=== PATIENT | male | born 1975 | race Hispanic/Latino ===

== ENCOUNTER 2021-01-19 18:10 | Inpatient (IN) | payer MEDICAID, SELFPAY ==
--- NOTE | ~2021-01-19 | NM_ITS ---
EXAMINATION: NM mariah stress w perfusion DATE: 01/26/2021 12:00 INDICATION: Non-ST elevation myocardial infarction. TECHNIQUE: Rest images were obtained following intravenous administration of 9 mCi Tc99m tetrofosmin (Myoview). The patient was infused intravenously with Lexiscan (regadenoson). Then, 28 mCi Tc99m tetr ofosmin (Myoview) was administered intravenously, and stress images were obtained. Data was reconstru cted into short axis and horizontal and vertical long axis SPECT images. Gated SPECT images were also obtained. COMPARISON: CT abdomen and pelvis 01/19/2021 FINDINGS: There is a large, severe, fixed perfusion defect involving apical lateral and mid to basal anterolateral and inferolateral segments, consistent with infarct. No reversible component to suggest ischemia. There is no segmental wall motion abnormality. Left ventricular ejection fraction measur es 45%. IMPRESSION: 1. Large area of severe infarct involving apical lateral and mid to basal anterolateral and inferolat eral segments of left ventricle. 2. Left ventricular ejection fraction measuring 45%. Reviewed, dictated and finalized at location A. IMPRESSION: 1. Large area of severe infarct involving apical lateral and mid to basal anter olateral and inferolateral segments of left ventricle. 2. Left ventricular ejection fraction measuring 45%.
--- NOTE | ~2021-01-19 | XR_ITS ---
EXAMINATION: XR chest 2V DATE: 01/21/2021 09:29 INDICATION: Shortness of breath. TECHNIQUE: Frontal and lateral views of the chest were obtained. COMPARISON: CT abdomen and pelvis 01/19/2021 FINDINGS: There are moderate-sized pleural effusions. There are airspace opacities in all lung zones bilaterally with a perihilar and dependent predominance. No pneumothorax. The heart size is normal. IMPRESSION: 1. Moderate-sized pleural effusions. 2. Diffuse lung disease, likely a combination of atelectasis and pulmonary edema versus pneumonia. Reviewed, dictated and finalized at location A. IMPRESSION: 1. Moderate-sized pleural effusions. 2. Diffuse lung disease, likely a combination of atelectasis and pulmonary albin a versus pneumonia.
--- NOTE | ~2021-01-19 | US_ITS ---
EXAMINATION: US abdomen limited EXAM DATE: 01/31/2021 12:22 INDICATION: Abdominal pain, STAT paracentesis requested. TECHNIQUE: Multiple grayscale and Doppler images of the 4 abdominal quadrants were obtained (by a marcelina hnologist who performed the scan) and subsequently reviewed. There is no prior study for comparison. FINDINGS: No ascites demonstrated. IMPRESSION: No ascites demonstrated. Reviewed, dictated and finalized at location A. IMPRESSION: No ascites demonstrated.
--- NOTE | ~2021-01-19 | XR_ITS ---
EXAMINATION: XR chest 2V EXAM DATE: 01/31/2021 12:26 INDICATION: Shortness of breath. TECHNIQUE: Frontal and lateral projections of the chest obtained and reviewed. Comparison is made to prior examination from 01/24/2021. FINDINGS: Cardiomegaly and moderate bilateral subpulmonic pleural effusions not significantly change d. There is pulmonary vascular congestion, but interval improvement in the previously seen pulmonary edema. There is no pneumothorax suspected. There are no osseous abnormalities identified. IMPRESSION: 1. Cardiomegaly, congestion and mild pulmonary edema with interval improvement. 2. Moderate subpulmonic pleural effusions unchanged. Reviewed, dictated and finalized at location A. IMPRESSION: 1. Cardiomegaly, congestion and mild pulmonary edema with interval improvement . 2. Moderate subpulmonic pleural effusions unchanged.
--- NOTE | ~2021-01-19 | US_ITS ---
EXAMINATION: US biopsy renal DATE: 01/29/2021 13:26 INDICATION: Proteinuria. Elevated creatinine. Positive ROE. TECHNIQUE: The procedure including the risks, benefits, and alternatives was discussed with the patie nt via an vice president sales and marketing. Risks discussed included bleeding. The patient understood the risks and agreed to proceed. A timeout was performed to verify the patient's name, date of , and procedure to be performed. The skin overlying the left kidney was prepped and draped in usual sterile fashion. Anesthetic was administered with 1% lidocaine subcutaneously. An 18 gauge core biopsy needle was the n used to obtain 6 core biopsy specimens under continuous sonographic guidance. The entry site was cl eaned and dressed. There were no immediate complications. FINDINGS: Ultrasound images demonstrate the needle in the kidney. IMPRESSION: 1. Ultrasound-guided random left kidney core needle biopsy. Reviewed, dictated and finalized at location A.
--- NOTE | ~2021-01-19 | NM_ITS ---
EXAMINATION: NM GI bleeding DATE: 01/31/2021 20:36 INDICATION: Lower gastrointestinal bleed TECHNIQUE: 19.55 mCi Tc 99m in vitro labeled red cells administered intravenously. Scintigraphic maddie ges of the abdomen were obtained through hour. FINDINGS: No pattern of abnormal activity is seen in the abdomen or pelvis to suggest gastrointestina l hemorrhage. IMPRESSION: 1. No scintigraphic evidence for active gastrointestinal bleeding. Reviewed, dictated and finalized at location A.
--- NOTE | ~2021-01-19 | XR_ITS ---
EXAMINATION: XR chest 1V portable EXAM DATE: 01/24/2021 05:32 INDICATION: Follow-up pleural effusions pulmonary edema. TECHNIQUE: Portable AP frontal chest x-ray was obtained. Comparison is made to prior examination from 01/21/2021. FINDINGS: There is mild cardiomegaly. There are probably small to moderate bilateral subpulmonic pleu ral effusions with adjacent atelectasis. Diffuse bilateral airspace disease, edema and/or pneumonia, with progression compared to previous examination. No pneumothorax. There are no osseous abnormalitie s identified. IMPRESSION: Progression of subpulmonic pleural effusions and adjacent atelectasis with superimposed d iffuse bilateral edema and/or pneumonia. Reviewed, dictated and finalized at location A. IMPRESSION: Progression of subpulmonic pleural effusions and adjacent atelectas is with superimposed diffuse bilateral edema and/or pneumonia.
--- NOTE | ~2021-01-19 | US_ITS ---
EXAMINATION: US renal BI EXAM DATE: 01/21/2021 09:42 INDICATION: Elevated creatinine. TECHNIQUE: Multiple grayscale and Doppler images of the kidneys were obtained (by a technologist who performed the scan) and subsequently reviewed. There is no prior study for comparison. FINDINGS: Right kidney: There is normal contour and echogenicity. It measures 10.1 x 4.8 x 5.5 centimeters. T here are no focal renal lesions identified. There is no hydronephrosis. Left kidney: There is normal contour and echogenicity. It measures 11.9 x 5.3 x 7.3 centimeters. Th ere are no focal renal lesions identified. There is no hydronephrosis. Bladder unremarkable. Bilateral pleural effusions noted. IMPRESSION: 1. Sonographically unremarkable kidneys. 2. Bilateral pleural effusions. Reviewed, dictated and finalized at location B.
--- NOTE | ~2021-01-19 | CT_ITS ---
EXAMINATION: CT abdomen pelvis wo con EXAM DATE: 01/19/2021 22:09 INDICATION: Lower AP with diarrhea. TECHNIQUE: Spiral CT of the abdomen and pelvis was performed without contrast. Axial, coronal and s agittal images of the abdomen and pelvis were reviewed. The dose-length product (DLP) for this exami nation was 1364.44 mGy-cm. The exposure was tailored according to patient size (auto mA exposure con trol), and iterative reconstruction (ASIR) was used as additional dose reduction technique. There is no prior study for comparison. FINDINGS: Diffuse body wall edema, anasarca. There are moderate bilateral pleural effusions, right gr eater than left with multisegmental right lower lobe atelectasis and subsegmental left lower lobe ate lectasis. Some additional ill-defined bibasilar edema or pneumonia. The liver, spleen, adrenal glands and pancreas are unremarkable. The gallbladder is contracted but otherwise unremarkable. There is no nephrolithiasis or hydronephrosis. The prostate is unremarkable. The bladder is unremarkable. There is no retroperitoneal or pelvic lymphadenopathy. There is mild scattered arteriosclerotic dis ease. The appendix is normal. The stomach and small bowel are unremarkable. There is expected amount of c olonic stool. No free intraperitoneal gas. The interventricular septum is perceptible, suggesting patient is anemic. IMPRESSION: 1. No acute intra-abdominal findings. 2. Moderate pleural effusions right greater than left, adjacent atelectasis. Anasarca. 3. Superimposed ill-defined basilar edema or pneumonia. Reviewed, dictated and finalized at location B. IMPRESSION: 1. No acute intra-abdominal findings. 2. Moderate pleural effusions right greater than left, adjacent atelectasis. A nasarca. 3. Superimposed ill-defined basilar edema or pneumonia.
[2021-01-19 18:17] VITALS: BP 151/90; PULSE 79; RESP 22; TEMP 36.8; O2SAT 98
[2021-01-19 19:28] VITALS: BP 163/90; PULSE 78; RESP 36; O2SAT 100
[2021-01-19 19:38] LABS: Basophils Percent Auto 0.5 % (0.2-1.2); Eosinophils Absolute Auto 0.2 K/mm3 (0-0.3); Eosinophils Percent Auto 2.5 % (0-4.4); Hematocrit 29.9 % (42.0-52.0); Hemoglobin 8.8 g/dL (14.0-18.0); Immature Granulocyte Absolute 0.03 K/mm3 (0.00-0.031); Immature Granulocyte Percent A 0.4 % (0-0.5); Lymphocytes Absolute Auto 0.71 K/mm3 (0.9-3.2); Lymphocytes Percent Auto 8.5 % (18.3-44.2); Mean Corpuscular HGB Conc 29.4 g/dl (32-36); Mean Corpuscular Hemoglobin 26.5 pg (26-34); Mean Corpuscular Volume 90.1 fl (80-100); Mean Platelet Volume 11.2 fl (7.4-10.4); Monocytes Absolute Auto 0.5 K/mm3 (0.1-0.6); Monocytes Percent Auto 5.6 % (2.6-8.5); Neutrophils Absolute Auto 6.9 K/mm3 (1.3-6.7); Neutrophils Percent Auto 82.5 % (45.5-73.1); Platelet Count Result 361 k/mm3 (150-375); Red Blood Count 3.32 M/mm3 (4.6-6.20); Red Cell Distribution Width 14.1 % (11.5-14.5); White Blood Count 8.3 K/mm3 (4.5-10.0)
[2021-01-19 19:47] LABS: Alanine Aminotransferase 56 U/L (4-50); Albumin Level 2.7 g/dL (3.5-5.1); Alkaline Phosphatase 149 U/L (38-126); Anion Gap 6 mmol/L (8-16); Aspartate Amino Transferase 69 U/L (17-59); Bilirubin,Total < 0.1 mg/dL (0.2-1.3); Blood Urea Nitrogen 50 mg/dL (9-20); Calcium 8.2 mg/dL (8.4-10.2); Carbon Dioxide 19 mmol/L (22-30); Chloride 117 mmol/L (98-107); Estimated CRCL calculation 31 ml/min; Estimated Glomerular Filt Rate 22; Glucose 118 mg/dL (75-110); Lipase 161 U/L (23-300); Potassium 5.8 mmol/L (3.4-5.0); Sodium 142 mmol/L (137-145)
[2021-01-19 19:48] LABS: Platelet Estimate Adequate (Adequate)
[2021-01-19 19:49] LABS: Hypochromasia 1+ (NORMAL)
[2021-01-19] MEDS: SODIUM CHLORIDE 0.9% IV 1,000 ML 999 ML IV CONT ×2 (20:35→21:57)
[2021-01-19 20:50] LABS: Add Urine Microscopic? YES; Appearance Urine Cloudy (Clear); Bacteria Urine Trace /hpf; Bilirubin Urine Negative (Negative); Blood Urine 1+ (Negative); Color Urine Yellow (Yellow); Glucose Urine UA 3+ mg/dL (Negative); Ketones Urine Negative (Negative); Leukocyte Esterase Ur Negative LEU/UL (Negative); Mucus Urine Rare /lpf; Nitrate Urine Negative (Negative); Protein Urine 3+ mg/dL (Negative); Specific Grav Ur 1.022 (1.001-1.035); Squamous Epithelial Cell Urine Few /hpf (Few); Urobilinogen Urine Negative mg/dL (<2.0)
[2021-01-19 21:17] VITALS: BP 127/74; PULSE 69; RESP 23; O2SAT 100
--- NOTE | 2021-01-19 21:18 | ED.NAVMDI ---
HPI - Nausea/Vomiting/Diarrhea General Chief complaint: Nausea/Vomiting/Diarrhea Stated complaint: DIARRHEA Time Seen by Provider: 01/19/21 18:59 History of Present Illness HPI Narrative: Patient is a 45-year-old male who presents ER with diarrhea. Began today and has had 10 episodes of large-volume diarrhea. Reports it is dark in color. No fevers or chills or sweats. Denies nausea or vomiting. Patient has history of diabetes and recently moved to the area in the last year. He does not have a primary care physician here but has been receiving medications by mail from a physician in [place]. Patient reports due to his diarrhea he has become more on irritated around his buttock and his penis. He has some mild skin breakdown around his buttocks. Patient denies history of GI bleed. He reports he does not know what his creatinine level is and he has never had a discussion about potential dialysis. Related Data Home Medications Medication Instructions Recorded Confirmed glipizide 10 mg PO DAILY 01/19/21 01/20/21 metformin 1,000 mg PO BID 01/19/21 01/20/21 Allergies Allergy/AdvReac Type Severity Reaction Status Date / Time No Known Allergies Allergy Verified 01/19/21 20:35 Review of Systems Review of Systems: All systems reviewed & are unremarkable except as noted in HPI and below Constitutional: Constitutional: Denies chills, Denies fever(s) and Reports weakness ENT: Denies nasal congestion and Denies sore throat Cardiovascular: Cardiovascular: Denies chest pain, Denies rapid heart rate and Denies radiating jaw, neck or arm pain Respiratory: Respiratory: Denies cough, Denies dyspnea and Denies wheezing Gastrointestinal: Gastrointestinal: Denies abdominal pain, Reports diarrhea, Denies nausea and Denies vomiting Integumentary/Breasts: Skin/Breast: Reports erythema, Denies rash and Reports skin ulcer PMFSH Past Medical History Medical History (Updated 01/19/21 @ 21:55 by Christopher Kasper MD) Diabetes Surgical History Surgical History (Updated 01/20/21 @ 05:10 by Christopher Kasper MD) Below knee amputation Social History Social History (Updated 01/19/21 @ 21:28 by Christopher Kasper MD) Social History: Lives at home with family. Smoking status: Never smoker Alcohol intake: unknown Substance use: never Substance use type: does not use Gender identity (if verbalized by the patient): Male Spiritual care concerns: No Exam Narrative: Exam Narrative: GENERAL: Mildly ill-appearing, well-nourished, and in no acute distress. HEAD: Normocephalic, atraumatic. EYES: PERRL and EOMI. CHEST: Clear to auscultation. No respiratory distress. HEART: Regular rate and rhythm. Normal peripheral pulses. ABDOMEN: Soft, nontender, nondistended. Heme + stool. EXTREMITIES: Right leg with bka, normal ROM BUE. SKIN: Warm, dry, skin breakdown of buttock with superficial ulcerations. Extends into perineal region. NEURO: Alert and oriented x3. PSYCH: Normal mood and affect. Course Course Emergency Course: Accepted to hospitalist service. Will give an additional liter of IV fluid. Hospitalist request CT of the abdomen pelvis. Vital Signs Vital signs: Vital Signs Temperature 98.2 F 01/19/21 18:17 Pulse Rate 79 01/19/21 18:17 Respiratory Rate 22 H 01/19/21 18:17 Blood Pressure 151/90 H 01/19/21 18:17 Pulse Oximetry 98 01/19/21 18:17 Temperature 96.4 F L 01/20/21 04:00 Pulse Rate 78 01/20/21 04:00 Respiratory Rate 24 H 01/20/21 04:00 Blood Pressure 131/68 01/20/21 04:00 Pulse Oximetry 100 01/20/21 04:00 MDM - Nausea/Vomiting/Diarrhea Lab Data Result diagrams: 01/19/21 19:29 01/19/21 19:29 Labs: Lab Results 01/19/21 01/19/21 01/19/21 Range/Units 19:29 19:29 20:38 WBC 8.3 (4.5-10.0) K/mm3 RBC 3.32 L (4.6-6.20) M/mm3 Hgb 8.8 L (14.0-18.0) g/dL Hct 29.9 L (42.0-52.0) % MCV 90.1 (80-100) fl MCH 26.5 (26-34) pg
--- NOTE | 2021-01-19 21:53 | ECG_ITS ---
Measurements Intervals [place] Rate: 73 P: 17 DE: 139 QRS: 10 QRSD: 97 T: 134 QT: 418 QTc: 464 Interpretive Statements SINUS RHYTHM ST-T WAVE ABNORMALITY IN LAT/HIGH LAT LEADS- CONSIDER ISCHEMIA ABNORMAL ECG Electronically Signed On 01-20-2021 6:05:07 CDT by Reji Dasilva D.O.
[2021-01-19 22:38] VITALS: BP 150/89; PULSE 73; RESP 28; O2SAT 99
[2021-01-19 22:53] VITALS: O2SAT 100
[2021-01-19 23:02] LABS: Lactic Acid Reflex 1.3 mmol/L (0.7-2.1)
[2021-01-20] VITALS (12 sets, daily range): BP systolic 131–162; BP diastolic 68–96; PULSE 47–89; RESP 18–32; TEMP 35.8–36.5; O2SAT 98–100; BMI 28.5
--- NOTE | 2021-01-20 00:41 | PC.NURSE ---
Called 3rd Med/Surg to give report. Was informed that the nurse taking pt was in a room and will call back when they are available.
--- NOTE | 2021-01-20 01:13 | PC.NURSE ---
Birdie (pts niece and caregiver) PH: [phone]
[2021-01-20 05:42] LABS: Hematocrit 27.9 % (42.0-52.0); Hemoglobin 8.3 g/dL (14.0-18.0); Mean Corpuscular HGB Conc 29.7 g/dl (32-36); Mean Corpuscular Hemoglobin 26.9 pg (26-34); Mean Corpuscular Volume 90.3 fl (80-100); Mean Platelet Volume 11.3 fl (7.4-10.4); Platelet Count Result 304 k/mm3 (150-375); Red Blood Count 3.09 M/mm3 (4.6-6.20); White Blood Count 7.7 K/mm3 (4.5-10.0)
[2021-01-20 05:51] LABS: Anion Gap 5 mmol/L (8-16); Blood Urea Nitrogen 47 mg/dL (9-20); Calcium 7.7 mg/dL (8.4-10.2); Carbon Dioxide 18 mmol/L (22-30); Chloride 120 mmol/L (98-107); Estimated CRCL calculation 32 ml/min; Estimated Glomerular Filt Rate 23; Glucose 92 mg/dL (75-110); Potassium 5.4 mmol/L (3.4-5.0); Sodium 143 mmol/L (137-145)
[2021-01-20 08:53] LABS: Glucose Point of Care 84 mg/dl (65-105)
[2021-01-20] MEDS: glipiZIDE XL 2.5 MG TAB.ER.24 PO (09:43)
[2021-01-20 13:09] LABS: Glucose Point of Care 107 mg/dl (65-105)
--- NOTE | 2021-01-20 16:09 | PM.IMHP ---
H&P: HPI History of Present Illness Date/Time: 01/20/21 16:09 Chief Complaint: Nausea vomiting and diarrhea Narrative: 45-year-old male who presents ER with diarrhea. Began today and has had 10 episodes of large-volume diarrhea. Reports it is dark in color. No fevers or chills or sweats. Poor historian Yakut speaking. Pt diarrhea has caused irritation around his buttocks. And skin break down. Pt leg looks like it is weeping, pt has a history of DM. Pt has history of amputation awaiting prosthesis from [place]. Pt lives local. Review of Systems Review of Systems: All systems reviewed & are unremarkable except as noted in HPI and below PMFSH Past Medical History Medical History (Updated 01/20/21 @ 16:31 by Leonie Jenkins MD) Diabetes Surgical History Surgical History (Updated 01/20/21 @ 16:24 by Leonie Jenkins MD) Below knee amputation Social History Social History Social History: Lives at home with family. Smoking status: Never smoker Alcohol intake: unknown Substance use: never Substance use type: does not use Gender identity (if verbalized by the patient): Male Spiritual care concerns: No Meds Home Medications and Allergies Home Medications Medication Instructions Recorded Confirmed Type glipizide 10 mg PO DAILY 01/19/21 01/20/21 History metformin 1,000 mg PO BID 01/19/21 01/20/21 History Allergies Allergy/AdvReac Type Severity Reaction Status Date / Time No Known Allergies Allergy Verified 01/19/21 20:35 Vital Signs Vital Signs - 24 hr 01/19/21 18:17 01/19/21 19:28 01/19/21 21:17 Temperature 36.8 C Pulse Rate 79 78 69 Respiratory Rate 22 H 36 H 23 H Blood Pressure 151/90 H 163/90 H 127/74 Pulse Oximetry 98 100 100 01/19/21 22:38 01/19/21 22:53 01/20/21 00:00 Temperature Pulse Rate 73 75 Respiratory Rate 28 H Blood Pressure 150/89 H Pulse Oximetry 99 100 01/20/21 00:14 01/20/21 01:36 01/20/21 01:45 Temperature 36.3 C L Pulse Rate 84 79 82 Respiratory Rate 32 H 25 H 24 H Blood Pressure 152/91 H 159/94 H 142/91 H Pulse Oximetry 100 100 98 01/20/21 04:00 01/20/21 08:00 01/20/21 09:19 Temperature 35.8 C L Pulse Rate 74 75 Respiratory Rate 24 H Blood Pressure 131/68 Pulse Oximetry 100 100 01/20/21 12:00 01/20/21 14:00 Temperature 36.5 C Pulse Rate 84 87 Respiratory Rate 24 H Blood Pressure 162/96 H Pulse Oximetry 99 Exam Const: General: acute distress and tired appearing HENMT: Head: normocephalic Eyes: General: appearance normal, both eyes and all related structures Pupils: Equal, round and reactive pupils present Neck: Neck: supple Chest: Chest palpation & inspection: normal inspection of the chest Resp: Effort & Inspection: normal respiratory effort Auscultation: clear to auscultation bilaterally Cardio: Jugular venous distension: no JVD Rhythm: regular rhythm Heart sounds: S1 normal heart sound present and S2 normal heart sound present GI: Inspection: normal to inspection GI Palp: No abdominal tenderness, Yes Soft to palpation and No Tenderness to palpation present (GI) Auscultation: normal bowel sounds : General: Yes no CVA tenderness Back/Spine/Pelvis: Back: no CVA tenderness Skin: General skin exam: normal color Neuro: Cranial nerves: Yes CN's II-XII intact bilaterally and Yes Equal, round and reactive pupils present Cognition (Neuro): normal cognition Speech: normal speech Motor exam (neuro): 5/5 motor strength present throughout Extrem: General: other (R leg amputation, L leg weeping ) Psych: Appearance: grossly normal Mental Status: mental status grossly normal H&P: Results Labs Labs: Short CBC 01/19/21 01/20/21 Range/Units 19:29 05:34 WBC 8.3 7.7 (4.5-10.0) K/mm3 Hgb 8.8 L 8.3 L (14.0-18.0) g/dL Hct 29.9 L 27.9 L (42.0-52.0) % Plt Count 361 304 (150-375) k/mm3 BMP
[2021-01-20 17:08] LABS: Glucose Point of Care 120 mg/dl (65-105)
[2021-01-20] MEDS: SODIUM CHLORIDE 0.9% IV 1,000 ML 100 ML IV CONT (17:14)
[2021-01-20] MEDS: SODIUM POLYSTYRENE SULFONONATE 15 GM/60 ML BTL PO (17:31)
[2021-01-20] MEDS: PANTOPRAZOLE 40 MG TABLET PO (18:23)
[2021-01-20 20:47] LABS: Anion Gap 4 mmol/L (8-16); Blood Urea Nitrogen 50 mg/dL (9-20); Calcium 7.7 mg/dL (8.4-10.2); Carbon Dioxide 18 mmol/L (22-30); Chloride 118 mmol/L (98-107); Estimated CRCL calculation 32 ml/min; Estimated Glomerular Filt Rate 23; Glucose 109 mg/dL (75-110); Potassium 5.3 mmol/L (3.4-5.0); Sodium 140 mmol/L (137-145)
[2021-01-21] VITALS (15 sets, daily range): BP systolic 142–153; BP diastolic 80–96; PULSE 75–99; RESP 18–20; TEMP 35.9–36.6; O2SAT 98–100
[2021-01-21] MEDS: HYDROcodone/acetaminophen (*CRX) 5-325 MG TABLET 1 TAB PO ×2 (00:56→18:13)
[2021-01-21 01:19] LABS: Glucose Point of Care 61 mg/dl (65-105)
[2021-01-21 02:55] LABS: Glucose Point of Care 67 mg/dl (65-105)
[2021-01-21 06:07] LABS: Hematocrit 26.6 % (42.0-52.0); Mean Corpuscular HGB Conc 30.1 g/dl (32-36); Mean Corpuscular Volume 89.9 fl (80-100); Mean Platelet Volume 11.2 fl (7.4-10.4); Platelet Count Result 326 k/mm3 (150-375); Red Blood Count 2.96 M/mm3 (4.6-6.20); Red Cell Distribution Width 14.3 % (11.5-14.5); White Blood Count 8.6 K/mm3 (4.5-10.0)
[2021-01-21 06:29] LABS: Anion Gap 5 mmol/L (8-16); Blood Urea Nitrogen 48 mg/dL (9-20); Calcium 7.8 mg/dL (8.4-10.2); Carbon Dioxide 18 mmol/L (22-30); Chloride 119 mmol/L (98-107); Estimated CRCL calculation 32 ml/min; Estimated Glomerular Filt Rate 23; Glucose 59 mg/dL (75-110); Potassium 5.2 mmol/L (3.4-5.0); Sodium 142 mmol/L (137-145)
--- NOTE | 2021-01-21 06:39 | PC.NURSE ---
Addendum entered by Terrie Blanco RN 01/21/21 06:41: two 4oz of O.J. w/ 1 pk sugar via. Pt drank all without difficulty. Will continue to monitor. notified and currently awaiting response. Original Note: 0530: Lab notified SN w/ patients BS level of 59 mg/dl. Pt given 2 4o
--- NOTE | 2021-01-21 06:48 | PC.NURSE ---
0645: Dr. Dumas returned call w/ orders to check BS again within the next hour, endorse to AM shift and notify him w/ results. SN verbalized understanding and agreed to comply via read back orders .
[2021-01-21 07:13] LABS: Glucose Point of Care 68 mg/dl (65-105)
--- NOTE | 2021-01-21 07:22 | PM.CNNEP ---
Assessment and Plan Assessment and plan (1) Abnormal results of kidney function studies: Code(s): R94.4 - Abnormal results of kidney function studies Status: Acute Assessment and Plan: This patient has an elevated creatinine. His creatinine is 3. It does not change since he came in. We have no past history on this patient. He says though that he has never been told that his kidneys were problem. He has never seen a club concierge in the past. It does not have any urinary symptoms. He does has significant comorbid conditions including the diabetes with the amputations. He also has lots of protein in the urine, 3+ in a concentrated urine. So he may have significant amounts of proteinuria. So he could have diabetic kidney. He has vascular disease as well status post [id number] amputation. It is possibly he might have some vascular disease in the kidneys as well. He has cellulitis as well so could have an acute condition from the cellulitis. He could have obstruction, interstitial nephritis, glomerulonephritis etc but I think these are less likely in this clinical scenario. Will check a renal ultrasound, urine electrolytes and eosinophils, and also check serology and immunofixation. We will try to get labs from the [facility] he goes to. (2) Shortness of breath: Code(s): R06.02 - Shortness of breath Status: Acute Assessment and Plan: The patient has shortness of breath. He also has some chest pain occasionally. He does not have any now.. Will notify Dr. Price. Will check a chest x-ray. Will check some troponins. EKG was already done in the emergency room but will repeat 1 today. The shortness of breath could be fluid or it could be from his acidosis. I will stop the fluids and give a dose of bumex. He may need more diuretics if his chest x-ray shows fluid. Depending on the results of the chest x-ray will decide whether to give diuretics or bicarb or both. A notified Dr. Price of his condition. (3) Cellulitis of leg: Code(s): L03.119 - Cellulitis of unspecified part of limb Status: Acute Assessment and Plan: He is on vancomycin for this. Will add cefepime as well. Will order blood cultures as well. (4) Buttock wound: Code(s): S31.809A - Unspecified open wound of unspecified buttock, initial encounter Status: Acute Assessment and Plan: Local care (5) Gastroenteritis: Code(s): K52.9 - Noninfective gastroenteritis and colitis, unspecified Status: Acute Assessment and Plan: He has diarrhea. Dr. May is evaluating this. (6) Anemia: Code(s): D64.9 - Anemia, unspecified Status: Acute Assessment and Plan: Will check stool guaiacs, iron levels, and also give him some Epogen. (7) Metabolic acidosis: Code(s): E87.2 - Acidosis Status: Acute Assessment and Plan: Bicarbonate level is a little bit low the. This could be due to diarrhea or from type 4 RTA from his diabetes. History of Present Illness Reason for Consult Consult date: 01/21/21 Chief Complaint Chief complaint: Hyperkalemia, Renal Failure,Enteritis,Occult GI Bl History of Present Illness Narrative: The patient speaks Surinamese only. I used an per diem interpreter to get this information from him. Kari is a very pleasant 45-year-old gentleman who has multiple medical conditions including diabetes, peripheral vascular disease, right iixac-fbc-galk amputation, left great toe amputation, who came to the ER because of diarrhea. He had large amounts of stools. He does not have any belly pain. No fevers or chills. Is also short of breath. He has been this way for about a week. He is lying flat in bed with some shortness of breath at rest. He has a tiny bit of chest pain he says occasionally. He had some in the emergency room apparently. He does not have a cough. He has some swelling for about a week as well.
--- NOTE | 2021-01-21 07:42 | ECG_ITS ---
Measurements Intervals [place] Rate: 79 P: 21 IN: 140 QRS: 3 QRSD: 91 T: 151 QT: 380 QTc: 436 Interpretive Statements SINUS RHYTHM DELAYED PRECORDIAL R/S TRANSITION ST-T WAVE ABNORMALITY IN LAT/HIGH LAT LEADS- CONSIDER ISCHEMIA ABNORMAL ECG Electronically Signed On 01-21-2021 8:55:31 CDT by Reji Dasilva D.O.
--- NOTE | 2021-01-21 08:26 | PC.NURSE ---
0645: Blood glucose repeat at bedside w/ 68 mg/dl results. No s/s of hypoglyemia, alert and awake in no apparent distress. Endorsed to AM nurse.
[2021-01-21] MEDS: PANTOPRAZOLE 40 MG TABLET PO (08:34)
[2021-01-21] MEDS: SODIUM BICARBONATE TAB 650 MG TABLET 1300 MG PO ×2 (08:34→18:07)
[2021-01-21] MEDS: glipiZIDE XL 2.5 MG TAB.ER.24 PO (08:34)
[2021-01-21 08:44] LABS: Immature Reticulocyte Fraction 19.9 % (3.0-15.9); Reticulocyte Hemoglobin Conten 25.2 pg (28.2-35.7); Reticulocyte Percent 1.64 % (0.7-4.3); Reticulocytes Absolute 0.05 B/L (32.2-175.7)
[2021-01-21 08:48] LABS: Glucose Point of Care 73 mg/dl (65-105)
[2021-01-21 08:55] LABS: Creatine Kinase 249 U/L (55-170)
[2021-01-21 09:04] LABS: Complement C3 110 mg/dL (88-165)
[2021-01-21 10:09] LABS: Iron < 10 ug/dL (49-181)
[2021-01-21 11:16] LABS: Percent Iron Saturation < 5 % (20-50)
[2021-01-21 11:52] LABS: Parathyroid Intact 280.3 pg/mL (7.5-53.5)
--- NOTE | 2021-01-21 11:55 | PC.NURSE ---
Transfer from [address] [place] [address] to [facility] at 1140.
--- NOTE | 2021-01-21 12:28 | WPDINFPN2 ---
Progress Note: A&P Assessment and Plan (1) Gastroenteritis: Code(s): K52.9 - Noninfective gastroenteritis and colitis, unspecified Status: Acute Assessment and Plan: 1. Diarrhea, viral or non infectious 2. LLE ulcers due to #3, he has no cellulitis 3. ASPVD REC Local skin care, no systemic antibiotics, evaluation of diarrhea is ongoing. Call if Qs Subjective Date/time seen: 01/21/21 12:28 Objective Data Vital Signs Vital Signs: Vital Signs - 24 hr 01/20/21 14:00 01/20/21 16:00 01/20/21 20:00 Temperature 36.5 C Pulse Rate 87 83 47 L Respiratory Rate 24 H Blood Pressure 162/96 H Pulse Oximetry 99 01/20/21 22:00 01/21/21 00:00 01/21/21 04:00 Temperature 35.8 C L Pulse Rate 89 89 85 Respiratory Rate 18 Blood Pressure 160/90 H Pulse Oximetry 100 01/21/21 06:00 01/21/21 08:00 Temperature 36.6 C Pulse Rate 85 81 Respiratory Rate 20 Blood Pressure 153/82 H Pulse Oximetry 98 100 Intake/Output Intake/Output: Intake & Output 01/18/21 01/19/21 01/20/21 01/21/21 23:59 23:59 23:59 23:59 Intake Total 1999 1460 360 Output Total 600 Balance 1999 860 360 Meds/Results Medications: Active Medications Generic Name Dose Route Start Last Admin Trade Name Freq PRN Reason Stop Dose Admin Acetaminophen 650 mg 01/19/21 23:43 Acetaminophen 325 Mg Tablet PO Q4H PRN Mild Pain (1-3) or Fever Hydrocodone Bitart/Acetaminophen 1 tab 01/19/21 23:43 01/21/21 00:56 Hydrocodone/Acetaminophen (*Crx) 5-325 Mg Tablet PO 1 tab Q4H PRN Administration Pain Rated 4-6 Dextrose 12.5 gm 01/20/21 05:23 Dextrose 50% 25 Gm/50 Ml Syringe IV PUSH PRN PRN Hypoglycemia Protocol Epoetin Brayan-epbx 10,000 units 01/21/21 08:00 Epoetin Brayan-Epbx 10,000 Units/Ml Vial SUB-Q MOWEFR GEE Glipizide 2.5 mg 01/20/21 08:00 01/21/21 08:34 Glipizide Xl 2.5 Mg Tab.Er.24 PO 2.5 mg DAILY@0800 [facility] Administration Glucagon 1 mg 01/20/21 05:23 Glucagon For Inj 1 Mg Vial IM PRN PRN Hypoglycemia Protocol Glucose 15 gm 01/20/21 05:23 Glucose Oral Gel 15 Gm Of Glucse In 37.5 Gm Tube PO PRN PRN Hypoglycemia Protocol Dextrose 1,000 mls @ 100 mls/hr 01/20/21 05:23 Dextrose 5% 1,000 Ml IVPB PRN PRN Hypoglycemia Protocol Insulin Aspart 3 - 6 units 01/20/21 08:00 01/21/21 08:35 Insulin Aspart (*Bkc) 100 Units/Ml SUB-Q Not Given TIDWM [facility] Protocol Miconazole Nitrate 1 applic 01/21/21 09:00 Miconazole 2% Antifungal Ointment 56 Gm TOPICAL Q12HR [facility] Morphine Sulfate 4 mg 01/19/21 23:43 Morphine Sulfate (*Crx) 4 Mg/Ml Inj IV PUSH Q2H PRN Pain Rated 7-10 Ondansetron HCl 4 mg 01/19/21 23:43 Ondansetron Inj 4 Mg/2 Ml Vial IV PUSH Q4H PRN Nausea Pantoprazole Sodium 40 mg 01/21/21 09:00 01/21/21 08:34 Pantoprazole 40 Mg Tablet PO 40 mg QAM [facility] Administration Silver Nitrate 1 applic 01/21/21 09:00 Silvergel (Elta) 45 Ml TOPICAL DAILY [facility] Sodium Bicarbonate 1,300 mg 01/21/21 09:00 01/21/21 08:34 Sodium Bicarbonate Tab 650 Mg Tablet PO 1,300 mg BID GEE Administration Radiology Results: ITS Impressions Abdomen/Pelvis CT 01/20/21 08:22 IMPRESSION: 1. No acute intra-abdominal findings. 2. Moderate pleural effusions right greater than left, adjacent atelectasis. Anasarca. 3. Superimposed ill-defined basilar edema or pneumonia. Chest X-Ray 01/21/21 09:31 IMPRESSION: 1. Moderate-sized pleural effusions. 2. Diffuse lung disease, likely a combination of atelectasis and pulmonary edema versus pneumonia. Renal Ultrasound 01/21/21 09:53 IMPRESSION: 1. Sonographically unremarkable kidneys. 2. Bilateral pleural effusions. Labs Labs: Laboratory Results - last 24 hr 01/20/21 01/20/2101/20/21 12:19 17:05 20:29 WBC RBC Hgb Hct MCV [facility]
[2021-01-21 12:44] LABS: Glucose Point of Care 81 mg/dl (65-105)
--- NOTE | 2021-01-21 14:37 | CONS_ITS ---
DATE OF CONSULTATION: 01/21/2021 REASON FOR CONSULTATION: Left leg ulcers. HISTORY OF PRESENT ILLNESS: A 45-year-old male who speaks little [place] African. He was admitted through the emergency room 2 days ago with acute onset of multiple loose or liquid bowel movements. His left leg exam was abnormal and apparently for that reason alone, he was given cefepime and vancomycin and remains on those now. His hospital course has been complicated by renal insufficiency though the duration is unavailable. He denies any pain to me in the abdomen, and there has been no nausea nor vomiting while here. ALLERGIES: NONE KNOWN. HABITS: No tobacco, illicit drugs, or alcohol. PRESENT MEDICATIONS: No immunosuppressants. Home medication list reviewed. PAST MEDICAL HISTORY: Diabetes and previous right BKA for peripheral vascular disease. REVIEW OF SYSTEMS: A 5-point review attempted, not obtainable from the patient. SOCIAL HISTORY: He apparently is visiting from [place]. No family at the bedside. FAMILY HISTORY: Not pertinent to his present illness. PHYSICAL EXAMINATION: GENERAL: This is a middle-aged male who appears his actual age. No acute distress. VITAL SIGNS: He has been afebrile since arrival, 85, 20, 153/82, 98% on room air. SKIN: Warm and dry. No rashes. EENT: The conjunctivae are normal. The oral mucosa is also normal. Teeth in good repair. NECK: No masses, thyromegaly, or meningismus. LUNGS: Clear to auscultation and percussion. CARDIAC: Regular rate and rhythm. No murmur, gallop, or rub. ABDOMEN: Nontender. No masses. No organomegaly EXTREMITIES: Right BKA and the stump is well healed. No erythema, tenderness, or warmth. On the left, he has hemosiderin deposition into the left nava resulting in darker skin color. He also has partial-thickness subcentimeter ulcers in the same area of the anterior distal leg. He has no tenderness, fluctuance, drainage nor warmth. LABORATORY DATA: Urine culture was group B strep. Wound cultures in process. No blood cultures collected. His white count was normal on arrival and again today, hemoglobin 8, platelets are 326. His BUN is 48, creatinine 3 identical to yesterday. Iron is low, TIBC low. His PTH is high. Urinalysis noted and does not suggest infection. RADIOLOGY: Abdomen and pelvic CT, pleural effusions and anasarca. Chest x-ray, pleural effusions and diffuse lung disease. Renal ultrasound normal. ASSESSMENT: 1. Diarrhea, appears abated. Consider viral gastroenteritis versus noninfectious causes. 2. Peripheral vascular disease with resulting skin ulcers. He has no cellulitis, no other soft tissue infection. 3. Renal insufficiency. RECOMMENDATIONS: 1. No further antibiotics. 2. Evaluation of the diarrhea already underway. I have no new suggestions. 3. Okay with me for discharge at your discretion. 4. Thank you very much for asking me to see him. NOEMI FALLON M.D. SLAB MILLER OPERATOR SLAB MILLER OPERATOR D I MT: Jennifer
[2021-01-21 14:38] LABS: Erythrocyte Sedimentation Rate > 140 mm/hr (0-20)
[2021-01-21] MEDS: BUMETANIDE INJ 1 MG/4 ML VIAL 2 MG IV PUSH (15:14)
[2021-01-21] MEDS: EPOETIN ALFA-EPBX 10,000 UNITS/ML VIAL 10000 UNITS SUB-Q (15:14)
[2021-01-21 17:34] LABS: Glucose Point of Care 81 mg/dl (65-105)
[2021-01-21] MEDS: SILVERGEL (ELTA) 45 ML 1 APPLIC TOPICAL (18:09)
--- NOTE | 2021-01-21 18:59 | PM.IMPN ---
Progress Note: A&P Assessment and Plan (1) NSTEMI (non-ST elevated myocardial infarction): Code(s): I21.4 - Non-ST elevation (NSTEMI) myocardial infarction Status: Acute (2) Shortness of breath: Code(s): R06.02 - Shortness of breath Status: Acute (3) Metabolic acidosis: Code(s): E87.2 - Acidosis Status: Acute (4) Abnormal results of kidney function studies: Code(s): R94.4 - Abnormal results of kidney function studies Status: Acute (5) Buttock wound: Code(s): S31.809A - Unspecified open wound of unspecified buttock, initial encounter Status: Acute (6) Below knee amputation: Code(s): S88.119A - Complete traumatic amputation at level between knee and ankle, unspecified lower leg, initial encounter Status: Acute (7) GLENN (acute kidney injury): Code(s): N17.9 - Acute kidney failure, unspecified Status: Acute (8) Diabetes: Code(s): E11.9 - Type 2 diabetes mellitus without complications Status: Acute (9) Gastroenteritis: Code(s): K52.9 - Noninfective gastroenteritis and colitis, unspecified Status: Acute (10) Acute hyperkalemia: Code(s): E87.5 - Hyperkalemia Status: Acute (11) Anemia: Code(s): D64.9 - Anemia, unspecified Status: Acute (12) Anasarca: Code(s): R60.1 - Generalized edema Status: Acute (13) Pleural effusion, bilateral: Code(s): J90 - Pleural effusion, not elsewhere classified Status: Acute (14) CHF (congestive heart failure): Code(s): I50.9 - Heart failure, unspecified Status: Acute Additional Plan Patient w elevated troponins Heparin drip Aspirin Beta-malik Consult cardiology Echocardiogram done 01/15/21 Continuous telemetry monitoring also found to be volume overloaded BNP Bumex 2 mg IV q.8 hours Metolazone 5 mg p.o. x1 Strict IsOs Fluid restriction Daily weights Seen by ID and cleared, no source of infection presently Patient is stable on 2 L nasal cannula saturating 97% but noticed to be dyspneic will continue aggressive diuresis and monitor may benefit from BiPAP send stool for cultures nephro, ID, and cardio consulted Time Spent With Patient Time with patient: Greater than 35 minutes Subjective Date/time seen: 01/21/21 18:59 Patient complains of shortness of breath denies other complaints, labs reviewed with nephrology and cardiology consulted for elevated troponin. pt denies cp at time of my visit Exam Narrative: Exam Narrative: GEN: NAD, cooperative , obese, [place] African speaking HEENT: NCAT, MMM, EOMI Neck: no JVD Heart: S1S2 RRR Lungs: Decreased sound transmission at bases of lungs Abd: soft, NT, ND, bowel sounds normoactive Ext: moves all, R BKA no cyanosis, no clubbing, multiple open lesions on wound left distal extremity without signs of active infection Neuro: Normal cognition, moves all extremities equally cranial nerves intact A&O x3 Psych: mood and affect congruent Objective Data Vital Signs Vital Signs: Vital Signs - 24 hr 01/20/21 20:00 01/20/21 22:00 01/21/21 00:00 Temperature 96.4 F L Pulse Rate 47 L 89 89 Respiratory Rate 18 Blood Pressure 160/90 H Pulse Oximetry 100 01/21/21 04:00 01/21/21 06:00 01/21/21 08:00 Temperature 97.8 F Pulse Rate 85 85 81 Respiratory Rate 20 Blood Pressure 153/82 H Pulse Oximetry 98 100 01/21/21 12:00 01/21/21 12:56 01/21/21 14:00 Temperature 97.6 F Pulse Rate 85 85 88 Respiratory Rate 20 Blood Pressure 150/96 H Pulse Oximetry 100 01/21/21 16:00 01/21/21 17:35 01/21/21 18:00 Temperature 96.6 F L Pulse Rate 92 90 99 Respiratory Rate 20 Blood Pressure 151/92 H Pulse Oximetry 99 Intake/Output Intake/Output: Intake & Output 01/18/21 01/19/21 01/20/21 01/21/21 23:59 23:59 23:59 23:59 Intake Total 1999 1460 1160 Output Total 600 1150 Balance 1999 860 10 Meds/Results Medications: Activ
--- NOTE | 2021-01-21 19:27 | ECG_ITS ---
Measurements Intervals [place] Rate: 87 P: 10 SC: 132 QRS: 6 QRSD: 94 T: 154 QT: 358 QTc: 432 Interpretive Statements SINUS RHYTHM ST-T WAVE ABNORMALITY IN HIGH LATERAL LEADS- CONSIDER ISCHEMIA BASELINE WANDER- II, AVF, V1-V6 ABNORMAL ECG Electronically Signed On 01-21-2021 21:55:10 CDT by Reji Dasilva D.O.
[2021-01-21 19:48] LABS: Basophils Percent Auto 0.4 % (0.2-1.2); Eosinophils Absolute Auto 0.2 K/mm3 (0-0.3); Eosinophils Percent Auto 2.2 % (0-4.4); Hematocrit 26.6 % (42.0-52.0); Hemoglobin 7.8 g/dL (14.0-18.0); Immature Granulocyte Absolute 0.05 K/mm3 (0.00-0.031); Immature Granulocyte Percent A 0.5 % (0-0.5); Lymphocytes Absolute Auto 0.89 K/mm3 (0.9-3.2); Lymphocytes Percent Auto 9.2 % (18.3-44.2); Mean Corpuscular HGB Conc 29.3 g/dl (32-36); Mean Corpuscular Hemoglobin 26.8 pg (26-34); Mean Corpuscular Volume 91.4 fl (80-100); Mean Platelet Volume 11.2 fl (7.4-10.4); Monocytes Percent Auto 10.7 % (2.6-8.5); Neutrophils Absolute Auto 7.5 K/mm3 (1.3-6.7); Nucleated Red Blood Cells Perc 0.3 % (0.0-0.2); Platelet Count Result 321 k/mm3 (150-375); Red Blood Count 2.91 M/mm3 (4.6-6.20); Red Cell Distribution Width 14.2 % (11.5-14.5); White Blood Count 9.7 K/mm3 (4.5-10.0)
[2021-01-21 19:53] LABS: Glucose Point of Care 85 mg/dl (65-105)
[2021-01-21 19:58] LABS: INR 1.3; Prothrombin Time 16.5 Seconds (11.1-14.7)
[2021-01-21 19:59] LABS: Partial Thromboplastin Time 44.2 SECONDS (22.3-36.8)
[2021-01-21 20:04] LABS: Magnesium 2.5 mg/dL (1.6-2.3)
[2021-01-21 20:10] LABS: Platelet Estimate Adequate (Adequate)
[2021-01-21 20:11] LABS: Hypochromasia 1+ (NORMAL)
[2021-01-21 20:13] LABS: NT Pro B Type Natriuretic Pept > 35000 pg/mL (5-100)
[2021-01-21] MEDS: HEPARIN SODIUM 5,000 UNITS/ML VIAL 4000 UNITS IV PUSH (20:30)
[2021-01-21] MEDS: HEPARIN SOD/D5W 100 UNITS/ML 25,000 UNITS/250 ML BAG 10 UNITS IV CONT (20:30)
[2021-01-21] MEDS: BUMETANIDE INJ 2.5 MG/10 ML VIAL 2 MG IV PUSH (20:31)
[2021-01-21] MEDS: ASPIRIN 81 MG CHEWABLE TABLET 324 MG PO (20:31)
[2021-01-21] MEDS: METOPROLOL TARTRATE 6.25 MG TABLET PO (20:31)
[2021-01-21] MEDS: metOLazone 5 MG TABLET PO (20:31)
[2021-01-22] VITALS (16 sets, daily range): BP systolic 141–157; BP diastolic 77–92; PULSE 75–90; RESP 18–20; TEMP 36.4–36.8; O2SAT 100
--- NOTE | 2021-01-22 | ECHO_ITS ---
Patient Info Name: Kari Chacko Age: 45 years : 1975 Gender: Male Ht: 73 in Wt: 216 lbs BSA: 2.26 m2 HR: 79 bpm BP: 141 / 92 mmHg Heart Rhythm: Sinus Rhythm Exam Date: 01/22/2021 8:17 AM Exam Location: [facility] Patient Status: Inpatient Admit Date: 01/20/2021 Staff Ordering Physician: Jailyn Power MD Cms Expert: JUAN Attending Provider: Carole Meza DO Exam Type: CA echo doppler color flow Study Info Indications - NSTEMI Complete two-dimensional, color flow and Doppler transthoracic echocardiogram is performed. Summary 1. Complete two-dimensional, color flow and Doppler transthoracic echocardiogram is performed. 2. Left ventricular chamber dimension is mildly enlarged. 3. Left ventricular systolic function is mildly reduced, estimated at 40-45%. 4. There is mildly increased left ventricular wall thickness. 5. The left ventricular diastolic function is grade II diastolic dysfunction. 6. Left atrial chamber dimension is mildly enlarged. 7. There is severe mitral valve regurgitation. 8. There is mild aortic valve sclerosis. 9. Left pleural effusion and ascites seen. Left Ventricle Left ventricular chamber dimension is mildly enlarged. Left ventricular systolic function is mildly reduced, estimated at 40-45%. There is mildly increased left ventricular wall thickness. Left ventricular septal wall motion is normal. The left ventricular diastolic function is grade II diastolic dysfunction. Right Ventricle Right ventricular chamber dimension is normal. Right ventricular systolic function is normal. Left Atria Left atrial chamber dimension is mildly enlarged. Right Atria Right atrial chamber dimension is normal. Atrial Septum Intact interatrial septum visualized by color flow imaging. Aortic Valve The aortic valve is trileaflet. There is mild aortic valve sclerosis. There is no aortic valve stenosis. There is no aortic valve regurgitation. Pulmonic Valve The pulmonic valve is normal. There is no pulmonic valve stenosis. There is no pulmonic regurgitation. Mitral Valve The mitral valve has normal leaflets. There is no mitral valve stenosis. There is severe mitral valve regurgitation. Tricuspid Valve The tricuspid valve leaflets are normal. There is no significant tricuspid valve stenosis. There is no tricuspid valve regurgitation. Pericardium/Pleural The pericardium appears normal. There is trivial pericardial effusion. Inferior Vena Cava Normal inferior vena cava with >50% collapse upon inspiration consistent with normal right atrial pressure, 5 mmHg. Aorta The aortic root size at the sinus of Valsalva is normal. The prox ascending aorta size is normal. Tricuspid Valve Name Value Normal Estimated PAP/RSVP RA Pressure 5 mmHg <=5 Report Signatures
[2021-01-22 00:25] LABS: Hematocrit 28.3 % (42.0-52.0); Hemoglobin 8.2 g/dL (14.0-18.0)
[2021-01-22 02:03] LABS: Sodium Urine Random 88 meq/L
[2021-01-22 03:03] LABS: Basophils Percent Auto 0.5 % (0.2-1.2); Eosinophils Absolute Auto 0.4 K/mm3 (0-0.3); Eosinophils Percent Auto 4.9 % (0-4.4); Hematocrit 26.9 % (42.0-52.0); Hemoglobin 7.8 g/dL (14.0-18.0); Immature Granulocyte Absolute 0.03 K/mm3 (0.00-0.031); Immature Granulocyte Percent A 0.4 % (0-0.5); Lymphocytes Absolute Auto 1.02 K/mm3 (0.9-3.2); Lymphocytes Percent Auto 12.1 % (18.3-44.2); Mean Corpuscular Hemoglobin 26.6 pg (26-34); Mean Corpuscular Volume 91.8 fl (80-100); Mean Platelet Volume 11.8 fl (7.4-10.4); Monocytes Absolute Auto 0.9 K/mm3 (0.1-0.6); Monocytes Percent Auto 10.4 % (2.6-8.5); Neutrophils Absolute Auto 6.1 K/mm3 (1.3-6.7); Neutrophils Percent Auto 71.7 % (45.5-73.1); Nucleated Red Blood Cells Perc 0.2 % (0.0-0.2); Platelet Count Result 276 k/mm3 (150-375); Red Blood Count 2.93 M/mm3 (4.6-6.20); Red Cell Distribution Width 14.4 % (11.5-14.5); White Blood Count 8.4 K/mm3 (4.5-10.0)
[2021-01-22 03:14] LABS: Partial Thromboplastin Time 44.1 SECONDS (22.3-36.8)
[2021-01-22 03:18] LABS: Albumin Level 2.4 g/dL (3.5-5.1); Anion Gap 5 mmol/L (8-16); Blood Urea Nitrogen 50 mg/dL (9-20); Calcium 8.1 mg/dL (8.4-10.2); Carbon Dioxide 20 mmol/L (22-30); Chloride 117 mmol/L (98-107); Estimated CRCL calculation 38 ml/min; Estimated Glomerular Filt Rate 24; Glucose 84 mg/dL (75-110); Phosphorus 4.9 mg/dL (2.5-4.5); Potassium 4.8 mmol/L (3.4-5.0); Sodium 142 mmol/L (137-145)
[2021-01-22] MEDS: HEPARIN SODIUM 5,000 UNITS/ML VIAL 4000 UNITS IV PUSH (03:33)
[2021-01-22 05:47] LABS: Total Protein Urine Random 317 mg/dL; Ur Ttl Prot Creatinine Ratio 8.57 mg/mg (0-0.20)
[2021-01-22] MEDS: BUMETANIDE INJ 2.5 MG/10 ML VIAL 2 MG IV PUSH ×3 (06:09→20:38)
[2021-01-22 07:51] LABS: Glucose Point of Care 68 mg/dl (65-105)
[2021-01-22 08:17] LABS: Glucose Point of Care 59 mg/dl (65-105)
[2021-01-22] MEDS: DEXTROSE 50% 25 GM/50 ML SYRINGE IV PUSH (08:27)
--- NOTE | 2021-01-22 09:16 | PM.CNCAR ---
Assessment and Plan Additional Plan 1-renal insufficiency, not clear if new or old. 2-anasarca. 3-elevated troponins 4-peripheral vascular disease with history of right BKA 5-diabetes. This is 45-year-old diabetic patient with history of right BKA who presents in the hospital with diarrhea and was found to have creatinine of 3 along with potassium 5.8. His troponin is elevated at 3 and flat. No ischemic changes on EKG. Patient did have complaints of shortness of breath and chest pain. His imaging shows anasarca. His serum albumin is 2.4, his hemoglobin is 7.8. -agree with continuation of heparin. -obtain echocardiogram. - start aspirin 81 mg daily. -agree with high-dose diuretics given underlying anasarca. Monitor renal function -at some time we have to decide regarding ischemic evaluation. This will be pending echocardiogram. If the echocardiogram shows normal LV systolic function done stress tests with the appropriate given the underlying CKD. However the EF is declined then he will need a cardiac catheterization. However we have to discuss with the patient risks and benefits of the cardiac catheterization and risk of dialysis. -workup for anemia before ischemic evaluation. History of Present Illness History of Present Illness Consult date/time: date of service: 01/22/21 09:16 Requesting physician: Jailyn Power MD Consult reason: Other (Elevated troponins) Reason For Visit: Hyperkalemia, Renal Failure,Enteritis,Occult GI Bl Narrative: This is 45-year-old [place]ic-speaking with past history of type 2 diabetes, right leg amputation who presents to the hospital with 1 day of diarrhea. The diarrhea was severe moving his bowels 5 times every 1 hour. He also complained of some shortness of breath and central chest pain. He does have a wound on the left lower extremity along with swelling. There is questionable ulcer also on his lower back. He denied abdominal pain, cough, fever, chills. He does not smoke cigarettes or drink alcohol. He has 1 son who is 22-year-old. On admission creatinine 3.1, potassium 5.8, troponins x3 was 3. Serum albumin 2.4, Hemoglobin 7.8,, CT abdomen and pelvis shows moderate pleural effusions right greater than the left and anasarca, ultrasound of the kidneys looked unremarkable. EKG reviewed analyze myself shows sinus rhythm, T inversion in leads 1, aVL, V4 to V6. Review of Systems Constitutional: Constitutional: Denies chills, Reports fatigue, Denies fever(s), Reports lethargy, Denies poor appetite and Reports weakness Eyes: Eyes: Denies eye discharge, Denies loss of vision, Denies eye pain and Denies photophobia ENT: Denies dizziness, Denies epistaxis, Denies nasal congestion and Denies sore throat Cardiovascular: Cardiovascular: Reports chest pain, Denies syncope, Denies pedal edema, Reports leg edema, Denies palpitations, Denies dyspnea, Denies dyspnea on exertion and Denies orthopnea Respiratory: Respiratory: Denies cough, Reports dyspnea, Reports dyspnea on exertion and Denies wheezing Gastrointestinal: Gastrointestinal: Denies abdominal pain, Reports diarrhea, Denies nausea and Denies vomiting Genitourinary: Genitourinary: Denies hematuria, Denies genital lesions and Denies dysuria Musculoskeletal: Musculoskeletal: Denies arthralgias, Denies joint swelling and Denies numbness Integumentary/Breasts: Skin/Breast: Denies pruritus and Denies rash Neurologic: Denies dizziness, Denies syncope, Denies headache(s), Denies loss of vision and Reports numbness Psychiatric: Psychiatric: Denies anxiety and Denies depression Endocrine: Endocrine: Denies cold intolerance, Denies heat intolerance and Denies palpitations Hematologic/Lymphatic: Hematologic/Lymphatic: Denies easy bleeding and Denies easy bruising Allergic/Immunologic: Allergic/Immunologic: Denies urticaria and Denies wheezing PMFSH Past Medical History Medical History A
[2021-01-22 09:31] LABS: Eosinophil Urine None Seen % (None Seen)
[2021-01-22 09:32] LABS: Partial Thromboplastin Time 47.9 SECONDS (22.3-36.8)
[2021-01-22] MEDS: SODIUM BICARBONATE TAB 650 MG TABLET 1300 MG PO ×2 (10:18→16:50)
[2021-01-22] MEDS: SILVERGEL (ELTA) 45 ML 1 APPLIC TOPICAL (10:18)
[2021-01-22] MEDS: METOPROLOL TARTRATE 6.25 MG TABLET PO ×2 (10:18→20:36)
[2021-01-22] MEDS: PANTOPRAZOLE 40 MG TABLET PO (10:18)
[2021-01-22] MEDS: ASPIRIN 81 MG ENTERIC TABLET PO (10:19)
--- NOTE | 2021-01-22 10:52 | P.PNNP_ITS ---
Progress Note: A&P Assessment and Plan (1) Abnormal results of kidney function studies: Code(s): R94.4 - Abnormal results of kidney function studies Status: Acute Assessment and Plan: * acute versus acute on chronic versus chronic??? * no reported history per patiennt * creatinine slightly better (in spite of diuretics/diuresus) -- component of renal venous hypertension(?) * multiple risk factors for CKD - diabetes, hypertension, vascular disease and now CAD * evaluation to date: - normal renal ultrasund - urine electrolytes non-prerenal - nephrotic range proteinuria (almost 9 grams!!) - negative urine eosinophils - complements normal - further serologies pending * try to obtain old records regarding previous kidney function/creatinine * follow trend of repeat labs and UOP (2) Shortness of breath: Code(s): R06.02 - Shortness of breath Status: Acute Assessment and Plan: * clinically better * presumably due to volume overload * continue diuresis * follow respiratory status (3) Anasarca: Code(s): R60.1 - Generalized edema Status: Acute Assessment and Plan: * Cardiology following * suspect nephrotic range proteinuria (and likely nephrotic syndrome) playing a role * continue aggressive diuresis * follow-up Echo * may need ischemic evaluation depending on EF on Echo * follow I/Os and daily weights (4) Anemia: Code(s): D64.9 - Anemia, unspecified Status: Acute Assessment and Plan: * partly related to #1 * iron deficiency noted as well by anemia studies * however, also guaiac positive -- GI evaluation needed? 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 Exam Narrative: Exam Narrative: General: WD/WN male in NAD Heart: normal S1 and S2; no rub Lungs: clear to auscultation Abdomen: soft, nontender, nondistended, positive bowel sounds Extremities: no cyanosis or clubbing; 1 - 2+ edema Skin: warm and dry Objective Data Vital Signs Vital Signs: Vital Signs Temp Pulse Resp BP Pulse Ox 01/22/21 10:00 100 01/22/21 07:01 36.6 C 79 18 141/92 H 100 01/22/21 05:32 82 01/22/21 04:00 75 01/22/21 03:49 36.4 C 83 20 151/77 H 100 01/22/21 00:00 82 01/21/21 23:23 36.3 C L 75 18 142/80 H 100 01/21/21 21:52 79 01/21/21 20:31 80 01/21/21 20:00 88 01/21/21 19:55 36.4 C 92 20 147/81 H 99 01/21/21 18:00 99 01/21/21 17:35 35.9 C
--- NOTE | 2021-01-22 10:52 | PM.PNNEP ---
Progress Note: A&P Assessment and Plan (1) Abnormal results of kidney function studies: Code(s): R94.4 - Abnormal results of kidney function studies Status: Acute Assessment and Plan: acute versus acute on chronic versus chronic??? no reported history per patiennt creatinine slightly better (in spite of diuretics/diuresus) -- component of renal venous hypertension(?) multiple risk factors for CKD - diabetes, hypertension, vascular disease and now CAD evaluation to date: - normal renal ultrasund - urine electrolytes non-prerenal - nephrotic range proteinuria (almost 9 grams!!) - negative urine eosinophils - complements normal - further serologies pending try to obtain old records regarding previous kidney function/creatinine follow trend of repeat labs and UOP (2) Shortness of breath: Code(s): R06.02 - Shortness of breath Status: Acute Assessment and Plan: clinically better presumably due to volume overload continue diuresis follow respiratory status (3) Anasarca: Code(s): R60.1 - Generalized edema Status: Acute Assessment and Plan: Cardiology following suspect nephrotic range proteinuria (and likely nephrotic syndrome) playing a role continue aggressive diuresis follow-up Echo may need ischemic evaluation depending on EF on Echo follow I/Os and daily weights (4) Anemia: Code(s): D64.9 - Anemia, unspecified Status: Acute Assessment and Plan: partly related to #1 iron deficiency noted as well by anemia studies however, also guaiac positive -- GI evaluation needed? 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 Exam Narrative: Exam Narrative: General: WD/WN male in NAD Heart: normal S1 and S2; no rub Lungs: clear to auscultation Abdomen: soft, nontender, nondistended, positive bowel sounds Extremities: no cyanosis or clubbing; 1 - 2+ edema Skin: warm and dry Objective Data Vital Signs Vital Signs: Vital Signs Temp Pulse Resp BP Pulse Ox 01/22/21 10:00 100 01/22/21 07:01 36.6 C 79 18 141/92 H 100 01/22/21 05:32 82 01/22/21 04:00 75 01/22/21 03:49 36.4 C 83 20 151/77 H 100 01/22/21 00:00 82 01/21/21 23:23 36.3 C L 75 18 142/80 H 100 01/21/21 21:52 79 01/21/21 20:31 80 01/21/21 20:00 88 01/21/21 19:55 36.4 C 92 20 147/81 H 99 01/21/21 18:00 99 01/21/21 17:35 35.9 C L 90 20 151/92 H 99 01/21/21 16:00 92 01/21/21 14:00 88 01/21/21 12:56 36.4 C 85 20 150/96 H 100 01/21/21 12:00 85 Intake/Output Intake/Output: Intake & Output 01/19/21 01/20/21 01/21/21 01/22/21 23:59 23:59 23:59 23:59 Intake Total 1999 1460 1160 360 Output Total 600 1150 1540 Balance 1999 860 10 1180 Meds/Results Medications: Active Medications Generic Name Dose Route Start Last Admin Trade Name Angi PRN Reason Stop Dose Admin Acetaminophen 650 mg 01/19/21 23:43 Acetaminophen 325 Mg Tablet PO Q4H PRN Mild Pain (1-3) or Fever Hydrocodone Bitart/Acetaminophen 1
[2021-01-22 11:43] LABS: Glucose Point of Care 113 mg/dl (65-105)
--- NOTE | 2021-01-22 13:08 | PM.IMPN ---
Progress Note: A&P Assessment and Plan (1) NSTEMI (non-ST elevated myocardial infarction): Code(s): I21.4 - Non-ST elevation (NSTEMI) myocardial infarction Status: Acute (2) Shortness of breath: Code(s): R06.02 - Shortness of breath Status: Acute (3) Metabolic acidosis: Code(s): E87.2 - Acidosis Status: Acute (4) Abnormal results of kidney function studies: Code(s): R94.4 - Abnormal results of kidney function studies Status: Acute (5) Buttock wound: Code(s): S31.809A - Unspecified open wound of unspecified buttock, initial encounter Status: Acute Assessment and Plan: Order wound team (6) Below knee amputation: Code(s): S88.119A - Complete traumatic amputation at level between knee and ankle, unspecified lower leg, initial encounter Status: Acute Assessment and Plan: SEcondary to poor DM control (7) GLENN (acute kidney injury): Code(s): N17.9 - Acute kidney failure, unspecified Status: Acute Assessment and Plan: CREAT is 3 hydrate wit fluids consult nephrology watch UO (8) Diabetes: Code(s): E11.9 - Type 2 diabetes mellitus without complications Status: Acute Assessment and Plan: ACCUCHECKS, SSI (9) Gastroenteritis: Code(s): K52.9 - Noninfective gastroenteritis and colitis, unspecified Status: Acute Assessment and Plan: ?Moderate pleural effusions right greater than left, adjacent atelectasis. Anasarca. consult GI order liver and hep panel ?Nausea and vomiting secondary to infection (10) Acute hyperkalemia: Code(s): E87.5 - Hyperkalemia Status: Acute Assessment and Plan: POtassium level is high give kayelexate and watch potassium levels (11) Anemia: Code(s): D64.9 - Anemia, unspecified Status: Acute Assessment and Plan: watch HB occult test ordered (12) Anasarca: Code(s): R60.1 - Generalized edema Status: Acute (13) Pleural effusion, bilateral: Code(s): J90 - Pleural effusion, not elsewhere classified Status: Acute (14) CHF (congestive heart failure): Code(s): I50.9 - Heart failure, unspecified Status: Acute Additional Plan 45 yo [place]ian speaking male w DM, HTN, obesity, h/o RLE amputation 2/2 DM, is admitted w c/o diarrhea. He is noted to be in volume overload with elevated troponin and GLENN. nephro and cardiology were consulted. His wounds over LLE and buttocks were viewed by ID and not believed to be infected. Local wound care was recommended. He was placed on Bumex 2 mg IV q.8 hours after one dose of Metolazone 5 mg p.o. given. and heparin gtt. in addition to ASA and BB. Pt has improved since admission, reporting less work of breathing. 01/22/21 pt feeling better diarrhea has resolved cont current care recs from nephro and cardio appreciated c/s wound care for eval cont local wound care per RN (excellent care of pt appreciated) pt with hypoglycemia, not receiving antihyperglycemics will cont to monitor (pm snack ordered) ECHO pending Subjective Date/time seen: 01/22/21 13:08 feeling better, breathing better , denies pain but is noted to have pain with turning/ repositioning and wound care. Exam Narrative: Exam Narrative: GEN: NAD, cooperative , obese, Tristanian speaking HEENT: NCAT, MMM, EOMI Neck: no JVD Heart: S1S2 RRR Lungs: Decreased sound transmission at bases of lungs Abd: soft, NT, ND, bowel sounds normoactive Ext: moves all, R BKA no cyanosis, no clubbing, multiple open lesions on wound left distal extremity without signs of active infection Neuro: Normal cognition, moves all extremities equally cranial nerves intact A&O x3 Psych: mood and affect congruent Const: General: acute distress and tired appearing HENMT: Head: normocephalic Eyes: General: appearance normal, both eyes and all related structures Pupils: Equal, round and reactive pupils present N
[2021-01-22] MEDS: LIDOCAINE HCL 1% LOCAL INJ 2 ML AMPUL 5 ML INFILTRATE (14:30)
[2021-01-22 16:20] LABS: Glucose Point of Care 115 mg/dl (65-105)
[2021-01-22] MEDS: HEPARIN SOD/D5W 100 UNITS/ML 25,000 UNITS/250 ML BAG 13 UNITS IV CONT (16:57)
[2021-01-22 17:10] LABS: Basophils Absolute Auto 0.1 K/mm3 (0.0-0.1); Basophils Percent Auto 0.5 % (0.2-1.2); Eosinophils Absolute Auto 0.5 K/mm3 (0-0.3); Eosinophils Percent Auto 5.9 % (0-4.4); Hemoglobin 7.9 g/dL (14.0-18.0); Immature Granulocyte Absolute 0.05 K/mm3 (0.00-0.031); Immature Granulocyte Percent A 0.5 % (0-0.5); Lymphocytes Absolute Auto 0.97 K/mm3 (0.9-3.2); Lymphocytes Percent Auto 10.5 % (18.3-44.2); Mean Corpuscular HGB Conc 29.3 g/dl (32-36); Mean Corpuscular Hemoglobin 26.1 pg (26-34); Mean Corpuscular Volume 89.1 fl (80-100); Mean Platelet Volume 11.5 fl (7.4-10.4); Monocytes Percent Auto 10.6 % (2.6-8.5); Neutrophils Absolute Auto 6.6 K/mm3 (1.3-6.7); Nucleated Red Blood Cells Perc 0.2 % (0.0-0.2); Platelet Count Result 315 k/mm3 (150-375); Red Blood Count 3.03 M/mm3 (4.6-6.20); Red Cell Distribution Width 14.1 % (11.5-14.5); White Blood Count 9.2 K/mm3 (4.5-10.0)
[2021-01-22 17:21] LABS: Hypochromasia 1+ (NORMAL); Platelet Estimate Adequate (Adequate)
[2021-01-22 17:23] LABS: Albumin Level 2.5 g/dL (3.5-5.1); Anion Gap 5 mmol/L (8-16); Blood Urea Nitrogen 51 mg/dL (9-20); Calcium 8.2 mg/dL (8.4-10.2); Carbon Dioxide 23 mmol/L (22-30); Chloride 114 mmol/L (98-107); Estimated CRCL calculation 37 ml/min; Estimated Glomerular Filt Rate 23; Glucose 131 mg/dL (75-110); Phosphorus 4.9 mg/dL (2.5-4.5); Potassium 4.5 mmol/L (3.4-5.0); Sodium 142 mmol/L (137-145)
[2021-01-22] MEDS: SALINE LOCK FLUSH 10 ML IV PUSH (20:40)
[2021-01-22 20:51] LABS: Glucose Point of Care 151 mg/dl (65-105)
[2021-01-22 23:42] LABS: Partial Thromboplastin Time 94.5 SECONDS (22.3-36.8)
[2021-01-23] VITALS (12 sets, daily range): BP systolic 146–164; BP diastolic 68–92; PULSE 73–93; RESP 20–24; TEMP 35.8–36.9; O2SAT 100
[2021-01-23 01:06] LABS: Glucose Point of Care 132 mg/dl (65-105)
[2021-01-23] MEDS: HEPARIN SOD/D5W 100 UNITS/ML 25,000 UNITS/250 ML BAG 13 UNITS IV CONT (01:53)
[2021-01-23 03:23] LABS: IFOB Positive Control Positive; Immunochemical Fecal Occult Bl Positive (N)
[2021-01-23] MEDS: BUMETANIDE INJ 2.5 MG/10 ML VIAL 2 MG IV PUSH ×3 (05:04→21:24)
[2021-01-23] MEDS: SALINE LOCK FLUSH 10 ML IV PUSH ×3 (05:04→21:23)
[2021-01-23 05:33] LABS: Partial Thromboplastin Time 95.6 SECONDS (22.3-36.8)
[2021-01-23 05:50] LABS: Hemoglobin A1C 10.9 % (<5.7)
[2021-01-23] MEDS: EPOETIN ALFA-EPBX 10,000 UNITS/ML VIAL 10000 UNITS SUB-Q (08:49)
[2021-01-23] MEDS: SILVERGEL (ELTA) 45 ML 1 APPLIC TOPICAL (08:51)
[2021-01-23] MEDS: ASPIRIN 81 MG ENTERIC TABLET PO (08:51)
[2021-01-23] MEDS: METOPROLOL TARTRATE 6.25 MG TABLET PO (08:52)
[2021-01-23] MEDS: SODIUM BICARBONATE TAB 650 MG TABLET 1300 MG PO ×2 (08:52→16:25)
[2021-01-23] MEDS: PANTOPRAZOLE 40 MG TABLET PO (08:52)
[2021-01-23 08:53] LABS: Glucose Point of Care 125 mg/dl (65-105)
--- NOTE | 2021-01-23 09:17 | PM.PNCARD ---
Progress Note: A&P Assessment and Plan (1) CHF (congestive heart failure): Code(s): I50.9 - Heart failure, unspecified Status: Acute Assessment and Plan: Acute systolic. Probably ischemic. Will DC metoprolol switch him to carvedilol 3.125 mg p.o. b.i.d.. No Bradley or Arb/spironolactone at this point because of renal failure. (2) NSTEMI (non-ST elevated myocardial infarction): Code(s): I21.4 - Non-ST elevation (NSTEMI) myocardial infarction Status: Acute Assessment and Plan: Continue aspirin, beta-malik. Will add atorvastatin 20 mg daily. Check a lipid panel. (3) GLENN (acute kidney injury): Code(s): N17.9 - Acute kidney failure, unspecified Status: Acute Assessment and Plan: Improving (4) Peripheral vascular disease: Code(s): I73.9 - Peripheral vascular disease, unspecified Status: Acute Assessment and Plan: Status post amputation (5) Cardiomyopathy: Code(s): I42.9 - Cardiomyopathy, unspecified Status: Acute Assessment and Plan: Probably ischemic. Needs an ischemic workup before discharge. Preferably a cardiac catheterization for definitive evaluation depending on improvement of renal function Additional Plan -workup for anemia before ischemic evaluation. Subjective Date/time seen: 01/23/21 09:17 This is 45-year-old Italian-speaking with past history of type 2 diabetes, right leg amputation who presents to the hospital with 1 day of diarrhea. The diarrhea was severe moving his bowels 5 times every 1 hour. He also complained of some shortness of breath and central chest pain. Date of service 01/23/2021: Feels about the same. No chest pain at this point. No shortness of breath. Right leg is wrapped Review of Systems Constitutional: Constitutional: Denies chills, Reports fatigue, Denies fever(s), Denies headache(s), Reports lethargy, Denies poor appetite and Reports weakness Eyes: Eyes: Denies eye discharge, Denies loss of vision, Denies eye pain and Denies photophobia ENT: Denies dizziness, Denies headache(s), Denies epistaxis, Denies nasal congestion and Denies sore throat Cardiovascular: Cardiovascular: Reports chest pain, Denies syncope, Denies pedal edema, Reports leg edema, Denies palpitations, Reports dyspnea, Reports dyspnea on exertion and Denies orthopnea Respiratory: Respiratory: Denies cough, Reports dyspnea, Reports dyspnea on exertion and Denies wheezing Gastrointestinal: Gastrointestinal: Denies abdominal pain, Reports diarrhea, Denies nausea and Denies vomiting Genitourinary: Genitourinary: Denies hematuria, Denies genital lesions and Denies dysuria Musculoskeletal: Musculoskeletal: Denies arthralgias, Denies joint swelling and Reports numbness Integumentary/Breasts: Skin/Breast: Denies pruritus and Denies rash Neurologic: Denies dizziness, Denies syncope, Denies headache(s), Denies loss of vision, Reports numbness and Reports weakness Psychiatric: Psychiatric: Denies anxiety and Denies depression Endocrine: Endocrine: Denies cold intolerance, Reports fatigue, Denies heat intolerance and Denies palpitations Hematologic/Lymphatic: Hematologic/Lymphatic: Denies easy bleeding and Denies easy bruising Allergic/Immunologic: Allergic/Immunologic: Denies urticaria and Denies wheezing Exam Const: General: cooperative, comfortable, no acute distress, alert and awake Nutritional Appearance: well nourished Orientation/consciousness: patient oriented x3 HENMT: Head: normal to inspection, normocephalic and atraumatic Ears: hearing grossly normal bilaterally General nose exam: Normal external nose present, Normal nares present and no nasal discharge noted Face and sinus: normal facial exam and no erythema Mouth: No drooling and No restricted motion Throat: uvula midline Eyes: General: appearance normal, both eyes and all related structures Alignment and Position: position normal Conjunctivae: conjunct
[2021-01-23 09:51] LABS: Cholesterol 125 mg/dL (0-200); HDL Direct 57 mg/dL; Triglycerides 132 mg/dL (<150)
[2021-01-23 10:05] LABS: LDL Cholesterol Direct 40 mg/dL
[2021-01-23 13:15] LABS: Glucose Point of Care 134 mg/dl (65-105)
[2021-01-23 13:17] LABS: Complement Total CH50 >60 U/mL (31-60)
[2021-01-23] MEDS: MORPHINE SULFATE (*CRX) 4 MG/ML INJ IV PUSH (14:44)
--- NOTE | 2021-01-23 15:09 | PM.PNNEP ---
Progress Note: A&P Assessment and Plan (1) Abnormal results of kidney function studies: Code(s): R94.4 - Abnormal results of kidney function studies Status: Acute Assessment and Plan: acute versus acute on chronic versus chronic??? no reported history per patiennt creatinine slightly better (in spite of diuretics/diuresis) -- component of renal venous hypertension(?) multiple risk factors for CKD - diabetes, hypertension, vascular disease and now CAD evaluation to date: - normal renal ultrasund - urine electrolytes non-prerenal - nephrotic range proteinuria (almost 9 grams!!) - negative urine eosinophils - complements normal - further serologies pending trying to obtain old records regarding previous kidney function/creatinine follow trend of repeat labs and UOP (2) Shortness of breath: Code(s): R06.02 - Shortness of breath Status: Acute Assessment and Plan: clinically better presumably due to volume overload continue diuresis follow respiratory status (3) Anasarca: Code(s): R60.1 - Generalized edema Status: Acute Assessment and Plan: Cardiology following suspect nephrotic range proteinuria (and likely nephrotic syndrome) playing a role continue aggressive diuresis follow-up Echo may need ischemic evaluation depending on EF on Echo follow I/Os and daily weights (4) Anemia: Code(s): D64.9 - Anemia, unspecified Status: Acute Assessment and Plan: partly related to #1 iron deficiency noted as well by anemia studies however, also guaiac positive -- GI evaluation needed? 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 Subjective Date/time seen: 01/23/21 15:09 Still with some shortness of breath but more so with exertional activities than at rest; continues to have good diuresis with current diuretic regimen; no other acute issues or problems noted; attempting to work with PT/OT as tolerated. Exam Narrative: Exam Narrative: General:WD/WN male in NAD Heart: normal S1 and S2; no rub Lungs: decreased at bases Abdomen: soft, nontender, nondistended, positive bowel sounds Extremities: no cyanosis or clubbing; 1 - 2+ edema Skin: warm and dry Objective Data Vital Signs Vital Signs: Vital Signs Temp Pulse Resp BP Pulse Ox 01/23/21 16:00 73 01/23/21 12:00 36.9 C 81 22 H 154/68 H 100 01/23/21 10:00 75 01/23/21 08:52 88 01/23/21 08:00 36.7 C 93 22 H 150/70 H 100 01/23/21 06:00 86 01/23/21 04:00 36.4 C 82 20 147/69 H 100 01/23/21 02:00 79 01/23/21 00:00 36.3 C L 82 20 146/83 H 100 01/22/21 22:00 82 01/22/21 20:36 84 01/22/21 20:00 84 20 100 01/22/21 19:33 36.6 C 90 20 157/87 H 100 01/22/21 18:00 85 Intake/Output Intake/Output: Intake & Output 01/20/21 01/21/21 01/22/21 01/23/21 23:59 23:59 23:59 23:59 Intake Total 1460 1160 1390 820 Output Total 600 1150 2890 2700 Balance 860 10 -7353 -1199 Meds/Results Medications: Active Medications Generic Name Dose Route Start Last Admin Trade Name Freq PRN Reason Stop Dose Admin Acetaminophen 650 mg 05
--- NOTE | 2021-01-23 15:09 | P.PNNP_ITS ---
Progress Note: A&P Assessment and Plan (1) Abnormal results of kidney function studies: Code(s): R94.4 - Abnormal results of kidney function studies Status: Acute Assessment and Plan: * acute versus acute on chronic versus chronic??? * no reported history per patiennt * creatinine slightly better (in spite of diuretics/diuresis) -- component of renal venous hypertension(?) * multiple risk factors for CKD - diabetes, hypertension, vascular disease and now CAD * evaluation to date: - normal renal ultrasund - urine electrolytes non-prerenal - nephrotic range proteinuria (almost 9 grams!!) - negative urine eosinophils - complements normal - further serologies pending * trying to obtain old records regarding previous kidney function/creatinine * follow trend of repeat labs and UOP (2) Shortness of breath: Code(s): R06.02 - Shortness of breath Status: Acute Assessment and Plan: * clinically better * presumably due to volume overload * continue diuresis * follow respiratory status (3) Anasarca: Code(s): R60.1 - Generalized edema Status: Acute Assessment and Plan: * Cardiology following * suspect nephrotic range proteinuria (and likely nephrotic syndrome) playing a role * continue aggressive diuresis * follow-up Echo * may need ischemic evaluation depending on EF on Echo * follow I/Os and daily weights (4) Anemia: Code(s): D64.9 - Anemia, unspecified Status: Acute Assessment and Plan: * partly related to #1 * iron deficiency noted as well by anemia studies * however, also guaiac positive -- GI evaluation needed? 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 Subjective Date/time seen: 01/23/21 15:09 Still with some shortness of breath but more so with exertional activities than at rest; continues to have good diuresis with current diuretic regimen; no other acute issues or problems noted; attempting to work with PT/OT as tolerated. Exam Narrative: Exam Narrative: General:WD/WN male in NAD Heart: normal S1 and S2; no rub Lungs: decreased at bases Abdomen: soft, nontender, nondistended, positive bowel sounds Extremities: no cyanosis or clubbing; 1 - 2+ edema Skin: warm and dry Objective Data Vital Signs Vital Signs: Vital Signs Temp Pulse Resp BP Pulse Ox 01/23/21 16:00 73 01/23/21 12:00 36.9 C 81 22 H 154/68 H 100 01/23/21 10:00 75 01/23/21 08:52 88 01/23/21 08:00 36.7 C 93 22 H 150/70 H 100 01/23/21 06:00 86 01/23/21 04:00 36.4
--- NOTE | 2021-01-23 17:40 | PC.NURSE ---
Pt transfer received from IMU room 206. Patient oriented to the room. 01/23/21 2726
--- NOTE | 2021-01-23 17:43 | PC.NURSE ---
This patient, Kari Chacko, was transferred to [facility] on 01/23/21 at 1725. Personal belongings sent with patient. Report given to Carole SAWYER. Appropriate documentation sent with patient.
--- NOTE | 2021-01-23 18:12 | PM.IMPN ---
Progress Note: A&P Assessment and Plan (1) NSTEMI (non-ST elevated myocardial infarction): Code(s): I21.4 - Non-ST elevation (NSTEMI) myocardial infarction Status: Acute (2) Shortness of breath: Code(s): R06.02 - Shortness of breath Status: Acute (3) Metabolic acidosis: Code(s): E87.2 - Acidosis Status: Acute (4) Abnormal results of kidney function studies: Code(s): R94.4 - Abnormal results of kidney function studies Status: Acute (5) Buttock wound: Code(s): S31.809A - Unspecified open wound of unspecified buttock, initial encounter Status: Acute Assessment and Plan: Order wound team (6) Below knee amputation: Code(s): S88.119A - Complete traumatic amputation at level between knee and ankle, unspecified lower leg, initial encounter Status: Acute Assessment and Plan: SEcondary to poor DM control (7) GLENN (acute kidney injury): Code(s): N17.9 - Acute kidney failure, unspecified Status: Acute Assessment and Plan: CREAT is 3 hydrate wit fluids consult nephrology watch UO (8) Diabetes: Code(s): E11.9 - Type 2 diabetes mellitus without complications Status: Acute Assessment and Plan: ACCUCHECKS, SSI (9) Gastroenteritis: Code(s): K52.9 - Noninfective gastroenteritis and colitis, unspecified Status: Acute Assessment and Plan: ?Moderate pleural effusions right greater than left, adjacent atelectasis. Anasarca. consult GI order liver and hep panel ?Nausea and vomiting secondary to infection (10) Acute hyperkalemia: Code(s): E87.5 - Hyperkalemia Status: Acute Assessment and Plan: POtassium level is high give kayelexate and watch potassium levels (11) Anemia: Code(s): D64.9 - Anemia, unspecified Status: Acute Assessment and Plan: watch HB occult test ordered (12) Anasarca: Code(s): R60.1 - Generalized edema Status: Acute (13) Pleural effusion, bilateral: Code(s): J90 - Pleural effusion, not elsewhere classified Status: Acute (14) CHF (congestive heart failure): Code(s): I50.9 - Heart failure, unspecified Status: Acute Additional Plan 45 yo [place] speaking male w DM, HTN, obesity, h/o RLE amputation 2/2 DM, is admitted w c/o diarrhea. He is noted to be in volume overload with elevated troponin and GLENN. nephro and cardiology were consulted. His wounds over LLE and buttocks were viewed by ID and not believed to be infected. Local wound care was recommended. He was placed on Bumex 2 mg IV q.8 hours after one dose of Metolazone 5 mg p.o. given. and heparin gtt. in addition to ASA and BB. Pt has improved since admission, reporting less work of breathing. 01/22/21 pt feeling better diarrhea has resolved cont current care recs from nephro and cardio appreciated c/s wound care for eval cont local wound care per RN (excellent care of pt appreciated) pt with hypoglycemia, not receiving antihyperglycemics will cont to monitor (pm snack ordered) ECHO pending 01/23/2021 Patient with ongoing persistent hypertension since admission metoprolol changed to Coreg per Cardiology recommendations appreciated GLENN improving hold CHF meds until resolved Patient is uninsured and will need some type of diabetic regimen at discharge. (was only on Metformin prior to admission) HgA1c 10.9; states that he can afford [employer] brand insulin @ $25 per vial if necessary c/s PT/ OT encourage OOB to chair (baseline transfers to wheelchair and ambulates w walker) Subjective Date/time seen: 01/23/21 12:12 he is on 1 L nasal cannula he does report shortness of breath with eating but otherwise is feeling better. denies chest pain. denies wound pain. baseline ambulatory status ambulates with walker and uses wheelchair. PT OT will be ordered to help assist with return to baseline function Exam Narrative: Exam Narrat
[2021-01-23 18:57] LABS: Glucose Point of Care 134 mg/dl (65-105)
[2021-01-23 20:52] LABS: Iron 17 ug/dL (49-181)
[2021-01-23 21:01] LABS: Percent Iron Saturation 9 % (20-50)
[2021-01-23] MEDS: carvediloL 3.125 MG TABLET PO (21:26)
[2021-01-23 21:43] LABS: Glucose Point of Care 161 mg/dl (65-105)
[2021-01-24] VITALS (12 sets, daily range): BP systolic 117–156; BP diastolic 61–86; PULSE 72–89; RESP 16–20; TEMP 36.1–36.6; O2SAT 95–97
[2021-01-24] MEDS: HEPARIN SOD/D5W 100 UNITS/ML 25,000 UNITS/250 ML BAG 13 UNITS IV CONT (02:06)
[2021-01-24] MEDS: BUMETANIDE INJ 2.5 MG/10 ML VIAL 2 MG IV PUSH ×3 (05:11→21:39)
[2021-01-24] MEDS: SALINE LOCK FLUSH 10 ML IV PUSH ×3 (05:12→21:39)
[2021-01-24] MEDS: SALINE LOCK FLUSH 20 ML IV PUSH (05:13)
[2021-01-24 05:41] LABS: Partial Thromboplastin Time 68.8 SECONDS (22.3-36.8)
[2021-01-24] MEDS: HEPARIN SODIUM 5,000 UNITS/ML VIAL 3500 UNITS IV PUSH (05:50)
[2021-01-24 05:52] LABS: Lambda Light Chain 118.8 mg/L (5.7-26.3)
[2021-01-24 07:38] LABS: Glucose Point of Care 169 mg/dl (65-105)
[2021-01-24] MEDS: PANTOPRAZOLE 40 MG TABLET PO (08:49)
[2021-01-24] MEDS: carvediloL 3.125 MG TABLET PO ×2 (08:49→21:39)
[2021-01-24] MEDS: SODIUM BICARBONATE TAB 650 MG TABLET 1300 MG PO ×2 (08:49→16:58)
[2021-01-24] MEDS: ASPIRIN 81 MG ENTERIC TABLET PO (08:49)
[2021-01-24] MEDS: SILVERGEL (ELTA) 45 ML 1 APPLIC TOPICAL (08:49)
[2021-01-24] MEDS: ATORVASTATIN 20 MG TABLET PO (10:22)
--- NOTE | 2021-01-24 10:30 | P.PNNP_ITS ---
Progress Note: A&P Assessment and Plan (1) Abnormal results of kidney function studies: Code(s): R94.4 - Abnormal results of kidney function studies Status: Acute Assessment and Plan: * acute versus acute on chronic versus chronic??? * no reported history per patient * creatinine slightly better (in spite of diuretics/diuresis) -- component of renal venous hypertension(?) * multiple risk factors for CKD - diabetes, hypertension, vascular disease and now CAD * evaluation to date: - normal renal ultrasound - urine electrolytes non-prerenal - nephrotic range proteinuria (almost 9 grams!!) - negative urine eosinophils - complements normal - further serologies pending * trying to obtain old records regarding previous kidney function/creatinine * follow trend of repeat labs and UOP (2) Shortness of breath: Code(s): R06.02 - Shortness of breath Status: Acute Assessment and Plan: * clinically better * presumably due to volume overload * continue diuresis * follow respiratory status (3) Anasarca: Code(s): R60.1 - Generalized edema Status: Acute Assessment and Plan: * Cardiology following * suspect nephrotic range proteinuria (and likely nephrotic syndrome) playing a role * continue aggressive diuresis * follow-up Echo * may need ischemic evaluation depending on EF on Echo * follow I/Os and daily weights (4) Anemia: Code(s): D64.9 - Anemia, unspecified Status: Acute Assessment and Plan: * partly related to #1 * iron deficiency noted as well by anemia studies * however, also guaiac positive -- GI evaluation needed? 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 Subjective Date/time seen: 01/24/21 10:30 Says that his breathing and swelling/edema are slowly improving with current therapy; no events/issues overnight; no apparent distress to report at the time of my visit. Exam Narrative: Exam Narrative: General:WD/WN male in NAD Heart: normal S1 and S2; no rub Lungs: decreased at bases Abdomen: soft, nontender, nondistended, positive bowel sounds Extremities: no cyanosis or clubbing; 1 - 2+ edema Skin: warm and intact Objective Data Vital Signs Vital Signs: Vital Signs Temp Pulse Resp BP Pulse Ox 01/24/21 08:49 86 01/24/21 08:00 85 01/24/21 04:58 36.6 C 84 17 156/86 H 97 01/24/21 04:00 79 01/24/21 00:00 36.1 C L 89 20 152/79 H 97 01/23/21 21:26 90 01/23/21 20:00 36.1 C L 83 20 163/92 H 100 01/23/21 17:42 35.8 C L 86
--- NOTE | 2021-01-24 10:30 | PM.PNNEP ---
Progress Note: A&P Assessment and Plan (1) Abnormal results of kidney function studies: Code(s): R94.4 - Abnormal results of kidney function studies Status: Acute Assessment and Plan: acute versus acute on chronic versus chronic??? no reported history per patient creatinine slightly better (in spite of diuretics/diuresis) -- component of renal venous hypertension(?) multiple risk factors for CKD - diabetes, hypertension, vascular disease and now CAD evaluation to date: - normal renal ultrasound - urine electrolytes non-prerenal - nephrotic range proteinuria (almost 9 grams!!) - negative urine eosinophils - complements normal - further serologies pending trying to obtain old records regarding previous kidney function/creatinine follow trend of repeat labs and UOP (2) Shortness of breath: Code(s): R06.02 - Shortness of breath Status: Acute Assessment and Plan: clinically better presumably due to volume overload continue diuresis follow respiratory status (3) Anasarca: Code(s): R60.1 - Generalized edema Status: Acute Assessment and Plan: Cardiology following suspect nephrotic range proteinuria (and likely nephrotic syndrome) playing a role continue aggressive diuresis follow-up Echo may need ischemic evaluation depending on EF on Echo follow I/Os and daily weights (4) Anemia: Code(s): D64.9 - Anemia, unspecified Status: Acute Assessment and Plan: partly related to #1 iron deficiency noted as well by anemia studies however, also guaiac positive -- GI evaluation needed? 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 Subjective Date/time seen: 01/24/21 10:30 Says that his breathing and swelling/edema are slowly improving with current therapy; no events/issues overnight; no apparent distress to report at the time of my visit. Exam Narrative: Exam Narrative: General:WD/WN male in NAD Heart: normal S1 and S2; no rub Lungs: decreased at bases Abdomen: soft, nontender, nondistended, positive bowel sounds Extremities: no cyanosis or clubbing; 1 - 2+ edema Skin: warm and intact Objective Data Vital Signs Vital Signs: Vital Signs Temp Pulse Resp BP Pulse Ox 01/24/21 08:49 86 01/24/21 08:00 85 01/24/21 04:58 36.6 C 84 17 156/86 H 97 01/24/21 04:00 79 01/24/21 00:00 36.1 C L 89 20 152/79 H 97 01/23/21 21:26 90 01/23/21 20:00 36.1 C L 83 20 163/92 H 100 01/23/21 17:42 35.8 C L 86 20 149/81 H 100 01/23/21 16:00 36.6 C 86 24 H 164/77 H 100 Intake/Output Intake/Output: Intake & Output 01/21/21 01/22/21 01/23/21 01/24/21 23:59 23:59 23:59 23:59 Intake Total 1160 1390 2030 339 Output Total 1150 2890 4900 1450 Balance 21 -2539 -7154 -3251 Meds/Results Medications: Active Medications Generic Name Dose Route Start Last Admin Trade Name Freq PRN Reason Stop Dose Admin Acetaminophen 650 mg 01/19/21 23:43 Acetaminophen 325 Mg Tablet PO Q4H PRN Mild Pain (1-3) or Fever Hydrocodone Bitart/Acetaminophen 1 tab 01/23/21 18:09 Hydrocodone/Acetaminophen (*Crx) 5-325 Mg
[2021-01-24] MEDS: IRON SUCROSE COMPLEX 200 MG in SODIUM CHLORIDE 0.9% IV 50 ML 120 MG IVPB (11:08)
[2021-01-24 11:52] LABS: Glucose Point of Care 152 mg/dl (65-105)
[2021-01-24 12:19] LABS: Albumin Level 2.6 g/dL (3.5-5.1); Anion Gap 6 mmol/L (8-16); Blood Urea Nitrogen 47 mg/dL (9-20); Calcium 8.5 mg/dL (8.4-10.2); Carbon Dioxide 29 mmol/L (22-30); Chloride 108 mmol/L (98-107); Estimated CRCL calculation 34 ml/min; Estimated Glomerular Filt Rate 24; Glucose 181 mg/dL (75-110); Phosphorus 4.9 mg/dL (2.5-4.5); Potassium 4.6 mmol/L (3.4-5.0); Sodium 143 mmol/L (137-145)
[2021-01-24 12:31] LABS: Partial Thromboplastin Time 73.4 SECONDS (22.3-36.8)
[2021-01-24] MEDS: HYDROcodone/acetaminophen (*CRX) 5-325 MG TABLET 1 TAB PO (14:27)
--- NOTE | 2021-01-24 14:54 | PM.PNCARD ---
Progress Note: A&P Assessment and Plan (1) CHF (congestive heart failure): Code(s): I50.9 - Heart failure, unspecified Status: Acute Assessment and Plan: Acute systolic. Probably ischemic. metoprolol discontinued, change to carvedilol 3.125 mg p.o. b.i.d. Diuresing very very well, without aggravating renal dysfunction. Mildly hypertensive. No DEMARCUS or ARB/spironolactone at this point because of renal failure. (2) NSTEMI (non-ST elevated myocardial infarction): Code(s): I21.4 - Non-ST elevation (NSTEMI) myocardial infarction Status: Acute Assessment and Plan: Continue aspirin, beta-malik, added atorvastatin 20 mg daily. LDL cholesterol was 40 on 01/22/2021. (3) GLENN (acute kidney injury): Code(s): N17.9 - Acute kidney failure, unspecified Status: Acute Assessment and Plan: Improving (4) Peripheral vascular disease: Code(s): I73.9 - Peripheral vascular disease, unspecified Status: Acute Assessment and Plan: Status post amputation (5) Cardiomyopathy: Code(s): I42.9 - Cardiomyopathy, unspecified Status: Acute Assessment and Plan: Probably ischemic. Needs an ischemic workup before discharge. Preferably a cardiac catheterization for definitive evaluation depending on improvement of renal function, and results of anemia evaluation. (6) Anemia, iron deficiency: Code(s): D50.9 - Iron deficiency anemia, unspecified Status: Acute Assessment and Plan: Anemia stable on heparin. Patient very iron deficient with FOB positive, needs further evaluation prior to cath and poss stent which would commit him to dual anti-platelet therapy. Subjective Date/time seen: 01/24/21 14:54 Interval history: This is 45-year-old [place]araguan-speaking with past history of type 2 diabetes, right leg amputation who presents to the hospital with 1 day of severe diarrhea. He also complained of some shortness of breath and central chest pain. We are following him for acute systolic heart failure, Volume overload,cardiomyopathy EF 40-45% probably ischemic, and a NSTEMI , with a peak troponin of 3.2. Also found have (acute?) renal failure and an iron deficiency anemia. 01/23/2021: Feels about the same. No chest pain at this point. No shortness of breath. Right leg is wrapped. Change metoprolol to carvedilol, avoiding DEMARCUS-inhibitor etc. because of chronic kidney disease. Added statin. Needs an ischemia evaluation, preferably a cardiac catheterization, prior to discharge. Date of service 01/24/2021: Says he is doing good, no pain or shortness of breath. Was up in a chair earlier. Urinating a lot.lRemains on heparin drip. Getting Bumex 2 mg q.8 hours., With an excellent diuresis yesterday, 2000 cc and and [address] Conti suspects some of the edema is due to nephrotic syndrome. Review of Systems Constitutional: Constitutional: Reports no additional constitutional complaints ENT: Denies epistaxis Cardiovascular: Cardiovascular: Denies chest pain, Reports pedal edema, Reports leg edema, Denies lightheadedness and Denies palpitations Respiratory: Respiratory: Denies cough and Denies dyspnea Gastrointestinal: Gastrointestinal: Denies abdominal pain Genitourinary: Genitourinary: Denies dysuria Neurologic: Denies confusion Psychiatric: Psychiatric: Denies behavioral changes Exam Narrative: Exam Narrative: male lying at 30?, pleasant and in no distress, not on oxygen Const: General: comfortable and no acute distress HENMT: General nose exam: no epistaxis Mouth: Yes moist mucous membranes Eyes: EOM: EOMs intact bilaterally Neck: Neck: supple Resp: Effort & Inspection: normal respiratory effort Auscultation: rales ( few rales in both bases) Cardio: Rate: regular rate Rhythm: regular rh
--- NOTE | 2021-01-24 16:33 | PM.IMPN ---
Progress Note: A&P Additional Plan 45 yo Chilean speaking male w DM, HTN, obesity, h/o RLE amputation 2/2 DM, is admitted w c/o diarrhea. He is noted to be in volume overload with elevated troponin and GLENN. nephro and cardiology were consulted. His wounds over LLE and buttocks were viewed by ID and not believed to be infected. Local wound care was recommended. He was placed on Bumex 2 mg IV q.8 hours after one dose of Metolazone 5 mg p.o. given. and heparin gtt. in addition to ASA and BB. Pt has improved since admission, reporting less work of breathing. 01/22/21 pt feeling better diarrhea has resolved cont current care recs from nephro and cardio appreciated c/s wound care for eval cont local wound care per RN (excellent care of pt appreciated) pt with hypoglycemia, not receiving antihyperglycemics will cont to monitor (pm snack ordered) ECHO pending 01/23/2021 Patient with ongoing persistent hypertension since admission metoprolol changed to Coreg per Cardiology recommendations appreciated GLENN improving hold CHF meds until resolved Patient is uninsured and will need some type of diabetic regimen at discharge. (was only on Metformin prior to admission) HgA1c 10.9; states that he can afford [employer] brand insulin @ $25 per vial if necessary c/s PT/ OT encourage OOB to chair (baseline transfers to wheelchair and ambulates w walker) 01/24/2021 Patient feeling a lot better currently stable on room air diuresing very well, down approximately 5 L cont diuretics renal fxn improving BG < 180 ISS ordered but not administered Buttocks wound growing staph aureus and Pseudomonas pt started on zosyn Cardiology, Nephrology, following Subjective Date/time seen: 01/24/21 16:33 Patient feeling much better today we have a complete conversation in Tuvaluan. No diarrhea no shortness of breath no chest pain on room air Interval history: This is 45-year-old Chilean-speaking with past history of type 2 diabetes, right leg amputation who presents to the hospital with 1 day of severe diarrhea. He also complained of some shortness of breath and central chest pain. We are following him for acute systolic heart failure, Volume overload,cardiomyopathy EF 40-45% probably ischemic, and a NSTEMI , with a peak troponin of 3.2. Also found have (acute?) renal failure and an iron deficiency anemia. 01/23/2021: Feels about the same. No chest pain at this point. No shortness of breath. Right leg is wrapped. Change metoprolol to carvedilol, avoiding DEMARCUS-inhibitor etc. because of chronic kidney disease. Added statin. Needs an ischemia evaluation, preferably a cardiac catheterization, prior to discharge. Date of service 01/24/2021: Says he is doing good, no pain or shortness of breath. Was up in a chair earlier. Urinating a lot.lRemains on heparin drip. Getting Bumex 2 mg q.8 hours., With an excellent diuresis yesterday, 2000 cc and and [address] Conti suspects some of the edema is due to nephrotic syndrome. Exam Narrative: Exam Narrative: GEN: NAD, cooperative , Chilean speaking HEENT: NCAT, MMM, EOMI Neck: no JVD Heart: S1S2 RRR Lungs: bibasilar crackeles Abd: soft, NT, ND, bowel sounds normoactive Ext: moves all, R BKA no cyanosis, no clubbing, multiple open lesions on wound left distal extremity without signs of active infection Skin: large area of DTI w bleeding sluffing skin over buttocks Neuro: Normal cognition, moves all extremities equally cranial nerves intact A&O x3 Psych: mood and affect congruent Const: General: cooperative, comfortable, no acute distress, alert and awake HENMT: Head: normocephalic Eyes: General: appearance normal, both eyes and all related structures Pupils: Equal, round and reactive pupils present Neck: Neck: supple Chest: Chest palpation & inspection: normal inspection of the
[2021-01-24] MEDS: INSULIN ASPART (*BKC) 100 UNITS/ML SUB-Q (16:59)
[2021-01-24 17:00] LABS: Glucose Point of Care 216 mg/dl (65-105)
[2021-01-24 18:52] LABS: Partial Thromboplastin Time 136.3 SECONDS (22.3-36.8)
[2021-01-24 21:08] LABS: Glucose Point of Care 245 mg/dl (65-105)
[2021-01-24] MEDS: HEPARIN SOD/D5W 100 UNITS/ML 25,000 UNITS/250 ML BAG 12 UNITS IV CONT (21:42)
[2021-01-25] VITALS (14 sets, daily range): BP systolic 137–159; BP diastolic 65–76; PULSE 67–84; RESP 14–18; TEMP 36.1–37.1; O2SAT 94–98
[2021-01-25] MEDS: SALINE LOCK FLUSH 20 ML IV PUSH ×2 (01:10→07:45)
[2021-01-25] MEDS: SALINE LOCK FLUSH 10 ML IV PUSH ×3 (06:05→20:13)
[2021-01-25] MEDS: BUMETANIDE INJ 2.5 MG/10 ML VIAL 2 MG IV PUSH ×3 (06:05→23:49)
[2021-01-25 07:48] LABS: Glucose Point of Care 166 mg/dl (65-105)
[2021-01-25 07:52] LABS: Basophils Percent Auto 0.4 % (0.2-1.2); Eosinophils Absolute Auto 0.6 K/mm3 (0-0.3); Eosinophils Percent Auto 7.8 % (0-4.4); Hematocrit 23.3 % (42.0-52.0); Immature Granulocyte Absolute 0.01 K/mm3 (0.00-0.031); Immature Granulocyte Percent A 0.1 % (0-0.5); Lymphocytes Absolute Auto 1.17 K/mm3 (0.9-3.2); Lymphocytes Percent Auto 16.1 % (18.3-44.2); Mean Corpuscular HGB Conc 29.6 g/dl (32-36); Mean Corpuscular Hemoglobin 26.3 pg (26-34); Mean Corpuscular Volume 88.9 fl (80-100); Mean Platelet Volume 11.2 fl (7.4-10.4); Monocytes Absolute Auto 0.9 K/mm3 (0.1-0.6); Monocytes Percent Auto 12.4 % (2.6-8.5); Neutrophils Absolute Auto 4.6 K/mm3 (1.3-6.7); Neutrophils Percent Auto 63.2 % (45.5-73.1); Nucleated Red Blood Cells Perc 0.4 % (0.0-0.2); Platelet Count Result 232 k/mm3 (150-375); Red Blood Count 2.62 M/mm3 (4.6-6.20); Red Cell Distribution Width 14.1 % (11.5-14.5); White Blood Count 7.3 K/mm3 (4.5-10.0)
[2021-01-25 08:00] LABS: Hemoglobin 6.9 g/dL (14.0-18.0)
[2021-01-25 08:03] LABS: Partial Thromboplastin Time 62.9 SECONDS (22.3-36.8)
[2021-01-25 08:30] LABS: Albumin Level 2.4 g/dL (3.5-5.1); Anion Gap 2 mmol/L (8-16); Blood Urea Nitrogen 49 mg/dL (9-20); Calcium 8.4 mg/dL (8.4-10.2); Carbon Dioxide 32 mmol/L (22-30); Chloride 107 mmol/L (98-107); Estimated CRCL calculation 33 ml/min; Estimated Glomerular Filt Rate 23; Glucose 177 mg/dL (75-110); Phosphorus 4.7 mg/dL (2.5-4.5); Potassium 4.2 mmol/L (3.4-5.0); Sodium 141 mmol/L (137-145)
--- NOTE | 2021-01-25 09:16 | PM.IMPN ---
Progress Note: A&P Assessment and Plan (1) NSTEMI (non-ST elevated myocardial infarction): Code(s): I21.4 - Non-ST elevation (NSTEMI) myocardial infarction Status: Acute (2) Shortness of breath: Code(s): R06.02 - Shortness of breath Status: Acute (3) Metabolic acidosis: Code(s): E87.2 - Acidosis Status: Acute (4) Abnormal results of kidney function studies: Code(s): R94.4 - Abnormal results of kidney function studies Status: Acute (5) Buttock wound: Code(s): S31.809A - Unspecified open wound of unspecified buttock, initial encounter Status: Acute Assessment and Plan: Order wound team (6) Below knee amputation: Code(s): S88.119A - Complete traumatic amputation at level between knee and ankle, unspecified lower leg, initial encounter Status: Acute Assessment and Plan: SEcondary to poor DM control (7) GLENN (acute kidney injury): Code(s): N17.9 - Acute kidney failure, unspecified Status: Acute Assessment and Plan: CREAT is 3 hydrate wit fluids consult nephrology watch UO (8) Diabetes: Code(s): E11.9 - Type 2 diabetes mellitus without complications Status: Chronic Assessment and Plan: ACCUCHECKS, SSI (9) Gastroenteritis: Code(s): K52.9 - Noninfective gastroenteritis and colitis, unspecified Status: Acute Assessment and Plan: ?Moderate pleural effusions right greater than left, adjacent atelectasis. Anasarca. consult GI order liver and hep panel ?Nausea and vomiting secondary to infection (10) Acute hyperkalemia: Code(s): E87.5 - Hyperkalemia Status: Acute Assessment and Plan: POtassium level is high give kayelexate and watch potassium levels (11) Anemia: Code(s): D64.9 - Anemia, unspecified Status: Acute Assessment and Plan: watch HB occult test ordered (12) Anasarca: Code(s): R60.1 - Generalized edema Status: Acute (13) Pleural effusion, bilateral: Code(s): J90 - Pleural effusion, not elsewhere classified Status: Acute (14) CHF (congestive heart failure): Code(s): I50.9 - Heart failure, unspecified Status: Acute Additional Plan 45 yo Macedonian speaking male w DM, HTN, obesity, h/o RLE amputation 2/2 DM, is admitted w c/o diarrhea. He is noted to be in volume overload with elevated troponin and GLENN. nephro and cardiology were consulted. His wounds over LLE and buttocks were viewed by ID and not believed to be infected. Local wound care was recommended. He was placed on Bumex 2 mg IV q.8 hours after one dose of Metolazone 5 mg p.o. given. and heparin gtt. in addition to ASA and BB. Pt has improved since admission, reporting less work of breathing. 01/22/21 pt feeling better diarrhea has resolved cont current care recs from nephro and cardio appreciated c/s wound care for eval cont local wound care per RN (excellent care of pt appreciated) pt with hypoglycemia, not receiving antihyperglycemics will cont to monitor (pm snack ordered) ECHO pending 01/23/2021 Patient with ongoing persistent hypertension since admission metoprolol changed to Coreg per Cardiology recommendations appreciated GLENN improving hold CHF meds until resolved Patient is uninsured and will need some type of diabetic regimen at discharge. (was only on Metformin prior to admission) HgA1c 10.9; states that he can afford [employer] brand insulin @ $25 per vial if necessary c/s PT/ OT encourage OOB to chair (baseline transfers to wheelchair and ambulates w walker) 01/24/2021 Patient feeling a lot better currently stable on room air diuresing very well, down approximately 5 L cont diuretics renal fxn improving BG < 180 ISS ordered but not administered Buttocks wound growing staph aureus and Pseudomonas pt started on zosyn Cardiology, Nephrology, following 01/25/2021 Patient denies any signs of active bleeding hernandez
[2021-01-25] MEDS: ASPIRIN 81 MG ENTERIC TABLET PO (09:30)
[2021-01-25] MEDS: ATORVASTATIN 20 MG TABLET PO (09:31)
[2021-01-25] MEDS: IRON SUCROSE COMPLEX 200 MG in SODIUM CHLORIDE 0.9% IV 50 ML 50 MG IVPB (09:31)
[2021-01-25] MEDS: SILVERGEL (ELTA) 45 ML 1 APPLIC TOPICAL (09:31)
[2021-01-25] MEDS: PANTOPRAZOLE 40 MG TABLET PO (09:31)
[2021-01-25] MEDS: SODIUM BICARBONATE TAB 650 MG TABLET 1300 MG PO (09:31)
[2021-01-25] MEDS: carvediloL 3.125 MG TABLET PO ×2 (09:31→20:31)
[2021-01-25 10:26] LABS: Platelet Estimate Adequate (Adequate); Polychromasia 1+ (NORMAL)
[2021-01-25] MEDS: SODIUM CHLORIDE 0.9% IV 250 ML 30 ML IV CONT (10:27)
[2021-01-25 12:19] LABS: Glucose Point of Care 172 mg/dl (65-105)
--- NOTE | 2021-01-25 12:50 | PM.PNCARD ---
Progress Note: A&P Assessment and Plan (1) CHF (congestive heart failure): Code(s): I50.9 - Heart failure, unspecified Status: Acute Assessment and Plan: Acute systolic CHF, probably ischemic. Metoprolol discontinued, changed to carvedilol 3.125 mg p.o. b.i.d. Diuresing very very well, without aggravating renal dysfunction. Mildly hypertensive. No DEMARCUS or ARB/spironolactone at this point because of renal failure. (2) Cardiomyopathy: Code(s): I42.9 - Cardiomyopathy, unspecified Status: Acute Assessment and Plan: Probably ischemic. Needs an ischemic workup before discharge. Preferably a cardiac catheterization for definitive evaluation but with renal function not improving and the patient's anemia that seems not a good idea. Will schedule a Lexiscan stress test for tomorrow. (3) NSTEMI (non-ST elevated myocardial infarction): Code(s): I21.4 - Non-ST elevation (NSTEMI) myocardial infarction Status: Acute Assessment and Plan: Continue aspirin, beta-malik, added atorvastatin 20 mg daily. LDL cholesterol was 40 on 01/22/2021. (4) GLENN (acute kidney injury): Code(s): N17.9 - Acute kidney failure, unspecified Status: Acute Assessment and Plan: Improving (5) Peripheral vascular disease: Code(s): I73.9 - Peripheral vascular disease, unspecified Status: Acute Assessment and Plan: Status post amputation (6) Anemia, iron deficiency: Code(s): D50.9 - Iron deficiency anemia, unspecified Status: Acute Assessment and Plan: Anemia stable on heparin. Patient very iron deficient with FOB positive, needs further evaluation prior to cath and poss stent which would commit him to dual anti-platelet therapy. Subjective Date/time seen: 01/25/21 12:50 Interval history: This is 45-year-old Croatian-speaking with past history of type 2 diabetes, right leg amputation who presents to the hospital with 1 day of severe diarrhea. He also complained of some shortness of breath and central chest pain. We are following him for acute systolic heart failure, volume overload, cardiomyopathy EF 40-45% probably ischemic, and a NSTEMI , with a peak troponin of 3.2. Also found have (acute?) renal failure and an iron deficiency anemia. 01/23/2021: Feels about the same. No chest pain at this point. No shortness of breath. Right leg is wrapped. Change metoprolol to carvedilol, avoiding DEMARCUS-inhibitor etc. because of chronic kidney disease. Added statin. Needs an ischemia evaluation, preferably a cardiac catheterization, prior to discharge. 01/24/2021: Says he is doing good, no pain or shortness of breath. Was up in a chair earlier. Urinating a lot. Remains on heparin drip. Getting Bumex 2 mg q.8 hours., With an excellent diuresis yesterday, 2000 cc and and [address] Conti suspects some of the edema is due to nephrotic syndrome. Date of service 01/25/2021: Still diuresing well, no change in renal function. Heparin drip was discontinued when his hematocrit dropped to 23 and he is getting a unit of pack cells. Says he is feeling good, no pain or shortness of breath. Diuresing, 1400 in, 2200 out yesterday. Review of Systems Constitutional: Constitutional: Reports no additional constitutional complaints ENT: Denies epistaxis Cardiovascular: Cardiovascular: Denies chest pain, Reports pedal edema, Reports leg edema, Denies lightheadedness, Denies palpitations and Denies dyspnea Respiratory: Respiratory: Denies cough and Denies dyspnea Gastrointestinal: Gastrointestinal: Denies abdominal pain, Denies melena, Denies hematochezia and Denies hematemesis Genitourinary: Genitourinary: Denies hematuria and Reports dysuria Neurologic: Denies behavioral changes and Denies confusion Psychiatric: Psychiatric: Denies
--- NOTE | 2021-01-25 13:21 | P.PNNP_ITS ---
Progress Note: A&P Assessment and Plan (1) Abnormal results of kidney function studies: Code(s): R94.4 - Abnormal results of kidney function studies Status: Acute Assessment and Plan: * acute versus acute on chronic versus chronic??? * no reported history per patient * creatinine slightly better (in spite of diuretics/diuresis) -- component of renal venous hypertension(?) * multiple risk factors for CKD - diabetes, hypertension, vascular disease and now CAD * evaluation to date: - normal renal ultrasound - urine electrolytes non-prerenal - nephrotic range proteinuria (almost 9 grams!!) - negative urine eosinophils - complements normal - further serologies pending * trying to obtain old records regarding previous kidney function/creatinine * follow trend of repeat labs and UOP (2) Shortness of breath: Code(s): R06.02 - Shortness of breath Status: Acute Assessment and Plan: * clinically better * presumably due to volume overload * continue diuresis * follow respiratory status (3) Anasarca: Code(s): R60.1 - Generalized edema Status: Acute Assessment and Plan: * Cardiology following * suspect nephrotic range proteinuria (and likely nephrotic syndrome) playing a role * continue aggressive diuresis * Echo results noted -- EF 40 - 45% * follow I/Os and daily weights (4) Anemia: Code(s): D64.9 - Anemia, unspecified Status: Acute Assessment and Plan: * partly related to #1 * iron deficiency noted as well by anemia studies * however, also guaiac positive -- GI evaluation needed? 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 Subjective Date/time seen: 01/25/21 13:21 Swelling and edema continue to improve with ongoing diuresis; renal function holding steady in spite of aggressive IV diuresis; Echo results noted but unable to cardiac catheterization contraindicated by anemia issues and renal dysfunction; no apparent distress voiced at this time. Exam Narrative: Exam Narrative: General:WD/WN male in NAD Heart: normal S1 and S2; no rub Lungs: decreased at bases Abdomen: soft, nontender, nondistended, positive bowel sounds Extremities: no cyanosis or clubbing; 1+ edema Skin: warm and dry Objective Data Vital Signs Vital Signs: Vital Signs Temp Pulse Resp BP Pulse Ox 01/25/21 12:10 36.7 C 79 16 159/76 H 98 01/25/21 12:00 82 01/25/21 11:10 37.1 C 79 16 143/76 H 94 01/25/21 10:55 36.7 C 78 16 139/66 96
--- NOTE | 2021-01-25 13:21 | PM.PNNEP ---
Progress Note: A&P Assessment and Plan (1) Abnormal results of kidney function studies: Code(s): R94.4 - Abnormal results of kidney function studies Status: Acute Assessment and Plan: acute versus acute on chronic versus chronic??? no reported history per patient creatinine slightly better (in spite of diuretics/diuresis) -- component of renal venous hypertension(?) multiple risk factors for CKD - diabetes, hypertension, vascular disease and now CAD evaluation to date: - normal renal ultrasound - urine electrolytes non-prerenal - nephrotic range proteinuria (almost 9 grams!!) - negative urine eosinophils - complements normal - further serologies pending trying to obtain old records regarding previous kidney function/creatinine follow trend of repeat labs and UOP (2) Shortness of breath: Code(s): R06.02 - Shortness of breath Status: Acute Assessment and Plan: clinically better presumably due to volume overload continue diuresis follow respiratory status (3) Anasarca: Code(s): R60.1 - Generalized edema Status: Acute Assessment and Plan: Cardiology following suspect nephrotic range proteinuria (and likely nephrotic syndrome) playing a role continue aggressive diuresis Echo results noted -- EF 40 - 45% follow I/Os and daily weights (4) Anemia: Code(s): D64.9 - Anemia, unspecified Status: Acute Assessment and Plan: partly related to #1 iron deficiency noted as well by anemia studies however, also guaiac positive -- GI evaluation needed? 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 Subjective Date/time seen: 01/25/21 13:21 Swelling and edema continue to improve with ongoing diuresis; renal function holding steady in spite of aggressive IV diuresis; Echo results noted but unable to cardiac catheterization contraindicated by anemia issues and renal dysfunction; no apparent distress voiced at this time. Exam Narrative: Exam Narrative: General:WD/WN male in NAD Heart: normal S1 and S2; no rub Lungs: decreased at bases Abdomen: soft, nontender, nondistended, positive bowel sounds Extremities: no cyanosis or clubbing; 1+ edema Skin: warm and dry Objective Data Vital Signs Vital Signs: Vital Signs Temp Pulse Resp BP Pulse Ox 01/25/21 12:10 36.7 C 79 16 159/76 H 98 01/25/21 12:00 82 01/25/21 11:10 37.1 C 79 16 143/76 H 94 01/25/21 10:55 36.7 C 78 16 139/66 96 01/25/21 09:31 76 01/25/21 08:00 76 01/25/21 07:45 98 01/25/21 06:32 36.1 C L 75 17 137/65 98 01/25/21 04:00 67 01/25/21 00:00 70 01/24/21 22:42 95 01/24/21 21:39 72 01/24/21 20:38 36.6 C 75 18 117/61 95 01/24/21 20:00 76 01/24/21 16:00 79 Intake/Output Intake/Output: Intake & Output 01/22/21 01/23/21 01/24/21 01/25/21 23:59 23:59 23:59 23:59 Intake Total 1390 2030 1370 1304 Output Total 2890 4900 2200 1550 Balance -1500 -2870 -830 -246 Meds/Results Medications: Active Medications Generic Name Dose Route S
[2021-01-25 16:40] LABS: Glucose Point of Care 189 mg/dl (65-105)
[2021-01-25 20:20] LABS: Glucose Point of Care 208 mg/dl (65-105)
--- NOTE | 2021-01-26 | EST_ITS ---
Patient Info Name: Kari Chacko Age: 45 years : 1975 Gender: Male Ht: 73 in Wt: 213 lbs BSA: 2.25 m2 Exam Date: 01/26/2021 10:54 AM Exam Location: [facility] Stress Patient Status: Inpatient Admit Date: 01/20/2021 Staff Ordering Physician: Connie Garcia MD Attending Provider: Lakhwinder Naylor MD Exercise Technologist: Nika Clayton CT Exercise Physician: Blayne Quinonez MD Exam Type: CA stress mariah w NM Study Info A regadenoson stress test was performed. Summary 1. Normal sinus rhythm. 2. Resting ST/T wave changes. 3. No abnormal ST/T wave changes with exercise. 4. Occasional PVCs. 5. Myocardial perfusion results to be reported by radiology. Protocol: Lexiscan Stress ECG Details Stage: REST Duration (min): 1 min : 46 sec HR (bpm): 77 SBP (mmHg): 171 DBP (mmHg): 86 Stage: REST Duration (min): 8 min : 35 sec HR (bpm): 79 SBP (mmHg): 171 DBP (mmHg): 86 Stage: STAGE 1 Duration (min): 0 min : 51 sec HR (bpm): 78 SBP (mmHg): 167 DBP (mmHg): 90 Stage: RECOVERY Duration (min): 0 min : 9 sec HR (bpm): 78 SBP (mmHg): 167 DBP (mmHg): 90 Stage: RECOVERY Duration (min): 1 min : 9 sec HR (bpm): 80 SBP (mmHg): 167 DBP (mmHg): 90 Stage: RECOVERY Duration (min): 2 min : 9 sec HR (bpm): 80 SBP (mmHg): 167 DBP (mmHg): 90 Stage: RECOVERY Duration (min): 3 min : 9 sec HR (bpm): 80 SBP (mmHg): 141 DBP (mmHg): 77 Stage: RECOVERY Duration (min): 3 min : 26 sec HR (bpm): 81 SBP (mmHg): 141 DBP (mmHg): 77 Rest HR: 79 bpm Peak HR: 81 bpm Rest Sys BP: 171 mmHg Peak Sys BP: 167 mmHg Max Pred HR: 173 bpm % Max Pred HR: 47 % Target HR: 147 bpm Max RPP: 13,527 bpm*mmHg BP Response: Normal blood pressure response Termination Reason: Completed protocol Cardiac Symptoms: None Total Time: 0 min : 51 sec Rest Schmid BP: 86 mmHg Peak Schmid BP: 90 mmHg Total Dose: 0.4 mg Resting ECG Normal sinus rhythm. Resting ST/T wave changes. Stress ECG No abnormal ST/T wave changes with exercise. Arrhythmias Occasional PVCs. Report Signatures
[2021-01-26] MEDS: SALINE LOCK FLUSH 10 ML IV PUSH ×3 (05:52→22:00)
[2021-01-26 06:00] VITALS: BP 129/61; PULSE 67; RESP 16; TEMP 35.9; O2SAT 96
[2021-01-26 06:00] LABS: Basophils Percent Auto 0.4 % (0.2-1.2); Eosinophils Absolute Auto 0.5 K/mm3 (0-0.3); Eosinophils Percent Auto 5.8 % (0-4.4); Hematocrit 26.8 % (42.0-52.0); Hemoglobin 7.8 g/dL (14.0-18.0); Immature Granulocyte Absolute 0.05 K/mm3 (0.00-0.031); Immature Granulocyte Percent A 0.6 % (0-0.5); Lymphocytes Absolute Auto 0.92 K/mm3 (0.9-3.2); Lymphocytes Percent Auto 11.4 % (18.3-44.2); Mean Corpuscular HGB Conc 29.1 g/dl (32-36); Mean Corpuscular Hemoglobin 26.4 pg (26-34); Mean Corpuscular Volume 90.5 fl (80-100); Monocytes Absolute Auto 0.8 K/mm3 (0.1-0.6); Monocytes Percent Auto 9.8 % (2.6-8.5); Neutrophils Absolute Auto 5.8 K/mm3 (1.3-6.7); Nucleated Red Blood Cells Perc 0.2 % (0.0-0.2); Platelet Count Result 237 k/mm3 (150-375); Red Blood Count 2.96 M/mm3 (4.6-6.20); Red Cell Distribution Width 14.4 % (11.5-14.5); White Blood Count 8.1 K/mm3 (4.5-10.0)
[2021-01-26] MEDS: BUMETANIDE INJ 2.5 MG/10 ML VIAL 2 MG IV PUSH ×3 (06:17→23:08)
[2021-01-26 06:30] LABS: Albumin Level 2.5 g/dL (3.5-5.1); Anion Gap 4 mmol/L (8-16); Blood Urea Nitrogen 51 mg/dL (9-20); Calcium 8.4 mg/dL (8.4-10.2); Carbon Dioxide 32 mmol/L (22-30); Chloride 105 mmol/L (98-107); Estimated CRCL calculation 32 ml/min; Estimated Glomerular Filt Rate 23; Glucose 182 mg/dL (75-110); Phosphorus 4.8 mg/dL (2.5-4.5); Potassium 4.2 mmol/L (3.4-5.0); Sodium 141 mmol/L (137-145)
[2021-01-26 06:44] LABS: Anisocytosis 1+ (NORMAL); Hypochromasia 1+ (NORMAL); Platelet Estimate Adequate (Adequate)
[2021-01-26 08:14] LABS: Glucose Point of Care 198 mg/dl (65-105)
--- NOTE | 2021-01-26 09:32 | PCPTNOTE ---
Patient out of room for testing, unable to be seen for PT. PT will continue to follow per plan of care.
[2021-01-26] MEDS: SILVERGEL (ELTA) 45 ML 1 APPLIC TOPICAL (11:34)
[2021-01-26 12:35] VITALS: PULSE 78
[2021-01-26] MEDS: EPOETIN ALFA-EPBX 10,000 UNITS/ML VIAL 10000 UNITS SUB-Q (12:35)
[2021-01-26] MEDS: carvediloL 3.125 MG TABLET PO ×2 (12:35→20:18)
[2021-01-26] MEDS: ASPIRIN 81 MG ENTERIC TABLET PO (12:35)
[2021-01-26] MEDS: IRON SUCROSE COMPLEX 200 MG in SODIUM CHLORIDE 0.9% IV 50 ML 120 MG IVPB (12:35)
[2021-01-26] MEDS: PANTOPRAZOLE 40 MG TABLET PO (12:35)
[2021-01-26] MEDS: ATORVASTATIN 20 MG TABLET PO (12:35)
[2021-01-26 12:37] LABS: Glucose Point of Care 172 mg/dl (65-105)
--- NOTE | 2021-01-26 13:03 | PM.PNCARD ---
Progress Note: A&P Assessment and Plan (1) CHF (congestive heart failure): Code(s): I50.9 - Heart failure, unspecified Status: Acute Assessment and Plan: Acute systolic CHF, probably ischemic. Metoprolol discontinued, changed to carvedilol 3.125 mg p.o. b.i.d. Diuresing very very well, without aggravating renal dysfunction. Mildly hypertensive. No DEMARCUS or ARB/spironolactone at this point because of renal failure. (2) Cardiomyopathy: Code(s): I42.9 - Cardiomyopathy, unspecified Status: Acute Assessment and Plan: Probably ischemic. Unable to perform left heart catheterization due to renal function. Lexiscan stress test performed today. Awaiting results - recommendations to follow (3) NSTEMI (non-ST elevated myocardial infarction): Code(s): I21.4 - Non-ST elevation (NSTEMI) myocardial infarction Status: Acute Assessment and Plan: Continue aspirin, beta-malik, added atorvastatin 20 mg daily. LDL cholesterol was 40 on 01/22/2021. (4) GLENN (acute kidney injury): Code(s): N17.9 - Acute kidney failure, unspecified Status: Acute Assessment and Plan: Improving (5) Peripheral vascular disease: Code(s): I73.9 - Peripheral vascular disease, unspecified Status: Acute Assessment and Plan: Status post amputation (6) Anemia, iron deficiency: Code(s): D50.9 - Iron deficiency anemia, unspecified Status: Acute Assessment and Plan: Hgb drop while on heparin, rec'd 1 unit PRCB's, receiving iron supplementation parenterally. Heparin d/c'd. Would need further evaluation prior to cath and poss stent which would commit him to dual anti-platelet therapy. Subjective Date/time seen: 01/26/21 13:03 Interval history: This is 45-year-old Kyrgyz-speaking with past history of type 2 diabetes, right leg amputation who presents to the hospital with 1 day of severe diarrhea. He also complained of some shortness of breath and central chest pain. We are following him for acute systolic heart failure, volume overload, cardiomyopathy EF 40-45% probably ischemic, and a NSTEMI , with a peak troponin of 3.2. Also found have (acute?) renal failure and an iron deficiency anemia. 01/23/2021: Feels about the same. No chest pain at this point. No shortness of breath. Right leg is wrapped. Change metoprolol to carvedilol, avoiding DEMARCUS-inhibitor etc. because of chronic kidney disease. Added statin. Needs an ischemia evaluation, preferably a cardiac catheterization, prior to discharge. 01/24/2021: Says he is doing good, no pain or shortness of breath. Was up in a chair earlier. Urinating a lot. Remains on heparin drip. Getting Bumex 2 mg q.8 hours., With an excellent diuresis yesterday, 2000 cc and and [address] Conti suspects some of the edema is due to nephrotic syndrome. Date of service 01/25/2021: Still diuresing well, no change in renal function. Heparin drip was discontinued when his hematocrit dropped to 23 and he is getting a unit of pack cells. Says he is feeling good, no pain or shortness of breath. Diuresing, 1400 in, 2200 out yesterday. Date of service 01/26/2021: Patient feeling well today. He underwent Lexiscan nuclear stress test earlier today. He denies shortness of breath but does state that he occasionally feels chest pain. He states that last night he awoke from sleep because of chest pain. Will discuss results of Lexiscan stress test with patient when they are available. Renal function stable. Review of Systems Constitutional: Constitutional: Reports no additional constitutional complaints, Denies chills, Reports fatigue, Denies fever(s), Denies headache(s), Reports lethargy, Denies poor appetite and Reports weakness Eyes: Eyes: Denies eye discharge, Denies loss of vision, Denies eye pain
[2021-01-26 14:00] VITALS: BP 136/67; PULSE 76; RESP 18; TEMP 36.1; O2SAT 96
--- NOTE | 2021-01-26 15:25 | P.PNIM_ITS ---
Progress Note: A&P Assessment and Plan (1) NSTEMI (non-ST elevated myocardial infarction): Code(s): I21.4 - Non-ST elevation (NSTEMI) myocardial infarction Status: Acute Assessment and Plan: cardiology julio cwkeyshawn. udneroing lexiscan today for further evlauation. defered cardiac cath due to anemia needing transfusion. (2) Shortness of breath: Code(s): R06.02 - Shortness of breath Status: Acute Assessment and Plan: related to cardiomyopathy. acute systolic CHF, liekly ischemic. on diuresis with improvement (3) Metabolic acidosis: Code(s): E87.2 - Acidosis Status: Acute (4) Abnormal results of kidney function studies: Code(s): R94.4 - Abnormal results of kidney function studies Status: Acute Assessment and Plan: avoid nephrotoxi. likley from chf. no acei or arb due to renal dysfunction. (5) Buttock wound: Code(s): S31.809A - Unspecified open wound of unspecified buttock, initial encounter Status: Acute Assessment and Plan: wound team laureen. (6) Below knee amputation: Code(s): S88.119A - Complete traumatic amputation at level between knee and ankle, unspecified lower leg, initial encounter Status: Acute Assessment and Plan: SEcondary to poor DM control (7) GLENN (acute kidney injury): Code(s): N17.9 - Acute kidney failure, unspecified Status: Acute Assessment and Plan: CREAT is 3 hydrate wit fluids consult nephrology watch UO renal function remains stable. nephrology following. (8) Diabetes: Code(s): E11.9 - Type 2 diabetes mellitus without complications Status: Chronic Assessment and Plan: ACCUCHECKS, SSI (9) Gastroenteritis: Code(s): K52.9 - Noninfective gastroenteritis and colitis, unspecified Status: Acute Assessment and Plan: ?Moderate pleural effusions right greater than left, adjacent atelectasis. Anasarca. consult GI order liver and hep panel ?Nausea and vomiting secondary to infection (10) Acute hyperkalemia: Code(s): E87.5 - Hyperkalemia Status: Acute Assessment and Plan: POtassium level is high give kayelexate and watch potassium levels (11) Anemia: Code(s): D64.9 - Anemia, unspecified Status: Acute Assessment and Plan: watch HB occult test ordered transfued one unit, appropriate rise today. continue tomonitor. (12) Anasarca: Code(s): R60.1 - Generalized edema Status: Acute (13) Pleural effusion, bilateral: Code(s): J90 - Pleural effusion, not elsewhere classified Status: Acute (14) CHF (congestive heart failure): Code(s): I50.9 - Heart failure, unspecified Status: Acute Additional Plan 45 yo Croatian speaking male w DM, HTN, obesity, h/o RLE amputation 2/2 DM, is admitted w c/o diarrhea. He is noted to be in volume overload with elevated troponin and GLENN. nephro and cardiology were consulted. His wounds over LLE and buttocks were viewed by ID and not believed to be infected. Local wound care was recommended. He was placed on Bumex 2 mg IV q.8 hours after one dose of Metolazone 5 mg p.o. given. and heparin gtt. in addition to ASA and BB. Pt has improved since admission, reporting less work of breathing. 01/22/21 pt feeling better diarrhea has resolved cont current care recs from nephro and cardio appreciated c/s wound care for eval cont local wound care per RN (excellent care of pt appreciated) pt with hypoglycemia, not receiving antihyperglycemics will cont to monitor (pm
--- NOTE | 2021-01-26 16:55 | PM.PNNEP ---
Progress Note: A&P Assessment and Plan (1) Abnormal results of kidney function studies: Code(s): R94.4 - Abnormal results of kidney function studies Status: Acute Assessment and Plan: acute versus acute on chronic versus chronic??? no reported history per patient creatinine stable (in spite of diuretics/diuresis) multiple risk factors for CKD - diabetes, hypertension, vascular disease and now CAD evaluation to date: - normal renal ultrasound - urine electrolytes non-prerenal - nephrotic range proteinuria (almost 9 grams!!) - negative urine eosinophils - complements normal - further serologies pending consider renal biopsy for a definitive diagnosis?? follow trend of repeat labs and UOP (2) Shortness of breath: Code(s): R06.02 - Shortness of breath Status: Acute Assessment and Plan: clinically better presumably due to volume overload continue diuresis follow respiratory status (3) Anasarca: Code(s): R60.1 - Generalized edema Status: Acute Assessment and Plan: Cardiology following suspect nephrotic range proteinuria (and likely nephrotic syndrome) playing a role continue aggressive diuresis Echo results noted -- EF 40 - 45% follow I/Os and daily weights (4) Anemia: Code(s): D64.9 - Anemia, unspecified Status: Acute Assessment and Plan: partly related to #1 iron deficiency noted as well by anemia studies however, also guaiac positive -- GI consulted empirically on Epogen while hospitalized on IV venofer PRBC transfusion per protocol (5) Hypertension: Code(s): I10 - Essential (primary) hypertension Status: Acute Assessment and Plan: running a bit high despite diuresis medication adjustments noted by Cardiology follow trend of hemodynamics (6) Metabolic acidosis: Code(s): E87.2 - Acidosis Status: Acute Assessment and Plan: probably due to previous diarrhea, 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 Subjective Date/time seen: 01/26/21 16:55 Appears to be doing better today; tolerated PRBC transfusion yesterday; still has on/off chest pain although his shortness of breath (exertional and at rest) seem to be doing better; continues to diuresis reasonably well; s/p stress test earlier today. Exam Narrative: Exam Narrative: General:WD/WN male in NAD Heart: normal S1 and S2; no rub Lungs: decreased at bases Abdomen: soft, nontender, nondistended, positive bowel sounds Extremities: no cyanosis or clubbing; 1+ edema Skin: warm and dry Objective Data Vital Signs Vital Signs: Vital Signs Temp Pulse Resp BP Pulse Ox 01/26/21 14:00 36.1 C L 76 18 136/67 96 01/26/21 12:35 78 01/26/21 06:00 35.9 C L 67 16 129/61 96 01/25/21 20:32 36.7 C 74 18 149/69 H 94 01/25/21 20:31 72 Intake/Output Intake/Output: Intake & Output 01/23/21 01/24/21 01/25/21 01/26/21 23:59 23:59 23:59 23:59 Intake Total 2030 1370 1694 790 Output Total 4900 2200 1550 2050 Balance -2870 -830 144 -1260 Meds/Results Medications: Active Medications Generic Name Dose Route Start Last Admin Trade Name Freq PRN Reason Stop Dose Admin Acetaminophen 650 mg 01/19/21 23:43 Acetaminophen 325 Mg Tablet PO Q4H PRN Mild Pain (1-3) or Fever Hydrocodone Bitart/Acetaminophen 1 tab 01/23/21 18:09 01/24/21 14:27 Hydrocodone/Acetaminophen (*Crx) 5-325 Mg Tablet PO 1 tab Q4H PRN Administration Pain Rated 7-10 Aspirin 81 mg 01/22/21 11:00
--- NOTE | 2021-01-26 16:55 | P.PNNP_ITS ---
Progress Note: A&P Assessment and Plan (1) Abnormal results of kidney function studies: Code(s): R94.4 - Abnormal results of kidney function studies Status: Acute Assessment and Plan: * acute versus acute on chronic versus chronic??? * no reported history per patient * creatinine stable (in spite of diuretics/diuresis) * multiple risk factors for CKD - diabetes, hypertension, vascular disease and now CAD * evaluation to date: - normal renal ultrasound - urine electrolytes non-prerenal - nephrotic range proteinuria (almost 9 grams!!) - negative urine eosinophils - complements normal - further serologies pending * consider renal biopsy for a definitive diagnosis?? * follow trend of repeat labs and UOP (2) Shortness of breath: Code(s): R06.02 - Shortness of breath Status: Acute Assessment and Plan: * clinically better * presumably due to volume overload * continue diuresis * follow respiratory status (3) Anasarca: Code(s): R60.1 - Generalized edema Status: Acute Assessment and Plan: * Cardiology following * suspect nephrotic range proteinuria (and likely nephrotic syndrome) playing a role * continue aggressive diuresis * Echo results noted -- EF 40 - 45% * follow I/Os and daily weights (4) Anemia: Code(s): D64.9 - Anemia, unspecified Status: Acute Assessment and Plan: * partly related to #1 * iron deficiency noted as well by anemia studies * however, also guaiac positive -- GI consulted * empirically on Epogen while hospitalized * on IV venofer * PRBC transfusion per protocol (5) Hypertension: Code(s): I10 - Essential (primary) hypertension Status: Acute Assessment and Plan: * running a bit high despite diuresis * medication adjustments noted by Cardiology * follow trend of hemodynamics (6) Metabolic acidosis: Code(s): E87.2 - Acidosis Status: Acute Assessment and Plan: * probably due to previous diarrhea, 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 Subjective Date/time seen: 01/26/21 16:55 Appears to be doing better today; tolerated PRBC transfusion yesterday; still has on/off chest pain although his shortness of breath (exertional and at rest) seem to be doing better; continues to diuresis reasonably well; s/p stress test earlier today. Exam Narrative: Exam Narrative: General:WD/WN male in NAD Heart: normal S1 and S2; no rub Lungs: decreased at bases Abdomen: soft, nontender, nondistended, positive bowel sounds Extremities: no cyanosis or clubbing; 1+ edema Skin: warm and dry Objective Data Vital Signs Vital Signs: Vital Signs Temp Pulse Resp BP Pulse Ox 01/26/21 14:00 36.1 C L 76 18 136/67 96 01/26/21 12:35 78 01/26/21 06:00 35.9 C L 67 16 129/61 96 01/25/21 20:32 36.7 C 74 18 149/69 H 94 01/25/21 20:31 72 Intake/Output Intake/Output: Intake & Out
--- NOTE | 2021-01-26 17:09 | WPDGICN ---
Assessment and Plan Assessment and plan (1) Anemia, iron deficiency: Code(s): D50.9 - Iron deficiency anemia, unspecified Status: Acute Assessment and Plan: nver had scopes, will proceed tomorrow with egd and colonoscopy to assess if gi blood loss- patient may need anticoagulation based on cardiac work up anemia also could be multifactorial from chronic medical illness, ckd, etc (2) Gastroenteritis: Code(s): K52.9 - Noninfective gastroenteritis and colitis, unspecified Status: Acute Assessment and Plan: diarrhea resolved now but will do also colonoscopy tomorrow (3) Occult blood in stools: Code(s): R19.5 - Other fecal abnormalities Status: Acute Assessment and Plan: continue to monitor (4) GLENN (acute kidney injury): Code(s): N17.9 - Acute kidney failure, unspecified Status: Acute Assessment and Plan: nephrology on board (5) NSTEMI (non-ST elevated myocardial infarction): Code(s): I21.4 - Non-ST elevation (NSTEMI) myocardial infarction Status: Acute Assessment and Plan: evaluated by cardiology (6) Below knee amputation: Code(s): S88.119A - Complete traumatic amputation at level between knee and ankle, unspecified lower leg, initial encounter Status: Acute (7) CHF (congestive heart failure): Code(s): I50.9 - Heart failure, unspecified Status: Acute (8) Peripheral vascular disease: Code(s): I73.9 - Peripheral vascular disease, unspecified Status: Acute (9) Cardiomyopathy: Code(s): I42.9 - Cardiomyopathy, unspecified Status: Acute GI Consult Note Consult date/time: 01/26/21 17:09 Reason for consult: acute on chronic blood loss anemia HPI: Gustavo Chacko is a 45 year old male with history of diabetes, peripheral vascular disease, right [id number] amputation, left great toe amputation. He came to ER 01/20/21 with new onset of diarrhea for only couple of days that now has resolved, he was admitted after found to have renal failure (creatinine ~ 3- patient unaware of kidney disease), also had anemia with hb 7.8-8.8, found to have troponin elevated at 3 and flat without ischemic changes on EKG but also evaluated by cardiology (just complete lexiscan), also had shortness of breath and chest pain. We do not have previous lab data on him and says that used to see a primary doctor locally (originally from [place]). He only speaks Guyanese which I used to communicate with him. I am called today because hb dropped to 6.8 and received blood transfusion, denies overt gib but never had scopes. Review of Systems Constitutional: Constitutional: Denies chills Eyes: Eyes: Reports no additional eye complaints ENT: Reports Normal hearing present Cardiovascular: Cardiovascular: Reports chest pain Respiratory: Respiratory: Denies cough Gastrointestinal: Gastrointestinal: Denies melena and Denies hematochezia Genitourinary: Genitourinary: Denies dysuria Musculoskeletal: Musculoskeletal: Denies back pain Integumentary/Breasts: Skin/Breast: Reports system reviewed and no additional complaints, except as docu Neurologic: Denies headache(s) Psychiatric: Psychiatric: Denies behavioral changes PMFSH Past Medical History Medical History Abnormal results of kidney function studies Diabetes Metabolic acidosis Shortness of breath Surgical History Surgical History Below knee amputation Social History Social History Social History: Lives at home with family. Smoking status: Never smoker Alcohol intake: unknown Substance use: never Substance use type: does not use Gender identity (if verbalized by the patient): Male Spiritual care concerns: No Meds Home Medications and Allergies Home Medications Medication
[2021-01-26 18:32] LABS: Glucose Point of Care 257 mg/dl (65-105)
[2021-01-26] MEDS: polyethylene glycoL 3350 238 GM BOTTLE PO (18:39)
[2021-01-26] MEDS: INSULIN ASPART (*BKC) 100 UNITS/ML SUB-Q (18:39)
[2021-01-26] MEDS: BISACODYL 5 MG TABLET EC 20 MG PO (18:39)
--- NOTE | 2021-01-26 18:55 | PC.NURSE ---
Consent for EGD and Colonoscopy done via [id number] and [employer] #[id number]. Patient refused to initial each box after multiple attempts to prompt per [place], textbook associate witnessed consent and signed form with this nurse.
[2021-01-26 20:15] VITALS: BP 137/66; PULSE 83; RESP 18; TEMP 36; O2SAT 96
[2021-01-26 20:18] VITALS: PULSE 83
[2021-01-26 22:20] LABS: Glucose Point of Care 250 mg/dl (65-105)
[2021-01-27] VITALS (9 sets, daily range): BP systolic 123–150; BP diastolic 59–85; PULSE 64–84; RESP 16–30; TEMP 36.2–36.4; O2SAT 92–100
[2021-01-27] MEDS: MAGNESIUM CITRATE 300 ML BTL PO (04:31)
[2021-01-27] MEDS: SALINE LOCK FLUSH 10 ML IV PUSH ×3 (05:19→20:30)
[2021-01-27 05:39] LABS: Basophils Absolute Auto 0.1 K/mm3 (0.0-0.1); Basophils Percent Auto 0.6 % (0.2-1.2); Eosinophils Absolute Auto 0.5 K/mm3 (0-0.3); Eosinophils Percent Auto 6.4 % (0-4.4); Hematocrit 26.8 % (42.0-52.0); Hemoglobin 7.9 g/dL (14.0-18.0); Immature Granulocyte Absolute 0.05 K/mm3 (0.00-0.031); Immature Granulocyte Percent A 0.6 % (0-0.5); Lymphocytes Absolute Auto 1.21 K/mm3 (0.9-3.2); Lymphocytes Percent Auto 15.2 % (18.3-44.2); Mean Corpuscular HGB Conc 29.5 g/dl (32-36); Mean Corpuscular Hemoglobin 26.6 pg (26-34); Mean Corpuscular Volume 90.2 fl (80-100); Mean Platelet Volume 11.6 fl (7.4-10.4); Monocytes Absolute Auto 0.8 K/mm3 (0.1-0.6); Monocytes Percent Auto 10.2 % (2.6-8.5); Neutrophils Absolute Auto 5.3 K/mm3 (1.3-6.7); Nucleated Red Blood Cells Perc 0.5 % (0.0-0.2); Platelet Count Result 240 k/mm3 (150-375); Red Blood Count 2.97 M/mm3 (4.6-6.20); Red Cell Distribution Width 14.2 % (11.5-14.5)
[2021-01-27 05:42] LABS: Albumin Level 2.6 g/dL (3.5-5.1); Anion Gap 6 mmol/L (8-16); Blood Urea Nitrogen 52 mg/dL (9-20); Calcium 8.3 mg/dL (8.4-10.2); Carbon Dioxide 31 mmol/L (22-30); Chloride 105 mmol/L (98-107); Estimated CRCL calculation 26 ml/min; Estimated Glomerular Filt Rate 18; Glucose 234 mg/dL (75-110); Phosphorus 4.7 mg/dL (2.5-4.5); Potassium 3.9 mmol/L (3.4-5.0); Sodium 142 mmol/L (137-145)
[2021-01-27] MEDS: BUMETANIDE INJ 2.5 MG/10 ML VIAL 2 MG IV PUSH ×2 (06:23→17:13)
[2021-01-27] MEDS: IRON SUCROSE COMPLEX 200 MG in SODIUM CHLORIDE 0.9% IV 50 ML 120 MG IVPB (09:40)
[2021-01-27] MEDS: ATORVASTATIN 20 MG TABLET PO (09:40)
[2021-01-27] MEDS: PANTOPRAZOLE 40 MG TABLET PO (09:40)
[2021-01-27] MEDS: carvediloL 3.125 MG TABLET PO ×2 (09:40→20:40)
[2021-01-27] MEDS: ASPIRIN 81 MG ENTERIC TABLET PO (09:40)
[2021-01-27] MEDS: INSULIN ASPART (*BKC) 100 UNITS/ML SUB-Q (09:41)
[2021-01-27 09:42] LABS: Glucose Point of Care 216 mg/dl (65-105)
[2021-01-27] MEDS: SILVERGEL (ELTA) 45 ML 1 APPLIC TOPICAL (09:57)
--- NOTE | 2021-01-27 10:15 | PM.PNCARD ---
Progress Note: A&P Assessment and Plan (1) CHF (congestive heart failure): Code(s): I50.9 - Heart failure, unspecified <DAVONTE Scott - Last Filed: 01/27/21 17:04> Status: Acute <DAVONTE Scott - Last Filed: 01/27/21 17:04> Assessment and Plan: Acute systolic CHF. Ischemic etiology confimed by lexiscan nuclear stress test. Metoprolol discontinued, changed to carvedilol 3.125 mg p.o. b.i.d. Diuresing very very well, without aggravating renal dysfunction. Mildly hypertensive. No DEMARCUS or ARB/spironolactone at this point because of renal failure. <DAVONTE Scott - Last Filed: 01/27/21 17:04> (2) Cardiomyopathy: Code(s): I42.9 - Cardiomyopathy, unspecified <DAVONTE Scott - Last Filed: 01/27/21 17:04> Status: Inactive <DAVONTE Scott - Last Filed: 01/27/21 17:04> Assessment and Plan: Lexiscan stress test performed 01/26/21 showed: 1. Large area of severe infarct involving apical lateral and mid to basal anterolateral and inferolateral segments of left ventricle. 2. Left ventricular ejection fraction measuring 45%. Unable to initiate DEMARCUS or ARB at this time due to renal function. On coreg and bumetanide. <DAVONTE Scott - Last Filed: 01/27/21 17:04> (3) NSTEMI (non-ST elevated myocardial infarction): Code(s): I21.4 - Non-ST elevation (NSTEMI) myocardial infarction <DAVONTE Scott - Last Filed: 01/27/21 17:04> Status: Inactive <DAVONTE Scott - Last Filed: 01/27/21 17:04> Assessment and Plan: Continue aspirin, beta-malik, added atorvastatin 20 mg daily. LDL cholesterol was 40 on 01/22/2021. <DAVONTE Scott - Last Filed: 01/27/21 17:04> (4) GLENN (acute kidney injury): Code(s): N17.9 - Acute kidney failure, unspecified <DAVONTE Scott - Last Filed: 01/27/21 17:04> Status: Inactive <DAVONTE Scott - Last Filed: 01/27/21 17:04> Assessment and Plan: Improving <DAVONTE Scott - Last Filed: 01/27/21 17:04> (5) Peripheral vascular disease: Code(s): I73.9 - Peripheral vascular disease, unspecified <DAVONTE Scott - Last Filed: 01/27/21 17:04> Status: Inactive <DAVONTE Scott - Last Filed: 01/27/21 17:04> Assessment and Plan: Status post amputation <DAVONTE Soctt - Last Filed: 01/27/21 17:04> (6) Anemia, iron deficiency: Code(s): D50.9 - Iron deficiency anemia, unspecified <DAVONTE Scott - Last Filed: 01/27/21 17:04> Status: Acute <DAVONTE Scott - Last Filed: 01/27/21 17:04> Assessment and Plan: Hgb drop while on heparin, rec'd 1 unit PRCB's, receiving iron supplementation parenterally. Heparin d/c'd. GI evaluation today with EGD, colonoscopy to identify any GI source of bleeding. <DAVONTE Scott - Last Filed: 01/27/21 17:04> Additional Plan Attending addendum: Patient personally seen and examined at bedside. Agree with above documentation and plan of care as outlined. Patient denies chest pain or shortness of breath. He was mildly tachypneic with conversation but comfortable sitting upright in bed. exam crackles bilaterally lower 3rd. cardiac exam regular rate rhythm S1-S2 abdominal exam soft nontender nondistended positive bowel sounds throughout extremities right BKA with 1 to 2+ edema, 2-3+ left lower extremity edema extending up to the thighs, pitting. Bandaged left lower extremity up to the knee. Neuro exam nonfocal. Psychiatric mood, appropriate impression/ plan of care: with abnormal stress tests with LV dysfunction, mild EF 45%, elevated troponin concerning for underlying CAD. Unable to proceed with invasive angiography given worsening renal failure, anemia and initial concern for possible GI blood loss. Endoscopy revealed diverticulosis but without evidence of bleeding.
--- NOTE | 2021-01-27 10:15 | P.PNNP_ITS ---
Progress Note: A&P Assessment and Plan (1) Abnormal results of kidney function studies: Code(s): R94.4 - Abnormal results of kidney function studies Status: Acute Assessment and Plan: * acute versus acute on chronic versus chronic??? * no reported history per patient * creatinine up a bit today (diuretics/diuresis finally catching up with him?) * multiple risk factors for CKD - diabetes, hypertension, vascular disease and now CAD * evaluation to date: - normal renal ultrasound - urine electrolytes non-prerenal - nephrotic range proteinuria (almost 9 grams!!) - negative urine eosinophils - complements normal - positive ROE and serum immunofixation with monoclonal band IgG kappa is suspected * we may have to consider renal biopsy for a definitive diagnosis.... * follow trend of repeat labs and UOP (2) Shortness of breath: Code(s): R06.02 - Shortness of breath Status: Acute Assessment and Plan: * clinically better * presumably due to volume overload * continue diuresis - given rise in creatinine, will decrease bumex to q12 frequency * follow respiratory status (3) Anasarca: Code(s): R60.1 - Generalized edema Status: Acute Assessment and Plan: * Cardiology following * suspect nephrotic range proteinuria (and likely nephrotic syndrome) playing a role * continue diuresis * Echo results noted -- EF 40 - 45% * follow I/Os and daily weights (4) Anemia: Code(s): D64.9 - Anemia, unspecified Status: Inactive Assessment and Plan: * partly related to #1 * iron deficiency noted as well by anemia studies * however, also guaiac positive -- GI consulted * empirically on Epogen while hospitalized * on IV venofer * PRBC transfusion per protocol (5) Hypertension: Code(s): I10 - Essential (primary) hypertension Status: Inactive Assessment and Plan: * running a bit high despite diuresis * medication adjustments noted by Cardiology * follow trend of hemodynamics (6) Metabolic acidosis: Code(s): E87.2 - Acidosis Status: Acute Assessment and Plan: * probably due to previous diarrhea, 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 Subjective Date/time seen: 01/27/21 10:15 Noted plans for EGD/colonoscopy today for further evaluation of of his anemia and guaiac positive stools; breathing and edema continue to improve; no other acute issues or problems noted overnight or earlier this AM; no acute distress noted. Exam Narrative: Exam Narrative: General:WD/WN male in NAD Heart: normal S1 and S2; no rub Lungs: decreased at bases Abdomen: soft, nontender, nondistended, positive bowel sounds Extremities: no cyanosis or clubbing; 1+ edema Skin: warm and dry Objective Data Vital Signs Vital Signs: Vital Signs Temp Pulse Resp BP Pulse Ox 01/27/21 09:40 84 01/27/21 06:10 36.2 C L 80 16 147/71 H 99 01/26/21 20:18 83 01/26/21 20:15 36.0 C L 83 18 137/66 96
--- NOTE | 2021-01-27 10:15 | PM.PNNEP ---
Progress Note: A&P Assessment and Plan (1) Abnormal results of kidney function studies: Code(s): R94.4 - Abnormal results of kidney function studies Status: Acute Assessment and Plan: acute versus acute on chronic versus chronic??? no reported history per patient creatinine up a bit today (diuretics/diuresis finally catching up with him?) multiple risk factors for CKD - diabetes, hypertension, vascular disease and now CAD evaluation to date: - normal renal ultrasound - urine electrolytes non-prerenal - nephrotic range proteinuria (almost 9 grams!!) - negative urine eosinophils - complements normal - positive ROE and serum immunofixation with monoclonal band IgG kappa is suspected we may have to consider renal biopsy for a definitive diagnosis.... follow trend of repeat labs and UOP (2) Shortness of breath: Code(s): R06.02 - Shortness of breath Status: Acute Assessment and Plan: clinically better presumably due to volume overload continue diuresis - given rise in creatinine, will decrease bumex to q12 frequency follow respiratory status (3) Anasarca: Code(s): R60.1 - Generalized edema Status: Acute Assessment and Plan: Cardiology following suspect nephrotic range proteinuria (and likely nephrotic syndrome) playing a role continue diuresis Echo results noted -- EF 40 - 45% follow I/Os and daily weights (4) Anemia: Code(s): D64.9 - Anemia, unspecified Status: Inactive Assessment and Plan: partly related to #1 iron deficiency noted as well by anemia studies however, also guaiac positive -- GI consulted empirically on Epogen while hospitalized on IV venofer PRBC transfusion per protocol (5) Hypertension: Code(s): I10 - Essential (primary) hypertension Status: Inactive Assessment and Plan: running a bit high despite diuresis medication adjustments noted by Cardiology follow trend of hemodynamics (6) Metabolic acidosis: Code(s): E87.2 - Acidosis Status: Acute Assessment and Plan: probably due to previous diarrhea, 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 Subjective Date/time seen: 01/27/21 10:15 Noted plans for EGD/colonoscopy today for further evaluation of of his anemia and guaiac positive stools; breathing and edema continue to improve; no other acute issues or problems noted overnight or earlier this AM; no acute distress noted. Exam Narrative: Exam Narrative: General:WD/WN male in NAD Heart: normal S1 and S2; no rub Lungs: decreased at bases Abdomen: soft, nontender, nondistended, positive bowel sounds Extremities: no cyanosis or clubbing; 1+ edema Skin: warm and dry Objective Data Vital Signs Vital Signs: Vital Signs Temp Pulse Resp BP Pulse Ox 01/27/21 09:40 84 01/27/21 06:10 36.2 C L 80 16 147/71 H 99 01/26/21 20:18 83 01/26/21 20:15 36.0 C L 83 18 137/66 96 01/26/21 14:00 36.1 C L 76 18 136/67 96 01/26/21 12:35 78 Intake/Output Intake/Output: Intake & Output 01/24/21 01/25/21 01/26/21 01/27/21 23:59 23:59 23:59 23:59 Intake Total 1370 9515 414 0349 Output Total 2200 1550 2050 1300 Balance -830 144 -1210 1300 Meds/Results Medications: Active Medications Generic Name Dose Route Start Last Admin Trade Name Freq PRN Reason Stop Dose Admin Acetaminophen 650 mg 01/19/21 23:43 Acetaminophen 325 Mg Tablet PO Q4H PRN Mild Pain (1-3) or Fever Hydrocodone Bitart/Acetaminophen 1 tab 01/23/21 18
--- NOTE | 2021-01-27 10:53 | PCNWS ---
Weekly nutritional screen. Patient is tolerating current diet with adequate intake. No weight loss reported. No nutritional needs at this time.
--- NOTE | 2021-01-27 13:45 | WPDANESEPPF ---
Anes - Initial Pre Proc Eval Procedure: Operation Date: 01/27/21 11:45 Proposed Procedures p Esophagogastroduodenoscopy & Colonoscopy - Freddie Delgado MD Date/Time: 01/27/21 13:45 Surgeon: Lakhwinder Naylor MD Pre Op Diagnosis: Hyperkalemia, Renal Failure,Enteritis,Occult GI Bl Patient Data Age: 45 Gender: M Height: 6 ft 1 in Weight: 96.2 kg Last Vital Signs Temp 36.2 C L 01/27/21 06:10 Pulse 84 01/27/21 09:40 Resp 16 01/27/21 06:10 BP 147/71 H 01/27/21 06:10 Pulse Ox 99 01/27/21 06:10 Allergies Allergy/AdvReac Type Severity Reaction Status Date / Time No Known Allergies Allergy Verified 01/19/21 20:35 Home Medications Medication Instructions Recorded Confirmed Type glipizide 10 mg PO DAILY 01/19/21 01/20/21 History metformin 1,000 mg PO BID 01/19/21 01/20/21 History Laboratory Tests 01/26/21 01/26/21 01/27/21 18:30 22:17 05:15 WBC 8.0 K/mm3 K/mm3 (4.5-10.0) RBC 2.97 M/mm3 L M/mm3 (4.6-6.20) Hgb 7.9 g/dL L g/dL (14.0-18.0) Hct 26.8 % L % (42.0-52.0) MCV 90.2 fl fl (80-100) MCH 26.6 pg pg (26-34) MCHC 29.5 g/dl L g/dl (32-36) RDW 14.2 % % (11.5-14.5) Plt Count 240 k/mm3 k/mm3 (150-375) MPV 11.6 fl H fl (7.4-10.4) Immature Gran % (Auto) 0.6 % H % (0-0.5) Neut % (Auto) 67.0 % % (45.5-73.1) Lymph % (Auto) 15.2 % L % (18.3-44.2) Izard % (Auto) 10.2 % H % (2.6-8.5) Eos % (Auto) 6.4 % H % (0-4.4) Baso % (Auto) 0.6 % % (0.2-1.2) Lymph # (Auto) 1.21 K/mm3 K/mm3 (0.9-3.2) Izard # (Auto) 0.8 K/mm3 H K/mm3 (0.1-0.6) Eos # (Auto) 0.5 K/mm3 H K/mm3 (0-0.3) Baso # (Auto) 0.1 K/mm3 K/mm3 (0.0-0.1) Abs Immat Gran (auto) 0.05 K/mm3 H K/mm3 (0.00-0.031) Absolute Neuts (auto) 5.3 K/mm3 K/mm3 (1.3-6.7) Absolute Nucleated RBC 0.0 K/mm3 K/mm3 (0.0-0.012) Nucleated RBC % 0.5 % H % (0.0-0.2) Sodium Potassium Chloride Carbon Dioxide Anion Gap BUN Creatinine Estim Creat Clear Calc Estimated GFR Glucose POC Capillary Glucose 257 mg/dl H mg/dl 250 mg/dl H mg/dl (65-105) (65-105) Calcium Phosphorus Albumin 01/27/21 01/27/21 05:15 09:40 WBC RBC Hgb Hct MCV MCH MCHC RDW Plt Count MPV Immature Gran % (Auto) Neut % (Auto) Lymph % (Auto) Izard % (Auto) Eos % (Auto) Baso % (Auto) Lymph # (Auto) Izard # (Auto) Eos # (Auto) Baso # (Auto) Abs Immat Gran (auto) Absolute Neuts (auto) Absolute Nucleated RBC Nucleated RBC % Sodium 142 mmol/L mmol/L (137-145) Potassium 3.9 mmol/L mmol/L (3.4-5.0) Chloride 105 mmol/L mmol/L (98-107) Carbon Dioxide 31 mmol/L H mmol/L (22-30) Anion Gap 6 mmol/L L mmol/L (8-16) BUN 52 mg/dL H mg/dL (9-20) Creatinine 3.60 mg/dL H mg/dL (0.7-1.3) Estim Creat Clear Calc 26 ml/min ml/min Estimated GFR 18 L (59 - ) Glucose 234 mg/dL H mg/dL (75-110) POC Capillary Glucose 216 mg/dl H mg/dl (65-105) Calcium 8.3 mg/dL L mg/dL (8.4-10.2) Phosphorus 4.7 mg/dL H mg/dL (2.5-4.5) Albumin 2.6 g/dL L g/dL (3.5-5.1) Patient hx anesthesia problems: none Family hx anesthesia problems: none PMFSH Past Medical History Medical History Abnormal results of kidney function studies GLENN (acute kidney injury) Anemia Cardiomyopathy Diabe
[2021-01-27 13:52] LABS: Glucose Point of Care 148 mg/dl (65-105)
[2021-01-27] MEDS: LACTATED RINGERS 1,000 ML 150 ML IV CONT (13:56)
[2021-01-27] MEDS: BENZOCAINE (*SP) 60 ML SPRAY CAN (HURRICAINE) 1 SPRAY MUCOUS MEM (14:10)
--- NOTE | 2021-01-27 14:22 | PCPTNOTE ---
Attempted to see patient for PT, however unable to see patient. Patient out of room for procedure.
--- NOTE | 2021-01-27 14:22 | SUR.OPER ---
Pt left leg wrapped in kerlex.
--- NOTE | 2021-01-27 16:18 | PM.IMPN ---
Progress Note: A&P Assessment and Plan (1) NSTEMI (non-ST elevated myocardial infarction): Code(s): I21.4 - Non-ST elevation (NSTEMI) myocardial infarction Status: Inactive Assessment and Plan: cardiology julio cwkeyshawn. udneroing lexiscan today for further evlauation. defered cardiac cath due to anemia needing transfusion. (2) Shortness of breath: Code(s): R06.02 - Shortness of breath Status: Acute Assessment and Plan: related to cardiomyopathy. acute systolic CHF, liekly ischemic. on diuresis with improvement (3) Metabolic acidosis: Code(s): E87.2 - Acidosis Status: Acute (4) Abnormal results of kidney function studies: Code(s): R94.4 - Abnormal results of kidney function studies Status: Acute Assessment and Plan: avoid nephrotoxi. likley from chf. no acei or arb due to renal dysfunction. (5) Buttock wound: Code(s): S31.809A - Unspecified open wound of unspecified buttock, initial encounter Status: Acute Assessment and Plan: wound team laureen. (6) Below knee amputation: Code(s): S88.119A - Complete traumatic amputation at level between knee and ankle, unspecified lower leg, initial encounter Status: Acute Assessment and Plan: SEcondary to poor DM control (7) GLENN (acute kidney injury): Code(s): N17.9 - Acute kidney failure, unspecified Status: Inactive Assessment and Plan: CREAT is 3 hydrate wit fluids consult nephrology watch UO renal function remains stable. nephrology following. (8) Diabetes: Code(s): E11.9 - Type 2 diabetes mellitus without complications Status: Chronic Assessment and Plan: ACCUCHECKS, SSI (9) Gastroenteritis: Code(s): K52.9 - Noninfective gastroenteritis and colitis, unspecified Status: Acute Assessment and Plan: ?Moderate pleural effusions right greater than left, adjacent atelectasis. Anasarca. consult GI order liver and hep panel ?Nausea and vomiting secondary to infection (10) Acute hyperkalemia: Code(s): E87.5 - Hyperkalemia Status: Acute Assessment and Plan: POtassium level is high give kayelexate and watch potassium levels (11) Anemia: Code(s): D64.9 - Anemia, unspecified Status: Inactive Assessment and Plan: watch HB occult test ordered transfued one unit, appropriate rise today. continue tomonitor. (12) Anasarca: Code(s): R60.1 - Generalized edema Status: Acute (13) Pleural effusion, bilateral: Code(s): J90 - Pleural effusion, not elsewhere classified Status: Acute (14) CHF (congestive heart failure): Code(s): I50.9 - Heart failure, unspecified Status: Acute Additional Plan 45 yo Georgian speaking male w DM, HTN, obesity, h/o RLE amputation 2/2 DM, is admitted w c/o diarrhea. He is noted to be in volume overload with elevated troponin and GLENN. nephro and cardiology were consulted. His wounds over LLE and buttocks were viewed by ID and not believed to be infected. Local wound care was recommended. He was placed on Bumex 2 mg IV q.8 hours after one dose of Metolazone 5 mg p.o. given. and heparin gtt. in addition to ASA and BB. Pt has improved since admission, reporting less work of breathing. 01/22/21 pt feeling better diarrhea has resolved cont current care recs from nephro and cardio appreciated c/s wound care for eval cont local wound care per RN (excellent care of pt appreciated) pt with hypoglycemia, not receiving antihyperglycemics will cont to monitor (pm snack ordered) ECHO pending 01/23/2021 Patient with ongoing persistent hypertension since admission metoprolol changed to Coreg per Cardiology recommendations appreciated GLENN improving hold CHF meds until resolved Patient is uninsured and will need some type of diabetic regimen at discharge. (was only on Metformin prior to admission) HgA1c 10.9; states that he can afford W
[2021-01-27 17:30] LABS: Glucose Point of Care 182 mg/dl (65-105)
[2021-01-27 22:01] LABS: Glucose Point of Care 163 mg/dl (65-105)
[2021-01-28] MEDS: ACETAMINOPHEN 325 MG TABLET 650 MG PO (02:25)
[2021-01-28 03:17] LABS: Basophils Percent Auto 0.5 % (0.2-1.2); Eosinophils Absolute Auto 0.6 K/mm3 (0-0.3); Eosinophils Percent Auto 6.6 % (0-4.4); Hematocrit 26.3 % (42.0-52.0); Hemoglobin 7.5 g/dL (14.0-18.0); Immature Granulocyte Absolute 0.05 K/mm3 (0.00-0.031); Immature Granulocyte Percent A 0.6 % (0-0.5); Lymphocytes Absolute Auto 1.13 K/mm3 (0.9-3.2); Lymphocytes Percent Auto 13.2 % (18.3-44.2); Mean Corpuscular HGB Conc 28.5 g/dl (32-36); Mean Corpuscular Hemoglobin 26.5 pg (26-34); Mean Corpuscular Volume 92.9 fl (80-100); Mean Platelet Volume 10.7 fl (7.4-10.4); Monocytes Absolute Auto 0.7 K/mm3 (0.1-0.6); Monocytes Percent Auto 8.2 % (2.6-8.5); Neutrophils Absolute Auto 6.1 K/mm3 (1.3-6.7); Neutrophils Percent Auto 70.9 % (45.5-73.1); Platelet Count Result 213 k/mm3 (150-375); Red Blood Count 2.83 M/mm3 (4.6-6.20); White Blood Count 8.6 K/mm3 (4.5-10.0)
[2021-01-28 03:39] LABS: Albumin Level 2.4 g/dL (3.5-5.1); Anion Gap 6 mmol/L (8-16); Blood Urea Nitrogen 52 mg/dL (9-20); Calcium 8.3 mg/dL (8.4-10.2); Carbon Dioxide 32 mmol/L (22-30); Chloride 104 mmol/L (98-107); Estimated CRCL calculation 25 ml/min; Estimated Glomerular Filt Rate 17; Glucose 188 mg/dL (75-110); Phosphorus 4.5 mg/dL (2.5-4.5); Potassium 3.9 mmol/L (3.4-5.0); Sodium 142 mmol/L (137-145)
[2021-01-28 05:42] VITALS: BP 142/69; PULSE 66; RESP 14; TEMP 36.1; O2SAT 91
[2021-01-28] MEDS: SALINE LOCK FLUSH 10 ML IV PUSH ×3 (05:47→20:19)
[2021-01-28] MEDS: BUMETANIDE INJ 2.5 MG/10 ML VIAL 2 MG IV PUSH ×2 (05:47→17:56)
[2021-01-28 06:50] LABS: Glucose Point of Care 182 mg/dl (65-105)
[2021-01-28 08:54] VITALS: PULSE 68
[2021-01-28] MEDS: PANTOPRAZOLE 40 MG TABLET PO (08:54)
[2021-01-28] MEDS: ASPIRIN 81 MG ENTERIC TABLET PO (08:54)
[2021-01-28] MEDS: ATORVASTATIN 20 MG TABLET PO (08:54)
[2021-01-28] MEDS: carvediloL 3.125 MG TABLET PO ×2 (08:54→20:18)
[2021-01-28] MEDS: EPOETIN ALFA-EPBX 10,000 UNITS/ML VIAL 10000 UNITS SUB-Q (08:55)
[2021-01-28] MEDS: IRON SUCROSE COMPLEX 200 MG in SODIUM CHLORIDE 0.9% IV 50 ML 120 MG IVPB (08:56)
[2021-01-28] MEDS: SILVERGEL (ELTA) 45 ML 1 APPLIC TOPICAL (08:56)
[2021-01-28] MEDS: ONDANSETRON INJ 4 MG/2 ML VIAL IV PUSH ×2 (11:00→20:26)
[2021-01-28 11:50] LABS: Glucose Point of Care 244 mg/dl (65-105)
[2021-01-28] MEDS: INSULIN ASPART (*BKC) 100 UNITS/ML SUB-Q (12:11)
[2021-01-28 14:00] VITALS: BP 142/73; PULSE 69; RESP 18; TEMP 36; O2SAT 96
--- NOTE | 2021-01-28 15:19 | PM.PNCARD ---
Progress Note: A&P Assessment and Plan (1) CHF (congestive heart failure): Code(s): I50.9 - Heart failure, unspecified <DAVONTE Scott - Last Filed: 01/28/21 15:29> Status: Acute <DAVONTE Scott - Last Filed: 01/28/21 15:29> Assessment and Plan: Acute systolic CHF. Ischemic etiology confimed by lexiscan nuclear stress test. Metoprolol discontinued, changed to carvedilol 3.125 mg p.o. b.i.d. Diuresing very very well, without aggravating renal dysfunction. Mildly hypertensive. No DEMARCUS or ARB/spironolactone at this point because of renal failure. <DAVONTE Scott - Last Filed: 01/28/21 15:29> (2) Cardiomyopathy: Code(s): I42.9 - Cardiomyopathy, unspecified <DAVONTE Scott - Last Filed: 01/28/21 15:29> Status: Inactive <DAVONTE Scott - Last Filed: 01/28/21 15:29> Assessment and Plan: Lexiscan stress test performed 01/26/21 showed: 1. Large area of severe infarct involving apical lateral and mid to basal anterolateral and inferolateral segments of left ventricle. 2. Left ventricular ejection fraction measuring 45%. Unable to initiate DEMARCUS or ARB at this time due to renal function. On coreg and bumetanide. <DAVONTE Scott - Last Filed: 01/28/21 15:29> (3) NSTEMI (non-ST elevated myocardial infarction): Code(s): I21.4 - Non-ST elevation (NSTEMI) myocardial infarction <DAVONTE Scott - Last Filed: 01/28/21 15:29> Status: Inactive <DAVONTE Scott - Last Filed: 01/28/21 15:29> Assessment and Plan: Continue aspirin, beta-malik, added atorvastatin 20 mg daily. LDL cholesterol was 40 on 01/22/2021. <DAVONTE Scott - Last Filed: 01/28/21 15:29> (4) GLENN (acute kidney injury): Code(s): N17.9 - Acute kidney failure, unspecified <DAVONTE Scott - Last Filed: 01/28/21 15:29> Status: Inactive <DAVONTE Scott - Last Filed: 01/28/21 15:29> Assessment and Plan: Renal function worsening. Nephrology is following. <DAVONTE Scott - Last Filed: 01/28/21 15:29> (5) Peripheral vascular disease: Code(s): I73.9 - Peripheral vascular disease, unspecified <DAVONTE Scott - Last Filed: 01/28/21 15:29> Status: Inactive <DAVONTE Scott - Last Filed: 01/28/21 15:29> Assessment and Plan: Status post amputation On aspirin, statin. <DAVONTE Scott - Last Filed: 01/28/21 15:29> (6) Anemia, iron deficiency: Code(s): D50.9 - Iron deficiency anemia, unspecified <DAVONTE Scott - Last Filed: 01/28/21 15:29> Status: Acute <DAVONTE Scott - Last Filed: 01/28/21 15:29> Assessment and Plan: Hgb drop while on heparin, rec'd 1 unit PRCB's, receiving iron supplementation parenterally. Heparin d/c'd. GI evaluation with EGD, colonoscopy to identify any GI source of bleeding - Report pending <DAVONTE Scott - Last Filed: 01/28/21 15:29> Additional Plan <DAVONTE Scott - Last Filed: 01/28/21 15:29> Attending addendum: Patient personally seen and examined at bedside. Agree with above documentation and plan of care as outlined. Patient denies chest pain or shortness of breath. No new complaints. More comfortable conversation lying flat in bed. On exam faint crackles bilaterally lower 3rd. cardiac exam regular rate rhythm S1-S2 abdominal exam soft nontender nondistended positive bowel sounds throughout extremities right BKA with 1 to 2+ edema, 2-3+ left lower extremity edema extending up to the thighs, pitting. Bandaged left lower extremity up to the knee. Neuro exam nonfocal. Psychiatric mood, appropriate Impression/ plan of care: Abnormal stress test with LV dysfunction, mild EF 45%, elevated troponin concerning for underlying CAD. Unable to proceed with invasive angiography given worsening renal failure,
--- NOTE | 2021-01-28 15:51 | PM.PNNEP ---
Progress Note: A&P Assessment and Plan (1) Abnormal results of kidney function studies: Code(s): R94.4 - Abnormal results of kidney function studies Status: Acute Assessment and Plan: acute versus acute on chronic versus chronic??? no reported history per patient creatinine up a bit today (diuretics/diuresis finally catching up with him?) multiple risk factors for CKD - diabetes, hypertension, vascular disease and now CAD evaluation to date: - normal renal ultrasound - urine electrolytes non-prerenal - nephrotic range proteinuria (almost 9 grams!!) - negative urine eosinophils - complements normal - somr serologies still pending but has positive ROE and serum immunofixation with monoclonal band IgG kappa is suspected will proceed with renal biopsy for a definitive diagnosis follow trend of repeat labs and UOP (2) Shortness of breath: Code(s): R06.02 - Shortness of breath Status: Acute Assessment and Plan: clinically better presumably due to volume overload continue diuresis - given rise in creatinine, will hold IV bumex and transition to oral dosing follow respiratory status (3) Anasarca: Code(s): R60.1 - Generalized edema Status: Acute Assessment and Plan: Cardiology following suspect nephrotic range proteinuria (and likely nephrotic syndrome) playing a role continue diuresis as tolerated Echo results noted -- EF 40 - 45% follow I/Os and daily weights (4) Anemia: Code(s): D64.9 - Anemia, unspecified Status: Inactive Assessment and Plan: partly related to #1 iron deficiency noted as well by anemia studies however, also guaiac positive GI following -- s/p EGD + colonoscopy with evidence of bleeding empirically on Epogen while hospitalized s/p IV venofer infusions PRBC transfusion per protocol (5) Hypertension: Code(s): I10 - Essential (primary) hypertension Status: Inactive Assessment and Plan: running a bit high despite diuresis medication adjustments noted by Cardiology follow trend of hemodynamics (6) Metabolic acidosis: Code(s): E87.2 - Acidosis Status: Acute Assessment and Plan: probably due to previous diarrhea, 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), and renal insufficiency was oral bicarbonate to compensate but will discontinue/hold given CO2 level follow CO2 levels (7) Diabetes: Code(s): E11.9 - Type 2 diabetes mellitus without complications Status: Chronic Assessment and Plan: follow accuchecks on SSI Long and extensive discussion (> 20 minutes) with patient regarding his renal dysfunction associated with nephrotic range proteinuria as well as +ROE and abnormal SPEP; suspicion still falls on diabetes as the culprit for his kidney disease but cannot discount some other pathology; I discussed doing a renal biopsy for a definitive diagnosis including the procedure, risk, benefits, pros, cons...etc and the patient is willing to proceed. Will order renal biopsy for tomorrow. Will continue to follow. Subjective Date/time seen: 01/28/21 15:51 Overall, seems to be doing/feeling better; sweling/edema/breathing has improved significantly since admission -- able to converse while laying flat but edema in LEs still present; no other acute issues or problems voiced at the time of my visit. Exam Narrative: Exam Narrative: General:WD/WN male in NAD Heart: normal S1 and S2; no rub Lungs: decreased at bases Abdomen: soft, nontender, nondistended, positive bowel sounds Extremities: no cyanosis or clubbing; 1+ edema Skin: warm and dry Objective Data Vital Signs Vital Signs: Vital Signs Temp Pulse Resp BP Pulse Ox 01/28/21 14:00 36.0 C L 69 18 142/73 H 96 01/28/21 08:54 68 01/28/21 05:42 36.1 C L 66 14 142/69 H 91 01/27/21 20:40
--- NOTE | 2021-01-28 15:51 | P.PNNP_ITS ---
Progress Note: A&P Assessment and Plan (1) Abnormal results of kidney function studies: Code(s): R94.4 - Abnormal results of kidney function studies Status: Acute Assessment and Plan: * acute versus acute on chronic versus chronic??? * no reported history per patient * creatinine up a bit today (diuretics/diuresis finally catching up with him?) * multiple risk factors for CKD - diabetes, hypertension, vascular disease and now CAD * evaluation to date: - normal renal ultrasound - urine electrolytes non-prerenal - nephrotic range proteinuria (almost 9 grams!!) - negative urine eosinophils - complements normal - somr serologies still pending but has positive ROE and serum immunofixation with monoclonal band IgG kappa is suspected * will proceed with renal biopsy for a definitive diagnosis * follow trend of repeat labs and UOP (2) Shortness of breath: Code(s): R06.02 - Shortness of breath Status: Acute Assessment and Plan: * clinically better * presumably due to volume overload * continue diuresis - given rise in creatinine, will hold IV bumex and transition to oral dosing * follow respiratory status (3) Anasarca: Code(s): R60.1 - Generalized edema Status: Acute Assessment and Plan: * Cardiology following * suspect nephrotic range proteinuria (and likely nephrotic syndrome) playing a role * continue diuresis as tolerated * Echo results noted -- EF 40 - 45% * follow I/Os and daily weights (4) Anemia: Code(s): D64.9 - Anemia, unspecified Status: Inactive Assessment and Plan: * partly related to #1 * iron deficiency noted as well by anemia studies * however, also guaiac positive * GI following -- s/p EGD + colonoscopy with evidence of bleeding * empirically on Epogen while hospitalized * s/p IV venofer infusions * PRBC transfusion per protocol (5) Hypertension: Code(s): I10 - Essential (primary) hypertension Status: Inactive Assessment and Plan: * running a bit high despite diuresis * medication adjustments noted by Cardiology * follow trend of hemodynamics (6) Metabolic acidosis: Code(s): E87.2 - Acidosis Status: Acute Assessment and Plan: * probably due to previous diarrhea, 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), and renal insufficiency * was oral bicarbonate to compensate but will discontinue/hold given CO2 level * follow CO2 levels (7) Diabetes: Code(s): E11.9 - Type 2 diabetes mellitus without complications Status: Chronic Assessment and Plan: * follow accuchecks * on SSI Long and extensive discussion (> 20 minutes) with patient regarding his renal dysfunction associated with nephrotic range proteinuria as well as +ROE and abnormal SPEP; suspicion still falls on diabetes as the culprit for his kidney disease but cannot discount some other pathology; I discussed doing a renal biopsy for a definitive diagnosis including the procedure, risk, benefits, pros, cons...etc and the patient is willing to proceed. Will order renal biopsy for tomorrow. Will continue to follow. Subjective Date/time seen: 01/28/21 15:51 Overall, seems to be doing/feeling better; sweling/edema/breathing has improved significantly since admission -- able to converse while laying flat but edema in LEs still present; no other acute issues or problems voiced at the time of my visit. Exam Narrative:
--- NOTE | 2021-01-28 15:58 | PM.IMPN ---
Progress Note: A&P Additional Plan 45 yo Swedish speaking male w DM, HTN, obesity, h/o RLE amputation 2/2 DM, is admitted w c/o diarrhea. He is noted to be in volume overload with elevated troponin and GLENN. nephro and cardiology were consulted. His wounds over LLE and buttocks were viewed by ID and not believed to be infected. Local wound care was recommended. He was placed on Bumex 2 mg IV q.8 hours after one dose of Metolazone 5 mg p.o. given. and heparin gtt. in addition to ASA and BB. Pt has improved since admission, reporting less work of breathing. 01/22/21 pt feeling better diarrhea has resolved cont current care recs from nephro and cardio appreciated c/s wound care for eval cont local wound care per RN (excellent care of pt appreciated) pt with hypoglycemia, not receiving antihyperglycemics will cont to monitor (pm snack ordered) ECHO pending 01/23/2021 Patient with ongoing persistent hypertension since admission metoprolol changed to Coreg per Cardiology recommendations appreciated GLENN improving hold CHF meds until resolved Patient is uninsured and will need some type of diabetic regimen at discharge. (was only on Metformin prior to admission) HgA1c 10.9; states that he can afford [employer] brand insulin @ $25 per vial if necessary c/s PT/ OT encourage OOB to chair (baseline transfers to wheelchair and ambulates w walker) 01/24/2021 Patient feeling a lot better currently stable on room air diuresing very well, down approximately 5 L cont diuretics renal fxn improving BG < 180 ISS ordered but not administered Buttocks wound growing staph aureus and Pseudomonas pt started on zosyn Cardiology, Nephrology, following 01/25/2021 Patient denies any signs of active bleeding however hemoglobin is noted to be less than 7 today despite iron supplementation and EPO prescribed by Nephrology. patient has been on heparin drip for greater than 48 hours. His creatinine remained elevated anticipated medical management for his NSTEMI by Cardiology. Contining aggressive diuresis c/s placed to GI for evaluation of anemia w SFOB+ Dispo discharge home when cleared by GI, Cardiology and Nephrology 01/26/21: hb appropriately krystle with one unit transfusion. cotninue tomonitor. heparin gtt has jatinder stopped now due to worsening sanemia, no overt sign of bleeding. GI consulted for positive FOBT cardiology deferring cath due to anemia and gi bleed. await gi workup lexiscan ordered per cardiology. contiue diureis renal function remains stable. EF notd 40-45%wound cutlrue from buttock gorwingMSSA and pseudomoanas. mariah phuong heinsesar. 01/27 Patient has 45 year male with diabetes and right [id number] amputation there was a concern about the infection along the stump however patient was seen id and does not suspect patient has infection, patient with acute systolic congestive heart failure due to ischemic cardiomyopathy, patient on Coreg, being gently diuresed his symptoms are stable, patient also has anemia was seen by GI and to further evaluate patient is scheduled EGD and colonoscopy today will follow-up further recommendation to follow. 01/28 patient had EGD yesterday essentially normal ED to moderate amount of food retention and stomach, Also patient had colonoscopy it showed diverticulosis without perforation, and colonic polyps biopsies were collected, patient seen by elementary art teacher patient is being gently diuresed, is kidney remains stable, patient is seen by custodian and further recommendation to follow, seen by Dr. asif does not recommend antibiotics as patient does not have an infection on his amputated stump, patient will participate in PT OT may discharge the patient home tomorrow Subjective Date/time seen: 01/28/21 15:58 01/27 Patient has 45 year male with diabetes and right [id number] amputation there was a concern about the infection along the stump however patient was seen id and does not suspect patient has infect
[2021-01-28 16:58] LABS: Glucose Point of Care 199 mg/dl (65-105)
[2021-01-28 20:13] VITALS: BP 148/75; PULSE 69; RESP 16; TEMP 36.4; O2SAT 96
[2021-01-28 20:18] VITALS: PULSE 70
[2021-01-28] MEDS: HYDROcodone/acetaminophen (*CRX) 5-325 MG TABLET 1 TAB PO (20:21)
[2021-01-28 21:15] LABS: Hematocrit 25.8 % (42.0-52.0); Hemoglobin 7.4 g/dL (14.0-18.0)
[2021-01-28 21:59] LABS: Glucose Point of Care 237 mg/dl (65-105)
[2021-01-29] VITALS (8 sets, daily range): BP systolic 123–158; BP diastolic 62–78; PULSE 69–77; RESP 16–18; TEMP 36.2–36.6; O2SAT 91–95
[2021-01-29 05:52] LABS: Basophils Absolute Auto 0.1 K/mm3 (0.0-0.1); Basophils Percent Auto 0.6 % (0.2-1.2); Eosinophils Absolute Auto 0.6 K/mm3 (0-0.3); Eosinophils Percent Auto 5.5 % (0-4.4); Hematocrit 25.7 % (42.0-52.0); Hemoglobin 7.5 g/dL (14.0-18.0); Immature Granulocyte Absolute 0.05 K/mm3 (0.00-0.031); Immature Granulocyte Percent A 0.5 % (0-0.5); Lymphocytes Absolute Auto 1.26 K/mm3 (0.9-3.2); Mean Corpuscular HGB Conc 29.2 g/dl (32-36); Mean Corpuscular Hemoglobin 27.2 pg (26-34); Mean Corpuscular Volume 93.1 fl (80-100); Mean Platelet Volume 10.6 fl (7.4-10.4); Monocytes Absolute Auto 0.7 K/mm3 (0.1-0.6); Monocytes Percent Auto 6.9 % (2.6-8.5); Neutrophils Absolute Auto 7.8 K/mm3 (1.3-6.7); Neutrophils Percent Auto 74.5 % (45.5-73.1); Nucleated Red Blood Cells Perc 0.2 % (0.0-0.2); Platelet Count Result 227 k/mm3 (150-375); Red Blood Count 2.76 M/mm3 (4.6-6.20); Red Cell Distribution Width 13.9 % (11.5-14.5); White Blood Count 10.5 K/mm3 (4.5-10.0)
[2021-01-29] MEDS: SALINE LOCK FLUSH 10 ML IV PUSH ×3 (05:55→22:00)
[2021-01-29 06:04] LABS: Albumin Level 2.6 g/dL (3.5-5.1); Anion Gap 3 mmol/L (8-16); Blood Urea Nitrogen 54 mg/dL (9-20); Calcium 8.1 mg/dL (8.4-10.2); Carbon Dioxide 33 mmol/L (22-30); Chloride 105 mmol/L (98-107); Estimated CRCL calculation 18 ml/min; Estimated Glomerular Filt Rate 12; Glucose 192 mg/dL (75-110); Phosphorus 4.8 mg/dL (2.5-4.5); Potassium 4.1 mmol/L (3.4-5.0); Sodium 141 mmol/L (137-145)
[2021-01-29 06:09] LABS: INR 1.2; Prothrombin Time 15.6 Seconds (11.1-14.7)
[2021-01-29 06:10] LABS: Partial Thromboplastin Time 36.4 SECONDS (22.3-36.8)
[2021-01-29] MEDS: PANTOPRAZOLE 40 MG TABLET PO (09:08)
[2021-01-29] MEDS: carvediloL 3.125 MG TABLET PO ×2 (09:08→20:36)
[2021-01-29] MEDS: ATORVASTATIN 20 MG TABLET PO (09:08)
[2021-01-29] MEDS: SILVERGEL (ELTA) 45 ML 1 APPLIC TOPICAL (09:08)
[2021-01-29 11:53] LABS: Glucose Point of Care 162 mg/dl (65-105)
--- NOTE | 2021-01-29 12:01 | PC.NURSE ---
Patient to US for renal biopsy per stretcher.
[2021-01-29 15:26] LABS: Glucose Point of Care 148 mg/dl (65-105)
--- NOTE | 2021-01-29 16:00 | PM.IMPN ---
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 He is noted to be in volume overload with elevated troponin and GLENN. nephro and cardiology were consulted. His wounds over LLE and buttocks were viewed by ID and not believed to be infected. Local wound care was recommended. He was placed on Bumex 2 mg IV q.8 hours after one dose of Metolazone 5 mg p.o. given. and heparin gtt. in addition to ASA and BB. Pt has improved since admission, reporting less work of breathing. 01/22/21 pt feeling better diarrhea has resolved cont current care recs from nephro and cardio appreciated c/s wound care for eval cont local wound care per RN (excellent care of pt appreciated) pt with hypoglycemia, not receiving antihyperglycemics will cont to monitor (pm snack ordered) ECHO pending 01/23/2021 Patient with ongoing persistent hypertension since admission metoprolol changed to Coreg per Cardiology recommendations appreciated GLENN improving hold CHF meds until resolved Patient is uninsured and will need some type of diabetic regimen at discharge. (was only on Metformin prior to admission) HgA1c 10.9; states that he can afford [employer] brand insulin @ $25 per vial if necessary c/s PT/ OT encourage OOB to chair (baseline transfers to wheelchair and ambulates w walker) 01/24/2021 Patient feeling a lot better currently stable on room air diuresing very well, down approximately 5 L cont diuretics renal fxn improving BG < 180 ISS ordered but not administered Buttocks wound growing staph aureus and Pseudomonas pt started on zosyn Cardiology, Nephrology, following 01/25/2021 Patient denies any signs of active bleeding however hemoglobin is noted to be less than 7 today despite iron supplementation and EPO prescribed by Nephrology. patient has been on heparin drip for greater than 48 hours. His creatinine remained elevated anticipated medical management for his NSTEMI by Cardiology. Contining aggressive diuresis c/s placed to GI for evaluation of anemia w SFOB+ Dispo discharge home when cleared by GI, Cardiology and Nephrology 01/26/21: hb appropriately krystle with one unit transfusion. cotninue tomonitor. heparin gtt has jatinder stopped now due to worsening sanemia, no overt sign of bleeding. GI consulted for positive FOBT cardiology deferring cath due to anemia and gi bleed. await gi workup lexiscan ordered per cardiology. contiue diureis renal function remains stable. EF notd 40-45%wound cutlrue from buttock gorwingMSSA and pseudomoanas. mariah heinsesar. 01/27 Patient has 45 year male with diabetes and right [id number] amputation there was a concern about the infection along the stump however patient was seen id and does not suspect patient has infection, patient with acute systolic congestive heart failure due to ischemic cardiomyopathy, patient on Coreg, being gently diuresed his symptoms are stable, patient also has anemia was seen by GI and to further evaluate patient is scheduled EGD and colonoscopy today will follow-up further recommendation to follow. 01/28 patient had EGD yesterday essentially normal ED to moderate amount of food retention and stomach, Also patient had colonoscopy it showed diverticulosis without perforation, and colonic polyps biopsies were collected, patient seen by political theory professor patient is being gently diuresed, is kidney remains stable, patient is seen by senior solutions engineer and further recommendation to follow, seen by Dr. asif does not recommend antibiotics as patient does not have an infection on his amputated stump, patient will participate in PT OT may discharge the patient home tomorrow 01/29 today patient schedule to have a kidney biopsy he remains clinically stable, patient creatinine is elevated today most likely secondary as patient has been NPO for kidney biopsy, patient with history ischemic cardiomyopathy patient remains clinically
--- NOTE | 2021-01-29 16:24 | PM.PNCARD ---
Progress Note: A&P Assessment and Plan (1) CHF (congestive heart failure): Code(s): I50.9 - Heart failure, unspecified <DAVONTE Scott - Last Filed: 01/29/21 16:35> Status: Acute <DAVONTE Scott - Last Filed: 01/29/21 16:35> Assessment and Plan: Acute systolic CHF. Ischemic etiology confimed by lexiscan nuclear stress test. Metoprolol discontinued, changed to carvedilol 3.125 mg p.o. b.i.d. Diuresing very very well, without aggravating renal dysfunction. Mildly hypertensive. No DEMARCUS or ARB/spironolactone at this point because of renal failure. <DAVONTE Scott - Last Filed: 01/29/21 16:35> (2) Anemia, iron deficiency: Code(s): D50.9 - Iron deficiency anemia, unspecified <DAVONTE Scott - Last Filed: 01/29/21 16:35> Status: Acute <DAVONTE Scott - Last Filed: 01/29/21 16:35> Assessment and Plan: Hgb drop while on heparin, rec'd 1 unit PRCB's, receiving iron supplementation parenterally. Heparin d/c'd. GI evaluation with EGD, colonoscopy. No source found. <DAVONTE Scott - Last Filed: 01/29/21 16:35> Additional Plan attending addendum: I agree with the above documentation and plan of care as outlined. Continue current medical therapy. <Yony Rodas MD - Last Filed: 01/29/21 17:54> Subjective Date/time seen: 01/29/21 16:24 <DAVONTE Scott - Last Filed: 01/29/21 16:35> Interval history: This is 45-year-old Canadian-speaking with past history of type 2 diabetes, right leg amputation who presents to the hospital with 1 day of severe diarrhea. He also complained of some shortness of breath and central chest pain. We are following him for acute systolic heart failure, volume overload, cardiomyopathy EF 40-45% probably ischemic, and a NSTEMI , with a peak troponin of 3.2. Also found have (acute?) renal failure and an iron deficiency anemia. 01/23/2021: Feels about the same. No chest pain at this point. No shortness of breath. Right leg is wrapped. Change metoprolol to carvedilol, avoiding DEMARCUS-inhibitor etc. because of chronic kidney disease. Added statin. Needs an ischemia evaluation, preferably a cardiac catheterization, prior to discharge. 01/24/2021: Says he is doing good, no pain or shortness of breath. Was up in a chair earlier. Urinating a lot. Remains on heparin drip. Getting Bumex 2 mg q.8 hours., With an excellent diuresis yesterday, 2000 cc and and [address] Conti suspects some of the edema is due to nephrotic syndrome. Date of service 01/25/2021: Still diuresing well, no change in renal function. Heparin drip was discontinued when his hematocrit dropped to 23 and he is getting a unit of pack cells. Says he is feeling good, no pain or shortness of breath. Diuresing, 1400 in, 2200 out yesterday. Date of service 01/26/2021: Patient feeling well today. He underwent Lexiscan nuclear stress test earlier today. He denies shortness of breath but does state that he occasionally feels chest pain. He states that last night he awoke from sleep because of chest pain. Will discuss results of Lexiscan stress test with patient when they are available. Renal function stable. Date of service 01/27/2021: Says he is feeling well today. No complaints. He is having EGD and colonoscopy today per GI to identify a possible source of his GI bleeding. Talked to him about the results of his lexiscan test with assistance of legal department manager. Answered all questions regarding stress test results and treatments. Patient verbalized undersanding. Date of service 01/28/2021: Patient is feeling about the same today. Nearly completely he has some soreness in his throat. No chest pain, no shortness of breath. Date of service 01/29/2021: Doing well. He says he has no chest pain, SOB, no PND. No complaints. He had a renal biopsy performed today.
[2021-01-29 20:41] LABS: Glucose Point of Care 324 mg/dl (65-105)
[2021-01-30] VITALS (7 sets, daily range): BP systolic 132–149; BP diastolic 67–75; PULSE 57–97; RESP 16–18; TEMP 36.1–36.4; O2SAT 94–97
[2021-01-30] MEDS: SALINE LOCK FLUSH 10 ML IV PUSH ×3 (04:41→23:24)
[2021-01-30 05:44] LABS: Potassium 4.1 mmol/L (3.4-5.0)
[2021-01-30 05:47] LABS: Albumin Level 2.6 g/dL (3.5-5.1); Anion Gap 6 mmol/L (8-16); Blood Urea Nitrogen 60 mg/dL (9-20); Calcium 8.1 mg/dL (8.4-10.2); Carbon Dioxide 30 mmol/L (22-30); Chloride 102 mmol/L (98-107); Estimated CRCL calculation 16 ml/min; Estimated Glomerular Filt Rate 10; Glucose 222 mg/dL (75-110); Phosphorus 5.8 mg/dL (2.5-4.5); Sodium 138 mmol/L (137-145)
[2021-01-30 07:49] LABS: Glucose Point of Care 190 mg/dl (65-105)
[2021-01-30] MEDS: carvediloL 3.125 MG TABLET PO ×2 (08:28→23:19)
[2021-01-30] MEDS: ATORVASTATIN 20 MG TABLET PO (08:28)
[2021-01-30] MEDS: EPOETIN ALFA-EPBX 10,000 UNITS/ML VIAL 10000 UNITS SUB-Q (08:29)
[2021-01-30] MEDS: SILVERGEL (ELTA) 45 ML 1 APPLIC TOPICAL (08:29)
[2021-01-30] MEDS: PANTOPRAZOLE 40 MG TABLET PO (08:29)
[2021-01-30 11:12] LABS: Glucose Point of Care 216 mg/dl (65-105)
[2021-01-30] MEDS: INSULIN ASPART (*BKC) 100 UNITS/ML SUB-Q (12:08)
--- NOTE | 2021-01-30 13:26 | PC.NURSE ---
On 01/30/21, the student, [Amarilis Acosta ], provided care and completed [facility] documentation on this patient. I have reviewed the student's documentation and agree with the findings.
[2021-01-30 17:08] LABS: Glucose Point of Care 163 mg/dl (65-105)
--- NOTE | 2021-01-30 21:59 | P.PNNP_ITS ---
Progress Note: A&P Assessment and Plan (1) Abnormal results of kidney function studies: Code(s): R94.4 - Abnormal results of kidney function studies Status: Acute Assessment and Plan: * acute versus acute on chronic versus chronic??? * no reported history per patient * creatinine up a bit today (diuretics/diuresis finally catching up with him?) * multiple risk factors for CKD - diabetes, hypertension, vascular disease and now CAD * evaluation to date: - normal renal ultrasound - urine electrolytes non-prerenal - nephrotic range proteinuria (almost 9 grams!!) - negative urine eosinophils - complements normal - positive ROE and serum immunofixation with monoclonal band IgG kappa is suspected * biopsy done yesterday. * I got a call from pathology today. Preliminary: classic diabetic nephropathy with interstitial fibrosis and glomerular scarring. IgA staining. unclear if this is IgA nephropathy or just a variation of the diabetic kidney. also could be suggestive of infection. ATN so some reversible aspect of this. will get blood cultures. already on antibiotics. (2) Shortness of breath: Code(s): R06.02 - Shortness of breath Status: Acute Assessment and Plan: * clinically better * presumably due to volume overload (3) Anasarca: Code(s): R60.1 - Generalized edema Status: Acute Assessment and Plan: * Cardiology following * suspect nephrotic range proteinuria (and likely nephrotic syndrome) playing a role * continue diuresis * Echo results noted -- EF 40 - 45% * off bumex for now * check cxr tomorrow (4) Anemia: Code(s): D64.9 - Anemia, unspecified Status: Inactive Assessment and Plan: * partly related to #1 * iron deficiency noted as well by anemia studies * however, also guaiac positive -- GI consulted * empirically on Epogen while hospitalized * on IV venofer * PRBC transfusion per protocol (5) Hypertension: Code(s): I10 - Essential (primary) hypertension Status: Inactive Assessment and Plan: * running a bit high despite diuresis * medication adjustments noted by Cardiology * follow trend of hemodynamics (6) Metabolic acidosis: Code(s): E87.2 - Acidosis Status: Acute Assessment and Plan: * probably due to previous diarrhea, 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 Subjective Date/time seen: 01/30/21 21:59 Interval history: patient is comfortable in bed. feels okay. Exam Narrative: Exam Narrative: General:WD/WN male in NAD Heart: normal S1 and S2; no rub Lungs: decreased at bases Abdomen: soft, nontender, nondistended, positive bowel sounds Extremities: no cyanosis or clubbing; 1+ edema Skin: no rash Objective Data Vital Signs Vital Signs: Vital Signs - 24 hr 01/30/21 04:40 01/30/21 08:00 01/30/21 08:28 Temperature 36.1 C L 36.1 C L Pulse Rate 64 97 57 L Respiratory Rate 16 16 Blood Pressure 132/75 142/70 H
--- NOTE | 2021-01-30 21:59 | PM.PNNEP ---
Progress Note: A&P Assessment and Plan (1) Abnormal results of kidney function studies: Code(s): R94.4 - Abnormal results of kidney function studies Status: Acute Assessment and Plan: acute versus acute on chronic versus chronic??? no reported history per patient creatinine up a bit today (diuretics/diuresis finally catching up with him?) multiple risk factors for CKD - diabetes, hypertension, vascular disease and now CAD evaluation to date: - normal renal ultrasound - urine electrolytes non-prerenal - nephrotic range proteinuria (almost 9 grams!!) - negative urine eosinophils - complements normal - positive ROE and serum immunofixation with monoclonal band IgG kappa is suspected biopsy done yesterday. I got a call from pathology today. Preliminary: classic diabetic nephropathy with interstitial fibrosis and glomerular scarring. IgA staining. unclear if this is IgA nephropathy or just a variation of the diabetic kidney. also could be suggestive of infection. ATN so some reversible aspect of this. will get blood cultures. already on antibiotics. (2) Shortness of breath: Code(s): R06.02 - Shortness of breath Status: Acute Assessment and Plan: clinically better presumably due to volume overload (3) Anasarca: Code(s): R60.1 - Generalized edema Status: Acute Assessment and Plan: Cardiology following suspect nephrotic range proteinuria (and likely nephrotic syndrome) playing a role continue diuresis Echo results noted -- EF 40 - 45% off bumex for now check cxr tomorrow (4) Anemia: Code(s): D64.9 - Anemia, unspecified Status: Inactive Assessment and Plan: partly related to #1 iron deficiency noted as well by anemia studies however, also guaiac positive -- GI consulted empirically on Epogen while hospitalized on IV venofer PRBC transfusion per protocol (5) Hypertension: Code(s): I10 - Essential (primary) hypertension Status: Inactive Assessment and Plan: running a bit high despite diuresis medication adjustments noted by Cardiology follow trend of hemodynamics (6) Metabolic acidosis: Code(s): E87.2 - Acidosis Status: Acute Assessment and Plan: probably due to previous diarrhea, 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 Subjective Date/time seen: 01/30/21 21:59 Interval history: patient is comfortable in bed. feels okay. Exam Narrative: Exam Narrative: General:WD/WN male in NAD Heart: normal S1 and S2; no rub Lungs: decreased at bases Abdomen: soft, nontender, nondistended, positive bowel sounds Extremities: no cyanosis or clubbing; 1+ edema Skin: no rash Objective Data Vital Signs Vital Signs: Vital Signs - 24 hr 01/30/21 04:40 01/30/21 08:00 01/30/21 08:28 Temperature 36.1 C L 36.1 C L Pulse Rate 64 97 57 L Respiratory Rate 16 16 Blood Pressure 132/75 142/70 H Pulse Oximetry 94 97 01/30/21 14:00 01/30/21 20:00 01/30/21 21:02 Temperature 36.1 C L 36.4 C Pulse Rate 70 70 79 Respiratory Rate 16 16 18 Blood Pressure 149/75 H 143/67 H Pulse Oximetry 95 95 97 Intake/Output Intake/Output: Intake & Output 01/27/21 01/28/21 01/29/21 01/30/21 23:59 23:59 23:59 23:59 Intake Total 3510 9641 003 7951 Output Total 1600 750 650 900 Balance 1910 660 260 140 Meds/Results Medications: Active Medications Generic Name Dose Route Start Last Admin Trade Name Freq PRN Reason Stop Dose Admin Acetaminophen 650 mg 01/19/21 23:43 06/0
[2021-01-30 22:47] LABS: ANCA Screen Negative (Negative)
[2021-01-30] MEDS: HYDROcodone/acetaminophen (*CRX) 5-325 MG TABLET 1 TAB PO (23:27)
[2021-01-30 23:30] LABS: Glucose Point of Care 157 mg/dl (65-105)
[2021-01-31] VITALS (9 sets, daily range): BP systolic 132–168; BP diastolic 61–98; PULSE 66–96; RESP 14–18; TEMP 35.7–36.1; O2SAT 92–98
[2021-01-31 01:56] LABS: Hematocrit 25.3 % (42.0-52.0); Hemoglobin 7.3 g/dL (14.0-18.0)
[2021-01-31] MEDS: SALINE LOCK FLUSH 10 ML IV PUSH ×3 (05:17→21:41)
[2021-01-31 05:33] LABS: Hematocrit 23.7 % (42.0-52.0); Mean Corpuscular HGB Conc 29.1 g/dl (32-36); Mean Corpuscular Hemoglobin 27.1 pg (26-34); Mean Corpuscular Volume 92.9 fl (80-100); Platelet Count Result 225 k/mm3 (150-375); Red Blood Count 2.55 M/mm3 (4.6-6.20); Red Cell Distribution Width 14.1 % (11.5-14.5); White Blood Count 10.5 K/mm3 (4.5-10.0)
[2021-01-31 05:38] LABS: Hemoglobin 6.9 g/dL (14.0-18.0)
[2021-01-31 05:49] LABS: Albumin Level 2.6 g/dL (3.5-5.1); Anion Gap 7 mmol/L (8-16); Blood Urea Nitrogen 63 mg/dL (9-20); Carbon Dioxide 29 mmol/L (22-30); Chloride 104 mmol/L (98-107); Estimated CRCL calculation 15 ml/min; Estimated Glomerular Filt Rate 9; Glucose 174 mg/dL (75-110); Phosphorus 5.7 mg/dL (2.5-4.5); Sodium 140 mmol/L (137-145)
[2021-01-31 07:55] LABS: Glucose Point of Care 187 mg/dl (65-105)
--- NOTE | 2021-01-31 09:18 | PM.PNCARD ---
Progress Note: A&P Assessment and Plan (1) CHF (congestive heart failure): Code(s): I50.9 - Heart failure, unspecified Status: Acute Assessment and Plan: Acute systolic CHF. Ischemic etiology confimed by lexiscan nuclear stress test. Metoprolol discontinued, changed to carvedilol 3.125 mg p.o. b.i.d. . Will increase his carvedilol to 6.25 mg p.o. b.i.d.. No DEMARCUS or ARB/spironolactone at this point because of renal failure. (2) Anemia, iron deficiency: Code(s): D50.9 - Iron deficiency anemia, unspecified Status: Acute Assessment and Plan: Will need transfused today but will defer to hospitalist (3) CAD (coronary artery disease): Code(s): I25.10 - Atherosclerotic heart disease of [place] coronary artery without angina pectoris Status: Acute Assessment and Plan: on aspirin, beta-malik and statin. if he ends up on dialysis, would recommend a coronary angiogram (4) Ascites: Code(s): R18.8 - Other ascites Status: Acute Assessment and Plan: will order an ultrasound his abdomen today with paracentesis if significant fluid Subjective Date/time seen: 01/31/21 09:18 Interval history: This is 45-year-old Arabic-speaking with past history of type 2 diabetes, right leg amputation who presents to the hospital with 1 day of severe diarrhea. He also complained of some shortness of breath and central chest pain. We are following him for acute systolic heart failure, volume overload, cardiomyopathy EF 40-45% probably ischemic, and a NSTEMI , with a peak troponin of 3.2. Also found have (acute?) renal failure and an iron deficiency anemia. 01/23/2021: Feels about the same. No chest pain at this point. No shortness of breath. Right leg is wrapped. Change metoprolol to carvedilol, avoiding DEMARCUS-inhibitor etc. because of chronic kidney disease. Added statin. Needs an ischemia evaluation, preferably a cardiac catheterization, prior to discharge. 01/24/2021: Says he is doing good, no pain or shortness of breath. Was up in a chair earlier. Urinating a lot. Remains on heparin drip. Getting Bumex 2 mg q.8 hours., With an excellent diuresis yesterday, 2000 cc and and [address] Conti suspects some of the edema is due to nephrotic syndrome. Date of service 01/25/2021: Still diuresing well, no change in renal function. Heparin drip was discontinued when his hematocrit dropped to 23 and he is getting a unit of pack cells. Says he is feeling good, no pain or shortness of breath. Diuresing, 1400 in, 2200 out yesterday. Date of service 01/26/2021: Patient feeling well today. He underwent Lexiscan nuclear stress test earlier today. He denies shortness of breath but does state that he occasionally feels chest pain. He states that last night he awoke from sleep because of chest pain. Will discuss results of Lexiscan stress test with patient when they are available. Renal function stable. Date of service 01/27/2021: Says he is feeling well today. No complaints. He is having EGD and colonoscopy today per GI to identify a possible source of his GI bleeding. Talked to him about the results of his lexiscan test with assistance of relay motorman. Answered all questions regarding stress test results and treatments. Patient verbalized undersanding. Date of service 01/28/2021: Patient is feeling about the same today. Nearly completely he has some soreness in his throat. No chest pain, no shortness of breath. Date of service 01/29/2021: Doing well. He says he has no chest pain, SOB, no PND. No complaints. He had a renal biopsy performed today. Date of service note 01/31/2021: he complains of abdominal pain and bloating. No chest pain or shortness breath. Review of Systems Constitutional: Constitutional: Reports no additional constit
[2021-01-31] MEDS: ATORVASTATIN 20 MG TABLET PO (10:05)
[2021-01-31] MEDS: PANTOPRAZOLE 40 MG TABLET PO (10:05)
[2021-01-31] MEDS: SILVERGEL (ELTA) 45 ML 1 APPLIC TOPICAL (10:06)
--- NOTE | 2021-01-31 12:06 | P.PNNP_ITS ---
Progress Note: A&P Assessment and Plan (1) Abnormal results of kidney function studies: Code(s): R94.4 - Abnormal results of kidney function studies Status: Acute Assessment and Plan: * acute versus acute on chronic versus chronic??? * no reported history per patient * creatinine up a bit today (diuretics/diuresis finally catching up with him?) * multiple risk factors for CKD - diabetes, hypertension, vascular disease and now CAD * evaluation to date: - normal renal ultrasound - urine electrolytes non-prerenal - nephrotic range proteinuria (almost 9 grams!!) - negative urine eosinophils - complements normal - positive ROE and serum immunofixation with monoclonal band IgG kappa is suspected * biopsy: classic diabetic nephropathy with interstitial fibrosis and glomerular scarring. IgA staining. unclear if this is IgA nephropathy or just a variation of the diabetic kidney. also could be suggestive of infection. blood cultures are pending. Echo was negative. He is on antibiotics. ATN so some reversible aspect of this. The ATN is likely due to infection. No sign of allergic interstitial nephritis. The patient has no symptoms of uremia. Volume status looks okay so far. I have will observe renal function. If he improves that would be great. If he develops uremic symptoms or volume overload we can always start dialysis at that point. Because he has ATN on the biopsy a hoping his renal function will improve. Discussed with the patient and family member. (2) Shortness of breath: Code(s): R06.02 - Shortness of breath Status: Acute Assessment and Plan: * clinically better * presumably due to volume overload (3) Anasarca: Code(s): R60.1 - Generalized edema Status: Acute Assessment and Plan: * Cardiology following * He has nephrotic range proteinuria. Edema is better than on admission. * Holding off on diuretics since his creatinine has risen. * check cxr tomorrow (4) Anemia: Code(s): D64.9 - Anemia, unspecified Status: Inactive Assessment and Plan: * partly related to #1 * iron deficiency noted as well by anemia studies * however, also guaiac positive -- GI consulted * empirically on Epogen while hospitalized * on IV venofer * PRBC transfusion per protocol (5) Hypertension: Code(s): I10 - Essential (primary) hypertension Status: Inactive Assessment and Plan: * Blood pressure is doing pretty well. (6) Metabolic acidosis: Code(s): E87.2 - Acidosis Status: Acute Assessment and Plan: * Resolved (7) Diabetes: Code(s): E11.9 - Type 2 diabetes mellitus without complications Status: Chronic Assessment and Plan: * follow accuchecks * on SSI Subjective Date/time seen: 01/31/21 12:06 Interval history: I was able to talk with the patient through an dressing machine operator family member. patient is comfortable today. he denies any belly pain or nausea. He is eating well. Exam Narrative: Exam Narrative: General:WD/WN male in NAD Heart: normal S1 and S2; no rub Lungs: decreased at bases Abdomen: soft, nontender, nondistended, positive bowel sounds Extremities: no cyanosis or clubbing; 1+ edema Skin: no rash Or subcu nodules Objective Data Vital Signs Vital Signs:
--- NOTE | 2021-01-31 12:06 | PM.PNNEP ---
Progress Note: A&P Assessment and Plan (1) Abnormal results of kidney function studies: Code(s): R94.4 - Abnormal results of kidney function studies Status: Acute Assessment and Plan: acute versus acute on chronic versus chronic??? no reported history per patient creatinine up a bit today (diuretics/diuresis finally catching up with him?) multiple risk factors for CKD - diabetes, hypertension, vascular disease and now CAD evaluation to date: - normal renal ultrasound - urine electrolytes non-prerenal - nephrotic range proteinuria (almost 9 grams!!) - negative urine eosinophils - complements normal - positive ROE and serum immunofixation with monoclonal band IgG kappa is suspected biopsy: classic diabetic nephropathy with interstitial fibrosis and glomerular scarring. IgA staining. unclear if this is IgA nephropathy or just a variation of the diabetic kidney. also could be suggestive of infection. blood cultures are pending. Echo was negative. He is on antibiotics. ATN so some reversible aspect of this. The ATN is likely due to infection. No sign of allergic interstitial nephritis. The patient has no symptoms of uremia. Volume status looks okay so far. I have will observe renal function. If he improves that would be great. If he develops uremic symptoms or volume overload we can always start dialysis at that point. Because he has ATN on the biopsy a hoping his renal function will improve. Discussed with the patient and family member. (2) Shortness of breath: Code(s): R06.02 - Shortness of breath Status: Acute Assessment and Plan: clinically better presumably due to volume overload (3) Anasarca: Code(s): R60.1 - Generalized edema Status: Acute Assessment and Plan: Cardiology following He has nephrotic range proteinuria. Edema is better than on admission. Holding off on diuretics since his creatinine has risen. check cxr tomorrow (4) Anemia: Code(s): D64.9 - Anemia, unspecified Status: Inactive Assessment and Plan: partly related to #1 iron deficiency noted as well by anemia studies however, also guaiac positive -- GI consulted empirically on Epogen while hospitalized on IV venofer PRBC transfusion per protocol (5) Hypertension: Code(s): I10 - Essential (primary) hypertension Status: Inactive Assessment and Plan: Blood pressure is doing pretty well. (6) Metabolic acidosis: Code(s): E87.2 - Acidosis Status: Acute Assessment and Plan: Resolved (7) Diabetes: Code(s): E11.9 - Type 2 diabetes mellitus without complications Status: Chronic Assessment and Plan: follow accuchecks on SSI Subjective Date/time seen: 01/31/21 12:06 Interval history: I was able to talk with the patient through an dial buffer family member. patient is comfortable today. he denies any belly pain or nausea. He is eating well. Exam Narrative: Exam Narrative: General:WD/WN male in NAD Heart: normal S1 and S2; no rub Lungs: decreased at bases Abdomen: soft, nontender, nondistended, positive bowel sounds Extremities: no cyanosis or clubbing; 1+ edema Skin: no rash Or subcu nodules Objective Data Vital Signs Vital Signs: Vital Signs - 24 hr 01/30/21 14:00 01/30/21 20:00 01/30/21 21:02 Temperature 36.1 C L 36.4 C Pulse Rate 70 70 79 Respiratory Rate 16 16 18 Blood Pressure 149/75 H 143/67 H Pulse Oximetry 95 95 97 01/30/21 23:19 01/31/21 05:42 Temperature 36.1 C L Pulse Rate 78 66 Respiratory Rate 18 Blood Pressure 132/71 Pulse Oximetry 92 Intake/Output Intake/Output: Intake & Output 01/28/21 01/29/21 01/30/21 01/31/21 23:59 23:59 23:59 23:59 Intake Total 5022 315 5015 590 Output Total 750 650 900 275 Ba
[2021-01-31 12:17] LABS: Glucose Point of Care 276 mg/dl (65-105)
[2021-01-31] MEDS: INSULIN ASPART (*BKC) 100 UNITS/ML SUB-Q (12:35)
--- NOTE | 2021-01-31 12:59 | PM.IMPN ---
Progress Note: A&P Additional Plan 45 yo Korean speaking male w DM, HTN, obesity, h/o RLE amputation 2/2 DM, is admitted w c/o diarrhea. He is noted to be in volume overload with elevated troponin and GLENN. nephro and cardiology were consulted. His wounds over LLE and buttocks were viewed by ID and not believed to be infected. Local wound care was recommended. He was placed on Bumex 2 mg IV q.8 hours after one dose of Metolazone 5 mg p.o. given. and heparin gtt. in addition to ASA and BB. Pt has improved since admission, reporting less work of breathing. 01/22/21 pt feeling better diarrhea has resolved cont current care recs from nephro and cardio appreciated c/s wound care for eval cont local wound care per RN (excellent care of pt appreciated) pt with hypoglycemia, not receiving antihyperglycemics will cont to monitor (pm snack ordered) ECHO pending 01/23/2021 Patient with ongoing persistent hypertension since admission metoprolol changed to Coreg per Cardiology recommendations appreciated GLENN improving hold CHF meds until resolved Patient is uninsured and will need some type of diabetic regimen at discharge. (was only on Metformin prior to admission) HgA1c 10.9; states that he can afford [employer] brand insulin @ $25 per vial if necessary c/s PT/ OT encourage OOB to chair (baseline transfers to wheelchair and ambulates w walker) 01/24/2021 Patient feeling a lot better currently stable on room air diuresing very well, down approximately 5 L cont diuretics renal fxn improving BG < 180 ISS ordered but not administered Buttocks wound growing staph aureus and Pseudomonas pt started on zosyn Cardiology, Nephrology, following 01/25/2021 Patient denies any signs of active bleeding however hemoglobin is noted to be less than 7 today despite iron supplementation and EPO prescribed by Nephrology. patient has been on heparin drip for greater than 48 hours. His creatinine remained elevated anticipated medical management for his NSTEMI by Cardiology. Contining aggressive diuresis c/s placed to GI for evaluation of anemia w SFOB+ Dispo discharge home when cleared by GI, Cardiology and Nephrology 01/26/21: hb appropriately krystle with one unit transfusion. cotninue tomonitor. heparin gtt has jatinder stopped now due to worsening sanemia, no overt sign of bleeding. GI consulted for positive FOBT cardiology deferring cath due to anemia and gi bleed. await gi workup lexiscan ordered per cardiology. contiue diureis renal function remains stable. EF notd 40-45%wound cutlrue from buttock gorwingMSSA and pseudomoanas. mariah jackman. 01/27 Patient has 45 year male with diabetes and right [id number] amputation there was a concern about the infection along the stump however patient was seen id and does not suspect patient has infection, patient with acute systolic congestive heart failure due to ischemic cardiomyopathy, patient on Coreg, being gently diuresed his symptoms are stable, patient also has anemia was seen by GI and to further evaluate patient is scheduled EGD and colonoscopy today will follow-up further recommendation to follow. 01/28 patient had EGD yesterday essentially normal ED to moderate amount of food retention and stomach, Also patient had colonoscopy it showed diverticulosis without perforation, and colonic polyps biopsies were collected, patient seen by test rider patient is being gently diuresed, is kidney remains stable, patient is seen by soda column operator and further recommendation to follow, seen by Dr. asif does not recommend antibiotics as patient does not have an infection on his amputated stump, patient will participate in PT OT may discharge the patient home tomorrow 01/31/21 12:59 01/29 today patient schedule to have a kidney biopsy he remains clinically stable, patient creatinine is elevated today most likely secondary as patient has been NPO for kidney biopsy, patient with history ischemic cardiomyopathy patient rem
[2021-01-31] MEDS: SODIUM CHLORIDE 0.9% IV 250 ML 30 ML IV CONT (14:03)
--- NOTE | 2021-01-31 14:28 | PC.NURSE ---
Called Dr. Horn who in turn had me reach out to Dr. Hawkins regarding the large amount of blood clots when attempting to have BM, approx. 2 cups noted, no actual stool could be seen or differentiated. Dr. Hawkins stated probably from polyps removed and to continue to monitor and may need to call Dr. Marrero on Tuesday.
--- NOTE | 2021-01-31 14:45 | PCPTNOTE ---
RN held PT for pt today due to pt's INR very low and currently receiving blood. will follow up tomorrow.
[2021-01-31 17:15] LABS: Glucose Point of Care 218 mg/dl (65-105)
[2021-01-31 18:07] LABS: Hematocrit 25.5 % (42.0-52.0); Hemoglobin 7.6 g/dL (14.0-18.0)
--- NOTE | 2021-01-31 18:51 | PC.NURSE ---
Late entry: 1739, patient has had 3 more large bloody, congealed stools and Charge Nurse Ingrid called as well as Booster Pump Operator Kevin. Dr. Hawkins called and stated to let Dr. Marrero know. Dr. Marrero called through exchange and returned call immediately and this grant writer and charge nurse spoke with him. Also letting him know he just received 1 unit of PRBC. He ordered q6hour H/H and a nuclear medicine bleeding scan STAT. We are to notify him of H/H below7. H/H resulted at a 7.6.
[2021-01-31 21:58] LABS: Glucose Point of Care 207 mg/dl (65-105)
[2021-02-01] VITALS (29 sets, daily range): BP systolic 91–153; BP diastolic 47–81; PULSE 62–77; RESP 16–26; TEMP 35.8–36.7; O2SAT 91–100
[2021-02-01 00:25] LABS: Hematocrit 22.6 % (42.0-52.0)
[2021-02-01 00:28] LABS: Glucose Point of Care 181 mg/dl (65-105)
[2021-02-01 00:34] LABS: Hemoglobin 6.7 g/dL (14.0-18.0)
[2021-02-01] MEDS: ONDANSETRON INJ 4 MG/2 ML VIAL IV PUSH (00:37)
[2021-02-01] MEDS: SODIUM CHLORIDE 0.9% IV 250 ML 30 ML IV CONT (01:20)
[2021-02-01] MEDS: PANTOPRAZOLE SODIUM IV 40 MG VIAL IV PUSH ×2 (03:05→09:44)
--- NOTE | 2021-02-01 03:19 | PM.EVENT ---
Event Note Event Note Event Note: I was called to patient's room to evaluate after several bowel movements that are johnathon blood clots patient has had numerous episodes he is currently getting transfusion of packed red blood cells another 2 units will be given I have reviewed coags patient with elevated PT slightly will give 2 units of fresh frozen plasma as well and will start patient on Sandostatin drip Protonix 40 mg IV push has been given. Will continue to monitor, serial H&H. GI has been consulted and has been on board.
--- NOTE | 2021-02-01 04:26 | PC.NURSE ---
This patient, Gustavo Chacko, was received from [ [id number]] on 02/01/21 at 3417. Patient/family oriented to unit policies and routines
--- NOTE | 2021-02-01 04:45 | PC.NURSE ---
This patient, Gustavo Chacko, was transferred to ICU 9 on 02/01/21 at 0425. Personal belongings sent with patient. Report given to SILVERIO Huggins at 0423. Appropriate documentation, chart and belongings sent with patient. Called contact listed, Birdie, to update her but no answer. Asked pt bedside ICU if there was anyone else to call and he stated no.
--- NOTE | 2021-02-01 04:50 | PC.NURSE ---
Pt has had several bloody BMs with large amounts of clots and blood throughout shift. Dr Marrero was notified of the pt's critical hemoglobin and continued bleeding and was given orders to transfuse [address] Tamayo was called and made aware of the pt's large bloody clots, change in vitals, pain, condition. She came to the bedside to evaluate pt. She gave verbal orders for a 1 time protonix IVP and a juice box. Pt still actively bleeding with a total of 6 BMs since start of shift, all bloody clots with bright and dark red forms, no stool. Provider placed orders for further prbc, ffp, and transfer orders to ICU.
--- NOTE | 2021-02-01 05:38 | WPDPROCEDUR ---
Procedures Central Line Placement Right Femoral: Central Line Date: 02/01/21 Central Line Time: 05:00 Discussed w/ the patient/family/POA,the placement of a central venous catheter, including its clinical necessity/indication & associated potential risks, benifits and alternatives.: Yes The patient/family/POA understand(s) and acknowledge(s) the need to proceed with central venous catheter insertion as an important element of the patient's clinical management.: Yes Consent: Patient consented Time Out Performed: Yes Patient Position: supine Patient placed on monitor/pulse ox: Yes Provider Prep: mask, sterile gown, sterile gloves, Max. sterile barrier precautions, cap and hand hygiene with conventional soap/water or alcohol based hand rub Central line prep: 2% Chlorhexidine scrub Local anesthesia used: lidocaine 1% Sterile US Technique with sterile gel/sterile probe covers: Yes Central line lumen inserted: triple Length (cm): 20 Post Procedure: sutured in place, good blood return, all ports aspirated, flushed, capped and transparent dressing Patient tolerated procedure: well and no complications Complications: none
[2021-02-01] MEDS: FUROSEMIDE INJ 40 MG/4 ML VIAL 20 MG IV PUSH (06:22)
[2021-02-01] MEDS: HYDROCORTISONE SODIUM SUCCINATE 100 MG/2 ML VIAL IV PUSH (06:22)
[2021-02-01] MEDS: SALINE LOCK FLUSH 10 ML IV PUSH ×2 (06:55→13:14)
[2021-02-01 08:14] LABS: Glucose Point of Care 225 mg/dl (65-105)
[2021-02-01] MEDS: INSULIN ASPART (*BKC) 100 UNITS/ML SUB-Q ×2 (08:31→13:12)
[2021-02-01] MEDS: SILVERGEL (ELTA) 45 ML 1 APPLIC TOPICAL (08:34)
[2021-02-01 08:50] LABS: Basophils Percent Auto 0.3 % (0.2-1.2); Eosinophils Absolute Auto 0.2 K/mm3 (0-0.3); Eosinophils Percent Auto 1.9 % (0-4.4); Immature Granulocyte Absolute 0.08 K/mm3 (0.00-0.031); Immature Granulocyte Percent A 0.7 % (0-0.5); Lymphocytes Absolute Auto 0.84 K/mm3 (0.9-3.2); Lymphocytes Percent Auto 6.9 % (18.3-44.2); Mean Corpuscular HGB Conc 31.6 g/dl (32-36); Mean Corpuscular Hemoglobin 28.5 pg (26-34); Mean Corpuscular Volume 90.2 fl (80-100); Mean Platelet Volume 10.6 fl (7.4-10.4); Monocytes Absolute Auto 0.2 K/mm3 (0.1-0.6); Monocytes Percent Auto 1.5 % (2.6-8.5); Neutrophils Absolute Auto 10.9 K/mm3 (1.3-6.7); Neutrophils Percent Auto 88.7 % (45.5-73.1); Platelet Count Result 151 k/mm3 (150-375); Red Blood Count 2.14 M/mm3 (4.6-6.20); White Blood Count 12.2 K/mm3 (4.5-10.0)
[2021-02-01 08:52] LABS: Hematocrit 19.3 % (42.0-52.0); Hemoglobin 6.1 g/dL (14.0-18.0)
[2021-02-01 09:05] LABS: Albumin Level 1.8 g/dL (3.5-5.1); Anion Gap 4 mmol/L (8-16); Blood Urea Nitrogen 61 mg/dL (9-20); Calcium 7.2 mg/dL (8.4-10.2); Carbon Dioxide 26 mmol/L (22-30); Chloride 109 mmol/L (98-107); Estimated CRCL calculation 17 ml/min; Estimated Glomerular Filt Rate 11; Glucose 230 mg/dL (75-110); Phosphorus 5.2 mg/dL (2.5-4.5); Potassium 4.4 mmol/L (3.4-5.0); Sodium 139 mmol/L (137-145)
--- NOTE | 2021-02-01 09:35 | PCOTNOTE ---
Hold therapy this date. Patient transferred to ICU and femoral line placed. Will need orders to re-evaluate patient for continued skilled therapy services when medically appropriate.
[2021-02-01] MEDS: SODIUM CHLORIDE 0.9% IV 250 ML 30 ML ×2 (09:50→13:12)
--- NOTE | 2021-02-01 10:08 | WPDGIPROGNO ---
Progress Note: A&P Assessment and Plan (1) GI bleed: Code(s): K92.2 - Gastrointestinal hemorrhage, unspecified Status: Acute Assessment and Plan: GI bleeding appears to be after recent polypectomy. Plan is for urgent colonoscopy to be performed today after some preparation to evacuate blood in stool from the colon. Will follow with you in the interim. (2) Below knee amputation: Code(s): S88.119A - Complete traumatic amputation at level between knee and ankle, unspecified lower leg, initial encounter Status: Acute (3) Anemia, iron deficiency: Code(s): D50.9 - Iron deficiency anemia, unspecified Status: Acute (4) CAD (coronary artery disease): Code(s): I25.10 - Atherosclerotic heart disease of [place] coronary artery without angina pectoris Status: Acute Subjective Date/time seen: 02/01/21 10:08 45-year-old speaking male patient I am asked to see in the absence of Dr. Hawkins. patient has admitted the hospital with a non ST elevated SC. Has a history hypertension, right lower extremity amputation, diabetes, renal insufficiency, was found to be anemic with Hemoccult-positive stools underwent colonoscopy an EGD by Dr. Hawkins on 01/27/2021. Patient had several polyps removed from his colon. He did well until yesterday when he began to pass bloody stools. This has persisted since that time. His received proximally 4units of packed cells and 2units of plasma since that time continues to pass blood per rectum. Nuclear medicine bleeding scan performed last night revealed no evidence of active bleeding. However patient's blood pressure is declining is continued to pass blood per rectum. I have been asked to see in Dr. Hawkins is absence. Review of Systems Review of Systems: All systems reviewed & are unremarkable except as noted in HPI and below Exam Narrative: Exam Narrative: Physical exam reveals patient be alert comfortable at bedrest. HEENT exam reveals no icterus. Lungs are clear. Heart without murmur. Abdomen is soft and nontender with no organomegaly. Patient has dark to bright red blood passing per rectum. Objective Data Vital Signs Vital Signs: Vital Signs - 24 hr 01/31/21 14:05 01/31/21 14:20 01/31/21 15:20 Temperature 96.7 F L 96.4 F L 96.6 F L Pulse Rate 80 73 68 Respiratory Rate 16 14 16 Blood Pressure 137/70 149/73 H 168/80 H Pulse Oximetry 95 95 97 01/31/21 16:20 01/31/21 17:20 01/31/21 20:00 Temperature 96.6 F L 96.7 F L Pulse Rate 75 73 Respiratory Rate 16 14 Blood Pressure 151/61 H 167/77 H Pulse Oximetry 98 98 94 01/31/21 21:01 01/31/21 21:08 02/01/21 00:24 Temperature 96.3 F L 96.5 F L Pulse Rate 96 96 73 Respiratory Rate 18 16 Blood Pressure 140/98 H 110/50 L Pulse Oximetry 93 99 02/01/21 01:00 02/01/21 01:19 02/01/21 01:34 Temperature 96.7 F L 96.7 F L Pulse Rate 72 72 73 Respiratory Rate 18 24 H Blood Pressure 130/57 L 122/56 L Pulse Oximetry 94 94 02/01/21 02:35 02/01/21 03:35 02/01/21 04:00 Temperature 97.8 F 96.5 F L 96.5 F L Pulse Rate 72 72 68 Respiratory Rate 16 18 22 H Blood Pressure 116/58 L 102/48 L 93/47 L Pulse Oximetry 95 95 95 02/01/21 04:21 02/01/21 04:38 02/01/21 05:15 Temperature 97.4 F L 97.5 F L 97.6 F Pulse Rate 72 72 70 Respiratory Rate 23 H 20 23 H Blood Pressure 115/65 129/68 147/81 H Pulse Oximetry 93 100 100 02/01/21 05:17 02/01/21 05:39 02/01/21 05:55 Temperature 97.6 F 97.6 F 97.5 F L Pulse Rate 62 62 65 Respiratory Rate 19 20 22 H Blood Pressure 153/69 H 143/75 H 138/71 Pulse Oximetry 100 100 100 02/01/21 06:00 02/01/21 06:33 02/01/21 06:48 Temperature 98.0 F 97.6 F Pulse Rate 65 68 66 Respiratory Rate 22 H 23 H 24 H Blood Pressure 143/65 H 136/62 131/64 Pulse Oximetry 100 100 100 02/01/21 06:52 02/01/21 08:00 02/01/21 09:35 Temperature 97.5 F L 97.5 F L Pulse Rate 68 70 Respiratory Rate 16 20 Blood Pressure 126/73 126/69
--- NOTE | 2021-02-01 10:32 | P.PNNP_ITS ---
Progress Note: A&P Assessment and Plan (1) Abnormal results of kidney function studies: Code(s): R94.4 - Abnormal results of kidney function studies Status: Acute Assessment and Plan: * acute versus acute on chronic versus chronic??? * no reported history per patient * creatinine up a bit today (diuretics/diuresis finally catching up with him?) * multiple risk factors for CKD - diabetes, hypertension, vascular disease and now CAD * evaluation to date: - normal renal ultrasound - urine electrolytes non-prerenal - nephrotic range proteinuria (almost 9 grams!!) - negative urine eosinophils - complements normal - positive ROE and serum immunofixation with monoclonal band IgG kappa is suspected * biopsy: classic diabetic nephropathy with interstitial fibrosis and glomerular scarring. IgA staining. unclear if this is IgA nephropathy or just a variation of the diabetic kidney. also could be suggestive of infection. blood cultures are pending. Echo was negative. He is on antibiotics. ATN so some reversible aspect of this. The ATN is likely due to infection. No sign of allergic interstitial nephritis. The patient has no symptoms of uremia. Volume status looks okay so far. With GI bleeding there is no acute indication for dialysis currently. He may developed electrolyte problem such as hyperkalemia from absorption of potassium in the colon. If so he may need dialysis sooner. (2) Shortness of breath: Code(s): R06.02 - Shortness of breath Status: Acute Assessment and Plan: * No shortness of breath today. (3) Anasarca: Code(s): R60.1 - Generalized edema Status: Acute Assessment and Plan: * Cardiology following * He has nephrotic range proteinuria. Edema is better than on admission. * Holding off on diuretics since his creatinine has risen. (4) Anemia: Code(s): D64.9 - Anemia, unspecified Status: Inactive Assessment and Plan: * Mouth GI bleeding. * iron deficiency noted as well by anemia studies * however, also guaiac positive -- GI consulted * on Epogen while hospitalized * on IV venofer * PRBC transfusions X3. (5) Hypertension: Code(s): I10 - Essential (primary) hypertension Status: Inactive Assessment and Plan: * Blood pressure is doing pretty well. (6) Metabolic acidosis: Code(s): E87.2 - Acidosis Status: Acute Assessment and Plan: * Resolved (7) Diabetes: Code(s): E11.9 - Type 2 diabetes mellitus without complications Status: Chronic Assessment and Plan: * follow accuchecks * on SSI Subjective Date/time seen: 02/01/21 10:32 Interval history: Patient is worse today. He began having lower GI bleeding. He received 3units of blood last night and still his hemoglobin dropped from 6.7-6.1. Exam Narrative: Exam Narrative: General:WD/WN male in NAD Heart: normal S1 and S2; no rub Lungs: decreased at bases Abdomen: soft, nontender, nondistended, positive bowel sounds Extremities: no cyanosis or clubbing; 1+ edema Skin: no rash Objective Data Vital Signs Vital Signs: Vital Signs - 24 hr 01/31/21 14:05 01/31/21 14:20 01/31/21 15:20 Temperature 35.9 C L 35.8 C L 35.9 C L Pulse Ra
--- NOTE | 2021-02-01 10:32 | PM.PNNEP ---
Progress Note: A&P Assessment and Plan (1) Abnormal results of kidney function studies: Code(s): R94.4 - Abnormal results of kidney function studies Status: Acute Assessment and Plan: acute versus acute on chronic versus chronic??? no reported history per patient creatinine up a bit today (diuretics/diuresis finally catching up with him?) multiple risk factors for CKD - diabetes, hypertension, vascular disease and now CAD evaluation to date: - normal renal ultrasound - urine electrolytes non-prerenal - nephrotic range proteinuria (almost 9 grams!!) - negative urine eosinophils - complements normal - positive ROE and serum immunofixation with monoclonal band IgG kappa is suspected biopsy: classic diabetic nephropathy with interstitial fibrosis and glomerular scarring. IgA staining. unclear if this is IgA nephropathy or just a variation of the diabetic kidney. also could be suggestive of infection. blood cultures are pending. Echo was negative. He is on antibiotics. ATN so some reversible aspect of this. The ATN is likely due to infection. No sign of allergic interstitial nephritis. The patient has no symptoms of uremia. Volume status looks okay so far. With GI bleeding there is no acute indication for dialysis currently. He may developed electrolyte problem such as hyperkalemia from absorption of potassium in the colon. If so he may need dialysis sooner. (2) Shortness of breath: Code(s): R06.02 - Shortness of breath Status: Acute Assessment and Plan: No shortness of breath today. (3) Anasarca: Code(s): R60.1 - Generalized edema Status: Acute Assessment and Plan: Cardiology following He has nephrotic range proteinuria. Edema is better than on admission. Holding off on diuretics since his creatinine has risen. (4) Anemia: Code(s): D64.9 - Anemia, unspecified Status: Inactive Assessment and Plan: Mouth GI bleeding. iron deficiency noted as well by anemia studies however, also guaiac positive -- GI consulted on Epogen while hospitalized on IV venofer PRBC transfusions X3. (5) Hypertension: Code(s): I10 - Essential (primary) hypertension Status: Inactive Assessment and Plan: Blood pressure is doing pretty well. (6) Metabolic acidosis: Code(s): E87.2 - Acidosis Status: Acute Assessment and Plan: Resolved (7) Diabetes: Code(s): E11.9 - Type 2 diabetes mellitus without complications Status: Chronic Assessment and Plan: follow accuchecks on SSI Subjective Date/time seen: 02/01/21 10:32 Interval history: Patient is worse today. He began having lower GI bleeding. He received 3units of blood last night and still his hemoglobin dropped from 6.7-6.1. Exam Narrative: Exam Narrative: General:WD/WN male in NAD Heart: normal S1 and S2; no rub Lungs: decreased at bases Abdomen: soft, nontender, nondistended, positive bowel sounds Extremities: no cyanosis or clubbing; 1+ edema Skin: no rash Objective Data Vital Signs Vital Signs: Vital Signs - 24 hr 01/31/21 14:05 01/31/21 14:20 01/31/21 15:20 Temperature 35.9 C L 35.8 C L 35.9 C L Pulse Rate 80 73 68 Respiratory Rate 16 14 16 Blood Pressure 137/70 149/73 H 168/80 H Pulse Oximetry 95 95 97 01/31/21 16:20 01/31/21 17:20 01/31/21 20:00 Temperature 35.9 C L 35.9 C L Pulse Rate 75 73 Respiratory Rate 16 14 Blood Pressure 151/61 H 167/77 H Pulse Oximetry 98 98 94 01/31/21 21:01 01/31/21 21:08 02/01/21 00:24 Temperature 35.7 C L 35.8 C L Pulse Rate 96 96 73 Respiratory Rate 18 16 Blood Pressure 140/98 H 110/50 L Pulse Oximetry 93 99 02/01/21 01:00 02/01/21 01:19 02/01/21 01:34 Temperature 35.9 C L 35.9 C L Pulse Rate 72 72 73
--- NOTE | 2021-02-01 10:44 | PM.TDS ---
Transfer Discharge Sum: Prov Provider Date of admission: 01/20/21 14:59 Primary care physician: [employer]SE WHEELER PHYSICIAN Admitting clinician: Carole Meza DO Consults: 01/20/21 Consult to Physician Routine Comment: [email or web address] Consulting Provider: Michael Johnson call or contact centre team leader/MD group to consult: NEPHROLOGY Reason for consultation: NEPHROLOGY - ARF Has provider been notified: Yes Wound/ET Consult Routine Reason for Consult:: BUTTOCK WOUND 01/21/21 Consult to Physician Routine Comment: Consulting Provider: Tomi Palomo Reason for consultation: NSTEMI Has provider been notified: Yes 01/22/21 Wound/ET Consult Routine Reason for Consult:: breakdown over buttock, posterior thighs, LLE ulcerations 01/25/21 Consult to Physician Routine Comment: Consulting Provider: Freddie Delgado Reason for consultation: anemia w SFOB + Has provider been notified: Yes 02/01/21 Consult to Physician Routine Comment: Consulting Provider: call or contact centre team leader/MD group to consult: General Surgery Reason for consultation: Post Polypectomy Has provider been notified: No DS: Admitting Diagnosis Admitting Diagnosis Admitting Diagnosis: Chief Complaint: Nausea vomiting and diarrhea Narrative: 45-year-old male who presents ER with diarrhea. Began today and has had 10 episodes of large-volume diarrhea. Reports it is dark in color. No fevers or chills or sweats. Poor historian Gambian speaking. Pt diarrhea has caused irritation around his buttocks. And skin break down. Pt leg looks like it is weeping, pt has a history of DM. Pt has history of amputation awaiting prosthesis from [place]. Pt lives local. DS: Discharge Diagnosis Discharge Diagnosis (1) NSTEMI (non-ST elevated myocardial infarction): Code(s): I21.4 - Non-ST elevation (NSTEMI) myocardial infarction Status: Inactive Assessment and Plan: cardiology follwoign. udneroing lexiscan today for further evlauation. defered cardiac cath due to anemia needing transfusion. (2) Shortness of breath: Code(s): R06.02 - Shortness of breath Status: Acute Assessment and Plan: related to cardiomyopathy. acute systolic CHF, liekly ischemic. on diuresis with improvement (3) Metabolic acidosis: Code(s): E87.2 - Acidosis Status: Acute (4) Abnormal results of kidney function studies: Code(s): R94.4 - Abnormal results of kidney function studies Status: Acute Assessment and Plan: avoid nephrotoxi. likley from chf. no acei or arb due to renal dysfunction. (5) Buttock wound: Code(s): S31.809A - Unspecified open wound of unspecified buttock, initial encounter Status: Acute Assessment and Plan: wound team laureen. (6) Below knee amputation: Code(s): S88.119A - Complete traumatic amputation at level between knee and ankle, unspecified lower leg, initial encounter Status: Acute Assessment and Plan: SEcondary to poor DM control (7) GLENN (acute kidney injury): Code(s): N17.9 - Acute kidney failure, unspecified Status: Acute Assessment and Plan: CREAT is 3 hydrate wit fluids consult nephrology watch UO renal function remains stable. nephrology following. (8) Diabetes: Code(s): E11.9 - Type 2 diabetes mellitus without complications Status: Chronic Assessment and Plan: ACCUCHECKS, SSI (9) Gastroenteritis: Code(s): K52.9 - Noninfective gastroenteritis and colitis, unspecified Status: Acute Assessment and Plan: ?Moderate pleural effusions right greater than left, adjacent atelectasis. Anasarca. consult GI order liver and hep panel ?Nausea and vomiting secondary to infection (10) Acute hyperkalemia: Code(s): E87.5 - Hyperkalemia Status: Acute Assessment and Plan: POtassium level is high give kayelexate and watch potassium levels (11) Anemia:
--- NOTE | 2021-02-01 10:55 | WPDCNINT ---
Assessment and Plan Assessment and plan (1) Lower GI bleed: Code(s): K92.2 - Gastrointestinal hemorrhage, unspecified Status: Acute Assessment and Plan: I strongly suspect patient has post polypectomy bleed which is active and ongoing. Patient received 3 units of packed red cells overnight and 2 units of FFP. Hemoglobin is 6.1 after transfusion. Patient is going to get 2 more units now will put 2 units on hold I ordered 30 mcg of DDAVP patient does have uremia although it is not severe Patient is on IV PPI DC octreotide as EGD was normal and he does not have varices Serial hemoglobin monitoring This morning when I saw the patient, I called Dr. Hawkins who did the EGD and colonoscopy procedure on 01/27 and he also felt the patient may be having post polypectomy bleed. He told me that he was out of town and he does not believe there was any GI coverage today at [facility]. As patient was actively bleeding and patient likely needed a colonoscopy urgently or if he deteriorates may be an angiogram, I called [facility] for transferring patient for urgent colonoscopy or/and possible angiogram. I discussed case with GI physician at [facility] who told me that they will evaluate patient for colonoscopy today and obviously if patient deteriorates and becomes unstable then proceed with angiogram/embolization. I also spoke to Senior Sales Manager and admitting Hospitalist. Later Dr. Marrero came to see the patient. He also agreed with transfer and said that he would defer colonoscopy to [facility] since pt will be transferring. We discussed best course of action to prepare for colonoscopy at [facility] in case patient is not accepted or no bed is available. He recommended the patient be given GoLYTELY to prep before he will call anesthesia for colonoscopy. Patient was then accepted at [facility] and got bed assigned. I will transfer patient. He is getting 2 units packed red cells but currently is hemodynamically stable and is not on any vasopressors. I will send a another unit of PRBC, bag of Levophed and IV fluids along with him in case he develops hypotension. (2) CAD (coronary artery disease): Code(s): I25.10 - Atherosclerotic heart disease of [place] coronary artery without angina pectoris Status: Acute Assessment and Plan: Hold aspirin beta-malik and statin as patient is NPO and active GI bleed (3) Anemia, iron deficiency: Code(s): D50.9 - Iron deficiency anemia, unspecified Status: Acute Assessment and Plan: See above (4) Diabetes: Code(s): E11.9 - Type 2 diabetes mellitus without complications Status: Chronic Assessment and Plan: Sliding scale insulin (5) GLENN (acute kidney injury): Code(s): N17.9 - Acute kidney failure, unspecified Status: Acute Assessment and Plan: Patient presented with GLENN and the creatinine has been getting worse BUN is in 60s Discussed with nephrology who is following May need dialysis if continued to worsen Electrolytes acceptable at this point (6) Leg ulcer, left: Code(s): L97.929 - Non-pressure chronic ulcer of unspecified part of left lower leg with unspecified severity Status: Acute Assessment and Plan: Patient is on empiric Zosyn Additional Plan DVT prophylaxis -patient will not be able to wear SCDs as he has ulcers on his left leg under dressing and right BKA Stress ulcer prophylaxis -on IV PPI Nutrition -NPO for procedure Code Status - Full Code Total Critical Care Time - 50 minutes Due to a high probability of clinically significant, life threatening deterioration, the patient required my highest level of preparedness to intervene emergently and I personally spent this critical care time directly and personally managing the patient. This critical care time included obtaining a history; examining the patient; pulse oximetry; ordering and review of studies; arranging urgent treatment with
--- NOTE | 2021-02-01 11:52 | PM.PNCARD ---
Progress Note: A&P Assessment and Plan (1) CHF (congestive heart failure): Code(s): I50.9 - Heart failure, unspecified Status: Acute Assessment and Plan: Acute systolic CHF. Ischemic etiology confimed by lexiscan nuclear stress test. No changes to his cardiac regimen at this point and in fact may need to hold carvedilol because of hypotension from bleeding No DEMARCUS or ARB/spironolactone at this point because of renal failure. (2) Anemia, iron deficiency: Code(s): D50.9 - Iron deficiency anemia, unspecified Status: Acute Assessment and Plan: Will need transfused today but will defer to hospitalist (3) CAD (coronary artery disease): Code(s): I25.10 - Atherosclerotic heart disease of [place] coronary artery without angina pectoris Status: Acute Assessment and Plan: on aspirin, beta-malik and statin. if he ends up on dialysis, would recommend a coronary angiogram (4) Lower GI bleed: Code(s): K92.2 - Gastrointestinal hemorrhage, unspecified Status: Acute Assessment and Plan: Status post transfusion, scope and in the process of being transferred. Subjective Date/time seen: 02/01/21 11:52 Interval history: Interval history: This is 45-year-old Turkmen-speaking with past history of type 2 diabetes, right leg amputation who presents to the hospital with 1 day of severe diarrhea. He also complained of some shortness of breath and central chest pain. We are following him for acute systolic heart failure, volume overload, cardiomyopathy EF 40-45% probably ischemic, and a NSTEMI , with a peak troponin of 3.2. Also found have (acute?) renal failure and an iron deficiency anemia. 01/23/2021: Feels about the same. No chest pain at this point. No shortness of breath. Right leg is wrapped. Change metoprolol to carvedilol, avoiding DEMARCUS-inhibitor etc. because of chronic kidney disease. Added statin. Needs an ischemia evaluation, preferably a cardiac catheterization, prior to discharge. 01/24/2021: Says he is doing good, no pain or shortness of breath. Was up in a chair earlier. Urinating a lot. Remains on heparin drip. Getting Bumex 2 mg q.8 hours., With an excellent diuresis yesterday, 2000 cc and and [address] Conti suspects some of the edema is due to nephrotic syndrome. Date of service 01/25/2021: Still diuresing well, no change in renal function. Heparin drip was discontinued when his hematocrit dropped to 23 and he is getting a unit of pack cells. Says he is feeling good, no pain or shortness of breath. Diuresing, 1400 in, 2200 out yesterday. Date of service 01/26/2021: Patient feeling well today. He underwent Lexiscan nuclear stress test earlier today. He denies shortness of breath but does state that he occasionally feels chest pain. He states that last night he awoke from sleep because of chest pain. Will discuss results of Lexiscan stress test with patient when they are available. Renal function stable. Date of service 01/27/2021: Says he is feeling well today. No complaints. He is having EGD and colonoscopy today per GI to identify a possible source of his GI bleeding. Talked to him about the results of his lexiscan test with assistance of manager of project management. Answered all questions regarding stress test results and treatments. Patient verbalized undersanding. Date of service 01/28/2021: Patient is feeling about the same today. Nearly completely he has some soreness in his throat. No chest pain, no shortness of breath. Date of service 01/29/2021: Doing well. He says he has no chest pain, SOB, no PND. No complaints. He had a renal biopsy performed today. Date of service note 01/31/2021: he complains of abdominal pain and bloating. No chest pain or shortness breath. Date of service 02/01/2021: Patient started having significant GI bleed overnight. Currently process being transferred to [facility].
[2021-02-01 13:10] LABS: Glucose Point of Care 208 mg/dl (65-105)
[2021-02-01] MEDS: CENTRAL LINE FLUSH 10 ML IV PUSH (13:14)
[2021-02-01 14:19] LABS: Hematocrit 31.6 % (42.0-52.0); Mean Corpuscular Hemoglobin 28.9 pg (26-34); Mean Corpuscular Volume 90.5 fl (80-100); Mean Platelet Volume 10.7 fl (7.4-10.4); Platelet Count Result 139 k/mm3 (150-375); Red Blood Count 3.49 M/mm3 (4.6-6.20); Red Cell Distribution Width 13.9 % (11.5-14.5)
[2021-02-01 14:21] LABS: Hemoglobin 10.1 g/dL (14.0-18.0)
[2021-02-02 22:11] LABS: Albumin 43 %
[2021-02-04 18:46] LABS: Creatinine, Random Urine 84 mg/dL (20-320); Total Protein/Creatinine Ratio 14798 mg/g creat (22-128)
== END 2021-02-01 14:55 | disposition short-term general hospital (02) | DRG 469 ==
LOC: ANHED 21:55 → ANH3MEDSUR 01-20 00:13 → ANH3MED 01-23 23:06 → ANHICU 02-01 11:21 → ANH3MED 02-02 16:23 → ANH3MEDSUR 02-02 16:23 → ANHICU 02-02 16:23 → ANHIMU 02-02 16:23
PROVIDERS: Emergency Medicine; Family Medicine; Hospitalist; Internal Medicine; Internal Medicine Cardiovascular Disease; Internal Medicine Gastroenterology; Internal Medicine Nephrology; Nurse Practitioner; Admitting Provider Internal Medicine; Emergency Provider Emergency Medicine; Visit Provider Internal Medicine
PROC: 0DJ08ZZ Inspection of Upper Intestinal Tract, Via Natural or Artificial Opening Endoscopic (ICD-10-PCS; CPT 43235; principal; 2021-01-27 11:45)
DX: N17.0 Acute kidney failure with tubular necrosis (principal); K52.9 Noninfective gastroenteritis and colitis, unspecified; E11.51 Type 2 diabetes mellitus with diabetic peripheral angiopathy without gangrene; B95.61 Methicillin susceptible Staphylococcus aureus infection as the cause of diseases classified elsewhere; B96.5 Pseudomonas (aeruginosa) (mallei) (pseudomallei) as the cause of diseases classified elsewhere; L97.829 Non-pressure chronic ulcer of other part of left lower leg with unspecified severity; E87.5 Hyperkalemia; I21.4 Non-ST elevation (NSTEMI) myocardial infarction; E11.649 Type 2 diabetes mellitus with hypoglycemia without coma; K63.5 Polyp of colon; K57.30 Diverticulosis of large intestine without perforation or abscess without bleeding; I13.0 Hypertensive heart and chronic kidney disease with heart failure and stage 1 through stage 4 chronic kidney disease, or unspecified chronic kidney disease; I50.21 Acute systolic (congestive) heart failure; N18.9 Chronic kidney disease, unspecified; E11.22 Type 2 diabetes mellitus with diabetic chronic kidney disease; E87.2 Acidosis; L98.419 Non-pressure chronic ulcer of buttock with unspecified severity; K31.84 Gastroparesis; E11.21 Type 2 diabetes mellitus with diabetic nephropathy; D50.9 Iron deficiency anemia, unspecified; I25.5 Ischemic cardiomyopathy; R19.5 Other fecal abnormalities; K91.840 Postprocedural hemorrhage of a digestive system organ or structure following a digestive system procedure; R18.8 Other ascites; D63.1 Anemia in chronic kidney disease; S31.809A Unspecified open wound of unspecified buttock, initial encounter; I25.10 Atherosclerotic heart disease of native coronary artery without angina pectoris; Z89.412 Acquired absence of left great toe; Z89.511 Acquired absence of right leg below knee
CPT/HCPCS: 36415; 36430; 36569; 50200; 71045; 71046; 74176; 76705; 76775; 76942; 78278; 78452; 80048; 80053; 80061; 80069; 81001; 82274; 82550; 82570; 82607; 82728; 82746; 82948; 83036; 83540; 83550; 83605; 83690; 83735; 83880; 83883; 83970; 84156; 84166; 84300; 84484; 85014; 85018; 85025; 85027; 85046; 85610; 85652; 85730; 85999; 86021; 86038; 86039; 86160; 86162; 86225; 86334; 86335; 86850; 86900; 86901; 86920; 86923; 87040; 87070; 87077; 87086; 87088; 87147; 87186; 87205; 88300; 88305; 88329; 93005; 93017; 93306; 96360; 96361; 97110; 97161; 97166; 97530; 99285; A9270; A9502; A9560; C1751; C9113; G0378; G0379; J0330; J0692; J1644; J1720; J1756; J1815; J1940; J2270; J2354; J2405; J2543; J2597; J2704; J2785; J3370; J7030; J7050; J7120; P9016; P9017; Q5106

== ENCOUNTER 2021-02-13 12:01 | Inpatient (IN) | payer MEDICAID, SELFPAY ==
[2021-02-13] VITALS (30 sets, daily range): BP systolic 111–165; BP diastolic 70–90; PULSE 62–115; RESP 21–54; TEMP 35.5–35.6; O2SAT 84–100; BMI 33.3
--- NOTE | ~2021-02-13 | XR_ITS ---
XR chest 1V portable 02/15/2021 06:11 Indication: Pneumonia. Heart failure. Procedure: AP portable chest Comparison: Comparison to multiple prior studies sequentially, with oldest reviewed study dated 12/2020. Findings: Stable diffuse bilateral airspace disease. Heart size normal. No significant effusion or pn eumothorax. No acute osseous abnormality. Impression: 1: Stable diffuse bilateral airspace disease which may represent edema and/or pneumonia. Reviewed, dictated and finalized at location A. Impression: 1: Stable diffuse bilateral airspace disease which may represent edema and/or p neumonia.
--- NOTE | ~2021-02-13 | XR_ITS ---
EXAMINATION: XR chest 1V portable DATE: 02/18/2021 05:59 INDICATION: Pneumonia. Heart failure. TECHNIQUE: frontal view of the chest was obtained. COMPARISON: Chest radiograph dated 02/17/2021 FINDINGS: No significant interval change, for differences in technique in extensive patchy airspace opacities t hroughout both lungs. No pneumothorax. Blunting at the right costophrenic angle consistent with small right pleural effusion. The cardiomediastinal silhouette is normal. IMPRESSION: 1. No significant change in patchy bilateral airspace opacities consistent with pneumonia and/or pulm onary edema. 2. Small right pleural effusion. Reviewed, dictated and finalized at location A. IMPRESSION: 1. No significant change in patchy bilateral airspace opacities consistent with pneumonia and/or pulmonary edema. 2. Small right pleural effusion.
--- NOTE | ~2021-02-13 | XR_ITS ---
EXAMINATION: XR chest 1V portable INDICATION: Cough TECHNIQUE: Portable AP chest at 1218 hours COMPARISON: 01/31/2021 FINDINGS: Patchy bilateral opacities are present in all lung zones. The lung volumes are low. Small p leural effusions are suggested. There is no pneumothorax. The cardiomediastinal silhouette is normal for technique. IMPRESSION: 1. Diffuse lung disease, consistent with pneumonia and/or pulmonary edema. 2. Small pleural effusions. Reviewed, dictated and finalized at location A.
--- NOTE | ~2021-02-13 | XR_ITS ---
EXAMINATION: XR chest 1V portable DATE: 02/17/2021 05:45 INDICATION: Pneumonia. Heart failure. TECHNIQUE: frontal view of the chest was obtained. 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 No pneumothorax. Heart size is normal. There is [id number] narro wing of the intrathoracic portion of the trachea which can be seen with obstructive pulmonary disease . IMPRESSION: 1. No significant change in patchy bilateral airspace opacities consistent with pneumonia. 2. Small bilateral pleural effusions. 3. Narrowing of the intrathoracic trachea which can be seen with obstructive pulmonary disease. Reviewed, dictated and finalized at location A. IMPRESSION: 1. No significant change in patchy bilateral airspace opacities consistent with pneumonia. 2. Small bilateral pleural effusions. 3. Narrowing of the intrathoracic trachea which can be seen with obstructive pu lmonary disease.
--- NOTE | ~2021-02-13 | XR_ITS ---
XR chest 1V portable 02/14/2021 07:46 Indication: CHF Procedure: AP portable chest Comparison: Comparison to multiple prior studies sequentially, with oldest reviewed study dated 09/2020. Findings: Progression of diffuse bilateral airspace disease, consistent with edema. Probable right pl eural effusion. No pneumothorax identified. Cardiomegaly. Impression: 1: Progression of diffuse bilateral airspace disease, most likely edema versus pneumonia. Reviewed, dictated and finalized at location A. Impression: 1: Progression of diffuse bilateral airspace disease, most likely edema versus pneumonia.
--- NOTE | ~2021-02-13 | XR_ITS ---
EXAMINATION: XR chest 1V portable DATE: 02/19/2021 05:20 INDICATION: Pneumonia. Heart failure. TECHNIQUE: frontal view of the chest was obtained. COMPARISON: Chest radiograph dated 02/18/2021 FINDINGS: Slight interval decrease in bilateral diffuse groundglass opacity and superimposed scattered more den se patchy airspace opacities throughout both lungs suggesting multifocal pneumonia with improvement i n superimposed pulmonary edema or posterior layering pleural effusions. No pneumothorax. The cardiome diastinal silhouette is normal. IMPRESSION: 1. Slight decrease in diffuse bilateral lung disease consistent with multifocal pneumonia with improv ement in superimposed pulmonary edema and/or small posteriorly layering pleural effusions. Reviewed, dictated and finalized at location A. IMPRESSION: 1. 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
--- NOTE | ~2021-02-13 | XR_ITS ---
EXAMINATION: XR chest 1V portable DATE: 02/16/2021 05:36 INDICATION: Pneumonia. Heart failure. TECHNIQUE: frontal view of the chest was obtained. COMPARISON: Chest radiograph dated 02/15/2021 FINDINGS: No significant interval change in patchy bilateral airspace opacities. Small bilateral pleural effusi ons. No pneumothorax. Heart size is normal. IMPRESSION: 1. No significant change in patchy bilateral airspace opacities consistent with pneumonia. 2. Small bilateral pleural effusions. Reviewed, dictated and finalized at location A.
--- NOTE | 2021-02-13 12:03 | ECG_ITS ---
Measurements Intervals [place] Rate: 110 P: 20 AR: 155 QRS: -10 QRSD: 97 T: 127 QT: 296 QTc: 400 Interpretive Statements SINUS TACHYCARDIA LOW QRS VOLTAGE IN PRECORDIAL LEADS BORDERLINE ST-T WAVE ABNORMALITY- LAT/HIGH LAT LEADS BASELINE ARTIFACT- I, II, III, AVR, AVL, AVF, V3-V6 ABNORMAL ECG Electronically Signed On 02-13-2021 12:21:31 CDT by Reji Dasilva D.O.
--- NOTE | 2021-02-13 12:18 | ED.SOB ---
HPI - SOB/Dyspnea General Chief Complaint: Shortness of Breath/Dyspnea Stated Complaint: CP Time Seen by Provider: 02/13/21 12:01 Source: RN notes reviewed History of Present Illness HPI Narrative: Patient presents to emergency department from home via EMS in acute respiratory distress history is limited secondary to patient's respiratory distress per EMS when they arrived the patient was hypoxic on room air tripoding family states the patient had been short of breath starting today called discussed with patient's daughter Birdie who states that the patient has been home from the hospital for approximately 1 week since last Tuesday states the patient had had a mild cough and had increasing shortness of breath today Related Data Home Medications Medication Instructions Recorded Confirmed glipizide 10 mg PO DAILY 01/19/21 01/20/21 metformin 1,000 mg PO BID 01/19/21 01/20/21 Allergies Allergy/AdvReac Type Severity Reaction Status Date / Time No Known Allergies Allergy Verified 01/19/21 20:35 Review of Systems Review of Systems: Narrative: Gen.: Denies fevers or chills ENT: Denies congestion Respiratory: Reports shortness of breath CV: Reports chest pain GI: Denies abdominal pain nausea, emesis or diarrhea Musculoskeletal: Denies back pain or muscle pain Neuro: Denies headache Skin: Denies rash Except as documented, all other systems reviewed and negative PMFSH Past Medical History Medical History Abnormal results of kidney function studies GLENN (acute kidney injury) Anemia Cardiomyopathy Diabetes Hypertension Metabolic acidosis NSTEMI (non-ST elevated myocardial infarction) Peripheral vascular disease Shortness of breath Surgical History Surgical History Below knee amputation Social History Social History Social History: Lives at home with family. Smoking status: Never smoker Alcohol intake: unknown Substance use: never Substance use type: does not use Gender identity (if verbalized by the patient): Male Spiritual care concerns: No Exam Narrative: Exam Narrative: APPEARANCE: Severe respiratory distress and upright in bed speaking in 1-2 word sentences HEENT: Normocephalic, atraumatic OMM RESPIRATORY: Acute respiratory distress crackles throughout the bilateral lung villarreal CARDIOVASCULAR: Regular rate and rhythm without murmurs rubs or gallops. ABDOMINAL: Soft, nontender, nondistended, no rebound or guarding MUSCULOSKELETAl: Moves all extremities. No clubbing, cyanosis or edema. Right lower extremity amputation left lower extremity has several superficial ulcerative wounds with some surrounding erythema NEURO: Awake and alert. Following commands, speech normal, no focal deficits SKIN:: Warm, dry. Normal Color PSYCHIATRIC: Normal affect/mood, Course Course Emergency Course: Patient placed on BiPAP upon arrival to the emergency department given Lasix as well as Nitropaste with improvement patient did have one episode of dry heaves for she is given Zofran which no further dry heaving after this Reviewed old records the patient been in our hospital had a GI bleed he had been in acute renal failure at that time his creatinine is improved today he had had heart failure at that time as well : Discussed Dr. Ma for ICU presentation work-up agrees with admission at this time. Agrees with plan for testing for Covid started on Zosyn and vancomycin With MARII Martins for Dr. Perkinsresentation work-up agrees with admission at this time Discussed with patient and family results of workup and diagnosis. Discussed need for admission. Patient and family understand and agree to current treatment plan Vital Signs Vital signs: Vital Signs Pulse Rate 111 H 02/13/21 12:09 Respiratory Rate 54 H 02/13/21 12:09 Blood Pressure 148/90 H
[2021-02-13] MEDS: NITROGLYCERIN OINTMENT 1 INCH DOSE 0.5 INCH TRANSDERM (12:20)
[2021-02-13] MEDS: FUROSEMIDE INJ 40 MG/4 ML VIAL IV PUSH (12:20)
--- NOTE | 2021-02-13 12:20 | PC.NURSE ---
pt dry heaving. cpap removed. mouth suctioned. zofran given. upon pt stating he felt better. mask again placed. pt coughing intermittently.
[2021-02-13 12:28] LABS: Alveolar/Arterial O2 Gradient 435.6 mmHg; Base Excess ABG -5.3 mEq/l (+/-2.0); Fractional Inspired Oxygen 100 %; HCO3 ABG 21.4 mEq/l (22.0-26.0); Oxygen Content ABG 16.3 %vol (16.0-22.0); Oxygen Saturation ABG 99.4 % (95.0-100.0); Oxyhemoglobin 98.6 % THb (90.0-100.0); PCO2 ABG 47.1 mmHg (35.0-45.0); PO2 ABG 230.3 mmHg (80.0-100.0); Total Hemoglobin 11.4 g/dL (12.0-18.0)
[2021-02-13] MEDS: ONDANSETRON INJ 4 MG/2 ML VIAL (12:28)
[2021-02-13 12:29] LABS: Basophils Absolute Auto 0.1 K/mm3 (0.0-0.1); Basophils Percent Auto 0.6 % (0.2-1.2); Eosinophils Absolute Auto 0.4 K/mm3 (0-0.3); Eosinophils Percent Auto 3.9 % (0-4.4); Hematocrit 36.1 % (42.0-52.0); Hemoglobin 10.7 g/dL (14.0-18.0); Immature Granulocyte Absolute 0.04 K/mm3 (0.00-0.031); Immature Granulocyte Percent A 0.4 % (0-0.5); Lymphocytes Percent Auto 20.2 % (18.3-44.2); Mean Corpuscular HGB Conc 29.6 g/dl (32-36); Mean Corpuscular Hemoglobin 28.4 pg (26-34); Mean Corpuscular Volume 95.8 fl (80-100); Mean Platelet Volume 11.4 fl (7.4-10.4); Monocytes Absolute Auto 1.2 K/mm3 (0.1-0.6); Monocytes Percent Auto 10.6 % (2.6-8.5); Neutrophils Percent Auto 64.3 % (45.5-73.1); Platelet Count Result 517 k/mm3 (150-375); Red Blood Count 3.77 M/mm3 (4.6-6.20); Red Cell Distribution Width 16.1 % (11.5-14.5); White Blood Count 10.9 K/mm3 (4.5-10.0)
[2021-02-13 12:30] LABS: Device NON-INVASIVE VENT; Modified Allen's Test Unable to perform; Site Drawn RIGHT RADIAL; pH ABG 7.276 (7.350-7.450)
--- NOTE | 2021-02-13 12:30 | PC.NURSE ---
unable to place parra cath due to swollen foreskin and pts anatomy. edp aware. pt able to void via urinal
[2021-02-13 12:31] LABS: Non-Invasive Expiratory Pressure 8 CMH2O; Non-Invasive Inspiratory Pressure 14 CMH2O; Non-Invasive Vent Rate 4 /MIN
[2021-02-13 12:38] LABS: Alanine Aminotransferase 24 U/L (4-50); Albumin Level 3.5 g/dL (3.5-5.1); Alkaline Phosphatase 259 U/L (38-126); Anion Gap 5 mmol/L (8-16); Aspartate Amino Transferase 39 U/L (17-59); Bilirubin,Total 0.2 mg/dL (0.2-1.3); Blood Urea Nitrogen 53 mg/dL (9-20); Calcium 8.7 mg/dL (8.4-10.2); Carbon Dioxide 23 mmol/L (22-30); Chloride 111 mmol/L (98-107); Estimated CRCL calculation 44 ml/min; Estimated Glomerular Filt Rate 38; Glucose 186 mg/dL (75-110); Sodium 139 mmol/L (137-145)
[2021-02-13 12:39] LABS: Lactic Acid Reflex 1.9 mmol/L (0.7-2.1)
[2021-02-13 12:42] LABS: Partial Thromboplastin Time 36.3 SECONDS (22.3-36.8)
[2021-02-13] MEDS: MORPHINE SULFATE (*CRX) 2 MG/ML INJ 1 MG IV PUSH ×3 (12:43→20:42)
[2021-02-13 12:50] LABS: Troponin I < 0.012 ng/mL (0.000-0.034)
--- NOTE | 2021-02-13 14:08 | PM.IMHP ---
H&P: HPI History of Present Illness Date/Time: 02/13/21 15:00 Chief Complaint: Shortness of breath. Narrative: This is a 45-year-old male with diabetes, chronic kidney disease, peripheral vascular disease, congestive heart failure, and hypertension who presented to the emergency department earlier today via EMS from home for evaluation of shortness of breath. 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 He is known to the hospitalist service with a recent admission from 01/20/2021 to 02/01/2021 at which time he presented with diarrhea and dark colored stools, found to have profound anemia, Hemoccult-positive stools, and acute kidney injury in addition anasarca. Upper and lower endoscopy per Dr. Delgado showed no evidence of bleeding but did show retained food in the stomach and nonbleeding diverticulosis. Two benign polyps were removed and he was transfused to a stable hemoglobin. He was also seen by Nephrology given acute kidney injury and a biopsy on 01/29/2021 showed acute tubular injury, mesangial IgA deposits, and nodular diabetic glomerulosclerosis class 3. Given his marked anasarca he was diuresed with good response initially however diuretics were ultimately held due to increasing creatinine. Echocardiogram showed combined systolic and diastolic congestive heart failure and subsequent Lexiscan stress test showed a large area of infarction for which he was seen by [facility] cardiology to optimize medical treatment. On the evening of 02/01/2021 he started to bleed quite profusely from the rectum, possibly post polypectomy bleeding, and he was transferred to an outside facility due to lack of GI coverage over the weekend. Patient reports having a repeat endoscopy there and was found to have an acute ulcer. He stayed for 2 nights and was discharged home about 8 days ago. He seemed to be doing okay initially although reports being quite swollen on discharge. Over the past several days he has had increasing shortness of breath with lesser and lesser exertion and it sounds like he has been having shortness of breath at nighttime as well. This morning he developed a dry, nagging cough and when he tried to drink some water it caused him to go into a coughing fit with increasing shortness of breath and thus he called 911. He was started on a CPAP by EMS and was transition to a BiPAP on arrival to the emergency department. Chest x-ray today showed diffuse lung disease consistent with pneumonia and/or pulmonary edema. He denies fever but has had some sweats. No sinus congestion, rhinorrhea, otalgia, or odynophagia. Cough is not been productive. He denies dysphagia and concerns for aspiration. He has not had any chest pain or pleuritic pain. No abdominal pain, nausea, vomiting, or diarrhea. His urine output has been a bit decreased which he has attributed to the fluid restriction he has been on. Review of Systems Review of Systems: Narrative: Twelve systems were reviewed with pertinent positives and negatives as per HPI. He has had chronic swelling in his left leg with a chronic wound that he states looks much better than what it has been. He has not had a fever to his knowledge. It does not sound as though he checks his glucose very often. No blurry vision, polydipsia, or polyuria. No dysuria, hematuria, or difficulties urinating. Except as documented, all other systems were reviewed and are negative. [facility] Past Medical History Medical History Anemia in chronic illness Cardiomyopathy Chronic kidney disease Combined congestive systolic and diastolic heart failure Mildly reduced LV systolic function with an EF of 40 to 45% and grade 2 diastolic dysfunction noted on echocardiogram dated 01/22/2021. Diverticulosis Hypertension Insulin dependent diabetes mellitus Hemoglobin A1c was 10.9% on 01/23/2021. Complicated by gastric dysmotility, neuropathy, and nephropath
[2021-02-13 14:27] LABS: NT Pro B Type Natriuretic Pept 24200 pg/mL (5-100)
--- NOTE | 2021-02-13 14:55 | PC.NURSE ---
pt appears remarkedly better. ease of breathing improved. respiration decreased to 25. tolerating cpap well. pt states is feeling much better.
--- NOTE | 2021-02-13 15:30 | ADMGEN ---
This patient, Gustavo Chacko, was admitted to Intensive Care Unit-2. Patient/family oriented to hospital policies and general routines including ID bracelet, bed and alarms, visiting hours, pain management, procedures, bathroom and other care routines, personal items, smoking policy, room service/diet, and visiting hours. Information on how to activate the Rapid Response Team has been discussed. Patient/Family are encouraged to report perceived risks to care and to ask questions if they do not understand what they are told or what they should do.
[2021-02-13 16:21] LABS: Troponin I 0.019 ng/mL (0.000-0.034)
[2021-02-13 19:40] LABS: Troponin I 0.026 ng/mL (0.000-0.034)
[2021-02-13] MEDS: FUROSEMIDE INJ 40 MG/4 ML VIAL 20 MG IV PUSH (20:42)
[2021-02-13 20:44] LABS: Alveolar/Arterial O2 Gradient 225.1 mmHg; Base Excess ABG -3.3 mEq/l (+/-2.0); Carboxyhemoglobin 0.3 % THb (0-2.0); Fractional Inspired Oxygen 50 %; HCO3 ABG 23.2 mEq/l (22.0-26.0); Methemoglobin ABG 0.4 %THb (0-1.5); Oxygen Content ABG 15.4 %vol (16.0-22.0); Oxyhemoglobin 93.9 % THb (90.0-100.0); PCO2 ABG 48.3 mmHg (35.0-45.0); PO2 ABG 77.1 mmHg (80.0-100.0); PO2 FiO2 Ratio Arterial Blood 1.54 %; Reduced Hemoglobin 5.4 %THb (0-5.0); Total Hemoglobin 11.6 g/dL (12.0-18.0)
[2021-02-13 20:45] LABS: Device BIPAP; Modified Allen's Test Pass; Site Drawn LEFT RADIAL
[2021-02-13 20:46] LABS: Expiratory Pressure 8 cmH2O; Inspiratory Pressure 14 cmH2O
[2021-02-14] VITALS (27 sets, daily range): BP systolic 104–129; BP diastolic 59–92; PULSE 59–87; RESP 15–34; TEMP 35.6–37; O2SAT 98–100
[2021-02-14] MEDS: METOPROLOL TARTRATE 50 MG TAB PO ×3 (00:38→21:42)
[2021-02-14 00:44] LABS: Glucose Point of Care 136 mg/dl (65-105)
[2021-02-14 06:02] LABS: Basophils Absolute Auto 0.1 K/mm3 (0.0-0.1); Basophils Percent Auto 0.8 % (0.2-1.2); Eosinophils Absolute Auto 0.2 K/mm3 (0-0.3); Eosinophils Percent Auto 2.6 % (0-4.4); Hematocrit 28.9 % (42.0-52.0); Hemoglobin 8.7 g/dL (14.0-18.0); Immature Granulocyte Absolute 0.02 K/mm3 (0.00-0.031); Immature Granulocyte Percent A 0.3 % (0-0.5); Lymphocytes Absolute Auto 0.52 K/mm3 (0.9-3.2); Lymphocytes Percent Auto 6.8 % (18.3-44.2); Mean Corpuscular HGB Conc 30.1 g/dl (32-36); Mean Corpuscular Hemoglobin 28.6 pg (26-34); Mean Corpuscular Volume 95.1 fl (80-100); Mean Platelet Volume 10.7 fl (7.4-10.4); Monocytes Absolute Auto 0.7 K/mm3 (0.1-0.6); Monocytes Percent Auto 8.6 % (2.6-8.5); Neutrophils Absolute Auto 6.2 K/mm3 (1.3-6.7); Neutrophils Percent Auto 80.9 % (45.5-73.1); Platelet Count Result 323 k/mm3 (150-375); Red Blood Count 3.04 M/mm3 (4.6-6.20); Red Cell Distribution Width 15.5 % (11.5-14.5); White Blood Count 7.6 K/mm3 (4.5-10.0)
[2021-02-14 06:10] LABS: Alanine Aminotransferase 19 U/L (4-50); Albumin Level 2.8 g/dL (3.5-5.1); Alkaline Phosphatase 171 U/L (38-126); Anion Gap 3 mmol/L (8-16); Aspartate Amino Transferase 27 U/L (17-59); Bilirubin,Total 0.2 mg/dL (0.2-1.3); Blood Urea Nitrogen 52 mg/dL (9-20); Calcium 8.4 mg/dL (8.4-10.2); Carbon Dioxide 22 mmol/L (22-30); Chloride 113 mmol/L (98-107); Estimated CRCL calculation 42 ml/min; Estimated Glomerular Filt Rate 31; Glucose 98 mg/dL (75-110); Potassium 5.6 mmol/L (3.4-5.0); Sodium 138 mmol/L (137-145)
[2021-02-14 08:08] LABS: Glucose Point of Care 86 mg/dl (65-105)
[2021-02-14] MEDS: glipiZIDE XL 5 MG TABCR 10 MG PO (08:31)
[2021-02-14] MEDS: ISOSORBIDE MONONITRATE 60 MG TAB.ER.24H PO (08:31)
[2021-02-14] MEDS: FUROSEMIDE INJ 40 MG/4 ML VIAL 20 MG IV PUSH (08:31)
[2021-02-14] MEDS: amLODIPine BESYLATE 5 MG TABLET 10 MG PO (08:31)
--- NOTE | 2021-02-14 08:37 | WPDCNINT ---
Assessment and Plan Assessment and plan (1) Acute respiratory failure: Qualifiers: Respiratory failure complication: unspecified whether with hypoxia or hypercapnia Qualified Code(s): J96.00 - Acute respiratory failure, unspecified whether with hypoxia or hypercapnia Code(s): J96.00 - Acute respiratory failure, unspecified whether with hypoxia or hypercapnia Status: Acute Assessment and Plan: Patient presented with acute shortness of breath which has been worsening for several days -could be related to pneumonia, congestive heart failure/volume overload -patient placed on BiPAP. ABGs last night seems to have improved since patient presented to the ED -continue BiPAP, antibiotics, diuretics -chest x-ray this morning shows progression off diffuse bilateral airspace disease most likely edema versus pneumonia -SARS-CoV-2 PCR PCR pending (2) Combined congestive systolic and diastolic heart failure: Code(s): I50.40 - Unspecified combined systolic (congestive) and diastolic (congestive) heart failure Status: Acute Assessment and Plan: Patient has a known history of systolic and diastolic heart failure -echocardiogram 01/22/2021 showed EF of 40-45%, grade 2 diastolic dysfunction, severe mitral valve regurgitation -continue diuresis, Imdur -cardiology to follow the patient (3) Suspected COVID-19 virus infection: Code(s): Z20.822 - Contact with and (suspected) exposure to COVID-19 Status: Acute Assessment and Plan: Patient bilateral diffuse infiltrates, SARS-CoV-2 PCR has been obtained and pending -continue droplet, airborne, contact isolation/precautions -patient stated he has not received his COVID-19 vaccines (4) Community acquired pneumonia: Code(s): J18.9 - Pneumonia, unspecified organism Status: Acute Assessment and Plan: Bilateral diffuse infiltrates on chest x-ray could be related to pulmonary edema and pneumonia -Continue patient on Zosyn and vancomycin -nonproductive cough seems to have improved this morning -continue BiPAP (5) Insulin dependent diabetes mellitus: Status: Chronic Assessment and Plan: , takes metformin and glipizide at home -hemoglobin A1c was 10.9 on 01/23/2021 -in you sliding scale insulin and Accu-Cheks (6) Anemia in chronic illness: Code(s): D63.8 - Anemia in other chronic diseases classified elsewhere Status: Acute Assessment and Plan: Patient with anemia of chronic disease, will monitor hemoglobin closely -transfuse if hemoglobin less than 7.0 (7) Acute renal insufficiency: Code(s): N28.9 - Disorder of kidney and ureter, unspecified Status: Acute Assessment and Plan: Acute on chronic kidney disease, likely related to hypertension, diabetes, vascular disease -patient was recently admitted to [facility] with acute kidney injury, proteinuria -nephrology was following the patient, left kidney ultrasound guided biopsy showed mesangial IgA deposits, nodular diabetic glomerulosclerosis class 3, acute tubular injury -patient being diuresed despite which he is not having adequate urine output. Bedside RN was unable to place a Ramirez -urology has been consulted to place a Ramirez catheter for possible obstructive uropathy (8) Leg ulcer, left: Code(s): L97.929 - Non-pressure chronic ulcer of unspecified part of left lower leg with unspecified severity Status: Acute Assessment and Plan: Wound care to be consulted (9) CAD (coronary artery disease): Code(s): I25.10 - Atherosclerotic heart disease of [place] coronary artery without angina pectoris Status: Acute Assessment and Plan: Coronary artery disease, Lexiscan stress test was done on 01/26/2021 infarct involving apical lateral and mid to basal anterolateral inferior lateral segments of left ventricle, EF was 45% .-cardiology will be following the patient Additional Plan Discussed with patient and
[2021-02-14 09:19] LABS: Alveolar/Arterial O2 Gradient 204.2 mmHg; Base Excess ABG -2.1 mEq/l (+/-2.0); Fractional Inspired Oxygen 50 %; HCO3 ABG 22.7 mEq/l (22.0-26.0); Oxygen Content ABG 12.8 %vol (16.0-22.0); Oxyhemoglobin 96.7 % THb (90.0-100.0); PCO2 ABG 38.4 mmHg (35.0-45.0); PO2 ABG 109.1 mmHg (80.0-100.0); PO2 FiO2 Ratio Arterial Blood 2.18 %; Total Hemoglobin 9.3 g/dL (12.0-18.0); pH ABG 7.389 (7.350-7.450)
[2021-02-14 09:21] LABS: Device NON-INVASIVE VENT; Modified Allen's Test Pass; Site Drawn RIGHT RADIAL
[2021-02-14 09:22] LABS: Non-Invasive Expiratory Pressure 8 CMH2O; Non-Invasive Inspiratory Pressure 16 CMH2O; Non-Invasive Vent Rate 12 /MIN
[2021-02-14] MEDS: MORPHINE SULFATE (*CRX) 2 MG/ML INJ (10:29)
--- NOTE | 2021-02-14 11:02 | WPDURCON ---
Assessment and Plan Assessment and plan (1) Phimosis of penis: Code(s): N47.1 - Phimosis Status: Acute Assessment and Plan: 45 yo WM admitted with SOB and r/o Covid. Has phimosis and ICU credit card clerk is requesting parra for accurate I&O. After discussing this with patient using video printer slotter feeder, he was prepped and draped in a sterile fashion. A 16 fr parra was placed with return of clear yellow urine. Voiding trial per ICU team. Call with questions. Urology Consult Note HPI Date Seen: 02/14/21 Requesting Physician: Del Pugh MD Primary Care Provider: MEDICAL CLAIMS PROCESSOR PHYSICIAN Consult Narrative Narrative: Gustavo Chacko is a 45 year old male admitted to ICU with SOB and r/o COVID. ICU credit card clerk is requesting parra placement for accurate I&O and possible diuresis. RN was unable to place parra due to phimosis. I was consulted for parra placement. Pt denied any compliants. Is currently on BiPAP. I spoke with him using video printer slotter feeder. Review of Systems Review of Systems: All systems reviewed & are unremarkable except as noted in HPI and below Constitutional: Constitutional: Reports fatigue and Reports malaise Cardiovascular: Cardiovascular: Reports edema and Reports dyspnea Respiratory: Respiratory: Reports cough, Reports dyspnea and Reports dyspnea on exertion Gastrointestinal: Gastrointestinal: Reports change in stool character (constipated) [facility] Past Medical History Medical History Anemia in chronic illness Cardiomyopathy Chronic kidney disease Combined congestive systolic and diastolic heart failure Mildly reduced LV systolic function with an EF of 40 to 45% and grade 2 diastolic dysfunction noted on echocardiogram dated 01/22/2021. Diverticulosis Hypertension Insulin dependent diabetes mellitus Hemoglobin A1c was 10.9% on 01/23/2021. Complicated by gastric dysmotility, neuropathy, and nephropathy. Ischemic cardiomyopathy Lexiscan stress on 01/26/2021 showed a large area of severe infarct involving the apical lateral and mid to basal anterolateral and inferolateral segments of left ventricle on myocardial perfusion imaging with a left ventricular ejection fracture measuring 45%. Peripheral vascular disease Severe mitral valve regurgitation (01/22/21) Surgical History Surgical History History of colonoscopy with polypectomy (01/27/21) 2 benign polyps removed. History of right below knee amputation Family History Family History Other Unknown family medical history Social History Social History (Updated 02/13/21 @ 23:36 by Lakshmi Lujan PA-C) Social History: The patient lives in [place] with his sister, [id number], nieces, and nephews. Nonsmoker. No alcohol or illicit substance abuse. He designates his sister, Birdie Stroud, as his surrogate decision maker and he wishes to be a full code. Meds Home Medications and Allergies Home Medications Medication Instructions Recorded Confirmed Type glipizide 10 mg PO DAILY 01/19/21 02/13/21 History metformin 1,000 mg PO BID 01/19/21 01/20/21 History amlodipine 10 mg PO DAILY 02/13/21 02/13/21 History hydrochlorothiazide 25 mg PO DAILY 02/13/21 02/13/21 History isosorbide mononitrate 60 mg PO DAILY 02/13/21 02/13/21 History metoprolol tartrate 50 mg PO BID 02/13/21 02/13/21 History Allergies Allergy/AdvReac Type Severity Reaction Status Date / Time No Known Allergies Allergy Verified 01/19/21 20:35 Vital Signs Vital Signs - 24 hr 02/13/21 12:09 02/13/21 12:10 02/13/21 12:12 Temperature Pulse Rate 111 H 115 H 111 H Respiratory Rate 54 H 51 H Blood Pressure 148/90 H 148/90 H Pulse Oximetry 84 L 100 02/13/21 12:20 02/13/21 12:34 02/13/21 12:43 Temperature Pulse Rate 113 H 106 H 102 H Respiratory Rate 46 H
[2021-02-14] MEDS: ALBUMIN HUMAN 25% 12.5 GM/50ML 50 ML IVPB ×3 (11:20→23:29)
[2021-02-14 11:40] LABS: Glucose Point of Care 75 mg/dl (65-105)
[2021-02-14] MEDS: IPRATROPIUM BR 0.02% INH SOLN 0.5 MG/2.5 ML VIAL INHALATION ×2 (15:25→21:23)
[2021-02-14] MEDS: ALBUTEROL SULFATE NEB 2.5 MG/0.5 ML INH INHALATION ×2 (15:26→21:22)
--- NOTE | 2021-02-14 15:43 | P.CONNP_ITS ---
Assessment and Plan Assessment and plan (1) Chronic kidney disease: Code(s): N18.9 - Chronic kidney disease, unspecified Status: Acute Assessment and Plan: * unclear what true baseline creatinine is... * on last admission, it had relatively stable around 3.0mg/dl * it acute krystle due to presumated renal hypoperfusion in the setting of an acute GI bleed * by the time of discharge from [facility] in [place], his creatinine was down to 2.3mg/dl * creatinine down to 1.9mg/dl on admission here -- however, this could be a dilutional value given his fluid overload * renal biopsy on last hospitalization consistently mainly with diabetic nephropathy * follow trend of kidney function with diuresis (2) Anasarca: Code(s): R60.1 - Generalized edema Status: Acute Assessment and Plan: * partly related to nephrotic range proteinuria and nephrotic syndrome along w ith heart failure * not opposed to trial of IV albumin * continue IV diuretics but will switch to IV bumex given his underlying CKD * follow I/O's and exam (3) Acute respiratory failure: Qualifiers: Respiratory failure complication: unspecified whether with hypoxia or hypercapnia Qualified Code(s): J96.00 - Acute respiratory failure, unspecified whether with hypoxia or hypercapnia Code(s): J96.00 - Acute respiratory failure, unspecified whether with hypoxia or hypercapnia Status: Acute Assessment and Plan: * due to volume overload and possible pneumonia * BiPAP support * diuresis and antibiotics * follow respiratory status (4) Combined congestive systolic and diastolic heart failure: Code(s): I50.40 - Unspecified combined systolic (congestive) and diastolic (congestive) heart failure Status: Acute Assessment and Plan: * as noted by evaluation here on last hospitalization * acute exacerbation noted on this admission * complicated by noncompliance (no fluid restriction and unclear if he was on/taking diuretic therapy) * follow I/Os, daily weights, and exam * I worry this may be a recurring problem.... (5) Pneumonia: Code(s): J18.9 - Pneumonia, unspecified organism Status: Acute (6) Anemia: Code(s): D64.9 - Anemia, unspecified Status: Acute Assessment and Plan: * suggested by admission imaging * on antibiotic therapy * follow cultures (7) Hypertension: Code(s): I10 - Essential (primary) hypertension Status: Acute Assessment and Plan: * well controlled at this time * follow trend of hemodynamics (8) Diabetes: Code(s): E11.9 - Type 2 diabetes mellitus without complications Status: Chronic Assessment and Plan: * poor control at baseline * follow accuchecks * glycemic control Will continue to follow. History of Present Illness Reason for Consult Consult date: 02/14/21 Reason for consult: chronic renal failure Chief Complaint Chief complaint: Acute Respiratory Failure c/ hypoxia, pulmonary ed History of Present Illness Narrative: The patient is a 45-year-old male with an extensive past medical history as outlined below who presented to [facility] ER via EMS for shortness of breath. The patient was recently hospitalized here at [facility] during the 1st two weeks of January 2021 when he initially presented with profound anemia and suspected GI bleed on top of renal failure in association with volume overload / anasarca. During that hospitalization, he underwent upper and lower endosc
--- NOTE | 2021-02-14 15:43 | PM.CNNEP ---
Assessment and Plan Assessment and plan (1) Chronic kidney disease: Code(s): N18.9 - Chronic kidney disease, unspecified Status: Acute Assessment and Plan: unclear what true baseline creatinine is... on last admission, it had relatively stable around 3.0mg/dl it acute krystle due to presumated renal hypoperfusion in the setting of an acute GI bleed by the time of discharge from [facility] in [place], his creatinine was down to 2.3mg/dl creatinine down to 1.9mg/dl on admission here -- however, this could be a dilutional value given his fluid overload renal biopsy on last hospitalization consistently mainly with diabetic nephropathy follow trend of kidney function with diuresis (2) Anasarca: Code(s): R60.1 - Generalized edema Status: Acute Assessment and Plan: partly related to nephrotic range proteinuria and nephrotic syndrome along with heart failure not opposed to trial of IV albumin continue IV diuretics but will switch to IV bumex given his underlying CKD follow I/O's and exam (3) Acute respiratory failure: Qualifiers: Respiratory failure complication: unspecified whether with hypoxia or hypercapnia Qualified Code(s): J96.00 - Acute respiratory failure, unspecified whether with hypoxia or hypercapnia Code(s): J96.00 - Acute respiratory failure, unspecified whether with hypoxia or hypercapnia Status: Acute Assessment and Plan: due to volume overload and possible pneumonia BiPAP support diuresis and antibiotics follow respiratory status (4) Combined congestive systolic and diastolic heart failure: Code(s): I50.40 - Unspecified combined systolic (congestive) and diastolic (congestive) heart failure Status: Acute Assessment and Plan: as noted by evaluation here on last hospitalization acute exacerbation noted on this admission complicated by noncompliance (no fluid restriction and unclear if he was on/taking diuretic therapy) follow I/Os, daily weights, and exam I worry this may be a recurring problem.... (5) Pneumonia: Code(s): J18.9 - Pneumonia, unspecified organism Status: Acute (6) Anemia: Code(s): D64.9 - Anemia, unspecified Status: Acute Assessment and Plan: suggested by admission imaging on antibiotic therapy follow cultures (7) Hypertension: Code(s): I10 - Essential (primary) hypertension Status: Acute Assessment and Plan: well controlled at this time follow trend of hemodynamics (8) Diabetes: Code(s): E11.9 - Type 2 diabetes mellitus without complications Status: Chronic Assessment and Plan: poor control at baseline follow accuchecks glycemic control Will continue to follow. History of Present Illness Reason for Consult Consult date: 02/14/21 Reason for consult: chronic renal failure Chief Complaint Chief complaint: Acute Respiratory Failure c/ hypoxia, pulmonary ed History of Present Illness Narrative: The patient is a 45-year-old male with an extensive past medical history as outlined below who presented to [facility] ER via EMS for shortness of breath. The patient was recently hospitalized here at [facility] during the 1st two weeks of January 2021 when he initially presented with profound anemia and suspected GI bleed on top of renal failure in association with volume overload / anasarca. During that hospitalization, he underwent upper and lower endoscopy by Gastroenterology which did not demonstrate any acute bleeding. He did have two benign polyps that were removed and he was transfused with packed red blood cell transfusions to get his hemoglobin hematocrit at goal. With regard to his renal failure and volume overload, he was aggressively diuresed with IV Bumex and was being followed by Cardiology as he had clear evidence of both systolic and diastolic heart failure but ski bobby evaluation was
--- NOTE | 2021-02-14 16:32 | PM.CNCAR ---
Assessment and Plan Assessment and plan (1) CHF (congestive heart failure): Code(s): I50.9 - Heart failure, unspecified Status: Acute Assessment and Plan: acute decompensated heart failure secondary to patient's admission to noncompliance with medical therapy, LV dysfunction, acute renal failure. Compliance counseled with medical therapy. Continue diuresis as tolerated. Monitor renal function. Nephrology following. Input and output, daily weight. due to noncompliance patient is not a candidate for further invasive workup even if an option unfortunately. EF 40-45%. Possible underlying CAD given abnormal stress test with area of large severe infarct extending from the apical lateral and mid to basal anterolateral and inferolateral segments. Prognosis is very poor given patient's multiple comorbidities multiorgan system failure, with noncompliance. Will continue to optimize medical therapy as he tolerates all hospitalized but he must remain compliant with recommendations, follow up and medical therapy as he will remain at high risk for serious and or fatal complications otherwise. This was discussed with the patient who acknowledged understanding (2) Acute respiratory failure: Qualifiers: Respiratory failure complication: unspecified whether with hypoxia or hypercapnia Qualified Code(s): J96.00 - Acute respiratory failure, unspecified whether with hypoxia or hypercapnia Code(s): J96.00 - Acute respiratory failure, unspecified whether with hypoxia or hypercapnia Status: Acute Assessment and Plan: Continue noninvasive positive pressure ventilation per Critical Care. Wean as tolerated. Continue diuresis, IV antibiotics. (3) Acute respiratory failure with hypoxia: Code(s): J96.01 - Acute respiratory failure with hypoxia Status: Acute Assessment and Plan: As above. (4) Noncompliance: Code(s): Z91.19 - Patient's noncompliance with other medical treatment and regimen Status: Acute Assessment and Plan: Very likely a significant contributor to patient's repeat acute hospitalization. Patient is aware. (5) GLENN (acute kidney injury): Code(s): N17.9 - Acute kidney failure, unspecified Status: Acute Assessment and Plan: Acute on chronic renal failure. Nephrology following. Biopsy results as noted above in HPI. (6) Anemia, iron deficiency: Code(s): D50.9 - Iron deficiency anemia, unspecified Status: Acute Assessment and Plan: Follow H&H, stable although significantly anemic. Patient remains a poor candidate for antiplatelet therapy. (7) Insulin dependent diabetes mellitus: Status: Chronic Assessment and Plan: Per primary service. (8) Suspected COVID-19 virus infection: Code(s): Z20.822 - Contact with and (suspected) exposure to COVID-19 Status: Acute Assessment and Plan: Remains on isolation. History of Present Illness History of Present Illness Consult date/time: Date of service: 02/14/21 16:32 Cardiology consultation at the request of Dr. Griffith for my opinion regarding CHF. 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 Per electronic medical record he presented with dark stool, diarrhea at prior hospitalization and severe anemia requiring blood transfusion. Anticoagula
[2021-02-14 16:57] LABS: SARS-CoV-2 RNA PCR Negative
[2021-02-14] MEDS: BUMETANIDE INJ 2.5 MG/10 ML VIAL 1.5 MG IV PUSH (18:35)
[2021-02-14 18:41] LABS: Glucose Point of Care 90 mg/dl (65-105)
[2021-02-14 18:41] LABS: Glucose Point of Care 32 mg/dl (65-105)
[2021-02-14 23:04] LABS: Glucose Point of Care 32 mg/dl (65-105)
[2021-02-14] MEDS: DEXTROSE 50% 25 GM/50 ML SYRINGE IV PUSH (23:29)
[2021-02-14 23:45] LABS: Glucose Point of Care 57 mg/dl (65-105)
[2021-02-15] VITALS (29 sets, daily range): BP systolic 94–141; BP diastolic 53–83; PULSE 65–89; RESP 22–36; TEMP 36.3–37.1; O2SAT 97–100
[2021-02-15 00:02] LABS: Glucose Point of Care 103 mg/dl (65-105)
[2021-02-15] MEDS: ALBUTEROL SULFATE NEB 2.5 MG/0.5 ML INH INHALATION ×4 (02:39→19:21)
[2021-02-15] MEDS: IPRATROPIUM BR 0.02% INH SOLN 0.5 MG/2.5 ML VIAL INHALATION ×4 (02:39→19:21)
[2021-02-15 04:09] LABS: Glucose Point of Care 33 mg/dl (65-105)
[2021-02-15] MEDS: GLUCAGON FOR INJ 1 MG VIAL IM (04:11)
[2021-02-15 04:14] LABS: Mean Corpuscular HGB Conc 29.6 g/dl (32-36); Mean Corpuscular Hemoglobin 28.4 pg (26-34); Mean Corpuscular Volume 95.7 fl (80-100); Mean Platelet Volume 10.5 fl (7.4-10.4); Platelet Count Result 293 k/mm3 (150-375); Red Blood Count 2.82 M/mm3 (4.6-6.20); White Blood Count 7.6 K/mm3 (4.5-10.0)
[2021-02-15 04:29] LABS: Alanine Aminotransferase 18 U/L (4-50); Albumin Level 3.1 g/dL (3.5-5.1); Alkaline Phosphatase 205 U/L (38-126); Anion Gap 6 mmol/L (8-16); Aspartate Amino Transferase 31 U/L (17-59); Bilirubin,Total 0.4 mg/dL (0.2-1.3); Blood Urea Nitrogen 57 mg/dL (9-20); Calcium 8.8 mg/dL (8.4-10.2); Carbon Dioxide 22 mmol/L (22-30); Chloride 110 mmol/L (98-107); Estimated CRCL calculation 38 ml/min; Estimated Glomerular Filt Rate 27; Glucose 41 mg/dL (75-110); Magnesium 2.4 mg/dL (1.6-2.3); Phosphorus 4.5 mg/dL (2.5-4.5); Potassium 5.1 mmol/L (3.4-5.0); Sodium 138 mmol/L (137-145)
[2021-02-15] MEDS: DEXTROSE 50% 25 GM/50 ML SYRINGE IV PUSH ×2 (04:35→06:51)
[2021-02-15 04:36] LABS: Glucose Point of Care 33 mg/dl (65-105)
[2021-02-15 04:58] LABS: CRP 19.8 mg/dL (<1.0)
[2021-02-15 05:07] LABS: Glucose Point of Care 89 mg/dl (65-105)
[2021-02-15 05:26] LABS: Alveolar/Arterial O2 Gradient 113.1 mmHg; Base Excess ABG -2.8 mEq/l (+/-2.0); Carboxyhemoglobin 0.3 % THb (0-2.0); Fractional Inspired Oxygen 35 %; HCO3 ABG 22.7 mEq/l (22.0-26.0); Methemoglobin ABG 0.5 %THb (0-1.5); Oxygen Content ABG 14.3 %vol (16.0-22.0); Oxygen Saturation ABG 96.3 % (95.0-100.0); Oxyhemoglobin 95.4 % THb (90.0-100.0); PO2 ABG 87.6 mmHg (80.0-100.0); Reduced Hemoglobin 3.8 %THb (0-5.0); Total Hemoglobin 10.6 g/dL (12.0-18.0)
[2021-02-15 06:08] LABS: Device NON-INVASIVE VENT; Modified Allen's Test Pass; Site Drawn RIGHT RADIAL
[2021-02-15 06:09] LABS: Non-Invasive Expiratory Pressure 8 CMH2O; Non-Invasive Inspiratory Pressure 16 CMH2O; Non-Invasive Vent Rate 12 /MIN
[2021-02-15] MEDS: ALBUMIN HUMAN 25% 12.5 GM/50ML 50 ML IVPB (06:25)
[2021-02-15 06:44] LABS: Glucose Point of Care 58 mg/dl (65-105)
[2021-02-15 07:26] LABS: Glucose Point of Care 105 mg/dl (65-105)
[2021-02-15 07:26] LABS: Glucose Point of Care 58 mg/dl (65-105)
[2021-02-15 08:58] LABS: Glucose Point of Care 60 mg/dl (65-105)
[2021-02-15] MEDS: BUMETANIDE INJ 2.5 MG/10 ML VIAL 1.5 MG IV PUSH ×2 (09:07→17:39)
[2021-02-15] MEDS: METOPROLOL TARTRATE 50 MG TAB PO ×2 (09:07→20:12)
[2021-02-15] MEDS: amLODIPine BESYLATE 5 MG TABLET 10 MG PO (09:07)
[2021-02-15] MEDS: ISOSORBIDE MONONITRATE 60 MG TAB.ER.24H PO (09:07)
--- NOTE | 2021-02-15 11:33 | PM.IMPN ---
Progress Note: A&P Assessment and Plan (1) Acute respiratory failure: Qualifiers: Respiratory failure complication: unspecified whether with hypoxia or hypercapnia Qualified Code(s): J96.00 - Acute respiratory failure, unspecified whether with hypoxia or hypercapnia Code(s): J96.00 - Acute respiratory failure, unspecified whether with hypoxia or hypercapnia Status: Acute Assessment and Plan: BiPAP p.r.n. wean patient off oxygen as tolerated (2) Abnormal chest x-ray: Code(s): R93.89 - Abnormal findings on diagnostic imaging of other specified body structures Status: Acute Assessment and Plan: treat pneumonia, and CHF (3) Combined congestive systolic and diastolic heart failure: Code(s): I50.40 - Unspecified combined systolic (congestive) and diastolic (congestive) heart failure Status: Acute Assessment and Plan: Lasix prn (4) Insulin dependent diabetes mellitus: Status: Chronic Assessment and Plan: monitor blood sugar (5) Anemia in chronic illness: Code(s): D63.8 - Anemia in other chronic diseases classified elsewhere Status: Acute Assessment and Plan: Hemoglobin and hematocrit are stable and will be monitored. (6) Chronic kidney disease: Code(s): N18.9 - Chronic kidney disease, unspecified Status: Acute Assessment and Plan: Monitor closely while diuresing. Subjective Date/time seen: 02/15/21 11:33 Interval history: patient shortness of breath and chest discomfort are better today, denies any pain Exam Const: General: cooperative and no acute distress HENMT: Head: normal to inspection Eyes: General: appearance normal, both eyes and all related structures Neck: Neck: normal visual inspection Chest: Chest palpation & inspection: normal inspection of the chest Resp: Effort & Inspection: normal respiratory effort Cardio: Jugular venous distension: no JVD Rate: regular rate GI: Inspection: normal to inspection and non-distended Objective Data Vital Signs Vital Signs: Vital Signs - 24 hr 02/14/21 12:00 02/14/21 14:00 02/14/21 15:26 Temperature 98.2 F Pulse Rate 62 69 73 Respiratory Rate 28 H 15 34 H Blood Pressure 108/63 106/67 Pulse Oximetry 100 99 02/14/21 15:27 02/14/21 15:33 02/14/21 16:00 Temperature 97.4 F L Pulse Rate 69 72 75 Respiratory Rate 30 H 28 H 27 H Blood Pressure 120/69 Pulse Oximetry 100 100 02/14/21 17:23 02/14/21 18:00 02/14/21 20:00 Temperature 97.5 F L Pulse Rate 68 65 69 Respiratory Rate 21 H 24 H 23 H Blood Pressure 115/74 104/69 Pulse Oximetry 100 100 100 02/14/21 21:23 02/14/21 21:31 02/14/21 21:42 Temperature Pulse Rate 77 77 85 Respiratory Rate 32 H 31 H Blood Pressure Pulse Oximetry 99 02/14/21 22:00 02/14/21 23:25 02/14/21 23:35 Temperature 97.4 F L Pulse Rate 87 82 81 Respiratory Rate 23 H 30 H 30 H Blood Pressure 127/69 122/75 Pulse Oximetry 98 100 99 02/14/21 23:45 02/15/21 00:00 02/15/21 02:00 Temperature Pulse Rate 77 76 Respiratory Rate 26 H Blood Pressure 108/55 L Pulse Oximetry 100 100 02/15/21 02:40 02/15/21 02:49 02/15/21 03:40 Temperature 97.3 F L Pulse Rate 81 81 84 Respiratory Rate 34 H 36 H 29 H Blood Pressure 112/53 L Pulse Oximetry 100 100 02/15/21 04:00 02/15/21 05:36 02/15/21 06:00 Temperature Pulse Rate 89 65 Respiratory Rate 27 H 25 H Blood Pressure 110/68 Pulse Oximetry 100 02/15/21 08:00 02/15/21 08:25 02/15/21 09:20 Temperature 97.8 F Pulse Rate 83 74 80 Respiratory Rate 23 H 26 H 23 H Blood Pressure 123/83 Pulse Oximetry 99 99 02/15/21 09:27 02/15/21 10:00 Temperature Pulse Rate 83 74 Respiratory Rate 23 H 26 H Blood Pressure 119/68 Pulse Oximetry 100 Intake/Output Intake/Output: Intake & Output 02/12/21 02/13/21 02/14/21 02/15/21 23:59 23:59 23:59 23:59 Intake
--- NOTE | 2021-02-15 11:38 | PM.IMPN ---
Subjective Date/time seen: 02/15/21 11:38 Objective Data Vital Signs Vital Signs: Vital Signs - 24 hr 02/14/21 12:00 02/14/21 14:00 02/14/21 15:26 Temperature 98.2 F Pulse Rate 62 69 73 Respiratory Rate 28 H 15 34 H Blood Pressure 108/63 106/67 Pulse Oximetry 100 99 02/14/21 15:27 02/14/21 15:33 02/14/21 16:00 Temperature 97.4 F L Pulse Rate 69 72 75 Respiratory Rate 30 H 28 H 27 H Blood Pressure 120/69 Pulse Oximetry 100 100 02/14/21 17:23 02/14/21 18:00 02/14/21 20:00 Temperature 97.5 F L Pulse Rate 68 65 69 Respiratory Rate 21 H 24 H 23 H Blood Pressure 115/74 104/69 Pulse Oximetry 100 100 100 02/14/21 21:23 02/14/21 21:31 02/14/21 21:42 Temperature Pulse Rate 77 77 85 Respiratory Rate 32 H 31 H Blood Pressure Pulse Oximetry 99 02/14/21 22:00 02/14/21 23:25 02/14/21 23:35 Temperature 97.4 F L Pulse Rate 87 82 81 Respiratory Rate 23 H 30 H 30 H Blood Pressure 127/69 122/75 Pulse Oximetry 98 100 99 02/14/21 23:45 02/15/21 00:00 02/15/21 02:00 Temperature Pulse Rate 77 76 Respiratory Rate 26 H Blood Pressure 108/55 L Pulse Oximetry 100 100 02/15/21 02:40 02/15/21 02:49 02/15/21 03:40 Temperature 97.3 F L Pulse Rate 81 81 84 Respiratory Rate 34 H 36 H 29 H Blood Pressure 112/53 L Pulse Oximetry 100 100 02/15/21 04:00 02/15/21 05:36 02/15/21 06:00 Temperature Pulse Rate 89 65 Respiratory Rate 27 H 25 H Blood Pressure 110/68 Pulse Oximetry 100 02/15/21 08:00 02/15/21 08:25 02/15/21 09:20 Temperature 97.8 F Pulse Rate 83 74 80 Respiratory Rate 23 H 26 H 23 H Blood Pressure 123/83 Pulse Oximetry 99 99 02/15/21 09:27 02/15/21 10:00 Temperature Pulse Rate 83 74 Respiratory Rate 23 H 26 H Blood Pressure 119/68 Pulse Oximetry 100 Intake/Output Intake/Output: Intake & Output 02/12/21 02/13/21 02/14/21 02/15/21 23:59 23:59 23:59 23:59 Intake Total 450 600 910 Output Total 400 600 600 Balance 50 0 310 Meds/Results Medications: Active Medications Generic Name Dose Route Start Last Admin Trade Name Freq PRN Reason Stop Dose Admin Albuterol 2.5 mg 02/14/21 14:00 02/15/21 09:19 Albuterol Sulfate Neb 2.5 Mg/0.5 Ml Inh INHALATION 2.5 mg Q6HRT GEE Administration Amlodipine Besylate 10 mg 02/14/21 09:00 02/15/21 09:07 Amlodipine Besylate 5 Mg Tablet PO 10 mg DAILY GEE Administration Bumetanide 1.5 mg 02/14/21 18:05 02/15/21 09:07 Bumetanide Inj 2.5 Mg/10 Ml Vial IV PUSH 1.5 mg BID GEE Administration Dextrose 12.5 gm 02/13/21 23:42 02/15/21 06:51 Dextrose 50% 25 Gm/50 Ml Syringe IV PUSH 12.5 gm PRN PRN Administration Hypoglycemia Protocol Glucagon 1 mg 02/13/21 23:42 02/15/21 04:11 Glucagon For Inj 1 Mg Vial IM 1 mg PRN PRN Administration Hypoglycemia Protocol Glucose 15 gm 02/13/21 23:42 Glucose Oral Gel 15 Gm Of Glucse In 37.5 Gm Tube PO PRN PRN Hypoglycemia Protocol Vancomycin HCl 1,250 mg in 250 mls @ 200 mls/hr 02/14/21 15:00 02/14/21 16:30 Vancomycin 1,250 Mg/D5w 250 Ml IVPB Infused Q24H GEE Infusion Cefepime HCl 2 gm in 50 mls @ 100 mls/hr 02/13/21 21:00 02/14/21 22:12 Maxipime 2 Gm/D5w 50 Ml IVPB Infused HS GEE Infusion Dextrose 1,000 mls @ 100 mls/hr 02/13/21 23:42 Dextrose 5% 1,000 Ml IVPB PRN PRN Hypoglycemia Protocol Insulin Aspart 2 - 5 units 02/14/21 12:00 02/15/21 05:10 Insulin Aspart (*Bkc) 100 Units/Ml SUB-Q Not Given Q6HR REPLACED BY [facility] Protocol Ipratropium [place] 0.5 mg 02/14/21 14:00 02/15/21 09:19 Ipratropium Br 0.02% Inh Soln 0.5 Mg/2.5 Ml Vial INHALATION 0.5 mg Q6HRT REPLACED BY [facility] Administration Isosorbide Mononitrate 60 mg 02/14/21 09:00 02/15/21 09:07 Isosorbide Mononitrate 60 Mg Tab.Er.24h PO 60 mg DAILY REPLACED BY [facility] Administration Metoprolol Tartrate 50 mg 02/13/21 23:50 02/15/21 09:07 Metoprolol Tartrate 5
[2021-02-15 12:05] LABS: Glucose Point of Care 50 mg/dl (65-105)
[2021-02-15] MEDS: GLUCOSE ORAL GEL 15 GM OF GLUCSE IN 37.5 GM TUBE PO (12:12)
[2021-02-15 13:03] LABS: Glucose Point of Care 90 mg/dl (65-105)
--- NOTE | 2021-02-15 13:29 | WPDINTPN ---
Progress Note: A&P Assessment and Plan (1) Acute respiratory failure: Qualifiers: Respiratory failure complication: unspecified whether with hypoxia or hypercapnia Qualified Code(s): J96.00 - Acute respiratory failure, unspecified whether with hypoxia or hypercapnia Code(s): J96.00 - Acute respiratory failure, unspecified whether with hypoxia or hypercapnia Status: Acute Assessment and Plan: Patient presented with acute shortness of breath which has been worsening for several days -could be related to pneumonia, congestive heart failure/volume overload -patient placed on BiPAP. ABGs much improved this morning -continue BiPAP, antibiotics, diuretics -chest x-ray this morning shows progression off diffuse bilateral airspace disease most likely edema versus pneumonia -SARS-CoV-2 PCR PCR negative (2) Combined congestive systolic and diastolic heart failure: Code(s): I50.40 - Unspecified combined systolic (congestive) and diastolic (congestive) heart failure Status: Acute Assessment and Plan: Patient has a known history of systolic and diastolic heart failure -echocardiogram 01/22/2021 showed EF of 40-45%, grade 2 diastolic dysfunction, severe mitral valve regurgitation -continue diuresis, Imdur -cardiology to follow the patient (3) Suspected COVID-19 virus infection: Code(s): Z20.822 - Contact with and (suspected) exposure to COVID-19 Status: Acute Assessment and Plan: Patient bilateral diffuse infiltrates, SARS-CoV-2 PCR has been obtained is NEGATIVE -patient stated he has not received his COVID-19 vaccines (4) Community acquired pneumonia: Code(s): J18.9 - Pneumonia, unspecified organism Status: Acute Assessment and Plan: Bilateral diffuse infiltrat es on chest x-ray could be related to pulmonary edema and pneumonia -Continue patient on cefepime and vancomycin -nonproductive cough seems to have improved this morning -continue BiPAP (5) Insulin dependent diabetes mellitus: Status: Chronic Assessment and Plan: , takes metformin and glipizide at home -hemoglobin A1c was 10.9 on 01/23/2021 - patient has been hypoglycemic requiring D50 and glucagon since he received glipizide extended release on 02/14/2021 - continue to monitor sugars closely (6) Anemia in chronic illness: Code(s): D63.8 - Anemia in other chronic diseases classified elsewhere Status: Acute Assessment and Plan: Patient with anemia of chronic disease, will monitor hemoglobin closely -transfuse if hemoglobin less than 7.0 (7) Acute renal insufficiency: Code(s): N28.9 - Disorder of kidney and ureter, unspecified Status: Acute Assessment and Plan: Acute on chronic kidney disease, likely related to hypertension, diabetes, vascular disease -patient was recently admitted to [facility] with acute kidney injury, proteinuria -nephrology was following the patient, left kidney ultrasound guided biopsy showed mesangial IgA deposits, nodular diabetic glomerulosclerosis class 3, acute tubular injury -patient being diuresed despite which he is not having adequate urine output. Bedside RN was unable to place a Ramirez - appreciate urology placing a Ramirez catheter - appreciate nephrology following the patient - continue Bumex (8) Leg ulcer, left: Code(s): L97.929 - Non-pressure chronic ulcer of unspecified part of left lower leg with unspecified severity Status: Acute Assessment and Plan: Wound care has been consulted (9) CAD (coronary artery disease): Code(s): I25.10 - Atherosclerotic heart disease of n[place]ols[place] coronary artery without angina pectoris Status: Acute Assessment and Plan: Coronary artery disease, Lexiscan stress test was done on 01/26/2021 infarct involving apical lateral and mid to basal anterolateral inferior lateral segments of left ventricle, EF was 45% .-cardiology will be following the ibis
--- NOTE | 2021-02-15 14:48 | PM.PNNEP ---
Progress Note: A&P Assessment and Plan (1) Chronic kidney disease: Code(s): N18.9 - Chronic kidney disease, unspecified Status: Acute Assessment and Plan: unclear what true baseline creatinine is... on last admission, it had relatively stable around 3.0mg/dl it acutely krystle due to presumed renal hypoperfusion in the setting of an acute GI bleed by the time of discharge from [facility] in [place], his creatinine was down to 2.3mg/dl creatinine down to 1.9mg/dl on admission here -- however, this could be a dilutional value given his fluid overload renal biopsy on last hospitalization consistently mainly with diabetic nephropathy follow trend of kidney function with diuresis (2) Anasarca: Code(s): R60.1 - Generalized edema Status: Acute Assessment and Plan: partly related to nephrotic range proteinuria and nephrotic syndrome along with heart failure not opposed to trial of IV albumin continue IV diuretics but switched to IV bumex given his underlying CKD follow I/O's and exam (3) Acute respiratory failure: Qualifiers: Respiratory failure complication: unspecified whether with hypoxia or hypercapnia Qualified Code(s): J96.00 - Acute respiratory failure, unspecified whether with hypoxia or hypercapnia Code(s): J96.00 - Acute respiratory failure, unspecified whether with hypoxia or hypercapnia Status: Acute Assessment and Plan: due to volume overload and possible pneumonia BiPAP support PRN diuresis and antibiotics follow respiratory status (4) Combined congestive systolic and diastolic heart failure: Code(s): I50.40 - Unspecified combined systolic (congestive) and diastolic (congestive) heart failure Status: Acute Assessment and Plan: as noted by evaluation here on last hospitalization acute exacerbation noted on this admission complicated by noncompliance (no fluid restriction and unclear if he was on/taking diuretic therapy) follow I/Os, daily weights, and exam I worry this may be a recurring problem.... (5) Pneumonia: Code(s): J18.9 - Pneumonia, unspecified organism Status: Acute Assessment and Plan: as suggested by admission imaging follow cultures on antibiotics (6) Anemia: Code(s): D64.9 - Anemia, unspecified Status: Acute Assessment and Plan: likely related to CKD and recent GI bleed follow trend of H/H empirically dose with Epogen (7) Hypertension: Code(s): I10 - Essential (primary) hypertension Status: Acute Assessment and Plan: well controlled at this time follow trend of hemodynamics (8) Diabetes: Code(s): E11.9 - Type 2 diabetes mellitus without complications Status: Chronic Assessment and Plan: poor control at baseline follow accuchecks glycemic control Will continue to follow. Subjective Date/time seen: 02/15/21 14:48 Respiratory status seems to be doing much better at this time -- was on BiPAP yesterday and overnight; reasonable urine output with IV diuretics (switched to IV bumex); no other acute issues or problems to report; no events overnight or earlier this AM. Exam Narrative: Exam Narrative: General: WD/WN male in NAD Heart: normal S1 and S2; no rub Lungs: decreased breath sounds at bases Abdomen: soft, nontender, nondistended, positive bowel sounds Extremities: no cyanosis or clubbing; 1+ edema (UEs, LEs, abdomen) Skin: warm and dry Objective Data Vital Signs Vital Signs: Vital Signs Temp Pulse Resp BP Pulse Ox 02/15/21 14:08 75 31 H 97 02/15/21 14:00 69 25 H 127/72 99 02/15/21 13:57 67 29 H 99 02/15/21 13:55 67 28 H 02/15/21 12:00 36.9 C 66 29 H 118/74 99 02/15/21 11:39 67 29 H 98 02/15/21 10:00 74 26 H 119/68 100 02/15/21 09:27 83 23 H 02/15/21 09:20 80 23 H 02/15/21 08:25 74 26 H 99 02/15/21 08:00
--- NOTE | 2021-02-15 14:48 | P.PNNP_ITS ---
Progress Note: A&P Assessment and Plan (1) Chronic kidney disease: Code(s): N18.9 - Chronic kidney disease, unspecified Status: Acute Assessment and Plan: * unclear what true baseline creatinine is... * on last admission, it had relatively stable around 3.0mg/dl * it acutely krystle due to presumed renal hypoperfusion in the setting of an acute GI bleed * by the time of discharge from [facility] in [place], his creatinine was down to 2.3mg/dl * creatinine down to 1.9mg/dl on admission here -- however, this could be a dilutional value given his fluid overload * renal biopsy on last hospitalization consistently mainly with diabetic nephropathy * follow trend of kidney function with diuresis (2) Anasarca: Code(s): R60.1 - Generalized edema Status: Acute Assessment and Plan: * partly related to nephrotic range proteinuria and nephrotic syndrome along wi th heart failure * not opposed to trial of IV albumin * continue IV diuretics but switched to IV bumex given his underlying CKD * follow I/O's and exam (3) Acute respiratory failure: Qualifiers: Respiratory failure complication: unspecified whether with hypoxia or hypercapnia Qualified Code(s): J96.00 - Acute respiratory failure, unspecified whether with hypoxia or hypercapnia Code(s): J96.00 - Acute respiratory failure, unspecified whether with hypoxia or hypercapnia Status: Acute Assessment and Plan: * due to volume overload and possible pneumonia * BiPAP support PRN * diuresis and antibiotics * follow respiratory status (4) Combined congestive systolic and diastolic heart failure: Code(s): I50.40 - Unspecified combined systolic (congestive) and diastolic (congestive) heart failure Status: Acute Assessment and Plan: * as noted by evaluation here on last hospitalization * acute exacerbation noted on this admission * complicated by noncompliance (no fluid restriction and unclear if he was on/taking diuretic therapy) * follow I/Os, daily weights, and exam * I worry this may be a recurring problem.... (5) Pneumonia: Code(s): J18.9 - Pneumonia, unspecified organism Status: Acute Assessment and Plan: * as suggested by admission imaging * follow cultures * on antibiotics (6) Anemia: Code(s): D64.9 - Anemia, unspecified Status: Acute Assessment and Plan: * likely related to CKD and recent GI bleed * follow trend of H/H * empirically dose with Epogen (7) Hypertension: Code(s): I10 - Essential (primary) hypertension Status: Acute Assessment and Plan: * well controlled at this time * follow trend of hemodynamics (8) Diabetes: Code(s): E11.9 - Type 2 diabetes mellitus without complications Status: Chronic Assessment and Plan: * poor control at baseline * follow accuchecks * glycemic control Will continue to follow. Subjective Date/time seen: 02/15/21 14:48 Respiratory status seems to be doing much better at this time -- was on BiPAP yesterday and overnight; reasonable urine output with IV diuretics (switched to IV bumex); no other acute issues or problems to report; no events overnight or earlier this AM. Exam Narrative: Exam Narrative: General: WD/WN male in NAD Heart: normal S1 and S2; no rub Lungs: decreased breath sounds at bases Abdomen: soft, nontender, nondistended, positive bowel sounds Extremities: no cyanosis or clubbing; 1+ edema (UEs, LEs, abdo
[2021-02-15 15:29] LABS: Vancomycin Trough 17.8 ug/mL (10.0-20.0)
[2021-02-15 15:53] LABS: Glucose Point of Care 60 mg/dl (65-105)
[2021-02-15 17:21] LABS: Glucose Point of Care 68 mg/dl (65-105)
[2021-02-15] MEDS: EPOETIN ALFA-EPBX 20,000 UNITS/ML VIAL 20000 UNITS SUB-Q (17:39)
[2021-02-15] MEDS: metOLazone 5 MG TABLET PO (17:40)
[2021-02-15 18:54] LABS: Glucose Point of Care 99 mg/dl (65-105)
[2021-02-15 23:03] LABS: Glucose Point of Care 86 mg/dl (65-105)
[2021-02-15] MEDS: ACETAMINOPHEN 325 MG TABLET 650 MG PO (23:12)
[2021-02-16] VITALS (26 sets, daily range): BP systolic 128–146; BP diastolic 55–86; PULSE 59–94; RESP 20–37; TEMP 36.1–36.9; O2SAT 96–100
[2021-02-16] MEDS: IPRATROPIUM BR 0.02% INH SOLN 0.5 MG/2.5 ML VIAL INHALATION ×4 (01:15→20:13)
[2021-02-16] MEDS: ALBUTEROL SULFATE NEB 2.5 MG/0.5 ML INH INHALATION ×4 (01:15→20:13)
[2021-02-16 04:47] LABS: Hematocrit 24.1 % (42.0-52.0); Hemoglobin 7.5 g/dL (14.0-18.0); Mean Corpuscular HGB Conc 31.1 g/dl (32-36); Mean Corpuscular Hemoglobin 28.4 pg (26-34); Mean Corpuscular Volume 91.3 fl (80-100); Mean Platelet Volume 11.3 fl (7.4-10.4); Platelet Count Result 279 k/mm3 (150-375); Red Blood Count 2.64 M/mm3 (4.6-6.20); Red Cell Distribution Width 14.8 % (11.5-14.5); White Blood Count 6.1 K/mm3 (4.5-10.0)
[2021-02-16 04:56] LABS: Alanine Aminotransferase 22 U/L (4-50); Albumin Level 2.7 g/dL (3.5-5.1); Alkaline Phosphatase 313 U/L (38-126); Anion Gap 8 mmol/L (8-16); Aspartate Amino Transferase 35 U/L (17-59); Bilirubin,Total 0.3 mg/dL (0.2-1.3); Blood Urea Nitrogen 58 mg/dL (9-20); Calcium 8.3 mg/dL (8.4-10.2); Carbon Dioxide 21 mmol/L (22-30); Chloride 108 mmol/L (98-107); Estimated CRCL calculation 40 ml/min; Estimated Glomerular Filt Rate 29; Glucose 107 mg/dL (75-110); Magnesium 2.4 mg/dL (1.6-2.3); Phosphorus 5.1 mg/dL (2.5-4.5); Potassium 5.1 mmol/L (3.4-5.0); Sodium 137 mmol/L (137-145)
[2021-02-16 04:57] LABS: Alveolar/Arterial O2 Gradient 124.2 mmHg; Base Excess ABG -3.9 mEq/l (+/-2.0); Carboxyhemoglobin 0.3 % THb (0-2.0); Fractional Inspired Oxygen 35 %; HCO3 ABG 20.4 mEq/l (22.0-26.0); Methemoglobin ABG 0.5 %THb (0-1.5); Oxygen Content ABG 11.7 %vol (16.0-22.0); Oxygen Saturation ABG 96.6 % (95.0-100.0); Oxyhemoglobin 95.5 % THb (90.0-100.0); PCO2 ABG 33.9 mmHg (35.0-45.0); PO2 ABG 85.9 mmHg (80.0-100.0); PO2 FiO2 Ratio Arterial Blood 2.45 %; Reduced Hemoglobin 3.7 %THb (0-5.0); Total Hemoglobin 8.6 g/dL (12.0-18.0); pH ABG 7.398 (7.350-7.450)
[2021-02-16 04:59] LABS: Device NON-INVASIVE VENT; Modified Allen's Test Pass; Non-Invasive Expiratory Pressure 8 CMH2O; Non-Invasive Inspiratory Pressure 16 CMH2O; Non-Invasive Vent Rate 12 /MIN; Site Drawn LEFT RADIAL
[2021-02-16 05:40] LABS: Glucose Point of Care 93 mg/dl (65-105)
[2021-02-16] MEDS: BUMETANIDE INJ 2.5 MG/10 ML VIAL 2 MG IV PUSH ×2 (08:54→17:28)
[2021-02-16] MEDS: amLODIPine BESYLATE 5 MG TABLET 10 MG PO (08:55)
[2021-02-16] MEDS: METOPROLOL TARTRATE 50 MG TAB PO ×2 (08:55→20:13)
[2021-02-16] MEDS: ISOSORBIDE MONONITRATE 60 MG TAB.ER.24H PO (08:55)
--- NOTE | 2021-02-16 09:24 | WPDINTPN ---
Progress Note: A&P Assessment and Plan (1) Acute respiratory failure: Qualifiers: Respiratory failure complication: unspecified whether with hypoxia or hypercapnia Qualified Code(s): J96.00 - Acute respiratory failure, unspecified whether with hypoxia or hypercapnia Code(s): J96.00 - Acute respiratory failure, unspecified whether with hypoxia or hypercapnia Status: Acute Assessment and Plan: Patient presented with acute shortness of breath which has been worsening for several days -could be related to pneumonia, congestive heart failure/volume overload -patient alternates between BiPAP and Airvo. Oxygen saturations have been good. ABGs look good on 35% FiO2 - continue cefepime and vancomycin - continue diuresis - chest x-ray reviewed, no significant change in patchy bilateral airspace opacities -SARS-CoV-2 PCR PCR negative (2) Combined congestive systolic and diastolic heart failure: Code(s): I50.40 - Unspecified combined systolic (congestive) and diastolic (congestive) heart failure Status: Acute Assessment and Plan: Patient has a known history of systolic and diastolic heart failure -echocardiogram 01/22/2021 showed EF of 40-45%, grade 2 diastolic dysfunction, severe mitral valve regurgitation -continue diuresis, Imdur -cardiology to follow the patient (3) Suspected COVID-19 virus infection: Code(s): Z20.822 - Contact with and (suspected) exposure to COVID-19 Status: Acute Assessment and Plan: Patient bilateral diffuse infiltrates, SARS-CoV-2 PCR has been obtained is NEGATIVE -patient stated he has not received his COVID-19 vaccines (4) Community acquired pneumonia: Code(s): J18.9 - Pneumonia, unspecified organism Status: Acute Assessment and Plan: Bilateral diffuse infiltrat es on chest x-ray could be related to pulmonary edema and pneumonia -Continue patient on cefepime and vancomycin -nonproductive cough seems to have improved this morning -continue BiPAP - blood and urine cultures are negative from 02/13/2021 (5) Insulin dependent diabetes mellitus: Status: Chronic Assessment and Plan: -hemoglobin A1c was 10.9 on 01/23/2021 - patient has been hypoglycemic requiring D50 and glucagon since he received glipizide extended release on 02/14/2021 - sugars stable in the last 24 hours, hold glipizide and metformin - continue to monitor sugars closely - continue Accu-Cheks and sliding scale insulin (6) Anemia in chronic illness: Code(s): D63.8 - Anemia in other chronic diseases classified elsewhere Status: Acute Assessment and Plan: Patient with anemia of chronic disease, will monitor hemoglobin closely -transfuse if hemoglobin less than 7.0 (7) Acute renal insufficiency: Code(s): N28.9 - Disorder of kidney and ureter, unspecified Status: Acute Assessment and Plan: Acute on chronic kidney disease, likely related to hypertension, diabetes, vascular disease -patient was recently admitted to [facility] with acute kidney injury, proteinuria -nephrology was following the patient, left kidney ultrasound guided biopsy showed mesangial IgA deposits, nodular diabetic glomerulosclerosis class 3, acute tubular injury -patient being diuresed despite which he is not having adequate urine output. 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
[2021-02-16] MEDS: EPOETIN ALFA-EPBX 10,000 UNITS/ML VIAL 10000 UNITS SUB-Q (10:54)
[2021-02-16] MEDS: SILVERGEL (ELTA) 45 ML 1 APPLIC TOPICAL (10:54)
--- NOTE | 2021-02-16 11:54 | PM.IMPN ---
Progress Note: A&P Assessment and Plan (1) Acute respiratory failure: Qualifiers: Respiratory failure complication: unspecified whether with hypoxia or hypercapnia Qualified Code(s): J96.00 - Acute respiratory failure, unspecified whether with hypoxia or hypercapnia Code(s): J96.00 - Acute respiratory failure, unspecified whether with hypoxia or hypercapnia Status: Acute Assessment and Plan: BiPAP p.r.n. wean patient off oxygen as tolerated (2) Abnormal chest x-ray: Code(s): R93.89 - Abnormal findings on diagnostic imaging of other specified body structures Status: Acute Assessment and Plan: treat pneumonia, and CHF (3) Combined congestive systolic and diastolic heart failure: Code(s): I50.40 - Unspecified combined systolic (congestive) and diastolic (congestive) heart failure Status: Acute Assessment and Plan: Lasix prn (4) Insulin dependent diabetes mellitus: Status: Chronic Assessment and Plan: monitor blood sugar (5) Anemia in chronic illness: Code(s): D63.8 - Anemia in other chronic diseases classified elsewhere Status: Acute Assessment and Plan: Hemoglobin and hematocrit are stable and will be monitored. (6) Chronic kidney disease: Code(s): N18.9 - Chronic kidney disease, unspecified Status: Acute Assessment and Plan: Monitor closely while diuresing. Subjective Date/time seen: 02/16/21 11:54 Interval history: shortness of breath is better, patient on BiPAP Exam Const: General: cooperative and no acute distress HENMT: Head: normal to inspection Eyes: General: appearance normal, both eyes and all related structures Neck: Neck: normal visual inspection Chest: Chest palpation & inspection: normal inspection of the chest Resp: Effort & Inspection: normal respiratory effort Cardio: Jugular venous distension: no JVD Rate: regular rate GI: Inspection: normal to inspection and non-distended Extrem: Other: right below-knee amputation Objective Data Vital Signs Vital Signs: Vital Signs - 24 hr 02/15/21 12:00 02/15/21 13:55 02/15/21 13:57 Temperature 98.4 F Pulse Rate 66 67 67 Respiratory Rate 29 H 28 H 29 H Blood Pressure 118/74 Pulse Oximetry 99 99 02/15/21 14:00 02/15/21 14:08 02/15/21 16:00 Temperature 98.7 F Pulse Rate 69 75 77 Respiratory Rate 25 H 31 H 27 H Blood Pressure 127/72 117/70 Pulse Oximetry 99 97 99 02/15/21 16:52 02/15/21 18:00 02/15/21 19:21 Temperature Pulse Rate 71 80 78 Respiratory Rate 26 H 22 H 28 H Blood Pressure 141/74 H Pulse Oximetry 99 98 02/15/21 19:26 02/15/21 19:27 02/15/21 19:42 Temperature Pulse Rate 78 79 Respiratory Rate 27 H 25 H Blood Pressure Pulse Oximetry 98 99 02/15/21 20:00 02/15/21 20:12 02/15/21 22:00 Temperature 97.6 F Pulse Rate 85 86 82 Respiratory Rate 28 H 22 H Blood Pressure 118/59 L 94/68 L Pulse Oximetry 98 98 02/16/21 00:00 02/16/21 01:15 02/16/21 01:29 Temperature 97.8 F Pulse Rate 80 74 78 Respiratory Rate 27 H 29 H 28 H Blood Pressure 128/77 Pulse Oximetry 98 98 02/16/21 02:00 02/16/21 04:00 02/16/21 04:32 Temperature Pulse Rate 82 78 71 Respiratory Rate 26 H 28 H 25 H Blood Pressure 145/75 H 137/82 Pulse Oximetry 99 98 97 02/16/21 06:00 02/16/21 08:00 02/16/21 08:10 Temperature 97.0 F L Pulse Rate 76 78 75 Respiratory Rate 25 H 31 H 31 H Blood Pressure 134/84 146/81 H Pulse Oximetry 99 100 100 02/16/21 08:11 02/16/21 08:21 02/16/21 08:55 Temperature Pulse Rate 75 78 76 Respiratory Rate 31 H Blood Pressure Pulse Oximetry 02/16/21 10:00 02/16/21 10:30 Temperature Pulse Rate 65 59 L Respiratory Rate 25 H 24 H Blood Pressure 128/71 Pulse Oximetry 99 100 Intake/Output Intake/Output: Intake & Output 02/13/21 02/14/21 02/15/21 02/16/21 23:59 23:59 23:59 23:59 In
[2021-02-16 12:00] LABS: Glucose Point of Care 95 mg/dl (65-105)
--- NOTE | 2021-02-16 12:31 | PM.PNCARD ---
Progress Note: A&P Additional Plan Unfortunate 45-year-old man with: Ischemic LV systolic dysfunction on simple medical therapy. DEMARCUS-inhibitor/ARB are not included in the regimen because of renal insufficiency. There do not appear to be any new cardiac issues going on in the hospital at this time. We have no reason to repeat his noninvasive workup that was just completed in the hospital short time ago. Prognosis is obviously limited given his unfortunate comorbidities of renal failure and GI bleeding. Plans are made now for transfer to IMU which seems fine with me. Who continue to follow with him while he is in the hospital Blayne Quinonez MD [facility] Subjective Date/time seen: Date of service:02/16/21 12:31 Interval history: Follow-up visit in this 45-year-old man with: Recent evaluation in the hospital demonstrating noninvasive evidence of ischemic cardiomyopathy. Echo and stress test suggest evidence of previous infarction, no significant ischemic burden and simple medical therapy was this was recommended. Patient not felt to be a candidate for invasive evaluation because of GI bleeding and renal failure. Patient returned to the hospital on Tuesday evening last weekend with some shortness of breath. Pattern of infiltration multiple lung villarreal. Being treated for suspected pneumonia. Patient also has extensive peripheral disease status post right lower extremity amputation. He is watching television in the ICU and has no complaints currently. Exam Narrative: Exam Narrative: General: male increased work of breathing on BiPAP, tachypneic but no obvious distress, awake, alert, cooperative Head: atraumatic, normocephalic Eyes: EOM intact, sclerae anicteric, conjunctivae unremarkable Ears/Nose: external inspection of ears and nose were grossly normal Mouth/Throat: oral mucosa pink and moist, BiPAP in place, limited examination. Neck: supple, normal range of motion, no jugular venous distention or carotid bruits, thyroid nonpalpable, trachea midline. Cardiac: Regular rate and rhythm, normal S1-S2, Distant heart sounds, soft early systolic murmur.. Lungs: Diminished breath sounds, bibasilar crackles. Tachypneic. Abdomen: Distended mildly tender no rebound guarding or rigidity positive bowel sounds throughout. No appreciable hepatosplenomegaly, no rebound guarding or rigidity noted. Abdominal aorta nonpalpable, no appreciable bruits. Extremities: right BKA left lower extremity 3+ edema to the thighs sloughing of the skin with clear drainage reddened skin Skin: Warm and dry with exception of that above without ecchymoses, rashes, and/or petechiae. Musculoskeletal: Muscle strength and tone intact, right BKA. Vascular: Carotid upstrokes 2+ bilaterally, radial pulses 2+ bilaterally, dorsalis pedis pulses nonpalpable on left lower extremity, absent due to right BKA Neurologic: Cranial nerves 2-12 grossly intact, examination grossly nonfocal Pscyhiatric: Mood calm and appropriate. Objective Data Vital Signs Vital Signs: Vital Signs - 24 hr 02/15/21 13:55 02/15/21 13:57 02/15/21 14:00 Temperature Pulse Rate 67 67 69 Respiratory Rate 28 H 29 H 25 H Blood Pressure 127/72 Pulse Oximetry 99 99 02/15/21 14:08 02/15/21 16:00 02/15/21 16:52 Temperature 37.1 C Pulse Rate 75 77 71 Respiratory Rate 31 H 27 H 26 H Blood Pressure 117/70 Pulse Oximetry 97 99 99 02/15/21 18:00 02/15/21 19:21 02/15/21 19:26 Temperature Pulse Rate 80 78 78 Respiratory Rate 22 H 28 H 27 H Blood Pressure 141/74 H Pulse Oximetry 98 98 02/15/21 19:27 02/15/21 19:42 02/15/21 20:00 Temperature 36.4 C Pulse Rate 79 85 Respiratory Rate 25 H 28 H Blood Pressure 118/59 L Pulse Oximetry 99 98 02/15/21 20:12 02/15/21 22:00 02/16/21 00:00 Temperature 36.6 C Pulse Rate 86 82 80 Respiratory Rate 22 H 27 H Blood Pressure 94/68 L 128/77 Pu
--- NOTE | 2021-02-16 15:43 | P.PNNP_ITS ---
Progress Note: A&P Assessment and Plan (1) Chronic kidney disease: Code(s): N18.9 - Chronic kidney disease, unspecified Status: Chronic Assessment and Plan: * unclear what true baseline creatinine is... * on last admission, it had been relatively stable around 3.0mg/dl * it acutely krystle due to presumed renal hypoperfusion in the setting of an acute GI bleed * by the time of discharge from [facility] in [place], his creatinine was down to 2.3mg/dl * creatinine down to 1.9mg/dl on admission here -- however, this could be a dilutional value given his fluid overload * renal biopsy on last hospitalization consistently mainly with diabetic nephropathy * follow trend of kidney function with diuresis (2) Anasarca: Code(s): R60.1 - Generalized edema Status: Acute Assessment and Plan: * partly related to nephrotic range proteinuria and nephrotic syndrome along with heart failure * not opposed to trial of IV albumin * continue IV diuretics but switched to IV bumex given his underlying CKD * follow I/O's and exam (3) Acute respiratory failure: Qualifiers: Respiratory failure complication: unspecified whether with hypoxia or hypercapnia Qualified Code(s): J96.00 - Acute respiratory failure, unspecified whether with hypoxia or hypercapnia Code(s): J96.00 - Acute respiratory failure, unspecified whether with hypoxia or hypercapnia Status: Acute Assessment and Plan: * due to volume overload and possible pneumonia * BiPAP support PRN * diuresis and antibiotics * follow respiratory status (4) Combined congestive systolic and diastolic heart failure: Code(s): I50.40 - Unspecified combined systolic (congestive) and diastolic (congestive) heart failure Status: Acute Assessment and Plan: * as noted by evaluation here on last hospitalization * acute exacerbation noted on this admission * complicated by noncompliance (no fluid restriction and unclear if he was on/taking diuretic therapy) * follow I/Os, daily weights, and exam * I worry this may be a recurring problem.... (5) Pneumonia: Code(s): J18.9 - Pneumonia, unspecified organism Status: Acute Assessment and Plan: * as suggested by admission imaging * follow cultures * on antibiotics (6) Anemia: Code(s): D64.9 - Anemia, unspecified Status: Acute Assessment and Plan: * likely related to CKD and recent GI bleed * follow trend of H/H * empirically dose with Epogen (7) Hypertension: Code(s): I10 - Essential (primary) hypertension Status: Acute Assessment and Plan: * well controlled at this time * follow trend of hemodynamics (8) Diabetes: Code(s): E11.9 - Type 2 diabetes mellitus without complications Status: Chronic Assessment and Plan: * poor control at baseline * follow accuchecks * glycemic control Will continue to follow. Subjective Date/time seen: 02/16/21 15:43 Patient states that his breathing is stable if not better; reasonably diuresis at this time; only real complaint is that he wants to eat more food; Exam Narrative: Exam Narrative: General: WD/WN male in NAD Heart: normal S1 and S2; no rub Lungs: decreased breath sounds at bases Abdomen: soft, nontender, nondistended, positive bowel sounds Extremities: no cyanosis or clubbing; 1+ edema (UEs, LEs, abdomen) Skin: warm and dry Objective Data Vital Signs Vital Signs:
--- NOTE | 2021-02-16 15:43 | PM.PNNEP ---
Progress Note: A&P Assessment and Plan (1) Chronic kidney disease: Code(s): N18.9 - Chronic kidney disease, unspecified Status: Chronic Assessment and Plan: unclear what true baseline creatinine is... on last admission, it had been relatively stable around 3.0mg/dl it acutely krystle due to presumed renal hypoperfusion in the setting of an acute GI bleed by the time of discharge from [facility] in [place], his creatinine was down to 2.3mg/dl creatinine down to 1.9mg/dl on admission here -- however, this could be a dilutional value given his fluid overload renal biopsy on last hospitalization consistently mainly with diabetic nephropathy follow trend of kidney function with diuresis (2) Anasarca: Code(s): R60.1 - Generalized edema Status: Acute Assessment and Plan: partly related to nephrotic range proteinuria and nephrotic syndrome along with heart failure not opposed to trial of IV albumin continue IV diuretics but switched to IV bumex given his underlying CKD follow I/O's and exam (3) Acute respiratory failure: Qualifiers: Respiratory failure complication: unspecified whether with hypoxia or hypercapnia Qualified Code(s): J96.00 - Acute respiratory failure, unspecified whether with hypoxia or hypercapnia Code(s): J96.00 - Acute respiratory failure, unspecified whether with hypoxia or hypercapnia Status: Acute Assessment and Plan: due to volume overload and possible pneumonia BiPAP support PRN diuresis and antibiotics follow respiratory status (4) Combined congestive systolic and diastolic heart failure: Code(s): I50.40 - Unspecified combined systolic (congestive) and diastolic (congestive) heart failure Status: Acute Assessment and Plan: as noted by evaluation here on last hospitalization acute exacerbation noted on this admission complicated by noncompliance (no fluid restriction and unclear if he was on/taking diuretic therapy) follow I/Os, daily weights, and exam I worry this may be a recurring problem.... (5) Pneumonia: Code(s): J18.9 - Pneumonia, unspecified organism Status: Acute Assessment and Plan: as suggested by admission imaging follow cultures on antibiotics (6) Anemia: Code(s): D64.9 - Anemia, unspecified Status: Acute Assessment and Plan: likely related to CKD and recent GI bleed follow trend of H/H empirically dose with Epogen (7) Hypertension: Code(s): I10 - Essential (primary) hypertension Status: Acute Assessment and Plan: well controlled at this time follow trend of hemodynamics (8) Diabetes: Code(s): E11.9 - Type 2 diabetes mellitus without complications Status: Chronic Assessment and Plan: poor control at baseline follow accuchecks glycemic control Will continue to follow. Subjective Date/time seen: 02/16/21 15:43 Patient states that his breathing is stable if not better; reasonably diuresis at this time; only real complaint is that he wants to eat more food; Exam Narrative: Exam Narrative: General: WD/WN male in NAD Heart: normal S1 and S2; no rub Lungs: decreased breath sounds at bases Abdomen: soft, nontender, nondistended, positive bowel sounds Extremities: no cyanosis or clubbing; 1+ edema (UEs, LEs, abdomen) Skin: warm and dry Objective Data Vital Signs Vital Signs: Vital Signs Temp Pulse Resp BP Pulse Ox 02/16/21 14:00 67 02/16/21 13:39 69 22 H 02/16/21 13:29 70 27 H 99 02/16/21 12:00 36.2 C L 72 25 H 130/86 96 02/16/21 10:30 59 L 24 H 100 02/16/21 10:00 65 25 H 128/71 99 02/16/21 08:55 76 02/16/21 08:21 78 02/16/21 08:11 75 31 H 02/16/21 08:10 75 31 H 100 02/16/21 08:00 36.1 C L 78 31 H 146/81 H 100 02/16/21 06:00 76 25 H 134/84 99 02/16/21 04:32 71 25 H 97 02/16/21 04:0
--- NOTE | 2021-02-16 17:29 | WPDUROPN2 ---
Progress Note: A&P Assessment and Plan (1) Phimosis of penis: Code(s): N47.1 - Phimosis Status: Acute (2) Genital edema, male: Code(s): N50.89 - Other specified disorders of the male genital organs Status: Acute Assessment and Plan: Moderate genital edema indicative generalized fluid retention. Will plan to leave Ramirez catheter until he's significantly improved with other issues. Subjective Subjective Date/Time Seen: 02/16/21 17:29 Tolerating catheter well Review of Systems Review of Systems: ROS unobtainable: Yes unobtainable due to medical condition Exam GI: GI Palp: No Bladder palpation abnormal : Male General Exam: Yes edema (moderate generalized genital edema) Urinary Catheter: Urinary Catheter: patent and draining and urine clear Objective Data Vital Signs Vital Signs: Vital Signs - 24 hr 02/15/21 18:00 02/15/21 19:21 02/15/21 19:26 Temperature Pulse Rate 80 78 78 Respiratory Rate 22 H 28 H 27 H Blood Pressure 141/74 H Pulse Oximetry 98 98 02/15/21 19:27 02/15/21 19:42 02/15/21 20:00 Temperature 97.6 F Pulse Rate 79 85 Respiratory Rate 25 H 28 H Blood Pressure 118/59 L Pulse Oximetry 99 98 02/15/21 20:12 02/15/21 22:00 02/16/21 00:00 Temperature 97.8 F Pulse Rate 86 82 80 Respiratory Rate 22 H 27 H Blood Pressure 94/68 L 128/77 Pulse Oximetry 98 98 02/16/21 01:15 02/16/21 01:29 02/16/21 02:00 Temperature Pulse Rate 74 78 82 Respiratory Rate 29 H 28 H 26 H Blood Pressure 145/75 H Pulse Oximetry 98 99 02/16/21 04:00 02/16/21 04:32 02/16/21 06:00 Temperature Pulse Rate 78 71 76 Respiratory Rate 28 H 25 H 25 H Blood Pressure 137/82 134/84 Pulse Oximetry 98 97 99 02/16/21 08:00 02/16/21 08:10 02/16/21 08:11 Temperature 97.0 F L Pulse Rate 78 75 75 Respiratory Rate 31 H 31 H 31 H Blood Pressure 146/81 H Pulse Oximetry 100 100 02/16/21 08:21 02/16/21 08:55 02/16/21 10:00 Temperature Pulse Rate 78 76 65 Respiratory Rate 25 H Blood Pressure 128/71 Pulse Oximetry 99 02/16/21 10:30 02/16/21 12:00 02/16/21 13:29 Temperature 97.1 F L Pulse Rate 59 L 72 70 Respiratory Rate 24 H 25 H 27 H Blood Pressure 130/86 Pulse Oximetry 100 96 99 02/16/21 13:39 02/16/21 14:00 02/16/21 16:00 Temperature 97.6 F Pulse Rate 69 67 75 Respiratory Rate 22 H 20 Blood Pressure 130/73 Pulse Oximetry 100 02/16/21 16:28 Temperature Pulse Rate 77 Respiratory Rate 23 H Blood Pressure Pulse Oximetry 98 Intake/Output Intake/Output: Intake & Output 02/13/21 02/14/21 02/15/21 02/16/21 23:59 23:59 23:59 23:59 Intake Total 904 161 3024 1015 Output Total 212 972 4667 1225 Balance 50 0 350 -210 Meds/Results Medications: Active Medications Generic Name Dose Route Start Last Admin Trade Name Freq PRN Reason Stop Dose Admin Acetaminophen 650 mg 02/15/21 23:00 02/15/21 23:12 Acetaminophen 325 Mg Tablet PO 650 mg Q6H PRN Administration Mild Pain (1-3) or Fever Albuterol 2.5 mg 02/14/21 14:00 02/16/21 13:27 Albuterol Sulfate Neb 2.5 Mg/0.5 Ml Inh INHALATION 2.5 mg Q6HRT GEE Administration Amlodipine Besylate 10 mg 02/14/21 09:00 02/16/21 08:55 Amlodipine Besylate 5 Mg Tablet PO 10 mg DAILY GEE Administration Bumetanide 2 mg 02/16/21 08:00 02/16/21 17:28 Bumetanide Inj 2.5 Mg/10 Ml Vial IV PUSH 2 mg Q8H GEE Administration Dextrose 12.5 gm 02/13/21 23:42 02/15/21 06:51 Dextrose 50% 25 Gm/50 Ml Syringe IV PUSH 12.5 gm PRN PRN Administration Hypoglycemia Protocol Epoetin Brayan-epbx 10,000 units 02/16/21 10:00 02/16/21 10:54 Epoetin Brayan-Epbx 10,000 Units/Ml Vial SUB-Q 10,000 units MOWEFR GEE Administration Glucagon 1 mg 02/13/21 23:42 02/15/21 04:11 Glucagon For Inj 1 Mg Vial IM 1 mg PRN PRN Administration Hypoglycemia Protocol Glucose 15 gm 02/13/21 23:42 02/15/21
[2021-02-16 17:57] LABS: Glucose Point of Care 112 mg/dl (65-105)
[2021-02-17] VITALS (28 sets, daily range): BP systolic 126–156; BP diastolic 55–91; PULSE 70–98; RESP 18–28; TEMP 36.5–36.8; O2SAT 95–100
[2021-02-17] MEDS: BUMETANIDE INJ 2.5 MG/10 ML VIAL 2 MG IV PUSH ×4 (00:31→23:41)
[2021-02-17 00:36] LABS: Glucose Point of Care 145 mg/dl (65-105)
[2021-02-17] MEDS: IPRATROPIUM BR 0.02% INH SOLN 0.5 MG/2.5 ML VIAL INHALATION ×4 (01:56→20:56)
[2021-02-17] MEDS: ALBUTEROL SULFATE NEB 2.5 MG/0.5 ML INH INHALATION ×4 (01:56→20:56)
[2021-02-17 04:49] LABS: Hematocrit 26.9 % (42.0-52.0); Hemoglobin 8.3 g/dL (14.0-18.0); Mean Corpuscular HGB Conc 30.9 g/dl (32-36); Mean Corpuscular Hemoglobin 28.3 pg (26-34); Mean Corpuscular Volume 91.8 fl (80-100); Mean Platelet Volume 11.1 fl (7.4-10.4); Platelet Count Result 306 k/mm3 (150-375); Red Blood Count 2.93 M/mm3 (4.6-6.20); Red Cell Distribution Width 14.7 % (11.5-14.5); White Blood Count 5.8 K/mm3 (4.5-10.0)
[2021-02-17 04:54] LABS: Alveolar/Arterial O2 Gradient 113.2 mmHg; Carboxyhemoglobin 0.3 % THb (0-2.0); Fractional Inspired Oxygen 30 %; HCO3 ABG 24.9 mEq/l (22.0-26.0); Methemoglobin ABG 0.5 %THb (0-1.5); Oxygen Content ABG 11.5 %vol (16.0-22.0); Oxyhemoglobin 86.4 % THb (90.0-100.0); PCO2 ABG 41.4 mmHg (35.0-45.0); PO2 ABG 52.1 mmHg (80.0-100.0); PO2 FiO2 Ratio Arterial Blood 1.74 %; Reduced Hemoglobin 12.8 %THb (0-5.0); Total Hemoglobin 9.4 g/dL (12.0-18.0); pH ABG 7.397 (7.350-7.450)
[2021-02-17 04:56] LABS: Device NON-INVASIVE VENT; Modified Allen's Test Unable to perform; Oxygen Saturation ABG 86.8 % (95.0-100.0); Site Drawn RIGHT RADIAL
[2021-02-17 04:57] LABS: Non-Invasive Expiratory Pressure 8 CMH2O; Non-Invasive Inspiratory Pressure 16 CMH2O; Non-Invasive Vent Rate 12 /MIN
[2021-02-17 05:00] LABS: Alanine Aminotransferase 21 U/L (4-50); Albumin Level 2.9 g/dL (3.5-5.1); Alkaline Phosphatase 338 U/L (38-126); Anion Gap 7 mmol/L (8-16); Aspartate Amino Transferase 29 U/L (17-59); Bilirubin,Total 0.3 mg/dL (0.2-1.3); Blood Urea Nitrogen 55 mg/dL (9-20); Calcium 8.6 mg/dL (8.4-10.2); Carbon Dioxide 24 mmol/L (22-30); Chloride 107 mmol/L (98-107); Estimated CRCL calculation 40 ml/min; Estimated Glomerular Filt Rate 29; Glucose 146 mg/dL (75-110); Magnesium 2.3 mg/dL (1.6-2.3); Phosphorus 5.2 mg/dL (2.5-4.5); Potassium 5.1 mmol/L (3.4-5.0); Sodium 138 mmol/L (137-145)
--- NOTE | 2021-02-17 06:58 | WPDUROPN2 ---
Progress Note: A&P Assessment and Plan (1) Genital edema, male: Code(s): N50.89 - Other specified disorders of the male genital organs Status: Acute Assessment and Plan: Worsening edema c/w generalized edema. Catheter draining well. Subjective Subjective Date/Time Seen: 02/17/21 06:58 No complaints Review of Systems Review of Systems: ROS unobtainable: Yes other Exam : Male General Exam: Yes edema (worsening) Urinary Catheter: Urinary Catheter: patent and draining and urine clear Objective Data Vital Signs Vital Signs: Vital Signs - 24 hr 02/16/21 08:00 02/16/21 08:10 02/16/21 08:11 Temperature 97.0 F L Pulse Rate 78 75 75 Respiratory Rate 31 H 31 H 31 H Blood Pressure 146/81 H Pulse Oximetry 100 100 02/16/21 08:21 02/16/21 08:55 02/16/21 10:00 Temperature Pulse Rate 78 76 65 Respiratory Rate 25 H Blood Pressure 128/71 Pulse Oximetry 99 02/16/21 10:30 02/16/21 12:00 02/16/21 13:29 Temperature 97.1 F L Pulse Rate 59 L 72 70 Respiratory Rate 24 H 25 H 27 H Blood Pressure 130/86 Pulse Oximetry 100 96 99 02/16/21 13:39 02/16/21 14:00 02/16/21 16:00 Temperature 97.6 F Pulse Rate 69 67 75 Respiratory Rate 22 H 20 Blood Pressure 130/73 Pulse Oximetry 100 02/16/21 16:28 02/16/21 18:00 02/16/21 20:00 Temperature 98.5 F Pulse Rate 77 91 85 Respiratory Rate 23 H 22 H Blood Pressure 134/55 L Pulse Oximetry 98 98 02/16/21 20:13 02/16/21 20:14 02/16/21 20:21 Temperature Pulse Rate 85 86 86 Respiratory Rate 37 H 33 H Blood Pressure Pulse Oximetry 98 02/16/21 22:00 02/17/21 00:00 02/17/21 01:25 Temperature Pulse Rate 94 74 78 Respiratory Rate 20 28 H Blood Pressure 146/76 H Pulse Oximetry 100 99 02/17/21 01:56 02/17/21 02:00 02/17/21 02:05 Temperature Pulse Rate 83 98 83 Respiratory Rate 26 H 27 H Blood Pressure Pulse Oximetry 02/17/21 02:07 02/17/21 04:00 02/17/21 06:00 Temperature 98.3 F Pulse Rate 83 79 74 Respiratory Rate 28 H 22 H Blood Pressure 126/55 L Pulse Oximetry 99 97 Intake/Output Intake/Output: Intake & Output 02/14/21 02/15/21 02/16/21 02/17/21 23:59 23:59 23:59 23:59 Intake Total 600 1550 1579 200 Output Total 600 1200 2725 3000 Balance 0 679 -8082 -3194 Meds/Results Medications: Active Medications Generic Name Dose Route Start Last Admin Trade Name Freq PRN Reason Stop Dose Admin Acetaminophen 650 mg 02/15/21 23:00 02/15/21 23:12 Acetaminophen 325 Mg Tablet PO 650 mg Q6H PRN Administration Mild Pain (1-3) or Fever Albuterol 2.5 mg 02/14/21 14:00 02/17/21 01:56 Albuterol Sulfate Neb 2.5 Mg/0.5 Ml Inh INHALATION 2.5 mg Q6HRT GEE Administration Amlodipine Besylate 10 mg 02/14/21 09:00 02/16/21 08:55 Amlodipine Besylate 5 Mg Tablet PO 10 mg DAILY GEE Administration Bumetanide 2 mg 02/16/21 08:00 02/17/21 00:31 Bumetanide Inj 2.5 Mg/10 Ml Vial IV PUSH 2 mg Q8H GEE Administration Dextrose 12.5 gm 02/13/21 23:42 02/15/21 06:51 Dextrose 50% 25 Gm/50 Ml Syringe IV PUSH 12.5 gm PRN PRN Administration Hypoglycemia Protocol Epoetin Brayan-epbx 10,000 units 02/16/21 10:00 02/16/21 10:54 Epoetin Brayan-Epbx 10,000 Units/Ml Vial SUB-Q 10,000 units MOWEFR GEE Administration Glucagon 1 mg 02/13/21 23:42 02/15/21 04:11 Glucagon For Inj 1 Mg Vial IM 1 mg PRN PRN Administration Hypoglycemia Protocol Glucose 15 gm 02/13/21 23:42 02/15/21 12:12 Glucose Oral Gel 15 Gm Of Glucse In 37.5 Gm Tube PO 15 gm PRN PRN Administration Hypoglycemia Protocol Dextrose 1,000 mls @ 100 mls/hr 02/13/21 23:42 Dextrose 5% 1,000 Ml IVPB PRN PRN Hypoglycemia Protocol Vancomycin HCl 1,250 mg in 250 mls @ 200 mls/hr 02/16/21 03:00 02/16/21 07:27 Vancomycin 1,250 Mg/D5w 250 Ml IVPB Infused Q36H GEE Infusion Cefepime HCl 2
[2021-02-17 08:33] LABS: Glucose Point of Care 135 mg/dl (65-105)
[2021-02-17] MEDS: ISOSORBIDE MONONITRATE 60 MG TAB.ER.24H PO (08:58)
[2021-02-17] MEDS: amLODIPine BESYLATE 5 MG TABLET 10 MG PO (08:58)
[2021-02-17] MEDS: METOPROLOL TARTRATE 50 MG TAB PO ×2 (08:58→20:10)
[2021-02-17] MEDS: SILVERGEL (ELTA) 45 ML 1 APPLIC TOPICAL (08:59)
--- NOTE | 2021-02-17 10:18 | PM.PNCARD ---
Progress Note: A&P Assessment and Plan (1) CHF (congestive heart failure): Code(s): I50.9 - Heart failure, unspecified <DAVONTE Scott - Last Filed: 02/17/21 10:35> Status: Acute <DAVONTE Scott - Last Filed: 02/17/21 10:35> Assessment and Plan: Acute decompensated heart failure secondary to patient's admission to noncompliance with medical therapy, LV dysfunction, acute renal failure. EF 40-45%. Possible underlying CAD given abnormal stress test with area of large severe infarct extending from the apical lateral and mid to basal anterolateral and inferolateral segments. -Continue diuresis as tolerated -No DEMARCUS/ARB for now -Monitor renal function (nephrology following) <DAVONTE Scott - Last Filed: 02/17/21 10:35> (2) Acute respiratory failure: Qualifiers: Respiratory failure complication: unspecified whether with hypoxia or hypercapnia Qualified Code(s): J96.00 - Acute respiratory failure, unspecified whether with hypoxia or hypercapnia <DAVONTE Scott - Last Filed: 02/17/21 10:35> Code(s): J96.00 - Acute respiratory failure, unspecified whether with hypoxia or hypercapnia <DAVONTE Scott - Last Filed: 02/17/21 10:35> Status: Acute <DAVONTE Scott - Last Filed: 02/17/21 10:35> Assessment and Plan: Continue noninvasive positive pressure ventilation per Critical Care. Wean as tolerated. Continue diuresis, IV antibiotics. <DAVONTE Scott - Last Filed: 02/17/21 10:35> (3) Acute respiratory failure with hypoxia: Code(s): J96.01 - Acute respiratory failure with hypoxia <DAVONTE Scott - Last Filed: 02/17/21 10:35> Status: Acute <DAVONTE Scott - Last Filed: 02/17/21 10:35> Assessment and Plan: As above. <DAVONTE Scott - Last Filed: 02/17/21 10:35> (4) Noncompliance: Code(s): Z91.19 - Patient's noncompliance with other medical treatment and regimen <DAVONTE Scott - Last Filed: 02/17/21 10:35> Status: Acute <DAVONTE Scott - Last Filed: 02/17/21 10:35> Assessment and Plan: Very likely a significant contributor to patient's repeat acute hospitalization. Patient is aware. <ANGEL ScottC - Last Filed: 02/17/21 10:35> (5) GLENN (acute kidney injury): Code(s): N17.9 - Acute kidney failure, unspecified <DAVONTE Scott - Last Filed: 02/17/21 10:35> Status: Acute <DAVONTE Scott - Last Filed: 02/17/21 10:35> Assessment and Plan: Acute on chronic renal failure. Nephrology following. Biopsy results as noted above in HPI. <DAVONTE Scott - Last Filed: 02/17/21 10:35> (6) Anemia, iron deficiency: Code(s): D50.9 - Iron deficiency anemia, unspecified <DAVONTE Scott - Last Filed: 02/17/21 10:35> Status: Acute <DAVONTE Scott - Last Filed: 02/17/21 10:35> Assessment and Plan: Follow H&H, stable although significantly anemic. Patient remains a poor candidate for antiplatelet therapy. <DAVONTE Scott - Last Filed: 02/17/21 10:35> (7) Insulin dependent diabetes mellitus: Status: Chronic <DAVONTE Scott - Last Filed: 02/17/21 10:35> Assessment and Plan: Per primary service. <DAVONTE Scott - Last Filed: 02/17/21 10:35> (8) Suspected COVID-19 virus infection: Code(s): Z20.822 - Contact with and (suspected) exposure to COVID-19 <DAVONTE Scott - Last Filed: 02/17/21 10:35> Status: Acute <DAVONTE Scott - Last Filed: 02/17/21 10:35> Assessment and Plan: Remains on isolation. <DAVONTE Scott - Last Filed: 02/17/21 10:35> Additional Plan I personally saw and evaluated the patient. I reviewed Helena Gonzalez's note and agree with findings and plan of care as documented in
--- NOTE | 2021-02-17 12:14 | PM.IMPN ---
Progress Note: A&P Assessment and Plan (1) Acute respiratory failure: Qualifiers: Respiratory failure complication: unspecified whether with hypoxia or hypercapnia Qualified Code(s): J96.00 - Acute respiratory failure, unspecified whether with hypoxia or hypercapnia Code(s): J96.00 - Acute respiratory failure, unspecified whether with hypoxia or hypercapnia Status: Acute Assessment and Plan: BiPAP p.r.n. wean patient off oxygen as tolerated, continue current tube (2) Abnormal chest x-ray: Code(s): R93.89 - Abnormal findings on diagnostic imaging of other specified body structures Status: Acute Assessment and Plan: treat pneumonia, and CHF continue with IV antibiotics (3) Combined congestive systolic and diastolic heart failure: Code(s): I50.40 - Unspecified combined systolic (congestive) and diastolic (congestive) heart failure Status: Acute Assessment and Plan: Lasix prn consult noted. Continue current treatment (4) Insulin dependent diabetes mellitus: Status: Chronic Assessment and Plan: monitor blood sugar (5) Anemia in chronic illness: Code(s): D63.8 - Anemia in other chronic diseases classified elsewhere Status: Acute Assessment and Plan: Hemoglobin and hematocrit are stable and will be monitored. (6) Chronic kidney disease: Code(s): N18.9 - Chronic kidney disease, unspecified Status: Chronic Assessment and Plan: Monitor closely while diuresing. Additional Plan will continue with IV antibiotics. Monitor culture, x-ray and electrolytes. Subjective Date/time seen: 02/17/21 12:14 Patient was seen during the morning rounds today. Patient is feeling slightly better. Decreased shortness of breath. No chest pain. No abdominal pain, no nausea, no vomiting. Mood stable Review of Systems Review of Systems: All systems reviewed & are unremarkable except as noted in HPI and below ( the history and physical exam.) Exam Const: General: cooperative and no acute distress HENMT: Head: normal to inspection Eyes: General: appearance normal, both eyes and all related structures Neck: Neck: normal visual inspection Chest: Chest palpation & inspection: normal inspection of the chest Resp: Effort & Inspection: normal respiratory effort Cardio: Jugular venous distension: no JVD Rate: regular rate GI: Inspection: normal to inspection and non-distended Extrem: Other: right below-knee amputation Objective Data Vital Signs Vital Signs: Vital Signs - 24 hr 02/16/21 13:29 02/16/21 13:39 02/16/21 14:00 Temperature Pulse Rate 70 69 67 Respiratory Rate 27 H 22 H Blood Pressure Pulse Oximetry 99 02/16/21 16:00 02/16/21 16:28 02/16/21 18:00 Temperature 36.4 C Pulse Rate 75 77 91 Respiratory Rate 20 23 H Blood Pressure 130/73 Pulse Oximetry 100 98 02/16/21 20:00 02/16/21 20:13 02/16/21 20:14 Temperature 36.9 C Pulse Rate 85 85 86 Respiratory Rate 22 H 37 H Blood Pressure 134/55 L Pulse Oximetry 98 02/16/21 20:21 02/16/21 22:00 02/17/21 00:00 Temperature Pulse Rate 86 94 74 Respiratory Rate 33 H 20 Blood Pressure 146/76 H Pulse Oximetry 98 100 02/17/21 01:25 02/17/21 01:56 02/17/21 02:00 Temperature Pulse Rate 78 83 98 Respiratory Rate 28 H 26 H Blood Pressure Pulse Oximetry 99 02/17/21 02:05 02/17/21 02:07 02/17/21 04:00 Temperature 36.8 C Pulse Rate 83 83 79 Respiratory Rate 27 H 28 H 22 H Blood Pressure 126/55 L Pulse Oximetry 99 97 02/17/21 06:00 02/17/21 08:00 02/17/21 08:17 Temperature 36.8 C Pulse Rate 74 80 95 Respiratory Rate 24 H 26 H Blood Pressure 156/79 H Pulse Oximetry 95 02/17/21 08:26 02/17/21 08:36 02/17/21 08:58 Temperature Pulse Rate 86 88 Respiratory Rate 26 H Blood Pressure Pulse Oximetry 96 02/17/21 10:00 Temperature
[2021-02-17 12:43] LABS: Glucose Point of Care 168 mg/dl (65-105)
[2021-02-17] MEDS: ACETAMINOPHEN 325 MG TABLET 650 MG PO (14:33)
[2021-02-17 14:54] LABS: Vancomycin Trough 18.2 ug/mL (10.0-20.0)
--- NOTE | 2021-02-17 15:25 | P.PNNP_ITS ---
Progress Note: A&P Assessment and Plan (1) Chronic kidney disease: Code(s): N18.9 - Chronic kidney disease, unspecified Status: Chronic Assessment and Plan: * unclear what true baseline creatinine is... * on last admission, it had been relatively stable around 3.0mg/dl * it acutely krystle due to presumed renal hypoperfusion in the setting of an acute GI bleed * by the time of discharge from [facility] in [place], his creatinine was down to 2.3mg/dl * creatinine down to 1.9mg/dl on admission here -- however, this could be a dilutional value given his fluid overload * renal biopsy on last hospitalization consistently mainly with diabetic nephropathy * follow trend of kidney function with diuresis (2) Anasarca: Code(s): R60.1 - Generalized edema Status: Acute Assessment and Plan: * partly related to nephrotic range proteinuria and nephrotic syndrome along with heart failure * s/p trial of IV albumin * continue IV diuretics but switched to IV bumex given his underlying CKD * follow I/O's and exam (3) Acute respiratory failure: Qualifiers: Respiratory failure complication: unspecified whether with hypoxia or hypercapnia Qualified Code(s): J96.00 - Acute respiratory failure, unspecified whether with hypoxia or hypercapnia Code(s): J96.00 - Acute respiratory failure, unspecified whether with hypoxia or hypercapnia Status: Acute Assessment and Plan: * due to volume overload and possible pneumonia * BiPAP support PRN * diuresis and antibiotics * follow respiratory status (4) Combined congestive systolic and diastolic heart failure: Code(s): I50.40 - Unspecified combined systolic (congestive) and diastolic (congestive) heart failure Status: Acute Assessment and Plan: * as noted by evaluation here on last hospitalization * acute exacerbation noted on this admission * complicated by noncompliance (no fluid restriction and unclear if he was on/taking diuretic therapy) * follow I/Os, daily weights, and exam * I worry this may be a recurring problem.... (5) Pneumonia: Code(s): J18.9 - Pneumonia, unspecified organism Status: Acute Assessment and Plan: * as suggested by admission imaging * follow cultures * on antibiotics (6) Anemia: Code(s): D64.9 - Anemia, unspecified Status: Acute Assessment and Plan: * likely related to CKD and recent GI bleed * follow trend of H/H * empirically dose with Epogen (7) Hypertension: Code(s): I10 - Essential (primary) hypertension Status: Acute Assessment and Plan: * well controlled at this time * follow trend of hemodynamics (8) Diabetes: Code(s): E11.9 - Type 2 diabetes mellitus without complications Status: Chronic Assessment and Plan: * poor control at baseline * follow accuchecks * glycemic control Will continue to follow. Subjective Date/time seen: 02/17/21 15:25 State his breathing and respiratory status is doing better but still requiring oxygen as well as BiPAP therapy to maintain stability/comfort at this time; responding to diuretic therapy; no apparent distress. Exam Narrative: Exam Narrative: General: WD/WN male in NAD Heart: normal S1 and S2; no rub Lungs: decreased breath sounds at bases Abdomen: soft, nontender, nondistended, positive bowel sounds Extremities: no cyanosis or clubbing; 1+ edema (UEs, LEs, abdomen) Skin: warm and intact
--- NOTE | 2021-02-17 15:25 | PM.PNNEP ---
Progress Note: A&P Assessment and Plan (1) Chronic kidney disease: Code(s): N18.9 - Chronic kidney disease, unspecified Status: Chronic Assessment and Plan: unclear what true baseline creatinine is... on last admission, it had been relatively stable around 3.0mg/dl it acutely krystle due to presumed renal hypoperfusion in the setting of an acute GI bleed by the time of discharge from [facility] in [place], his creatinine was down to 2.3mg/dl creatinine down to 1.9mg/dl on admission here -- however, this could be a dilutional value given his fluid overload renal biopsy on last hospitalization consistently mainly with diabetic nephropathy follow trend of kidney function with diuresis (2) Anasarca: Code(s): R60.1 - Generalized edema Status: Acute Assessment and Plan: partly related to nephrotic range proteinuria and nephrotic syndrome along with heart failure s/p trial of IV albumin continue IV diuretics but switched to IV bumex given his underlying CKD follow I/O's and exam (3) Acute respiratory failure: Qualifiers: Respiratory failure complication: unspecified whether with hypoxia or hypercapnia Qualified Code(s): J96.00 - Acute respiratory failure, unspecified whether with hypoxia or hypercapnia Code(s): J96.00 - Acute respiratory failure, unspecified whether with hypoxia or hypercapnia Status: Acute Assessment and Plan: due to volume overload and possible pneumonia BiPAP support PRN diuresis and antibiotics follow respiratory status (4) Combined congestive systolic and diastolic heart failure: Code(s): I50.40 - Unspecified combined systolic (congestive) and diastolic (congestive) heart failure Status: Acute Assessment and Plan: as noted by evaluation here on last hospitalization acute exacerbation noted on this admission complicated by noncompliance (no fluid restriction and unclear if he was on/taking diuretic therapy) follow I/Os, daily weights, and exam I worry this may be a recurring problem.... (5) Pneumonia: Code(s): J18.9 - Pneumonia, unspecified organism Status: Acute Assessment and Plan: as suggested by admission imaging follow cultures on antibiotics (6) Anemia: Code(s): D64.9 - Anemia, unspecified Status: Acute Assessment and Plan: likely related to CKD and recent GI bleed follow trend of H/H empirically dose with Epogen (7) Hypertension: Code(s): I10 - Essential (primary) hypertension Status: Acute Assessment and Plan: well controlled at this time follow trend of hemodynamics (8) Diabetes: Code(s): E11.9 - Type 2 diabetes mellitus without complications Status: Chronic Assessment and Plan: poor control at baseline follow accuchecks glycemic control Will continue to follow. Subjective Date/time seen: 02/17/21 15:25 State his breathing and respiratory status is doing better but still requiring oxygen as well as BiPAP therapy to maintain stability/comfort at this time; responding to diuretic therapy; no apparent distress. Exam Narrative: Exam Narrative: General: WD/WN male in NAD Heart: normal S1 and S2; no rub Lungs: decreased breath sounds at bases Abdomen: soft, nontender, nondistended, positive bowel sounds Extremities: no cyanosis or clubbing; 1+ edema (UEs, LEs, abdomen) Skin: warm and intact Objective Data Vital Signs Vital Signs: Vital Signs Temp Pulse Resp BP Pulse Ox 02/17/21 21:03 87 22 H 02/17/21 20:58 96 02/17/21 20:56 86 22 H 02/17/21 20:10 90 02/17/21 20:00 36.7 C 85 20 140/83 95 02/17/21 18:00 83 98 02/17/21 16:57 98 02/17/21 16:00 36.5 C 84 18 144/79 H 95 02/17/21 14:34 87 28 H 02/17/21 14:28 86 20 96 02/17/21 14:00 89 02/17/21 12:00 36.6 C 70 20 154/91 H 97 02/17/21 10:00 73
[2021-02-17] MEDS: INSULIN ASPART (*BKC) 100 UNITS/ML SUB-Q (16:21)
[2021-02-17 16:29] LABS: Glucose Point of Care 201 mg/dl (65-105)
[2021-02-17 16:29] LABS: Glucose Point of Care 207 mg/dl (65-105)
[2021-02-18] VITALS (25 sets, daily range): BP systolic 130–169; BP diastolic 72–90; PULSE 71–102; RESP 14–32; TEMP 36.7–36.9; O2SAT 93–100
--- NOTE | 2021-02-18 00:04 | PC.NURSE ---
Pt called RN in to room with c/o SOB and pleuritic pain. 02 sats were maintaining in the 90's at this time but pt was noted to have an increased work of breathing as well as a high resp rate into the 40's. Pt tripoding with open mouth breathing. Bipap placed. Pt states relief of pain and resp rate recovered to 20's. 02 sats maintained in 90's during entire event. Will leave BIPAP on tonight.
--- NOTE | 2021-02-18 03:59 | ECG_ITS ---
Measurements Intervals [place] Rate: 87 P: 23 W[place]: 136 QRS: -4 QRSD: 93 T: 66 QT: 347 QTc: 420 Interpretive Statements SINUS RHYTHM NONSPECIFIC ST & T-WAVE ABNORMALITY- LAT/HIGH LAT LEADS BASELINE ARTIFACT- I, II, V4-V6 BORDERLINE ECG Electronically Signed On 02-18-2021 8:28:51 CDT by Reji Dasilva D.O.
[2021-02-18 04:36] LABS: Hematocrit 31.6 % (42.0-52.0); Hemoglobin 9.6 g/dL (14.0-18.0); Mean Corpuscular HGB Conc 30.4 g/dl (32-36); Mean Corpuscular Hemoglobin 27.8 pg (26-34); Mean Corpuscular Volume 91.6 fl (80-100); Mean Platelet Volume 10.9 fl (7.4-10.4); Platelet Count Result 327 k/mm3 (150-375); Red Blood Count 3.45 M/mm3 (4.6-6.20); Red Cell Distribution Width 14.6 % (11.5-14.5); White Blood Count 9.4 K/mm3 (4.5-10.0)
[2021-02-18 04:48] LABS: Alanine Aminotransferase 22 U/L (4-50); Albumin Level 3.2 g/dL (3.5-5.1); Alkaline Phosphatase 407 U/L (38-126); Anion Gap 6 mmol/L (8-16); Aspartate Amino Transferase 27 U/L (17-59); Bilirubin,Total 0.4 mg/dL (0.2-1.3); Blood Urea Nitrogen 53 mg/dL (9-20); Calcium 8.8 mg/dL (8.4-10.2); Carbon Dioxide 28 mmol/L (22-30); Chloride 107 mmol/L (98-107); Estimated CRCL calculation 42 ml/min; Estimated Glomerular Filt Rate 31; Glucose 262 mg/dL (75-110); Magnesium 2.1 mg/dL (1.6-2.3); Potassium 4.9 mmol/L (3.4-5.0); Sodium 141 mmol/L (137-145)
[2021-02-18 04:57] LABS: Troponin I 0.013 ng/mL (0.000-0.034)
--- NOTE | 2021-02-18 05:42 | PC.NURSE ---
Pt states he has chest pain. Unable to obtain detailed description due to language barriers and pt not wanting to use [employer] driver services. obtained ekg and trop. both WNL. Hospitalist called and made aware. Pt states he feels he is going to . Pt becoming anxious and restless. Attempted to call family but no answer and no voicemail was set up at this time
[2021-02-18 05:53] LABS: Base Excess ABG 2.9 mEq/l (+/-2.0); Fractional Inspired Oxygen 30 %; HCO3 ABG 27.3 mEq/l (22.0-26.0); Oxygen Content ABG 13.1 %vol (16.0-22.0); Oxygen Saturation ABG 92.5 % (95.0-100.0); PCO2 ABG 40.9 mmHg (35.0-45.0); PO2 ABG 61.8 mmHg (80.0-100.0); PO2 FiO2 Ratio Arterial Blood 2.06 %; Total Hemoglobin 10.2 g/dL (12.0-18.0); pH ABG 7.442 (7.350-7.450)
[2021-02-18 05:54] LABS: Device NON-INVASIVE VENT; Modified Allen's Test Pass; Site Drawn RIGHT RADIAL
[2021-02-18 05:55] LABS: Non-Invasive Expiratory Pressure 8 CMH2O; Non-Invasive Inspiratory Pressure 16 CMH2O; Non-Invasive Vent Rate 12 /MIN
--- NOTE | 2021-02-18 06:08 | PC.NURSE ---
Pt did consent to insurance agents supervisor use and described the pain as 6-7 out of to and as soreness that starts in the middle and radiates to the heart . Pt continues to express fear that he is dying and we are not telling him. Via insurance agents supervisor explained that he is not dying and has infection/inflammation in the lungs that is causing his chest pain. We have assessed him for chest pain and it has come back negative. He is not having a heart attack. Explained to pt that we can not reach his family at the number listed. Pt states there is no other number to call. explained that we will continue to call.
[2021-02-18] MEDS: NITROGLYCERIN SL 0.4 MG TABLET (06:19)
[2021-02-18] MEDS: ACETAMINOPHEN 325 MG TABLET 650 MG PO (06:19)
--- NOTE | 2021-02-18 06:28 | PC.NURSE ---
Pt states CP with no relief after 1st nitro. Given second nitro. with no relief as well. BP assessed at 160's systolic at this time. Attempted to reach family [phone]. No one answered and there is no way to leave voice mail.
--- NOTE | 2021-02-18 08:16 | PM.PNCARD ---
Progress Note: A&P Assessment and Plan (1) CHF (congestive heart failure): Code(s): I50.9 - Heart failure, unspecified Status: Acute Assessment and Plan: Acute decompensated heart failure secondary to patient's admission to noncompliance with medical therapy, LV dysfunction, acute renal failure. EF 40-45%. Possible underlying CAD given abnormal stress test with area of large severe infarct extending from the apical lateral and mid to basal anterolateral and inferolateral segments. -Continue diuresis as tolerated -No DEMARCUS/ARB for now -Monitor renal function (nephrology following) (2) Acute respiratory failure: Qualifiers: Respiratory failure complication: unspecified whether with hypoxia or hypercapnia Qualified Code(s): J96.00 - Acute respiratory failure, unspecified whether with hypoxia or hypercapnia Code(s): J96.00 - Acute respiratory failure, unspecified whether with hypoxia or hypercapnia Status: Acute Assessment and Plan: On O2 per nasal cannula. Continue diuresis, IV antibiotics. (3) Acute respiratory failure with hypoxia: Code(s): J96.01 - Acute respiratory failure with hypoxia Status: Acute Assessment and Plan: As above. (4) Noncompliance: Code(s): Z91.19 - Patient's noncompliance with other medical treatment and regimen Status: Acute Assessment and Plan: Very likely a significant contributor to patient's repeat acute hospitalization. Patient is aware. (5) GLENN (acute kidney injury): Code(s): N17.9 - Acute kidney failure, unspecified Status: Acute Assessment and Plan: Acute on chronic renal failure. Nephrology following. (6) Anemia, iron deficiency: Code(s): D50.9 - Iron deficiency anemia, unspecified Status: Acute Assessment and Plan: Follow H&H, stable. Patient remains a poor candidate for antiplatelet therapy. (7) Insulin dependent diabetes mellitus: Status: Chronic Assessment and Plan: Per primary service. (8) Suspected COVID-19 virus infection: Code(s): Z20.822 - Contact with and (suspected) exposure to COVID-19 Status: Acute Assessment and Plan: COVID negative Subjective Date/time seen: 02/18/21 08:16 Interval history: Follow-up visit in this 45-year-old man with: Recent evaluation in the hospital demonstrating noninvasive evidence of ischemic cardiomyopathy. Echo and stress test suggest evidence of previous infarction, no significant ischemic burden and simple medical therapy was this was recommended. Patient not felt to be a candidate for invasive evaluation because of GI bleeding and renal failure. Patient returned to the hospital on Tuesday evening last weekend with some shortness of breath. Pattern of infiltration multiple lung villarreal. Being treated for suspected pneumonia. Patient also has extensive peripheral disease status post right lower extremity amputation. Date of service: 02/17/2021: Patient resting comfortably in bed. On high flow O2 but prefers BiPAP due to comfort. He denies any chest pain. No shortness of breath at rest. Date of service 02/18/2021: Patient is feeling ok today. His breathing is better. Now on O2 per nasal cannula. No shortness of breath. He denies chest pain. He still has significant edema. Review of Systems Review of Systems: All systems reviewed & are unremarkable except as noted in HPI and below ROS unobtainable: Yes other ( Limited due to BiPAP and medical condition.) Constitutional: Constitutional: Reports as per HPI, Reports no additional constitutional complaints, Reports fatigue and Reports weakness Eyes: Eyes: Reports as per HPI and Reports no additional eye complaints ENT: Reports system reviewed and no additional complaints, except as documented and Reports as per HPI Cardiovascular: Cardiovascular: Reports as per HPI, Reports no additional cardiovascular complain
[2021-02-18] MEDS: IPRATROPIUM BR 0.02% INH SOLN 0.5 MG/2.5 ML VIAL INHALATION ×3 (08:19→19:36)
[2021-02-18] MEDS: ALBUTEROL SULFATE NEB 2.5 MG/0.5 ML INH INHALATION ×3 (08:19→19:35)
[2021-02-18] MEDS: BUMETANIDE INJ 2.5 MG/10 ML VIAL 2 MG IV PUSH ×2 (08:47→17:08)
[2021-02-18] MEDS: amLODIPine BESYLATE 5 MG TABLET 10 MG PO (08:48)
[2021-02-18] MEDS: METOPROLOL TARTRATE 50 MG TAB PO ×2 (08:50→20:12)
[2021-02-18] MEDS: ISOSORBIDE MONONITRATE 60 MG TAB.ER.24H PO (08:50)
[2021-02-18] MEDS: SILVERGEL (ELTA) 45 ML 1 APPLIC TOPICAL (08:51)
[2021-02-18 09:00] LABS: Glucose Point of Care 218 mg/dl (65-105)
[2021-02-18] MEDS: INSULIN ASPART (*BKC) 100 UNITS/ML SUB-Q ×2 (09:00→14:45)
[2021-02-18 09:13] LABS: Troponin I < 0.012 ng/mL (0.000-0.034)
--- NOTE | 2021-02-18 10:45 | PM.IMPN ---
Progress Note: A&P Assessment and Plan (1) Acute respiratory failure: Qualifiers: Respiratory failure complication: unspecified whether with hypoxia or hypercapnia Qualified Code(s): J96.00 - Acute respiratory failure, unspecified whether with hypoxia or hypercapnia Code(s): J96.00 - Acute respiratory failure, unspecified whether with hypoxia or hypercapnia Status: Acute Assessment and Plan: BiPAP p.r.n. wean patient off oxygen as tolerated, continue current tube (2) Abnormal chest x-ray: Code(s): R93.89 - Abnormal findings on diagnostic imaging of other specified body structures Status: Acute Assessment and Plan: treat pneumonia, and CHF continue with IV antibiotics (3) Combined congestive systolic and diastolic heart failure: Code(s): I50.40 - Unspecified combined systolic (congestive) and diastolic (congestive) heart failure Status: Acute Assessment and Plan: Lasix prn consult noted. Continue current treatment (4) Insulin dependent diabetes mellitus: Status: Chronic Assessment and Plan: monitor blood sugar (5) Anemia in chronic illness: Code(s): D63.8 - Anemia in other chronic diseases classified elsewhere Status: Acute Assessment and Plan: Hemoglobin and hematocrit are stable and will be monitored. (6) Chronic kidney disease: Code(s): N18.9 - Chronic kidney disease, unspecified Status: Chronic Assessment and Plan: Monitor closely while diuresing. Additional Plan will continue with IV antibiotics. Monitor culture, x-ray and electrolytes. 02/18/2021: Case discussed with family in detail. Agree with current plan of care and treatment. Will continue with antibiotic and diuresis. Cardiology input noted. Subjective Date/time seen: 02/18/21 10:45 Patient was seen during the morning rounds today. Patient has mild shortness of breath. No chest pain. Patient is still requiring BiPAP. No abdominal pain, no nausea, no vomiting. Mood stable. Review of Systems Review of Systems: All systems reviewed & are unremarkable except as noted in HPI and below ( the history and physical exam.) Exam Const: General: cooperative and no acute distress HENMT: Head: normal to inspection Eyes: General: appearance normal, both eyes and all related structures Neck: Neck: normal visual inspection Chest: Chest palpation & inspection: normal inspection of the chest Resp: Effort & Inspection: normal respiratory effort Cardio: Jugular venous distension: no JVD Rate: regular rate GI: Inspection: normal to inspection and non-distended Extrem: Other: right below-knee amputation Objective Data Vital Signs Vital Signs: Vital Signs - 24 hr 02/17/21 12:00 02/17/21 14:00 02/17/21 14:28 Temperature 36.6 C Pulse Rate 70 89 86 Respiratory Rate 20 20 Blood Pressure 154/91 H Pulse Oximetry 97 96 02/17/21 14:34 02/17/21 16:00 02/17/21 16:57 Temperature 36.5 C Pulse Rate 87 84 Respiratory Rate 28 H 18 Blood Pressure 144/79 H Pulse Oximetry 95 98 02/17/21 18:00 02/17/21 20:00 02/17/21 20:10 Temperature 36.7 C Pulse Rate 83 85 90 Respiratory Rate 20 Blood Pressure 140/83 Pulse Oximetry 98 95 02/17/21 20:56 02/17/21 20:58 02/17/21 21:03 Temperature Pulse Rate 86 87 Respiratory Rate 22 H 22 H Blood Pressure Pulse Oximetry 96 02/17/21 22:00 02/17/21 23:39 02/18/21 00:00 Temperature 36.7 C Pulse Rate 87 71 84 Respiratory Rate 26 H 28 H Blood Pressure 155/72 H Pulse Oximetry 97 97 02/18/21 02:00 02/18/21 02:05 02/18/21 02:08 Temperature Pulse Rate 84 71 77 Respiratory Rate 25 H 26 H Blood Pressure Pulse Oximetry 97 02/18/21 02:13 02/18/21 04:00 02/18/21 05:40 Temperature 36.8 C Pulse Rate 79 92 86 Respiratory Rate 25 H 26 H 32 H Blood Pressure 130/88 Pulse Oximetry 97 100 02/18/21 08:
--- NOTE | 2021-02-18 11:45 | P.PNNP_ITS ---
Progress Note: A&P Assessment and Plan (1) Chronic kidney disease: Code(s): N18.9 - Chronic kidney disease, unspecified Status: Chronic Assessment and Plan: * unclear what true baseline creatinine is... * on last admission, it had been relatively stable around 3.0mg/dl * it acutely krystle due to presumed renal hypoperfusion in the setting of an acute GI bleed * by the time of discharge from [facility] in [place], his creatinine was down to 2.3mg/dl * creatinine down to 1.9mg/dl on admission here -- however, this could be a dilutional value given his fluid overload * renal biopsy on last hospitalization consistently mainly with diabetic nephropathy * follow trend of kidney function with diuresis (2) Anasarca: Code(s): R60.1 - Generalized edema Status: Acute Assessment and Plan: * partly related to nephrotic range proteinuria and nephrotic syndrome along with heart failure * s/p trial of IV albumin * continue IV bumex * follow I/O's and exam (3) Acute respiratory failure: Qualifiers: Respiratory failure complication: unspecified whether with hypoxia or hypercapnia Qualified Code(s): J96.00 - Acute respiratory failure, unspecified whether with hypoxia or hypercapnia Code(s): J96.00 - Acute respiratory failure, unspecified whether with hypoxia or hypercapnia Status: Acute Assessment and Plan: * due to volume overload and possible pneumonia * BiPAP support PRN * diuresis and antibiotics * follow respiratory status (4) Combined congestive systolic and diastolic heart failure: Code(s): I50.40 - Unspecified combined systolic (congestive) and diastolic (congestive) heart failure Status: Acute Assessment and Plan: * as noted by evaluation here on last hospitalization * acute exacerbation noted on this admission * complicated by noncompliance (no fluid restriction and unclear if he was on/taking diuretic therapy) * follow I/Os, daily weights, and exam * I worry this may be a recurring problem.... (5) Pneumonia: Code(s): J18.9 - Pneumonia, unspecified organism Status: Acute Assessment and Plan: * as suggested by admission imaging * follow cultures * on antibiotics (6) Anemia: Code(s): D64.9 - Anemia, unspecified Status: Acute Assessment and Plan: * likely related to CKD and recent GI bleed * follow trend of H/H * on Epogen (7) Hypertension: Code(s): I10 - Essential (primary) hypertension Status: Acute Assessment and Plan: * on the higher side today * presumably should improve with diuresis/fluid removal * follow trend of hemodynamics (8) Diabetes: Code(s): E11.9 - Type 2 diabetes mellitus without complications Status: Chronic Assessment and Plan: * poor control at baseline * follow accuchecks * glycemic control Will continue to follow. Subjective Date/time seen: 02/18/21 11:45 Respiratory status continues to slowly improve with ongoing aggressive diuresis; still has quite a bit of swelling/edema but this also appears better in general; no events/issues overnight or earlier this. Exam Narrative: Exam Narrative: General: WD/WN male in NAD Heart: normal S1 and S2; no rub Lungs: decreased breath sounds at bases Abdomen: soft, nontender, nondistended, positive bowel sounds Extremities: no cyanosis or clubbing; 1 - 2+ edema (UEs, LEs, abdomen) Skin: No rash or nodules Objective D
--- NOTE | 2021-02-18 11:45 | PM.PNNEP ---
Progress Note: A&P Assessment and Plan (1) Chronic kidney disease: Code(s): N18.9 - Chronic kidney disease, unspecified Status: Chronic Assessment and Plan: unclear what true baseline creatinine is... on last admission, it had been relatively stable around 3.0mg/dl it acutely krystle due to presumed renal hypoperfusion in the setting of an acute GI bleed by the time of discharge from [facility] in [place], his creatinine was down to 2.3mg/dl creatinine down to 1.9mg/dl on admission here -- however, this could be a dilutional value given his fluid overload renal biopsy on last hospitalization consistently mainly with diabetic nephropathy follow trend of kidney function with diuresis (2) Anasarca: Code(s): R60.1 - Generalized edema Status: Acute Assessment and Plan: partly related to nephrotic range proteinuria and nephrotic syndrome along with heart failure s/p trial of IV albumin continue IV bumex follow I/O's and exam (3) Acute respiratory failure: Qualifiers: Respiratory failure complication: unspecified whether with hypoxia or hypercapnia Qualified Code(s): J96.00 - Acute respiratory failure, unspecified whether with hypoxia or hypercapnia Code(s): J96.00 - Acute respiratory failure, unspecified whether with hypoxia or hypercapnia Status: Acute Assessment and Plan: due to volume overload and possible pneumonia BiPAP support PRN diuresis and antibiotics follow respiratory status (4) Combined congestive systolic and diastolic heart failure: Code(s): I50.40 - Unspecified combined systolic (congestive) and diastolic (congestive) heart failure Status: Acute Assessment and Plan: as noted by evaluation here on last hospitalization acute exacerbation noted on this admission complicated by noncompliance (no fluid restriction and unclear if he was on/taking diuretic therapy) follow I/Os, daily weights, and exam I worry this may be a recurring problem.... (5) Pneumonia: Code(s): J18.9 - Pneumonia, unspecified organism Status: Acute Assessment and Plan: as suggested by admission imaging follow cultures on antibiotics (6) Anemia: Code(s): D64.9 - Anemia, unspecified Status: Acute Assessment and Plan: likely related to CKD and recent GI bleed follow trend of H/H on Epogen (7) Hypertension: Code(s): I10 - Essential (primary) hypertension Status: Acute Assessment and Plan: on the higher side today presumably should improve with diuresis/fluid removal follow trend of hemodynamics (8) Diabetes: Code(s): E11.9 - Type 2 diabetes mellitus without complications Status: Chronic Assessment and Plan: poor control at baseline follow accuchecks glycemic control Will continue to follow. Subjective Date/time seen: 02/18/21 11:45 Respiratory status continues to slowly improve with ongoing aggressive diuresis; still has quite a bit of swelling/edema but this also appears better in general; no events/issues overnight or earlier this. Exam Narrative: Exam Narrative: General: WD/WN male in NAD Heart: normal S1 and S2; no rub Lungs: decreased breath sounds at bases Abdomen: soft, nontender, nondistended, positive bowel sounds Extremities: no cyanosis or clubbing; 1 - 2+ edema (UEs, LEs, abdomen) Skin: No rash or nodules Objective Data Vital Signs Vital Signs: Vital Signs Temp Pulse Resp BP Pulse Ox 02/18/21 10:00 91 02/18/21 08:50 91 02/18/21 08:27 92 30 H 99 02/18/21 08:21 95 02/18/21 08:19 93 31 H 02/18/21 08:00 91 29 H 160/79 H 100 02/18/21 05:40 86 32 H 100 02/18/21 04:00 36.8 C 92 26 H 130/88 97 02/18/21 02:13 79 25 H 02/18/21 02:08 77 26 H 02/18/21 02:05 71 25 H 97 02/18/21 02:00 84 02/18/21 00:00 36.7 C 84 28 H 155/72 H 97
--- NOTE | 2021-02-18 11:59 | WPDUROPN2 ---
Progress Note: A&P Assessment and Plan (1) Genital edema, male: Code(s): N50.89 - Other specified disorders of the male genital organs Status: Acute Assessment and Plan: Stable, will take a long time to resolve, several weeks, continue to elevated and apply ICE PRN for pain. Ok to remove catheter when no longer needed for I&O purposes and perform a voiding trial. Subjective Subjective Date/Time Seen: 02/18/21 11:59 Patient only c/o scrotal pain when he moves or touches it, otherwise it is improving. We spoke via video senior planning manager. Review of Systems Cardiovascular: Cardiovascular: Denies chest pain Respiratory: Respiratory: Reports dyspnea Gastrointestinal: Gastrointestinal: Denies abdominal pain, Denies nausea and Denies vomiting Genitourinary: Genitourinary: Denies hematuria and Reports scrotal swelling Exam Resp: Effort & Inspection: tachypneic Cardio: Rate: regular rate GI: GI Palp: Yes Soft to palpation and No Tenderness to palpation present (GI) : Scrotum: no ecchymosis, edematous (tender on exam) bilateral, not erythematous and scrotal swelling Urinary Catheter: Urinary Catheter: patent and draining and urine clear Extrem: General: no edema Objective Data Vital Signs Vital Signs: Vital Signs - 24 hr 02/17/21 12:00 02/17/21 14:00 02/17/21 14:28 Temperature 97.9 F Pulse Rate 70 89 86 Respiratory Rate 20 20 Blood Pressure 154/91 H Pulse Oximetry 97 96 02/17/21 14:34 02/17/21 16:00 02/17/21 16:57 Temperature 97.7 F Pulse Rate 87 84 Respiratory Rate 28 H 18 Blood Pressure 144/79 H Pulse Oximetry 95 98 02/17/21 18:00 02/17/21 20:00 02/17/21 20:10 Temperature 98.1 F Pulse Rate 83 85 90 Respiratory Rate 20 Blood Pressure 140/83 Pulse Oximetry 98 95 02/17/21 20:56 02/17/21 20:58 02/17/21 21:03 Temperature Pulse Rate 86 87 Respiratory Rate 22 H 22 H Blood Pressure Pulse Oximetry 96 02/17/21 22:00 02/17/21 23:39 02/18/21 00:00 Temperature 98.1 F Pulse Rate 87 71 84 Respiratory Rate 26 H 28 H Blood Pressure 155/72 H Pulse Oximetry 97 97 02/18/21 02:00 02/18/21 02:05 02/18/21 02:08 Temperature Pulse Rate 84 71 77 Respiratory Rate 25 H 26 H Blood Pressure Pulse Oximetry 97 02/18/21 02:13 02/18/21 04:00 02/18/21 05:40 Temperature 98.3 F Pulse Rate 79 92 86 Respiratory Rate 25 H 26 H 32 H Blood Pressure 130/88 Pulse Oximetry 97 100 02/18/21 08:00 02/18/21 08:19 02/18/21 08:21 Temperature Pulse Rate 91 93 Respiratory Rate 29 H 31 H Blood Pressure 160/79 H Pulse Oximetry 100 95 02/18/21 08:27 02/18/21 08:50 02/18/21 10:00 Temperature Pulse Rate 92 91 91 Respiratory Rate 30 H Blood Pressure Pulse Oximetry 99 Intake/Output Intake/Output: Intake & Output 02/15/21 02/16/21 02/17/21 02/18/21 23:59 23:59 23:59 23:59 Intake Total 1550 1579 1260 640 Output Total 1200 2725 5375 4425 Balance 407 -1146 -4115 -3785 Meds/Results Medications: Active Medications Generic Name Dose Route Start Last Admin Trade Name Freq PRN Reason Stop Dose Admin Acetaminophen 650 mg 02/15/21 23:00 02/18/21 06:19 Acetaminophen 325 Mg Tablet PO 650 mg Q6H PRN Administration Mild Pain (1-3) or Fever Albuterol 2.5 mg 02/14/21 14:00 02/18/21 08:19 Albuterol Sulfate Neb 2.5 Mg/0.5 Ml Inh INHALATION 2.5 mg Q6HRT GEE Administration Amlodipine Besylate 10 mg 02/14/21 09:00 02/18/21 08:48 Amlodipine Besylate 5 Mg Tablet PO 10 mg DAILY GEE Administration Bumetanide 2 mg 02/16/21 08:00 02/18/21 08:47 Bumetanide Inj 2.5 Mg/10 Ml Vial IV PUSH 2 mg Q8H GEE Administration Dextrose 12.5 gm 02/13/21 23:42 02/15/21 06:51 Dextrose 50% 25 Gm/50 Ml Syringe IV PUSH 12.5 gm PRN PRN Administration Hypoglycemia Protocol Epoetin Brayan-epbx 10,000 units 02/16/21 10:00 02/16/21 10:54 Epoetin Brayan-Epbx 10,000 Units/Ml V
[2021-02-18] MEDS: EPOETIN ALFA-EPBX 10,000 UNITS/ML VIAL 10000 UNITS SUB-Q (14:45)
[2021-02-18 17:07] LABS: Glucose Point of Care 235 mg/dl (65-105)
[2021-02-18 17:08] LABS: Glucose Point of Care 170 mg/dl (65-105)
[2021-02-18 19:59] LABS: Glucose Point of Care 254 mg/dl (65-105)
[2021-02-18] MEDS: LORazepam INJ (*CRX) 2 MG/ML VIAL 1 MG IV PUSH (22:48)
[2021-02-19] VITALS (24 sets, daily range): BP systolic 143–173; BP diastolic 72–93; PULSE 83–102; RESP 18–29; TEMP 36.6–37.4; O2SAT 95–100
[2021-02-19] MEDS: BUMETANIDE INJ 2.5 MG/10 ML VIAL 2 MG IV PUSH ×3 (00:35→16:24)
[2021-02-19] MEDS: ALBUTEROL SULFATE NEB 2.5 MG/0.5 ML INH INHALATION ×4 (01:16→21:03)
[2021-02-19] MEDS: IPRATROPIUM BR 0.02% INH SOLN 0.5 MG/2.5 ML VIAL INHALATION ×4 (01:17→21:03)
[2021-02-19 04:38] LABS: Hematocrit 29.9 % (42.0-52.0); Hemoglobin 9.1 g/dL (14.0-18.0); Mean Corpuscular HGB Conc 30.4 g/dl (32-36); Mean Corpuscular Hemoglobin 27.7 pg (26-34); Mean Corpuscular Volume 90.9 fl (80-100); Mean Platelet Volume 10.7 fl (7.4-10.4); Platelet Count Result 310 k/mm3 (150-375); Red Blood Count 3.29 M/mm3 (4.6-6.20); Red Cell Distribution Width 14.5 % (11.5-14.5); White Blood Count 8.8 K/mm3 (4.5-10.0)
[2021-02-19 04:51] LABS: Alanine Aminotransferase 17 U/L (4-50); Albumin Level 2.9 g/dL (3.5-5.1); Alkaline Phosphatase 320 U/L (38-126); Anion Gap 7 mmol/L (8-16); Aspartate Amino Transferase 21 U/L (17-59); Bilirubin,Total 0.3 mg/dL (0.2-1.3); Blood Urea Nitrogen 47 mg/dL (9-20); Calcium 8.8 mg/dL (8.4-10.2); Carbon Dioxide 32 mmol/L (22-30); Chloride 105 mmol/L (98-107); Estimated CRCL calculation 40 ml/min; Estimated Glomerular Filt Rate 34; Glucose 239 mg/dL (75-110); Magnesium 1.8 mg/dL (1.6-2.3); Phosphorus 3.5 mg/dL (2.5-4.5); Sodium 144 mmol/L (137-145)
[2021-02-19] MEDS: SILVERGEL (ELTA) 45 ML 1 APPLIC TOPICAL (08:42)
[2021-02-19] MEDS: ISOSORBIDE MONONITRATE 60 MG TAB.ER.24H PO (08:43)
[2021-02-19] MEDS: amLODIPine BESYLATE 5 MG TABLET 10 MG PO (08:43)
[2021-02-19] MEDS: METOPROLOL TARTRATE 50 MG TAB PO ×2 (08:43→20:51)
[2021-02-19 08:54] LABS: Glucose Point of Care 192 mg/dl (65-105)
--- NOTE | 2021-02-19 10:17 | P.PNNP_ITS ---
Progress Note: A&P Assessment and Plan (1) Chronic kidney disease: Code(s): N18.9 - Chronic kidney disease, unspecified Status: Chronic Assessment and Plan: * unclear what true baseline creatinine is... * on last admission, it had been relatively stable around 3.0mg/dl * it acutely krystle due to presumed renal hypoperfusion in the setting of an acute GI bleed * by the time of discharge from [facility] in [place], his creatinine was down to 2.3mg/dl * creatinine down to 1.9mg/dl on admission here -- however, this could be a dilutional value given his fluid overload * renal biopsy on last hospitalization consistently mainly with diabetic nephropathy * follow trend of kidney function with diuresis (2) Anasarca: Code(s): R60.1 - Generalized edema Status: Acute Assessment and Plan: * partly related to nephrotic range proteinuria and nephrotic syndrome along with heart failure * s/p trial of IV albumin * continue IV bumex * follow I/O's and exam * suspect he will always have some degree of edema/swelling in general (3) Acute respiratory failure: Qualifiers: Respiratory failure complication: unspecified whether with hypoxia or hypercapnia Qualified Code(s): J96.00 - Acute respiratory failure, unspecified whether with hypoxia or hypercapnia Code(s): J96.00 - Acute respiratory failure, unspecified whether with hypoxia or hypercapnia Status: Acute Assessment and Plan: * due to volume overload and possible pneumonia * BiPAP support PRN * diuresis and antibiotics * follow respiratory status (4) Combined congestive systolic and diastolic heart failure: Code(s): I50.40 - Unspecified combined systolic (congestive) and diastolic (congestive) heart failure Status: Acute Assessment and Plan: * as noted by evaluation here on last hospitalization * acute exacerbation noted on this admission * complicated by noncompliance (no fluid restriction and unclear if he was on/taking diuretic therapy) * follow I/Os, daily weights, and exam * I worry this may be a recurring problem.... (5) Pneumonia: Code(s): J18.9 - Pneumonia, unspecified organism Status: Acute Assessment and Plan: * as suggested by admission imaging * follow cultures * on antibiotics (6) Anemia: Code(s): D64.9 - Anemia, unspecified Status: Acute Assessment and Plan: * likely related to CKD and recent GI bleed * follow trend of H/H * on Epogen (7) Hypertension: Code(s): I10 - Essential (primary) hypertension Status: Acute Assessment and Plan: * presumably should improve with diuresis/fluid removal * would add DEMARCUS or ARB following diuresis/close to discharge to help with proteinuria * follow trend of hemodynamics (8) Diabetes: Code(s): E11.9 - Type 2 diabetes mellitus without complications Status: Chronic Assessment and Plan: * poor control at baseline * follow accuchecks * glycemic control Will continue to follow. Subjective Date/time seen: 02/19/21 10:17 States his breathing continues to improve with ongoing diuresis but he still has significant swelling/edema; no other acute issues or problems voiced; no events/issues overnight or earlier this AM. Exam Narrative: Exam Narrative: General: WD/WN male in NAD Heart: normal S1 and S2; no rub Lungs: decreased breath sounds at bases Abdomen: soft, nontender, nondistended, positive bowel sounds E
--- NOTE | 2021-02-19 10:17 | PM.PNNEP ---
Progress Note: A&P Assessment and Plan (1) Chronic kidney disease: Code(s): N18.9 - Chronic kidney disease, unspecified Status: Chronic Assessment and Plan: unclear what true baseline creatinine is... on last admission, it had been relatively stable around 3.0mg/dl it acutely krystle due to presumed renal hypoperfusion in the setting of an acute GI bleed by the time of discharge from [facility] in [place], his creatinine was down to 2.3mg/dl creatinine down to 1.9mg/dl on admission here -- however, this could be a dilutional value given his fluid overload renal biopsy on last hospitalization consistently mainly with diabetic nephropathy follow trend of kidney function with diuresis (2) Anasarca: Code(s): R60.1 - Generalized edema Status: Acute Assessment and Plan: partly related to nephrotic range proteinuria and nephrotic syndrome along with heart failure s/p trial of IV albumin continue IV bumex follow I/O's and exam suspect he will always have some degree of edema/swelling in general (3) Acute respiratory failure: Qualifiers: Respiratory failure complication: unspecified whether with hypoxia or hypercapnia Qualified Code(s): J96.00 - Acute respiratory failure, unspecified whether with hypoxia or hypercapnia Code(s): J96.00 - Acute respiratory failure, unspecified whether with hypoxia or hypercapnia Status: Acute Assessment and Plan: due to volume overload and possible pneumonia BiPAP support PRN diuresis and antibiotics follow respiratory status (4) Combined congestive systolic and diastolic heart failure: Code(s): I50.40 - Unspecified combined systolic (congestive) and diastolic (congestive) heart failure Status: Acute Assessment and Plan: as noted by evaluation here on last hospitalization acute exacerbation noted on this admission complicated by noncompliance (no fluid restriction and unclear if he was on/taking diuretic therapy) follow I/Os, daily weights, and exam I worry this may be a recurring problem.... (5) Pneumonia: Code(s): J18.9 - Pneumonia, unspecified organism Status: Acute Assessment and Plan: as suggested by admission imaging follow cultures on antibiotics (6) Anemia: Code(s): D64.9 - Anemia, unspecified Status: Acute Assessment and Plan: likely related to CKD and recent GI bleed follow trend of H/H on Epogen (7) Hypertension: Code(s): I10 - Essential (primary) hypertension Status: Acute Assessment and Plan: presumably should improve with diuresis/fluid removal would add DEMARCUS or ARB following diuresis/close to discharge to help with proteinuria follow trend of hemodynamics (8) Diabetes: Code(s): E11.9 - Type 2 diabetes mellitus without complications Status: Chronic Assessment and Plan: poor control at baseline follow accuchecks glycemic control Will continue to follow. Subjective Date/time seen: 02/19/21 10:17 States his breathing continues to improve with ongoing diuresis but he still has significant swelling/edema; no other acute issues or problems voiced; no events/issues overnight or earlier this AM. Exam Narrative: Exam Narrative: General: WD/WN male in NAD Heart: normal S1 and S2; no rub Lungs: decreased breath sounds at bases Abdomen: soft, nontender, nondistended, positive bowel sounds Extremities: no cyanosis or clubbing; 1 - 2+ edema (UEs, LEs, abdomen) Skin: warm and dry Objective Data Vital Signs Vital Signs: Vital Signs Temp Pulse Resp BP Pulse Ox 02/19/21 08:43 97 02/19/21 08:21 99 02/19/21 08:19 92 25 H 97 02/19/21 06:00 94 02/19/21 04:00 37.2 C 97 25 H 155/78 H 100 02/19/21 02:00 100 02/19/21 01:24 101 H 24 H 02/19/21 01:17 101 H 28 H 02/19/21 00:17 102 H 23 H 98 02/19/21 00:00 37.4 C 98
--- NOTE | 2021-02-19 12:27 | PM.PNCARD ---
Progress Note: A&P Assessment and Plan (1) CHF (congestive heart failure): Code(s): I50.9 - Heart failure, unspecified Status: Acute Assessment and Plan: Acute decompensated heart failure secondary to patient's admission to noncompliance with medical therapy, LV dysfunction, acute renal failure. EF 40-45%. Possible underlying CAD given abnormal stress test with area of large severe infarct extending from the apical lateral and mid to basal anterolateral and inferolateral segments. -Continue diuresis as tolerated -No DEMARCUS/ARB for now -Monitor renal function (nephrology following) (2) Acute respiratory failure: Qualifiers: Respiratory failure complication: unspecified whether with hypoxia or hypercapnia Qualified Code(s): J96.00 - Acute respiratory failure, unspecified whether with hypoxia or hypercapnia Code(s): J96.00 - Acute respiratory failure, unspecified whether with hypoxia or hypercapnia Status: Acute Assessment and Plan: On O2 per nasal cannula, BiPAP intermittently. Continue diuresis, IV antibiotics. (3) Acute respiratory failure with hypoxia: Code(s): J96.01 - Acute respiratory failure with hypoxia Status: Acute Assessment and Plan: As above. (4) Noncompliance: Code(s): Z91.19 - Patient's noncompliance with other medical treatment and regimen Status: Acute Assessment and Plan: Very likely a significant contributor to patient's repeat acute hospitalization. Patient is aware. (5) GLENN (acute kidney injury): Code(s): N17.9 - Acute kidney failure, unspecified Status: Acute Assessment and Plan: Acute on chronic renal failure. Nephrology following. (6) Anemia, iron deficiency: Code(s): D50.9 - Iron deficiency anemia, unspecified Status: Acute Assessment and Plan: Follow H&H, stable. Patient remains a poor candidate for antiplatelet therapy. (7) Insulin dependent diabetes mellitus: Status: Chronic Assessment and Plan: Per primary service. (8) Suspected COVID-19 virus infection: Code(s): Z20.822 - Contact with and (suspected) exposure to COVID-19 Status: Acute Assessment and Plan: COVID negative Subjective Date/time seen: 02/19/21 12:27 Interval history: Follow-up visit in this 45-year-old man with: Recent evaluation in the hospital demonstrating noninvasive evidence of ischemic cardiomyopathy. Echo and stress test suggest evidence of previous infarction, no significant ischemic burden and simple medical therapy was this was recommended. Patient not felt to be a candidate for invasive evaluation because of GI bleeding and renal failure. Patient returned to the hospital on Tuesday evening last weekend with some shortness of breath. Pattern of infiltration multiple lung villarreal. Being treated for suspected pneumonia. Patient also has extensive peripheral disease status post right lower extremity amputation. Date of service: 02/17/2021: Patient resting comfortably in bed. On high flow O2 but prefers BiPAP due to comfort. He denies any chest pain. No shortness of breath at rest. Date of service 02/18/2021: Patient is feeling ok today. His breathing is better. Now on O2 per nasal cannula. No shortness of breath. He denies chest pain. He still has significant edema. Date of service 02/19/2021: Patient is disoriented today is requiring a sitter for safety. Apparently, yesterday around 4:00 p.m. he started developing more confusion. His breathing is more labored today. He is on oxygen per nasal cannula but is being switched over to BiPAP. He denies any chest pain. Review of Systems Review of Systems: All systems reviewed & are unremarkable except as noted in HPI and below ROS unobtainable: Yes other ( Limited due to BiPAP and medical condition.) Constitutional: Constitutional: Reports as per HPI, Reports no additional constitutiona
[2021-02-19 12:28] LABS: Glucose Point of Care 166 mg/dl (65-105)
[2021-02-19] MEDS: hydrALAZINE HCL 20 MG/ML VIAL 10 MG IV PUSH (14:34)
[2021-02-19 16:34] LABS: Glucose Point of Care 154 mg/dl (65-105)
--- NOTE | 2021-02-19 16:56 | PM.IMPN ---
Progress Note: A&P Assessment and Plan (1) Acute respiratory failure: Qualifiers: Respiratory failure complication: unspecified whether with hypoxia or hypercapnia Qualified Code(s): J96.00 - Acute respiratory failure, unspecified whether with hypoxia or hypercapnia Code(s): J96.00 - Acute respiratory failure, unspecified whether with hypoxia or hypercapnia Status: Acute Assessment and Plan: BiPAP p.r.n. wean patient off oxygen as tolerated, continue current management (2) Abnormal chest x-ray: Code(s): R93.89 - Abnormal findings on diagnostic imaging of other specified body structures Status: Acute Assessment and Plan: treat pneumonia, and CHF continue with IV antibiotics (3) Combined congestive systolic and diastolic heart failure: Code(s): I50.40 - Unspecified combined systolic (congestive) and diastolic (congestive) heart failure Status: Acute Assessment and Plan: Lasix prn consult noted. Continue current treatment (4) Insulin dependent diabetes mellitus: Status: Chronic Assessment and Plan: monitor blood sugar (5) Anemia in chronic illness: Code(s): D63.8 - Anemia in other chronic diseases classified elsewhere Status: Acute Assessment and Plan: Hemoglobin and hematocrit are stable and will be monitored. (6) Chronic kidney disease: Code(s): N18.9 - Chronic kidney disease, unspecified Status: Chronic Assessment and Plan: Monitor closely while diuresing. Additional Plan will continue with IV antibiotics. Monitor culture, x-ray and electrolytes. 02/18/2021: Case discussed with family in detail. Agree with current plan of care and treatment. Will continue with antibiotic and diuresis. Cardiology input noted. Subjective Date/time seen: 02/19/21 16:56 Interval history: shortness of breath is better, patient on BiPAP Review of Systems Review of Systems: All systems reviewed & are unremarkable except as noted in HPI and below ( the history and physical exam.) Exam Const: General: cooperative and no acute distress HENMT: Head: normal to inspection Eyes: General: appearance normal, both eyes and all related structures Neck: Neck: normal visual inspection Chest: Chest palpation & inspection: normal inspection of the chest Resp: Effort & Inspection: normal respiratory effort Cardio: Jugular venous distension: no JVD Rate: regular rate GI: Inspection: normal to inspection and non-distended Extrem: Other: right below-knee amputation Objective Data Vital Signs Vital Signs: Vital Signs - 24 hr 02/18/21 18:00 02/18/21 19:36 02/18/21 19:43 Temperature Pulse Rate 87 98 100 Respiratory Rate 22 H 27 H Blood Pressure Pulse Oximetry 99 02/18/21 20:00 02/18/21 20:12 02/18/21 22:00 Temperature 98.4 F Pulse Rate 102 H 100 100 Respiratory Rate 14 Blood Pressure 155/79 H Pulse Oximetry 96 02/19/21 00:00 02/19/21 00:17 02/19/21 01:17 Temperature 99.4 F Pulse Rate 98 102 H 101 H Respiratory Rate 29 H 23 H 28 H Blood Pressure 152/85 H Pulse Oximetry 95 98 02/19/21 01:24 02/19/21 02:00 02/19/21 04:00 Temperature 98.9 F Pulse Rate 101 H 100 97 Respiratory Rate 24 H 25 H Blood Pressure 155/78 H Pulse Oximetry 100 02/19/21 06:00 02/19/21 07:45 02/19/21 08:00 Temperature Pulse Rate 94 98 90 Respiratory Rate 24 H 27 H Blood Pressure 164/89 H Pulse Oximetry 100 02/19/21 08:19 02/19/21 08:21 02/19/21 08:43 Temperature Pulse Rate 92 97 Respiratory Rate 25 H Blood Pressure Pulse Oximetry 97 99 02/19/21 10:00 02/19/21 12:00 02/19/21 13:47 Temperature Pulse Rate 96 83 88 Respiratory Rate 22 H 25 H Blood Pressure 173/93 H Pulse Oximetry 100 02/19/21 13:57 02/19/21 14:00 Temperature Pulse Rate 91 Respiratory Rate Blood Pressure Pulse Oximetry 98 In
--- NOTE | 2021-02-19 17:34 | PM.IMPN ---
Progress Note: A&P Assessment and Plan (1) Acute respiratory failure: Qualifiers: Respiratory failure complication: unspecified whether with hypoxia or hypercapnia Qualified Code(s): J96.00 - Acute respiratory failure, unspecified whether with hypoxia or hypercapnia Code(s): J96.00 - Acute respiratory failure, unspecified whether with hypoxia or hypercapnia Status: Acute Assessment and Plan: BiPAP p.r.n. wean patient off oxygen as tolerated, continue current management (2) Abnormal chest x-ray: Code(s): R93.89 - Abnormal findings on diagnostic imaging of other specified body structures Status: Acute Assessment and Plan: treat pneumonia, and CHF continue with IV antibiotics (3) Combined congestive systolic and diastolic heart failure: Code(s): I50.40 - Unspecified combined systolic (congestive) and diastolic (congestive) heart failure Status: Acute Assessment and Plan: Lasix prn consult noted. Continue current treatment (4) Insulin dependent diabetes mellitus: Status: Chronic Assessment and Plan: monitor blood sugar (5) Anemia in chronic illness: Code(s): D63.8 - Anemia in other chronic diseases classified elsewhere Status: Acute Assessment and Plan: Hemoglobin and hematocrit are stable and will be monitored. (6) Chronic kidney disease: Code(s): N18.9 - Chronic kidney disease, unspecified Status: Chronic Assessment and Plan: Monitor closely while diuresing. Additional Plan hydralazine p.r.n. for systolic of 150 or above will continue with IV antibiotics. Monitor culture, x-ray and electrolytes. 02/18/2021: Case discussed with family in detail. Agree with current plan of care and treatment. Will continue with antibiotic and diuresis. Cardiology input noted. Subjective Date/time seen: 02/19/21 17:34 I feel better today Interval history: shortness of breath is better, patient on BiPAP patient with hypertension today Review of Systems Review of Systems: All systems reviewed & are unremarkable except as noted in HPI and below ( the history and physical exam.) Exam Narrative: Exam Narrative: sitting in bed Const: General: cooperative, no acute distress and ill appearing chronically Nutritional Appearance: average body habitus Orientation/consciousness: patient oriented x3 HENMT: Head: normal to inspection Ears: hearing grossly normal bilaterally Face and sinus: normal facial exam Eyes: General: appearance normal, both eyes and all related structures Pupils: Equal, round and reactive pupils present EOM: EOMs intact bilaterally Neck: Neck: normal visual inspection Thyroid: thyroid normal Lymphatic: no lymphadenopathy noted Chest: Chest palpation & inspection: normal inspection of the chest Resp: Effort & Inspection: normal respiratory effort Auscultation: clear to auscultation bilaterally Cardio: Jugular venous distension: no JVD Rate: regular rate Rhythm: regular rhythm Heart sounds: S1 normal heart sound present and S2 normal heart sound present GI: Inspection: normal to inspection and non-distended GI Palp: Yes Soft to palpation and Yes No hepatosplenomegaly present : General: Yes deferred Skin: Rashes: no rashes Wounds: no wounds Neuro: General: patient oriented x3 and CN's II-XI intact bilaterally Cranial nerves: Yes CN's II-XII intact bilaterally and Yes Equal, round and reactive pupils present Cognition (Neuro): normal cognition Speech: normal speech Gait exam (Neuro): Normal gait present Motor exam (neuro): 5/5 motor strength present throughout Extrem: General: normal to inspection, full ROM, no joint enlargement and no pedal edema Other: right below-knee amputation Objective Data Vital Signs Vital Signs: Vital Signs - 24 hr 02/18/21 18:00 02/18/21 19:36 02/18/21 19:43 Temperature Pulse Rate 87 98 100 Respiratory
--- NOTE | 2021-02-19 18:33 | ADMGEN ---
This patient, Gustavo Chacko, was admitted to [facility] Surg Room 322-01. Patient/family oriented to hospital policies and general routines including ID bracelet, bed and alarms, visiting hours, pain management, procedures, bathroom and other care routines, personal items, smoking policy, room service/diet, and visiting hours. Information on how to activate the Rapid Response Team has been discussed. Patient/Family are encouraged to report perceived risks to care and to ask questions if they do not understand what they are told or what they should do.
--- NOTE | 2021-02-19 18:51 | PC.NURSE ---
This patient, Gustavo Chacko, was transferred to [[facility] ] on 02/19/21 at 1840. Personal belongings sent with patient. Report given to [Olamide ]. Appropriate documentation sent with patient.
[2021-02-19 22:13] LABS: Glucose Point of Care 193 mg/dl (65-105)
[2021-02-20] VITALS (15 sets, daily range): BP systolic 133–149; BP diastolic 65–78; PULSE 65–92; RESP 18–24; TEMP 36.1–36.8; O2SAT 93–100
[2021-02-20] MEDS: BUMETANIDE INJ 2.5 MG/10 ML VIAL 2 MG IV PUSH ×4 (00:26→23:03)
[2021-02-20] MEDS: ALBUTEROL SULFATE NEB 2.5 MG/0.5 ML INH INHALATION ×4 (02:53→20:13)
[2021-02-20] MEDS: IPRATROPIUM BR 0.02% INH SOLN 0.5 MG/2.5 ML VIAL INHALATION ×4 (02:53→20:13)
[2021-02-20 03:26] LABS: Vancomycin Trough 13.3 ug/mL (10.0-20.0)
[2021-02-20 08:10] LABS: Glucose Point of Care 119 mg/dl (65-105)
[2021-02-20] MEDS: METOPROLOL TARTRATE 50 MG TAB PO ×2 (09:49→22:06)
[2021-02-20] MEDS: amLODIPine BESYLATE 5 MG TABLET 10 MG PO (09:49)
[2021-02-20] MEDS: ISOSORBIDE MONONITRATE 60 MG TAB.ER.24H PO (09:49)
[2021-02-20] MEDS: SILVERGEL (ELTA) 45 ML 1 APPLIC TOPICAL (09:50)
[2021-02-20 11:16] LABS: Albumin Level 2.9 g/dL (3.5-5.1); Anion Gap 4 mmol/L (8-16); Blood Urea Nitrogen 40 mg/dL (9-20); Calcium 8.6 mg/dL (8.4-10.2); Carbon Dioxide 35 mmol/L (22-30); Chloride 103 mmol/L (98-107); Estimated CRCL calculation 44 ml/min; Estimated Glomerular Filt Rate 38; Glucose 179 mg/dL (75-110); Phosphorus 4.3 mg/dL (2.5-4.5); Potassium 3.7 mmol/L (3.4-5.0); Sodium 142 mmol/L (137-145)
[2021-02-20 11:35] LABS: Glucose Point of Care 179 mg/dl (65-105)
--- NOTE | 2021-02-20 12:51 | PCNWS ---
Weekly nutritional screen. Patient is tolerating current diet with adequate intake of 100% of meals. No weight loss reported. No nutritional needs at this time.
--- NOTE | 2021-02-20 12:56 | P.PNNP_ITS ---
Progress Note: A&P Assessment and Plan (1) Chronic kidney disease: Code(s): N18.9 - Chronic kidney disease, unspecified Status: Chronic Assessment and Plan: * unclear what true baseline creatinine is... * on last admission, it had been relatively stable around 3.0mg/dl * it acutely krystle due to presumed renal hypoperfusion in the setting of an acute GI bleed * by the time of discharge from [facility] in [place], his creatinine was down to 2.3mg/dl * creatinine down to 1.9mg/dl on admission here -- however, this could be a dilutional value given his fluid overload * creatinine actually improving with diuresis -- likely a component of renal venous hypertension +/- nephrosarca being relieved with diuresis * renal biopsy on last hospitalization consistently mainly with diabetic nephropathy * follow trend of kidney function with diuresis (2) Anasarca: Code(s): R60.1 - Generalized edema Status: Acute Assessment and Plan: * partly related to nephrotic range proteinuria and nephrotic syndrome along with heart failure * s/p trial of IV albumin * continue IV bumex * follow I/O's and exam * suspect he will always have some degree of edema/swelling in general * almost 16L negative since admission.... (3) Acute respiratory failure: Qualifiers: Respiratory failure complication: unspecified whether with hypoxia or hypercapnia Qualified Code(s): J96.00 - Acute respiratory failure, unspecified whether with hypoxia or hypercapnia Code(s): J96.00 - Acute respiratory failure, unspecified whether with hypoxia or hypercapnia Status: Acute Assessment and Plan: * due to volume overload and possible pneumonia * BiPAP support PRN * diuresis and antibiotics * add acetazolamide given rising CO2 level * follow respiratory status (4) Combined congestive systolic and diastolic heart failure: Code(s): I50.40 - Unspecified combined systolic (congestive) and diastolic (congestive) heart failure Status: Acute Assessment and Plan: * as noted by evaluation here on last hospitalization * acute exacerbation noted on this admission * complicated by noncompliance (no fluid restriction and unclear if he was on/taking diuretic therapy) * follow I/Os, daily weights, and exam * I worry this may be a recurring problem.... (5) Pneumonia: Code(s): J18.9 - Pneumonia, unspecified organism Status: Acute Assessment and Plan: * as suggested by admission imaging * follow cultures * on antibiotics (6) Anemia: Code(s): D64.9 - Anemia, unspecified Status: Acute Assessment and Plan: * likely related to CKD and recent GI bleed * follow trend of H/H * on Epogen (7) Hypertension: Code(s): I10 - Essential (primary) hypertension Status: Acute Assessment and Plan: * presumably should improve with diuresis/fluid removal * would add DEMARCUS or ARB following diuresis/close to discharge to help with proteinuria * follow trend of hemodynamics (8) Diabetes: Code(s): E11.9 - Type 2 diabetes mellitus without complications Status: Chronic Assessment and Plan: * poor control at baseline * follow accuchecks * glycemic control Will continue to follow. Subjective Date/time seen: 02/20/21 12:56 Almost 16L negative since admission with aggressive diuresis; breathing continues to slowly improve as does swelling/edema (but swelling/edema was quite severe on admission); no new issues or problems
--- NOTE | 2021-02-20 12:56 | PM.PNNEP ---
Progress Note: A&P Assessment and Plan (1) Chronic kidney disease: Code(s): N18.9 - Chronic kidney disease, unspecified Status: Chronic Assessment and Plan: unclear what true baseline creatinine is... on last admission, it had been relatively stable around 3.0mg/dl it acutely krystle due to presumed renal hypoperfusion in the setting of an acute GI bleed by the time of discharge from [facility] in [place], his creatinine was down to 2.3mg/dl creatinine down to 1.9mg/dl on admission here -- however, this could be a dilutional value given his fluid overload creatinine actually improving with diuresis -- likely a component of renal venous hypertension +/- nephrosarca being relieved with diuresis renal biopsy on last hospitalization consistently mainly with diabetic nephropathy follow trend of kidney function with diuresis (2) Anasarca: Code(s): R60.1 - Generalized edema Status: Acute Assessment and Plan: partly related to nephrotic range proteinuria and nephrotic syndrome along with heart failure s/p trial of IV albumin continue IV bumex follow I/O's and exam suspect he will always have some degree of edema/swelling in general almost 16L negative since admission.... (3) Acute respiratory failure: Qualifiers: Respiratory failure complication: unspecified whether with hypoxia or hypercapnia Qualified Code(s): J96.00 - Acute respiratory failure, unspecified whether with hypoxia or hypercapnia Code(s): J96.00 - Acute respiratory failure, unspecified whether with hypoxia or hypercapnia Status: Acute Assessment and Plan: due to volume overload and possible pneumonia BiPAP support PRN diuresis and antibiotics add acetazolamide given rising CO2 level follow respiratory status (4) Combined congestive systolic and diastolic heart failure: Code(s): I50.40 - Unspecified combined systolic (congestive) and diastolic (congestive) heart failure Status: Acute Assessment and Plan: as noted by evaluation here on last hospitalization acute exacerbation noted on this admission complicated by noncompliance (no fluid restriction and unclear if he was on/taking diuretic therapy) follow I/Os, daily weights, and exam I worry this may be a recurring problem.... (5) Pneumonia: Code(s): J18.9 - Pneumonia, unspecified organism Status: Acute Assessment and Plan: as suggested by admission imaging follow cultures on antibiotics (6) Anemia: Code(s): D64.9 - Anemia, unspecified Status: Acute Assessment and Plan: likely related to CKD and recent GI bleed follow trend of H/H on Epogen (7) Hypertension: Code(s): I10 - Essential (primary) hypertension Status: Acute Assessment and Plan: presumably should improve with diuresis/fluid removal would add DEMARCUS or ARB following diuresis/close to discharge to help with proteinuria follow trend of hemodynamics (8) Diabetes: Code(s): E11.9 - Type 2 diabetes mellitus without complications Status: Chronic Assessment and Plan: poor control at baseline follow accuchecks glycemic control Will continue to follow. Subjective Date/time seen: 02/20/21 12:56 Almost 16L negative since admission with aggressive diuresis; breathing continues to slowly improve as does swelling/edema (but swelling/edema was quite severe on admission); no new issues or problems to report; no events overnight or earlier this AM. Exam Narrative: Exam Narrative: General: WD/WN male in NAD Heart: normal S1 and S2; no rub Lungs: decreased breath sounds at bases Abdomen: soft, nontender, nondistended, positive bowel sounds Extremities: no cyanosis or clubbing; 1 - 2+ edema (UEs, LEs, abdomen) Skin: warm and intact Objective Data Vital Signs Vital Signs: Vital Signs Temp Pulse Resp BP Pulse Ox 02/20/21 08:44 72 20
--- NOTE | 2021-02-20 13:55 | PM.IMPN ---
Progress Note: A&P Assessment and Plan (1) Acute respiratory failure: Qualifiers: Respiratory failure complication: unspecified whether with hypoxia or hypercapnia Qualified Code(s): J96.00 - Acute respiratory failure, unspecified whether with hypoxia or hypercapnia Code(s): J96.00 - Acute respiratory failure, unspecified whether with hypoxia or hypercapnia Status: Acute Assessment and Plan: BiPAP p.r.n. wean patient off oxygen as tolerated, continue current management IMPROVED (2) Abnormal chest x-ray: Code(s): R93.89 - Abnormal findings on diagnostic imaging of other specified body structures Status: Acute Assessment and Plan: treat pneumonia, and CHF continue with IV antibiotics (3) Combined congestive systolic and diastolic heart failure: Code(s): I50.40 - Unspecified combined systolic (congestive) and diastolic (congestive) heart failure Status: Acute Assessment and Plan: Lasix prn consult noted. Continue current treatment (4) Insulin dependent diabetes mellitus: Status: Chronic Assessment and Plan: monitor blood sugar (5) Anemia in chronic illness: Code(s): D63.8 - Anemia in other chronic diseases classified elsewhere Status: Acute Assessment and Plan: Hemoglobin and hematocrit are stable and will be monitored. (6) Chronic kidney disease: Code(s): N18.9 - Chronic kidney disease, unspecified Status: Chronic Assessment and Plan: Monitor closely while diuresing. Additional Plan hydralazine p.r.n. for systolic of 150 or above will continue with IV antibiotics. Monitor culture, x-ray and electrolytes. 02/18/2021: Case discussed with family in detail. Agree with current plan of care and treatment. Will continue with antibiotic and diuresis. Cardiology input noted. Subjective Date/time seen: 02/20/21 13:55 Interval history: shortness of breath is better, patient on BiPAP patient with hypertension today Review of Systems Review of Systems: All systems reviewed & are unremarkable except as noted in HPI and below ( the history and physical exam.) Exam Narrative: Exam Narrative: sitting in bed Const: General: cooperative, no acute distress and ill appearing chronically Nutritional Appearance: average body habitus Orientation/consciousness: patient oriented x3 HENMT: Head: normal to inspection Ears: hearing grossly normal bilaterally Face and sinus: normal facial exam Eyes: General: appearance normal, both eyes and all related structures Pupils: Equal, round and reactive pupils present EOM: EOMs intact bilaterally Neck: Neck: normal visual inspection Thyroid: thyroid normal Lymphatic: no lymphadenopathy noted Chest: Chest palpation & inspection: normal inspection of the chest Resp: Effort & Inspection: normal respiratory effort Auscultation: clear to auscultation bilaterally Cardio: Jugular venous distension: no JVD Rate: regular rate Rhythm: regular rhythm Heart sounds: S1 normal heart sound present and S2 normal heart sound present GI: Inspection: normal to inspection and non-distended : General: Yes deferred Skin: Rashes: no rashes Wounds: no wounds Neuro: General: patient oriented x3 and CN's II-XI intact bilaterally Cranial nerves: Yes CN's II-XII intact bilaterally and Yes Equal, round and reactive pupils present Cognition (Neuro): normal cognition Speech: normal speech Gait exam (Neuro): Normal gait present Motor exam (neuro): 5/5 motor strength present throughout Extrem: General: normal to inspection, full ROM, no joint enlargement and no pedal edema Other: right below-knee amputation Objective Data Vital Signs Vital Signs: Vital Signs - 24 hr 02/19/21 13:57 02/19/21 14:00 02/19/21 16:00 Temperature Pulse Rate 91 93 Respiratory Rate 29 H Blood Pressure 143/72 H Pulse Oximetry 98 100 02/19/21 18:30 0
--- NOTE | 2021-02-20 14:17 | PCNSR ---
On 02/20/21, the student, Lyly Acevedo, provided care and completed [facility] documentation on this patient. I have reviewed the student's documentation and agree with the findings.
[2021-02-20 15:44] LABS: Basophils Absolute Auto 0.1 K/mm3 (0.0-0.1); Basophils Percent Auto 0.6 % (0.2-1.2); Eosinophils Absolute Auto 0.6 K/mm3 (0-0.3); Eosinophils Percent Auto 7.1 % (0-4.4); Hematocrit 30.9 % (42.0-52.0); Hemoglobin 9.3 g/dL (14.0-18.0); Immature Granulocyte Absolute 0.03 K/mm3 (0.00-0.031); Immature Granulocyte Percent A 0.4 % (0-0.5); Lymphocytes Percent Auto 11.8 % (18.3-44.2); Mean Corpuscular HGB Conc 30.1 g/dl (32-36); Mean Corpuscular Volume 93.1 fl (80-100); Mean Platelet Volume 10.7 fl (7.4-10.4); Monocytes Absolute Auto 0.8 K/mm3 (0.1-0.6); Monocytes Percent Auto 9.9 % (2.6-8.5); Neutrophils Absolute Auto 5.9 K/mm3 (1.3-6.7); Neutrophils Percent Auto 70.2 % (45.5-73.1); Platelet Count Result 290 k/mm3 (150-375); Red Blood Count 3.32 M/mm3 (4.6-6.20); Red Cell Distribution Width 14.6 % (11.5-14.5); White Blood Count 8.5 K/mm3 (4.5-10.0)
[2021-02-20 15:53] LABS: Anion Gap 5 mmol/L (8-16); Blood Urea Nitrogen 43 mg/dL (9-20); Calcium 8.4 mg/dL (8.4-10.2); Carbon Dioxide 36 mmol/L (22-30); Chloride 102 mmol/L (98-107); Estimated CRCL calculation 44 ml/min; Estimated Glomerular Filt Rate 38; Glucose 165 mg/dL (75-110); Potassium 3.9 mmol/L (3.4-5.0); Sodium 143 mmol/L (137-145)
[2021-02-20 17:27] LABS: Glucose Point of Care 182 mg/dl (65-105)
[2021-02-20] MEDS: acetaZOLAMIDE TAB 250 MG TABLET PO (17:42)
[2021-02-20 20:42] LABS: Glucose Point of Care 234 mg/dl (65-105)
[2021-02-20] MEDS: EPOETIN ALFA-EPBX 10,000 UNITS/ML VIAL 10000 UNITS SUB-Q (23:03)
[2021-02-21] VITALS (15 sets, daily range): BP systolic 150–151; BP diastolic 63–74; PULSE 74–87; RESP 14–24; TEMP 36.1–36.6; O2SAT 94–99
[2021-02-21] MEDS: ACETAMINOPHEN 325 MG TABLET 650 MG PO (01:21)
[2021-02-21] MEDS: IPRATROPIUM BR 0.02% INH SOLN 0.5 MG/2.5 ML VIAL INHALATION ×4 (02:39→20:22)
[2021-02-21] MEDS: ALBUTEROL SULFATE NEB 2.5 MG/0.5 ML INH INHALATION ×4 (02:39→20:22)
[2021-02-21 07:35] LABS: Glucose Point of Care 150 mg/dl (65-105)
[2021-02-21 07:40] LABS: Albumin Level 2.9 g/dL (3.5-5.1); Anion Gap 5 mmol/L (8-16); Blood Urea Nitrogen 37 mg/dL (9-20); Calcium 8.4 mg/dL (8.4-10.2); Carbon Dioxide 36 mmol/L (22-30); Chloride 101 mmol/L (98-107); Estimated CRCL calculation 40 ml/min; Estimated Glomerular Filt Rate 34; Glucose 155 mg/dL (75-110); Phosphorus 4.1 mg/dL (2.5-4.5); Potassium 3.8 mmol/L (3.4-5.0); Sodium 142 mmol/L (137-145)
[2021-02-21 07:50] LABS: Basophils Percent Auto 0.5 % (0.2-1.2); Eosinophils Absolute Auto 0.6 K/mm3 (0-0.3); Hematocrit 32.7 % (42.0-52.0); Hemoglobin 9.6 g/dL (14.0-18.0); Immature Granulocyte Absolute 0.03 K/mm3 (0.00-0.031); Immature Granulocyte Percent A 0.4 % (0-0.5); Lymphocytes Absolute Auto 1.13 K/mm3 (0.9-3.2); Lymphocytes Percent Auto 13.6 % (18.3-44.2); Mean Corpuscular HGB Conc 29.4 g/dl (32-36); Mean Corpuscular Hemoglobin 27.2 pg (26-34); Mean Corpuscular Volume 92.6 fl (80-100); Mean Platelet Volume 11.3 fl (7.4-10.4); Monocytes Absolute Auto 0.7 K/mm3 (0.1-0.6); Monocytes Percent Auto 8.4 % (2.6-8.5); Neutrophils Absolute Auto 5.8 K/mm3 (1.3-6.7); Neutrophils Percent Auto 70.1 % (45.5-73.1); Platelet Count Result 301 k/mm3 (150-375); Red Blood Count 3.53 M/mm3 (4.6-6.20); Red Cell Distribution Width 14.4 % (11.5-14.5); White Blood Count 8.3 K/mm3 (4.5-10.0)
[2021-02-21 08:54] LABS: Anisocytosis 1+ (NORMAL); Hypochromasia 1+ (NORMAL); Platelet Estimate Adequate (Adequate)
[2021-02-21] MEDS: amLODIPine BESYLATE 5 MG TABLET 10 MG PO (09:12)
[2021-02-21] MEDS: ISOSORBIDE MONONITRATE 60 MG TAB.ER.24H PO (09:12)
[2021-02-21] MEDS: METOPROLOL TARTRATE 50 MG TAB PO ×2 (09:12→20:50)
[2021-02-21] MEDS: acetaZOLAMIDE TAB 250 MG TABLET PO (09:13)
[2021-02-21] MEDS: SILVERGEL (ELTA) 45 ML 1 APPLIC TOPICAL (09:13)
[2021-02-21] MEDS: BUMETANIDE INJ 2.5 MG/10 ML VIAL 2 MG IV PUSH (09:13)
--- NOTE | 2021-02-21 11:33 | PM.PNNEP ---
Progress Note: A&P Assessment and Plan (1) Chronic kidney disease: Code(s): N18.9 - Chronic kidney disease, unspecified Status: Chronic Assessment and Plan: unclear what true baseline creatinine is... on last admission, it had been relatively stable around 3.0mg/dl it acutely krystle due to presumed renal hypoperfusion in the setting of an acute GI bleed by the time of discharge from [facility] in [place], his creatinine was down to 2.3mg/dl creatinine down to 1.9mg/dl on admission here -- however, this could be a dilutional value given his fluid overload creatinine stable with diuresis -- likely a component of renal venous hypertension +/- nephrosarca being relieved with diuresis(?) renal biopsy on last hospitalization consistently mainly with diabetic nephropathy follow trend of kidney function with diuresis (2) Anasarca: Code(s): R60.1 - Generalized edema Status: Acute Assessment and Plan: partly related to nephrotic range proteinuria and nephrotic syndrome along with heart failure s/p trial of IV albumin continue IV bumex follow I/O's and exam suspect he will always have some degree of edema/swelling in general almost 18L negative since admission.... will probably try to switch to oral diuretics tomorrow (3) Acute respiratory failure: Qualifiers: Respiratory failure complication: unspecified whether with hypoxia or hypercapnia Qualified Code(s): J96.00 - Acute respiratory failure, unspecified whether with hypoxia or hypercapnia Code(s): J96.00 - Acute respiratory failure, unspecified whether with hypoxia or hypercapnia Status: Acute Assessment and Plan: due to volume overload and possible pneumonia BiPAP support PRN diuresis and antibiotics add acetazolamide for a few doses given rising CO2 level follow respiratory status (4) Combined congestive systolic and diastolic heart failure: Code(s): I50.40 - Unspecified combined systolic (congestive) and diastolic (congestive) heart failure Status: Acute Assessment and Plan: as noted by evaluation here on last hospitalization acute exacerbation noted on this admission complicated by noncompliance (no fluid restriction and unclear if he was on/taking diuretic therapy) follow I/Os, daily weights, and exam I worry this may be a recurring problem.... (5) Pneumonia: Code(s): J18.9 - Pneumonia, unspecified organism Status: Acute Assessment and Plan: as suggested by admission imaging follow cultures on antibiotics (6) Anemia: Code(s): D64.9 - Anemia, unspecified Status: Acute Assessment and Plan: likely related to CKD and recent GI bleed follow trend of H/H on Epogen (7) Hypertension: Code(s): I10 - Essential (primary) hypertension Status: Acute Assessment and Plan: presumably should improve with diuresis/fluid removal would add DEMARCUS or ARB following diuresis/close to discharge to help with proteinuria follow trend of hemodynamics (8) Diabetes: Code(s): E11.9 - Type 2 diabetes mellitus without complications Status: Chronic Assessment and Plan: poor control at baseline follow accuchecks glycemic control Will continue to follow. Subjective Date/time seen: 02/21/21 11:33 Respiratory status/breathing continues to improve with ongoing therapy; weaned down to 1L oxygen by nasal cannula; issues with rising BP noted; continues to make good urine output with IV diuretics with relative stability in renal function. Exam Narrative: Exam Narrative: General: WD/WN male in NAD Heart: normal S1 and S2; no rub Lungs: decreased breath sounds at bases Abdomen: soft, nontender, nondistended, positive bowel sounds Extremities: no cyanosis or clubbing; 1 - 2+ edema (UEs, LEs, abdomen) Skin: no rash or nodules Objective Data Vital Signs Vital Signs: Vital Signs Tem
--- NOTE | 2021-02-21 11:33 | P.PNNP_ITS ---
Progress Note: A&P Assessment and Plan (1) Chronic kidney disease: Code(s): N18.9 - Chronic kidney disease, unspecified Status: Chronic Assessment and Plan: * unclear what true baseline creatinine is... * on last admission, it had been relatively stable around 3.0mg/dl * it acutely krystle due to presumed renal hypoperfusion in the setting of an acute GI bleed * by the time of discharge from [facility] in [place], his creatinine was down to 2.3mg/dl * creatinine down to 1.9mg/dl on admission here -- however, this could be a dilutional value given his fluid overload * creatinine stable with diuresis -- likely a component of renal venous hypertension +/- nephrosarca being relieved with diuresis(?) * renal biopsy on last hospitalization consistently mainly with diabetic nephropathy * follow trend of kidney function with diuresis (2) Anasarca: Code(s): R60.1 - Generalized edema Status: Acute Assessment and Plan: * partly related to nephrotic range proteinuria and nephrotic syndrome along with heart failure * s/p trial of IV albumin * continue IV bumex * follow I/O's and exam * suspect he will always have some degree of edema/swelling in general * almost 18L negative since admission.... * will probably try to switch to oral diuretics tomorrow (3) Acute respiratory failure: Qualifiers: Respiratory failure complication: unspecified whether with hypoxia or hypercapnia Qualified Code(s): J96.00 - Acute respiratory failure, unspecified whether with hypoxia or hypercapnia Code(s): J96.00 - Acute respiratory failure, unspecified whether with hypoxia or hypercapnia Status: Acute Assessment and Plan: * due to volume overload and possible pneumonia * BiPAP support PRN * diuresis and antibiotics * add acetazolamide for a few doses given rising CO2 level * follow respiratory status (4) Combined congestive systolic and diastolic heart failure: Code(s): I50.40 - Unspecified combined systolic (congestive) and diastolic (congestive) heart failure Status: Acute Assessment and Plan: * as noted by evaluation here on last hospitalization * acute exacerbation noted on this admission * complicated by noncompliance (no fluid restriction and unclear if he was on/taking diuretic therapy) * follow I/Os, daily weights, and exam * I worry this may be a recurring problem.... (5) Pneumonia: Code(s): J18.9 - Pneumonia, unspecified organism Status: Acute Assessment and Plan: * as suggested by admission imaging * follow cultures * on antibiotics (6) Anemia: Code(s): D64.9 - Anemia, unspecified Status: Acute Assessment and Plan: * likely related to CKD and recent GI bleed * follow trend of H/H * on Epogen (7) Hypertension: Code(s): I10 - Essential (primary) hypertension Status: Acute Assessment and Plan: * presumably should improve with diuresis/fluid removal * would add DEMARCUS or ARB following diuresis/close to discharge to help with proteinuria * follow trend of hemodynamics (8) Diabetes: Code(s): E11.9 - Type 2 diabetes mellitus without complications Status: Chronic Assessment and Plan: * poor control at baseline * follow accuchecks * glycemic control Will continue to follow. Subjective Date/time seen: 02/21/21 11:33 Respiratory status/breathing continues to improve with ongoing therapy; weaned down to 1L oxygen by nasal cannula; issues with rising B
[2021-02-21 12:11] LABS: Glucose Point of Care 196 mg/dl (65-105)
--- NOTE | 2021-02-21 15:26 | PM.IMPN ---
Progress Note: A&P Assessment and Plan (1) Acute respiratory failure: Qualifiers: Respiratory failure complication: unspecified whether with hypoxia or hypercapnia Qualified Code(s): J96.00 - Acute respiratory failure, unspecified whether with hypoxia or hypercapnia Code(s): J96.00 - Acute respiratory failure, unspecified whether with hypoxia or hypercapnia Status: Acute Assessment and Plan: BiPAP p.r.n. wean patient off oxygen as tolerated, continue current management IMPROVED (2) Abnormal chest x-ray: Code(s): R93.89 - Abnormal findings on diagnostic imaging of other specified body structures Status: Acute Assessment and Plan: treat pneumonia, and CHF continue with IV antibiotics WILL DISCONTINUE ANTIBIOTICS CULTURES HAVE REMAINED NEGATIVE (3) Combined congestive systolic and diastolic heart failure: Code(s): I50.40 - Unspecified combined systolic (congestive) and diastolic (congestive) heart failure Status: Acute Assessment and Plan: Lasix prn consult noted. Continue current treatment PATIENT APPEARS TO BE EUVOLEMIC (4) Insulin dependent diabetes mellitus: Status: Chronic Assessment and Plan: monitor blood sugar INSULIN SLIDING SCALE NEEDED (5) Anemia in chronic illness: Code(s): D63.8 - Anemia in other chronic diseases classified elsewhere Status: Acute Assessment and Plan: Hemoglobin and hematocrit are stable. CONTINUE TO MONITOR (6) Chronic kidney disease: Code(s): N18.9 - Chronic kidney disease, unspecified Status: Chronic Assessment and Plan: Monitor closely while diuresing. Subjective Date/time seen: 02/21/21 15:26 I FEEL MUCH BETTER Interval history: BIPAP AT NIGHTTIME CURRENTLY ON 1 L OF SUPPLEMENTAL OXYGEN BY NASAL CANNULA CALLED NIECE AND SISTER TODAY AND GAVE BRIEF UPDATE ABOUT PATIENT'S CONDITION AND NEARING TO DISCHARGE Review of Systems Review of Systems: All systems reviewed & are unremarkable except as noted in HPI and below ( the history and physical exam.) ROS unobtainable: Yes unobtainable due to medical condition and other ( Limited due to BiPAP and medical condition.) Constitutional: Constitutional: Reports as per HPI, Reports no additional constitutional complaints, Reports fatigue, Reports malaise and Reports weakness Eyes: Eyes: Reports as per HPI and Reports no additional eye complaints ENT: Reports system reviewed and no additional complaints, except as documented and Reports as per HPI Cardiovascular: Cardiovascular: Reports as per HPI, Reports no additional cardiovascular complaints, Denies chest pain, Reports pedal edema, Reports edema, Reports leg edema, Denies palpitations, Denies dyspnea and Reports dyspnea on exertion Respiratory: Respiratory: Reports as per HPI, Reports no additional respiratory complaints, Reports cough, Denies hemoptysis, Denies dyspnea and Reports dyspnea on exertion Gastrointestinal: Gastrointestinal: Reports as per HPI, Reports no additional gastrointestinal complaints, Reports abdominal pain, Denies melena, Reports bloating, Denies hematochezia, Reports change in stool character (constipated), Denies nausea and Denies vomiting Genitourinary: Genitourinary: Reports no additional male genitourinary complaints, Reports as per HPI, Denies hematuria, Denies dysuria and Reports scrotal swelling Musculoskeletal: Musculoskeletal: Reports no additional musculoskeletal complaints and Reports as per HPI Integumentary/Breasts: Skin/Breast: Reports system reviewed and no additional complaints, except as docu and Reports as per HPI Neurologic: Reports system reviewed and no additional complaints, except as documented, Reports as per HPI and Reports weakness Psychiatric: Psychiatric: Reports no additional psychiatric complaints and Reports as per HPI Endocrine: Endocrine: Reports no additional endocrine complaints, Repo
[2021-02-21 16:51] LABS: Glucose Point of Care 192 mg/dl (65-105)
[2021-02-21 21:01] LABS: Glucose Point of Care 235 mg/dl (65-105)
[2021-02-22] VITALS (15 sets, daily range): BP systolic 122–143; BP diastolic 55–65; PULSE 56–85; RESP 14–20; TEMP 36.2–36.7; O2SAT 93–100
[2021-02-22] MEDS: ALBUTEROL SULFATE NEB 2.5 MG/0.5 ML INH INHALATION ×4 (03:51→21:16)
[2021-02-22] MEDS: IPRATROPIUM BR 0.02% INH SOLN 0.5 MG/2.5 ML VIAL INHALATION ×4 (03:51→21:16)
[2021-02-22 06:09] LABS: Basophils Percent Auto 0.3 % (0.2-1.2); Eosinophils Absolute Auto 0.5 K/mm3 (0-0.3); Hematocrit 31.2 % (42.0-52.0); Hemoglobin 9.2 g/dL (14.0-18.0); Immature Granulocyte Absolute 0.04 K/mm3 (0.00-0.031); Immature Granulocyte Percent A 0.5 % (0-0.5); Lymphocytes Absolute Auto 1.08 K/mm3 (0.9-3.2); Lymphocytes Percent Auto 12.5 % (18.3-44.2); Mean Corpuscular HGB Conc 29.5 g/dl (32-36); Mean Corpuscular Hemoglobin 27.3 pg (26-34); Mean Corpuscular Volume 92.6 fl (80-100); Mean Platelet Volume 10.8 fl (7.4-10.4); Monocytes Absolute Auto 0.8 K/mm3 (0.1-0.6); Neutrophils Absolute Auto 6.2 K/mm3 (1.3-6.7); Neutrophils Percent Auto 71.7 % (45.5-73.1); Platelet Count Result 269 k/mm3 (150-375); Red Blood Count 3.37 M/mm3 (4.6-6.20); Red Cell Distribution Width 14.4 % (11.5-14.5); White Blood Count 8.6 K/mm3 (4.5-10.0)
[2021-02-22 06:25] LABS: Albumin Level 2.8 g/dL (3.5-5.1); Anion Gap 5 mmol/L (8-16); Blood Urea Nitrogen 34 mg/dL (9-20); Calcium 8.3 mg/dL (8.4-10.2); Carbon Dioxide 34 mmol/L (22-30); Chloride 102 mmol/L (98-107); Estimated CRCL calculation 40 ml/min; Estimated Glomerular Filt Rate 34; Glucose 170 mg/dL (75-110); Phosphorus 4.2 mg/dL (2.5-4.5); Potassium 3.7 mmol/L (3.4-5.0); Sodium 141 mmol/L (137-145)
[2021-02-22] MEDS: acetaZOLAMIDE TAB 250 MG TABLET PO (08:23)
[2021-02-22] MEDS: amLODIPine BESYLATE 5 MG TABLET 10 MG PO (08:23)
[2021-02-22] MEDS: ISOSORBIDE MONONITRATE 60 MG TAB.ER.24H PO (08:24)
[2021-02-22] MEDS: BUMETANIDE 1 MG TABLET PO ×2 (08:24→16:59)
[2021-02-22] MEDS: METOPROLOL TARTRATE 50 MG TAB PO ×2 (08:25→20:07)
[2021-02-22] MEDS: SILVERGEL (ELTA) 45 ML 1 APPLIC TOPICAL (08:26)
[2021-02-22 08:42] LABS: Glucose Point of Care 139 mg/dl (65-105)
[2021-02-22 12:54] LABS: Glucose Point of Care 167 mg/dl (65-105)
--- NOTE | 2021-02-22 12:55 | PM.IMPN ---
Progress Note: A&P Assessment and Plan (1) Acute respiratory failure: Qualifiers: Respiratory failure complication: unspecified whether with hypoxia or hypercapnia Qualified Code(s): J96.00 - Acute respiratory failure, unspecified whether with hypoxia or hypercapnia Code(s): J96.00 - Acute respiratory failure, unspecified whether with hypoxia or hypercapnia Status: Acute Assessment and Plan: BiPAP p.r.n. wean patient off oxygen as tolerated, continue current management IMPROVED CONTINUE INCENTIVE SPIROMETRY AND ACAPELLA (2) Abnormal chest x-ray: Code(s): R93.89 - Abnormal findings on diagnostic imaging of other specified body structures Status: Acute Assessment and Plan: treat pneumonia, and CHF continue with IV antibiotics WILL DISCONTINUE ANTIBIOTICS CULTURES HAVE REMAINED NEGATIVE (3) Combined congestive systolic and diastolic heart failure: Code(s): I50.40 - Unspecified combined systolic (congestive) and diastolic (congestive) heart failure Status: Acute Assessment and Plan: Lasix prn consult noted. Continue current treatment PATIENT APPEARS TO BE EUVOLEMIC (4) Insulin dependent diabetes mellitus: Status: Chronic Assessment and Plan: monitor blood sugar INSULIN SLIDING SCALE NEEDED (5) Anemia in chronic illness: Code(s): D63.8 - Anemia in other chronic diseases classified elsewhere Status: Acute Assessment and Plan: Hemoglobin and hematocrit are stable. CONTINUE TO MONITOR (6) Chronic kidney disease: Code(s): N18.9 - Chronic kidney disease, unspecified Status: Chronic Assessment and Plan: Monitor closely while diuresing. Subjective Date/time seen: 02/22/21 12:55 I FEEL MUCH BETTER Interval history: BIPAP AT NIGHTTIME CURRENTLY ON 1 L OF SUPPLEMENTAL OXYGEN BY NASAL CANNULA CALLED NIECE AND SISTER TODAY AND GAVE BRIEF UPDATE ABOUT PATIENT'S CONDITION AND NEARING TO DISCHARGE Review of Systems Review of Systems: All systems reviewed & are unremarkable except as noted in HPI and below ( the history and physical exam.) ROS unobtainable: Yes unobtainable due to medical condition and other ( Limited due to BiPAP and medical condition.) Constitutional: Constitutional: Reports as per HPI, Reports no additional constitutional complaints, Reports fatigue, Reports malaise and Reports weakness Eyes: Eyes: Reports as per HPI and Reports no additional eye complaints ENT: Reports system reviewed and no additional complaints, except as documented and Reports as per HPI Cardiovascular: Cardiovascular: Reports as per HPI, Reports no additional cardiovascular complaints, Denies chest pain, Reports pedal edema, Reports edema, Reports leg edema, Denies palpitations, Denies dyspnea and Reports dyspnea on exertion Respiratory: Respiratory: Reports as per HPI, Reports no additional respiratory complaints, Reports cough, Denies hemoptysis, Denies dyspnea and Reports dyspnea on exertion Gastrointestinal: Gastrointestinal: Reports as per HPI, Reports no additional gastrointestinal complaints, Reports abdominal pain, Denies melena, Reports bloating, Denies hematochezia, Reports change in stool character (constipated), Denies nausea and Denies vomiting Genitourinary: Genitourinary: Reports no additional male genitourinary complaints, Reports as per HPI, Denies hematuria, Denies dysuria and Reports scrotal swelling Musculoskeletal: Musculoskeletal: Reports no additional musculoskeletal complaints and Reports as per HPI Integumentary/Breasts: Skin/Breast: Reports system reviewed and no additional complaints, except as docu and Reports as per HPI Neurologic: Reports system reviewed and no additional complaints, except as documented, Reports as per HPI and Reports weakness Psychiatric: Psychiatric: Reports no additional psychiatric complaints and Reports as per HPI Endocrine: Endocrine: Repor
--- NOTE | 2021-02-22 13:17 | P.PNNP_ITS ---
Progress Note: A&P Assessment and Plan (1) Chronic kidney disease: Code(s): N18.9 - Chronic kidney disease, unspecified Status: Chronic Assessment and Plan: * unclear what true baseline creatinine is... * on last admission, it had been relatively stable around 3.0mg/dl * it acutely krystle due to presumed renal hypoperfusion in the setting of an acute GI bleed * by the time of discharge from [facility] in [place], his creatinine was down to 2.3mg/dl * creatinine down to 1.9mg/dl on admission here -- however, this could be a dilutional value given his fluid overload * creatinine stable with diuresis -- likely a component of renal venous hypertension +/- nephrosarca being relieved with diuresis(?) * renal biopsy on last hospitalization consistently mainly with diabetic nephropathy * follow trend of kidney function with diuresis (2) Anasarca: Code(s): R60.1 - Generalized edema Status: Acute Assessment and Plan: * partly related to nephrotic range proteinuria and nephrotic syndrome along with heart failure * s/p trial of IV albumin * continue IV bumex * follow I/O's and exam * suspect he will always have some degree of edema/swelling in general * almost 18L negative since admission.... * switch to oral diuretics today (3) Acute respiratory failure: Qualifiers: Respiratory failure complication: unspecified whether with hypoxia or hypercapnia Qualified Code(s): J96.00 - Acute respiratory failure, unspecified whether with hypoxia or hypercapnia Code(s): J96.00 - Acute respiratory failure, unspecified whether with hypoxia or hypercapnia Status: Acute Assessment and Plan: * due to volume overload and possible pneumonia * BiPAP support PRN * diuresis and antibiotics * add acetazolamide for a few doses given rising CO2 level * follow respiratory status (4) Combined congestive systolic and diastolic heart failure: Code(s): I50.40 - Unspecified combined systolic (congestive) and diastolic (congestive) heart failure Status: Acute Assessment and Plan: * as noted by evaluation here on last hospitalization * acute exacerbation noted on this admission * complicated by noncompliance (no fluid restriction and unclear if he was on/taking diuretic therapy) * follow I/Os, daily weights, and exam * I worry this may be a recurring problem.... (5) Pneumonia: Code(s): J18.9 - Pneumonia, unspecified organism Status: Acute Assessment and Plan: * as suggested by admission imaging * follow cultures * on antibiotics (6) Anemia: Code(s): D64.9 - Anemia, unspecified Status: Acute Assessment and Plan: * likely related to CKD and recent GI bleed * follow trend of H/H * on Epogen (7) Hypertension: Code(s): I10 - Essential (primary) hypertension Status: Acute Assessment and Plan: * presumably should improve with diuresis/fluid removal * would add DEMARCUS or ARB following diuresis/close to discharge to help with proteinuria * follow trend of hemodynamics (8) Diabetes: Code(s): E11.9 - Type 2 diabetes mellitus without complications Status: Chronic Assessment and Plan: * poor control at baseline * follow accuchecks * glycemic control Will continue to follow. Subjective Date/time seen: 02/22/21 13:17 Overall, he states he feels significantly better since admission; s/p aggressive diuresis with stability in renal function and almost 18 liters of fluid removal
--- NOTE | 2021-02-22 13:17 | PM.PNNEP ---
Progress Note: A&P Assessment and Plan (1) Chronic kidney disease: Code(s): N18.9 - Chronic kidney disease, unspecified Status: Chronic Assessment and Plan: unclear what true baseline creatinine is... on last admission, it had been relatively stable around 3.0mg/dl it acutely krystle due to presumed renal hypoperfusion in the setting of an acute GI bleed by the time of discharge from [facility] in [place], his creatinine was down to 2.3mg/dl creatinine down to 1.9mg/dl on admission here -- however, this could be a dilutional value given his fluid overload creatinine stable with diuresis -- likely a component of renal venous hypertension +/- nephrosarca being relieved with diuresis(?) renal biopsy on last hospitalization consistently mainly with diabetic nephropathy follow trend of kidney function with diuresis (2) Anasarca: Code(s): R60.1 - Generalized edema Status: Acute Assessment and Plan: partly related to nephrotic range proteinuria and nephrotic syndrome along with heart failure s/p trial of IV albumin continue IV bumex follow I/O's and exam suspect he will always have some degree of edema/swelling in general almost 18L negative since admission.... switch to oral diuretics today (3) Acute respiratory failure: Qualifiers: Respiratory failure complication: unspecified whether with hypoxia or hypercapnia Qualified Code(s): J96.00 - Acute respiratory failure, unspecified whether with hypoxia or hypercapnia Code(s): J96.00 - Acute respiratory failure, unspecified whether with hypoxia or hypercapnia Status: Acute Assessment and Plan: due to volume overload and possible pneumonia BiPAP support PRN diuresis and antibiotics add acetazolamide for a few doses given rising CO2 level follow respiratory status (4) Combined congestive systolic and diastolic heart failure: Code(s): I50.40 - Unspecified combined systolic (congestive) and diastolic (congestive) heart failure Status: Acute Assessment and Plan: as noted by evaluation here on last hospitalization acute exacerbation noted on this admission complicated by noncompliance (no fluid restriction and unclear if he was on/taking diuretic therapy) follow I/Os, daily weights, and exam I worry this may be a recurring problem.... (5) Pneumonia: Code(s): J18.9 - Pneumonia, unspecified organism Status: Acute Assessment and Plan: as suggested by admission imaging follow cultures on antibiotics (6) Anemia: Code(s): D64.9 - Anemia, unspecified Status: Acute Assessment and Plan: likely related to CKD and recent GI bleed follow trend of H/H on Epogen (7) Hypertension: Code(s): I10 - Essential (primary) hypertension Status: Acute Assessment and Plan: presumably should improve with diuresis/fluid removal would add DEMARCUS or ARB following diuresis/close to discharge to help with proteinuria follow trend of hemodynamics (8) Diabetes: Code(s): E11.9 - Type 2 diabetes mellitus without complications Status: Chronic Assessment and Plan: poor control at baseline follow accuchecks glycemic control Will continue to follow. Subjective Date/time seen: 02/22/21 13:17 Overall, he states he feels significantly better since admission; s/p aggressive diuresis with stability in renal function and almost 18 liters of fluid removal; switched to oral diuretics today; no events/issues overnight or earlier this AM. Exam Narrative: Exam Narrative: General: WD/WN male in NAD Heart: normal S1 and S2; no rub Lungs: decreased breath sounds at bases Abdomen: soft, nontender, nondistended, positive bowel sounds Extremities: no cyanosis or clubbing; 1 - 2+ edema (UEs, LEs, abdomen) Skin: no rash or nodules Objective Data Vital Signs Vital Signs: Vital Signs Temp Pulse Resp BP Pulse
[2021-02-22 16:58] LABS: Glucose Point of Care 155 mg/dl (65-105)
[2021-02-22 20:46] LABS: Glucose Point of Care 196 mg/dl (65-105)
[2021-02-23] VITALS (12 sets, daily range): BP systolic 135–144; BP diastolic 64–65; PULSE 61–86; RESP 16–20; TEMP 36.6–36.9; O2SAT 95–99
[2021-02-23] MEDS: ALBUTEROL SULFATE NEB 2.5 MG/0.5 ML INH INHALATION ×4 (03:03→20:08)
[2021-02-23] MEDS: IPRATROPIUM BR 0.02% INH SOLN 0.5 MG/2.5 ML VIAL INHALATION ×4 (03:03→20:08)
[2021-02-23 06:11] LABS: Basophils Absolute Auto 0.1 K/mm3 (0.0-0.1); Basophils Percent Auto 0.5 % (0.2-1.2); Eosinophils Absolute Auto 0.5 K/mm3 (0-0.3); Eosinophils Percent Auto 4.8 % (0-4.4); Hematocrit 29.9 % (42.0-52.0); Hemoglobin 8.9 g/dL (14.0-18.0); Immature Granulocyte Absolute 0.03 K/mm3 (0.00-0.031); Immature Granulocyte Percent A 0.3 % (0-0.5); Immature Platelet Fraction Pct 2.9 % (0.9-11.2); Lymphocytes Absolute Auto 1.09 K/mm3 (0.9-3.2); Lymphocytes Percent Auto 11.3 % (18.3-44.2); Mean Corpuscular HGB Conc 29.8 g/dl (32-36); Mean Corpuscular Hemoglobin 27.9 pg (26-34); Mean Corpuscular Volume 93.7 fl (80-100); Mean Platelet Volume 11.3 fl (7.4-10.4); Monocytes Absolute Auto 0.7 K/mm3 (0.1-0.6); Neutrophils Absolute Auto 7.4 K/mm3 (1.3-6.7); Neutrophils Percent Auto 76.1 % (45.5-73.1); Platelet Count Result 305 k/mm3 (150-375); Red Blood Count 3.19 M/mm3 (4.6-6.20); Red Cell Distribution Width 14.3 % (11.5-14.5); White Blood Count 9.7 K/mm3 (4.5-10.0)
[2021-02-23 07:06] LABS: Albumin Level 2.7 g/dL (3.5-5.1); Anion Gap 7 mmol/L (8-16); Blood Urea Nitrogen 35 mg/dL (9-20); Calcium 8.1 mg/dL (8.4-10.2); Carbon Dioxide 30 mmol/L (22-30); Chloride 105 mmol/L (98-107); Estimated CRCL calculation 38 ml/min; Estimated Glomerular Filt Rate 32; Glucose 190 mg/dL (75-110); Phosphorus 3.8 mg/dL (2.5-4.5); Potassium 3.6 mmol/L (3.4-5.0); Sodium 142 mmol/L (137-145)
[2021-02-23 07:48] LABS: Glucose Point of Care 171 mg/dl (65-105)
[2021-02-23] MEDS: BUMETANIDE 1 MG TABLET PO ×2 (08:18→18:09)
[2021-02-23] MEDS: acetaZOLAMIDE TAB 250 MG TABLET PO (08:18)
[2021-02-23] MEDS: ISOSORBIDE MONONITRATE 60 MG TAB.ER.24H PO (08:18)
[2021-02-23] MEDS: METOPROLOL TARTRATE 50 MG TAB PO ×2 (08:18→21:06)
[2021-02-23] MEDS: amLODIPine BESYLATE 5 MG TABLET 10 MG PO (08:18)
[2021-02-23] MEDS: SILVERGEL (ELTA) 45 ML 1 APPLIC TOPICAL (08:19)
[2021-02-23] MEDS: ACETAMINOPHEN 325 MG TABLET 650 MG PO (10:15)
[2021-02-23] MEDS: EPOETIN ALFA-EPBX 10,000 UNITS/ML VIAL 10000 UNITS SUB-Q (10:16)
--- NOTE | 2021-02-23 11:08 | PM.PNNEP ---
Progress Note: A&P Assessment and Plan (1) Chronic kidney disease: Code(s): N18.9 - Chronic kidney disease, unspecified Status: Chronic Assessment and Plan: At [facility], creatinine seemed to stabilize at around 2.2. creatinine down to 1.9mg/dl on admission here -- however, this could be a dilutional value given his fluid overload creatinine stable with diuresis -- likely a component of renal venous hypertension +/- nephrosarca being relieved with diuresis(?) renal biopsy on last hospitalization consistently mainly with diabetic nephropathy Creatinine seems to be doing pretty well in spite of good diuresis. (2) Anasarca: Code(s): R60.1 - Generalized edema Status: Acute Assessment and Plan: partly related to nephrotic range proteinuria and nephrotic syndrome along with heart failure . He is also on amlodipine. On oral diuretics. Blood pressure seems to be doing pretty well. (3) Acute respiratory failure: Qualifiers: Respiratory failure complication: unspecified whether with hypoxia or hypercapnia Qualified Code(s): J96.00 - Acute respiratory failure, unspecified whether with hypoxia or hypercapnia Code(s): J96.00 - Acute respiratory failure, unspecified whether with hypoxia or hypercapnia Status: Acute Assessment and Plan: due to volume overload and possible pneumonia Breathing is much better. (4) Combined congestive systolic and diastolic heart failure: Code(s): I50.40 - Unspecified combined systolic (congestive) and diastolic (congestive) heart failure Status: Acute Assessment and Plan: as noted by evaluation here on last hospitalization Worsen this time possibly due to dietary indiscretion. (5) Pneumonia: Code(s): J18.9 - Pneumonia, unspecified organism Status: Acute Assessment and Plan: as suggested by admission imaging follow cultures on antibiotics (6) Anemia: Code(s): D64.9 - Anemia, unspecified Status: Acute Assessment and Plan: likely related to CKD and recent GI bleed follow trend of H/H on Epogen He may need this as an outpatient. If so he can go to Dr. Otero (7) Hypertension: Code(s): I10 - Essential (primary) hypertension Status: Acute Assessment and Plan: presumably should improve with diuresis/fluid removal Blood pressure doing pretty well. Will add DEMARCUS-inhibitor and get him off the amlodipine. (8) Diabetes: Code(s): E11.9 - Type 2 diabetes mellitus without complications Status: Chronic Assessment and Plan: poor control at baseline follow accuchecks glycemic control Will continue to follow. Subjective Date/time seen: 02/23/21 11:08 Interval history: Patient feels okay today. No chest pain or shortness of breath. Exam Narrative: Exam Narrative: General: WD/WN male in NAD Heart: normal S1 and S2; no rub Lungs: Mildly decreased breath sounds at bases Abdomen: soft, nontender, nondistended, positive bowel sounds Extremities: no cyanosis or clubbing; 1 + edema (UEs, LEs, abdomen). Bandages on. Skin: no rash Objective Data Vital Signs Vital Signs: Vital Signs - 24 hr 02/22/21 13:57 02/22/21 14:00 02/22/21 14:05 Temperature 36.2 C L Pulse Rate 63 74 56 L Respiratory Rate 16 14 16 Blood Pressure 122/55 L Pulse Oximetry 97 95 02/22/21 20:07 02/22/21 21:17 02/22/21 21:19 Temperature Pulse Rate 56 L 68 68 Respiratory Rate 18 Blood Pressure Pulse Oximetry 93 02/22/21 21:24 02/22/21 22:00 02/23/21 03:04 Temperature 36.7 C Pulse Rate 66 82 61 Respiratory Rate 18 18 18 Blood Pressure 130/56 L Pulse Oximetry 95 02/23/21 03:11 02/23/21 06:00 02/23/21 08:00 Temperature 36.6 C Pulse Rate 63 80 Respiratory Rate 18 18 Blood Pressure 139/65 Pulse Oximetry 98 98 02/23/21 08:07 02/23/21 08:14 02/23/21 08:18 T
--- NOTE | 2021-02-23 11:08 | P.PNNP_ITS ---
Progress Note: A&P Assessment and Plan (1) Chronic kidney disease: Code(s): N18.9 - Chronic kidney disease, unspecified Status: Chronic Assessment and Plan: * At [facility], creatinine seemed to stabilize at around 2.2. * creatinine down to 1.9mg/dl on admission here -- however, this could be a dilutional value given his fluid overload * creatinine stable with diuresis -- likely a component of renal venous hypertension +/- nephrosarca being relieved with diuresis(?) * renal biopsy on last hospitalization consistently mainly with diabetic nephropathy * Creatinine seems to be doing pretty well in spite of good diuresis. * (2) Anasarca: Code(s): R60.1 - Generalized edema Status: Acute Assessment and Plan: * partly related to nephrotic range proteinuria and nephrotic syndrome along with heart failure . He is also on amlodipine. * On oral diuretics. * Blood pressure seems to be doing pretty well. (3) Acute respiratory failure: Qualifiers: Respiratory failure complication: unspecified whether with hypoxia or hypercapnia Qualified Code(s): J96.00 - Acute respiratory failure, unspecified whether with hypoxia or hypercapnia Code(s): J96.00 - Acute respiratory failure, unspecified whether with hypoxia or hypercapnia Status: Acute Assessment and Plan: * due to volume overload and possible pneumonia * Breathing is much better. (4) Combined congestive systolic and diastolic heart failure: Code(s): I50.40 - Unspecified combined systolic (congestive) and diastolic (congestive) heart failure Status: Acute Assessment and Plan: * as noted by evaluation here on last hospitalization * Worsen this time possibly due to dietary indiscretion. * (5) Pneumonia: Code(s): J18.9 - Pneumonia, unspecified organism Status: Acute Assessment and Plan: * as suggested by admission imaging * follow cultures * on antibiotics (6) Anemia: Code(s): D64.9 - Anemia, unspecified Status: Acute Assessment and Plan: * likely related to CKD and recent GI bleed * follow trend of H/H * on Epogen * He may need this as an outpatient. If so he can go to Dr. Otero (7) Hypertension: Code(s): I10 - Essential (primary) hypertension Status: Acute Assessment and Plan: * presumably should improve with diuresis/fluid removal * Blood pressure doing pretty well. * Will add DEMARCUS-inhibitor and get him off the amlodipine. (8) Diabetes: Code(s): E11.9 - Type 2 diabetes mellitus without complications Status: Chronic Assessment and Plan: * poor control at baseline * follow accuchecks * glycemic control Will continue to follow. Subjective Date/time seen: 02/23/21 11:08 Interval history: Patient feels okay today. No chest pain or shortness of breath. Exam Narrative: Exam Narrative: General: WD/WN male in NAD Heart: normal S1 and S2; no rub Lungs: Mildly decreased breath sounds at bases Abdomen: soft, nontender, nondistended, positive bowel sounds Extremities: no cyanosis or clubbing; 1 + edema (UEs, LEs, abdomen). Bandages on. Skin: no rash Objective Data Vital Signs Vital Signs: Vital Signs - 24 hr 02/22/21 13:57 02/22/21 14:00 02/22/21 14:05 Temperature 36.2 C L Pulse Rate 63 74 56 L Respiratory Rate 16 14 16 Blood Pressure
--- NOTE | 2021-02-23 11:52 | PM.IMPN ---
Progress Note: A&P Assessment and Plan (1) Acute respiratory failure: Qualifiers: Respiratory failure complication: unspecified whether with hypoxia or hypercapnia Qualified Code(s): J96.00 - Acute respiratory failure, unspecified whether with hypoxia or hypercapnia Code(s): J96.00 - Acute respiratory failure, unspecified whether with hypoxia or hypercapnia Status: Acute Assessment and Plan: ON ROOM AIR TODAY BiPAP p.r.n. IMPROVED CONTINUE INCENTIVE SPIROMETRY AND ACAPELLA (2) Abnormal chest x-ray: Code(s): R93.89 - Abnormal findings on diagnostic imaging of other specified body structures Status: Acute Assessment and Plan: WILL DISCONTINUE ANTIBIOTICS CULTURES HAVE REMAINED NEGATIVE CONTINUE TO MONITOR (3) Combined congestive systolic and diastolic heart failure: Code(s): I50.40 - Unspecified combined systolic (congestive) and diastolic (congestive) heart failure Status: Acute Assessment and Plan: Lasix prn consult noted. Continue current treatment PATIENT APPEARS TO BE EUVOLEMIC (4) Insulin dependent diabetes mellitus: Status: Chronic Assessment and Plan: monitor blood sugar INSULIN SLIDING SCALE NEEDED (5) Anemia in chronic illness: Code(s): D63.8 - Anemia in other chronic diseases classified elsewhere Status: Acute Assessment and Plan: Hemoglobin and hematocrit are stable. CONTINUE TO MONITOR (6) Chronic kidney disease: Code(s): N18.9 - Chronic kidney disease, unspecified Status: Chronic Assessment and Plan: APPEARS THE PATIENT'S CREATININE IS AT HIS BASELINE FOLLOW NEPHROLOGY RECOMMENDATIONS CONTINUE TO MONITOR MONTGOMERY HAS BEEN DISCONTINUED Subjective Date/time seen: 02/23/21 11:52 I FEEL MUCH BETTER Interval history: PATIENT IS ON ROOM AIR TODAY MONTGOMERY HAS BEEN DISCONTINUED BIPAP AT NIGHTTIME CURRENTLY ON 1 L OF SUPPLEMENTAL OXYGEN BY NASAL CANNULA CALLED NIECE AND SISTER TODAY AND GAVE BRIEF UPDATE ABOUT PATIENT'S CONDITION AND NEARING TO DISCHARGE Review of Systems Review of Systems: All systems reviewed & are unremarkable except as noted in HPI and below ( the history and physical exam.) ROS unobtainable: Yes unobtainable due to medical condition and other ( Limited due to BiPAP and medical condition.) Constitutional: Constitutional: Reports as per HPI, Reports no additional constitutional complaints, Reports fatigue, Reports malaise and Reports weakness Eyes: Eyes: Reports as per HPI and Reports no additional eye complaints ENT: Reports system reviewed and no additional complaints, except as documented and Reports as per HPI Cardiovascular: Cardiovascular: Reports as per HPI, Reports no additional cardiovascular complaints, Denies chest pain, Reports pedal edema, Reports edema, Reports leg edema, Denies palpitations, Denies dyspnea and Reports dyspnea on exertion Respiratory: Respiratory: Reports as per HPI, Reports no additional respiratory complaints, Reports cough, Denies hemoptysis, Denies dyspnea and Reports dyspnea on exertion Gastrointestinal: Gastrointestinal: Reports as per HPI, Reports no additional gastrointestinal complaints, Reports abdominal pain, Denies melena, Reports bloating, Denies hematochezia, Reports change in stool character (constipated), Denies nausea and Denies vomiting Genitourinary: Genitourinary: Reports no additional male genitourinary complaints, Reports as per HPI, Denies hematuria, Denies dysuria and Reports scrotal swelling Musculoskeletal: Musculoskeletal: Reports no additional musculoskeletal complaints and Reports as per HPI Integumentary/Breasts: Skin/Breast: Reports system reviewed and no additional complaints, except as docu and Reports as per HPI Neurologic: Reports system reviewed and no additional complaints, except as documented, Reports as per HPI and Reports weakness Psychiatric: Psychiatric: Repor
[2021-02-23] MEDS: INSULIN ASPART (*BKC) 100 UNITS/ML SUB-Q (12:04)
[2021-02-23 12:10] LABS: Glucose Point of Care 224 mg/dl (65-105)
[2021-02-23 16:28] LABS: Glucose Point of Care 179 mg/dl (65-105)
[2021-02-24] VITALS (13 sets, daily range): BP systolic 123–137; BP diastolic 56–68; PULSE 57–88; RESP 14–18; TEMP 36.3–36.8; O2SAT 94–97
[2021-02-24] MEDS: IPRATROPIUM BR 0.02% INH SOLN 0.5 MG/2.5 ML VIAL INHALATION ×4 (02:16→20:24)
[2021-02-24] MEDS: ALBUTEROL SULFATE NEB 2.5 MG/0.5 ML INH INHALATION ×4 (02:17→20:24)
[2021-02-24 04:16] LABS: Glucose Point of Care 210 mg/dl (65-105)
[2021-02-24 05:37] LABS: Hematocrit 30.1 % (42.0-52.0); Mean Corpuscular HGB Conc 29.9 g/dl (32-36); Mean Corpuscular Hemoglobin 27.8 pg (26-34); Mean Corpuscular Volume 92.9 fl (80-100); Mean Platelet Volume 10.5 fl (7.4-10.4); Platelet Count Result 272 k/mm3 (150-375); Red Blood Count 3.24 M/mm3 (4.6-6.20); Red Cell Distribution Width 14.6 % (11.5-14.5)
[2021-02-24 05:49] LABS: Albumin Level 2.9 g/dL (3.5-5.1); Anion Gap 7 mmol/L (8-16); Blood Urea Nitrogen 34 mg/dL (9-20); Calcium 8.3 mg/dL (8.4-10.2); Carbon Dioxide 29 mmol/L (22-30); Chloride 106 mmol/L (98-107); Estimated CRCL calculation 38 ml/min; Estimated Glomerular Filt Rate 32; Glucose 157 mg/dL (75-110); Phosphorus 3.3 mg/dL (2.5-4.5); Potassium 3.6 mmol/L (3.4-5.0); Sodium 142 mmol/L (137-145)
[2021-02-24] MEDS: METOPROLOL TARTRATE 50 MG TAB PO ×2 (08:05→20:38)
[2021-02-24] MEDS: BUMETANIDE 1 MG TABLET PO ×2 (08:05→18:22)
[2021-02-24] MEDS: lisinopriL 20 MG TABLET PO (08:06)
[2021-02-24] MEDS: ISOSORBIDE MONONITRATE 60 MG TAB.ER.24H PO (08:06)
[2021-02-24] MEDS: SILVERGEL (ELTA) 45 ML 1 APPLIC TOPICAL (08:06)
[2021-02-24 08:08] LABS: Glucose Point of Care 148 mg/dl (65-105)
--- NOTE | 2021-02-24 08:22 | P.PNNP_ITS ---
Progress Note: A&P Assessment and Plan (1) Chronic kidney disease: Code(s): N18.9 - Chronic kidney disease, unspecified Status: Chronic Assessment and Plan: * chronic kidney disease. * Baseline creatinine is around 2.2. * Lower creatinine in the past per probably due to dilution from Volume overload * he is at his baseline now. * Okay for discharge from the kidney standpoint. (2) Anasarca: Code(s): R60.1 - Generalized edema Status: Acute Assessment and Plan: * Due to nephrosis and volume overload. He was also on amlodipine. * Now he is on lisinopril which should help by reducing proteinuria so he should have less swelling for that reason. * He is off the amlodipine which should help by reducing edema. (3) Acute respiratory failure: Qualifiers: Respiratory failure complication: unspecified whether with hypoxia or hypercapnia Qualified Code(s): J96.00 - Acute respiratory failure, unspecified whether with hypoxia or hypercapnia Code(s): J96.00 - Acute respiratory failure, unspecified whether with hypoxia or hypercapnia Status: Acute Assessment and Plan: * due to volume overload and possible pneumonia * Breathing is much better. (4) Combined congestive systolic and diastolic heart failure: Code(s): I50.40 - Unspecified combined systolic (congestive) and diastolic (congestive) heart failure Status: Acute Assessment and Plan: * as noted by evaluation here on last hospitalization * Volume overload this time possibly due to dietary indiscretion. (5) Pneumonia: Code(s): J18.9 - Pneumonia, unspecified organism Status: Acute Assessment and Plan: * as suggested by admission imaging * follow cultures * on antibiotics (6) Anemia: Code(s): D64.9 - Anemia, unspecified Status: Acute Assessment and Plan: * likely related to CKD and recent GI bleed * follow trend of H/H * on Epogen * He may need this as an outpatient. If so he can go to Dr. Otero (7) Hypertension: Code(s): I10 - Essential (primary) hypertension Status: Acute Assessment and Plan: * presumably should improve with diuresis/fluid removal * Blood pressure doing pretty well. * Will add DEMARCUS-inhibitor and get him off the amlodipine. (8) Diabetes: Code(s): E11.9 - Type 2 diabetes mellitus without complications Status: Chronic Assessment and Plan: * poor control at baseline * follow accuchecks * glycemic control Will continue to follow. Subjective Date/time seen: 02/24/21 08:22 Interval history: Patient feels okay today. no chest pain. No shortness of breath. No blood in his stools. Exam Narrative: Exam Narrative: General: WD/WN male in NAD Heart: normal S1 and S2; no rub or gallop Lungs: Mildly decreased breath sounds at bases Abdomen: soft, nontender, nondistended, positive bowel sounds Extremities: no cyanosis or clubbing; 1 + edema (UEs, LEs, abdomen). Bandages on. Skin: no rash Or subcu nodules Objective Data Vital Signs Vital Signs: Vital Signs - 24 hr 02/23/21 14:00 02/23/21 14:03 02/23/21 14:10 Temperature 36.9 C Pulse Rate 73 68 70 Respiratory Rate 16 18 18 Blood Pressure 144/65 H Pulse Oximetry 99 02/23/21 20:09 02/23/21 21:49 02/24/21 02:1
--- NOTE | 2021-02-24 08:22 | PM.PNNEP ---
Progress Note: A&P Assessment and Plan (1) Chronic kidney disease: Code(s): N18.9 - Chronic kidney disease, unspecified Status: Chronic Assessment and Plan: chronic kidney disease. Baseline creatinine is around 2.2. Lower creatinine in the past per probably due to dilution from Volume overload he is at his baseline now. Okay for discharge from the kidney standpoint. (2) Anasarca: Code(s): R60.1 - Generalized edema Status: Acute Assessment and Plan: Due to nephrosis and volume overload. He was also on amlodipine. Now he is on lisinopril which should help by reducing proteinuria so he should have less swelling for that reason. He is off the amlodipine which should help by reducing edema. (3) Acute respiratory failure: Qualifiers: Respiratory failure complication: unspecified whether with hypoxia or hypercapnia Qualified Code(s): J96.00 - Acute respiratory failure, unspecified whether with hypoxia or hypercapnia Code(s): J96.00 - Acute respiratory failure, unspecified whether with hypoxia or hypercapnia Status: Acute Assessment and Plan: due to volume overload and possible pneumonia Breathing is much better. (4) Combined congestive systolic and diastolic heart failure: Code(s): I50.40 - Unspecified combined systolic (congestive) and diastolic (congestive) heart failure Status: Acute Assessment and Plan: as noted by evaluation here on last hospitalization Volume overload this time possibly due to dietary indiscretion. (5) Pneumonia: Code(s): J18.9 - Pneumonia, unspecified organism Status: Acute Assessment and Plan: as suggested by admission imaging follow cultures on antibiotics (6) Anemia: Code(s): D64.9 - Anemia, unspecified Status: Acute Assessment and Plan: likely related to CKD and recent GI bleed follow trend of H/H on Epogen He may need this as an outpatient. If so he can go to Dr. Otero (7) Hypertension: Code(s): I10 - Essential (primary) hypertension Status: Acute Assessment and Plan: presumably should improve with diuresis/fluid removal Blood pressure doing pretty well. Will add DEMARCUS-inhibitor and get him off the amlodipine. (8) Diabetes: Code(s): E11.9 - Type 2 diabetes mellitus without complications Status: Chronic Assessment and Plan: poor control at baseline follow accuchecks glycemic control Will continue to follow. Subjective Date/time seen: 02/24/21 08:22 Interval history: Patient feels okay today. no chest pain. No shortness of breath. No blood in his stools. Exam Narrative: Exam Narrative: General: WD/WN male in NAD Heart: normal S1 and S2; no rub or gallop Lungs: Mildly decreased breath sounds at bases Abdomen: soft, nontender, nondistended, positive bowel sounds Extremities: no cyanosis or clubbing; 1 + edema (UEs, LEs, abdomen). Bandages on. Skin: no rash Or subcu nodules Objective Data Vital Signs Vital Signs: Vital Signs - 24 hr 02/23/21 14:00 02/23/21 14:03 02/23/21 14:10 Temperature 36.9 C Pulse Rate 73 68 70 Respiratory Rate 16 18 18 Blood Pressure 144/65 H Pulse Oximetry 99 02/23/21 20:09 02/23/21 21:49 02/24/21 02:17 Temperature 36.7 C Pulse Rate 73 81 76 Respiratory Rate 18 20 18 Blood Pressure 135/64 Pulse Oximetry 95 99 02/24/21 02:25 02/24/21 06:00 Temperature 36.8 C Pulse Rate 77 88 Respiratory Rate 18 18 Blood Pressure 137/68 Pulse Oximetry 97 Intake/Output Intake/Output: Intake & Output 02/21/21 02/22/21 02/23/21 02/24/21 23:59 23:59 23:59 23:59 Intake Total 1250 1200 1440 240 Output Total 1999 9170 1225 1350 Balance -343 -1670 215 1110 Meds/Results Medications: Active Medications Generic Name Dose Route Start Last Admin Trade Name Freq PRN Reason Stop Dose Ad
--- NOTE | 2021-02-24 11:08 | PM.PNCARD ---
Progress Note: A&P Assessment and Plan (1) CHF (congestive heart failure): Code(s): I50.9 - Heart failure, unspecified Status: Acute Assessment and Plan: Acute decompensated heart failure secondary to patient's admission to noncompliance with medical therapy, LV dysfunction, acute renal failure. EF 40-45%. Possible underlying CAD given abnormal stress test with area of large severe infarct extending from the apical lateral and mid to basal anterolateral and inferolateral segments. -Continue diuresis with bumex -Lisinopril restarted -Monitor renal function (nephrology following) (2) Acute respiratory failure: Qualifiers: Respiratory failure complication: unspecified whether with hypoxia or hypercapnia Qualified Code(s): J96.00 - Acute respiratory failure, unspecified whether with hypoxia or hypercapnia Code(s): J96.00 - Acute respiratory failure, unspecified whether with hypoxia or hypercapnia Status: Acute Assessment and Plan: Resolved. On room air. (3) Acute respiratory failure with hypoxia: Code(s): J96.01 - Acute respiratory failure with hypoxia Status: Acute Assessment and Plan: As above. (4) Noncompliance: Code(s): Z91.19 - Patient's noncompliance with other medical treatment and regimen Status: Acute Assessment and Plan: Very likely a significant contributor to patient's repeat acute hospitalization. Patient is aware. (5) GLENN (acute kidney injury): Code(s): N17.9 - Acute kidney failure, unspecified Status: Acute Assessment and Plan: Acute on chronic renal failure. Nephrology following. (6) Anemia, iron deficiency: Code(s): D50.9 - Iron deficiency anemia, unspecified Status: Acute Assessment and Plan: Follow H&H, stable. Patient remains a poor candidate for antiplatelet therapy. (7) Insulin dependent diabetes mellitus: Status: Chronic Assessment and Plan: Per primary service. (8) Suspected COVID-19 virus infection: Code(s): Z20.822 - Contact with and (suspected) exposure to COVID-19 Status: Acute Assessment and Plan: COVID negative Subjective Date/time seen: 02/24/21 11:08 Interval history: Follow-up visit in this 45-year-old man with: Recent evaluation in the hospital demonstrating noninvasive evidence of ischemic cardiomyopathy. Echo and stress test suggest evidence of previous infarction, no significant ischemic burden and simple medical therapy was this was recommended. Patient not felt to be a candidate for invasive evaluation because of GI bleeding and renal failure. Patient returned to the hospital on Tuesday evening last weekend with some shortness of breath. Pattern of infiltration multiple lung villarreal. Being treated for suspected pneumonia. Patient also has extensive peripheral disease status post right lower extremity amputation. Date of service: 02/17/2021: Patient resting comfortably in bed. On high flow O2 but prefers BiPAP due to comfort. He denies any chest pain. No shortness of breath at rest. Date of service 02/18/2021: Patient is feeling ok today. His breathing is better. Now on O2 per nasal cannula. No shortness of breath. He denies chest pain. He still has significant edema. Date of service 02/19/2021: Patient is disoriented today is requiring a sitter for safety. Apparently, yesterday around 4:00 p.m. he started developing more confusion. His breathing is more labored today. He is on oxygen per nasal cannula but is being switched over to BiPAP. He denies any chest pain. Date of service 02/24/21: Doing much better. Sitting up in the chair comfortable on room air. No complaints today. Review of Systems Review of Systems: All systems reviewed & are unremarkable except as noted in HPI and below ROS unobtainable: Yes other ( Limited due to BiPAP and medical condition.) Constitutional: Angeli
[2021-02-24 12:11] LABS: Glucose Point of Care 213 mg/dl (65-105)
[2021-02-24] MEDS: INSULIN ASPART (*BKC) 100 UNITS/ML SUB-Q (12:24)
--- NOTE | 2021-02-24 13:37 | PCOTNOTE ---
OT treatment attempted this afternoon. Patient declining at this time wanting to relax and rest. Will attempt at later time.
--- NOTE | 2021-02-24 14:30 | PM.IMPN ---
Progress Note: A&P Assessment and Plan (1) Acute respiratory failure: Qualifiers: Respiratory failure complication: unspecified whether with hypoxia or hypercapnia Qualified Code(s): J96.00 - Acute respiratory failure, unspecified whether with hypoxia or hypercapnia Code(s): J96.00 - Acute respiratory failure, unspecified whether with hypoxia or hypercapnia Status: Acute Assessment and Plan: ON ROOM AIR TODAY BiPAP HAS BEEN DISCONTINUED IMPROVED CONTINUE INCENTIVE SPIROMETRY AND ACAPELLA Resolved. On room air. (2) Abnormal chest x-ray: Code(s): R93.89 - Abnormal findings on diagnostic imaging of other specified body structures Status: Acute Assessment and Plan: WILL DISCONTINUE ANTIBIOTICS CULTURES HAVE REMAINED NEGATIVE CONTINUE TO MONITOR (3) Combined congestive systolic and diastolic heart failure: Code(s): I50.40 - Unspecified combined systolic (congestive) and diastolic (congestive) heart failure Status: Acute Assessment and Plan: Lasix prn consult noted. Continue current treatment PATIENT APPEARS TO BE EUVOLEMIC APPRECIATE CARDIOLOGY NO (4) Insulin dependent diabetes mellitus: Status: Chronic Assessment and Plan: monitor blood sugar INSULIN SLIDING SCALE NEEDED Per primary service. (5) Anemia in chronic illness: Code(s): D63.8 - Anemia in other chronic diseases classified elsewhere Status: Acute Assessment and Plan: Hemoglobin and hematocrit are stable. CONTINUE TO MONITOR (6) Chronic kidney disease: Code(s): N18.9 - Chronic kidney disease, unspecified Status: Chronic Assessment and Plan: APPEARS THE PATIENT'S CREATININE IS AT HIS BASELINE FOLLOW NEPHROLOGY RECOMMENDATIONS CONTINUE TO MONITOR MONTGOMERY HAS BEEN DISCONTINUED APPRECIATE NEPHROLOGY NOTE (7) CHF (congestive heart failure): Code(s): I50.9 - Heart failure, unspecified Status: Acute Assessment and Plan: Acute decompensated heart failure secondary to patient's admission to noncompliance with medical therapy, LV dysfunction, acute renal failure. EF 40-45%. Possible underlying CAD given abnormal stress test with area of large severe infarct extending from the apical lateral and mid to basal anterolateral and inferolateral segments. -Continue diuresis with bumex -Lisinopril restarted -Monitor renal function (nephrology following) - INCREASED FLUID RESTRICTION TO 1500 (8) Acute respiratory failure with hypoxia: Code(s): J96.01 - Acute respiratory failure with hypoxia Status: Acute Assessment and Plan: As above. (9) Noncompliance: Code(s): Z91.19 - Patient's noncompliance with other medical treatment and regimen Status: Acute Assessment and Plan: Very likely a significant contributor to patient's repeat acute hospitalization. Patient is aware. (10) GLENN (acute kidney injury): Code(s): N17.9 - Acute kidney failure, unspecified Status: Acute Assessment and Plan: Acute on chronic renal failure. Nephrology following. (11) Anemia, iron deficiency: Code(s): D50.9 - Iron deficiency anemia, unspecified Status: Acute Assessment and Plan: Follow H&H, stable. (12) Suspected COVID-19 virus infection: Code(s): Z20.822 - Contact with and (suspected) exposure to COVID-19 Status: Acute Assessment and Plan: COVID negative Additional Plan CALL SISTER RAMILA AND LEFT A MESSAGE ABOUT TO MOROSE PATIENT'S DISCHARGE Unfortunate 45-year-old man with: Ischemic LV systolic dysfunction on simple medical therapy. DEMARCUS-inhibitor/ARB are not included in the regimen because of renal insufficiency. There do not appear to be any new cardiac issues going on in the hospital at this time. We have no reason to repeat his noninvasive workup that was just completed in the hospital short time
[2021-02-24 17:07] LABS: Glucose Point of Care 148 mg/dl (65-105)
[2021-02-24 21:20] LABS: Glucose Point of Care 157 mg/dl (65-105)
--- NOTE | 2021-02-25 01:54 | PCRCNOTE ---
0200 neb tx omitted due to apnea study
[2021-02-25 06:00] VITALS: BP 139/62; PULSE 72; RESP 16; TEMP 36.9; O2SAT 96
[2021-02-25 06:21] LABS: Glucose Point of Care 91 mg/dl (65-105)
[2021-02-25 06:26] LABS: Anion Gap 8 mmol/L (8-16); Blood Urea Nitrogen 38 mg/dL (9-20); Calcium 8.4 mg/dL (8.4-10.2); Carbon Dioxide 27 mmol/L (22-30); Chloride 104 mmol/L (98-107); Estimated CRCL calculation 42 ml/min; Estimated Glomerular Filt Rate 36; Glucose 107 mg/dL (75-110); Phosphorus 3.5 mg/dL (2.5-4.5); Potassium 3.8 mmol/L (3.4-5.0); Sodium 139 mmol/L (137-145)
[2021-02-25 08:09] LABS: Glucose Point of Care 100 mg/dl (65-105)
[2021-02-25] MEDS: ISOSORBIDE MONONITRATE 60 MG TAB.ER.24H PO (09:00)
[2021-02-25 09:01] VITALS: PULSE 80
[2021-02-25] MEDS: BUMETANIDE 1 MG TABLET PO ×2 (09:01→17:23)
[2021-02-25] MEDS: lisinopriL 20 MG TABLET PO (09:01)
[2021-02-25] MEDS: METOPROLOL TARTRATE 50 MG TAB PO (09:01)
[2021-02-25] MEDS: SILVERGEL (ELTA) 45 ML 1 APPLIC TOPICAL (09:05)
[2021-02-25] MEDS: EPOETIN ALFA-EPBX 10,000 UNITS/ML VIAL 10000 UNITS SUB-Q (11:06)
[2021-02-25 12:01] LABS: Glucose Point of Care 111 mg/dl (65-105)
[2021-02-25 14:00] VITALS: BP 130/66; PULSE 57; RESP 16; TEMP 36.2; O2SAT 100
[2021-02-25] MEDS: ALBUTEROL SULFATE NEB 2.5 MG/0.5 ML INH INHALATION (14:22)
[2021-02-25] MEDS: IPRATROPIUM BR 0.02% INH SOLN 0.5 MG/2.5 ML VIAL INHALATION (14:22)
[2021-02-25 14:24] VITALS: PULSE 80; RESP 16; O2SAT 95
[2021-02-25 14:31] VITALS: PULSE 76; RESP 16
--- NOTE | 2021-02-25 16:38 | PM.DS ---
DS: Admitting Diagnosis Admitting Diagnosis Admitting Diagnosis: (1) Acute respiratory failure: Code(s): J96.00 - Acute respiratory failure, unspecified whether with hypoxia or hypercapnia Status: Acute Assessment and Plan: He is markedly edematous and this is likely due to volume overload. Given his recent, lengthy hospitalization it would be prudent to treat for possible underlying pneumonia. He was also swabbed for COVID-19 and will remain in isolation pending those results. Continue BiPAP overnight and as needed for work of breathing. He will be cautiously diuresed with close monitoring of volume status and renal function. (2) Abnormal chest x-ray: Code(s): R93.89 - Abnormal findings on diagnostic imaging of other specified body structures Status: Acute Assessment and Plan: Chest x-ray shows diffuse lung disease consistent with pulmonary edema and/or pneumonia. He will be cautiously diuresed as detailed above. Continue empiric antibiotics for possible pneumonia. SARS-CoV-2 by PCR pending. (3) Combined congestive systolic and diastolic heart failure: Code(s): I50.40 - Unspecified combined systolic (congestive) and diastolic (congestive) heart failure Status: Acute Assessment and Plan: Continue cautious diuresis as above. (4) Insulin dependent diabetes mellitus: Status: Chronic Assessment and Plan: Poorly controlled with a recent hemoglobin A1c of 10.4%. Continue basal insulin. Initiate sliding scale insulin, Accu-Cheks, and hypoglycemic protocol. (5) Anemia in chronic illness: Code(s): D63.8 - Anemia in other chronic diseases classified elsewhere Status: Acute Assessment and Plan: Hemoglobin and hematocrit are stable and will be monitored. (6) Chronic kidney disease: Code(s): N18.9 - Chronic kidney disease, unspecified Status: Acute Assessment and Plan: Baseline creatinine unknown, but it has improved quite a bit from labs drawn just a week or so ago. Monitor closely while diuresing. DS: Discharge Diagnosis Discharge Diagnosis (1) Acute respiratory failure: Qualifiers: Respiratory failure complication: unspecified whether with hypoxia or hypercapnia Qualified Code(s): J96.00 - Acute respiratory failure, unspecified whether with hypoxia or hypercapnia Code(s): J96.00 - Acute respiratory failure, unspecified whether with hypoxia or hypercapnia Status: Acute Assessment and Plan: ON ROOM AIR TODAY BiPAP HAS BEEN DISCONTINUED IMPROVED CONTINUE INCENTIVE SPIROMETRY AND ACAPELLA Resolved. On room air. (2) Abnormal chest x-ray: Code(s): R93.89 - Abnormal findings on diagnostic imaging of other specified body structures Status: Acute Assessment and Plan: WILL DISCONTINUE ANTIBIOTICS CULTURES HAVE REMAINED NEGATIVE CONTINUE TO MONITOR (3) Combined congestive systolic and diastolic heart failure: Code(s): I50.40 - Unspecified combined systolic (congestive) and diastolic (congestive) heart failure Status: Acute Assessment and Plan: Lasix prn consult noted. Continue current treatment PATIENT APPEARS TO BE EUVOLEMIC APPRECIATE CARDIOLOGY NO (4) Insulin dependent diabetes mellitus: Status: Chronic Assessment and Plan: monitor blood sugar INSULIN SLIDING SCALE NEEDED Per primary service. (5) Anemia in chronic illness: Code(s): D63.8 - Anemia in other chronic diseases classified elsewhere Status: Acute Assessment and Plan: Hemoglobin and hematocrit are stable. CONTINUE TO MONITOR (6) Chronic kidney disease: Code(s): N18.9 - Chronic kidney disease, unspecified Status: Chronic Assessment and Plan: APPEARS THE PATIENT'S CREATININE IS AT HIS BASELINE FOLLOW NEPHROLOGY RECOMMENDATIONS CONTINUE TO MONITOR MONTGOMERY HAS BEEN DISCONTINUED APPRECIATE NEPHROLOGY NOTE
[2021-02-25 17:50] LABS: Glucose Point of Care 121 mg/dl (65-105)
== END 2021-02-25 18:00 | disposition home or self-care (01) | DRG 133 ==
LOC: ANHED 13:36 → ANHICU 17:49 → ANH3MEDSUR 02-23 12:27 → ANHICU 02-26 11:02
PROVIDERS: Internal Medicine; Internal Medicine Nephrology; Physician Assistant; Admitting Provider Internal Medicine; Emergency Provider Emergency Medicine; Visit Provider Emergency Medicine
DX: J96.01 Acute respiratory failure with hypoxia (principal); I50.9 Heart failure, unspecified; N17.9 Acute kidney failure, unspecified; J18.9 Pneumonia, unspecified organism; I13.0 Hypertensive heart and chronic kidney disease with heart failure and stage 1 through stage 4 chronic kidney disease, or unspecified chronic kidney disease; I50.42 Chronic combined systolic (congestive) and diastolic (congestive) heart failure; N18.9 Chronic kidney disease, unspecified; E11.22 Type 2 diabetes mellitus with diabetic chronic kidney disease; Z20.822 Contact with and (suspected) exposure to COVID-19; N47.1 Phimosis; I73.9 Peripheral vascular disease, unspecified; I25.5 Ischemic cardiomyopathy; L97.929 Non-pressure chronic ulcer of unspecified part of left lower leg with unspecified severity; I25.10 Atherosclerotic heart disease of native coronary artery without angina pectoris; D63.8 Anemia in other chronic diseases classified elsewhere; N50.89 Other specified disorders of the male genital organs; D50.9 Iron deficiency anemia, unspecified; Z89.611 Acquired absence of right leg above knee; Z91.19 Patient's noncompliance with other medical treatment and regimen
CPT/HCPCS: 36415; 36600; 71045; 80048; 80053; 80069; 80202; 82375; 82805; 82948; 83050; 83605; 83735; 83880; 84100; 84484; 85025; 85027; 85055; 85610; 85730; 86140; 87040; 87086; 93005; 94002; 94003; 94640; 94667; 94762; 96374; 96375; 97110; 97162; 97165; 97535; 99291; A9270; C9803; J0360; J0692; J1610; J1815; J1940; J2060; J2270; J2405; J2543; J3370; P9047; Q5106; U0003; U0005

== ENCOUNTER 2021-05-20 19:04 | Inpatient (IN) | payer MEDICAID, SELFPAY ==
--- NOTE | ~2021-05-20 | XR_ITS ---
EXAMINATION: XR chest port-a-cath/central DATE: 05/27/2021 14:58 INDICATION: Central line placement. TECHNIQUE: A single frontal view of the chest was obtained. COMPARISON: Chest single view 05/26/2021 FINDINGS: There are moderate-sized right and small left pleural effusions. There are airspace opaciti es in the perihilar regions and at the lung bases. No pneumothorax. The heart size is normal. A left internal jugular central venous catheter is seen with tip in the proximal right atrium. IMPRESSION: 1. Central line tip in proximal right atrium. 2. Moderate-sized right and small left pleural effusions with improvement on the left. 3. Airspace opacities in the perihilar regions and at the lung bases with improvement at left lung ba se, consistent with a combination of pulmonary edema and atelectasis versus pneumonia. Reviewed, dictated and finalized at location A. IMPRESSION: 1. Central line tip in proximal right atrium. 2. Moderate-sized right and small left pleural effusions with improvement on th e left. 3. Airspace opacities in the perihilar regions and at the lung bases with impro vement at left lung base, consistent with a combination of pulmonary edema and atelectasis versus pneumonia.
--- NOTE | ~2021-05-20 | XR_ITS ---
EXAMINATION: [id number] DATE: 06/22/2021 16:17 INDICATION: Status post right thoracentesis TECHNIQUE: frontal view of the chest was obtained. COMPARISON: Chest radiograph dated 06/15/2021 FINDINGS: Right internal jugular central venous catheter with distal tip at the midsuperior vena cava. Airspace opacities in the bilateral mid and lower lung zones with blunting at the costophrenic and cardiophre magui angles consistent with small right and small to moderate-sized left pleural effusions with associ ated atelectasis and/or pneumonia. No pneumothorax. The cardiomediastinal silhouette is within normal limits accounting for AP technique and leftward rotation of the patient. IMPRESSION: 1. No pneumothorax post right thoracentesis. 2. Small right and [id number] left pleural effusions with associated basilar atelectasis and/o r pneumonia. Reviewed, dictated and finalized at location A. IMPRESSION: 1. No pneumothorax post right thoracentesis. 2. Small right and [id number] left pleural effusions with associated bas ilar atelectasis and/or pneumonia.
--- NOTE | ~2021-05-20 | US_ITS ---
EXAMINATION: US scrotum doppler DATE: 05/21/2021 15:56 INDICATION: Scrotal edema TECHNIQUE: Testicular sonogram utilizing grayscale and Doppler COMPARISON: CT, 01/19/2021 FINDINGS: There is marked edema of the scrotum. No definite signs of scrotal soft tissue gas are iden tified although stability of ultrasound is limited. The right testis measures 3.4 x 6 2.2 x 2.7 cm. T he left testis measures 3.9 x 2.5 x 2.4 cm. There is normal vascular flow to both testes. The right e pididymis is normal with normal vascular flow. The left epididymis is normal with normal vascular inderjit w. There is no varicocele or hydrocele. IMPRESSION: 1. Marked scrotal edema which could relate to diffuse anasarca previously identified. Reviewed, dictated and finalized at location A. IMPRESSION: 1. Marked scrotal edema which could relate to diffuse anasarca previously ident ified.
--- NOTE | ~2021-05-20 | XR_ITS ---
XR fl guide central line place DATE: 06/13/2021 14:43 INDICATION: Dialysis catheter insertion TECHNIQUE: 204.2 seconds fluoroscopy time 83.21 mGy 2. Spot C-arm images of the right thorax COMPARISON: None FINDINGS: Dual lumen right internal jugular catheter overlies the approximate location of the right i nternal jugular vein proximally and right atrium distally. Soft tissue detail is limited. IMPRESSION: Right internal jugular dialysis catheter placement Reviewed, dictated and finalized at Location A. Reviewed, dictated and finalized at location A.
--- NOTE | ~2021-05-20 | XR_ITS ---
XR chest 1V portable 06/10/2021 15:29 Indication: Fluid overload. Dyspnea. Procedure: AP portable chest Comparison: Comparison to multiple prior studies sequentially, with oldest reviewed study dated 03/2021. Findings: Cardiomegaly with pulmonary edema. Moderate right pleural effusion. No pneumothorax. No acu te osseous abnormality. Impression: 1: Cardiomegaly with pulmonary edema. 2: Moderate right pleural effusion. Reviewed, dictated and finalized at location B. Impression: 1: Cardiomegaly with pulmonary edema. 2: Moderate right pleural effusion.
--- NOTE | ~2021-05-20 | XR_ITS ---
EXAMINATION: XR chest 1V portable EXAM DATE: 06/04/2021 09:35 INDICATION: SOB, CHF, HTN. TECHNIQUE: Portable AP frontal chest x-ray was obtained. Comparison is made to prior examination from 06/01/2021. FINDINGS: There is moderate pleural effusion. Adjacent compressive atelectasis. There is cardiomegaly and pulmonary vascular congestion. Probable pulmonary edema. No pneumothorax. Accounting for differe nces in technique, there is no significant interval change. IMPRESSION: 1. Pulmonary edema, CHF exacerbation. 2. Moderate right pleural effusion. Reviewed, dictated and finalized at location A.
--- NOTE | ~2021-05-20 | CT_ITS ---
EXAMINATION: CT abdomen pelvis wo con EXAM DATE: 06/24/2021 14:02 INDICATION: Leukocytosis. Pelvic, scrotal, peroneal edema. TECHNIQUE: Spiral CT of the abdomen and pelvis was performed without contrast. Axial, coronal and s agittal images of the abdomen and pelvis were reviewed. The dose-length product (DLP) for this exami nation was 1230.35 mGy-cm. The exposure was tailored according to patient size (auto mA exposure con trol), and iterative reconstruction (ASIR) was used as additional dose reduction technique. Compariso n is made to prior examination from 06/21/2021. FINDINGS: Imaged portion of the perineum is unremarkable. Previously seen phlegmonous process overlying the sac rum may have been debridement; there appears to be surgical packing inside. No drainable abscess. Thi s appears to extend to the coccyx, distal aspect of the sacrum, osteomyelitis not excludable but no d iscrete erosion identified. Otherwise, no change in abdominal and pelvic findings. Small amount of ascites. Moderate generalized body wall edema and mesenteric. The liver, spleen, adr enal glands and pancreas are unremarkable. Gallbladder is unremarkable. No biliary obstruction. Th ere is no nephrolithiasis or hydronephrosis. The prostate is unremarkable. The bladder is collapsed with Ramirez catheter balloon anchor inside. There is no retroperitoneal or pelvic lymphadenopathy. There is mild scattered arteriosclerotic disease. There is appendicolith within the appendix tip. No evidence of appendicitis. There is mild scattered colonic diverticulosis. There is no adjacent inflammatory change to suggest diverticulitis. The stom ach and small bowel are unremarkable. There is moderate amount of colonic stool. No free intraperi toneal gas. There are no osteoblastic or osteolytic lesions identified. Moderate to large bilateral pleural effusions with adjacent airspace disease, volume loss consistent with atelectasis. IMPRESSION: 1. Probable interval debridement of phlegmonous sacral decubitus ulceration. Coccygeal osteomyelitis not excludable. 2. Moderate to large bilateral pleural effusions. 3. Persistent small ascites, generalized mesenteric and body wall edema. Reviewed, dictated and finalized at location A. IMPRESSION: 1. Probable interval debridement of phlegmonous sacral decubitus ulceration. C occygeal osteomyelitis not excludable. 2. Moderate to large bilateral pleural effusions. 3. Persistent small ascites, generalized mesenteric and body wall edema.
--- NOTE | ~2021-05-20 | XR_ITS ---
EXAMINATION: XR chest 1V portable DATE: 05/26/2021 12:21 INDICATION: Congestive heart failure. TECHNIQUE: A single frontal view of the chest was obtained. COMPARISON: Chest single view 05/22/2021, CT abdomen and pelvis 01/19/2021 FINDINGS: There are moderate-sized pleural effusions. There are airspace opacities in the perihilar r egions and lower lung zones. No pneumothorax. The heart size is normal. IMPRESSION: 1. Moderate-sized pleural effusions with worsening on the left. 2. Stable airspace opacities in the perihilar regions and at the lung bases, consistent with a combin ation of pulmonary edema and atelectasis versus pneumonia. Reviewed, dictated and finalized at location A. IMPRESSION: 1. Moderate-sized pleural effusions with worsening on the left. 2. Stable airspace opacities in the perihilar regions and at the lung bases, co nsistent with a combination of pulmonary edema and atelectasis versus pneumonia .
--- NOTE | ~2021-05-20 | XR_ITS ---
XR chest port-a-cath/central DATE: 06/13/2021 14:42 INDICATION: Dialysis catheter insertion on the right TECHNIQUE: Portable AP view on 06/13/2021 at 1434 hours COMPARISON: 06/12/2021 portable AP chest at 0828 hours FINDINGS: Interval placement of right internal jugular dual-lumen catheter with distal tip overlying right atrium. No evidence of pneumothorax. Pulmonary vascular congestion, moderately large right and small left pleural effusions and bilateral perihilar and basilar pulmonary infiltrates suggestive of pulmonary edema persist, relatively stable since 06/12/2021. IMPRESSION: Right internal jugular central venous catheter placement in right atrium; no pneumothorax Reviewed, dictated and finalized at Location A. Reviewed, dictated and finalized at location A. IMPRESSION: Right internal jugular central venous catheter placement in right a trium; no pneumothorax
--- NOTE | ~2021-05-20 | XR_ITS ---
EXAMINATION: XR abdomen NG/feed tube insert INDICATION: Nasogastric tube placement TECHNIQUE: Portable AP KUB-NG at 1438 hours COMPARISON: None available FINDINGS: The nasogastric tube is in the stomach. The bowel gas pattern is nonspecific. There are sma ll pleural effusions. Cardiomegaly is noted. Pulmonary edema is present in the visualized lung bases. IMPRESSION: 1. Nasogastric tube in the stomach. Reviewed, dictated and finalized at location A.
--- NOTE | ~2021-05-20 | XR_ITS ---
EXAMINATION: XR chest 2V DATE: 06/26/2021 07:40 INDICATION: Shortness of breath TECHNIQUE: AP and lateral views of the chest are obtained. COMPARISON: 06/22/2020 FINDINGS: There are small persistent but decreased pleural effusions. A diffuse interstitial pattern is present. There are airspace opacities of the lung bases. Cardiomegaly is noted. A right internal j ugular dialysis catheter ends with its tip in the proximal right atrium. There is no pneumothorax IMPRESSION: 1. Persistent but improved pleural effusions. 2. Cardiomegaly with mild pulmonary edema. 3. Bibasilar airspace opacities, likely atelectasis. Reviewed, dictated and finalized at location B.
--- NOTE | ~2021-05-20 | XR_ITS ---
EXAMINATION: XR tibia fibula LT 2V INDICATION: Left lower limb swelling TECHNIQUE: Two views of the left tibia and fibula are obtained on four radiographs. COMPARISON: None available FINDINGS: There is diffuse soft tissue edema of the leg. Bone alignment is normal. There is no fractu re. Calcified atherosclerosis is noted. IMPRESSION: 1. Diffuse soft tissue edema without acute osseous abnormality identified. Reviewed, dictated and finalized at location A.
--- NOTE | ~2021-05-20 | XR_ITS ---
EXAMINATION: [id number]_[id number]_CR DATE: 06/15/2021 15:17 INDICATION: Right pleural effusion status post thoracentesis. TECHNIQUE: A single frontal view of the chest was obtained on 2 radiographs. COMPARISON: Chest single view 06/13/2021 FINDINGS: There are small pleural effusions. There are airspace opacities in all lung zones bilateral ly with a perihilar and basilar predominance. No pneumothorax. Cardiomegaly is noted. A right interna l jugular central venous catheter is seen with tip in the proximal right atrium. IMPRESSION: 1. Small pleural effusions with improvement on the right status post thoracentesis. 2. Diffuse lung disease with perihilar and basilar predominance, likely a combination of pulmonary ed elizabeth and atelectasis. Pneumonia is less likely. 3. Cardiomegaly. Reviewed, dictated and finalized at location A. IMPRESSION: 1. Small pleural effusions with improvement on the right status post thoracente sis. 2. Diffuse lung disease with perihilar and basilar predominance, likely a combi nation of pulmonary edema and atelectasis. Pneumonia is less likely. 3. Cardiomegaly.
--- NOTE | ~2021-05-20 | XR_ITS ---
EXAMINATION: XR chest 1V portable DATE: 05/22/2021 00:50 INDICATION: Tachypnea and wheezing TECHNIQUE: frontal view of the chest was obtained. COMPARISON: Chest radiograph dated 05/20/2021 FINDINGS: Diffuse increased interstitial pattern with perihilar predominance consistent with mild pulmonary adrian ma. Unchanged opacities at the bilateral lower lung zones, right greater than left. On the right cons istent to in part to a small right pleural effusion with blunting at costophrenic angle and with smal l amount of fluid tracking along the minor fissure. Cardiomegaly. IMPRESSION: 1. Increased interstitial pattern with perihilar predominance and favor pulmonary edema over pneumoni a. 2. Opacities in the bilateral lower lung zones which could represent atelectasis and/or pneumonia wit h small right pleural effusion. 3. Cardiomegaly. Reviewed, dictated and finalized at location A. IMPRESSION: 1. Increased interstitial pattern with perihilar predominance and favor pulmona ry edema over pneumonia. 2. Opacities in the bilateral lower lung zones which could represent atelectasi s and/or pneumonia with small right pleural effusion. 3. Cardiomegaly.
--- NOTE | ~2021-05-20 | XR_ITS ---
EXAMINATION: XR chest 1V portable DATE: 05/29/2021 14:01 INDICATION: Shortness of breath TECHNIQUE: frontal view of the chest was obtained. COMPARISON: Chest radiograph dated 05/27/2021 FINDINGS: Left internal jugular central venous catheter with distal tip at the caudal superior vena cava. Cardi omegaly with pulmonary vascular congestion. Opacities in the bilateral lower lung zones. Blunting at the right costophrenic angle consistent with unchanged small to moderate-sized right pleural effusion . No pneumothorax or definitive left pleural effusion. IMPRESSION: 1. Unchanged small to moderate right pleural effusion. 2. Opacities in the bilateral lower lung zones which could represent mild pulmonary edema, atelectasi s, pneumonia or some combination thereof. Reviewed, dictated and finalized at location A. IMPRESSION: 1. Unchanged small to moderate right pleural effusion. 2. Opacities in the bilateral lower lung zones which could represent mild pulmo nary edema, atelectasis, pneumonia or some combination thereof.
--- NOTE | ~2021-05-20 | CT_ITS ---
EXAMINATION: CT brain wo con DATE: 05/21/2021 01:52 INDICATION: Hallucinations TECHNIQUE: Computed tomography (CT) of the head was performed without intravenous contrast. The mA wa s adjusted according to patient size. Iterative reconstruction technique was employed. Exam dose: 60 5.33 mGy-cm total exam DLP. COMPARISON: None FINDINGS: Examination is limited by motion artifact. Chronic lacunar infarct of left thalamus. No intracranial mass lesion or hemorrhage or cerebrovascular accident is evident otherwise. No midlin e shift or mass effect. Normal ventricular size. No subdural or epidural hematoma is detected. No fracture or bone destruction of the cranial vault. There is some soft tissue thickening of the eth moid air cells. Included paranasal sinuses and mastoid air cells are otherwise normally developed and aerated. IMPRESSION: Chronic lacunar infarct of left thalamus. No other significant intracranial abnormality is detected; examination limited by motion artifact Reviewed, dictated and finalized at Location A. Reviewed, dictated and finalized at location B. IMPRESSION: Chronic lacunar infarct of left thalamus. No other significant int racranial abnormality is detected; examination limited by motion artifact
--- NOTE | ~2021-05-20 | CT_ITS ---
EXAMINATION: CT chest abdomen pelvis wo con EXAM DATE: 06/21/2021 10:03 INDICATION: Leukocytosis. TECHNIQUE: Spiral CT of the chest, abdomen and pelvis was performed without contrast. Axial, colunga l and sagittal images chest, abdomen and pelvis were reviewed. Coronal maximum intensity pixel image s of chest reviewed. The dose-length product (DLP) for this examination was 948.42 mGy-cm. The expo sure was tailored according to patient size (auto mA exposure control), and iterative reconstruction (ASIR) was used as additional dose reduction technique. Comparison is made to prior examination from 01/19/2021. FINDINGS: CHEST: There is moderate to large right pleural effusion, and a moderate left-sided pleural effusion. There is adjacent atelectasis. There is also some groundglass opacity which is probably atelectasis, but pneumonia not excludable. Tracheobronchial tree is patent. Mild mediastinal lymphadenopathy pr obably reactive. There is no pneumothorax. Heart normal in size. The interventricular septum is p erceptible, suggesting patient is anemic. There is mild coronary arterial calcification, arterial scl erosis. ABDOMEN PELVIS: Along the distal aspect of the sacrum, and inferior to the coccyx there are numerous foci of subcutaneous gas, adjacent inflammation. Cannot identify any obvious ulceration or break. Thi s region measures about 4 x 5 x 7 cm. Appearance is suspicious for necrotizing fasciitis; recommend c linical correlation, surgical consult. I discussed suspected necrotizing fasciitis with in the office of the ordering clinician Griselda Vasquez MD at 06/21/2021 10:11 CDT. Possible coccygeal osteomyelitis. Small amount of ascites. Moderate generalized body wall edema. The liver, spleen, adrenal glands and pancreas are unremarkable. Gallbladder is unremarkable. No bilia ry obstruction. There is no nephrolithiasis or hydronephrosis. Moderate nonspecific perinephric fat stranding bilaterally, mild increase compared to prior study (the ascites is also new). The prostate is unremarkable. The bladder is collapsed with Ramirez catheter balloon anchor inside. There is no re troperitoneal or pelvic lymphadenopathy. There is mild scattered arteriosclerotic disease. The appendix is normal. The stomach and small bowel are unremarkable. There is moderate amount of c olonic stool. No free intraperitoneal gas. There are no osteoblastic or osteolytic lesions identi fied. IMPRESSION: 1. Findings suspicious for necrotizing fasciitis overlying sacrum, coccyx. Coccygeal osteomyelitis n ot excludable. 2. Moderate to large right, moderate left pleural effusions with adjacent atelectasis. Cannot totall y exclude pneumonia. 3. Small ascites, anasarca. Reviewed, dictated and finalized at location A. IMPRESSION: 1. Findings suspicious for necrotizing fasciitis overlying sacrum, coccyx. Clotilde cygeal osteomyelitis not excludable. 2. Moderate to large right, moderate left pleural effusions with adjacent atel ectasis. Cannot totally exclude pneumonia. 3. Small ascites, anasarca.
--- NOTE | ~2021-05-20 | XR_ITS ---
EXAMINATION: XR chest 1V portable DATE: 06/12/2021 09:05 INDICATION: Congestive heart failure. TECHNIQUE: A single frontal view of the chest was obtained on 2 radiographs. COMPARISON: Chest single view 06/10/2021, CT abdomen and pelvis 01/19/2021 FINDINGS: There are moderate-sized right and small left pleural effusions. There are airspace opaciti es in the perihilar regions and at the lung bases. No pneumothorax. The heart size is normal. IMPRESSION: 1. Stable moderate-sized right and small left pleural effusions. 2. Stable airspace opacities in the perihilar regions and at the lung bases, consistent with atelecta sis or less likely pneumonia. Reviewed, dictated and finalized at location A. IMPRESSION: 1. Stable moderate-sized right and small left pleural effusions. 2. Stable airspace opacities in the perihilar regions and at the lung bases, co nsistent with atelectasis or less likely pneumonia.
--- NOTE | ~2021-05-20 | XR_ITS ---
XR chest 2V 06/10/2021 11:03 Indication: Shortness of breath Procedure: AP and lateral views of the chest Comparison: Comparison to multiple prior studies sequentially, with oldest reviewed study dated 01/2021. Findings: Cardiomegaly with interstitial edema. Moderate right pleural effusion. Low lung volumes. No pneumothorax. No acute osseous abnormality. Impression: 1: Cardiomegaly with pulmonary edema. 2: Moderate right pleural effusion. Reviewed, dictated and finalized at location B. Impression: 1: Cardiomegaly with pulmonary edema. 2: Moderate right pleural effusion.
--- NOTE | ~2021-05-20 | US_ITS ---
EXAMINATION: US thoracentesis DATE: 06/22/2021 16:20 INDICATION: Large right pleural effusion TECHNIQUE: The procedure and its risks and benefits were discussed with the patient's sister. Potenti al risks discussed included bleeding, infection, and pneumothorax. The patient's sister understood th e risks and agreed to proceed. The skin was prepped and draped in sterile fashion. 1% lidocaine was u sed for local anesthesia. Under ultrasound guidance, a 5 Fr catheter with trochar was advanced into t he right pleural effusion. Fluid was aspirated. The catheter was removed, and a dressing was applied. There were no immediate complications. FINDINGS: Ultrasound images demonstrate a moderate-sized right pleural effusion and the catheter within the flu id. IMPRESSION: 1. Successful ultrasound-guided thoracentesis yielding 1000 mL of clear yellow fluid. Reviewed, dictated and finalized at location A.
--- NOTE | ~2021-05-20 | XR_ITS ---
EXAMINATION: XR chest 1V portable INDICATION: Tachypnea, history of congestive heart failure TECHNIQUE: Portable AP chest at 2242 hours COMPARISON: 02/19/2021 FINDINGS: The lung volumes are low. There is a small right pleural effusion. A diffuse interstitial p attern is present. The heart size is upper limits of normal for technique. No pneumothorax is identif ied. There are minimal airspace opacities the right lung base. IMPRESSION: 1. Diffuse lung disease, consistent with pneumonia and/or pulmonary edema. 2. Small right pleural effusion. 3. Right basilar airspace opacities, consistent with atelectasis versus pneumonia. Reviewed, dictated and finalized at location A. IMPRESSION: 1. Diffuse lung disease, consistent with pneumonia and/or pulmonary edema. 2. Small right pleural effusion. 3. Right basilar airspace opacities, consistent with atelectasis versus pneumon ia.
--- NOTE | ~2021-05-20 | US_ITS ---
EXAMINATION: US thoracentesis DATE: 06/15/2021 15:22 INDICATION: pleural effusion TECHNIQUE: The procedure and its risks, benefits, and alternatives were discussed with the patient's niece, Birdie Chacko. Potential risks discussed included bleeding, infection, and pneumothora x. The patient's niece understood the risks and agreed to proceed. The skin was prepped and draped in sterile fashion. 1% lidocaine was used for local anesthesia. Under ultrasound guidance, a [address] with trochar was advanced into the right pleural effusion. Fluid was aspirated. The catheter was removed, and a dressing was applied. There were no immediate complications. FINDINGS: Ultrasound images demonstrate a right pleural effusion and the catheter within the fluid. IMPRESSION: 1. Successful ultrasound-guided thoracentesis yielding 1000 mL of yellow fluid. Reviewed, dictated and finalized at location A. IMPRESSION: 1. Successful ultrasound-guided thoracentesis yielding 1000 mL of yellow fluid .
--- NOTE | ~2021-05-20 | XR_ITS ---
XR chest 1V portable 06/01/2021 08:18 Indication: Shortness of breath Procedure: AP portable chest Comparison: Comparison to multiple prior studies sequentially, with oldest reviewed study dated 08/2020. Findings: Heart size normal. There is bilateral airspace disease without significant change. There is moderate right pleural effusion. No pneumothorax. No acute osseous abnormality. Impression: 1: Diffuse bilateral airspace disease may represent edema and/or pneumonia. 2: Moderate right pleural effusion. Reviewed, dictated and finalized at location A. Impression: 1: Diffuse bilateral airspace disease may represent edema and/or pneumonia. 2: Moderate right pleural effusion.
[2021-05-20 19:14] VITALS: BP 201/110; PULSE 90; RESP 28; TEMP 36.6; O2SAT 97
--- NOTE | 2021-05-20 19:22 | ECG_ITS ---
Measurements Intervals Mathews Rate: 91 P: 19 GA: 153 QRS: -10 QRSD: 109 T: 78 QT: 339 QTc: 418 Interpretive Statements SINUS RHYTHM CONSIDER INFERIOR INFARCT, AGE INDETERMINATE NONSPECIFIC ST & T-WAVE ABNORMALITY- LAT/HIGH LAT LEADS ABNORMAL ECG Electronically Signed On 05-20-2021 20:17:13 CDT by Reji Dasilva D.O.
[2021-05-20 19:40] LABS: Basophils Absolute Auto 0.1 K/mm3 (0.0-0.1); Basophils Percent Auto 0.7 % (0.2-1.2); Eosinophils Absolute Auto 0.8 K/mm3 (0-0.3); Eosinophils Percent Auto 10.6 % (0-4.4); Hemoglobin 11.3 g/dL (14.0-18.0); Immature Granulocyte Absolute 0.02 K/mm3 (0.00-0.031); Immature Granulocyte Percent A 0.3 % (0-0.5); Lymphocytes Absolute Auto 1.12 K/mm3 (0.9-3.2); Lymphocytes Percent Auto 15.1 % (18.3-44.2); Mean Corpuscular Hemoglobin 26.2 pg (26-34); Mean Corpuscular Volume 90.5 fl (80-100); Mean Platelet Volume 11.8 fl (7.4-10.4); Monocytes Absolute Auto 0.6 K/mm3 (0.1-0.6); Monocytes Percent Auto 7.8 % (2.6-8.5); Neutrophils Absolute Auto 4.9 K/mm3 (1.3-6.7); Neutrophils Percent Auto 65.5 % (45.5-73.1); Platelet Count Result 239 k/mm3 (150-375); Red Blood Count 4.31 M/mm3 (4.6-6.20); Red Cell Distribution Width 17.1 % (11.5-14.5); White Blood Count 7.4 K/mm3 (4.5-10.0)
[2021-05-20 19:47] LABS: Add Urine Microscopic? YES; Appearance Urine Clear (Clear); Bacteria Urine Trace /hpf; Bilirubin Urine Negative (Negative); Blood Urine 1+ (Negative); Color Urine Yellow (Yellow); Glucose Urine UA 3+ mg/dL (Negative); Ketones Urine Trace mg/dL (Negative); Leukocyte Esterase Ur Negative LEU/UL (Negative); Mucus Urine Rare /lpf; Nitrate Urine Negative (Negative); Protein Urine 3+ mg/dL (Negative); Specific Grav Ur 1.023 (1.001-1.035); Squamous Epithelial Cell Urine Rare /hpf (Few); Urobilinogen Urine Negative mg/dL (<2.0); WBC Urine 0-3 /hpf
[2021-05-20 19:54] LABS: Lactic Acid Reflex 1.1 mmol/L (0.7-2.1)
[2021-05-20 19:57] VITALS: BP 191/112; PULSE 89; RESP 30; O2SAT 95
[2021-05-20 19:58] LABS: Alanine Aminotransferase 15 U/L (4-50); Albumin Level 3.1 g/dL (3.5-5.1); Alkaline Phosphatase 244 U/L (38-126); Anion Gap 5 mmol/L (8-16); Aspartate Amino Transferase 33 U/L (17-59); Bilirubin,Total 0.3 mg/dL (0.2-1.3); Blood Urea Nitrogen 46 mg/dL (9-20); Calcium 8.4 mg/dL (8.4-10.2); Carbon Dioxide 20 mmol/L (22-30); Chloride 114 mmol/L (98-107); Estimated CRCL calculation 33 ml/min; Estimated Glomerular Filt Rate 25; Glucose 107 mg/dL (65-110); Potassium 5.6 mmol/L (3.4-5.0); Sodium 139 mmol/L (137-145)
[2021-05-20 21:00] VITALS: BP 181/101; PULSE 89; RESP 28; O2SAT 98
[2021-05-20 22:10] VITALS: BP 187/98; PULSE 89; RESP 18; O2SAT 97
[2021-05-20] MEDS: INSULIN HUMAN REGULAR (*BKC) 100 UNITS/ML 10 UNITS IV PUSH (22:28)
[2021-05-20] MEDS: SODIUM BICARBONATE 8.4% 50 MEQ/50 ML SYRINGE IV PUSH (22:28)
[2021-05-20] MEDS: DEXTROSE 50% 25 GM/50 ML SYRINGE IV PUSH (22:28)
[2021-05-20] MEDS: SODIUM POLYSTYRENE SULFONONATE 15 GM/60 ML BTL 30 GM PO (22:29)
--- NOTE | 2021-05-20 22:31 | ED.GENADULT ---
HPI - General Adult General Chief complaint: Altered Mental Status Stated complaint: altered loc Time Seen by Provider: 05/20/21 21:34 Source: patient and RN notes reviewed Mode of arrival: ambulatory Limitations: language barrier ([place] speaking so video allergy specialist used. ) History of Present Illness HPI narrative: This is a 45 year old male with history of CHF, chronic kidney disease, DM who presents from home for to see a doctor. He states he was arguing with his sister and brother. He states they were calling him names and told him that he was crazy. His sister told him he needed to see doctor because he was crazy so they called 911. He was tired of arguing so he came to hospital. EMS reports patient has been alert and oriented x 4 and I agree. He has no complaints. He denies suicidal or homicidal ideations. He denies chest pain, shortness of breath, nausea, vomiting abdominal pain. He has bilateral leg edema but he reports it is has decreased . He also has leaking wounds to his left leg and he is getting wound care. He states his wounds are not getting worse, and he denies pain. He has been taking his medications. Related Data Home Medications Medication Instructions Recorded Confirmed amlodipine 10 mg PO DAILY 05/21/21 05/21/21 glipizide 10 mg PO DAILY 05/21/21 05/21/21 Allergies Allergy/AdvReac Type Severity Reaction Status Date / Time No Known Allergies Allergy Verified 05/20/21 19:58 Review of Systems Review of Systems: All systems reviewed & are unremarkable except as noted in HPI and below [facility] Past Medical History Medical History (Updated 05/21/21 @ 07:15 by Krissy Perez MD) Anemia in chronic illness Cardiomyopathy Chronic kidney disease Combined congestive systolic and diastolic heart failure Mildly reduced LV systolic function with an EF of 40 to 45% and grade 2 diastolic dysfunction noted on echocardiogram dated 01/22/2021. Diverticulosis Hypertension Insulin dependent diabetes mellitus Hemoglobin A1c was 10.9% on 01/23/2021. Complicated by gastric dysmotility, neuropathy, and nephropathy. Ischemic cardiomyopathy Lexiscan stress on 01/26/2021 showed a large area of severe infarct involving the apical lateral and mid to basal anterolateral and inferolateral segments of left ventricle on myocardial perfusion imaging with a left ventricular ejection fracture measuring 45%. Peripheral vascular disease Severe mitral valve regurgitation (01/22/21) Surgical History Surgical History History of colonoscopy with polypectomy (01/27/21) 2 benign polyps removed. History of right below knee amputation Family History Family History Other Unknown family medical history Social History Social History Social History: The patient lives in [place] with his sister, pegiysu-su-osi, nieces, and nephews. Nonsmoker. No alcohol or illicit substance abuse. He designates his sister, Birdie Stroud, as his surrogate decision maker and he wishes to be a full code. Spiritual care concerns: No Exam Const: General: no acute distress, alert and ill appearing chronically Nutritional Appearance: obese Orientation/consciousness: patient oriented x3 HENMT: Head: normocephalic and atraumatic Mouth: Yes Normal oral and palatal mucosa present, Yes lip normal, Yes oropharynx normal and Yes moist mucous membranes Eyes: Pupils: Equal, round and reactive pupils present EOM: EOMs intact bilaterally Chest: Chest palpation & inspection: normal inspection of the chest Resp: Effort & Inspection: normal respiratory effort, not labored, no retractions and not tachypneic Auscultation: wheezes Cardio: Rate: regular rate Rhythm: regular rhythm Heart sounds: Murmur heart sound present GI: GI Palp: Yes Soft to palpation, No Tenderness
[2021-05-20] MEDS: ALBUTEROL SULFATE NEB 2.5 MG/0.5 ML INH 5 MG INHALATION (22:47)
[2021-05-20] MEDS: IPRATROPIUM BR 0.02% INH SOLN 0.5 MG/2.5 ML VIAL INHALATION (22:47)
[2021-05-20 23:04] VITALS: BP 181/101; PULSE 101; RESP 22; O2SAT 98
[2021-05-20 23:07] LABS: Alveolar/Arterial O2 Gradient 27.2 mmHg; Base Excess ABG -5.3 mEq/l (+/-2.0); Carboxyhemoglobin 0.2 % THb (0-2.0); Fractional Inspired Oxygen 21 %; HCO3 ABG 19.4 mEq/l (22.0-26.0); Methemoglobin ABG 0.1 %THb (0-1.5); Oxygen Content ABG 14.6 %vol (16.0-22.0); Oxygen Saturation ABG 95.7 % (95.0-100.0); Oxyhemoglobin 94.6 % THb (90.0-100.0); PCO2 ABG 34.8 mmHg (35.0-45.0); PO2 ABG 80.9 mmHg (80.0-100.0); PO2 FiO2 Ratio Arterial Blood 3.85 %; Reduced Hemoglobin 5.1 %THb (0-5.0); Total Hemoglobin 10.9 g/dL (12.0-18.0); pH ABG 7.364 (7.350-7.450)
[2021-05-20 23:08] LABS: Device ROOM AIR; Modified Allen's Test Pass; Site Drawn LEFT RADIAL
[2021-05-20 23:58] VITALS: BP 194/103; PULSE 102; RESP 28; O2SAT 96
[2021-05-21] VITALS (20 sets, daily range): BP systolic 134–168; BP diastolic 68–110; PULSE 82–109; RESP 18–40; TEMP 35.9–36.8; O2SAT 96–99; BMI 35.6
[2021-05-21] MEDS: hydrALAZINE HCL 20 MG/ML VIAL IV PUSH (00:53)
[2021-05-21] MEDS: FUROSEMIDE INJ 40 MG/4 ML VIAL IV PUSH ×2 (00:53→23:19)
[2021-05-21 01:10] LABS: Glucose Point of Care 67 mg/dl (65-105)
[2021-05-21 01:29] LABS: NT Pro B Type Natriuretic Pept > 35000 pg/mL (5-100)
[2021-05-21] MEDS: HALOPERIDOL LACTATE 5 MG/ML VIAL IM (01:49)
[2021-05-21 02:25] LABS: Glucose Point of Care 112 mg/dl (65-105)
[2021-05-21 04:06] LABS: Anion Gap 8 mmol/L (8-16); Blood Urea Nitrogen 47 mg/dL (9-20); Calcium 8.3 mg/dL (8.4-10.2); Carbon Dioxide 20 mmol/L (22-30); Chloride 113 mmol/L (98-107); Estimated CRCL calculation 34 ml/min; Estimated Glomerular Filt Rate 27; Glucose 70 mg/dL (65-110); Potassium 4.6 mmol/L (3.4-5.0); Sodium 141 mmol/L (137-145)
--- NOTE | 2021-05-21 04:41 | PM.IMHP ---
H&P: HPI History of Present Illness Date/Time: 05/21/21 04:41 Chief Complaint: Shortness of breath Narrative: This is a 45-year-old male with past medical history significant for type 2 diabetes mellitus insulin dependent, congestive heart failure, hypoxic respiratory failure, right BKA, left diabetic foot, chronic nonhealing ulcer of the right foot, hypertension. Patient presented to the emergency room today after he had an episode of hallucinations at home and had an argument with his sister he lives with his sister and and her and daughter. EMS was called and patient was brought to the emergency room. At this time patient is having hallucinations his seeing persons are not supposed to be there but his aware of his surroundings and he is oriented alert x4 states that he has been having shortness of breath and cough but no fevers no chills no rigors no nausea no vomiting no diarrhea no constipation his appetite has been poor but states that with the metformin his been able to control his blood sugars that have state in the 90s. Preliminary workup was significant for a brain natriuretic peptide of 35,000 S chest x-ray shows a right moderate pleural effusion and lung infiltrates. Decision has been made to admit the patient for further evaluation and treatment. Review of Systems Review of Systems: Shortness of breath and swelling Constitutional: Constitutional: Denies chills, Denies fatigue, Denies fever(s), Denies lethargy, Denies malaise, Denies night sweats, Reports poor appetite and Denies weakness Eyes: Eyes: Denies change in vision ENT: Denies dysphagia, Denies nasal congestion, Denies nasal discharge and Denies odynophagia Cardiovascular: Cardiovascular: Reports edema, Denies lightheadedness, Denies radiating jaw, neck or arm pain, Denies palpitations and Reports dyspnea Respiratory: Respiratory: Reports cough Gastrointestinal: Gastrointestinal: Denies dyspepsia, Denies heartburn, Denies diarrhea, Denies nausea and Denies vomiting Genitourinary: Genitourinary: Reports no additional male genitourinary complaints Musculoskeletal: Musculoskeletal: Reports no additional musculoskeletal complaints Integumentary/Breasts: Skin/Breast: Reports system reviewed and no additional complaints, except as docu Neurologic: Reports system reviewed and no additional complaints, except as documented Psychiatric: Psychiatric: Reports no additional psychiatric complaints Endocrine: Endocrine: Reports no additional endocrine complaints Hematologic/Lymphatic: Hematologic/Lymphatic: Reports no additional hematologic/lymphatic complaints Allergic/Immunologic: Allergic/Immunologic: Reports no additional allergic/immunologic complaints [facility] Past Medical History Medical History (Updated 05/21/21 @ 04:53 by Fidelina Tamayo MD) Anemia in chronic illness Cardiomyopathy Chronic kidney disease Combined congestive systolic and diastolic heart failure Mildly reduced LV systolic function with an EF of 40 to 45% and grade 2 diastolic dysfunction noted on echocardiogram dated 01/22/2021. Diverticulosis Hypertension Insulin dependent diabetes mellitus Hemoglobin A1c was 10.9% on 01/23/2021. Complicated by gastric dysmotility, neuropathy, and nephropathy. Ischemic cardiomyopathy Lexiscan stress on 01/26/2021 showed a large area of severe infarct involving the apical lateral and mid to basal anterolateral and inferolateral segments of left ventricle on myocardial perfusion imaging with a left ventricular ejection fracture measuring 45%. Peripheral vascular disease Severe mitral valve regurgitation (01/22/21) Surgical History Surgical History History of colonoscopy with polypectomy (01/27/21) 2 benign polyps removed. History of right below knee amputation Family History Family History Other Unknown family medical history Soci
--- NOTE | 2021-05-21 05:36 | ADMGEN ---
This patient, Gustavo Chacko, was admitted to IMU Room 206-01 at 0536. Patient/family oriented to hospital policies and general routines including ID bracelet, bed and alarms, visiting hours, pain management, procedures, bathroom and other care routines, personal items, smoking policy, room service/diet, and visiting hours. Information on how to activate the Rapid Response Team has been discussed. Patient/Family are encouraged to report perceived risks to care and to ask questions if they do not understand what they are told or what they should do.
[2021-05-21] MEDS: OLANZapine 10 MG INJ VIAL 5 MG IM (14:12)
[2021-05-21] MEDS: amLODIPine BESYLATE 5 MG TABLET 10 MG PO (14:14)
[2021-05-21] MEDS: glipiZIDE 5 MG TABLET 10 MG PO (14:14)
[2021-05-21] MEDS: WATER, STERILE FOR INJECTION 10 ML VIAL XX (14:20)
--- NOTE | 2021-05-21 14:29 | PM.CNCAR ---
Assessment and Plan Assessment and plan (1) Acute combined systolic and diastolic CHF, NYHA class 1: Code(s): I50.41 - Acute combined systolic (congestive) and diastolic (congestive) heart failure Status: Acute Assessment and Plan: Patient presents with acute on chronic systolic and diastolic heart failure, anasarca, pleural effusions. He appears short of breath although is not hypoxic. Claims compliance with medications Start diuretics with Bumex 1 mg IV push b.i.d.. Follow renal function closely with a daily BMP (2) Nonsustained ventricular tachycardia: Code(s): I47.2 - Ventricular tachycardia Status: Acute Assessment and Plan: Continue beta-malik Follow electrolytes EF is greater than 35% so not likely to benefit from ICD implant. (3) Ischemic cardiomyopathy: Code(s): I25.5 - Ischemic cardiomyopathy Status: Acute Assessment and Plan: EF 40-45%. Lexiscan suggests an old large infarct. No angina. Continue therapy with lisinopril, metoprolol Home meds do not include aspirin or a statin. The aspirin has likely been held due to anemia which has improved. Consdier adding ASA her Plavix prior to discharge. I will add a statin. (4) Chronic kidney disease, stage 3b: Code(s): N18.32 - Chronic kidney disease, stage 3b Status: Acute Assessment and Plan: Appears a little worse. (5) Encephalopathy: Code(s): G93.40 - Encephalopathy, unspecified Status: Acute Assessment and Plan: Appears to be hallucinating today. Oxygenating well. (6) Hypertension: Code(s): I10 - Essential (primary) hypertension Status: Acute Assessment and Plan: Not at goal. REsume usual home meds. History of Present Illness History of Present Illness Consult date/time: 05/21/21 14:29 Reason For Visit: CHF/acute on chronic renal failure/encephalopathy Narrative: Gustavo Chacko is a 45-year-old male with coronary disease whom we are asked to see at the request of Dr. Horn for advice and opinion regarding CHF and nonsustained ventricular tachycardia. He has a history of systolic CHF and ischemic cardiomyopathy EF 40-45%, non-STEMI in January, chronic kidney disease, iron deficiency anemia, diabetes and her right leg amputation. Last discharged in early February. The patient was apparently brought to the emergency room by his family as he was hallucinating. He was found to be in heart failure and admitted. He admits to shortness of breath, a nonproductive cough, and a lot of swelling in his legs and abdomen. He denies any chest pain, and states he has been compliant with his medications. He tells me his family dispenses them. He spends his time in a wheelchair or bed but states he can walk a little. He is not requiring any oxygen. Telemetry showed a 15 beat run of ventricular tachycardia. He admits to seeing his family and his neighbor in the room (hallucinating). We met the patient when he was admitted in January for diarrhea, CHF and anasarca. He had a non-STEMI with a peak troponin of 3.2. Echocardiogram in January showed EF of 40-45%, mild LV enlargement, grade 2 diastolic dysfunction, and no significant valve disease. Lexiscan stress test showed a large infarct of the apical lateral and mid to basal anterolateral and inferolateral segments, EF 45%. His chronic kidney disease stage IIIB. Review of Systems Constitutional: Constitutional: Reports fatigue and Reports weakness Eyes: Eyes: Reports no additional eye complaints ENT: Denies epistaxis Cardiovascular: Cardiovascular: Denies chest pain, Reports pedal edema and Reports leg edema Respiratory: Respiratory: Reports c
--- NOTE | 2021-05-21 14:50 | WPDURCON ---
Assessment and Plan Assessment and plan (1) Encephalopathy: Code(s): G93.40 - Encephalopathy, unspecified Status: Acute (2) Urinary incontinence: Code(s): R32 - Unspecified urinary incontinence Status: Acute Assessment and Plan: The patient had 75cc of clear yellow urine after parra insertion. He had 500cc on his bladder scan then had incontinence after the scan. D/t not having retention, I would advise removing his parra at discharge, keep in place for I&O purposes and remove when no longer needed. He can remain incontinent to reduce his risk of UTI's versus a chronic parra. No need to begin BPH treatment as there was no difficulty when placing his 16fr coude catheter. (3) Scrotal edema: Code(s): N50.89 - Other specified disorders of the male genital organs Status: Acute (4) Penile edema: Code(s): N48.89 - Other specified disorders of penis Status: Acute Assessment and Plan: Manual decompression was used prior to parra insertion to aid in visualizing his urethral meatus. With the help of the nursing students at the bedside and manual pressure of the base of the penis we were able to retract his edematous foreskin and visualize his meatus making parra placement easy. Apply a scrotal support and place penis in an upright position to naturally decompress the edema. Edema is likely dependent but will order a scrotal US to ensure no underlying concerns exist. Urology Consult Note HPI Date Seen: 05/21/21 Requesting Physician: Fidelina Tamayo MD Primary Care Provider: PHYSICIAN NOT ON STAFF Consult Narrative Narrative: Gustavo Chacko is a 45 year old male who presented to the ER yesterday via ambulance for hallucinations at home. He lives with his sister and her family and is [place]ar[place]uan speaking but understands Irish. He has a history of diabetes and CHF with LE amputations and current LE wounds. He is currently admitted for treatment of Encephalopathy. We were asked to come and place a parra d/t retention of urine. He had >500cc on his bladder scan and had not urinated since very early this morning. He then had incontinence in his bed prior to my attempt at placing a parra. His UA is slightly suspicious of a UTI, and a culture was collected after catheter insertion today. The team had a difficult time catheterizing him on the floor, they had multiple failed attempts. He has scrotal and penile dependent edema present and is uncircumcised making it very difficult to find the urethral meatus. He is not treated for BPH. Review of Systems Cardiovascular: Cardiovascular: Denies chest pain, Reports leg ulcers, Reports leg edema and Reports dyspnea Respiratory: Respiratory: Reports dyspnea Gastrointestinal: Gastrointestinal: Denies abdominal pain, Denies nausea and Denies vomiting Genitourinary: Genitourinary: Denies hematuria, Denies genital pain, Denies dysuria, Denies flank pain, Reports scrotal swelling, Denies testicular pain, Denies urinary frequency and Reports urinary incontinence [facility] Past Medical History Medical History Anemia in chronic illness Cardiomyopathy Chronic kidney disease Combined congestive systolic and diastolic heart failure Mildly reduced LV systolic function with an EF of 40 to 45% and grade 2 diastolic dysfunction noted on echocardiogram dated 01/22/2021. Diverticulosis Hypertension Insulin dependent diabetes mellitus Hemoglobin A1c was 10.9% on 01/23/2021. Complicated by gastric dysmotility, neuropathy, and nephropathy. Ischemic cardiomyopathy Lexiscan stress on 01/26/2021 showed a large area of severe infarct involving the apical lateral and mid to basal anterolateral and inferolateral segments of left ventricle on myocardial perfusion imaging with a left ventricular ejection fracture measuring 45%. Peripheral vascular disease Severe mitral valve regurgitation (01/22/21) Surgical Histor
--- NOTE | 2021-05-21 14:55 | PM.CNNEP ---
Assessment and Plan Assessment and plan (1) GLENN (acute kidney injury): Code(s): N17.9 - Acute kidney failure, unspecified Status: Acute Assessment and Plan: due to decompensated heart failure and need for aggressive diuresis cannot discount an element of kidney disease progression follow trend of labs/urine output with diuresis (2) Stage 3b chronic kidney disease: Code(s): N18.32 - Chronic kidney disease, stage 3b Status: Chronic Assessment and Plan: suspect baseline creatinine 1.9 - 2.3mg/dl due to biopsy proven diabetic nephropathy along with HTN/vascular disease (3) Hallucinations: Code(s): R44.3 - Hallucinations, unspecified Status: Acute Assessment and Plan: etiology? CT of head negative follow symptoms (4) Acute combined systolic and diastolic CHF, NYHA class 1: Code(s): I50.41 - Acute combined systolic (congestive) and diastolic (congestive) heart failure Status: Acute Assessment and Plan: well known issues with several recent hospitalizations for this problems some issues with decompensation related to compliance Cardiology following agree with IV diuresis follow daily weights and I/Os (5) Anasarca: Code(s): R60.1 - Generalized edema Status: Acute Assessment and Plan: due to heart failure but his nephrotic range proteinuria/syndrome is also playing a role continue with diuresis may have to accept a higher creatinine to achieve euvolemia (6) Hypertension: Code(s): I10 - Essential (primary) hypertension Status: Acute Assessment and Plan: suboptimal control follow hemodyamics with diuresis -- may improve BP (7) Diabetes: Code(s): E11.9 - Type 2 diabetes mellitus without complications Status: Chronic Assessment and Plan: follow accuchecks glycemic control Will continue to follow. History of Present Illness Reason for Consult Consult date: 05/21/21 Reason for consult: chronic renal failure Chief Complaint Chief complaint: CHF/acute on chronic renal failure/encephalopathy History of Present Illness Narrative: The patient is a 45-year-old male with past medical history as outlined below who presented to [facility] Emergency room for further evaluation of altered mental status. Most of the information I have obtained is from review of the electronic medical record as well as what information I can gather via process automation engineer as this patient only speaks Georgian. Apparently, he was having an argument with his sister and [id number] and at some point the stated that he was crazy and needed to see a doctor. They apparently called 911 and EMS brought the patient in for further evaluation as the patient was tired of arguing with his family. Per EMS, the patient appeared to be alert oriented x4 during their transport of him to the emergency room and this was confirmed by the ER physician as well. He denies any acute complaints with regard to chest pain shortness of breath nausea vomiting or abdominal pain. He was noted to have bilateral lower extremity edema but he states that this is actually somewhat better than what it usually is although he does report some weeping wounds in his lower extremities which are being cared for by wound care. Subsequent workup and evaluation in the emergency room demonstrated labs consistent with his known history of chronic kidney disease and known issues with volume overload (elevated BNP). His chest x-ray showed a right moderate pleural effusion and lung infiltrate and a CT scan of his head did not demonstrate any acute intracranial pathology. On further questioning he did relate some complaints of worsening shortness of breath in association with cough. He also reports that appetite has been somewhat poor. While he was in the emergency room, nursing reported that the patient was having visual hallucinations...specifically
--- NOTE | 2021-05-21 15:20 | PM.IMPN ---
Progress Note: A&P Assessment and Plan (1) Combined congestive systolic and diastolic heart failure: Code(s): I50.40 - Unspecified combined systolic (congestive) and diastolic (congestive) heart failure Status: Acute Assessment and Plan: Admit to IMU Aggressive diuresis Daily intake and output Daily basic metabolic profile Recent echocardiogram done 05/21 Interval history: patient still hallucinating unable to provide any review of symptoms, there was a concern the patient was retaining urine Ramirez catheter was placed with assistance from urology recommended patient will benefit from from flowmax. upon arrival patient was quite short of breath with BNP of 35,000 and a history systolic dysfunction with ejection fraction of 45% patient is seen by Cardiology started the patient on Bumex 1 mg b.i.d. will continue to monitor I's and O's, patient with diabetic wound ulcers will have wound team evaluate the patient, patient continued to hallucinate will benefit from psychiatry evaluation medically stable, will continue to monitor will have PT OT evaluate the patient further recommendation to follow. (2) Infiltrate of lung present on chest x-ray: Code(s): R91.8 - Other nonspecific abnormal finding of lung field Status: Acute Assessment and Plan: Patient with no fever no leukocytosis no sputum production Blood cultures in progress No antibiotics at this time Patient with significant fluid retention (3) Acute respiratory failure with hypoxia: Code(s): J96.01 - Acute respiratory failure with hypoxia Status: Acute Assessment and Plan: Oxygen by nasal cannula as needed (4) Insulin dependent diabetes mellitus: Status: Chronic Assessment and Plan: Holding metformin Continue insulin Carb consistent diet (5) CAD (coronary artery disease): Code(s): I25.10 - Atherosclerotic heart disease of [place] coronary artery without angina pectoris Status: Acute Assessment and Plan: Continue home meds No chest pain Supportive care (6) Chronic kidney disease: Code(s): N18.9 - Chronic kidney disease, unspecified Status: Chronic Assessment and Plan: BUN and creatinine at patient's baseline (7) Below-knee amputation of right lower extremity: Code(s): S88.111A - Complete traumatic amputation at level between knee and ankle, right lower leg, initial encounter Status: Acute Assessment and Plan: For precautions (8) Diabetic ulcer of left foot: Code(s): E11.621 - Type 2 diabetes mellitus with foot ulcer; L97.529 - Non-pressure chronic ulcer of other part of left foot with unspecified severity Status: Acute Assessment and Plan: Wound care consult Local care Continue to monitor Subjective Date/time seen: 05/21/21 15:20 Chief Complaint: Shortness of breath Narrative: This is a 45-year-old male with past medical history significant for type 2 diabetes mellitus insulin dependent, congestive heart failure, hypoxic respiratory failure, right BKA, left diabetic foot, chronic nonhealing ulcer of the right foot, hypertension. Patient presented to the emergency room today after he had an episode of hallucinations at home and had an argument with his sister he lives with his sister and and her and daughter. EMS was called and patient was brought to the emergency room. At this time patient is having hallucinations his seeing persons are not supposed to be there but his aware of his surroundings and he is oriented alert x4 states that he has been having shortness of breath and cough but no fevers no chills no rigors no nausea no vomiting no diarrhea no constipation his appetite has been poor but states that with the metformin his been able to control his blood sugars that have state in the 90s. Preliminary workup was significant for a brain natriuretic peptide of 35,000 S chest x-ray shows a right moderate pleural effusion and lung
--- NOTE | 2021-05-21 15:24 | PC.NURSE ---
On 05/21/21, the student, [Renita Ching], provided care and completed [facility] documentation on this patient. I have reviewed the student's documentation and agree with the findings.
[2021-05-21 16:25] LABS: Glucose Point of Care 102 mg/dl (65-105)
[2021-05-21] MEDS: BUMETANIDE INJ 1 MG/4 ML VIAL IV PUSH ×2 (17:02→18:44)
[2021-05-21] MEDS: BUMETANIDE 1 MG TABLET PO (17:05)
[2021-05-21 21:07] LABS: Glucose Point of Care 82 mg/dl (65-105)
[2021-05-21] MEDS: ALBUTEROL SULFATE NEB 2.5 MG/0.5 ML INH INHALATION (21:18)
[2021-05-21] MEDS: OLANZapine 10 MG INJ VIAL IM (21:20)
[2021-05-21] MEDS: METOPROLOL TARTRATE 50 MG TAB PO (22:40)
[2021-05-21] MEDS: methylPREDNISolone SOD SUCC 125 MG VIAL IV PUSH (23:19)
[2021-05-22] VITALS (31 sets, daily range): BP systolic 118–175; BP diastolic 66–89; PULSE 45–114; RESP 20–37; TEMP 36.1–36.8; O2SAT 91–100
[2021-05-22] MEDS: IPRATROPIUM BR 0.02% INH SOLN 0.5 MG/2.5 ML VIAL INHALATION ×3 (00:12→20:45)
[2021-05-22] MEDS: ALBUTEROL SULFATE NEB 2.5 MG/0.5 ML INH INHALATION ×3 (00:12→20:45)
[2021-05-22] MEDS: ALBUTEROL SULFATE NEB 2.5 MG/0.5 ML INH 10 MG INHALATION (00:59)
[2021-05-22] MEDS: MORPHINE SULFATE (*CRX) 2 MG/ML INJ IV PUSH (01:18)
[2021-05-22] MEDS: BUMETANIDE INJ 2.5 MG/10 ML VIAL IV PUSH (01:19)
[2021-05-22] MEDS: HALOPERIDOL LACTATE 5 MG/ML VIAL 10 MG IM (03:03)
--- NOTE | 2021-05-22 04:05 | PCRCNOTE ---
ABG ordered for 1 hour after initiation of BiPAP. Unable to obtain ABG due to pt's behavior. Even with assistance to restrain him, we were unable to safely stick the pt for the ABG. Dr. Tamayo was notified and said it was OK to skip it for now.
[2021-05-22 07:39] LABS: Basophils Percent Auto 0.1 % (0.2-1.2); Hematocrit 34.2 % (42.0-52.0); Immature Granulocyte Absolute 0.04 K/mm3 (0.00-0.031); Immature Granulocyte Percent A 0.5 % (0-0.5); Lymphocytes Absolute Auto 0.23 K/mm3 (0.9-3.2); Lymphocytes Percent Auto 2.7 % (18.3-44.2); Mean Corpuscular HGB Conc 29.2 g/dl (32-36); Mean Corpuscular Hemoglobin 25.9 pg (26-34); Mean Corpuscular Volume 88.6 fl (80-100); Mean Platelet Volume 11.6 fl (7.4-10.4); Monocytes Absolute Auto 0.1 K/mm3 (0.1-0.6); Monocytes Percent Auto 0.6 % (2.6-8.5); Neutrophils Absolute Auto 8.1 K/mm3 (1.3-6.7); Neutrophils Percent Auto 96.1 % (45.5-73.1); Platelet Count Result 241 k/mm3 (150-375); Red Blood Count 3.86 M/mm3 (4.6-6.20); Red Cell Distribution Width 17.1 % (11.5-14.5); White Blood Count 8.5 K/mm3 (4.5-10.0)
[2021-05-22 07:53] LABS: Alanine Aminotransferase 20 U/L (4-50); Albumin Level 3.1 g/dL (3.5-5.1); Alkaline Phosphatase 221 U/L (38-126); Anion Gap 8 mmol/L (8-16); Aspartate Amino Transferase 43 U/L (17-59); Bilirubin,Total 0.3 mg/dL (0.2-1.3); Blood Urea Nitrogen 45 mg/dL (9-20); Calcium 8.6 mg/dL (8.4-10.2); Carbon Dioxide 21 mmol/L (22-30); Chloride 113 mmol/L (98-107); Estimated CRCL calculation 34 ml/min; Estimated Glomerular Filt Rate 25; Glucose 125 mg/dL (65-110); Potassium 5.2 mmol/L (3.4-5.0); Sodium 142 mmol/L (137-145)
[2021-05-22 08:16] LABS: Glucose Point of Care 105 mg/dl (65-105)
[2021-05-22 08:25] LABS: Platelet Estimate Adequate (Adequate)
[2021-05-22 08:26] LABS: Hypochromasia 1+ (NORMAL); Poikilocytosis 1+ (NORMAL)
--- NOTE | 2021-05-22 09:25 | PM.PNCARD ---
Progress Note: A&P Assessment and Plan (1) Acute combined systolic and diastolic CHF, NYHA class 1: Code(s): I50.41 - Acute combined systolic (congestive) and diastolic (congestive) heart failure Status: Acute Assessment and Plan: Patient presents with acute on chronic systolic and diastolic heart failure, anasarca, pleural effusions. He appears short of breath although is not hypoxic. Continue diuretics with Bumex 1 mg IV push b.i.d.. Still has significant anasarca and pulmonary rales. Follow renal function closely with a daily BMP - BUN/Cr stable today (2) Nonsustained ventricular tachycardia: Code(s): I47.2 - Ventricular tachycardia Status: Acute Assessment and Plan: Continue beta-malik Follow electrolytes EF is greater than 35% so not likely to benefit from ICD implant. (3) Ischemic cardiomyopathy: Code(s): I25.5 - Ischemic cardiomyopathy Status: Acute Assessment and Plan: EF 40-45%. Lexiscan suggests an old large infarct. No angina. Continue therapy with lisinopril, metoprolol Home meds do not include aspirin or a statin. The aspirin has likely been held due to anemia which has improved. Hgb did drop to 10.0 from 11.3 yesterday. Consider adding ASA prior to d/c if h/h are stable. On statin. (4) Chronic kidney disease, stage 3b: Code(s): N18.32 - Chronic kidney disease, stage 3b Status: Acute Assessment and Plan: Appears a little worse. (5) Encephalopathy: Code(s): G93.40 - Encephalopathy, unspecified Status: Acute Assessment and Plan: Appears to be hallucinating today. Oxygenating well. (6) Hypertension: Code(s): I10 - Essential (primary) hypertension Status: Acute Assessment and Plan: Not at goal. Resume usual home meds. Subjective Date/time seen: 05/22/21 09:25 Cardiology follow up for CHF Date of service 05/22/2021: He is confused today and unable to answer my questions. Tachypneic but otherwise appears comfortable. Receiving nebulizer treatment Review of Systems Review of Systems: ROS unobtainable: Yes unobtainable due to mental status Constitutional: Constitutional: Reports fatigue and Reports weakness Eyes: Eyes: Reports no additional eye complaints ENT: Denies epistaxis Cardiovascular: Cardiovascular: Denies chest pain, Reports pedal edema, Reports leg edema, Reports dyspnea and Reports dyspnea on exertion Respiratory: Respiratory: Reports chest congestion, Reports cough, Reports dyspnea and Reports dyspnea on exertion Gastrointestinal: Gastrointestinal: Denies abdominal pain Musculoskeletal: Musculoskeletal: Reports no additional musculoskeletal complaints Integumentary/Breasts: Skin/Breast: Denies rash Neurologic: Reports confusion and Reports weakness Psychiatric: Psychiatric: Reports confusion Endocrine: Endocrine: Reports fatigue Exam Narrative: Ill-appearing male who is mildly tachypneic. Alert but not oriented. He does not answer my questions. Const: General: alert, confusion and uncomfortable Orientation/consciousness: confusion Limitations: altered mental status and physical limitations Other: R BKA HENMT: Head: normal to inspection General nose exam: no epistaxis Eyes: EOM: EOMs intact bilaterally Neck: Neck: supple Thyroid: thyroid normal Lymphatic: lymphadenopathy not noted Resp: Effort & Inspection: abnormal respiratory effort Auscultation: not clear to auscultation bilaterally, rales and diminished lung sounds (In bases) Cardio: Rate: regular rate Rhythm: regular rhythm Heart sounds: no murmurs GI: Inspection: distended GI Palp: Yes Soft to palpation Other: Edema of the abdominal wall, probable ascites Skin: General skin exam: normal color Wounds: wounds noted (Hyperpigmentation, chr
[2021-05-22] MEDS: METOPROLOL TARTRATE 50 MG TAB PO (10:06)
[2021-05-22] MEDS: amLODIPine BESYLATE 5 MG TABLET 10 MG PO (10:07)
[2021-05-22] MEDS: lisinopriL 20 MG TABLET PO (10:07)
[2021-05-22] MEDS: BUMETANIDE INJ 1 MG/4 ML VIAL IV PUSH ×2 (10:07→18:45)
[2021-05-22] MEDS: glipiZIDE 5 MG TABLET 10 MG PO (10:07)
[2021-05-22] MEDS: ATORVASTATIN 40 MG TABLET PO (10:07)
[2021-05-22 11:25] LABS: Glucose Point of Care 103 mg/dl (65-105)
--- NOTE | 2021-05-22 12:42 | PM.PNNEP ---
Progress Note: A&P Assessment and Plan (1) GLENN (acute kidney injury): Code(s): N17.9 - Acute kidney failure, unspecified Status: Acute Assessment and Plan: due to decompensated heart failure and need for aggressive diuresis cannot discount an element of kidney disease progression creatinine but not surprising in the context of IV diuretics follow trend of labs/urine output with diuresis (2) Stage 3b chronic kidney disease: Code(s): N18.32 - Chronic kidney disease, stage 3b Status: Chronic Assessment and Plan: suspect baseline creatinine 1.9 - 2.3mg/dl due to biopsy proven diabetic nephropathy along with HTN/vascular disease suspect creatinine/kidney function will always fluctuate depending on his volume status and necessity of diuretics to achieve euvolemia (3) Hallucinations: Code(s): R44.3 - Hallucinations, unspecified Status: Acute Assessment and Plan: etiology? CT of head negative follow symptoms (4) Acute combined systolic and diastolic CHF, NYHA class 1: Code(s): I50.41 - Acute combined systolic (congestive) and diastolic (congestive) heart failure Status: Acute Assessment and Plan: well known issues with several recent hospitalizations for this problems some issues with decompensation related to compliance Cardiology following agree with IV diuresis will hold DEMARCUS-I in the context of diuresis follow daily weights and I/Os (5) Anasarca: Code(s): R60.1 - Generalized edema Status: Acute Assessment and Plan: due to heart failure but his nephrotic range proteinuria/syndrome is also playing a role continue with diuresis may have to accept a higher creatinine to achieve euvolemia (6) Hypertension: Code(s): I10 - Essential (primary) hypertension Status: Acute Assessment and Plan: suboptimal control follow hemodyamics with diuresis -- may improve BP (7) Diabetes: Code(s): E11.9 - Type 2 diabetes mellitus without complications Status: Chronic Assessment and Plan: follow accuchecks glycemic control Will continue to follow. Subjective Date/time seen: 05/22/21 12:42 Seems a bit more confused today but in no apparent distress; breathing seems stable although he was noted to be tachypneic earlier in the day; reasonable diuresis noted but BUN + creatinine trending up; no issues/events overnight or earlier this AM. Exam Narrative: General: ill appearing male in NAD Heart: normal S1 and S2; no rub Lungs: bibasilar crackles present Abdomen: soft, nontender, nondistended, positive bowel sounds Extremities: no cyanosis or clubbing; edema noted (LEs, thighs, scrotum, sacrum, abdominal wall) Skin: warm and dry Objective Data Vital Signs Vital Signs: Vital Signs Temp Pulse Resp BP Pulse Ox 05/22/21 12:00 79 05/22/21 11:27 36.8 C 94 22 H 154/89 H 97 05/22/21 10:06 99 05/22/21 10:00 74 05/22/21 09:41 100 28 H 05/22/21 09:31 100 28 H 05/22/21 09:28 92 05/22/21 08:00 101 H 05/22/21 07:30 36.4 C 45 L 20 118/66 94 05/22/21 06:00 98 05/22/21 04:20 99 25 H 100 05/22/21 04:00 36.1 C L 99 26 H 138/87 100 05/22/21 02:30 114 H 34 H 100 05/22/21 02:00 111 H 05/22/21 01:00 111 H 32 H 05/22/21 00:22 110 H 32 H 05/22/21 00:10 108 H 32 H 05/22/21 00:00 36.3 C L 111 H 26 H 175/84 H 97 05/21/21 22:40 109 H 05/21/21 22:00 104 H 05/21/21 21:30 103 H 26 H 05/21/21 21:21 97 05/21/21 21:20 105 H 30 H 05/21/21 20:00 36.8 C 103 H 40 H 161/87 H 96 05/21/21 18:00 92 05/21/21 17:13 82 32 H 165/84 H Intake/Output Intake/Output: Intake & Output 05/19/21 05/20/21 05/21/21 05/22/21 23:59 23:59 23:59 23:59 Intake Total 360 500 Output Total 1700 1950 Balance -1340 -1450 Meds/Results Medications:
--- NOTE | 2021-05-22 12:42 | P.PNNP_ITS ---
Progress Note: A&P Assessment and Plan (1) GLENN (acute kidney injury): Code(s): N17.9 - Acute kidney failure, unspecified Status: Acute Assessment and Plan: * due to decompensated heart failure and need for aggressive diuresis * cannot discount an element of kidney disease progression * creatinine but not surprising in the context of IV diuretics * follow trend of labs/urine output with diuresis (2) Stage 3b chronic kidney disease: Code(s): N18.32 - Chronic kidney disease, stage 3b Status: Chronic Assessment and Plan: * suspect baseline creatinine 1.9 - 2.3mg/dl * due to biopsy proven diabetic nephropathy along with HTN/vascular disease * suspect creatinine/kidney function will always fluctuate depending on his volume status and necessity of diuretics to achieve euvolemia (3) Hallucinations: Code(s): R44.3 - Hallucinations, unspecified Status: Acute Assessment and Plan: * etiology? * CT of head negative * follow symptoms (4) Acute combined systolic and diastolic CHF, NYHA class 1: Code(s): I50.41 - Acute combined systolic (congestive) and diastolic (congestive) heart failure Status: Acute Assessment and Plan: * well known issues with several recent hospitalizations for this problems * some issues with decompensation related to compliance * Cardiology following * agree with IV diuresis * will hold DEMARCUS-I in the context of diuresis * follow daily weights and I/Os (5) Anasarca: Code(s): R60.1 - Generalized edema Status: Acute Assessment and Plan: * due to heart failure but his nephrotic range proteinuria/syndrome is also playing a role * continue with diuresis * may have to accept a higher creatinine to achieve euvolemia (6) Hypertension: Code(s): I10 - Essential (primary) hypertension Status: Acute Assessment and Plan: * suboptimal control * follow hemodyamics with diuresis -- may improve BP (7) Diabetes: Code(s): E11.9 - Type 2 diabetes mellitus without complications Status: Chronic Assessment and Plan: * follow accuchecks * glycemic control Will continue to follow. Subjective Date/time seen: 05/22/21 12:42 Seems a bit more confused today but in no apparent distress; breathing seems stable although he was noted to be tachypneic earlier in the day; reasonable diuresis noted but BUN + creatinine trending up; no issues/events overnight or earlier this AM. Exam Narrative: General: ill appearing male in NAD Heart: normal S1 and S2; no rub Lungs: bibasilar crackles present Abdomen: soft, nontender, nondistended, positive bowel sounds Extremities: no cyanosis or clubbing; edema noted (LEs, thighs, scrotum, sacrum, abdominal wall) Skin: warm and dry Objective Data Vital Signs Vital Signs: Vital Signs Temp Pulse Resp BP Pulse Ox 05/22/21 12:00 79 05/22/21 11:27 36.8 C 94 22 H 154/89 H 97 05/22/21 10:06 99 05/22/21 10:00 74 05/22/21 09:41 100 28 H 05/22/21 09:31 100 28 H 05/22/21 09:28 92 05/22/21 08:00 101 H 05/22/21 07:30 36.4 C 45 L 20 118/66 94 05/22/21 06:00 98 05/22/21 04:20 99 25 H 100 05/22/21 04:00 36.1 C L 99 26 H 138/87 100 05/22/21 02:30 114 H 34 H 100
--- NOTE | 2021-05-22 14:27 | PCRCNOTE ---
Window of time for administration has passed. See next scheduled administration.
[2021-05-22] MEDS: GABAPENTIN 300 MG CAPSULE PO ×2 (14:56→18:45)
[2021-05-22] MEDS: QUEtiapine FUMARATE 25 MG TABLET 50 MG PO ×2 (14:56→18:43)
--- NOTE | 2021-05-22 15:05 | PCOTNOTE ---
Attempted to see patient this afternoon. Per nurse, patient is inappropriate for therapy at this time and recommends to try tomorrow. Will continue to follow.
--- NOTE | 2021-05-22 16:47 | PM.IMPN ---
Progress Note: A&P Assessment and Plan (1) Combined congestive systolic and diastolic heart failure: Code(s): I50.40 - Unspecified combined systolic (congestive) and diastolic (congestive) heart failure Status: Acute Assessment and Plan: Admit to IMU Aggressive diuresis Daily intake and output Daily basic metabolic profile Recent echocardiogram done 05/22/21 16:47 05/21 Interval history: patient still hallucinating unable to provide any review of symptoms, there was a concern the patient was retaining urine Ramirez catheter was placed with assistance from urology recommended patient will benefit from from flowmax. upon arrival patient was quite short of breath with BNP of 35,000 and a history systolic dysfunction with ejection fraction of 45% patient is seen by Cardiology started the patient on Bumex 1 mg b.i.d. will continue to monitor I's and O's, patient with diabetic wound ulcers will have wound team evaluate the patient, patient continued to hallucinate will benefit from psychiatry evaluation medically stable, will continue to monitor will have PT OT evaluate the patient further recommendation to follow. 05/22 Interval history: patient continued hallucinate unable to provide any review of symptom, seen by Cardiology being diuresed with Bumex 1 mg b.i.d. IV, still has a quite anasarca, patient continue to hallucinating unable to provide any history, being given Zyprexa 5 mg IM PRN., will add Seroquel 50 mg t.i.d. to help reduce hallucination and agitation and monitor. (2) Infiltrate of lung present on chest x-ray: Code(s): R91.8 - Other nonspecific abnormal finding of lung field Status: Acute Assessment and Plan: Patient with no fever no leukocytosis no sputum production Blood cultures in progress No antibiotics at this time Patient with significant fluid retention (3) Acute respiratory failure with hypoxia: Code(s): J96.01 - Acute respiratory failure with hypoxia Status: Acute Assessment and Plan: Oxygen by nasal cannula as needed (4) Insulin dependent diabetes mellitus: Status: Chronic Assessment and Plan: Holding metformin Continue insulin Carb consistent diet (5) CAD (coronary artery disease): Code(s): I25.10 - Atherosclerotic heart disease of [place] coronary artery without angina pectoris Status: Acute Assessment and Plan: Continue home meds No chest pain Supportive care (6) Chronic kidney disease: Code(s): N18.9 - Chronic kidney disease, unspecified Status: Chronic Assessment and Plan: BUN and creatinine at patient's baseline (7) Below-knee amputation of right lower extremity: Code(s): S88.111A - Complete traumatic amputation at level between knee and ankle, right lower leg, initial encounter Status: Acute Assessment and Plan: For precautions (8) Diabetic ulcer of left foot: Code(s): E11.621 - Type 2 diabetes mellitus with foot ulcer; L97.529 - Non-pressure chronic ulcer of other part of left foot with unspecified severity Status: Acute Assessment and Plan: Wound care consult Local care Continue to monitor Subjective Date/time seen: 05/22/21 16:47 05/21 Interval history: patient still hallucinating unable to provide any review of symptoms, there was a concern the patient was retaining urine Ramirez catheter was placed with assistance from urology recommended patient will benefit from from flowmax. upon arrival patient was quite short of breath with BNP of 35,000 and a history systolic dysfunction with ejection fraction of 45% patient is seen by Cardiology started the patient on Bumex 1 mg b.i.d. will continue to monitor I's and O's, patient with diabetic wound ulcers will have wound team evaluate the patient, patient continued to hallucinate will benefit from psychiatry evaluation medically stable, will continue to monitor will have PT OT evaluate the patient further livia
[2021-05-22 17:27] LABS: Glucose Point of Care 72 mg/dl (65-105)
[2021-05-22] MEDS: DEXTROSE 50% 25 GM/50 ML SYRINGE IV PUSH ×2 (22:06→22:28)
[2021-05-22 22:25] LABS: Glucose Point of Care 44 mg/dl (65-105)
[2021-05-22 22:25] LABS: Glucose Point of Care 37 mg/dl (65-105)
[2021-05-22 22:25] LABS: Glucose Point of Care 41 mg/dl (65-105)
[2021-05-22 22:50] LABS: Glucose Point of Care 100 mg/dl (65-105)
[2021-05-22 23:20] LABS: Glucose Point of Care 90 mg/dl (65-105)
[2021-05-23] VITALS (23 sets, daily range): BP systolic 108–145; BP diastolic 56–73; PULSE 55–102; RESP 18–45; TEMP 36–36.7; O2SAT 98–100
[2021-05-23 00:29] LABS: Glucose Point of Care 87 mg/dl (65-105)
[2021-05-23] MEDS: ALBUTEROL SULFATE NEB 2.5 MG/0.5 ML INH INHALATION ×6 (00:34→19:53)
[2021-05-23] MEDS: IPRATROPIUM BR 0.02% INH SOLN 0.5 MG/2.5 ML VIAL INHALATION ×6 (00:34→19:53)
[2021-05-23] MEDS: DEXTROSE 50% 25 GM/50 ML SYRINGE IV PUSH ×4 (00:41→09:00)
[2021-05-23] MEDS: HYDROCORTISONE SODIUM SUCCINATE 100 MG/2 ML VIAL IV PUSH (02:22)
[2021-05-23] MEDS: GLUCAGON FOR INJ 1 MG VIAL IM ×2 (02:31→05:40)
[2021-05-23 03:17] LABS: Glucose Point of Care 83 mg/dl (65-105)
[2021-05-23 04:07] LABS: Glucose Point of Care 88 mg/dl (65-105)
[2021-05-23 04:11] LABS: Glucose Point of Care 86 mg/dl (65-105)
[2021-05-23 04:16] LABS: Hematocrit 30.9 % (42.0-52.0); Hemoglobin 9.1 g/dL (14.0-18.0); Mean Corpuscular HGB Conc 29.4 g/dl (32-36); Mean Corpuscular Hemoglobin 26.4 pg (26-34); Mean Corpuscular Volume 89.6 fl (80-100); Mean Platelet Volume 11.4 fl (7.4-10.4); Platelet Count Result 198 k/mm3 (150-375); Red Blood Count 3.45 M/mm3 (4.6-6.20); Red Cell Distribution Width 17.3 % (11.5-14.5); White Blood Count 9.4 K/mm3 (4.5-10.0)
[2021-05-23 04:37] LABS: Albumin Level 2.6 g/dL (3.5-5.1); Anion Gap 7 mmol/L (8-16); Blood Urea Nitrogen 58 mg/dL (9-20); Calcium 8.1 mg/dL (8.4-10.2); Carbon Dioxide 22 mmol/L (22-30); Chloride 111 mmol/L (98-107); Estimated CRCL calculation 31 ml/min; Estimated Glomerular Filt Rate 23; Glucose 82 mg/dL (65-110); Phosphorus 6.2 mg/dL (2.5-4.5); Potassium 4.6 mmol/L (3.4-5.0); Sodium 140 mmol/L (137-145)
[2021-05-23 05:31] LABS: Glucose Point of Care 40 mg/dl (65-105)
[2021-05-23 05:31] LABS: Glucose Point of Care 42 mg/dl (65-105)
[2021-05-23 06:06] LABS: Glucose Point of Care 176 mg/dl (65-105)
--- NOTE | 2021-05-23 06:41 | PM.PNCARD ---
Progress Note: A&P Assessment and Plan (1) Acute combined systolic and diastolic CHF, NYHA class 1: Code(s): I50.41 - Acute combined systolic (congestive) and diastolic (congestive) heart failure Status: Acute Assessment and Plan: Patient presents with acute on chronic systolic and diastolic heart failure, anasarca, pleural effusions. He appears short of breath although is not hypoxic. Being supported with BiPAP. Currently administering Bumex 1 mg IV push b.i.d.. Still has significant anasarca. However, because the BUN and creatinine are increasing I will reduce it to once daily for today and re-evaluate renal function tomorrow. Follow renal function closely with a daily BMP - BUN/Cr are rising. (2) Nonsustained ventricular tachycardia: Code(s): I47.2 - Ventricular tachycardia Status: Acute Assessment and Plan: Continue beta-malik Follow electrolytes EF is greater than 35% so not likely to benefit from ICD implant. (3) Ischemic cardiomyopathy: Code(s): I25.5 - Ischemic cardiomyopathy Status: Acute Assessment and Plan: EF 40-45%. Lexiscan suggests an old large infarct. No angina. Continue therapy with lisinopril, metoprolol Home meds do not include aspirin or a statin. The aspirin has likely been held due to anemia which has improved. Hgb did drop from 11.3 on admission to 9.1 today. Daily H&H Consider adding ASA prior to d/c if h/h are stable. On statin. (4) Chronic kidney disease, stage 3b: Code(s): N18.32 - Chronic kidney disease, stage 3b Status: Acute Assessment and Plan: Appears a little worse. Has nephrotic range proteinuria which is contributing to the patient's anasarca. (5) Hypertension: Code(s): I10 - Essential (primary) hypertension Status: Acute Assessment and Plan: Improved, on usual home meds. (6) Encephalopathy: Code(s): G93.40 - Encephalopathy, unspecified Status: Acute Assessment and Plan: Has been hallucinating and is confused. Oxygenating well. Subjective Date/time seen: 05/23/21 06:41 Interval history: Follow-up for acute on chronic CHF, HTN, nonsustained ventricular tachycardia, presumed CAD. Encephalopathic. 05/21/2021: Started on Bumex 1 mg IV push b.i.d. for anasarca 05/22/2021: He is confused today and unable to answer my questions. Tachypneic but otherwise appears comfortable. Receiving nebulizer treatment. Continue IV Bumex Date of service 05/23/2021: Drowsy and confused, remains on BiPAP with good oxygenation.. I's and O's 1300/2450. BUN and creatinine have increased. Telemetry shows NSR with PVCs. Review of Systems Review of Systems: ROS unobtainable: Yes unobtainable due to mental status Constitutional: Constitutional: Reports fatigue and Reports weakness Eyes: Eyes: Reports no additional eye complaints Cardiovascular: Cardiovascular: Denies chest pain, Reports pedal edema and Reports leg edema Respiratory: Respiratory: Reports no additional respiratory complaints Gastrointestinal: Gastrointestinal: Denies abdominal pain and Reports bloating Neurologic: Reports Abnormal speech present (Garbled) and Reports confusion Exam Narrative: Ill-appearing male, sleeping on BiPAP, no distress Const: General: comfortable and no acute distress HENMT: General nose exam: no epistaxis Eyes: Sclera: sclerae normal Neck: Neck: supple Resp: Effort & Inspection: normal respiratory effort Auscultation: diminished lung sounds Cardio: Rate: regular rate Rhythm: regular rhythm GI: Inspection: distended GI Palp: Yes Firmness to palpation present (GI) Other: Appears to have ascites and some edema of the abdominal wall Neuro: Cognition (Neuro): abnormal cognition (Appears confused) Speech: No normal speech (Garbled speech) Extrem
[2021-05-23 06:42] LABS: Glucose Point of Care 128 mg/dl (65-105)
[2021-05-23 07:45] LABS: Glucose Point of Care 84 mg/dl (65-105)
[2021-05-23] MEDS: DEXTROSE 5%/0.45% SOD CHL 1,000 ML 75 ML IV CONT ×2 (09:00→20:57)
[2021-05-23] MEDS: BUMETANIDE INJ 1 MG/4 ML VIAL IV PUSH (09:01)
[2021-05-23 09:39] LABS: Glucose Point of Care 62 mg/dl (65-105)
[2021-05-23 09:41] LABS: Glucose Point of Care 97 mg/dl (65-105)
--- NOTE | 2021-05-23 11:16 | PM.PNNEP ---
Progress Note: A&P Assessment and Plan (1) GLENN (acute kidney injury): Code(s): N17.9 - Acute kidney failure, unspecified Status: Acute Assessment and Plan: due to decompensated heart failure and need for aggressive diuresis cannot discount an element of kidney disease progression creatinine up but not surprising in the context of IV diuretics follow trend of labs/urine output with diuresis (2) Stage 3b chronic kidney disease: Code(s): N18.32 - Chronic kidney disease, stage 3b Status: Chronic Assessment and Plan: suspect baseline creatinine 1.9 - 2.3mg/dl due to biopsy proven diabetic nephropathy along with HTN/vascular disease suspect creatinine/kidney function will always fluctuate depending on his volume status and necessity of diuretics to achieve euvolemia (3) Hallucinations: Code(s): R44.3 - Hallucinations, unspecified Status: Acute Assessment and Plan: etiology? CT of head negative follow symptoms (4) Acute combined systolic and diastolic CHF, NYHA class 1: Code(s): I50.41 - Acute combined systolic (congestive) and diastolic (congestive) heart failure Status: Acute Assessment and Plan: well known issues with several recent hospitalizations for this problems some issues with decompensation related to compliance Cardiology following agree with IV diuresis holding DEMARCUS-I in the context of diuresis consider adding IV albumin prior to IV diuretics to see if the helps promote further diuresis but maintain stability in renal function... follow daily weights and I/Os (5) Anasarca: Code(s): R60.1 - Generalized edema Status: Acute Assessment and Plan: due to heart failure but his nephrotic range proteinuria/syndrome is also playing a role continue with diuresis may have to accept a higher creatinine to achieve euvolemia (6) Hypertension: Code(s): I10 - Essential (primary) hypertension Status: Acute Assessment and Plan: suboptimal control on admission but better at this time follow hemodynamics with diuresis (7) Diabetes: Code(s): E11.9 - Type 2 diabetes mellitus without complications Status: Chronic Assessment and Plan: follow accuchecks glycemic control Will continue to follow. Subjective Date/time seen: 05/23/21 11:16 Ongoing diuresis noted but BUN and creatinine continue to rise; issues with hypoglycemia earlier today (presumably due to poor oral intake) so started on D5 IVF to compensate; still seems drowsy/confused and on BiPAP at the time of my visit. Exam Narrative: General: ill appearing male in NAD; on BiPAP Heart: normal S1 and S2; no rub Lungs: decreased breath sounds at bases Abdomen: soft, nontender, nondistended, positive bowel sounds Extremities: no cyanosis or clubbing; edema noted (LEs, thighs, scrotum, sacrum, abdominal wall) Skin: warm and intact Objective Data Vital Signs Vital Signs: Vital Signs Temp Pulse Resp BP Pulse Ox 05/23/21 08:34 57 L 21 H 100 05/23/21 08:00 36.0 C L 59 L 29 H 108/56 L 100 05/23/21 05:54 62 05/23/21 04:26 65 20 100 05/23/21 04:25 94 28 H 05/23/21 04:00 36.3 C L 63 22 H 111/66 100 05/23/21 03:37 100 05/23/21 02:00 57 L 05/23/21 00:50 102 H 24 H 05/23/21 00:38 65 32 H 100 05/23/21 00:00 36.7 C 60 20 122/64 100 05/22/21 23:35 66 05/22/21 22:00 70 05/22/21 20:50 99 28 H 05/22/21 20:40 74 32 H 05/22/21 20:00 36.1 C L 75 20 134/70 91 05/22/21 18:00 70 05/22/21 17:11 92 05/22/21 17:08 92 05/22/21 16:00 36.4 C 66 24 H 142/69 H 100 05/22/21 15:45 69 26 H 05/22/21 15:39 73 37 H 05/22/21 15:24 75 37 H 100 05/22/21 14:00 77 05/22/21 12:00 79 Intake/Output Intake/Output: Intake & Output 05/20/21 05/21/21 05/22/21 05/23/21 23:59 23:59 23:5
--- NOTE | 2021-05-23 11:16 | P.PNNP_ITS ---
Progress Note: A&P Assessment and Plan (1) GLENN (acute kidney injury): Code(s): N17.9 - Acute kidney failure, unspecified Status: Acute Assessment and Plan: * due to decompensated heart failure and need for aggressive diuresis * cannot discount an element of kidney disease progression * creatinine up but not surprising in the context of IV diuretics * follow trend of labs/urine output with diuresis (2) Stage 3b chronic kidney disease: Code(s): N18.32 - Chronic kidney disease, stage 3b Status: Chronic Assessment and Plan: * suspect baseline creatinine 1.9 - 2.3mg/dl * due to biopsy proven diabetic nephropathy along with HTN/vascular disease * suspect creatinine/kidney function will always fluctuate depending on his volume status and necessity of diuretics to achieve euvolemia (3) Hallucinations: Code(s): R44.3 - Hallucinations, unspecified Status: Acute Assessment and Plan: * etiology? * CT of head negative * follow symptoms (4) Acute combined systolic and diastolic CHF, NYHA class 1: Code(s): I50.41 - Acute combined systolic (congestive) and diastolic (congestive) heart failure Status: Acute Assessment and Plan: * well known issues with several recent hospitalizations for this problems * some issues with decompensation related to compliance * Cardiology following * agree with IV diuresis * holding DEMARCUS-I in the context of diuresis * consider adding IV albumin prior to IV diuretics to see if the helps promote further diuresis but maintain stability in renal function... * follow daily weights and I/Os (5) Anasarca: Code(s): R60.1 - Generalized edema Status: Acute Assessment and Plan: * due to heart failure but his nephrotic range proteinuria/syndrome is also playing a role * continue with diuresis * may have to accept a higher creatinine to achieve euvolemia (6) Hypertension: Code(s): I10 - Essential (primary) hypertension Status: Acute Assessment and Plan: * suboptimal control on admission but better at this time * follow hemodynamics with diuresis (7) Diabetes: Code(s): E11.9 - Type 2 diabetes mellitus without complications Status: Chronic Assessment and Plan: * follow accuchecks * glycemic control Will continue to follow. Subjective Date/time seen: 05/23/21 11:16 Ongoing diuresis noted but BUN and creatinine continue to rise; issues with hypoglycemia earlier today (presumably due to poor oral intake) so started on D5 IVF to compensate; still seems drowsy/confused and on BiPAP at the time of my visit. Exam Narrative: General: ill appearing male in NAD; on BiPAP Heart: normal S1 and S2; no rub Lungs: decreased breath sounds at bases Abdomen: soft, nontender, nondistended, positive bowel sounds Extremities: no cyanosis or clubbing; edema noted (LEs, thighs, scrotum, sacrum, abdominal wall) Skin: warm and intact Objective Data Vital Signs Vital Signs: Vital Signs Temp Pulse Resp BP Pulse Ox 05/23/21 08:34 57 L 21 H 100 05/23/21 08:00 36.0 C L 59 L 29 H 108/56 L 100 05/23/21 05:54 62 05/23/21 04:26 65 20 100 05/23/21 04:25 94 28 H 05/23/21 04:00 36.3 C L 63 22 H 111/66 100 05/23/21 03:37 100 05/23/21 02:00 57 L 05/23/21 00:50 102 H 24 H
--- NOTE | 2021-05-23 13:16 | PM.IMPN ---
Progress Note: A&P Assessment and Plan (1) Combined congestive systolic and diastolic heart failure: Code(s): I50.40 - Unspecified combined systolic (congestive) and diastolic (congestive) heart failure Status: Acute Assessment and Plan: Admit to IMU Aggressive diuresis Daily intake and output Daily basic metabolic profile Recent echocardiogram done 05/23/21 13:16 05/21 Interval history: patient still hallucinating unable to provide any review of symptoms, there was a concern the patient was retaining urine Ramirez catheter was placed with assistance from urology recommended patient will benefit from from flowmax. upon arrival patient was quite short of breath with BNP of 35,000 and a history systolic dysfunction with ejection fraction of 45% patient is seen by Cardiology started the patient on Bumex 1 mg b.i.d. will continue to monitor I's and O's, patient with diabetic wound ulcers will have wound team evaluate the patient, patient continued to hallucinate will benefit from psychiatry evaluation medically stable, will continue to monitor will have PT OT evaluate the patient further recommendation to follow. 05/22 Interval history: patient continued hallucinate unable to provide any review of symptom, seen by Cardiology being diuresed with Bumex 1 mg b.i.d. IV, still has a quite anasarca, patient continue to hallucinating unable to provide any history, being given Zyprexa 5 mg IM PRN., will add Seroquel 50 mg t.i.d. to help reduce hallucination and agitation and monitor. 05/23 Interval history: Seroquel was added to help with the hallucination and agitatation today patient is more calm and not as agitated, will reduce Seroquel 50 mg t.i.d. to q.h.s., patient with anasarca seen by cardiology and being diuresed Bumex 1 mg b.i.d. IV there is slight increased BUN and creatinine, patient with diabetes hypoglycemia today most likely secondary poor p.o. intake will start the patient D5 half-normal saline at 75 cc an hour. will continue to monitor as patient has been diuresed, patient has hypoalbumin, may help with the addition of albumin seen by email production specialist and further recommendation to follow. (2) Infiltrate of lung present on chest x-ray: Code(s): R91.8 - Other nonspecific abnormal finding of lung field Status: Acute Assessment and Plan: Patient with no fever no leukocytosis no sputum production Blood cultures in progress No antibiotics at this time Patient with significant fluid retention (3) Acute respiratory failure with hypoxia: Code(s): J96.01 - Acute respiratory failure with hypoxia Status: Acute Assessment and Plan: Oxygen by nasal cannula as needed (4) Insulin dependent diabetes mellitus: Status: Chronic Assessment and Plan: Holding metformin Continue insulin Carb consistent diet (5) CAD (coronary artery disease): Code(s): I25.10 - Atherosclerotic heart disease of [place] coronary artery without angina pectoris Status: Acute Assessment and Plan: Continue home meds No chest pain Supportive care (6) Chronic kidney disease: Code(s): N18.9 - Chronic kidney disease, unspecified Status: Chronic Assessment and Plan: BUN and creatinine at patient's baseline (7) Below-knee amputation of right lower extremity: Code(s): S88.111A - Complete traumatic amputation at level between knee and ankle, right lower leg, initial encounter Status: Acute Assessment and Plan: For precautions (8) Diabetic ulcer of left foot: Code(s): E11.621 - Type 2 diabetes mellitus with foot ulcer; L97.529 - Non-pressure chronic ulcer of other part of left foot with unspecified severity Status: Acute Assessment and Plan: Wound care consult Local care Continue to monitor Subjective Date/time seen: 05/23/21 13:16 05/21 Interval history: patient still hallucinating unable to provide any review of symptoms, there w
[2021-05-23 13:28] LABS: Glucose Point of Care 85 mg/dl (65-105)
--- NOTE | 2021-05-23 14:33 | PCPTNOTE ---
Spoke with nursing-reports pt is currently restrained and resistive; has an NG tube in that is at risk. Try PT/OT eval tomorrow.
[2021-05-23] MEDS: GABAPENTIN 300 MG CAPSULE PO (16:08)
[2021-05-23] MEDS: amLODIPine BESYLATE 5 MG TABLET 10 MG PO (16:09)
[2021-05-23] MEDS: ATORVASTATIN 40 MG TABLET PO (16:09)
[2021-05-23 16:55] LABS: Glucose Point of Care 83 mg/dl (65-105)
[2021-05-23] MEDS: METOPROLOL TARTRATE 50 MG TAB PO (20:55)
[2021-05-23] MEDS: QUEtiapine FUMARATE 25 MG TABLET 50 MG PO (20:55)
[2021-05-23 21:06] LABS: Glucose Point of Care 78 mg/dl (65-105)
[2021-05-24] VITALS (26 sets, daily range): BP systolic 102–122; BP diastolic 52–88; PULSE 55–66; RESP 12–28; TEMP 35.7–36.7; O2SAT 94–100
[2021-05-24] MEDS: ALBUTEROL SULFATE NEB 2.5 MG/0.5 ML INH INHALATION ×6 (00:08→19:30)
[2021-05-24] MEDS: IPRATROPIUM BR 0.02% INH SOLN 0.5 MG/2.5 ML VIAL INHALATION ×6 (00:08→19:30)
[2021-05-24 01:17] LABS: Glucose Point of Care 115 mg/dl (65-105)
[2021-05-24 06:46] LABS: Hematocrit 29.8 % (42.0-52.0); Hemoglobin 8.6 g/dL (14.0-18.0); Mean Corpuscular HGB Conc 28.9 g/dl (32-36); Mean Corpuscular Hemoglobin 26.1 pg (26-34); Mean Corpuscular Volume 90.3 fl (80-100); Mean Platelet Volume 11.7 fl (7.4-10.4); Platelet Count Result 210 k/mm3 (150-375); Red Cell Distribution Width 17.4 % (11.5-14.5); White Blood Count 5.7 K/mm3 (4.5-10.0)
[2021-05-24 06:54] LABS: Albumin Level 2.3 g/dL (3.5-5.1); Anion Gap 3 mmol/L (8-16); Blood Urea Nitrogen 61 mg/dL (9-20); Calcium 7.7 mg/dL (8.4-10.2); Carbon Dioxide 22 mmol/L (22-30); Chloride 112 mmol/L (98-107); Estimated CRCL calculation 29 ml/min; Estimated Glomerular Filt Rate 21; Glucose 101 mg/dL (65-110); Potassium 4.6 mmol/L (3.4-5.0); Sodium 137 mmol/L (137-145)
[2021-05-24 08:45] LABS: Glucose Point of Care 87 mg/dl (65-105)
--- NOTE | 2021-05-24 09:19 | PCPTNOTE ---
Spoke with pt this am to attempt PT eval. Pt very lethargic and falling asleep mid sentence. States he will not try therapy at this time. Plan to try later.
[2021-05-24] MEDS: METOPROLOL TARTRATE 50 MG TAB PO ×2 (09:32→20:31)
[2021-05-24] MEDS: ATORVASTATIN 40 MG TABLET PO (09:32)
[2021-05-24] MEDS: GABAPENTIN 300 MG CAPSULE PO ×2 (09:33→15:12)
[2021-05-24] MEDS: amLODIPine BESYLATE 5 MG TABLET 10 MG PO (09:34)
[2021-05-24] MEDS: DEXTROSE 5%/0.45% SOD CHL 1,000 ML 75 ML IV CONT (09:40)
--- NOTE | 2021-05-24 10:21 | PCOTNOTE ---
Spoke with pt this am to attempt OT eval. Pt very lethargic and falling asleep mid sentence. States he will not try therapy at this time. Plan to try later as able.
[2021-05-24] MEDS: BUMETANIDE INJ 1 MG/4 ML VIAL IV PUSH (11:46)
--- NOTE | 2021-05-24 11:48 | PM.PNNEP ---
Progress Note: A&P Assessment and Plan (1) GLENN (acute kidney injury): Code(s): N17.9 - Acute kidney failure, unspecified Status: Acute Assessment and Plan: due to decompensated heart failure and need for aggressive diuresis cannot discount an element of kidney disease progression creatinine up but not surprising in the context of IV diuretics follow trend of labs/urine output with diuresis (2) Stage 3b chronic kidney disease: Code(s): N18.32 - Chronic kidney disease, stage 3b Status: Chronic Assessment and Plan: suspect baseline creatinine 1.9 - 2.3mg/dl due to biopsy proven diabetic nephropathy along with HTN/vascular disease suspect creatinine/kidney function will always fluctuate depending on his volume status and necessity of diuretics to achieve euvolemia (3) Hallucinations: Code(s): R44.3 - Hallucinations, unspecified Status: Acute Assessment and Plan: etiology? CT of head negative follow symptoms (4) Acute combined systolic and diastolic CHF, NYHA class 1: Code(s): I50.41 - Acute combined systolic (congestive) and diastolic (congestive) heart failure Status: Acute Assessment and Plan: well known issues with several recent hospitalizations for this problems some issues with decompensation related to compliance Cardiology following agree with IV diuresis but not responding holding DEMARCUS-I in the context of diuresis adding IV albumin prior to IV diuretics to see if the helps promote further diuresis but maintain stability in renal function... is IV dobutamine an option?? -- will defer to Cardiology follow daily weights and I/Os (5) Anasarca: Code(s): R60.1 - Generalized edema Status: Acute Assessment and Plan: due to heart failure but his nephrotic range proteinuria/syndrome is also playing a role continue with diuresis may have to accept a higher creatinine to achieve euvolemia (6) Hypertension: Code(s): I10 - Essential (primary) hypertension Status: Acute Assessment and Plan: suboptimal control on admission but better at this time follow hemodynamics with diuresis (7) Diabetes: Code(s): E11.9 - Type 2 diabetes mellitus without complications Status: Chronic Assessment and Plan: follow accuchecks glycemic control Will continue to follow. Subjective Date/time seen: 05/24/21 11:48 Mentation continues to fluctuate although he seems a bit more awake/alrt today; diuresis has been suboptimal in the last 24 - 48 hours; IV albumin added today in an effort to promote further diuresis; NG tube in place for enteral feeding; no apparent distress noted at the time of my visit. Exam Narrative: General: ill appearing male in NAD; on BiPAP Heart: normal S1 and S2; no rub Lungs: decreased breath sounds at bases Abdomen: soft, nontender, nondistended, positive bowel sounds Extremities: no cyanosis or clubbing; edema noted (LEs, thighs, scrotum, sacrum, abdominal wall) Skin: no rash or nodules Objective Data Vital Signs Vital Signs: Vital Signs Temp Pulse Resp BP Pulse Ox 05/24/21 10:00 62 05/24/21 09:32 59 L 05/24/21 09:15 36.0 C L 59 L 22 H 112/68 94 05/24/21 08:24 97 05/24/21 08:18 55 L 20 05/24/21 08:00 57 L 22 H 94 05/24/21 06:00 60 05/24/21 04:51 57 L 24 H 05/24/21 04:35 56 L 24 H 05/24/21 04:00 36.3 C L 56 L 12 102/60 97 05/24/21 02:00 55 L 05/24/21 00:15 55 L 24 H 05/24/21 00:00 36.4 C 55 L 20 106/62 100 05/23/21 22:00 55 L 05/23/21 20:55 67 05/23/21 20:00 36.3 C L 68 20 133/60 100 05/23/21 19:50 69 22 H 98 05/23/21 18:00 76 Intake/Output Intake/Output: Intake & Output 05/21/21 05/22/21 05/23/21 05/24/21 23:59 23:59 23:59 23:59 Intake Total 360 1300 1000 1545 Output Total 1700 2450 750 450 Balance -1340 -1150 250 1
--- NOTE | 2021-05-24 11:48 | P.PNNP_ITS ---
Progress Note: A&P Assessment and Plan (1) GLENN (acute kidney injury): Code(s): N17.9 - Acute kidney failure, unspecified Status: Acute Assessment and Plan: * due to decompensated heart failure and need for aggressive diuresis * cannot discount an element of kidney disease progression * creatinine up but not surprising in the context of IV diuretics * follow trend of labs/urine output with diuresis (2) Stage 3b chronic kidney disease: Code(s): N18.32 - Chronic kidney disease, stage 3b Status: Chronic Assessment and Plan: * suspect baseline creatinine 1.9 - 2.3mg/dl * due to biopsy proven diabetic nephropathy along with HTN/vascular disease * suspect creatinine/kidney function will always fluctuate depending on his volume status and necessity of diuretics to achieve euvolemia (3) Hallucinations: Code(s): R44.3 - Hallucinations, unspecified Status: Acute Assessment and Plan: * etiology? * CT of head negative * follow symptoms (4) Acute combined systolic and diastolic CHF, NYHA class 1: Code(s): I50.41 - Acute combined systolic (congestive) and diastolic (congestive) heart failure Status: Acute Assessment and Plan: * well known issues with several recent hospitalizations for this problems * some issues with decompensation related to compliance * Cardiology following * agree with IV diuresis but not responding * holding DEMARCUS-I in the context of diuresis * adding IV albumin prior to IV diuretics to see if the helps promote further diuresis but maintain stability in renal function... * is IV dobutamine an option?? -- will defer to Cardiology * follow daily weights and I/Os (5) Anasarca: Code(s): R60.1 - Generalized edema Status: Acute Assessment and Plan: * due to heart failure but his nephrotic range proteinuria/syndrome is also playing a role * continue with diuresis * may have to accept a higher creatinine to achieve euvolemia (6) Hypertension: Code(s): I10 - Essential (primary) hypertension Status: Acute Assessment and Plan: * suboptimal control on admission but better at this time * follow hemodynamics with diuresis (7) Diabetes: Code(s): E11.9 - Type 2 diabetes mellitus without complications Status: Chronic Assessment and Plan: * follow accuchecks * glycemic control Will continue to follow. Subjective Date/time seen: 05/24/21 11:48 Mentation continues to fluctuate although he seems a bit more awake/alrt today; diuresis has been suboptimal in the last 24 - 48 hours; IV albumin added today in an effort to promote further diuresis; NG tube in place for enteral feeding; no apparent distress noted at the time of my visit. Exam Narrative: General: ill appearing male in NAD; on BiPAP Heart: normal S1 and S2; no rub Lungs: decreased breath sounds at bases Abdomen: soft, nontender, nondistended, positive bowel sounds Extremities: no cyanosis or clubbing; edema noted (LEs, thighs, scrotum, sacrum, abdominal wall) Skin: no rash or nodules Objective Data Vital Signs Vital Signs: Vital Signs Temp Pulse Resp BP Pulse Ox 05/24/21 10:00 62 05/24/21 09:32 59 L 05/24/21 09:15 36.0 C L 59 L 22 H 112/68 94 05/24/21 08:24 97 05/24/21 08:18 55 L 20 05/24/21 08:00 57 L 22 H 94 05/24/21 0
[2021-05-24 13:06] LABS: Glucose Point of Care 101 mg/dl (65-105)
[2021-05-24] MEDS: ALBUMIN HUMAN 25% 25 GM/100 ML 100 ML IVPB (15:12)
--- NOTE | 2021-05-24 15:22 | PM.IMPN ---
Progress Note: A&P Assessment and Plan (1) Combined congestive systolic and diastolic heart failure: Code(s): I50.40 - Unspecified combined systolic (congestive) and diastolic (congestive) heart failure Status: Acute Assessment and Plan: Admit to IMU Aggressive diuresis Daily intake and output Daily basic metabolic profile Recent echocardiogram done 05/24/21 15:22 05/21 Interval history: patient still hallucinating unable to provide any review of symptoms, there was a concern the patient was retaining urine Ramirez catheter was placed with assistance from urology recommended patient will benefit from from flowmax. upon arrival patient was quite short of breath with BNP of 35,000 and a history systolic dysfunction with ejection fraction of 45% patient is seen by Cardiology started the patient on Bumex 1 mg b.i.d. will continue to monitor I's and O's, patient with diabetic wound ulcers will have wound team evaluate the patient, patient continued to hallucinate will benefit from psychiatry evaluation medically stable, will continue to monitor will have PT OT evaluate the patient further recommendation to follow. 05/22 Interval history: patient continued hallucinate unable to provide any review of symptom, seen by Cardiology being diuresed with Bumex 1 mg b.i.d. IV, still has a quite anasarca, patient continue to hallucinating unable to provide any history, being given Zyprexa 5 mg IM PRN., will add Seroquel 50 mg t.i.d. to help reduce hallucination and agitation and monitor. 05/23 Interval history: Seroquel was added to help with the hallucination and agitatation today patient is more calm and not as agitated, will reduce Seroquel 50 mg t.i.d. to q.h.s., patient with anasarca seen by cardiology and being diuresed Bumex 1 mg b.i.d. IV there is slight increased BUN and creatinine, patient with diabetes hypoglycemia today most likely secondary poor p.o. intake will start the patient D5 half-normal saline at 75 cc an hour. will continue to monitor as patient has been diuresed, patient has hypoalbumin, may help with the addition of albumin seen by bill clerk and further recommendation to follow. 05/24 Interval history: on 05/23 NG tube was placed and NG tube feeding with Glucerna has started, the patient is little more awake slightly more responsive, will continue present management with Seroquel at the bedtime, patient with anasarca seen by cardiology being diuresed with Bumex 1 mg b.i.d. will add albumin to help with oncotic pressure, patient is seen by Nephrology and further recommendation to follow, patient with diabetes will continue to monitor the sliding scale, patient will continue to work with physical therapy and speech therapy, and further recommendation to follow. (2) Infiltrate of lung present on chest x-ray: Code(s): R91.8 - Other nonspecific abnormal finding of lung field Status: Acute Assessment and Plan: Patient with no fever no leukocytosis no sputum production Blood cultures in progress No antibiotics at this time Patient with significant fluid retention (3) Acute respiratory failure with hypoxia: Code(s): J96.01 - Acute respiratory failure with hypoxia Status: Acute Assessment and Plan: Oxygen by nasal cannula as needed (4) Insulin dependent diabetes mellitus: Status: Chronic Assessment and Plan: Holding metformin Continue insulin Carb consistent diet (5) CAD (coronary artery disease): Code(s): I25.10 - Atherosclerotic heart disease of [place] coronary artery without angina pectoris Status: Acute Assessment and Plan: Continue home meds No chest pain Supportive care (6) Chronic kidney disease: Code(s): N18.9 - Chronic kidney disease, unspecified Status: Chronic Assessment and Plan: BUN and creatinine at patient's baseline (7) Below-knee amputation of right lower extremity: Code(s): S88.111A - Complet
--- NOTE | 2021-05-24 16:28 | PM.PNCARD ---
Progress Note: A&P Assessment and Plan (1) Acute combined systolic and diastolic CHF, NYHA class 1: Code(s): I50.41 - Acute combined systolic (congestive) and diastolic (congestive) heart failure Status: Acute Assessment and Plan: Patient presents with acute on chronic systolic and diastolic heart failure, anasarca, pleural effusions. More alert today and off BiPAP but not diuresing any further. Currently administering Bumex 1 mg IV push daily. Still has significant anasarca. Getting a trial of IV albumin with Bumex today. Follow renal function closely with a daily BMP - BUN/Cr continue to rise. Can try some IV dobutamine tomorrow if no improvement to see if better renal perfusion would help. EF is 40-45%, not bad, but perhaps decreased renal perfusion is contributing. Nephrotic range proteinuria and hypoalbuminemia are certainly contributing factors to swelling as well. (2) Nonsustained ventricular tachycardia: Code(s): I47.2 - Ventricular tachycardia Status: Acute Assessment and Plan: No nonsustained V-tach recently. Continue beta-malik Follow electrolytes (3) Ischemic cardiomyopathy: Code(s): I25.5 - Ischemic cardiomyopathy Status: Acute Assessment and Plan: EF 40-45%. Lexiscan suggests an old large infarct. No angina. Continue therapy with lisinopril, metoprolol The aspirin has likely been held due to anemia which has improved. Hgb did drop from 11.3 on admission to 9.1 but is now stable. Daily H&H Consider adding ASA prior to d/c if h/h are stable. On statin. (4) Chronic kidney disease, stage 3b: Code(s): N18.32 - Chronic kidney disease, stage 3b Status: Acute Assessment and Plan: Worsening. Has nephrotic range proteinuria which is contributing to the patient's anasarca. (5) Hypertension: Code(s): I10 - Essential (primary) hypertension Status: Acute Assessment and Plan: Improved, on usual home meds. (6) Encephalopathy: Code(s): G93.40 - Encephalopathy, unspecified Status: Acute Assessment and Plan: Has been hallucinating and is confused. Oxygenating well. Subjective Date/time seen: 05/24/21 16:28 Interval history: Follow-up for acute on chronic CHF, HTN, nonsustained ventricular tachycardia, presumed CAD. Encephalopathic. 05/21/2021: Started on Bumex 1 mg IV push b.i.d. for anasarca 05/22/2021: He is confused today and unable to answer my questions. Tachypneic but otherwise appears comfortable. Receiving nebulizer treatment. Continue IV Bumex 05/23/2021: Drowsy and confused, remains on BiPAP with good oxygenation.. I's and O's 1300/2450. BUN and creatinine have increased. Telemetry shows NSR with PVCs. Reduce Bumex to 1 mg IV push daily due to worsening renal function. Date of service 05/24/2021: More alert today, on nasal cannula at 2 L O2 in off his BiPAP. Complaining of shoulder stiffness and bilateral for forearm pain. NG tube placed and now getting NG feedings. Has a Ramirez in and I's and O's yesterday were 1000/750. Looks like I's and O's will be quite positive today as well. Getting some IV albumin x1 to see if that helps with urine output. Review of Systems Constitutional: Constitutional: Reports fatigue and Reports weakness Eyes: Eyes: Reports no additional eye complaints ENT: Denies epistaxis Cardiovascular: Cardiovascular: Denies chest pain, Reports pedal edema, Reports leg edema, Reports dyspnea and Reports dyspnea on exertion Respiratory: Respiratory: Reports no additional respiratory complaints, Reports chest congestion, Reports cough, Reports dyspnea and Reports dyspnea on exertion Gastrointestinal: Gastrointestinal: Denies abdominal pain and Reports bloating Musculoskeletal: Musculoskeletal: Reports myalgias and Reports stiffness Int
[2021-05-24 17:18] LABS: Glucose Point of Care 100 mg/dl (65-105)
[2021-05-24 20:29] LABS: Glucose Point of Care 92 mg/dl (65-105)
[2021-05-24] MEDS: QUEtiapine FUMARATE 25 MG TABLET 50 MG PO (20:31)
[2021-05-25] VITALS (30 sets, daily range): BP systolic 127–154; BP diastolic 65–99; PULSE 58–95; RESP 20–28; TEMP 36.3–37; O2SAT 88–100; BMI 10.0; BMI 38.4
[2021-05-25] MEDS: IPRATROPIUM BR 0.02% INH SOLN 0.5 MG/2.5 ML VIAL INHALATION ×6 (00:45→20:12)
[2021-05-25] MEDS: ALBUTEROL SULFATE NEB 2.5 MG/0.5 ML INH INHALATION ×6 (00:46→20:12)
[2021-05-25 05:04] LABS: Hematocrit 31.2 % (42.0-52.0); Hemoglobin 9.3 g/dL (14.0-18.0); Mean Corpuscular HGB Conc 29.8 g/dl (32-36); Mean Corpuscular Hemoglobin 26.1 pg (26-34); Mean Corpuscular Volume 87.4 fl (80-100); Mean Platelet Volume 12.1 fl (7.4-10.4); Platelet Count Result 222 k/mm3 (150-375); Red Blood Count 3.57 M/mm3 (4.6-6.20); Red Cell Distribution Width 17.2 % (11.5-14.5); White Blood Count 7.8 K/mm3 (4.5-10.0)
[2021-05-25 05:16] LABS: Albumin Level 2.8 g/dL (3.5-5.1); Anion Gap 4 mmol/L (8-16); Blood Urea Nitrogen 66 mg/dL (9-20); Calcium 7.9 mg/dL (8.4-10.2); Carbon Dioxide 23 mmol/L (22-30); Chloride 111 mmol/L (98-107); Estimated CRCL calculation 28 ml/min; Estimated Glomerular Filt Rate 20; Glucose 98 mg/dL (65-110); Potassium 5.3 mmol/L (3.4-5.0); Sodium 138 mmol/L (137-145)
--- NOTE | 2021-05-25 06:52 | P.PNNP_ITS ---
Progress Note: A&P Assessment and Plan (1) GLENN (acute kidney injury): Code(s): N17.9 - Acute kidney failure, unspecified Status: Acute Assessment and Plan: * acute kidney injury * etiology is probably multifactorial, including diastolic dysfunction, and progression of disease * the patient may have severe pre renal component as well because of his nephrotic syndrome and low albumin. * Still not making very much urine in spite of his severe swelling. * He is getting albumin once a day. Will increase this to q.6 hours and gerardo with diuretics. (2) Stage 3b chronic kidney disease: Code(s): N18.32 - Chronic kidney disease, stage 3b Status: Chronic Assessment and Plan: * suspect baseline creatinine 1.9 - 2.3mg/dl * due to biopsy proven diabetic nephropathy along with HTN/vascular disease * suspect creatinine/kidney function will always fluctuate depending on his volume status and necessity of diuretics to achieve euvolemia (3) Hallucinations: Code(s): R44.3 - Hallucinations, unspecified Status: Acute Assessment and Plan: * etiology? * CT of head negative * follow symptoms * This seems to have improved (4) Acute combined systolic and diastolic CHF, NYHA class 1: Code(s): I50.41 - Acute combined systolic (congestive) and diastolic (congestive) heart failure Status: Acute Assessment and Plan: * well known issues with several recent hospitalizations for this problems * some issues with decompensation related to compliance * Cardiology following * agree with IV diuresis but not responding * holding DEMARCUS-I in the context of diuresis * will try q.6 hour albumin today. (5) Anasarca: Code(s): R60.1 - Generalized edema Status: Acute Assessment and Plan: * due to heart failure but his nephrotic range proteinuria/syndrome is also playing a role , as he is spilling over 14 g of protein per day. * continue with diuresis * may have to accept a higher creatinine to achieve euvolemia (6) Hypertension: Code(s): I10 - Essential (primary) hypertension Status: Acute Assessment and Plan: * suboptimal control on admission but better at this time * follow hemodynamics with diuresis (7) Diabetes: Code(s): E11.9 - Type 2 diabetes mellitus without complications Status: Chronic Assessment and Plan: * on Accu-Cheks and sliding-scale insulin Will continue to follow. Subjective Date/time seen: 05/25/21 06:52 Interval history: Limited Bengali. The patient looks comfortable but weak. NG tube in getting tube feedings. He denies pain or shortness of breath. Exam Narrative: General: ill appearing male in NAD; on BiPAP Heart: normal S1 and S2; no rub or gallop Lungs: decreased breath sounds at bases Abdomen: soft, nontender, nondistended, positive bowel sounds Extremities: no cyanosis or clubbing; 2+ edema noted (LEs, thighs, scrotum, sacrum, abdominal wall) Skin: no acute rash Objective Data Vital Signs Vital Signs: Vital Signs - 24 hr 05/24/21 08:00 05/24/21 08:18 05/24/21 08:24 Temperature Pulse Rate 57 L 55 L Respiratory Rate 22 H 20 Blood Pressure Pulse Oximetry 94 97 05/24/21 09:15 05/24/21 09:32 05/24/21 10:00 Temperature 36.0 C L Pulse Rate 59 L 59 L 62 Respirat
--- NOTE | 2021-05-25 06:52 | PM.PNNEP ---
Progress Note: A&P Assessment and Plan (1) GLENN (acute kidney injury): Code(s): N17.9 - Acute kidney failure, unspecified Status: Acute Assessment and Plan: acute kidney injury etiology is probably multifactorial, including diastolic dysfunction, and progression of disease the patient may have severe pre renal component as well because of his nephrotic syndrome and low albumin. Still not making very much urine in spite of his severe swelling. He is getting albumin once a day. Will increase this to q.6 hours and gerardo with diuretics. (2) Stage 3b chronic kidney disease: Code(s): N18.32 - Chronic kidney disease, stage 3b Status: Chronic Assessment and Plan: suspect baseline creatinine 1.9 - 2.3mg/dl due to biopsy proven diabetic nephropathy along with HTN/vascular disease suspect creatinine/kidney function will always fluctuate depending on his volume status and necessity of diuretics to achieve euvolemia (3) Hallucinations: Code(s): R44.3 - Hallucinations, unspecified Status: Acute Assessment and Plan: etiology? CT of head negative follow symptoms This seems to have improved (4) Acute combined systolic and diastolic CHF, NYHA class 1: Code(s): I50.41 - Acute combined systolic (congestive) and diastolic (congestive) heart failure Status: Acute Assessment and Plan: well known issues with several recent hospitalizations for this problems some issues with decompensation related to compliance Cardiology following agree with IV diuresis but not responding holding DEMARCUS-I in the context of diuresis will try q.6 hour albumin today. (5) Anasarca: Code(s): R60.1 - Generalized edema Status: Acute Assessment and Plan: due to heart failure but his nephrotic range proteinuria/syndrome is also playing a role , as he is spilling over 14 g of protein per day. continue with diuresis may have to accept a higher creatinine to achieve euvolemia (6) Hypertension: Code(s): I10 - Essential (primary) hypertension Status: Acute Assessment and Plan: suboptimal control on admission but better at this time follow hemodynamics with diuresis (7) Diabetes: Code(s): E11.9 - Type 2 diabetes mellitus without complications Status: Chronic Assessment and Plan: on Accu-Cheks and sliding-scale insulin Will continue to follow. Subjective Date/time seen: 05/25/21 06:52 Interval history: Limited [place]. The patient looks comfortable but weak. NG tube in getting tube feedings. He denies pain or shortness of breath. Exam Narrative: General: ill appearing male in NAD; on BiPAP Heart: normal S1 and S2; no rub or gallop Lungs: decreased breath sounds at bases Abdomen: soft, nontender, nondistended, positive bowel sounds Extremities: no cyanosis or clubbing; 2+ edema noted (LEs, thighs, scrotum, sacrum, abdominal wall) Skin: no acute rash Objective Data Vital Signs Vital Signs: Vital Signs - 24 hr 05/24/21 08:00 05/24/21 08:18 05/24/21 08:24 Temperature Pulse Rate 57 L 55 L Respiratory Rate 22 H 20 Blood Pressure Pulse Oximetry 94 97 05/24/21 09:15 05/24/21 09:32 05/24/21 10:00 Temperature 36.0 C L Pulse Rate 59 L 59 L 62 Respiratory Rate 22 H Blood Pressure 112/68 Pulse Oximetry 94 05/24/21 12:00 05/24/21 13:12 05/24/21 14:00 Temperature 35.7 C L Pulse Rate 55 L 55 L 55 L Respiratory Rate 19 19 Blood Pressure 106/88 Pulse Oximetry 100 100 05/24/21 14:20 05/24/21 16:00 05/24/21 17:25 Temperature 35.8 C L Pulse Rate 58 L 56 L 58 L Respiratory Rate 20 20 24 H Blood Pressure 122/66 Pulse Oximetry 100 99 05/24/21 18:00 05/24/21 19:30 05/24/21 19:31 Temperature 36.0 C L Pulse Rate 60 66 59 L Respiratory Rate 28 H 20 Blood Pressure 116/52 L Pulse Oximetry 98 98 05/24/21 19:40 05/24/21 20:
[2021-05-25 09:16] LABS: Glucose Point of Care 95 mg/dl (65-105)
[2021-05-25] MEDS: GABAPENTIN 300 MG CAPSULE PO ×3 (09:47→17:44)
[2021-05-25] MEDS: ATORVASTATIN 40 MG TABLET PO (09:47)
[2021-05-25] MEDS: BUMETANIDE INJ 2.5 MG/10 ML VIAL 2 MG IV PUSH ×2 (09:47→17:44)
[2021-05-25] MEDS: METOPROLOL TARTRATE 50 MG TAB PO ×2 (09:47→20:10)
--- NOTE | 2021-05-25 11:09 | PM.PNCARD ---
Progress Note: A&P Assessment and Plan (1) Acute combined systolic and diastolic CHF, NYHA class 1: Code(s): I50.41 - Acute combined systolic (congestive) and diastolic (congestive) heart failure Status: Acute Assessment and Plan: Patient presents with acute on chronic systolic and diastolic heart failure, anasarca, pleural effusions. More alert today and off BiPAP but not diuresing any further. Currently administering Bumex 1 mg IV push daily. Still has significant anasarca. Follow renal function closely with a daily BMP - BUN/Cr continue to rise. Nephrotic range proteinuria and hypoalbuminemia are certainly contributing factors to swelling as well. Will start dobutamine 2.5 mcg/kg/minute. Hopefully this will aid in diuresis and preserve renal function. Continue telemetry and monitor closely for worsening arrhythmia after starting inotrope (2) Nonsustained ventricular tachycardia: Code(s): I47.2 - Ventricular tachycardia Status: Acute Assessment and Plan: No nonsustained V-tach recently. Continue beta-malik Follow electrolytes (3) Ischemic cardiomyopathy: Code(s): I25.5 - Ischemic cardiomyopathy Status: Acute Assessment and Plan: EF 40-45%. Lexiscan suggests an old large infarct. No angina. Continue therapy with lisinopril, metoprolol The aspirin has likely been held due to anemia which has improved. Hgb did drop from 11.3 on admission to 9.1 but is now stable. Daily H&H Consider adding ASA prior to d/c if h/h are stable. On statin. (4) Chronic kidney disease, stage 3b: Code(s): N18.32 - Chronic kidney disease, stage 3b Status: Acute Assessment and Plan: Worsening. Has nephrotic range proteinuria which is contributing to the patient's anasarca. (5) Hypertension: Code(s): I10 - Essential (primary) hypertension Status: Acute Assessment and Plan: Improved, on usual home meds. (6) Encephalopathy: Code(s): G93.40 - Encephalopathy, unspecified Status: Acute Assessment and Plan: Has been hallucinating and is confused. Oxygenating well. Subjective Date/time seen: 05/25/21 11:09 Interval history: Follow-up for acute on chronic CHF, HTN, nonsustained ventricular tachycardia, presumed CAD. Encephalopathic. 05/21/2021: Started on Bumex 1 mg IV push b.i.d. for anasarca 05/22/2021: He is confused today and unable to answer my questions. Tachypneic but otherwise appears comfortable. Receiving nebulizer treatment. Continue IV Bumex 05/23/2021: Drowsy and confused, remains on BiPAP with good oxygenation.. I's and O's 1300/2450. BUN and creatinine have increased. Telemetry shows NSR with PVCs. Reduce Bumex to 1 mg IV push daily due to worsening renal function. Date of service 05/24/2021: More alert today, on nasal cannula at 2 L O2 in off his BiPAP. Complaining of shoulder stiffness and bilateral for forearm pain. NG tube placed and now getting NG feedings. Has a Ramirez in and I's and O's yesterday were 1000/750. Looks like I's and O's will be quite positive today as well. Getting some IV albumin x1 to see if that helps with urine output. Date of service 05/25/2021: More awake alert today but still not making much urine. No chest pain. Diffuse edema. Positive short of breath Review of Systems Review of Systems: ROS unobtainable: Yes unobtainable due to mental status Constitutional: Constitutional: Reports fatigue and Reports weakness Eyes: Eyes: Reports no additional eye complaints ENT: Denies epistaxis Cardiovascular: Cardiovascular: Denies chest pain, Reports pedal edema, Reports leg edema, Reports dyspnea and Reports dyspnea on exertion Respiratory: Respiratory: Reports no additional respiratory complaints, Reports chest congestion, Reports cough, Reports dyspnea a
[2021-05-25] MEDS: ALBUMIN HUMAN 25% 25 GM/100 ML 100 ML IVPB ×3 (12:14→23:26)
[2021-05-25] MEDS: DOBUTamine 250 MG/D5W 250 ML 250 MG/250 ML BAG 15.72 MG IV CONT (12:17)
--- NOTE | 2021-05-25 12:43 | PCPTNOTE ---
On 05/25/21, the student, Walt Gonsales, provided care and completed [facility] documentation on this patient. I have reviewed the student's documentation and agree with the findings.
[2021-05-25 12:56] LABS: Glucose Point of Care 124 mg/dl (65-105)
--- NOTE | 2021-05-25 14:54 | PM.IMPN ---
Progress Note: A&P Assessment and Plan (1) Combined congestive systolic and diastolic heart failure: Code(s): I50.40 - Unspecified combined systolic (congestive) and diastolic (congestive) heart failure Status: Acute Assessment and Plan: Admit to IMU Aggressive diuresis Daily intake and output Daily basic metabolic profile Recent echocardiogram done 05/25/21 14:54 05/21 Interval history: patient still hallucinating unable to provide any review of symptoms, there was a concern the patient was retaining urine Ramirez catheter was placed with assistance from urology recommended patient will benefit from from flowmax. upon arrival patient was quite short of breath with BNP of 35,000 and a history systolic dysfunction with ejection fraction of 45% patient is seen by Cardiology started the patient on Bumex 1 mg b.i.d. will continue to monitor I's and O's, patient with diabetic wound ulcers will have wound team evaluate the patient, patient continued to hallucinate will benefit from psychiatry evaluation medically stable, will continue to monitor will have PT OT evaluate the patient further recommendation to follow. 05/22 Interval history: patient continued hallucinate unable to provide any review of symptom, seen by Cardiology being diuresed with Bumex 1 mg b.i.d. IV, still has a quite anasarca, patient continue to hallucinating unable to provide any history, being given Zyprexa 5 mg IM PRN., will add Seroquel 50 mg t.i.d. to help reduce hallucination and agitation and monitor. 05/23 Interval history: Seroquel was added to help with the hallucination and agitatation today patient is more calm and not as agitated, will reduce Seroquel 50 mg t.i.d. to q.h.s., patient with anasarca seen by cardiology and being diuresed Bumex 1 mg b.i.d. IV there is slight increased BUN and creatinine, patient with diabetes hypoglycemia today most likely secondary poor p.o. intake will start the patient D5 half-normal saline at 75 cc an hour. will continue to monitor as patient has been diuresed, patient has hypoalbumin, may help with the addition of albumin seen by training officer and further recommendation to follow. 05/24 Interval history: on 05/23 NG tube was placed and NG tube feeding with Glucerna has started, the patient is little more awake slightly more responsive, will continue present management with Seroquel at the bedtime, patient with anasarca seen by cardiology being diuresed with Bumex 1 mg b.i.d. will add albumin to help with oncotic pressure, patient is seen by Nephrology and further recommendation to follow, patient with diabetes will continue to monitor the sliding scale, patient will continue to work with physical therapy and speech therapy, and further recommendation to follow. 05/25 Interval history: patient remains clinically stable, more awake, requesting wants to eat, will start the patient on clear liquid, patient will need health information assistant with feeding, patient will benefit going to retirement patient will require more assistance for ADLs, patient with anasarca with hypoalbuminia seen by cardiology added low-dose dobutamine and Nephrology started the patient albumin this will help diurese the patient, will continue PT OT and further recommendation to follow. (2) Infiltrate of lung present on chest x-ray: Code(s): R91.8 - Other nonspecific abnormal finding of lung field Status: Acute Assessment and Plan: Patient with no fever no leukocytosis no sputum production Blood cultures in progress No antibiotics at this time Patient with significant fluid retention (3) Acute respiratory failure with hypoxia: Code(s): J96.01 - Acute respiratory failure with hypoxia Status: Acute Assessment and Plan: Oxygen by nasal cannula as needed (4) Insulin dependent diabetes mellitus: Status: Chronic Assessment and Plan: Holding metformin Continue insulin Carb consistent diet (5) CAD (coronary ramu
[2021-05-25 17:00] LABS: Glucose Point of Care 102 mg/dl (65-105)
[2021-05-25] MEDS: QUEtiapine FUMARATE 25 MG TABLET 50 MG PO (20:11)
[2021-05-25 20:16] LABS: Glucose Point of Care 117 mg/dl (65-105)
[2021-05-26] VITALS (28 sets, daily range): BP systolic 144–178; BP diastolic 65–81; PULSE 76–91; RESP 18–32; TEMP 36.6–36.9; O2SAT 89–100
[2021-05-26] MEDS: ALBUTEROL SULFATE NEB 2.5 MG/0.5 ML INH INHALATION ×6 (00:24→21:04)
[2021-05-26] MEDS: IPRATROPIUM BR 0.02% INH SOLN 0.5 MG/2.5 ML VIAL INHALATION ×5 (00:24→21:04)
[2021-05-26] MEDS: DOBUTamine 250 MG/D5W 250 ML 250 MG/250 ML BAG 15.72 MG IV CONT ×2 (03:32→19:44)
[2021-05-26 05:11] LABS: Hematocrit 29.7 % (42.0-52.0); Hemoglobin 8.7 g/dL (14.0-18.0); Mean Corpuscular HGB Conc 29.3 g/dl (32-36); Mean Corpuscular Hemoglobin 26.3 pg (26-34); Mean Corpuscular Volume 89.7 fl (80-100); Mean Platelet Volume 12.5 fl (7.4-10.4); Platelet Count Result 188 k/mm3 (150-375); Red Blood Count 3.31 M/mm3 (4.6-6.20); Red Cell Distribution Width 16.8 % (11.5-14.5); White Blood Count 10.8 K/mm3 (4.5-10.0)
[2021-05-26] MEDS: ALBUMIN HUMAN 25% 25 GM/100 ML 100 ML IVPB ×4 (05:23→23:56)
[2021-05-26 05:30] LABS: Albumin Level 3.3 g/dL (3.5-5.1); Anion Gap 7 mmol/L (8-16); Blood Urea Nitrogen 67 mg/dL (9-20); Calcium 8.2 mg/dL (8.4-10.2); Carbon Dioxide 23 mmol/L (22-30); Chloride 110 mmol/L (98-107); Estimated CRCL calculation 30 ml/min; Estimated Glomerular Filt Rate 22; Glucose 80 mg/dL (65-110); Phosphorus 4.9 mg/dL (2.5-4.5); Potassium 5.2 mmol/L (3.4-5.0); Sodium 140 mmol/L (137-145)
[2021-05-26 09:07] LABS: Glucose Point of Care 73 mg/dl (65-105)
--- NOTE | 2021-05-26 09:13 | P.PNNP_ITS ---
Progress Note: A&P Assessment and Plan (1) GLENN (acute kidney injury): Code(s): N17.9 - Acute kidney failure, unspecified Status: Acute Assessment and Plan: * acute kidney injury * etiology is probably multifactorial, including diastolic dysfunction, and progression of disease * the patient may have severe pre renal component as well because of his nephrotic syndrome and low albumin. * His creatinine has fallen to 3.1. * He made 2000cc of urine overnight. He was started on dobutamine and also Q 6hour IV albumin yesterday. (2) Stage 3b chronic kidney disease: Code(s): N18.32 - Chronic kidney disease, stage 3b Status: Chronic Assessment and Plan: * suspect baseline creatinine 1.9 - 2.3mg/dl * due to biopsy proven diabetic nephropathy along with HTN/vascular disease * suspect creatinine/kidney function will always fluctuate depending on his volume status and necessity of diuretics to achieve euvolemia (3) Hallucinations: Code(s): R44.3 - Hallucinations, unspecified Status: Acute Assessment and Plan: * etiology? * CT of head negative * follow symptoms * Doing much better (4) Acute combined systolic and diastolic CHF, NYHA class 1: Code(s): I50.41 - Acute combined systolic (congestive) and diastolic (congestive) heart failure Status: Acute Assessment and Plan: * well known issues with several recent hospitalizations for this problems * some issues with decompensation related to compliance * Cardiology following * On diuretics, albumin, dobutamine. * Discussed with Dr. Hawley (5) Anasarca: Code(s): R60.1 - Generalized edema Status: Acute Assessment and Plan: * due to heart failure but his nephrotic range proteinuria/syndrome is also playing a role , as he is spilling over 14 g of protein per day. * continue with diuresis * may have to accept a higher creatinine to achieve euvolemia (6) Hypertension: Code(s): I10 - Essential (primary) hypertension Status: Acute Assessment and Plan: * suboptimal control on admission but better at this time * follow hemodynamics with diuresis (7) Diabetes: Code(s): E11.9 - Type 2 diabetes mellitus without complications Status: Chronic Assessment and Plan: * on Accu-Cheks and sliding-scale insulin Will continue to follow. Subjective Date/time seen: 05/26/21 09:13 Interval history: Limited [place]. Resting comfortably lying flat in bed. NG tube is out. He says he ate some food yesterday. He denies shortness of breath. No chest pain or belly pain. He still has a lot of swelling Exam Narrative: General: ill appearing male in NAD; on BiPAP Heart: normal S1 and S2; no rub or gallop Lungs: decreased breath sounds at bases Abdomen: soft, nontender, nondistended, positive bowel sounds Extremities: 2+ edema. Skin: no acute rash no subcu nodules. Objective Data Vital Signs Vital Signs: Vital Signs - 24 hr 05/25/21 09:43 05/25/21 09:44 05/25/21 09:45 Temperature Pulse Rate 78 Respiratory Rate 20 Blood Pressure Pulse Oximetry 88 L 94 05/25/21 09:47 05/25/21 09:59 05/25/21 10:00 Temperature Pulse Rate 81 72 71 Respiratory Rate 28 H Blood Pressure Pulse Oximetry
--- NOTE | 2021-05-26 09:13 | PM.PNNEP ---
Progress Note: A&P Assessment and Plan (1) GLENN (acute kidney injury): Code(s): N17.9 - Acute kidney failure, unspecified Status: Acute Assessment and Plan: acute kidney injury etiology is probably multifactorial, including diastolic dysfunction, and progression of disease the patient may have severe pre renal component as well because of his nephrotic syndrome and low albumin. His creatinine has fallen to 3.1. He made 2000cc of urine overnight. He was started on dobutamine and also Q 6hour IV albumin yesterday. (2) Stage 3b chronic kidney disease: Code(s): N18.32 - Chronic kidney disease, stage 3b Status: Chronic Assessment and Plan: suspect baseline creatinine 1.9 - 2.3mg/dl due to biopsy proven diabetic nephropathy along with HTN/vascular disease suspect creatinine/kidney function will always fluctuate depending on his volume status and necessity of diuretics to achieve euvolemia (3) Hallucinations: Code(s): R44.3 - Hallucinations, unspecified Status: Acute Assessment and Plan: etiology? CT of head negative follow symptoms Doing much better (4) Acute combined systolic and diastolic CHF, NYHA class 1: Code(s): I50.41 - Acute combined systolic (congestive) and diastolic (congestive) heart failure Status: Acute Assessment and Plan: well known issues with several recent hospitalizations for this problems some issues with decompensation related to compliance Cardiology following On diuretics, albumin, dobutamine. Discussed with Dr. Hawley (5) Anasarca: Code(s): R60.1 - Generalized edema Status: Acute Assessment and Plan: due to heart failure but his nephrotic range proteinuria/syndrome is also playing a role , as he is spilling over 14 g of protein per day. continue with diuresis may have to accept a higher creatinine to achieve euvolemia (6) Hypertension: Code(s): I10 - Essential (primary) hypertension Status: Acute Assessment and Plan: suboptimal control on admission but better at this time follow hemodynamics with diuresis (7) Diabetes: Code(s): E11.9 - Type 2 diabetes mellitus without complications Status: Chronic Assessment and Plan: on Accu-Cheks and sliding-scale insulin Will continue to follow. Subjective Date/time seen: 05/26/21 09:13 Interval history: Limited [place]. Resting comfortably lying flat in bed. NG tube is out. He says he ate some food yesterday. He denies shortness of breath. No chest pain or belly pain. He still has a lot of swelling Exam Narrative: General: ill appearing male in NAD; on BiPAP Heart: normal S1 and S2; no rub or gallop Lungs: decreased breath sounds at bases Abdomen: soft, nontender, nondistended, positive bowel sounds Extremities: 2+ edema. Skin: no acute rash no subcu nodules. Objective Data Vital Signs Vital Signs: Vital Signs - 24 hr 05/25/21 09:43 05/25/21 09:44 05/25/21 09:45 Temperature Pulse Rate 78 Respiratory Rate 20 Blood Pressure Pulse Oximetry 88 L 94 05/25/21 09:47 05/25/21 09:59 05/25/21 10:00 Temperature Pulse Rate 81 72 71 Respiratory Rate 28 H Blood Pressure Pulse Oximetry 05/25/21 12:00 05/25/21 12:17 05/25/21 13:17 Temperature 36.6 C Pulse Rate 72 71 84 Respiratory Rate 26 H 20 Blood Pressure 139/66 130/65 Pulse Oximetry 98 05/25/21 13:27 05/25/21 14:00 05/25/21 15:45 Temperature Pulse Rate 85 87 Respiratory Rate 20 Blood Pressure Pulse Oximetry 100 05/25/21 16:00 05/25/21 16:15 05/25/21 16:22 Temperature 36.3 C L Pulse Rate 86 87 88 Respiratory Rate 28 H 24 H Blood Pressure 127/77 Pulse Oximetry 92 05/25/21 18:00 05/25/21 20:00 05/25/21 20:12 Temperature 36.8 C Pulse Rate 91 90 87 Respiratory Rate 20 20 Blood Pressure 128/91 H Pulse Oximetry 95 95 05/25/21
[2021-05-26] MEDS: BUMETANIDE INJ 2.5 MG/10 ML VIAL 2 MG IV PUSH ×2 (10:02→17:34)
[2021-05-26] MEDS: METOPROLOL TARTRATE 50 MG TAB PO ×2 (10:03→20:08)
[2021-05-26] MEDS: GABAPENTIN 300 MG CAPSULE PO ×2 (10:03→13:14)
[2021-05-26] MEDS: ATORVASTATIN 40 MG TABLET PO (10:03)
--- NOTE | 2021-05-26 10:52 | PM.PNCARD ---
Progress Note: A&P Assessment and Plan (1) Acute combined systolic and diastolic CHF, NYHA class 1: Code(s): I50.41 - Acute combined systolic (congestive) and diastolic (congestive) heart failure Status: Acute Assessment and Plan: Patient presents with acute on chronic systolic and diastolic heart failure, anasarca, pleural effusions. More alert today and off BiPAP but not diuresing any further. Continue IV Bumex. Still has significant anasarca. Follow renal function closely with a daily BMP - BUN/Cr continue to rise. Nephrotic range proteinuria and hypoalbuminemia are certainly contributing factors to swelling as well. Seems to be diuresing better with ionotropic support dobutamine 2.5 mcg/kg/minute. . Continue telemetry and monitor closely for worsening arrhythmia after starting inotrope Repeat portable CXR (2) Nonsustained ventricular tachycardia: Code(s): I47.2 - Ventricular tachycardia Status: Acute Assessment and Plan: No nonsustained V-tach recently. Continue beta-malik Follow electrolytes (3) Ischemic cardiomyopathy: Code(s): I25.5 - Ischemic cardiomyopathy Status: Acute Assessment and Plan: EF 40-45%. Lexiscan suggests an old large infarct. No angina. Continue therapy with lisinopril, metoprolol The aspirin has likely been held due to anemia which has improved. Hgb did drop from 11.3 on admission to 9.1 but is now stable. Daily H&H Consider adding ASA prior to d/c if h/h are stable. On statin. (4) Chronic kidney disease, stage 3b: Code(s): N18.32 - Chronic kidney disease, stage 3b Status: Acute Assessment and Plan: Stabilizing Has nephrotic range proteinuria which is contributing to the patient's anasarca. (5) Hypertension: Code(s): I10 - Essential (primary) hypertension Status: Acute Assessment and Plan: Improved, on usual home meds. (6) Encephalopathy: Code(s): G93.40 - Encephalopathy, unspecified Status: Acute Assessment and Plan: Has been hallucinating and is confused. Oxygenating well. Subjective Date/time seen: 05/26/21 10:52 Interval history: Follow-up for acute on chronic CHF, HTN, nonsustained ventricular tachycardia, presumed CAD. Encephalopathic. 05/21/2021: Started on Bumex 1 mg IV push b.i.d. for anasarca 05/22/2021: He is confused today and unable to answer my questions. Tachypneic but otherwise appears comfortable. Receiving nebulizer treatment. Continue IV Bumex 05/23/2021: Drowsy and confused, remains on BiPAP with good oxygenation.. I's and O's 1300/2450. BUN and creatinine have increased. Telemetry shows NSR with PVCs. Reduce Bumex to 1 mg IV push daily due to worsening renal function. Date of service 05/24/2021: More alert today, on nasal cannula at 2 L O2 in off his BiPAP. Complaining of shoulder stiffness and bilateral for forearm pain. NG tube placed and now getting NG feedings. Has a Ramirez in and I's and O's yesterday were 1000/750. Looks like I's and O's will be quite positive today as well. Getting some IV albumin x1 to see if that helps with urine output. Date of service 05/25/2021: More awake alert today but still not making much urine. No chest pain. Diffuse edema. Positive short of breath Date of service 05/26/2021: Feels better today. Less short of breath. He is diuresing today. No chest pain. Review of Systems Review of Systems: ROS unobtainable: Yes unobtainable due to mental status Constitutional: Constitutional: Reports fatigue and Reports weakness Eyes: Eyes: Reports no additional eye complaints ENT: Denies epistaxis Cardiovascular: Cardiovascular: Denies chest pain, Reports pedal edema, Reports leg edema, Reports dyspnea and Reports dyspnea on exertion Respiratory: Respiratory: Reports no additi
--- NOTE | 2021-05-26 12:22 | PM.IMPN ---
Progress Note: A&P Assessment and Plan (1) Combined congestive systolic and diastolic heart failure: Code(s): I50.40 - Unspecified combined systolic (congestive) and diastolic (congestive) heart failure Status: Acute Assessment and Plan: Admit to IMU Aggressive diuresis Cardiology consult Nephrology consult Pt is on dobutamine and bumex due to poor UO (2) Infiltrate of lung present on chest x-ray: Code(s): R91.8 - Other nonspecific abnormal finding of lung field Status: Acute Assessment and Plan: Patient with no fever no leukocytosis no sputum production Blood cultures in progress (3) Acute respiratory failure with hypoxia: Code(s): J96.01 - Acute respiratory failure with hypoxia Status: Acute Assessment and Plan: Oxygen by nasal cannula as needed (4) Insulin dependent diabetes mellitus: Status: Chronic Assessment and Plan: Holding metformin Continue insulin Carb consistent diet (5) CAD (coronary artery disease): Code(s): I25.10 - Atherosclerotic heart disease of [place] coronary artery without angina pectoris Status: Acute Assessment and Plan: Continue home meds No chest pain Supportive care (6) Chronic kidney disease: Code(s): N18.9 - Chronic kidney disease, unspecified Status: Chronic Assessment and Plan: BUN and creatinine at patient's baseline (7) Below-knee amputation of right lower extremity: Code(s): S88.111A - Complete traumatic amputation at level between knee and ankle, right lower leg, initial encounter Status: Acute Assessment and Plan: For precautions (8) Diabetic ulcer of left foot: Code(s): E11.621 - Type 2 diabetes mellitus with foot ulcer; L97.529 - Non-pressure chronic ulcer of other part of left foot with unspecified severity Status: Acute Assessment and Plan: Wound care consult Local care Looks worse cover maybe infected, cellulitic appearance, BC are negative. order IV rocephin Subjective Date/time seen: 05/26/21 12:22 Interval history: 45-year-old male with past medical history significant for type 2 diabetes mellitus insulin dependent, congestive heart failure, hypoxic respiratory failure, right BKA, left diabetic foot, chronic nonhealing ulcer of the right foot, hypertension. Pt is overloaded, looks clammy and unwell. Review of Systems Review of Systems: All systems reviewed & are unremarkable except as noted in HPI and below Exam Narrative: Patient looks overloaded, looks clammy and unwell HEENT: eyes are clear and none icteric, JVD is up LUNGS: normal respiratory effort ABDo: distended Lower extremities: right lower extremity BKA, left lower extremity edema looks cellulitic red weeping swollen infected SKIN: nonjaundiced Neuro: alert talking to me appropriately Objective Data Vital Signs Vital Signs: Vital Signs - 24 hr 05/25/21 13:17 05/25/21 13:27 05/25/21 14:00 Temperature Pulse Rate 84 85 87 Respiratory Rate 20 20 Blood Pressure Pulse Oximetry 05/25/21 15:45 05/25/21 16:00 05/25/21 16:15 Temperature 36.3 C L Pulse Rate 86 87 Respiratory Rate 28 H 24 H Blood Pressure 127/77 Pulse Oximetry 100 92 05/25/21 16:22 05/25/21 18:00 05/25/21 20:00 Temperature 36.8 C Pulse Rate 88 91 90 Respiratory Rate 20 Blood Pressure 128/91 H Pulse Oximetry 95 05/25/21 20:12 05/25/21 20:19 05/25/21 22:00 Temperature Pulse Rate 87 95 92 Respiratory Rate 20 20 Blood Pressure Pulse Oximetry 95 05/25/21 23:00 05/26/21 00:00 05/26/21 00:25 Temperature 37.0 C Pulse Rate 92 91 82 Respiratory Rate 20 20 Blood Pressure 154/74 H Pulse Oximetry 93 93 05/26/21 00:35 05/26/21 02:00 05/26/21 04:00 Temperature 36.8 C Pulse Rate 87 86 85 Respiratory Rate 20 18 Blood Pressure 151/72 H Pulse Oximetry 100 05/26/21 04:07 05/26/21 04:18 05/26/21 06:00
[2021-05-26 13:16] LABS: Glucose Point of Care 121 mg/dl (65-105)
[2021-05-26 17:37] LABS: Glucose Point of Care 97 mg/dl (65-105)
[2021-05-26] MEDS: QUEtiapine FUMARATE 25 MG TABLET 50 MG PO (20:08)
[2021-05-26 20:18] LABS: Glucose Point of Care 81 mg/dl (65-105)
[2021-05-27] VITALS (22 sets, daily range): BP systolic 152–172; BP diastolic 66–83; PULSE 74–101; RESP 18–30; TEMP 36.2–37.1; O2SAT 91–99
[2021-05-27] MEDS: IPRATROPIUM BR 0.02% INH SOLN 0.5 MG/2.5 ML VIAL INHALATION ×4 (01:36→19:59)
[2021-05-27] MEDS: ALBUTEROL SULFATE NEB 2.5 MG/0.5 ML INH INHALATION ×4 (01:36→19:59)
[2021-05-27 05:18] LABS: Albumin Level 3.8 g/dL (3.5-5.1); Anion Gap 9 mmol/L (8-16); Blood Urea Nitrogen 68 mg/dL (9-20); Calcium 8.5 mg/dL (8.4-10.2); Carbon Dioxide 24 mmol/L (22-30); Chloride 109 mmol/L (98-107); Estimated CRCL calculation 32 ml/min; Estimated Glomerular Filt Rate 23; Glucose 70 mg/dL (65-110); Phosphorus 4.9 mg/dL (2.5-4.5); Potassium 4.8 mmol/L (3.4-5.0); Sodium 142 mmol/L (137-145)
[2021-05-27] MEDS: ALBUMIN HUMAN 25% 25 GM/100 ML 100 ML IVPB (05:33)
[2021-05-27 08:42] LABS: Glucose Point of Care 67 mg/dl (65-105)
[2021-05-27] MEDS: METOPROLOL TARTRATE 50 MG TAB PO ×2 (08:53→20:12)
[2021-05-27] MEDS: BUMETANIDE INJ 2.5 MG/10 ML VIAL 2 MG IV PUSH ×2 (08:53→17:21)
[2021-05-27] MEDS: GABAPENTIN 300 MG CAPSULE PO ×3 (08:53→17:21)
[2021-05-27] MEDS: ATORVASTATIN 40 MG TABLET PO (08:53)
--- NOTE | 2021-05-27 10:44 | PM.PNCARD ---
Progress Note: A&P Assessment and Plan (1) Acute combined systolic and diastolic CHF, NYHA class 1: Code(s): I50.41 - Acute combined systolic (congestive) and diastolic (congestive) heart failure Status: Acute Assessment and Plan: Patient presents with acute on chronic systolic and diastolic heart failure, anasarca, pleural effusions. More alert today and off BiPAP but not diuresing any further. Continue IV Bumex. Still has significant anasarca. Follow renal function closely with a daily BMP - BUN/Cr continue to rise. Nephrotic range proteinuria and hypoalbuminemia are certainly contributing factors to swelling as well. Continues to diurese better with ionotropic support dobutamine 2.5 mcg/kg/minute. . Continue telemetry and monitor closely for worsening arrhythmia after starting inotrope (2) Nonsustained ventricular tachycardia: Code(s): I47.2 - Ventricular tachycardia Status: Acute Assessment and Plan: No nonsustained V-tach recently. Continue beta-malik Follow electrolytes (3) Ischemic cardiomyopathy: Code(s): I25.5 - Ischemic cardiomyopathy Status: Acute Assessment and Plan: EF 40-45%. Lexiscan suggests an old large infarct. No angina. Continue therapy with lisinopril, metoprolol The aspirin has likely been held due to anemia which has improved. Hgb did drop from 11.3 on admission to 9.1 but is now stable. Daily H&H Consider adding ASA prior to d/c if h/h are stable. On statin. (4) Chronic kidney disease, stage 3b: Code(s): N18.32 - Chronic kidney disease, stage 3b Status: Acute Assessment and Plan: Stabilizing Has nephrotic range proteinuria which is contributing to the patient's anasarca. (5) Hypertension: Code(s): I10 - Essential (primary) hypertension Status: Acute Assessment and Plan: Elevated today. Low-dose amlodipine 2.5 mg daily to be started (6) Encephalopathy: Code(s): G93.40 - Encephalopathy, unspecified Status: Acute Assessment and Plan: Has been hallucinating and is confused. Oxygenating well. Subjective Date/time seen: 05/27/21 10:44 Interval history: Follow-up for acute on chronic CHF, HTN, nonsustained ventricular tachycardia, presumed CAD. Encephalopathic. 05/21/2021: Started on Bumex 1 mg IV push b.i.d. for anasarca 05/22/2021: He is confused today and unable to answer my questions. Tachypneic but otherwise appears comfortable. Receiving nebulizer treatment. Continue IV Bumex 05/23/2021: Drowsy and confused, remains on BiPAP with good oxygenation.. I's and O's 1300/2450. BUN and creatinine have increased. Telemetry shows NSR with PVCs. Reduce Bumex to 1 mg IV push daily due to worsening renal function. Date of service 05/24/2021: More alert today, on nasal cannula at 2 L O2 in off his BiPAP. Complaining of shoulder stiffness and bilateral for forearm pain. NG tube placed and now getting NG feedings. Has a Ramirez in and I's and O's yesterday were 1000/750. Looks like I's and O's will be quite positive today as well. Getting some IV albumin x1 to see if that helps with urine output. Date of service 05/25/2021: More awake alert today but still not making much urine. No chest pain. Diffuse edema. Positive short of breath Date of service 05/26/2021: Feels better today. Less short of breath. He is diuresing today. No chest pain. Date of service 05/27/2021: Still diffusely swollen. Making urine. He is short of breath but no chest pain Review of Systems Review of Systems: ROS unobtainable: Yes unobtainable due to mental status Constitutional: Constitutional: Reports fatigue and Reports weakness Eyes: Eyes: Reports no additional eye complaints ENT: Denies epistaxis Cardiovascular: Cardiovascular: Denies chest pain, Reports pedal
[2021-05-27] MEDS: DOBUTamine 250 MG/D5W 250 ML 250 MG/250 ML BAG 15.72 MG IV CONT (11:02)
[2021-05-27 11:48] LABS: Glucose Point of Care 96 mg/dl (65-105)
--- NOTE | 2021-05-27 12:48 | PM.IMPN ---
Progress Note: A&P Assessment and Plan (1) Combined congestive systolic and diastolic heart failure: Code(s): I50.40 - Unspecified combined systolic (congestive) and diastolic (congestive) heart failure Status: Acute Assessment and Plan: Aggressive diuresis Cardiology consult Nephrology consult Pt is on dobutamine watch ins and outs Watch kidneys (2) Infiltrate of lung present on chest x-ray: Code(s): R91.8 - Other nonspecific abnormal finding of lung field Status: Acute Assessment and Plan: Patient with no fever no leukocytosis no sputum production BC is negative (3) Acute respiratory failure with hypoxia: Code(s): J96.01 - Acute respiratory failure with hypoxia Status: Acute Assessment and Plan: Oxygen by nasal cannula as needed (4) Insulin dependent diabetes mellitus: Status: Chronic Assessment and Plan: Holding metformin Continue insulin Carb consistent diet Sugars are 70s (5) CAD (coronary artery disease): Code(s): I25.10 - Atherosclerotic heart disease of [place] coronary artery without angina pectoris Status: Acute Assessment and Plan: Continue home meds No chest pain Supportive care (6) Chronic kidney disease: Code(s): N18.9 - Chronic kidney disease, unspecified Status: Chronic Assessment and Plan: creat is 2.9 , baseline around 2, continue to watch kidney function carefully and UO (7) Below-knee amputation of right lower extremity: Code(s): S88.111A - Complete traumatic amputation at level between knee and ankle, right lower leg, initial encounter Status: Acute Assessment and Plan: For precautions (8) Diabetic ulcer of left foot: Code(s): E11.621 - Type 2 diabetes mellitus with foot ulcer; L97.529 - Non-pressure chronic ulcer of other part of left foot with unspecified severity Status: Acute Assessment and Plan: Wound care consult Local care Looks worse cover maybe infected, cellulitic appearance, BC are negative. on IV rocephin day 2 stop tomorrow. Subjective Date/time seen: 05/27/21 12:48 Interval history: 45-year-old male with past medical history significant for type 2 diabetes mellitus insulin dependent, congestive heart failure, hypoxic respiratory failure, right BKA, left diabetic foot, chronic nonhealing ulcer of the right foot, hypertension. Pt is overloaded, looks better today following commands better but still pleasantly confused Review of Systems Review of Systems: All systems reviewed & are unremarkable except as noted in HPI and below Exam Narrative: Patient looks overloaded pleasantly confused unwell young man HEENT: eyes are clear and none icteric, JVD is up LUNGS: normal respiratory effort ABDO: distended Lower extremities: right lower extremity BKA, left lower extremity edema looks cellulitic red swollen infected SKIN: nonjaundiced Neuro: alert nodding and following simple commands Objective Data Vital Signs Vital Signs: Vital Signs - 24 hr 05/26/21 14:00 05/26/21 16:00 05/26/21 16:20 Temperature 36.6 C Pulse Rate 83 83 85 Respiratory Rate 28 H 22 H Blood Pressure 151/77 H Pulse Oximetry 96 05/26/21 16:29 05/26/21 18:00 05/26/21 20:00 Temperature 36.7 C Pulse Rate 87 82 85 Respiratory Rate 24 H 20 Blood Pressure 178/81 H Pulse Oximetry 97 05/26/21 21:08 05/26/21 21:09 05/26/21 21:18 Temperature Pulse Rate 80 83 Respiratory Rate 20 20 Blood Pressure Pulse Oximetry 97 05/26/21 22:00 05/26/21 23:09 05/27/21 00:00 Temperature 36.7 C Pulse Rate 83 80 81 Respiratory Rate 20 Blood Pressure 167/79 H Pulse Oximetry 97 97 05/27/21 01:38 05/27/21 01:45 05/27/21 02:00 Temperature Pulse Rate 91 93 83 Respiratory Rate 18 18 Blood Pressure Pulse Oximetry 05/27/21 04:00 05/27/21 06:00 05/27/21 08:00 Temperature 37.1 C 36.7 C Pulse Rate
--- NOTE | 2021-05-27 13:21 | P.PNNP_ITS ---
Progress Note: A&P Assessment and Plan (1) GLENN (acute kidney injury): Code(s): N17.9 - Acute kidney failure, unspecified Status: Acute Assessment and Plan: * acute kidney injury * etiology is probably multifactorial, including diastolic dysfunction, and progression of disease * the patient may have severe pre renal component as well because of his nephrotic syndrome and low albumin. * His creatinine has fallen to 2.9. * He made 2250cc of urine overnight. He was started on dobutamine and also Q6 hour IV albumin yesterday. * His albumin levels up to 3.5 so I will stop the albumin supplementation. (2) Stage 3b chronic kidney disease: Code(s): N18.32 - Chronic kidney disease, stage 3b Status: Chronic Assessment and Plan: * suspect baseline creatinine 1.9 - 2.3mg/dl * due to biopsy proven diabetic nephropathy along with HTN/vascular disease * suspect creatinine/kidney function will always fluctuate depending on his volume status and necessity of diuretics to achieve euvolemia (3) Hallucinations: Code(s): R44.3 - Hallucinations, unspecified Status: Acute Assessment and Plan: * etiology? * CT of head negative * Still hallucinating some but apparently better. (4) Acute combined systolic and diastolic CHF, NYHA class 1: Code(s): I50.41 - Acute combined systolic (congestive) and diastolic (congestive) heart failure Status: Acute Assessment and Plan: * well known issues with several recent hospitalizations for this problems * some issues with decompensation related to compliance * Cardiology following * On diuretics, albumin, dobutamine. (5) Anasarca: Code(s): R60.1 - Generalized edema Status: Acute Assessment and Plan: * due to heart failure but his nephrotic range proteinuria/syndrome is also playing a role , as he is spilling over 14 g of protein per day. * continue with diuresis * may have to accept a higher creatinine to achieve euvolemia (6) Hypertension: Code(s): I10 - Essential (primary) hypertension Status: Acute Assessment and Plan: * Blood pressure is generous. * He is on amlodipine which worsens edema and proteinuria. * Will increase lisinopril and eliminate amlodipine. * follow hemodynamics with diuresis (7) Diabetes: Code(s): E11.9 - Type 2 diabetes mellitus without complications Status: Chronic Assessment and Plan: * on Accu-Cheks and sliding-scale insulin Subjective Date/time seen: 05/27/21 13:21 Interval history: Limited La[place]. Resting comfortably lying flat in bed. still hallucinating. Pointing at things in the corner. He tried to eat his blood pressure cuff earlier. NG tube is out. He ate pretty well yesterday according to the nurses. He denies shortness of breath. No chest pain or belly pain. He still has a lot of swelling Exam Narrative: General: ill appearing male in NAD; on BiPAP Heart: normal S1 and S2; no rub or gallop Lungs: decreased breath sounds at bases Abdomen: soft, nontender, nondistended, positive bowel sounds Extremities: 2+ Symmetrical edema. Skin: no acute rash no subcu nodules. Objective Data Vital Signs Vital Signs: Vital Signs - 24 hr 05/26/21 14:00 05/26/21 16:00 05/26/21 16:20 Temperature 36.6 C Pulse Rate 83 83 85 Respiratory Rate 28 H 22 H Blood Pressure 151/77 H
--- NOTE | 2021-05-27 13:21 | PM.PNNEP ---
Progress Note: A&P Assessment and Plan (1) GLENN (acute kidney injury): Code(s): N17.9 - Acute kidney failure, unspecified Status: Acute Assessment and Plan: acute kidney injury etiology is probably multifactorial, including diastolic dysfunction, and progression of disease the patient may have severe pre renal component as well because of his nephrotic syndrome and low albumin. His creatinine has fallen to 2.9. He made 2250cc of urine overnight. He was started on dobutamine and also Q6 hour IV albumin yesterday. His albumin levels up to 3.5 so I will stop the albumin supplementation. (2) Stage 3b chronic kidney disease: Code(s): N18.32 - Chronic kidney disease, stage 3b Status: Chronic Assessment and Plan: suspect baseline creatinine 1.9 - 2.3mg/dl due to biopsy proven diabetic nephropathy along with HTN/vascular disease suspect creatinine/kidney function will always fluctuate depending on his volume status and necessity of diuretics to achieve euvolemia (3) Hallucinations: Code(s): R44.3 - Hallucinations, unspecified Status: Acute Assessment and Plan: etiology? CT of head negative Still hallucinating some but apparently better. (4) Acute combined systolic and diastolic CHF, NYHA class 1: Code(s): I50.41 - Acute combined systolic (congestive) and diastolic (congestive) heart failure Status: Acute Assessment and Plan: well known issues with several recent hospitalizations for this problems some issues with decompensation related to compliance Cardiology following On diuretics, albumin, dobutamine. (5) Anasarca: Code(s): R60.1 - Generalized edema Status: Acute Assessment and Plan: due to heart failure but his nephrotic range proteinuria/syndrome is also playing a role , as he is spilling over 14 g of protein per day. continue with diuresis may have to accept a higher creatinine to achieve euvolemia (6) Hypertension: Code(s): I10 - Essential (primary) hypertension Status: Acute Assessment and Plan: Blood pressure is generous. He is on amlodipine which worsens edema and proteinuria. Will increase lisinopril and eliminate amlodipine. follow hemodynamics with diuresis (7) Diabetes: Code(s): E11.9 - Type 2 diabetes mellitus without complications Status: Chronic Assessment and Plan: on Accu-Cheks and sliding-scale insulin Subjective Date/time seen: 05/27/21 13:21 Interval history: Limited [place]. Resting comfortably lying flat in bed. still hallucinating. Pointing at things in the corner. He tried to eat his blood pressure cuff earlier. NG tube is out. He ate pretty well yesterday according to the nurses. He denies shortness of breath. No chest pain or belly pain. He still has a lot of swelling Exam Narrative: General: ill appearing male in NAD; on BiPAP Heart: normal S1 and S2; no rub or gallop Lungs: decreased breath sounds at bases Abdomen: soft, nontender, nondistended, positive bowel sounds Extremities: 2+ Symmetrical edema. Skin: no acute rash no subcu nodules. Objective Data Vital Signs Vital Signs: Vital Signs - 24 hr 05/26/21 14:00 05/26/21 16:00 05/26/21 16:20 Temperature 36.6 C Pulse Rate 83 83 85 Respiratory Rate 28 H 22 H Blood Pressure 151/77 H Pulse Oximetry 96 05/26/21 16:29 05/26/21 18:00 05/26/21 20:00 Temperature 36.7 C Pulse Rate 87 82 85 Respiratory Rate 24 H 20 Blood Pressure 178/81 H Pulse Oximetry 97 05/26/21 21:08 05/26/21 21:09 05/26/21 21:18 Temperature Pulse Rate 80 83 Respiratory Rate 20 20 Blood Pressure Pulse Oximetry 97 05/26/21 22:00 05/26/21 23:09 05/27/21 00:00 Temperature 36.7 C Pulse Rate 83 80 81 Respiratory Rate 20 Blood Pressure 167/79 H Pulse Oximetry 97 97 05/27/21 01:38 05/27/21 01:45 05/27/21 02:00
--- NOTE | 2021-05-27 13:46 | PC.NURSE ---
On 05/27/21, the student, Nyla [facility]ON [facility], provided care and completed [facility] documentation on this patient. I have reviewed the student's documentation and agree with the findings.
[2021-05-27] MEDS: LIDOCAINE HCL 1% LOCAL INJ 2 ML AMPUL 5 ML INFILTRATE (14:30)
[2021-05-27] MEDS: hydrALAZINE 10 MG TABLET PO ×2 (15:25→17:21)
[2021-05-27 17:03] LABS: Glucose Point of Care 88 mg/dl (65-105)
[2021-05-27] MEDS: CENTRAL LINE FLUSH 10 ML IV PUSH ×2 (17:22→20:13)
--- NOTE | 2021-05-27 17:51 | PCRCNOTE ---
Window of time for administration has passed. See next scheduled administration.
[2021-05-27] MEDS: QUEtiapine FUMARATE 25 MG TABLET 50 MG PO (20:13)
[2021-05-27 20:51] LABS: Glucose Point of Care 114 mg/dl (65-105)
[2021-05-28] VITALS (27 sets, daily range): BP systolic 146–170; BP diastolic 72–86; PULSE 66–90; RESP 18–24; TEMP 36.1–37; O2SAT 93–100
[2021-05-28] MEDS: IPRATROPIUM BR 0.02% INH SOLN 0.5 MG/2.5 ML VIAL INHALATION ×6 (00:26→21:02)
[2021-05-28] MEDS: ALBUTEROL SULFATE NEB 2.5 MG/0.5 ML INH INHALATION ×6 (00:26→21:01)
[2021-05-28] MEDS: DOBUTamine 250 MG/D5W 250 ML 250 MG/250 ML BAG 15.72 MG IV CONT ×2 (02:24→18:33)
[2021-05-28 03:47] LABS: Anion Gap 6 mmol/L (8-16); Blood Urea Nitrogen 63 mg/dL (9-20); Calcium 8.4 mg/dL (8.4-10.2); Carbon Dioxide 29 mmol/L (22-30); Chloride 108 mmol/L (98-107); Estimated CRCL calculation 32 ml/min; Estimated Glomerular Filt Rate 23; Glucose 91 mg/dL (65-110); Potassium 4.8 mmol/L (3.4-5.0); Sodium 143 mmol/L (137-145)
[2021-05-28 03:49] LABS: Albumin Level 3.3 g/dL (3.5-5.1); Anion Gap 4 mmol/L (8-16); Blood Urea Nitrogen 63 mg/dL (9-20); Calcium 8.5 mg/dL (8.4-10.2); Carbon Dioxide 30 mmol/L (22-30); Chloride 108 mmol/L (98-107); Estimated CRCL calculation 32 ml/min; Estimated Glomerular Filt Rate 23; Glucose 90 mg/dL (65-110); Phosphorus 5.3 mg/dL (2.5-4.5); Potassium 4.8 mmol/L (3.4-5.0); Sodium 142 mmol/L (137-145)
[2021-05-28] MEDS: CENTRAL LINE FLUSH 10 ML IV PUSH ×4 (05:45→20:21)
[2021-05-28] MEDS: hydrALAZINE 10 MG TABLET PO ×3 (08:23→17:27)
[2021-05-28] MEDS: ATORVASTATIN 40 MG TABLET PO (08:23)
[2021-05-28] MEDS: GABAPENTIN 300 MG CAPSULE PO ×3 (08:23→17:27)
[2021-05-28] MEDS: BUMETANIDE INJ 2.5 MG/10 ML VIAL 2 MG IV PUSH ×2 (08:23→17:26)
[2021-05-28] MEDS: METOPROLOL TARTRATE 50 MG TAB PO ×2 (08:24→20:20)
[2021-05-28 08:39] LABS: Glucose Point of Care 77 mg/dl (65-105)
--- NOTE | 2021-05-28 10:19 | PM.PNCARD ---
Progress Note: A&P Assessment and Plan (1) Acute combined systolic and diastolic CHF, NYHA class 1: Code(s): I50.41 - Acute combined systolic (congestive) and diastolic (congestive) heart failure Status: Acute Assessment and Plan: Patient presents with acute on chronic systolic and diastolic heart failure, anasarca, pleural effusions. More alert today and off BiPAP but not diuresing any further. Continue IV Bumex. Still has significant anasarca. Follow renal function closely with a daily BMP - BUN/Cr continue to rise. Nephrotic range proteinuria and hypoalbuminemia are certainly contributing factors to swelling as well. Continues to diurese better with ionotropic support dobutamine 2.5 mcg/kg/minute. . Continue telemetry and monitor closely for worsening arrhythmia after starting inotrope (2) Nonsustained ventricular tachycardia: Code(s): I47.2 - Ventricular tachycardia Status: Acute Assessment and Plan: No nonsustained V-tach recently. Continue beta-malik Follow electrolytes (3) Ischemic cardiomyopathy: Code(s): I25.5 - Ischemic cardiomyopathy Status: Acute Assessment and Plan: EF 40-45%. Lexiscan suggests an old large infarct. No angina. Continue therapy with lisinopril, metoprolol The aspirin has likely been held due to anemia which has improved. Hgb did drop from 11.3 on admission to 9.1 but is now stable. Daily H&H Consider adding ASA prior to d/c if h/h are stable. On statin. (4) Chronic kidney disease, stage 3b: Code(s): N18.32 - Chronic kidney disease, stage 3b Status: Acute Assessment and Plan: Stabilizing Has nephrotic range proteinuria which is contributing to the patient's anasarca. (5) Hypertension: Code(s): I10 - Essential (primary) hypertension Status: Acute Assessment and Plan: Elevated today. On lisinopril (6) Encephalopathy: Code(s): G93.40 - Encephalopathy, unspecified Status: Acute Assessment and Plan: Has been hallucinating and is confused. Oxygenating well. Subjective Date/time seen: 05/28/21 10:19 Interval history: Follow-up for acute on chronic CHF, HTN, nonsustained ventricular tachycardia, presumed CAD. Encephalopathic. 05/21/2021: Started on Bumex 1 mg IV push b.i.d. for anasarca 05/22/2021: He is confused today and unable to answer my questions. Tachypneic but otherwise appears comfortable. Receiving nebulizer treatment. Continue IV Bumex 05/23/2021: Drowsy and confused, remains on BiPAP with good oxygenation.. I's and O's 1300/2450. BUN and creatinine have increased. Telemetry shows NSR with PVCs. Reduce Bumex to 1 mg IV push daily due to worsening renal function. Date of service 05/24/2021: More alert today, on nasal cannula at 2 L O2 in off his BiPAP. Complaining of shoulder stiffness and bilateral for forearm pain. NG tube placed and now getting NG feedings. Has a Ramirez in and I's and O's yesterday were 1000/750. Looks like I's and O's will be quite positive today as well. Getting some IV albumin x1 to see if that helps with urine output. Date of service 05/25/2021: More awake alert today but still not making much urine. No chest pain. Diffuse edema. Positive short of breath Date of service 05/26/2021: Feels better today. Less short of breath. He is diuresing today. No chest pain. Date of service 05/27/2021: Still diffusely swollen. Making urine. He is short of breath but no chest pain Date of service 05/28/2021: Still swollen but continues to make good urine. No chest pain. Resting comfortably in bed at this point Review of Systems Review of Systems: ROS unobtainable: Yes unobtainable due to mental status Constitutional: Constitutional: Reports fatigue and Reports weakness Eyes: Eyes: Reports no additional eye
--- NOTE | 2021-05-28 11:17 | PCDIET ---
Nutrition Follow-Up Complete: Nutrition Diagnosis: Inadequate oral intake related to altered mental status as evidenced by need for tube feedings. Nutrition Goal: Patient to meet estimated nutritional needs. Goal in progress. Average intake of recorded meals since 05/25/21 has been 61%. Patient currently on diabetic, soft and bite size diet. Would also benefit from 2g sodium restriction. Recommend adding Su[place]ena (420kcal, 10g protein) 1x daily to supplement intakes. Last recorded weight is 101.5 kg which is down from last review. -I/O. Bowel Motility: BM x 1 today. Labs Reviewed: BUN (63), Cr (2.9), Alb (3.3), PO4 (5.3), Cl (108) Meds Noted: Albuterol, Lipitor, Bumex, Rocephin, Dobutamine, Apresoline, Atrovent, Lopressor, Seroquel Additional Notes: Left lower leg ulcer and sacral deep tissue ulcer documented. Left foot also with scabs. Patient diuresing. Will continue to monitor with same goal. Nutrition Monitoring and Evaluation: Follow up in 5 days.
[2021-05-28 11:46] LABS: Glucose Point of Care 82 mg/dl (65-105)
--- NOTE | 2021-05-28 13:40 | PM.IMPN ---
Progress Note: A&P Assessment and Plan (1) Combined congestive systolic and diastolic heart failure: Code(s): I50.40 - Unspecified combined systolic (congestive) and diastolic (congestive) heart failure Status: Acute Assessment and Plan: Aggressive diuresis for anasarca Cardiology consult Nephrology consult Pt is on dobutamine watch ins and outs and bumex IV BID Continue to watch kidneys (2) Infiltrate of lung present on chest x-ray: Code(s): R91.8 - Other nonspecific abnormal finding of lung field Status: Acute Assessment and Plan: Patient with no fever no leukocytosis no sputum production BC is negative can stop IV abx (3) Acute respiratory failure with hypoxia: Code(s): J96.01 - Acute respiratory failure with hypoxia Status: Acute Assessment and Plan: Oxygen by nasal cannula as needed (4) Insulin dependent diabetes mellitus: Status: Chronic Assessment and Plan: Holding metformin Continue insulin Carb consistent diet Sugars are 70s (5) CAD (coronary artery disease): Code(s): I25.10 - Atherosclerotic heart disease of [place] coronary artery without angina pectoris Status: Acute Assessment and Plan: Continue home meds No chest pain Supportive care (6) Below-knee amputation of right lower extremity: Code(s): S88.111A - Complete traumatic amputation at level between knee and ankle, right lower leg, initial encounter Status: Acute Assessment and Plan: Continue to watch legs (7) Diabetic ulcer of left foot: Code(s): E11.621 - Type 2 diabetes mellitus with foot ulcer; L97.529 - Non-pressure chronic ulcer of other part of left foot with unspecified severity Status: Acute Assessment and Plan: Wound care consult Local care Looks worse cover maybe infected, cellulitic appearance, BC are negative. on IV rocephin, can stop now. (8) Stage 3b chronic kidney disease: Code(s): N18.32 - Chronic kidney disease, stage 3b Status: Chronic Assessment and Plan: Creat is 2.9 baseline is around 2, continue to watch kidney function carefully and UO Secondary to diabetic nephropathy along with HTN/vascular disease and possible nephrotic syndrome Subjective Date/time seen: 05/28/21 13:40 Interval history: 45-year-old male with past medical history significant for type 2 diabetes mellitus insulin dependent, congestive heart failure, hypoxic respiratory failure, right BKA, left diabetic foot, chronic nonhealing ulcer of the right foot, hypertension. Pt is still looks overloaded, pt is in deep sleep today Review of Systems Review of Systems: All systems reviewed & are unremarkable except as noted in HPI and below Exam Narrative: Patient looks overloaded pt is in a deep sleep HEENT: eyes are clear and none icteric, jugular line in situ LUNGS: normal respiratory effort ABDO: distended Lower extremities: right lower extremity BKA, left lower extremity edema not red today Neuro: in a deep sleep Objective Data Vital Signs Vital Signs: Vital Signs - 24 hr 05/27/21 14:00 05/27/21 16:00 05/27/21 18:00 Temperature 36.8 C Pulse Rate 88 96 93 Respiratory Rate 24 H Blood Pressure 160/75 H Pulse Oximetry 93 05/27/21 19:38 05/27/21 20:00 05/27/21 20:12 Temperature 36.2 C L Pulse Rate 92 93 92 Respiratory Rate 28 H 22 H Blood Pressure 172/75 H Pulse Oximetry 94 91 05/27/21 20:15 05/27/21 22:00 05/27/21 23:46 Temperature 37.1 C Pulse Rate 92 90 101 H Respiratory Rate 22 H 22 H Blood Pressure 161/83 H Pulse Oximetry 92 99 05/28/21 00:00 05/28/21 00:28 05/28/21 00:40 Temperature Pulse Rate 90 88 86 Respiratory Rate 22 H 18 18 Blood Pressure Pulse Oximetry 99 05/28/21 02:00 05/28/21 03:13 05/28/21 03:20 Temperature Pulse Rate 71 75 76 Respiratory Rate 18 18 Blood Pressure Pulse Oximetry 05/28/21 04:00 1
--- NOTE | 2021-05-28 14:23 | P.PNNP_ITS ---
Progress Note: A&P Assessment and Plan (1) GLENN (acute kidney injury): Code(s): N17.9 - Acute kidney failure, unspecified Status: Acute Assessment and Plan: * acute kidney injury * etiology is probably multifactorial, including diastolic dysfunction, and progression of disease * the patient may have severe pre renal component as well because of his nephrotic syndrome and low albumin. * His creatinine is stable at 2.9 * he is making large amounts of urine. * On dobutamine 2.5 (2) Stage 3b chronic kidney disease: Code(s): N18.32 - Chronic kidney disease, stage 3b Status: Chronic Assessment and Plan: * suspect baseline creatinine 1.9 - 2.3mg/dl * due to biopsy proven diabetic nephropathy along with HTN/vascular disease * suspect creatinine/kidney function will always fluctuate depending on his volume status and necessity of diuretics to achieve euvolemia (3) Hallucinations: Code(s): R44.3 - Hallucinations, unspecified Status: Acute Assessment and Plan: * etiology? * CT of head negative * Still hallucinating some but apparently better. (4) Acute combined systolic and diastolic CHF, NYHA class 1: Code(s): I50.41 - Acute combined systolic (congestive) and diastolic (congestive) heart failure Status: Acute Assessment and Plan: * well known issues with several recent hospitalizations for this problems * some issues with decompensation related to compliance * Cardiology following * On diuretics, albumin, dobutamine. (5) Anasarca: Code(s): R60.1 - Generalized edema Status: Acute Assessment and Plan: * due to heart failure but his nephrotic range proteinuria/syndrome is also playing a role , as he is spilling over 14 g of protein per day. * continue with diuresis * may have to accept a higher creatinine to achieve euvolemia (6) Hypertension: Code(s): I10 - Essential (primary) hypertension Status: Acute Assessment and Plan: * Blood pressure is generous. * He is on amlodipine which worsens edema and proteinuria. * Will increase lisinopril and eliminate amlodipine. * follow hemodynamics with diuresis (7) Diabetes: Code(s): E11.9 - Type 2 diabetes mellitus without complications Status: Chronic Assessment and Plan: * on Accu-Cheks and sliding-scale insulin Subjective Date/time seen: 05/28/21 14:23 Interval history: Limited Occitan. Resting comfortably lying flat in bed. nursing said he was hallucinating last night. Now he is just calm and comf ortable. Answers yes no questions. Denies shortness of breath or chest Exam Narrative: General: ill appearing male in NAD; on BiPAP Heart: normal S1 and S2; no rub Lungs: decreased breath sounds at bases Abdomen: soft, nontender, nondistended, positive bowel sounds Extremities: 2+ Symmetrical edema. Skin: no acute rash Objective Data Vital Signs Vital Signs: Vital Signs - 24 hr 05/27/21 16:00 05/27/21 18:00 05/27/21 19:38 Temperature 36.8 C 36.2 C L Pulse Rate 96 93 92 Respiratory Rate 24 H 28 H Blood Pressure 160/75 H 172/75 H Pulse Oximetry 93 94 05/27/21 20:00 05/27/21 20:12 05/27/21 20:15 Temperature Pulse Rate 93 92 92 Respiratory Rate 22 H 22 H Blood Pressure Pulse Oximetry 91 92
--- NOTE | 2021-05-28 14:23 | PM.PNNEP ---
Progress Note: A&P Assessment and Plan (1) GLENN (acute kidney injury): Code(s): N17.9 - Acute kidney failure, unspecified Status: Acute Assessment and Plan: acute kidney injury etiology is probably multifactorial, including diastolic dysfunction, and progression of disease the patient may have severe pre renal component as well because of his nephrotic syndrome and low albumin. His creatinine is stable at 2.9 he is making large amounts of urine. On dobutamine 2.5 (2) Stage 3b chronic kidney disease: Code(s): N18.32 - Chronic kidney disease, stage 3b Status: Chronic Assessment and Plan: suspect baseline creatinine 1.9 - 2.3mg/dl due to biopsy proven diabetic nephropathy along with HTN/vascular disease suspect creatinine/kidney function will always fluctuate depending on his volume status and necessity of diuretics to achieve euvolemia (3) Hallucinations: Code(s): R44.3 - Hallucinations, unspecified Status: Acute Assessment and Plan: etiology? CT of head negative Still hallucinating some but apparently better. (4) Acute combined systolic and diastolic CHF, NYHA class 1: Code(s): I50.41 - Acute combined systolic (congestive) and diastolic (congestive) heart failure Status: Acute Assessment and Plan: well known issues with several recent hospitalizations for this problems some issues with decompensation related to compliance Cardiology following On diuretics, albumin, dobutamine. (5) Anasarca: Code(s): R60.1 - Generalized edema Status: Acute Assessment and Plan: due to heart failure but his nephrotic range proteinuria/syndrome is also playing a role , as he is spilling over 14 g of protein per day. continue with diuresis may have to accept a higher creatinine to achieve euvolemia (6) Hypertension: Code(s): I10 - Essential (primary) hypertension Status: Acute Assessment and Plan: Blood pressure is generous. He is on amlodipine which worsens edema and proteinuria. Will increase lisinopril and eliminate amlodipine. follow hemodynamics with diuresis (7) Diabetes: Code(s): E11.9 - Type 2 diabetes mellitus without complications Status: Chronic Assessment and Plan: on Accu-Cheks and sliding-scale insulin Subjective Date/time seen: 05/28/21 14:23 Interval history: Limited Italian. Resting comfortably lying flat in bed. nursing said he was hallucinating last night. Now he is just calm and comfortable. Answers yes no questions. Denies shortness of breath or chest Exam Narrative: General: ill appearing male in NAD; on BiPAP Heart: normal S1 and S2; no rub Lungs: decreased breath sounds at bases Abdomen: soft, nontender, nondistended, positive bowel sounds Extremities: 2+ Symmetrical edema. Skin: no acute rash Objective Data Vital Signs Vital Signs: Vital Signs - 24 hr 05/27/21 16:00 05/27/21 18:00 05/27/21 19:38 Temperature 36.8 C 36.2 C L Pulse Rate 96 93 92 Respiratory Rate 24 H 28 H Blood Pressure 160/75 H 172/75 H Pulse Oximetry 93 94 05/27/21 20:00 05/27/21 20:12 05/27/21 20:15 Temperature Pulse Rate 93 92 92 Respiratory Rate 22 H 22 H Blood Pressure Pulse Oximetry 91 92 05/27/21 22:00 05/27/21 23:46 05/28/21 00:00 Temperature 37.1 C Pulse Rate 90 101 H 90 Respiratory Rate 22 H 22 H Blood Pressure 161/83 H Pulse Oximetry 99 99 05/28/21 00:28 05/28/21 00:40 05/28/21 02:00 Temperature Pulse Rate 88 86 71 Respiratory Rate 18 18 Blood Pressure Pulse Oximetry 05/28/21 03:13 05/28/21 03:20 05/28/21 04:00 Temperature 36.9 C Pulse Rate 75 76 76 Respiratory Rate 18 18 24 H Blood Pressure 146/75 H Pulse Oximetry 98 05/28/21 06:00 05/28/21 08:00 05/28/21 09:19 Temperature 36.6 C Pulse Rate 80 82 Respiratory Rate 18 Blood Pressure 170/74 H
[2021-05-28 15:38] LABS: Glucose Point of Care 77 mg/dl (65-105)
[2021-05-28] MEDS: QUEtiapine FUMARATE 25 MG TABLET 50 MG PO (20:21)
[2021-05-28 20:48] LABS: Glucose Point of Care 107 mg/dl (65-105)
[2021-05-29] VITALS (33 sets, daily range): BP systolic 147–180; BP diastolic 73–94; PULSE 62–97; RESP 15–31; TEMP 36.1–37.2; O2SAT 95–100
[2021-05-29] MEDS: ALBUTEROL SULFATE NEB 2.5 MG/0.5 ML INH INHALATION ×5 (00:13→21:13)
[2021-05-29] MEDS: IPRATROPIUM BR 0.02% INH SOLN 0.5 MG/2.5 ML VIAL INHALATION ×5 (00:13→21:13)
[2021-05-29] MEDS: CENTRAL LINE FLUSH 10 ML IV PUSH ×4 (04:55→21:35)
[2021-05-29] MEDS: CENTRAL LINE FLUSH 20 ML IV PUSH (04:55)
[2021-05-29 05:10] LABS: Hematocrit 29.1 % (42.0-52.0); Hemoglobin 8.5 g/dL (14.0-18.0); Mean Corpuscular HGB Conc 29.2 g/dl (32-36); Mean Platelet Volume 11.4 fl (7.4-10.4); Platelet Count Result 247 k/mm3 (150-375); Red Blood Count 3.27 M/mm3 (4.6-6.20); Red Cell Distribution Width 16.3 % (11.5-14.5)
[2021-05-29 05:24] LABS: Anion Gap 4 mmol/L (8-16); Blood Urea Nitrogen 56 mg/dL (9-20); Calcium 8.4 mg/dL (8.4-10.2); Carbon Dioxide 31 mmol/L (22-30); Chloride 108 mmol/L (98-107); Estimated CRCL calculation 34 ml/min; Estimated Glomerular Filt Rate 25; Glucose 92 mg/dL (65-110); Phosphorus 4.8 mg/dL (2.5-4.5); Potassium 4.4 mmol/L (3.4-5.0); Sodium 143 mmol/L (137-145)
[2021-05-29 08:28] LABS: Glucose Point of Care 85 mg/dl (65-105)
[2021-05-29] MEDS: GABAPENTIN 300 MG CAPSULE PO ×3 (08:39→16:22)
[2021-05-29] MEDS: hydrALAZINE 10 MG TABLET PO (08:39)
[2021-05-29] MEDS: METOPROLOL TARTRATE 50 MG TAB PO ×2 (08:39→21:36)
[2021-05-29] MEDS: ATORVASTATIN 40 MG TABLET PO (08:39)
[2021-05-29] MEDS: BUMETANIDE INJ 2.5 MG/10 ML VIAL 2 MG IV PUSH ×2 (08:41→16:22)
[2021-05-29] MEDS: DOBUTamine 250 MG/D5W 250 ML 250 MG/250 ML BAG 15.72 MG IV CONT (08:47)
--- NOTE | 2021-05-29 09:49 | PM.PNCARD ---
Progress Note: A&P Assessment and Plan (1) Acute combined systolic and diastolic CHF, NYHA class 1: Code(s): I50.41 - Acute combined systolic (congestive) and diastolic (congestive) heart failure Status: Acute Assessment and Plan: Patient presents with acute on chronic systolic and diastolic heart failure, anasarca, pleural effusions. More alert today and off BiPAP but not diuresing any further. Continue IV Bumex. Still has significant anasarca. Follow renal function closely with a daily BMP - BUN/Cr continue to rise. Nephrotic range proteinuria and hypoalbuminemia are certainly contributing factors to swelling as well. Continues to diurese better with ionotropic support dobutamine 2.5 mcg/kg/minute. . Continue telemetry and monitor closely for worsening arrhythmia after starting inotrope (2) Nonsustained ventricular tachycardia: Code(s): I47.2 - Ventricular tachycardia Status: Acute Assessment and Plan: No nonsustained V-tach recently. Continue beta-malik Follow electrolytes (3) Ischemic cardiomyopathy: Code(s): I25.5 - Ischemic cardiomyopathy Status: Acute Assessment and Plan: EF 40-45%. Lexiscan suggests an old large infarct. No angina. Continue therapy with lisinopril, metoprolol The aspirin has likely been held due to anemia which has improved. Daily H&H Consider adding ASA prior to d/c if h/h are stable. On statin. (4) Chronic kidney disease, stage 3b: Code(s): N18.32 - Chronic kidney disease, stage 3b Status: Acute Assessment and Plan: Stabilizing Has nephrotic range proteinuria which is contributing to the patient's anasarca. (5) Hypertension: Code(s): I10 - Essential (primary) hypertension Status: Acute Assessment and Plan: Elevated today. On lisinopril (6) Encephalopathy: Code(s): G93.40 - Encephalopathy, unspecified Status: Acute Assessment and Plan: Has been hallucinating and is confused. Oxygenating well. Subjective Date/time seen: 05/29/21 09:49 Interval history: Follow-up for acute on chronic CHF, HTN, nonsustained ventricular tachycardia, presumed CAD. Encephalopathic. 05/21/2021: Started on Bumex 1 mg IV push b.i.d. for anasarca 05/22/2021: He is confused today and unable to answer my questions. Tachypneic but otherwise appears comfortable. Receiving nebulizer treatment. Continue IV Bumex 05/23/2021: Drowsy and confused, remains on BiPAP with good oxygenation.. I's and O's 1300/2450. BUN and creatinine have increased. Telemetry shows NSR with PVCs. Reduce Bumex to 1 mg IV push daily due to worsening renal function. Date of service 05/24/2021: More alert today, on nasal cannula at 2 L O2 in off his BiPAP. Complaining of shoulder stiffness and bilateral for forearm pain. NG tube placed and now getting NG feedings. Has a Ramirez in and I's and O's yesterday were 1000/750. Looks like I's and O's will be quite positive today as well. Getting some IV albumin x1 to see if that helps with urine output. Date of service 05/25/2021: More awake alert today but still not making much urine. No chest pain. Diffuse edema. Positive short of breath Date of service 05/26/2021: Feels better today. Less short of breath. He is diuresing today. No chest pain. Date of service 05/27/2021: Still diffusely swollen. Making urine. He is short of breath but no chest pain Date of service 05/28/2021: Still swollen but continues to make good urine. No chest pain. Resting comfortably in bed at this point Date of service 05/29/2021: Still making a good amount of urine. No chest pain. Denies shortness of breath today Review of Systems Review of Systems: ROS unobtainable: Yes unobtainable due to mental status Constitutional: Constitutional: Reports fatigue and Re
--- NOTE | 2021-05-29 11:08 | P.PNNP_ITS ---
Progress Note: A&P Assessment and Plan (1) GLENN (acute kidney injury): Code(s): N17.9 - Acute kidney failure, unspecified Status: Acute Assessment and Plan: * acute kidney injury * etiology is probably multifactorial, including diastolic dysfunction, and progression of disease * the patient may have severe pre renal component as well because of his nephrotic syndrome and low albumin. * His creatinine is stable at 2.9 * he is making large amounts of urine. * On dobutamine 2.5 still. * Continue dobutamine and diuretics. (2) Stage 3b chronic kidney disease: Code(s): N18.32 - Chronic kidney disease, stage 3b Status: Chronic Assessment and Plan: * suspect baseline creatinine 1.9 - 2.3mg/dl * due to biopsy proven diabetic nephropathy along with HTN/vascular disease * suspect creatinine/kidney function will always fluctuate depending on his volume status and necessity of diuretics to achieve euvolemia (3) Hallucinations: Code(s): R44.3 - Hallucinations, unspecified Status: Acute Assessment and Plan: * etiology? * CT of head negative Improved (4) Acute combined systolic and diastolic CHF, NYHA class 1: Code(s): I50.41 - Acute combined systolic (congestive) and diastolic (congestive) heart failure Status: Acute Assessment and Plan: * well known issues with several recent hospitalizations for this problems * some issues with decompensation related to compliance * Cardiology following * On diuretics, dobutamine. (5) Anasarca: Code(s): R60.1 - Generalized edema Status: Acute Assessment and Plan: * due to heart failure but his nephrotic range proteinuria/syndrome is also playing a role , as he is spilling over 14 g of protein per day. * continue with diuresis * may have to accept a higher creatinine to achieve euvolemia (6) Hypertension: Code(s): I10 - Essential (primary) hypertension Status: Acute Assessment and Plan: * Blood pressure is higher. * He is on lisinopril and hydralazine. Will increase the latter (7) Diabetes: Code(s): E11.9 - Type 2 diabetes mellitus without complications Status: Chronic Assessment and Plan: * on Accu-Cheks and sliding-scale insulin Subjective Date/time seen: 05/29/21 11:08 Interval history: Limited Malawian. Resting comfortably lying flat in bed. He got up in a chair in a breakfast this morning. Much more animated and interactive. He denies shortness of breath or pain anywhere Exam Narrative: General: ill appearing male in NAD; on BiPAP Heart: normal S1 and S2; no rub Lungs: decreased breath sounds at bases Abdomen: soft, nontender, nondistended, positive bowel sounds Extremities: 2+ Symmetrical edema. Skin: no acute rash Objective Data Vital Signs Vital Signs: Vital Signs - 24 hr 05/28/21 11:37 05/28/21 12:00 05/28/21 13:16 Temperature 36.8 C Pulse Rate 72 77 79 Respiratory Rate 18 18 Blood Pressure 159/72 H Pulse Oximetry 100 93 05/28/21 14:00 05/28/21 14:50 05/28/21 15:39 Temperature 37.0 C Pulse Rate 84 84 88 Respiratory Rate 18 18 Blood Pressure 168/75 H Pulse Oximetry 98 05/28/21 16:00 05/28/21 18:00 05/28/21 18:24 Temperature
--- NOTE | 2021-05-29 11:08 | PM.PNNEP ---
Progress Note: A&P Assessment and Plan (1) GLENN (acute kidney injury): Code(s): N17.9 - Acute kidney failure, unspecified Status: Acute Assessment and Plan: acute kidney injury etiology is probably multifactorial, including diastolic dysfunction, and progression of disease the patient may have severe pre renal component as well because of his nephrotic syndrome and low albumin. His creatinine is stable at 2.9 he is making large amounts of urine. On dobutamine 2.5 still. Continue dobutamine and diuretics. (2) Stage 3b chronic kidney disease: Code(s): N18.32 - Chronic kidney disease, stage 3b Status: Chronic Assessment and Plan: suspect baseline creatinine 1.9 - 2.3mg/dl due to biopsy proven diabetic nephropathy along with HTN/vascular disease suspect creatinine/kidney function will always fluctuate depending on his volume status and necessity of diuretics to achieve euvolemia (3) Hallucinations: Code(s): R44.3 - Hallucinations, unspecified Status: Acute Assessment and Plan: etiology? CT of head negative Improved (4) Acute combined systolic and diastolic CHF, NYHA class 1: Code(s): I50.41 - Acute combined systolic (congestive) and diastolic (congestive) heart failure Status: Acute Assessment and Plan: well known issues with several recent hospitalizations for this problems some issues with decompensation related to compliance Cardiology following On diuretics, dobutamine. (5) Anasarca: Code(s): R60.1 - Generalized edema Status: Acute Assessment and Plan: due to heart failure but his nephrotic range proteinuria/syndrome is also playing a role , as he is spilling over 14 g of protein per day. continue with diuresis may have to accept a higher creatinine to achieve euvolemia (6) Hypertension: Code(s): I10 - Essential (primary) hypertension Status: Acute Assessment and Plan: Blood pressure is higher. He is on lisinopril and hydralazine. Will increase the latter (7) Diabetes: Code(s): E11.9 - Type 2 diabetes mellitus without complications Status: Chronic Assessment and Plan: on Accu-Cheks and sliding-scale insulin Subjective Date/time seen: 05/29/21 11:08 Interval history: Limited Norwegian. Resting comfortably lying flat in bed. He got up in a chair in a breakfast this morning. Much more animated and interactive. He denies shortness of breath or pain anywhere Exam Narrative: General: ill appearing male in NAD; on BiPAP Heart: normal S1 and S2; no rub Lungs: decreased breath sounds at bases Abdomen: soft, nontender, nondistended, positive bowel sounds Extremities: 2+ Symmetrical edema. Skin: no acute rash Objective Data Vital Signs Vital Signs: Vital Signs - 24 hr 05/28/21 11:37 05/28/21 12:00 05/28/21 13:16 Temperature 36.8 C Pulse Rate 72 77 79 Respiratory Rate 18 18 Blood Pressure 159/72 H Pulse Oximetry 100 93 05/28/21 14:00 05/28/21 14:50 05/28/21 15:39 Temperature 37.0 C Pulse Rate 84 84 88 Respiratory Rate 18 18 Blood Pressure 168/75 H Pulse Oximetry 98 05/28/21 16:00 05/28/21 18:00 05/28/21 18:24 Temperature Pulse Rate 88 82 86 Respiratory Rate Blood Pressure Pulse Oximetry 93 05/28/21 19:38 05/28/21 20:00 05/28/21 20:20 Temperature 36.1 C L Pulse Rate 90 89 90 Respiratory Rate 22 H 22 H Blood Pressure 160/86 H Pulse Oximetry 96 96 05/28/21 21:03 05/28/21 21:11 05/28/21 22:00 Temperature Pulse Rate 80 82 75 Respiratory Rate 18 18 Blood Pressure Pulse Oximetry 96 05/29/21 00:00 05/29/21 00:13 05/29/21 00:21 Temperature 36.1 C L Pulse Rate 81 84 86 Respiratory Rate 22 H 18 18 Blood Pressure 157/83 H Pulse Oximetry 100 05/29/21 02:00 05/29/21 02:50 05/29/21 03:35 Temperature Pulse Rate 74 62 73 Respiratory Rate
[2021-05-29 11:57] LABS: Glucose Point of Care 102 mg/dl (65-105)
--- NOTE | 2021-05-29 12:37 | PM.IMPN ---
Progress Note: A&P Assessment and Plan (1) Combined congestive systolic and diastolic heart failure: Code(s): I50.40 - Unspecified combined systolic (congestive) and diastolic (congestive) heart failure Status: Acute Assessment and Plan: Pt is slowly improving Aggressive diuresis for anasarca Cardiology consult Nephrology consult Pt is on dobutamine watch ins and outs and bumex IV BID Continue to watch kidneys (2) Infiltrate of lung present on chest x-ray: Code(s): R91.8 - Other nonspecific abnormal finding of lung field Status: Acute Assessment and Plan: Patient with no fever no leukocytosis no sputum production BC is negative can stop IV abx (3) Acute respiratory failure with hypoxia: Code(s): J96.01 - Acute respiratory failure with hypoxia Status: Acute Assessment and Plan: Oxygen by nasal cannula as needed (4) Insulin dependent diabetes mellitus: Status: Chronic Assessment and Plan: Holding metformin Continue insulin Carb consistent diet Sugars are 70s (5) CAD (coronary artery disease): Code(s): I25.10 - Atherosclerotic heart disease of [place] coronary artery without angina pectoris Status: Acute Assessment and Plan: Continue home meds No chest pain Supportive care (6) Below-knee amputation of right lower extremity: Code(s): S88.111A - Complete traumatic amputation at level between knee and ankle, right lower leg, initial encounter Status: Acute Assessment and Plan: Continue to watch legs (7) Diabetic ulcer of left foot: Code(s): E11.621 - Type 2 diabetes mellitus with foot ulcer; L97.529 - Non-pressure chronic ulcer of other part of left foot with unspecified severity Status: Acute Assessment and Plan: Wound care consult Local care Looks worse cover maybe infected, cellulitic appearance, BC are negative. on IV rocephin, can stop now. (8) Stage 3b chronic kidney disease: Code(s): N18.32 - Chronic kidney disease, stage 3b Status: Chronic Assessment and Plan: Creat is 2.9 baseline is around 2, continue to watch kidney function carefully and UO Secondary to diabetic nephropathy along with HTN/vascular disease and possible nephrotic syndrome Subjective Date/time seen: 05/29/21 12:37 Interval history: 45-year-old male with past medical history significant for type 2 diabetes mellitus insulin dependent, congestive heart failure, hypoxic respiratory failure, right BKA, left diabetic foot, chronic nonhealing ulcer of the right foot, hypertension. Pt looks better less edematous. Review of Systems Review of Systems: All systems reviewed & are unremarkable except as noted in HPI and below Exam Narrative: Patient looks more alert less edematous HEENT: eyes are clear and none icteric, jugular line in situ LUNGS: normal respiratory effort ABDO: slightly distended Lower extremities: right lower extremity BKA, left lower extremity clean not red today Neuro: no focal deficits unsure of his cognition Objective Data Vital Signs Vital Signs: Vital Signs - 24 hr 05/28/21 13:16 05/28/21 14:00 05/28/21 14:50 Temperature Pulse Rate 79 84 84 Respiratory Rate 18 18 Blood Pressure Pulse Oximetry 05/28/21 15:39 05/28/21 16:00 05/28/21 18:00 Temperature 37.0 C Pulse Rate 88 88 82 Respiratory Rate 18 Blood Pressure 168/75 H Pulse Oximetry 98 93 05/28/21 18:24 05/28/21 19:38 05/28/21 20:00 Temperature 36.1 C L Pulse Rate 86 90 89 Respiratory Rate 22 H 22 H Blood Pressure 160/86 H Pulse Oximetry 96 96 05/28/21 20:20 05/28/21 21:03 05/28/21 21:11 Temperature Pulse Rate 90 80 82 Respiratory Rate 18 18 Blood Pressure Pulse Oximetry 96 05/28/21 22:00 05/29/21 00:00 05/29/21 00:13 Temperature 36.1 C L Pulse Rate 75 81 84 Respiratory Rate 22 H 18 Blood Pressure 157/83 H Pulse Oximetry 100
[2021-05-29] MEDS: hydrALAZINE HCL 25 MG TABLET PO ×2 (12:44→16:22)
[2021-05-29 15:57] LABS: Glucose Point of Care 121 mg/dl (65-105)
[2021-05-29] MEDS: QUEtiapine FUMARATE 25 MG TABLET 50 MG PO (21:37)
[2021-05-29 21:55] LABS: Glucose Point of Care 151 mg/dl (65-105)
[2021-05-30] VITALS (30 sets, daily range): BP systolic 137–176; BP diastolic 64–75; PULSE 66–98; RESP 18–29; TEMP 36.1–36.7; O2SAT 80–100
[2021-05-30] MEDS: ALBUTEROL SULFATE NEB 2.5 MG/0.5 ML INH INHALATION ×6 (00:45→21:00)
[2021-05-30] MEDS: IPRATROPIUM BR 0.02% INH SOLN 0.5 MG/2.5 ML VIAL INHALATION ×6 (00:45→21:00)
[2021-05-30] MEDS: DOBUTamine 250 MG/D5W 250 ML 250 MG/250 ML BAG 15.72 MG IV CONT ×2 (02:15→17:50)
[2021-05-30] MEDS: hydrALAZINE HCL 20 MG/ML VIAL 10 MG IV PUSH (06:05)
[2021-05-30] MEDS: CENTRAL LINE FLUSH 10 ML IV PUSH ×4 (06:10→21:05)
[2021-05-30] MEDS: CENTRAL LINE FLUSH 20 ML IV PUSH (06:23)
[2021-05-30 06:36] LABS: Hemoglobin 8.7 g/dL (14.0-18.0); Mean Corpuscular Volume 89.8 fl (80-100); Mean Platelet Volume 11.5 fl (7.4-10.4); Platelet Count Result 246 k/mm3 (150-375); Red Blood Count 3.34 M/mm3 (4.6-6.20); Red Cell Distribution Width 16.1 % (11.5-14.5); White Blood Count 7.2 K/mm3 (4.5-10.0)
[2021-05-30 06:50] LABS: Albumin Level 2.8 g/dL (3.5-5.1); Anion Gap 2 mmol/L (8-16); Blood Urea Nitrogen 48 mg/dL (9-20); Calcium 8.3 mg/dL (8.4-10.2); Carbon Dioxide 33 mmol/L (22-30); Chloride 107 mmol/L (98-107); Estimated CRCL calculation 35 ml/min; Estimated Glomerular Filt Rate 28; Glucose 103 mg/dL (65-110); Phosphorus 3.8 mg/dL (2.5-4.5); Potassium 4.2 mmol/L (3.4-5.0); Sodium 142 mmol/L (137-145)
[2021-05-30 08:53] LABS: Glucose Point of Care 92 mg/dl (65-105)
[2021-05-30] MEDS: hydrALAZINE HCL 25 MG TABLET PO ×3 (09:07→17:49)
[2021-05-30] MEDS: ATORVASTATIN 40 MG TABLET PO (09:08)
[2021-05-30] MEDS: GABAPENTIN 300 MG CAPSULE PO ×3 (09:08→17:49)
[2021-05-30] MEDS: BUMETANIDE INJ 2.5 MG/10 ML VIAL 2 MG IV PUSH ×2 (09:08→17:54)
[2021-05-30] MEDS: METOPROLOL TARTRATE 50 MG TAB 100 MG PO (09:09)
--- NOTE | 2021-05-30 11:56 | P.PNNP_ITS ---
Progress Note: A&P Assessment and Plan (1) GLENN (acute kidney injury): Code(s): N17.9 - Acute kidney failure, unspecified Status: Acute Assessment and Plan: * acute kidney injury * etiology is probably multifactorial, including diastolic dysfunction, and progression of disease * the patient may have severe pre renal component as well because of his nephrotic syndrome and low albumin. * His creatinine has dropped to 2.5. * he is making large amounts of urine. * On dobutamine 2.5 still. * Continue dobutamine and diuretics. (2) Stage 3b chronic kidney disease: Code(s): N18.32 - Chronic kidney disease, stage 3b Status: Chronic Assessment and Plan: * suspect baseline creatinine 1.9 - 2.3mg/dl * due to biopsy proven diabetic nephropathy along with HTN/vascular disease * suspect creatinine/kidney function will always fluctuate depending on his volume status and necessity of diuretics to achieve euvolemia (3) Hallucinations: Code(s): R44.3 - Hallucinations, unspecified Status: Acute Assessment and Plan: * etiology? * CT of head negative Improved (4) Acute combined systolic and diastolic CHF, NYHA class 1: Code(s): I50.41 - Acute combined systolic (congestive) and diastolic (congestive) heart failure Status: Acute Assessment and Plan: * well known issues with several recent hospitalizations for this problems * some issues with decompensation related to compliance * Cardiology following * On diuretics, dobutamine. (5) Anasarca: Code(s): R60.1 - Generalized edema Status: Acute Assessment and Plan: * due to heart failure but his nephrotic range proteinuria/syndrome is also playing a role , as he is spilling over 14 g of protein per day. * Albumin supplementation completed to get albumin level up. * Now on dobutamine and diuretics * may have to accept a higher creatinine to achieve euvolemia, however creatinine has improved with the dobutamine. (6) Hypertension: Code(s): I10 - Essential (primary) hypertension Status: Acute Assessment and Plan: * Blood pressure is higher. * He is on lisinopril and hydralazine. * Just increased hydralazine yesterday. (7) Diabetes: Code(s): E11.9 - Type 2 diabetes mellitus without complications Status: Chronic Assessment and Plan: * on Accu-Cheks and sliding-scale insulin Subjective Date/time seen: 05/30/21 11:56 Interval history: Limited [place]alander. Feels okay. Denies pain or shortness of breath Exam Narrative: General: ill appearing male in NAD; on BiPAP Heart: normal S1 and S2; no rub or gallop Lungs: decreased breath sounds at bases Abdomen: soft, nontender, nondistended, positive bowel sounds Extremities: 2+ Symmetrical edema. Skin: no acute rash or subQ nodules Objective Data Vital Signs Vital Signs: Vital Signs - 24 hr 05/29/21 12:00 05/29/21 12:46 05/29/21 14:00 Temperature 36.8 C Pulse Rate 78 76 75 Respiratory Rate 20 Blood Pressure 166/79 H Pulse Oximetry 95 96 05/29/21 16:00 05/29/21 16:13 05/29/21 16:20 Temperature Pulse Rate 78 79 77 Respiratory Rate 18 18 Blood Pressure Pulse Oximetry 95 05/29/21 16:22 05/29/21 18:00 05/29/21 19:01 Temper
--- NOTE | 2021-05-30 11:56 | PM.PNNEP ---
Progress Note: A&P Assessment and Plan (1) GLENN (acute kidney injury): Code(s): N17.9 - Acute kidney failure, unspecified Status: Acute Assessment and Plan: acute kidney injury etiology is probably multifactorial, including diastolic dysfunction, and progression of disease the patient may have severe pre renal component as well because of his nephrotic syndrome and low albumin. His creatinine has dropped to 2.5. he is making large amounts of urine. On dobutamine 2.5 still. Continue dobutamine and diuretics. (2) Stage 3b chronic kidney disease: Code(s): N18.32 - Chronic kidney disease, stage 3b Status: Chronic Assessment and Plan: suspect baseline creatinine 1.9 - 2.3mg/dl due to biopsy proven diabetic nephropathy along with HTN/vascular disease suspect creatinine/kidney function will always fluctuate depending on his volume status and necessity of diuretics to achieve euvolemia (3) Hallucinations: Code(s): R44.3 - Hallucinations, unspecified Status: Acute Assessment and Plan: etiology? CT of head negative Improved (4) Acute combined systolic and diastolic CHF, NYHA class 1: Code(s): I50.41 - Acute combined systolic (congestive) and diastolic (congestive) heart failure Status: Acute Assessment and Plan: well known issues with several recent hospitalizations for this problems some issues with decompensation related to compliance Cardiology following On diuretics, dobutamine. (5) Anasarca: Code(s): R60.1 - Generalized edema Status: Acute Assessment and Plan: due to heart failure but his nephrotic range proteinuria/syndrome is also playing a role , as he is spilling over 14 g of protein per day. Albumin supplementation completed to get albumin level up. Now on dobutamine and diuretics may have to accept a higher creatinine to achieve euvolemia, however creatinine has improved with the dobutamine. (6) Hypertension: Code(s): I10 - Essential (primary) hypertension Status: Acute Assessment and Plan: Blood pressure is higher. He is on lisinopril and hydralazine. Just increased hydralazine yesterday. (7) Diabetes: Code(s): E11.9 - Type 2 diabetes mellitus without complications Status: Chronic Assessment and Plan: on Accu-Cheks and sliding-scale insulin Subjective Date/time seen: 05/30/21 11:56 Interval history: Limited Kiswahili. Feels okay. Denies pain or shortness of breath Exam Narrative: General: ill appearing male in NAD; on BiPAP Heart: normal S1 and S2; no rub or gallop Lungs: decreased breath sounds at bases Abdomen: soft, nontender, nondistended, positive bowel sounds Extremities: 2+ Symmetrical edema. Skin: no acute rash or subQ nodules Objective Data Vital Signs Vital Signs: Vital Signs - 24 hr 05/29/21 12:00 05/29/21 12:46 05/29/21 14:00 Temperature 36.8 C Pulse Rate 78 76 75 Respiratory Rate 20 Blood Pressure 166/79 H Pulse Oximetry 95 96 05/29/21 16:00 05/29/21 16:13 05/29/21 16:20 Temperature Pulse Rate 78 79 77 Respiratory Rate 18 18 Blood Pressure Pulse Oximetry 95 05/29/21 16:22 05/29/21 18:00 05/29/21 19:01 Temperature 37.2 C 36.4 C Pulse Rate 78 95 94 Respiratory Rate 20 20 Blood Pressure 175/73 H 165/79 H Pulse Oximetry 96 98 05/29/21 20:00 05/29/21 21:16 05/29/21 21:20 Temperature Pulse Rate 89 91 91 Respiratory Rate 20 18 Blood Pressure Pulse Oximetry 98 97 05/29/21 21:26 05/29/21 21:36 05/29/21 22:00 Temperature Pulse Rate 88 96 97 Respiratory Rate 18 Blood Pressure Pulse Oximetry 05/29/21 23:23 05/29/21 23:45 05/30/21 00:00 Temperature 36.6 C Pulse Rate 74 84 81 Respiratory Rate 31 H 20 27 H Blood Pressure 168/75 H Pulse Oximetry 100 97 97 05/30/21 00:45 05/30/21 00:51 05/30/21 00:52 Temperature Pulse Rat
--- NOTE | 2021-05-30 12:21 | PM.CNCAR ---
Assessment and Plan Assessment and plan (1) Acute combined systolic and diastolic CHF, NYHA class 1: Code(s): I50.41 - Acute combined systolic (congestive) and diastolic (congestive) heart failure Status: Acute Assessment and Plan: Patient presents with acute on chronic systolic and diastolic heart failure, anasarca, pleural effusions. Off BiPAP Continue IV Bumex. Still has significant anasarca, but is improving with significant diuresis now nearly 13 L negative since admission. Follow renal function closely with a daily BMP - BUN/Cr continue to rise. Nephrotic range proteinuria and hypoalbuminemia are certainly contributing factors to swelling as well. Continues to diurese better with ionotropic support dobutamine 2.5 mcg/kg/minute. Continue telemetry and monitor closely for worsening arrhythmia after starting inotrope. Stable thus far. However, patient remains quite ill complicated with poor prognosis overall. Compliance extremely important. (2) Nonsustained ventricular tachycardia: Code(s): I47.2 - Ventricular tachycardia Status: Acute Assessment and Plan: No nonsustained V-tach recently. Continue beta-malik. I would not increase metoprolol at this time unless absolutely necessary while on dobutamine. For example, if more frequent or longer runs of nonsustained VT benefit may outweigh risk at that point. I will reduce back down to 50 mg twice daily for now. Follow electrolytes (3) Ischemic cardiomyopathy: Code(s): I25.5 - Ischemic cardiomyopathy Status: Acute Assessment and Plan: EF 40-45%. Lexiscan suggests an old large infarct. No angina. Continue therapy with lisinopril, metoprolol The aspirin has likely been held due to anemia which has improved. Daily H&H Add ASA prior to d/c On statin. (4) Chronic kidney disease, stage 3b: Code(s): N18.32 - Chronic kidney disease, stage 3b Status: Acute Assessment and Plan: Slowly improving, creatinine 2.5 today, BUN 48. Has nephrotic range proteinuria which is contributing to the patient's anasarca. Appreciate Nephrology involvement and their recommendations. (5) Hypertension: Code(s): I10 - Essential (primary) hypertension Status: Acute Assessment and Plan: More elevated. Resume isosorbide mononitrate. May increase hydralazine as necessary. Lisinopril remains on hold. (6) Encephalopathy: Code(s): G93.40 - Encephalopathy, unspecified Status: Acute Assessment and Plan: Improving. Oxygenating well. History of Present Illness History of Present Illness Consult date/time: Date of service: 05/30/21 12:21 Follow-up for CHF Patient states he feels about the same. Denies significant shortness of breath but not really feeling any better. Denies chest pain or palpitations. No new issues overnight. Blood pressure running high 170-180 systolic. Remains on dobutamine and IV Bumex. Reason For Visit: CHF/acute on chronic renal failure/encephalopathy Review of Systems Review of Systems: All systems reviewed & are unremarkable except as noted in HPI and below ROS unobtainable: Yes unobtainable due to mental status Constitutional: Constitutional: Reports as per HPI, Reports fatigue and Reports weakness Eyes: Eyes: Reports as per HPI and Reports no additional eye complaints ENT: Reports as per HPI and Denies epistaxis Cardiovascular: Cardiovascular: Reports as per HPI, Denies chest pain, Reports pedal edema, Reports leg edema, Reports dyspnea and Reports dyspnea on exertion Respiratory: Respiratory: Reports as per HPI, Reports no additional respiratory complaints, Reports chest congestion, Reports cough, Reports dyspnea and Reports dyspnea on exertion Gastrointestinal: Gastrointestinal: Reports as per HPI, Denies abdominal pain and Re
[2021-05-30 13:04] LABS: Glucose Point of Care 139 mg/dl (65-105)
[2021-05-30] MEDS: ISOSORBIDE MONONITRATE 60 MG TAB.ER.24H PO (13:33)
--- NOTE | 2021-05-30 15:11 | PM.IMPN ---
Progress Note: A&P Assessment and Plan (1) Combined congestive systolic and diastolic heart failure: Code(s): I50.40 - Unspecified combined systolic (congestive) and diastolic (congestive) heart failure Status: Acute Assessment and Plan: Pt is slowly improving Aggressive diuresis with IV Bumex. Strict intake output record and daily weight. Continue to monitor renal parameters and electrolytes. Still with significant anasarca. He had a net negative fluid balance of about 13 L since admission. He had a net negative fluid balance of 1.7 L over the last 24 hour. Cardiology consult recommendations appreciated. Nephrology consult recommendations appreciated. Pt is on dobutamine which will be continued. Continue to monitor on telemetry for any arrhythmias while he is on dobutamine drip. (2) Infiltrate of lung present on chest x-ray: Code(s): R91.8 - Other nonspecific abnormal finding of lung field Status: Acute Assessment and Plan: Patient with no fever no leukocytosis no sputum production BC is negative Antibiotics have been stopped. (3) Acute respiratory failure with hypoxia: Code(s): J96.01 - Acute respiratory failure with hypoxia Status: Acute Assessment and Plan: Oxygen by nasal cannula as needed (4) Insulin dependent diabetes mellitus: Status: Chronic Assessment and Plan: Holding metformin Continue insulin sliding scale. Carb consistent diet Sugars are 70s (5) CAD (coronary artery disease): Code(s): I25.10 - Atherosclerotic heart disease of platinum coronary artery without angina pectoris Status: Acute Assessment and Plan: Continue home meds No chest pain Supportive care Stress test showed ejection fraction of 40-45% with evidence of old large infarct. No angina. Continue metoprolol and aspirin. Continue statin. (6) Below-knee amputation of right lower extremity: Code(s): S88.111A - Complete traumatic amputation at level between knee and ankle, right lower leg, initial encounter Status: Acute Assessment and Plan: Continue to monitor (7) Diabetic ulcer of left foot: Code(s): E11.621 - Type 2 diabetes mellitus with foot ulcer; L97.529 - Non-pressure chronic ulcer of other part of left foot with unspecified severity Status: Acute Assessment and Plan: Wound care nurse following. Local care Looks worse cover maybe infected, BC are negative. Does not seems to be infected. Initially was on IV Rocephin which has been stopped now. (8) Stage 3b chronic kidney disease: Code(s): N18.32 - Chronic kidney disease, stage 3b Status: Chronic Assessment and Plan: His baseline creatinine is around 2 with creatinine ranging from 1.9-2.3. Secondary to diabetic nephropathy along with HTN/vascular disease and possible nephrotic syndrome. He did have biopsy-proven diabetic nephropathy. Nephrology service is following and their recommendations appreciated. Acute kidney injury on chronic kidney disease was likely multifactorial including diastolic/systolic dysfunction and progression of disease. Creatinine has now improved to 2.5. He is making good amount of urine. Continue dobutamine and diuretics. (9) Hypertension: Code(s): I10 - Essential (primary) hypertension Status: Acute Assessment and Plan: Lisinopril remains on hold. Isosorbide mononitrate has been resumed. Continue metoprolol at current dose of 50 mg twice a day and do not increase the dose. May increase the dose of hydralazine as indicated. Subjective Date/time seen: 05/30/21 15:11 He was on 2 L of oxygen with his oxygen saturation in high 90s. He was weaned down to room air but his oxygen saturation dip down to 88% and was started back on 2 L of oxygen. Is complaining of mild cough and still having shortness of breath whenever he exerts himself. He had used BiPAP overnight.
[2021-05-30 18:56] LABS: Glucose Point of Care 128 mg/dl (65-105)
[2021-05-30 20:02] LABS: Glucose Point of Care 125 mg/dl (65-105)
[2021-05-30] MEDS: QUEtiapine FUMARATE 25 MG TABLET 50 MG PO (20:53)
[2021-05-30] MEDS: METOPROLOL TARTRATE 50 MG TAB PO (20:54)
[2021-05-30] MEDS: ACETAMINOPHEN 500 MG TABLET PO (21:52)
[2021-05-31] VITALS (29 sets, daily range): BP systolic 122–167; BP diastolic 43–92; PULSE 74–94; RESP 16–24; TEMP 35.8–36.7; O2SAT 58–100
[2021-05-31] MEDS: ALBUTEROL SULFATE NEB 2.5 MG/0.5 ML INH INHALATION ×6 (00:07→20:33)
[2021-05-31] MEDS: IPRATROPIUM BR 0.02% INH SOLN 0.5 MG/2.5 ML VIAL INHALATION ×6 (00:07→20:34)
[2021-05-31] MEDS: CENTRAL LINE FLUSH 10 ML IV PUSH ×3 (06:07→17:32)
[2021-05-31] MEDS: CENTRAL LINE FLUSH 20 ML IV PUSH (06:07)
[2021-05-31 06:49] LABS: Anion Gap 2 mmol/L (8-16); Blood Urea Nitrogen 46 mg/dL (9-20); Calcium 7.9 mg/dL (8.4-10.2); Carbon Dioxide 33 mmol/L (22-30); Chloride 106 mmol/L (98-107); Estimated CRCL calculation 37 ml/min; Estimated Glomerular Filt Rate 29; Glucose 113 mg/dL (65-110); Magnesium 1.6 mg/dL (1.6-2.3); Potassium 4.1 mmol/L (3.4-5.0); Sodium 141 mmol/L (137-145)
[2021-05-31] MEDS: hydrALAZINE HCL 25 MG TABLET PO ×2 (08:52→12:16)
[2021-05-31] MEDS: ATORVASTATIN 40 MG TABLET PO (08:52)
[2021-05-31] MEDS: GABAPENTIN 300 MG CAPSULE PO ×3 (08:53→17:31)
[2021-05-31] MEDS: ISOSORBIDE MONONITRATE 60 MG TAB.ER.24H PO (08:53)
[2021-05-31] MEDS: METOPROLOL TARTRATE 50 MG TAB PO ×2 (08:53→21:46)
[2021-05-31] MEDS: DOBUTamine 250 MG/D5W 250 ML 250 MG/250 ML BAG 15.72 MG IV CONT (10:00)
[2021-05-31] MEDS: MAGNESIUM SULF 2 GM/WATER 50ML 2 GM/50 ML BAG IVPB (11:32)
[2021-05-31] MEDS: BUMETANIDE INJ 2.5 MG/10 ML VIAL 2 MG IV PUSH ×2 (11:32→17:31)
[2021-05-31 11:36] LABS: Glucose Point of Care 143 mg/dl (65-105)
--- NOTE | 2021-05-31 12:43 | P.PNNP_ITS ---
Progress Note: A&P Assessment and Plan (1) GLENN (acute kidney injury): Code(s): N17.9 - Acute kidney failure, unspecified Status: Acute Assessment and Plan: * acute kidney injury * etiology is probably multifactorial, including diastolic dysfunction, and progression of disease * the patient may have severe pre renal component as well because of his nephrotic syndrome and low albumin. * His creatinine has dropped to 2.5. * he is making large amounts of urine. * On dobutamine 2.5 still. * Urine output still almost 3L per day. * Continue dobutamine and diuretics. (2) Stage 3b chronic kidney disease: Code(s): N18.32 - Chronic kidney disease, stage 3b Status: Chronic Assessment and Plan: * suspect baseline creatinine 1.9 - 2.3mg/dl * due to biopsy proven diabetic nephropathy along with HTN/vascular disease * suspect creatinine/kidney function will always fluctuate depending on his volume status and necessity of diuretics to achieve euvolemia (3) Hallucinations: Code(s): R44.3 - Hallucinations, unspecified Status: Acute Assessment and Plan: * etiology? * CT of head negative Improved (4) Acute combined systolic and diastolic CHF, NYHA class 1: Code(s): I50.41 - Acute combined systolic (congestive) and diastolic (congestive) heart failure Status: Acute Assessment and Plan: * well known issues with several recent hospitalizations for this problems * some issues with decompensation related to compliance * Cardiology following * On diuretics, dobutamine. (5) Anasarca: Code(s): R60.1 - Generalized edema Status: Acute Assessment and Plan: * due to heart failure but his nephrotic range proteinuria/syndrome is also playing a role , as he is spilling over 14 g of protein per day. * Albumin supplementation completed to get albumin level up. * Now on dobutamine and diuretics * may have to accept a higher creatinine to achieve euvolemia, however creatinine has improved with the dobutamine. (6) Hypertension: Code(s): I10 - Essential (primary) hypertension Status: Acute Assessment and Plan: * Blood pressure is running 130-160 * He is on lisinopril and hydralazine. * Just increased hydralazine yesterday. Will increase again today (7) Diabetes: Code(s): E11.9 - Type 2 diabetes mellitus without complications Status: Chronic Assessment and Plan: * on Accu-Cheks and sliding-scale insulin Subjective Date/time seen: 05/31/21 12:43 Interval history: Limited Faroese. He seems a little confused Feels okay. Denies pain or shortness of breath Exam Narrative: General: ill appearing male in NAD; on BiPAP Heart: normal S1 and S2; no rub or gallop Lungs: decreased breath sounds at bases Abdomen: soft, nontender, nondistended, positive bowel sounds Extremities: 2+ Symmetrical edema. Skin: no acute rash or subQ nodules Objective Data Vital Signs Vital Signs: Vital Signs - 24 hr 05/30/21 14:00 05/30/21 16:00 05/30/21 16:50 Temperature 36.4 C L Pulse Rate 82 84 81 Respiratory Rate 26 H 20 Blood Pressure 159/67 H Pulse Oximetry 98 05/30/21 17:00 05/30/21 18:00 05/30/21 20:00 Temperature 36.4 C L Pulse Rate 80 85 93 Respiratory Rate 20 20 Blood Pressure 137/64
--- NOTE | 2021-05-31 12:43 | PM.PNNEP ---
Progress Note: A&P Assessment and Plan (1) GLENN (acute kidney injury): Code(s): N17.9 - Acute kidney failure, unspecified Status: Acute Assessment and Plan: acute kidney injury etiology is probably multifactorial, including diastolic dysfunction, and progression of disease the patient may have severe pre renal component as well because of his nephrotic syndrome and low albumin. His creatinine has dropped to 2.5. he is making large amounts of urine. On dobutamine 2.5 still. Urine output still almost 3L per day. Continue dobutamine and diuretics. (2) Stage 3b chronic kidney disease: Code(s): N18.32 - Chronic kidney disease, stage 3b Status: Chronic Assessment and Plan: suspect baseline creatinine 1.9 - 2.3mg/dl due to biopsy proven diabetic nephropathy along with HTN/vascular disease suspect creatinine/kidney function will always fluctuate depending on his volume status and necessity of diuretics to achieve euvolemia (3) Hallucinations: Code(s): R44.3 - Hallucinations, unspecified Status: Acute Assessment and Plan: etiology? CT of head negative Improved (4) Acute combined systolic and diastolic CHF, NYHA class 1: Code(s): I50.41 - Acute combined systolic (congestive) and diastolic (congestive) heart failure Status: Acute Assessment and Plan: well known issues with several recent hospitalizations for this problems some issues with decompensation related to compliance Cardiology following On diuretics, dobutamine. (5) Anasarca: Code(s): R60.1 - Generalized edema Status: Acute Assessment and Plan: due to heart failure but his nephrotic range proteinuria/syndrome is also playing a role , as he is spilling over 14 g of protein per day. Albumin supplementation completed to get albumin level up. Now on dobutamine and diuretics may have to accept a higher creatinine to achieve euvolemia, however creatinine has improved with the dobutamine. (6) Hypertension: Code(s): I10 - Essential (primary) hypertension Status: Acute Assessment and Plan: Blood pressure is running 130-160 He is on lisinopril and hydralazine. Just increased hydralazine yesterday. Will increase again today (7) Diabetes: Code(s): E11.9 - Type 2 diabetes mellitus without complications Status: Chronic Assessment and Plan: on Accu-Cheks and sliding-scale insulin Subjective Date/time seen: 05/31/21 12:43 Interval history: Limited Uzbek. He seems a little confused Feels okay. Denies pain or shortness of breath Exam Narrative: General: ill appearing male in NAD; on BiPAP Heart: normal S1 and S2; no rub or gallop Lungs: decreased breath sounds at bases Abdomen: soft, nontender, nondistended, positive bowel sounds Extremities: 2+ Symmetrical edema. Skin: no acute rash or subQ nodules Objective Data Vital Signs Vital Signs: Vital Signs - 24 hr 05/30/21 14:00 05/30/21 16:00 05/30/21 16:50 Temperature 36.4 C L Pulse Rate 82 84 81 Respiratory Rate 26 H 20 Blood Pressure 159/67 H Pulse Oximetry 98 05/30/21 17:00 05/30/21 18:00 05/30/21 20:00 Temperature 36.4 C L Pulse Rate 80 85 93 Respiratory Rate 20 20 Blood Pressure 137/64 Pulse Oximetry 92 05/30/21 20:54 05/30/21 21:00 05/30/21 21:10 Temperature Pulse Rate 94 88 87 Respiratory Rate 18 20 Blood Pressure Pulse Oximetry 95 05/30/21 21:52 05/30/21 22:00 05/31/21 00:00 Temperature 36.4 C L 36.7 C Pulse Rate 98 85 Respiratory Rate 22 H Blood Pressure 159/75 H Pulse Oximetry 98 05/31/21 00:31 05/31/21 00:40 05/31/21 01:39 Temperature Pulse Rate 80 83 79 Respiratory Rate 18 18 Blood Pressure Pulse Oximetry 05/31/21 03:58 05/31/21 04:00 05/31/21 04:05 Temperature 36.6 C Pulse Rate 75 74 77 Respiratory Rate 18 22 H 18 Blood Pressure 140
--- NOTE | 2021-05-31 13:17 | PM.IMPN ---
Progress Note: A&P Assessment and Plan (1) Combined congestive systolic and diastolic heart failure: Code(s): I50.40 - Unspecified combined systolic (congestive) and diastolic (congestive) heart failure Status: Acute Assessment and Plan: Pt is slowly improving Aggressive diuresis with IV Bumex. Strict intake output record and daily weight. Continue to monitor renal parameters and electrolytes. Still with significant anasarca. He had a net negative fluid balance of about 16 L since admission. He had a net negative fluid balance of 1.5 L over the last 24 hour. Cardiology consult recommendations appreciated. Pt is on dobutamine which will be continued. Continue to monitor on telemetry for any arrhythmias while he is on dobutamine drip. (2) Infiltrate of lung present on chest x-ray: Code(s): R91.8 - Other nonspecific abnormal finding of lung field Status: Acute Assessment and Plan: Patient with no fever no leukocytosis no sputum production BC is negative Antibiotics X were stopped (3) Acute respiratory failure with hypoxia: Code(s): J96.01 - Acute respiratory failure with hypoxia Status: Acute Assessment and Plan: Oxygen by nasal cannula as needed to keep oxygen saturation above 89%. Currently he is on room air. He was weaned down to room air yesterday. Nursing staff has reported hypoxia while he is sleeping and required 2 L of oxygen at nighttime. He has been weaned down to room air again in the morning. He might be having a component of obstructive sleep apnea. (4) Insulin dependent diabetes mellitus: Status: Chronic Assessment and Plan: Holding metformin Continue insulin sliding scale. Carb consistent diet Sugars are very well controlled. (5) CAD (coronary artery disease): Code(s): I25.10 - Atherosclerotic heart disease of [place] coronary artery without angina pectoris Status: Acute Assessment and Plan: Continue home meds No chest pain Supportive care Stress test showed ejection fraction of 40-45% with evidence of old large infarct. No angina. Continue metoprolol and aspirin. Continue statin. (6) Below-knee amputation of right lower extremity: Code(s): S88.111A - Complete traumatic amputation at level between knee and ankle, right lower leg, initial encounter Status: Acute Assessment and Plan: Continue to monitor (7) Diabetic ulcer of left foot: Code(s): E11.621 - Type 2 diabetes mellitus with foot ulcer; L97.529 - Non-pressure chronic ulcer of other part of left foot with unspecified severity Status: Acute Assessment and Plan: Wound care nurse following. Local care as per nurse. BC are negative. Does not seems to be infected. Initially was on IV Rocephin which has been stopped now. (8) Stage 3b chronic kidney disease: Code(s): N18.32 - Chronic kidney disease, stage 3b Status: Chronic Assessment and Plan: His baseline creatinine is around 2 with creatinine ranging from 1.9-2.3. Secondary to diabetic nephropathy along with HTN/vascular disease and possible nephrotic syndrome. He did have biopsy-proven diabetic nephropathy. Nephrology service is following and their recommendations appreciated. Acute kidney injury on chronic kidney disease was likely multifactorial including diastolic/systolic dysfunction and progression of disease. Creatinine has now improved to 2.4. He is making good amount of urine. Continue dobutamine and diuretics. (9) Hypertension: Code(s): I10 - Essential (primary) hypertension Status: Acute Assessment and Plan: Lisinopril remains on hold. Isosorbide mononitrate has been resumed. Continue metoprolol at current dose of 50 mg twice a day and do not increase the dose until he is on dobutamine drip. Hydralazine dose has been increased today by nephrology service is blood pressure reading were on t
--- NOTE | 2021-05-31 14:04 | PM.PNCARD ---
Progress Note: A&P Assessment and Plan (1) Acute combined systolic and diastolic CHF, NYHA class 1: Code(s): I50.41 - Acute combined systolic (congestive) and diastolic (congestive) heart failure Status: Acute Assessment and Plan: Patient presents with acute on chronic systolic and diastolic heart failure, anasarca, pleural effusions. Off BiPAP patient is hypoxic off O2 and sleeping without CPAP/BiPAP. Continue IV Bumex, remains volume overloaded but is improving with significant diuresis now nearly 13 L negative since admission. Urine output dropped off past 24 hours. Increase diuresis tomorrow morning if trend continues as renal function permits.. Follow renal function closely with a daily BMP - BUN/Cr continue to rise. Nephrotic range proteinuria and hypoalbuminemia are certainly contributing factors to swelling as well. Continues to diurese better with ionotropic support Dobutamine 2.5 mcg/kg/minute. Continue telemetry and monitor closely for worsening arrhythmia. Stable thus far. Patient remains very ill. Compliance extremely important. Counseled he must be compliant with CPAP with sleeping and O2 supplementation. (2) Nonsustained ventricular tachycardia: Code(s): I47.2 - Ventricular tachycardia Status: Acute Assessment and Plan: No nonsustained V-tach recently. Continue beta-malik. I would not increase metoprolol at this time unless absolutely necessary while on dobutamine. For example, if more frequent or longer runs of nonsustained VT benefit may outweigh risk at that point. I will reduce back down to 50 mg twice daily for now. Follow electrolytes stable today. (3) Ischemic cardiomyopathy: Code(s): I25.5 - Ischemic cardiomyopathy Status: Acute Assessment and Plan: EF 40-45%. Lexiscan suggests an old large infarct. No angina. Continue therapy with lisinopril, metoprolol The aspirin has likely been held due to anemia which has improved. Daily H&H Add ASA prior to d/c On statin. (4) Chronic kidney disease, stage 3b: Code(s): N18.32 - Chronic kidney disease, stage 3b Status: Acute Assessment and Plan: Slowly improving, creatinine 2.4 today, BUN 46. Nephrotic range proteinuria which is contributing to the patient's anasarca. Appreciate Nephrology involvement and their recommendations. (5) Hypertension: Code(s): I10 - Essential (primary) hypertension Status: Acute Assessment and Plan: Improved, stable after resuming isosorbide mononitrate. May increase hydralazine as necessary. Lisinopril remains on hold. (6) Encephalopathy: Code(s): G93.40 - Encephalopathy, unspecified Status: Acute Assessment and Plan: Improving, but not to baseline. Subjective Date/time seen: Date of service: 05/31/21 14:04 Interval history: Follow-up for acute on chronic CHF, HTN, nonsustained ventricular tachycardia, presumed CAD. Encephalopathic. Patient lethargic but arousable. Patient keeps taking his oxygen off falling asleep without CPAP. States he feels he is breathing little better but still very tired. Urine output fair but dropping off past 24 hours. Nearly-13.8 L thus far. Review of Systems Review of Systems: All systems reviewed & are unremarkable except as noted in HPI and below ROS unobtainable: Yes unobtainable due to mental status Constitutional: Constitutional: Reports as per HPI, Reports fatigue and Reports weakness Eyes: Eyes: Reports as per HPI and Reports no additional eye complaints ENT: Reports as per HPI and Denies epistaxis Cardiovascular: Cardiovascular: Reports as per HPI, Denies chest pain, Reports pedal edema, Reports leg edema, Reports dyspnea and Reports dyspnea on exertion Respiratory: Respiratory: Reports as per HPI, Reports no additional respiratory comp
[2021-05-31] MEDS: hydrALAZINE HCL 50 MG TABLET PO (17:32)
[2021-05-31 21:25] LABS: Glucose Point of Care 137 mg/dl (65-105)
[2021-05-31] MEDS: QUEtiapine FUMARATE 25 MG TABLET 50 MG PO (21:46)
[2021-06-01] VITALS (24 sets, daily range): BP systolic 136–168; BP diastolic 61–74; PULSE 70–95; RESP 18–24; TEMP 36.4–37; O2SAT 91–100
[2021-06-01] MEDS: IPRATROPIUM BR 0.02% INH SOLN 0.5 MG/2.5 ML VIAL INHALATION ×5 (03:12→20:36)
[2021-06-01] MEDS: ALBUTEROL SULFATE NEB 2.5 MG/0.5 ML INH INHALATION ×5 (03:12→20:36)
[2021-06-01] MEDS: DOBUTamine 250 MG/D5W 250 ML 250 MG/250 ML BAG 15.72 MG IV CONT ×2 (03:23→20:46)
[2021-06-01 04:42] LABS: Basophils Percent Auto 0.4 % (0.2-1.2); Eosinophils Absolute Auto 0.9 K/mm3 (0-0.3); Eosinophils Percent Auto 9.6 % (0-4.4); Hematocrit 30.6 % (42.0-52.0); Hemoglobin 8.6 g/dL (14.0-18.0); Immature Granulocyte Absolute 0.03 K/mm3 (0.00-0.031); Immature Granulocyte Percent A 0.3 % (0-0.5); Lymphocytes Absolute Auto 0.95 K/mm3 (0.9-3.2); Lymphocytes Percent Auto 10.1 % (18.3-44.2); Mean Corpuscular HGB Conc 28.1 g/dl (32-36); Mean Corpuscular Hemoglobin 25.9 pg (26-34); Mean Corpuscular Volume 92.2 fl (80-100); Mean Platelet Volume 11.4 fl (7.4-10.4); Monocytes Absolute Auto 0.7 K/mm3 (0.1-0.6); Monocytes Percent Auto 7.7 % (2.6-8.5); Neutrophils Absolute Auto 6.8 K/mm3 (1.3-6.7); Neutrophils Percent Auto 71.9 % (45.5-73.1); Platelet Count Result 238 k/mm3 (150-375); Red Blood Count 3.32 M/mm3 (4.6-6.20); Red Cell Distribution Width 15.9 % (11.5-14.5); White Blood Count 9.4 K/mm3 (4.5-10.0)
[2021-06-01 04:59] LABS: Anion Gap 3 mmol/L (8-16); Blood Urea Nitrogen 47 mg/dL (9-20); Carbon Dioxide 33 mmol/L (22-30); Chloride 105 mmol/L (98-107); Estimated CRCL calculation 38 ml/min; Estimated Glomerular Filt Rate 31; Glucose 123 mg/dL (65-110); Magnesium 1.9 mg/dL (1.6-2.3); Phosphorus 3.6 mg/dL (2.5-4.5); Potassium 4.3 mmol/L (3.4-5.0); Sodium 141 mmol/L (137-145)
[2021-06-01 05:02] LABS: Hypochromasia 1+ (NORMAL); Platelet Estimate Adequate (Adequate)
--- NOTE | 2021-06-01 07:49 | PM.IMPN ---
Progress Note: A&P Additional Plan START OF DOCTOR TIMMY?S PROGRESS NOTE Subjective: The patient versus no complaints at this time however he did treat him appears to be encephalopathic. I am uncertain as to what his baseline mentation may be Objective: General: -Alert -No acute distress -No dyspnea -No tachypnea Heart: -Regular rate -Regular rhythm -No murmurs -No gallops -No rubs Lungs: -No wheeze -No rhonchi -low-grade bilateral rales present Abdomen: -Normal bowel sounds in all four quadrants -No rebound -No guarding -No tenderness Extremities: -2/4 pulse in bilateral upper extremities. . 1/4 left dorsalis pedis pulse -No clubbing -No cyanosis -trace left lower extremity edema present Additional Details / Additional Findings / Exceptions / Miscellaneous: Patient status post right BKA Pertinent Laboratory Results / Pertinent Radiology Results / Pertinent Diagnostic Results / Pertinent Vital Signs: Respirations 22, blood pressure 158/71, pulse 95, hemoglobin 8.6, creatinine 2.4 Assessment / Plan: Hallucinations. Seroquel 50 mg p.o. q.h.s.. Check TSH, free T4, B12, folate, RPR, HIV, hepatitis, ammonia Right pleural effusion. Bumex 2 mg IV b.i.d. Acute on chronic kidney disease. Baseline creatinine approximately 1.9-2.3. Monitor serum electrolytes and renal function intermittently. I appreciate Nephrology evaluate the patient Coronary artery disease, status post NV. Lipitor 40 mg p.o. q.h.s. plus Imdur 60 mg p.o. daily plus metoprolol 50 mg p.o. b.i.d. plus aspirin 81 mg p.o. daily Hypertension. Hydralazine 75 mg p.o. t.i.d. plus Bumex 2 mg IV b.i.d. plus Imdur 60 mg p.o. daily plus lisinopril 20 mg p.o. daily plus metoprolol 50 mg p.o. b.i.d. Diabetes. Will check fingerstick glucose q.a.c. and HS and provide insulin sliding scale plus glipizide 10 mg p.o. daily CHF, ejection fraction 40-45%, grade 2 diastolic dysfunction. Bumex 2 mg IV b.i.d. plus lisinopril 20 mg p.o. daily plus metoprolol 50 mg p.o. b.i.d. plus IV dobutamine drip Severe mitral regurgitation Diverticulosis Peripheral vascular disease. Lipitor 40 mg p.o. q.h.s. plus aspirin 81 mg p.o. daily Urinary retention. Patient status post catheter placement. I appreciate Urology evaluate the patient Nonsustained ventricular tachycardia. Telemetry monitoring. I appreciate Cardiology evaluate the patient. Metoprolol 50 mg p.o. b.i.d. Anemia. Will monitor hemoglobin level intermittently. Check serum ferritin, iron panel, fecal occult blood Microscopic hematuria. Outpatient follow-up with Urology upon discharge Neuropathy. Gabapentin 300 mg p.o. t.i.d. DVT prophylaxis. Heparin 5000 units subcutaneously q.12 hours Disposition: Patient may be a cane for discharge within 24 hours however planning with Case Management/social Work will be required END OF DOCTOR TIMMY?S PROGRESS NOTE Subjective Date/time seen: 06/01/21 07:49 Objective Data Vital Signs Vital Signs: Vital Signs - 24 hr 05/31/21 07:54 05/31/21 08:00 05/31/21 08:09 Temperature Pulse Rate 78 79 79 Respiratory Rate 20 20 Blood Pressure Pulse Oximetry 100 90 05/31/21 08:50 05/31/21 08:53 05/31/21 10:00 Temperature Pulse Rate 85 78 Respiratory Rate Blood Pressure Pulse Oximetry 58 L 05/31/21 12:00 05/31/21 12:18 05/31/21 12:29 Temperature Pulse Rate 76 80 76 Respiratory Rate 16 20 20 Blood Pressure 167/43 H Pulse Oximetry 99 05/31/21 14:00 05/31/21 15:53 05/31/21 16:00 Temperature 97.6 F Pulse Rate 79 86 79 Respiratory Rate 20 16 Blood Pressure 122/67 Pulse Oximetry 99 05/31/21 16:02 05/31/21 18:00 05/31/21 20:00 Temperature 97.4 F L Pulse Rate 79 84 85 Respiratory Rate 20 22 H Blood Pressure 131/69 Pulse Oximetry 88 L 05/31/21 20:35 05/31/21 20:44 05/31/21 22:00 Temperature Pulse Rate 91 89 92 Respiratory Rate 24 H 22 H Blood Pr
[2021-06-01 09:03] LABS: Ammonia < 9 umol/L (9-30)
[2021-06-01 09:14] LABS: Parathyroid Intact 154.1 pg/mL (7.5-53.5)
[2021-06-01 09:18] LABS: Iron 34 ug/dL (49-181)
[2021-06-01 09:26] LABS: Percent Iron Saturation 19 % (20-50)
[2021-06-01] MEDS: METOPROLOL TARTRATE 50 MG TAB PO ×2 (09:27→20:45)
[2021-06-01] MEDS: ISOSORBIDE MONONITRATE 60 MG TAB.ER.24H PO (09:27)
[2021-06-01] MEDS: HEPARIN SODIUM 5,000 UNITS/ML VIAL 5000 UNITS SUB-Q ×2 (09:27→20:45)
[2021-06-01] MEDS: BUMETANIDE INJ 2.5 MG/10 ML VIAL 2 MG IV PUSH (09:28)
[2021-06-01] MEDS: GABAPENTIN 300 MG CAPSULE PO ×2 (09:28→13:32)
[2021-06-01] MEDS: ATORVASTATIN 40 MG TABLET PO (09:29)
[2021-06-01] MEDS: hydrALAZINE HCL 25 MG TABLET 75 MG PO ×2 (09:30→13:33)
[2021-06-01] MEDS: ASPIRIN 81 MG CHEWABLE TABLET PO (09:31)
[2021-06-01 09:34] LABS: Glucose Point of Care 110 mg/dl (65-105)
[2021-06-01 09:36] LABS: Free T4 Free Thyroxine 1.33 ng/mL (0.78-2.19)
[2021-06-01 09:44] LABS: HIV 1/2 Ab P24 Ag Result Negative (Negative)
[2021-06-01 09:48] LABS: Hepatitis B Surface Antigen Negative (Negative)
[2021-06-01 09:54] LABS: HAV RESULT Negative (Negative); Hepatitis B Core IgM Result Negative (Negative)
[2021-06-01 10:06] LABS: Hepatitis C Virus Antibody Negative (Negative)
[2021-06-01 12:46] LABS: Glucose Point of Care 145 mg/dl (65-105)
--- NOTE | 2021-06-01 13:59 | PM.PNCARD ---
Progress Note: A&P Assessment and Plan (1) Acute combined systolic and diastolic CHF, NYHA class 1: Code(s): I50.41 - Acute combined systolic (congestive) and diastolic (congestive) heart failure <DAVONTE Scott - Last Filed: 06/01/21 15:39> Status: Acute <DAVONTE Scott - Last Filed: 06/01/21 15:39> Assessment and Plan: Patient presents with acute on chronic systolic and diastolic heart failure, anasarca, pleural effusions. Off BiPAP patient is hypoxic off O2 and sleeping without CPAP/BiPAP. Has been diuresing well with IV Bumex. He has been shifted to a furosemide drip today. Follow renal function closely with a daily BMP - BUN/Cr stable today. Nephrotic range proteinuria and hypoalbuminemia are certainly contributing factors to swelling as well. Continues to diurese better with ionotropic support Dobutamine 2.5 mcg/kg/minute. Continue telemetry and monitor closely for worsening arrhythmia. Stable thus far. Patient remains very ill. Compliance extremely important. <DAVONTE Scott - Last Filed: 06/01/21 15:39> (2) Nonsustained ventricular tachycardia: Code(s): I47.2 - Ventricular tachycardia <DAVONTE Scott - Last Filed: 06/01/21 15:39> Status: Acute <DAVONTE Scott - Last Filed: 06/01/21 15:39> Assessment and Plan: No nonsustained V-tach recently. Continue beta-malik. I would not increase metoprolol at this time unless absolutely necessary while on dobutamine. For example, if more frequent or longer runs of nonsustained VT benefit may outweigh risk at that point. Continue metoprolol 50mg b.i.d. for now. Follow electrolytes - stable today. <DAVONTE Scott - Last Filed: 06/01/21 15:39> (3) Ischemic cardiomyopathy: Code(s): I25.5 - Ischemic cardiomyopathy <DAVONTE Scott - Last Filed: 06/01/21 15:39> Status: Acute <DAVONTE Scott - Last Filed: 06/01/21 15:39> Assessment and Plan: EF 40-45%. Lexiscan suggests an old large infarct. No angina. Continue therapy with lisinopril, metoprolol The aspirin has likely been held due to anemia which has improved. Daily H&H Add ASA prior to d/c On statin. <DAVONTE Scott - Last Filed: 06/01/21 15:39> (4) Chronic kidney disease, stage 3b: Code(s): N18.32 - Chronic kidney disease, stage 3b <DAVONTE Scott - Last Filed: 06/01/21 15:39> Status: Acute <DAVONTE Scott - Last Filed: 06/01/21 15:39> Assessment and Plan: Slowly improving, creatinine 2.3 today, BUN 47. Nephrotic range proteinuria which is contributing to the patient's anasarca. Appreciate Nephrology involvement and their recommendations. <DAVONTE Scott - Last Filed: 06/01/21 15:39> (5) Hypertension: Code(s): I10 - Essential (primary) hypertension <DAVONTE Scott - Last Filed: 06/01/21 15:39> Status: Acute <DAVONTE Scott - Last Filed: 06/01/21 15:39> Assessment and Plan: Improved, stable after resuming isosorbide mononitrate. May increase hydralazine as necessary. Lisinopril remains on hold. <DAVONTE Scott - Last Filed: 06/01/21 15:39> (6) Encephalopathy: Code(s): G93.40 - Encephalopathy, unspecified <DAVONTE Scott - Last Filed: 06/01/21 15:39> Status: Acute <DAVONTE Scott - Last Filed: 06/01/21 15:39> Assessment and Plan: Improving, but not to baseline. <Helena Gonzalez, REN-C - Last Filed: 06/01/21 15:39> Additional Plan Attending addendum: I have personally seen and examined this patient bedside. Patient remains very confused but awake. In response to questions he indicates he feels okay denies shortness of breath but again is quite confused. Denies pain. Remains
[2021-06-01 14:12] LABS: Folic Acid 8.1 ng/mL (2.76->20)
--- NOTE | 2021-06-01 15:58 | PM.PNNEP ---
Progress Note: A&P Assessment and Plan (1) GLENN (acute kidney injury): Code(s): N17.9 - Acute kidney failure, unspecified Status: Acute Assessment and Plan: etiology is probably multifactorial, including diastolic dysfunction, and progression of disease the patient may have severe pre renal component as well because of his nephrotic syndrome and low albumin. good urine output with dobutamine and IV diuretics follow trend of repeat labs (2) Stage 3b chronic kidney disease: Code(s): N18.32 - Chronic kidney disease, stage 3b Status: Chronic Assessment and Plan: suspect baseline creatinine 1.9 - 2.3mg/dl due to biopsy proven diabetic nephropathy along with HTN/vascular disease suspect creatinine/kidney function will always fluctuate depending on his volume status and necessity of diuretics to achieve euvolemia (3) Hallucinations: Code(s): R44.3 - Hallucinations, unspecified Status: Acute Assessment and Plan: etiology? CT of head negative Improved (4) Acute combined systolic and diastolic CHF, NYHA class 1: Code(s): I50.41 - Acute combined systolic (congestive) and diastolic (congestive) heart failure Status: Acute Assessment and Plan: well known issues with several recent hospitalizations for this problems some issues with decompensation related to compliance Cardiology following On diuretics + dobutamine. (5) Anasarca: Code(s): R60.1 - Generalized edema Status: Acute Assessment and Plan: due to heart failure but his nephrotic range proteinuria/syndrome is also playing a role -- he is spilling over 14 g of protein per day. s/p albumin supplementation now on dobutamine and diuretics may have to accept a higher creatinine to achieve euvolemia, however creatinine has improved with the dobutamine. (6) Hypertension: Code(s): I10 - Essential (primary) hypertension Status: Acute Assessment and Plan: blood pressure is running 130-160 He is on lisinopril and hydralazine. follow trend of hemodynamics (7) Diabetes: Code(s): E11.9 - Type 2 diabetes mellitus without complications Status: Chronic Assessment and Plan: follow Accu-Cheks on sliding-scale insulin Will continue to follow. Subjective Date/time seen: 06/01/21 15:58 Chart reviewed since last seen - assuming care from Dr. Johnson; still appears confused at the time of my visit; better UOP with use of IV dobutamine and IV diuretics; respiratory status seems better since last seen as well; no issues overnight or earlier this AM. Exam Narrative: General: ill appearing male in NAD; on BiPAP Heart: normal S1 and S2; no rub or gallop Lungs: decreased breath sounds at bases Abdomen: soft, nontender, nondistended, positive bowel sounds Extremities: 2+ Symmetrical edema. Skin: no acute rash or subQ nodules Objective Data Vital Signs Vital Signs: Vital Signs Temp Pulse Resp BP Pulse Ox 06/01/21 15:17 80 20 06/01/21 15:10 76 20 06/01/21 12:26 95 06/01/21 12:17 70 20 06/01/21 12:00 36.4 C 71 18 137/67 100 06/01/21 09:27 90 06/01/21 09:07 90 20 06/01/21 08:57 92 20 06/01/21 08:00 89 100 06/01/21 06:59 37.0 C 95 22 H 158/71 H 100 06/01/21 06:00 94 06/01/21 04:00 36.7 C 93 22 H 168/74 H 100 06/01/21 03:53 92 20 100 06/01/21 03:21 91 20 06/01/21 03:13 93 20 06/01/21 01:41 90 05/31/21 23:46 36.5 C 82 20 129/92 H 100 05/31/21 23:42 94 22 H 93 05/31/21 22:00 92 05/31/21 20:44 89 22 H 05/31/21 20:35 91 24 H 93 05/31/21 20:00 36.3 C L 85 22 H 131/69 88 L Intake/Output Intake/Output: Intake & Output 05/29/21 05/30/21 05/31/21 06/01/21 23:59 23:59 23:59 23:59 Intake Total 1816 1380 1260 930 Output Total 5100 2150 2400 1700 Balance -3284 -770 -1140 -770 Meds/Re
--- NOTE | 2021-06-01 15:58 | P.PNNP_ITS ---
Progress Note: A&P Assessment and Plan (1) GLENN (acute kidney injury): Code(s): N17.9 - Acute kidney failure, unspecified Status: Acute Assessment and Plan: * etiology is probably multifactorial, including diastolic dysfunction, and progression of disease * the patient may have severe pre renal component as well because of his nephrotic syndrome and low albumin. * good urine output with dobutamine and IV diuretics * follow trend of repeat labs (2) Stage 3b chronic kidney disease: Code(s): N18.32 - Chronic kidney disease, stage 3b Status: Chronic Assessment and Plan: * suspect baseline creatinine 1.9 - 2.3mg/dl * due to biopsy proven diabetic nephropathy along with HTN/vascular disease * suspect creatinine/kidney function will always fluctuate depending on his volume status and necessity of diuretics to achieve euvolemia (3) Hallucinations: Code(s): R44.3 - Hallucinations, unspecified Status: Acute Assessment and Plan: * etiology? * CT of head negative Improved (4) Acute combined systolic and diastolic CHF, NYHA class 1: Code(s): I50.41 - Acute combined systolic (congestive) and diastolic (congestive) heart failure Status: Acute Assessment and Plan: * well known issues with several recent hospitalizations for this problems * some issues with decompensation related to compliance * Cardiology following * On diuretics + dobutamine. (5) Anasarca: Code(s): R60.1 - Generalized edema Status: Acute Assessment and Plan: * due to heart failure but his nephrotic range proteinuria/syndrome is also p laying a role -- he is spilling over 14 g of protein per day. * s/p albumin supplementation * now on dobutamine and diuretics * may have to accept a higher creatinine to achieve euvolemia, however creat inine has improved with the dobutamine. (6) Hypertension: Code(s): I10 - Essential (primary) hypertension Status: Acute Assessment and Plan: * blood pressure is running 130-160 * He is on lisinopril and hydralazine. * follow trend of hemodynamics (7) Diabetes: Code(s): E11.9 - Type 2 diabetes mellitus without complications Status: Chronic Assessment and Plan: * follow Accu-Cheks * on sliding-scale insulin Will continue to follow. Subjective Date/time seen: 06/01/21 15:58 Chart reviewed since last seen - assuming care from Dr. Johnson; still appears confused at the time of my visit; better UOP with use of IV dobutamine and IV diuretics; respiratory status seems better since last seen as well; no issues overnight or earlier this AM. Exam Narrative: General: ill appearing male in NAD; on BiPAP Heart: normal S1 and S2; no rub or gallop Lungs: decreased breath sounds at bases Abdomen: soft, nontender, nondistended, positive bowel sounds Extremities: 2+ Symmetrical edema. Skin: no acute rash or subQ nodules Objective Data Vital Signs Vital Signs: Vital Signs Temp Pulse Resp BP Pulse Ox 06/01/21 15:17 80 20 06/01/21 15:10 76 20 06/01/21 12:26 95 06/01/21 12:17 70 20 06/01/21 12:00 36.4 C 71 18 137/67 100 06/01/21 09:27 90 06/01/21 09:07 90 20 06/01/21 08:57 92 20 06/01/21 08:00 89 100 06/01/21 06:59 37.0 C 95 22 H 158/71 H 100
[2021-06-01 17:56] LABS: Glucose Point of Care 108 mg/dl (65-105)
[2021-06-01 20:14] LABS: Glucose Point of Care 119 mg/dl (65-105)
[2021-06-01] MEDS: QUEtiapine FUMARATE 25 MG TABLET 50 MG PO (20:45)
[2021-06-02] VITALS (25 sets, daily range): BP systolic 122–162; BP diastolic 63–79; PULSE 74–100; RESP 20–30; TEMP 36.6–37.7; O2SAT 85–100
[2021-06-02] MEDS: ALBUTEROL SULFATE NEB 2.5 MG/0.5 ML INH INHALATION ×5 (00:11→20:41)
[2021-06-02] MEDS: IPRATROPIUM BR 0.02% INH SOLN 0.5 MG/2.5 ML VIAL INHALATION ×5 (00:11→20:41)
[2021-06-02 05:21] LABS: Hematocrit 29.6 % (42.0-52.0); Hemoglobin 8.3 g/dL (14.0-18.0)
[2021-06-02 05:37] LABS: Anion Gap 4 mmol/L (8-16); Blood Urea Nitrogen 48 mg/dL (9-20); Calcium 8.3 mg/dL (8.4-10.2); Carbon Dioxide 32 mmol/L (22-30); Chloride 106 mmol/L (98-107); Estimated CRCL calculation 30 ml/min; Estimated Glomerular Filt Rate 23; Glucose 103 mg/dL (65-110); Potassium 4.7 mmol/L (3.4-5.0); Sodium 142 mmol/L (137-145)
[2021-06-02 07:30] LABS: Rapid Plasma Reagin Non-Reactive (NonReactive)
[2021-06-02 08:24] LABS: Glucose Point of Care 96 mg/dl (65-105)
[2021-06-02 09:07] LABS: IFOB Positive Control Positive; Immunochemical Fecal Occult Bl Positive (N)
[2021-06-02] MEDS: GABAPENTIN 300 MG CAPSULE PO ×3 (09:34→17:51)
[2021-06-02] MEDS: ATORVASTATIN 40 MG TABLET PO (09:34)
[2021-06-02] MEDS: METOPROLOL TARTRATE 50 MG TAB PO ×2 (09:34→20:55)
[2021-06-02] MEDS: hydrALAZINE HCL 25 MG TABLET 75 MG PO ×3 (09:34→17:51)
[2021-06-02] MEDS: ASPIRIN 81 MG CHEWABLE TABLET PO (09:35)
[2021-06-02] MEDS: ISOSORBIDE MONONITRATE 60 MG TAB.ER.24H PO (09:36)
[2021-06-02] MEDS: HEPARIN SODIUM 5,000 UNITS/ML VIAL 5000 UNITS SUB-Q ×2 (09:36→20:55)
--- NOTE | 2021-06-02 11:05 | P.PNNP_ITS ---
Progress Note: A&P Assessment and Plan (1) GLENN (acute kidney injury): Code(s): N17.9 - Acute kidney failure, unspecified Status: Acute Assessment and Plan: * etiology is probably multifactorial, including diastolic dysfunction, and progression of disease * the patient may have severe pre renal component as well because of his nephrotic syndrome and low albumin. * good urine output with dobutamine and IV diuretics * creatinine trend up again...somewhat concerning (2) Stage 3b chronic kidney disease: Code(s): N18.32 - Chronic kidney disease, stage 3b Status: Chronic Assessment and Plan: * suspect baseline creatinine 1.9 - 2.3mg/dl * due to biopsy proven diabetic nephropathy along with HTN/vascular disease * suspect creatinine/kidney function will always fluctuate depending on his volume status and necessity of diuretics to achieve euvolemia (3) Hallucinations: Code(s): R44.3 - Hallucinations, unspecified Status: Acute Assessment and Plan: * etiology? * CT of head negative * improved (4) Acute combined systolic and diastolic CHF, NYHA class 1: Code(s): I50.41 - Acute combined systolic (congestive) and diastolic (congestive) heart failure Status: Acute Assessment and Plan: * well known issues with several recent hospitalizations for this problems * some issues with decompensation related to compliance * Cardiology following * On diuretics + dobutamine. (5) Anasarca: Code(s): R60.1 - Generalized edema Status: Acute Assessment and Plan: * due to heart failure but his nephrotic range proteinuria/syndrome is also playing a role -- he is spilling over 14 g of protein per day. * s/p albumin supplementation * now on dobutamine and diuretics * may have to accept a higher creatinine to achieve euvolemia, however creatinine has improved with the dobutamine. (6) Hypertension: Code(s): I10 - Essential (primary) hypertension Status: Acute Assessment and Plan: * blood pressure is running 130-160 * He is on lisinopril and hydralazine. * follow trend of hemodynamics (7) Diabetes: Code(s): E11.9 - Type 2 diabetes mellitus without complications Status: Chronic Assessment and Plan: * follow Accu-Cheks * on sliding-scale insulin Will continue to follow. Subjective Date/time seen: 06/02/21 11:05 Patient apparently pulled out his IJ JACC catheter yesterday afternoon; mentation seems a bit better (although language barrier somewhat limits detailed assessment); respiratory status also a bit better as well; no acute distress noted. Exam Narrative: General: ill appearing male in NAD Heart: normal S1 and S2; no rub or gallop Lungs: decreased breath sounds at bases Abdomen: soft, nontender, nondistended, positive bowel sounds Extremities: 2+ edema throughout Skin: warm and dry Objective Data Vital Signs Vital Signs: Vital Signs Temp Pulse Resp BP Pulse Ox 06/02/21 09:34 99 06/02/21 08:10 88 20 96 06/02/21 08:00 36.9 C 100 20 143/74 H 92 06/02/21 07:55 98 20 96 06/02/21 05:54 88 06/02/21 04:15 80 20 06/02/21 04:05 82 20 06/02/21 04:00 37.7 C H 97 20 147/70 H 100 06/02/21 02:15 90 06/02/21 00:20 78 20 06/02/21 00:12 74 20
--- NOTE | 2021-06-02 11:05 | PM.PNNEP ---
Progress Note: A&P Assessment and Plan (1) GLENN (acute kidney injury): Code(s): N17.9 - Acute kidney failure, unspecified Status: Acute Assessment and Plan: etiology is probably multifactorial, including diastolic dysfunction, and progression of disease the patient may have severe pre renal component as well because of his nephrotic syndrome and low albumin. good urine output with dobutamine and IV diuretics creatinine trend up again...somewhat concerning (2) Stage 3b chronic kidney disease: Code(s): N18.32 - Chronic kidney disease, stage 3b Status: Chronic Assessment and Plan: suspect baseline creatinine 1.9 - 2.3mg/dl due to biopsy proven diabetic nephropathy along with HTN/vascular disease suspect creatinine/kidney function will always fluctuate depending on his volume status and necessity of diuretics to achieve euvolemia (3) Hallucinations: Code(s): R44.3 - Hallucinations, unspecified Status: Acute Assessment and Plan: etiology? CT of head negative improved (4) Acute combined systolic and diastolic CHF, NYHA class 1: Code(s): I50.41 - Acute combined systolic (congestive) and diastolic (congestive) heart failure Status: Acute Assessment and Plan: well known issues with several recent hospitalizations for this problems some issues with decompensation related to compliance Cardiology following On diuretics + dobutamine. (5) Anasarca: Code(s): R60.1 - Generalized edema Status: Acute Assessment and Plan: due to heart failure but his nephrotic range proteinuria/syndrome is also playing a role -- he is spilling over 14 g of protein per day. s/p albumin supplementation now on dobutamine and diuretics may have to accept a higher creatinine to achieve euvolemia, however creatinine has improved with the dobutamine. (6) Hypertension: Code(s): I10 - Essential (primary) hypertension Status: Acute Assessment and Plan: blood pressure is running 130-160 He is on lisinopril and hydralazine. follow trend of hemodynamics (7) Diabetes: Code(s): E11.9 - Type 2 diabetes mellitus without complications Status: Chronic Assessment and Plan: follow Accu-Cheks on sliding-scale insulin Will continue to follow. Subjective Date/time seen: 06/02/21 11:05 Patient apparently pulled out his IJ JACC catheter yesterday afternoon; mentation seems a bit better (although language barrier somewhat limits detailed assessment); respiratory status also a bit better as well; no acute distress noted. Exam Narrative: General: ill appearing male in NAD Heart: normal S1 and S2; no rub or gallop Lungs: decreased breath sounds at bases Abdomen: soft, nontender, nondistended, positive bowel sounds Extremities: 2+ edema throughout Skin: warm and dry Objective Data Vital Signs Vital Signs: Vital Signs Temp Pulse Resp BP Pulse Ox 06/02/21 09:34 99 06/02/21 08:10 88 20 96 06/02/21 08:00 36.9 C 100 20 143/74 H 92 06/02/21 07:55 98 20 96 06/02/21 05:54 88 06/02/21 04:15 80 20 06/02/21 04:05 82 20 06/02/21 04:00 37.7 C H 97 20 147/70 H 100 06/02/21 02:15 90 06/02/21 00:20 78 20 06/02/21 00:12 74 20 06/01/21 23:44 36.6 C 90 22 H 142/68 H 100 06/01/21 23:28 92 20 100 06/01/21 20:45 88 06/01/21 20:44 76 20 06/01/21 20:36 77 20 06/01/21 20:00 36.8 C 91 20 136/69 100 06/01/21 19:18 88 06/01/21 16:00 36.9 C 85 24 H 142/61 H 91 06/01/21 15:17 80 20 06/01/21 15:10 76 20 06/01/21 12:26 95 06/01/21 12:17 70 20 06/01/21 12:00 36.4 C 71 18 137/67 100 Intake/Output Intake/Output: Intake & Output 05/30/21 05/31/21 06/01/21 06/02/21 23:59 23:59 23:59 23:59 Intake Total 1380 1260 1420 Output Total 2150 2400 1700 200 Balance -770 -1140 -280 -20
[2021-06-02] MEDS: BUMETANIDE INJ 2.5 MG/10 ML VIAL 2 MG IV PUSH (11:44)
--- NOTE | 2021-06-02 11:48 | PCDIET ---
Nutrition Follow-Up Complete: Nutrition Diagnosis: Inadequate oral intake related to altered mental status as evidenced by need for tube feedings. Nutrition Goal: Patient to meet estimated nutritional needs. Goal in progress. Patient has been consuming 75-100% of recorded meals on easy to chew diet, but ate little breakfast today (about 20% of food + 100% of milk). Recommend continuing Su[place]ena (420kcal, 10g protein) 1x daily. Patient still confused on visit; sitter in room. Last recorded weight is 93.7 kg which is down from last review. -I/O. Bowel Motility: Last documented BM on 05/29/21 x 2. Labs Reviewed: BUN (48), Cr (2.9), Ca (8.3) Meds Noted: Albuterol, Lipitor, Dobutamine, Furosemide, Neurontin, Glucotrol, Apresoline, Atrovent, Imdur, Seroquel Additional Notes: Deep tissue area on sacrum. Left lower leg ulcer. Left foot scab. Left knee abrasion. Will continue to monitor with same goal. Nutrition Monitoring and Evaluation: Follow up in 3 days.
--- NOTE | 2021-06-02 11:58 | PM.PNCARD ---
Progress Note: A&P Assessment and Plan (1) Acute combined systolic and diastolic CHF, NYHA class 1: Code(s): I50.41 - Acute combined systolic (congestive) and diastolic (congestive) heart failure Status: Acute Assessment and Plan: Patient presents with acute on chronic systolic and diastolic heart failure, anasarca, pleural effusions. Off BiPAP patient is hypoxic off O2 and sleeping without CPAP/BiPAP. Has been diuresing well with IV Bumex. He has been shifted to a furosemide drip today. Follow renal function closely with a daily BMP - BUN/Cr stable today. Nephrotic range proteinuria and hypoalbuminemia are certainly contributing factors to swelling as well. Not diuresing as well as diuretics have been held due to worsening renal function and in favor of Lasix continuous infusion despite ionotropic support Dobutamine 2.5 mcg/kg/minute. Lasix drip has yet to be initiated as dobutamine is not compatible and IV access night able to be obtained. Furthermore, consent not able to be obtained from family as yet for central line and or PICC line placement. Continue telemetry and monitor closely for worsening arrhythmia. Stable thus far. Patient remains very ill. Compliance extremely important. Will give 1 dose IV Bumex 2 mg x 1 as Lasix drip has yet to be initiated and it is not certain when central access could be obtained due to lack of consent from patient's family. Patient is unable to consent due to encephalopathy. (2) Nonsustained ventricular tachycardia: Code(s): I47.2 - Ventricular tachycardia Status: Acute Assessment and Plan: No nonsustained V-tach recently. Continue beta-malik without further increase at this time. For example, if more frequent or longer runs of nonsustained VT benefit may outweigh risk at that point. Continue metoprolol 50mg b.i.d. for now. Follow electrolytes - stable today. (3) Ischemic cardiomyopathy: Code(s): I25.5 - Ischemic cardiomyopathy Status: Acute Assessment and Plan: EF 40-45%. Lexiscan suggests an old large infarct. No angina. Continue therapy with lisinopril, metoprolol The aspirin has likely been held due to anemia which has improved. Daily H&H Add ASA prior to d/c On statin. (4) Chronic kidney disease, stage 3b: Code(s): N18.32 - Chronic kidney disease, stage 3b Status: Acute Assessment and Plan: Getting worse once again, creatinine 2.9 today, BUN 47. Nephrotic range proteinuria which is contributing to the patient's anasarca. Appreciate Nephrology involvement and their recommendations. (5) Hypertension: Code(s): I10 - Essential (primary) hypertension Status: Acute Assessment and Plan: Improved, stable after resuming isosorbide mononitrate. May increase hydralazine as necessary. Lisinopril remains on hold. (6) Encephalopathy: Code(s): G93.40 - Encephalopathy, unspecified Status: Acute Assessment and Plan: Worsening once again. Subjective Date/time seen: Date of service: 06/02/21 11:58 Interval history: Follow-up for acute on chronic CHF, HTN, nonsustained ventricular tachycardia, presumed CAD. Encephalopathic. More confused, encephalopathic. Falling asleep quickly after arousable not answering questions directly. Currently on room air. Remains on dobutamine. He does not have separate IV access so furosemide infusion has yet to be initiated and unable to obtain consent as family could not be contacted this a.m. per nursing. Sitter at bedside. Review of Systems Review of Systems: All systems reviewed & are unremarkable except as noted in HPI and below ROS unobtainable: Yes unobtainable due to medical condition and unobtainable due to mental status Constitutional: Constitutional: Reports as per HPI Eyes: Eyes: Reports as per HPI and Reports no nicanor
[2021-06-02 12:27] LABS: Glucose Point of Care 95 mg/dl (65-105)
[2021-06-02] MEDS: DOBUTamine 250 MG/D5W 250 ML 250 MG/250 ML BAG 15.72 MG IV CONT (13:00)
--- NOTE | 2021-06-02 14:07 | PM.IMPN ---
Progress Note: A&P Assessment and Plan (1) Combined congestive systolic and diastolic heart failure: Code(s): I50.40 - Unspecified combined systolic (congestive) and diastolic (congestive) heart failure Status: Acute Assessment and Plan: Pt is slowly improving Aggressive diuresis with IV Bumex. Now changed to IV lasix. Cardiology consult recommendations appreciated. Pt is on dobutamine which is discontinued. Pt is still critically unwell (2) Infiltrate of lung present on chest x-ray: Code(s): R91.8 - Other nonspecific abnormal finding of lung field Status: Acute Assessment and Plan: Patient with no fever no leukocytosis no sputum production BC is negative Antibiotics were stopped Looks more like a R pleural effusion (3) Acute respiratory failure with hypoxia: Code(s): J96.01 - Acute respiratory failure with hypoxia Status: Acute Assessment and Plan: Oxygen by nasal cannula as needed to keep oxygen saturation above 89%. Currently he is on room air. (4) Insulin dependent diabetes mellitus: Status: Chronic Assessment and Plan: Holding metformin Continue insulin sliding scale. Carb consistent diet Sugars are very well controlled. (5) CAD (coronary artery disease): Code(s): I25.10 - Atherosclerotic heart disease of [place] coronary artery without angina pectoris Status: Acute Assessment and Plan: Continue home meds No chest pain Supportive care Stress test showed ejection fraction of 40-45% with evidence of old large infarct. No angina. Continue metoprolol and aspirin. Continue statin. (6) Below-knee amputation of right lower extremity: Code(s): S88.111A - Complete traumatic amputation at level between knee and ankle, right lower leg, initial encounter Status: Acute Assessment and Plan: Continue to monitor (7) Diabetic ulcer of left foot: Code(s): E11.621 - Type 2 diabetes mellitus with foot ulcer; L97.529 - Non-pressure chronic ulcer of other part of left foot with unspecified severity Status: Acute Assessment and Plan: Wound care nurse following. Local care as per nurse. BC are negative. Does not seems to be infected. Initially was on IV Rocephin which has been stopped now. (8) Stage 3b chronic kidney disease: Code(s): N18.32 - Chronic kidney disease, stage 3b Status: Chronic Assessment and Plan: His baseline creatinine is around 2 with creatinine ranging from 1.9-2.3. Secondary to diabetic nephropathy along with HTN/vascular disease and possible nephrotic syndrome. He did have biopsy-proven diabetic nephropathy. Nephrology service is following and their recommendations appreciated. Acute kidney injury on chronic kidney disease was likely multifactorial including diastolic/systolic dysfunction and progression of disease. Creatinine has now improved to 2.9. Pt is on iv lasix drip only now. (9) Hypertension: Code(s): I10 - Essential (primary) hypertension Status: Acute Assessment and Plan: Isosorbide mononitrate has been resumed. Hydralazine 75 mg p.o. t.i.d. plus Imdur 60 mg p.o. daily plus lisinopril 20 mg p.o. daily plus metoprolol 50 mg p.o. b.i.d. iv lasix drip Subjective Date/time seen: 06/02/21 14:07 Interval history: 45-year-old male with past medical history significant for type 2 diabetes mellitus insulin dependent, congestive heart failure, hypoxic respiratory failure, right BKA, left diabetic foot, chronic nonhealing ulcer of the right foot, hypertension. Pt is still encephalitic today. Review of Systems Review of Systems: All systems reviewed & are unremarkable except as noted in HPI and below Exam Narrative: Patient looks encephalitic HEENT: eyes are clear and none icteric, jugular line in situ LUNGS: normal respiratory effort, BL decreased BS ABDO: slightly distended Lower extremi
--- NOTE | 2021-06-02 16:33 | PC.NURSE ---
attempted to contact sandy gonzales x 3 -niece- person to notify for consent for central line- will continue to call
[2021-06-02 18:00] LABS: Glucose Point of Care 97 mg/dl (65-105)
--- NOTE | 2021-06-02 18:04 | PCRCNOTE ---
Window of time for administration has passed. See next scheduled administration.
[2021-06-02 20:06] LABS: Glucose Point of Care 124 mg/dl (65-105)
[2021-06-02] MEDS: QUEtiapine FUMARATE 25 MG TABLET 50 MG PO (20:55)
[2021-06-03] VITALS (27 sets, daily range): BP systolic 117–159; BP diastolic 63–74; PULSE 63–83; RESP 12–22; TEMP 36.6–36.9; O2SAT 96–100
[2021-06-03] MEDS: IPRATROPIUM BR 0.02% INH SOLN 0.5 MG/2.5 ML VIAL INHALATION ×5 (00:10→20:01)
[2021-06-03] MEDS: ALBUTEROL SULFATE NEB 2.5 MG/0.5 ML INH INHALATION ×5 (00:10→20:01)
[2021-06-03] MEDS: DOBUTamine 250 MG/D5W 250 ML 250 MG/250 ML BAG 15.72 MG IV CONT ×2 (04:50→21:20)
[2021-06-03 05:15] LABS: Hematocrit 28.5 % (42.0-52.0); Hemoglobin 8.2 g/dL (14.0-18.0); Mean Corpuscular HGB Conc 28.8 g/dl (32-36); Mean Corpuscular Hemoglobin 26.2 pg (26-34); Mean Corpuscular Volume 91.1 fl (80-100); Mean Platelet Volume 11.4 fl (7.4-10.4); Platelet Count Result 227 k/mm3 (150-375); Red Blood Count 3.13 M/mm3 (4.6-6.20); Red Cell Distribution Width 16.2 % (11.5-14.5); White Blood Count 9.6 K/mm3 (4.5-10.0)
[2021-06-03 05:27] LABS: Anion Gap 4 mmol/L (8-16); Blood Urea Nitrogen 58 mg/dL (9-20); Calcium 8.2 mg/dL (8.4-10.2); Carbon Dioxide 30 mmol/L (22-30); Chloride 105 mmol/L (98-107); Estimated CRCL calculation 25 ml/min; Estimated Glomerular Filt Rate 19; Glucose 93 mg/dL (65-110); Potassium 4.7 mmol/L (3.4-5.0); Sodium 139 mmol/L (137-145)
[2021-06-03 08:23] LABS: Glucose Point of Care 75 mg/dl (65-105)
[2021-06-03] MEDS: hydrALAZINE HCL 25 MG TABLET 75 MG PO ×3 (09:35→18:03)
[2021-06-03] MEDS: ASPIRIN 81 MG CHEWABLE TABLET PO (09:35)
[2021-06-03] MEDS: HEPARIN SODIUM 5,000 UNITS/ML VIAL 5000 UNITS SUB-Q ×2 (09:36→20:35)
[2021-06-03] MEDS: ATORVASTATIN 40 MG TABLET PO (09:36)
[2021-06-03] MEDS: GABAPENTIN 300 MG CAPSULE PO ×3 (09:36→18:03)
[2021-06-03] MEDS: METOPROLOL TARTRATE 50 MG TAB PO ×2 (09:37→20:35)
[2021-06-03] MEDS: ISOSORBIDE MONONITRATE 60 MG TAB.ER.24H PO (09:37)
--- NOTE | 2021-06-03 11:23 | PM.PNCARD ---
Progress Note: A&P Assessment and Plan (1) Acute combined systolic and diastolic CHF, NYHA class 1: Code(s): I50.41 - Acute combined systolic (congestive) and diastolic (congestive) heart failure Status: Acute Assessment and Plan: Patient presents with acute on chronic systolic and diastolic heart failure, anasarca, pleural effusions. Off BiPAP patient is hypoxic off O2 and sleeping without CPAP/BiPAP. Had been diuresing well with IV Bumex however this was discontinued by hospitalist service in favor of continuous Lasix infusion. Yet, due to incompatibility dobutamine and lack of alternative IV access this has not been started. Therefore, will discontinue Lasix infusion in favored Bumex drip which is compatible with dobutamine. Will start equivalent dose to furosemide 5 milligram/hour initially but expect increase after initial response identified. Renal function getting worse. Nephrotic range proteinuria and hypoalbuminemia are certainly contributing factors to swelling as well. Not diuresing as well as diuretics have been held due to worsening renal function despite ionotropic support Dobutamine 2.5 mcg/kg/minute. Continue telemetry and monitor closely for worsening arrhythmia.Patient remains very ill. Prognosis poor. (2) Nonsustained ventricular tachycardia: Code(s): I47.2 - Ventricular tachycardia Status: Acute Assessment and Plan: No nonsustained V-tach recently. Continue beta-malik without further increase at this time. For example, if more frequent or longer runs of nonsustained VT benefit may outweigh risk at that point. Continue metoprolol 50mg b.i.d. for now. Follow electrolytes - stable today. (3) Ischemic cardiomyopathy: Code(s): I25.5 - Ischemic cardiomyopathy Status: Acute Assessment and Plan: EF 40-45%. Lexiscan suggests an old large infarct. No angina. Continue therapy with lisinopril, metoprolol The aspirin has likely been held due to anemia which has improved. Daily H&H On statin, ASA. (4) Chronic kidney disease, stage 3b: Code(s): N18.32 - Chronic kidney disease, stage 3b Status: Acute Assessment and Plan: Getting worse once again, creatinine 3.5 today, BUN 58. Nephrotic range proteinuria which is contributing to the patient's anasarca. Appreciate Nephrology involvement and their recommendations. (5) Hypertension: Code(s): I10 - Essential (primary) hypertension Status: Acute Assessment and Plan: Stable (6) Encephalopathy: Code(s): G93.40 - Encephalopathy, unspecified Status: Acute Assessment and Plan: Remains problematic. Per hospitalist service. Subjective Date/time seen: Date of service: 06/03/21 11:23 Interval history: Follow-up for acute on chronic CHF, HTN, nonsustained ventricular tachycardia, presumed CAD. Encephalopathic. Remains confused, encephalopathic. Speaking in [place] but indicated his vision was blurry denies shortness of breath or chest pain. Lasix infusion has still to be started due to lack of compatible IV access. Remains on dobutamine. Currently on room air. Sitter in room. Review of Systems Review of Systems: All systems reviewed & are unremarkable except as noted in HPI and below ROS unobtainable: Yes unobtainable due to medical condition and unobtainable due to mental status Constitutional: Constitutional: Reports as per HPI and Reports weakness Eyes: Eyes: Reports as per HPI and Reports no additional eye complaints ENT: Reports as per HPI and Denies epistaxis Cardiovascular: Cardiovascular: Reports as per HPI, Denies chest pain, Reports pedal edema, Reports leg edema and Reports dyspnea Respiratory: Respiratory: Reports as per HPI, Reports no additional respiratory complaints, Reports chest congestion and Reports dyspnea Gastroint
[2021-06-03 12:17] LABS: Glucose Point of Care 98 mg/dl (65-105)
--- NOTE | 2021-06-03 13:32 | PM.IMPN ---
Progress Note: A&P Assessment and Plan (1) Combined congestive systolic and diastolic heart failure: Code(s): I50.40 - Unspecified combined systolic (congestive) and diastolic (congestive) heart failure Status: Acute Assessment and Plan: Pt is slowly improving Aggressive diuresis with IV Bumex. And dobutamine Cardiology consult recommendations appreciated. Pt is still critically unwell (2) Infiltrate of lung present on chest x-ray: Code(s): R91.8 - Other nonspecific abnormal finding of lung field Status: Acute Assessment and Plan: Patient with no fever no leukocytosis no sputum production BC is negative Antibiotics were stopped Looks more like a R pleural effusion (3) Acute respiratory failure with hypoxia: Code(s): J96.01 - Acute respiratory failure with hypoxia Status: Acute Assessment and Plan: Oxygen by nasal cannula as needed to keep oxygen saturation above 89%. Currently he is on room air. (4) Insulin dependent diabetes mellitus: Status: Chronic Assessment and Plan: Holding metformin Continue insulin sliding scale. Carb consistent diet Sugars are very well controlled. (5) CAD (coronary artery disease): Code(s): I25.10 - Atherosclerotic heart disease of [place] coronary artery without angina pectoris Status: Acute Assessment and Plan: Continue home meds No chest pain Supportive care Stress test showed ejection fraction of 40-45% with evidence of old large infarct. No angina. Continue metoprolol and aspirin. Continue statin. (6) Below-knee amputation of right lower extremity: Code(s): S88.111A - Complete traumatic amputation at level between knee and ankle, right lower leg, initial encounter Status: Acute Assessment and Plan: Continue to monitor (7) Diabetic ulcer of left foot: Code(s): E11.621 - Type 2 diabetes mellitus with foot ulcer; L97.529 - Non-pressure chronic ulcer of other part of left foot with unspecified severity Status: Acute Assessment and Plan: Wound care nurse following. Local care as per nurse. BC are negative. Does not seems to be infected. Initially was on IV Rocephin which has been stopped now. (8) Stage 3b chronic kidney disease: Code(s): N18.32 - Chronic kidney disease, stage 3b Status: Chronic Assessment and Plan: His baseline creatinine is around 2 with creatinine ranging from 1.9-2.3. Secondary to diabetic nephropathy along with HTN/vascular disease and possible nephrotic syndrome. He did have biopsy-proven diabetic nephropathy. Nephrology service is following and their recommendations appreciated. Acute kidney injury on chronic kidney disease was likely multifactorial including diastolic/systolic dysfunction and progression of disease. Creatinine has worse at 3.5. Pt is on IV bumex and dobutamine (9) Hypertension: Code(s): I10 - Essential (primary) hypertension Status: Acute Assessment and Plan: Isosorbide mononitrate has been resumed. Hydralazine 75 mg p.o. t.i.d. plus Imdur 60 mg p.o. daily plus lisinopril 20 mg p.o. daily plus metoprolol 50 mg p.o. b.i.d. Subjective Date/time seen: 06/03/21 13:32 Interval history: 45-year-old male with past medical history significant for type 2 diabetes mellitus insulin dependent, congestive heart failure, hypoxic respiratory failure, right BKA, left diabetic foot, chronic nonhealing ulcer of the right foot, hypertension. Pt is still encephalitic today. Critically ill, pt is seen by cardiology, pt is on dobutamine and bumex Review of Systems Review of Systems: All systems reviewed & are unremarkable except as noted in HPI and below Exam Narrative: Patient looks encephalitic HEENT: eyes are clear and none icteric LUNGS: normal respiratory effort, BL decreased BS ABDO: slightly distended Lower extremities: right lower extremity
--- NOTE | 2021-06-03 14:43 | PCPTNOTE ---
Attempted to see patient for PT this afternoon, however patient refused. Patient reported he just worked with OT and did not want therapy again. RN talked with patient about participating with PT, patient continued to refuse.
--- NOTE | 2021-06-03 16:43 | P.PNNP_ITS ---
Progress Note: A&P Assessment and Plan (1) GLENN (acute kidney injury): Code(s): N17.9 - Acute kidney failure, unspecified Status: Acute Assessment and Plan: * etiology is probably multifactorial, including diastolic dysfunction, and progression of disease * the patient may have severe pre renal component as well because of his nephrotic syndrome and low albumin. * good urine output with dobutamine and IV diuretics -- switched to bumex gtt * creatinine trend up again...somewhat concerning (2) Stage 3b chronic kidney disease: Code(s): N18.32 - Chronic kidney disease, stage 3b Status: Chronic Assessment and Plan: * suspect baseline creatinine 1.9 - 2.3mg/dl * due to biopsy proven diabetic nephropathy along with HTN/vascular disease * suspect creatinine/kidney function will always fluctuate depending on his volume status and necessity of diuretics to achieve euvolemia (3) Hallucinations: Code(s): R44.3 - Hallucinations, unspecified Status: Acute Assessment and Plan: * etiology? * CT of head negative * improved (4) Acute combined systolic and diastolic CHF, NYHA class 1: Code(s): I50.41 - Acute combined systolic (congestive) and diastolic (congestive) heart failure Status: Acute Assessment and Plan: * well known issues with several recent hospitalizations for this problems * some issues with decompensation related to compliance * Cardiology following * On diuretic gtt + dobutamine gtt at this time (5) Anasarca: Code(s): R60.1 - Generalized edema Status: Acute Assessment and Plan: * due to heart failure but his nephrotic range proteinuria/syndrome is also playing a role -- he is spilling over 14 g of protein per day. * s/p albumin supplementation * now on dobutamine and diuretics * may have to accept a higher creatinine to achieve euvolemia, however creatinine has improved with the dobutamine. (6) Hypertension: Code(s): I10 - Essential (primary) hypertension Status: Acute Assessment and Plan: * blood pressure is running 130-160 * He is on lisinopril and hydralazine. * follow trend of hemodynamics (7) Diabetes: Code(s): E11.9 - Type 2 diabetes mellitus without complications Status: Chronic Assessment and Plan: * follow Accu-Cheks * on sliding-scale insulin Will continue to follow. Subjective Date/time seen: 06/03/21 16:43 Given fluctuations in creatinine and urine output, now currently on dobutamine and bumex gtt; mentation seems about the same/unchanged; no acute distress noted but his higher creatinine in the last 24 - 48 hours is of concern; no apparent distress noted. Exam Narrative: General: ill appearing male in NAD Heart: normal S1 and S2; no rub or gallop Lungs: decreased breath sounds at bases Abdomen: soft, nontender, nondistended, positive bowel sounds Extremities: 2+ edema throughout Skin: warm and intact Objective Data Vital Signs Vital Signs: Vital Signs Temp Pulse Resp BP Pulse Ox 06/03/21 16:00 36.8 C 68 12 118/66 100 06/03/21 14:00 63 06/03/21 12:04 77 144/67 H 06/03/21 12:00 36.6 C 69 18 142/74 H 100 06/03/21 11:01 75 18 06/03/21 10:00 72 06/03/21 09:37 76 06/03/21 08:49 72 18 06/03/21 08:40 72 18 06/03
--- NOTE | 2021-06-03 16:43 | PM.PNNEP ---
Progress Note: A&P Assessment and Plan (1) GLENN (acute kidney injury): Code(s): N17.9 - Acute kidney failure, unspecified Status: Acute Assessment and Plan: etiology is probably multifactorial, including diastolic dysfunction, and progression of disease the patient may have severe pre renal component as well because of his nephrotic syndrome and low albumin. good urine output with dobutamine and IV diuretics -- switched to bumex gtt creatinine trend up again...somewhat concerning (2) Stage 3b chronic kidney disease: Code(s): N18.32 - Chronic kidney disease, stage 3b Status: Chronic Assessment and Plan: suspect baseline creatinine 1.9 - 2.3mg/dl due to biopsy proven diabetic nephropathy along with HTN/vascular disease suspect creatinine/kidney function will always fluctuate depending on his volume status and necessity of diuretics to achieve euvolemia (3) Hallucinations: Code(s): R44.3 - Hallucinations, unspecified Status: Acute Assessment and Plan: etiology? CT of head negative improved (4) Acute combined systolic and diastolic CHF, NYHA class 1: Code(s): I50.41 - Acute combined systolic (congestive) and diastolic (congestive) heart failure Status: Acute Assessment and Plan: well known issues with several recent hospitalizations for this problems some issues with decompensation related to compliance Cardiology following On diuretic gtt + dobutamine gtt at this time (5) Anasarca: Code(s): R60.1 - Generalized edema Status: Acute Assessment and Plan: due to heart failure but his nephrotic range proteinuria/syndrome is also playing a role -- he is spilling over 14 g of protein per day. s/p albumin supplementation now on dobutamine and diuretics may have to accept a higher creatinine to achieve euvolemia, however creatinine has improved with the dobutamine. (6) Hypertension: Code(s): I10 - Essential (primary) hypertension Status: Acute Assessment and Plan: blood pressure is running 130-160 He is on lisinopril and hydralazine. follow trend of hemodynamics (7) Diabetes: Code(s): E11.9 - Type 2 diabetes mellitus without complications Status: Chronic Assessment and Plan: follow Accu-Cheks on sliding-scale insulin Will continue to follow. Subjective Date/time seen: 06/03/21 16:43 Given fluctuations in creatinine and urine output, now currently on dobutamine and bumex gtt; mentation seems about the same/unchanged; no acute distress noted but his higher creatinine in the last 24 - 48 hours is of concern; no apparent distress noted. Exam Narrative: General: ill appearing male in NAD Heart: normal S1 and S2; no rub or gallop Lungs: decreased breath sounds at bases Abdomen: soft, nontender, nondistended, positive bowel sounds Extremities: 2+ edema throughout Skin: warm and intact Objective Data Vital Signs Vital Signs: Vital Signs Temp Pulse Resp BP Pulse Ox 06/03/21 16:00 36.8 C 68 12 118/66 100 06/03/21 14:00 63 06/03/21 12:04 77 144/67 H 06/03/21 12:00 36.6 C 69 18 142/74 H 100 06/03/21 11:01 75 18 06/03/21 10:00 72 06/03/21 09:37 76 06/03/21 08:49 72 18 06/03/21 08:40 72 18 06/03/21 08:00 36.9 C 71 12 144/67 H 100 06/03/21 05:38 66 06/03/21 04:50 78 06/03/21 04:00 36.6 C 77 18 159/73 H 98 06/03/21 03:33 77 18 06/03/21 03:25 76 18 06/03/21 01:48 72 06/03/21 00:25 80 20 06/03/21 00:11 83 22 H 06/02/21 23:39 88 22 H 99 06/02/21 23:28 37.1 C 84 22 H 132/63 99 06/02/21 21:44 92 06/02/21 20:55 92 06/02/21 20:48 82 20 06/02/21 20:47 81 96 06/02/21 20:42 81 20 06/02/21 20:00 37.1 C 82 20 152/66 H 96 Intake/Output Intake/Output: Intake & Output 05/31/21 06/01/21 06/02/21 06/03/21
[2021-06-03 16:44] LABS: Glucose Point of Care 97 mg/dl (65-105)
[2021-06-03 20:10] LABS: Glucose Point of Care 131 mg/dl (65-105)
[2021-06-03] MEDS: QUEtiapine FUMARATE 25 MG TABLET 50 MG PO (20:35)
[2021-06-04] VITALS (22 sets, daily range): BP systolic 135–153; BP diastolic 51–70; PULSE 67–87; RESP 18–24; TEMP 35.8–36.7; O2SAT 92–100
[2021-06-04] MEDS: IPRATROPIUM BR 0.02% INH SOLN 0.5 MG/2.5 ML VIAL INHALATION ×3 (08:02→20:35)
[2021-06-04] MEDS: ALBUTEROL SULFATE NEB 2.5 MG/0.5 ML INH INHALATION ×3 (08:02→20:35)
[2021-06-04 08:04] LABS: Glucose Point of Care 105 mg/dl (65-105)
[2021-06-04 08:12] LABS: Hematocrit 28.7 % (42.0-52.0); Hemoglobin 8.1 g/dL (14.0-18.0); Mean Corpuscular HGB Conc 28.2 g/dl (32-36); Mean Corpuscular Volume 92.3 fl (80-100); Mean Platelet Volume 10.2 fl (7.4-10.4); Platelet Count Result 228 k/mm3 (150-375); Red Blood Count 3.11 M/mm3 (4.6-6.20); Red Cell Distribution Width 16.3 % (11.5-14.5); White Blood Count 7.6 K/mm3 (4.5-10.0)
[2021-06-04] MEDS: hydrALAZINE HCL 25 MG TABLET 75 MG PO ×3 (08:16→17:29)
[2021-06-04] MEDS: GABAPENTIN 300 MG CAPSULE PO ×3 (08:16→17:29)
[2021-06-04] MEDS: ASPIRIN 81 MG CHEWABLE TABLET PO (08:16)
[2021-06-04] MEDS: ISOSORBIDE MONONITRATE 60 MG TAB.ER.24H PO (08:16)
[2021-06-04] MEDS: HEPARIN SODIUM 5,000 UNITS/ML VIAL 5000 UNITS SUB-Q ×2 (08:16→21:22)
[2021-06-04] MEDS: ATORVASTATIN 40 MG TABLET PO (08:16)
[2021-06-04] MEDS: METOPROLOL TARTRATE 50 MG TAB PO ×2 (08:21→21:23)
[2021-06-04 08:22] LABS: Anion Gap 3 mmol/L (8-16); Blood Urea Nitrogen 58 mg/dL (9-20); Calcium 8.1 mg/dL (8.4-10.2); Carbon Dioxide 33 mmol/L (22-30); Chloride 104 mmol/L (98-107); Estimated CRCL calculation 25 ml/min; Estimated Glomerular Filt Rate 18; Glucose 114 mg/dL (65-110); Potassium 4.7 mmol/L (3.4-5.0); Sodium 140 mmol/L (137-145)
--- NOTE | 2021-06-04 11:27 | PCDIET ---
Nutrition Follow-Up Complete: Nutrition Diagnosis: Inadequate oral intake related to altered mental status as evidenced by need for tube feedings. Nutrition Goal: Patient to meet estimated nutritional needs. Goal in progress. Average intake since 06/02/21 has been 53% of recorded meals on diabetic, easy to chew diet. Patient asking when lunch will be here (in [place]). Reports drinking Suplena which is provided twice per day. Recommend adding low sodium restriction, in addition to current diet. Last recorded weight is 94 kg which is stable with last review. Bowel Motility: Last documented BM on 06/02/21 x 1. Labs Reviewed: RBC (3.11), Hgb (8.1), Hct (28.7), Glu (114), BUN (58), Cr (3.6), Ca (8.1) Meds Noted: Albuterol, Lipitor, Glucotrol, Atrovent, Imdur, Bumetanide, Dobutamine, Apresoline, Lopressor, Seroquel Additional Notes: No change in wounds documented. Will continue to monitor with same goal. Nutrition Monitoring and Evaluation: Follow up in 5 days.
--- NOTE | 2021-06-04 12:02 | PM.PNCARD ---
Progress Note: A&P Assessment and Plan (1) Acute combined systolic and diastolic CHF, NYHA class 1: Code(s): I50.41 - Acute combined systolic (congestive) and diastolic (congestive) heart failure <DAVONTE Scott - Last Filed: 06/04/21 13:24> Status: Acute <DAVONTE Scott - Last Filed: 06/04/21 13:24> Assessment and Plan: Patient presents with acute on chronic systolic and diastolic heart failure, anasarca, pleural effusions. Respiratory status has improved with aggressive diuresis. He is on room air with minimal O2 per nasal cannula intermittently. On bumex drip at 0.125mg/hr - making good urine with this. Edema is improving. Continue bumex drip for now. 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
[2021-06-04 12:46] LABS: Glucose Point of Care 135 mg/dl (65-105)
[2021-06-04] MEDS: DOBUTamine 250 MG/D5W 250 ML 250 MG/250 ML BAG 15.72 MG IV CONT (13:01)
--- NOTE | 2021-06-04 13:06 | P.PNNP_ITS ---
Progress Note: A&P Assessment and Plan (1) GLENN (acute kidney injury): Code(s): N17.9 - Acute kidney failure, unspecified Status: Acute Assessment and Plan: * etiology is probably multifactorial, including diastolic dysfunction, and progression of disease * the patient may have severe pre renal component as well because of his nephrotic syndrome and low albumin. * good urine output with dobutamine and IV diuretics -- switched to bumex gtt * creatinine trend up again...somewhat concerning (2) Stage 3b chronic kidney disease: Code(s): N18.32 - Chronic kidney disease, stage 3b Status: Chronic Assessment and Plan: * suspect baseline creatinine 1.9 - 2.3mg/dl * due to biopsy proven diabetic nephropathy along with HTN/vascular disease * suspect creatinine/kidney function will always fluctuate depending on his volume status and necessity of diuretics to achieve euvolemia (3) Hallucinations: Code(s): R44.3 - Hallucinations, unspecified Status: Acute Assessment and Plan: * etiology? * CT of head negative * improved (4) Acute combined systolic and diastolic CHF, NYHA class 1: Code(s): I50.41 - Acute combined systolic (congestive) and diastolic (congestive) heart failure Status: Acute Assessment and Plan: * well known issues with several recent hospitalizations for this problems * some issues with decompensation related to compliance * Cardiology following * On diuretic gtt + dobutamine gtt at this time (5) Anasarca: Code(s): R60.1 - Generalized edema Status: Acute Assessment and Plan: * due to heart failure but his nephrotic range proteinuria/syndrome is also playing a role -- he is spilling over 14 g of protein per day. * s/p albumin supplementation * now on dobutamine and diuretics * may have to accept a higher creatinine to achieve euvolemia, however creatinine has improved with the dobutamine. (6) Hypertension: Code(s): I10 - Essential (primary) hypertension Status: Acute Assessment and Plan: * blood pressure is running 130-160 * He is on lisinopril and hydralazine. * follow trend of hemodynamics (7) Diabetes: Code(s): E11.9 - Type 2 diabetes mellitus without complications Status: Chronic Assessment and Plan: * follow Accu-Cheks * on sliding-scale insulin Will continue to follow. Subjective Date/time seen: 06/04/21 13:06 Mentation seems to wax and wane but does not appear any worse in the last 24 hours; admits to some shortness of breath at the time of my visit; despite dobutamine and bumex gtt, urine output has been suboptimal but seems a bit better in the last 24 hours. Exam Narrative: General: ill appearing male in NAD Heart: normal S1 and S2; no rub or gallop Lungs: decreased breath sounds at bases Abdomen: soft, nontender, nondistended, positive bowel sounds Extremities: 2+ edema throughout Skin: warm and intact Objective Data Vital Signs Vital Signs: Vital Signs Temp Pulse Resp BP Pulse Ox 06/04/21 12:59 72 06/04/21 12:00 36.2 C L 67 20 144/66 H 98 06/04/21 10:00 67 06/04/21 08:21 74 06/04/21 08:15 97 06/04/21 08:00 73 18 06/04/21 07:18 36.7 C 70 20 137/51 L 97 06/04/21 06:00 74 06/04/21 04:00 36.7 C 79 20 144/65 H 97
--- NOTE | 2021-06-04 13:06 | PM.PNNEP ---
Progress Note: A&P Assessment and Plan (1) GLENN (acute kidney injury): Code(s): N17.9 - Acute kidney failure, unspecified Status: Acute Assessment and Plan: etiology is probably multifactorial, including diastolic dysfunction, and progression of disease the patient may have severe pre renal component as well because of his nephrotic syndrome and low albumin. good urine output with dobutamine and IV diuretics -- switched to bumex gtt creatinine trend up again...somewhat concerning (2) Stage 3b chronic kidney disease: Code(s): N18.32 - Chronic kidney disease, stage 3b Status: Chronic Assessment and Plan: suspect baseline creatinine 1.9 - 2.3mg/dl due to biopsy proven diabetic nephropathy along with HTN/vascular disease suspect creatinine/kidney function will always fluctuate depending on his volume status and necessity of diuretics to achieve euvolemia (3) Hallucinations: Code(s): R44.3 - Hallucinations, unspecified Status: Acute Assessment and Plan: etiology? CT of head negative improved (4) Acute combined systolic and diastolic CHF, NYHA class 1: Code(s): I50.41 - Acute combined systolic (congestive) and diastolic (congestive) heart failure Status: Acute Assessment and Plan: well known issues with several recent hospitalizations for this problems some issues with decompensation related to compliance Cardiology following On diuretic gtt + dobutamine gtt at this time (5) Anasarca: Code(s): R60.1 - Generalized edema Status: Acute Assessment and Plan: due to heart failure but his nephrotic range proteinuria/syndrome is also playing a role -- he is spilling over 14 g of protein per day. s/p albumin supplementation now on dobutamine and diuretics may have to accept a higher creatinine to achieve euvolemia, however creatinine has improved with the dobutamine. (6) Hypertension: Code(s): I10 - Essential (primary) hypertension Status: Acute Assessment and Plan: blood pressure is running 130-160 He is on lisinopril and hydralazine. follow trend of hemodynamics (7) Diabetes: Code(s): E11.9 - Type 2 diabetes mellitus without complications Status: Chronic Assessment and Plan: follow Accu-Cheks on sliding-scale insulin Will continue to follow. Subjective Date/time seen: 06/04/21 13:06 Mentation seems to wax and wane but does not appear any worse in the last 24 hours; admits to some shortness of breath at the time of my visit; despite dobutamine and bumex gtt, urine output has been suboptimal but seems a bit better in the last 24 hours. Exam Narrative: General: ill appearing male in NAD Heart: normal S1 and S2; no rub or gallop Lungs: decreased breath sounds at bases Abdomen: soft, nontender, nondistended, positive bowel sounds Extremities: 2+ edema throughout Skin: warm and intact Objective Data Vital Signs Vital Signs: Vital Signs Temp Pulse Resp BP Pulse Ox 06/04/21 12:59 72 06/04/21 12:00 36.2 C L 67 20 144/66 H 98 06/04/21 10:00 67 06/04/21 08:21 74 06/04/21 08:15 97 06/04/21 08:00 73 18 06/04/21 07:18 36.7 C 70 20 137/51 L 97 06/04/21 06:00 74 06/04/21 04:00 36.7 C 79 20 144/65 H 97 06/04/21 02:00 79 06/04/21 00:00 77 20 97 06/03/21 23:10 36.6 C 82 20 148/63 H 97 06/03/21 22:00 82 06/03/21 21:20 78 06/03/21 20:35 78 06/03/21 20:10 74 18 06/03/21 20:05 74 97 06/03/21 20:02 72 18 06/03/21 20:00 36.6 C 80 18 117/68 97 06/03/21 18:00 65 06/03/21 16:00 36.8 C 68 12 118/66 100 06/03/21 14:00 63 Intake/Output Intake/Output: Intake & Output 06/01/21 06/02/21 06/03/21 06/04/21 23:59 23:59 23:59 23:59 Intake Total 3966 496 7893 978 Output Total 1700 871 487 0281 Balance -149 269 9523 422 Meds/Resul
[2021-06-04 17:01] LABS: Glucose Point of Care 144 mg/dl (65-105)
[2021-06-04 20:21] LABS: Glucose Point of Care 161 mg/dl (65-105)
[2021-06-04] MEDS: QUEtiapine FUMARATE 25 MG TABLET 50 MG PO (21:23)
--- NOTE | 2021-06-04 21:48 | PM.IMPN ---
Progress Note: A&P Assessment and Plan (1) Combined congestive systolic and diastolic heart failure: Qualifiers: Heart failure chronicity: acute on chronic Qualified Code(s): I50.43 - Acute on chronic combined systolic (congestive) and diastolic (congestive) heart failure Code(s): I50.40 - Unspecified combined systolic (congestive) and diastolic (congestive) heart failure Status: Acute Assessment and Plan: The patient has acute on chronic systolic and diastolic heart failure with anasarca and pleural effusions. He was initially started antibiotics for possible pneumonia however these were discontinued as patient clinical picture fits more with pleural effusion and associated atelectasis. He is on intermittent nasal cannula 2 L. he is currently on a Bumex drip and dobutamine drip with management per Cardiology. Patient's edema is improving in the is a good urine output with a negative fluid balance. (2) Acute kidney injury superimposed on chronic kidney disease: Code(s): N17.9 - Acute kidney failure, unspecified; N18.9 - Chronic kidney disease, unspecified Status: Acute Assessment and Plan: Etiology is due to diastolic dysfunction and progression of chronic disease complicated by active diuresis in the setting of nephrotic syndrome low albumin. The patient's baseline creatinine was 1.9-2.3 previously. Patient's creatinine is trending upward but he has had good urine output. Nephrology has been consulted. (3) Anasarca: Code(s): R60.1 - Generalized edema Status: Acute Assessment and Plan: Due to nephrotic syndrome. According to nephrology the patient's filling 14 g of protein a day. Patient has received a few min supplementation. (4) Insulin dependent diabetes mellitus: Status: Chronic Assessment and Plan: Glucoses within acceptable limits. Continue sliding scale insulin with Accu-Cheks a.c. HS and hypoglycemia protocol. Glipizide has been on hold for several days. Will discontinue. (5) Acute respiratory failure: Qualifiers: Respiratory failure complication: unspecified whether with hypoxia or hypercapnia Qualified Code(s): J96.00 - Acute respiratory failure, unspecified whether with hypoxia or hypercapnia Code(s): J96.00 - Acute respiratory failure, unspecified whether with hypoxia or hypercapnia Status: Acute Assessment and Plan: Due to CHF exacerbation. Patient is down to 2 L nasal cannula. Time Spent With Patient Time with patient: 15 - 25 minutes Subjective Date/time seen: 06/04/21 21:48 Interval history: The patient reports feeling tired. He remains short of breath. He has not been compliant with his BiPAP. The patient is noncompliant with his medications at home. Review of Systems Review of Systems: Review of systems limited due to language barrier and lack of patient cooperation Exam Narrative: PHYSICAL EXAM: WEIGHT 94 kg BMI 34.5 General: Chronically ill-appearing, appears older than stated age HEENT: Pupils are equal and reactive, positive conjunctival pallor Respiratory: Decreased breath sounds at the bases, accessory muscle use Cardiovascular: Murmur noted, weak right radial pulse, negative fluid balance 732 mL Gastrointestinal: Soft, distended, positive bowel sounds Skin: Copious amounts of flaking dry skin from the left lower extremity, small amount of oozing from the left lower extremity Musculoskeletal: 2+ pitting edema left lower extremity, [id number] amputation right lower extremity Neurological: Alert, moves extremities equally Psychiatric: Depressed mood, flat affect : Ramirez catheter in place Hematologic/lymphatic: No petechiae, no significant bruising Const: General: awake, ill appearing and tired appearing Nutritional Appearance: obese Limitations: behavioral limitations and language barrier Objective Data Vital Signs Vital Signs: Vital Signs - 24 hr 10
[2021-06-05] VITALS (29 sets, daily range): BP systolic 117–147; BP diastolic 43–88; PULSE 62–85; RESP 16–24; TEMP 36.1–36.5; O2SAT 90–100
--- NOTE | 2021-06-05 01:50 | ECG_ITS ---
Measurements Intervals [place] Rate: 70 P: 22 MI: 150 QRS: 0 QRSD: 89 T: 36 QT: 394 QTc: 427 Interpretive Statements SINUS RHYTHM BORDERLINE ST-T WAVE ABNORMALITY- INF/LAT LEADS BASELINE WANDER- V4-V5 BORDERLINE ECG Electronically Signed On 06-05-2021 19:56:19 CDT by Reji Dasilva D.O.
[2021-06-05] MEDS: ALBUTEROL SULFATE NEB 2.5 MG/0.5 ML INH INHALATION ×4 (02:28→20:58)
[2021-06-05] MEDS: IPRATROPIUM BR 0.02% INH SOLN 0.5 MG/2.5 ML VIAL INHALATION ×4 (02:28→20:58)
[2021-06-05] MEDS: DOBUTamine 250 MG/D5W 250 ML 250 MG/250 ML BAG 15.72 MG IV CONT ×2 (05:21→21:34)
[2021-06-05 06:35] LABS: Hemoglobin 8.1 g/dL (14.0-18.0); Mean Corpuscular HGB Conc 28.9 g/dl (32-36); Mean Corpuscular Hemoglobin 26.3 pg (26-34); Mean Corpuscular Volume 90.9 fl (80-100); Mean Platelet Volume 11.1 fl (7.4-10.4); Platelet Count Result 240 k/mm3 (150-375); Red Blood Count 3.08 M/mm3 (4.6-6.20); White Blood Count 8.2 K/mm3 (4.5-10.0)
[2021-06-05 06:58] LABS: Albumin Level 2.9 g/dL (3.5-5.1); Anion Gap 2 mmol/L (8-16); Blood Urea Nitrogen 56 mg/dL (9-20); Calcium 8.2 mg/dL (8.4-10.2); Carbon Dioxide 33 mmol/L (22-30); Chloride 104 mmol/L (98-107); Estimated CRCL calculation 25 ml/min; Estimated Glomerular Filt Rate 19; Glucose 100 mg/dL (65-110); Phosphorus 4.4 mg/dL (2.5-4.5); Potassium 4.7 mmol/L (3.4-5.0); Sodium 139 mmol/L (137-145)
[2021-06-05] MEDS: ISOSORBIDE MONONITRATE 60 MG TAB.ER.24H PO (09:42)
[2021-06-05] MEDS: METOPROLOL TARTRATE 50 MG TAB PO ×2 (09:42→21:38)
[2021-06-05] MEDS: hydrALAZINE HCL 25 MG TABLET 75 MG PO ×3 (09:42→16:46)
[2021-06-05] MEDS: ASPIRIN 81 MG CHEWABLE TABLET PO (09:42)
[2021-06-05] MEDS: GABAPENTIN 300 MG CAPSULE PO ×3 (09:42→16:46)
[2021-06-05] MEDS: ATORVASTATIN 40 MG TABLET PO (09:43)
[2021-06-05] MEDS: HEPARIN SODIUM 5,000 UNITS/ML VIAL 5000 UNITS SUB-Q ×2 (09:43→21:38)
[2021-06-05 10:14] LABS: Glucose Point of Care 92 mg/dl (65-105)
--- NOTE | 2021-06-05 11:11 | PM.PNCARD ---
Progress Note: A&P Assessment and Plan (1) Acute combined systolic and diastolic CHF, NYHA class 1: Code(s): I50.41 - Acute combined systolic (congestive) and diastolic (congestive) heart failure <DAVONTE Scott - Last Filed: 06/05/21 11:54> Status: Acute <DAVONTE Scott - Last Filed: 06/05/21 11:54> Assessment and Plan: Patient presents with acute on chronic systolic and diastolic heart failure, anasarca, pleural effusions. Respiratory status has improved with aggressive diuresis. He is on room air with minimal O2 per nasal cannula intermittently. On Bumex drip at 0.125mg/hr. Urine output marginal. Increase drip to 0.25mg/hr today. 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
[2021-06-05 12:36] LABS: Glucose Point of Care 91 mg/dl (65-105)
--- NOTE | 2021-06-05 12:40 | PM.PNNEP ---
Progress Note: A&P Assessment and Plan (1) GLENN (acute kidney injury): Code(s): N17.9 - Acute kidney failure, unspecified Status: Acute Assessment and Plan: etiology is probably multifactorial, including diastolic dysfunction, and progression of disease the patient may have severe pre renal component as well because of his nephrotic syndrome and low albumin urine output with dobutamine and IV diuretics noted and was declining so switched to bumex gtt - however, event with bumex gtt, urine output still subsoptimal creatinine trending up again...somewhat concerning (2) Stage 3b chronic kidney disease: Code(s): N18.32 - Chronic kidney disease, stage 3b Status: Chronic Assessment and Plan: suspect baseline creatinine 1.9 - 2.3mg/dl due to biopsy proven diabetic nephropathy along with HTN/vascular disease suspect creatinine/kidney function will always fluctuate depending on his volume status and necessity of diuretics to achieve euvolemia (3) Hallucinations: Code(s): R44.3 - Hallucinations, unspecified Status: Acute Assessment and Plan: etiology? 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 continue current therapy (5) Anasarca: Code(s): R60.1 - Generalized edema Status: Acute Assessment and Plan: due to heart failure but his nephrotic range proteinuria/syndrome is also playing a role -- he is spilling over 14 g of protein per day. s/p albumin supplementation now on dobutamine and diuretics may have to accept a higher creatinine to achieve euvolemia (6) Hypertension: Code(s): I10 - Essential (primary) hypertension Status: Acute Assessment and Plan: blood pressure is running 130-160 He is on lisinopril and hydralazine. follow trend of hemodynamics (7) Diabetes: Code(s): E11.9 - Type 2 diabetes mellitus without complications Status: Chronic Assessment and Plan: follow Accu-Cheks on sliding-scale insulin Will continue to follow. Subjective Date/time seen: 06/05/21 12:40 Remains confused but his respiratory status seems stable with some improvement in swelling/edema as well; better diuresis on the last 24 hours (but not very significant); no other acute issues/events overnight or earlier this morning. Exam Narrative: General: ill appearing male in NAD Heart: normal S1 and S2; no rub or gallop Lungs: decreased breath sounds at bases Abdomen: soft, nontender, nondistended, positive bowel sounds Extremities: 2+ edema throughout Skin: no rash Objective Data Vital Signs Vital Signs: Vital Signs Temp Pulse Resp BP Pulse Ox 06/05/21 12:37 94 06/05/21 12:00 36.5 C 75 24 H 133/63 92 06/05/21 10:00 81 06/05/21 08:16 75 18 06/05/21 08:11 92 06/05/21 08:07 78 18 06/05/21 08:00 36.3 C L 77 18 142/63 H 92 06/05/21 06:00 81 06/05/21 05:21 77 06/05/21 05:14 82 06/05/21 04:00 36.4 C 82 22 H 147/43 H 100 06/05/21 02:38 76 18 06/05/21 02:28 73 18 06/05/21 02:00 71 06/05/21 00:00 36.1 C L 76 16 135/53 L 90 06/04/21 22:00 86 06/04/21 21:23 87 06/04/21 20:48 87 18 06/04/21 20:38 84 18 92 06/04/21 20:00 82 06/04/21 19:25 35.9 C L 83 24 H 135/60 93 06/04/21 18:00 79 06/04/21 17:07 35.8 C L 74 22 H 153/70 H 100 06/04/21 16:00 74 06/04/21 14:00 70
--- NOTE | 2021-06-05 12:40 | P.PNNP_ITS ---
Progress Note: A&P Assessment and Plan (1) GLENN (acute kidney injury): Code(s): N17.9 - Acute kidney failure, unspecified Status: Acute Assessment and Plan: * etiology is probably multifactorial, including diastolic dysfunction, and progression of disease * the patient may have severe pre renal component as well because of his nephrotic syndrome and low albumin * urine output with dobutamine and IV diuretics noted and was declining so switched to bumex gtt - however, event with bumex gtt, urine output still subsoptimal * creatinine trending up again...somewhat concerning (2) Stage 3b chronic kidney disease: Code(s): N18.32 - Chronic kidney disease, stage 3b Status: Chronic Assessment and Plan: * suspect baseline creatinine 1.9 - 2.3mg/dl * due to biopsy proven diabetic nephropathy along with HTN/vascular disease * suspect creatinine/kidney function will always fluctuate depending on his volume status and necessity of diuretics to achieve euvolemia (3) Hallucinations: Code(s): R44.3 - Hallucinations, unspecified Status: Acute Assessment and Plan: * etiology? 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 * continue current therapy (5) Anasarca: Code(s): R60.1 - Generalized edema Status: Acute Assessment and Plan: * due to heart failure but his nephrotic range proteinuria/syndrome is also playing a role -- he is spilling over 14 g of protein per day. * s/p albumin supplementation * now on dobutamine and diuretics * may have to accept a higher creatinine to achieve euvolemia (6) Hypertension: Code(s): I10 - Essential (primary) hypertension Status: Acute Assessment and Plan: * blood pressure is running 130-160 * He is on lisinopril and hydralazine. * follow trend of hemodynamics (7) Diabetes: Code(s): E11.9 - Type 2 diabetes mellitus without complications Status: Chronic Assessment and Plan: * follow Accu-Cheks * on sliding-scale insulin Will continue to follow. Subjective Date/time seen: 06/05/21 12:40 Remains confused but his respiratory status seems stable with some improvement in swelling/edema as well; better diuresis on the last 24 hours (but not very significant); no other acute issues/events overnight or earlier this morning. Exam Narrative: General: ill appearing male in NAD Heart: normal S1 and S2; no rub or gallop Lungs: decreased breath sounds at bases Abdomen: soft, nontender, nondistended, positive bowel sounds Extremities: 2+ edema throughout Skin: no rash Objective Data Vital Signs Vital Signs: Vital Signs Temp Pulse Resp BP Pulse Ox 06/05/21 12:37 94 06/05/21 12:00 36.5 C 75 24 H 133/63 92 06/05/21 10:00 81 06/05/21 08:16 75 18 06/05/21 08:11 92 06/05/21 08:07 78 18 06/05
--- NOTE | 2021-06-05 16:38 | PM.IMPN ---
Progress Note: A&P Assessment and Plan (1) Combined congestive systolic and diastolic heart failure: Qualifiers: Heart failure chronicity: acute on chronic Qualified Code(s): I50.43 - Acute on chronic combined systolic (congestive) and diastolic (congestive) heart failure Code(s): I50.40 - Unspecified combined systolic (congestive) and diastolic (congestive) heart failure Status: Acute Assessment and Plan: The patient has acute on chronic systolic and diastolic heart failure with anasarca and pleural effusions. He was initially started antibiotics for possible pneumonia however these were discontinued as patient clinical picture fits more with pleural effusion and associated atelectasis. He is on intermittent nasal cannula 2 L. he is currently on a Bumex drip and dobutamine drip with management per Cardiology. Dobutamine drip increased from 0.125 to 0.25 mg/hr per cardiology recommendations Patient's edema is improving in the is a good urine output with a negative fluid balance. (2) Acute kidney injury superimposed on chronic kidney disease: Code(s): N17.9 - Acute kidney failure, unspecified; N18.9 - Chronic kidney disease, unspecified Status: Acute Assessment and Plan: Etiology is due to diastolic dysfunction and natural history of progressive chronic kidney disease complicated by active diuresis in the setting of nephrotic syndrome low albumin. The patient's baseline creatinine was 1.9-2.3 previously. Patient's creatinine is trending upward but he has had good urine output. Nephrology has been consulted. (3) Anasarca: Code(s): R60.1 - Generalized edema Status: Acute Assessment and Plan: Due to nephrotic syndrome in the setting of biospy proven diabetic nephropathy. According to nephrology the patient's filling 14 g of protein a day. (4) Insulin dependent diabetes mellitus: Status: Chronic Assessment and Plan: Glucoses within acceptable limits. Continue sliding scale insulin with Accu-Cheks a.c. HS and hypoglycemia protocol. Glipizide has been on hold for several days. Will discontinue. (5) Acute respiratory failure: Qualifiers: Respiratory failure complication: unspecified whether with hypoxia or hypercapnia Qualified Code(s): J96.00 - Acute respiratory failure, unspecified whether with hypoxia or hypercapnia Code(s): J96.00 - Acute respiratory failure, unspecified whether with hypoxia or hypercapnia Status: Acute Assessment and Plan: Due to CHF exacerbation. Patient is down to 2 L nasal cannula. (6) Cellulitis of leg: Code(s): L03.119 - Cellulitis of unspecified part of limb Status: Acute Assessment and Plan: currently no fever or leucocytosis. Monitor clinically. (7) Urinary retention: Code(s): R33.9 - Retention of urine, unspecified Status: Acute Assessment and Plan: Patient status post catheter placement. (8) CAD (coronary artery disease): Code(s): I25.10 - Atherosclerotic heart disease of [place] coronary artery without angina pectoris Status: Acute Assessment and Plan: History of coronary artery disease, status post [place]. Continue Lipitor 40 mg p.o. q.h.s. plus Imdur 60 mg p.o. daily plus metoprolol 50 mg p.o. b.i.d. plus aspirin 81 mg p.o. daily (9) Hypertension: Code(s): I10 - Essential (primary) hypertension Status: Acute Assessment and Plan: Currently on bumetanide drip in addition to hydralazine 75 mg p.o. t.i.d. plus Imdur 60 mg p.o. daily plus lisinopril 20 mg p.o. daily plus metoprolol 50 mg p.o. b.i.d. BP moderately controlled . 133/63 today. Subjective Date/time seen: 06/05/21 11:30 This is 45-year-old gentleman with past medical history significant for type 2 diabetes mellitus insulin dependent, congestive heart failure, hypoxic respiratory failure, right BKA, left diabetic foot, chronic nonhealing ulcer of
[2021-06-05 17:20] LABS: Glucose Point of Care 113 mg/dl (65-105)
[2021-06-05 20:47] LABS: Glucose Point of Care 117 mg/dl (65-105)
[2021-06-05] MEDS: QUEtiapine FUMARATE 25 MG TABLET 50 MG PO (21:37)
[2021-06-06] VITALS (17 sets, daily range): BP systolic 112–148; BP diastolic 65–103; PULSE 52–79; RESP 18–24; TEMP 36.2–36.6; O2SAT 90–100
[2021-06-06] MEDS: ALBUTEROL SULFATE NEB 2.5 MG/0.5 ML INH INHALATION ×2 (08:57→19:44)
[2021-06-06] MEDS: IPRATROPIUM BR 0.02% INH SOLN 0.5 MG/2.5 ML VIAL INHALATION ×2 (08:58→19:44)
[2021-06-06] MEDS: ACETAMINOPHEN 500 MG TABLET PO (09:13)
[2021-06-06] MEDS: hydrALAZINE HCL 25 MG TABLET 75 MG PO ×3 (09:13→17:51)
[2021-06-06] MEDS: ISOSORBIDE MONONITRATE 60 MG TAB.ER.24H PO (09:14)
[2021-06-06] MEDS: GABAPENTIN 300 MG CAPSULE PO ×3 (09:14→17:52)
[2021-06-06] MEDS: ATORVASTATIN 40 MG TABLET PO (09:14)
[2021-06-06] MEDS: METOPROLOL TARTRATE 50 MG TAB PO ×2 (09:14→21:22)
[2021-06-06] MEDS: ASPIRIN 81 MG CHEWABLE TABLET PO (09:14)
[2021-06-06] MEDS: HEPARIN SODIUM 5,000 UNITS/ML VIAL 5000 UNITS SUB-Q ×2 (09:15→21:23)
[2021-06-06 09:24] LABS: Glucose Point of Care 90 mg/dl (65-105)
--- NOTE | 2021-06-06 11:32 | PM.PNCARD ---
Progress Note: A&P Additional Plan 45-year-old man with: Presumed diagnosis of coronary disease with ischemic LV dysfunction and significant chronic kidney disease. Also has significant language/social barriers in terms of being able to be compliant with medication out of the hospital. The patient on examination at this point has no real evidence of persistent volume overload. I do not believe there is much benefit therefore and continuing intravenous I inotropic support any longer I will discontinue the dobutamine and transition him back to oral Bumex regimen. Long-term prognosis is obviously very poor in this situation. Blayne Quinonez MD [facility] Subjective Date/time seen: Date of service: 06/06/21 11:32 Interval history: Follow-up for acute on chronic CHF, HTN, nonsustained ventricular tachycardia, presumed CAD. Encephalopathic. Date of service 06/04/2021: Less confused today but remains disoriented. Complaining that he is hungry. Does endorse some shortness of breath. He has oxygen available but the nasal prongs are on his forehead and he does not want to move them. Date of service 06/05/2021: No complaints this morning. He denies chest pain, shortness of breath. Breathing comfortably on room air at the time of exam. Remains confused. Date of service 06/06/2021: Patient resting comfortably sleeping flat in bed when I entered the room no complaints upon awakening. No oxygen requirements. Remains confused. Has been receiving intravenous dobutamine as well as Bumex infusion now for 12 days. Exam Narrative: Ill-appearing male. Alert but not oriented. Const: General: no acute distress, alert, confusion and ill appearing Orientation/consciousness: confusion Limitations: altered mental status and physical limitations Other: R BKA HENMT: Head: normal to inspection General nose exam: no epistaxis Eyes: Sclera: sclerae normal EOM: EOMs intact bilaterally Neck: Neck: supple Thyroid: thyroid normal Carotids: no bruits Lymphatic: lymphadenopathy not noted Chest: Chest palpation & inspection: normal inspection of the chest Resp: Effort & Inspection: normal respiratory effort Auscultation: not clear to auscultation bilaterally, crackles and diminished lung sounds Other: Crackles Long-Term up bilaterally Cardio: Rate: regular rate Rhythm: regular rhythm Heart sounds: no murmurs GI: Inspection: distended Auscultation: normal bowel sounds Other: Some edema/ascites remains in abdomen but is much improved. Urinary Catheter: Urinary Catheter: patent and draining and urine clear Skin: General skin exam: No normal color (Hyperpigmentation and scaling of lower extremity) and erythema Wounds: wounds noted (Hyperpigmentation, chronic skin changes, some weeping/blistering to L LE ) Other: Chronic skin changes and hyperpigmentation of the left lower extremity. Neuro: General: confusion Cognition (Neuro): abnormal cognition (Appears confused) Speech: No normal speech (Mumbling but responsive) Other: Not following commands. Extrem: General: edema and pedal edema Other: Worsening moderate edema of arms, legs, abdomen, probable ascites Psych: Mental Status: mental status grossly abnormal Affect: Indifferent affect present Objective Data Vital Signs Vital Signs: Vital Signs - 24 hr 06/05/21 12:00 06/05/21 12:37 06/05/21 13:10 Temperature 36.5 C Pulse Rate 75 80 Respiratory Rate 24 H Blood Pressure 133/63 Pulse Oximetry 92 94 06/05/21 14:00 06/05/21 14:25 06/05/21 14:27 Temperature Pulse Rate 65 69 65 Respiratory Rate 18 Blood Pressure Pulse Oximetry 06/05/21 14:32 06/05/21 16:00 06/05/21 18:00 Temperature 36.5 C Pulse Rate 65 73 75 Respiratory Rate 18 18 Blood Pressure 135/88 Pulse Oximetry 96 06/05/21 18:45 06/05/21 20:00 06/05/21 20:58 Temperature 36.5 C Pulse Rate 74 81 62 Respiratory Rate 16 18 Blood Pressure 117/59 L Pulse Oximetry
--- NOTE | 2021-06-06 12:39 | P.PNNP_ITS ---
Progress Note: A&P Assessment and Plan (1) GLENN (acute kidney injury): Code(s): N17.9 - Acute kidney failure, unspecified Status: Acute Assessment and Plan: * etiology is probably multifactorial, including diastolic dysfunction, and progression of disease * the patient may have severe pre renal component as well because of his nephrotic syndrome and low albumin * creatinine trending up again...somewhat concerning * transitioning off dobutamine/bumx gtt.... * follow trend of labs and UOP (2) Stage 3b chronic kidney disease: Code(s): N18.32 - Chronic kidney disease, stage 3b Status: Chronic Assessment and Plan: * suspect baseline creatinine 1.9 - 2.3mg/dl * due to biopsy proven diabetic nephropathy along with HTN/vascular disease * suspect creatinine/kidney function will always fluctuate depending on his volume status and necessity of diuretics to achieve euvolemia (3) Hallucinations: Code(s): R44.3 - Hallucinations, unspecified Status: Acute Assessment and Plan: * etiology? * CT of head negative * improved (4) Acute combined systolic and diastolic CHF, NYHA class 1: Code(s): I50.41 - Acute combined systolic (congestive) and diastolic (congestive) heart failure Status: Acute Assessment and Plan: * well known issues with several recent hospitalizations for this problems * some issues with decompensation related to compliance * Cardiology following * transitioning off diuretic gtt + dobutamine gtt at this time -- this was a temporary solution anyway and not sure what ideal senior care plan really is... * resume oral bumex (5) Anasarca: Code(s): R60.1 - Generalized edema Status: Acute Assessment and Plan: * due to heart failure but his nephrotic range proteinuria/syndrome is also playing a role -- he is spilling over 14 g of protein per day. * s/p albumin supplementation * off dobutamine/diuretic gtt * may have to accept a higher creatinine to achieve euvolemia (6) Hypertension: Code(s): I10 - Essential (primary) hypertension Status: Acute Assessment and Plan: * blood pressure is running 130-160 * He is on lisinopril and hydralazine. * follow trend of hemodynamics (7) Diabetes: Code(s): E11.9 - Type 2 diabetes mellitus without complications Status: Chronic Assessment and Plan: * follow Accu-Cheks * on sliding-scale insulin Will continue to follow. Subjective Date/time seen: 06/06/21 12:39 Remains confused at the time of my visit; respiratory and volume status seems to be relatively stable (off oxygen and breathing stable both supine and in seated position); dobutamine to be discontinued and bumex gtt transitioned to oral; no apparent distress noted. Exam Narrative: General: ill appearing male in NAD Heart: normal S1 and S2; no rub or gallop Lungs: decreased breath sounds at bases Abdomen: soft, nontender, nondistended, positive bowel sounds Extremities: 1 - 2+ edema throughout Skin: no nodules Objective Data Vital Signs Vital Signs: Vital Signs Temp Pulse Resp BP Pulse Ox 06/06/21 12:00 36.2 C L 61 20 132/80 97 06/06/21 10:00 73 06/06/21 09:14 77 06/06/21 08:00 36.4 C L 72 24 H 148/74 H 90 06/06/21 06:00 77 06/06/21 04:00 36.5 C 77 20 142/65 H 91 06/06/21 02:00
--- NOTE | 2021-06-06 12:39 | PM.PNNEP ---
Progress Note: A&P Assessment and Plan (1) GLENN (acute kidney injury): Code(s): N17.9 - Acute kidney failure, unspecified Status: Acute Assessment and Plan: etiology is probably multifactorial, including diastolic dysfunction, and progression of disease the patient may have severe pre renal component as well because of his nephrotic syndrome and low albumin creatinine trending up again...somewhat concerning transitioning off dobutamine/bumx gtt.... follow trend of labs and UOP (2) Stage 3b chronic kidney disease: Code(s): N18.32 - Chronic kidney disease, stage 3b Status: Chronic Assessment and Plan: suspect baseline creatinine 1.9 - 2.3mg/dl due to biopsy proven diabetic nephropathy along with HTN/vascular disease suspect creatinine/kidney function will always fluctuate depending on his volume status and necessity of diuretics to achieve euvolemia (3) Hallucinations: Code(s): R44.3 - Hallucinations, unspecified Status: Acute Assessment and Plan: etiology? 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 resume oral bumex (5) Anasarca: Code(s): R60.1 - Generalized edema Status: Acute Assessment and Plan: due to heart failure but his nephrotic range proteinuria/syndrome is also playing a role -- he is spilling over 14 g of protein per day. s/p albumin supplementation off dobutamine/diuretic gtt may have to accept a higher creatinine to achieve euvolemia (6) Hypertension: Code(s): I10 - Essential (primary) hypertension Status: Acute Assessment and Plan: blood pressure is running 130-160 He is on lisinopril and hydralazine. follow trend of hemodynamics (7) Diabetes: Code(s): E11.9 - Type 2 diabetes mellitus without complications Status: Chronic Assessment and Plan: follow Accu-Cheks on sliding-scale insulin Will continue to follow. Subjective Date/time seen: 06/06/21 12:39 Remains confused at the time of my visit; respiratory and volume status seems to be relatively stable (off oxygen and breathing stable both supine and in seated position); dobutamine to be discontinued and bumex gtt transitioned to oral; no apparent distress noted. Exam Narrative: General: ill appearing male in NAD Heart: normal S1 and S2; no rub or gallop Lungs: decreased breath sounds at bases Abdomen: soft, nontender, nondistended, positive bowel sounds Extremities: 1 - 2+ edema throughout Skin: no nodules Objective Data Vital Signs Vital Signs: Vital Signs Temp Pulse Resp BP Pulse Ox 06/06/21 12:00 36.2 C L 61 20 132/80 97 06/06/21 10:00 73 06/06/21 09:14 77 06/06/21 08:00 36.4 C L 72 24 H 148/74 H 90 06/06/21 06:00 77 06/06/21 04:00 36.5 C 77 20 142/65 H 91 06/06/21 02:00 77 06/06/21 00:00 36.2 C L 76 20 112/90 92 06/05/21 22:06 85 06/05/21 21:38 82 06/05/21 21:34 82 06/05/21 21:07 64 18 06/05/21 20:58 62 18 94 06/05/21 20:00 81 91 06/05/21 18:45 36.5 C 74 16 117/59 L 91 06/05/21 18:00 75 06/05/21 16:00 36.5 C 73 18 135/88 96 Intake/Output Intake/Output: Intake & Output 06/03/21 06/04/21 06/05/21 06/06/21 23:59 23:59 23:59 23:59 Intake Total 1416 1218 1760 473 Output Total 400 1950 1200 550 Balance 0180 -945 560 -07 Meds/Results Medications: Active Medications Generic Nam
--- NOTE | 2021-06-06 12:50 | PM.IMPN ---
Progress Note: A&P Assessment and Plan (1) Combined congestive systolic and diastolic heart failure: Qualifiers: Heart failure chronicity: acute on chronic Qualified Code(s): I50.43 - Acute on chronic combined systolic (congestive) and diastolic (congestive) heart failure Code(s): I50.40 - Unspecified combined systolic (congestive) and diastolic (congestive) heart failure Status: Acute Assessment and Plan: The patient has acute on chronic systolic and diastolic heart failure with anasarca and pleural effusions. He was initially started antibiotics for possible pneumonia however these were discontinued as patient clinical picture fits more with pleural effusion and associated atelectasis. He is on intermittent nasal cannula 2 L. he is currently on a Bumex drip and dobutamine drip with management per Cardiology. Dobutamine drip increased from 0.125 to 0.25 mg/hr per cardiology recommendations Patient's edema is improving in the is a good urine output with a negative fluid balance. Dobutamine is being tapered off today per cardiology recommendations. (2) Acute kidney injury superimposed on chronic kidney disease: Code(s): N17.9 - Acute kidney failure, unspecified; N18.9 - Chronic kidney disease, unspecified Status: Acute Assessment and Plan: Etiology is due to diastolic dysfunction and natural history of progressive chronic kidney disease complicated by active diuresis in the setting of nephrotic syndrome low albumin. The patient's baseline creatinine was 1.9-2.3 previously. Patient's creatinine has plateaued at 3.5 today but he has had good urine output. Nephrology has been consulted. (3) Anasarca: Code(s): R60.1 - Generalized edema Status: Acute Assessment and Plan: Due to nephrotic syndrome in the setting of biospy proven diabetic nephropathy. According to nephrology the patient's filling 14 g of protein a day. Patient 's fluid status is improving. Resume bumex. (4) Insulin dependent diabetes mellitus: Status: Chronic Assessment and Plan: Glucoses within acceptable limits. Continue sliding scale insulin with Accu-Cheks a.c. HS and hypoglycemia protocol. Accu-checks in the 90-117 range. (5) Acute respiratory failure: Qualifiers: Respiratory failure complication: unspecified whether with hypoxia or hypercapnia Qualified Code(s): J96.00 - Acute respiratory failure, unspecified whether with hypoxia or hypercapnia Code(s): J96.00 - Acute respiratory failure, unspecified whether with hypoxia or hypercapnia Status: Acute Assessment and Plan: Due to CHF exacerbation. Patient is down to 2 L nasal cannula. (6) Cellulitis of leg: Code(s): L03.119 - Cellulitis of unspecified part of limb Status: Acute Assessment and Plan: currently no fever or leucocytosis. start local antibiotic with mupirocin. Monitor clinically. (7) Urinary retention: Code(s): R33.9 - Retention of urine, unspecified Status: Acute Assessment and Plan: Patient status post catheter placement. (8) CAD (coronary artery disease): Code(s): I25.10 - Atherosclerotic heart disease of [place] coronary artery without angina pectoris Status: Acute Assessment and Plan: History of coronary artery disease, status post [place]. Continue Lipitor 40 mg p.o. q.h.s. plus Imdur 60 mg p.o. daily plus metoprolol 50 mg p.o. b.i.d. plus aspirin 81 mg p.o. daily (9) Hypertension: Code(s): I10 - Essential (primary) hypertension Status: Acute Assessment and Plan: Started bumetanide 2 mg PO daily in addition to hydralazine 75 mg p.o. t.i.d. plus Imdur 60 mg p.o. daily plus lisinopril 20 mg p.o. daily plus metoprolol 50 mg p.o. b.i.d. BP moderately controlled . 148/74 today. (10) Encephalopathy: Code(s): G93.40 - Encephalopathy, unspecified Status: Acute Assessment and Plan: Matt
[2021-06-06 13:20] LABS: Glucose Point of Care 90 mg/dl (65-105)
[2021-06-06 17:01] LABS: Glucose Point of Care 115 mg/dl (65-105)
[2021-06-06 20:30] LABS: Glucose Point of Care 126 mg/dl (65-105)
[2021-06-06] MEDS: CEPHALEXIN 500 MG CAPSULE PO (21:22)
[2021-06-06] MEDS: QUEtiapine FUMARATE 25 MG TABLET 50 MG PO (21:23)
[2021-06-06] MEDS: MUPIROCIN 2% OINT 22 GM TUBE 1 APPLIC TOPICAL (21:24)
--- NOTE | 2021-06-06 23:00 | PC.NURSE ---
Patient agitated, throwing heart monitor, hahaving visual and auditory hallucinations, refusing vital signs. Dr Tamayo in at bedside to evaluate. Orders received
[2021-06-06] MEDS: LORazepam INJ (*CRX) 2 MG/ML VIAL 1 MG IM (23:27)
[2021-06-06] MEDS: HALOPERIDOL LACTATE 5 MG/ML VIAL IM (23:27)
[2021-06-07] VITALS (27 sets, daily range): BP systolic 130–169; BP diastolic 55–99; PULSE 55–99; RESP 14–22; TEMP 36.3–36.6; O2SAT 91–100
[2021-06-07] MEDS: IPRATROPIUM BR 0.02% INH SOLN 0.5 MG/2.5 ML VIAL INHALATION ×4 (02:00→20:32)
[2021-06-07] MEDS: ALBUTEROL SULFATE NEB 2.5 MG/0.5 ML INH INHALATION ×4 (02:00→20:32)
[2021-06-07 04:56] LABS: Basophils Absolute Auto 0.1 K/mm3 (0.0-0.1); Basophils Percent Auto 0.8 % (0.2-1.2); Eosinophils Absolute Auto 0.5 K/mm3 (0-0.3); Eosinophils Percent Auto 7.9 % (0-4.4); Hematocrit 28.1 % (42.0-52.0); Hemoglobin 7.9 g/dL (14.0-18.0); Immature Granulocyte Absolute 0.02 K/mm3 (0.00-0.031); Immature Granulocyte Percent A 0.3 % (0-0.5); Lymphocytes Absolute Auto 0.67 K/mm3 (0.9-3.2); Lymphocytes Percent Auto 11.3 % (18.3-44.2); Mean Corpuscular HGB Conc 28.1 g/dl (32-36); Mean Corpuscular Hemoglobin 26.2 pg (26-34); Mean Platelet Volume 11.2 fl (7.4-10.4); Monocytes Absolute Auto 0.4 K/mm3 (0.1-0.6); Monocytes Percent Auto 6.7 % (2.6-8.5); Neutrophils Absolute Auto 4.3 K/mm3 (1.3-6.7); Platelet Count Result 209 k/mm3 (150-375); Red Blood Count 3.02 M/mm3 (4.6-6.20)
[2021-06-07 05:09] LABS: Anion Gap 7 mmol/L (8-16); Blood Urea Nitrogen 63 mg/dL (9-20); Calcium 8.3 mg/dL (8.4-10.2); Carbon Dioxide 26 mmol/L (22-30); Chloride 105 mmol/L (98-107); Estimated CRCL calculation 26 ml/min; Estimated Glomerular Filt Rate 20; Glucose 89 mg/dL (65-110); Sodium 138 mmol/L (137-145)
[2021-06-07 05:22] LABS: Anisocytosis 1+ (NORMAL); Burr Cells 1+ (NORMAL); Platelet Estimate Adequate (Adequate)
[2021-06-07 09:10] LABS: Glucose Point of Care 74 mg/dl (65-105)
[2021-06-07] MEDS: DEXTROSE 50% 25 GM/50 ML SYRINGE IV PUSH ×2 (09:50→18:04)
[2021-06-07] MEDS: MUPIROCIN 2% OINT 22 GM TUBE 1 APPLIC TOPICAL ×2 (09:51→20:14)
[2021-06-07] MEDS: HEPARIN SODIUM 5,000 UNITS/ML VIAL 5000 UNITS SUB-Q ×2 (09:52→20:13)
--- NOTE | 2021-06-07 10:36 | P.PNNP_ITS ---
Progress Note: A&P Assessment and Plan (1) GLENN (acute kidney injury): Code(s): N17.9 - Acute kidney failure, unspecified Status: Acute Assessment and Plan: * etiology is probably multifactorial, including diastolic dysfunction, and progression of disease * the patient has severe pre renal component as well because of his nephrotic syndrome and low albumin * creatinine trending up again...disease progression(?) * transitioned to oral bumex * follow trend of labs and UOP (2) Stage 3b chronic kidney disease: Code(s): N18.32 - Chronic kidney disease, stage 3b Status: Chronic Assessment and Plan: * suspect baseline creatinine 1.9 - 2.3mg/dl * due to biopsy proven diabetic nephropathy along with HTN/vascular disease * suspect creatinine/kidney function will always fluctuate depending on his volume status and necessity of diuretics to achieve euvolemia (3) Hallucinations: Code(s): R44.3 - Hallucinations, unspecified Status: Acute Assessment and Plan: * etiology? * CT of head negative * improved but confusion persists (4) Acute combined systolic and diastolic CHF, NYHA class 1: Code(s): I50.41 - Acute combined systolic (congestive) and diastolic (congestive) heart failure Status: Acute Assessment and Plan: * well known issues with several recent hospitalizations for this problems * some issues with decompensation related to compliance * Cardiology following * resume oral bumex and off dobutamine gtt (5) Anasarca: Code(s): R60.1 - Generalized edema Status: Acute Assessment and Plan: * due to heart failure but his nephrotic range proteinuria/syndrome is also playing a role -- he is spilling over 14 g of protein per day. * s/p albumin supplementation * off dobutamine/diuretic gtt * may have to accept a higher creatinine to achieve euvolemia (6) Hypertension: Code(s): I10 - Essential (primary) hypertension Status: Acute Assessment and Plan: * blood pressure is running 130-160 * on lisinopril and hydralazine. * follow trend of hemodynamics (7) Diabetes: Code(s): E11.9 - Type 2 diabetes mellitus without complications Status: Chronic Assessment and Plan: * follow Accu-Cheks * on sliding-scale insulin Will continue to follow. Subjective Date/time seen: 06/07/21 10:36 Apparently some issues with agitation and combative behavior overnight that required medications for sedation; appears to be resting comfortably at the time of my visit; breathing/respiratory status seems stable; no apparent distress noted at this time. Exam Narrative: General: ill appearing male in NAD Heart: normal S1 and S2; no rub Lungs: decreased breath sounds at bases Abdomen: soft, nontender, nondistended, positive bowel sounds Extremities: 1 - 2+ edema throughout Skin: warm and dry Objective Data Vital Signs Vital Signs: Vital Signs Temp Pulse Resp BP Pulse Ox 06/07/21 08:23 60 20 06/07/21 08:20 58 L 16 139/73 100 06/07/21 08:16 98 06/07/21 08:14 62 20 06/07/21 08:00 60 100 06/07/21 06:56 36.3 C L 62 14 141/80 H 92 06/07/21 06:00 59 L 06/07/21 04:00 36.3 C L 55 L 20 149/72 H 91 06/07/21 02:09 56 L 20 06/07/21 02:00 58 L 20 06/07/21 00:00 3
--- NOTE | 2021-06-07 10:36 | PM.PNNEP ---
Progress Note: A&P Assessment and Plan (1) GLENN (acute kidney injury): Code(s): N17.9 - Acute kidney failure, unspecified Status: Acute Assessment and Plan: etiology is probably multifactorial, including diastolic dysfunction, and progression of disease the patient has severe pre renal component as well because of his nephrotic syndrome and low albumin creatinine trending up again...disease progression(?) transitioned to oral bumex follow trend of labs and UOP (2) Stage 3b chronic kidney disease: Code(s): N18.32 - Chronic kidney disease, stage 3b Status: Chronic Assessment and Plan: suspect baseline creatinine 1.9 - 2.3mg/dl due to biopsy proven diabetic nephropathy along with HTN/vascular disease suspect creatinine/kidney function will always fluctuate depending on his volume status and necessity of diuretics to achieve euvolemia (3) Hallucinations: Code(s): R44.3 - Hallucinations, unspecified Status: Acute Assessment and Plan: etiology? CT of head negative improved but confusion persists (4) Acute combined systolic and diastolic CHF, NYHA class 1: Code(s): I50.41 - Acute combined systolic (congestive) and diastolic (congestive) heart failure Status: Acute Assessment and Plan: well known issues with several recent hospitalizations for this problems some issues with decompensation related to compliance Cardiology following resume oral bumex and off dobutamine gtt (5) Anasarca: Code(s): R60.1 - Generalized edema Status: Acute Assessment and Plan: due to heart failure but his nephrotic range proteinuria/syndrome is also playing a role -- he is spilling over 14 g of protein per day. s/p albumin supplementation off dobutamine/diuretic gtt may have to accept a higher creatinine to achieve euvolemia (6) Hypertension: Code(s): I10 - Essential (primary) hypertension Status: Acute Assessment and Plan: blood pressure is running 130-160 on lisinopril and hydralazine. follow trend of hemodynamics (7) Diabetes: Code(s): E11.9 - Type 2 diabetes mellitus without complications Status: Chronic Assessment and Plan: follow Accu-Cheks on sliding-scale insulin Will continue to follow. Subjective Date/time seen: 06/07/21 10:36 Apparently some issues with agitation and combative behavior overnight that required medications for sedation; appears to be resting comfortably at the time of my visit; breathing/respiratory status seems stable; no apparent distress noted at this time. Exam Narrative: General: ill appearing male in NAD Heart: normal S1 and S2; no rub Lungs: decreased breath sounds at bases Abdomen: soft, nontender, nondistended, positive bowel sounds Extremities: 1 - 2+ edema throughout Skin: warm and dry Objective Data Vital Signs Vital Signs: Vital Signs Temp Pulse Resp BP Pulse Ox 06/07/21 08:23 60 20 06/07/21 08:20 58 L 16 139/73 100 06/07/21 08:16 98 06/07/21 08:14 62 20 06/07/21 08:00 60 100 06/07/21 06:56 36.3 C L 62 14 141/80 H 92 06/07/21 06:00 59 L 06/07/21 04:00 36.3 C L 55 L 20 149/72 H 91 06/07/21 02:09 56 L 20 06/07/21 02:00 58 L 20 06/07/21 00:00 36.4 C 66 22 H 146/66 H 92 06/06/21 22:00 65 06/06/21 21:22 64 06/06/21 20:00 36.6 C 62 19 141/103 H 100 06/06/21 19:53 62 20 98 06/06/21 19:45 63 20 98 06/06/21 18:00 56 L 06/06/21 16:00 36.2 C L 52 L 24 H 130/72 97 06/06/21 14:00 56 L 06/06/21 13:40 61 18 06/06/21 12:00 36.2 C L 61 20 132/80 97 Intake/Output Intake/Output: Intake & Output 06/04/21 06/05/21 06/06/21 06/07/21 23:59 23:59 23:59 23:59 Intake Total 1218 1760 473 Output Total 1950 1200 1100 250 Balance -582 125 -685 -050 Meds/Results Medications: Active Medications Generic
--- NOTE | 2021-06-07 11:42 | PM.PNCARD ---
Progress Note: A&P Additional Plan 45-year-old man with: Presumed coronary artery disease ischemic cardiomyopathy with frequent admissions for decompensated heart failure. Patient is on a reasonable medical regimen at this time he has a very poor prognosis in longterm as I mentioned in my note from yesterday and others have as well. None the less there are no other cardiac adjustments to make today. He is been off inotropics support since yesterday and appears to be not significantly volume overloaded. The patient is mental status that represents a significant challenge in terms of disposition. Blayne Quinonez MD [facility] Subjective Date/time seen: Date of service: 06/07/21 11:42 Interval history: Follow-up for acute on chronic CHF, HTN, nonsustained ventricular tachycardia, presumed CAD. Encephalopathic. Date of service 06/04/2021: Less confused today but remains disoriented. Complaining that he is hungry. Does endorse some shortness of breath. He has oxygen available but the nasal prongs are on his forehead and he does not want to move them. Date of service 06/05/2021: No complaints this morning. He denies chest pain, shortness of breath. Breathing comfortably on room air at the time of exam. Remains confused. Date of service 06/06/2021: Patient resting comfortably sleeping flat in bed when I entered the room no complaints upon awakening. No oxygen requirements. Remains confused. Has been receiving intravenous dobutamine as well as Bumex infusion now for 12 days. Date of service 06/07/2021: Patient sleeping relatively comfortably appears to be incoherent. Apparently became agitated/combative last night and was sedated. Exam Narrative: Ill-appearing male. Alert but not oriented. Const: General: no acute distress, alert, confusion and ill appearing Orientation/consciousness: confusion Limitations: altered mental status and physical limitations Other: R BKA HENMT: Head: normal to inspection General nose exam: no epistaxis Eyes: Sclera: sclerae normal EOM: EOMs intact bilaterally Neck: Neck: supple Thyroid: thyroid normal Carotids: no bruits Lymphatic: lymphadenopathy not noted Chest: Chest palpation & inspection: normal inspection of the chest Resp: Effort & Inspection: normal respiratory effort Auscultation: not clear to auscultation bilaterally, crackles and diminished lung sounds Other: Crackles Half-Way up bilaterally Cardio: Rate: regular rate Rhythm: regular rhythm Heart sounds: no murmurs GI: Inspection: distended Auscultation: normal bowel sounds Other: Some edema/ascites remains in abdomen but is much improved. Urinary Catheter: Urinary Catheter: patent and draining and urine clear Skin: General skin exam: No normal color (Hyperpigmentation and scaling of lower extremity) and erythema Wounds: wounds noted (Hyperpigmentation, chronic skin changes, some weeping/blistering to L LE ) Other: Chronic skin changes and hyperpigmentation of the left lower extremity. Neuro: General: confusion Cognition (Neuro): abnormal cognition (Appears confused) Speech: No normal speech (Mumbling but responsive) Other: Not following commands. Extrem: General: edema and pedal edema Other: Worsening moderate edema of arms, legs, abdomen, probable ascites Psych: Mental Status: mental status grossly abnormal Affect: Indifferent affect present Objective Data Vital Signs Vital Signs: Vital Signs - 24 hr 06/06/21 12:00 06/06/21 13:40 06/06/21 14:00 Temperature 36.2 C L Pulse Rate 61 61 56 L Respiratory Rate 20 18 Blood Pressure 132/80 Pulse Oximetry 97 06/06/21 16:00 06/06/21 18:00 06/06/21 19:45 Temperature 36.2 C L Pulse Rate 52 L 56 L 63 Respiratory Rate 24 H 20 Blood Pressure 130/72 Pulse Oximetry 97 98 06/06/21 19:53 06/06/21 20:00 06/06/21 21:22 Temperature 36.6 C Pulse Rate 62 62 64 Respiratory Rate 20 19 Blood Pressure 141/103 H Pulse Oxime
--- NOTE | 2021-06-07 12:17 | PM.IMPN ---
Progress Note: A&P Assessment and Plan (1) Combined congestive systolic and diastolic heart failure: Qualifiers: Heart failure chronicity: acute on chronic Qualified Code(s): I50.43 - Acute on chronic combined systolic (congestive) and diastolic (congestive) heart failure Code(s): I50.40 - Unspecified combined systolic (congestive) and diastolic (congestive) heart failure Status: Acute Assessment and Plan: The patient has acute on chronic systolic and diastolic heart failure with anasarca and pleural effusions. He was initially started antibiotics for possible pneumonia however these were discontinued as patient clinical picture fits more with pleural effusion and associated atelectasis. He is on intermittent nasal cannula 2 L. Patient's edema is improving in the is a good urine output with a negative fluid balance. He was switched to oral bumex. Dopamine drip was stopped. (2) Acute kidney injury superimposed on chronic kidney disease: Code(s): N17.9 - Acute kidney failure, unspecified; N18.9 - Chronic kidney disease, unspecified Status: Acute Assessment and Plan: Etiology is due to diastolic dysfunction and natural history of progressive chronic kidney disease complicated by active diuresis in the setting of nephrotic syndrome low albumin. The patient's baseline creatinine was 1.9-2.3 previously. Patient's creatinine is trending down at 3.3 today but he has had good urine output. (3) Anasarca: Code(s): R60.1 - Generalized edema Status: Acute Assessment and Plan: Due to nephrotic syndrome in the setting of biospy proven diabetic nephropathy. According to nephrology the patient's filling 14 g of protein a day. Patient 's fluid status is improving. Continue bumex. (4) Insulin dependent diabetes mellitus: Status: Chronic Assessment and Plan: Glucoses within acceptable limits. Continue sliding scale insulin with Accu-Cheks a.c. HS and hypoglycemia protocol. FAsting blood sugar was 89. Accu-checks in the 74-93 range. (5) Acute respiratory failure: Qualifiers: Respiratory failure complication: unspecified whether with hypoxia or hypercapnia Qualified Code(s): J96.00 - Acute respiratory failure, unspecified whether with hypoxia or hypercapnia Code(s): J96.00 - Acute respiratory failure, unspecified whether with hypoxia or hypercapnia Status: Acute Assessment and Plan: Due to CHF exacerbation. Patient is down to 2 L nasal cannula. Improvement fo fluid status. (6) Cellulitis of leg: Code(s): L03.119 - Cellulitis of unspecified part of limb Status: Acute Assessment and Plan: Currently no fever or leucocytosis. started on local antibiotic with mupirocin. Monitor clinically. Resume keflex when oral intake is safe.. (7) Urinary retention: Code(s): R33.9 - Retention of urine, unspecified Status: Acute Assessment and Plan: Patient status post catheter placement. (8) CAD (coronary artery disease): Code(s): I25.10 - Atherosclerotic heart disease of [place] coronary artery without angina pectoris Status: Acute Assessment and Plan: History of coronary artery disease, status post [place]. Currently Lipitor 40 mg p.o. q.h.s. plus Imdur 60 mg p.o. daily plus metoprolol 50 mg p.o. b.i.d. plus aspirin 81 mg p.o. daily are on hold. Hydralazine PRN orered for BP control. (9) Hypertension: Code(s): I10 - Essential (primary) hypertension Status: Acute Assessment and Plan: Started bumetanide 2 mg PO daily in addition to hydralazine 75 mg p.o. t.i.d. plus Imdur 60 mg p.o. daily plus lisinopril 20 mg p.o. daily plus metoprolol 50 mg p.o. b.i.d. BP moderately controlled . 139/73 today. (10) Encephalopathy: Code(s): G93.40 - Encephalopathy, unspecified Status: Acute Assessment and Plan: Patient is sedated. Additional Plan Discharge planni
[2021-06-07 12:19] LABS: Glucose Point of Care 93 mg/dl (65-105)
[2021-06-07] MEDS: GABAPENTIN 300 MG CAPSULE PO (16:44)
[2021-06-07] MEDS: hydrALAZINE HCL 25 MG TABLET 75 MG PO (16:44)
[2021-06-07 17:26] LABS: Glucose Point of Care 74 mg/dl (65-105)
[2021-06-07] MEDS: TOLNAFTATE 1% POWDER 45 GM BTL 1 APPLIC TOPICAL (20:13)
[2021-06-07] MEDS: METOPROLOL TARTRATE 50 MG TAB PO (20:13)
[2021-06-07] MEDS: QUEtiapine FUMARATE 25 MG TABLET 50 MG PO (20:13)
[2021-06-07] MEDS: CEPHALEXIN 500 MG CAPSULE PO (20:13)
[2021-06-07 20:29] LABS: Glucose Point of Care 100 mg/dl (65-105)
[2021-06-08] VITALS (22 sets, daily range): BP systolic 100–155; BP diastolic 55–91; PULSE 54–119; RESP 16–20; TEMP 36.2–37.1; O2SAT 90–100
[2021-06-08] MEDS: IPRATROPIUM BR 0.02% INH SOLN 0.5 MG/2.5 ML VIAL INHALATION ×4 (02:07→20:06)
[2021-06-08] MEDS: ALBUTEROL SULFATE NEB 2.5 MG/0.5 ML INH INHALATION ×4 (02:07→20:05)
[2021-06-08 04:53] LABS: Basophils Absolute Auto 0.1 K/mm3 (0.0-0.1); Basophils Percent Auto 0.9 % (0.2-1.2); Eosinophils Absolute Auto 0.4 K/mm3 (0-0.3); Eosinophils Percent Auto 5.9 % (0-4.4); Hematocrit 28.2 % (42.0-52.0); Hemoglobin 8.1 g/dL (14.0-18.0); Immature Granulocyte Absolute 0.02 K/mm3 (0.00-0.031); Immature Granulocyte Percent A 0.3 % (0-0.5); Lymphocytes Absolute Auto 0.65 K/mm3 (0.9-3.2); Lymphocytes Percent Auto 9.3 % (18.3-44.2); Mean Corpuscular HGB Conc 28.7 g/dl (32-36); Mean Corpuscular Hemoglobin 26.4 pg (26-34); Mean Corpuscular Volume 91.9 fl (80-100); Mean Platelet Volume 11.9 fl (7.4-10.4); Monocytes Absolute Auto 0.5 K/mm3 (0.1-0.6); Monocytes Percent Auto 7.3 % (2.6-8.5); Neutrophils Absolute Auto 5.3 K/mm3 (1.3-6.7); Neutrophils Percent Auto 76.3 % (45.5-73.1); Platelet Count Result 231 k/mm3 (150-375); Red Blood Count 3.07 M/mm3 (4.6-6.20); Red Cell Distribution Width 16.2 % (11.5-14.5)
[2021-06-08 05:09] LABS: Anion Gap 7 mmol/L (8-16); Blood Urea Nitrogen 67 mg/dL (9-20); Calcium 8.3 mg/dL (8.4-10.2); Carbon Dioxide 26 mmol/L (22-30); Chloride 105 mmol/L (98-107); Estimated CRCL calculation 26 ml/min; Estimated Glomerular Filt Rate 20; Glucose 107 mg/dL (65-110); Potassium 5.1 mmol/L (3.4-5.0); Sodium 138 mmol/L (137-145)
[2021-06-08 05:49] LABS: Hypochromasia 2+ (NORMAL); Large Platelets Present; Platelet Estimate Adequate (Adequate)
[2021-06-08 05:50] LABS: Anisocytosis 1+ (NORMAL); Ovalocytes 1+ (NORMAL)
[2021-06-08] MEDS: MUPIROCIN 2% OINT 22 GM TUBE 1 APPLIC TOPICAL ×2 (09:23→21:20)
[2021-06-08] MEDS: TOLNAFTATE 1% POWDER 45 GM BTL 1 APPLIC TOPICAL ×2 (09:23→21:20)
[2021-06-08] MEDS: BUMETANIDE 1 MG TABLET 2 MG PO (09:25)
[2021-06-08] MEDS: ATORVASTATIN 40 MG TABLET PO (09:25)
[2021-06-08] MEDS: hydrALAZINE HCL 25 MG TABLET 75 MG PO ×2 (09:25→17:01)
[2021-06-08] MEDS: CEPHALEXIN 500 MG CAPSULE PO ×2 (09:25→21:15)
[2021-06-08] MEDS: ASPIRIN 81 MG CHEWABLE TABLET PO (09:26)
[2021-06-08] MEDS: GABAPENTIN 300 MG CAPSULE PO ×3 (09:27→17:01)
[2021-06-08] MEDS: HEPARIN SODIUM 5,000 UNITS/ML VIAL 5000 UNITS SUB-Q ×2 (09:27→21:16)
[2021-06-08] MEDS: ISOSORBIDE MONONITRATE 60 MG TAB.ER.24H PO (09:28)
[2021-06-08] MEDS: METOPROLOL TARTRATE 50 MG TAB PO ×2 (09:28→21:15)
--- NOTE | 2021-06-08 09:41 | P.PNNP_ITS ---
Progress Note: A&P Assessment and Plan (1) GLENN (acute kidney injury): Code(s): N17.9 - Acute kidney failure, unspecified Status: Acute Assessment and Plan: * etiology is probably multifactorial, including diastolic dysfunction, pre renal azotemia due to low albumin, and progression of disease * creatinine seems to have stabilized at around 3.3-3.6. * transitioned to oral bumex * Edema seems to be doing pretty well. * follow trend of labs and UOP (2) Stage 3b chronic kidney disease: Code(s): N18.32 - Chronic kidney disease, stage 3b Status: Chronic Assessment and Plan: * suspect baseline creatinine 1.9 - 2.3mg/dl * due to biopsy proven diabetic nephropathy along with HTN/vascular disease * suspect creatinine/kidney function will always fluctuate depending on his volume status and necessity of diuretics to achieve euvolemia (3) Hallucinations: Code(s): R44.3 - Hallucinations, unspecified Status: Acute Assessment and Plan: * etiology? * CT of head negative * improved but confusion persists * Should be get Neurology involved? (4) Acute combined systolic and diastolic CHF, NYHA class 1: Code(s): I50.41 - Acute combined systolic (congestive) and diastolic (congestive) heart failure Status: Acute Assessment and Plan: * well known issues with several recent hospitalizations for this problems * some issues with decompensation related to compliance * Cardiology following * resumed oral bumex * Edema seems to be doing pretty well (5) Anasarca: Code(s): R60.1 - Generalized edema Status: Acute Assessment and Plan: * due to heart failure but his nephrotic range proteinuria/syndrome is also play ing a role -- he is spilling over 14 g of protein per day. * may have to accept a higher creatinine to achieve euvolemia (6) Hypertension: Code(s): I10 - Essential (primary) hypertension Status: Acute Assessment and Plan: * blood pressure is running 130-160 * on lisinopril and hydralazine. * follow trend of hemodynamics (7) Diabetes: Code(s): E11.9 - Type 2 diabetes mellitus without complications Status: Chronic Assessment and Plan: * follow Accu-Cheks * on sliding-scale insulin Subjective Date/time seen: 06/08/21 09:41 Interval history: Still confused off and on. Medical Surgery Nurse not available today. He says he is not short of breath. He seems to have some pain at the base of his left ribs. I discussed this with nursing will pass it on. Exam Narrative: General: ill appearing male in NAD Heart: normal S1 and S2; no rub Lungs: decreased breath sounds at bases . No rub. Abdomen: soft, nontender, nondistended, positive bowel sounds Extremities: 1 - 2+ edema throughout Skin: warm and dry . No rash on his chest. Objective Data Vital Signs Vital Signs: Vital Signs - 24 hr 06/07/21 10:00 06/07/21 12:00 06/07/21 14:00 Temperature Pulse Rate 69 70 72 Respiratory Rate 18 Blood Pressure 139/55 L Pulse Oximetry 94 06/07/21 14:26 06/07/21 14:32 06/07/21 16:00 Temperature Pulse Rate 68 70 81 Respiratory Rate 20 20 Blood Pressure Pulse Oximetry 06/07/21 16:42 06/07/21 18:00 06/07/21 19:44 Temperature 36.6 C
--- NOTE | 2021-06-08 09:41 | PM.PNNEP ---
Progress Note: A&P Assessment and Plan (1) GLENN (acute kidney injury): Code(s): N17.9 - Acute kidney failure, unspecified Status: Acute Assessment and Plan: etiology is probably multifactorial, including diastolic dysfunction, pre renal azotemia due to low albumin, and progression of disease creatinine seems to have stabilized at around 3.3-3.6. transitioned to oral bumex Edema seems to be doing pretty well. follow trend of labs and UOP (2) Stage 3b chronic kidney disease: Code(s): N18.32 - Chronic kidney disease, stage 3b Status: Chronic Assessment and Plan: suspect baseline creatinine 1.9 - 2.3mg/dl due to biopsy proven diabetic nephropathy along with HTN/vascular disease suspect creatinine/kidney function will always fluctuate depending on his volume status and necessity of diuretics to achieve euvolemia (3) Hallucinations: Code(s): R44.3 - Hallucinations, unspecified Status: Acute Assessment and Plan: etiology? CT of head negative improved but confusion persists Should be get Neurology involved? (4) Acute combined systolic and diastolic CHF, NYHA class 1: Code(s): I50.41 - Acute combined systolic (congestive) and diastolic (congestive) heart failure Status: Acute Assessment and Plan: well known issues with several recent hospitalizations for this problems some issues with decompensation related to compliance Cardiology following resumed oral bumex Edema seems to be doing pretty well (5) Anasarca: Code(s): R60.1 - Generalized edema Status: Acute Assessment and Plan: due to heart failure but his nephrotic range proteinuria/syndrome is also playing a role -- he is spilling over 14 g of protein per day. may have to accept a higher creatinine to achieve euvolemia (6) Hypertension: Code(s): I10 - Essential (primary) hypertension Status: Acute Assessment and Plan: blood pressure is running 130-160 on lisinopril and hydralazine. follow trend of hemodynamics (7) Diabetes: Code(s): E11.9 - Type 2 diabetes mellitus without complications Status: Chronic Assessment and Plan: follow Accu-Cheks on sliding-scale insulin Subjective Date/time seen: 06/08/21 09:41 Interval history: Still confused off and on. Director Of [employer] not available today. He says he is not short of breath. He seems to have some pain at the base of his left ribs. I discussed this with nursing will pass it on. Exam Narrative: General: ill appearing male in NAD Heart: normal S1 and S2; no rub Lungs: decreased breath sounds at bases . No rub. Abdomen: soft, nontender, nondistended, positive bowel sounds Extremities: 1 - 2+ edema throughout Skin: warm and dry . No rash on his chest. Objective Data Vital Signs Vital Signs: Vital Signs - 24 hr 06/07/21 10:00 06/07/21 12:00 06/07/21 14:00 Temperature Pulse Rate 69 70 72 Respiratory Rate 18 Blood Pressure 139/55 L Pulse Oximetry 94 06/07/21 14:26 06/07/21 14:32 06/07/21 16:00 Temperature Pulse Rate 68 70 81 Respiratory Rate 20 20 Blood Pressure Pulse Oximetry 06/07/21 16:42 06/07/21 18:00 06/07/21 19:44 Temperature 36.6 C Pulse Rate 67 59 L 99 Respiratory Rate 22 H 20 Blood Pressure 130/71 169/99 H Pulse Oximetry 99 99 06/07/21 20:00 06/07/21 20:13 06/07/21 20:32 Temperature Pulse Rate 63 64 64 Respiratory Rate 20 20 Blood Pressure Pulse Oximetry 99 06/07/21 20:34 06/07/21 20:40 06/07/21 22:00 Temperature Pulse Rate 64 68 66 Respiratory Rate 20 20 Blood Pressure Pulse Oximetry 99 06/07/21 23:37 06/08/21 00:00 06/08/21 02:00 Temperature 36.6 C Pulse Rate 65 72 73 Respiratory Rate 20 Blood Pressure 130/90 Pulse Oximetry 97 06/08/21 02:07 06/08/21 02:15 06/08/21 04:00 Temperature 37.1 C Pulse Rate 74 73 77 Respirator
[2021-06-08 09:46] LABS: Glucose Point of Care 92 mg/dl (65-105)
--- NOTE | 2021-06-08 12:34 | PM.PNCARD ---
Progress Note: A&P Assessment and Plan (1) Acute combined systolic and diastolic CHF, NYHA class 1: Code(s): I50.41 - Acute combined systolic (congestive) and diastolic (congestive) heart failure Status: Acute Assessment and Plan: Patient presents with acute on chronic systolic and diastolic heart failure, anasarca, pleural effusions. Respiratory status has improved with aggressive diuresis. He is on room air with minimal O2 per nasal cannula intermittently. Edema is improved. Urine output has decreased over the past 24 hours. He has been shifted to oral bumex. (2) Nonsustained ventricular tachycardia: Code(s): I47.2 - Ventricular tachycardia Status: Acute Assessment and Plan: No nonsustained V-tach recently. Continue beta-malik without further increase at this time. For example, if more frequent or longer runs of nonsusta
--- NOTE | 2021-06-08 13:03 | PM.IMPN ---
Progress Note: A&P Assessment and Plan (1) Combined congestive systolic and diastolic heart failure: Qualifiers: Heart failure chronicity: acute on chronic Qualified Code(s): I50.43 - Acute on chronic combined systolic (congestive) and diastolic (congestive) heart failure Code(s): I50.40 - Unspecified combined systolic (congestive) and diastolic (congestive) heart failure Status: Acute Assessment and Plan: The patient has acute on chronic systolic and diastolic heart failure with anasarca and pleural effusions. The patient's clinical picture fits more with pleural effusion and associated atelectasis. He is on intermittent nasal cannula 2 L. Patient's edema is improving in the is a good urine output with a negative fluid balance. Continue oral bumex. (2) Acute kidney injury superimposed on chronic kidney disease: Code(s): N17.9 - Acute kidney failure, unspecified; N18.9 - Chronic kidney disease, unspecified Status: Acute Assessment and Plan: Etiology is due to diastolic dysfunction and natural history of progressive chronic kidney disease complicated by active diuresis in the setting of nephrotic syndrome low albumin. The patient's baseline creatinine was 1.9-2.3 previously. Patient's creatinine is plateaued 3.3-3.4 today; he maintains an adequate urine output. (3) Anasarca: Code(s): R60.1 - Generalized edema Status: Acute Assessment and Plan: Due to nephrotic syndrome in the setting of biospy proven diabetic nephropathy. According to nephrology the patient's filling 14 g of protein a day. Patient 's fluid status is improving. Continue bumex. (4) Insulin dependent diabetes mellitus: Status: Chronic Assessment and Plan: Glucoses within acceptable limits. Continue sliding scale insulin with Accu-Cheks a.c. HS and hypoglycemia protocol. FAsting blood sugar was 107. Accu-checks in the 92-120 range. (5) Acute respiratory failure: Qualifiers: Respiratory failure complication: unspecified whether with hypoxia or hypercapnia Qualified Code(s): J96.00 - Acute respiratory failure, unspecified whether with hypoxia or hypercapnia Code(s): J96.00 - Acute respiratory failure, unspecified whether with hypoxia or hypercapnia Status: Acute Assessment and Plan: Due to CHF exacerbation. Patient is down to 2 L nasal cannula. Improvement fo fluid status. (6) Cellulitis of leg: Code(s): L03.119 - Cellulitis of unspecified part of limb Status: Acute Assessment and Plan: Currently no fever or leucocytosis. started on local antibiotic with mupirocin. Monitor clinically. Resume keflex when oral intake is safe. Wound care per nursing. (7) Urinary retention: Code(s): R33.9 - Retention of urine, unspecified Status: Acute Assessment and Plan: Patient status post catheter placement. (8) CAD (coronary artery disease): Code(s): I25.10 - Atherosclerotic heart disease of [place] coronary artery without angina pectoris Status: Acute Assessment and Plan: History of coronary artery disease, status post [place]. Currently Lipitor 40 mg p.o. q.h.s. plus Imdur 60 mg p.o. daily plus metoprolol 50 mg p.o. b.i.d. plus aspirin 81 mg p.o. daily are on hold. Hydralazine PRN ordered for BP control when patient unable to take his medications due to confusion. (9) Hypertension: Code(s): I10 - Essential (primary) hypertension Status: Acute Assessment and Plan: Contiue bumetanide 2 mg PO daily in addition to hydralazine 75 mg p.o. t.i.d. plus Imdur 60 mg p.o. daily plus lisinopril 20 mg p.o. daily plus metoprolol 50 mg p.o. b.i.d. BP moderately controlled . 148/91 today. (10) Encephalopathy: Code(s): G93.40 - Encephalopathy, unspecified Status: Acute Assessment and Plan: Patient is improving off sedation. (11) Confusion: Code(s): R41.0 - Disorientat
--- NOTE | 2021-06-08 13:08 | PCDIET ---
Nutrition Follow-Up Complete: Nutrition Diagnosis: Inadequate oral intake related to altered mental status as evidenced by need for tube feedings. Nutrition Goal: Patient to meet estimated nutritional needs. Goal met. Patient required sedation on evening of 06/06/21 and did not eat much on 06/07/21 due to decreased level of alertness. Otherwise, patient eating 100% of most meals on heart healthy diet. Last recorded weight is 90.4 kg which is increased from last review, but down from admission. Bowel Motility: BM x 1 today. Labs Reviewed: RBC (3.07), Hgb (8.1), Hct (28.2), BUN (67), Cr (3.4), K (5.1), Ca (8.3) Meds Noted: Lopressor, Albuterol, Lipitor, Bumex, Keflex, Seroquel, Apresoline, Atrovent, Imdur Additional Notes: Deep tissue injury to medial sacrum. Left foot with scab. Left knee with abrasion. Left lower leg with ulcer. Will continue to monitor with same goal. Nutrition Monitoring and Evaluation: Follow up in 5 days.
[2021-06-08 14:23] LABS: Glucose Point of Care 120 mg/dl (65-105)
[2021-06-08 17:26] LABS: Glucose Point of Care 103 mg/dl (65-105)
[2021-06-08 20:19] LABS: Glucose Point of Care 118 mg/dl (65-105)
[2021-06-08] MEDS: QUEtiapine FUMARATE 25 MG TABLET 50 MG PO (21:16)
[2021-06-09] VITALS (20 sets, daily range): BP systolic 109–152; BP diastolic 52–77; PULSE 60–76; RESP 18–24; TEMP 36.4–36.9; O2SAT 90–100
--- NOTE | 2021-06-09 05:00 | PC.NURSE ---
patients mepilex was replaced on coccyx. patient removed it and stuck it on his stump. patient removed second mepilex and was waving it around at everyone then placed it on anus instead of coccyx area.
[2021-06-09 05:26] LABS: Basophils Absolute Auto 0.1 K/mm3 (0.0-0.1); Basophils Percent Auto 0.6 % (0.2-1.2); Eosinophils Absolute Auto 0.4 K/mm3 (0-0.3); Eosinophils Percent Auto 4.9 % (0-4.4); Hematocrit 29.6 % (42.0-52.0); Hemoglobin 8.6 g/dL (14.0-18.0); Immature Granulocyte Absolute 0.02 K/mm3 (0.00-0.031); Immature Granulocyte Percent A 0.3 % (0-0.5); Lymphocytes Absolute Auto 0.79 K/mm3 (0.9-3.2); Lymphocytes Percent Auto 10.1 % (18.3-44.2); Mean Corpuscular HGB Conc 29.1 g/dl (32-36); Mean Corpuscular Hemoglobin 26.2 pg (26-34); Mean Corpuscular Volume 90.2 fl (80-100); Mean Platelet Volume 12.1 fl (7.4-10.4); Monocytes Absolute Auto 0.6 K/mm3 (0.1-0.6); Monocytes Percent Auto 7.5 % (2.6-8.5); Neutrophils Percent Auto 76.6 % (45.5-73.1); Platelet Count Result 241 k/mm3 (150-375); Red Blood Count 3.28 M/mm3 (4.6-6.20); Red Cell Distribution Width 16.6 % (11.5-14.5); White Blood Count 7.8 K/mm3 (4.5-10.0)
--- NOTE | 2021-06-09 07:18 | P.PNNP_ITS ---
Progress Note: A&P Assessment and Plan (1) GLENN (acute kidney injury): Code(s): N17.9 - Acute kidney failure, unspecified Status: Acute Assessment and Plan: * etiology is probably multifactorial, including diastolic dysfunction, pre renal azotemia due to low albumin, and progression of disease * creatinine seems to have stabilized at around 3.3-3.6. * This may be a new baseline for him. * transitioned to oral bumex (2) Stage 3b chronic kidney disease: Code(s): N18.32 - Chronic kidney disease, stage 3b Status: Chronic Assessment and Plan: * suspect baseline creatinine may be the current 1. * due to biopsy proven diabetic nephropathy along with HTN/vascular disease * suspect creatinine/kidney function will always fluctuate depending on his volume status and necessity of diuretics to achieve euvolemia (3) Hallucinations: Code(s): R44.3 - Hallucinations, unspecified Status: Acute Assessment and Plan: * etiology? * CT of head negative * improved today (4) Acute combined systolic and diastolic CHF, NYHA class 1: Code(s): I50.41 - Acute combined systolic (congestive) and diastolic (congestive) heart failure Status: Acute Assessment and Plan: * well known issues with several recent hospitalizations for this problems * He seems to be doing pretty well with oral Bumex right now. * We discussed that he needs to avoid salty food at home. (5) Anasarca: Code(s): R60.1 - Generalized edema Status: Acute Assessment and Plan: * due to heart failure but his nephrotic range proteinuria/syndrome is also playing a role -- he is spilling over 14 g of protein per day. * may have to accept a higher creatinine to achieve euvolemia (6) Hypertension: Code(s): I10 - Essential (primary) hypertension Status: Acute Assessment and Plan: * blood pressure is running 130-160 * on metoprolol and hydralazine. Lisinopril is currently on hold * BP seems a little bit too high. Will increase metoprolol (7) Diabetes: Code(s): E11.9 - Type 2 diabetes mellitus without complications Status: Chronic Assessment and Plan: * follow Accu-Cheks * on sliding-scale insulin Subjective Date/time seen: 06/09/21 07:18 Interval history: Still confused off and on. Today I was able to use a film crew member and the patient was oriented and sensible. He denies any chest pain or shortness of breath. Exam Narrative: General: ill appearing male in NAD Heart: normal S1 and S2; no rub or gallop Lungs: decreased breath sounds at bases . No rub. Abdomen: soft, nontender, nondistended, positive bowel sounds Extremities: 1 - 2+ edema throughout Skin: No rash. Objective Data Vital Signs Vital Signs: Vital Signs - 24 hr 06/08/21 08:00 06/08/21 08:10 06/08/21 08:11 Temperature 36.5 C Pulse Rate 61 67 Respiratory Rate 18 20 Blood Pressure 148/91 H Pulse Oximetry 94 90 06/08/21 08:21 06/08/21 09:28 06/08/21 10:00 Temperature Pulse Rate 73 73 63 Respiratory Rate 20 Blood Pressure Pulse Oximetry 06/08/21 12:00 06/08/21 14:00 06/08/21 14:09 Temperature 36.6 C Pulse Rate 63 60 54 L Respiratory Rate 18 20 Blood Pressure 100/77 Pulse Oximet
--- NOTE | 2021-06-09 07:18 | PM.PNNEP ---
Progress Note: A&P Assessment and Plan (1) GLENN (acute kidney injury): Code(s): N17.9 - Acute kidney failure, unspecified Status: Acute Assessment and Plan: etiology is probably multifactorial, including diastolic dysfunction, pre renal azotemia due to low albumin, and progression of disease creatinine seems to have stabilized at around 3.3-3.6. This may be a new baseline for him. transitioned to oral bumex (2) Stage 3b chronic kidney disease: Code(s): N18.32 - Chronic kidney disease, stage 3b Status: Chronic Assessment and Plan: suspect baseline creatinine may be the current 1. due to biopsy proven diabetic nephropathy along with HTN/vascular disease suspect creatinine/kidney function will always fluctuate depending on his volume status and necessity of diuretics to achieve euvolemia (3) Hallucinations: Code(s): R44.3 - Hallucinations, unspecified Status: Acute Assessment and Plan: etiology? CT of head negative improved today (4) Acute combined systolic and diastolic CHF, NYHA class 1: Code(s): I50.41 - Acute combined systolic (congestive) and diastolic (congestive) heart failure Status: Acute Assessment and Plan: well known issues with several recent hospitalizations for this problems He seems to be doing pretty well with oral Bumex right now. We discussed that he needs to avoid salty food at home. (5) Anasarca: Code(s): R60.1 - Generalized edema Status: Acute Assessment and Plan: due to heart failure but his nephrotic range proteinuria/syndrome is also playing a role -- he is spilling over 14 g of protein per day. may have to accept a higher creatinine to achieve euvolemia (6) Hypertension: Code(s): I10 - Essential (primary) hypertension Status: Acute Assessment and Plan: blood pressure is running 130-160 on metoprolol and hydralazine. Lisinopril is currently on hold BP seems a little bit too high. Will increase metoprolol (7) Diabetes: Code(s): E11.9 - Type 2 diabetes mellitus without complications Status: Chronic Assessment and Plan: follow Accu-Cheks on sliding-scale insulin Subjective Date/time seen: 06/09/21 07:18 Interval history: Still confused off and on. Today I was able to use a sox analyst and the patient was oriented and sensible. He denies any chest pain or shortness of breath. Exam Narrative: General: ill appearing male in NAD Heart: normal S1 and S2; no rub or gallop Lungs: decreased breath sounds at bases . No rub. Abdomen: soft, nontender, nondistended, positive bowel sounds Extremities: 1 - 2+ edema throughout Skin: No rash. Objective Data Vital Signs Vital Signs: Vital Signs - 24 hr 06/08/21 08:00 06/08/21 08:10 06/08/21 08:11 Temperature 36.5 C Pulse Rate 61 67 Respiratory Rate 18 20 Blood Pressure 148/91 H Pulse Oximetry 94 90 06/08/21 08:21 06/08/21 09:28 06/08/21 10:00 Temperature Pulse Rate 73 73 63 Respiratory Rate 20 Blood Pressure Pulse Oximetry 06/08/21 12:00 06/08/21 14:00 06/08/21 14:09 Temperature 36.6 C Pulse Rate 63 60 54 L Respiratory Rate 18 20 Blood Pressure 100/77 Pulse Oximetry 100 06/08/21 14:17 06/08/21 16:00 06/08/21 20:00 Temperature 36.2 C L 36.7 C Pulse Rate 64 57 L 67 Respiratory Rate 20 16 20 Blood Pressure 140/68 151/75 H Pulse Oximetry 100 91 06/08/21 20:08 06/08/21 20:18 06/08/21 21:15 Temperature Pulse Rate 68 71 67 Respiratory Rate 20 20 Blood Pressure Pulse Oximetry 91 06/08/21 23:08 06/09/21 00:00 06/09/21 04:00 Temperature 36.7 C 36.7 C Pulse Rate 74 76 66 Respiratory Rate 20 20 Blood Pressure 145/55 H 147/60 H Pulse Oximetry 99 98 Intake/Output Intake/Output: Intake & Output 06/06/21 06/07/21 06/08/21 06/09/21 23:59 23:59 23:59 23:59 Intake Total 473 930 Output Total 1100 5
[2021-06-09 07:48] LABS: Anion Gap 7 mmol/L (8-16); Blood Urea Nitrogen 68 mg/dL (9-20); Calcium 8.4 mg/dL (8.4-10.2); Carbon Dioxide 26 mmol/L (22-30); Chloride 106 mmol/L (98-107); Estimated CRCL calculation 26 ml/min; Estimated Glomerular Filt Rate 20; Glucose 87 mg/dL (65-110); Potassium 6.1 mmol/L (3.4-5.0); Sodium 139 mmol/L (137-145)
[2021-06-09 07:48] LABS: Glucose Point of Care 80 mg/dl (65-105)
[2021-06-09] MEDS: ALBUTEROL SULFATE NEB 2.5 MG/0.5 ML INH INHALATION ×3 (08:13→20:19)
[2021-06-09] MEDS: IPRATROPIUM BR 0.02% INH SOLN 0.5 MG/2.5 ML VIAL INHALATION ×3 (08:13→20:19)
[2021-06-09] MEDS: SODIUM POLYSTYRENE SULFONONATE 15 GM/60 ML BTL PO ×2 (08:39→18:23)
[2021-06-09] MEDS: IRON SUCROSE COMPLEX 200 MG in SODIUM CHLORIDE 0.9% IV 50 ML 120 MG IVPB (08:39)
[2021-06-09] MEDS: DEXTROSE 50% 25 GM/50 ML SYRINGE IV PUSH ×2 (08:39→18:23)
[2021-06-09] MEDS: INSULIN HUMAN REGULAR (*BKC) 100 UNITS/ML 9 UNITS IV PUSH ×2 (08:39→18:23)
[2021-06-09] MEDS: GABAPENTIN 300 MG CAPSULE PO ×3 (08:45→16:10)
[2021-06-09] MEDS: ISOSORBIDE MONONITRATE 60 MG TAB.ER.24H PO (08:45)
[2021-06-09] MEDS: BUMETANIDE 1 MG TABLET 2 MG PO (08:46)
[2021-06-09] MEDS: hydrALAZINE HCL 25 MG TABLET 75 MG PO ×3 (08:46→16:10)
[2021-06-09] MEDS: METOPROLOL TARTRATE 50 MG TAB 100 MG PO ×2 (08:46→20:53)
[2021-06-09] MEDS: ATORVASTATIN 40 MG TABLET PO (08:47)
[2021-06-09] MEDS: ASPIRIN 81 MG CHEWABLE TABLET PO (08:47)
[2021-06-09] MEDS: HEPARIN SODIUM 5,000 UNITS/ML VIAL 5000 UNITS SUB-Q ×2 (08:47→20:52)
[2021-06-09] MEDS: CEPHALEXIN 500 MG CAPSULE PO ×2 (08:47→20:52)
[2021-06-09] MEDS: MUPIROCIN 2% OINT 22 GM TUBE 1 APPLIC TOPICAL ×2 (08:58→21:03)
[2021-06-09] MEDS: TOLNAFTATE 1% POWDER 45 GM BTL 1 APPLIC TOPICAL ×2 (08:58→21:03)
[2021-06-09 11:04] LABS: Potassium 5.7 mmol/L (3.4-5.0)
[2021-06-09 12:41] LABS: Glucose Point of Care 99 mg/dl (65-105)
[2021-06-09] MEDS: ACETAMINOPHEN 500 MG TABLET PO (14:12)
--- NOTE | 2021-06-09 15:30 | PM.IMPN ---
Progress Note: A&P Assessment and Plan (1) Combined congestive systolic and diastolic heart failure: Qualifiers: Heart failure chronicity: acute on chronic Qualified Code(s): I50.43 - Acute on chronic combined systolic (congestive) and diastolic (congestive) heart failure Code(s): I50.40 - Unspecified combined systolic (congestive) and diastolic (congestive) heart failure Status: Acute Assessment and Plan: The patient has acute on chronic systolic and diastolic heart failure with anasarca and pleural effusions. Patient's edema is improving in the is a good urine output with a negative fluid balance. Continue oral bumex. previous notes (2) Acute kidney injury superimposed on chronic kidney disease: Code(s): N17.9 - Acute kidney failure, unspecified; N18.9 - Chronic kidney disease, unspecified Status: Acute Assessment and Plan: Etiology is due to diastolic dysfunction and natural history of progressive chronic kidney disease complicated by active diuresis in the setting of nephrotic syndrome low albumin. previous notes (3) Anasarca: Code(s): R60.1 - Generalized edema Status: Acute Assessment and Plan: Due to nephrotic syndrome previous notes (4) Insulin dependent diabetes mellitus: Status: Chronic Assessment and Plan: Continue to watch (5) Acute respiratory failure: Qualifiers: Respiratory failure complication: unspecified whether with hypoxia or hypercapnia Qualified Code(s): J96.00 - Acute respiratory failure, unspecified whether with hypoxia or hypercapnia Code(s): J96.00 - Acute respiratory failure, unspecified whether with hypoxia or hypercapnia Status: Acute Assessment and Plan: Due to CHF exacerbation. (6) Cellulitis of leg: Code(s): L03.119 - Cellulitis of unspecified part of limb Status: Acute Assessment and Plan: Currently no fever or leucocytosis. (7) Urinary retention: Code(s): R33.9 - Retention of urine, unspecified Status: Acute Assessment and Plan: with parra (8) CAD (coronary artery disease): Code(s): I25.10 - Atherosclerotic heart disease of [place] coronary artery without angina pectoris Status: Acute Assessment and Plan: History of coronary artery disease, status post [place]. Currently Lipitor 40 mg p.o. q.h.s. plus Imdur 60 mg p.o. daily plus metoprolol 50 mg p.o. b.i.d. plus aspirin 81 mg p.o. daily are on hold. Hydralazine PRN (9) Hypertension: Code(s): I10 - Essential (primary) hypertension Status: Acute Assessment and Plan: Contiue bumetanide 2 mg PO daily in addition to hydralazine 75 mg p.o. t.i.d. plus Imdur 60 mg p.o. daily plus lisinopril 20 mg p.o. daily plus metoprolol 50 mg p.o. b.i.d. BP moderately controlled (10) Encephalopathy: Code(s): G93.40 - Encephalopathy, unspecified Status: Resolved Assessment and Plan: Much better (11) Confusion: Code(s): R41.0 - Disorientation, unspecified Status: Resolved Assessment and Plan: Much better (12) Acute hyperkalemia: Code(s): E87.5 - Hyperkalemia Status: Acute Assessment and Plan: Correct with insulin and kayelexate Subjective Date/time seen: 06/09/21 15:30 Interval history: Pt looks relaxed today, potassium is very high from labs this morning, insulin and kayelexate. Review of Systems Review of Systems: All systems reviewed & are unremarkable except as noted in HPI and below Exam Narrative: General: Chronically ill-appearing, more alert today Respiratory: Decreased breath sounds at the bases Cardiovascular: RRR Gastrointestinal: Soft, distended, positive bowel sounds Skin: Copious amounts of flaking dry skin from the left lower extremity, small amount of oozing from the left lower extremity, erythematous, ulcerative lesions. Musculoskeletal: 1+ pittin
--- NOTE | 2021-06-09 15:37 | PM.PNCARD ---
Progress Note: A&P Assessment and Plan (1) Acute combined systolic and diastolic CHF, NYHA class 1: Code(s): I50.41 - Acute combined systolic (congestive) and diastolic (congestive) heart failure Status: Acute Assessment and Plan: Patient presents with acute on chronic systolic and diastolic heart failure, anasarca, pleural effusions. Respiratory status has improved with aggressive diuresis. He is on room air with minimal O2 per nasal cannula intermittently. Edema is improved. Urine output has decreased over the past 24 hours, however. Now on oral bumex 2mg p.o. daily. (2) Nonsustained ventricular tachycardia: Code(s): I47.2 - Ventricular tachycardia Status: Acute Assessment and Plan: No nonsustained V-tach earlier during this admission. Continue beta-malik without further increase at this time. For example, if more freque
[2021-06-09] MEDS: ALPRAZolam (*CRX) 0.125 MG TABLET PO ×2 (16:10→21:02)
[2021-06-09] MEDS: EPOETIN ALFA-EPBX 10,000 UNITS/ML VIAL 10000 UNITS SUB-Q (16:10)
[2021-06-09 16:47] LABS: Glucose Point of Care 127 mg/dl (65-105)
[2021-06-09 17:23] LABS: Anion Gap 8 mmol/L (8-16); Blood Urea Nitrogen 66 mg/dL (9-20); Calcium 8.3 mg/dL (8.4-10.2); Carbon Dioxide 28 mmol/L (22-30); Chloride 104 mmol/L (98-107); Estimated CRCL calculation 23 ml/min; Estimated Glomerular Filt Rate 17; Glucose 135 mg/dL (65-110); Sodium 140 mmol/L (137-145)
[2021-06-09 20:38] LABS: Glucose Point of Care 108 mg/dl (65-105)
[2021-06-09 20:50] LABS: Potassium 5.9 mmol/L (3.4-5.0)
[2021-06-09] MEDS: QUEtiapine FUMARATE 25 MG TABLET 50 MG PO (20:53)
--- NOTE | 2021-06-09 22:08 | PC.NURSE ---
patient pulled out another iv. patient is confused at times.
--- NOTE | 2021-06-09 22:12 | PC.NURSE ---
dr luciano is aware that patient pulled out another iv. ok to get iv by geraldo in am.
--- NOTE | 2021-06-09 23:02 | PC.NURSE ---
patient stated per wood floor layer that he is feeling clausterphobic, anxious and depressed for being here. he wants to leave.
[2021-06-09] MEDS: ALPRAZolam (*CRX) 0.25 MG TABLET PO (23:32)
[2021-06-10] VITALS (17 sets, daily range): BP systolic 122–148; BP diastolic 69–83; PULSE 58–92; RESP 18–20; TEMP 36.1–36.6; O2SAT 92–98
[2021-06-10 05:16] LABS: Basophils Percent Auto 0.4 % (0.2-1.2); Eosinophils Absolute Auto 0.5 K/mm3 (0-0.3); Eosinophils Percent Auto 5.2 % (0-4.4); Hematocrit 29.8 % (42.0-52.0); Hemoglobin 8.4 g/dL (14.0-18.0); Immature Granulocyte Absolute 0.04 K/mm3 (0.00-0.031); Immature Granulocyte Percent A 0.4 % (0-0.5); Lymphocytes Absolute Auto 0.76 K/mm3 (0.9-3.2); Lymphocytes Percent Auto 7.5 % (18.3-44.2); Mean Corpuscular HGB Conc 28.2 g/dl (32-36); Mean Corpuscular Hemoglobin 25.5 pg (26-34); Mean Corpuscular Volume 90.3 fl (80-100); Mean Platelet Volume 12.1 fl (7.4-10.4); Monocytes Absolute Auto 0.8 K/mm3 (0.1-0.6); Neutrophils Percent Auto 78.5 % (45.5-73.1); Platelet Count Result 266 k/mm3 (150-375); Red Cell Distribution Width 16.7 % (11.5-14.5); White Blood Count 10.1 K/mm3 (4.5-10.0)
[2021-06-10 05:20] LABS: Albumin Level 3.3 g/dL (3.5-5.1); Anion Gap 7 mmol/L (8-16); Blood Urea Nitrogen 70 mg/dL (9-20); Calcium 8.3 mg/dL (8.4-10.2); Carbon Dioxide 28 mmol/L (22-30); Chloride 104 mmol/L (98-107); Estimated CRCL calculation 24 ml/min; Estimated Glomerular Filt Rate 18; Glucose 117 mg/dL (65-110); Phosphorus 4.7 mg/dL (2.5-4.5); Potassium 5.8 mmol/L (3.4-5.0); Sodium 139 mmol/L (137-145)
--- NOTE | 2021-06-10 07:44 | P.PNNP_ITS ---
Progress Note: A&P Assessment and Plan (1) GLENN (acute kidney injury): Code(s): N17.9 - Acute kidney failure, unspecified Status: Acute Assessment and Plan: * etiology is probably multifactorial, including diastolic dysfunction, pre renal azotemia due to low albumin, and progression of disease * creatinine seems to have stabilized at around 3.3-3.6. * This may be a new baseline for him. * His creatinine jumped up a little bit from day before yesterday to yesterday then was stable today. Will decrease Bumex a little bit today. But we will also see how his chest x-ray looks. (2) Stage 3b chronic kidney disease: Code(s): N18.32 - Chronic kidney disease, stage 3b Status: Chronic Assessment and Plan: * suspect baseline creatinine may be the current 1. * due to biopsy proven diabetic nephropathy along with HTN/vascular disease * suspect creatinine/kidney function will always fluctuate depending on his volume status and necessity of diuretics to achieve euvolemia (3) Hallucinations: Code(s): R44.3 - Hallucinations, unspecified Status: Acute Assessment and Plan: * This seems resolved. (4) Acute combined systolic and diastolic CHF, NYHA class 1: Code(s): I50.41 - Acute combined systolic (congestive) and diastolic (congestive) heart failure Status: Acute Assessment and Plan: * well known issues with several recent hospitalizations for this problems * He seems to be doing pretty well with oral Bumex right now. * We discussed that he needs to avoid salty food at home. * I discussed his concerns about the oxygen level at the and about being cold with the nursing supervisor broadloom. (5) Anasarca: Code(s): R60.1 - Generalized edema Status: Acute Assessment and Plan: * due to heart failure but his nephrotic range proteinuria/syndrome is also playing a role -- he is spilling over 14 g of protein per day. * may have to accept a higher creatinine to achieve euvolemia * This seems to be in a pretty good state. (6) Hypertension: Code(s): I10 - Essential (primary) hypertension Status: Acute Assessment and Plan: * blood pressure is running 110-150 * on metoprolol and hydralazine. Lisinopril is currently on hold * BP seems a little bit too high. Will increase metoprolol (7) Diabetes: Code(s): E11.9 - Type 2 diabetes mellitus without complications Status: Chronic Assessment and Plan: * follow Accu-Cheks * on sliding-scale insulin Subjective Date/time seen: 06/10/21 07:44 Interval history: Long discussion with the patient using a workers compensation analyst.\ The patient was moved to a new room. He says this room is cold. He was asking for another blanket. He is upset because he does not feel like the nurses are answering the call button quickly enough. He also says he wants oxygen but no and will give him any. Explain to him that they check his oxygen levels and his levels have always been above 90. Ninety- one was the lowest one and that was a couple of days ago. I told him that normal oxygen levels are 90-100. I told him that there are many reasons for shortness of breath other than just low oxygen. I will get a chest x-ray and also a nocturnal oximeter to see if he him I have sleep apnea or some other issues. He says that his shortness of breath is worse when he lays down flat. I told him that I would talk with the nursing home assistant about our discussion. We discussed also that his kidney function is not very good. Normal is 60 and dialy
--- NOTE | 2021-06-10 07:44 | PM.PNNEP ---
Progress Note: A&P Assessment and Plan (1) GLENN (acute kidney injury): Code(s): N17.9 - Acute kidney failure, unspecified Status: Acute Assessment and Plan: etiology is probably multifactorial, including diastolic dysfunction, pre renal azotemia due to low albumin, and progression of disease creatinine seems to have stabilized at around 3.3-3.6. This may be a new baseline for him. His creatinine jumped up a little bit from day before yesterday to yesterday then was stable today. Will decrease Bumex a little bit today. But we will also see how his chest x-ray looks. (2) Stage 3b chronic kidney disease: Code(s): N18.32 - Chronic kidney disease, stage 3b Status: Chronic Assessment and Plan: suspect baseline creatinine may be the current 1. due to biopsy proven diabetic nephropathy along with HTN/vascular disease suspect creatinine/kidney function will always fluctuate depending on his volume status and necessity of diuretics to achieve euvolemia (3) Hallucinations: Code(s): R44.3 - Hallucinations, unspecified Status: Acute Assessment and Plan: This seems resolved. (4) Acute combined systolic and diastolic CHF, NYHA class 1: Code(s): I50.41 - Acute combined systolic (congestive) and diastolic (congestive) heart failure Status: Acute Assessment and Plan: well known issues with several recent hospitalizations for this problems He seems to be doing pretty well with oral Bumex right now. We discussed that he needs to avoid salty food at home. I discussed his concerns about the oxygen level at the and about being cold with the nursing automotive tire testing supervisor. (5) Anasarca: Code(s): R60.1 - Generalized edema Status: Acute Assessment and Plan: due to heart failure but his nephrotic range proteinuria/syndrome is also playing a role -- he is spilling over 14 g of protein per day. may have to accept a higher creatinine to achieve euvolemia This seems to be in a pretty good state. (6) Hypertension: Code(s): I10 - Essential (primary) hypertension Status: Acute Assessment and Plan: blood pressure is running 110-150 on metoprolol and hydralazine. Lisinopril is currently on hold BP seems a little bit too high. Will increase metoprolol (7) Diabetes: Code(s): E11.9 - Type 2 diabetes mellitus without complications Status: Chronic Assessment and Plan: follow Accu-Cheks on sliding-scale insulin Subjective Date/time seen: 06/10/21 07:44 Interval history: Long discussion with the patient using a automotive glass specialist.\ The patient was moved to a new room. He says this room is cold. He was asking for another blanket. He is upset because he does not feel like the nurses are answering the call button quickly enough. He also says he wants oxygen but no and will give him any. Explain to him that they check his oxygen levels and his levels have always been above 90. Ninety-one was the lowest one and that was a couple of days ago. I told him that normal oxygen levels are 90-100. I told him that there are many reasons for shortness of breath other than just low oxygen. I will get a chest x-ray and also a nocturnal oximeter to see if he him I have sleep apnea or some other issues. He says that his shortness of breath is worse when he lays down flat. I told him that I would talk with the practical nursing teacher about our discussion. We discussed also that his kidney function is not very good. Normal is 60 and dialysis is 10. His level is around 18 now but it is relatively stable. He may need dialysis over the next few months. He denies any chest pain or shortness of breath. Exam Narrative: General: ill appearing male in NAD Heart: normal S1 and S2; no rub or gallop Lungs: decreased breath sounds at bases . No rub. Abdomen: soft, nontender, nondistended, positive bowel sounds Extremities: 1 + edema Sk
[2021-06-10] MEDS: ALPRAZolam (*CRX) 0.25 MG TABLET PO ×4 (08:05→17:02)
[2021-06-10] MEDS: ACETAMINOPHEN 500 MG TABLET PO (08:05)
[2021-06-10] MEDS: ATORVASTATIN 40 MG TABLET PO (08:05)
[2021-06-10] MEDS: METOPROLOL TARTRATE 50 MG TAB 100 MG PO ×2 (08:06→20:41)
[2021-06-10] MEDS: ASPIRIN 81 MG CHEWABLE TABLET PO (08:07)
[2021-06-10] MEDS: GABAPENTIN 300 MG CAPSULE PO ×2 (08:07→17:02)
[2021-06-10] MEDS: BUMETANIDE 1 MG TABLET PO (08:07)
[2021-06-10] MEDS: ISOSORBIDE MONONITRATE 60 MG TAB.ER.24H PO (08:07)
[2021-06-10] MEDS: CEPHALEXIN 500 MG CAPSULE PO ×2 (08:07→20:42)
[2021-06-10] MEDS: hydrALAZINE HCL 25 MG TABLET 75 MG PO ×2 (08:08→12:09)
[2021-06-10] MEDS: HEPARIN SODIUM 5,000 UNITS/ML VIAL 5000 UNITS SUB-Q (08:09)
--- NOTE | 2021-06-10 08:16 | PC.NURSE ---
This patient, Gustavo Chacko, was transferred to [[id number] ] on 06/10/21 at 0816. Personal belongings sent with patient. Report given by bicycle racer nurse]. Appropriate documentation sent with patient.
[2021-06-10] MEDS: ALBUTEROL SULFATE NEB 2.5 MG/0.5 ML INH INHALATION ×3 (08:40→19:50)
[2021-06-10 08:41] LABS: Glucose Point of Care 132 mg/dl (65-105)
[2021-06-10] MEDS: IPRATROPIUM BR 0.02% INH SOLN 0.5 MG/2.5 ML VIAL INHALATION ×3 (09:18→19:50)
[2021-06-10] MEDS: SODIUM POLYSTYRENE SULFONONATE 15 GM/60 ML BTL PO ×2 (09:34→17:01)
--- NOTE | 2021-06-10 11:10 | WPDNEURCNPN ---
Assessment and Plan Additional Plan multifactorial etiology with the possibility of the is small vessel involvement because of the underlying lacunar stroke of left thalamus but today's examination is consistent with the disc conjugate eye movements raising the possibility either the brainstem involvement or simply the 3rd nerve palsy patient is receiving all other medication if there is no contraindication we can add the aspirin and and physical therapy if MRI of the brain cannot be done Consult date: 06/10/21 Time Seen: 10:00 HPI: Gustavo Chacko is a 45 year old maleAdmitted to the hospital through the emergency room on May 20, 2021 for the complaints of change in the mental status with the ongoing history of 1. Congestive heart failure 2. Chronic renal disease 3. Diabetes mellitus , he was behaving normal and they advised him to come to the hospital he was noted to have bilateral lower extremities edema a leaking wound to his left lower extremity for which he was receiving the wound care. He has been taking glipizide 10 mg daily and amlodipine 10 mg daily and reportedly he was not allergic to any medication, his past history was consistent with chronic renal disease with cardiomyopathy and hypertension in addition to insulin-dependent diabetes mellitus and all the secondary complication of diabetes but additionally severe mitral valve regurgitation. Since admission he has been seen by multiple physicians and recently he has diagnosis of acute renal failure of multiple factorial nature with prerenal azotemia due to low albumin underlying progressive renal disease but he has also been noted to have hallucination has also been seen by the metal sorter with acute combined systolic and diastolic congestive heart failure anasarca pleural effusion which has significantly improved with the aggressive diuresis, his CT scan of the brain has documented chronic lacunar infarct of left thalamus with no evidence of major bleed or territorial stroke. The most recent serology was nonreactive for hepatitis AB C and HIV Review of Systems Review of Systems: All systems reviewed & are unremarkable except as noted in HPI and below PMFSH Past Medical History Medical History Anemia in chronic illness Cardiomyopathy Chronic kidney disease, stage 3b Combined congestive systolic and diastolic heart failure Mildly reduced LV systolic function with an EF of 40 to 45% and grade 2 diastolic dysfunction noted on echocardiogram dated 01/22/2021. Diverticulosis Hypertension Insulin dependent diabetes mellitus Hemoglobin A1c was 10.9% on 01/23/2021. Complicated by gastric dysmotility, neuropathy, and nephropathy. Ischemic cardiomyopathy Lexiscan stress on 01/26/2021 showed a large area of severe infarct involving the apical lateral and mid to basal anterolateral and inferolateral segments of left ventricle on myocardial perfusion imaging with a left ventricular ejection fracture measuring 45%. Peripheral vascular disease Severe mitral valve regurgitation (01/22/21) Surgical History Surgical History History of colonoscopy with polypectomy (01/27/21) 2 benign polyps removed. History of right below knee amputation Family History Family History Other Unknown family medical history Social History Social History Social History: The patient lives in [place] with his sister, [id number], nieces, and nephews. Nonsmoker. No alcohol or illicit substance abuse. He designates his sister, Birdie Stroud, as his surrogate decision maker and he wishes to be a full code. He has a son in his 20s. Smoking status: Unknown if ever smoked Spiritual care concerns: No Meds Home Medications and Allergies Home Medications Medication Instructions Recorded Confirme
[2021-06-10 11:45] LABS: Glucose Point of Care 133 mg/dl (65-105)
--- NOTE | 2021-06-10 14:05 | PC.NURSE ---
pt does not follow commands. pt says yes to any and every question. pt continues to climb out of the bed, wrap the blankets, sheets around his legs making his attempts to jump out of the bed more hazardous. pt speaks full Spanish sentences when he does not get his way
--- NOTE | 2021-06-10 14:08 | PC.NURSE ---
PT/OT was going to work with pt. the therapist began my taking his vitals and then sought me out stating that pt's oxygenation was in the 80's. I assessed pt and his oxygen levels fluctuated between 86-88%. I obtained a nasal cannula and placed patient on 2L and his oxygenation jumped to 100%. I weaned the oxygen to 1L and it dropped to 98-97%. I turned the oxygen off completely and pt's oxygenation remained at 94-96%. Pt would exhibit what appeared to be labored breathing particularly when asked to do something he did not want to do. I kept the pulse-ox meter on pt during the entirety of this interaction which lasted approximately 10-15 minutes.
--- NOTE | 2021-06-10 14:15 | PC.NURSE ---
I went to give pt his noon time meds and waited outside the room for a few minutes observing pt eating his lunch. While he was using his hands and not utensils, pt did not appear to have any problems picking up his food and placing it in his mouth at any time. When I entered the room and attempted to give pt his pills, he opened his mouth as if he wanted me to place the pills in his mouth. I informed pt that he needed to take the pills from the pill cup that I was attempting to hand him. Pt began waving his hands around as if he was completely blind but was able to point at his mouth without difficulty to indicate he wanted me to put the pills in his mouth. I held pt's hand, placed the pill cup in his hand, and compelled him to grasp the cup. Pt did so and placed the pills directly in his mouth without assistance.
--- NOTE | 2021-06-10 14:20 | PM.PNCARD ---
Progress Note: A&P Assessment and Plan (1) Acute combined systolic and diastolic CHF, NYHA class 1: Code(s): I50.41 - Acute combined systolic (congestive) and diastolic (congestive) heart failure Status: Acute Assessment and Plan: Patient presents with acute on chronic systolic and diastolic heart failure, anasarca, pleural effusions. Respiratory status has improved with aggressive diuresis. He is on room air with minimal O2 per nasal cannula intermittently. Edema is improved. Urine output has decreased over the past 24 hours, however. Now on oral bumex reduced to 1mg p.o. daily. However, despite the 13 L net output, he still has a moderate right pleural effusion. (2) Nonsustained ventricular tachycardia: Code(s): I47.2 - Ventricular tachycardia Status: Acute Assessment and Plan: No nonsustained V-tach earlier during this adm
--- NOTE | 2021-06-10 14:57 | PM.IMPN ---
Progress Note: A&P Assessment and Plan (1) Combined congestive systolic and diastolic heart failure: Qualifiers: Heart failure chronicity: acute on chronic Qualified Code(s): I50.43 - Acute on chronic combined systolic (congestive) and diastolic (congestive) heart failure Code(s): I50.40 - Unspecified combined systolic (congestive) and diastolic (congestive) heart failure Status: Acute Assessment and Plan: The patient has acute on chronic systolic and diastolic heart failure with anasarca and pleural effusions. Patient's edema is improving; he maintains a good urine output ; positive fluid balance overnight with 380mL. Continue oral bumex. Patient is complaining of shortness of bread is worse with laying down. On examination he maintain saturation in the 90-93% on room air. On auscultation breath sounds are present bilaterally; there is poor inspiratory effort; there is no evidence of wheezing crackles or rhonchi. (2) Acute kidney injury superimposed on chronic kidney disease: Code(s): N17.9 - Acute kidney failure, unspecified; N18.9 - Chronic kidney disease, unspecified Status: Acute Assessment and Plan: Etiology is due to diastolic dysfunction and natural history of progressive chronic kidney disease complicated by active diuresis in the setting of nephrotic syndrome low albumin. Creatinine is stabilizing in the 3.4-3.8 range. Renal function is very poor. Patient is experiencing episodes of car hyperkalemia managed medically with inserting dex was and Kayexalate on 06/09/2021. On today's labs the potassium remains elevated at 5.8. Kayexalate x2 doses ordered. Follow-up repeat potassium. (3) Anasarca: Code(s): R60.1 - Generalized edema Status: Acute Assessment and Plan: This is related to the nephrotic syndrome. Albumin is low at 3.3 BUN mild improvement with diuretics. Monitor clinically (4) Insulin dependent diabetes mellitus: Status: Chronic Assessment and Plan: Currently patient is no longer requiring insulin. Fasting blood glucose 117. Accu-Chek in the 108-133 range. Continue to monitor. (5) Acute respiratory failure: Qualifiers: Respiratory failure complication: unspecified whether with hypoxia or hypercapnia Qualified Code(s): J96.00 - Acute respiratory failure, unspecified whether with hypoxia or hypercapnia Code(s): J96.00 - Acute respiratory failure, unspecified whether with hypoxia or hypercapnia Status: Acute Assessment and Plan: Acute respiratory failure secondary to CHF exacerbation, improved with aggressive IV diuresis. Currently patient complaining of orthopnea symptoms. Repeat chest x-ray (6) Cellulitis of leg: Code(s): L03.119 - Cellulitis of unspecified part of limb Status: Acute Assessment and Plan: Currently no fever or leucocytosis. Local care with topical antibiotics (7) Urinary retention: Code(s): R33.9 - Retention of urine, unspecified Status: Acute Assessment and Plan: s/p fidel (8) CAD (coronary artery disease): Code(s): I25.10 - Atherosclerotic heart disease of [place] coronary artery without angina pectoris Status: Acute Assessment and Plan: Current [place] asymptomatic History of coronary artery disease, status post [place]. Currently Lipitor 40 mg p.o. q.h.s. plus Imdur 60 mg p.o. daily plus metoprolol 50 mg p.o. b.i.d. plus aspirin 81 mg p.o. daily are on hold. Hydralazine PRN (9) Hypertension: Code(s): I10 - Essential (primary) hypertension Status: Acute Assessment and Plan: Contiue bumetanide 2 mg PO daily in addition to hydralazine 75 mg p.o. t.i.d. plus Imdur 60 mg p.o. daily plus lisinopril 20 mg p.o. daily plus metoprolol 50 mg p.o. b.i.d. BP moderately controlled (10) Encephalopathy: Code(s): G93.40 - Encephalopathy, unspecified Status: Resolved Assessment and Plan:
[2021-06-10 15:54] LABS: Potassium 5.7 mmol/L (3.4-5.0)
--- NOTE | 2021-06-10 16:49 | PC.NURSE ---
pt's bed alarm went off; upon entering the room for the third time in 5 minutes. Pt was climbing over the bed rail for the 3rd time in five minutes while attempting to pull his parra catheter out. I stopped pt from doing so, repositioned him, and attempted to get him to eat dinner. I will continue to monitor.
[2021-06-10] MEDS: hydrALAZINE HCL 50 MG TABLET 100 MG PO (17:02)
--- NOTE | 2021-06-10 17:12 | PM.EVENT ---
Event Note Event Note Event Note: Discussed with nursing. In spite of multiple other discussions by staff members the patient does not understand why he can't have oxygen. We had a chest x-ray done and it shows pulmonary edema. The pulmonary edema is probably why he short of breath. I will give oxygen 1liter/minute to see if that makes the patient feel better. If he continues to be so anxious about this I am afraid that he might have some anxiety related cardiac issue. I will also increase diuretics substantially. His creatinine might rise and we may end up needing to dialyze him to get the fluid off. 25 minutes was spent discussing with nursing, and patient through materials technician.
[2021-06-10 17:22] LABS: Glucose Point of Care 136 mg/dl (65-105)
--- NOTE | 2021-06-10 17:29 | PC.NURSE ---
pt keeps screaming and yelling out, senorita, can you hear me? senorita, can you hear me? He is insisting upon using a rebreather mask and not the nasal cannula. He is currently wearing a nasal cannula on 1L oxygen and is satting at 100%. I continue to explain to him that he needs to use the nasal cannula including using google translate to provide me with the Amharic words, just in case there is a language barrier. Pt continues to scream and yell out. I have confirmed that he does not need a toilet, he is not hungry, he is not needing water, and he is not in pain.
--- NOTE | 2021-06-10 18:29 | PC.NURSE ---
Birdie, pt's niece, called wanting an update. She stated that she wanted pt transferred to a facility that could address his dementia/lack of orientation/cognition deficits and in particular wanted pt transferred to [facility] in [place]. Birdie further stated that pt has a long history of confusion, etc. and that she spoke with his doctor but was dismissed. Birdie also stated that even in conversations she has had with pt recently he is clearly confused, has no idea where he is, or what is going on and that is consistent with his behavior/thinking for quite some time. She asked who she could talk to that was higher up than me with the authority to transfer pt. I directed her to speak with care coordination as they would be the best to address her concerns.
[2021-06-10] MEDS: QUEtiapine FUMARATE 25 MG TABLET 50 MG PO (20:42)
[2021-06-10] MEDS: BUMETANIDE 1 MG TABLET 4 MG PO (20:42)
[2021-06-10] MEDS: TOLNAFTATE 1% POWDER 45 GM BTL 1 APPLIC TOPICAL (20:43)
[2021-06-10] MEDS: MUPIROCIN 2% OINT 22 GM TUBE 1 APPLIC TOPICAL (20:44)
[2021-06-10 21:38] LABS: Glucose Point of Care 159 mg/dl (65-105)
[2021-06-11] VITALS (17 sets, daily range): BP systolic 132–142; BP diastolic 57–68; PULSE 49–80; RESP 18–27; TEMP 35.8–36.5; O2SAT 94–100
--- NOTE | 2021-06-11 01:23 | PCRCNOTE ---
Apnea link was applied to patient around 9:30. Pt took apnea link off and unsure of the exact time. I went in to check on him at 1 and it was off in his bed. The link wasnt on long enough to give enough data. Pt would not leave anything on at this point and took all leads on him off. Took everything off apart. Pt refused to try it again.
[2021-06-11] MEDS: IPRATROPIUM BR 0.02% INH SOLN 0.5 MG/2.5 ML VIAL INHALATION ×4 (01:27→21:13)
[2021-06-11] MEDS: ALBUTEROL SULFATE NEB 2.5 MG/0.5 ML INH INHALATION ×4 (01:27→21:13)
[2021-06-11] MEDS: ALPRAZolam (*CRX) 0.25 MG TABLET PO (02:09)
[2021-06-11 05:34] LABS: Basophils Percent Auto 0.3 % (0.2-1.2); Eosinophils Absolute Auto 0.2 K/mm3 (0-0.3); Eosinophils Percent Auto 1.8 % (0-4.4); Hematocrit 29.9 % (42.0-52.0); Hemoglobin 8.4 g/dL (14.0-18.0); Immature Granulocyte Absolute 0.06 K/mm3 (0.00-0.031); Immature Granulocyte Percent A 0.5 % (0-0.5); Lymphocytes Absolute Auto 0.61 K/mm3 (0.9-3.2); Lymphocytes Percent Auto 5.4 % (18.3-44.2); Mean Corpuscular HGB Conc 28.1 g/dl (32-36); Mean Corpuscular Hemoglobin 26.1 pg (26-34); Mean Corpuscular Volume 92.9 fl (80-100); Mean Platelet Volume 11.9 fl (7.4-10.4); Monocytes Absolute Auto 0.8 K/mm3 (0.1-0.6); Monocytes Percent Auto 7.3 % (2.6-8.5); Neutrophils Absolute Auto 9.6 K/mm3 (1.3-6.7); Neutrophils Percent Auto 84.7 % (45.5-73.1); Platelet Count Result 247 k/mm3 (150-375); Red Blood Count 3.22 M/mm3 (4.6-6.20); Red Cell Distribution Width 17.3 % (11.5-14.5); White Blood Count 11.3 K/mm3 (4.5-10.0)
[2021-06-11 05:45] LABS: Albumin Level 3.2 g/dL (3.5-5.1); Anion Gap 8 mmol/L (8-16); Blood Urea Nitrogen 70 mg/dL (9-20); Calcium 8.3 mg/dL (8.4-10.2); Carbon Dioxide 29 mmol/L (22-30); Chloride 104 mmol/L (98-107); Estimated CRCL calculation 24 ml/min; Estimated Glomerular Filt Rate 17; Glucose 142 mg/dL (65-110); Phosphorus 5.2 mg/dL (2.5-4.5); Potassium 5.2 mmol/L (3.4-5.0); Sodium 141 mmol/L (137-145)
[2021-06-11 06:45] LABS: Anisocytosis 1+ (NORMAL); Hypochromasia 1+ (NORMAL); Ovalocytes 1+ (NORMAL); Platelet Estimate Adequate (Adequate)
--- NOTE | 2021-06-11 07:33 | PM.PNNEP ---
Progress Note: A&P Assessment and Plan (1) GLENN (acute kidney injury): Code(s): N17.9 - Acute kidney failure, unspecified Status: Acute Assessment and Plan: etiology is probably multifactorial, including diastolic dysfunction, pre renal azotemia due to low albumin, and progression of disease creatinine seems to have stabilized at around 3.3-3.6. this is a little higher at 3.8 today. I expect this to rise with diuresis. The patient and I again reviewed that his kidney function is not very good. He may end up needing dialysis if the diuretics do not work. Yesterday I ordered IV diuretics and the nurse called me and said that he keeps pulling his IV out. He also keeps pulling his oxygen off and his dressings apart. Yesterday when I talked warm it appeared to be during a period of lucency. Today when I talk with them he knows that he is in the hospital and he thinks it is 2021. I talked at length with the patient that he needs to leave his IVs in and his oxygen alone. He says he will not pull his IVs out. I fear that he will have anxiety/ confusion spells however that may lead to him pulling out his IV. I asked the nurse to put an IV in but have the Bumex 2mg ready and give the Bumex as soon as the IV goes in so that least he gets 1 IV dose. (2) Stage 3b chronic kidney disease: Code(s): N18.32 - Chronic kidney disease, stage 3b Status: Chronic Assessment and Plan: suspect baseline creatinine may be the current 1. due to biopsy proven diabetic nephropathy along with HTN/vascular disease suspect creatinine/kidney function will always fluctuate depending on his volume status and necessity of diuretics to achieve euvolemia (3) Hallucinations: Code(s): R44.3 - Hallucinations, unspecified Status: Acute Assessment and Plan: It is not clear whether he is hallucinating or not. I do not think he is according to what the nurses say and has not expressed this to me currently. But he does have his periods of confusion. (4) Acute combined systolic and diastolic CHF, NYHA class 1: Code(s): I50.41 - Acute combined systolic (congestive) and diastolic (congestive) heart failure Status: Acute Assessment and Plan: well known issues with several recent hospitalizations for this problems He seems to be doing pretty well with oral Bumex right now. We discussed that he needs to avoid salty food at home. The patient looks more short of breath today. Will try giving him IV Bumex if possible. (5) Anasarca: Code(s): R60.1 - Generalized edema Status: Acute Assessment and Plan: due to heart failure but his nephrotic range proteinuria/syndrome is also playing a role -- he is spilling over 14 g of protein per day. may have to accept a higher creatinine to achieve euvolemia (6) Hypertension: Code(s): I10 - Essential (primary) hypertension Status: Acute Assessment and Plan: blood pressure is running 110-150 on metoprolol and hydralazine. Lisinopril is currently on hold BP is doing better. (7) Diabetes: Code(s): E11.9 - Type 2 diabetes mellitus without complications Status: Chronic Assessment and Plan: follow Accu-Cheks on sliding-scale insulin Subjective Date/time seen: 06/11/21 07:33 Interval history: I talked with the patient using a cardiology manager. the patient denies shortness of breath. However he looks a little dyspneic to me now. He denies any pain. He has oxygen on 1liter/minute. He did not realize that that was oxygen. He is a lot calmer today. Exam Narrative: General: WDWN male in NAD . He looks more dyspneic. Heart: normal S1 and S2; no rub or gallop Lungs: decreased breath sounds at bases . No rub. Abdomen: soft, nontender, nondistended, positive bowel sounds Extremities: 1-2 + edema Skin: No rash. Objective Data Vital Signs Vital Signs: Vital Signs -
[2021-06-11 08:08] LABS: Glucose Point of Care 144 mg/dl (65-105)
--- NOTE | 2021-06-11 08:45 | PM.IMPN ---
Progress Note: A&P Assessment and Plan (1) Combined congestive systolic and diastolic heart failure: Qualifiers: Heart failure chronicity: acute on chronic Qualified Code(s): I50.43 - Acute on chronic combined systolic (congestive) and diastolic (congestive) heart failure Code(s): I50.40 - Unspecified combined systolic (congestive) and diastolic (congestive) heart failure Status: Acute Assessment and Plan: The patient has acute on chronic systolic and diastolic heart failure with anasarca and pleural effusions. Patient's edema is improving; he maintains a good urine output ; positive fluid balance overnight with -290 mL. Continue oral bumex. Patient is complaining of shortness of bread is worse with laying down. On examination he maintain saturation in the 94-96% on room air. On auscultation breath sounds are present bilaterally; there is poor inspiratory effort; there is no evidence of wheezing crackles or rhonchi. (2) Acute kidney injury superimposed on chronic kidney disease: Code(s): N17.9 - Acute kidney failure, unspecified; N18.9 - Chronic kidney disease, unspecified Status: Acute Assessment and Plan: Etiology is due to diastolic dysfunction and natural history of progressive chronic kidney disease complicated by active diuresis in the setting of nephrotic syndrome low albumin. Creatinine is stabilizing in the 3.5-3.8 range. Renal function is very poor. Patient is experiencing episodes of hyperkalemia managed medically with insulin and dextrose was and Kayexalate on 06/10/2021. On today's labs the potassium has improved to 5.8. Follow-up repeat potassium this afternoon. (3) Anasarca: Code(s): R60.1 - Generalized edema Status: Acute Assessment and Plan: This is related to the nephrotic syndrome. Albumin is low at 3.2 BUN mild improvement with diuretics. Monitor clinically (4) Insulin dependent diabetes mellitus: Status: Chronic Assessment and Plan: Currently patient is no longer requiring insulin. Fasting blood glucose 142. Accu-Chek 144 range. Continue to monitor. (5) Acute respiratory failure: Qualifiers: Respiratory failure complication: unspecified whether with hypoxia or hypercapnia Qualified Code(s): J96.00 - Acute respiratory failure, unspecified whether with hypoxia or hypercapnia Code(s): J96.00 - Acute respiratory failure, unspecified whether with hypoxia or hypercapnia Status: Acute Assessment and Plan: Acute respiratory failure secondary to CHF exacerbation, improved with aggressive IV diuresis. Currently patient complaining of orthopnea symptoms. Per nephrology bumex increased to 2 mg IV BID. Repeat chest x-ray reveals pulmonary edema. start oxygen supplementation at 1 liter. (6) Cellulitis of leg: Code(s): L03.119 - Cellulitis of unspecified part of limb Status: Acute Assessment and Plan: Currently no fever or leucocytosis. Local care with topical antibiotics (7) Urinary retention: Code(s): R33.9 - Retention of urine, unspecified Status: Acute Assessment and Plan: s/p fidel (8) CAD (coronary artery disease): Code(s): I25.10 - Atherosclerotic heart disease of [place] coronary artery without angina pectoris Status: Acute Assessment and Plan: Currently asymptomatic, no chest pain. History of coronary artery disease, status post [place]. Currently Lipitor 40 mg p.o. q.h.s. plus Imdur 60 mg p.o. daily plus metoprolol 50 mg p.o. b.i.d. plus aspirin 81 mg p.o. daily are on hold. Hydralazine PRN (9) Hypertension: Code(s): I10 - Essential (primary) hypertension Status: Acute Assessment and Plan: Increasee bumetanide 2 mg IV BID in addition to hydralazine 75 mg p.o. t.i.d. plus Imdur 60 mg p.o. daily plus lisinopril 20 mg p.o. daily plus metoprolol 50 mg p.o. b.i.d. BP moderately controlled (10) Encephalopathy: C
[2021-06-11] MEDS: BUMETANIDE 1 MG TABLET 4 MG PO (09:33)
[2021-06-11] MEDS: CEPHALEXIN 500 MG CAPSULE PO ×2 (09:33→21:39)
[2021-06-11] MEDS: GABAPENTIN 300 MG CAPSULE PO (09:33)
[2021-06-11] MEDS: hydrALAZINE HCL 50 MG TABLET 100 MG PO (09:34)
[2021-06-11] MEDS: metOLazone 5 MG TABLET PO (09:34)
[2021-06-11] MEDS: METOPROLOL TARTRATE 50 MG TAB 100 MG PO (09:34)
[2021-06-11] MEDS: ATORVASTATIN 40 MG TABLET PO (09:35)
[2021-06-11] MEDS: ISOSORBIDE MONONITRATE 60 MG TAB.ER.24H PO (09:35)
[2021-06-11] MEDS: TOLNAFTATE 1% POWDER 45 GM BTL 1 APPLIC TOPICAL ×2 (09:37→21:48)
[2021-06-11] MEDS: MUPIROCIN 2% OINT 22 GM TUBE 1 APPLIC TOPICAL ×2 (09:37→21:48)
[2021-06-11 12:21] LABS: Glucose Point of Care 241 mg/dl (65-105)
[2021-06-11] MEDS: HEPARIN SODIUM 5,000 UNITS/ML VIAL 5000 UNITS SUB-Q ×2 (12:27→21:45)
[2021-06-11 12:29] LABS: Base Excess ABG 0.1 mEq/l (+/-2.0); Fractional Inspired Oxygen 28 %; HCO3 ABG 27.4 mEq/l (22.0-26.0); Oxygen Content ABG 12.6 %vol (16.0-22.0); Oxygen Saturation ABG 98.3 % (95.0-100.0); PO2 ABG 133.6 mmHg (80.0-100.0); PO2 FiO2 Ratio Arterial Blood 4.77 %
[2021-06-11 12:32] LABS: PCO2 ABG 60.1 mmHg (35.0-45.0); pH ABG 7.277 (7.350-7.450)
[2021-06-11 12:33] LABS: Device NASAL CANNULA; Site Drawn LEFT RADIAL
[2021-06-11] MEDS: INSULIN ASPART (*BKC) 100 UNITS/ML SUB-Q (12:38)
[2021-06-11 13:12] LABS: Potassium 5.2 mmol/L (3.4-5.0)
[2021-06-11 16:40] LABS: Glucose Point of Care 120 mg/dl (65-105)
[2021-06-11] MEDS: EPOETIN ALFA-EPBX 10,000 UNITS/ML VIAL 10000 UNITS SUB-Q (17:32)
[2021-06-11] MEDS: BUMETANIDE INJ 1 MG/4 ML VIAL 2 MG IV PUSH (17:32)
--- NOTE | 2021-06-11 18:00 | PM.EVENT ---
Event Note Event Note Event Note: Patient had a rapid response due to altered mental status and unresponsiveness. Patient was examined at the bedside. Vital signs were stable with a temperature of 97.1? a pulse rate of 56 respiration 27 pulse ox 100 blood pressure 132/57. Patient open his eyes with chest pain stimulation. On auscultation heart rate was regular and lungs were clear bilaterally. Stat ABG in 2 potassium were ordered. ABG showed a pH of 7.27 a pCO2 of 60 PO2 133 bicarb 27.4 and O2 saturation of 98.3. Repeat potassium was normal at 5.2. Decision was made to transfer the patient to IMU to start him on noninvasive ventilation with BiPAP 12/6 2 L oxygen. Repeat ABG in a.m..
[2021-06-11 18:39] LABS: Alveolar/Arterial O2 Gradient 26.3 mmHg; Base Excess ABG -0.6 mEq/l (+/-2.0); Carboxyhemoglobin 0.3 % THb (0-2.0); Fractional Inspired Oxygen 30 %; HCO3 ABG 25.4 mEq/l (22.0-26.0); Methemoglobin ABG 0.4 %THb (0-1.5); Oxygen Content ABG 11.9 %vol (16.0-22.0); Oxygen Saturation ABG 98.4 % (95.0-100.0); PO2 FiO2 Ratio Arterial Blood 4.33 %; Reduced Hemoglobin 2.3 %THb (0-5.0); Total Hemoglobin 8.5 g/dL (12.0-18.0); pH ABG 7.333 (7.350-7.450)
[2021-06-11 18:40] LABS: Device NON-INVASIVE VENT; Modified Allen's Test Pass; Site Drawn LEFT RADIAL
[2021-06-11 18:41] LABS: Non-Invasive Expiratory Pressure 6 CMH2O; Non-Invasive Inspiratory Pressure 12 CMH2O; Non-Invasive Vent Rate 18 /MIN
[2021-06-11] MEDS: ACETAMINOPHEN 500 MG TABLET PO (21:44)
[2021-06-12] VITALS (29 sets, daily range): BP systolic 115–147; BP diastolic 52–74; PULSE 54–87; RESP 16–23; TEMP 36.2–36.9; O2SAT 94–98
[2021-06-12 00:20] LABS: Glucose Point of Care 191 mg/dl (65-105)
[2021-06-12] MEDS: ALBUTEROL SULFATE NEB 2.5 MG/0.5 ML INH INHALATION ×4 (02:02→18:13)
[2021-06-12] MEDS: IPRATROPIUM BR 0.02% INH SOLN 0.5 MG/2.5 ML VIAL INHALATION ×4 (02:02→18:13)
[2021-06-12 04:57] LABS: Basophils Percent Auto 0.3 % (0.2-1.2); Eosinophils Absolute Auto 0.3 K/mm3 (0-0.3); Eosinophils Percent Auto 2.4 % (0-4.4); Hematocrit 28.6 % (42.0-52.0); Hemoglobin 8.2 g/dL (14.0-18.0); Immature Granulocyte Absolute 0.05 K/mm3 (0.00-0.031); Immature Granulocyte Percent A 0.4 % (0-0.5); Lymphocytes Absolute Auto 0.55 K/mm3 (0.9-3.2); Lymphocytes Percent Auto 4.7 % (18.3-44.2); Mean Corpuscular HGB Conc 28.7 g/dl (32-36); Mean Corpuscular Volume 90.8 fl (80-100); Monocytes Absolute Auto 0.7 K/mm3 (0.1-0.6); Monocytes Percent Auto 6.2 % (2.6-8.5); Platelet Count Result 230 k/mm3 (150-375); Red Blood Count 3.15 M/mm3 (4.6-6.20); Red Cell Distribution Width 17.3 % (11.5-14.5); White Blood Count 11.6 K/mm3 (4.5-10.0)
[2021-06-12 05:07] LABS: Alveolar/Arterial O2 Gradient 19.3 mmHg; Base Excess ABG 1.9 mEq/l (+/-2.0); Device NASAL CANNULA; Fractional Inspired Oxygen 26 %; HCO3 ABG 28.5 mEq/l (22.0-26.0); Liters per Minute 1.5 LPM; Modified Allen's Test Pass; Oxygen Content ABG 12.4 %vol (16.0-22.0); Oxyhemoglobin 96.3 % THb (90.0-100.0); PCO2 ABG 56.1 mmHg (35.0-45.0); PO2 ABG 99.6 mmHg (80.0-100.0); PO2 FiO2 Ratio Arterial Blood 3.83 %; Site Drawn RIGHT RADIAL; pH ABG 7.324 (7.350-7.450)
[2021-06-12 05:20] LABS: Albumin Level 2.8 g/dL (3.5-5.1); Anion Gap 6 mmol/L (8-16); Blood Urea Nitrogen 72 mg/dL (9-20); Calcium 8.2 mg/dL (8.4-10.2); Carbon Dioxide 30 mmol/L (22-30); Chloride 104 mmol/L (98-107); Estimated CRCL calculation 24 ml/min; Estimated Glomerular Filt Rate 18; Glucose 170 mg/dL (65-110); Phosphorus 5.2 mg/dL (2.5-4.5); Sodium 140 mmol/L (137-145)
[2021-06-12 08:53] LABS: Glucose Point of Care 204 mg/dl (65-105)
[2021-06-12] MEDS: INSULIN ASPART (*BKC) 100 UNITS/ML SUB-Q ×3 (09:00→18:22)
[2021-06-12] MEDS: GABAPENTIN 300 MG CAPSULE PO ×3 (09:05→18:22)
[2021-06-12] MEDS: ISOSORBIDE MONONITRATE 60 MG TAB.ER.24H PO (09:05)
[2021-06-12] MEDS: metOLazone 5 MG TABLET PO (09:05)
[2021-06-12] MEDS: HEPARIN SODIUM 5,000 UNITS/ML VIAL 5000 UNITS SUB-Q ×2 (09:05→21:51)
[2021-06-12] MEDS: hydrALAZINE HCL 50 MG TABLET 100 MG PO ×3 (09:06→18:22)
[2021-06-12] MEDS: BUMETANIDE INJ 1 MG/4 ML VIAL 2 MG IV PUSH ×2 (09:06→18:22)
[2021-06-12] MEDS: ATORVASTATIN 40 MG TABLET PO (09:06)
[2021-06-12] MEDS: ASPIRIN 81 MG CHEWABLE TABLET PO (09:06)
[2021-06-12] MEDS: CEPHALEXIN 500 MG CAPSULE PO ×2 (09:06→21:50)
[2021-06-12] MEDS: IRON SUCROSE COMPLEX 200 MG in SODIUM CHLORIDE 0.9% IV 50 ML 120 MG IVPB (09:07)
[2021-06-12] MEDS: METOPROLOL TARTRATE 50 MG TAB 100 MG PO ×2 (09:07→21:50)
[2021-06-12] MEDS: TOLNAFTATE 1% POWDER 45 GM BTL 1 APPLIC TOPICAL ×2 (09:14→21:52)
[2021-06-12] MEDS: MUPIROCIN 2% OINT 22 GM TUBE 1 APPLIC TOPICAL ×2 (09:14→21:51)
--- NOTE | 2021-06-12 11:25 | PCDIET ---
Nutrition Follow-Up Complete: Nutrition Diagnosis: Inadequate oral intake related to altered mental status as evidenced by need for tube feedings. Nutrition Goal: Patient to meet estimated nutritional needs. Goal met. Average intake since 06/08/21 has been 77% of recorded meals on heart healthy diet. Last recorded weight is 95.1 kg which is down from last review. Bowel Motility: BM x 1 today. Labs Reviewed: WBC (11.6), RBC (3.15), Hgb (8.2), Hct (28.6), Glu (170), BUN (72), Cr (3.7), PO4 (5.2), Alb (2.8) Meds Noted: Albuterol, Lipitor, Bumex, Keflex, Heparin, Apresoline, Novolog, Atrovent, Iron Sucrose, Imdur, Zaroxolyn, Lopressor Additional Notes: Medial sacrum with deep tissue injury. Left knee with abrasion and left foot with scab. Ulcer to left lower leg. Will continue to monitor with same goal. Nutrition Monitoring and Evaluation: Follow up in 5 days.
[2021-06-12 12:22] LABS: Glucose Point of Care 209 mg/dl (65-105)
--- NOTE | 2021-06-12 14:45 | PCPTNOTE ---
Patient transferred from 2 [facility] to IMU due to change in medical status. Will resume PT when medically able to participate.
--- NOTE | 2021-06-12 15:33 | PM.PNCARD ---
Progress Note: A&P Additional Plan Patient with advanced cardiorenal syndrome with bad cardiomyopathy and persistent volume overload despite aggressive treatment in the hospital. His renal function has become severely depressed and he is now symptomatic the uremic. Indication for dialysis is evident and I agree with Nephrology plans to institute this at this time. Long-term prognosis is obviously quite for an unfortunate in this 45-year-old man. Blayne Quinonez MD LOCATED WITHIN [facility] Subjective Date/time seen: Date of service 06/12/21 15:33 Interval history: Follow-up visit in this 45-year-old man with: Significant cardiomyopathy presumed ischemic in nature. Patient has persistent resistant volume overload and worsening renal dysfunction at this point and has become symptomatic the uremic starting last evening. He had been treated earlier in the hospitalization with ionotropic support with dobutamine for about 2 weeks which provided minimal improvement. The patient is now responsive but semi coherent and being seen in conjunction with the greenkeeper. Plans are being made to consult surgeon for dialysis access and start dialysis tomorrow. Exam HENMT: Mouth: Yes moist mucous membranes Eyes: Sclera: sclerae normal Pupils: Equal, round and reactive pupils present Neck: Other: Very thick neck difficult to discern JVD Resp: Effort & Inspection: normal respiratory effort Other: Dullness at the bases bilaterally Cardio: Other: PMI not palpable no audible cardiac murmur GI: GI Palp: Yes Soft to palpation Auscultation: normal bowel sounds Skin: General skin exam: normal color Neuro: Other: Patient is arousable and coherent and through the petroleum geology faculty member Extrem: Other: Left lower extremity remains markedly edematous status post right lower extremity amputation Objective Data Vital Signs Vital Signs: Vital Signs - 24 hr 06/11/21 16:00 06/11/21 16:22 06/11/21 16:35 Temperature 36.5 C Pulse Rate 52 L 52 L Respiratory Rate 25 H 23 H Blood Pressure 142/68 H Pulse Oximetry 100 100 100 06/11/21 16:50 06/11/21 19:36 06/11/21 20:00 Temperature 36.2 C L Pulse Rate 52 L 49 L 50 L Respiratory Rate 20 Blood Pressure 140/65 Pulse Oximetry 100 95 06/11/21 21:13 06/11/21 21:15 06/11/21 21:22 Temperature Pulse Rate 52 L 52 L 57 L Respiratory Rate 20 22 H 20 Blood Pressure Pulse Oximetry 100 06/11/21 22:00 06/12/21 00:00 06/12/21 02:00 Temperature 36.2 C L Pulse Rate 58 L 54 L 58 L Respiratory Rate 16 Blood Pressure 120/58 L Pulse Oximetry 96 06/12/21 02:03 06/12/21 02:11 06/12/21 03:22 Temperature 36.4 C L Pulse Rate 59 L 58 L 87 Respiratory Rate 20 20 20 Blood Pressure 123/58 L Pulse Oximetry 98 06/12/21 04:00 06/12/21 05:12 06/12/21 06:00 Temperature Pulse Rate 59 L 69 64 Respiratory Rate 20 Blood Pressure Pulse Oximetry 94 97 06/12/21 08:00 06/12/21 08:40 06/12/21 08:50 Temperature 36.6 C Pulse Rate 62 64 62 Respiratory Rate 18 20 20 Blood Pressure 147/60 H Pulse Oximetry 96 96 96 06/12/21 09:00 06/12/21 09:07 06/12/21 10:00 Temperature Pulse Rate 71 64 71 Respiratory Rate 18 Blood Pressure Pulse Oximetry 96 06/12/21 11:54 06/12/21 12:00 06/12/21 13:00 Temperature 36.9 C Pulse Rate 71 72 72 Respiratory Rate 18 18 Blood Pressure 143/74 H Pulse Oximetry 94 94 06/12/21 14:00 06/12/21 14:10 Temperature Pulse Rate 76 75 Respiratory Rate 20 20 Blood Pressure Pulse Oximetry Intake/Output Intake/Output: Intake & Output 06/09/21 06/10/21 06/11/21 06/12/21 23:59 23:59 23:59 23:59 Intake Total 1260 858 311 3353 Output Total 399 802 8970 800 Balance 560 60 -1060 1450 Meds/Results Medications: Active Medications Generic Name Dose Route Start Last Admin Trade Name Freq PRN Reason Stop Dose Admin Acetaminophen 500 mg 05/30/21 21:16 06/11/21 21:44 Acetaminophen 500 Mg Tablet PO 500 m
--- NOTE | 2021-06-12 15:33 | PM.PNNEP ---
Progress Note: A&P Assessment and Plan (1) GLENN (acute kidney injury): Code(s): N17.9 - Acute kidney failure, unspecified Status: Acute Assessment and Plan: etiology is probably multifactorial, including diastolic dysfunction, pre renal azotemia due to low albumin, and progression of disease creatinine seems to have stabilized at around 3.3-3.6. this is a little higher at 3.8 today. I expect this to rise with diuresis. Urine output is not all that great. Patient has confusion and asterixis. Possibly this is all just uremia. As above will have a dialysis catheter placed and initiate dialysis tomorrow. (2) Stage 3b chronic kidney disease: Code(s): N18.32 - Chronic kidney disease, stage 3b Status: Chronic Assessment and Plan: suspect baseline creatinine may be the current 1. due to biopsy proven diabetic nephropathy along with HTN/vascular disease suspect creatinine/kidney function will always fluctuate depending on his volume status and necessity of diuretics to achieve euvolemia (3) Hallucinations: Code(s): R44.3 - Hallucinations, unspecified Status: Acute Assessment and Plan: It is not clear whether he is hallucinating or not. I do not think he is according to what the nurses say and has not expressed this to me currently. But he does have his periods of confusion. (4) Acute combined systolic and diastolic CHF, NYHA class 1: Code(s): I50.41 - Acute combined systolic (congestive) and diastolic (congestive) heart failure Status: Acute Assessment and Plan: well known issues with several recent hospitalizations for this problems Ejection fraction is low. Dobutamine has been used in the past but only with temporary improvement (5) Anasarca: Code(s): R60.1 - Generalized edema Status: Acute Assessment and Plan: due to heart failure but his nephrotic range proteinuria/syndrome is also playing a role -- he is spilling over 14 g of protein per day. may have to accept a higher creatinine to achieve euvolemia (6) Hypertension: Code(s): I10 - Essential (primary) hypertension Status: Acute Assessment and Plan: blood pressure is running 110-150 on metoprolol and hydralazine. Lisinopril is currently on hold BP is doing better. (7) Diabetes: Code(s): E11.9 - Type 2 diabetes mellitus without complications Status: Chronic Assessment and Plan: follow Accu-Cheks on sliding-scale insulin Subjective Date/time seen: 06/12/21 15:33 Interval history: Gustavo is an unfortunate 45-year-old male who has acute kidney injury on top of chronic kidney disease. Last night the patient became ill and so was transferred back to the IMU. His level of consciousness has been up and down over the past few weeks. He was a little bit better over the last couple of though still was intermittently confused. Last night the patient had a rapid response because of altered mental status and unresponsiveness. Blood gases were done showing CO2 retention. He was moved to the IMU and placed on a BiPAP mask. He improved. Now he is off the BiPAP mask and off oxygen. The patient is somewhat drowsy. He has no shortness of breath chest pain or belly pain. He does still have some swelling. I talked to him at length. The patient has an elevated creatinine, he has asterixis, and intermittent confusion. He has volume overload by chest x-ray and by exam. I think that he is uremic and volume overloaded so I think there is no choice but to initiate dialysis. I talked might length about the risks benefits alternatives and process of dialysis and he agrees to proceed. I question whether he understood much of this even though we used an cone baker machine per Svetlana. I have put a call in to Birdie Chacko to review this situation as well. I will have surgeons talked to him about placing a tunneled dialysis catheter and
[2021-06-12 17:11] LABS: Glucose Point of Care 243 mg/dl (65-105)
--- NOTE | 2021-06-12 17:37 | PM.IMPN ---
Progress Note: A&P Assessment and Plan (1) Combined congestive systolic and diastolic heart failure: Qualifiers: Heart failure chronicity: acute on chronic Qualified Code(s): I50.43 - Acute on chronic combined systolic (congestive) and diastolic (congestive) heart failure Code(s): I50.40 - Unspecified combined systolic (congestive) and diastolic (congestive) heart failure Status: Acute Assessment and Plan: The patient has acute on chronic systolic and diastolic heart failure with anasarca and pleural effusions. Patient's edema was somewhat improving; he maintains a good urine output at 1.4 liters ; fluid balance overnight is positive with 1 L. Continue IV bumex. Patient is complaining of shortness of bread is worse with laying down. On examination he maintain saturation in the 94-96% on room air. He had a rapid response cord on 06/11 where it was found to be hypercarbic unresponsive and had to be started on noninvasive ventilation with BiPAP. After 6 hours of BiPAP is gas station is improved and he was weaned to room air. On auscultation breath sounds are present bilaterally; there is poor inspiratory effort; there is no evidence of wheezing crackles or rhonchi. Patient has confusion and asterixis. Possibly this is all just uremia. Per nephrology, we will have a dialysis catheter placed and initiate dialysis tomorrow. (2) Acute kidney injury superimposed on chronic kidney disease: Code(s): N17.9 - Acute kidney failure, unspecified; N18.9 - Chronic kidney disease, unspecified Status: Acute Assessment and Plan: Etiology is due to diastolic dysfunction and natural history of progressive chronic kidney disease complicated by active diuresis in the setting of nephrotic syndrome low albumin. Creatinine is stabilizing in the 3.5-3.8 range. Renal function is very poor. Patient is experiencing episodes of hyperkalemia managed medically with insulin and dextrose was and Kayexalate on 06/10/2021. On today's labs the potassium has improved to 5.0. Follow-up repeat potassium this afternoon. (3) Anasarca: Code(s): R60.1 - Generalized edema Status: Acute Assessment and Plan: This is related to the nephrotic syndrome. Albumin is low at 3.2 BUN mild improvement with diuretics. Monitor clinically. Apparent improvement of peripheral edema. However patient presents persistent shortness of breath has worsened in recumbent position and appeared to be accumulating fluid centrally. Per Nephrology dialysis catheter will place 2 more to initiate renal replacement therapy. (4) Insulin dependent diabetes mellitus: Status: Chronic Assessment and Plan: Currently patient is no longer requiring insulin. Fasting blood glucose 170. Accu-Chek 204-243 range. Continue to monitor. (5) Acute respiratory failure: Qualifiers: Respiratory failure complication: unspecified whether with hypoxia or hypercapnia Qualified Code(s): J96.00 - Acute respiratory failure, unspecified whether with hypoxia or hypercapnia Code(s): J96.00 - Acute respiratory failure, unspecified whether with hypoxia or hypercapnia Status: Acute Assessment and Plan: Acute respiratory failure secondary to CHF exacerbation, improved with aggressive IV diuresis. Currently patient complaining of orthopnea symptoms. Per nephrology bumex increased to 2 mg IV BID. Repeat chest x-ray reveals pulmonary edema. Patient briefly required some noninvasive 1 activation on 06/11. Dialysis catheter will place for initiation of dialysis on 06/13. (6) Cellulitis of leg: Code(s): L03.119 - Cellulitis of unspecified part of limb Status: Acute Assessment and Plan: Currently no fever or leucocytosis. Local care with topical antibiotics (7) Urinary retention: Code(s): R33.9 - Retention of urine, unspecified Status: Acute Assessment and Plan: s/p fidel (8) CAD (co
[2021-06-12 21:38] LABS: Glucose Point of Care 173 mg/dl (65-105)
[2021-06-13] VITALS (39 sets, daily range): BP systolic 127–178; BP diastolic 57–95; PULSE 66–79; RESP 16–25; TEMP 36.2–37.8; O2SAT 92–100
[2021-06-13] MEDS: IPRATROPIUM BR 0.02% INH SOLN 0.5 MG/2.5 ML VIAL INHALATION ×3 (02:09→23:38)
[2021-06-13] MEDS: ALBUTEROL SULFATE NEB 2.5 MG/0.5 ML INH INHALATION ×3 (02:09→23:38)
--- NOTE | 2021-06-13 06:43 | WPDANESEPP ---
Anes - Eval Pre Procedure Procedure: Operation Date: 06/13/21 10:30 Proposed Procedures p Insertion Right Hemodialysis Catheter - Mike Tilley MD Date/Time: 06/13/21 06:43 Pre Op Diagnosis: CHF/acute on chronic renal failure/encephalopathy Patient Data Age: 45 Gender: M Height: 1.65 m Weight: 95.1 kg Last Vital Signs Temp 37.0 C 06/13/21 04:00 Pulse 79 06/13/21 06:00 Resp 19 06/13/21 04:00 BP 136/61 06/13/21 04:00 Pulse Ox 92 06/13/21 04:00 Allergies Allergy/AdvReac Type Severity Reaction Status Date / Time No Known Allergies Allergy Verified 05/20/21 19:58 Home Medications Medication Instructions Recorded Confirmed Type bumetanide 1 mg PO BID #60 tablet 02/25/21 05/21/21 Rx isosorbide mononitrate 60 mg PO DAILY PRN #30 tablet 02/25/21 05/21/21 Rx lisinopril 20 mg PO QAM #30 tablet 02/25/21 05/21/21 Rx metoprolol tartrate 50 mg PO BID #60 tablet 02/25/21 05/21/21 Rx amlodipine 10 mg PO DAILY 05/21/21 05/21/21 History glipizide 10 mg PO DAILY 05/21/21 05/21/21 History Laboratory Tests 06/12/21 06/12/21 06/12/21 08:17 11:58 15:45 POC Capillary Glucose 204 mg/dl H mg/dl 209 mg/dl H mg/dl 243 mg/dl H mg/dl (65-105) (65-105) (65-105) 06/12/21 19:50 POC Capillary Glucose 173 mg/dl H mg/dl (65-105) Patient hx anesthesia problems: none Family hx anesthesia problems: none Results Review: All pre-operative results and documents have been reviewed as part of the pre-operative evaluation. [facility] Past Medical History Medical History Anemia in chronic illness Cardiomyopathy Chronic kidney disease, stage 3b Combined congestive systolic and diastolic heart failure Mildly reduced LV systolic function with an EF of 40 to 45% and grade 2 diastolic dysfunction noted on echocardiogram dated 01/22/2021. Diverticulosis Hypertension Insulin dependent diabetes mellitus Hemoglobin A1c was 10.9% on 01/23/2021. Complicated by gastric dysmotility, neuropathy, and nephropathy. Ischemic cardiomyopathy Lexiscan stress on 01/26/2021 showed a large area of severe infarct involving the apical lateral and mid to basal anterolateral and inferolateral segments of left ventricle on myocardial perfusion imaging with a left ventricular ejection fracture measuring 45%. Peripheral vascular disease Severe mitral valve regurgitation (01/22/21) Surgical History Surgical History History of colonoscopy with polypectomy (01/27/21) 2 benign polyps removed. History of right below knee amputation Family History Family History Other Unknown family medical history Social History Social History Social History: The patient lives in [place] with his sister, [id number], nieces, and nephews. Nonsmoker. No alcohol or illicit substance abuse. He designates his sister, Birdie Stroud, as his surrogate decision maker and he wishes to be a full code. He has a son in his 20s. Smoking status: Unknown if ever smoked Spiritual care concerns: No Exam Day of Procedure 06/13/21 06:43
[2021-06-13 06:49] LABS: Basophils Absolute Auto 0.1 K/mm3 (0.0-0.1); Basophils Percent Auto 0.3 % (0.2-1.2); Eosinophils Absolute Auto 0.2 K/mm3 (0-0.3); Eosinophils Percent Auto 1.2 % (0-4.4); Hematocrit 28.9 % (42.0-52.0); Hemoglobin 8.4 g/dL (14.0-18.0); Immature Granulocyte Absolute 0.12 K/mm3 (0.00-0.031); Immature Granulocyte Percent A 0.8 % (0-0.5); Lymphocytes Percent Auto 4.8 % (18.3-44.2); Mean Corpuscular HGB Conc 29.1 g/dl (32-36); Mean Corpuscular Hemoglobin 26.3 pg (26-34); Mean Corpuscular Volume 90.3 fl (80-100); Mean Platelet Volume 12.1 fl (7.4-10.4); Monocytes Absolute Auto 1.2 K/mm3 (0.1-0.6); Monocytes Percent Auto 7.9 % (2.6-8.5); Neutrophils Absolute Auto 12.4 K/mm3 (1.3-6.7); Nucleated Red Blood Cells Perc 0.1 % (0.0-0.2); Platelet Count Result 260 k/mm3 (150-375); Red Cell Distribution Width 17.7 % (11.5-14.5); White Blood Count 14.6 K/mm3 (4.5-10.0)
[2021-06-13 07:02] LABS: Albumin Level 3.1 g/dL (3.5-5.1); Anion Gap 7 mmol/L (8-16); Blood Urea Nitrogen 78 mg/dL (9-20); Calcium 8.4 mg/dL (8.4-10.2); Carbon Dioxide 31 mmol/L (22-30); Chloride 101 mmol/L (98-107); Estimated CRCL calculation 22 ml/min; Estimated Glomerular Filt Rate 16; Glucose 105 mg/dL (65-110); Phosphorus 4.9 mg/dL (2.5-4.5); Potassium 5.3 mmol/L (3.4-5.0); Sodium 139 mmol/L (137-145)
--- NOTE | 2021-06-13 07:25 | P.PNNP_ITS ---
Progress Note: A&P Assessment and Plan (1) GLENN (acute kidney injury): Code(s): N17.9 - Acute kidney failure, unspecified Status: Acute Assessment and Plan: * etiology is probably multifactorial, including diastolic dysfunction, pre renal azotemia due to low albumin, and progression of disease * creatinine seems to have stabilized at around 3.3-3.6. * His creatinine is continuously rising with diuretics. * Intake is greater than output even with the diuretics. * Patient has confusion and asterixis. Possibly this is all just uremia. * As above will have a dialysis catheter placed and initiate dialysis this a fternoon. * Lengthy discussion with Birdie and nursing staff. Together added up to more than 25minutes. (2) Stage 3b chronic kidney disease: Code(s): N18.32 - Chronic kidney disease, stage 3b Status: Chronic Assessment and Plan: * I believe he has approached end-stage renal disease. (3) Hallucinations: Code(s): R44.3 - Hallucinations, unspecified Status: Acute Assessment and Plan: * He does not seem to be hallucinating, at least when I am on with the cracking machine operator and the patient. * He does get intermittently confused however. (4) Acute combined systolic and diastolic CHF, NYHA class 1: Code(s): I50.41 - Acute combined systolic (congestive) and diastolic (congestive) heart failure Status: Acute Assessment and Plan: * well known issues with several recent hospitalizations for this problems * Ejection fraction is low. * Dobutamine has been used in the past but only with temporary improvement (5) Anasarca: Code(s): R60.1 - Generalized edema Status: Acute Assessment and Plan: * due to heart failure but his nephrotic range proteinuria/syndrome is also playing a role -- he is spilling over 14 g of protein per day. * may have to accept a higher creatinine to achieve euvolemia (6) Hypertension: Code(s): I10 - Essential (primary) hypertension Status: Acute Assessment and Plan: * blood pressure is running 110-150 * on metoprolol and hydralazine. Lisinopril is currently on hold * BP is doing better. (7) Diabetes: Code(s): E11.9 - Type 2 diabetes mellitus without complications Status: Chronic Assessment and Plan: * follow Accu-Cheks * on sliding-scale insulin Subjective Date/time seen: 06/13/21 07:25 Interval history: uGstavo is an unfortunate 45-year-old male who has acute kidney injury on top of chronic kidney disease. Patient looks a little bit better today. He is more interactive. He is peeing a little more Indonesian now which is always a good sign. I used [employer] for interpretation. He remembers me discussing dialysis with him last night. We reviewed that he is going to have a dialysis PermCath placed this morning we also reviewed that he is going to get dialysis this afternoon. He understands all that and agrees to this. He is still quite groggy. I talked with his niece Birdie yesterday evening. We discussed that his confusion might be from uremia. He is also volume overloaded. In the past when he had better kidney function, if he had volume overload we were able to give him diuretics get this better at the expense of a higher creatinine. If the creatinine got too high we were able to give him fluids to bring the creatinine down without risk of volume overload. However because his renal function has gradually deteriorated, he is both volume overloaded and has high BUN and creatinine. In fact I believe he is
--- NOTE | 2021-06-13 07:25 | PM.PNNEP ---
Progress Note: A&P Assessment and Plan (1) GLENN (acute kidney injury): Code(s): N17.9 - Acute kidney failure, unspecified Status: Acute Assessment and Plan: etiology is probably multifactorial, including diastolic dysfunction, pre renal azotemia due to low albumin, and progression of disease creatinine seems to have stabilized at around 3.3-3.6. His creatinine is continuously rising with diuretics. Intake is greater than output even with the diuretics. Patient has confusion and asterixis. Possibly this is all just uremia. As above will have a dialysis catheter placed and initiate dialysis this afternoon. Lengthy discussion with Birdie and nursing staff. Together added up to more than 25minutes. (2) Stage 3b chronic kidney disease: Code(s): N18.32 - Chronic kidney disease, stage 3b Status: Chronic Assessment and Plan: I believe he has approached end-stage renal disease. (3) Hallucinations: Code(s): R44.3 - Hallucinations, unspecified Status: Acute Assessment and Plan: He does not seem to be hallucinating, at least when I am on with the aerial photograph interpreter and the patient. He does get intermittently confused however. (4) Acute combined systolic and diastolic CHF, NYHA class 1: Code(s): I50.41 - Acute combined systolic (congestive) and diastolic (congestive) heart failure Status: Acute Assessment and Plan: well known issues with several recent hospitalizations for this problems Ejection fraction is low. Dobutamine has been used in the past but only with temporary improvement (5) Anasarca: Code(s): R60.1 - Generalized edema Status: Acute Assessment and Plan: due to heart failure but his nephrotic range proteinuria/syndrome is also playing a role -- he is spilling over 14 g of protein per day. may have to accept a higher creatinine to achieve euvolemia (6) Hypertension: Code(s): I10 - Essential (primary) hypertension Status: Acute Assessment and Plan: blood pressure is running 110-150 on metoprolol and hydralazine. Lisinopril is currently on hold BP is doing better. (7) Diabetes: Code(s): E11.9 - Type 2 diabetes mellitus without complications Status: Chronic Assessment and Plan: follow Accu-Cheks on sliding-scale insulin Subjective Date/time seen: 06/13/21 07:25 Interval history: Gustavo is an unfortunate 45-year-old male who has acute kidney injury on top of chronic kidney disease. Patient looks a little bit better today. He is more interactive. He is peeing a little more Chadian now which is always a good sign. I used [employer] for interpretation. He remembers me discussing dialysis with him last night. We reviewed that he is going to have a dialysis PermCath placed this morning we also reviewed that he is going to get dialysis this afternoon. He understands all that and agrees to this. He is still quite groggy. I talked with his niece Birdie yesterday evening. We discussed that his confusion might be from uremia. He is also volume overloaded. In the past when he had better kidney function, if he had volume overload we were able to give him diuretics get this better at the expense of a higher creatinine. If the creatinine got too high we were able to give him fluids to bring the creatinine down without risk of volume overload. However because his renal function has gradually deteriorated, he is both volume overloaded and has high BUN and creatinine. In fact I believe he is uremic. So dialysis is the only thing that is going to get him better. If he does not get dialysis he will probably not be able to survive more than at most a few more weeks. We both expressed concern that he might pull out the dialysis catheter because he has been pulling things out. However there is no other way to do dialysis other than using a dialysis catheter. Birdie wanted to talk with her
--- NOTE | 2021-06-13 08:16 | WPDHPUPDATE1 ---
History and Physical Update Update Date/Time: 06/13/21 08:16 History and Physical has been reviewed, including an updated exam of the patient. There are changes in the patient's condition. Patient was admitted more than 2 weeks ago. He continues to have difficulty with the combination of cardiac and renal issues. His bindery machine tender has come to the conclusion that he will not get better unless he goes on dialysis. Therefore, patient and closest of kin give consent for placement of a tunneled dialysis catheter. Possible problems of bleeding, infection, dislodgement of the catheter and difficulty with catheter function have been discussed and they wished to proceed. Risks, benefits, and alternatives have been discussed and questions answered. Patient and Closest of Kin (Birdie Stroud did phone consent) agrees to proceed with procedure.
[2021-06-13 09:17] LABS: Glucose Point of Care 108 mg/dl (65-105)
[2021-06-13] MEDS: hydrALAZINE HCL 50 MG TABLET 100 MG PO ×2 (09:45→17:19)
[2021-06-13] MEDS: ISOSORBIDE MONONITRATE 60 MG TAB.ER.24H PO (09:47)
[2021-06-13] MEDS: BUMETANIDE INJ 1 MG/4 ML VIAL 2 MG IV PUSH ×2 (09:47→17:18)
[2021-06-13] MEDS: IRON SUCROSE COMPLEX 200 MG in SODIUM CHLORIDE 0.9% IV 50 ML 120 MG IVPB (09:47)
[2021-06-13] MEDS: METOPROLOL TARTRATE 50 MG TAB 100 MG PO ×2 (09:48→23:13)
[2021-06-13] MEDS: GABAPENTIN 300 MG CAPSULE PO ×2 (09:49→17:18)
[2021-06-13] MEDS: metOLazone 5 MG TABLET PO (09:49)
[2021-06-13] MEDS: ATORVASTATIN 40 MG TABLET PO (09:49)
--- NOTE | 2021-06-13 11:09 | PM.IMPN ---
Progress Note: A&P Assessment and Plan (1) Combined congestive systolic and diastolic heart failure: Qualifiers: Heart failure chronicity: acute on chronic Qualified Code(s): I50.43 - Acute on chronic combined systolic (congestive) and diastolic (congestive) heart failure Code(s): I50.40 - Unspecified combined systolic (congestive) and diastolic (congestive) heart failure Status: Acute Assessment and Plan: The patient has acute on chronic systolic and diastolic heart failure with anasarca and pleural effusions. Patient's edema were somewhat improving; his urinary output is improving with IV bumetanide; he made 1.6 liters ; fluid balance overnight is negative with -1 L. however patient remains symptomatic, complaining of shortness of breath which is worse with laying down. On examination he maintain saturation in the 92-97% on room air. He had a rapid response on 06/11 where it was found to be hypercarbic unresponsive and had to be started on noninvasive ventilation with BiPAP. After 6 hours of BiPAP is gas station is improved and he was weaned to room air. On auscultation breath sounds are present bilaterally; there is poor inspiratory effort; there is no evidence of wheezing crackles or rhonchi. Patient has intermittent confusion and mild asterixis. He feels nauseous this morning, although he did not vomit. Patient renal function has deteriorated, to the point of requiring renal replacement therapy. Per nephrology, we will have a dialysis catheter placed and initiate dialysis today. Discussion was made at the bedside with the patient, who seems to understand the situation. He consented to this treatment. His sister and POA give verbal consent over the phone for dialysis catheter placement and initiation of dialysis. (2) Acute kidney injury superimposed on chronic kidney disease: Code(s): N17.9 - Acute kidney failure, unspecified; N18.9 - Chronic kidney disease, unspecified Status: Acute Assessment and Plan: Etiology is due to diastolic dysfunction and natural history of progressive chronic kidney disease complicated by active diuresis in the setting of nephrotic syndrome low albumin. Creatinine is plateauing in the 3.8-4 range. Renal function is very poor. Patient has experienced episodes of hyperkalemia managed medically with insulin and dextrose was and Kayexalate on 06/10/2021. His mentation has been fluctuating. Despite aggressive diuresis, the patient remains short of breath, especially at night. He is nauseous and has no appetite this morning. This likely represent the natural history of diabetic nephropathy, in addition to an element of cardiorenal syndrome. The patient will be started on hemodialysis. (3) Anasarca: Code(s): R60.1 - Generalized edema Status: Acute Assessment and Plan: This is related to the nephrotic syndrome. Albumin is low at 3.2. Monitor clinically. Apparent improvement of peripheral edema. However patient presents persistent shortness of breath has worsened in recumbent position and appeared to be accumulating fluid centrally. Per Nephrology recommendation, dialysis catheter will place today to initiate renal replacement therapy. (4) Insulin dependent diabetes mellitus: Status: Chronic Assessment and Plan: Currently patient is no longer requiring insulin, which may represent an ominous sign of deterioration of his renal function. Fasting blood glucose 105. Accu-Chek 108 range. Continue to monitor. (5) Acute respiratory failure: Qualifiers: Respiratory failure complication: unspecified whether with hypoxia or hypercapnia Qualified Code(s): J96.00 - Acute respiratory failure, unspecified whether with hypoxia or hypercapnia Code(s): J96.00 - Acute respiratory failure, unspecified whether with hypoxia or hypercapnia Status: Acute Assessment and Plan: Acute respiratory failure secondary t
[2021-06-13] MEDS: TOLNAFTATE 1% POWDER 45 GM BTL 1 APPLIC TOPICAL ×2 (11:29→23:14)
[2021-06-13] MEDS: MUPIROCIN 2% OINT 22 GM TUBE 1 APPLIC TOPICAL ×2 (11:29→23:14)
--- NOTE | 2021-06-13 12:07 | PC.NURSE ---
Patient to OR now.
--- NOTE | 2021-06-13 12:21 | WPDANESEFPP ---
Anes - Eval Final PreProcedure Day of Procedure 06/13/21 12:21 Patient weight: obese Heart: regular rate and rhythm Lungs: clear to auscultation Airway: Mallampati scale class II Neurological: alert and oriented Last oral intake: >/= 8 hours ASA classification: IV Emergent: no Anesthetic plan: proceed Anesthesia type and monitoring: general GIVS and standard monitoring Results Review: All pre-operative results and documents have been reviewed as part of the pre-operative evaluation. Informed Consent: The patient's anesthetic plan and its attendant risks and benefits were discussed with the patient/family/POA. Questions were solicited and answers provided to the satisfaction of the patient/family/POA.
[2021-06-13] MEDS: ceFAZolin 2 GM/D5W 50 ML 2 GM/50 ML BAG IVPB (13:30)
[2021-06-13] MEDS: LIDO 2%/EPINEPHRINE 1:100,000 20 ML VIAL INFILTRATE (13:34)
[2021-06-13] MEDS: HEPARIN SODIUM 1,000 UNITS/ML VIAL 1000 UNITS XX (13:35)
[2021-06-13] MEDS: HEPARIN SODIUM, PORCINE 10,000 UNITS/10 ML VIAL 10000 UNITS IV PUSH (13:36)
[2021-06-13] MEDS: SODIUM CHLORIDE 0.9% IV 500 ML 30 ML IV CONT (14:23)
[2021-06-13 14:29] LABS: Glucose Point of Care 124 mg/dl (65-105)
--- NOTE | 2021-06-13 14:44 | W.PM.PROC2 ---
Procedure Note - Detailed Date of Procedure 06/13/21 Pre-op Diagnosis CHF/acute on chronic renal failure/encephalopathy Post-op Diagnosis same Procedure Performed Ultrasound-guided placement of tunneled dialysis catheter. Surgeon Mike Tilley MD Vacuum Furnace Operator Elva SAWYER.OR podiatric assistant Anesthesia general (Via LMA) Indications The patient has end-stage renal disease with need for access for hemodialysis Apparently has been having it difficult lb between heart issues, CHF and renal failure. Findings Normal Vascular anatomy in the Rt. neck. Pre and post check op chest x-ray shows fairly large right pleural effusion and a slightly smaller left pleural effusion Description of Procedure The patient was placed in the supine position on the operating table and after induction of adequate mask general anesthesia by the nurse forepart laster, we carefully rotated the patient's head and tilted slightly to the left then prepping both sides of the neck and chest with chlorhexidine. After waiting 3 minutes I carefully draped the patient, and we performed a time-out confirming the patient's site of surgery. Because of the patients size, a 32 cm DuraFlow catheter was selected. Using the ultrasound probe we carefully examined the anatomy in the right neck and saved a image of this in the chart. I used ultrasound to identify the right jugular vein in the mid neck and this was cannulated under direct vision with an 18-gauge Arrow needle on a syringe. Good dark blood was aspirated, the J-guidewire was advanced through the needle and into the central venous system using the usual Seldinger technique. (needed 2 extra sticks and manipulation of the 18 gauge needle in order to get the wire to pass. It seemed to want catch at the junction of the needle and the vein wall initially). After the 3rd stick the guidewire passed fairly easily and I was able to see a well with the C-arm. C-arm fluoroscopy was used to confirm that the wire was then through the central venous system and then we removed the needle and blue guide off the wire. Following this, we measured the DuraFlow catheter such that the tip would be just into the right atrium or in the distal superior vena cava. A hemostat was placed on the drapes over the chest to guide where we would place this. Then the catheter was measured back to the entry site of the J- wire in a curvilinear fashion and down to the patient's chest overlying the right clavicle. Local anesthetic was placed into 3 boyd, the exit site and then 2 more on the patient's lateral neck such that a curvilinear path could be dissected through the subcutaneous tissues up to the insertion site on he patients right neck. Local anesthetic was infiltrated along the tract prior to tunneling. Incisions were made with a 15 blade knife at the exit site and the 2 counter incisions and then an 11 blade at the wire. The tunneling device was connected to the catheter and this was pulled through these incisions to make the subcutaneous tunnel a curvilinear course through the subcutaneous tissues to the insertion site. Then the wire was serially dilated with a 12, 14, and then a 16-Uzbek dilator over the pull away sheath. We watched the 16-Uzbek dilator and sheath go down into the central venous system with C-arm fluoroscopy and then removed the dilator wire after carefully covering the end of the catheter. I lost some blood, as we then inserted the catheter down into the central venous system. The catheter was held in place with a DeBakey forceps and then we carefully tore away the sheath leaving the catheter within the subcutaneous tissues and down into the jugular vein. Following this, C-arm fluoroscopy was used to examine the full course of the catheter. The tip was just into the right atrium and there was a good curvilinear course of the catheter in the neck down to the exit site over the right clavicle. Minimal bleeding was continuing, so we then went ahead
[2021-06-13] MEDS: PANTOPRAZOLE 40 MG TABLET PO (17:17)
[2021-06-13 18:52] LABS: Glucose Point of Care 120 mg/dl (65-105)
[2021-06-13] MEDS: EPOETIN ALFA-EPBX 20,000 UNITS/ML VIAL 20000 UNITS IV PUSH (20:23)
--- NOTE | 2021-06-13 22:52 | PC.NURSE ---
This patient, Gustavo Chacko, was received back from dialysis to room 231-01 on 06/13/21 at 2235. Patient/family oriented to unit policies and routines
[2021-06-13] MEDS: CEPHALEXIN 500 MG CAPSULE PO (23:13)
[2021-06-13 23:33] LABS: Glucose Point of Care 133 mg/dl (65-105)
--- NOTE | 2021-06-13 23:38 | PCRCNOTE ---
Window of time for administration has passed. See next scheduled administration.
[2021-06-14] VITALS (24 sets, daily range): BP systolic 108–155; BP diastolic 53–67; PULSE 60–79; RESP 16–26; TEMP 36.7–37.1; O2SAT 95–100
[2021-06-14] MEDS: SILVER NITRATE (*SP) STICK 1 EACH TOPICAL (00:40)
--- NOTE | 2021-06-14 01:40 | PM.EVENT ---
Event Note Event Note Event Note: Patient continued to bleed from his PermCath site. Several measures were used including pressure dressing, holding pressure and ice without avail we use silver nitrate sticks to stop the bleeding and a pressure dressing was applied. No further bleeding noted at this time.
[2021-06-14 06:13] LABS: Basophils Absolute Auto 0.1 K/mm3 (0.0-0.1); Basophils Percent Auto 0.3 % (0.2-1.2); Eosinophils Percent Auto 0.2 % (0-4.4); Hematocrit 23.1 % (42.0-52.0); Immature Granulocyte Absolute 0.12 K/mm3 (0.00-0.031); Immature Granulocyte Percent A 0.7 % (0-0.5); Lymphocytes Absolute Auto 0.83 K/mm3 (0.9-3.2); Lymphocytes Percent Auto 4.6 % (18.3-44.2); Mean Corpuscular HGB Conc 29.9 g/dl (32-36); Mean Corpuscular Hemoglobin 26.2 pg (26-34); Mean Corpuscular Volume 87.8 fl (80-100); Mean Platelet Volume 11.7 fl (7.4-10.4); Monocytes Absolute Auto 1.1 K/mm3 (0.1-0.6); Monocytes Percent Auto 6.2 % (2.6-8.5); Platelet Count Result 220 k/mm3 (150-375); Red Blood Count 2.63 M/mm3 (4.6-6.20); Red Cell Distribution Width 18.1 % (11.5-14.5); White Blood Count 18.2 K/mm3 (4.5-10.0)
[2021-06-14 06:27] LABS: Anion Gap 8 mmol/L (8-16); Blood Urea Nitrogen 69 mg/dL (9-20); Calcium 8.1 mg/dL (8.4-10.2); Carbon Dioxide 29 mmol/L (22-30); Chloride 102 mmol/L (98-107); Estimated CRCL calculation 30 ml/min; Estimated Glomerular Filt Rate 23; Glucose 108 mg/dL (65-110); Potassium 4.3 mmol/L (3.4-5.0); Sodium 139 mmol/L (137-145)
--- NOTE | 2021-06-14 07:29 | PC.NURSE ---
06/13/211899-procedure rn called day shift RNMiguel and asked for an order for bilateral soft wrist restraints due to Pt's confusion and attempting to pull at dialysis lines. New orders received. Pt arrived to IMU post dialysis without soft wrist restraints on, but shortly after arrival, the Pt became increasingly confused and had made multiple attempts to pull at dialysis access line. Unable to redirect Pt after multiple attempts, so bilateral soft wrist restraints applied. Pt educated on purpose of restraints and the need for them to keep him safe. Will continue to monitor Pt closely.
--- NOTE | 2021-06-14 07:34 | PC.NURSE ---
06/13/21 2340 -8 attempts made to reach the exchange for Dr. Tilley to update him on Pt's post op bleeding from dialysis access site despite interventions to stop bleeding. No answers from the exchange. Gladys Shelton NP notified and updated with Pt's condition and silver nitrate sticks ordered. Gladys Shelton NP states she will be at bedside to apply the silver nitrate shortly.
--- NOTE | 2021-06-14 07:54 | WPDANESPN ---
Anes - Prog Note Post-Op Date/Time: 06/14/21 07:54 Cardiovascular status: normal Respiratory status: normal Airway patency: baseline Mental status: baseline Post-Op hydration status: normal Vital Signs: Last Vital Signs Temp 36.8 C 06/14/21 04:00 Pulse 64 06/14/21 06:00 Resp 20 06/14/21 04:00 BP 135/57 L 06/14/21 04:00 Pulse Ox 100 06/14/21 04:00 Pain Score (VAS): 0 I/O: Intake & Output 06/13/21 06/13/21 06/14/21 15:59 23:59 07:59 Intake Total 50 240 200 Output Total 240 1155 1500 Balance -190 -6116 -1300 Laboratory Tests 06/14/21 05:53 06/13/21 06/13/21 06/13/21 06:00 06:00 08:30 WBC 14.6 H RBC 3.20 L Hgb 8.4 L Hct 28.9 L MCV 90.3 MCH 26.3 MCHC 29.1 L RDW 17.7 H Plt Count 260 MPV 12.1 H Immature Gran % (Auto) 0.8 H Neut % (Auto) 85.0 H Lymph % (Auto) 4.8 L Osborne % (Auto) 7.9 Eos % (Auto) 1.2 Baso % (Auto) 0.3 Lymph # (Auto) 0.70 L Osborne # (Auto) 1.2 H Eos # (Auto) 0.2 Baso # (Auto) 0.1 Abs Immat Gran (auto) 0.12 H Absolute Neuts (auto) 12.4 H Absolute Nucleated RBC 0.0 Nucleated RBC % 0.1 Sodium Potassium Chloride Carbon Dioxide Anion Gap BUN Creatinine Estim Creat Clear Calc Estimated GFR Glucose POC Capillary Glucose 108 H Calcium Blood Type O Positive Antibody Screen Negative 06/13/21 06/13/21 06/13/21 14:27 16:19 23:30 WBC RBC Hgb Hct MCV MCH MCHC RDW Plt Count MPV Immature Gran % (Auto) Neut % (Auto) Lymph % (Auto) Osborne % (Auto) Eos % (Auto) Baso % (Auto) Lymph # (Auto) Osborne # (Auto) Eos # (Auto) Baso # (Auto) Abs Immat Gran (auto) Absolute Neuts (auto) Absolute Nucleated RBC Nucleated RBC % Sodium Potassium Chloride Carbon Dioxide Anion Gap BUN Creatinine Estim Creat Clear Calc Estimated GFR Glucose POC Capillary Glucose 124 H 120 H 133 H Calcium Blood Type Antibody Screen 06/14/21 06/14/21 05:53 05:53 WBC Pending RBC Pending Hgb Pending Hct Pending MCV Pending MCH Pending MCHC Pending RDW Pending Plt Count Pending MPV Pending Immature Gran % (Auto) Pending Neut % (Auto) Pending Lymph % (Auto) Pending Osborne % (Auto) Pending Eos % (Auto) Pending Baso % (Auto) Pending Lymph # (Auto) Pending Osborne # (Auto) Pending Eos # (Auto) Pending Baso # (Auto) Pending Abs Immat Gran (auto) Pending Absolute Neuts (auto) Pending Absolute Nucleated RBC Pending Nucleated RBC % Pending Sodium 139 Potassium 4.3 Chloride 102 Carbon Dioxide 29 Anion Gap 8 BUN 69 H Creatinine 3.00 H Estim Creat Clear Calc 30 Estimated GFR 23 L Glucose 108 POC Capillary Glucose Calcium 8.1 L Blood Type Antibody Screen Post-procedural complaints: none Patient Feedback: Patient satisfied with anesthetic care.
[2021-06-14] MEDS: ALBUTEROL SULFATE NEB 2.5 MG/0.5 ML INH INHALATION ×3 (08:05→20:40)
[2021-06-14] MEDS: IPRATROPIUM BR 0.02% INH SOLN 0.5 MG/2.5 ML VIAL INHALATION ×3 (08:05→20:40)
--- NOTE | 2021-06-14 08:09 | PM.IMPN ---
Progress Note: A&P Assessment and Plan (1) Combined congestive systolic and diastolic heart failure: Qualifiers: Heart failure chronicity: acute on chronic Qualified Code(s): I50.43 - Acute on chronic combined systolic (congestive) and diastolic (congestive) heart failure Code(s): I50.40 - Unspecified combined systolic (congestive) and diastolic (congestive) heart failure Status: Acute Assessment and Plan: The patient has acute on chronic systolic and diastolic heart failure with anasarca and pleural effusions. Patient renal function has deteriorated, to the point of requiring renal replacement therapy. Patient tolerated initial session dialysis well on 06/13, with almost 4 L of fluid removed. Patient's saturation are in the 96-100% range on room air. (2) Acute kidney injury superimposed on chronic kidney disease: Code(s): N17.9 - Acute kidney failure, unspecified; N18.9 - Chronic kidney disease, unspecified Status: Acute Assessment and Plan: Etiology is due to diastolic dysfunction and natural history of progressive diabetic chronic kidney disease complicated by active diuresis in the setting of nephrotic syndrome low albumin. patient tolerated dialysis well on 06/13 3. There was mild bleeding from the access site, controlled with local compression and silver nitrate application. Plan for hemodialysis tomorrow 06/15. (3) Anasarca: Code(s): R60.1 - Generalized edema Status: Acute Assessment and Plan: This is related to the nephrotic syndrome. Hopefully this will improve with initiation of renal replacement therapy. (4) Insulin dependent diabetes mellitus: Status: Chronic Assessment and Plan: Currently patient is no longer requiring insulin, which may represent an ominous sign of deterioration of his renal function. Fasting blood glucose 108. Accu-Chek 104-149 range. Continue to monitor. (5) Acute respiratory failure: Qualifiers: Respiratory failure complication: unspecified whether with hypoxia or hypercapnia Qualified Code(s): J96.00 - Acute respiratory failure, unspecified whether with hypoxia or hypercapnia Code(s): J96.00 - Acute respiratory failure, unspecified whether with hypoxia or hypercapnia Status: Acute Assessment and Plan: Improving acute respiratory failure secondary to CHF exacerbation, improved with aggressive IV diuresis. Currently patient the patient's gas exchanges have improved after initiation of dialysis on 06/13. (6) Cellulitis of leg: Code(s): L03.119 - Cellulitis of unspecified part of limb Status: Acute Assessment and Plan: Cellulitis is improving clinically. Currently no fever or leucocytosis. Local care with topical antibiotics. Continue oral Keflex. (7) Urinary retention: Code(s): R33.9 - Retention of urine, unspecified Status: Acute Assessment and Plan: s/p fidel (8) CAD (coronary artery disease): Code(s): I25.10 - Atherosclerotic heart disease of [place] coronary artery without angina pectoris Status: Acute Assessment and Plan: Currently asymptomatic, no chest pain. History of coronary artery disease, status post CT. Continue Lipitor 40 mg p.o. q.h.s. plus Imdur 60 mg p.o. daily plus metoprolol 50 mg p.o. b.i.d. plus aspirin 81 mg p.o. daily are on hold. Hydralazine PRN (9) Hypertension: Code(s): I10 - Essential (primary) hypertension Status: Acute Assessment and Plan: Patient was started on dialysis on 06/13 with almost 4 L of fluid removed. His blood pressures are controlled today. Mild hypotensive episode today at 108/53. Overall blood pressures have been in the 123/57- 155/67 range today. Continue bumetanide 2 mg IV BID in addition to hydralazine 75 mg p.o. t.i.d. plus Imdur 60 mg p.o. daily plus lisinopril 20 mg p.o. daily plus metoprolol 50 mg p.o. b.i.d. BP moderately controlled (
[2021-06-14 08:44] LABS: Hemoglobin 6.9 g/dL (14.0-18.0)
--- NOTE | 2021-06-14 08:50 | PCPTNOTE ---
Patient has been transferred back down to a lower level unit (IMU from [address] [place] [id number]). He consistently does not participate in therapy even when provided incentive. He will only follow occasional command and he currently requires soft restraints due to inability/unwillingness to follow commands to not touch his dialysis port. Gustavo is not appropriate for skilled physical therapy at this time due to mental and medical status. If both conditions improve and he is better able to participate and learn from education of skilled therapist to promote strength and improved balance for optimal function including transfers and bed mobility then we would be happy to work with Gustavo again; however, at this time he will be discharged from skilled physical therapy for the time being.
[2021-06-14] MEDS: ACETAMINOPHEN 500 MG TABLET PO ×2 (09:12→17:50)
[2021-06-14] MEDS: PANTOPRAZOLE 40 MG TABLET PO (09:13)
[2021-06-14] MEDS: metOLazone 5 MG TABLET PO (09:13)
[2021-06-14] MEDS: GABAPENTIN 300 MG CAPSULE PO ×3 (09:13→17:50)
[2021-06-14] MEDS: CEPHALEXIN 500 MG CAPSULE PO ×2 (09:14→20:39)
[2021-06-14] MEDS: METOPROLOL TARTRATE 50 MG TAB 100 MG PO ×2 (09:14→20:39)
[2021-06-14] MEDS: ISOSORBIDE MONONITRATE 60 MG TAB.ER.24H PO (09:14)
[2021-06-14] MEDS: BUMETANIDE INJ 1 MG/4 ML VIAL 2 MG IV PUSH ×2 (09:16→17:51)
[2021-06-14] MEDS: hydrALAZINE HCL 50 MG TABLET 100 MG PO ×3 (09:17→17:51)
[2021-06-14] MEDS: ATORVASTATIN 40 MG TABLET PO (09:17)
[2021-06-14] MEDS: MUPIROCIN 2% OINT 22 GM TUBE 1 APPLIC TOPICAL ×2 (09:18→20:40)
[2021-06-14] MEDS: TOLNAFTATE 1% POWDER 45 GM BTL 1 APPLIC TOPICAL ×2 (09:18→20:40)
[2021-06-14] MEDS: ASPIRIN 81 MG CHEWABLE TABLET PO (09:21)
--- NOTE | 2021-06-14 09:29 | PM.PNGS ---
Progress Note: A&P Assessment and Plan (1) Stage 3b chronic kidney disease: Onset Date: Unknown Code(s): N18.32 - Chronic kidney disease, stage 3b Status: Chronic Assessment and Plan: This is the reason that [facility] saw the patient. Tunneled dialysis catheter placed yesterday. Had some bleeding through the night but this improved. Because this may have been related to his b.i.d. subQ heparin dose will hold for 24 hours if okay with hospitalist and Dr. Johnson. (2) Confusion: Onset Date: Unknown Code(s): R41.0 - Disorientation, unspecified Status: Resolved Assessment and Plan: Seems to be somewhat improved status post dialysis last evening (3) Urinary retention: Code(s): R33.9 - Retention of urine, unspecified Status: Acute Assessment and Plan: Ramirez catheter in place draining a fairly clear yellow urine. (4) Fluid overload: Onset Date: Unknown Code(s): E87.70 - Fluid overload, unspecified Status: Acute Assessment and Plan: Improved with his 1st dialysis. (5) Pleural effusion, bilateral: Code(s): J90 - Pleural effusion, not elsewhere classified Status: Acute Assessment and Plan: Noted on chest x-ray several times. Right greater than left. Could consider interventional radiology ultrasound-guided thoracentesis on the right which is the larger. This may help him with his breathing and this is not seem to get better with the previously provided diuresis. Additional Plan Secondary to some blood loss hemoglobin down to 6.9 today. Consider 1 unit transfusion of PRBC's during dialysis later today or tomorrow. Subjective Subjective Date/Time Seen: 06/14/21 09:29 Post Op day: 1 (Status post tunneled dialysis catheter placement) Patient reports: feels better Interval history: After his 1st dialysis which apparently went fairly well patient is more alert and able to ask questions. He does complain of some pain in the flank. Bleeding from exit site noted and now seems to have been stopped. Appreciate help of the hospitalist at night. Review of Systems Review of Systems: All systems reviewed & are unremarkable except as noted in HPI and below Constitutional: Constitutional: Reports as per HPI, Denies chills, Denies fever(s) and Reports weakness Cardiovascular: Cardiovascular: Denies chest pain and Denies dyspnea Respiratory: Respiratory: Reports no additional respiratory complaints and Denies dyspnea Gastrointestinal: Gastrointestinal: Reports no additional gastrointestinal complaints Musculoskeletal: Musculoskeletal: Reports no additional musculoskeletal complaints Psychiatric: Psychiatric: Reports other (Seems to be more alert and able to answer questions) Exam Narrative: Examination of the right neck where the incisions were done shows well healing incisions with surgical glue in place. Exit site dressing in place and well covered to protect from patient pulling on it. No significant continuing bleeding now. Objective Data Vital Signs Vital Signs: Vital Signs - 24 hr 06/13/21 09:48 06/13/21 10:00 06/13/21 12:00 Temperature Pulse Rate 76 75 78 Respiratory Rate Blood Pressure Pulse Oximetry 06/13/21 14:23 06/13/21 14:35 06/13/21 14:45 Temperature 36.2 C L Pulse Rate 74 72 72 Respiratory Rate 25 H 20 18 Blood Pressure 129/65 136/61 136/61 Pulse Oximetry 97 100 100 06/13/21 15:00 06/13/21 15:15 06/13/21 15:30 Temperature Pulse Rate 71 71 74 Respiratory Rate 18 18 16 Blood Pressure 137/67 141/66 H 130/70 Pulse Oximetry 100 98 97 06/13/21 16:00 06/13/21 16:35 06/13/21 18:00 Temperature 37.1 C Pulse Rate 71 72 73 Respiratory Rate 18 Blood Pressure 154/70 H Pulse Oximetry 94 94 06/13/21 18:49 06/13/21 18:59 06/13/21 19:15 Temperature 36.9 C Pulse Rate 74 76 72 Respiratory Rate 18 Blood Pressure 174/92 H 178/85 H 160/80 H Pulse Oximetry
--- NOTE | 2021-06-14 09:31 | PM.PNCARD ---
Progress Note: A&P Assessment and Plan (1) Acute combined systolic and diastolic CHF, NYHA class 1: Code(s): I50.41 - Acute combined systolic (congestive) and diastolic (congestive) heart failure Status: Acute Assessment and Plan: Patient presents with acute on chronic systolic and diastolic heart failure, anasarca, pleural effusions. Respiratory status has improved with aggressive diuresis. He is on room air with minimal O2 per nasal cannula intermittently. Edema is improved. Urine output has decreased over the past 24 hours, however. Now on oral bumex reduced to 1mg p.o. daily. However, despite the 13 L net output, he still has a moderate right pleural effusion. Consider thoracentesis tomorrow or later this week. (2) Nonsustained ventricular tachycardia: Code(s): I47.2 - Ventricular tachycardia Status: Acute Assessment and P
[2021-06-14 09:41] LABS: Glucose Point of Care 104 mg/dl (65-105)
--- NOTE | 2021-06-14 10:25 | PM.PNNEP ---
Progress Note: A&P Assessment and Plan (1) GLENN (acute kidney injury): Code(s): N17.9 - Acute kidney failure, unspecified Status: Acute Assessment and Plan: etiology is probably multifactorial, including diastolic dysfunction, pre renal azotemia due to low albumin, and progression of disease His renal function deteriorated and so now is on dialysis. He will get another treatment tomorrow. His mental status is better with the treatment yesterday. He also had [id number] of fluid removed and his blood pressure seemed to tolerate that pretty well. (2) Stage 3b chronic kidney disease: Onset Date: Unknown Code(s): N18.32 - Chronic kidney disease, stage 3b Status: Chronic Assessment and Plan: I believe he has approached end-stage renal disease. (3) Hallucinations: Code(s): R44.3 - Hallucinations, unspecified Status: Acute Assessment and Plan: Mental status seems better (4) Acute combined systolic and diastolic CHF, NYHA class 1: Code(s): I50.41 - Acute combined systolic (congestive) and diastolic (congestive) heart failure Status: Acute Assessment and Plan: well known issues with several recent hospitalizations for this problems Ejection fraction is low. After another dialysis treatment we can restart his Bradley inhibitors or Entresto if Cardiology wants. Do not want to drop his blood pressure too much though before we get the fluid off. (5) Anasarca: Code(s): R60.1 - Generalized edema Status: Acute Assessment and Plan: due to heart failure but his nephrotic range proteinuria/syndrome is also playing a role -- he is spilling over 14 g of protein per day. may have to accept a higher creatinine to achieve euvolemia (6) Hypertension: Code(s): I10 - Essential (primary) hypertension Status: Acute Assessment and Plan: blood pressure is running 110-150 on metoprolol and hydralazine. Lisinopril is currently on hold BP is doing better. (7) Diabetes: Code(s): E11.9 - Type 2 diabetes mellitus without complications Status: Chronic Assessment and Plan: follow Accu-Cheks on sliding-scale insulin Subjective Date/time seen: 06/14/21 10:25 Interval history: Gustavo is an unfortunate 45-year-old male who has acute kidney injury on top of chronic kidney disease. Patient looks a little bit better today. Speaking more Armenian. Stratus is unavailable. He has back pain in the area of his decubitus ulcer. Exam Narrative: General: WDWN male in NAD . He looks more dyspneic. Heart: normal S1 and S2; no rub or gallop Lungs: decreased breath sounds at bases . No rub. Abdomen: soft, nontender, nondistended, positive bowel sounds Extremities: 1-2 + edema Skin: No rash. Objective Data Vital Signs Vital Signs: Vital Signs - 24 hr 06/13/21 12:00 06/13/21 14:23 06/13/21 14:35 Temperature 36.2 C L Pulse Rate 78 74 72 Respiratory Rate 25 H 20 Blood Pressure 129/65 136/61 Pulse Oximetry 97 100 06/13/21 14:45 06/13/21 15:00 06/13/21 15:15 Temperature Pulse Rate 72 71 71 Respiratory Rate 18 18 18 Blood Pressure 136/61 137/67 141/66 H Pulse Oximetry 100 100 98 06/13/21 15:30 06/13/21 16:00 06/13/21 16:35 Temperature 37.1 C Pulse Rate 74 71 72 Respiratory Rate 16 18 Blood Pressure 130/70 154/70 H Pulse Oximetry 97 94 94 06/13/21 18:00 06/13/21 18:49 06/13/21 18:59 Temperature 36.9 C Pulse Rate 73 74 76 Respiratory Rate 18 Blood Pressure 174/92 H 178/85 H Pulse Oximetry 06/13/21 19:15 06/13/21 19:30 06/13/21 19:45 Temperature Pulse Rate 72 72 74 Respiratory Rate Blood Pressure 160/80 H 167/82 H 160/74 H Pulse Oximetry 06/13/21 20:00 06/13/21 20:15 06/13/21 20:30 Temperature Pulse Rate 75 73 76 Respiratory Rate Blood Pressure 166/57 H 150/66 H 156/61 H Pulse Oximetry 06/13/21 20:45 06/13/21
[2021-06-14 10:46] LABS: Hepatitis B Surface Antigen Negative (Negative)
[2021-06-14 11:04] LABS: Hepatitis B Surface Anti Res Negative; Hepatitis C Virus Antibody Negative (Negative)
[2021-06-14 13:28] LABS: Glucose Point of Care 149 mg/dl (65-105)
[2021-06-14 17:47] LABS: Glucose Point of Care 129 mg/dl (65-105)
[2021-06-14 19:53] LABS: Glucose Point of Care 154 mg/dl (65-105)
[2021-06-15] VITALS (39 sets, daily range): BP systolic 132–168; BP diastolic 55–79; PULSE 60–86; RESP 18–28; TEMP 36.2–38.1; O2SAT 94–100
[2021-06-15] MEDS: ACETAMINOPHEN 500 MG TABLET PO ×2 (02:50→23:13)
[2021-06-15] MEDS: IPRATROPIUM BR 0.02% INH SOLN 0.5 MG/2.5 ML VIAL INHALATION ×4 (02:55→21:21)
[2021-06-15] MEDS: ALBUTEROL SULFATE NEB 2.5 MG/0.5 ML INH INHALATION ×4 (02:55→21:21)
[2021-06-15 05:13] LABS: Basophils Percent Auto 0.2 % (0.2-1.2); Eosinophils Absolute Auto 0.3 K/mm3 (0-0.3); Eosinophils Percent Auto 2.3 % (0-4.4); Hematocrit 25.5 % (42.0-52.0); Hemoglobin 7.3 g/dL (14.0-18.0); Immature Granulocyte Absolute 0.08 K/mm3 (0.00-0.031); Immature Granulocyte Percent A 0.6 % (0-0.5); Lymphocytes Absolute Auto 0.55 K/mm3 (0.9-3.2); Lymphocytes Percent Auto 3.9 % (18.3-44.2); Mean Corpuscular HGB Conc 28.6 g/dl (32-36); Mean Corpuscular Hemoglobin 26.1 pg (26-34); Mean Corpuscular Volume 91.1 fl (80-100); Mean Platelet Volume 11.8 fl (7.4-10.4); Monocytes Percent Auto 6.9 % (2.6-8.5); Neutrophils Absolute Auto 12.2 K/mm3 (1.3-6.7); Neutrophils Percent Auto 86.1 % (45.5-73.1); Platelet Count Result 209 k/mm3 (150-375); Red Cell Distribution Width 17.7 % (11.5-14.5); White Blood Count 14.1 K/mm3 (4.5-10.0)
[2021-06-15 05:23] LABS: Albumin Level 2.8 g/dL (3.5-5.1); Anion Gap 7 mmol/L (8-16); Blood Urea Nitrogen 74 mg/dL (9-20); Calcium 8.1 mg/dL (8.4-10.2); Carbon Dioxide 29 mmol/L (22-30); Chloride 98 mmol/L (98-107); Estimated CRCL calculation 25 ml/min; Estimated Glomerular Filt Rate 20; Glucose 179 mg/dL (65-110); Phosphorus 4.9 mg/dL (2.5-4.5); Potassium 4.6 mmol/L (3.4-5.0); Sodium 134 mmol/L (137-145)
[2021-06-15 05:48] LABS: Hypochromasia 1+ (NORMAL); Ovalocytes 1+ (NORMAL); Platelet Estimate Adequate (Adequate)
[2021-06-15 05:49] LABS: Burr Cells 1+ (NORMAL)
--- NOTE | 2021-06-15 07:28 | PCOTNOTE ---
Patient has been transferred back down to a lower level unit (IMU from [address] [place] [id number]). He consistently does not participate in occupational therapy even when provided incentive. He will only follow occasional command and he currently requires soft restraints due to inability/unwillingness to follow commands to not touch his dialysis port. Gustavo is not appropriate for skilled occupational therapy at this time due to mental and medical status. If both conditions improve and he is better able to participate and learn from education of skilled therapist to promote UE strength and improved participation with functional ADLs and activities then we would be happy to work with Gustavo again; however, at this time he will be discharged from skilled occupational therapy for the time being.
--- NOTE | 2021-06-15 08:02 | PM.PNNEP ---
Progress Note: A&P Assessment and Plan (1) GLENN (acute kidney injury): Code(s): N17.9 - Acute kidney failure, unspecified Status: Acute Assessment and Plan: etiology is probably multifactorial, including diastolic dysfunction, pre renal azotemia due to low albumin, and progression of disease His renal function deteriorated and so now is on dialysis. He will get another treatment today His mental status is better with the treatment yesterday. He also had [id number] of fluid removed and his blood pressure seemed to tolerate that pretty well. in anticipation of morbid fluid removal I am going to reduce the antihypertensives. (2) Stage 3b chronic kidney disease: Onset Date: Unknown Code(s): N18.32 - Chronic kidney disease, stage 3b Status: Chronic Assessment and Plan: I believe he has approached end-stage renal disease. I asked care management to set him up for outpatient dialysis (3) Hallucinations: Code(s): R44.3 - Hallucinations, unspecified Status: Acute Assessment and Plan: Mental status seems better (4) Acute combined systolic and diastolic CHF, NYHA class 1: Code(s): I50.41 - Acute combined systolic (congestive) and diastolic (congestive) heart failure Status: Acute Assessment and Plan: well known issues with several recent hospitalizations for this problems Ejection fraction is low. on metoprolol. Consider Bradley tomorrow , but I want to be gentle because we need bp room to remove the fluid.. (5) Anasarca: Code(s): R60.1 - Generalized edema Status: Acute Assessment and Plan: due to heart failure but his nephrotic range proteinuria/syndrome is also playing a role -- he is spilling over 14 g of protein per day. Will continue diuretics to help us get rid of fluid and also remove fluid with dialysis. (6) Hypertension: Code(s): I10 - Essential (primary) hypertension Status: Acute Assessment and Plan: blood pressure is running 110-150 on metoprolol and hydralazine. Lisinopril is currently on hold BP is doing better. (7) Diabetes: Code(s): E11.9 - Type 2 diabetes mellitus without complications Status: Chronic Assessment and Plan: follow Accu-Cheks on sliding-scale insulin Subjective Date/time seen: 06/15/21 08:02 Interval history: Gustavo is an unfortunate 45-year-old male who has acute kidney injury on top of chronic kidney disease. Patient looks about the same today. Speaking more Ukrainian. Stratus is available. We discussed that he is going to have a 2nd dialysis treatment today. He said his 1st treatment when okay. His kidney poisons are better and his fluid is improved. He has a long way to go however. He has back pain in the area of his decubitus ulcer. I talked with nursing and she is going to order a wound consult. Exam Narrative: General: WDWN male in NAD . He looks more dyspneic. Heart: normal S1 and S2; no rub or gallop Lungs: decreased breath sounds at bases . No rub. Abdomen: soft, nontender, nondistended, positive bowel sounds Extremities: 1-2 + edema Skin: No rash Or subQ nodules. Objective Data Vital Signs Vital Signs: Vital Signs - 24 hr 06/14/21 08:06 06/14/21 08:20 06/14/21 09:14 Temperature Pulse Rate 71 74 63 Respiratory Rate 20 20 Blood Pressure Pulse Oximetry 96 06/14/21 10:00 06/14/21 12:00 06/14/21 12:53 Temperature 37.1 C Pulse Rate 66 63 Respiratory Rate 26 H Blood Pressure 108/53 L 123/57 L Pulse Oximetry 100 06/14/21 13:32 06/14/21 13:43 06/14/21 14:00 Temperature Pulse Rate 67 69 71 Respiratory Rate 20 20 Blood Pressure Pulse Oximetry 06/14/21 16:00 06/14/21 18:00 06/14/21 18:42 Temperature 36.9 C Pulse Rate 60 63 60 Respiratory Rate 16 18 Blood Pressure 127/62 136/59 L Pulse Oximetry 99 99 06/14/21 20:00 06/14/21 20:39 05/23
[2021-06-15 08:09] LABS: Glucose Point of Care 149 mg/dl (65-105)
[2021-06-15] MEDS: oxyCODONE/ACETAMINOPHEN (*CRX) 5-325 MG TABLET 1 TABLET PO ×2 (08:40→16:11)
[2021-06-15] MEDS: HYDROmorphone HCL INJ (*CRX) 1 MG/ML SYR IV PUSH (08:40)
[2021-06-15] MEDS: hydrALAZINE HCL 50 MG TABLET PO ×3 (08:41→20:13)
[2021-06-15] MEDS: GABAPENTIN 300 MG CAPSULE PO ×3 (08:42→20:13)
[2021-06-15] MEDS: ATORVASTATIN 40 MG TABLET PO (08:42)
[2021-06-15] MEDS: CEPHALEXIN 500 MG CAPSULE PO ×2 (08:42→20:13)
[2021-06-15] MEDS: ISOSORBIDE MONONITRATE 60 MG TAB.ER.24H PO (08:42)
[2021-06-15] MEDS: PANTOPRAZOLE 40 MG TABLET PO (08:42)
[2021-06-15] MEDS: metOLazone 5 MG TABLET PO (08:43)
[2021-06-15] MEDS: METOPROLOL TARTRATE 50 MG TAB PO ×2 (08:43→20:13)
[2021-06-15] MEDS: BUMETANIDE 1 MG TABLET 4 MG PO ×2 (08:43→16:03)
[2021-06-15] MEDS: MUPIROCIN 2% OINT 22 GM TUBE 1 APPLIC TOPICAL ×2 (08:48→20:14)
[2021-06-15] MEDS: TOLNAFTATE 1% POWDER 45 GM BTL 1 APPLIC TOPICAL (08:48)
[2021-06-15] MEDS: BUMETANIDE INJ 1 MG/4 ML VIAL 2 MG IV PUSH ×2 (08:48→16:02)
[2021-06-15] MEDS: ASPIRIN 81 MG CHEWABLE TABLET PO (08:48)
--- NOTE | 2021-06-15 11:43 | PM.PNCARD ---
Progress Note: A&P Assessment and Plan (1) Acute combined systolic and diastolic CHF, NYHA class 1: Code(s): I50.41 - Acute combined systolic (congestive) and diastolic (congestive) heart failure Status: Acute Assessment and Plan: Patient presents with acute on chronic systolic and diastolic heart failure, anasarca, pleural effusions. Respiratory status has improved with aggressive diuresis. He is on room air with minimal O2 per nasal cannula intermittently. Edema is improved. Urine output has decreased over the past 24 hours, however. Now on oral bumex reduced to 1mg p.o. daily. However, despite the 13 L net output, he still has a moderate right pleural effusion. Consider thoracentesis this week. (2) Nonsustained ventricular tachycardia: Code(s): I47.2 - Ventricular tachycardia Status: Acute Assessment and Plan: No nonsusta
[2021-06-15 12:16] LABS: Glucose Point of Care 184 mg/dl (65-105)
[2021-06-15 12:21] LABS: Mean Platelet Volume 11.6 fl (7.4-10.4); Platelet Count Result 211 k/mm3 (150-375)
[2021-06-15 12:31] LABS: INR 1.3; Prothrombin Time 16.2 Seconds (11.1-14.7)
[2021-06-15 12:32] LABS: Partial Thromboplastin Time 36.5 SECONDS (22.3-36.8)
--- NOTE | 2021-06-15 13:50 | PM.IMPN ---
Progress Note: A&P Assessment and Plan (1) Combined congestive systolic and diastolic heart failure: Qualifiers: Heart failure chronicity: acute on chronic Qualified Code(s): I50.43 - Acute on chronic combined systolic (congestive) and diastolic (congestive) heart failure Code(s): I50.40 - Unspecified combined systolic (congestive) and diastolic (congestive) heart failure Status: Acute Assessment and Plan: The patient has acute on chronic systolic and diastolic heart failure with anasarca and pleural effusions. Patient renal function has deteriorated, has been started on hemodialysis. Appreciate cardiology note. Might need a repeat echocardiogram as patient is last 1 was performed in January. Defer to cardiology Continue to monitor accurate intake and output (2) Acute kidney injury superimposed on chronic kidney disease: Code(s): N17.9 - Acute kidney failure, unspecified; N18.9 - Chronic kidney disease, unspecified Status: Acute Assessment and Plan: Etiology is due to diastolic dysfunction and natural history of progressive diabetic chronic kidney disease complicated by active diuresis in the setting of nephrotic syndrome low albumin. Patient tolerated dialysis well on 06/13 3. There was mild bleeding from the access site, controlled with local compression and silver nitrate application. Appreciate nephrology note Plans for continuous dialysis (3) Anasarca: Code(s): R60.1 - Generalized edema Status: Acute Assessment and Plan: This is related to the nephrotic syndrome. Improved with dialysis. (4) Insulin dependent diabetes mellitus: Status: Chronic Assessment and Plan: Currently patient is no longer requiring insulin, which may represent an ominous sign of deterioration of his renal function. Fasting blood glucose 108. Accu-Chek 104-149 range. Continue to monitor. Continue to monitor (5) Acute respiratory failure: Qualifiers: Respiratory failure complication: unspecified whether with hypoxia or hypercapnia Qualified Code(s): J96.00 - Acute respiratory failure, unspecified whether with hypoxia or hypercapnia Code(s): J96.00 - Acute respiratory failure, unspecified whether with hypoxia or hypercapnia Status: Acute Assessment and Plan: Improving acute respiratory failure secondary to CHF exacerbation, improved with aggressive IV diuresis. Currently patient the patient's gas exchanges have improved after initiation of dialysis on 06/13. Going for thoracentesis today. (6) Cellulitis of leg: Code(s): L03.119 - Cellulitis of unspecified part of limb Status: Acute Assessment and Plan: Cellulitis is improving clinically. Currently no fever or leucocytosis. Local care with topical antibiotics. Continue oral Keflex. (7) Urinary retention: Code(s): R33.9 - Retention of urine, unspecified Status: Acute Assessment and Plan: s/p fidel (8) CAD (coronary artery disease): Code(s): I25.10 - Atherosclerotic heart disease of [place] coronary artery without angina pectoris Status: Acute Assessment and Plan: Currently asymptomatic, no chest pain. History of coronary artery disease, status post TN. Continue Lipitor 40 mg p.o. q.h.s. plus Imdur 60 mg p.o. daily plus metoprolol 50 mg p.o. b.i.d. plus aspirin 81 mg p.o. daily are on hold. Hydralazine PRN Follow cardiology recommendations (9) Hypertension: Code(s): I10 - Essential (primary) hypertension Status: Acute Assessment and Plan: Patient was started on dialysis on 06/13 with almost 4 L of fluid removed. His blood pressures are controlled today. Mild hypotensive episode today at 108/53. Overall blood pressures have been in the 123/57- 155/67 range today. Continue bumetanide 2 mg IV BID in addition to hydralazine 75 mg p.o. t.i.d. plus Imdur 60 mg p.o. daily plus lisinopril
--- NOTE | 2021-06-15 14:44 | PCDIET ---
Nutrition Follow-Up Complete: Nutrition Diagnosis: Inadequate oral intake related to altered mental status as evidenced by need for tube feedings. Nutrition Goal: Patient to meet estimated nutritional needs. Goal in progress. Patient has consumed an average of 80% of recorded meals since 06/12/21 on heart healthy diet. Last recorded weight is 84.2 kg which is significantly down from last review. -I/O. Patient had 2L UF on 06/13/21. Bowel Motility: Last documented BM on 06/12/21 x 1. Labs Reviewed: WBC (11.6), RBC (3.15), Hgb (8.2), Hct (28.6), Glu (170), BUN (72), Cr (3.7), PO4 (5.2), Alb (2.8), Lucille Ca (9.16) Meds Noted: Apresoline, Atrovent, Albuterol, Lipitor, Bumex, Keflex, Retacrit, Imdur, Zaroxolyn, Lopressor, Protonix, Seroquel Additional Notes: Unstageable area to sacrum. Abrasion to left knee. Left lower leg ulcer. Left foot with scab. Plan for thoracentesis noted. Will continue to monitor with same goal. Nutrition Monitoring and Evaluation: Follow up in 5 days.
[2021-06-15 16:00] LABS: Glucose Point of Care 135 mg/dl (65-105)
[2021-06-15] MEDS: ALPRAZolam (*CRX) 0.25 MG TABLET PO (16:02)
--- NOTE | 2021-06-15 19:38 | PC.NURSE ---
Patient arrived back to room 231 from Dialysis at 1930. Patient transferred by bed by this RN.
[2021-06-15 19:57] LABS: Glucose Point of Care 106 mg/dl (65-105)
[2021-06-15 23:22] LABS: Glucose Point of Care 196 mg/dl (65-105)
[2021-06-16] VITALS (30 sets, daily range): BP systolic 139–172; BP diastolic 63–74; PULSE 69–97; RESP 20–24; TEMP 35.9–37.1; O2SAT 95–100
[2021-06-16] MEDS: ALBUTEROL SULFATE NEB 2.5 MG/0.5 ML INH INHALATION ×4 (02:36→20:09)
[2021-06-16] MEDS: IPRATROPIUM BR 0.02% INH SOLN 0.5 MG/2.5 ML VIAL INHALATION ×4 (02:36→20:09)
[2021-06-16] MEDS: oxyCODONE/ACETAMINOPHEN (*CRX) 5-325 MG TABLET 1 TABLET PO ×3 (03:03→20:13)
[2021-06-16 05:11] LABS: Basophils Percent Auto 0.2 % (0.2-1.2); Eosinophils Absolute Auto 0.3 K/mm3 (0-0.3); Eosinophils Percent Auto 2.1 % (0-4.4); Hematocrit 24.5 % (42.0-52.0); Hemoglobin 7.2 g/dL (14.0-18.0); Immature Granulocyte Absolute 0.09 K/mm3 (0.00-0.031); Immature Granulocyte Percent A 0.7 % (0-0.5); Lymphocytes Absolute Auto 0.67 K/mm3 (0.9-3.2); Lymphocytes Percent Auto 5.2 % (18.3-44.2); Mean Corpuscular HGB Conc 29.4 g/dl (32-36); Mean Corpuscular Hemoglobin 25.9 pg (26-34); Mean Corpuscular Volume 88.1 fl (80-100); Mean Platelet Volume 11.8 fl (7.4-10.4); Monocytes Absolute Auto 1.1 K/mm3 (0.1-0.6); Monocytes Percent Auto 8.7 % (2.6-8.5); Neutrophils Absolute Auto 10.6 K/mm3 (1.3-6.7); Neutrophils Percent Auto 83.1 % (45.5-73.1); Platelet Count Result 239 k/mm3 (150-375); Red Blood Count 2.78 M/mm3 (4.6-6.20); Red Cell Distribution Width 17.4 % (11.5-14.5); White Blood Count 12.8 K/mm3 (4.5-10.0)
[2021-06-16 06:07] LABS: Anion Gap 4 mmol/L (8-16); Blood Urea Nitrogen 55 mg/dL (9-20); Carbon Dioxide 35 mmol/L (22-30); Chloride 97 mmol/L (98-107); Estimated CRCL calculation 37 ml/min; Estimated Glomerular Filt Rate 31; Glucose 187 mg/dL (65-110); Potassium 4.5 mmol/L (3.4-5.0); Sodium 136 mmol/L (137-145)
[2021-06-16 06:22] LABS: Anisocytosis 2+ (NORMAL); Hypochromasia 1+ (NORMAL); Ovalocytes 1+ (NORMAL); Platelet Estimate Adequate (Adequate); Target Cells 1+ (NORMAL)
[2021-06-16 06:36] LABS: Add Urine Microscopic? YES; Appearance Urine Clear (Clear); Bilirubin Urine Negative (Negative); Blood Urine Negative (Negative); Color Urine Yellow (Yellow); Glucose Urine UA 1+ mg/dL (Negative); Ketones Urine Negative (Negative); Leukocyte Esterase Ur Trace LEU/UL (Negative); Mucus Urine Rare /lpf; Nitrate Urine Negative (Negative); Protein Urine 2+ mg/dL (Negative); Squamous Epithelial Cell Urine Rare /hpf (Few); Urobilinogen Urine Negative mg/dL (<2.0)
[2021-06-16 08:06] LABS: Glucose Point of Care 138 mg/dl (65-105)
--- NOTE | 2021-06-16 08:17 | PM.IMPN ---
Progress Note: A&P Assessment and Plan (1) Combined congestive systolic and diastolic heart failure: Qualifiers: Heart failure chronicity: acute on chronic Qualified Code(s): I50.43 - Acute on chronic combined systolic (congestive) and diastolic (congestive) heart failure Code(s): I50.40 - Unspecified combined systolic (congestive) and diastolic (congestive) heart failure Status: Acute Assessment and Plan: The patient has acute on chronic systolic and diastolic heart failure with anasarca and pleural effusions. Patient renal function has deteriorated, has been started on hemodialysis. Appreciate cardiology note. Might need a repeat echocardiogram as patient is last 1 was performed in January. Defer to cardiology Continue to monitor accurate intake and output (2) Acute kidney injury superimposed on chronic kidney disease: Code(s): N17.9 - Acute kidney failure, unspecified; N18.9 - Chronic kidney disease, unspecified Status: Acute Assessment and Plan: Etiology is due to diastolic dysfunction and natural history of progressive diabetic chronic kidney disease complicated by active diuresis in the setting of nephrotic syndrome low albumin. Patient tolerated dialysis well on 06/13 3. There was mild bleeding from the access site, controlled with local compression and silver nitrate application. Appreciate nephrology note Plans for continuous dialysis (3) Anasarca: Code(s): R60.1 - Generalized edema Status: Acute Assessment and Plan: This is related to the nephrotic syndrome. Improved with dialysis. (4) Insulin dependent diabetes mellitus: Status: Chronic Assessment and Plan: Currently patient is no longer requiring insulin, which may represent an ominous sign of deterioration of his renal function. Fasting blood glucose 108. Accu-Chek 104-149 range. Continue to monitor. Continue to monitor (5) Acute respiratory failure: Qualifiers: Respiratory failure complication: unspecified whether with hypoxia or hypercapnia Qualified Code(s): J96.00 - Acute respiratory failure, unspecified whether with hypoxia or hypercapnia Code(s): J96.00 - Acute respiratory failure, unspecified whether with hypoxia or hypercapnia Status: Acute Assessment and Plan: Improving acute respiratory failure secondary to CHF exacerbation, improved with aggressive IV diuresis. Currently patient the patient's gas exchanges have improved after initiation of dialysis on 06/13. Going for thoracentesis today. (6) Cellulitis of leg: Code(s): L03.119 - Cellulitis of unspecified part of limb Status: Acute Assessment and Plan: Cellulitis is improving clinically. Currently no fever or leucocytosis. Local care with topical antibiotics. Continue oral Keflex. (7) Urinary retention: Code(s): R33.9 - Retention of urine, unspecified Status: Acute (8) CAD (coronary artery disease): Code(s): I25.10 - Atherosclerotic heart disease of [place] coronary artery without angina pectoris Status: Acute (9) Hypertension: Code(s): I10 - Essential (primary) hypertension Status: Acute Additional Plan 45yo man with acute on chronic combined systolic & Diastolic CHF, presenting with Anasarca and respiratory distress. Decompensated CHF: S/p net negative about 22L over the course of admission with Bumex & subsequently HD. However, had persistent rt sided pleural effusion, which was tapped, abd about 1L yellow fluid drained - pending pleural fluid chemistries. EF 40-45, likely due to ischemic cardiomyopathy, noted by cards to have suspected large old infarct on old Carmenza. ESRD: Secondary to DM and CHF. Started on HD, nephro on board. Defer to nephro in management of bp as predict labile blood pressure as we initiate HD. Noted he has been started on EPO along with HD. Cellulitis: Day 4 of Keflex. Time Spe
[2021-06-16] MEDS: BUMETANIDE INJ 1 MG/4 ML VIAL 2 MG IV PUSH ×2 (09:40→18:03)
[2021-06-16] MEDS: hydrALAZINE HCL 50 MG TABLET PO ×3 (09:41→18:03)
[2021-06-16] MEDS: GABAPENTIN 300 MG CAPSULE PO ×3 (09:41→18:02)
[2021-06-16] MEDS: CEPHALEXIN 500 MG CAPSULE PO ×2 (09:41→20:13)
[2021-06-16] MEDS: BUMETANIDE 1 MG TABLET 4 MG PO ×2 (09:41→18:02)
[2021-06-16] MEDS: ISOSORBIDE MONONITRATE 60 MG TAB.ER.24H PO (09:41)
[2021-06-16] MEDS: METOPROLOL TARTRATE 50 MG TAB PO ×2 (09:42→20:13)
[2021-06-16] MEDS: PANTOPRAZOLE 40 MG TABLET PO (09:42)
[2021-06-16] MEDS: ATORVASTATIN 40 MG TABLET PO (09:42)
[2021-06-16] MEDS: metOLazone 5 MG TABLET PO (09:42)
[2021-06-16] MEDS: MUPIROCIN 2% OINT 22 GM TUBE 1 APPLIC TOPICAL ×2 (09:43→20:16)
[2021-06-16] MEDS: ASPIRIN 81 MG CHEWABLE TABLET PO (09:52)
--- NOTE | 2021-06-16 11:32 | P.PNCA_ITS ---
Progress Note: A&P Assessment and Plan (1) Acute combined systolic and diastolic CHF, NYHA class 1: Code(s): I50.41 - Acute combined systolic (congestive) and diastolic (congestive) heart failure Status: Acute Assessment and Plan: Patient presents with acute on chronic systolic and diastolic heart failure, anasarca, pleural effusions. Respiratory status has improved with aggressive diuresis. He is on room air with minimal O2 per nasal cannula intermittently. Edema is improved. (2) Nonsustained ventricular tachycardia: Code(s): I47.2 - Ventricular tachycardia Status: Acute Assessment and Plan: Continue beta-malik. Monitor electrolytes. (3) Ischemic car
[2021-06-16 12:00] LABS: Glucose Point of Care 167 mg/dl (65-105)
[2021-06-16] MEDS: ALPRAZolam (*CRX) 0.25 MG TABLET PO ×2 (12:33→18:02)
--- NOTE | 2021-06-16 13:24 | PM.PNNEP ---
Progress Note: A&P Assessment and Plan (1) GLENN (acute kidney injury): Code(s): N17.9 - Acute kidney failure, unspecified Status: Acute Assessment and Plan: etiology is probably multifactorial, including diastolic dysfunction, pre renal azotemia due to low albumin, and progression of disease His renal function deteriorated and so now is on dialysis. He will get another treatment tomorrow. His blood pressure is creeping up. This gives us room to get more fluid off. (2) Stage 3b chronic kidney disease: Onset Date: Unknown Code(s): N18.32 - Chronic kidney disease, stage 3b Status: Chronic Assessment and Plan: I believe he has approached end-stage renal disease. I asked care management to set him up for outpatient dialysis (3) Hallucinations: Code(s): R44.3 - Hallucinations, unspecified Status: Acute Assessment and Plan: Mental status seems better (4) Acute combined systolic and diastolic CHF, NYHA class 1: Code(s): I50.41 - Acute combined systolic (congestive) and diastolic (congestive) heart failure Status: Acute Assessment and Plan: well known issues with several recent hospitalizations for this problems Ejection fraction is low. on metoprolol. Consider Bradley or Entresto down the line (5) Anasarca: Code(s): R60.1 - Generalized edema Status: Acute Assessment and Plan: due to heart failure but his nephrotic range proteinuria/syndrome is also playing a role -- he is spilling over 14 g of protein per day. Will continue diuretics to help us get rid of fluid and also remove fluid with dialysis. (6) Hypertension: Code(s): I10 - Essential (primary) hypertension Status: Acute Assessment and Plan: blood pressure is running 110-150 on metoprolol and hydralazine. Lisinopril is currently on hold BP is doing better. (7) Diabetes: Code(s): E11.9 - Type 2 diabetes mellitus without complications Status: Chronic Assessment and Plan: follow Accu-Cheks on sliding-scale insulin Subjective Date/time seen: 06/16/21 13:24 Interval history: Gustavo is an unfortunate 45-year-old male who has acute kidney injury on top of chronic kidney disease. Patient is comfortable lying in bed. No chest pain or shortness of breath Exam Narrative: General: WDWN male in NAD . He looks more dyspneic. Heart: normal S1 and S2; no rub or gallop Lungs: decreased breath sounds at bases . No rub. Abdomen: soft, nontender, nondistended, positive bowel sounds Extremities: 1-2 + edema Skin: No rash or subQ nodules Objective Data Vital Signs Vital Signs: Vital Signs - 24 hr 06/15/21 13:30 06/15/21 14:00 06/15/21 15:17 Temperature Pulse Rate 71 72 83 Respiratory Rate 20 20 Blood Pressure 149/61 H Pulse Oximetry 98 06/15/21 15:19 06/15/21 16:00 06/15/21 16:07 Temperature 37.4 C Pulse Rate 80 77 77 Respiratory Rate 20 22 H Blood Pressure 133/56 L 149/64 H Pulse Oximetry 95 100 06/15/21 16:30 06/15/21 16:34 06/15/21 16:45 Temperature 36.9 C Pulse Rate 63 78 78 Respiratory Rate 20 Blood Pressure 168/79 H 163/76 H 168/79 H Pulse Oximetry 06/15/21 17:00 06/15/21 18:00 06/15/21 18:04 Temperature Pulse Rate 78 76 76 Respiratory Rate Blood Pressure 161/70 H 164/72 H Pulse Oximetry 06/15/21 18:15 06/15/21 18:30 06/15/21 19:00 Temperature Pulse Rate 75 76 78 Respiratory Rate Blood Pressure 155/75 H 163/72 H 160/75 H Pulse Oximetry 06/15/21 19:04 06/15/21 19:10 06/15/21 20:00 Temperature 36.7 C 36.5 C Pulse Rate 72 72 83 Respiratory Rate 20 20 Blood Pressure 164/71 H 162/70 H 152/63 H Pulse Oximetry 94 06/15/21 20:13 06/15/21 21:22 06/15/21 21:23 Temperature Pulse Rate 83 86 Respiratory Rate 20 Blood Pressure Pulse Oximetry 94 06/15/21 21:33 06/15/21 22:00 06/15/21 23:13 [place]
[2021-06-16 16:27] LABS: Glucose Point of Care 191 mg/dl (65-105)
[2021-06-16 20:01] LABS: Glucose Point of Care 233 mg/dl (65-105)
[2021-06-16] MEDS: HYDROmorphone HCL INJ (*CRX) 1 MG/ML SYR 0.5 MG IV PUSH (22:31)
[2021-06-17] VITALS (38 sets, daily range): BP systolic 139–171; BP diastolic 56–81; PULSE 77–98; RESP 16–28; TEMP 36–38.3; O2SAT 79–99
[2021-06-17] MEDS: ALBUTEROL SULFATE NEB 2.5 MG/0.5 ML INH INHALATION ×4 (02:24→20:53)
[2021-06-17] MEDS: IPRATROPIUM BR 0.02% INH SOLN 0.5 MG/2.5 ML VIAL INHALATION ×4 (02:24→20:53)
[2021-06-17] MEDS: ALPRAZolam (*CRX) 0.25 MG TABLET PO ×2 (04:27→19:17)
[2021-06-17] MEDS: oxyCODONE/ACETAMINOPHEN (*CRX) 5-325 MG TABLET 1 TABLET PO (04:27)
[2021-06-17 05:45] LABS: Basophils Percent Auto 0.3 % (0.2-1.2); Eosinophils Absolute Auto 0.7 K/mm3 (0-0.3); Eosinophils Percent Auto 4.5 % (0-4.4); Hematocrit 25.3 % (42.0-52.0); Hemoglobin 7.4 g/dL (14.0-18.0); Immature Granulocyte Absolute 0.08 K/mm3 (0.00-0.031); Immature Granulocyte Percent A 0.5 % (0-0.5); Lymphocytes Absolute Auto 0.67 K/mm3 (0.9-3.2); Lymphocytes Percent Auto 4.4 % (18.3-44.2); Mean Corpuscular HGB Conc 29.2 g/dl (32-36); Mean Corpuscular Hemoglobin 25.9 pg (26-34); Mean Corpuscular Volume 88.5 fl (80-100); Monocytes Absolute Auto 1.5 K/mm3 (0.1-0.6); Monocytes Percent Auto 9.7 % (2.6-8.5); Neutrophils Absolute Auto 12.3 K/mm3 (1.3-6.7); Neutrophils Percent Auto 80.6 % (45.5-73.1); Platelet Count Result 244 k/mm3 (150-375); Red Blood Count 2.86 M/mm3 (4.6-6.20); Red Cell Distribution Width 17.6 % (11.5-14.5); White Blood Count 15.3 K/mm3 (4.5-10.0)
[2021-06-17 05:52] LABS: Alanine Aminotransferase 21 U/L (4-50); Albumin Level 2.8 g/dL (3.5-5.1); Alkaline Phosphatase 362 U/L (38-126); Anion Gap 5 mmol/L (8-16); Aspartate Amino Transferase 42 U/L (17-59); Bilirubin,Total 0.6 mg/dL (0.2-1.3); Blood Urea Nitrogen 57 mg/dL (9-20); Calcium 8.2 mg/dL (8.4-10.2); Carbon Dioxide 36 mmol/L (22-30); Chloride 93 mmol/L (98-107); Estimated CRCL calculation 30 ml/min; Estimated Glomerular Filt Rate 23; Glucose 184 mg/dL (65-110); Magnesium 1.7 mg/dL (1.6-2.3); Phosphorus 4.4 mg/dL (2.5-4.5); Potassium 4.4 mmol/L (3.4-5.0); Sodium 134 mmol/L (137-145)
[2021-06-17 08:43] LABS: Glucose Point of Care 203 mg/dl (65-105)
--- NOTE | 2021-06-17 09:29 | P.PNNP_ITS ---
Progress Note: A&P Assessment and Plan (1) GLENN (acute kidney injury): Code(s): N17.9 - Acute kidney failure, unspecified Status: Acute Assessment and Plan: * etiology is probably multifactorial, including diastolic dysfunction, pre renal azotemia due to low albumin, and progression of disease * His renal function deteriorated and so now is on dialysis. * He will get another treatment today. * (2) Stage 3b chronic kidney disease: Onset Date: Unknown Code(s): N18.32 - Chronic kidney disease, stage 3b Status: Chronic Assessment and Plan: * I believe he has approached end-stage renal disease. * I asked care management to set him up for outpatient dialysis (3) Hallucinations: Code(s): R44.3 - Hallucinations, unspecified Status: Acute Assessment and Plan: * Mental status seems better (4) Acute combined systolic and diastolic CHF, NYHA class 1: Code(s): I50.41 - Acute combined systolic (congestive) and diastolic (congestive) heart failure Status: Acute Assessment and Plan: * well known issues with several recent hospitalizations for this problems * Ejection fraction was in the 40s in January. * I agree with repeating this. (5) Anasarca: Code(s): R60.1 - Generalized edema Status: Acute Assessment and Plan: * Improved with dialysis.. (6) Hypertension: Code(s): I10 - Essential (primary) hypertension Status: Acute Assessment and Plan: * blood pressure is running 110-150 * on metoprolol and hydralazine. Will trade out the Hydralazine for lisinopril. * BP is doing better. (7) Diabetes: Code(s): E11.9 - Type 2 diabetes mellitus without complications Status: Chronic Assessment and Plan: * follow Accu-Cheks * on sliding-scale insulin Subjective Date/time seen: 06/17/21 09:29 Interval history: Gustavo is an unfortunate 45-year-old male who has acute kidney injury on top of chronic kidney disease. Patient is comfortable lying in bed. No chest pain no belly pain. Breathing okay. Due for dialysis today Exam Narrative: General: WDWN male in NAD . He looks more dyspneic. Heart: normal S1 and S2; no rub or gallop Lungs: decreased breath sounds at bases . No rub. Abdomen: soft, nontender, nondistended, positive bowel sounds Extremities: 1-2 + edema, now mostly presacral. Skin: No rash or subQ nodules Objective Data Vital Signs Vital Signs: Vital Signs - 24 hr 06/16/21 09:31 06/16/21 09:33 06/16/21 09:40 Temperature Pulse Rate 70 73 Respiratory Rate 20 20 Blood Pressure Pulse Oximetry 95 06/16/21 09:42 06/16/21 10:00 06/16/21 12:00 Temperature Pulse Rate 74 73 72 Respiratory Rate Blood Pressure Pulse Oximetry 100 06/16/21 12:09 06/16/21 14:00 06/16/21 14:24 Temperature 35.9 C L Pulse Rate 73 73 72 Respiratory Rate 22 H 20 Blood Pressure 160/68 H Pulse Oximetry 100 06/16/21 14:32 06/16/21 16:00 06/16/21 16:34 Temperature 36.4 C Pulse Rate 72 78 80 Respiratory Rate 20 24 H Blood Pressure 172/74 H Pulse Oximetry 98 96
--- NOTE | 2021-06-17 09:29 | PM.PNNEP ---
Progress Note: A&P Assessment and Plan (1) GLENN (acute kidney injury): Code(s): N17.9 - Acute kidney failure, unspecified Status: Acute Assessment and Plan: etiology is probably multifactorial, including diastolic dysfunction, pre renal azotemia due to low albumin, and progression of disease His renal function deteriorated and so now is on dialysis. He will get another treatment today. (2) Stage 3b chronic kidney disease: Onset Date: Unknown Code(s): N18.32 - Chronic kidney disease, stage 3b Status: Chronic Assessment and Plan: I believe he has approached end-stage renal disease. I asked care management to set him up for outpatient dialysis (3) Hallucinations: Code(s): R44.3 - Hallucinations, unspecified Status: Acute Assessment and Plan: Mental status seems better (4) Acute combined systolic and diastolic CHF, NYHA class 1: Code(s): I50.41 - Acute combined systolic (congestive) and diastolic (congestive) heart failure Status: Acute Assessment and Plan: well known issues with several recent hospitalizations for this problems Ejection fraction was in the 40s in January. I agree with repeating this. (5) Anasarca: Code(s): R60.1 - Generalized edema Status: Acute Assessment and Plan: Improved with dialysis.. (6) Hypertension: Code(s): I10 - Essential (primary) hypertension Status: Acute Assessment and Plan: blood pressure is running 110-150 on metoprolol and hydralazine. Will trade out the Hydralazine for lisinopril. BP is doing better. (7) Diabetes: Code(s): E11.9 - Type 2 diabetes mellitus without complications Status: Chronic Assessment and Plan: follow Accu-Cheks on sliding-scale insulin Subjective Date/time seen: 06/17/21 09:29 Interval history: Gustavo is an unfortunate 45-year-old male who has acute kidney injury on top of chronic kidney disease. Patient is comfortable lying in bed. No chest pain no belly pain. Breathing okay. Due for dialysis today Exam Narrative: General: WDWN male in NAD . He looks more dyspneic. Heart: normal S1 and S2; no rub or gallop Lungs: decreased breath sounds at bases . No rub. Abdomen: soft, nontender, nondistended, positive bowel sounds Extremities: 1-2 + edema, now mostly presacral. Skin: No rash or subQ nodules Objective Data Vital Signs Vital Signs: Vital Signs - 24 hr 06/16/21 09:31 06/16/21 09:33 06/16/21 09:40 Temperature Pulse Rate 70 73 Respiratory Rate 20 20 Blood Pressure Pulse Oximetry 95 06/16/21 09:42 06/16/21 10:00 06/16/21 12:00 Temperature Pulse Rate 74 73 72 Respiratory Rate Blood Pressure Pulse Oximetry 100 06/16/21 12:09 06/16/21 14:00 06/16/21 14:24 Temperature 35.9 C L Pulse Rate 73 73 72 Respiratory Rate 22 H 20 Blood Pressure 160/68 H Pulse Oximetry 100 06/16/21 14:32 06/16/21 16:00 06/16/21 16:34 Temperature 36.4 C Pulse Rate 72 78 80 Respiratory Rate 20 24 H Blood Pressure 172/74 H Pulse Oximetry 98 96 06/16/21 18:00 06/16/21 20:00 06/16/21 20:08 Temperature 36.5 C Pulse Rate 84 82 Respiratory Rate 22 H Blood Pressure 152/71 H Pulse Oximetry 95 95 06/16/21 20:12 06/16/21 20:13 06/16/21 20:22 Temperature Pulse Rate 82 83 83 Respiratory Rate 20 20 Blood Pressure Pulse Oximetry 06/16/21 22:00 06/16/21 23:30 06/17/21 00:00 Temperature 36.4 C L Pulse Rate 85 97 85 Respiratory Rate 20 Blood Pressure 149/65 H Pulse Oximetry 95 93 06/17/21 02:00 06/17/21 02:24 06/17/21 02:34 Temperature Pulse Rate 79 77 79 Respiratory Rate 18 18 Blood Pressure Pulse Oximetry 06/17/21 04:00 06/17/21 06:00 06/17/21 08:00 Temperature 36.6 C 36.5 C Pulse Rate 83 78 82 Respiratory Rate 20 22 H Blood Pressure 156/57 H 139/58 L Pulse Oximet
--- NOTE | 2021-06-17 09:36 | ECHO_ITS ---
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 Strain analysis performed. Summary 1. Complete two-dimensional, color flow and Doppler transthoracic echocardiogram is performed. 2. Left ventricular chamber dimension is mildly enlarged. 3. Left ventricular systolic function is low normal, estimated at 50-55%. 4. There is severely increased left ventricular wall thickness. 5. The left ventricular diastolic function is grade II diastolic dysfunction. 6. Global longitudinal strain is abnormal at -12 %. 7. The basal inferior wall, and mid inferior wall are akinetic. 8. The apical inferior wall, basal inferoseptal, mid inferoseptal, and basal anteroseptal are hypokinetic. 9. Right ventricular chamber dimension is mildly enlarged. 10. Left atrial chamber dimension is mildly enlarged. 11. There is mild mitral valve regurgitation. 12. There is mild tricuspid valve regurgitation. 13. Severe pulmonary hypertension, estimated pulmonary arterial systolic pressure is 67 mmHg. Left Ventricle Left ventricular chamber dimension is mildly enlarged. Left ventricular systolic function is low normal, estimated at 50-55%. There is severely increased left ventricular wall thickness. The left ventricular diastolic function is grade II diastolic dysfunction. Global longitudinal strain is abnormal at -12 %. The basal inferior wall, and mid inferior wall are akinetic. The apical inferior wall, basal inferoseptal, mid inferoseptal, and basal anteroseptal are hypokinetic. All other cruz appear normal. Right Ventricle Right ventricular chamber dimension is mildly enlarged. Right ventricular systolic function is normal. Left Atria Left atrial chamber dimension is mildly enlarged. Right Atria Right atrial chamber dimension is normal. Atrial Septum Intact interatrial septum visualized by color flow imaging. Aortic Valve The aortic valve is trileaflet. There is mild aortic valve sclerosis. There is no aortic valve stenosis. There is trace aortic valve regurgitation. Pulmonic Valve The pulmonic valve is normal. There is no pulmonic valve stenosis. There is trace pulmonic regurgitation. Mitral Valve The mitral valve has normal leaflets. There is no mitral valve stenosis. There is mild mitral valve regurgitation. Tricuspid Valve The tricuspid valve leaflets are normal. There is no significant tricuspid valve stenosis. There is mild tricuspid valve regurgitation. Severe pulmonary hypertension, estimated pulmonary arterial systolic pressure is 67 mmHg. Pericardium/Pleural The pericardium appears normal. There is trivial pericardial effusion. Inferior Vena Cava Dilated inferior vena cava with <50% collapse upon inspiration consistent with elevated right atrial pressure, 15 mmHg. Aorta The aortic root size at the sinus of Valsalva is normal. Left Ventricular Outflow Tract Name
--- NOTE | 2021-06-17 09:36 | PM.IMPN ---
Progress Note: A&P Assessment and Plan (1) Combined congestive systolic and diastolic heart failure: Qualifiers: Heart failure chronicity: acute on chronic Qualified Code(s): I50.43 - Acute on chronic combined systolic (congestive) and diastolic (congestive) heart failure Code(s): I50.40 - Unspecified combined systolic (congestive) and diastolic (congestive) heart failure Status: Acute Assessment and Plan: The patient has acute on chronic systolic and diastolic heart failure with anasarca and pleural effusions. Patient renal function has deteriorated, has been started on hemodialysis. Appreciate cardiology note. Might need a repeat echocardiogram as patient is last 1 was performed in January. Defer to cardiology Continue to monitor accurate intake and output (2) Acute kidney injury superimposed on chronic kidney disease: Code(s): N17.9 - Acute kidney failure, unspecified; N18.9 - Chronic kidney disease, unspecified Status: Acute Assessment and Plan: Etiology is due to diastolic dysfunction and natural history of progressive diabetic chronic kidney disease complicated by active diuresis in the setting of nephrotic syndrome low albumin. Patient tolerated dialysis well on 06/13 3. There was mild bleeding from the access site, controlled with local compression and silver nitrate application. Appreciate nephrology note Plans for continuous dialysis (3) Anasarca: Code(s): R60.1 - Generalized edema Status: Acute Assessment and Plan: This is related to the nephrotic syndrome. Improved with dialysis. (4) Insulin dependent diabetes mellitus: Status: Chronic Assessment and Plan: Currently patient is no longer requiring insulin, which may represent an ominous sign of deterioration of his renal function. Fasting blood glucose 108. Accu-Chek 104-149 range. Continue to monitor. Continue to monitor (5) Acute respiratory failure: Qualifiers: Respiratory failure complication: unspecified whether with hypoxia or hypercapnia Qualified Code(s): J96.00 - Acute respiratory failure, unspecified whether with hypoxia or hypercapnia Code(s): J96.00 - Acute respiratory failure, unspecified whether with hypoxia or hypercapnia Status: Acute Assessment and Plan: Improving acute respiratory failure secondary to CHF exacerbation, improved with aggressive IV diuresis. Currently patient the patient's gas exchanges have improved after initiation of dialysis on 06/13. Going for thoracentesis today. (6) Cellulitis of leg: Code(s): L03.119 - Cellulitis of unspecified part of limb Status: Acute Assessment and Plan: Cellulitis is improving clinically. Currently no fever or leucocytosis. Local care with topical antibiotics. Continue oral Keflex. (7) Urinary retention: Code(s): R33.9 - Retention of urine, unspecified Status: Acute (8) CAD (coronary artery disease): Code(s): I25.10 - Atherosclerotic heart disease of [place] coronary artery without angina pectoris Status: Acute (9) Hypertension: Code(s): I10 - Essential (primary) hypertension Status: Acute Additional Plan Acute on chronic systolic & diastolic CHF and ESRD leading to respiratory failure and AMS. Aggressive diuresis and HD, another treatment today, per nephro will need chair for outpt HD. They are also comfortable with resuming lisinopril over hydralazine. Follow repeat Echo. Mentation continues to be challenging, waxing and waning. 01/31 US did not show cirrhosis. Reversible workup has not revealed cause. Possible Metabolic encephalopathy related to renal failure? May be worth considering brain imaging or neurology consultation if this persists. Time Spent With Patient Time with patient: less than 15 minutes Subjective Date/time seen: 06/17/21 09:36 AO2-3, no extensive interview possible Review of Sys
[2021-06-17] MEDS: INSULIN ASPART (*BKC) 100 UNITS/ML SUB-Q (10:43)
[2021-06-17] MEDS: ISOSORBIDE MONONITRATE 60 MG TAB.ER.24H PO (10:43)
[2021-06-17] MEDS: metOLazone 5 MG TABLET PO (10:44)
[2021-06-17] MEDS: PANTOPRAZOLE 40 MG TABLET PO (10:45)
[2021-06-17] MEDS: METOPROLOL TARTRATE 50 MG TAB PO ×2 (10:47→20:39)
[2021-06-17] MEDS: ASPIRIN 81 MG CHEWABLE TABLET PO (10:48)
[2021-06-17] MEDS: ATORVASTATIN 40 MG TABLET PO (10:49)
[2021-06-17] MEDS: BUMETANIDE INJ 1 MG/4 ML VIAL 2 MG IV PUSH ×2 (10:50→19:18)
[2021-06-17] MEDS: CEPHALEXIN 500 MG CAPSULE PO ×2 (10:50→20:39)
[2021-06-17] MEDS: GABAPENTIN 300 MG CAPSULE PO ×2 (10:50→19:17)
[2021-06-17] MEDS: MUPIROCIN 2% OINT 22 GM TUBE 1 APPLIC TOPICAL ×2 (10:51→20:54)
[2021-06-17 12:09] LABS: Glucose Point of Care 173 mg/dl (65-105)
[2021-06-17] MEDS: EPOETIN ALFA-EPBX 20,000 UNITS/ML VIAL 20000 UNITS IV PUSH (17:57)
[2021-06-17] MEDS: SODIUM CHLORIDE 0.9% IV 1,000 ML 999 ML IV CONT ×2 (17:57)
[2021-06-17] MEDS: SILVERGEL (ELTA) 45 ML 1 APPLIC TOPICAL (19:15)
[2021-06-17] MEDS: hydrALAZINE HCL 25 MG TABLET PO (19:17)
[2021-06-17 19:30] LABS: Glucose Point of Care 191 mg/dl (65-105)
[2021-06-17] MEDS: HYDROmorphone HCL INJ (*CRX) 1 MG/ML SYR 0.5 MG IV PUSH (20:40)
[2021-06-18] VITALS (24 sets, daily range): BP systolic 131–158; BP diastolic 59–74; PULSE 73–91; RESP 16–36; TEMP 36.6–37.7; O2SAT 73–100
[2021-06-18] MEDS: IPRATROPIUM BR 0.02% INH SOLN 0.5 MG/2.5 ML VIAL INHALATION ×4 (02:00→21:59)
[2021-06-18] MEDS: ALBUTEROL SULFATE NEB 2.5 MG/0.5 ML INH INHALATION ×4 (02:00→21:59)
[2021-06-18] MEDS: oxyCODONE/ACETAMINOPHEN (*CRX) 5-325 MG TABLET 1 TABLET PO (03:02)
[2021-06-18] MEDS: ALPRAZolam (*CRX) 0.25 MG TABLET PO (03:02)
[2021-06-18 07:08] LABS: Glucose Point of Care 149 mg/dl (65-105)
[2021-06-18 07:57] LABS: Basophils Absolute Auto 0.1 K/mm3 (0.0-0.1); Basophils Percent Auto 0.4 % (0.2-1.2); Eosinophils Absolute Auto 0.4 K/mm3 (0-0.3); Eosinophils Percent Auto 2.5 % (0-4.4); Hematocrit 22.6 % (42.0-52.0); Immature Granulocyte Absolute 0.07 K/mm3 (0.00-0.031); Immature Granulocyte Percent A 0.5 % (0-0.5); Lymphocytes Absolute Auto 0.89 K/mm3 (0.9-3.2); Lymphocytes Percent Auto 6.3 % (18.3-44.2); Mean Corpuscular HGB Conc 29.2 g/dl (32-36); Mean Corpuscular Hemoglobin 26.4 pg (26-34); Mean Corpuscular Volume 90.4 fl (80-100); Mean Platelet Volume 11.3 fl (7.4-10.4); Monocytes Absolute Auto 1.4 K/mm3 (0.1-0.6); Monocytes Percent Auto 9.7 % (2.6-8.5); Neutrophils Absolute Auto 11.5 K/mm3 (1.3-6.7); Neutrophils Percent Auto 80.6 % (45.5-73.1); Platelet Count Result 215 k/mm3 (150-375); Red Cell Distribution Width 17.4 % (11.5-14.5); White Blood Count 14.2 K/mm3 (4.5-10.0)
[2021-06-18 08:29] LABS: Alanine Aminotransferase 23 U/L (4-50); Albumin Level 2.2 g/dL (3.5-5.1); Alkaline Phosphatase 367 U/L (38-126); Anion Gap 5 mmol/L (8-16); Aspartate Amino Transferase 47 U/L (17-59); Bilirubin,Total 0.7 mg/dL (0.2-1.3); Blood Urea Nitrogen 35 mg/dL (9-20); Calcium 7.8 mg/dL (8.4-10.2); Carbon Dioxide 34 mmol/L (22-30); Chloride 97 mmol/L (98-107); Estimated CRCL calculation 41 ml/min; Estimated Glomerular Filt Rate 36; Glucose 152 mg/dL (65-110); Magnesium 1.7 mg/dL (1.6-2.3); Phosphorus 3.3 mg/dL (2.5-4.5); Sodium 136 mmol/L (137-145)
[2021-06-18 09:15] LABS: Hemoglobin 6.6 g/dL (14.0-18.0)
[2021-06-18] MEDS: lisinopriL 20 MG TABLET PO (09:39)
[2021-06-18] MEDS: METOPROLOL TARTRATE 50 MG TAB PO ×2 (09:39→20:12)
[2021-06-18] MEDS: CEPHALEXIN 500 MG CAPSULE PO ×2 (09:39→20:12)
[2021-06-18] MEDS: metOLazone 5 MG TABLET PO (09:40)
[2021-06-18] MEDS: ATORVASTATIN 40 MG TABLET PO (09:40)
[2021-06-18] MEDS: ISOSORBIDE MONONITRATE 60 MG TAB.ER.24H PO (09:40)
[2021-06-18] MEDS: GABAPENTIN 300 MG CAPSULE PO ×3 (09:40→16:53)
[2021-06-18] MEDS: PANTOPRAZOLE 40 MG TABLET PO (09:40)
[2021-06-18] MEDS: SILVERGEL (ELTA) 45 ML 1 APPLIC TOPICAL (09:44)
[2021-06-18] MEDS: MUPIROCIN 2% OINT 22 GM TUBE 1 APPLIC TOPICAL ×2 (09:44→20:12)
[2021-06-18] MEDS: ASPIRIN 81 MG CHEWABLE TABLET PO (09:46)
--- NOTE | 2021-06-18 10:22 | P.PNNP_ITS ---
Progress Note: A&P Assessment and Plan (1) GLENN (acute kidney injury): Code(s): N17.9 - Acute kidney failure, unspecified Status: Acute Assessment and Plan: * etiology is probably multifactorial, including diastolic dysfunction, pre renal azotemia due to low albumin, and progression of disease * His renal function deteriorated and so now is on dialysis. * He will get another treatment tomorrow * (2) Stage 3b chronic kidney disease: Onset Date: Unknown Code(s): N18.32 - Chronic kidney disease, stage 3b Status: Chronic Assessment and Plan: * I believe he has approached end-stage renal disease. * I asked care management to set him up for outpatient dialysis (3) Hallucinations: Code(s): R44.3 - Hallucinations, unspecified Status: Acute Assessment and Plan: * Mental status seems better * He still becomes confused and tries pulling IVs out. (4) Acute combined systolic and diastolic CHF, NYHA class 1: Code(s): I50.41 - Acute combined systolic (congestive) and diastolic (congestive) heart failure Status: Acute Assessment and Plan: * well known issues with several recent hospitalizations for this problems * Ejection fraction was in the 40s in January. * I agree with repeating this. (5) Anasarca: Code(s): R60.1 - Generalized edema Status: Acute Assessment and Plan: * Improved with dialysis.. (6) Hypertension: Code(s): I10 - Essential (primary) hypertension Status: Acute Assessment and Plan: * blood pressure is running 110-150 * on metoprolol and lisinopril. * Will stop hydralazine since his blood pressure is doing so well (7) Diabetes: Code(s): E11.9 - Type 2 diabetes mellitus without complications Status: Chronic Assessment and Plan: * follow Accu-Cheks * on sliding-scale insulin (8) EPO-resistant anemia: Code(s): D63.1 - Anemia in chronic kidney disease Status: Acute Assessment and Plan: Hemoglobin down to 6.6. Will repeat this. If it is lower and they can't get an IV in then we can do d ialysis this afternoon to given the blood and then just wait till Tuesday to do his next treatment. Stool guaiacs negative. Discussed with Dr Uribe. he will consult GI Subjective Date/time seen: 06/18/21 10:22 Interval history: Gustavo is an unfortunate 45-year-old male who has acute kidney injury on top of chronic kidney disease. Patient is comfortable lying in bed. No chest pain Eating a good breakfast. Exam Narrative: General: WDWN male in NAD . He looks more dyspneic. Heart: normal S1 and S2; no rub Lungs: decreased breath sounds at bases . No rub. Abdomen: soft, nontender, nondistended, positive bowel sounds Extremities: 1-2 + edema, now mostly presacral. Skin: No rash Objective Data Vital Signs Vital Signs: Vital Signs - 24 hr 06/17/21 10:47 06/17/21 12:00 06/17/21 14:00 Temperature 36.5 C Pulse Rate 89 90 78 Respiratory Rate 28 H Blood Pressure Pulse Oximetry 92 06/17/21 14:08 06/17/21 14:21 06/17/21 15:20 Temperature 38.3 C H Pulse Rate 80 84 86 Respiratory Rate 18 18 18 Blood Pressure 146/70 H Pulse Oximetry 06/17/21 15:36 06/17/21 15:45 06/17/21
--- NOTE | 2021-06-18 10:22 | PM.PNNEP ---
Progress Note: A&P Assessment and Plan (1) GLENN (acute kidney injury): Code(s): N17.9 - Acute kidney failure, unspecified Status: Acute Assessment and Plan: etiology is probably multifactorial, including diastolic dysfunction, pre renal azotemia due to low albumin, and progression of disease His renal function deteriorated and so now is on dialysis. He will get another treatment tomorrow (2) Stage 3b chronic kidney disease: Onset Date: Unknown Code(s): N18.32 - Chronic kidney disease, stage 3b Status: Chronic Assessment and Plan: I believe he has approached end-stage renal disease. I asked care management to set him up for outpatient dialysis (3) Hallucinations: Code(s): R44.3 - Hallucinations, unspecified Status: Acute Assessment and Plan: Mental status seems better He still becomes confused and tries pulling IVs out. (4) Acute combined systolic and diastolic CHF, NYHA class 1: Code(s): I50.41 - Acute combined systolic (congestive) and diastolic (congestive) heart failure Status: Acute Assessment and Plan: well known issues with several recent hospitalizations for this problems Ejection fraction was in the 40s in January. I agree with repeating this. (5) Anasarca: Code(s): R60.1 - Generalized edema Status: Acute Assessment and Plan: Improved with dialysis.. (6) Hypertension: Code(s): I10 - Essential (primary) hypertension Status: Acute Assessment and Plan: blood pressure is running 110-150 on metoprolol and lisinopril. Will stop hydralazine since his blood pressure is doing so well (7) Diabetes: Code(s): E11.9 - Type 2 diabetes mellitus without complications Status: Chronic Assessment and Plan: follow Accu-Cheks on sliding-scale insulin (8) EPO-resistant anemia: Code(s): D63.1 - Anemia in chronic kidney disease Status: Acute Assessment and Plan: Hemoglobin down to 6.6. Will repeat this. If it is lower and they can't get an IV in then we can do dialysis this afternoon to given the blood and then just wait till Tuesday to do his next treatment. Stool guaiacs negative. Discussed with Dr Uribe. he will consult GI Subjective Date/time seen: 06/18/21 10:22 Interval history: Gustavo is an unfortunate 45-year-old male who has acute kidney injury on top of chronic kidney disease. Patient is comfortable lying in bed. No chest pain Eating a good breakfast. Exam Narrative: General: WDWN male in NAD . He looks more dyspneic. Heart: normal S1 and S2; no rub Lungs: decreased breath sounds at bases . No rub. Abdomen: soft, nontender, nondistended, positive bowel sounds Extremities: 1-2 + edema, now mostly presacral. Skin: No rash Objective Data Vital Signs Vital Signs: Vital Signs - 24 hr 06/17/21 10:47 06/17/21 12:00 06/17/21 14:00 Temperature 36.5 C Pulse Rate 89 90 78 Respiratory Rate 28 H Blood Pressure Pulse Oximetry 92 06/17/21 14:08 06/17/21 14:21 06/17/21 15:20 Temperature 38.3 C H Pulse Rate 80 84 86 Respiratory Rate 18 18 18 Blood Pressure 146/70 H Pulse Oximetry 06/17/21 15:36 06/17/21 15:45 06/17/21 16:00 Temperature Pulse Rate 84 83 83 Respiratory Rate Blood Pressure 150/69 H 151/77 H 145/71 H Pulse Oximetry 92 06/17/21 16:15 06/17/21 16:30 06/17/21 16:45 Temperature Pulse Rate 83 81 86 Respiratory Rate Blood Pressure 144/74 H 149/61 H 154/72 H Pulse Oximetry 06/17/21 17:00 06/17/21 17:15 06/17/21 17:30 Temperature Pulse Rate 82 79 78 Respiratory Rate Blood Pressure 156/78 H 171/78 H 144/70 H Pulse Oximetry 06/17/21 17:45 06/17/21 18:00 06/17/21 18:17 Temperature Pulse Rate 80 81 82 Respiratory Rate Blood Pressure 145/56 H 160/74 H 152/65 H Pulse Oximetry 06/17/21 18:37 06/17/21 18:49
[2021-06-18 11:09] LABS: Hematocrit 25.1 % (42.0-52.0)
--- NOTE | 2021-06-18 11:12 | PM.PNCARD ---
Progress Note: A&P Assessment and Plan (1) Acute combined systolic and diastolic CHF, NYHA class 1: Code(s): I50.41 - Acute combined systolic (congestive) and diastolic (congestive) heart failure Status: Acute Assessment and Plan: Patient presents with acute on chronic systolic and diastolic heart failure, anasarca, pleural effusions. Respiratory status has improved with aggressive diuresis. He is on room air with minimal O2 per nasal cannula intermittently. Edema is improved. (2) Nonsustained ventricular tachycardia: Code(s): I47.2 - Ventricular tachycardia Status: Acute Assessment and Plan: Continue beta-malik. Monitor electrolytes. (3) Ischemic cardiomyopathy: Code(s): I25.5 - Ischemic cardiomyopathy Status: Acute Assessment and Plan: EF 40-45%. Myocardial Perfusion imaging suggests an old large infarc
[2021-06-18 11:24] LABS: Immature Reticulocyte Fraction 16.3 % (3.0-15.9); Reticulocyte Hemoglobin Conten 20.1 pg (28.2-35.7); Reticulocyte Percent 2.45 % (0.7-4.3); Reticulocytes Absolute 0.07 B/L (32.2-175.7)
[2021-06-18 11:32] LABS: Glucose Point of Care 167 mg/dl (65-105)
[2021-06-18 13:54] LABS: Hepatitis B Core Ab Total Nonreactive (Nonreactive)
[2021-06-18 15:45] LABS: Glucose Point of Care 172 mg/dl (65-105)
--- NOTE | 2021-06-18 16:39 | WPDGICN ---
Assessment and Plan Assessment and plan (1) EPO-resistant anemia: Code(s): D63.1 - Anemia in chronic kidney disease Status: Acute Assessment and Plan: no need to proceed with scopes, he just had egd and colonoscopy 4 months ago here and nothing to explain anemia most likely anemia related to advanced kidney disease and other chronic medical problems occult blood in stools probably perianal will follow from [place], call if questions (2) Occult blood in stools: Code(s): R19.5 - Other fecal abnormalities Status: Acute Assessment and Plan: probably perianal (3) Encephalopathy: Code(s): G93.40 - Encephalopathy, unspecified Status: Resolved Assessment and Plan: awake and alert today but gets confused sometimes (4) Acute on chronic kidney failure: Code(s): N17.9 - Acute kidney failure, unspecified; N18.9 - Chronic kidney disease, unspecified Status: Acute Assessment and Plan: started on dialysis few days ago (5) Insulin dependent diabetes mellitus: Status: Chronic Assessment and Plan: uncontrolled (6) CHF (congestive heart failure): Code(s): I50.9 - Heart failure, unspecified Status: Acute Assessment and Plan: cardiology on board (7) Ischemic cardiomyopathy: Code(s): I25.5 - Ischemic cardiomyopathy Status: Acute GI Consult Note Consult date/time: 06/18/21 16:39 Reason for consult: acute on chronic blood loss anemia, FOBT + HPI: Gustavo Chacko is a 45 year old male with history of uncontrolled diabetes, peripheral vascular disease, right [id number] amputation, left great toe amputation who I met on January when he came with GLENN and also found to have worsening anemia that required blood transfusion. I did EGD that was normal, colonoscopy with large polyps removed and hemorrhoids, few days afterward had rectal bleeding from post-polypectomy. This time he was admitted several days ago with confusion (history obtained in [place]), also noted to be on renal failure with uncontrolled DM, anasarca and again anemia. FOBT positive but RN has not seen any overt gib. Patient is eating, still confused, had hemodialysis catheter placed recently and already had dialysis. Review of Systems Constitutional: Constitutional: Denies chills Eyes: Eyes: Reports no additional eye complaints ENT: Reports Normal hearing present Cardiovascular: Cardiovascular: Denies chest pain Respiratory: Respiratory: Denies cough Gastrointestinal: Gastrointestinal: Denies abdominal pain Genitourinary: Comments: on dialysis now Musculoskeletal: Musculoskeletal: Reports no additional musculoskeletal complaints Neurologic: Reports confusion Psychiatric: Psychiatric: Reports confusion [facility], [facility] Past Medical History Medical History (Updated 06/18/21 @ 10:24 by Michael Johnson MD) Anemia in chronic illness Cardiomyopathy Chronic kidney disease, stage 3b Combined congestive systolic and diastolic heart failure Mildly reduced LV systolic function with an EF of 40 to 45% and grade 2 diastolic dysfunction noted on echocardiogram dated 01/22/2021. Diverticulosis EPO-resistant anemia Hypertension Insulin dependent diabetes mellitus Hemoglobin A1c was 10.9% on 01/23/2021. Complicated by gastric dysmotility, neuropathy, and nephropathy. Ischemic cardiomyopathy Lexiscan stress on 01/26/2021 showed a large area of severe infarct involving the apical lateral and mid to basal anterolateral and inferolateral segments of left ventricle on myocardial perfusion imaging with a left ventricular ejection fracture measuring 45%. Peripheral vascular disease Severe mitral valve regurgitation (01/22/21) Surgical History Surgical History History of colonoscopy with polypectomy (01/27/21) 2 benign polyps removed. History of right below knee amputation Family History Family History (Reviewed
[2021-06-18] MEDS: FUROSEMIDE 80 MG TABLET PO (16:53)
--- NOTE | 2021-06-18 17:03 | PM.IMPN ---
Progress Note: A&P Assessment and Plan (1) Combined congestive systolic and diastolic heart failure: Qualifiers: Heart failure chronicity: acute on chronic Qualified Code(s): I50.43 - Acute on chronic combined systolic (congestive) and diastolic (congestive) heart failure Code(s): I50.40 - Unspecified combined systolic (congestive) and diastolic (congestive) heart failure Status: Acute Assessment and Plan: The patient has acute on chronic systolic and diastolic heart failure with anasarca and pleural effusions. Patient renal function has deteriorated, has been started on hemodialysis. Appreciate cardiology note. Might need a repeat echocardiogram as patient is last 1 was performed in January. Defer to cardiology Continue to monitor accurate intake and output (2) Acute kidney injury superimposed on chronic kidney disease: Code(s): N17.9 - Acute kidney failure, unspecified; N18.9 - Chronic kidney disease, unspecified Status: Acute Assessment and Plan: Etiology is due to diastolic dysfunction and natural history of progressive diabetic chronic kidney disease complicated by active diuresis in the setting of nephrotic syndrome low albumin. Patient tolerated dialysis well on 06/13 3. There was mild bleeding from the access site, controlled with local compression and silver nitrate application. Appreciate nephrology note Plans for continuous dialysis (3) Anasarca: Code(s): R60.1 - Generalized edema Status: Acute Assessment and Plan: This is related to the nephrotic syndrome. Improved with dialysis. (4) Insulin dependent diabetes mellitus: Status: Chronic (5) Acute respiratory failure: Qualifiers: Respiratory failure complication: unspecified whether with hypoxia or hypercapnia Qualified Code(s): J96.00 - Acute respiratory failure, unspecified whether with hypoxia or hypercapnia Code(s): J96.00 - Acute respiratory failure, unspecified whether with hypoxia or hypercapnia Status: Acute Assessment and Plan: Improving acute respiratory failure secondary to CHF exacerbation, improved with aggressive IV diuresis. Currently patient the patient's gas exchanges have improved after initiation of dialysis on 06/13. Going for thoracentesis today. (6) Cellulitis of leg: Code(s): L03.119 - Cellulitis of unspecified part of limb Status: Acute Assessment and Plan: Cellulitis is improving clinically. Currently no fever or leucocytosis. Local care with topical antibiotics. Continue oral Keflex. (7) Urinary retention: Code(s): R33.9 - Retention of urine, unspecified Status: Acute (8) CAD (coronary artery disease): Code(s): I25.10 - Atherosclerotic heart disease of [place] coronary artery without angina pectoris Status: Acute (9) Hypertension: Code(s): I10 - Essential (primary) hypertension Status: Acute Additional Plan Acute on chronic diastolic CHF and ESRD leading to respiratory failure and AMS. Aggressive diuresis and HD, another treatment today, per nephro will need chair for outpt HD. They are also comfortable with resuming lisinopril over hydralazine. Repeat echo showing preserved ejection fraction grade 2 diastolic dysfunction. Mentation continues to be challenging, waxing and waning. 01/31 US did not show cirrhosis. Reversible workup has not revealed cause. Possible Metabolic encephalopathy related to renal failure? May be worth considering brain imaging or neurology consultation if this persists. hemoglobin was 6.6, repeat read was 7. IV proving extremely difficult, nursing staff discussed with Dr. Johnson, and will plan to give blood transfusion if necessary during dialysis. Occult blood in stool, GI was consulted today. They believe anemia most likely related to advanced kidney disease and other chronic medical problems. They believe occult blood
[2021-06-18 20:16] LABS: Glucose Point of Care 170 mg/dl (65-105)
[2021-06-19] VITALS (38 sets, daily range): BP systolic 106–179; BP diastolic 56–78; PULSE 71–93; RESP 18–36; TEMP 36.6–38.6; O2SAT 93–100
[2021-06-19] MEDS: oxyCODONE/ACETAMINOPHEN (*CRX) 5-325 MG TABLET 1 TABLET PO ×2 (00:01→14:41)
[2021-06-19] MEDS: ALBUTEROL SULFATE NEB 2.5 MG/0.5 ML INH INHALATION ×3 (03:12→20:31)
[2021-06-19] MEDS: IPRATROPIUM BR 0.02% INH SOLN 0.5 MG/2.5 ML VIAL INHALATION ×3 (03:12→20:31)
[2021-06-19 05:33] LABS: Basophils Absolute Auto 0.1 K/mm3 (0.0-0.1); Basophils Percent Auto 0.3 % (0.2-1.2); Eosinophils Absolute Auto 0.2 K/mm3 (0-0.3); Eosinophils Percent Auto 1.3 % (0-4.4); Hematocrit 23.4 % (42.0-52.0); Immature Granulocyte Absolute 0.17 K/mm3 (0.00-0.031); Immature Granulocyte Percent A 0.9 % (0-0.5); Lymphocytes Absolute Auto 0.72 K/mm3 (0.9-3.2); Lymphocytes Percent Auto 3.8 % (18.3-44.2); Mean Corpuscular HGB Conc 28.6 g/dl (32-36); Mean Corpuscular Volume 90.7 fl (80-100); Mean Platelet Volume 11.2 fl (7.4-10.4); Monocytes Absolute Auto 1.5 K/mm3 (0.1-0.6); Monocytes Percent Auto 7.7 % (2.6-8.5); Neutrophils Absolute Auto 16.2 K/mm3 (1.3-6.7); Platelet Count Result 233 k/mm3 (150-375); Red Blood Count 2.58 M/mm3 (4.6-6.20); Red Cell Distribution Width 16.9 % (11.5-14.5); White Blood Count 18.8 K/mm3 (4.5-10.0)
[2021-06-19 05:45] LABS: Alanine Aminotransferase 27 U/L (4-50); Albumin Level 2.3 g/dL (3.5-5.1); Alkaline Phosphatase 430 U/L (38-126); Anion Gap 6 mmol/L (8-16); Aspartate Amino Transferase 51 U/L (17-59); Bilirubin,Total 1.2 mg/dL (0.2-1.3); Blood Urea Nitrogen 42 mg/dL (9-20); Calcium 7.7 mg/dL (8.4-10.2); Carbon Dioxide 32 mmol/L (22-30); Chloride 91 mmol/L (98-107); Estimated CRCL calculation 36 ml/min; Estimated Glomerular Filt Rate 31; Glucose 199 mg/dL (65-110); Magnesium 1.6 mg/dL (1.6-2.3); Phosphorus 3.2 mg/dL (2.5-4.5); Sodium 129 mmol/L (137-145)
[2021-06-19 07:49] LABS: Hemoglobin 6.7 g/dL (14.0-18.0)
--- NOTE | 2021-06-19 08:43 | PM.PNNEP ---
Progress Note: A&P Assessment and Plan (1) GLENN (acute kidney injury): Code(s): N17.9 - Acute kidney failure, unspecified Status: Acute Assessment and Plan: etiology is probably multifactorial, including diastolic dysfunction, pre renal azotemia due to low albumin, and progression of disease His renal function deteriorated and so now is on dialysis. Due for dialysis today. (2) Stage 3b chronic kidney disease: Onset Date: Unknown Code(s): N18.32 - Chronic kidney disease, stage 3b Status: Chronic Assessment and Plan: I believe he has approached end-stage renal disease. I asked care management to set him up for outpatient dialysis (3) Hallucinations: Code(s): R44.3 - Hallucinations, unspecified Status: Acute Assessment and Plan: Mental status seems better He still becomes confused and tries pulling IVs out. (4) Acute combined systolic and diastolic CHF, NYHA class 1: Code(s): I50.41 - Acute combined systolic (congestive) and diastolic (congestive) heart failure Status: Acute Assessment and Plan: well known issues with several recent hospitalizations for this problems Repeat echo shows EF of 50% now. He also has very thick LV wall. (5) Anasarca: Code(s): R60.1 - Generalized edema Status: Acute Assessment and Plan: Improved with dialysis.. (6) Hypertension: Code(s): I10 - Essential (primary) hypertension Status: Acute Assessment and Plan: blood pressure is running 110-180 on metoprolol and lisinopril. Will stop hydralazine since he has LVH. Increase metoprolol some. (7) Diabetes: Code(s): E11.9 - Type 2 diabetes mellitus without complications Status: Chronic Assessment and Plan: follow Accu-Cheks on sliding-scale insulin (8) EPO-resistant anemia: Code(s): D63.1 - Anemia in chronic kidney disease Status: Acute Assessment and Plan: Hemoglobin up to 7 yesterday on repeat but now back down to 6.6. He will get transfused 2units today. Subjective Date/time seen: 06/19/21 08:43 Interval history: Gustavo is an unfortunate 45-year-old male who has acute kidney injury on top of chronic kidney disease. Patient is comfortable lying in bed. No chest pain Exam Narrative: General: WDWN male in NAD . He looks more dyspneic. Heart: normal S1 and S2; no rub Lungs: decreased breath sounds at bases . No rub. Abdomen: soft, nontender, nondistended, positive bowel sounds Extremities: 1-2 + edema, now mostly presacral. Skin: No rash except for chronic venous stasis changes on his legs. Objective Data Vital Signs Vital Signs: Vital Signs - 24 hr 06/18/21 09:39 06/18/21 10:00 06/18/21 11:53 Temperature 37.0 C Pulse Rate 91 78 78 Respiratory Rate 28 H Blood Pressure 158/72 H Pulse Oximetry 100 06/18/21 12:00 06/18/21 14:00 06/18/21 14:14 Temperature Pulse Rate 76 75 76 Respiratory Rate 16 Blood Pressure Pulse Oximetry 98 06/18/21 14:22 06/18/21 16:00 06/18/21 18:00 Temperature 37.7 C H Pulse Rate 77 79 76 Respiratory Rate 16 36 H Blood Pressure 153/74 H Pulse Oximetry 98 06/18/21 20:00 06/18/21 20:12 06/18/21 21:59 Temperature 37.0 C Pulse Rate 83 85 90 Respiratory Rate 28 H 18 Blood Pressure 157/72 H Pulse Oximetry 100 06/18/21 22:00 06/18/21 22:03 06/18/21 22:09 Temperature Pulse Rate 87 90 88 Respiratory Rate 18 Blood Pressure Pulse Oximetry 95 06/19/21 00:00 06/19/21 02:00 06/19/21 03:12 Temperature 36.9 C Pulse Rate 91 93 86 Respiratory Rate 22 H 18 Blood Pressure 179/76 H Pulse Oximetry 100 06/19/21 03:21 06/19/21 04:00 06/19/21 06:00 Temperature 36.6 C Pulse Rate 87 87 84 Respiratory Rate 20 20 Blood Pressure 131/78 Pulse Oximetry 98 06/19/21 08:40 06/19/21 08:42 Temperature Pulse Rate 85 Respirator
[2021-06-19 08:53] LABS: Glucose Point of Care 142 mg/dl (65-105)
[2021-06-19] MEDS: EPOETIN ALFA-EPBX 20,000 UNITS/ML VIAL 20000 UNITS IV PUSH (10:24)
[2021-06-19] MEDS: ACETAMINOPHEN 500 MG TABLET PO (10:42)
--- NOTE | 2021-06-19 11:58 | PCDIET ---
Nutrition Follow-Up Complete: Nutrition Diagnosis: Inadequate oral intake related to altered mental status as evidenced by need for tube feedings. Nutrition Goal: Patient to meet estimated nutritional needs. Goal in progress. Patient has consumed 76% of recorded meals since 06/15/21. Recommend adding Nepro (425kcal, 19g protein) once per day to ensure estimated needs are being met. Current diet is heart healthy which is acceptable with addition of carbohydrate control. Last recorded weight is 82.2 kg which is stable with last review. Bowel Motility: Last documented BM on 06/16/21 x 1. Labs Reviewed: WBC (18.8), RBC (2.58), Hgb (6.7), Hct (23.4), Glu (199), BUN (42), Cr (2.3), Na (129), Alb (2.3), Lucille Ca (9.06) Meds Noted: Albuterol, Lipitor, Keflex, Retacrit, Lasix, Atrovent, Imdur, Prinivil, Lopressor, Protonix Additional Notes: Sacrum with unstageable area. Left knee abrasion. Left foot scab. Left lower leg ulcer of unknown etiology. Will continue to monitor with same goal. Nutrition Monitoring and Evaluation: Follow up in 5 days.
--- NOTE | 2021-06-19 12:44 | PM.IMPN ---
Progress Note: A&P Assessment and Plan (1) Combined congestive systolic and diastolic heart failure: Qualifiers: Heart failure chronicity: acute on chronic Qualified Code(s): I50.43 - Acute on chronic combined systolic (congestive) and diastolic (congestive) heart failure Code(s): I50.40 - Unspecified combined systolic (congestive) and diastolic (congestive) heart failure Status: Acute Assessment and Plan: The patient has acute on chronic systolic and diastolic heart failure with anasarca and pleural effusions. Patient renal function has deteriorated, has been started on hemodialysis. Appreciate cardiology note. Might need a repeat echocardiogram as patient is last 1 was performed in January. Defer to cardiology Continue to monitor accurate intake and output (2) Acute kidney injury superimposed on chronic kidney disease: Code(s): N17.9 - Acute kidney failure, unspecified; N18.9 - Chronic kidney disease, unspecified Status: Acute Assessment and Plan: multifactorial etiology, incl diastolic dysfunction, continue HD, next treatment today (3) Anasarca: Code(s): R60.1 - Generalized edema Status: Acute Assessment and Plan: This is related to the nephrotic syndrome. Improved with dialysis. (4) Insulin dependent diabetes mellitus: Status: Chronic (5) Acute respiratory failure: Qualifiers: Respiratory failure complication: unspecified whether with hypoxia or hypercapnia Qualified Code(s): J96.00 - Acute respiratory failure, unspecified whether with hypoxia or hypercapnia Code(s): J96.00 - Acute respiratory failure, unspecified whether with hypoxia or hypercapnia Status: Acute Assessment and Plan: Improving acute respiratory failure secondary to CHF exacerbation, improved with aggressive IV diuresis. Currently patient the patient's gas exchanges have improved after initiation of dialysis on 06/13. (6) Cellulitis of leg: Code(s): L03.119 - Cellulitis of unspecified part of limb Status: Acute Assessment and Plan: Cellulitis is improving clinically. Currently no fever or leucocytosis. Local care with topical antibiotics. Continue oral Keflex. (7) Urinary retention: Code(s): R33.9 - Retention of urine, unspecified Status: Acute (8) CAD (coronary artery disease): Code(s): I25.10 - Atherosclerotic heart disease of [place] coronary artery without angina pectoris Status: Acute (9) Hypertension: Code(s): I10 - Essential (primary) hypertension Status: Acute Additional Plan 45-year-old man with acute on chronic renal failure, based on Nephrology evaluation, likely has approached end-stage renal disease, and as such is currently receiving dialysis. He will receive another treatment today, in addition to 2 units of blood, as hemoglobin was 6.6 this morning. Believed to be EPO resistant anemia. Patient had some blood in stool, GI was consulted, they believe it is related to hemorrhoidal bleed. Mentation is altered, suspect metabolic from renal failure, as reversible workup negative. Neurology on board, apprecite additional recommendations incl posisble imaging? Time Spent With Patient Time with patient: less than 15 minutes Subjective Date/time seen: 06/19/21 12:44 no meaningful interview possible Review of Systems Review of Systems: All systems reviewed & are unremarkable except as noted in HPI and below Exam Const: General: no acute distress Neck: Neck: no JVD Resp: Effort & Inspection: normal respiratory effort Auscultation: clear to auscultation bilaterally Cardio: Rate: regular rate Rhythm: regular rhythm GI: Inspection: non-distended Objective Data Vital Signs Vital Signs: Vital Signs - 24 hr 06/18/21 14:00 06/18/21 14:14 06/18/21 14:22 Temperature Pulse Rate 75 76 77 Respiratory Rate 16 16 Blood Pressure Pulse O
[2021-06-19 13:05] LABS: Glucose Point of Care 106 mg/dl (65-105)
[2021-06-19] MEDS: GABAPENTIN 300 MG CAPSULE PO ×2 (13:07→16:30)
[2021-06-19] MEDS: lisinopriL 20 MG TABLET PO (13:07)
[2021-06-19] MEDS: FUROSEMIDE 80 MG TABLET PO ×2 (13:07→16:30)
[2021-06-19] MEDS: ISOSORBIDE MONONITRATE 60 MG TAB.ER.24H PO (13:07)
[2021-06-19] MEDS: CEPHALEXIN 500 MG CAPSULE PO ×2 (13:07→20:34)
[2021-06-19] MEDS: ATORVASTATIN 40 MG TABLET PO (13:07)
[2021-06-19] MEDS: METOPROLOL TARTRATE 50 MG TAB PO ×2 (13:07→20:32)
[2021-06-19] MEDS: ASPIRIN 81 MG CHEWABLE TABLET PO (13:07)
[2021-06-19] MEDS: SILVERGEL (ELTA) 45 ML 1 APPLIC TOPICAL (13:08)
[2021-06-19] MEDS: MUPIROCIN 2% OINT 22 GM TUBE 1 APPLIC TOPICAL ×2 (13:08→20:34)
[2021-06-19] MEDS: PANTOPRAZOLE 40 MG TABLET PO (13:08)
--- NOTE | 2021-06-19 13:47 | PM.PNCARD ---
Progress Note: A&P Assessment and Plan (1) Acute combined systolic and diastolic CHF, NYHA class 1: Code(s): I50.41 - Acute combined systolic (congestive) and diastolic (congestive) heart failure Status: Acute Assessment and Plan: Patient presents with acute on chronic systolic and diastolic heart failure, anasarca, pleural effusions. Respiratory status has improved with aggressive diuresis. On furosemide 80mg p.o. b.i.d. He is on room air with minimal O2 per nasal cannula intermittently. Edema is improved. (2) Nonsustained ventricular tachycardia: Code(s): I47.2 - Ventricular tachycardia Status: Acute Assessment and Plan: Continue beta-malik. Monitor electrolytes. (3) Ischemic cardiomyopathy: Code(s): I25.5 - Ischemic cardiomyopathy Status: Acute Assessment and Plan: EF 40-45%. Myocardial Perfusion imaging
[2021-06-19 16:45] LABS: Glucose Point of Care 136 mg/dl (65-105)
[2021-06-19 20:06] LABS: Glucose Point of Care 204 mg/dl (65-105)
[2021-06-20] VITALS (22 sets, daily range): BP systolic 98–153; BP diastolic 43–79; PULSE 68–102; RESP 20–24; TEMP 36.3–37; O2SAT 90–99
[2021-06-20] MEDS: ALBUTEROL SULFATE NEB 2.5 MG/0.5 ML INH INHALATION ×4 (02:50→21:36)
[2021-06-20] MEDS: IPRATROPIUM BR 0.02% INH SOLN 0.5 MG/2.5 ML VIAL INHALATION ×4 (02:50→21:36)
[2021-06-20] MEDS: ASPIRIN 81 MG CHEWABLE TABLET PO (08:13)
[2021-06-20] MEDS: CEPHALEXIN 500 MG CAPSULE PO ×2 (08:13→20:26)
[2021-06-20] MEDS: ATORVASTATIN 40 MG TABLET PO (08:13)
[2021-06-20] MEDS: FUROSEMIDE 80 MG TABLET PO ×2 (08:13→16:56)
[2021-06-20] MEDS: METOPROLOL TARTRATE 50 MG TAB PO ×2 (08:14→20:26)
[2021-06-20] MEDS: lisinopriL 20 MG TABLET PO (08:14)
[2021-06-20] MEDS: ISOSORBIDE MONONITRATE 60 MG TAB.ER.24H PO (08:14)
[2021-06-20] MEDS: GABAPENTIN 300 MG CAPSULE PO ×3 (08:14→16:56)
[2021-06-20] MEDS: MUPIROCIN 2% OINT 22 GM TUBE 1 APPLIC TOPICAL ×2 (08:15→20:26)
[2021-06-20] MEDS: PANTOPRAZOLE 40 MG TABLET PO (08:15)
[2021-06-20] MEDS: SILVERGEL (ELTA) 45 ML 1 APPLIC TOPICAL (08:16)
[2021-06-20 09:49] LABS: Glucose Point of Care 149 mg/dl (65-105)
--- NOTE | 2021-06-20 09:52 | PM.PNNEP ---
Progress Note: A&P Assessment and Plan (1) GLENN (acute kidney injury): Code(s): N17.9 - Acute kidney failure, unspecified Status: Acute Assessment and Plan: Now on dialysis (2) Stage 3b chronic kidney disease: Onset Date: Unknown Code(s): N18.32 - Chronic kidney disease, stage 3b Status: Chronic Assessment and Plan: I believe he has approached end-stage renal disease. I asked care management to set him up for outpatient dialysis (3) Hallucinations: Code(s): R44.3 - Hallucinations, unspecified Status: Acute Assessment and Plan: Mental status seems better He has not tried pulling anything out lately. (4) Acute combined systolic and diastolic CHF, NYHA class 1: Code(s): I50.41 - Acute combined systolic (congestive) and diastolic (congestive) heart failure Status: Acute Assessment and Plan: well known issues with several recent hospitalizations for this problems Repeat echo shows EF of 50% now. He also has very thick LV wall. (5) Anasarca: Code(s): R60.1 - Generalized edema Status: Acute Assessment and Plan: Improved with dialysis. (6) Hypertension: Code(s): I10 - Essential (primary) hypertension Status: Acute Assessment and Plan: blood pressure is running 120-150 on metoprolol and lisinopril. Increase metoprolol again to 100 q.12 (7) Diabetes: Code(s): E11.9 - Type 2 diabetes mellitus without complications Status: Chronic Assessment and Plan: follow Accu-Cheks on sliding-scale insulin (8) EPO-resistant anemia: Code(s): D63.1 - Anemia in chronic kidney disease Status: Acute Assessment and Plan: Hemoglobin up to 7 yesterday on repeat but now back down to 6.6. he was transfused 2units yesterday. check on tuesday Subjective Date/time seen: 06/20/21 09:52 Interval history: Gustavo is an unfortunate 45-year-old male who has acute kidney injury on top of chronic kidney disease. Patient is comfortable lying in bed. Restraints are off. A sitter is with him. He has not tried pulling any IVs out. He is not hungry for breakfast Exam Narrative: General: WDWN male in NAD . He looks more dyspneic. Heart: normal S1 and S2; no rub or gallop Lungs: decreased breath sounds at bases . No rub. Abdomen: soft, nontender, nondistended, positive bowel sounds Extremities: 1+ edema Skin: No rash except for chronic venous stasis changes on his legs. Objective Data Vital Signs Vital Signs: Vital Signs - 24 hr 06/19/21 10:00 06/19/21 10:25 06/19/21 10:27 Temperature 37.8 C H 37.7 C H Pulse Rate 78 71 76 Respiratory Rate 20 18 Blood Pressure 139/69 120/61 132/66 Pulse Oximetry 06/19/21 10:30 06/19/21 10:42 06/19/21 11:00 Temperature 38.1 C H Pulse Rate 71 76 Respiratory Rate Blood Pressure 120/61 117/57 L Pulse Oximetry 06/19/21 11:02 06/19/21 11:30 06/19/21 11:42 Temperature 37.7 C H 37.3 C Pulse Rate 75 75 Respiratory Rate 18 Blood Pressure 130/64 106/56 L Pulse Oximetry 06/19/21 12:00 06/19/21 12:22 06/19/21 12:30 Temperature 36.8 C 37.3 C Pulse Rate 82 80 80 Respiratory Rate 30 H 20 Blood Pressure 130/61 133/68 129/68 Pulse Oximetry 99 06/19/21 13:06 06/19/21 14:00 06/19/21 16:00 Temperature Pulse Rate 78 79 Respiratory Rate Blood Pressure Pulse Oximetry 98 97 06/19/21 16:53 06/19/21 18:00 06/19/21 19:14 Temperature 36.6 C 36.6 C Pulse Rate 80 85 80 Respiratory Rate 20 20 Blood Pressure 128/64 148/66 H Pulse Oximetry 94 96 06/19/21 20:00 06/19/21 20:32 06/19/21 20:33 Temperature Pulse Rate 75 80 82 Respiratory Rate 20 Blood Pressure Pulse Oximetry 93 06/19/21 20:56 06/19/21 22:00 06/19/21 23:44 Temperature 36.9 C Pulse Rate 79 73 77 Respiratory Rate 20 20 Blood Pressure 152/68 H Pulse Oximetry 99 10/3
[2021-06-20 11:59] LABS: Basophils Absolute Auto 0.1 K/mm3 (0.0-0.1); Basophils Percent Auto 0.3 % (0.2-1.2); Eosinophils Percent Auto 0.1 % (0-4.4); Hematocrit 29.2 % (42.0-52.0); Hemoglobin 8.8 g/dL (14.0-18.0); Immature Granulocyte Absolute 0.27 K/mm3 (0.00-0.031); Immature Granulocyte Percent A 1.1 % (0-0.5); Lymphocytes Absolute Auto 0.72 K/mm3 (0.9-3.2); Lymphocytes Percent Auto 2.9 % (18.3-44.2); Mean Corpuscular HGB Conc 30.1 g/dl (32-36); Mean Corpuscular Volume 89.6 fl (80-100); Mean Platelet Volume 10.9 fl (7.4-10.4); Monocytes Absolute Auto 1.6 K/mm3 (0.1-0.6); Monocytes Percent Auto 6.3 % (2.6-8.5); Neutrophils Absolute Auto 22.5 K/mm3 (1.3-6.7); Neutrophils Percent Auto 89.3 % (45.5-73.1); Platelet Count Result 275 k/mm3 (150-375); Red Blood Count 3.26 M/mm3 (4.6-6.20); Red Cell Distribution Width 16.3 % (11.5-14.5); White Blood Count 25.2 K/mm3 (4.5-10.0)
[2021-06-20 12:03] LABS: Glucose Point of Care 217 mg/dl (65-105)
--- NOTE | 2021-06-20 12:05 | PM.PNCARD ---
Progress Note: A&P Assessment and Plan (1) Acute combined systolic and diastolic CHF, NYHA class 1: Code(s): I50.41 - Acute combined systolic (congestive) and diastolic (congestive) heart failure Status: Acute Assessment and Plan: Patient presents with acute on chronic systolic and diastolic heart failure, anasarca, pleural effusions. Respiratory status has improved with hemodialysis. Remains on some oxygen Edema is much improved with dialysis. (2) Nonsustained ventricular tachycardia: Code(s): I47.2 - Ventricular tachycardia Status: Acute Assessment and Plan: Continue beta-malik. Monitor electrolytes. (3) Ischemic cardiomyopathy: Code(s): I25.5 - Ischemic cardiomyopathy Status: Acute Assessment and Plan: EF was 40-45%, now 50-55%, improved with lisinopril, metoprolol. No longer on hydralazine Myocardial P
[2021-06-20 12:13] LABS: Alanine Aminotransferase 25 U/L (4-50); Albumin Level 2.7 g/dL (3.5-5.1); Alkaline Phosphatase 468 U/L (38-126); Anion Gap 5 mmol/L (8-16); Aspartate Amino Transferase 52 U/L (17-59); Bilirubin,Total 2.4 mg/dL (0.2-1.3); Blood Urea Nitrogen 37 mg/dL (9-20); Calcium 7.9 mg/dL (8.4-10.2); Carbon Dioxide 33 mmol/L (22-30); Chloride 94 mmol/L (98-107); Estimated CRCL calculation 34 ml/min; Estimated Glomerular Filt Rate 29; Glucose 239 mg/dL (65-110); Potassium 4.2 mmol/L (3.4-5.0); Sodium 132 mmol/L (137-145)
[2021-06-20] MEDS: INSULIN ASPART (*BKC) 100 UNITS/ML SUB-Q (12:38)
[2021-06-20 16:50] LABS: Glucose Point of Care 166 mg/dl (65-105)
[2021-06-20 19:37] LABS: Amylase, Pleural Fluid 19 U/L
--- NOTE | 2021-06-20 20:33 | PM.IMPN ---
Progress Note: A&P Assessment and Plan (1) EPO-resistant anemia: Code(s): D63.1 - Anemia in chronic kidney disease Status: Acute (2) Urinary retention: Code(s): R33.9 - Retention of urine, unspecified Status: Acute (3) Acute kidney injury superimposed on chronic kidney disease: Code(s): N17.9 - Acute kidney failure, unspecified; N18.9 - Chronic kidney disease, unspecified Status: Acute (4) Anasarca: Code(s): R60.1 - Generalized edema Status: Acute (5) Stage 3b chronic kidney disease: Onset Date: Unknown Code(s): N18.32 - Chronic kidney disease, stage 3b Status: Chronic (6) Encephalopathy: Code(s): G93.40 - Encephalopathy, unspecified Status: Resolved (7) Ischemic cardiomyopathy: Code(s): I25.5 - Ischemic cardiomyopathy Status: Acute (8) Acute combined systolic and diastolic CHF, NYHA class 1: Code(s): I50.41 - Acute combined systolic (congestive) and diastolic (congestive) heart failure Status: Acute (9) Hypertension: Qualifiers: Hypertension type: unspecified Qualified Code(s): I10 - Essential (primary) hypertension Code(s): I10 - Essential (primary) hypertension Status: Acute (10) Diabetic ulcer of left foot: Qualifiers: Diabetic foot ulcer location: unspecified part of foot Diabetes mellitus type: type 2 Non-pressure ulcer stage: limited to breakdown of skin Qualified Code(s): E11.621 - Type 2 diabetes mellitus with foot ulcer; L97.521 - Non-pressure chronic ulcer of other part of left foot limited to breakdown of skin Code(s): E11.621 - Type 2 diabetes mellitus with foot ulcer; L97.529 - Non-pressure chronic ulcer of other part of left foot with unspecified severity Status: Acute (11) Hypertension: Qualifiers: Hypertension type: unspecified Qualified Code(s): I10 - Essential (primary) hypertension Code(s): I10 - Essential (primary) hypertension Status: Acute (12) Acute respiratory failure: Qualifiers: Respiratory failure complication: unspecified whether with hypoxia or hypercapnia Qualified Code(s): J96.00 - Acute respiratory failure, unspecified whether with hypoxia or hypercapnia Code(s): J96.00 - Acute respiratory failure, unspecified whether with hypoxia or hypercapnia Status: Acute (13) Diarrhea: Qualifiers: Diarrhea type: unspecified type Qualified Code(s): R19.7 - Diarrhea, unspecified Code(s): R19.7 - Diarrhea, unspecified Status: Acute (14) UTI (urinary tract infection): Qualifiers: Urinary tract infection type: acute cystitis Hematuria presence: without hematuria Qualified Code(s): N30.00 - Acute cystitis without hematuria Code(s): N39.0 - Urinary tract infection, site not specified Status: Acute (15) Leukocytosis: Qualifiers: Leukocytosis type: unspecified Qualified Code(s): D72.829 - Elevated white blood cell count, unspecified Code(s): D72.829 - Elevated white blood cell count, unspecified Status: Acute (16) Hyperbilirubinemia: Code(s): E80.6 - Other disorders of bilirubin metabolism Status: Acute (17) Hyponatremia: Code(s): E87.1 - Hypo-osmolality and hyponatremia Status: Acute (18) Sepsis: Qualifiers: Sepsis type: sepsis due to unspecified organism Sepsis acute organ dysfunction status: with acute organ dysfunction Severe sepsis acute organ dysfunction type: acute renal failure Acute renal failure type: unspecified Severe sepsis shock status: without septic shock Qualified Code(s): A41.9 - Sepsis, unspecified organism; R65.20 - Severe sepsis without septic shock; N17.9 - Acute kidney failure, unspecified Code(s): A41.9 - Sepsis, unspecified organism Status: Acute (19) Dependence on renal dialysis: Code(s): Z99.2 - Dependence on renal dialysis
[2021-06-20 20:38] LABS: Glucose Point of Care 154 mg/dl (65-105)
[2021-06-20 21:11] LABS: Ammonia 13 umol/L (9-30)
[2021-06-20 21:21] LABS: Erythrocyte Sedimentation Rate 93 mm/hr (0-20)
[2021-06-20 21:35] LABS: CRP 17.7 mg/dL (<1.0)
[2021-06-20 21:48] LABS: Add Urine Microscopic? YES; Appearance Urine Cloudy (Clear); Bacteria Urine Trace /hpf; Bilirubin Urine 1+ (Negative); Blood Urine Negative (Negative); Color Urine Amber (Yellow); Glucose Urine UA 3+ mg/dL (Negative); Ketones Urine Negative (Negative); Leukocyte Esterase Ur Negative LEU/UL (NEGATIVE); Mucus Urine Rare /lpf; Nitrate Urine Negative (Negative); Protein Urine 3+ mg/dL (Negative); Squamous Epithelial Cell Urine Few /hpf (Few); WBC Urine 31-50 /hpf (0-3)
[2021-06-21] VITALS (25 sets, daily range): BP systolic 104–143; BP diastolic 50–69; PULSE 69–90; RESP 18–28; TEMP 36.3–37.3; O2SAT 91–98
[2021-06-21] MEDS: IPRATROPIUM BR 0.02% INH SOLN 0.5 MG/2.5 ML VIAL INHALATION ×3 (02:32→20:57)
[2021-06-21] MEDS: ALBUTEROL SULFATE NEB 2.5 MG/0.5 ML INH INHALATION ×3 (02:32→20:57)
[2021-06-21 04:59] LABS: Basophils Absolute Auto 0.1 K/mm3 (0.0-0.1); Basophils Percent Auto 0.3 % (0.2-1.2); Eosinophils Absolute Auto 0.2 K/mm3 (0-0.3); Hematocrit 30.6 % (42.0-52.0); Hemoglobin 9.1 g/dL (14.0-18.0); Immature Granulocyte Absolute 0.14 K/mm3 (0.00-0.031); Immature Granulocyte Percent A 0.7 % (0-0.5); Lymphocytes Absolute Auto 0.52 K/mm3 (0.9-3.2); Lymphocytes Percent Auto 2.5 % (18.3-44.2); Mean Corpuscular HGB Conc 29.7 g/dl (32-36); Mean Corpuscular Hemoglobin 26.8 pg (26-34); Mean Corpuscular Volume 90.3 fl (80-100); Mean Platelet Volume 11.3 fl (7.4-10.4); Monocytes Percent Auto 4.9 % (2.6-8.5); Neutrophils Percent Auto 90.6 % (45.5-73.1); Platelet Count Result 281 k/mm3 (150-375); Red Blood Count 3.39 M/mm3 (4.6-6.20); Red Cell Distribution Width 16.5 % (11.5-14.5)
[2021-06-21 05:22] LABS: INR 1.3
[2021-06-21 05:23] LABS: Partial Thromboplastin Time 34.6 SECONDS (22.3-36.8)
[2021-06-21 05:28] LABS: Alanine Aminotransferase 26 U/L (4-50); Albumin Level 2.8 g/dL (3.5-5.1); Alkaline Phosphatase 490 U/L (38-126); Anion Gap 5 mmol/L (8-16); Aspartate Amino Transferase 51 U/L (17-59); Bilirubin,Total 2.4 mg/dL (0.2-1.3); Blood Urea Nitrogen 49 mg/dL (9-20); CRP 8.8 mg/dL (<1.0); Carbon Dioxide 30 mmol/L (22-30); Chloride 94 mmol/L (98-107); Creatine Kinase 86 U/L (55-170); Estimated CRCL calculation 30 ml/min; Estimated Glomerular Filt Rate 24; Glucose 149 mg/dL (65-110); Magnesium 1.8 mg/dL (1.6-2.3); Phosphorus 3.3 mg/dL (2.5-4.5); Potassium 4.2 mmol/L (3.4-5.0); Sodium 129 mmol/L (137-145)
[2021-06-21 05:39] LABS: D Dimer 11.32 ug/mL (<0.48)
--- NOTE | 2021-06-21 07:24 | PM.PNNEP ---
Progress Note: A&P Assessment and Plan (1) GLENN (acute kidney injury): Code(s): N17.9 - Acute kidney failure, unspecified Status: Acute Assessment and Plan: hemodialysis due tomorrow (2) Stage 3b chronic kidney disease: Onset Date: Unknown Code(s): N18.32 - Chronic kidney disease, stage 3b Status: Chronic Assessment and Plan: I believe he has approached end-stage renal disease. I asked care management to set him up for outpatient dialysis (3) Hallucinations: Code(s): R44.3 - Hallucinations, unspecified Status: Acute Assessment and Plan: Mental status seems better no restraints and no sitter. He has not tried pulling anything out lately. (4) Acute combined systolic and diastolic CHF, NYHA class 1: Code(s): I50.41 - Acute combined systolic (congestive) and diastolic (congestive) heart failure Status: Acute Assessment and Plan: well known issues with several recent hospitalizations for this problems Repeat echo shows EF of 50% now. He also has very thick LV wall. (5) Anasarca: Code(s): R60.1 - Generalized edema Status: Acute Assessment and Plan: Improved with dialysis. (6) Hypertension: Qualifiers: Hypertension type: unspecified Qualified Code(s): I10 - Essential (primary) hypertension Code(s): I10 - Essential (primary) hypertension Status: Acute Assessment and Plan: blood pressure is Well controlled. on metoprolol and lisinopril. (7) Diabetes: Code(s): E11.9 - Type 2 diabetes mellitus without complications Status: Chronic Assessment and Plan: follow Accu-Cheks on sliding-scale insulin (8) EPO-resistant anemia: Code(s): D63.1 - Anemia in chronic kidney disease Status: Acute Assessment and Plan: Hemoglobin up to 9.1 yesterday. (9) Leukocytosis: Code(s): D72.829 - Elevated white blood cell count, unspecified Status: Acute Assessment and Plan: patient's white count is elevated. Cultures have been obtained and he is on vancomycin plus Zosyn. Subjective Date/time seen: 06/21/21 07:24 Interval history: Gustavo is an unfortunate 45-year-old male who has acute kidney injury on top of chronic kidney disease. Patient is comfortable lying in bed. Calm and comfortable. Restraints are often no sitter in the room. He has not tried to pull anything out. Exam Narrative: General: WDWN male in NAD . He looks more dyspneic. Heart: normal S1 and S2; no rub or gallop Lungs: decreased breath sounds at bases . No rub. Abdomen: soft, nontender, nondistended, positive bowel sounds Extremities: 1+ edema And no cyanosis Skin: No rash except for chronic venous stasis changes on his legs. Objective Data Vital Signs Vital Signs: Vital Signs - 24 hr 06/20/21 08:00 06/20/21 08:14 06/20/21 08:56 Temperature 37.0 C Pulse Rate 99 98 90 Respiratory Rate 24 H 20 Blood Pressure 153/79 H Pulse Oximetry 94 95 06/20/21 09:06 06/20/21 10:00 06/20/21 12:00 Temperature 36.6 C Pulse Rate 89 88 77 Respiratory Rate 20 24 H Blood Pressure 123/60 Pulse Oximetry 94 06/20/21 14:00 06/20/21 14:36 06/20/21 14:45 Temperature Pulse Rate 69 71 76 Respiratory Rate 20 20 Blood Pressure Pulse Oximetry 06/20/21 16:00 06/20/21 18:00 06/20/21 20:00 Temperature 36.4 C 36.3 C L Pulse Rate 71 73 73 Respiratory Rate 24 H 22 H Blood Pressure 98/43 L 117/59 L Pulse Oximetry 90 93 06/20/21 20:26 06/20/21 21:37 06/20/21 21:42 Temperature Pulse Rate 71 69 69 Respiratory Rate 24 H 24 H Blood Pressure Pulse Oximetry 97 06/20/21 22:00 06/21/21 00:00 06/21/21 02:00 Temperature 36.3 C L Pulse Rate 68 69 79 Respiratory Rate 18 Blood Pressure 138/65 Pulse Oximetry 95 06/21/21 02:33 06/21/21 02:38 06/21/21 04:00 Temperature 36.6 C Pulse
[2021-06-21 08:27] LABS: Glucose Point of Care 118 mg/dl (65-105)
--- NOTE | 2021-06-21 09:59 | PM.PNCARD ---
Progress Note: A&P Assessment and Plan (1) Acute combined systolic and diastolic CHF, NYHA class 1: Code(s): I50.41 - Acute combined systolic (congestive) and diastolic (congestive) heart failure Status: Acute Assessment and Plan: Patient presented with acute on chronic systolic and diastolic heart failure, anasarca, pleural effusions. Had thoracentesis 06/15/2021. Respiratory status and edema have improved significantly with hemodialysis. REsume Ph Tx? (2) Nonsustained ventricular tachycardia: Code(s): I47.2 - Ventricular tachycardia Status: Acute Assessment and Plan: Continue beta-malik. Monitor electrolytes. (3) Ischemic cardiomyopathy: Code(s): I25.5 - Ischemic cardiomyopathy Status: Acute Assessment and Plan: EF was 40-45%, now 50-55%, improved with lisinopril, metoprolol. No longer on hydralazine Myocardial Perfusion imaging sug
[2021-06-21] MEDS: PANTOPRAZOLE 40 MG TABLET PO (10:15)
[2021-06-21] MEDS: lisinopriL 20 MG TABLET PO (10:16)
[2021-06-21] MEDS: METOPROLOL TARTRATE 50 MG TAB PO ×2 (10:16→20:50)
[2021-06-21] MEDS: ISOSORBIDE MONONITRATE 60 MG TAB.ER.24H PO (10:17)
[2021-06-21] MEDS: FUROSEMIDE 80 MG TABLET PO ×2 (10:17→17:06)
[2021-06-21] MEDS: ATORVASTATIN 40 MG TABLET PO (10:17)
[2021-06-21] MEDS: GABAPENTIN 300 MG CAPSULE PO ×3 (10:17→17:07)
[2021-06-21] MEDS: ASPIRIN 81 MG CHEWABLE TABLET PO (10:18)
--- NOTE | 2021-06-21 11:59 | PM.CNGS ---
Assessment and Plan Assessment and plan (1) Decubitus ulcer of sacral region, unstageable: Code(s): L89.150 - Pressure ulcer of sacral region, unstageable Status: Acute Assessment and Plan: Patient has a sacral decubitus ulcer with likely some underlying infection and even possible osteomyelitis. He will require debridement of the sacral decubitus ulcer to open up the wound and debride any necrotic tissue. This seems to be a likely source for his leukocytosis, and once we gain control of this infection hopefully he will show signs of improvement with his white blood count. Will continue current antibiotics and planned for debridement tomorrow. Patient will continue to need aggressive local wound care postoperatively, and he is high risk for worsening infections due to his multiple comorbidities. (2) Leukocytosis: Code(s): D72.829 - Elevated white blood cell count, unspecified Status: Acute (3) Acute kidney injury superimposed on chronic kidney disease: Code(s): N17.9 - Acute kidney failure, unspecified; N18.9 - Chronic kidney disease, unspecified Status: Acute (4) Encephalopathy: Code(s): G93.40 - Encephalopathy, unspecified Status: Resolved (5) Acute combined systolic and diastolic CHF, NYHA class 1: Code(s): I50.41 - Acute combined systolic (congestive) and diastolic (congestive) heart failure Status: Acute (6) Insulin dependent diabetes mellitus: Status: Chronic History of Present Illness Consult details Consult date: 06/21/21 Reason for consult: other (Sacral decubitus ulcer) Requesting physician: Griselda Vasquez MD Narrative: This is a 45-year-old man who was been in the hospital for a long period of time with multiple medical problems. He has congestive heart failure, acute on chronic kidney disease, and multiple other medical problems. He has been in the hospital for over 1 month. Over the past week he has had leukocytosis. History is difficult to obtain from patient due to mental status. He is also primarily Portuguese-speaking but does understand some [place]. A CT was performed today due to rising white blood count and this did show evidence of possible necrotizing fasciitis of the sacrum. He does have a sacral decubitus ulcer which has been treated with Santyl and local wound care. There is a necrotic surface to the ulcer. Review of Systems Review of Systems: ROS unobtainable: Yes unobtainable due to medical condition and unobtainable due to mental status PMF Past Medical History Medical History Anemia in chronic illness Cardiomyopathy Chronic kidney disease, stage 3b Combined congestive systolic and diastolic heart failure Mildly reduced LV systolic function with an EF of 40 to 45% and grade 2 diastolic dysfunction noted on echocardiogram dated 01/22/2021. Diverticulosis EPO-resistant anemia Hypertension Insulin dependent diabetes mellitus Hemoglobin A1c was 10.9% on 01/23/2021. Complicated by gastric dysmotility, neuropathy, and nephropathy. Ischemic cardiomyopathy Lexiscan stress on 01/26/2021 showed a large area of severe infarct involving the apical lateral and mid to basal anterolateral and inferolateral segments of left ventricle on myocardial perfusion imaging with a left ventricular ejection fracture measuring 45%. Leukocytosis Peripheral vascular disease Severe mitral valve regurgitation (01/22/21) Surgical History Surgical History History of colonoscopy with polypectomy (01/27/21) 2 benign polyps removed. History of right below knee amputation Family History Family History Other Unknown family medical history Social History Social History Social History: The patient lives in [place] with his
[2021-06-21] MEDS: MUPIROCIN 2% OINT 22 GM TUBE 1 APPLIC TOPICAL ×2 (12:07→20:52)
[2021-06-21] MEDS: SILVERGEL (ELTA) 45 ML 1 APPLIC TOPICAL (12:07)
[2021-06-21 12:34] LABS: Glucose Point of Care 158 mg/dl (65-105)
[2021-06-21] MEDS: CLINDAMYCIN 600 MG/D5W 50 ML 600 MG/50 ML PIGGYBACK 100 MG IVPB ×2 (13:10→20:50)
--- NOTE | 2021-06-21 16:13 | PM.IMPN ---
Progress Note: A&P Assessment and Plan (1) Decubitus ulcer of sacral region, unstageable: Code(s): L89.150 - Pressure ulcer of sacral region, unstageable Status: Acute (2) Leukocytosis: Qualifiers: Leukocytosis type: unspecified Qualified Code(s): D72.829 - Elevated white blood cell count, unspecified Code(s): D72.829 - Elevated white blood cell count, unspecified Status: Acute (3) Dependence on renal dialysis: Code(s): Z99.2 - Dependence on renal dialysis Status: Acute (4) Sepsis: Qualifiers: Sepsis type: sepsis due to unspecified organism Sepsis acute organ dysfunction status: with acute organ dysfunction Severe sepsis acute organ dysfunction type: acute renal failure Acute renal failure type: unspecified Severe sepsis shock status: without septic shock Qualified Code(s): A41.9 - Sepsis, unspecified organism; R65.20 - Severe sepsis without septic shock; N17.9 - Acute kidney failure, unspecified Code(s): A41.9 - Sepsis, unspecified organism Status: Acute (5) Hyponatremia: Code(s): E87.1 - Hypo-osmolality and hyponatremia Status: Acute (6) Hyperbilirubinemia: Code(s): E80.6 - Other disorders of bilirubin metabolism Status: Acute (7) UTI (urinary tract infection): Qualifiers: Urinary tract infection type: acute cystitis Hematuria presence: without hematuria Qualified Code(s): N30.00 - Acute cystitis without hematuria Code(s): N39.0 - Urinary tract infection, site not specified Status: Acute (8) Leukocytosis: Qualifiers: Leukocytosis type: unspecified Qualified Code(s): D72.829 - Elevated white blood cell count, unspecified Code(s): D72.829 - Elevated white blood cell count, unspecified Status: Acute (9) Diarrhea: Qualifiers: Diarrhea type: unspecified type Qualified Code(s): R19.7 - Diarrhea, unspecified Code(s): R19.7 - Diarrhea, unspecified Status: Acute (10) Encephalopathy: Code(s): G93.40 - Encephalopathy, unspecified Status: Resolved (11) 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 transplanted heart: [place] heart Associated angina: without angina Qualified Code(s): I25.10 - Atherosclerotic heart disease of [place] coronary artery without angina pectoris Code(s): I25.10 - Atherosclerotic heart disease of [place] coronary artery without angina pectoris Status: Acute (14) Osteomyelitis of coccyx: Code(s): M86.9 - Osteomyelitis, unspecified Status: Acute (15) Anasarca: Code(s): R60.1 - Generalized edema Status: Acute (16) Acute respiratory failure with hypoxia: Code(s): J96.01 - Acute respiratory failure with hypoxia Status: Acute (17) Below knee amputation: Code(s): S88.119A - Complete traumatic amputation at level between knee and ankle, unspecified lower leg, initial encounter Status: Acute (18) Pleural effusion: Code(s): J90 - Pleural effusion, not elsewhere classified Status: Acute Additional Plan 1. Sepsis secondary to necrotizing fasciitis sacrum: -CT abdomen and pelvis with chest concerns for necrotizing fasciitis and involvement of coccygeal osteomyelitis -continue on IV vanc Zosyn. Clindamycin was added -surgery on board. Patient will be taken to the OR in a.m for debridement purposes -noted to have 4 bowel movements today, if this continues to be a trend will get stool cultures as well 2. Leukocytosis: -secondary to above
[2021-06-21 17:10] LABS: Glucose Point of Care 162 mg/dl (65-105)
[2021-06-21 20:00] LABS: Glucose Point of Care 143 mg/dl (65-105)
[2021-06-22] VITALS (44 sets, daily range): BP systolic 97–141; BP diastolic 44–74; PULSE 67–98; RESP 16–32; TEMP 36.6–38.3; O2SAT 85–100
[2021-06-22] MEDS: IPRATROPIUM BR 0.02% INH SOLN 0.5 MG/2.5 ML VIAL INHALATION ×3 (01:32→20:52)
[2021-06-22] MEDS: ALBUTEROL SULFATE NEB 2.5 MG/0.5 ML INH INHALATION ×3 (01:32→20:52)
[2021-06-22] MEDS: DEXTROSE 5%/0.9% SOD CHL 1,000 ML 40 ML IV CONT (03:37)
[2021-06-22 05:12] LABS: Basophils Absolute Auto 0.1 K/mm3 (0.0-0.1); Basophils Percent Auto 0.4 % (0.2-1.2); Eosinophils Absolute Auto 0.1 K/mm3 (0-0.3); Eosinophils Percent Auto 0.6 % (0-4.4); Hematocrit 25.1 % (42.0-52.0); Hemoglobin 7.8 g/dL (14.0-18.0); Immature Granulocyte Absolute 0.14 K/mm3 (0.00-0.031); Immature Granulocyte Percent A 0.7 % (0-0.5); Lymphocytes Absolute Auto 0.71 K/mm3 (0.9-3.2); Lymphocytes Percent Auto 3.8 % (18.3-44.2); Mean Corpuscular HGB Conc 31.1 g/dl (32-36); Mean Corpuscular Hemoglobin 27.8 pg (26-34); Mean Corpuscular Volume 89.3 fl (80-100); Mean Platelet Volume 11.5 fl (7.4-10.4); Monocytes Percent Auto 5.4 % (2.6-8.5); Neutrophils Absolute Auto 16.8 K/mm3 (1.3-6.7); Neutrophils Percent Auto 89.1 % (45.5-73.1); Platelet Count Result 261 k/mm3 (150-375); Red Blood Count 2.81 M/mm3 (4.6-6.20); Red Cell Distribution Width 16.6 % (11.5-14.5); White Blood Count 18.9 K/mm3 (4.5-10.0)
[2021-06-22] MEDS: CLINDAMYCIN 600 MG/D5W 50 ML 600 MG/50 ML PIGGYBACK 100 MG IVPB ×3 (05:17→21:53)
[2021-06-22 05:36] LABS: Alanine Aminotransferase 32 U/L (4-50); Albumin Level 2.1 g/dL (3.5-5.1); Alkaline Phosphatase 497 U/L (38-126); Anion Gap 6 mmol/L (8-16); Aspartate Amino Transferase 71 U/L (17-59); Bilirubin,Total 3.1 mg/dL (0.2-1.3); Blood Urea Nitrogen 63 mg/dL (9-20); Calcium 7.5 mg/dL (8.4-10.2); Carbon Dioxide 30 mmol/L (22-30); Chloride 94 mmol/L (98-107); Estimated CRCL calculation 23 ml/min; Estimated Glomerular Filt Rate 18; Glucose 110 mg/dL (65-110); Magnesium 1.9 mg/dL (1.6-2.3); Phosphorus 3.7 mg/dL (2.5-4.5); Potassium 4.3 mmol/L (3.4-5.0); Sodium 130 mmol/L (137-145)
[2021-06-22 06:10] LABS: Lactic Acid Reflex 0.7 mmol/L (0.7-2.1)
[2021-06-22 06:23] LABS: INR 1.3; Prothrombin Time 16.2 Seconds (11.1-14.7)
[2021-06-22 08:20] LABS: Glucose Point of Care 107 mg/dl (65-105)
--- NOTE | 2021-06-22 08:58 | PM.PNCARD ---
Progress Note: A&P Assessment and Plan (1) Acute combined systolic and diastolic CHF, NYHA class 1: Code(s): I50.41 - Acute combined systolic (congestive) and diastolic (congestive) heart failure Status: Acute Assessment and Plan: Patient presented with acute on chronic systolic and diastolic heart failure, anasarca, pleural effusions. Had thoracentesis 06/15/2021. Off dobutamine. Lasix 80 mg p.o. b.i.d.. Respiratory status and edema improving with hemodialysis. Continue volume management with hemodialysis. Hemodialysis schedule today per Nephrology. Faint crackles on exam with complaints of shortness of breath. Will monitor response to hemodialysis. (2) Ischemic cardiomyopathy: Code(s): I25.5 - Ischemic cardiomyopathy Status: Acute Assessment and Plan: EF was 40-45%, now 50-55%, improved with lisinopril, metoprolol. Myocardial Perfusion imaging suggests an
[2021-06-22] MEDS: ISOSORBIDE MONONITRATE 60 MG TAB.ER.24H PO (09:08)
[2021-06-22] MEDS: FUROSEMIDE 80 MG TABLET PO ×2 (09:08→16:59)
[2021-06-22] MEDS: GABAPENTIN 300 MG CAPSULE PO ×2 (09:08→16:59)
[2021-06-22] MEDS: METOPROLOL TARTRATE 50 MG TAB PO ×2 (09:08→21:53)
[2021-06-22] MEDS: ASPIRIN 81 MG CHEWABLE TABLET PO (09:08)
[2021-06-22] MEDS: lisinopriL 20 MG TABLET PO (09:08)
[2021-06-22] MEDS: MUPIROCIN 2% OINT 22 GM TUBE 1 APPLIC TOPICAL ×2 (09:10→21:53)
[2021-06-22] MEDS: SILVERGEL (ELTA) 45 ML 1 APPLIC TOPICAL (09:11)
[2021-06-22] MEDS: SODIUM CHLORIDE 0.9% IV 500 ML 30 ML IV CONT (13:15)
--- NOTE | 2021-06-22 13:24 | SUR.PREOP ---
1230; NAVIN PERRY RN SPOKE WITH DR CHOW REGARDING ORDER FOR BLOOD PRIOR TO OR. DR CHOW STATED IF BLOOD READY THEN GIVE IT, BUT WILL NOT DELAY SURGERY.
--- NOTE | 2021-06-22 13:36 | WPDHPUPDATE1 ---
History and Physical Update Update Date/Time: 06/22/21 13:36 History and Physical has been reviewed, including an updated exam of the patient. There are NO changes in the patient's condition. Risks, benefits, and alternatives have been discussed and questions answered. Patient agrees to proceed with procedure.
--- NOTE | 2021-06-22 13:39 | SUR.PREOP ---
SPOKE WITH DR CHOW, PT TEMP 101, RECEIVED PO TYLENOL TODAY AT 1042. BLOOD NOT READY AT THIS TIME. NOTIFIED DR PAVON AND DR CHOW OF PT'S IV STATUS, #22 IN RT HAND, RUNS SLOWLY. DIFFICULTY STICK.
--- NOTE | 2021-06-22 13:48 | WPDANESEPPF ---
Anes - Initial Pre Proc Eval Procedure: Operation Date: 06/13/21 10:30 Proposed Procedures p Insertion Right Hemodialysis Catheter - Mike Tilley MD Operation Date: 06/22/21 13:30 Proposed Procedures p Debridement Sacral Decubitis - Walt Pisano DO Date/Time: 06/22/21 13:48 Surgeon: Griselda Vasquez MD Pre Op Diagnosis: CHF/acute on chronic renal failure/encephalopathy Patient Data Age: 45 Gender: M Height: 1.65 m Weight: 82.6 kg Last Vital Signs Temp 37.2 C 06/22/21 12:57 Pulse 75 06/22/21 12:57 Resp 18 06/22/21 12:57 BP 133/56 L 06/22/21 12:57 Pulse Ox 99 06/22/21 12:48 Allergies Allergy/AdvReac Type Severity Reaction Status Date / Time No Known Allergies Allergy Verified 05/20/21 19:58 Home Medications Medication Instructions Recorded Confirmed Type bumetanide 1 mg PO BID #60 tablet 02/25/21 05/21/21 Rx isosorbide mononitrate 60 mg PO DAILY PRN #30 tablet 02/25/21 05/21/21 Rx lisinopril 20 mg PO QAM #30 tablet 02/25/21 05/21/21 Rx metoprolol tartrate 50 mg PO BID #60 tablet 02/25/21 05/21/21 Rx amlodipine 10 mg PO DAILY 05/21/21 05/21/21 History glipizide 10 mg PO DAILY 05/21/21 05/21/21 History Laboratory Tests 06/21/21 06/21/21 06/22/21 17:07 19:37 04:25 WBC 18.9 K/mm3 H K/mm3 (4.5-10.0) RBC 2.81 M/mm3 L M/mm3 (4.6-6.20) Hgb 7.8 g/dL L g/dL (14.0-18.0) Hct 25.1 % L % (42.0-52.0) MCV 89.3 fl fl (80-100) MCH 27.8 pg pg (26-34) MCHC 31.1 g/dl L g/dl (32-36) RDW 16.6 % H % (11.5-14.5) Plt Count 261 k/mm3 k/mm3 (150-375) MPV 11.5 fl H fl (7.4-10.4) Immature Gran % (Auto) 0.7 % H % (0-0.5) Neut % (Auto) 89.1 % H % (45.5-73.1) Lymph % (Auto) 3.8 % L % (18.3-44.2) [place] % (Auto) 5.4 % % (2.6-8.5) Eos % (Auto) 0.6 % % (0-4.4) Baso % (Auto) 0.4 % % (0.2-1.2) Lymph # (Auto) 0.71 K/mm3 L K/mm3 (0.9-3.2) [place] # (Auto) 1.0 K/mm3 H K/mm3 (0.1-0.6) Eos # (Auto) 0.1 K/mm3 K/mm3 (0-0.3) Baso # (Auto) 0.1 K/mm3 K/mm3 (0.0-0.1) Abs Immat Gran (auto) 0.14 K/mm3 H K/mm3 (0.00-0.031) Absolute Neuts (auto) 16.8 K/mm3 H K/mm3 (1.3-6.7) Absolute Nucleated RBC 0.0 K/mm3 K/mm3 (0.0-0.012) Nucleated RBC % 0.0 % % (0.0-0.2) PT INR Sodium Potassium Chloride Carbon Dioxide Anion Gap BUN Creatinine Estim Creat Clear Calc Estimated GFR Glucose POC Capillary Glucose 162 mg/dl H mg/dl 143 mg/dl H mg/dl (65-105) (65-105) Lactic Acid Calcium Phosphorus Magnesium Total Bilirubin AST ALT Alkaline Phosphatase Lactate Dehydrogenase Total Protein Albumin Cholesterol 06/22/21 06/22/21 06/22/21 04:25 05:51 05:51 WBC RBC Hgb Hct MCV MCH MCHC RDW Plt Count MPV Immature Gran % (Auto) Neut % (Auto) Lymph % (Auto) [place] % (Auto) Eos % (Auto) Baso % (Auto) Lymph # (Auto) [place] # (Auto) Eos # (Auto) Baso # (Auto) Abs Immat Gran (auto) Absolute Neuts (auto) Absolute Nucleated RBC Nucleated RBC % PT 16.2 Seconds H Seconds (11.1-14.7) INR 1.3 Sodium 130 mmol/L L mmol/L (137-145) Potassium 4.3 mmol/L mmol/L (3.4-5.0) Chloride 94 mmol/L L mmol/L (98-107) Carbon Dioxide
[2021-06-22 13:51] LABS: Glucose Point of Care 88 mg/dl (65-105)
--- NOTE | 2021-06-22 14:14 | PM.PNNEP ---
Progress Note: A&P Assessment and Plan (1) GLNEN (acute kidney injury): Code(s): N17.9 - Acute kidney failure, unspecified Status: Acute Assessment and Plan: hemodialysis under way (2) Stage 3b chronic kidney disease: Onset Date: Unknown Code(s): N18.32 - Chronic kidney disease, stage 3b Status: Chronic Assessment and Plan: I believe he has approached end-stage renal disease. I asked care management to set him up for outpatient dialysis (3) Hallucinations: Code(s): R44.3 - Hallucinations, unspecified Status: Acute Assessment and Plan: Mental status seems better no restraints and no sitter. He has not tried pulling anything out lately. (4) Acute combined systolic and diastolic CHF, NYHA class 1: Code(s): I50.41 - Acute combined systolic (congestive) and diastolic (congestive) heart failure Status: Acute Assessment and Plan: well known issues with several recent hospitalizations for this problems Repeat echo shows EF of 50% now. He also has very thick LV wall. (5) Anasarca: Code(s): R60.1 - Generalized edema Status: Acute Assessment and Plan: Improved with dialysis. (6) Hypertension: Qualifiers: Hypertension type: unspecified Qualified Code(s): I10 - Essential (primary) hypertension Code(s): I10 - Essential (primary) hypertension Status: Acute Assessment and Plan: blood pressure is Well controlled. on same doses ofmetoprolol and lisinopril. (7) Diabetes: Code(s): E11.9 - Type 2 diabetes mellitus without complications Status: Chronic Assessment and Plan: follow Accu-Cheks on sliding-scale insulin (8) EPO-resistant anemia: Code(s): D63.1 - Anemia in chronic kidney disease Status: Acute Assessment and Plan: Hemoglobin down to 7.1 Today. We can give a transfusion later today if he needs it. Currently trying to get enough time on dialysis to give him a transfusion (9) Leukocytosis: Qualifiers: Leukocytosis type: unspecified Qualified Code(s): D72.829 - Elevated white blood cell count, unspecified Code(s): D72.829 - Elevated white blood cell count, unspecified Status: Acute Assessment and Plan: patient's white count is elevated. Cultures have been obtained and he is on vancomycin plus Zosyn. surgery is going to do a debridement today. Subjective Date/time seen: 06/22/21 14:14 Interval history: Gustavo is an unfortunate 45-year-old male who has acute kidney injury on top of chronic kidney disease. Patient is comfortable lying in bed. he is on dialysis now and tolerating well. Blood pressure is doing okay. He was seen at 10:45 a.m. Exam Narrative: General: WDWN male in NAD . He looks more dyspneic. Heart: normal S1 and S2; no rub or gallop Lungs: decreased breath sounds at bases . No rub. Abdomen: soft, nontender, nondistended, positive bowel sounds Extremities: 1+ edema And no cyanosis Skin: No rash except for chronic venous stasis changes on his legs. Objective Data Vital Signs Vital Signs: Vital Signs - 24 hr 06/21/21 14:32 06/21/21 14:41 06/21/21 14:42 Temperature Pulse Rate 76 78 72 Respiratory Rate 18 18 22 H Blood Pressure Pulse Oximetry 96 06/21/21 16:00 06/21/21 18:00 06/21/21 20:00 Temperature 36.9 C 36.8 C Pulse Rate 80 81 81 Respiratory Rate 22 H 20 Blood Pressure 108/50 L 104/52 L Pulse Oximetry 93 93 06/21/21 20:50 06/21/21 20:58 06/21/21 21:07 Temperature Pulse Rate 83 72 82 Respiratory Rate 28 H 24 H Blood Pressure Pulse Oximetry 93 06/21/21 22:00 06/21/21 23:34 06/21/21 23:44 Temperature 37.3 C Pulse Rate 75 74 Respiratory Rate 20 Blood Pressure 113/57 L Pulse Oximetry 96 92 06/22/21 00:00 06/22/21 01:33 06/22/21 01:39 Temperature Pulse Rate 69 68 67 Respir
[2021-06-22 14:17] LABS: Glucose Pleural Fluid 167 mg/dL; LDH Pleural Fluid 58 U/L; Total Protein Pleural Fluid <3.0 g/dL
[2021-06-22 14:24] LABS: Albumin Level 2.7 g/dL (3.5-5.1); Cholesterol 70 mg/dL (0-200); Glucose 106 mg/dL (65-110)
[2021-06-22] MEDS: LIDO 1%/EPINEPHRINE 1:100,000 50 ML VIAL 30 ML INFILTRATE (14:49)
--- NOTE | 2021-06-22 15:02 | W.PM.PROC2 ---
Procedure Note - Detailed Date of Procedure 06/23/21 Pre-op Diagnosis Unstageable sacral decubitus ulcer Post-op Diagnosis other (Stage 3 Sacral decubitus ulcer) Procedure Performed Sharp excisional debridement sacral decubitus ulcer including skin, subcutaneous fat, muscle, and fascia measuring 4 cm x 6 cm Surgeon Walt Pisano, DO Anesthesia general and local ( 1% lidocaine with epinephrine) Indications this is a 45-year-old man who has been hospitalized with multiple medical problems over the past month. He presented with acute on chronic congestive heart failure and was in cardiogenic shock and required a long intensive care unit stay. He has also had worsening acute on chronic kidney failure requiring hemodialysis. He has developed an unstageable sacral decubitus ulcer and was being treated with local wound care. He has had an increasing white blood count over the past week which led to the hospitalist ordering a CT chest abdomen and pelvis yesterday. This showed evidence of a soft tissue infection in the sacral subcutaneous space which also raised concern for possible necrotizing fasciitis. Decision was made to proceed with debridement of sacral decubitus ulcer. Findings Sharp excisional debridement of sacral decubitus ulcer was performed. The total area of the debridement measured 4 cm x 6 cm. Sharp debridement was performed using a 15 blade scalpel and scissors to cut away all of the necrotic tissue. There was some purulence drainage deep to the skin. I sharply debrided back to healthy appearing tissue. I a palpated the region and did not find any suspicions for necrotizing fasciitis. The wound was then irrigated and packed with Betadine-soaked Kerlix gauze. Description of Procedure Procedure as well as risks, benefits, and alternatives discussed with patient and family. Written consent obtained and placed in chart prior to the procedure. Patient was brought back to surgical suite. He was placed in left lateral decubitus position on the operating table. General LMA anesthesia was administered by the Anesthesia Department. His sacral area was prepped and draped in sterile fashion using Betadine prep. 1% lidocaine with epinephrine was infiltrated locally around the skin around the sacral ulcer. The surface of the sacral ulcer was then sharply excised with a 15 blade scalpel. Deep to the skin there was purulence drainage and necrotic subcutaneous tissue. The purulence fluid was drained and then sharp excisional debridement of subcutaneous fat, muscle, and fascia was performed using curved Parker scissors. Excision was carried out down to healthy appearing tissue. The coccyx was able to be palpated and appeared firm and intact. I did not see any clear evidence of osteomyelitis at the wound bed. After all the necrotic tissue was adequately excised, I then irrigated the wound with sterile saline. The wound was then packed with Betadine-soaked 4 in Kerlix gauze. Fluff gauze, ABD pad, and tape were then applied. The patient was then awakened from anesthesia, extubated, and transferred to recovery. Estimated Blood Loss 5 Packing Yes ( Betadine soaked Kerlix gauze) Pathology none sent Complications No immediate complications Condition stable Disposition other ([facility])
[2021-06-22 15:03] LABS: Lactate Dehydrogenase 513 U/L (313-618)
[2021-06-22 15:29] LABS: Glucose Point of Care 86 mg/dl (65-105)
[2021-06-22] MEDS: LACTATED RINGERS 1,000 ML 30 ML IV CONT (16:46)
[2021-06-22 17:39] LABS: Glucose Point of Care 89 mg/dl (65-105)
[2021-06-22] MEDS: SODIUM CHLORIDE 0.9% IV 250 ML 30 ML IV CONT (18:00)
[2021-06-22] MEDS: ACETAMINOPHEN 500 MG TABLET PO (18:27)
[2021-06-22 19:39] LABS: Appearance Pleural Fluid Clear (Clear); Color Pleural Fluid Yellow (Colorless); Nucleated Cell Pleural Fluid 204 /uL (0-1000); Pleural fluid source Pleural fluid; RBC Pleural Fluid 371 /uL (0-0)
--- NOTE | 2021-06-22 19:44 | PM.IMPN ---
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: Code(s): E10.22 - Type 1 diabetes mellitus with diabetic chronic kidney disease; N18.5 - Chronic kidney disease, stage 5 Status: Acute (5) Decubitus ulcer of sacral region, unstageable: Code(s): L89.150 - Pressure ulcer of sacral region, unstageable Status: Acute (6) Leukocytosis: Qualifiers: Leukocytosis type: unspecified Qualified Code(s): D72.829 - Elevated white blood cell count, unspecified Code(s): D72.829 - Elevated white blood cell count, unspecified Status: Acute (7) Dependence on renal dialysis: Code(s): Z99.2 - Dependence on renal dialysis Status: Acute (8) Sepsis: Qualifiers: Sepsis type: sepsis due to unspecified organism Sepsis acute organ dysfunction status: with acute organ dysfunction Severe sepsis acute organ dysfunction type: acute renal failure Acute renal failure type: unspecified Severe sepsis shock status: without septic shock Qualified Code(s): A41.9 - Sepsis, unspecified organism; R65.20 - Severe sepsis without septic shock; N17.9 - Acute kidney failure, unspecified Code(s): A41.9 - Sepsis, unspecified organism Status: Acute (9) Hyponatremia: Code(s): E87.1 - Hypo-osmolality and hyponatremia Status: Acute (10) Hyperbilirubinemia: Code(s): E80.6 - Other disorders of bilirubin metabolism Status: Acute (11) UTI (urinary tract infection): Qualifiers: Urinary tract infection type: acute cystitis Hematuria presence: without hematuria Qualified Code(s): N30.00 - Acute cystitis without hematuria Code(s): N39.0 - Urinary tract infection, site not specified Status: Acute (12) EPO-resistant anemia: Code(s): D63.1 - Anemia in chronic kidney disease Status: Acute (13) Urinary retention: Code(s): R33.9 - Retention of urine, unspecified Status: Acute (14) Hypertension: Qualifiers: Hypertension type: unspecified Qualified Code(s): I10 - Essential (primary) hypertension Code(s): I10 - Essential (primary) hypertension Status: Acute (15) Ascites: Qualifiers: Ascites type: other type Qualified Code(s): R18.8 - Other ascites Code(s): R18.8 - Other ascites Status: Acute (16) Anasarca: Code(s): R60.1 - Generalized edema Status: Acute (17) Unstageable decubitus ulcer: Qualifiers: Pressure injury location: sacral region Qualified Code(s): L89.150 - Pressure ulcer of sacral region, unstageable Code(s): L89.95 - Pressure ulcer of unspecified site, unstageable Status: Acute Additional Plan 1. Sepsis secondary to necrotizing fasciitis sacrum: -CT abdomen and pelvis with chest concerns for necrotizing fasciitis and involvement of coccygeal osteomyelitis -continue on IV vanc, Zosyn and clindamycin -surgery on board. For OR today for debridement purposes. Would recommend sending cultures from water and also bone was debrided and cultures of bone diagnosed osteomyelitis -Based on this further treatment strategy would be optimized. 2. Leukocytosis: -improved -secondary to above 3. Elevated bilirubinemia: -elevated bilirubin with indirect bilirubin making about Palmer fraction. Possibly secondary to the transfusion that the patient had received. 4. Encephalopathy somewhat improve: -possibly metabolic -continue management as above 5. Large right-sided pleural effusion: -patient seems to be recollecting right-sided pleural effusion -radio
[2021-06-22 19:48] LABS: Lymphocytes Pleural Fluid 13 %; Macrophages Pleural Fluid 15 %; Mesothelial Cells Pleural Flui 2 %; Neutrophils Pleural Fluid 70 % (0-25)
[2021-06-22 20:34] LABS: Glucose Point of Care 126 mg/dl (65-105)
[2021-06-22 21:33] LABS: Vancomycin Random 9.4 ug/mL (10-20)
[2021-06-23] VITALS (25 sets, daily range): BP systolic 113–137; BP diastolic 57–69; PULSE 67–81; RESP 18–26; TEMP 36.4–37.4; O2SAT 96–100
[2021-06-23] MEDS: IPRATROPIUM BR 0.02% INH SOLN 0.5 MG/2.5 ML VIAL INHALATION ×4 (01:12→21:28)
[2021-06-23] MEDS: ALBUTEROL SULFATE NEB 2.5 MG/0.5 ML INH INHALATION ×4 (01:13→21:28)
[2021-06-23 05:40] LABS: Basophils Absolute Auto 0.1 K/mm3 (0.0-0.1); Basophils Percent Auto 0.3 % (0.2-1.2); Eosinophils Absolute Auto 0.2 K/mm3 (0-0.3); Eosinophils Percent Auto 1.1 % (0-4.4); Hematocrit 30.4 % (42.0-52.0); Hemoglobin 9.5 g/dL (14.0-18.0); Immature Granulocyte Absolute 0.13 K/mm3 (0.00-0.031); Immature Granulocyte Percent A 0.7 % (0-0.5); Lymphocytes Absolute Auto 0.69 K/mm3 (0.9-3.2); Lymphocytes Percent Auto 3.8 % (18.3-44.2); Mean Corpuscular HGB Conc 31.3 g/dl (32-36); Mean Corpuscular Hemoglobin 27.2 pg (26-34); Mean Corpuscular Volume 87.1 fl (80-100); Mean Platelet Volume 11.1 fl (7.4-10.4); Monocytes Absolute Auto 1.3 K/mm3 (0.1-0.6); Monocytes Percent Auto 7.2 % (2.6-8.5); Neutrophils Absolute Auto 15.7 K/mm3 (1.3-6.7); Neutrophils Percent Auto 86.9 % (45.5-73.1); Platelet Count Result 274 k/mm3 (150-375); Red Blood Count 3.49 M/mm3 (4.6-6.20); Red Cell Distribution Width 16.4 % (11.5-14.5); White Blood Count 18.1 K/mm3 (4.5-10.0)
[2021-06-23] MEDS: CLINDAMYCIN 600 MG/D5W 50 ML 600 MG/50 ML PIGGYBACK 100 MG IVPB ×3 (06:13→21:03)
[2021-06-23 06:32] LABS: Alanine Aminotransferase 25 U/L (4-50); Albumin Level 2.2 g/dL (3.5-5.1); Alkaline Phosphatase 440 U/L (38-126); Anion Gap 11 mmol/L (8-16); Aspartate Amino Transferase 48 U/L (17-59); Bilirubin,Total 4.2 mg/dL (0.2-1.3); Blood Urea Nitrogen 51 mg/dL (9-20); CRP 7.8 mg/dL (<1.0); Calcium 7.5 mg/dL (8.4-10.2); Carbon Dioxide 26 mmol/L (22-30); Chloride 96 mmol/L (98-107); Creatine Kinase 35 U/L (55-170); Estimated CRCL calculation 25 ml/min; Estimated Glomerular Filt Rate 20; Glucose 105 mg/dL (65-110); Lactate Dehydrogenase 479 U/L (313-618); Sodium 133 mmol/L (137-145)
[2021-06-23 08:41] LABS: Glucose Point of Care 177 mg/dl (65-105)
[2021-06-23] MEDS: ATORVASTATIN 40 MG TABLET PO (09:24)
[2021-06-23] MEDS: FUROSEMIDE 80 MG TABLET PO ×2 (09:24→16:06)
[2021-06-23] MEDS: lisinopriL 20 MG TABLET PO (09:24)
[2021-06-23] MEDS: GABAPENTIN 300 MG CAPSULE PO ×3 (09:24→16:06)
[2021-06-23] MEDS: ASPIRIN 81 MG CHEWABLE TABLET PO (09:24)
[2021-06-23] MEDS: ISOSORBIDE MONONITRATE 60 MG TAB.ER.24H PO (09:24)
[2021-06-23] MEDS: METOPROLOL TARTRATE 50 MG TAB PO ×2 (09:24→21:04)
[2021-06-23] MEDS: PANTOPRAZOLE 40 MG TABLET PO (09:25)
[2021-06-23] MEDS: HYDROmorphone HCL INJ (*CRX) 1 MG/ML SYR 0.5 MG IV PUSH (09:37)
--- NOTE | 2021-06-23 10:05 | PM.PNNEP ---
Progress Note: A&P Assessment and Plan (1) GLENN (acute kidney injury): Code(s): N17.9 - Acute kidney failure, unspecified Status: Acute Assessment and Plan: hemodialysis due tomorrow (2) Stage 3b chronic kidney disease: Onset Date: Unknown Code(s): N18.32 - Chronic kidney disease, stage 3b Status: Chronic Assessment and Plan: I believe he has approached end-stage renal disease. I asked care management to set him up for outpatient dialysis (3) Hallucinations: Code(s): R44.3 - Hallucinations, unspecified Status: Acute Assessment and Plan: Mental status improved no restraints and no sitter. He has not tried pulling anything out lately. (4) Acute combined systolic and diastolic CHF, NYHA class 1: Code(s): I50.41 - Acute combined systolic (congestive) and diastolic (congestive) heart failure Status: Acute Assessment and Plan: well known issues with several recent hospitalizations for this problems Repeat echo shows EF of 50% now. He also has very thick LV wall. (5) Anasarca: Code(s): R60.1 - Generalized edema Status: Acute Assessment and Plan: Reason (6) Hypertension: Qualifiers: Hypertension type: unspecified Qualified Code(s): I10 - Essential (primary) hypertension Code(s): I10 - Essential (primary) hypertension Status: Acute Assessment and Plan: blood pressure is Well controlled. on same doses ofmetoprolol and lisinopril. (7) Diabetes: Code(s): E11.9 - Type 2 diabetes mellitus without complications Status: Chronic Assessment and Plan: follow Accu-Cheks on sliding-scale insulin (8) EPO-resistant anemia: Code(s): D63.1 - Anemia in chronic kidney disease Status: Acute Assessment and Plan: Hemoglobin was 8.0 yesterday. Check another tomorrow (9) Leukocytosis: Qualifiers: Leukocytosis type: unspecified Qualified Code(s): D72.829 - Elevated white blood cell count, unspecified Code(s): D72.829 - Elevated white blood cell count, unspecified Status: Acute Assessment and Plan: patient's white count is elevated. Cultures have been obtained and he is on vancomycin plus Zosyn. surgery did a debridement. Subjective Date/time seen: 06/23/21 10:05 Interval history: Gustavo is an unfortunate 45-year-old male who has acute kidney injury on top of chronic kidney disease. Patient is comfortable lying in bed. He had debridement last evening. He looks better today. He is hungry and ate a good breakfast Exam Narrative: General: WDWN male in NAD . He looks more dyspneic. Heart: normal S1 and S2; no rub Lungs: decreased breath sounds at bases . Abdomen: soft, nontender, nondistended, positive bowel sounds Extremities: 1+ edema Skin: No rash except for chronic venous stasis changes on his legs. Objective Data Vital Signs Vital Signs: Vital Signs - 24 hr 06/22/21 11:00 06/22/21 11:06 06/22/21 11:15 Temperature 37.2 C Pulse Rate 76 75 74 Respiratory Rate 18 Blood Pressure 136/69 133/71 115/53 L Pulse Oximetry 06/22/21 11:30 06/22/21 11:45 06/22/21 12:00 Temperature Pulse Rate 72 72 71 Respiratory Rate Blood Pressure 126/54 L 125/58 L 131/55 L Pulse Oximetry 06/22/21 12:15 06/22/21 12:25 06/22/21 12:48 Temperature 38.3 C H Pulse Rate 71 72 76 Respiratory Rate 20 Blood Pressure 130/63 134/67 123/61 Pulse Oximetry 99 06/22/21 12:57 06/22/21 14:59 06/22/21 15:10 Temperature 37.2 C Pulse Rate 75 92 96 Respiratory Rate 18 22 H 20 Blood Pressure 133/56 L 112/44 L 128/73 Pulse Oximetry 94 06/22/21 15:25 06/22/21 16:00 06/22/21 16:18 Temperature 37.2 C Pulse Rate 95 91 98 Respiratory Rate 20 16 20 Blood Pressure 132/74 120/50 L 107/54 L Pulse Oximetry 96 100 93 06/22/21 16:19 06/22/21 17:00 06/22/21 18:00
[2021-06-23 12:23] LABS: Glucose Point of Care 204 mg/dl (65-105)
--- NOTE | 2021-06-23 12:33 | PCDIET ---
Nutrition Follow-Up Complete: Nutrition Diagnosis: Inadequate oral intake related to altered mental status as evidenced by need for tube feedings. Nutrition Goal: Patient to meet estimated nutritional needs. Goal in progress. Average intake since 06/19/21 has been 60% of recorded meals on heart healthy diet. Recommend adding Nepro (425kcal, 19g protein) BID to supplement intakes and promote healing. Last recorded weight is 82.6 kg which is stable with last review. -I/O. Patient had 1L UF and 1L thoracentesis on 06/22/21. Bowel Motility: Last documented BM on 06/20/21 x 4. Labs Reviewed: WBC (18.1), RBC (3.49), Hgb (9.5), Hct (30.4), Glu (177), BUN (51), Cr (3.4), Na (133), Alb (2.2), Luclile Ca (8.94) Meds Noted: Albuterol, Lipitor, Clindamycin, Lasix, Dilaudid, Atrovent, Imdur, Prinivil, Lopressor, Protonix, Zosyn, Vancomycin Additional Notes: Patient had debridement of sacral decubitus on 06/22/21, as well as thoracentesis. Integumentary notes reviewed. Will continue to monitor with same goal. Nutrition Monitoring and Evaluation: Follow up in 5 days.
[2021-06-23] MEDS: INSULIN ASPART (*BKC) 100 UNITS/ML SUB-Q ×2 (12:44→17:08)
--- NOTE | 2021-06-23 13:45 | PM.PNCARD ---
Progress Note: A&P Assessment and Plan (1) Acute combined systolic and diastolic CHF, NYHA class 1: Code(s): I50.41 - Acute combined systolic (congestive) and diastolic (congestive) heart failure Status: Acute Assessment and Plan: Patient presented with acute on chronic systolic and diastolic heart failure, anasarca, pleural effusions. Had thoracentesis 06/15/2021. Off dobutamine. Lasix 80 mg p.o. b.i.d.. Respiratory status and edema improving with hemodialysis. Continue volume management with hemodialysis. Hemodialysis schedule today per Nephrology. Faint crackles on exam with complaints of shortness of breath. New friction rub noted on exam today. Afebrile, no new arrhythmias. Hemodynamically stable. If persists or complaints of chest pain repeat 2D echocardiogram. Obtain 12 lead EKG today. (2) Ischemic cardiomyopathy: Code(s): I25.5 - Ischemic cardiomyopathy
--- NOTE | 2021-06-23 13:53 | ECG_ITS ---
Measurements Intervals [place] Rate: 71 P: 21 MD: 155 QRS: -20 QRSD: 100 T: 55 QT: 386 QTc: 421 Interpretive Statements SINUS RHYTHM DELAYED PRECORDIAL R/S TRANSITION BORDERLINE ECG Electronically Signed On 06-23-2021 14:24:56 CDT by Reji Dasilva D.O.
--- NOTE | 2021-06-23 15:13 | PM.PNGS ---
Progress Note: A&P Assessment and Plan (1) Decubitus ulcer of sacral region, unstageable: Code(s): L89.150 - Pressure ulcer of sacral region, unstageable Status: Acute Assessment and Plan: POD#1 excisional debridement of sacral decubitus ulcer. Continue local wound care with iodoform packing daily. I have asked the wound care nurses to evaluate if he would be a candidate for wound VAC therapy in the next few days. Frequent turning, continue pressure reducing measures. (2) Leukocytosis: Qualifiers: Leukocytosis type: unspecified Qualified Code(s): D72.829 - Elevated white blood cell count, unspecified Code(s): D72.829 - Elevated white blood cell count, unspecified Status: Acute Assessment and Plan: WBC 18,100 today. Continue to monitor trend. Continue IV antibiotics. (3) Acute kidney injury superimposed on chronic kidney disease: Code(s): N17.9 - Acute kidney failure, unspecified; N18.9 - Chronic kidney disease, unspecified Status: Acute (4) Encephalopathy: Code(s): G93.40 - Encephalopathy, unspecified Status: Resolved (5) Acute combined systolic and diastolic CHF, NYHA class 1: Code(s): I50.41 - Acute combined systolic (congestive) and diastolic (congestive) heart failure Status: Acute (6) Insulin dependent diabetes mellitus: Status: Chronic Additional Plan I have discussed the plan of care with Dr. Pisano. Subjective Subjective Date/Time Seen: 06/23/21 15:13 Post Op day: 1 (Sharp excisional debridement of sacral decubitus ulcer) Patient reports: afebrile Interval history: This is a 45-year-old man who has been hospitalized with multiple medical problems over the past month. He presented with acute on chronic congestive heart failure and was in cardiogenic shock and required a long intensive care unit stay. He has also had worsening acute on chronic kidney failure requiring hemodialysis. He has developed an unstageable sacral decubitus ulcer and was being treated with local wound care. He underwent surgical debridement yesterday by Dr. Pisano of the sacral decubitus ulcer. Chart reviewed. He is seen this afternoon with his nurse at the bedside. He remains confused. No specific complaints. He had hemodialysis yesterday and a thoracentesis as well. His sacral dressing was changed by the nurse just before coming into the room after having a large BM. No acute events overnight. Review of Systems Review of Systems: ROS unobtainable: Yes unobtainable due to medical condition and unobtainable due to mental status Exam Const: General: no acute distress and alert Orientation/consciousness: confusion Limitations: altered mental status Skin: Other: Left lower leg dressing clean, dry, and intact. Sacral dressing clean and dry, overlying ABD removed and wound had iodoform packing in place. No purulent drainage. ABD reapplied with tape. Extrem: General: no pedal edema Other: Status post right BKA Psych: Appearance: disheveled Insight: Limited insight present (Psych) and Poor insight present (Psych) Judgement: Limited judgement present (Psych) and Poor judgement present (Psych) Objective Data Vital Signs Vital Signs: Vital Signs - 24 hr 06/22/21 15:25 06/22/21 16:00 06/22/21 16:18 Temperature 99.0 F Pulse Rate 95 91 98 Respiratory Rate 20 16 20 Blood Pressure 132/74 120/50 L 107/54 L Pulse Oximetry 96 100 93 06/22/21 16:19 06/22/21 17:00 06/22/21 18:00 Temperature Pulse Rate 98 85 Respiratory Rate 20 Blood Pressure 97/49 L Pulse Oximetry 85 L 100 06/22/21 18:01 06/22/21 18:10 06/22/21 18:25 Temperature 100.7 F H 100.7 F H 100.5 F H Pulse Rate 84 84 88 Respiratory Rate 26 H 26 H 22 H Blood Pressure 124/56 L 124/56 L 134/64 Pulse Oximetry 98 98 100 06/22/21 18:27 06/22/21 19:25 06/22/21 20:00 Temperature 100.5 F H 98.6 F Pulse Rate 81 88 Respiratory Rate 32 H Blood Pressure 108/48
[2021-06-23] MEDS: MUPIROCIN 2% OINT 22 GM TUBE 1 APPLIC TOPICAL ×2 (15:44→21:05)
[2021-06-23 16:15] LABS: Glucose Point of Care 260 mg/dl (65-105)
--- NOTE | 2021-06-23 17:57 | PM.IMPN ---
Progress Note: A&P Assessment and Plan (1) Unstageable decubitus ulcer: Qualifiers: Pressure injury location: sacral region Qualified Code(s): L89.150 - Pressure ulcer of sacral region, unstageable Code(s): L89.95 - Pressure ulcer of unspecified site, unstageable Status: Acute (2) S/P excisional debridement: Code(s): Z98.890 - Other specified postprocedural states Status: Acute (3) Pleural effusion: Code(s): J90 - Pleural effusion, not elsewhere classified Status: Acute (4) Osteomyelitis of coccyx: Code(s): M86.9 - Osteomyelitis, unspecified Status: Acute (5) IgA nephropathy: Code(s): N02.8 - Recurrent and persistent hematuria with other morphologic changes Status: Acute (6) 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: Code(s): E10.22 - Type 1 diabetes mellitus with diabetic chronic kidney disease; N18.5 - Chronic kidney disease, stage 5 Status: Acute (7) Leukocytosis: Qualifiers: Leukocytosis type: unspecified Qualified Code(s): D72.829 - Elevated white blood cell count, unspecified Code(s): D72.829 - Elevated white blood cell count, unspecified Status: Acute (8) Dependence on renal dialysis: Code(s): Z99.2 - Dependence on renal dialysis Status: Acute (9) Sepsis: Qualifiers: Sepsis type: sepsis due to unspecified organism Sepsis acute organ dysfunction status: with acute organ dysfunction Severe sepsis acute organ dysfunction type: acute renal failure Acute renal failure type: unspecified Severe sepsis shock status: without septic shock Qualified Code(s): A41.9 - Sepsis, unspecified organism; R65.20 - Severe sepsis without septic shock; N17.9 - Acute kidney failure, unspecified Code(s): A41.9 - Sepsis, unspecified organism Status: Acute (10) Hyponatremia: Code(s): E87.1 - Hypo-osmolality and hyponatremia Status: Acute (11) Hyperbilirubinemia: Code(s): E80.6 - Other disorders of bilirubin metabolism Status: Acute (12) Leukocytosis: Qualifiers: Leukocytosis type: unspecified Qualified Code(s): D72.829 - Elevated white blood cell count, unspecified Code(s): D72.829 - Elevated white blood cell count, unspecified Status: Acute (13) UTI (urinary tract infection): Qualifiers: Urinary tract infection type: acute cystitis Hematuria presence: without hematuria Qualified Code(s): N30.00 - Acute cystitis without hematuria Code(s): N39.0 - Urinary tract infection, site not specified Status: Acute (14) Scrotal edema: Code(s): N50.89 - Other specified disorders of the male genital organs Status: Acute (15) Urinary incontinence: Qualifiers: Urinary Incontinence type: unspecified incontinence Qualified Code(s): R32 - Unspecified urinary incontinence Code(s): R32 - Unspecified urinary incontinence Status: Acute (16) Combined congestive systolic and diastolic heart failure: Qualifiers: Heart failure chronicity: acute on chronic Qualified Code(s): I50.43 - Acute on chronic combined systolic (congestive) and diastolic (congestive) heart failure Code(s): I50.40 - Unspecified combined systolic (congestive) and diastolic (congestive) heart failure Status: Acute (17) Anemia in chronic illness: Code(s): D63.8 - Anemia in other chronic diseases classified elsewhere Status: Acute (18) Insulin dependent diabetes mellitus: Status: Chronic (19) Acute respiratory failure with hypoxia: Code(s): J96.01 - Acute respiratory failure with hypoxia Status: Acute (20) CAD (coronary artery disease): Qualifiers: Coronary Disease-Associated Artery/Lesion type: [place] artery [place] vs. transplanted heart: [place] heart Associated angina: without angina Qualified Code(s): I25.10 - Atherosclerotic heart disease of [place]
[2021-06-23 20:58] LABS: Glucose Point of Care 169 mg/dl (65-105)
[2021-06-23] MEDS: HEPARIN SODIUM 5,000 UNITS/ML VIAL 5000 UNITS SUB-Q (21:04)
[2021-06-24] VITALS (37 sets, daily range): BP systolic 118–180; BP diastolic 50–96; PULSE 66–103; RESP 12–20; TEMP 36–37.3; O2SAT 96–100
[2021-06-24] MEDS: IPRATROPIUM BR 0.02% INH SOLN 0.5 MG/2.5 ML VIAL INHALATION ×3 (02:35→21:05)
[2021-06-24] MEDS: ALBUTEROL SULFATE NEB 2.5 MG/0.5 ML INH INHALATION ×3 (02:35→21:05)
[2021-06-24] MEDS: oxyCODONE/ACETAMINOPHEN (*CRX) 5-325 MG TABLET 1 TABLET PO (04:59)
[2021-06-24] MEDS: HEPARIN SODIUM 5,000 UNITS/ML VIAL 5000 UNITS SUB-Q ×3 (05:02→22:04)
[2021-06-24] MEDS: CLINDAMYCIN 600 MG/D5W 50 ML 600 MG/50 ML PIGGYBACK 100 MG IVPB ×3 (05:03→22:33)
[2021-06-24 05:13] LABS: Basophils Absolute Auto 0.1 K/mm3 (0.0-0.1); Basophils Percent Auto 0.5 % (0.2-1.2); Eosinophils Absolute Auto 0.5 K/mm3 (0-0.3); Hematocrit 28.9 % (42.0-52.0); Hemoglobin 9.2 g/dL (14.0-18.0); Immature Granulocyte Absolute 0.12 K/mm3 (0.00-0.031); Immature Granulocyte Percent A 0.8 % (0-0.5); Lymphocytes Absolute Auto 0.76 K/mm3 (0.9-3.2); Mean Corpuscular HGB Conc 31.8 g/dl (32-36); Mean Corpuscular Volume 88.1 fl (80-100); Mean Platelet Volume 10.9 fl (7.4-10.4); Monocytes Absolute Auto 1.2 K/mm3 (0.1-0.6); Monocytes Percent Auto 7.9 % (2.6-8.5); Neutrophils Absolute Auto 12.7 K/mm3 (1.3-6.7); Neutrophils Percent Auto 82.8 % (45.5-73.1); Platelet Count Result 299 k/mm3 (150-375); Red Blood Count 3.28 M/mm3 (4.6-6.20); Red Cell Distribution Width 16.7 % (11.5-14.5); White Blood Count 15.3 K/mm3 (4.5-10.0)
[2021-06-24 05:41] LABS: Alanine Aminotransferase 28 U/L (4-50); Albumin Level 2.3 g/dL (3.5-5.1); Alkaline Phosphatase 493 U/L (38-126); Anion Gap 13 mmol/L (8-16); Anisocytosis 1+ (NORMAL); Aspartate Amino Transferase 48 U/L (17-59); Bilirubin,Total 3.6 mg/dL (0.2-1.3); Blood Urea Nitrogen 56 mg/dL (9-20); CRP 8.5 mg/dL (<1.0); Calcium 7.5 mg/dL (8.4-10.2); Carbon Dioxide 24 mmol/L (22-30); Chloride 96 mmol/L (98-107); Estimated CRCL calculation 20 ml/min; Estimated Glomerular Filt Rate 16; Glucose 115 mg/dL (65-110); Hypochromasia 1+ (NORMAL); Ovalocytes 1+ (NORMAL); Phosphorus 5.6 mg/dL (2.5-4.5); Platelet Estimate Adequate (Adequate); Potassium 4.1 mmol/L (3.4-5.0); Sodium 133 mmol/L (137-145)
[2021-06-24 08:21] LABS: Glucose Point of Care 152 mg/dl (65-105)
[2021-06-24] MEDS: SODIUM CHLORIDE 0.9% IV 1,000 ML 999 ML IV CONT (08:25)
--- NOTE | 2021-06-24 10:46 | PCRCNOTE ---
Window of time for administration has passed. See next scheduled administration. Pt. is not in the room.
[2021-06-24] MEDS: EPOETIN ALFA-EPBX 20,000 UNITS/ML VIAL 20000 UNITS IV PUSH (11:35)
[2021-06-24 13:10] LABS: Glucose Point of Care 127 mg/dl (65-105)
--- NOTE | 2021-06-24 15:20 | PM.PNCARD ---
Progress Note: A&P Assessment and Plan (1) Acute combined systolic and diastolic CHF, NYHA class 1: Code(s): I50.41 - Acute combined systolic (congestive) and diastolic (congestive) heart failure Status: Acute Assessment and Plan: Patient presented with acute on chronic systolic and diastolic heart failure, anasarca, pleural effusions. Had thoracentesis 06/15/2021. Off dobutamine. Lasix 80 mg p.o. b.i.d.. Respiratory status and edema improving with hemodialysis. Continue volume management with hemodialysis. Hemodialysis schedule today per Nephrology. Faint crackles on exam with complaints of shortness of breath. Friction rub noted on exam yesterday curiously resolved. Twelve lead EKG was unchanged. Currently asymptomatic. Will continue to monitor. Hemodynamically stable. Patient's overall prognosis remains highly guarded. (2) Ischemic cardiomyopathy: Code(s): I25.
[2021-06-24] MEDS: ASPIRIN 81 MG CHEWABLE TABLET PO (15:59)
[2021-06-24] MEDS: FUROSEMIDE 80 MG TABLET PO (15:59)
[2021-06-24] MEDS: ATORVASTATIN 40 MG TABLET PO (15:59)
[2021-06-24] MEDS: MUPIROCIN 2% OINT 22 GM TUBE 1 APPLIC TOPICAL ×2 (16:00→20:18)
[2021-06-24] MEDS: lisinopriL 20 MG TABLET PO (16:00)
[2021-06-24] MEDS: GABAPENTIN 300 MG CAPSULE PO (16:00)
[2021-06-24] MEDS: METOPROLOL TARTRATE 50 MG TAB PO ×2 (16:00→20:18)
[2021-06-24] MEDS: ISOSORBIDE MONONITRATE 60 MG TAB.ER.24H PO (16:00)
[2021-06-24] MEDS: PANTOPRAZOLE 40 MG TABLET PO (16:01)
--- NOTE | 2021-06-24 16:57 | PM.PNNEP ---
Progress Note: A&P Assessment and Plan (1) GLENN (acute kidney injury): Code(s): N17.9 - Acute kidney failure, unspecified Status: Acute Assessment and Plan: hemodialysis was done earlier today. 2L were removed. (2) Stage 3b chronic kidney disease: Onset Date: Unknown Code(s): N18.32 - Chronic kidney disease, stage 3b Status: Chronic Assessment and Plan: I believe he has approached end-stage renal disease. I asked care management to set him up for outpatient dialysis (3) Hallucinations: Code(s): R44.3 - Hallucinations, unspecified Status: Acute Assessment and Plan: Improved (4) Acute combined systolic and diastolic CHF, NYHA class 1: Code(s): I50.41 - Acute combined systolic (congestive) and diastolic (congestive) heart failure Status: Acute Assessment and Plan: well known issues with several recent hospitalizations for this problems Repeat echo shows EF of 50% now. He also has very thick LV wall. (5) Anasarca: Code(s): R60.1 - Generalized edema Status: Acute Assessment and Plan: Reason (6) Hypertension: Qualifiers: Hypertension type: unspecified Qualified Code(s): I10 - Essential (primary) hypertension Code(s): I10 - Essential (primary) hypertension Status: Acute Assessment and Plan: blood pressure is high. on same doses of metoprolol and lisinopril. Will increase lisinopril to40mg a day. Try to remove more fluid on dialysis on Tuesday. (7) Diabetes: Code(s): E11.9 - Type 2 diabetes mellitus without complications Status: Chronic Assessment and Plan: follow Accu-Cheks on sliding-scale insulin (8) EPO-resistant anemia: Code(s): D63.1 - Anemia in chronic kidney disease Status: Acute Assessment and Plan: Hemoglobin was 9.2 today Check another tomorrow (9) Leukocytosis: Qualifiers: Leukocytosis type: unspecified Qualified Code(s): D72.829 - Elevated white blood cell count, unspecified Code(s): D72.829 - Elevated white blood cell count, unspecified Status: Acute Assessment and Plan: patient's white count is elevated but is coming down.. Blood cultures are negative so far. he is on vancomycin plus Zosyn. surgery did a debridement. Subjective Date/time seen: 06/24/21 16:57 Interval history: Gustavo is an unfortunate 45-year-old male who has acute kidney injury on top of chronic kidney disease. Patient is comfortable lying in bed. No chest pain or shortness of breath Exam Narrative: General: WDWN male in NAD . He looks more dyspneic. Heart: normal S1 and S2; no rub or gallop Lungs: decreased breath sounds at bases . Abdomen: soft, nontender, nondistended, positive bowel sounds Extremities: 1+ edema and no cyanosis Skin: No rash except for chronic venous stasis changes on his legs. Objective Data Vital Signs Vital Signs: Vital Signs - 24 hr 06/23/21 18:00 06/23/21 20:00 06/23/21 21:04 Temperature 36.4 C L Pulse Rate 78 75 75 Respiratory Rate 24 H Blood Pressure 131/57 L Pulse Oximetry 100 06/23/21 21:29 06/23/21 21:48 06/23/21 21:49 Temperature Pulse Rate 78 76 Respiratory Rate 18 18 Blood Pressure Pulse Oximetry 96 06/23/21 22:00 06/24/21 00:00 06/24/21 02:00 Temperature Pulse Rate 81 75 71 Respiratory Rate Blood Pressure Pulse Oximetry 100 06/24/21 02:35 06/24/21 02:44 06/24/21 03:27 Temperature Pulse Rate 71 70 Respiratory Rate 18 18 Blood Pressure Pulse Oximetry 98 06/24/21 04:00 06/24/21 06:00 06/24/21 08:00 Temperature 36.6 C 36.8 C Pulse Rate 70 78 70 Respiratory Rate 20 12 Blood Pressure 118/55 L 155/85 H Pulse Oximetry 98 100 06/24/21 08:50 06/24/21 09:00 06/24/21 09:15 Temperature 36.6 C Pulse Rate 72 70 71 Respiratory Rate 18 Blood P
--- NOTE | 2021-06-24 17:11 | PM.IMPN ---
Progress Note: A&P Assessment and Plan (1) S/P excisional debridement: Code(s): Z98.890 - Other specified postprocedural states Status: Acute (2) Unstageable decubitus ulcer: Qualifiers: Pressure injury location: sacral region Qualified Code(s): L89.150 - Pressure ulcer of sacral region, unstageable Code(s): L89.95 - Pressure ulcer of unspecified site, unstageable Status: Acute (3) Pleural effusion: Code(s): J90 - Pleural effusion, not elsewhere classified Status: Acute (4) Recurrent pleural effusion: Code(s): J90 - Pleural effusion, not elsewhere classified Status: Acute (5) Osteomyelitis of coccyx: Code(s): M86.9 - Osteomyelitis, unspecified Status: Acute (6) IgA nephropathy: Code(s): N02.8 - Recurrent and persistent hematuria with other morphologic changes Status: Acute (7) 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: Code(s): E10.22 - Type 1 diabetes mellitus with diabetic chronic kidney disease; N18.5 - Chronic kidney disease, stage 5 Status: Acute (8) Leukocytosis: Qualifiers: Leukocytosis type: unspecified Qualified Code(s): D72.829 - Elevated white blood cell count, unspecified Code(s): D72.829 - Elevated white blood cell count, unspecified Status: Acute (9) Dependence on renal dialysis: Code(s): Z99.2 - Dependence on renal dialysis Status: Acute (10) Sepsis: Qualifiers: Sepsis type: sepsis due to unspecified organism Sepsis acute organ dysfunction status: with acute organ dysfunction Severe sepsis acute organ dysfunction type: acute renal failure Acute renal failure type: unspecified Severe sepsis shock status: without septic shock Qualified Code(s): A41.9 - Sepsis, unspecified organism; R65.20 - Severe sepsis without septic shock; N17.9 - Acute kidney failure, unspecified Code(s): A41.9 - Sepsis, unspecified organism Status: Acute (11) Hyponatremia: Code(s): E87.1 - Hypo-osmolality and hyponatremia Status: Acute (12) Hyperbilirubinemia: Code(s): E80.6 - Other disorders of bilirubin metabolism Status: Acute (13) UTI (urinary tract infection): Qualifiers: Urinary tract infection type: acute cystitis Hematuria presence: without hematuria Qualified Code(s): N30.00 - Acute cystitis without hematuria Code(s): N39.0 - Urinary tract infection, site not specified Status: Acute (14) Urinary retention: Code(s): R33.9 - Retention of urine, unspecified Status: Acute (15) Scrotal edema: Code(s): N50.89 - Other specified disorders of the male genital organs Status: Acute (16) Anasarca: Code(s): R60.1 - Generalized edema Status: Acute Additional Plan -Continue current management. Follow cultures -will have patient work with physical therapy and occupational therapy -may need to come up with a final plan regarding patient placement Time Spent With Patient Time with patient: 25 - 35 minutes Subjective Date/time seen: 06/24/21 17:11 Interval history: 45-year-old male with past medical history significant for hypertension, hyperlipidemia, heart failure with reduced ejection fraction, ischemic cardiomyopathy, type 2 diabetes and CKD with multiple admissions for heart failure exacerbation and cardiorenal syndrome presented on May 20, 2021 with complaints of altered mentation and heart failure exacerbation. His hospital stay has been prolonged and very complicated by acute on chronic heart failure exacerbation, acute cardiorenal syndrome for which he required dobutamine drip at some point ultimately rendering him dialysis dependent since 06/15/2021. He has also received thoracentesis on 06/16 with removal of 1 L fluid.(results are pending the fluid analysis) He continues to be encephalopathic and has been evaluated by Neurology. A CT head that was performed showed elroy
[2021-06-24 17:24] LABS: Glucose Point of Care 178 mg/dl (65-105)
[2021-06-24 20:20] LABS: Vancomycin Random 12.3 ug/mL (10-20)
[2021-06-24 22:06] LABS: Glucose Point of Care 173 mg/dl (65-105)
[2021-06-24 22:06] LABS: Glucose Point of Care 162 mg/dl (65-105)
[2021-06-25] VITALS (21 sets, daily range): BP systolic 139–146; BP diastolic 52–65; PULSE 61–78; RESP 16–20; TEMP 36.2–36.6; O2SAT 94–99
[2021-06-25] MEDS: ALBUTEROL SULFATE NEB 2.5 MG/0.5 ML INH INHALATION ×4 (01:39→20:20)
[2021-06-25] MEDS: IPRATROPIUM BR 0.02% INH SOLN 0.5 MG/2.5 ML VIAL INHALATION ×4 (01:39→20:20)
[2021-06-25 05:23] LABS: Estimated CRCL calculation 34 ml/min; Estimated Glomerular Filt Rate 29
[2021-06-25] MEDS: HEPARIN SODIUM 5,000 UNITS/ML VIAL 5000 UNITS SUB-Q ×3 (06:16→21:49)
[2021-06-25 08:42] LABS: Glucose Point of Care 143 mg/dl (65-105)
[2021-06-25] MEDS: FUROSEMIDE 80 MG TABLET PO ×2 (09:47→16:09)
[2021-06-25] MEDS: GABAPENTIN 300 MG CAPSULE PO ×3 (09:47→16:09)
[2021-06-25] MEDS: METOPROLOL TARTRATE 50 MG TAB PO ×2 (09:47→21:47)
[2021-06-25] MEDS: MUPIROCIN 2% OINT 22 GM TUBE 1 APPLIC TOPICAL ×2 (09:50→21:48)
[2021-06-25] MEDS: HYDROmorphone HCL INJ (*CRX) 1 MG/ML SYR 0.5 MG IV PUSH ×2 (10:25→16:07)
[2021-06-25] MEDS: PANTOPRAZOLE 40 MG TABLET PO (10:26)
[2021-06-25] MEDS: ASPIRIN 81 MG CHEWABLE TABLET PO (10:26)
[2021-06-25] MEDS: ISOSORBIDE MONONITRATE 60 MG TAB.ER.24H PO (10:26)
[2021-06-25] MEDS: lisinopriL 20 MG TABLET PO (10:26)
[2021-06-25] MEDS: ATORVASTATIN 40 MG TABLET PO (10:26)
[2021-06-25 11:29] LABS: Glucose Point of Care 202 mg/dl (65-105)
[2021-06-25] MEDS: INSULIN ASPART (*BKC) 100 UNITS/ML SUB-Q ×2 (11:55→16:12)
--- NOTE | 2021-06-25 12:08 | PM.PNCARD ---
Progress Note: A&P Assessment and Plan (1) Acute combined systolic and diastolic CHF, NYHA class 1: Code(s): I50.41 - Acute combined systolic (congestive) and diastolic (congestive) heart failure Status: Acute Assessment and Plan: Patient presented with acute on chronic systolic and diastolic heart failure, anasarca, pleural effusions. Had thoracentesis 06/15/2021. Off dobutamine. Lasix 80 mg p.o. b.i.d.. Respiratory status and edema improving with hemodialysis. Continue volume management with hemodialysis. Hemodialysis schedule MWF per Nephrology. Faint crackles on exam. No shortness of breath today. Patient's overall prognosis remains highly guarded. (2) Ischemic cardiomyopathy: Code(s): I25.5 - Ischemic cardiomyopathy Status: Acute Assessment and Plan: EF was 40-45%, now 50-55%, improved with lisinopril, metoprolol. Myocardial Perfusion imaging suggests an o
--- NOTE | 2021-06-25 12:31 | WPDINFPN2 ---
Progress Note: A&P Assessment and Plan (1) Unstageable decubitus ulcer: Qualifiers: Pressure injury location: sacral region Qualified Code(s): L89.150 - Pressure ulcer of sacral region, unstageable Code(s): L89.95 - Pressure ulcer of unspecified site, unstageable Status: Acute Assessment and Plan: Infected decubitus ulcer, no osteomyelitis nor other deep space infection REC PipTazo #5, continue at least another 5 days, longer if persistent leukocytosis. Call if Qs Subjective Date/time seen: 06/25/21 12:31 Objective Data Vital Signs Vital Signs: Vital Signs - 24 hr 06/24/21 12:40 06/24/21 14:00 06/24/21 14:09 Temperature 36.6 C Pulse Rate 75 78 Respiratory Rate 18 Blood Pressure 147/74 H Pulse Oximetry 97 06/24/21 14:13 06/24/21 14:22 06/24/21 16:00 Temperature 37.3 C Pulse Rate 80 82 87 Respiratory Rate 18 18 12 Blood Pressure 136/68 Pulse Oximetry 100 06/24/21 18:00 06/24/21 20:00 06/24/21 20:18 Temperature 36.3 C L Pulse Rate 77 74 75 Respiratory Rate 16 Blood Pressure 142/50 H Pulse Oximetry 99 06/24/21 20:19 06/24/21 21:06 06/24/21 21:07 Temperature Pulse Rate 103 H 71 72 Respiratory Rate 18 Blood Pressure Pulse Oximetry 96 96 06/24/21 21:12 06/25/21 00:00 06/25/21 01:40 Temperature 36.4 C Pulse Rate 72 70 68 Respiratory Rate 18 20 18 Blood Pressure 139/52 L Pulse Oximetry 99 06/25/21 01:49 06/25/21 02:00 06/25/21 03:46 Temperature 36.6 C Pulse Rate 71 71 68 Respiratory Rate 18 20 Blood Pressure 139/56 L Pulse Oximetry 99 06/25/21 04:00 06/25/21 06:00 06/25/21 08:00 Temperature Pulse Rate 63 61 66 Respiratory Rate Blood Pressure Pulse Oximetry 97 95 06/25/21 09:00 06/25/21 09:31 06/25/21 09:34 Temperature 36.6 C Pulse Rate 69 64 64 Respiratory Rate 16 18 18 Blood Pressure 140/65 Pulse Oximetry 96 95 06/25/21 09:42 06/25/21 09:47 06/25/21 10:00 Temperature Pulse Rate 69 75 66 Respiratory Rate 18 Blood Pressure Pulse Oximetry Intake/Output Intake/Output: Intake & Output 06/22/21 06/23/21 06/24/21 06/25/21 23:59 23:59 23:59 23:59 Intake Total 1362 1540 960 770 Output Total 2675 650 3600 450 Balance -1313 890 -2640 320 Meds/Results Medications: Active Medications Generic Name Dose Route Start Last Admin Trade Name Freq PRN Reason Stop Dose Admin Acetaminophen 500 mg 05/30/21 21:16 06/22/21 18:27 Acetaminophen 500 Mg Tablet PO 500 mg Q6H PRN Administration Mild Pain (1-3) or Fever Albuterol 2.5 mg 06/04/21 14:00 06/25/21 09:31 Albuterol Sulfate Neb 2.5 Mg/0.5 Ml Inh INHALATION 2.5 mg Q6HRT GEE Administration Aspirin 81 mg 06/01/21 08:00 06/25/21 10:26 Aspirin 81 Mg Chewable Tablet PO 81 mg DAILY@0800 GEE Administration Atorvastatin Calcium 40 mg 05/22/21 09:00 06/25/21 10:26 Atorvastatin 40 Mg Tablet PO 07/21/21 08:59 40 mg DAILY GEE Administration Calcium Carbonate 200 mg 06/13/21 11:09 Calcium Carbonate (Tums) 500 Mg (200 Mg Elemental) PO Q6H PRN Indigestion, nausea Epoetin Brayan-epbx 20,000 units 06/15/21 10:32 06/24/21 11:35 Epoetin Brayan-Epbx 20,000 Units/Ml Vial IV PUSH 20,000 units MOWEFR GEE Administration Furosemide 80 mg 06/18/21 17:00 06/25/21 09:47 Furosemide 80 Mg Tablet PO 80 mg BID GEE Administration Gabapentin 300 mg 05/22/21 13:00 06/25/21 09:47 Gabapentin 300 Mg Capsule PO 07/06/21 12:59 300 mg TID GEE Administration Heparin Sodium (Porcine) 5,000 units 06/23/21 22:00 06/25/21 06:16 Heparin Sodium 5,000 Units/Ml Vial SUB-Q 5,000 units Q8HR GEE Administration Heparin Sodium (Porcine) 5,000 units 06/01/21 09:00 06/13/21 23:13 Heparin Sodium 5,000 Units/Ml Vial SUB-Q Not Given Q12HR [facility] Hydralazine HCl 10 mg 06/07/21 12:16 Hydralazine Hcl 20 Mg/Ml Vial IV PUSH Q8H PRN Blood Pre
--- NOTE | 2021-06-25 13:38 | PM.PNNEP ---
Progress Note: A&P Assessment and Plan (1) GLENN (acute kidney injury): Code(s): N17.9 - Acute kidney failure, unspecified Status: Acute Assessment and Plan: hemodialysis was done yesterday. 2L were removed. Will do another treatment tomorrow (2) Stage 3b chronic kidney disease: Onset Date: Unknown Code(s): N18.32 - Chronic kidney disease, stage 3b Status: Chronic Assessment and Plan: I believe he has approached end-stage renal disease. I asked care management to set him up for outpatient dialysis (3) Hallucinations: Code(s): R44.3 - Hallucinations, unspecified Status: Acute Assessment and Plan: Improved He pulled all his lines out yesterday. (4) Acute combined systolic and diastolic CHF, NYHA class 1: Code(s): I50.41 - Acute combined systolic (congestive) and diastolic (congestive) heart failure Status: Acute Assessment and Plan: well known issues with several recent hospitalizations for this problems Repeat echo shows EF of 50% now. He also has very thick LV wall. (5) Anasarca: Code(s): R60.1 - Generalized edema Status: Acute Assessment and Plan: Reason (6) Hypertension: Qualifiers: Hypertension type: unspecified Qualified Code(s): I10 - Essential (primary) hypertension Code(s): I10 - Essential (primary) hypertension Status: Acute Assessment and Plan: blood pressure is better, 120-140. on metoprolol and lisinopril. Try to remove more fluid on dialysis tomorrow (7) Diabetes: Code(s): E11.9 - Type 2 diabetes mellitus without complications Status: Chronic Assessment and Plan: follow Accu-Cheks on sliding-scale insulin (8) EPO-resistant anemia: Code(s): D63.1 - Anemia in chronic kidney disease Status: Acute Assessment and Plan: Hemoglobin was 9.2 today Check another tomorrow (9) Leukocytosis: Qualifiers: Leukocytosis type: unspecified Qualified Code(s): D72.829 - Elevated white blood cell count, unspecified Code(s): D72.829 - Elevated white blood cell count, unspecified Status: Acute Assessment and Plan: patient's white count is elevated but is coming down.. Blood cultures are negative so far. he is on vancomycin plus Zosyn. He had a thoracentesis. Chemistries are pending. Two hundred four nucleated cells. Cultures pending surgery did a debridement. Subjective Date/time seen: 06/25/21 13:38 Interval history: Gustavo is an unfortunate 45-year-old male who has acute kidney injury on top of chronic kidney disease. Patient is comfortable lying in bed. In better spirits now. Eating well. He pulled out his IVs last night. Another was placed today. He needs these for antibiotics Exam Narrative: General: WDWN male in NAD . He looks more dyspneic. Heart: normal S1 and S2; no rub Lungs: Clear anteriorly. Decreased breath sounds at the bases Abdomen: soft, nontender, nondistended, positive bowel sounds Extremities: 1+ edema and no cyanosis Skin: No rash except for chronic venous stasis changes on his legs. Objective Data Vital Signs Vital Signs: Vital Signs - 24 hr 06/24/21 14:00 06/24/21 14:09 06/24/21 14:13 Temperature Pulse Rate 78 80 Respiratory Rate 18 Blood Pressure Pulse Oximetry 97 06/24/21 14:22 06/24/21 16:00 06/24/21 18:00 Temperature 37.3 C Pulse Rate 82 87 77 Respiratory Rate 18 12 Blood Pressure 136/68 Pulse Oximetry 100 06/24/21 20:00 06/24/21 20:18 06/24/21 20:19 Temperature 36.3 C L Pulse Rate 74 75 103 H Respiratory Rate 16 Blood Pressure 142/50 H Pulse Oximetry 99 96 06/24/21 21:06 06/24/21 21:07 06/24/21 21:12 Temperature Pulse Rate 71 72 72 Respiratory Rate 18 18 Blood Pressure Pulse Oximetry 96 06/25/21 00:00 06/25/21 01:40 06/25/21 01:49
--- NOTE | 2021-06-25 14:43 | CONS_ITS ---
DATE OF CONSULTATION: 06/25/2021 REASON FOR CONSULTATION: Sacral decubitus ulcer. HISTORY OF PRESENT ILLNESS: 45-year-old male who can provide limited history due to language barrier. He was originally admitted on May 21 or May 22 with hallucinations, shortness of breath, cough, and anorexia. Here he has been treated for congestive heart failure. His hospital course over the last month had been complicated by decubitus ulcer for which he underwent debridement on June 22, thus postop day #3. Pleural effusion, renal insufficiency due to his type 1 diabetes mellitus, multiple electrolyte abnormalities, abnormal liver function tests, urinary retention, anasarca. His sacral wound was present after admission. He underwent intervention for the latter, but no necrotizing fasciitis was found and only a small abscess. The fascia was not violated. He offers no complaints currently. ALLERGIES: NONE KNOWN. PRESENT MEDICATIONS: Vancomycin, piperacillin, and clindamycin, all day #5. No immunosuppressants. HABITS: No tobacco, alcohol, or illicit drugs. PAST MEDICAL HISTORY: Previous right BKA, chronic left foot ulcer, colon polyps, peripheral vascular disease, ischemic cardiomyopathy, heart failure, anemia of chronic inflammation. REVIEW OF SYSTEMS: 5-point review otherwise negative. FAMILY HISTORY: Unknown. SOCIAL HISTORY: No family at the bedside. Lives locally with relatives. PHYSICAL EXAMINATION: GENERAL: Middle-aged male who appears older than his actual age. No acute distress. VITAL SIGNS: Afebrile. He was febrile preop up to 38.2. His pulse is 64, respirations 18, 140/65. SKIN: Warm and dry. He has a 4 cm sacral decubitus ulcer which is packed. There is no surrounding erythema, warmth, or tenderness. No purulence, no odor. EENT: Conjunctivae are normal. The oral mucosa is dry, otherwise clear. LUNGS: Clear to auscultation and percussion. CARDIAC: Regular rate and rhythm. He has no murmurs, no gallops. ABDOMEN: Soft, nontender, nondistended. EXTREMITIES: Right BKA, has no evidence of stump infection. He has chronic skin dystrophy over the left foot with amputated toes. No sinus tracts, erythema, warmth, or tenderness. LABORATORY DATA: From the operating room, no microbiology collected. Blood cultures , one set coagulase-negative staph. Another set drawn following 36 hours, both are no growth so far. Multiple other blood cultures previously all no growth. White blood cell count 15.3, down from 18.1, preop 18.9; hemoglobin 9.2; platelets are 299. Chemistries with hyponatremia. BUN 56, creatinine 4.1, glucose 173. Hemoglobin A1c on arrival was 10.9%. Bilirubin 3.6, alkaline phosphatase high. Transaminases normal. Albumin 2.3. RADIOLOGY: Abdomen and pelvic CT performed yesterday, sacral decubitus ulceration, pleural effusions, small amount of ascites and anasarca. ASSESSMENT: 1. Infected sacral decubitus postop day #3 debridement with superficial infection noted. His white blood cell count is currently declining back toward normal. He has no deep space infection such as osteomyelitis or necrotizing fasciitis. 2. Diabetes mellitus, not well controlled as an outpatient. 3. Anasarca. 4. Chronic renal insufficiency. RECOMMENDATIONS: Continue piperacillin. Stop other agents. I will continue the piperacillin for 5 more days, longer if his white blood cell count remains persistently high. Thank you for asking me to see him. Call if questions. NOEMI FALLON M.D. [employer] PROFESSOR D I MT: Jennifer
[2021-06-25] MEDS: oxyCODONE/ACETAMINOPHEN (*CRX) 5-325 MG TABLET 1 TABLET PO ×2 (15:08→22:02)
[2021-06-25 16:10] LABS: Glucose Point of Care 201 mg/dl (65-105)
--- NOTE | 2021-06-25 19:16 | PM.IMPN ---
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: Code(s): E10.22 - Type 1 diabetes mellitus with diabetic chronic kidney disease; N18.5 - Chronic kidney disease, stage 5 Status: Acute (6) Dependence on renal dialysis: Code(s): Z99.2 - Dependence on renal dialysis Status: Acute (7) Sepsis: Qualifiers: Sepsis type: sepsis due to unspecified organism Sepsis acute organ dysfunction status: with acute organ dysfunction Severe sepsis acute organ dysfunction type: acute renal failure Acute renal failure type: unspecified Severe sepsis shock status: without septic shock Qualified Code(s): A41.9 - Sepsis, unspecified organism; R65.20 - Severe sepsis without septic shock; N17.9 - Acute kidney failure, unspecified Code(s): A41.9 - Sepsis, unspecified organism Status: Resolved (8) Leukocytosis: Qualifiers: Leukocytosis type: unspecified Qualified Code(s): D72.829 - Elevated white blood cell count, unspecified Code(s): D72.829 - Elevated white blood cell count, unspecified Status: Acute (9) Anemia: Qualifiers: Anemia type: due to chronic kidney disease Chronic kidney disease stage: stage 5, not on chronic dialysis Qualified Code(s): N18.5 - Chronic kidney disease, stage 5; D63.1 - Anemia in chronic kidney disease Code(s): D64.9 - Anemia, unspecified Status: Acute (10) Combined congestive systolic and diastolic heart failure: Qualifiers: Heart failure chronicity: acute on chronic Qualified Code(s): I50.43 - Acute on chronic combined systolic (congestive) and diastolic (congestive) heart failure Code(s): I50.40 - Unspecified combined systolic (congestive) and diastolic (congestive) heart failure Status: Acute (11) Anemia in chronic illness: Code(s): D63.8 - Anemia in other chronic diseases classified elsewhere Status: Acute (12) Insulin dependent diabetes mellitus: Status: Chronic (13) Hyperbilirubinemia: Code(s): E80.6 - Other disorders of bilirubin metabolism Status: Acute Additional Plan Patient was seen by ID today and is being recommended 5 more days of Zosyn. This is with the condition that patient should have an improving white count, if the white count continues to be elevated that he might require a longer course of Zosyn DISPOSITION: Patient has significant recurrent pleural effusion,Not sure if he would need a permanent solution for his recurrent pleural effusion prior to being transferred to the next level of care PE Patient may benefit being transferred to an LTAC. er. Also required a wound VAC Time Spent With Patient Time with patient: 15 - 25 minutes Subjective Date/time seen: 06/25/21 19:16 Interval history: 45-year-old male with past medical history significant for hypertension, hyperlipidemia, heart failure with reduced ejection fraction, ischemic cardiomyopathy, type 2 diabetes and CKD with multiple admissions for heart failure exacerbation and cardiorenal syndrome presented on May 20, 2021 with complaints of altered mentation and heart failure exacerbation. His hospital stay has been prolonged and very complicated by acute on chronic heart failure exacerbation, acute cardiorenal syndrome for which he required dobutamine drip at some point ultimately
[2021-06-25 20:39] LABS: Glucose Point of Care 186 mg/dl (65-105)
[2021-06-26] VITALS (23 sets, daily range): BP systolic 134–167; BP diastolic 59–77; PULSE 54–83; RESP 18–22; TEMP 36.4–37; O2SAT 87–99
[2021-06-26] MEDS: ALBUTEROL SULFATE NEB 2.5 MG/0.5 ML INH INHALATION ×3 (01:55→19:52)
[2021-06-26] MEDS: IPRATROPIUM BR 0.02% INH SOLN 0.5 MG/2.5 ML VIAL INHALATION ×3 (01:55→19:52)
[2021-06-26] MEDS: HEPARIN SODIUM 5,000 UNITS/ML VIAL 5000 UNITS SUB-Q ×2 (06:08→15:22)
[2021-06-26 06:37] LABS: Basophils Absolute Auto 0.1 K/mm3 (0.0-0.1); Basophils Percent Auto 0.7 % (0.2-1.2); Eosinophils Absolute Auto 0.6 K/mm3 (0-0.3); Eosinophils Percent Auto 5.5 % (0-4.4); Hemoglobin 10.1 g/dL (14.0-18.0); Immature Granulocyte Absolute 0.09 K/mm3 (0.00-0.031); Immature Granulocyte Percent A 0.9 % (0-0.5); Lymphocytes Absolute Auto 0.93 K/mm3 (0.9-3.2); Lymphocytes Percent Auto 8.9 % (18.3-44.2); Mean Corpuscular HGB Conc 29.7 g/dl (32-36); Mean Corpuscular Volume 90.9 fl (80-100); Monocytes Percent Auto 9.6 % (2.6-8.5); Neutrophils Absolute Auto 7.8 K/mm3 (1.3-6.7); Neutrophils Percent Auto 74.4 % (45.5-73.1); Platelet Count Result 387 k/mm3 (150-375); Red Blood Count 3.74 M/mm3 (4.6-6.20); Red Cell Distribution Width 17.2 % (11.5-14.5); White Blood Count 10.5 K/mm3 (4.5-10.0)
[2021-06-26 07:12] LABS: Platelet Estimate Adequate (Adequate)
[2021-06-26 07:16] LABS: Anisocytosis 1+ (NORMAL); Hypochromasia 1+ (NORMAL); Ovalocytes 1+ (NORMAL); Target Cells 1+ (NORMAL)
[2021-06-26] MEDS: GABAPENTIN 300 MG CAPSULE PO ×3 (08:42→16:52)
[2021-06-26] MEDS: ISOSORBIDE MONONITRATE 60 MG TAB.ER.24H PO (08:43)
[2021-06-26] MEDS: ATORVASTATIN 40 MG TABLET PO (08:43)
[2021-06-26] MEDS: ASPIRIN 81 MG CHEWABLE TABLET PO (08:43)
[2021-06-26] MEDS: PANTOPRAZOLE 40 MG TABLET PO (08:43)
[2021-06-26] MEDS: METOPROLOL TARTRATE 50 MG TAB PO ×2 (08:43→20:58)
[2021-06-26] MEDS: MUPIROCIN 2% OINT 22 GM TUBE 1 APPLIC TOPICAL ×2 (08:43→20:56)
[2021-06-26] MEDS: lisinopriL 20 MG TABLET PO (08:43)
[2021-06-26] MEDS: FUROSEMIDE 80 MG TABLET PO ×2 (08:43→16:52)
[2021-06-26 08:56] LABS: Glucose Point of Care 162 mg/dl (65-105)
[2021-06-26 09:19] LABS: Alanine Aminotransferase 21 U/L (4-50); Albumin Level 2.2 g/dL (3.5-5.1); Alkaline Phosphatase 429 U/L (38-126); Anion Gap 7 mmol/L (8-16); Aspartate Amino Transferase 28 U/L (17-59); Bilirubin,Total 1.6 mg/dL (0.2-1.3); Blood Urea Nitrogen 37 mg/dL (9-20); CRP 5.8 mg/dL (<1.0); Calcium 7.9 mg/dL (8.4-10.2); Carbon Dioxide 29 mmol/L (22-30); Chloride 98 mmol/L (98-107); Estimated CRCL calculation 28 ml/min; Estimated Glomerular Filt Rate 27; Glucose 162 mg/dL (65-110); Phosphorus 4.2 mg/dL (2.5-4.5); Sodium 134 mmol/L (137-145)
[2021-06-26] MEDS: EPOETIN ALFA-EPBX 20,000 UNITS/ML VIAL 20000 UNITS IV PUSH (10:56)
--- NOTE | 2021-06-26 12:08 | PCDIET ---
Nutrition Follow-Up Complete: Nutrition Diagnosis: Inadequate oral intake related to altered mental status as evidenced by need for tube feedings. Nutrition Goal: Patient to meet estimated nutritional needs. Goal in progress. Patient consuming 75-100% of meals on renal dialysis diet with Nepro BID. Recommend continuing supplements to promote wound healing. Last recorded weight is 68.8 kg which is down from last review. -I/O. Patient had 2L UF on 06/24/21 with plan for dialysis again today. Bowel Motility: Last documented BM on 06/24/21 x 2. Labs Reviewed: WBC (10.5), RBC (3.74), Hgb (10.1), Hct (34.0), Glu (162), BUN (37), Cr (2.6), Na (134), Alb (2.2), Lucille Ca (9.34) Meds Noted: Zosyn, Seroquel, Albuterol, Lipitor, Retacrit, Lasix, Protonix, Atrovent, Imdur, Lisinopril, Lopressor Additional Notes: Sacral stage IV. Multiple LE skin issues documented. Will continue to monitor with same goal. Nutrition Monitoring and Evaluation: Follow up in 5 days.
[2021-06-26 13:12] LABS: Albumin Pleural Fluid 0.7 g/dL
--- NOTE | 2021-06-26 13:33 | PM.PNCARD ---
Progress Note: A&P Assessment and Plan (1) Acute combined systolic and diastolic CHF, NYHA class 1: Code(s): I50.41 - Acute combined systolic (congestive) and diastolic (congestive) heart failure <DAVONTE Scott - Last Filed: 06/26/21 13:53> Status: Acute <DAVONTE Scott - Last Filed: 06/26/21 13:53> Assessment and Plan: Patient presented with acute on chronic systolic and diastolic heart failure, anasarca, pleural effusions. Had thoracentesis 06/15/2021. Off dobutamine. Lasix 80 mg p.o. b.i.d.. Respiratory status and edema improving with hemodialysis. Continue volume management with hemodialysis. Hemodialysis schedule MWF per Nephrology. Faint crackles on exam. No shortness of breath today. Patient's overall prognosis remains highly guarded. <DAVONTE Scott - Last Filed: 06/26/21 13:53> (2) Ischemic cardiomyopathy: Code(s): I25.5
[2021-06-26 14:03] LABS: Glucose Point of Care 109 mg/dl (65-105)
[2021-06-26 14:07] LABS: Glucose Point of Care 122 mg/dl (65-105)
--- NOTE | 2021-06-26 15:54 | PC.NURSE ---
This patient, Gustavo Chacko, was transferred to [facility] on 06/26/21 at 1554. Personal belongings sent with patient. Report given to SILVERIO Traore. Appropriate documentation sent with patient.
--- NOTE | 2021-06-26 16:00 | PC.NURSE ---
This patient, Gustavo Chacko, was received from IMU on 06/26/21 at 1706. Report received from SILVERIO Araiza. Patient/family oriented to unit policies and routines
[2021-06-26 16:38] LABS: Glucose Point of Care 157 mg/dl (65-105)
--- NOTE | 2021-06-26 17:17 | PM.PNNEP ---
Progress Note: A&P Assessment and Plan (1) GLENN (acute kidney injury): Code(s): N17.9 - Acute kidney failure, unspecified Status: Acute Assessment and Plan: hemodialysis underway trying to get fluid off as tolerated. Will do another treatment tomorrow (2) Stage 3b chronic kidney disease: Onset Date: Unknown Code(s): N18.32 - Chronic kidney disease, stage 3b Status: Chronic Assessment and Plan: I believe he has approached end-stage renal disease. I asked care management to set him up for outpatient dialysis (3) Hallucinations: Code(s): R44.3 - Hallucinations, unspecified Status: Acute Assessment and Plan: Improved intermittently confused. (4) Acute combined systolic and diastolic CHF, NYHA class 1: Code(s): I50.41 - Acute combined systolic (congestive) and diastolic (congestive) heart failure Status: Acute Assessment and Plan: well known issues with several recent hospitalizations for this problems Repeat echo shows EF of 50% now. He also has very thick LV wall. (5) Anasarca: Code(s): R60.1 - Generalized edema Status: Acute Assessment and Plan: imnproved. (6) Hypertension: Qualifiers: Hypertension type: unspecified Qualified Code(s): I10 - Essential (primary) hypertension Code(s): I10 - Essential (primary) hypertension Status: Acute Assessment and Plan: blood pressure is better, 120-140. on metoprolol and lisinopril. Try to remove more fluid on dialysis tomorrow (7) Diabetes: Code(s): E11.9 - Type 2 diabetes mellitus without complications Status: Chronic Assessment and Plan: follow Accu-Cheks on sliding-scale insulin (8) EPO-resistant anemia: Code(s): D63.1 - Anemia in chronic kidney disease Status: Acute Assessment and Plan: Hemoglobin was 10.1 today Check another tomorrow (9) Leukocytosis: Qualifiers: Leukocytosis type: unspecified Qualified Code(s): D72.829 - Elevated white blood cell count, unspecified Code(s): D72.829 - Elevated white blood cell count, unspecified Status: Acute Assessment and Plan: patient's white count is elevated but is coming down.. Blood cultures are negative so far. he is on vancomycin plus Zosyn. He had a thoracentesis. Cultures pending surgery did a debridement. Subjective Date/time seen: 06/26/21 17:17 Interval history: Gustavo is an unfortunate 45-year-old male who has acute kidney injury on top of chronic kidney disease. Pt is on HD agustín it well. seen at 11am Eating well. a bit confused. Exam Narrative: General: WDWN male in NAD . He looks more dyspneic. Heart: normal S1 and S2; no rub or gallop Lungs: Clear anteriorly. Decreased breath sounds at the bases Abdomen: soft, nontender, nondistended, positive bowel sounds Extremities: 1+ edema Skin: No rash except for chronic venous stasis changes on his legs. Objective Data Vital Signs Vital Signs: Vital Signs - 24 hr 06/25/21 20:15 06/25/21 20:24 06/25/21 21:47 Temperature Pulse Rate 71 66 78 Respiratory Rate 18 18 Blood Pressure Pulse Oximetry 96 96 06/26/21 00:00 06/26/21 02:00 06/26/21 02:07 Temperature 36.5 C Pulse Rate 66 70 66 Respiratory Rate 19 18 18 Blood Pressure 134/62 Pulse Oximetry 96 06/26/21 08:30 06/26/21 08:43 06/26/21 09:03 Temperature 36.8 C Pulse Rate 64 71 Respiratory Rate 22 H Blood Pressure 147/59 H Pulse Oximetry 95 96 06/26/21 09:41 06/26/21 09:50 06/26/21 10:00 Temperature 36.6 C Pulse Rate 70 68 64 Respiratory Rate 20 Blood Pressure 152/75 H 159/77 H 158/74 H Pulse Oximetry 06/26/21 10:15 06/26/21 10:30 06/26/21 11:00 Temperature Pulse Rate 60 59 L 61 Respiratory Rate Blood Pressure 154/72 H 146/68 H 149/70 H Pulse Oximetry 06/26/21 11:15
--- NOTE | 2021-06-26 20:19 | PM.IMPN ---
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: Code(s): E10.22 - Type 1 diabetes mellitus with diabetic chronic kidney disease; N18.5 - Chronic kidney disease, stage 5 Status: Acute (6) Dependence on renal dialysis: Code(s): Z99.2 - Dependence on renal dialysis Status: Acute (7) Sepsis: Qualifiers: Acute renal failure type: unspecified Sepsis acute organ dysfunction status: with acute organ dysfunction Sepsis type: sepsis due to unspecified organism Severe sepsis acute organ dysfunction type: acute renal failure Severe sepsis shock status: without septic shock Qualified Code(s): A41.9 - Sepsis, unspecified organism; R65.20 - Severe sepsis without septic shock; N17.9 - Acute kidney failure, unspecified Code(s): A41.9 - Sepsis, unspecified organism Status: Resolved (8) Leukocytosis: Qualifiers: Leukocytosis type: unspecified Qualified Code(s): D72.829 - Elevated white blood cell count, unspecified Code(s): D72.829 - Elevated white blood cell count, unspecified Status: Acute (9) Anemia: Qualifiers: Anemia type: due to chronic kidney disease Chronic kidney disease stage: stage 5, not on chronic dialysis Qualified Code(s): N18.5 - Chronic kidney disease, stage 5; D63.1 - Anemia in chronic kidney disease Code(s): D64.9 - Anemia, unspecified Status: Acute (10) Combined congestive systolic and diastolic heart failure: Qualifiers: Heart failure chronicity: acute on chronic Qualified Code(s): I50.43 - Acute on chronic combined systolic (congestive) and diastolic (congestive) heart failure Code(s): I50.40 - Unspecified combined systolic (congestive) and diastolic (congestive) heart failure Status: Acute Assessment and Plan: The patient has acute on chronic systolic and diastolic heart failure with anasarca and pleural effusions. Patient renal function has deteriorated, has been started on hemodialysis. Appreciate cardiology note. Might need a repeat echocardiogram as patient is last 1 was performed in January. Defer to cardiology Continue to monitor accurate intake and output (11) Anemia in chronic illness: Code(s): D63.8 - Anemia in other chronic diseases classified elsewhere Status: Acute (12) Insulin dependent diabetes mellitus: Status: Chronic (13) Hyperbilirubinemia: Code(s): E80.6 - Other disorders of bilirubin metabolism Status: Acute Additional Plan Patient on zosyn. This is with the condition that patient should have an improving white count, if the white count continues to be elevated that he might require a longer course of Zosyn Subjective Date/time seen: 06/26/21 20:19 S: Patient is examined during hemodialysis; stable run without issues. There were no reported complaints. Review of Systems Review of Systems: All systems reviewed & are unremarkable except as noted in HPI and below ROS unobtainable: Yes unobtainable due to mental status Constitutional: Constitutional: Reports no additional constitutional complaints, Denies fever(s), Denies malaise and Reports poor appetite Eyes: Eyes: Denies change in vision and Reports loss of vision ENT: Reports system reviewed and no additional complaints, except as documented, Reports
[2021-06-26 21:16] LABS: Amylase, Pleural Fluid 16 U/L
[2021-06-26 21:53] LABS: Glucose Point of Care 137 mg/dl (65-105)
[2021-06-26] MEDS: HYDROmorphone HCL INJ (*CRX) 1 MG/ML SYR 0.5 MG IV PUSH (23:50)
[2021-06-27] VITALS (14 sets, daily range): BP systolic 137–156; BP diastolic 58–69; PULSE 62–87; RESP 18–24; TEMP 36.2–36.7; O2SAT 91–100
[2021-06-27] MEDS: oxyCODONE/ACETAMINOPHEN (*CRX) 5-325 MG TABLET 1 TABLET PO (05:22)
[2021-06-27] MEDS: HEPARIN SODIUM 5,000 UNITS/ML VIAL 5000 UNITS SUB-Q ×3 (05:24→20:57)
[2021-06-27] MEDS: IPRATROPIUM BR 0.02% INH SOLN 0.5 MG/2.5 ML VIAL INHALATION ×3 (08:31→20:16)
[2021-06-27] MEDS: ALBUTEROL SULFATE NEB 2.5 MG/0.5 ML INH INHALATION ×3 (08:31→20:16)
[2021-06-27 08:37] LABS: Glucose Point of Care 125 mg/dl (65-105)
[2021-06-27] MEDS: GABAPENTIN 300 MG CAPSULE PO ×3 (09:26→18:12)
[2021-06-27] MEDS: ATORVASTATIN 40 MG TABLET PO (09:26)
[2021-06-27] MEDS: FUROSEMIDE 80 MG TABLET PO (09:26)
[2021-06-27] MEDS: lisinopriL 20 MG TABLET PO (09:26)
[2021-06-27] MEDS: METOPROLOL TARTRATE 50 MG TAB PO ×2 (09:26→20:56)
[2021-06-27] MEDS: ASPIRIN 81 MG CHEWABLE TABLET PO (09:26)
[2021-06-27] MEDS: ISOSORBIDE MONONITRATE 60 MG TAB.ER.24H PO (09:27)
[2021-06-27] MEDS: PANTOPRAZOLE 40 MG TABLET PO (09:27)
[2021-06-27] MEDS: MUPIROCIN 2% OINT 22 GM TUBE 1 APPLIC TOPICAL ×2 (09:27→20:56)
--- NOTE | 2021-06-27 10:59 | PM.PNNEP ---
Progress Note: A&P Assessment and Plan (1) GLENN (acute kidney injury): Code(s): N17.9 - Acute kidney failure, unspecified Status: Acute Assessment and Plan: hemodialysis tuesday trying to get fluid off as tolerated. Will do another treatment tomorrow (2) Stage 3b chronic kidney disease: Onset Date: Unknown Code(s): N18.32 - Chronic kidney disease, stage 3b Status: Chronic Assessment and Plan: I believe he has approached end-stage renal disease. I asked care management to set him up for outpatient dialysis (3) Hallucinations: Code(s): R44.3 - Hallucinations, unspecified Status: Acute Assessment and Plan: Improved intermittently confused. (4) Acute combined systolic and diastolic CHF, NYHA class 1: Code(s): I50.41 - Acute combined systolic (congestive) and diastolic (congestive) heart failure Status: Acute Assessment and Plan: well known issues with several recent hospitalizations for this problems Repeat echo shows EF of 50% now. He also has very thick LV wall. (5) Anasarca: Code(s): R60.1 - Generalized edema Status: Acute Assessment and Plan: imnproved. (6) Hypertension: Qualifiers: Hypertension type: unspecified Qualified Code(s): I10 - Essential (primary) hypertension Code(s): I10 - Essential (primary) hypertension Status: Acute Assessment and Plan: blood pressure is better, 120-140. on metoprolol and lisinopril. (7) Diabetes: Code(s): E11.9 - Type 2 diabetes mellitus without complications Status: Chronic Assessment and Plan: follow Accu-Cheks on sliding-scale insulin (8) EPO-resistant anemia: Code(s): D63.1 - Anemia in chronic kidney disease Status: Acute Assessment and Plan: Hemoglobin was 10.1 today Check another tuesday (9) Leukocytosis: Qualifiers: Leukocytosis type: unspecified Qualified Code(s): D72.829 - Elevated white blood cell count, unspecified Code(s): D72.829 - Elevated white blood cell count, unspecified Status: Acute Assessment and Plan: patient's white count is elevated but is coming down.. Blood cultures are negative so far. he is on vancomycin plus Zosyn. He had a thoracentesis. Cultures negative surgery did a debridement. he seems better overall since then. Subjective Date/time seen: 06/27/21 10:59 Interval history: Gustavo is an unfortunate 45-year-old male who has acute kidney injury on top of chronic kidney disease. comfortable Exam Narrative: General: WDWN male in NAD . He looks more dyspneic. Heart: normal S1 and S2; no rub or gallop Lungs: Clear anteriorly. Decreased breath sounds at the bases Abdomen: soft, nontender, nondistended, positive bowel sounds Extremities: trace to 1+ edema Skin: No rash except for chronic venous stasis changes on his legs. Objective Data Vital Signs Vital Signs: Vital Signs - 24 hr 06/26/21 11:00 06/26/21 11:15 06/26/21 11:30 Temperature Pulse Rate 61 58 L 58 L Respiratory Rate Blood Pressure 149/70 H 156/73 H 153/73 H Pulse Oximetry 06/26/21 11:45 06/26/21 12:00 06/26/21 13:00 Temperature Pulse Rate 54 L 56 L 61 Respiratory Rate Blood Pressure 157/68 H 150/72 H 147/66 H Pulse Oximetry 06/26/21 13:18 06/26/21 19:45 06/26/21 19:55 Temperature 36.7 C Pulse Rate 62 74 74 Respiratory Rate 20 20 Blood Pressure 152/65 H Pulse Oximetry 87 L 06/26/21 20:07 06/26/21 20:58 06/26/21 22:00 Temperature 36.4 C L Pulse Rate 77 83 83 Respiratory Rate 20 20 Blood Pressure 167/69 H Pulse Oximetry 97 99 06/27/21 02:30 06/27/21 02:38 06/27/21 06:00 Temperature 36.2 C L Pulse Rate 67 68 68 Respiratory Rate 20 20 20 Blood Pressure 156/60 H Pulse Oximetry 98 06/27/21 08:35 06/27/21 08:45 06/27/21 09:26 Temperature Pul
--- NOTE | 2021-06-27 12:07 | PM.IMPN ---
Progress Note: A&P Assessment and Plan (1) Anasarca: Code(s): R60.1 - Generalized edema Status: Acute Assessment and Plan: Currently improving with renal replacement therapy. Continue dialysis as tolerated. Plan will be to start dialysis as an outpatient; however the patient does not have insurance and [place] this [place]. 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: Code(s): E10.22 - Type 1 diabetes mellitus with diabetic chronic kidney disease; N18.5 - Chronic kidney disease, stage 5 Status: Acute (6) Dependence on renal dialysis: Code(s): Z99.2 - Dependence on renal dialysis Status: Acute (7) Sepsis: Qualifiers: Sepsis type: sepsis due to unspecified organism Sepsis acute organ dysfunction status: with acute organ dysfunction Severe sepsis acute organ dysfunction type: acute renal failure Acute renal failure type: unspecified Severe sepsis shock status: without septic shock Qualified Code(s): A41.9 - Sepsis, unspecified organism; R65.20 - Severe sepsis without septic shock; N17.9 - Acute kidney failure, unspecified Code(s): A41.9 - Sepsis, unspecified organism Status: Resolved (8) Leukocytosis: Qualifiers: Leukocytosis type: unspecified Qualified Code(s): D72.829 - Elevated white blood cell count, unspecified Code(s): D72.829 - Elevated white blood cell count, unspecified Status: Acute (9) Anemia: Qualifiers: Anemia type: due to chronic kidney disease Chronic kidney disease stage: stage 5, not on chronic dialysis Qualified Code(s): N18.5 - Chronic kidney disease, stage 5; D63.1 - Anemia in chronic kidney disease Code(s): D64.9 - Anemia, unspecified Status: Acute (10) Combined congestive systolic and diastolic heart failure: Qualifiers: Heart failure chronicity: acute on chronic Qualified Code(s): I50.43 - Acute on chronic combined systolic (congestive) and diastolic (congestive) heart failure Code(s): I50.40 - Unspecified combined systolic (congestive) and diastolic (congestive) heart failure Status: Acute Assessment and Plan: The patient has acute on chronic systolic and diastolic heart failure with anasarca and pleural effusions. Patient renal function has deteriorated, has been started on hemodialysis. Appreciate cardiology note. Might need a repeat echocardiogram as patient is last 1 was performed in January. Defer to cardiology Continue to monitor accurate intake and output (11) Anemia in chronic illness: Code(s): D63.8 - Anemia in other chronic diseases classified elsewhere Status: Acute (12) Insulin dependent diabetes mellitus: Status: Chronic (13) Hyperbilirubinemia: Code(s): E80.6 - Other disorders of bilirubin metabolism Status: Acute Additional Plan Patient on zosyn. This is with the condition that patient should have an improving white count, if the white count continues to be elevated that he might require a longer course of Zosyn . Subjective Date/time seen: 06/27/21 12:07 S: Patient was examined at the bedside. He is not in any distress. Dialysis well tolerated yesterday. Next dialysis planned by Nephrology for Tuesday. Review of Systems Review of Systems: All systems reviewed & are unremarkable except as noted in HPI and below ROS unobtainable: Yes unobtainable due to mental status Cons
--- NOTE | 2021-06-27 13:48 | WPDNEURCNPN ---
Assessment and Plan Additional Plan neurologically unchanged treatment is being continued as such Consult date: 06/27/21 HPI: Gustavo Chacko is a 45 year old male Admitted to the hospital with the ongoing anasarca has been receiving renal replacement therapy along with the continuation of the dialysis course has been complicated by recurrent pleural effusion, facial injury and sepsis addition to the ongoing history of chronic heart failure Review of Systems Review of Systems: All systems reviewed & are unremarkable except as noted in HPI and below PMFSH Past Medical History Medical History Anemia in chronic illness Cardiomyopathy Chronic kidney disease, stage 3b Combined congestive systolic and diastolic heart failure Mildly reduced LV systolic function with an EF of 40 to 45% and grade 2 diastolic dysfunction noted on echocardiogram dated 01/22/2021. Diverticulosis EPO-resistant anemia Hypertension Insulin dependent diabetes mellitus Hemoglobin A1c was 10.9% on 01/23/2021. Complicated by gastric dysmotility, neuropathy, and nephropathy. Ischemic cardiomyopathy Lexiscan stress on 01/26/2021 showed a large area of severe infarct involving the apical lateral and mid to basal anterolateral and inferolateral segments of left ventricle on myocardial perfusion imaging with a left ventricular ejection fracture measuring 45%. Leukocytosis Peripheral vascular disease Severe mitral valve regurgitation (01/22/21) Surgical History Surgical History History of colonoscopy with polypectomy (01/27/21) 2 benign polyps removed. History of right below knee amputation Family History Family History Other Unknown family medical history Social History Social History Social History: The patient lives in [place] with his sister, [id number], nieces, and nephews. Nonsmoker. No alcohol or illicit substance abuse. He designates his sister, Birdie Stroud, as his surrogate decision maker and he wishes to be a full code. He has a son in his 20s. Smoking status: Unknown if ever smoked Spiritual care concerns: No Meds Home Medications and Allergies Home Medications Medication Instructions Recorded Confirmed Type bumetanide 1 mg PO BID #60 tablet 02/25/21 05/21/21 Rx isosorbide mononitrate 60 mg PO DAILY PRN #30 tablet 02/25/21 05/21/21 Rx lisinopril 20 mg PO QAM #30 tablet 02/25/21 05/21/21 Rx metoprolol tartrate 50 mg PO BID #60 tablet 02/25/21 05/21/21 Rx amlodipine 10 mg PO DAILY 05/21/21 05/21/21 History glipizide 10 mg PO DAILY 05/21/21 05/21/21 History Allergies Allergy/AdvReac Type Severity Reaction Status Date / Time No Known Allergies Allergy Verified 05/20/21 19:58 Vital Signs Vital Signs - 24 hr 06/26/21 19:45 06/26/21 19:55 06/26/21 20:07 Temperature Pulse Rate 74 74 77 Respiratory Rate 20 20 Blood Pressure Pulse Oximetry 87 L 97 06/26/21 20:58 06/26/21 22:00 06/27/21 02:30 Temperature 36.4 C L Pulse Rate 83 83 67 Respiratory Rate 20 20 Blood Pressure 167/69 H Pulse Oximetry 99 06/27/21 02:38 06/27/21 06:00 06/27/21 08:35 Temperature 36.2 C L Pulse Rate 68 68 64 Respiratory Rate 20 20 20 Blood Pressure 156/60 H Pulse Oximetry 98 06/27/21 08:45 06/27/21 09:26 Temperature Pulse Rate 68 66 Respiratory Rate 22 H Blood Pressure Pulse Oximetry Exam Narrative: continues to awake alert in no obvious distress but chronically ill head normocephalic with no cranial bruit heart regular no murmur lungs clear abdomen is soft neurologically remains weak with inability to walk but oriented pupils round regular feels the vision full extraocular muscle full face symmetrical tongue midline and motor examination is mention remained weak with inability to a
[2021-06-27 13:53] LABS: Glucose Point of Care 119 mg/dl (65-105)
[2021-06-27 16:58] LABS: Glucose Point of Care 135 mg/dl (65-105)
[2021-06-27 21:47] LABS: Glucose Point of Care 125 mg/dl (65-105)
[2021-06-28] VITALS (11 sets, daily range): BP systolic 122–161; BP diastolic 57–67; PULSE 60–84; RESP 16–20; TEMP 36.2–36.5; O2SAT 92–98
--- NOTE | 2021-06-28 02:06 | PC.NURSE ---
Daylight Savings Time For Daylight Savings Time Ending in the Fall - Clocks are moved back. For Daylight Savings Time Beginning in the Spring - Clocks are moved ahead. For [facility], the time of change occurs at 0200 hrs. Time is taken from the server systems administrator. This entry on the patient's chart recognizes the change in time reflected during documentation. Example: 2 entries for vital signs may be charted for 0200 hrs.
[2021-06-28] MEDS: ALBUTEROL SULFATE NEB 2.5 MG/0.5 ML INH INHALATION ×5 (02:10→20:29)
[2021-06-28] MEDS: IPRATROPIUM BR 0.02% INH SOLN 0.5 MG/2.5 ML VIAL INHALATION ×5 (02:10→20:28)
[2021-06-28] MEDS: oxyCODONE/ACETAMINOPHEN (*CRX) 5-325 MG TABLET 1 TABLET PO ×2 (02:31→09:42)
[2021-06-28] MEDS: HEPARIN SODIUM 5,000 UNITS/ML VIAL 5000 UNITS SUB-Q ×3 (06:25→21:31)
[2021-06-28 08:26] LABS: Glucose Point of Care 107 mg/dl (65-105)
[2021-06-28] MEDS: PANTOPRAZOLE 40 MG TABLET PO (09:41)
[2021-06-28] MEDS: lisinopriL 20 MG TABLET PO (09:41)
[2021-06-28] MEDS: ATORVASTATIN 40 MG TABLET PO (09:41)
[2021-06-28] MEDS: ISOSORBIDE MONONITRATE 60 MG TAB.ER.24H PO (09:41)
[2021-06-28] MEDS: METOPROLOL TARTRATE 50 MG TAB PO ×2 (09:41→21:31)
[2021-06-28] MEDS: GABAPENTIN 300 MG CAPSULE PO ×3 (09:41→17:39)
[2021-06-28] MEDS: MUPIROCIN 2% OINT 22 GM TUBE 1 APPLIC TOPICAL ×2 (09:42→21:31)
[2021-06-28] MEDS: ASPIRIN 81 MG CHEWABLE TABLET PO (09:42)
--- NOTE | 2021-06-28 10:22 | PM.PNNEP ---
Progress Note: A&P Assessment and Plan (1) GLENN (acute kidney injury): Code(s): N17.9 - Acute kidney failure, unspecified Status: Acute Assessment and Plan: hemodialysis Tomorrow will try to get more fluid off tomorrow. He has pleural effusions. Will try to keep these from reformed ink by removing fluid. Last chest x-ray was improved. (2) Stage 3b chronic kidney disease: Onset Date: Unknown Code(s): N18.32 - Chronic kidney disease, stage 3b Status: Chronic Assessment and Plan: I believe he has approached end-stage renal disease. I asked care management to set him up for outpatient dialysis (3) Hallucinations: Code(s): R44.3 - Hallucinations, unspecified Status: Acute Assessment and Plan: Improved (4) Acute combined systolic and diastolic CHF, NYHA class 1: Code(s): I50.41 - Acute combined systolic (congestive) and diastolic (congestive) heart failure Status: Acute Assessment and Plan: well known issues with several recent hospitalizations for this problems Repeat echo shows EF of 50% now. He also has very thick LV wall. (5) Anasarca: Code(s): R60.1 - Generalized edema Status: Acute Assessment and Plan: imnproved. (6) Hypertension: Qualifiers: Hypertension type: unspecified Qualified Code(s): I10 - Essential (primary) hypertension Code(s): I10 - Essential (primary) hypertension Status: Acute Assessment and Plan: blood pressure is better, 120-140. on metoprolol and lisinopril. (7) Diabetes: Code(s): E11.9 - Type 2 diabetes mellitus without complications Status: Chronic Assessment and Plan: follow Accu-Cheks on sliding-scale insulin (8) EPO-resistant anemia: Code(s): D63.1 - Anemia in chronic kidney disease Status: Acute Assessment and Plan: Hemoglobin was 10.1 Yesterday. Check another tuesday On EPO with dialysis (9) Leukocytosis: Qualifiers: Leukocytosis type: unspecified Qualified Code(s): D72.829 - Elevated white blood cell count, unspecified Code(s): D72.829 - Elevated white blood cell count, unspecified Status: Acute Assessment and Plan: patient's white count is elevated but is coming down.. Blood cultures are negative so far. he is on Zosyn. He had a thoracentesis. Cultures negative surgery did a debridement. he seems better overall since then. Subjective Date/time seen: 06/28/21 10:22 Interval history: Gustavo is an unfortunate 45-year-old male who has acute kidney injury on top of chronic kidney disease. lying in bed comfortably. In good spirits. Exam Narrative: General: WDWN male in NAD . He looks more dyspneic. Heart: normal S1 and S2; no rub Lungs: Clear anteriorly. Abdomen: soft, nontender, nondistended, positive bowel sounds Extremities: trace to 1+ edema Skin: No rash except for chronic venous stasis changes on his legs. Objective Data Vital Signs Vital Signs: Vital Signs - 24 hr 06/27/21 14:11 06/27/21 14:14 06/27/21 14:25 Temperature 36.3 C L Pulse Rate 63 62 64 Respiratory Rate 22 H 24 H 22 H Blood Pressure 152/69 H Pulse Oximetry 100 06/27/21 20:19 06/27/21 20:20 06/27/21 20:27 Temperature Pulse Rate 65 64 Respiratory Rate 20 20 Blood Pressure Pulse Oximetry 91 06/27/21 20:56 06/27/21 22:00 06/28/21 02:12 Temperature 36.7 C Pulse Rate 80 87 67 Respiratory Rate 18 16 Blood Pressure 137/58 L Pulse Oximetry 96 06/28/21 02:19 06/28/21 06:00 06/28/21 09:05 Temperature 36.2 C L Pulse Rate 65 77 66 Respiratory Rate 18 16 16 Blood Pressure 122/62 Pulse Oximetry 94 92 06/28/21 09:41 Temperature Pulse Rate 66 Respiratory Rate Blood Pressure Pulse Oximetry Intake/Output Intake/Output: Intake & Output 06/25/21 06/26/21 06/27/21 06/28/21 2
[2021-06-28 11:08] LABS: Basophils Absolute Auto 0.1 K/mm3 (0.0-0.1); Basophils Percent Auto 0.7 % (0.2-1.2); Eosinophils Absolute Auto 0.5 K/mm3 (0-0.3); Hematocrit 34.4 % (42.0-52.0); Hemoglobin 10.3 g/dL (14.0-18.0); Immature Granulocyte Absolute 0.09 K/mm3 (0.00-0.031); Lymphocytes Absolute Auto 0.98 K/mm3 (0.9-3.2); Lymphocytes Percent Auto 10.8 % (18.3-44.2); Mean Corpuscular HGB Conc 29.9 g/dl (32-36); Mean Corpuscular Hemoglobin 27.5 pg (26-34); Mean Platelet Volume 10.2 fl (7.4-10.4); Monocytes Absolute Auto 0.8 K/mm3 (0.1-0.6); Monocytes Percent Auto 9.3 % (2.6-8.5); Neutrophils Absolute Auto 6.6 K/mm3 (1.3-6.7); Neutrophils Percent Auto 73.2 % (45.5-73.1); Platelet Count Result 395 k/mm3 (150-375); Red Blood Count 3.74 M/mm3 (4.6-6.20); Red Cell Distribution Width 17.2 % (11.5-14.5)
[2021-06-28 11:19] LABS: Anion Gap 4 mmol/L (8-16); Blood Urea Nitrogen 29 mg/dL (9-20); Calcium 8.1 mg/dL (8.4-10.2); Carbon Dioxide 31 mmol/L (22-30); Chloride 100 mmol/L (98-107); Estimated CRCL calculation 29 ml/min; Estimated Glomerular Filt Rate 28; Glucose 152 mg/dL (65-110); Potassium 3.6 mmol/L (3.4-5.0); Sodium 135 mmol/L (137-145)
[2021-06-28 11:31] LABS: Hypochromasia 1+ (NORMAL); Target Cells 1+ (NORMAL)
[2021-06-28 12:42] LABS: Glucose Point of Care 161 mg/dl (65-105)
[2021-06-28 17:45] LABS: Glucose Point of Care 126 mg/dl (65-105)
--- NOTE | 2021-06-28 17:49 | PM.IMPN ---
Progress Note: A&P Assessment and Plan (1) Anasarca: Code(s): R60.1 - Generalized edema Status: Acute Assessment and Plan: Currently improving with renal replacement therapy. Continue dialysis as scheduled on Tuesday. Plan will be to start dialysis as an outpatient; however the patient does not have insurance and [place] this [place]. Continue PO lasix on nondialysis days. (2) Recurrent pleural effusion: Code(s): J90 - Pleural effusion, not elsewhere classified Status: Acute Assessment and Plan: Improving after diuretic and initiation renal replacement therapy. (3) S/P excisional debridement: Code(s): Z98.890 - Other specified postprocedural states Status: Acute Assessment and Plan: daily wound care. 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 (6) Dependence on renal dialysis: Code(s): Z99.2 - Dependence on renal dialysis Status: Acute Assessment and Plan: continue dialysis as scheduled on Tuesday. construction ironworker evaluation for dialysis center placement (7) Sepsis: Qualifiers: Sepsis type: sepsis due to unspecified organism Sepsis acute organ dysfunction status: with acute organ dysfunction Severe sepsis acute organ dysfunction type: acute renal failure Acute renal failure type: unspecified Severe sepsis shock status: without septic shock Qualified Code(s): A41.9 - Sepsis, unspecified organism; R65.20 - Severe sepsis without septic shock; N17.9 - Acute kidney failure, unspecified Code(s): A41.9 - Sepsis, unspecified organism Status: Resolved (8) Leukocytosis: Qualifiers: Leukocytosis type: unspecified Qualified Code(s): D72.829 - Elevated white blood cell count, unspecified Code(s): D72.829 - Elevated white blood cell count, unspecified Status: Acute (9) Anemia: Qualifiers: Anemia type: due to chronic kidney disease Chronic kidney disease stage: stage 5, not on chronic dialysis Qualified Code(s): N18.5 - Chronic kidney disease, stage 5; D63.1 - Anemia in chronic kidney disease Code(s): D64.9 - Anemia, unspecified Status: Acute (10) Combined congestive systolic and diastolic heart failure: Qualifiers: Heart failure chronicity: acute on chronic Qualified Code(s): I50.43 - Acute on chronic combined systolic (congestive) and diastolic (congestive) heart failure Code(s): I50.40 - Unspecified combined systolic (congestive) and diastolic (congestive) heart failure Status: Acute Assessment and Plan: The patient has acute on chronic systolic and diastolic heart failure with anasarca and pleural effusions. Patient renal function has deteriorated, has been started on hemodialysis. Continue daily p.o. Lasix on nondialysis days. (11) Anemia in chronic illness: Code(s): D63.8 - Anemia in other chronic diseases classified elsewhere Status: Acute (12) Insulin dependent diabetes mellitus: Status: Chronic Assessment and Plan: Fasting blood glucose 152. Accu-Chek in the 126-161 range. Continue close blood sugar monitoring. (13) Hyperbilirubinemia: Code(s): E80.6 - Other disorders of bilirubin metabolism Status: Acute Additional Plan Patient on zosyn. This is with the condition that patient should have an improving white count, if the
[2021-06-28 21:55] LABS: Glucose Point of Care 145 mg/dl (65-105)
[2021-06-29] VITALS (26 sets, daily range): BP systolic 146–167; BP diastolic 58–88; PULSE 62–85; RESP 16–20; TEMP 36.4–37; O2SAT 92–98
--- NOTE | 2021-06-29 04:09 | PCRCNOTE ---
therapist in code and unable to give treatment
[2021-06-29] MEDS: HEPARIN SODIUM 5,000 UNITS/ML VIAL 5000 UNITS SUB-Q ×3 (06:07→20:42)
[2021-06-29 06:08] LABS: Albumin Level 2.6 g/dL (3.5-5.1); Anion Gap 6 mmol/L (8-16); Blood Urea Nitrogen 31 mg/dL (9-20); Calcium 8.2 mg/dL (8.4-10.2); Carbon Dioxide 31 mmol/L (22-30); Chloride 100 mmol/L (98-107); Estimated CRCL calculation 27 ml/min; Estimated Glomerular Filt Rate 25; Glucose 124 mg/dL (65-110); Phosphorus 5.1 mg/dL (2.5-4.5); Potassium 3.7 mmol/L (3.4-5.0); Sodium 137 mmol/L (137-145)
[2021-06-29 06:25] LABS: Glucose Point of Care 107 mg/dl (65-105)
--- NOTE | 2021-06-29 06:45 | PM.IMPN ---
Progress Note: A&P Assessment and Plan (1) Anasarca: Code(s): R60.1 - Generalized edema Status: Acute Assessment and Plan: Currently improving with renal replacement therapy. Continue underwent dialysis as scheduled today. Plan will be to start dialysis as an outpatient; however the patient does not have insurance and is not documented in this country. Continue PO lasix on nondialysis days. (2) Recurrent pleural effusion: Code(s): J90 - Pleural effusion, not elsewhere classified Status: Acute Assessment and Plan: Improving after diuretic and initiation renal replacement therapy. (3) S/P excisional debridement: Code(s): Z98.890 - Other specified postprocedural states Status: Acute Assessment and Plan: daily wound care. 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 (6) Dependence on renal dialysis: Code(s): Z99.2 - Dependence on renal dialysis Status: Acute Assessment and Plan: continue dialysis as scheduled on Tuesday. 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 for dialysis center placement (7) Sepsis: Qualifiers: Acute renal failure type: unspecified Sepsis acute organ dysfunction status: with acute organ dysfunction Sepsis type: sepsis due to unspecified organism Severe sepsis acute organ dysfunction type: acute renal failure Severe sepsis shock status: without septic shock Qualified Code(s): A41.9 - Sepsis, unspecified organism; R65.20 - Severe sepsis without septic shock; N17.9 - Acute kidney failure, unspecified Code(s): A41.9 - Sepsis, unspecified organism Status: Resolved (8) Leukocytosis: Qualifiers: Leukocytosis type: unspecified Qualified Code(s): D72.829 - Elevated white blood cell count, unspecified Code(s): D72.829 - Elevated white blood cell count, unspecified Status: Acute (9) Anemia: Qualifiers: Anemia type: due to chronic kidney disease Chronic kidney disease stage: stage 5, not on chronic dialysis Qualified Code(s): N18.5 - Chronic kidney disease, stage 5; D63.1 - Anemia in chronic kidney disease Code(s): D64.9 - Anemia, unspecified Status: Acute (10) Combined congestive systolic and diastolic heart failure: Qualifiers: Heart failure chronicity: acute on chronic Qualified Code(s): I50.43 - Acute on chronic combined systolic (congestive) and diastolic (congestive) heart failure Code(s): I50.40 - Unspecified combined systolic (congestive) and diastolic (congestive) heart failure Status: Acute Assessment and Plan: The patient has acute on chronic systolic and diastolic heart failure with anasarca and pleural effusions. Patient renal function has deteriorated, has been started on hemodialysis. Continue daily p.o. Lasix on nondialysis days. (11) Anemia in chronic illness: Code(s): D63.8 - Anemia in other chronic diseases classified elsewhere Status: Acute (12) Insulin dependent diabetes mellitus: Status: Chronic Assessment and Plan: Fasting blood glucose 152. Accu-Chek in the 126-161 range. Continue close blood sugar monitoring. (13) Hyperbilirubinemia: Code(s): E80.6 - Other disorders of bilirubin metabolism Status: Acute Additional Plan Patient on zosyn. This is with the condition that patient should have an improving white co
[2021-06-29 08:00] LABS: Glucose Point of Care 133 mg/dl (65-105)
[2021-06-29] MEDS: IPRATROPIUM BR 0.02% INH SOLN 0.5 MG/2.5 ML VIAL INHALATION (08:50)
[2021-06-29] MEDS: ALBUTEROL SULFATE NEB 2.5 MG/0.5 ML INH INHALATION (08:50)
[2021-06-29] MEDS: SODIUM CHLORIDE 0.9% IV 1,000 ML 100 ML IV CONT (09:45)
[2021-06-29] MEDS: MUPIROCIN 2% OINT 22 GM TUBE 1 APPLIC TOPICAL ×2 (09:55→20:43)
[2021-06-29 12:00] LABS: Glucose Point of Care 114 mg/dl (65-105)
[2021-06-29] MEDS: EPOETIN ALFA-EPBX 20,000 UNITS/ML VIAL 20000 UNITS IV PUSH (12:49)
--- NOTE | 2021-06-29 13:03 | P.PNNP_ITS ---
Progress Note: A&P Assessment and Plan (1) GLENN (acute kidney injury): Code(s): N17.9 - Acute kidney failure, unspecified Status: Acute Assessment and Plan: * hemodialysis today * continue HD 3x/week * follow electrolytes, volume status, and clearance * push fluid removal/ultrafiltration as tolerated to acheive euvolemia (2) Stage 3b chronic kidney disease: Onset Date: Unknown Code(s): N18.32 - Chronic kidney disease, stage 3b Status: Chronic Assessment and Plan: * creatinine has been progressively declining in the last few months * this is further complicated by his recurrent hospitalizations for volume overload/anasarca * suspect may be the only intervention at this time to maintain stability in his fluid status, and hence, he is likely dialysis dependent * outpatient dialysis being arranged (3) Hallucinations: Code(s): R44.3 - Hallucinations, unspecified Status: Acute Assessment and Plan: * improved (4) Acute combined systolic and diastolic CHF, NYHA class 1: Code(s): I50.41 - Acute combined systolic (congestive) and diastolic (congestive) heart failure Status: Acute Assessment and Plan: * well known issues with several recent hospitalizations for this problems * see #2 (5) Anasarca: Code(s): R60.1 - Generalized edema Status: Acute Assessment and Plan: * improvement noted with initiation of UMBRELLA TIPPER MACHINE/dialysis * continue fluid removal as tolerated (6) Hypertension: Qualifiers: Hypertension type: unspecified Qualified Code(s): I10 - Essential (primary) hypertension Code(s): I10 - Essential (primary) hypertension Status: Acute Assessment and Plan: * reasonable control at this time * on metoprolol and lisinopril (7) EPO-resistant anemia: Code(s): D63.1 - Anemia in chronic kidney disease Status: Acute Assessment and Plan: * due to progressive decline in renal function and acute illness * continue Epogen with dialysis * follow H/H (8) Diabetes: Code(s): E11.9 - Type 2 diabetes mellitus without complications Status: Chronic Assessment and Plan: * follow Accu-Cheks * on sliding-scale insulin Will continue to follow. Subjective Date/time seen: 06/29/21 13:03 Chart reviewed -- assuming care from Dr. Johnson; tolerating dialysis at the time of my visit (seen on HD at ~ 12:50PM); no new issues or concerns voiced at this time; some improvement in overall status since I last saw him; no events overnight or earlier this AM. Exam Narrative: General: WD/WN male in NAD Heart: normal S1 and S2; no rub Lungs: clear anteriology; decreased at bases Abdomen: soft, nontender, nondistended, positive bowel sounds Extremities: trace to 1+ edema Skin: chronic venous stasis changes on lower extremities Objective Data Vital Signs Vital Signs: Vital Signs Temp Pulse Resp BP Pulse Ox 06/29/21 12:45 73 159/81 H 06/29/21 12:30 66 161/68 H 06/29/21 12:15 67 151/71 H 06/29/21 12:00 72 166/80 H 06/29/21 11:45 64 160/71 H 06/29/21 11:30 72 152/74 H 06/29/21 11:15 75 153/71 H 06/29/21 11:00 79 150/88 H 06/29/21 10:45 76 153/74 H 06/29/21 10:30 84 162/76 H 06/29/21 10:20 36.8
--- NOTE | 2021-06-29 13:03 | PM.PNNEP ---
Progress Note: A&P Assessment and Plan (1) GLENN (acute kidney injury): Code(s): N17.9 - Acute kidney failure, unspecified Status: Acute Assessment and Plan: hemodialysis today continue HD 3x/week follow electrolytes, volume status, and clearance push fluid removal/ultrafiltration as tolerated to acheive euvolemia (2) Stage 3b chronic kidney disease: Onset Date: Unknown Code(s): N18.32 - Chronic kidney disease, stage 3b Status: Chronic Assessment and Plan: creatinine has been progressively declining in the last few months this is further complicated by his recurrent hospitalizations for volume overload/anasarca suspect may be the only intervention at this time to maintain stability in his fluid status, and hence, he is likely dialysis dependent outpatient dialysis being arranged (3) Hallucinations: Code(s): R44.3 - Hallucinations, unspecified Status: Acute Assessment and Plan: improved (4) Acute combined systolic and diastolic CHF, NYHA class 1: Code(s): I50.41 - Acute combined systolic (congestive) and diastolic (congestive) heart failure Status: Acute Assessment and Plan: well known issues with several recent hospitalizations for this problems see #2 (5) Anasarca: Code(s): R60.1 - Generalized edema Status: Acute Assessment and Plan: improvement noted with initiation of BATCH ANALYST/dialysis continue fluid removal as tolerated (6) Hypertension: Qualifiers: Hypertension type: unspecified Qualified Code(s): I10 - Essential (primary) hypertension Code(s): I10 - Essential (primary) hypertension Status: Acute Assessment and Plan: reasonable control at this time on metoprolol and lisinopril (7) EPO-resistant anemia: Code(s): D63.1 - Anemia in chronic kidney disease Status: Acute Assessment and Plan: due to progressive decline in renal function and acute illness continue Epogen with dialysis follow H/H (8) Diabetes: Code(s): E11.9 - Type 2 diabetes mellitus without complications Status: Chronic Assessment and Plan: follow Accu-Cheks on sliding-scale insulin Will continue to follow. Subjective Date/time seen: 06/29/21 13:03 Chart reviewed -- assuming care from Dr. Johnson; tolerating dialysis at the time of my visit (seen on HD at ~ 12:50PM); no new issues or concerns voiced at this time; some improvement in overall status since I last saw him; no events overnight or earlier this AM. Exam Narrative: General: WD/WN male in NAD Heart: normal S1 and S2; no rub Lungs: clear anteriology; decreased at bases Abdomen: soft, nontender, nondistended, positive bowel sounds Extremities: trace to 1+ edema Skin: chronic venous stasis changes on lower extremities Objective Data Vital Signs Vital Signs: Vital Signs Temp Pulse Resp BP Pulse Ox 06/29/21 12:45 73 159/81 H 06/29/21 12:30 66 161/68 H 06/29/21 12:15 67 151/71 H 06/29/21 12:00 72 166/80 H 06/29/21 11:45 64 160/71 H 06/29/21 11:30 72 152/74 H 06/29/21 11:15 75 153/71 H 06/29/21 11:00 79 150/88 H 06/29/21 10:45 76 153/74 H 06/29/21 10:30 84 162/76 H 06/29/21 10:20 36.8 C 85 20 161/74 H 06/29/21 09:21 75 16 92 06/29/21 08:59 80 16 06/29/21 08:50 75 16 06/29/21 06:00 36.4 C 63 18 159/62 H 96 06/28/21 22:00 36.5 C 66 20 161/67 H 98 06/28/21 21:31 84 06/28/21 20:41 84 16 06/28/21 20:31 92 06/28/21 20:30 81 16 06/28/21 15:52 36.3 C L 60 20 138/57 L 93 Intake/Output Intake/Output: Intake & Output 06/27/21 06/28/21 06/28/21 06/29/21 00:59 00:59 23:59 23:59 Intake Total 490 Output Total 350 Balance 140 Meds/Results Medications: Active Medications Generic Name Dose Route Start Last Admin Trade Name Freq
[2021-06-29] MEDS: METOPROLOL TARTRATE 50 MG TAB PO ×2 (14:43→20:41)
[2021-06-29] MEDS: GABAPENTIN 300 MG CAPSULE PO ×2 (14:44→16:04)
[2021-06-29] MEDS: ATORVASTATIN 40 MG TABLET PO (14:44)
[2021-06-29] MEDS: ISOSORBIDE MONONITRATE 60 MG TAB.ER.24H PO (14:44)
[2021-06-29] MEDS: ASPIRIN 81 MG CHEWABLE TABLET PO (14:45)
[2021-06-29] MEDS: lisinopriL 20 MG TABLET PO (14:45)
[2021-06-29] MEDS: PANTOPRAZOLE 40 MG TABLET PO (14:45)
--- NOTE | 2021-06-29 16:12 | WPDNEUROPN ---
Subjective Date/time seen: 06/29/21 16:12 with ongoing diagnosis of chronic renal failure receiving the dialysis treatment in addition to multiple underlying medical diagnoses Review of Systems Review of Systems: All systems reviewed & are unremarkable except as noted in HPI and below Exam Const: General: cooperative, no acute distress, alert, awake, anxious, ill appearing and tired appearing Nutritional Appearance: average body habitus Orientation/consciousness: oriented to person and oriented to place ( Shira the conversation with his anodic treater) Limitations: physical limitations HENMT: Head: normal to inspection Ears: hearing grossly normal bilaterally General nose exam: Normal external nose present Face and sinus: normal facial exam Mouth: Yes Normal oral and palatal mucosa present Eyes: General: appearance normal, both eyes and all related structures Visual Villarreal: normal visual villarreal by confrontation Alignment and Position: alignment normal Periorbital: periorbital findings normal Eyelids: eyelids normal Conjunctivae: conjunctivae normal Sclera: sclerae normal Cornea: corneas normal Pupils: Equal, round and reactive pupils present Neck: Neck: full ROM and no lymphadenopathy Chest: Chest palpation & inspection: normal inspection of the chest Resp: Effort & Inspection: normal respiratory effort Auscultation: clear to auscultation bilaterally Cardio: Rate: regular rate Rhythm: regular rhythm GI: Auscultation: normal bowel sounds Neuro: General: oriented to person and oriented to place Cranial nerves: Yes CN's II-XII intact bilaterally Cognition (Neuro): normal cognition Speech: normal speech Gait exam (Neuro): Unable to assess gait Motor exam (neuro): Abnormal motor strength present Sensory Exam: Sensory deficit (Neuro) Deep tendon reflexes (DTR's): Right triceps reflex intensity grade: 1+, Left triceps reflex intensity grade: 1+, Rt Biceps (C5, C6): 1+, Left biceps reflex intensity grade: 1+, Right brachioradialis reflex intensity grade: 1+, Left brachioradialis reflex intensity grade: 1+, Right patellar reflex intensity grade: 1+, Left patellar reflex intensity grade: 1+, Right ankle reflex intensity grade: 0 and Left ankle reflex intensity grade: 0 Plantar Reflex Responses: downgoing: bilateral Extrem: General: other ( decreased strength with sluggish deep tendon reflexes and downgoing planta) Psych: Affect: Sad affect present Attitude: cooperative Thought process: Impoverished thought process present Thought content: Yes Normal thought content present Insight: Limited insight present (Psych) Judgement: Limited judgement present (Psych) Objective Data Vital Signs Vital Signs: Vital Signs - 24 hr 06/28/21 20:30 06/28/21 20:31 06/28/21 20:41 Temperature Pulse Rate 81 84 Respiratory Rate 16 16 Blood Pressure Pulse Oximetry 92 06/28/21 21:31 06/28/21 22:00 06/29/21 06:00 Temperature 36.5 C 36.4 C Pulse Rate 84 66 63 Respiratory Rate 20 18 Blood Pressure 161/67 H 159/62 H Pulse Oximetry 98 96 06/29/21 08:50 06/29/21 08:59 06/29/21 09:21 Temperature Pulse Rate 75 80 75 Respiratory Rate 16 16 16 Blood Pressure Pulse Oximetry 92 06/29/21 10:20 06/29/21 10:30 06/29/21 10:45 Temperature 36.8 C Pulse Rate 85 84 76 Respiratory Rate 20 Blood Pressure 161/74 H 162/76 H 153/74 H Pulse Oximetry 06/29/21 11:00 06/29/21 11:15 06/29/21 11:30 Temperature Pulse Rate 79 75 72 Respiratory Rate Blood Pressure 150/88 H 153/71 H 152/74 H Pulse Oximetry 06/29/21 11:45 06/29/21 12:00 06/29/21 12:15 Temperature Pulse Rate 64 72 67 Respiratory Rate Blood Pressure 160/71 H 166/80 H 151/71 H Pulse Oximetry 06/29/21 12:30 06/29/21 12:45 06/29/21 13:00 Temperature Pulse Rate 66 73 70 Respiratory Rate Blood Pressure 161/68 H 159/81 H 152/72 H Pulse Oximetry 06/29/21 13:15 06/29/21 13:30 06/29/21 13:45 Temp
[2021-06-29 16:35] LABS: Glucose Point of Care 114 mg/dl (65-105)
[2021-06-29 16:55] LABS: Glucose Pleural Fluid 95 mg/dL; LDH Pleural Fluid 95 U/L; Total Protein Pleural Fluid <3.0 g/dL
[2021-06-29 21:14] LABS: Glucose Point of Care 117 mg/dl (65-105)
[2021-06-30 03:43] VITALS: BP 176/83; PULSE 76; RESP 20; TEMP 36.4; O2SAT 97
[2021-06-30] MEDS: HEPARIN SODIUM 5,000 UNITS/ML VIAL 5000 UNITS SUB-Q (05:34)
[2021-06-30] MEDS: hydrALAZINE HCL 20 MG/ML VIAL 10 MG IV PUSH (05:34)
[2021-06-30 05:55] LABS: Basophils Absolute Auto 0.1 K/mm3 (0.0-0.1); Eosinophils Absolute Auto 0.4 K/mm3 (0-0.3); Eosinophils Percent Auto 4.6 % (0-4.4); Hematocrit 38.3 % (42.0-52.0); Hemoglobin 11.4 g/dL (14.0-18.0); Immature Granulocyte Absolute 0.05 K/mm3 (0.00-0.031); Immature Granulocyte Percent A 0.7 % (0-0.5); Lymphocytes Absolute Auto 0.99 K/mm3 (0.9-3.2); Mean Corpuscular HGB Conc 29.8 g/dl (32-36); Mean Corpuscular Hemoglobin 27.3 pg (26-34); Mean Corpuscular Volume 91.6 fl (80-100); Mean Platelet Volume 10.4 fl (7.4-10.4); Monocytes Absolute Auto 0.7 K/mm3 (0.1-0.6); Monocytes Percent Auto 9.7 % (2.6-8.5); Neutrophils Absolute Auto 5.4 K/mm3 (1.3-6.7); Platelet Count Result 422 k/mm3 (150-375); Red Blood Count 4.18 M/mm3 (4.6-6.20); Red Cell Distribution Width 17.2 % (11.5-14.5); White Blood Count 7.6 K/mm3 (4.5-10.0)
[2021-06-30 06:21] LABS: Anion Gap 5 mmol/L (8-16); Blood Urea Nitrogen 17 mg/dL (9-20); Calcium 8.2 mg/dL (8.4-10.2); Carbon Dioxide 31 mmol/L (22-30); Chloride 101 mmol/L (98-107); Estimated CRCL calculation 38 ml/min; Estimated Glomerular Filt Rate 38; Glucose 93 mg/dL (65-110); Potassium 3.5 mmol/L (3.4-5.0); Sodium 137 mmol/L (137-145)
[2021-06-30 07:31] LABS: Glucose Point of Care 83 mg/dl (65-105)
[2021-06-30 08:00] VITALS: PULSE 78; RESP 20; O2SAT 97
[2021-06-30] MEDS: ATORVASTATIN 40 MG TABLET PO (08:35)
[2021-06-30] MEDS: lisinopriL 20 MG TABLET PO (08:35)
[2021-06-30] MEDS: GABAPENTIN 300 MG CAPSULE PO ×3 (08:35→17:02)
[2021-06-30] MEDS: ISOSORBIDE MONONITRATE 60 MG TAB.ER.24H PO (08:35)
[2021-06-30] MEDS: FUROSEMIDE 80 MG TABLET PO (08:35)
[2021-06-30 08:36] VITALS: PULSE 78
[2021-06-30] MEDS: PANTOPRAZOLE 40 MG TABLET PO (08:36)
[2021-06-30] MEDS: MUPIROCIN 2% OINT 22 GM TUBE 1 APPLIC TOPICAL (08:36)
[2021-06-30] MEDS: METOPROLOL TARTRATE 50 MG TAB PO (08:36)
--- NOTE | 2021-06-30 10:29 | P.PNNP_ITS ---
Progress Note: A&P Assessment and Plan (1) End stage renal disease: Code(s): N18.6 - End stage renal disease Status: Chronic Assessment and Plan: * creatinine has been progressively declining in the last few months * this is further complicated by his recurrent hospitalizations for volume overload/anasarca * suspect dialysis may be the only intervention at this time to maintain stability in his fluid status, and hence, he is dialysis dependent/ESRD * outpatient dialysis being arranged * continue dialysis 3x/week * follow electrolytes, volume status, and clearance * push fluid removal as tolerated to achieve/maintain euvolemia (2) Hallucinations: Code(s): R44.3 - Hallucinations, unspecified Status: Acute Assessment and Plan: * improved (3) Acute combined systolic and diastolic CHF, NYHA class 1: Code(s): I50.41 - Acute combined systolic (congestive) and diastolic (congestive) heart failure Status: Acute Assessment and Plan: * well known issues with several recent hospitalizations for this problems * see #2 (4) Anasarca: Code(s): R60.1 - Generalized edema Status: Acute Assessment and Plan: * improvement noted with initiation of IT SECURITY ANALYST/dialysis * continue fluid removal as tolerated (5) Hypertension: Qualifiers: Hypertension type: unspecified Qualified Code(s): I10 - Essential (primary) hypertension Code(s): I10 - Essential (primary) hypertension Status: Acute Assessment and Plan: * reasonable control at this time * on metoprolol and lisinopril (6) EPO-resistant anemia: Code(s): D63.1 - Anemia in chronic kidney disease Status: Acute Assessment and Plan: * due to progressive decline in renal function and acute illness * continue Epogen with dialysis * follow H/H (7) Diabetes: Code(s): E11.9 - Type 2 diabetes mellitus without complications Status: Chronic Assessment and Plan: * follow Accu-Cheks * on sliding-scale insulin Will continue to follow. Subjective Date/time seen: 06/30/21 10:29 Tolerated dialysis treatment yesterday without any issues or problems; breathing/respiratory status continues to improve if not remains stable; swelling/edema has improved as well with aggressive fluid removal with dialysis; no apparent distress voiced at this time. Exam Narrative: General: WD/WN male in NAD Heart: normal S1 and S2; no rub Lungs: clear anteriology; decreased at bases Abdomen: soft, nontender, nondistended, positive bowel sounds Extremities: trace to 1+ edema Skin: chronic venous stasis changes on lower extremities Objective Data Vital Signs Vital Signs: Vital Signs Temp Pulse Resp BP Pulse Ox 06/30/21 08:36 78 06/30/21 08:00 78 20 97 06/30/21 03:43 36.4 C 76 20 176/83 H 97 06/29/21 22:25 93 06/29/21 20:41 64 06/29/21 20:19 36.7 C 63 18 151/69 H 98 06/29/21 19:36 62 147/58 H 06/29/21 14:43 75 06/29/21 14:10 36.6 C 67 18 166/81 H 06/29/21 14:00 36.4 C 64 18 146/62 H 96 06/29/21 13:45 65 167/78 H 06/29/21 13:30 63 165/73 H 06/29/21 13:15 72 164/71 H 06/29/21 13:00 70 152/72 H 06/29/21 12:45 73 159/81 H 06/29/21 12:30 66
--- NOTE | 2021-06-30 10:29 | PM.PNNEP ---
Progress Note: A&P Assessment and Plan (1) End stage renal disease: Code(s): N18.6 - End stage renal disease Status: Chronic Assessment and Plan: creatinine has been progressively declining in the last few months this is further complicated by his recurrent hospitalizations for volume overload/anasarca suspect dialysis may be the only intervention at this time to maintain stability in his fluid status, and hence, he is dialysis dependent/ESRD outpatient dialysis being arranged continue dialysis 3x/week follow electrolytes, volume status, and clearance push fluid removal as tolerated to achieve/maintain euvolemia (2) Hallucinations: Code(s): R44.3 - Hallucinations, unspecified Status: Acute Assessment and Plan: improved (3) Acute combined systolic and diastolic CHF, NYHA class 1: Code(s): I50.41 - Acute combined systolic (congestive) and diastolic (congestive) heart failure Status: Acute Assessment and Plan: well known issues with several recent hospitalizations for this problems see #2 (4) Anasarca: Code(s): R60.1 - Generalized edema Status: Acute Assessment and Plan: improvement noted with initiation of 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/dialysis continue fluid removal as tolerated (5) Hypertension: Qualifiers: Hypertension type: unspecified Qualified Code(s): I10 - Essential (primary) hypertension Code(s): I10 - Essential (primary) hypertension Status: Acute Assessment and Plan: reasonable control at this time on metoprolol and lisinopril (6) EPO-resistant anemia: Code(s): D63.1 - Anemia in chronic kidney disease Status: Acute Assessment and Plan: due to progressive decline in renal function and acute illness continue Epogen with dialysis follow H/H (7) Diabetes: Code(s): E11.9 - Type 2 diabetes mellitus without complications Status: Chronic Assessment and Plan: follow Accu-Cheks on sliding-scale insulin Will continue to follow. Subjective Date/time seen: 06/30/21 10:29 Tolerated dialysis treatment yesterday without any issues or problems; breathing/respiratory status continues to improve if not remains stable; swelling/edema has improved as well with aggressive fluid removal with dialysis; no apparent distress voiced at this time. Exam Narrative: General: WD/WN male in NAD Heart: normal S1 and S2; no rub Lungs: clear anteriology; decreased at bases Abdomen: soft, nontender, nondistended, positive bowel sounds Extremities: trace to 1+ edema Skin: chronic venous stasis changes on lower extremities Objective Data Vital Signs Vital Signs: Vital Signs Temp Pulse Resp BP Pulse Ox 06/30/21 08:36 78 06/30/21 08:00 78 20 97 06/30/21 03:43 36.4 C 76 20 176/83 H 97 06/29/21 22:25 93 06/29/21 20:41 64 06/29/21 20:19 36.7 C 63 18 151/69 H 98 06/29/21 19:36 62 147/58 H 06/29/21 14:43 75 06/29/21 14:10 36.6 C 67 18 166/81 H 06/29/21 14:00 36.4 C 64 18 146/62 H 96 06/29/21 13:45 65 167/78 H 06/29/21 13:30 63 165/73 H 06/29/21 13:15 72 164/71 H 06/29/21 13:00 70 152/72 H 06/29/21 12:45 73 159/81 H 06/29/21 12:30 66 161/68 H 06/29/21 12:15 67 151/71 H 06/29/21 12:00 72 166/80 H 06/29/21 11:45 64 160/71 H Intake/Output Intake/Output: Intake & Output 06/28/21 06/28/21 06/29/21 06/30/21 00:59 23:59 23:59 23:59 Intake Total 1085 480 Output Total 5400 200 Balance -4315 280 Meds/Results Medications: Active Medications Generic Name Dose Route Start Last Admin Trade Name Angi PRN Reason Stop Dose Admin Acetaminophen 500 mg 05/30/21 21:16 06/22/21 18:27 Acetaminophen 500 Mg Tablet PO 500 mg Q6H PRN Administration Mild Pain (1-3) or Fever Albuterol 2.5 mg 06/29/21 15:17 Albuterol Sulfate Neb 2.5 Mg/0.
--- NOTE | 2021-06-30 10:50 | PM.IMPN ---
Progress Note: A&P Assessment and Plan (1) Anasarca: Code(s): R60.1 - Generalized edema Status: Acute Assessment and Plan: Currently resolving with renal replacement therapy. Continue underwent dialysis as scheduled today. Plan will be to start dialysis as an outpatient; however the patient does not have insurance and is not documented in this country. Continue PO lasix on nondialysis days. Care coordination to apply for emergency Medicaid for non citizens in recurring end-stage renal disease services. (2) Recurrent pleural effusion: Code(s): J90 - Pleural effusion, not elsewhere classified Status: Acute Assessment and Plan: Improving after diuretic and initiation renal replacement therapy. Decrease Lasix to 40 mg on Tuesdays and Saturdays on non dialysis days. (3) S/P excisional debridement: Code(s): Z98.890 - Other specified postprocedural states Status: Acute Assessment and Plan: daily wound care. (4) Unstageable decubitus ulcer: Qualifiers: Pressure injury location: sacral region Qualified Code(s): L89.150 - Pressure ulcer of sacral region, unstageable Code(s): L89.95 - Pressure ulcer of unspecified site, unstageable Status: Acute Assessment and Plan: Continue local wound care. 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 (6) Dependence on renal dialysis: Code(s): Z99.2 - Dependence on renal dialysis Status: Acute Assessment and Plan: continue dialysis as scheduled on Tuesday. 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 for dialysis center placement (7) Sepsis: Qualifiers: Sepsis type: sepsis due to unspecified organism Sepsis acute organ dysfunction status: with acute organ dysfunction Severe sepsis acute organ dysfunction type: acute renal failure Acute renal failure type: unspecified Severe sepsis shock status: without septic shock Qualified Code(s): A41.9 - Sepsis, unspecified organism; R65.20 - Severe sepsis without septic shock; N17.9 - Acute kidney failure, unspecified Code(s): A41.9 - Sepsis, unspecified organism Status: Resolved (8) Leukocytosis: Qualifiers: Leukocytosis type: unspecified Qualified Code(s): D72.829 - Elevated white blood cell count, unspecified Code(s): D72.829 - Elevated white blood cell count, unspecified Status: Acute (9) Anemia: Qualifiers: Anemia type: due to chronic kidney disease Chronic kidney disease stage: stage 5, not on chronic dialysis Qualified Code(s): N18.5 - Chronic kidney disease, stage 5; D63.1 - Anemia in chronic kidney disease Code(s): D64.9 - Anemia, unspecified Status: Acute (10) Combined congestive systolic and diastolic heart failure: Qualifiers: Heart failure chronicity: acute on chronic Qualified Code(s): I50.43 - Acute on chronic combined systolic (congestive) and diastolic (congestive) heart failure Code(s): I50.40 - Unspecified combined systolic (congestive) and diastolic (congestive) heart failure Status: Acute Assessment and Plan: The patient has acute on chronic systolic and diastolic heart failure with anasarca and pleural effusions. Patient renal function has deteriorated, has been started on hemodialysis. Continue daily p.o. Lasix on nondialysis days. (11) Anemia in chronic illness: Code(s): D63.8 - Anemia in other chronic diseases classified elsewhere Status: Acute (12) Insulin dependent diabetes mellitus: Status: Chronic Assessment and Plan: Fasting blood glucose 93. Accu-Chek in the 83 range. Continue cl
[2021-06-30 11:31] LABS: Glucose Point of Care 114 mg/dl (65-105)
--- NOTE | 2021-06-30 13:58 | PM.DS ---
DS: Admitting Diagnosis Discharge Date 06/30/2021. Admitting Diagnosis Acute CHF exacerbation. DS: Discharge Diagnosis Discharge Diagnosis (1) Anasarca: Code(s): R60.1 - Generalized edema Status: Acute Assessment and Plan: Currently resolving with renal replacement therapy. Continue underwent dialysis as scheduled today. Plan will be to start dialysis as an outpatient; however the patient does not have insurance and is not documented in this country. Continue PO lasix on nondialysis days. Care coordination to apply for emergency Medicaid for non citizens in recurring end-stage renal disease services. (2) Recurrent pleural effusion: Code(s): J90 - Pleural effusion, not elsewhere classified Status: Acute Assessment and Plan: Improving after diuretic and initiation renal replacement therapy. Decrease Lasix to 40 mg on Tuesdays and Saturdays on non dialysis days. (3) S/P excisional debridement: Code(s): Z98.890 - Other specified postprocedural states Status: Acute Assessment and Plan: daily wound care. (4) Unstageable decubitus ulcer: Qualifiers: Pressure injury location: sacral region Qualified Code(s): L89.150 - Pressure ulcer of sacral region, unstageable Code(s): L89.95 - Pressure ulcer of unspecified site, unstageable Status: Acute Assessment and Plan: Continue local wound care. 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 (6) Dependence on renal dialysis: Code(s): Z99.2 - Dependence on renal dialysis Status: Acute Assessment and Plan: continue dialysis as scheduled on Tuesday. animal nursery worker evaluation for dialysis center placement (7) Sepsis: Qualifiers: Sepsis type: sepsis due to unspecified organism Sepsis acute organ dysfunction status: with acute organ dysfunction Severe sepsis acute organ dysfunction type: acute renal failure Acute renal failure type: unspecified Severe sepsis shock status: without septic shock Qualified Code(s): A41.9 - Sepsis, unspecified organism; R65.20 - Severe sepsis without septic shock; N17.9 - Acute kidney failure, unspecified Code(s): A41.9 - Sepsis, unspecified organism Status: Resolved (8) Leukocytosis: Qualifiers: Leukocytosis type: unspecified Qualified Code(s): D72.829 - Elevated white blood cell count, unspecified Code(s): D72.829 - Elevated white blood cell count, unspecified Status: Acute (9) Anemia: Qualifiers: Anemia type: due to chronic kidney disease Chronic kidney disease stage: stage 5, not on chronic dialysis Qualified Code(s): N18.5 - Chronic kidney disease, stage 5; D63.1 - Anemia in chronic kidney disease Code(s): D64.9 - Anemia, unspecified Status: Acute (10) Combined congestive systolic and diastolic heart failure: Qualifiers: Heart failure chronicity: acute on chronic Qualified Code(s): I50.43 - Acute on chronic combined systolic (congestive) and diastolic (congestive) heart failure Code(s): I50.40 - Unspecified combined systolic (congestive) and diastolic (congestive) heart failure Status: Acute Assessment and Plan: The patient has acute on chronic systolic and diastolic heart failure with anasarca and pleural effusions. Patient renal function has deteriorated, has been started on hemodialysis. Continue daily p.o. Lasix on nondialysis days. (11) Anemia in chronic illness: Code(s): D63.8 - Anemia in other chronic diseases classified elsewhere Status: Acute (12) Insulin dependent diabetes mellitus: Status:
[2021-06-30 14:00] VITALS: BP 122/51; PULSE 65; RESP 20; TEMP 37.1; O2SAT 95
[2021-06-30] MEDS: ASPIRIN 81 MG CHEWABLE TABLET PO (14:03)
[2021-06-30 16:36] LABS: Glucose Point of Care 142 mg/dl (65-105)
[2021-06-30 19:45] VITALS: BP 149/89; PULSE 77; RESP 18; TEMP 36.9; O2SAT 95
== END 2021-06-30 21:10 | DRG 951 ==
LOC: ANHED 21:34 → ANHIMU 05-21 04:49 → ANH2MED 06-30 13:29 → ANHIMU 07-01 13:11
PROVIDERS: Emergency Medicine; Family Medicine; Internal Medicine; Internal Medicine Critical Care Medicine; Internal Medicine Nephrology; Surgery; Admitting Provider Internal Medicine; Emergency Provider General Practice; Visit Provider Internal Medicine
PROC: 0JH63XZ Insertion of Tunneled Vascular Access Device into Chest Subcutaneous Tissue and Fascia, Percutaneous Approach (ICD-10-PCS; CPT 36908; principal; 2021-06-13 10:30)
PROC: (CPT 46040; principal; 2021-06-22 13:30)
DX: I13.2 Hypertensive heart and chronic kidney disease with heart failure and with stage 5 chronic kidney disease, or end stage renal disease (principal); I50.43 Acute on chronic combined systolic (congestive) and diastolic (congestive) heart failure; N17.9 Acute kidney failure, unspecified; R65.20 Severe sepsis without septic shock; E11.22 Type 2 diabetes mellitus with diabetic chronic kidney disease; Z79.84 Long term (current) use of oral hypoglycemic drugs; D63.8 Anemia in other chronic diseases classified elsewhere; I42.9 Cardiomyopathy, unspecified; K57.90 Diverticulosis of intestine, part unspecified, without perforation or abscess without bleeding; Z79.4 Long term (current) use of insulin; I25.5 Ischemic cardiomyopathy; E11.51 Type 2 diabetes mellitus with diabetic peripheral angiopathy without gangrene; I34.0 Nonrheumatic mitral (valve) insufficiency; Z89.511 Acquired absence of right leg below knee; E87.5 Hyperkalemia; I25.10 Atherosclerotic heart disease of native coronary artery without angina pectoris; E11.621 Type 2 diabetes mellitus with foot ulcer; L97.529 Non-pressure chronic ulcer of other part of left foot with unspecified severity; R44.3 Hallucinations, unspecified; J96.01 Acute respiratory failure with hypoxia; R91.8 Other nonspecific abnormal finding of lung field; N18.32 Chronic kidney disease, stage 3b; E11.649 Type 2 diabetes mellitus with hypoglycemia without coma; R33.9 Retention of urine, unspecified; I47.2 Ventricular tachycardia; L03.119 Cellulitis of unspecified part of limb; Z91.14 Patient's other noncompliance with medication regimen; G93.41 Metabolic encephalopathy; T82.838A Hemorrhage due to vascular prosthetic devices, implants and grafts, initial encounter; Y82.8 Other medical devices associated with adverse incidents; Y92.230 Patient room in hospital as the place of occurrence of the external cause; N18.6 End stage renal disease; D63.1 Anemia in chronic kidney disease; R19.7 Diarrhea, unspecified; E80.6 Other disorders of bilirubin metabolism; E87.1 Hypo-osmolality and hyponatremia; A41.9 Sepsis, unspecified organism; L89.150 Pressure ulcer of sacral region, unstageable; N30.91 Cystitis, unspecified with hematuria; M86.9 Osteomyelitis, unspecified; M72.6 Necrotizing fasciitis; Z86.73 Personal history of transient ischemic attack (TIA), and cerebral infarction without residual deficits; J90 Pleural effusion, not elsewhere classified; N50.89 Other specified disorders of the male genital organs; I25.2 Old myocardial infarction
CPT/HCPCS: 32555; 36415; 36430; 36556; 36600; 70450; 71045; 71046; 71250; 73590; 74176; 76870; 76937; 77001; 80048; 80053; 80069; 80074; 80076; 80202; 81001; 82040; 82042; 82140; 82150; 82274; 82375; 82465; 82550; 82565; 82607; 82728; 82746; 82805; 82945; 82947; 82948; 83050; 83540; 83550; 83605; 83615; 83735; 83880; 83970; 83986; 84100; 84132; 84145; 84155; 84157; 84311; 84439; 84443; 84478; 85014; 85018; 85025; 85027; 85046; 85049; 85380; 85610; 85652; 85730; 86140; 86592; 86703; 86704; 86706; 86803; 86850; 86900; 86901; 86920; 87015; 87040; 87070; 87075; 87077; 87086; 87088; 87116; 87186; 87205; 87206; 87340; 88104; 88108; 88184; 88305; 89051; 93005; 93306; 93976; 94002; 94003; 94640; 94660; 96372; 96374; 96375; 96376; 97110; 97161; 97164; 97165; 97530; 97535; 99285; A9270; C1750; C1751; G0257; G0378; G0379; G0432; J0360; J0690; J0696; J1170; J1250; J1610; J1630; J1644; J1720; J1756; J1815; J1940; J2060; J2250; J2270; J2543; J2704; J2930; J3370; J3475; J7030; J7040; J7042; J7050; J7060; J7120; P9016; P9047; Q5105

== ENCOUNTER 2021-07-26 18:21 | Emergency (ER) | payer MEDICAID, SELFPAY ==
[2021-07-26] VITALS (18 sets, daily range): BP systolic 148–179; BP diastolic 71–86; PULSE 78–95; RESP 14–17; TEMP 36.2; O2SAT 96–100
--- NOTE | ~2021-07-26 | XR_ITS ---
EXAMINATION: XR chest 2V DATE: 07/26/2021 20:01 INDICATION: Chest pain. TECHNIQUE: Frontal and lateral views of the chest were obtained. COMPARISON: Chest 2 views 06/26/2021, CT abdomen and pelvis 06/24/2021 FINDINGS: There are small pleural effusions. There is mild atelectasis at the lung bases. No pneumoth orax. The heart size is normal. A right internal jugular central venous catheter is seen with tip in the right atrium. IMPRESSION: 1. Small pleural effusions, improved from 06/26/2021. Reviewed, dictated and finalized at location A. RING ASSISTANT
--- NOTE | ~2021-07-26 | NM_ITS ---
EXAMINATION: NM pulmonary perfusion DATE: 07/26/2021 23:23 INDICATION: Pleuritic chest pain and shortness of breath TECHNIQUE: 3.22 mCi Tc-99m MAA by intravenous route. Scintigraphic images of the chest were obtained . COMPARISON: FINDINGS: Small perfusion defects at the left upper lobe and along the right lung base. Mild blunting of the ri ght posterior sulcus consistent with small pleural effusion as seen on the chest radiograph. IMPRESSION: 1. Low probability for pulmonary embolism. Reviewed, dictated and finalized at location B. UMER EXPERIENCE CONSULTANT
--- NOTE | 2021-07-26 18:24 | ECG_ITS ---
Measurements Intervals [place] Rate: 93 P: 44 W[place]: 163 QRS: -24 QRSD: 96 T: 171 QT: 355 QTc: 443 Interpretive Statements SINUS RHYTHM DELAYED PRECORDIAL R/S TRANSITION LEFT VENTRICULAR HYPERTROPHY AND ST-T CHANGE BORDERLINE ST-T WAVE ABNORMALITY- INF/LAT LEADS BASELINE ARTIFACT- I, III ,AVL, V1, V4-V6 BORDERLINE ECG Electronically Signed On 07-26-2021 20:30:39 CONCRETE BLOCK MOLDER by Reji Dasilva D.O.
[2021-07-26 18:52] LABS: Hematocrit 37.1 % (42.0-52.0); Hemoglobin 11.8 g/dL (14.0-18.0); Mean Corpuscular HGB Conc 31.8 g/dl (32-36); Mean Corpuscular Hemoglobin 27.3 pg (26-34); Mean Corpuscular Volume 85.9 fl (80-100); Platelet Count Result 266 k/mm3 (150-375); Red Blood Count 4.32 M/mm3 (4.6-6.20); Red Cell Distribution Width 14.4 % (11.5-14.5); White Blood Count 9.9 K/mm3 (4.5-10.0)
[2021-07-26 19:04] LABS: Alanine Aminotransferase 24 U/L (4-50); Albumin Level 3.2 g/dL (3.5-5.1); Alkaline Phosphatase 177 U/L (38-126); Anion Gap 6 mmol/L (8-16); Aspartate Amino Transferase 31 U/L (17-59); Bilirubin,Total 0.4 mg/dL (0.2-1.3); Blood Urea Nitrogen 33 mg/dL (9-20); Calcium 8.4 mg/dL (8.4-10.2); Carbon Dioxide 29 mmol/L (22-30); Chloride 100 mmol/L (98-107); Estimated CRCL calculation 37 ml/min; Estimated Glomerular Filt Rate 29; Glucose 94 mg/dL (65-110); Lipase 85 U/L (23-300); Sodium 135 mmol/L (137-145)
[2021-07-26 19:16] LABS: Troponin I 0.013 ng/mL (0.000-0.034)
[2021-07-26 19:18] LABS: INR 1.1
[2021-07-26 19:19] LABS: Partial Thromboplastin Time 35.5 SECONDS (22.3-36.8)
[2021-07-26 19:22] LABS: Eosinophils Absolute Manual 1.58 K/mm3 (0.02-0.5); Eosinophils Percent Manual 16 % (0-4); Lymphocytes Absolute Manual 2.77 K/mm3 (1.1-4.5); Monocytes Absolute Manual 0.49 K/mm3 (0.1-0.90); Monocytes Percent Manual 5 % (3-9); Neutrophils Percent Manual 51 % (46-73); Total Cells Counted 100
[2021-07-26 19:23] LABS: Platelet Estimate Adequate (Adequate)
[2021-07-26 22:11] LABS: NT Pro B Type Natriuretic Pept 17700 pg/mL (5-100)
[2021-07-26] MEDS: FUROSEMIDE INJ 100 MG/10 ML VIAL 80 MG IV PUSH (23:32)
--- NOTE | 2021-07-26 23:34 | ED.CHESTPAIN ---
HPI - Chest Pain General Chief Complaint: Chest Pain Stated Complaint: CP Time Seen by Provider: 07/26/21 21:26 Source: patient History of Present Illness HPI narrative: Patient presents with chest pain and back pain. Patient has a history of chronic kidney disease dialysis dependent as well as a history of CHF. He comes in today with intermittent chest pain that radiates to his back. His pain is sharp and exacerbated by deep inspiration. His pain is associated with shortness of breath denies any nausea vomiting or diaphoresis. He denies any positional component to his shortness of breath. Denies any cough, congestion, fevers, chills. Related Data Home Medications Medication Instructions Recorded Confirmed amlodipine 10 mg PO DAILY 05/21/21 05/21/21 glipizide 10 mg PO DAILY 05/21/21 05/21/21 Allergies Allergy/AdvReac Type Severity Reaction Status Date / Time gadobenic acid AdvReac Unconscious Verified 07/26/21 18:38 [From contrast - MRI] Review of Systems Review of Systems: CONSTITUTIONAL: Denies fever, chills, or sweats. EYES: Denies visual changes, redness, or discharge. ENT: Denies rhinorrhea, congestion, sore throat, or otalgia. CARDIOVASCULAR: Denies palpitations, or edema. RESPIRATORY: Reports shortness of breath GASTROINTESTINAL: Denies abdominal pain, nausea, vomiting, or diarrhea. GENITOURINARY: Denies dysuria or hematuria. SKIN: Denies rash or itching. MUSCULOSKELETAL: Denies joint pain, or myalgia. NEUROLOGIC: Denies headache, numbness, dizziness, or weakness. PSYCHIATRIC: Denies anxiety or depression. All systems reviewed & are unremarkable except as noted in HPI and below [facility] Past Medical History Medical History Anemia in chronic illness Cardiomyopathy Chronic kidney disease, stage 3b Combined congestive systolic and diastolic heart failure Mildly reduced LV systolic function with an EF of 40 to 45% and grade 2 diastolic dysfunction noted on echocardiogram dated 01/22/2021. Diverticulosis EPO-resistant anemia Hypertension Insulin dependent diabetes mellitus Hemoglobin A1c was 10.9% on 01/23/2021. Complicated by gastric dysmotility, neuropathy, and nephropathy. Ischemic cardiomyopathy Lexiscan stress on 01/26/2021 showed a large area of severe infarct involving the apical lateral and mid to basal anterolateral and inferolateral segments of left ventricle on myocardial perfusion imaging with a left ventricular ejection fracture measuring 45%. Leukocytosis Peripheral vascular disease Severe mitral valve regurgitation (01/22/21) Surgical History Surgical History History of colonoscopy with polypectomy (01/27/21) 2 benign polyps removed. History of right below knee amputation Family History Family History Other Unknown family medical history Social History Social History Social History: The patient lives in [place] with his sister, [id number], nieces, and nephews. Nonsmoker. No alcohol or illicit substance abuse. He designates his sister, Birdie Stroud, as his surrogate decision maker and he wishes to be a full code. He has a son in his 20s. Smoking status: Unknown if ever smoked Spiritual care concerns: No Exam Narrative: GENERAL: Well-appearing, well-nourished, and in no acute distress. HEAD: Normocephalic, atraumatic. ENT: Nares clear, no rhinorrhea or epistaxis. Mucous membranes moist. NECK: Supple. No masses. No JVD CHEST: Clear to auscultation. No respiratory distress. No wheezes rales or rhonchi dialysis line in place HEART: Regular rate and rhythm. No murmur heard. Normal peripheral pulses. ABDOMEN: Soft, nontender, nondistended, normal active bowel sounds. EXTREMITIES: BKA on the right. No edema. SKIN: Warm, dry, no rash. NEURO:
[2021-07-27] VITALS: O2SAT 100
[2021-07-27 00:35] VITALS: O2SAT 98
[2021-07-27 00:53] VITALS: O2SAT 100
[2021-07-27 01:00] VITALS: O2SAT 99
[2021-07-27 01:16] VITALS: O2SAT 99
[2021-07-27 01:30] VITALS: BP 170/80; PULSE 97; RESP 16; O2SAT 100
--- NOTE | 2021-07-27 01:50 | PC.NURSE ---
air/ocean export clerk stated that I will be taking over care of this pt at this time.
== END 2021-07-27 04:50 | disposition home or self-care (01) ==
PROVIDERS: Emergency Medicine; Emergency Provider Emergency Medicine
DX: R07.9 Chest pain, unspecified (principal); I13.0 Hypertensive heart and chronic kidney disease with heart failure and stage 1 through stage 4 chronic kidney disease, or unspecified chronic kidney disease; E11.22 Type 2 diabetes mellitus with diabetic chronic kidney disease; N18.32 Chronic kidney disease, stage 3b; I50.82 Biventricular heart failure; Z79.4 Long term (current) use of insulin
CPT/HCPCS: 36415; 71046; 78580; 80053; 83690; 83880; 84484; 85025; 85610; 85730; 93005; 96374; 99284; A9540; J1940

== ENCOUNTER 2021-08-01 18:14 | Inpatient (IN) | payer MEDICAID, SELFPAY ==
--- NOTE | ~2021-08-01 | CT_ITS ---
EXAMINATION: CT abdomen pelvis wo con EXAM DATE: 08/01/2021 21:01 INDICATION: Sacral wound. TECHNIQUE: Spiral CT of the abdomen and pelvis was performed without contrast. Axial, coronal and s agittal images of the abdomen and pelvis were reviewed. The dose-length product (DLP) for this exami nation was 564.11 mGy-cm. The exposure was tailored according to patient size (auto mA exposure cont rol), and iterative reconstruction (ASIR) was used as additional dose reduction technique. Comparison is made to prior examination from 06/24/2021. FINDINGS: There is inflammation, ill-defined phlegmon and more central fluid density which could absc ess at the sacral decubitus wound. Again this extends to the sacrum, with development of small erosiv e change along the posterior cortex of the S6 segment, and erosion of the coccyx, findings not presen t last month, evidence of osteomyelitis. Improvement in previously seen body wall edema, no appreciable ascites on this exam. The liver, sple en, adrenal glands and pancreas are unremarkable. Gallbladder is unremarkable. No biliary obstructi on. There is no nephrolithiasis or hydronephrosis. The prostate is unremarkable. The bladder is col lapsed with Ramirez catheter balloon anchor inside, and some wall thickening which could indicate chron ic cystitis.. There is no retroperitoneal or pelvic lymphadenopathy. There is mild scattered arter iosclerotic disease. There is appendicolith within the appendix tip. No evidence of appendicitis. There is mild scattered colonic diverticulosis. There is no adjacent inflammatory change to suggest diverticulitis. The stom ach and small bowel are unremarkable. There is moderate amount of colonic stool. No free intraperi toneal gas. There are no osteoblastic or osteolytic lesions identified. Small to moderate left, sma ll right pleural effusions with interval improvement. Some bibasilar atelectasis. There are no osteob lastic or osteolytic lesions identified. . IMPRESSION: 1. Sacral decubitus, phlegmon and possibly infected fluid/abscess with development of sacrococcygeal erosion, osteomyelitis. 2. Improvement in pleural effusions and atelectasis. 3. Bladder wall thickening could indicate chronic cystitis. Ramirez in position. Reviewed, dictated and finalized at location A. LOT CLEANER IMPRESSION: 1. Sacral decubitus, phlegmon and possibly infected fluid/abscess with develop ment of sacrococcygeal erosion, osteomyelitis. 2. Improvement in pleural effusions and atelectasis. 3. Bladder wall thickening could indicate chronic cystitis. Ramirez in position.
[2021-08-01 18:23] VITALS: BP 137/61; PULSE 98; RESP 18; TEMP 36.7; O2SAT 100
--- NOTE | 2021-08-01 18:56 | ED.GENADULT ---
HPI - General Adult General Chief complaint: Extremity Injury, Lower Stated complaint: r flank pain Time Seen by Provider: 08/01/21 18:37 History of Present Illness HPI narrative: Patient is a 45-year-old male who presents to the ER with complaints of pain to his buttock region. Began over the last day. Patient has a right BKA. He is ambulatory with a walker at his shelter. Reports he has been receiving chronic wound care to the sacral decubitus ulcer. He does have pain around the area which is new. Denies fevers or chills or sweats there is foul-smelling purulent discharge with which patient reports must be new because he did not know about it. No alleviating factors. Came in for further evaluation. Related Data Home Medications Medication Instructions Recorded Confirmed amlodipine 10 mg PO DAILY 05/21/21 05/21/21 glipizide 10 mg PO DAILY 05/21/21 05/21/21 Allergies Allergy/AdvReac Type Severity Reaction Status Date / Time gadobenic acid AdvReac Unconscious Verified 08/01/21 18:51 [From contrast - MRI] Review of Systems Review of Systems: All systems reviewed & are unremarkable except as noted in HPI and below Constitutional: Constitutional: Denies chills, Denies fever(s) and Denies weakness ENT: Denies nasal congestion and Denies sore throat Cardiovascular: Cardiovascular: Denies chest pain, Denies rapid heart rate and Denies radiating jaw, neck or arm pain Respiratory: Respiratory: Denies cough, Denies dyspnea and Denies wheezing Gastrointestinal: Gastrointestinal: Denies abdominal pain, Denies nausea and Denies vomiting Genitourinary: Genitourinary: Denies urinary frequency and Denies urinary incontinence Comments: Chronic indwelling Ramirez catheter Integumentary/Breasts: Skin/Breast: Denies erythema, Denies rash and Reports skin ulcer PMFSH Past Medical History Medical History Anemia in chronic illness Cardiomyopathy Chronic kidney disease, stage 3b Combined congestive systolic and diastolic heart failure Mildly reduced LV systolic function with an EF of 40 to 45% and grade 2 diastolic dysfunction noted on echocardiogram dated 01/22/2021. Diverticulosis EPO-resistant anemia Hypertension Insulin dependent diabetes mellitus Hemoglobin A1c was 10.9% on 01/23/2021. Complicated by gastric dysmotility, neuropathy, and nephropathy. Ischemic cardiomyopathy Lexiscan stress on 01/26/2021 showed a large area of severe infarct involving the apical lateral and mid to basal anterolateral and inferolateral segments of left ventricle on myocardial perfusion imaging with a left ventricular ejection fracture measuring 45%. Leukocytosis Peripheral vascular disease Severe mitral valve regurgitation (01/22/21) Surgical History Surgical History History of colonoscopy with polypectomy (01/27/21) 2 benign polyps removed. History of right below knee amputation Family History Family History Other Unknown family medical history Social History Social History Social History: The patient lives in [place] with his sister, [id number], nieces, and nephews. Nonsmoker. No alcohol or illicit substance abuse. He designates his sister, Birdie Stroud, as his surrogate decision maker and he wishes to be a full code. He has a son in his 20s. Smoking status: Unknown if ever smoked Spiritual care concerns: No Exam Narrative: GENERAL: Chronically ill-appearing, well-nourished, and in no acute distress. HEAD: Normocephalic, atraumatic. EYES: PERRL and EOMI. ENT: Mucous membranes moist. CHEST: Clear to auscultation. No respiratory distress. HEART: Regular rate and rhythm. Normal peripheral pulses. ABDOMEN: Soft, nontender, nondistended. EXTREMITIES: Normal range of motion. No edema. SKI
--- NOTE | 2021-08-01 19:08 | PC.NURSE ---
Report to SILVERIO Broderick, to continue care.
[2021-08-01 19:45] LABS: Basophils Percent Auto 0.4 % (0.2-1.2); Eosinophils Absolute Auto 0.7 K/mm3 (0-0.3); Eosinophils Percent Auto 9.4 % (0-4.4); Hematocrit 34.9 % (42.0-52.0); Hemoglobin 11.1 g/dL (14.0-18.0); Immature Granulocyte Absolute 0.02 K/mm3 (0.00-0.031); Immature Granulocyte Percent A 0.3 % (0-0.5); Lymphocytes Absolute Auto 1.49 K/mm3 (0.9-3.2); Lymphocytes Percent Auto 19.4 % (18.3-44.2); Mean Corpuscular HGB Conc 31.8 g/dl (32-36); Mean Corpuscular Hemoglobin 27.3 pg (26-34); Monocytes Absolute Auto 0.7 K/mm3 (0.1-0.6); Monocytes Percent Auto 9.4 % (2.6-8.5); Neutrophils Absolute Auto 4.7 K/mm3 (1.3-6.7); Neutrophils Percent Auto 61.1 % (45.5-73.1); Platelet Count Result 261 k/mm3 (150-375); Red Blood Count 4.06 M/mm3 (4.6-6.20); Red Cell Distribution Width 14.3 % (11.5-14.5); White Blood Count 7.7 K/mm3 (4.5-10.0)
[2021-08-01 20:15] LABS: INR 1.1
[2021-08-01 20:16] LABS: Partial Thromboplastin Time 33.8 SECONDS (22.3-36.8)
[2021-08-01 20:24] LABS: Alanine Aminotransferase 21 U/L (4-50); Albumin Level 3.3 g/dL (3.5-5.1); Alkaline Phosphatase 148 U/L (38-126); Anion Gap 6 mmol/L (8-16); Aspartate Amino Transferase 32 U/L (17-59); Bilirubin,Total 0.6 mg/dL (0.2-1.3); Blood Urea Nitrogen 26 mg/dL (9-20); CRP 2.1 mg/dL (<1.0); Calcium 8.2 mg/dL (8.4-10.2); Carbon Dioxide 29 mmol/L (22-30); Chloride 98 mmol/L (98-107); Estimated Glomerular Filt Rate 43; Glucose 241 mg/dL (65-110); Potassium 3.2 mmol/L (3.4-5.0); Sodium 133 mmol/L (137-145)
[2021-08-01 21:58] VITALS: BP 140/71; PULSE 74; RESP 19; O2SAT 97
--- NOTE | 2021-08-01 23:18 | PC.NURSE ---
spoke with the nurse from [facility] - updated her on the patient being admitted.
[2021-08-02] VITALS (7 sets, daily range): BP systolic 128–155; BP diastolic 55–97; PULSE 65–92; RESP 16–24; TEMP 36.4–36.8; O2SAT 99–100; BMI 26.9
--- NOTE | 2021-08-02 00:30 | PM.IMHP ---
H&P: HPI History of Present Illness Date/Time: 08/02/21 00:30 Chief Complaint: Pain in the buttock Narrative: This is a 45-year-old male with past medical history significant for insulin dependent diabetes mellitus, hypertension, end-stage renal disease on hemodialysis, peripheral diabetic neuropathy, right BKA, left diabetic foot, patient is living in a halfway. His brother in today for evaluation of pain in the sacral area patient has a decubitus ulcer that has been getting wound care at the facility however the wound has gotten worse with purulent malodorous discharge and pain. Patient has been going to his dialysis treatments on overall his been doing fairly well, he denies any fevers, any rigors ,any chills ,any nausea ,any vomiting ,any diarrhea, has had good appetite no cough, no shortness of breath. In emergency room patient was found to have decubitus ulcer in the sacral area with malodorous discharge and surrounding erythema and swelling. Preliminary workup was significant for CT of abdomen and pelvis sacral decubitus, phlegmon and possibly infected fluid/abscess with development of sacrococcygeal erosion, osteomyelitis,improvement in pleural effusions and atelectasis,bladder wall thickening could indicate chronic cystitis. Ramirez in position. Decision has been made to admit the patient for further evaluation management and treatment. Review of Systems Review of Systems: Pain in the sacral area decubitus ulcer with purulent malodorous discharge Constitutional: Constitutional: Denies chills, Denies fatigue, Denies fever(s), Denies night sweats and Denies weakness Eyes: Eyes: Denies change in vision ENT: Denies dysphagia, Denies vertigo, Denies dizziness, Denies nasal congestion, Denies nasal discharge, Denies nasal obstruction and Denies odynophagia Cardiovascular: Cardiovascular: Denies claudication, Denies radiating jaw, neck or arm pain, Denies palpitations and Denies orthopnea Respiratory: Respiratory: Denies cough and Denies dyspnea Gastrointestinal: Gastrointestinal: Denies dyspepsia, Denies heartburn, Denies diarrhea, Denies nausea and Denies vomiting Genitourinary: Comments: Ramirez in place Musculoskeletal: Musculoskeletal: Reports back pain Comments: Sacral area pain and wound Integumentary/Breasts: Comments: Sacral wound Neurologic: Denies focal weakness and Denies Sensory deficit (Neuro) Psychiatric: Psychiatric: Reports no additional psychiatric complaints and Reports as per HPI Endocrine: Endocrine: Reports no additional endocrine complaints and Reports as per HPI Hematologic/Lymphatic: Hematologic/Lymphatic: Reports no additional hematologic/lymphatic complaints and Reports as per HPI Allergic/Immunologic: Allergic/Immunologic: Reports no additional allergic/immunologic complaints and Reports as per HPI [facility] Past Medical History Medical History Anemia in chronic illness Cardiomyopathy Chronic kidney disease, stage 3b Combined congestive systolic and diastolic heart failure Mildly reduced LV systolic function with an EF of 40 to 45% and grade 2 diastolic dysfunction noted on echocardiogram dated 01/22/2021. Diverticulosis EPO-resistant anemia Hypertension Insulin dependent diabetes mellitus Hemoglobin A1c was 10.9% on 01/23/2021. Complicated by gastric dysmotility, neuropathy, and nephropathy. Ischemic cardiomyopathy Lexiscan stress on 01/26/2021 showed a large area of severe infarct involving the apical lateral and mid to basal anterolateral and inferolateral segments of left ventricle on myocardial perfusion imaging with a left ventricular ejection fracture measuring 45%. Leukocytosis Peripheral vascular disease Severe mitral valve regurgitation (01/22/21) Surgical History Surgical History History of colonoscopy with polypectomy (01/27/21) 2 benign polyps removed. History of right bel
--- NOTE | 2021-08-02 00:37 | ADMGEN ---
This patient, Gustavo Chacko, was admitted to Medical Room 241-01 at 0035. Patient/family oriented to hospital policies and general routines including ID bracelet, bed and alarms, visiting hours, pain management, procedures, bathroom and other care routines, personal items, smoking policy, room service/diet, and visiting hours. Information on how to activate the Rapid Response Team has been discussed. Patient/Family are encouraged to report perceived risks to care and to ask questions if they do not understand what they are told or what they should do.
[2021-08-02 08:26] LABS: Glucose Point of Care 140 mg/dl (65-105)
--- NOTE | 2021-08-02 08:44 | PM.IMPN ---
Progress Note: A&P Assessment and Plan (1) Acute osteomyelitis of sacrum: Code(s): M46.28 - Osteomyelitis of vertebra, sacral and sacrococcygeal region Status: Acute Assessment and Plan: This 1 has been a chronic issue for him. Patient is confined to his bed, which is certainly making this worse. On admission he was appropriately started on Zosyn and vancomycin. Surgery has been consulted. plan for debridement today. Blood cultures are pending at the time of this dictation. (2) Abscess of sacrum: Code(s): M46.28 - Osteomyelitis of vertebra, sacral and sacrococcygeal region Status: Acute Assessment and Plan: Surgery consulted. Local care. wound care. Supportive care (3) End stage renal disease: Code(s): N18.6 - End stage renal disease Status: Chronic Assessment and Plan: Patient was declared ESRD during his last admission. Interestingly his creatinine has improved to 1.7. This may be related to low muscle mass. Continue hemodialysis 3 times a week Nephrology was consulted. (4) Anemia: Qualifiers: Anemia type: due to chronic kidney disease Chronic kidney disease stage: stage 5, not on chronic dialysis Qualified Code(s): N18.5 - Chronic kidney disease, stage 5; D63.1 - Anemia in chronic kidney disease Code(s): D64.9 - Anemia, unspecified Status: Acute Assessment and Plan: mild normocytic normochromic anemia with hemoglobin of 11.1 on admission. Check iron profile. Given Epogen during dialysis. (5) Chronic kidney disease-mineral and bone disorder: Code(s): N18.9 - Chronic kidney disease, unspecified; E83.9 - Disorder of mineral metabolism, unspecified; M89.9 - Disorder of bone, unspecified Status: Acute Assessment and Plan: Send vitamin D, PTH and phosphorous level. Currently patient is on calcium carbonate. (6) Ischemic cardiomyopathy: Code(s): I25.5 - Ischemic cardiomyopathy Status: Acute Assessment and Plan: currently asymptomatic; no chest pain. Stable Continue home meds (7) Below-knee amputation of right lower extremity: Code(s): S88.111A - Complete traumatic amputation at level between knee and ankle, right lower leg, initial encounter Status: Acute Assessment and Plan: Fall precautions. Physical therapy and occupational therapy. (8) Combined congestive systolic and diastolic heart failure: Qualifiers: Heart failure chronicity: acute on chronic Qualified Code(s): I50.43 - Acute on chronic combined systolic (congestive) and diastolic (congestive) heart failure Code(s): I50.40 - Unspecified combined systolic (congestive) and diastolic (congestive) heart failure Status: Acute Assessment and Plan: Patient appears relatively euvolemic Daily weight Daily intake and output Continue to monitor (9) CAD (coronary artery disease): Qualifiers: Coronary Disease-Associated Artery/Lesion type: [place] artery [place] vs. transplanted heart: [place] heart Associated angina: without angina Qualified Code(s): I25.10 - Atherosclerotic heart disease of [place] coronary artery without angina pectoris Code(s): I25.10 - Atherosclerotic heart disease of [place] coronary artery without angina pectoris Status: Acute Assessment and Plan: Stable Continue home meds (10) Insulin dependent diabetes mellitus: Status: Chronic Assessment and Plan: Accu-Cheks AC and HS Continue insulin sliding scale Subjective Date/time seen: 08/02/21 08:44 This is a 45-year-old male with past medical history significant for insulin dependent diabetes mellitus, hypertension, end-stage renal disease on hemodialysis, peripheral diabetic neuropathy, right BKA, left diabetic foot, patient is living in a long-term. His brother in today for evaluation of pain in the sacral area patient has a decubitus ulcer that has been getting wound car
[2021-08-02] MEDS: glipiZIDE 5 MG TABLET 10 MG PO (09:21)
[2021-08-02] MEDS: amLODIPine BESYLATE 5 MG TABLET 10 MG PO (09:22)
[2021-08-02] MEDS: ISOSORBIDE MONONITRATE 60 MG TAB.ER.24H PO (09:22)
[2021-08-02] MEDS: ASPIRIN 81 MG CHEWABLE TABLET PO (09:22)
[2021-08-02] MEDS: BUMETANIDE 1 MG TABLET PO ×2 (09:22→16:30)
[2021-08-02] MEDS: METOPROLOL TARTRATE 50 MG TAB PO ×2 (09:22→21:33)
[2021-08-02] MEDS: ATORVASTATIN 40 MG TABLET PO (09:23)
[2021-08-02] MEDS: lisinopriL 20 MG TABLET PO (09:23)
--- NOTE | 2021-08-02 09:25 | PM.CNNEP ---
Assessment and Plan Assessment and plan (1) End stage renal disease: Code(s): N18.6 - End stage renal disease Status: Chronic Assessment and Plan: the patient has end-stage renal disease. He gets dialysis 3 days a week on Tuesdays and Saturdays. He will get a dialysis on Tuesday. He has been doing well on the treatments. Not much weight gain. His potassium has been pretty good. He has been taking his medications we will check on a phosphorus and see how he is doing there. He does not look volume overloaded. I think he can wait till Tuesday to get his dialysis. (2) Decubitus ulcer of sacral region, unstageable: Code(s): L89.150 - Pressure ulcer of sacral region, unstageable Status: Acute Assessment and Plan: the patient has a decubitus ulcer. Apparently the CT shows some concern for an abscess. Dr. Tilley will be looking at this. He has no fevers or chills and his white count is okay. (3) EPO-resistant anemia: Code(s): D63.1 - Anemia in chronic kidney disease Status: Acute Assessment and Plan: The patient has a hemoglobin of 11. Will hold off on the EPO for now. (4) Acute combined systolic and diastolic CHF, NYHA class 1: Code(s): I50.41 - Acute combined systolic (congestive) and diastolic (congestive) heart failure Status: Acute Assessment and Plan: The patient has congestive heart failure. This is well compensated currently. He has hyperlipidemia and is on atorvastatin from before he started dialysis. (5) Hypertension: Qualifiers: Hypertension type: unspecified Qualified Code(s): I10 - Essential (primary) hypertension Code(s): I10 - Essential (primary) hypertension Status: Acute Assessment and Plan: His blood pressure is well controlled right now. He is currently on amlodipine furosemide lisinopril and metoprolol. (6) Insulin dependent diabetes mellitus: Status: Chronic Assessment and Plan: He is on Accu-Cheks and sliding-scale insulin. Is also on oral agents. (7) Renal osteodystrophy: Code(s): N25.0 - Renal osteodystrophy Status: Acute History of Present Illness Reason for Consult Consult date: 08/02/21 Chief Complaint Chief complaint: sacral osteomyelitis, sacral abscess History of Present Illness Narrative: Gustavo is a very pleasant 45-year-old gentleman who has multiple medical problems including end-stage renal disease on dialysis 3 times a week, hypertension, diabetes, peripheral neuropathy, decubitus ulcer, diverticulosis, anemia, renal osteodystrophy, mitral regurgitation, congestive heart failure. The patient has been living in a [facility] and going to dialysis 3 times a week using a Rick lift for aid in transferring to the dialysis chair. he has been doing well on dialysis. His blood pressures have been good. He has been taking his medications. his weight gains have been pretty good. He apparently has been eating well also. He has a decubitus ulcer. He constantly stays off of this because of pain. Apparently he told the [facility] that he had more pain so they sent him to the ER. In the ER he was evaluated. He had a CT scan which showed sacral decubitus phlegmon possible abscess and possible osteomyelitis. So he is admitted to the hospital. Dr. Tilley has been consulted and will be looking at him today. The patient denies any chest pain or shortness of breath. He has no itching. He is hungry. Review of Systems Constitutional: Constitutional: Reports no additional constitutional complaints Eyes: Eyes: Reports no additional eye complaints ENT: Reports system reviewed and no additional complaints, except as documented Cardiovascular: Cardiovascular: Reports no additional cardiovascular complaints Respiratory: Respiratory: Reports no additional respiratory complaints Gastrointestinal: Gastrointestin
[2021-08-02 11:59] LABS: Glucose Point of Care 95 mg/dl (65-105)
[2021-08-02 16:46] LABS: Glucose Point of Care 87 mg/dl (65-105)
[2021-08-02 21:15] LABS: Glucose Point of Care 106 mg/dl (65-105)
--- NOTE | 2021-08-02 22:02 | P.OP_ITS ---
Procedure Note - Detailed Date of Procedure 08/02/21 Pre-op Diagnosis sacral osteomyelitis, sacral abscess in the upper end of a sacral decubitus ulcer Post-op Diagnosis same Procedure Performed at side excision on debridement of subcutaneous soft tissue and tendon overlying the sacrum. ( No bone excised0. Surgeon Mike Tilley MD [employer], patient's floor nurse. Anesthesia none Indications patient presented to the emergency room last evening. He complained of drainage and a foul odor from his known sacral decubitus. Apparently inspection was done at his [facility] care unit and there was noted to be apparent infection and necrotic tissue at its upper end. Subsequently CT scan done by the emergency room physician showed suspicion for necrosis down to the bone and possibly some signs of sacrococcygeal osteomyelitis. Findings Upon close inspection there was approximately a 4 x 2 cm area of necrotic grayish yellow tissue adherent to the upper end and extending up under normal skin in a cephalad direction at the upper end of the patient's current sacral decubitus wound. Description of Procedure After obtaining verbal and written consent from the patient and including written consent from his POA his cousin Teetee we proceeded to plan for our procedure. I answered his questions through an legislative analyst on the [employer] system. Following this with the patient turned far on his right side with exposure of the sacral area were carefully geraldo 8 have stroke gloves and with a mask and hat on carefully inspected the sacral wound Betadine was used to cleanse the skin around the wound. A suture removal kit was opened and using the forceps and scissors from this I excised an approximately 4 by 2 cm area of thick spongy soft stringy grayish white 2 issue which I believe was subcutaneous fat and some underlying tendon overlying his coccyx and lower sacral area. The excess this extended underneath some normal appearing skin at the upper end of his oval shaped sacral decubitus wound. One could probe approximately 4 cm superior to the opening of the skin at this area and there was some cloudy yellowish exudate after I started excising the upper part of this. A swab culture was obtained of this fluid sent for Gram stain, aerobic and anaerobic C&S. A little bit more of the yellowish adherent tissue was excised from up underneath this skin tunnel then we applied silver gel to a 4 x 4 and inserted this up into this tunneled area. Applied some more silver gel directly in the current wound laid this 4 x 4 in their late a folded 4 x 4 over this and then we applied a sacral Mepilex for the final dressing. Patient tolerated procedure well did not needed local anesthetic although we were prepared to give it. Was minimal if any blood loss and I did not need to use either silver nitrate or and L cautery that we had prepared to use. Patient stated that he did not feel much pain during the procedure. He understands the wound care nurses will come by to evaluate for possible use of a irrigating or regular wound VAC tomorrow. Implants none Estimated Blood Loss 2 Drains No Packing Yes ( Sterile 4 x 4 gauze impregnated with silver gel) Pathology other ( swab culture for Gram stain, aerobic anaerobic C&S.) Complications No immediate complications Condition stable Disposition no change
--- NOTE | 2021-08-02 22:18 | PM.CNGS ---
Assessment and Plan Assessment and plan (1) Decubitus ulcer of sacral region, unstageable: Onset Date: ~05/2021 Code(s): L89.150 - Pressure ulcer of sacral region, unstageable Status: Acute Assessment and Plan: Patient returns with apparent worsening of a sacral decubitus overlying the sacrum and coccyx. With the finding of possible osteomyelitis on his CT I suggested that he be admitted started on antibiotics and then have debridement of any necrotic tissue present. I examined today and proceeded to a bedside debridement. There is tunneling Um under the upper rim of the current sacral decubitus wound and this undermines the skin of overlying the mid sacrum for about 4 cm. (2) Acute osteomyelitis of sacrum: Code(s): M46.28 - Osteomyelitis of vertebra, sacral and sacrococcygeal region Status: Acute Assessment and Plan: See CT report of the abdomen and pelvis from 08/01/2021. His suggest invasion of the periosteum I believe of the coccyx and the sacrum. 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 Ferrera the hospitalist. History of Present Illness Consult details Consult date: 08/02/21 Reason for consult: wound care Requesting physician: Fidelina Tamayo MD Narrative: This is a 45-year-old Italian Am male with past medical history significant for insulin dependent diabetes mellitus, hypertension, fairly severe CHF, end-stage renal disease on hemodialysis, peripheral diabetic neuropathy, right BKA, and Hx of a left diabetic foot ulcer,, The patient is living in a long-term. HE was brought in to [place] for evaluation of pain in the sacral area. The patient has a known sacral decubitus ulcer that has been getting wound care at the facility, however the wound has gotten worse with purulent malodorous discharge and pain. Patient has been going to his dialysis treatments on overall his been doing fairly well. He denies any fevers, any rigors , chills ,or any nausea, any vomiting ,any diarrhea. He says he has had good appetite, no cough, no shortness of breath. In emergency room patient was found to have the known decubitus ulcer in the sacral area but with malodorous discharge and surrounding erythema and swelling andit's upper end. Preliminary workup was significant for CT of abdomen and pelvis showing a sacral decubitus ulcer w nearby, phlegmon and possibly infected tissue in are tunnelling cephalad to the current opening with development of sacrococcygeal bone erosion,poos osteomyelitis by the CT. There had shane improvement in the pleural effusions and atelectasis. Ramirez noted in position . Decision has been made to admit the patient for further evaluation management and treatment. Review of Systems Review of Systems: All systems reviewed & are unremarkable except as noted in HPI and below (HPI) Constitutional: Constitutional: Reports as per HPI, Denies chills, Reports fatigue, Denies fever(s) and Reports lethargy Eyes: Eyes: Reports loss of vision ( Patient has had problems with diabetic retinopathy.) ENT: Reports Normal hearing present and Denies dizziness Cardiovascular: Cardiovascular: Reports no additional cardiovascular complaints, Denies chest pain and Denies irregular heart rhythm Respiratory: Respiratory: Reports no additional respirato
[2021-08-03 05:00] VITALS: BP 162/64; PULSE 65; RESP 16; TEMP 36.7; O2SAT 100
[2021-08-03 06:43] LABS: Anion Gap 5 mmol/L (8-16); Blood Urea Nitrogen 42 mg/dL (9-20); Calcium 8.3 mg/dL (8.4-10.2); Carbon Dioxide 28 mmol/L (22-30); Chloride 98 mmol/L (98-107); Estimated CRCL calculation 28 ml/min; Estimated Glomerular Filt Rate 28; Glucose 68 mg/dL (65-110); Phosphorus 4.1 mg/dL (2.5-4.5); Potassium 2.9 mmol/L (3.4-5.0); Sodium 131 mmol/L (137-145)
[2021-08-03 06:55] LABS: Vitamin D 25 Hydroxy < 12.8 ng/mL
[2021-08-03 07:56] LABS: Glucose Point of Care 78 mg/dl (65-105)
--- NOTE | 2021-08-03 07:57 | PCWOUND ---
wocn note Received referral to see patient for abscess. Patient had surgery for abscess. will not follow at this time.
[2021-08-03] MEDS: amLODIPine BESYLATE 5 MG TABLET 10 MG PO (08:05)
[2021-08-03] MEDS: ATORVASTATIN 40 MG TABLET PO (08:06)
[2021-08-03] MEDS: FUROSEMIDE 40 MG TABLET PO (08:06)
[2021-08-03] MEDS: METOPROLOL TARTRATE 50 MG TAB PO ×2 (08:06→21:21)
[2021-08-03] MEDS: ASPIRIN 81 MG CHEWABLE TABLET PO (08:06)
[2021-08-03] MEDS: BUMETANIDE 1 MG TABLET PO ×2 (08:06→17:11)
[2021-08-03] MEDS: lisinopriL 20 MG TABLET PO (08:06)
[2021-08-03] MEDS: ISOSORBIDE MONONITRATE 60 MG TAB.ER.24H PO (08:06)
[2021-08-03] MEDS: glipiZIDE 5 MG TABLET 10 MG PO (08:07)
--- NOTE | 2021-08-03 09:34 | PC.NURSE ---
Patients blood glucose has been running on the lower side and MD was called due to the patient taking glipizide, MD stated she was going to cut the dose in half and only to give the patient 5 mg. Patient was given the 5 mg dose as instructed MD later put in a order to hold the medication instead of cutting the dose in half.
--- NOTE | 2021-08-03 10:22 | PM.PNGS ---
Progress Note: A&P Assessment and Plan (1) Decubitus ulcer of sacral region, unstageable: Onset Date: ~05/2021 Code(s): L89.150 - Pressure ulcer of sacral region, unstageable Status: Acute Assessment and Plan: S/p bedside excisional debridement by Dr. Tilley yesterday. Wound cultures pending. Sacral decubitus today with no purulent drainage or significant necrotic tissue following debridement. Wound care was consulted. Will initiate wound VAC therapy. Continue IV antibiotics. (2) Acute osteomyelitis of sacrum: Code(s): M46.28 - Osteomyelitis of vertebra, sacral and sacrococcygeal region Status: Acute Assessment and Plan: CT suggests development of sacrococcygeal erosion, osteomyelitis. WBC normal, afebrile. Continue IV antibiotics. Blood cultures pending. See plan above. (3) End stage renal disease: Code(s): N18.6 - End stage renal disease Status: Chronic Assessment and Plan: Nephrology following. Possibly planning for dialysis tomorrow. Additional Plan Discussed patient's case and plan with Dr. Tilley. Subjective Subjective Date/Time Seen: 08/03/21 10:00 Post Op day: 1 (Excisional debridement of sacral decubitus ulcer with drainage of sacral abscess) Patient reports: no new complaints and afebrile Interval history: The patient was seen and examined with the wound care nurses this morning. He has not specific complaints at the time of my exam and appears comfortable lying in bed when entering the room. He denies any pain. Exam Const: General: comfortable, no acute distress, alert and awake Orientation/consciousness: oriented to person and oriented to place Skin: Other: Sacral decubitus ulcer with pink granulation tissue noted in the visible wound bed, firm wound base, no significant necrotic tissue or any purulent drainage noted even in the area of tunneling cephalad. Wound VAC placed. Neuro: General: moves all extremities Speech: normal speech Gait exam (Neuro): Unable to assess gait Extrem: General: amputation noted Below the knee: right (healed) Psych: Mental Status: mental status grossly normal Insight: Fair insight present (Psych) Judgement: Fair judgement present (Psych) Objective Data Vital Signs Vital Signs: Vital Signs - 24 hr 08/02/21 10:43 08/02/21 15:40 08/02/21 19:00 Temperature 97.8 F 97.6 F 98.0 F Pulse Rate 65 86 86 Respiratory Rate 22 H 24 H 20 Blood Pressure 147/55 H 128/57 L 131/56 L Pulse Oximetry 100 100 99 08/02/21 21:33 08/02/21 22:00 08/03/21 05:00 Temperature 98.3 F 98.0 F Pulse Rate 88 88 65 Respiratory Rate 16 16 Blood Pressure 144/60 H 162/64 H Pulse Oximetry 100 100 Intake/Output Intake/Output: Intake & Output 07/31/21 08/01/21 08/02/21 08/03/21 23:59 23:59 23:59 23:59 Intake Total 50 1100 810 Output Total 1200 550 Balance 50 -100 260 Meds/Results Medications: Active Medications Generic Name Dose Route Start Last Admin Trade Name Freq PRN Reason Stop Dose Admin Acetaminophen 650 mg 08/01/21 23:15 Acetaminophen 325 Mg Tablet PO Q4H PRN Mild Pain (1-3) or Fever Hydrocodone Bitart/Acetaminophen 1 tab 08/01/21 23:15 Hydrocodone/Acetaminophen (*Crx) 5-325 Mg Tablet PO Q4H PRN Pain Rated 4-6 Amlodipine Besylate 10 mg 08/02/21 09:00 08/03/21 08:05 Amlodipine Besylate 5 Mg Tablet PO 10 mg DAILY GEE Administration Aspirin 81 mg 08/02/21 08:00 08/03/21 08:06 Aspirin 81 Mg Chewable Tablet PO 81 mg DAILY@0800 GEE Administration Atorvastatin Calcium 40 mg 08/02/21 09:00 08/03/21 08:06 Atorvastatin 40 Mg Tablet PO 40 mg DAILY GEE Administration Bumetanide 1 mg 08/02/21 09:00 08/03/21 08:06 Bumetanide 1 Mg Tablet PO 1 mg BID GEE Administration Calcium Carbonate 200 mg 08/02/21 03:12 Calcium Carbonate (Tums) 500 Mg (200 Mg Elemental) PO Q6H PRN Indigestion, nausea Dextrose 12.5 gm 08/02/21 04:3
[2021-08-03 11:55] LABS: Glucose Point of Care 107 mg/dl (65-105)
[2021-08-03 13:30] VITALS: BMI 26.9
[2021-08-03] MEDS: POTASSIUM CHLORIDE 20 MEQ PACKET (FOR LIQUID) PO (13:49)
--- NOTE | 2021-08-03 14:16 | PM.IMPN ---
Progress Note: A&P Assessment and Plan (1) Acute osteomyelitis of sacrum: Code(s): M46.28 - Osteomyelitis of vertebra, sacral and sacrococcygeal region Status: Acute Assessment and Plan: This has been a chronic issue for him. Patient is confined to his bed, which is certainly making this worse. On admission he was appropriately started on Zosyn and vancomycin. Surgery has been consulted, s/p debridement 08/02/2021. Blood cultures are pending at the time of this dictation. (2) Abscess of sacrum: Code(s): M46.28 - Osteomyelitis of vertebra, sacral and sacrococcygeal region Status: Acute Assessment and Plan: Surgery consulted. Patient underwent bedside debridement. Wound culture sample sent. Consult Infectious Diseases. Local care. wound care. Supportive care (3) End stage renal disease: Code(s): N18.6 - End stage renal disease Status: Chronic Assessment and Plan: Patient was declared ESRD during his last admission. Interestingly his creatinine has improved to 1.7. This may be related to low muscle mass. Continue hemodialysis 3 times a week; plan for hemodialysis tomorrow. Mild hypokalemia at 2.9 was supplemented stated prudently with 20 meq potassium PO. Nephrology was consulted. (4) Anemia: Qualifiers: Anemia type: due to chronic kidney disease Chronic kidney disease stage: stage 5, not on chronic dialysis Qualified Code(s): N18.5 - Chronic kidney disease, stage 5; D63.1 - Anemia in chronic kidney disease Code(s): D64.9 - Anemia, unspecified Status: Acute Assessment and Plan: mild normocytic normochromic anemia with hemoglobin of 11.1 on admission. Check iron profile. Given Epogen during dialysis. (5) Chronic kidney disease-mineral and bone disorder: Code(s): N18.9 - Chronic kidney disease, unspecified; E83.9 - Disorder of mineral metabolism, unspecified; M89.9 - Disorder of bone, unspecified Status: Acute Assessment and Plan: Send vitamin D level is < 12. give ergocalciferol weekly X 8 weeks. Send PTH Currently patient is on calcium carbonate. (6) Ischemic cardiomyopathy: Code(s): I25.5 - Ischemic cardiomyopathy Status: Acute Assessment and Plan: currently asymptomatic; no chest pain. Stable Continue home meds (7) Below-knee amputation of right lower extremity: Code(s): S88.111A - Complete traumatic amputation at level between knee and ankle, right lower leg, initial encounter Status: Acute Assessment and Plan: Fall precautions. Physical therapy and occupational therapy. (8) Combined congestive systolic and diastolic heart failure: Qualifiers: Heart failure chronicity: acute on chronic Qualified Code(s): I50.43 - Acute on chronic combined systolic (congestive) and diastolic (congestive) heart failure Code(s): I50.40 - Unspecified combined systolic (congestive) and diastolic (congestive) heart failure Status: Acute Assessment and Plan: Patient appears relatively euvolemic Daily weight Daily intake and output Continue to monitor (9) CAD (coronary artery disease): Qualifiers: Coronary Disease-Associated Artery/Lesion type: [place] artery [place] vs. transplanted heart: [place] heart Associated angina: without angina Qualified Code(s): I25.10 - Atherosclerotic heart disease of [place] coronary artery without angina pectoris Code(s): I25.10 - Atherosclerotic heart disease of [place] coronary artery without angina pectoris Status: Acute Assessment and Plan: Stable Continue home meds (10) Insulin dependent diabetes mellitus: Status: Chronic Assessment and Plan: Accu-Cheks AC and HS Continue insulin sliding scale Blood glucose was 68 on today's chemistry. Glipizide has been held. Accu-Chek in the 78-107 range. Subjective Date/time seen: 08/03/21 07:16 S: Patient examined at the bedside.
[2021-08-03 14:25] VITALS: BP 127/65; PULSE 70; RESP 18; TEMP 36.4; O2SAT 100
--- NOTE | 2021-08-03 16:19 | PM.PNNEP ---
Progress Note: A&P Assessment and Plan (1) End stage renal disease: Code(s): N18.6 - End stage renal disease Status: Chronic Assessment and Plan: plan HD tomorrow and continue outpatient schedule of T/T/S follow electrolytes, volume status, and clearance (2) Decubitus ulcer of sacral region, unstageable: Onset Date: ~05/2021 Code(s): L89.150 - Pressure ulcer of sacral region, unstageable Status: Acute Assessment and Plan: imaging suggest abscess and possible osteomyelitis s/p bedside excisional debridement by Dr. Tilley 08/02/[address] follow culture date on antibiotics (3) Combined systolic and diastolic congestive heart failure: Code(s): I50.40 - Unspecified combined systolic (congestive) and diastolic (congestive) heart failure Status: Chronic Assessment and Plan: appears compensated at this time fluid removal with dialysis to maintain euvolemia (4) Hypertension: Qualifiers: Hypertension type: unspecified Qualified Code(s): I10 - Essential (primary) hypertension Code(s): I10 - Essential (primary) hypertension Status: Acute Assessment and Plan: reasonable control at this time continue home medications follow trend of hemodynamics (5) Anemia: Qualifiers: Anemia type: due to chronic kidney disease Chronic kidney disease stage: stage 5, not on chronic dialysis Qualified Code(s): N18.5 - Chronic kidney disease, stage 5; D63.1 - Anemia in chronic kidney disease Code(s): D64.9 - Anemia, unspecified Status: Chronic Assessment and Plan: due to ESRD Eopogen with HD follow trend of H/H (6) Insulin dependent diabetes mellitus: Status: Chronic Assessment and Plan: follow accuchecks on SSI and glipizide Will continue to follow. Subjective Date/time seen: 08/03/21 16:19 Chart reviewed - assuming care from Dr. Johnson; no apparent distress voiced at the time of my visit; eating and drinking okay; no complaints of pain; no events overnight or earlier this morning; overall, he states he is feeling reasonably well. Exam Narrative: General: WD/WN male in NAD Heart: normal S1 and S2; no rub Lungs: clear to auscultation Abdomen: soft, nontender, nondistended, positive bowel sounds Extremities: no cyanosis or clubbing; no edema Skin: warm and dry Objective Data Vital Signs Vital Signs: Vital Signs Temp Pulse Resp BP Pulse Ox 08/03/21 14:25 36.4 C 70 18 127/65 100 08/03/21 05:00 36.7 C 65 16 162/64 H 100 08/02/21 22:00 36.8 C 88 16 144/60 H 100 08/02/21 21:33 88 08/02/21 19:00 36.7 C 86 20 131/56 L 99 Intake/Output Intake/Output: Intake & Output 07/31/21 08/01/21 08/02/21 08/03/21 23:59 23:59 23:59 23:59 Intake Total 50 1100 1880 Output Total 1200 1125 Balance 50 -100 755 Meds/Results Medications: Active Medications Generic Name Dose Route Start Last Admin Trade Name Freq PRN Reason Stop Dose Admin Acetaminophen 650 mg 08/01/21 23:15 Acetaminophen 325 Mg Tablet PO Q4H PRN Mild Pain (1-3) or Fever Hydrocodone Bitart/Acetaminophen 1 tab 08/01/21 23:15 Hydrocodone/Acetaminophen (*Crx) 5-325 Mg Tablet PO Q4H PRN Pain Rated 4-6 Amlodipine Besylate 10 mg 08/02/21 09:00 08/03/21 08:05 Amlodipine Besylate 5 Mg Tablet PO 10 mg DAILY GEE Administration Aspirin 81 mg 08/02/21 08:00 08/03/21 08:06 Aspirin 81 Mg Chewable Tablet PO 81 mg DAILY@0800 GEE Administration Atorvastatin Calcium 40 mg 08/02/21 09:00 08/03/21 08:06 Atorvastatin 40 Mg Tablet PO 40 mg DAILY GEE Administration Bumetanide 1 mg 08/02/21 09:00 08/03/21 17:11 Bumetanide 1 Mg Tablet PO 1 mg BID GEE Administration Calcium Carbonate 200 mg 08/02/21 03:12 Calcium Carbonate (Tums) 500 Mg (200 Mg Elemental) PO Q6H PRN Indigestion, adelina
[2021-08-03 17:06] LABS: Glucose Point of Care 58 mg/dl (65-105)
[2021-08-03 17:06] LABS: Glucose Point of Care 80 mg/dl (65-105)
[2021-08-03] MEDS: ERGOCALCIFEROL 50,000 UNIT CAPSULE 50000 UNITS PO (17:11)
[2021-08-03 20:10] VITALS: BP 134/53; PULSE 76; RESP 20; TEMP 36.2; O2SAT 100
[2021-08-03 20:29] LABS: Hematocrit 28.6 % (42.0-52.0); Hemoglobin 9.2 g/dL (14.0-18.0); Mean Corpuscular HGB Conc 32.2 g/dl (32-36); Mean Corpuscular Hemoglobin 27.6 pg (26-34); Mean Corpuscular Volume 85.9 fl (80-100); Platelet Count Result 244 k/mm3 (150-375); Red Blood Count 3.33 M/mm3 (4.6-6.20); Red Cell Distribution Width 14.2 % (11.5-14.5); White Blood Count 8.4 K/mm3 (4.5-10.0)
[2021-08-03 21:21] VITALS: PULSE 76
[2021-08-04] VITALS (17 sets, daily range): BP systolic 122–173; BP diastolic 53–90; PULSE 64–98; RESP 16–18; TEMP 35.3–36.9; O2SAT 100
[2021-08-04 00:33] LABS: Glucose Point of Care 148 mg/dl (65-105)
[2021-08-04 06:04] LABS: Parathyroid Intact 87.5 pg/mL (7.5-53.5)
[2021-08-04 07:42] LABS: Glucose Point of Care 63 mg/dl (65-105)
[2021-08-04 08:06] LABS: Glucose Point of Care 93 mg/dl (65-105)
--- NOTE | 2021-08-04 10:48 | PM.PNNEP ---
Progress Note: A&P Assessment and Plan (1) End stage renal disease: Code(s): N18.6 - End stage renal disease Status: Chronic Assessment and Plan: plan HD later today and continue outpatient schedule of T/T/S follow electrolytes, volume status, and clearance (2) Decubitus ulcer of sacral region, unstageable: Onset Date: ~05/2021 Code(s): L89.150 - Pressure ulcer of sacral region, unstageable Status: Acute Assessment and Plan: imaging suggest abscess and possible osteomyelitis s/p bedside excisional debridement by Dr. Tilley 08/02/[address] culture data noted on antibiotics Infectious Disease consultation (with regard to antibiotic therapy) (3) Combined systolic and diastolic congestive heart failure: Code(s): I50.40 - Unspecified combined systolic (congestive) and diastolic (congestive) heart failure Status: Chronic Assessment and Plan: appears compensated at this time fluid removal with dialysis to maintain euvolemia (4) Hypertension: Qualifiers: Hypertension type: unspecified Qualified Code(s): I10 - Essential (primary) hypertension Code(s): I10 - Essential (primary) hypertension Status: Acute Assessment and Plan: reasonable control at this time continue home medications follow trend of hemodynamics (5) Anemia: Qualifiers: Anemia type: due to chronic kidney disease Chronic kidney disease stage: stage 5, not on chronic dialysis Qualified Code(s): N18.5 - Chronic kidney disease, stage 5; D63.1 - Anemia in chronic kidney disease Code(s): D64.9 - Anemia, unspecified Status: Chronic Assessment and Plan: due to ESRD Eopogen with HD follow trend of H/H (6) Insulin dependent diabetes mellitus: Status: Chronic Assessment and Plan: follow accuchecks on SSI and glipizide Will continue to follow. Subjective Date/time seen: 08/04/21 10:48 No new issues or problems to report at this time; due for dialysis this afternoon; no apparent distress noted; no other events overnight or earlier this AM; no other acute complaints voiced. Exam Narrative: General: WD/WN male in NAD Heart: normal S1 and S2; no rub Lungs: clear to auscultation Abdomen: soft, nontender, nondistended, positive bowel sounds Extremities: no cyanosis or clubbing; no edema Skin: warm and intact Objective Data Vital Signs Vital Signs: Vital Signs Temp Pulse Resp BP Pulse Ox 08/04/21 04:46 36.6 C 66 18 136/53 L 100 08/03/21 21:21 76 08/03/21 20:10 36.2 C L 76 20 134/53 L 100 08/03/21 14:25 36.4 C 70 18 127/65 100 Intake/Output Intake/Output: Intake & Output 08/01/21 08/02/21 08/03/21 08/04/21 23:59 23:59 23:59 23:59 Intake Total 50 1100 1930 807 Output Total 1200 1125 500 Balance 50 -100 805 307 Meds/Results Medications: Active Medications Generic Name Dose Route Start Last Admin Trade Name Freq PRN Reason Stop Dose Admin Acetaminophen 650 mg 08/01/21 23:15 Acetaminophen 325 Mg Tablet PO Q4H PRN Mild Pain (1-3) or Fever Hydrocodone Bitart/Acetaminophen 1 tab 08/01/21 23:15 Hydrocodone/Acetaminophen (*Crx) 5-325 Mg Tablet PO Q4H PRN Pain Rated 4-6 Amlodipine Besylate 10 mg 08/02/21 09:00 08/03/21 08:05 Amlodipine Besylate 5 Mg Tablet PO 10 mg DAILY GEE Administration Aspirin 81 mg 08/02/21 08:00 08/03/21 08:06 Aspirin 81 Mg Chewable Tablet PO 81 mg DAILY@0800 GEE Administration Atorvastatin Calcium 40 mg 08/02/21 09:00 08/03/21 08:06 Atorvastatin 40 Mg Tablet PO 40 mg DAILY GEE Administration Calcium Carbonate 200 mg 08/02/21 03:12 Calcium Carbonate (Tums) 500 Mg (200 Mg Elemental) PO Q6H PRN Indigestion, nausea Dextrose 12.5 gm 08/02/21 04:33 Dextrose 50% 25 Gm/50 Ml Syringe IV PUSH PRN PRN Hypoglycemia Protocol
--- NOTE | 2021-08-04 11:17 | PM.IMPN ---
Progress Note: A&P Assessment and Plan (1) Acute osteomyelitis of sacrum: Code(s): M46.28 - Osteomyelitis of vertebra, sacral and sacrococcygeal region Status: Acute Assessment and Plan: This has been a chronic issue for him. Patient is confined to his bed, which is certainly making this worse. On admission he was appropriately started on Zosyn and vancomycin. Surgery has been consulted; Patient underwent a surgical debridement 08/02/2021. Blood cultures are growing coag-negative staph in 1/2 bottles (2) Abscess of sacrum: Code(s): M46.28 - Osteomyelitis of vertebra, sacral and sacrococcygeal region Status: Acute Assessment and Plan: currently improved being on IV antibiotics.Surgery consulted. Patient underwent bedside debridement. Wound culture sample sent. Consult Infectious Diseases. Local care. wound care. Supportive care (3) End stage renal disease: Code(s): N18.6 - End stage renal disease Status: Chronic Assessment and Plan: Patient was declared ESRD during his last admission. Interestingly his creatinine has improved to 1.7. This may be related to low muscle mass. Continue hemodialysis 3 times a week; plan for hemodialysis tomorrow. Mild hypokalemia at 2.9 was supplemented prudently with 20 meq potassium PO once. Please home blood pressure medication prior to dialysis to over the intra dialytic hypotension. Follow-up nephrology recommendations. (4) Anemia: Qualifiers: Anemia type: due to chronic kidney disease Chronic kidney disease stage: stage 5, not on chronic dialysis Qualified Code(s): N18.5 - Chronic kidney disease, stage 5; D63.1 - Anemia in chronic kidney disease Code(s): D64.9 - Anemia, unspecified Status: Acute Assessment and Plan: mild normocytic normochromic anemia with hemoglobin of 11.1 on admission. Patient drifted slowly to 9.2, which was expected in the setting of acute infection. Check iron profile. Given Epogen during dialysis within hemoglobin goal of 10. (5) Chronic kidney disease-mineral and bone disorder: Code(s): N18.9 - Chronic kidney disease, unspecified; E83.9 - Disorder of mineral metabolism, unspecified; M89.9 - Disorder of bone, unspecified Status: Acute Assessment and Plan: Send vitamin D level is < 12. Continue ergocalciferol weekly X 8 weeks. PTH 87.5 Currently patient is on calcium carbonate. (6) Ischemic cardiomyopathy: Code(s): I25.5 - Ischemic cardiomyopathy Status: Acute Assessment and Plan: currently asymptomatic; no chest pain. Stable Continue home meds (7) Below-knee amputation of right lower extremity: Code(s): S88.111A - Complete traumatic amputation at level between knee and ankle, right lower leg, initial encounter Status: Acute Assessment and Plan: Fall precautions. Physical therapy and occupational therapy. (8) Combined congestive systolic and diastolic heart failure: Qualifiers: Heart failure chronicity: acute on chronic Qualified Code(s): I50.43 - Acute on chronic combined systolic (congestive) and diastolic (congestive) heart failure Code(s): I50.40 - Unspecified combined systolic (congestive) and diastolic (congestive) heart failure Status: Acute Assessment and Plan: Patient appears relatively euvolemic Daily weight Daily intake and output Continue to monitor (9) CAD (coronary artery disease): Qualifiers: Coronary Disease-Associated Artery/Lesion type: [place] artery [place] vs. transplanted heart: [place] heart Associated angina: without angina Qualified Code(s): I25.10 - Atherosclerotic heart disease of [place] coronary artery without angina pectoris Code(s): I25.10 - Atherosclerotic heart disease of [place] coronary artery without angina pectoris Status: Acute Assessment and Plan: Stable Continue home meds (10) Insulin dependent diabete
[2021-08-04 11:24] LABS: Glucose Point of Care 135 mg/dl (65-105)
--- NOTE | 2021-08-04 14:03 | WPDINFPN2 ---
Progress Note: A&P Assessment and Plan (1) Acute osteomyelitis of sacrum: Code(s): M46.28 - Osteomyelitis of vertebra, sacral and sacrococcygeal region Status: Acute Assessment and Plan: 1. Acute OM of sacrum 2. CRF REC Cefepime at end of each dialysis session, also oral clindamycin, both through 08/30/21. Subjective Date/time seen: 08/04/21 14:03 Objective Data Vital Signs Vital Signs: Vital Signs - 24 hr 08/03/21 14:25 08/03/21 20:10 08/03/21 21:21 Temperature 36.4 C 36.2 C L Pulse Rate 70 76 76 Respiratory Rate 18 20 Blood Pressure 127/65 134/53 L Pulse Oximetry 100 100 08/04/21 04:46 Temperature 36.6 C Pulse Rate 66 Respiratory Rate 18 Blood Pressure 136/53 L Pulse Oximetry 100 Intake/Output Intake/Output: Intake & Output 08/01/21 08/02/21 08/03/21 08/04/21 23:59 23:59 23:59 23:59 Intake Total 50 1100 1930 807 Output Total 1200 1125 500 Balance 50 -100 805 307 Meds/Results Medications: Active Medications Generic Name Dose Route Start Last Admin Trade Name Freq PRN Reason Stop Dose Admin Acetaminophen 650 mg 08/01/21 23:15 Acetaminophen 325 Mg Tablet PO Q4H PRN Mild Pain (1-3) or Fever Hydrocodone Bitart/Acetaminophen 1 tab 08/01/21 23:15 Hydrocodone/Acetaminophen (*Crx) 5-325 Mg Tablet PO Q4H PRN Pain Rated 4-6 Amlodipine Besylate 10 mg 08/02/21 09:00 08/03/21 08:05 Amlodipine Besylate 5 Mg Tablet PO 10 mg DAILY GEE Administration Aspirin 81 mg 08/02/21 08:00 08/03/21 08:06 Aspirin 81 Mg Chewable Tablet PO 81 mg DAILY@0800 GEE Administration Atorvastatin Calcium 40 mg 08/02/21 09:00 08/03/21 08:06 Atorvastatin 40 Mg Tablet PO 40 mg DAILY GEE Administration Calcium Carbonate 200 mg 08/02/21 03:12 Calcium Carbonate (Tums) 500 Mg (200 Mg Elemental) PO Q6H PRN Indigestion, nausea Dextrose 12.5 gm 08/02/21 04:33 Dextrose 50% 25 Gm/50 Ml Syringe IV PUSH PRN PRN Hypoglycemia Protocol Epoetin Brayan-epbx 10,000 units 08/04/21 22:46 Epoetin Brayan-Epbx 10,000 Units/Ml Vial IV PUSH 08/04/21 22:47 ONCE ONE Ergocalciferol 50,000 unit 08/03/21 14:50 08/03/21 17:11 Ergocalciferol 50,000 Unit Capsule PO 50,000 unit Mo@0900 GEE Administration Furosemide 40 mg 08/03/21 09:00 08/03/21 08:06 Furosemide 40 Mg Tablet PO 40 mg MoWeFr@0900 GEE Administration Glucagon 1 mg 08/02/21 04:33 Glucagon For Inj 1 Mg Vial IM PRN PRN Hypoglycemia Protocol Glucose 15 gm 08/02/21 04:33 Glucose Oral Gel 15 Gm Of Glucse In 37.5 Gm Tube PO PRN PRN Hypoglycemia Protocol Dextrose 1,000 mls @ 100 mls/hr 08/02/21 04:33 Dextrose 5% 1,000 Ml IVPB PRN PRN Hypoglycemia Protocol Vancomycin HCl 1,000 mg in 250 mls @ 250 mls/hr 08/03/21 07:39 Vancomycin 1,000 Mg/D5w 250 Ml IVPB PRN PRN vancomycin protocol Piperacillin Sod/Tazobactam Sod 2.25 gm in 50 mls @ 100 mls/hr 08/03/21 14:00 08/04/21 06:22 Zosyn 2.25 Gm/D5w 50 Ml IVPB Infused Q8H GEE Infusion Piperacillin Sod/Tazobactam 50 mls @ 100 mls/hr 08/04/21 18:00 Sod 0.75 gm/ Dextrose IVPB TUTHSA@1800 GEE Albumin Human 50 mls @ 999 mls/hr 08/04/21 10:45 Albutein IVPB 09/03/21 10:44 Q10M PRN HYPOTENSION Isosorbide Mononitrate 60 mg 08/02/21 09:00 08/03/21 08:06 Isosorbide Mononitrate 60 Mg Tab.Er.24h PO 60 mg DAILY GEE Administration Lisinopril 20 mg 08/02/21 09:00 08/03/21 08:06 Lisinopril 20 Mg Tablet PO 20 mg QAM GEE Administration Metoprolol Tartrate 50 mg 08/02/21 09:00 08/03/21 21:21 Metoprolol Tartrate 50 Mg Tab PO 50 mg Q12HR GEE Administration Morphine Sulfate 4 mg 08/01/21 23:15 Morphine Sulfate (*Crx) 4 Mg/Ml Inj IV PUSH Q2H PRN Pain Rated 7-10 Ondansetron HCl 4 mg 08/01/21 23:15 Ondansetron Inj 4 Mg/2 Ml Vial IV PUSH Q4H PRN
--- NOTE | 2021-08-04 14:40 | PC.NURSE ---
On 08/04/21, the student, [ Trang Celeste ], provided care and completed [facility] documentation on this patient. I have reviewed the student's documentation and agree with the findings.
--- NOTE | 2021-08-04 15:36 | CONS_ITS ---
DATE OF CONSULTATION: 08/04/2021 REASON FOR CONSULTATION: Osteomyelitis, sacrum. HISTORY OF PRESENT ILLNESS: A 45-year-old male who speaks some Turkish and my Syriac is not of conversant quality. He was here in the hospital early last month with a superficial sacral ulcer, which revealed no evidence of deep space infection. However, he presented back to the hospital 3 days ago with worsening ulcer, he required debridement the following day. He had no bone involvement with infection at the time of operative inspection, but his CT suggested osteomyelitis and consultation requested. He has been on piperacillin since yesterday. No complications since his operative intervention. He continues to be maintained on hemodialysis with a right chest dialysis catheter. No fever, chills, or sweats and no other events here in the hospital. PRESENT MEDICATIONS: List reviewed. No immunosuppressants. HABITS: No tobacco, alcohol, or illicit drugs. ALLERGIES: NONE PERTINENT. PAST MEDICAL HISTORY: Chronic renal failure with associated anemia, cardiomyopathy, heart failure, hypertension, diabetes mellitus, peripheral vascular disease, mitral regurgitation, colon polyp, and right BKA. FAMILY HISTORY: Not pertinent to his present illness. SOCIAL HISTORY: Presently lives in a SNF. Has family locally. No family at the bedside currently. REVIEW OF SYSTEMS: 5-point review otherwise negative. PHYSICAL EXAMINATION: GENERAL: Middle-aged male who appears his actual age, in no acute distress. VITAL SIGNS: Afebrile, 66, 18, 136/53, 100% on room air. SKIN: Warm and dry. No rashes. EENT: The conjunctivae are normal. NECK: No masses or thyromegaly. CHEST: Dialysis catheter in place without overt sign of infection. LUNGS: Clear to auscultation and percussion. CARDIAC: Regular rate and rhythm without murmur or gallop. ABDOMEN: Nontender, soft. No organomegaly. No ascites. EXTREMITIES: Chronic stasis changes, left leg. BKA is without evidence of infection. He has a wound VAC applied to his lower spinal area. LABORATORY DATA: From the OR, no organisms have been isolated yet. Blood culture 1 out of 2 sets coagulase-negative staph similar to prior result from 06/21. White count 8.4, hemoglobin 9.2, platelets are 244. Accu-Cheks variable. BUN 42, creatinine 2.5. RADIOLOGY: Abdomen and pelvic CT from admission showed phlegmon and sacral decubitus with suspicion for erosion at the sacrococcygeal area. Bladder wall thickening. ASSESSMENT: 1. Chronic Ramirez. 2. Decubitus ulcer over the sacrum, previously superficial infection, now with probable osteomyelitis, although not biopsy-proven nor obviously infected at time of operation. Polymicrobial infection is typical. 3. Chronic renal failure. RECOMMENDATIONS: 1. Cefepime at the end of each dialysis along with oral clindamycin, both through August 30 to complete 4 weeks of treatment. 2. Local wound care. 3. Okay with me for discharge planning. 4. Thank you for asking me to see him. NOEMI FALLON M.D. [employer] S[employer]PER D I MT: Jennifer
[2021-08-04] MEDS: SODIUM CHLORIDE 0.9% IV 1,000 ML 999 ML IV CONT (15:43)
[2021-08-04] MEDS: EPOETIN ALFA-EPBX 10,000 UNITS/ML VIAL 10000 UNITS IV PUSH (15:43)
--- NOTE | 2021-08-04 16:23 | PC.NURSE ---
To Dialysis per bed 08/04/21 1400.
[2021-08-04 17:58] LABS: Glucose Point of Care 102 mg/dl (65-105)
[2021-08-04] MEDS: CLINDAMYCIN HCL 150 MG CAP 300 MG PO ×2 (18:05→22:39)
[2021-08-04] MEDS: lisinopriL 20 MG TABLET PO (18:05)
[2021-08-04] MEDS: amLODIPine BESYLATE 5 MG TABLET 10 MG PO (18:05)
[2021-08-04] MEDS: ISOSORBIDE MONONITRATE 60 MG TAB.ER.24H PO (18:05)
[2021-08-04] MEDS: ASPIRIN 81 MG CHEWABLE TABLET PO (18:05)
[2021-08-04] MEDS: ATORVASTATIN 40 MG TABLET PO (18:06)
--- NOTE | 2021-08-04 18:08 | PC.NURSE ---
Returned from Dialysis per bed. 08/04/21 [id number]
[2021-08-04] MEDS: METOPROLOL TARTRATE 50 MG TAB PO (22:39)
[2021-08-05 01:11] LABS: Glucose Point of Care 151 mg/dl (65-105)
[2021-08-05 03:08] VITALS: BP 127/60; PULSE 68; RESP 16; TEMP 36.6; O2SAT 100
[2021-08-05 03:13] LABS: Hemoglobin A1C 6.1 % (<5.7)
[2021-08-05] MEDS: CLINDAMYCIN HCL 150 MG CAP 300 MG PO ×3 (06:33→21:14)
[2021-08-05 08:01] LABS: Glucose Point of Care 173 mg/dl (65-105)
[2021-08-05] MEDS: amLODIPine BESYLATE 5 MG TABLET 10 MG PO (08:38)
[2021-08-05] MEDS: ASPIRIN 81 MG CHEWABLE TABLET PO (08:38)
[2021-08-05] MEDS: ATORVASTATIN 40 MG TABLET PO (08:38)
[2021-08-05] MEDS: ISOSORBIDE MONONITRATE 60 MG TAB.ER.24H PO (08:38)
[2021-08-05] MEDS: lisinopriL 20 MG TABLET PO (08:38)
[2021-08-05 08:39] VITALS: PULSE 68
[2021-08-05] MEDS: FUROSEMIDE 40 MG TABLET PO (08:39)
[2021-08-05] MEDS: METOPROLOL TARTRATE 50 MG TAB PO ×2 (08:39→21:13)
[2021-08-05] MEDS: ACETAMINOPHEN 325 MG TABLET 650 MG PO (08:56)
--- NOTE | 2021-08-05 09:56 | PM.PNGS ---
Progress Note: A&P Assessment and Plan (1) Decubitus ulcer of sacral region, unstageable: Onset Date: ~05/2021 Code(s): L89.150 - Pressure ulcer of sacral region, unstageable Status: Acute Assessment and Plan: S/p bedside excisional debridement by Dr. Tilley 08/02/21 and sacral decubitus is healing well. Granulation tissue is forming and there is no indication for any further surgical intervention at this time. Will continue wound VAC therapy on discharge. Okay to discharge from our standpoint back to the [facility]. Continue IV antibiotics per ID. (2) Acute osteomyelitis of sacrum: Code(s): M46.28 - Osteomyelitis of vertebra, sacral and sacrococcygeal region Status: Acute Assessment and Plan: CT suggests development of sacrococcygeal erosion, osteomyelitis. Continue IV abx per ID. See plan above. (3) End stage renal disease: Code(s): N18.6 - End stage renal disease Status: Chronic Additional Plan Discussed patient's case and plan with Dr. Tilley. Subjective Subjective Date/Time Seen: 08/05/21 09:00 Patient reports: no new complaints and afebrile Interval history: Patient seen and examined with Dr. Tilley and the wound care nurses. No specific complaints from the patient this morning. No issues when talking to nursing. Exam Const: General: comfortable, no acute distress and alert Orientation/consciousness: patient oriented x3 Skin: Other: Sacral decubitus ulcer appears to be healing nicely with granulation tissue forming in the wound bed, there is still a very small area of yellow slough just in the center of the wound, but no purulent drainage or new areas of tunneling. There is a small lesion on the skin just caudal to the wound that has the appearance of a verruca. Neuro: General: moves all extremities and no focal motor deficits Extrem: General: no clubbing, cyanosis or edema, no calf tenderness and amputation noted Below the knee: right Objective Data Vital Signs Vital Signs: Vital Signs - 24 hr 08/04/21 14:10 08/04/21 14:23 08/04/21 14:35 Temperature 98.3 F Pulse Rate 86 77 71 Respiratory Rate 16 Blood Pressure 168/82 H 153/70 H 147/65 H Pulse Oximetry 08/04/21 14:50 08/04/21 15:05 08/04/21 15:20 Temperature Pulse Rate 71 64 78 Respiratory Rate Blood Pressure 148/80 H 158/79 H 159/84 H Pulse Oximetry 08/04/21 15:35 08/04/21 15:50 08/04/21 16:05 Temperature Pulse Rate 66 85 74 Respiratory Rate Blood Pressure 165/83 H 136/72 162/84 H Pulse Oximetry 08/04/21 16:25 08/04/21 16:45 08/04/21 17:00 Temperature Pulse Rate 75 78 81 Respiratory Rate Blood Pressure 164/88 H 125/70 146/82 H Pulse Oximetry 08/04/21 17:15 08/04/21 19:13 08/04/21 22:39 Temperature 97.9 F 98.4 F Pulse Rate 76 98 98 Respiratory Rate 16 17 Blood Pressure 173/90 H 122/63 Pulse Oximetry 100 08/05/21 03:08 08/05/21 08:39 Temperature 97.8 F Pulse Rate 68 68 Respiratory Rate 16 Blood Pressure 127/60 Pulse Oximetry 100 Intake/Output Intake/Output: Intake & Output 08/02/21 08/03/21 08/04/21 08/05/21 23:59 23:59 23:59 23:59 Intake Total 1100 1930 1377 520 Output Total 1200 1125 3265 150 Balance -100 805 -1889 370 Meds/Results Medications: Active Medications Generic Name Dose Route Start Last Admin Trade Name Rashaadq PRN Reason Stop Dose Admin Acetaminophen 650 mg 08/01/21 23:15 08/05/21 08:56 Acetaminophen 325 Mg Tablet PO 650 mg Q4H PRN Administration Mild Pain (1-3) or Fever Hydrocodone Bitart/Acetaminophen 1 tab 08/01/21 23:15 Hydrocodone/Acetaminophen (*Crx) 5-325 Mg Tablet PO Q4H PRN Pain Rated 4-6 Amlodipine Besylate 10 mg 08/02/21 09:00 08/05/21 08:38 Amlodipine Besylate 5 Mg Tablet PO 10 mg DAILY [facility] Administration Aspirin 81 mg 08/02/21 08:00 08/05/21 08:38 Aspirin 81 Mg Chewable Tablet PO 81 mg DAILY@0800 [facility] Administratio
[2021-08-05 11:49] LABS: Glucose Point of Care 163 mg/dl (65-105)
[2021-08-05 14:11] VITALS: BP 145/64; PULSE 57; RESP 17; TEMP 36.3; O2SAT 100
--- NOTE | 2021-08-05 15:29 | PM.PNNEP ---
Progress Note: A&P Assessment and Plan (1) End stage renal disease: Code(s): N18.6 - End stage renal disease Status: Chronic Assessment and Plan: HD tomorrow and continue outpatient schedule of T/T/S follow electrolytes, volume status, and clearance (2) Decubitus ulcer of sacral region, unstageable: Onset Date: ~05/2021 Code(s): L89.150 - Pressure ulcer of sacral region, unstageable Status: Acute Assessment and Plan: imaging suggest abscess and possible osteomyelitis s/p bedside excisional debridement by Dr. Tilley 08/02/[address] culture data noted on antibiotics as outlined by Infectious Disease (3) Combined systolic and diastolic congestive heart failure: Code(s): I50.40 - Unspecified combined systolic (congestive) and diastolic (congestive) heart failure Status: Chronic Assessment and Plan: appears compensated at this time fluid removal with dialysis to maintain euvolemia (4) Hypertension: Qualifiers: Hypertension type: unspecified Qualified Code(s): I10 - Essential (primary) hypertension Code(s): I10 - Essential (primary) hypertension Status: Acute Assessment and Plan: reasonable control at this time continue home medications follow trend of hemodynamics (5) Anemia: Qualifiers: Anemia type: due to chronic kidney disease Chronic kidney disease stage: stage 5, not on chronic dialysis Qualified Code(s): N18.5 - Chronic kidney disease, stage 5; D63.1 - Anemia in chronic kidney disease Code(s): D64.9 - Anemia, unspecified Status: Chronic Assessment and Plan: due to ESRD Eopogen with HD follow trend of H/H (6) Insulin dependent diabetes mellitus: Status: Chronic Assessment and Plan: follow accuchecks on SSI and glipizide Will continue to follow. Subjective Date/time seen: 08/05/21 15:29 Seen by Infectious Disease yesterday with recommendations noted with regard to antibiotics; tolerated dialysis yesterday without any issues or problems; no issues/events overnight or earlier this morning; pain control seems adequate; no apparent distress noted. Exam Narrative: General: WD/WN male in NAD Heart: normal S1 and S2; no rub Lungs: clear to auscultation Abdomen: soft, nontender, nondistended, positive bowel sounds Extremities: no cyanosis or clubbing; no edema Skin: no rash or nodules Objective Data Vital Signs Vital Signs: Vital Signs Temp Pulse Resp BP Pulse Ox 08/05/21 08:39 68 08/05/21 03:08 36.6 C 68 16 127/60 100 08/04/21 22:39 98 08/04/21 19:13 36.9 C 98 17 122/63 100 Intake/Output Intake/Output: Intake & Output 08/02/21 08/03/21 08/04/21 08/05/21 23:59 23:59 23:59 23:59 Intake Total 1100 1930 1377 880 Output Total 1200 1125 3265 150 Balance -100 805 -1888 730 Meds/Results Medications: Active Medications Generic Name Dose Route Start Last Admin Trade Name Freq PRN Reason Stop Dose Admin Acetaminophen 650 mg 08/01/21 23:15 08/05/21 08:56 Acetaminophen 325 Mg Tablet PO 650 mg Q4H PRN Administration Mild Pain (1-3) or Fever Hydrocodone Bitart/Acetaminophen 1 tab 08/01/21 23:15 Hydrocodone/Acetaminophen (*Crx) 5-325 Mg Tablet PO Q4H PRN Pain Rated 4-6 Amlodipine Besylate 10 mg 08/02/21 09:00 08/05/21 08:38 Amlodipine Besylate 5 Mg Tablet PO 10 mg DAILY [facility] Administration Aspirin 81 mg 08/02/21 08:00 08/05/21 08:38 Aspirin 81 Mg Chewable Tablet PO 81 mg DAILY@0800 [facility] Administration Atorvastatin Calcium 40 mg 08/02/21 09:00 08/05/21 08:38 Atorvastatin 40 Mg Tablet PO 40 mg DAILY [facility] Administration Calcium Carbonate 200 mg 08/02/21 03:12 Calcium Carbonate (Tums) 500 Mg (200 Mg Elemental) PO Q6H PRN Indigestion, nausea Clindamycin HCl 300 mg 08/04/21 14:00 08/05/21 14:07 Clindamycin Hc
[2021-08-05 16:35] LABS: Glucose Point of Care 187 mg/dl (65-105)
--- NOTE | 2021-08-05 18:50 | PM.DS ---
DS: Admitting Diagnosis Discharge Date 08/05/21 Admitting Diagnosis (1) Acute osteomyelitis of sacrum: Code(s): M46.28 - Osteomyelitis of vertebra, sacral and sacrococcygeal region Status: Acute Assessment and Plan: Patient has been started Zosyn and vanco Surgery has been consulted Blood cultures in progress (2) Abscess of sacrum: Code(s): M46.28 - Osteomyelitis of vertebra, sacral and sacrococcygeal region Status: Acute Assessment and Plan: Surgery consulted Local care Supportive care (3) End stage renal disease: Code(s): N18.6 - End stage renal disease Status: Chronic Assessment and Plan: hemodialysis 3 times a week Continue hemodialysis Nephrology consult (4) Ischemic cardiomyopathy: Code(s): I25.5 - Ischemic cardiomyopathy Status: Acute Assessment and Plan: Stable Continue home meds (5) Below-knee amputation of right lower extremity: Code(s): S88.111A - Complete traumatic amputation at level between knee and ankle, right lower leg, initial encounter Status: Acute Assessment and Plan: Fall precautions (6) Combined congestive systolic and diastolic heart failure: Qualifiers: Heart failure chronicity: acute on chronic Qualified Code(s): I50.43 - Acute on chronic combined systolic (congestive) and diastolic (congestive) heart failure Code(s): I50.40 - Unspecified combined systolic (congestive) and diastolic (congestive) heart failure Status: Acute Assessment and Plan: Patient appears to be euvolemic Daily weight Daily intake and output Continue to monitor (7) CAD (coronary artery disease): Qualifiers: Coronary Disease-Associated Artery/Lesion type: [place] artery [place] vs. transplanted heart: [place] heart Associated angina: without angina Qualified Code(s): I25.10 - Atherosclerotic heart disease of [place] coronary artery without angina pectoris Code(s): I25.10 - Atherosclerotic heart disease of [place] coronary artery without angina pectoris Status: Acute Assessment and Plan: Stable Continue home meds (8) Insulin dependent diabetes mellitus: Status: Chronic Assessment and Plan: Accu-Cheks AC and HS Continue insulin sliding scale DS: Discharge Diagnosis Discharge Diagnosis (1) Acute osteomyelitis of sacrum: Code(s): M46.28 - Osteomyelitis of vertebra, sacral and sacrococcygeal region Status: Acute (2) Abscess of sacrum: Code(s): M46.28 - Osteomyelitis of vertebra, sacral and sacrococcygeal region Status: Acute (3) S/P excisional debridement: Code(s): Z98.890 - Other specified postprocedural states Status: Acute (4) Combined systolic and diastolic congestive heart failure: Code(s): I50.40 - Unspecified combined systolic (congestive) and diastolic (congestive) heart failure Status: Chronic (5) Renal osteodystrophy: Code(s): N25.0 - Renal osteodystrophy Status: Acute (6) Chronic kidney disease-mineral and bone disorder: Code(s): N18.9 - Chronic kidney disease, unspecified; E83.9 - Disorder of mineral metabolism, unspecified; M89.9 - Disorder of bone, unspecified Status: Acute (7) End stage renal disease: Code(s): N18.6 - End stage renal disease Status: Chronic (8) Below knee amputation: Code(s): S88.119A - Complete traumatic amputation at level between knee and ankle, unspecified lower leg, initial encounter Status: Acute (9) 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
[2021-08-05 19:26] VITALS: BP 140/62; PULSE 75; RESP 16; TEMP 36.3; O2SAT 100
[2021-08-05 21:13] VITALS: PULSE 68
[2021-08-05 21:27] LABS: Glucose Point of Care 169 mg/dl (65-105)
[2021-08-06 02:45] VITALS: BP 144/65; PULSE 75; RESP 17; TEMP 36.6; O2SAT 100
[2021-08-06 05:20] VITALS: BP 149/48; PULSE 73; RESP 18; TEMP 36.2; O2SAT 99
[2021-08-06] MEDS: CLINDAMYCIN HCL 150 MG CAP 300 MG PO (05:35)
[2021-08-06 06:09] LABS: Estimated CRCL calculation 26 ml/min; Estimated Glomerular Filt Rate 25
--- NOTE | 2021-08-06 06:30 | PC.NURSE ---
Report given to [facility] 08/06/2021 05:09.
== END 2021-08-06 07:30 | DRG 317 ==
LOC: ANHED 23:40 → ANH2MED 23:57
PROVIDERS: Admitting Provider Internal Medicine; Emergency Provider Emergency Medicine; Visit Provider Internal Medicine
DX: M46.28 Osteomyelitis of vertebra, sacral and sacrococcygeal region (principal); I13.2 Hypertensive heart and chronic kidney disease with heart failure and with stage 5 chronic kidney disease, or end stage renal disease; N18.6 End stage renal disease; I50.42 Chronic combined systolic (congestive) and diastolic (congestive) heart failure; I25.5 Ischemic cardiomyopathy; L89.154 Pressure ulcer of sacral region, stage 4; E11.22 Type 2 diabetes mellitus with diabetic chronic kidney disease; E11.42 Type 2 diabetes mellitus with diabetic polyneuropathy; E11.21 Type 2 diabetes mellitus with diabetic nephropathy; E87.1 Hypo-osmolality and hyponatremia; D63.1 Anemia in chronic kidney disease; I25.10 Atherosclerotic heart disease of native coronary artery without angina pectoris; N25.0 Renal osteodystrophy; K57.90 Diverticulosis of intestine, part unspecified, without perforation or abscess without bleeding; I34.0 Nonrheumatic mitral (valve) insufficiency; Z89.511 Acquired absence of right leg below knee; Z99.81 Dependence on supplemental oxygen; I73.9 Peripheral vascular disease, unspecified
CPT/HCPCS: 36415; 74176; 80048; 80053; 80202; 82306; 82565; 82948; 83036; 83605; 83970; 84100; 85025; 85027; 85610; 85730; 86140; 87040; 87070; 87075; 87077; 87186; 87205; 96365; 96367; 97162; 99285; A9270; G0257; G0378; G0379; J0692; J1644; J2543; J3370; J7030; Q5105

== ENCOUNTER 2022-01-12 08:37 | Observation (INO) | payer MEDICAID, SELFPAY ==
[2022-01-12] VITALS (22 sets, daily range): BP systolic 135–175; BP diastolic 64–93; PULSE 63–78; RESP 16–18; TEMP 36.4–37.3; O2SAT 99–100; BMI 30.8
--- NOTE | ~2022-01-12 | XR_ITS ---
XR chest 1V portable 01/12/2022 09:06 Indication: Dialysis catheter issues Procedure: AP portable chest Comparison: Comparison to multiple prior studies sequentially, with oldest reviewed study date2020. Findings: Shallow inspiration. Dialysis catheter tip near the cavoatrial junction. Borderline heart s ize for technique. No focal air space disease, pulmonary edema, pleural effusion or suspected pneumot horax. Impression: 1: No acute cardiopulmonary disease. Reviewed, dictated and finalized at location A. Impression: 1: No acute cardiopulmonary disease.
--- NOTE | ~2022-01-12 | XR_ITS ---
EXAMINATION: XR chest port-a-cath/central Exam Date/Time: 01/13/2022 19:15 CDT HISTORY: EXCHANGE TUNELLED DIALYSIS CATH Comparison: X-ray 01/12/2022, fluoroscopy 01/13/2022. RESULT: Lines, tubes, and devices: Right internal jugular dialysis catheter, tip terminating near the inferi or cavoatrial junction. Lungs and pleura: Slightly increased diffuse reticular pattern and right angle blunting. No pneumoth orax. Cardiomediastinal silhouette: Stable cardiomediastinal silhouette. Other: No acute osseous or upper abdominal finding. IMPRESSION: Right IJ dialysis catheter, in good position. Mild interstitial pulmonary edema and possible small ri ght pleural effusion. Reviewed, dictated and finalized at location K. IMPRESSION: Right IJ dialysis catheter, in good position. Mild interstitial pulmonary edema and possible small right pleural effusion.
--- NOTE | ~2022-01-12 | XR_ITS ---
EXAMINATION: XR fl guide central line place DATE: 01/13/2022 17:50 CDT INDICATION: EXCHANGE TUNELLED DIALYSIS CATH . TECHNIQUE: 2 fluoroscopic images of the chest were obtained during central line exchange. I was not p resent during the procedure. Fluoroscopy exposure time was 42.1 seconds. Cumulative dose 8.89 mGy. COMPARISON: None FINDINGS: Fluoroscopic images demonstrate wire cannulation, presumably of the existing catheter. A second image presumably demonstrates the new catheter, distal port terminating near the inferior cavoatrial junct ion. IMPRESSION: Fluoroscopic documentation of dialysis catheter exchange. Reviewed, dictated and finalized at location K.
--- NOTE | 2022-01-12 09:06 | ED.GENADULT ---
HPI - General Adult General Chief complaint: Unspecified Stated complaint: occlusion to access Time Seen by Provider: 01/12/22 09:00 History of Present Illness HPI narrative: 46-year-old male presents to the ER from dialysis for evaluation of a possible obstructed dialysis catheter. Patient reports he completed approximately 2 hours of dialysis today before the staff expressed concern that the catheter may be obstructed. Patient also reports that on Tuesday dialysis staff reported that his catheter might be obstructed, but was able to complete his dialysis. Patient states tunneled dialysis catheter was placed approximately 7 months ago here at [place] by Dr. Tilley. Patient denies shortness of breath or chest pain. Related Data Home Medications Medication Instructions Recorded Confirmed amlodipine 10 mg tablet 10 mg PO DAILY 05/21/21 08/02/21 glipizide 10 mg tablet 10 mg PO DAILY 05/21/21 08/02/21 isosorbide mononitrate 60 mg 60 mg PO DAILY 08/02/21 08/02/21 tablet,extended release 24 hr Allergies Allergy/AdvReac Type Severity Reaction Status Date / Time gadobenic acid AdvReac Unconscious Verified 08/01/21 18:51 [From contrast - MRI] Review of Systems Review of Systems: CONSTITUTIONAL: Denies fever, chills, or sweats. EYES: Denies visual changes, redness, or discharge. ENT: Denies rhinorrhea, congestion, sore throat, or otalgia. CARDIOVASCULAR: Denies chest pain, palpitations, or edema. RESPIRATORY: Denies cough or dyspnea. GASTROINTESTINAL: Denies abdominal pain, nausea, vomiting, or diarrhea. GENITOURINARY: Denies dysuria or hematuria. SKIN: Denies rash or itching. MUSCULOSKELETAL: Denies back pain, joint pain, or myalgia. NEUROLOGIC: Denies headache, numbness, dizziness, or weakness. PSYCHIATRIC: Denies anxiety or depression. [facility] Past Medical History Medical History Anemia in chronic illness Cardiomyopathy Chronic kidney disease, stage 3b Combined congestive systolic and diastolic heart failure Mildly reduced LV systolic function with an EF of 40 to 45% and grade 2 diastolic dysfunction noted on echocardiogram dated 01/22/2021. Diverticulosis EPO-resistant anemia Hypertension Insulin dependent diabetes mellitus Hemoglobin A1c was 10.9% on 01/23/2021. Complicated by gastric dysmotility, neuropathy, and nephropathy. Ischemic cardiomyopathy Lexiscan stress on 01/26/2021 showed a large area of severe infarct involving the apical lateral and mid to basal anterolateral and inferolateral segments of left ventricle on myocardial perfusion imaging with a left ventricular ejection fracture measuring 45%. Leukocytosis Peripheral vascular disease Renal osteodystrophy Severe mitral valve regurgitation (01/22/21) Surgical History Surgical History History of colonoscopy with polypectomy (01/27/21) 2 benign polyps removed. History of right below knee amputation Family History Family History Other Unknown family medical history Social History Social History Social History: The patient now lives at a SNF ( he didn't know the name) and used to live in [place] with his sister, [id number], nieces, and nephews. Nonsmoker. No alcohol or illicit substance abuse. He designates his sister, Birdie Stroud, as his surrogate decision maker and he wishes to be a full code. He has a son in his 20s. Smoking status: Unknown if ever smoked Alcohol intake: unknown Substance use: unknown Substance use type: does not use Spiritual care concerns: No Exam Narrative: GENERAL: Well-appearing, well-nourished, and in no acute distress. HEAD: Normocephalic, atraumatic. EYES: PERRLA and EOMI. NECK: Supple. No adenopathy or masses. No carotid bruits or JVD CHEST: Clear to auscultatio
[2022-01-12 09:16] LABS: Basophils Absolute Auto 0.1 K/mm3 (0.0-0.1); Basophils Percent Auto 0.7 % (0.2-1.2); Eosinophils Absolute Auto 1.4 K/mm3 (0-0.3); Eosinophils Percent Auto 16.7 % (0-4.4); Hematocrit 33.9 % (42.0-52.0); Hemoglobin 11.1 g/dL (14.0-18.0); Immature Granulocyte Absolute 0.03 K/mm3 (0.00-0.031); Immature Granulocyte Percent A 0.4 % (0-0.5); Lymphocytes Absolute Auto 1.53 K/mm3 (0.9-3.2); Lymphocytes Percent Auto 18.6 % (18.3-44.2); Mean Corpuscular HGB Conc 32.7 g/dl (32-36); Mean Corpuscular Hemoglobin 30.4 pg (26-34); Mean Corpuscular Volume 92.9 fl (80-100); Mean Platelet Volume 10.3 fl (7.4-10.4); Monocytes Absolute Auto 0.7 K/mm3 (0.1-0.6); Monocytes Percent Auto 8.4 % (2.6-8.5); Neutrophils Absolute Auto 4.5 K/mm3 (1.3-6.7); Neutrophils Percent Auto 55.2 % (45.5-73.1); Platelet Count Result 228 k/mm3 (150-375); Red Blood Count 3.65 M/mm3 (4.6-6.20); Red Cell Distribution Width 12.2 % (11.5-14.5); White Blood Count 8.2 K/mm3 (4.5-10.0)
[2022-01-12 09:28] LABS: Alanine Aminotransferase 22 U/L (6-50); Albumin Level 3.9 g/dL (3.5-5.1); Alkaline Phosphatase 161 U/L (38-126); Anion Gap 7 mmol/L (8-16); Aspartate Amino Transferase 26 U/L (17-59); Bilirubin,Total 0.3 mg/dL (0.2-1.3); Blood Urea Nitrogen 40 mg/dL (9-20); Calcium 8.2 mg/dL (8.4-10.2); Carbon Dioxide 30 mmol/L (22-30); Chloride 102 mmol/L (98-107); Estimated CRCL calculation 31 ml/min; Estimated Glomerular Filt Rate 25; Glucose 184 mg/dL (65-110); Potassium 3.8 mmol/L (3.4-5.0); Sodium 139 mmol/L (137-145)
[2022-01-12 09:32] LABS: INR 1.1; Partial Thromboplastin Time 34.5 SECONDS (22.3-36.8); Prothrombin Time 13.5 Seconds (11.1-14.7)
--- NOTE | 2022-01-12 12:21 | PC.NURSE ---
spoke with jose luis with [facility], ordered a renal tray at this time
--- NOTE | 2022-01-12 14:02 | PM.CNNEP ---
Assessment and Plan Additional Plan 1. The patient has end-stage renal disease. He requires dialysis 3 times a week. Unfortunately his catheter is stopped working. We will get a new catheter while he is here. Dr. Tilley was notified of the consult. Volume status looks okay and his potassium is all right as well. His creatinine is low however I think this is probably because of poor muscle mass. Will check a 24hour urine to be sure. 2. The patient has renal osteodystrophy. We can check a phosphorus level in the morning. 3. The patient has hypertension. He is on amlodipine metoprolol and lisinopril for this. 4. The patient has heart disease. He does have coronary artery disease. This is part of the reason he is on metoprolol and lisinopril. He also has diastolic dysfunction, and mild congestive cardiomyopathy. His volume status has been good the last few weeks and is good now. 5. The patient has diabetes. Hospitalists to manage. 6. The patient has peripheral vascular disease. He has a right [id number] amputation. History of Present Illness Reason for Consult Consult date: 01/12/22 Chief Complaint Chief complaint: GLENN History of Present Illness Narrative: Gustavo is a very pleasant 46-year-old gentleman who has multiple medical problems including end-stage renal disease on dialysis 3 times a week, anemia of chronic kidney disease, renal osteodystrophy, congestive heart failure with an EF of 40-45% and grade 2 diastolic dysfunction, severe mitral regurgitation, ischemic cardiomyopathy, diverticulosis, The patient has been getting dialysis 3 times a week at [facility] His catheter has been functioning poorly for the last couple of weeks. He has had tPA placed in the catheter for time and each time it last for a shorter and shorter period of time. He had a instilled on Tuesday then Tuesday and then again today and he could not even make it through the treatment. He has had poor dialysis treatments the last few treatments as well. Because of the poorly functioning catheter he was unable to get dialysis today so he was sent to the emergency room for replacement of the catheter. The patient does not have any pain anywhere. He has no shortness of breath. No itching. Review of Systems Constitutional: Constitutional: Reports no additional constitutional complaints Eyes: Eyes: Reports no additional eye complaints ENT: Reports system reviewed and no additional complaints, except as documented Cardiovascular: Cardiovascular: Reports no additional cardiovascular complaints Respiratory: Respiratory: Reports no additional respiratory complaints Gastrointestinal: Gastrointestinal: Reports no additional gastrointestinal complaints Genitourinary: Genitourinary: Reports no additional male genitourinary complaints Musculoskeletal: Musculoskeletal: Reports no additional musculoskeletal complaints Integumentary/Breasts: Skin/Breast: Reports system reviewed and no additional complaints, except as docu Neurologic: Reports system reviewed and no additional complaints, except as documented Psychiatric: Psychiatric: Reports no additional psychiatric complaints Endocrine: Endocrine: Reports no additional endocrine complaints PMFSH Past Medical History Medical History Anemia in chronic illness Cardiomyopathy Chronic kidney disease, stage 3b Combined congestive systolic and diastolic heart failure Mildly reduced LV systolic function with an EF of 40 to 45% and grade 2 diastolic dysfunction noted on echocardiogram dated 01/22/2021. Diverticulosis EPO-resistant anemia Hypertension Insulin dependent diabetes mellitus Hemoglobin A1c was 10.9% on 01/23/2021. Complicated by gastric dysmotility, neuropathy, and nephropathy. Ischemic cardiomyopathy Lexiscan stress on 01/26/2021 showed a large area of severe infarct involving the apical lateral and mid to basal anterolat
--- NOTE | 2022-01-12 14:15 | PC.NURSE ---
This patient, Gustavo Chacko, was admitted to 3 [facility] Surg Room 310-01. Patient/family oriented to hospital policies and general routines including ID bracelet, bed and alarms, visiting hours, pain management, procedures, bathroom and other care routines, personal items, smoking policy, room service/diet, and visiting hours.Report received from Audelia SAWYER. Information on how to activate the Rapid Response Team has been discussed. Patient/Family are encouraged to report perceived risks to care and to ask questions if they do not understand what they are told or what they should do.
--- NOTE | 2022-01-12 15:15 | PM.IMHP ---
H&P: HPI History of Present Illness Date/Time: 01/12/22 15:15 Chief Complaint: Dialysis catheter not working. Narrative: This is a 46-year-old male with end-stage renal disease on hemodialysis, type 2 diabetes mellitus, anemia of chronic kidney disease, peripheral vascular disease, congestive heart failure with a recent EF of 40 to 45% and grade 2 diastolic dysfunction, severe mitral valve regurgitation, and hypertension who presented to the emergency department via EMS from dialysis as his dialysis catheter is not working. His dialysis catheter has been functioning poorly for the last couple of weeks, requiring tPA on several occasions. He has had poor dialysis treatments the last several treatments due to problems with the catheter and today he was unable to complete dialysis and he was sent into the ER. He is being admitted for tunneled catheter tomorrow per Dr. Tilley. At the time my evaluation he is resting comfortably and has no complaints. He denies fever, chills, sweats, cold and flu symptoms, chest pain, shortness breast, nausea, vomiting, diarrhea, and dysuria (still makes urine). Review of Systems Review of Systems: 12 systems were reviewed. No cold or flu symptoms. No sick contacts. Appetite has been okay. He believes his diabetes has been pretty well controlled recently. His vision causes him the most brief, he can really only see black and white and shortly of his central vision is gone. He is hopeful to see an coffee roaster helper soon to see if the progression of his visual loss can be halted. Except as documented, all other systems were reviewed and are negative. [facility] Past Medical History Medical History Anemia in chronic illness EPO-persistent anemia. Combined congestive systolic and diastolic heart failure Mildly reduced LV systolic function with an EF of 40 to 45% and grade 2 diastolic dysfunction noted on echocardiogram dated 01/22/2021. Diverticulosis End-stage renal disease on hemodialysis Hypertension IgA nephropathy Insulin dependent diabetes mellitus Hemoglobin A1c was 10.9% on 01/23/2021. Complicated by gastric dysmotility, neuropathy, and nephropathy. Ischemic cardiomyopathy Lexiscan stress on 01/26/2021 showed a large area of severe infarct involving the apical lateral and mid to basal anterolateral and inferolateral segments of left ventricle on myocardial perfusion imaging with a left ventricular ejection fracture measuring 45%. 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 History of right below knee amputation Family History Family History Other Unknown family medical history Social History Social History (Updated 01/13/22 @ 00:00 by Lakshmi Lujan PA-C) Social History: The patient is now [facility]. Prior to that he was living in [place] with his sister, [id number], nieces, and nephews. Nonsmoker. No alcohol or illicit substance abuse. He designates his sister, Birdie Stroud, as his surrogate decision maker and he wishes to be a full code. Spiritual care concerns: No Meds Home Medications and Allergies Home Medications Medication Instructions Recorded Confirmed Type bumetanide 1 mg tablet 1 mg PO BID #60 tabs 02/25/21 01/12/22 Rx amlodipine 10 mg tablet 10 mg PO DAILY 05/21/21 01/12/22 History glipizide 10 mg tablet 10 mg PO DAILY 05/21/21 01/12/22 History aspirin 81 mg chewable tablet 81 mg PO DAILY@0800 #30 tabs 06/30/21 01/12/22 Rx ([facility] Aspirin) atorvastatin 40 mg tablet 40 mg PO DAILY #30 tabs 06/30/21 01/12/22 Rx calcium carbonate 500 mg calcium 200 mg PO Q6H PRN Indigestion,
--- NOTE | 2022-01-12 15:38 | PM.CNGS ---
Assessment and Plan Assessment and plan (1) Hemodialysis catheter malfunction: Code(s): T82.41XA - Breakdown (mechanical) of vascular dialysis catheter, initial encounter Status: Acute Assessment and Plan: This time I have discussed with the patient the current problem. Apparently the current tunneled dialysis catheter catheter has been in long enough that is failing. Therefore, we will plan on replacement. This will be done in the OR under monitored anesthesia care with IV sedation or GIVS. will use local anesthetic and 1st we will try to cut down on the original catheter slide down the guidewire and remove it then replace this 1 with a brand new tunneled dialysis catheter on the right. If we are and unable to accomplish that a new stick with ultrasound on the right or left to try to get the patient a dialysis catheter will be attempted. Risks, benefits, and possible complications of this including bleeding, infection, possible loss of the catheter into the vascular spaces with need to retrieve or inability to get a new catheter in place have been discussed and he wishes to proceed. (2) End-stage renal disease on hemodialysis: Code(s): N18.6 - End stage renal disease; Z99.2 - Dependence on renal dialysis Status: Acute (3) Combined systolic and diastolic congestive heart failure: Code(s): I50.40 - Unspecified combined systolic (congestive) and diastolic (congestive) heart failure Status: Chronic History of Present Illness Consult details Consult date: 01/12/22 Narrative: Mr. Chacko is a pleasant 46-year-old [place] gentleman who has multiple medical problems including end-stage renal disease on dialysis 3 times a week, anemia of chronic kidney disease, renal osteodystrophy, congestive heart failure with an EF of 40-45% and grade 2 diastolic dysfunction, severe mitral regurgitation, ischemic cardiomyopathy, diverticulosis, and history of an infected sacral decubitus ulcer. The patient has been getting dialysis 3 times a week at [facility] in [place].? His catheter has been functioning poorly for the last couple of weeks.? He has had tPA placed in the catheter four times and each time it lasted for a shorter and shorter period of time.? He had it instilled on Tuesday then Tuesday and then again today and he could not even make it through the treatment.? He has had poor dialysis treatments the last few treatments as well. This patient has been having trouble with his tunneled dialysis catheter which enters his right jugular vein. Apparently for the last 2 weeks there been slow flow as outlined above However,. Therefore, the patient was told to come to the emergency room today due to poor dialysis and need for possible tunneled dialysis catheter replacement. The patient states that he has already eaten lunch today. I have reviewed Dr. Johnson's note and have begun planning to replace the catheter. At this time I do not see that he has had any attempt at placement of permanent dialysis AV fistula or peritoneal dialysis. Patient could not easily answer my question about why this has not occurred. Subsequently I let Dr. Johnson know when we were planning on replacement of the catheter and he stated that the director social at dialysis center was working on insurance coverage for this patient to have more permanent dialysis access. Review of Systems Review of Systems: All systems reviewed & are unremarkable except as noted in HPI and below (HPI) Constitutional: Constitutional: Reports as per HPI, Denies chills and Denies fever(s) Eyes: Eyes: Reports no additional eye complaints ENT: Reports Normal hearing present and Denies dizziness Cardiovascular: Cardiovascular: Reports no additional cardiovascular complaints, Denies chest pain and Denies irregular heart rhythm Comments: Patient has significant hypertension on multiple meds. Respiratory: Respiratory: Reports no additional respiratory
[2022-01-12 21:23] LABS: Glucose Point of Care 210 mg/dl (65-105)
[2022-01-13] VITALS (10 sets, daily range): BP systolic 111–182; BP diastolic 66–89; PULSE 72–99; RESP 14–24; TEMP 36.1–36.9; O2SAT 96–100
[2022-01-13] MEDS: CHLORHEXIDINE GLUCONATE 4% SOL 120 ML BTL 1 APPLIC (04:30)
[2022-01-13 06:16] LABS: Basophils Absolute Auto 0.1 K/mm3 (0.0-0.1); Basophils Percent Auto 0.5 % (0.2-1.2); Eosinophils Absolute Auto 1.2 K/mm3 (0-0.3); Hematocrit 31.8 % (42.0-52.0); Hemoglobin 10.1 g/dL (14.0-18.0); Immature Granulocyte Absolute 0.02 K/mm3 (0.00-0.031); Immature Granulocyte Percent A 0.2 % (0-0.5); Lymphocytes Absolute Auto 1.69 K/mm3 (0.9-3.2); Lymphocytes Percent Auto 18.3 % (18.3-44.2); Mean Corpuscular HGB Conc 31.8 g/dl (32-36); Mean Corpuscular Hemoglobin 30.3 pg (26-34); Mean Corpuscular Volume 95.5 fl (80-100); Mean Platelet Volume 10.6 fl (7.4-10.4); Monocytes Absolute Auto 0.7 K/mm3 (0.1-0.6); Monocytes Percent Auto 7.5 % (2.6-8.5); Neutrophils Absolute Auto 5.6 K/mm3 (1.3-6.7); Neutrophils Percent Auto 60.5 % (45.5-73.1); Platelet Count Result 225 k/mm3 (150-375); Red Blood Count 3.33 M/mm3 (4.6-6.20); Red Cell Distribution Width 12.4 % (11.5-14.5); White Blood Count 9.2 K/mm3 (4.5-10.0)
[2022-01-13 06:26] LABS: Anion Gap 4 mmol/L (8-16); Blood Urea Nitrogen 48 mg/dL (9-20); Calcium 8.4 mg/dL (8.4-10.2); Carbon Dioxide 29 mmol/L (22-30); Chloride 103 mmol/L (98-107); Estimated CRCL calculation 24 ml/min; Estimated Glomerular Filt Rate 19; Glucose 134 mg/dL (65-110); Magnesium 2.2 mg/dL (1.6-2.3); Phosphorus 4.8 mg/dL (2.5-4.5); Potassium 4.4 mmol/L (3.4-5.0); Sodium 136 mmol/L (137-145)
[2022-01-13 07:47] LABS: Glucose Point of Care 113 mg/dl (65-105)
--- NOTE | 2022-01-13 08:53 | PC.NURSE ---
Patient throwing items off bedside table because he can not eat until after procedure. Patient not talking and refused meds.
--- NOTE | 2022-01-13 11:31 | P.PNIM_ITS ---
Progress Note: A&P Assessment and Plan (1) Hemodialysis catheter malfunction: Code(s): T82.41XA - Breakdown (mechanical) of vascular dialysis catheter, initial encounter <Taylor Dodd PA-C - Last Filed: 01/13/22 11:45> Status: Acute <Talyor Dodd PA-C - Last Filed: 01/13/22 11:45> Assessment and Plan: Dialysis catheter has been poorly functioning for a couple of weeks it and now has failed * Appreciate general surgery consultation * Planning for replacement of dialysis catheter this afternoon * Currently NPO awaiting procedure <Taylor Dodd PA-C - Last Filed: 01/13/22 11:45> (2) End-stage renal disease on hemodialysis: Code(s): N18.6 - End stage renal disease; Z99.2 - Dependence on renal dialysis <Taylor Dodd PA-C - Last Filed: 01/13/22 11:45> Status: Acute <Taylor Dodd PA-C - Last Filed: 01/13/22 11:45> Assessment and Plan: May take showed hemodialysis 3 times per week * 24 hour urine creatinine collection pending at this time * Appreciate nephrology consultation for hemodialysis management * Volume status is okay at this time <Taylor Dodd PA-C - Last Filed: 01/13/22 11:45> (3) Hypertension: Qualifiers: Hypertension type: unspecified Qualified Code(s): I10 - Essential (primary) hypertension <Taylor Dodd PA-C - Last Filed: 01/13/22 11:45> Code(s): I10 - Essential (primary) hypertension <Taylor Dodd PA-C - Last Filed: 01/13/22 11:45> Status: Chronic <Taylor Dodd PA-C - Last Filed: 01/13/22 11:45> Assessment and Plan: Blood pressures reviewed and have been slightly elevated above target but seems to be improving. Last BP 147/81 * Continue amlodipine, lisinopril, metoprolol, hydrochlorothiazide * Monitor blood pressure trends and adjust medication regimen as needed <Taylor Dodd PA-C - Last Filed: 01/13/22 11:45> (4) Combined congestive systolic and diastolic heart failure: Qualifiers: Heart failure chronicity: acute on chronic Qualified Code(s): I50.43 - Acute on chronic combined systolic (congestive) and diastolic (congestive) heart failure <Taylor NASRA WisdomC - Last Filed: 01/13/22 11:45> Code(s): I50.40 - Unspecified combined systolic (congestive) and diastolic (congestive) heart failure <Taylor NASRA WisdomC - Last Filed: 01/13/22 11:45> Status: Acute <Taylor EspinosaHugh HamNASRA barnardC - Last Filed: 01/13/22 11:45> Assessment and Plan: Clinically compensated. * Monitor volume status closely. <Taylor Guy Dodd PA-C - Last Filed: 01/13/22 11:45> (5) Insulin dependent diabetes mellitus: Status: Chronic <Taylor Dodd PA-C - Last Filed: 01/13/22 11:45> Assessment and Plan: Blood sugars have been reasonably controlled * Continue Accu-Cheks, sliding scale insulin, hypoglycemic protocol\ * Continue home glipizide * Continue low-dose basal insulin 5 units q.h.s. * Check A1c <Taylor Guy Dodd PA-C - Last Filed: 01/13/22 11:45> Subjective Date/time seen: 01/13/22 11:31 <Taylor Dodd PA-C - Last Filed: 01/13/22 11:45> Interval history: Date of service: 01/13/2022 Gustavo Chacko is a 46-year-old male with a history of ESRD on hemodialysis, anemia of chronic disease could above CHF, hypertension, type 2 diabetes mellitus, peripheral vascular disease COVID several other comorbidities who is seated follow-up for failing dialysis catheter. Patient tells me that he is very hungry because no one will let him eat. He refused to answ
--- NOTE | 2022-01-13 11:31 | PM.IMPN ---
Progress Note: A&P Assessment and Plan (1) Hemodialysis catheter malfunction: Code(s): T82.41XA - Breakdown (mechanical) of vascular dialysis catheter, initial encounter <Taylor Dodd PA-C - Last Filed: 01/13/22 11:45> Status: Acute <Taylor Dodd PA-C - Last Filed: 01/13/22 11:45> Assessment and Plan: Dialysis catheter has been poorly functioning for a couple of weeks it and now has failed Appreciate general surgery consultation Planning for replacement of dialysis catheter this afternoon Currently NPO awaiting procedure <Taylor Dodd PA-C - Last Filed: 01/13/22 11:45> (2) End-stage renal disease on hemodialysis: Code(s): N18.6 - End stage renal disease; Z99.2 - Dependence on renal dialysis <Taylor Dodd PA-C - Last Filed: 01/13/22 11:45> Status: Acute <Taylor Dodd PA-C - Last Filed: 01/13/22 11:45> Assessment and Plan: May take showed hemodialysis 3 times per week 24 hour urine creatinine collection pending at this time Appreciate nephrology consultation for hemodialysis management Volume status is okay at this time <Taylor oDdd PA-C - Last Filed: 01/13/22 11:45> (3) Hypertension: Qualifiers: Hypertension type: unspecified Qualified Code(s): I10 - Essential (primary) hypertension <Taylor Dodd PA-C - Last Filed: 01/13/22 11:45> Code(s): I10 - Essential (primary) hypertension <Taylor Dodd PA-C - Last Filed: 01/13/22 11:45> Status: Chronic <Taylor Dodd PA-C - Last Filed: 01/13/22 11:45> Assessment and Plan: Blood pressures reviewed and have been slightly elevated above target but seems to be improving. Last BP 147/81 Continue amlodipine, lisinopril, metoprolol, hydrochlorothiazide Monitor blood pressure trends and adjust medication regimen as needed <Taylor Dodd PA-C - Last Filed: 01/13/22 11:45> (4) Combined congestive systolic and diastolic heart failure: Qualifiers: Heart failure chronicity: acute on chronic Qualified Code(s): I50.43 - Acute on chronic combined systolic (congestive) and diastolic (congestive) heart failure <Taylor Dodd LORI - Last Filed: 01/13/22 11:45> Code(s): I50.40 - Unspecified combined systolic (congestive) and diastolic (congestive) heart failure <Taylor EspinosaHugh Hamakil LORI - Last Filed: 01/13/22 11:45> Status: Acute <Taylor Dodd LORI - Last Filed: 01/13/22 11:45> Assessment and Plan: Clinically compensated. Monitor volume status closely. <Taylor EspinosaHugh Ju LORI - Last Filed: 01/13/22 11:45> (5) Insulin dependent diabetes mellitus: Status: Chronic <Taylor EspinosaHugh Hamakil LORI - Last Filed: 01/13/22 11:45> Assessment and Plan: Blood sugars have been reasonably controlled Continue Accu-Cheks, sliding scale insulin, hypoglycemic protocol\ Continue home glipizide Continue low-dose basal insulin 5 units q.h.s. Check A1c <Taylor EspinosaHugh Hamakil LORI - Last Filed: 01/13/22 11:45> Subjective Date/time seen: 01/13/22 11:31 <Taylor EspinosaHugh Hamakil LORI - Last Filed: 01/13/22 11:45> Interval history: Date of service: 01/13/2022 Gustavo Chacko is a 46-year-old male with a history of ESRD on hemodialysis, anemia of chronic disease could above CHF, hypertension, type 2 diabetes mellitus, peripheral vascular disease COVID several other comorbidities who is seated follow-up for failing dialysis catheter. Patient tells me that he is very hungry because no one will let him eat. He refused to answer any additional questions stating ?I am just hungry, nothing else. I told him to please answer some of my additional questions with at least yes or no. Eventually, he was agreeable to this and denied shortness of breath, chest pain, abdominal pain, nausea, vomiting, swelling in his extremities. Patient's RN tells me that patient refused medic
[2022-01-13 11:48] LABS: Glucose Point of Care 111 mg/dl (65-105)
--- NOTE | 2022-01-13 12:43 | PM.PNNEP ---
Progress Note: A&P Assessment and Plan (1) End stage renal disease: Code(s): N18.6 - End stage renal disease Status: Chronic Assessment and Plan: resume hemodialysis once reliable access placed follow electrolytes, volume status, and clearance (2) Hemodialysis catheter malfunction: Code(s): T82.41XA - Breakdown (mechanical) of vascular dialysis catheter, initial encounter Status: Acute Assessment and Plan: General Surgery following plan new HD catheter placement later today unfortunately, senior care dialysis access is going to be a problem due to insurance issues (3) Hypertension: Qualifiers: Hypertension type: unspecified Qualified Code(s): I10 - Essential (primary) hypertension Code(s): I10 - Essential (primary) hypertension Status: Chronic Assessment and Plan: reasonable control at this time follow trend of hemodynamics (4) Combined systolic and diastolic congestive heart failure: Code(s): I50.40 - Unspecified combined systolic (congestive) and diastolic (congestive) heart failure Status: Chronic Assessment and Plan: appears compensated at this time ongoing fluid removal with dialysis to maintain euvolemia (5) Anemia: Qualifiers: Anemia type: due to chronic kidney disease Chronic kidney disease stage: stage 5, not on chronic dialysis Qualified Code(s): N18.5 - Chronic kidney disease, stage 5; D63.1 - Anemia in chronic kidney disease Code(s): D64.9 - Anemia, unspecified Status: Chronic Assessment and Plan: due to ESRD Epogen with HD follow trend of H/H (6) Diabetes: Code(s): E11.9 - Type 2 diabetes mellitus without complications Status: Chronic Assessment and Plan: follow accuchecks on Lantus and SSI Will continue to follow. Subjective Date/time seen: 01/13/22 12:43 Appears to be somewhat upset that he is NPO for planned tunneled HD catheter placement this afternoon; no apparent distress voiced at this time; no issues/events overnight or earlier this morning; no other complaints to report. Exam Narrative: General: WD/WN male in NAD Heart: normal S1 and S2; no rub Lungs: clear to auscultation Abdomen: soft, nontender, nondistended, positive bowel sounds Extremities: no cyanosis or clubbing; no edema Skin: warm and dry Objective Data Vital Signs Vital Signs: Vital Signs Temp Pulse Resp BP Pulse Ox O2 Del Method 01/13/22 08:45 Room Air 01/13/22 08:20 99 Room Air 01/13/22 06:00 36.9 C 99 18 147/81 H 96 01/12/22 21:23 99 Room Air 01/12/22 22:00 37.3 C 63 18 156/93 H 100 01/12/22 19:53 Room Air Intake/Output Intake/Output: Intake & Output 01/10/22 01/11/22 01/12/22 01/13/22 23:59 23:59 23:59 23:59 Intake Total 290 100 Output Total 325 550 Balance -35 -450 Meds/Results Medications: Active Medications Generic Name Dose Route Start Last Admin Trade Name Freq PRN Reason Stop Dose Admin Amlodipine Besylate 10 mg 01/13/22 09:00 Amlodipine Besylate 5 Mg Tablet PO DAILY [facility] Atorvastatin Calcium 40 mg 01/13/22 09:00 Atorvastatin 40 Mg Tablet PO DAILY [facility] Bumetanide 1 mg 01/13/22 09:00 Bumetanide 1 Mg Tablet PO BID [facility] Calcium Carbonate 200 mg 01/13/22 00:06 Calcium Carbonate (Tums) 500 Mg (200 Mg Elemental) PO Q6H PRN Indigestion, nausea Dextrose 12.5 gm 01/13/22 00:07 Dextrose 50% 25 Gm/50 Ml Syringe IV PUSH PRN PRN Hypoglycemia Protocol Fentanyl Citrate 25 mcg 01/13/22 15:06 Fentanyl Citrate Inj (*Crx) 100 Mcg/2 Ml Vial IV PUSH Q2M PRN Pain Furosemide 40 mg 01/13/22 09:00 Furosemide 40 Mg Tablet PO MOWEFR [facility] Gentamicin Sulfate 1 applic 01/13/22 09:00 Gentamicin Sulfate 0.1% Oint 15 Gm Tube TOPICAL DAILY [facility] Glipizide 10 mg 01/13/22 09:00 Gli
--- NOTE | 2022-01-13 13:40 | PC.NURSE ---
To OR via bed.
[2022-01-13] MEDS: KETOROLAC 15 MG/ML VIAL (*BKC) IV PUSH (14:05)
--- NOTE | 2022-01-13 14:06 | SUR.PREOP ---
pt refuses to speak,when asked to speak nods head negative.
--- NOTE | 2022-01-13 14:21 | WPDANESEPPF ---
Anes - Initial Pre Proc Eval Procedure: Operation Date: 01/13/22 14:30 Proposed Procedures p Exchange Tunelled Dialysis Catheter - Mike Tilley MD Date/Time: 01/13/22 14:21 Surgeon: Taylor Dodd PA-C Pre Op Diagnosis: GLENN Patient Data Age: 46 Gender: M Height: 1.65 m Weight: 84.2 kg Last Vital Signs Temp 98.1 F 01/13/22 13:50 Pulse 74 01/13/22 13:50 Resp 14 01/13/22 13:50 BP 182/66 H 01/13/22 13:50 Pulse Ox 99 01/13/22 13:50 O2 Del Method Room Air 01/13/22 13:50 Allergies Allergy/AdvReac Type Severity Reaction Status Date / Time gadobenic acid AdvReac Unconscious Verified 01/12/22 17:14 [From contrast - MRI] Home Medications Medication Instructions Recorded Confirmed Type bumetanide 1 mg tablet 1 mg PO BID #60 tabs 02/25/21 01/12/22 Rx amlodipine 10 mg tablet 10 mg PO DAILY 05/21/21 01/12/22 History glipizide 10 mg tablet 10 mg PO DAILY 05/21/21 01/12/22 History aspirin 81 mg chewable tablet 81 mg PO DAILY@0800 #30 tabs 06/30/21 01/12/22 Rx (Children's Aspirin) atorvastatin 40 mg tablet 40 mg PO DAILY #30 tabs 06/30/21 01/12/22 Rx calcium carbonate 500 mg calcium 200 mg PO Q6H PRN Indigestion, 06/30/21 01/12/22 Rx (1,250 mg) chewable tablet nausea #30 tabs furosemide 40 mg tablet 40 mg PO MOWEFR #30 tabs 06/30/21 01/12/22 Rx lisinopril 20 mg tablet 20 mg PO QAM #30 tabs 06/30/21 01/12/22 Rx isosorbide mononitrate 60 mg 60 mg PO PRN PRN Hypertension 08/02/21 01/12/22 History tablet,extended release 24 hr insulin glargine 100 unit/mL (3 5 unit subcut HS 01/12/22 01/12/22 History mL) subcutaneous pen (Lantus Solostar U-100 Insulin) metoprolol ta-hydrochlorothiaz See Rx Instructions .Route .COMPLEX 01/12/22 01/12/22 History multivitamin with minerals-folic 1 tablet PO DAILY 01/12/22 01/12/22 History acid 0.4 mg tablet Laboratory Tests 01/12/22 01/13/22 01/13/22 21:20 05:45 05:45 WBC 9.2 K/mm3 K/mm3 (4.5-10.0) RBC 3.33 M/mm3 L M/mm3 (4.6-6.20) Hgb 10.1 g/dL L g/dL (14.0-18.0) Hct 31.8 % L % (42.0-52.0) MCV 95.5 fl fl (80-100) MCH 30.3 pg pg (26-34) MCHC 31.8 g/dl L g/dl (32-36) RDW 12.4 % % (11.5-14.5) Plt Count 225 k/mm3 k/mm3 (150-375) MPV 10.6 fl H fl (7.4-10.4) Immature Gran % (Auto) 0.2 % % (0-0.5) Neut % (Auto) 60.5 % % (45.5-73.1) Lymph % (Auto) 18.3 % % (18.3-44.2) Canadian % (Auto) 7.5 % % (2.6-8.5) Eos % (Auto) 13.0 % H % (0-4.4) Baso % (Auto) 0.5 % % (0.2-1.2) Lymph # (Auto) 1.69 K/mm3 K/mm3 (0.9-3.2) Canadian # (Auto) 0.7 K/mm3 H K/mm3 (0.1-0.6) Eos # (Auto) 1.2 K/mm3 H K/mm3 (0-0.3) Baso # (Auto) 0.1 K/mm3 K/mm3 (0.0-0.1) Abs Immat Gran (auto) 0.02 K/mm3 K/mm3 (0.00-0.031) Absolute Neuts (auto) 5.6 K/mm3 K/mm3 (1.3-6.7) Absolute Nucleated RBC 0.0 K/mm3 K/mm3 (0.0-0.012) Nucleated RBC % 0.0 % % (0.0-0.2) Sodium 136 mmol/L L mmol/L (137-145) Potassium 4.4 mmol/L mmol/L (3.4-5.0) Chloride 103 mmol/L mmol/L (98-107) Carbon Dioxide 29 mmol/L mmol/L (22-30) Anion Gap 4 mmol/L L mmol/L (8-16) BUN 48 mg/dL H mg/dL (9-20) Creatinine 3.50 mg/dL H mg/dL (0.7-1.3) Estim Creat Clear Calc 24 ml/min ml/min Estimated GFR 19 L (59 - ) Glucose 134 mg/dL H mg/dL (65-110) POC Capillary Glucose 210 mg/dl H mg/dl (65-105) Calcium 8.4 mg/dL mg/dL (8.4-10.2) Phosphorus 4.8 mg/dL H mg/dL (2.5-4.5) Magnesium 2.2 mg/dL mg/dL (1.6-2.3) 01/13/22 01/13/22 07:32 11:42 WBC RBC Hgb Hct MCV MCH MCHC RDW Plt Count MPV I
[2022-01-13] MEDS: SODIUM CHLORIDE 0.9% IV 500 ML 30 ML IV CONT (14:52)
--- NOTE | 2022-01-13 15:06 | WPDHPUPDATE1 ---
History and Physical Update Update Date/Time: 01/13/22 15:06 History and Physical has been reviewed, including an updated exam of the patient. There are NO changes in the patient's condition. Risks, benefits, and alternatives have been discussed and questions answered. Patient agrees to proceed with procedure.
[2022-01-13] MEDS: ceFAZolin 2 GM/D5W 50 ML 2 GM/50 ML BAG IVPB (18:07)
[2022-01-13 18:24] LABS: Total Volume 24 Hour Urine 800 ml
[2022-01-13] MEDS: LIDO 2%/EPINEPHRINE 1:100,000 20 ML VIAL INFILTRATE (18:33)
[2022-01-13] MEDS: HEPARIN SODIUM, PORCINE 10,000 UNITS/10 ML VIAL 10000 UNITS IV PUSH (18:34)
[2022-01-13] MEDS: HEPARIN SODIUM 1,000 UNITS/ML VIAL 1000 UNITS IV PUSH (18:35)
[2022-01-13 18:37] LABS: Creatinine 24 Hour Urine 0.7 gm/24 (1.0-2.0); Creatinine Urine 94.2 mg/dL
[2022-01-13 19:29] LABS: Glucose Point of Care 121 mg/dl (65-105)
--- NOTE | 2022-01-13 19:34 | W.PM.PROC2 ---
Procedure Note - Detailed Date of Procedure 01/13/22 Pre-op Diagnosis 1.Malfunctioning tunneled dialysis catheter 2. End-stage renal disease. Post-op Diagnosis Same Procedure Performed 1. Replacement of tunneled dialysis catheter over a wire 2. Removal of malfunctioning tunneled dialysis catheter Surgeon Mike Tilley MD Stage Settings Painter SILVERIO Edwards.OR first sampler Anesthesia Other (GIVS) Indications Over the last 2 weeks the current tunneled dialysis catheter has been flowing more and more poorly. Cathflo has been given several times without it improving for very long. Therefore, the patient was admitted yesterday and chest x-ray done showing no change in position of the catheter and no kinks however because of the poor functioning and no other means of dialysis I was asked to place a new dialysis catheter. Findings Normal appearing tunneled dialysis catheter. Somewhat enlarged heart by fluoroscopy and chest x-ray. Description of Procedure The patient was placed in the supine position on the operating table and after induction of adequate mask general anesthesia by the nurse certified registered nurse anesthetist ([facility]), we carefully rotated the patient's head and tilted slightly it to the left then prepping both sides of the neck and chest with chlorhexidine. We also prepped around the exit of the old tunneled dialysis catheter with Betadine and removed all the stitches holding the old catheter prior to prepping. I also tied a long silk suture around 1 limb of the legs of the old tunneled dialysis catheter and stretched this down and taped it to the table by his hand so the circulating nurse could pull this out from under the drapes when we removed it. Waiting 3 minutes I carefully draped the patient, and we performed a time-out confirming the patient's site of surgery. Because of the patients size, and the fact that I knew the previous catheter was a 32 cm catheter, a 28 cm DuraFlow catheter was selected. Following this the palpable catheter near the entry site to the Rt. jugular vein on the patient's right neck was anesthetized wit 2 % xylocaine with epi and I also anesthetized to other areas over the catheter such that we could cut down on it if needed I also anesthetized just above the exit site of the current catheter with 2% xylocaine with epinephrine. Following this our 1st incision was directly over the palpable catheter on the lateral right neck. It was about a 1 cm incision that we dissected down with mosquito forceps and circumvented the catheter and lifted it up and out of the tunnel for a length of approximately 3 cm of the catheter was pulled out of the lower neck and chest we then held this with a DeBakey. Following this we prepared the J guidewire of the new catheter and I cut a hole on 1 side of the old catheter and we inserted the guidewire. Then bringing the C-arm in over the pt. we carefully watched as the guidewire was advanced down the current catheter and through the opening on the distal end of the catheter and into the right atrium. Then holding the guide tight I then cut the other side of the catheter letting the distal end go. We then pulled the proximal part of the catheter up and over the guidewire and out of the patient and as I did this my assistant grocery store manager began immediately putting pressure on the incision around the guidewire as we did this. There was not a lot of bleeding. Following this we obtained the medium-sized dilator from the new kit and dilated the tract over the wire and left this dilator in place pushing down with some pressure on it and holding the wire carefully in that position. We checked with C-arm again in the guidewire was still in the central venous system. I then made a vertical cut down right at the exit site of the old catheter and Dissected out the cuff of the old dialysis catheter which was just 0.5 cm above that exit site. I carefully dissected around this with a mosquito hemostat until was free and then pulled the old catheter di
--- NOTE | 2022-01-13 20:30 | PC.NURSE ---
He returned from surgery, pt upset that all we have available is turkey sandwich at this time. Pt threw sandwich and water on the floor and said he didnt want it. Niece Birdie called and asked if she could bring food in, went into the room to tell him that she would be calling him and bringing him food. He said I dont care, get out , informed him that I was sitting the phone at his reach. As I turned to walk out the door, he knocked the phone into the floor. Pt is refusing meds and vitals at this time.
[2022-01-13 22:32] LABS: Glucose Point of Care 115 mg/dl (65-105)
[2022-01-14] VITALS (22 sets, daily range): BP systolic 120–187; BP diastolic 69–91; PULSE 52–86; RESP 16–18; TEMP 36.3–37; O2SAT 97–100; BMI 31.4
[2022-01-14] MEDS: HYDROcodone/acetaminophen (*CRX) 7.5-325 MG TABLET 1 TAB PO ×2 (00:34→06:15)
[2022-01-14 06:17] LABS: Hematocrit 32.1 % (42.0-52.0); Mean Corpuscular HGB Conc 31.2 g/dl (32-36); Mean Corpuscular Hemoglobin 30.3 pg (26-34); Mean Corpuscular Volume 97.3 fl (80-100); Mean Platelet Volume 10.7 fl (7.4-10.4); Platelet Count Result 210 k/mm3 (150-375); Red Cell Distribution Width 12.5 % (11.5-14.5); White Blood Count 9.7 K/mm3 (4.5-10.0)
[2022-01-14 06:25] LABS: Hemoglobin A1C 7.7 % (<5.7)
[2022-01-14 06:27] LABS: Anion Gap 9 mmol/L (8-16); Blood Urea Nitrogen 55 mg/dL (9-20); Calcium 8.3 mg/dL (8.4-10.2); Carbon Dioxide 25 mmol/L (22-30); Chloride 106 mmol/L (98-107); Estimated CRCL calculation 22 ml/min; Estimated Glomerular Filt Rate 17; Glucose 183 mg/dL (65-110); Potassium 4.6 mmol/L (3.4-5.0); Sodium 140 mmol/L (137-145)
[2022-01-14 07:43] LABS: Glucose Point of Care 154 mg/dl (65-105)
[2022-01-14] MEDS: hydroCHLOROthiazide 25 MG TABLET PO ×2 (08:36→17:44)
[2022-01-14] MEDS: THERAPEUTIC MULTIVITAMINS/MINERALS TAB (*BKC) 1 TABLET PO (08:36)
[2022-01-14] MEDS: METOPROLOL TARTRATE 50 MG TAB PO ×2 (08:36→17:44)
[2022-01-14] MEDS: ATORVASTATIN 40 MG TABLET PO (08:36)
[2022-01-14] MEDS: BUMETANIDE 1 MG TABLET PO ×2 (08:37→17:44)
[2022-01-14] MEDS: lisinopriL 20 MG TABLET PO (08:37)
[2022-01-14] MEDS: glipiZIDE 5 MG TABLET 10 MG PO (08:37)
[2022-01-14] MEDS: amLODIPine BESYLATE 5 MG TABLET 10 MG PO (08:37)
[2022-01-14] MEDS: GENTAMICIN SULFATE 0.1% OINT 15 GM TUBE 1 APPLIC TOPICAL (08:38)
[2022-01-14 11:10] LABS: Hepatitis B Surface Antigen Negative (Negative)
[2022-01-14 11:28] LABS: Hepatitis B Surface Anti Res Negative
--- NOTE | 2022-01-14 12:23 | PM.PNGS ---
Progress Note: A&P Assessment and Plan (1) Hemodialysis catheter malfunction: Code(s): T82.41XA - Breakdown (mechanical) of vascular dialysis catheter, initial encounter Status: Acute Assessment and Plan: Old catheter has now been removed and a new 28 cm tunneled dialysis catheters in place. Postop chest x-ray shows catheter in good position without kinking. (2) End stage renal disease: Code(s): N18.6 - End stage renal disease Status: Acute Assessment and Plan: As per Nephrology. Subjective Subjective Date/Time Seen: 01/14/22 09:53 Post Op day: 1 ( Doing well other than some incisional swelling postop day 1 status post exchange of tunneled dialysis catheter.) Interval history: States he has some pain on his neck but otherwise is doing well. Review of Systems Review of Systems: All systems reviewed & are unremarkable except as noted in HPI and below Constitutional: Constitutional: Reports as per HPI, Denies chills and Denies fever(s) Cardiovascular: Cardiovascular: Denies chest pain and Denies dyspnea Respiratory: Respiratory: Reports no additional respiratory complaints and Denies dyspnea Gastrointestinal: Gastrointestinal: Reports as per HPI and Denies bloating Musculoskeletal: Musculoskeletal: Reports no additional musculoskeletal complaints Exam Narrative: Limited examination: Exit site and catheter on right chest appear to be in normal position and without other problems other than some bloody drainage on the dressing. Neck: Mild swelling at the incision sites on the right neck with no significant drainage no erythema to suggest infection. Objective Data Vital Signs Vital Signs: Vital Signs - 24 hr 01/13/22 13:50 01/13/22 19:11 01/13/22 19:40 Temperature 36.7 C 36.7 C Pulse Rate 74 93 81 Respiratory Rate 14 24 H 20 Blood Pressure 182/66 H 163/75 H 127/72 Pulse Oximetry 99 100 96 Oxygen Delivery Room Air Simple Face Mask Room Air Oxygen Flow Rate 8 01/13/22 19:52 01/13/22 19:25 01/13/22 20:00 Temperature Pulse Rate 72 81 Respiratory Rate 17 23 H Blood Pressure 119/70 124/72 Pulse Oximetry 96 100 Oxygen Delivery Room Air Room Air Room Air Oxygen Flow Rate 01/13/22 20:09 01/13/22 20:39 01/13/22 21:39 Temperature 36.3 C L 36.1 C L 36.4 C L Pulse Rate 92 92 81 Respiratory Rate 18 18 18 Blood Pressure 111/72 134/89 149/82 H Pulse Oximetry 100 100 100 Oxygen Delivery Oxygen Flow Rate 01/14/22 01:39 01/14/22 05:18 01/14/22 05:39 Temperature 36.3 C L 36.5 C Pulse Rate 86 76 Respiratory Rate 18 18 Blood Pressure 166/83 H 135/87 Pulse Oximetry 99 97 100 Oxygen Delivery Room Air Oxygen Flow Rate 01/14/22 09:39 01/14/22 11:26 01/14/22 11:22 Temperature 36.9 C 36.6 C Pulse Rate 63 61 64 Respiratory Rate 18 16 Blood Pressure 140/72 172/84 H 182/91 H Pulse Oximetry 97 Oxygen Delivery Oxygen Flow Rate 01/14/22 11:30 Temperature Pulse Rate 57 L Respiratory Rate Blood Pressure 187/89 H Pulse Oximetry Oxygen Delivery Oxygen Flow Rate Intake/Output Intake/Output: Intake & Output 01/11/22 01/12/22 01/13/22 01/14/22 23:59 23:59 23:59 23:59 Intake Total 290 125 820 Output Total 325 1050 500 Balance -35 -925 320 Meds/Results Medications: Active Medications Generic Name Dose Route Start Last Admin Trade Name Freq PRN Reason Stop Dose Admin Acetaminophen 500 mg 01/13/22 19:54 Acetaminophen 500 Mg Tablet PO Q6H PRN Mild Pain (1-3) or Fever Hydrocodone Bitart/Acetaminophen 1 tab 01/13/22 19:54 Hydrocodone/Acetaminophen (*Crx) 5-325 Mg Tablet PO Q6H PRN Pain Rated 4-6 Hydrocodone Bitart/Acetaminophen 1 tab 01/13/22 19:54 01/14/22 06:15 Hydrocodone/Acetaminophen (*Crx) 7.5-325 Mg Tablet PO 1 tab Q4H PRN Administration Pain Rated 7-10 Amlodipine Besylate 10 mg 01/13/22 09:00 01/14/22 0
--- NOTE | 2022-01-14 13:37 | PM.PNNEP ---
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 is going to be a problem due to insurance issues (3) Hypertension: Qualifiers: Hypertension type: unspecified Qualified Code(s): I10 - Essential (primary) hypertension Code(s): I10 - Essential (primary) hypertension Status: Chronic Assessment and Plan: reasonable control at this time follow trend of hemodynamics (4) Combined systolic and diastolic congestive heart failure: Code(s): I50.40 - Unspecified combined systolic (congestive) and diastolic (congestive) heart failure Status: Chronic Assessment and Plan: appears compensated at this time ongoing fluid removal with dialysis to maintain euvolemia (5) Anemia: Qualifiers: Anemia type: due to chronic kidney disease Chronic kidney disease stage: stage 5, not on chronic dialysis Qualified Code(s): N18.5 - Chronic kidney disease, stage 5; D63.1 - Anemia in chronic kidney disease Code(s): D64.9 - Anemia, unspecified Status: Chronic Assessment and Plan: due to ESRD Epogen with HD follow trend of H/H (6) Diabetes: Code(s): E11.9 - Type 2 diabetes mellitus without complications Status: Chronic Assessment and Plan: follow accuchecks on Lantus and SSI Will continue to follow - not opposed to discharge after dialysis today if otherwise medically stable. Subjective Date/time seen: 01/14/22 13:37 Tolerating dialysis treatment at the time of my visit (seen on HD at ~ 1:30PM); tolerated new HD catheter placement yesterday evening without any issue or problems; no apparent distress voiced; no issues/events overnight or earlier this AM. Exam Narrative: General: WD/WN male in NAD Heart: normal S1 and S2; no rub Lungs: clear to auscultation Abdomen: soft, nontender, nondistended, positive bowel sounds Extremities: no cyanosis or clubbing; no edema Skin: warm and dry Objective Data Vital Signs Vital Signs: Vital Signs Temp Pulse Resp BP Pulse Ox O2 Del Method O2 Flow Rate 01/14/22 13:15 53 L 124/69 01/14/22 13:00 52 L 140/76 01/14/22 12:45 54 L 143/74 H 01/14/22 12:30 59 L 126/71 01/14/22 12:15 60 120/70 01/14/22 12:00 59 L 139/72 01/14/22 13:30 57 L 133/69 01/14/22 11:45 58 L 144/75 H 01/14/22 11:30 57 L 187/89 H 01/14/22 11:22 36.6 C 64 16 182/91 H 01/14/22 11:26 61 172/84 H 01/14/22 09:39 36.9 C 63 18 140/72 97 01/14/22 05:39 36.5 C 76 18 135/87 100 01/14/22 05:18 97 Room Air 01/14/22 01:39 36.3 C L 86 18 166/83 H 99 01/13/22 21:39 36.4 C L 81 18 149/82 H 100 01/13/22 20:39 36.1 C L 92 18 134/89 100 01/13/22 20:09 36.3 C L 92 18 111/72 100 01/13/22 20:00 Room Air 01/13/22 19:25 81 23 H 124/72 100 Room Air 01/13/22 19:52 72 17 119/70 96 Room Air 01/13/22 19:40 81 20 127/72 96 Room Air 01/13/22 19:11 36.7 C 93 24 H 163/75 H 100 Simple Face Mask 8 01/13/22 13:50 36.7 C 74 14 182/66 H 99 Room Air Intake/Output Intake/Output: Intake & Output 01/11/22 01/12/22 01/13/22 01/14/22 23:59 23:59 23:59 23:59 Intake Total 290 125 820 Output Total 325 1050 500 Balance -35 -925 320 Meds/Results Medications: Active Medications Generic Name Dose Route Start Last Admin Trade Name Freq PRN Reason Stop Dose Admin Acetamino
--- NOTE | 2022-01-14 13:40 | P.DS_ITS ---
DS: Admitting Diagnosis Discharge Date 01/14/2022 <Taylor Dodd PA-C - Last Filed: 01/14/22 16:27> Admitting Diagnosis Tunneled dialysis catheter malfunction <Taylor Dodd PA-C - Last Filed: 01/14/22 16:27> DS: Discharge Diagnosis Discharge Diagnosis (1) Hemodialysis catheter malfunction: Code(s): T82.41XA - Breakdown (mechanical) of vascular dialysis catheter, initial encounter <Taylor Dodd PA-C - Last Filed: 01/14/22 16:27> Status: Acute <Taylor Dodd PA-C - Last Filed: 01/14/22 16:27> Assessment and Plan: Dialysis catheter had been poorly functioning for a couple of weeks and then unfortunately failed and he was not able to receive dialysis. * He was seen in consultation by General surgery * On 01/13 he had removal of malfunctioning tunneled dialysis catheter and replacement over wire performed by Dr. Tilley. * Patient tolerated procedure well. * Will continue with daily dressing changes to catheter to be completed by [facility] staff * Care coordination following. Case management from his dialysis facility is working on insurance coverage for more permanent dialysis access. <Taylor Dodd PA-C - Last Filed: 01/14/22 16:27> (2) End-stage renal disease on hemodialysis: Code(s): N18.6 - End stage renal disease; Z99.2 - Dependence on renal dialysis <Taylor Dodd PA-C - Last Filed: 01/14/22 16:27> Status: Acute <Taylor Dodd PA-C - Last Filed: 01/14/22 16:27> Assessment and Plan: Managed with hemodialysis 3 times per week * 24 hour urine creatinine collection completed during admission. * Received dialysis via new catheter on 01/14/22. * Continue with regular dialysis schedule. * Seen in consultation by nephrology during admission. <Taylor Dodd PA-C - Last Filed: 01/14/22 16:27> (3) Hypertension: Qualifiers: Hypertension type: unspecified Qualified Code(s): I10 - Essential (primary) hypertension <Taylor Dodd PA-C - Last Filed: 01/14/22 16:27> Code(s): I10 - Essential (primary) hypertension <Taylor EspinosaHugh HamNASRA barnardC - Last Filed: 01/14/22 16:27> Status: Chronic <Taylor CheekNASRA barnardC - Last Filed: 01/14/22 16:27> Assessment and Plan: Blood pressures reviewed and were slightly elevated above target. * Continue home regimen of amlodipine, lisinopril, metoprolol, hydrochlorothiazide * Continue to monitor blood pressures at nursing facility and follow up with PCP for further monitoring <Taylor EspinosaNASRA BarraganC - Last Filed: 01/14/22 16:27> (4) Combined congestive systolic and diastolic heart failure: Qualifiers: Heart failure chronicity: acute on chronic Qualified Code(s): I50.43 - Acute on chronic combined systolic (congestive) and diastolic (congestive) heart failure <Taylor EspinosaNASRA BarraganC - Last Filed: 01/14/22 16:27> Code(s): I50.40 - Unspecified combined systolic (congestive) and diastolic (congestive) heart failure <Taylor EspinosaHugh HamNASRA barnardC - Last Filed: 01/14/22 16:27> Status: Acute <Taylor EspinosaHugh HamNASRA barnardC - Last Filed: 01/14/22 16:27> Assessment and Plan: Clinically compensated. * Volume status monitored <Taylor EspinosaNASRA BarraganC - Last Filed: 01/14/22 16:27> (5) Insulin dependent diabetes mellitus: Status: Chronic <Taylor FranciscaHugh Dodd PA-C - Last Filed: 01/14/22 16:27> Assessment and Plan: A1c is 7.7. Blood sugars were were controlled * Managed during admission with Accu-Cheks, sliding scale insulin, hypoglycemic protocol * Continue home glipizide
--- NOTE | 2022-01-14 13:40 | PM.DS ---
DS: Admitting Diagnosis Discharge Date 01/14/2022 <Taylor Dodd PA-C - Last Filed: 01/14/22 16:27> Admitting Diagnosis Tunneled dialysis catheter malfunction <Taylor Dodd PA-C - Last Filed: 01/14/22 16:27> DS: Discharge Diagnosis Discharge Diagnosis (1) Hemodialysis catheter malfunction: Code(s): T82.41XA - Breakdown (mechanical) of vascular dialysis catheter, initial encounter <Taylor Dodd PA-C - Last Filed: 01/14/22 16:27> Status: Acute <Taylor Dodd PA-C - Last Filed: 01/14/22 16:27> Assessment and Plan: Dialysis catheter had been poorly functioning for a couple of weeks and then unfortunately failed and he was not able to receive dialysis. He was seen in consultation by General surgery On 01/13 he had removal of malfunctioning tunneled dialysis catheter and replacement over wire performed by Dr. Tilley. Patient tolerated procedure well. Will continue with daily dressing changes to catheter to be completed by [facility] staff Care coordination following. Case management from his dialysis facility is working on insurance coverage for more permanent dialysis access. <Taylor Dodd PA-C - Last Filed: 01/14/22 16:27> (2) End-stage renal disease on hemodialysis: Code(s): N18.6 - End stage renal disease; Z99.2 - Dependence on renal dialysis <Taylor Dodd PA-C - Last Filed: 01/14/22 16:27> Status: Acute <Taylor Dodd PA-C - Last Filed: 01/14/22 16:27> Assessment and Plan: Managed with hemodialysis 3 times per week 24 hour urine creatinine collection completed during admission. Received dialysis via new catheter on 01/14/22. Continue with regular dialysis schedule. Seen in consultation by nephrology during admission. <Taylor Dodd PA-C - Last Filed: 01/14/22 16:27> (3) Hypertension: Qualifiers: Hypertension type: unspecified Qualified Code(s): I10 - Essential (primary) hypertension <Taylor Dodd PA-C - Last Filed: 01/14/22 16:27> Code(s): I10 - Essential (primary) hypertension <Taylor Dodd PA-C - Last Filed: 01/14/22 16:27> Status: Chronic <Taylor JHugh Dodd PA-C - Last Filed: 01/14/22 16:27> Assessment and Plan: Blood pressures reviewed and were slightly elevated above target. Continue home regimen of amlodipine, lisinopril, metoprolol, hydrochlorothiazide Continue to monitor blood pressures at nursing facility and follow up with PCP for further monitoring <Taylor Dodd PA-C - Last Filed: 01/14/22 16:27> (4) Combined congestive systolic and diastolic heart failure: Qualifiers: Heart failure chronicity: acute on chronic Qualified Code(s): I50.43 - Acute on chronic combined systolic (congestive) and diastolic (congestive) heart failure <Taylor Dodd PA-C - Last Filed: 01/14/22 16:27> Code(s): I50.40 - Unspecified combined systolic (congestive) and diastolic (congestive) heart failure <Taylor Dodd PA-C - Last Filed: 01/14/22 16:27> Status: Acute <Taylor Dodd PA-C - Last Filed: 01/14/22 16:27> Assessment and Plan: Clinically compensated. Volume status monitored <Taylor Dodd PA-C - Last Filed: 01/14/22 16:27> (5) Insulin dependent diabetes mellitus: Status: Chronic <Taylor Dodd PA-C - Last Filed: 01/14/22 16:27> Assessment and Plan: A1c is 7.7. Blood sugars were were controlled Managed during admission with Accu-Cheks, sliding scale insulin, hypoglycemic protocol Continue home glipizide and low-dose basal insulin 5 units q.h.s. <Taylor Dodd PA-C - Last Filed: 01/14/22 16:27> (6) Decubitus ulcer of sacral region, unstageable: Onset Date: ~05/2021 <Taylor Dodd PA-C - Last Filed: 01/14/22 16:27> Code(s): L89.150 - Pressure ulcer of sacral region, unstageable <NASRA AmorC - Last Isaak
--- NOTE | 2022-01-14 13:49 | PCNSR ---
On 01/14/22, the student, Olegario Trammell, provided care and completed [facility] documentation on this patient. I have reviewed the student's documentation and agree with the findings.
[2022-01-14] MEDS: HEPARIN SODIUM 1,000 UNITS/ML VIAL 5000 UNITS (14:30)
[2022-01-14] MEDS: EPOETIN ALFA-EPBX 4,000 UNITS/ML VIAL 4000 UNITS IV PUSH (14:30)
[2022-01-14 14:41] LABS: EDCOVIDSCREEN Negative (Negative)
[2022-01-14 15:15] LABS: Glucose Point of Care 114 mg/dl (65-105)
[2022-01-14 16:42] LABS: Glucose Point of Care 217 mg/dl (65-105)
[2022-01-14] MEDS: INSULIN ASPART (*BKC) 100 UNITS/ML SUB-Q (17:43)
== END 2022-01-14 18:00 ==
LOC: ANHED 12:43 → ANH3MEDSUR 14:08
PROVIDERS: General Practice; Internal Medicine Nephrology; Physician Assistant; Surgery; Admitting Provider Internal Medicine; Emergency Provider Nurse Practitioner Family; PCP Internal Medicine; Visit Provider Family Medicine
PROC: (CPT 36908; principal; 2022-01-13 14:30)
DX: T82.41XA Breakdown (mechanical) of vascular dialysis catheter, initial encounter (principal); N18.6 End stage renal disease; Z99.2 Dependence on renal dialysis; L89.153 Pressure ulcer of sacral region, stage 3; D63.1 Anemia in chronic kidney disease; E11.22 Type 2 diabetes mellitus with diabetic chronic kidney disease; E11.40 Type 2 diabetes mellitus with diabetic neuropathy, unspecified; E11.51 Type 2 diabetes mellitus with diabetic peripheral angiopathy without gangrene; E11.69 Type 2 diabetes mellitus with other specified complication; I50.43 Acute on chronic combined systolic (congestive) and diastolic (congestive) heart failure; I13.2 Hypertensive heart and chronic kidney disease with heart failure and with stage 5 chronic kidney disease, or end stage renal disease; I43 Cardiomyopathy in diseases classified elsewhere; H54.7 Unspecified visual loss; I34.0 Nonrheumatic mitral (valve) insufficiency; K57.90 Diverticulosis of intestine, part unspecified, without perforation or abscess without bleeding; N25.0 Renal osteodystrophy; R60.0 Localized edema; Z89.511 Acquired absence of right leg below knee; Z79.4 Long term (current) use of insulin; Z79.84 Long term (current) use of oral hypoglycemic drugs; Z79.82 Long term (current) use of aspirin; Z20.822 Contact with and (suspected) exposure to COVID-19
CPT/HCPCS: 36581; 36415; 71045; 77001; 80048; 80053; 81050; 82570; 82948; 83036; 83735; 84100; 85025; 85027; 85610; 85730; 86706; 87040; 87077; 87340; 87426; 96361; 96374; 99285; A9270; C1750; C9803; G0257; G0378; G0379; J0690; J1644; J1815; J1885; J2250; J2704; J3010; J7030; J7040; Q5105

== ENCOUNTER 2023-02-13 04:57 | Emergency (ER) | payer MEDICAID, SELFPAY ==
[2023-02-13] VITALS (15 sets, daily range): BP systolic 78–102; BP diastolic 59–70; PULSE 68–82; RESP 0–18; TEMP 36.7; O2SAT 84–99
--- NOTE | ~2023-02-13 | XR_ITS ---
XR chest 2V DATE: 02/13/2023 07:31 INDICATION: Chest pain, neck pain, headache after dialysis TECHNIQUE: AP and lateral views COMPARISON: 01/13/2022 portable AP chest FINDINGS: Right internal jugular dialysis catheter, distal tip overlying superior cavoatrial area. There is infiltrate and/atelectasis in the right lower lung. The lungs otherwise appear essentially c lear. Normal heart size. No pulmonary vascular congestion or pneumothorax. IMPRESSION: Right lower lung infiltrate or atelectasis Reviewed, dictated and finalized at location A.
--- NOTE | 2023-02-13 05:02 | ED.CHESTPAIN ---
HPI - Chest Pain General Chief Complaint: Chest Pain <David Ladd MD - Last Filed: 02/13/23 06:09> Stated Complaint: chest pain <David Ladd MD - Last Filed: 02/13/23 06:09> Time Seen by Provider: 02/13/23 05:01 <David Ladd MD - Last Filed: 02/13/23 06:09> History of Present Illness HPI narrative: 47-year-old male with end-stage renal disease and CHF presented the emergency department for evaluation of intermittent chest pain and headache. Patient is unable to say how long he has had the chest pain but had told the nursing staff that he was having chest pain for greater than 24 hours, patient states he is no longer having any chest pain. Patient reports he does have some headache. <David Ladd MD - Last Filed: 02/13/23 06:09> Related Data Home Medications: Home Medications Medication Instructions Recorded Confirmed amlodipine 10 mg tablet 10 mg PO DAILY 05/21/21 01/12/22 glipizide 10 mg tablet 10 mg PO DAILY 05/21/21 01/12/22 isosorbide mononitrate 60 mg 60 mg PO PRN PRN Hypertension 08/02/21 01/12/22 tablet,extended release 24 hr insulin glargine 100 unit/mL (3 5 unit subcut HS 01/12/22 01/12/22 mL) subcutaneous pen (Lantus Solostar U-100 Insulin) metoprolol ta-hydrochlorothiaz See Rx Instructions .Route .COMPLEX 01/12/22 01/12/22 multivitamin with minerals-folic 1 tablet PO DAILY 01/12/22 01/12/22 acid 0.4 mg tablet <David Ladd MD - Last Filed: 02/13/23 06:09> Allergies/Adverse Reactions: Allergies Allergy/AdvReac Type Severity Reaction Status Date / Time gadobenic acid AdvReac Unconscious Verified 01/12/22 17:14 [From contrast - MRI] <David Ladd MD - Last Filed: 02/13/23 06:09> Review of Systems Review of Systems: All systems reviewed & are unremarkable except as noted in HPI and below <David Ladd MD - Last Filed: 02/13/23 06:09> [facility] Past Medical History Medical History: Medical History Anemia in chronic illness EPO-persistent anemia. Combined congestive systolic and diastolic heart failure Mildly reduced LV systolic function with an EF of 40 to 45% and grade 2 diastolic dysfunction noted on echocardiogram dated 01/22/2021. Diverticulosis End-stage renal disease on hemodialysis Hypertension IgA nephropathy Insulin dependent diabetes mellitus Hemoglobin A1c was 10.9% on 01/23/2021. Complicated by gastric dysmotility, neuropathy, and nephropathy. Ischemic cardiomyopathy Lexiscan stress on 01/26/2021 showed a large area of severe infarct involving the apical lateral and mid to basal anterolateral and inferolateral segments of left ventricle on myocardial perfusion imaging with a left ventricular ejection fracture measuring 45%. 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 History of right below knee amputation <David Ladd MD - Last Filed: 02/13/23 06:09> Family History Family History: Family History Other Unknown family medical history <David Ladd MD - Last Filed: 02/13/23 06:09> Social History Social History: Social History (Updated 01/13/22 @ 00:00 by Lakshmi Lujan PA-C) Social History: The patient is now [facility]. Prior to that he was living in [place] with his sister, [id number]-er-sde, nieces, and nephews. Nonsmoker. No alcohol or illicit substance abuse. He designates his sister, Birdie Stroud, as his surrogate decision maker and he wishes to be a full code. Spiritual care concerns: No <To
--- NOTE | 2023-02-13 05:03 | ECG_ITS ---
Measurements Intervals [place] Rate: 68 P: 31 NJ: 165 QRS: -23 QRSD: 108 T: 145 QT: 416 QTc: 442 Interpretive Statements SINUS RHYTHM POSSIBLE LEFT ATRIAL ENLARGEMENT [-0.1mV P-WAVE IN V1/V2] BORDERLINE LEFT AXIS DEVIATION [QRS AXIS < -20] LEFT VENTRICULAR HYPERTROPHY AND ST-T CHANGE [VOLTAGE CRITERIA PLUS ST/T ABNORMALITY ABNORMAL ECG ] COMPARED TO ECG 07/26/2021 18:28:58 NO SIGNIFICANT CHANGES Electronically Signed On 02-13-2023 8:33:59 CDT by Blayne Quinonez M.D.
[2023-02-13 05:38] LABS: Basophils Absolute Auto 0.1 K/mm3 (0.0-0.1); Eosinophils Absolute Auto 0.8 K/mm3 (0-0.3); Eosinophils Percent Auto 8.1 % (0-4.4); Hematocrit 35.2 % (42.0-52.0); Hemoglobin 11.4 g/dL (14.0-18.0); Immature Granulocyte Absolute 0.08 K/mm3 (0.00-0.031); Immature Granulocyte Percent A 0.8 % (0-0.5); Immature Platelet Fraction Pct 10.7 % (0.9-11.2); Lymphocytes Absolute Auto 1.93 K/mm3 (0.9-3.2); Lymphocytes Percent Auto 19.8 % (18.3-44.2); Mean Corpuscular HGB Conc 32.4 g/dl (32-36); Mean Corpuscular Volume 92.6 fl (80-100); Monocytes Absolute Auto 0.9 K/mm3 (0.1-0.6); Monocytes Percent Auto 8.8 % (2.6-8.5); Neutrophils Percent Auto 61.5 % (45.5-73.1); Red Cell Distribution Width 12.6 % (11.5-14.5); White Blood Count 9.8 K/mm3 (4.5-10.0)
[2023-02-13 05:52] LABS: Alanine Aminotransferase 23 U/L (6-50); Albumin Level 4.3 g/dL (3.5-5.1); Alkaline Phosphatase 155 U/L (38-126); Anion Gap 9 mmol/L (8-16); Aspartate Amino Transferase 28 U/L (17-59); Bilirubin,Total 0.6 mg/dL (0.2-1.3); Blood Urea Nitrogen 33 mg/dL (9-20); Calcium 8.2 mg/dL (8.4-10.2); Carbon Dioxide 24 mmol/L (22-30); Chloride 97 mmol/L (98-107); Estimated Glomerular Filt Rate 13; Glucose 336 mg/dL (65-110); Potassium 4.1 mmol/L (3.4-5.0); Sodium 130 mmol/L (137-145)
[2023-02-13 05:58] LABS: Troponin I 0.027 ng/mL (0.000-0.034)
[2023-02-13 09:35] LABS: Troponin I 0.017 ng/mL (0.000-0.034)
== END 2023-02-13 11:30 ==
PROVIDERS: Emergency Medicine; Emergency Provider Preventive Medicine Aerospace Medicine; PCP Internal Medicine
DX: R07.89 Other chest pain (principal); H66.91 Otitis media, unspecified, right ear; J18.9 Pneumonia, unspecified organism; I50.40 Unspecified combined systolic (congestive) and diastolic (congestive) heart failure; I11.0 Hypertensive heart disease with heart failure; E11.9 Type 2 diabetes mellitus without complications; Z79.4 Long term (current) use of insulin
CPT/HCPCS: 36415; 71046; 80053; 84484; 85025; 85055; 93005; 99284

== ENCOUNTER 2023-02-17 01:37 | Emergency (ER) | payer MEDICAID, SELFPAY ==
--- NOTE | 2023-02-17 02:15 | ED.BACK ---
HPI - Back Pain/Injury General Chief Complaint: Back Pain/Injury <Chelle Dia PA-C - Last Filed: 02/17/23 04:20> Stated Complaint: UPPER BACK, JAW, & EAR PAINS <Chelle Dia PA-C - Last Filed: 02/17/23 04:20> Time Seen by Provider: 02/17/23 01:42 <Chelle Dia PA-C - Last Filed: 02/17/23 04:20> History of Present Illness HPI Narrative: 47 y/o M reports via EMS from [place] for evaluation for multiple complaints including back pain x3 days, facial pain, and pain to his tongue. He reports the back pain is throughout his entire back, worse with movement and palpation. Denies injury, fall or trauma to his back. Denies loss of bowel or bladder control or retention, no saddle anesthesia. States his back is better when he gets a massage. He reports pain to the R side of his tongue that hurts when he talks, thinks he may have bit his tongue. He is also complaining of facial pain overlying his maxillary sinuses. Denies chest pain, shortness of breath, abdominal pain, nausea or vomiting, fever. Of note, patient was seen in the ED and is being treated outpatient for pneumonia and otitis media with Augmentin and azithromycin. He has been on the antibiotics for 3 days. <Chelle Dia PA-C - Last Filed: 02/17/23 04:20> Related Data Home Medications: Home Medications Medication Instructions Recorded Confirmed amlodipine 10 mg tablet 10 mg PO DAILY 05/21/21 01/12/22 glipizide 10 mg tablet 10 mg PO DAILY 05/21/21 01/12/22 isosorbide mononitrate 60 mg 60 mg PO PRN PRN Hypertension 08/02/21 01/12/22 tablet,extended release 24 hr insulin glargine 100 unit/mL (3 5 unit subcut HS 01/12/22 01/12/22 mL) subcutaneous pen (Lantus Solostar U-100 Insulin) metoprolol ta-hydrochlorothiaz See Rx Instructions .Route .COMPLEX 01/12/22 01/12/22 multivitamin with minerals-folic 1 tablet PO DAILY 01/12/22 01/12/22 acid 0.4 mg tablet <Chelle Dia PA-C - Last Filed: 02/17/23 04:20> Allergies/Adverse Reactions: Allergies Allergy/AdvReac Type Severity Reaction Status Date / Time gadobenic acid AdvReac Unconscious Verified 01/12/22 17:14 [From contrast - MRI] <Chelle Dia PA-C - Last Filed: 02/17/23 04:20> Review of Systems Review of Systems: CONSTITUTIONAL: Denies fever, chills EYES: Denies visual changes, redness, or discharge. ENT: See HPI CARDIOVASCULAR: Denies chest pain, palpitations, or edema. RESPIRATORY: Denies cough or dyspnea. GASTROINTESTINAL: Denies abdominal pain, nausea, vomiting, or diarrhea. GENITOURINARY: Denies dysuria or hematuria. SKIN: Denies rash or itching. MUSCULOSKELETAL: See HPI NEUROLOGIC: Denies headache, numbness, dizziness, or weakness. PSYCHIATRIC: Denies anxiety or depression. <Chelle Dia PA-C - Last Filed: 02/17/23 04:20> [facility]LY [facility] Past Medical History Medical History: Medical History Anemia in chronic illness EPO-persistent anemia. Combined congestive systolic and diastolic heart failure Mildly reduced LV systolic function with an EF of 40 to 45% and grade 2 diastolic dysfunction noted on echocardiogram dated 01/22/2021. Diverticulosis End-stage renal disease on hemodialysis Hypertension IgA nephropathy Insulin dependent diabetes mellitus Hemoglobin A1c was 10.9% on 01/23/2021. Complicated by gastric dysmotility, neuropathy, and nephropathy. Ischemic cardiomyopathy Lexiscan stress on 01/26/2021 showed a large area of severe infarct involving the apical lateral and mid to basal anterolateral and inferolateral segments of left ventricle on myocardial perfusion imaging with a left ventricular ejection fracture measuring 45%. 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
[2023-02-17 03:02] VITALS: BP 110/87; PULSE 79; RESP 19; TEMP 36.6; O2SAT 96
[2023-02-17] MEDS: HYDROcodone/acetaminophen (*CRX) 5-325 MG TABLET 1 TAB PO (03:11)
[2023-02-17 03:37] VITALS: PULSE 74; RESP 20; O2SAT 100
[2023-02-17 04:22] VITALS: BP 117/74; PULSE 76; RESP 13; O2SAT 100
[2023-02-17 04:49] VITALS: BP 118/79; PULSE 74; RESP 14; O2SAT 100
== END 2023-02-17 05:40 ==
PROVIDERS: Emergency Provider Physician Assistant; PCP Internal Medicine
DX: M54.6 Pain in thoracic spine (principal); K12.0 Recurrent oral aphthae; I13.2 Hypertensive heart and chronic kidney disease with heart failure and with stage 5 chronic kidney disease, or end stage renal disease; E11.22 Type 2 diabetes mellitus with diabetic chronic kidney disease; N18.6 End stage renal disease; I50.40 Unspecified combined systolic (congestive) and diastolic (congestive) heart failure; D63.1 Anemia in chronic kidney disease; E11.21 Type 2 diabetes mellitus with diabetic nephropathy; E11.51 Type 2 diabetes mellitus with diabetic peripheral angiopathy without gangrene; I73.9 Peripheral vascular disease, unspecified; I25.5 Ischemic cardiomyopathy; N25.0 Renal osteodystrophy; Z99.2 Dependence on renal dialysis; Z89.511 Acquired absence of right leg below knee; Z79.82 Long term (current) use of aspirin; Z79.84 Long term (current) use of oral hypoglycemic drugs; Z79.4 Long term (current) use of insulin
CPT/HCPCS: 99283; A9270

== ENCOUNTER 2023-02-22 11:54 | Emergency (ER) | payer MEDICAID, SELFPAY ==
[2023-02-22] VITALS (25 sets, daily range): BP systolic 105–162; BP diastolic 54–95; PULSE 72–81; RESP 10–20; TEMP 36.5; O2SAT 80–100
--- NOTE | ~2023-02-22 | CT_ITS ---
CT scan of the Neck Technique: 2.5 mm axial scans were obtained through the neck after intravenous administration of 75 c c Omnipaque 350. Coronal and sagittal reconstructions of the neck were obtained. Dose reduction techn ique was used on this scan by utilizing automated exposure control and iterative reconstruction techn ique. The dose-length product (DLP) was 688.04 mGy-cm. Clinical History: Submandibular pain Findings: There is no evidence of any significant cervical lymphadenopathy. Several small, nonenlarged jugulo- digastric and posterior cervical lymph nodes are noted bilaterally. Parapharyngeal spaces appear norm al bilaterally. The parotid and submandibular glands appear normal. The pharyngeal mucosal spaces appear normal. No soft tissue masses are seen in the neck. The thyroid gland appears normal. Images of the lung apices reveal partially imaged small, possibly c hronic/loculated right pleural effusion. Shotty lymph nodes are present in the upper mediastinum. Impression: No significant abnormalities noted in the neck itself. Small partially imaged, possibly chronic centimeters loculated right pleural effusion. Shotty upper mediastinal lymph nodes, nonspecific. Reviewed, dictated and finalized at location M. Impression: No significant abnormalities noted in the neck itself. Small partially imaged, possibly chronic centimeters loculated right pleural ef fusion. Shotty upper mediastinal lymph nodes, nonspecific.
--- NOTE | ~2023-02-22 | XR_ITS ---
EXAMINATION: XR chest 1V portable INDICATION: Shortness of breath TECHNIQUE: Portable AP chest at 1224 hours COMPARISON: 02/13/2023 FINDINGS: A large bore right internal jugular catheter ends with this tip in the proximal right atriu m. The lung volumes are low. There are small pleural effusions. There are minimal airspace opacities of the lung bases. The heart size is normal. IMPRESSION: 1. Bibasilar airspace opacities, consistent with atelectasis versus pneumonia. 2. Small pleural effusions. Reviewed, dictated and finalized at location A.
--- NOTE | 2023-02-22 12:12 | ED.URI ---
HPI - URI/Sore Throat General Chief Complaint: Upper Respiratory Infection Stated Complaint: ear pain, throat pain Time Seen by Provider: 02/22/23 12:11 Source: patient and EMS Mode of arrival: EMS Limitations: no limitations History of Present Illness HPI Narrative: 47 years old male came to the emergency room after having and finished dialysis today with sore throat, runny nose, postnasal discharge and coughing and painful swallowing started 2 days ago. He denies any fever or chills. Related Data Home Medications Medication Instructions Recorded Confirmed amlodipine 10 mg tablet 10 mg PO DAILY 05/21/21 01/12/22 glipizide 10 mg tablet 10 mg PO DAILY 05/21/21 01/12/22 isosorbide mononitrate 60 mg 60 mg PO PRN PRN Hypertension 08/02/21 01/12/22 tablet,extended release 24 hr insulin glargine 100 unit/mL (3 5 unit subcut HS 01/12/22 01/12/22 mL) subcutaneous pen (Lantus Solostar U-100 Insulin) metoprolol ta-hydrochlorothiaz See Rx Instructions .Route .COMPLEX 01/12/22 01/12/22 multivitamin with minerals-folic 1 tablet PO DAILY 01/12/22 01/12/22 acid 0.4 mg tablet Allergies Allergy/AdvReac Type Severity Reaction Status Date / Time gadobenic acid AdvReac Unconscious Verified 02/22/23 12:04 [From contrast - MRI] Review of Systems Review of Systems: All systems reviewed & are unremarkable except as noted in HPI and below PMFSH Past Medical History Medical History Anemia in chronic illness EPO-persistent anemia. Combined congestive systolic and diastolic heart failure Mildly reduced LV systolic function with an EF of 40 to 45% and grade 2 diastolic dysfunction noted on echocardiogram dated 01/22/2021. Diverticulosis End-stage renal disease on hemodialysis Hypertension IgA nephropathy Insulin dependent diabetes mellitus Hemoglobin A1c was 10.9% on 01/23/2021. Complicated by gastric dysmotility, neuropathy, and nephropathy. Ischemic cardiomyopathy Lexiscan stress on 01/26/2021 showed a large area of severe infarct involving the apical lateral and mid to basal anterolateral and inferolateral segments of left ventricle on myocardial perfusion imaging with a left ventricular ejection fracture measuring 45%. 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 History of right below knee amputation Family History Family History Other Unknown family medical history Social History Social History Social History: The patient is now [facility]. Prior to that he was living in [place] with his sister, [id number], nieces, and nephews. Nonsmoker. No alcohol or illicit substance abuse. He designates his sister, Birdie Stroud, as his surrogate decision maker and he wishes to be a full code. Spiritual care concerns: No Exam Narrative: General appearance: Well-developed, well-nourished Skin: Normal color Head: Normocephalic, nontraumatic Eyes: Clear conjunctiva ENT: Oropharyngeal erythema, no discharge Neck: Supple, diffuse tenderness mainly right submandibular area Chest and respiratory: Airway patent, no respiratory distress, no accessory muscle use right upper chest dialysis shunt Heart: Regular rate/rhythm Abdomen: Soft, nontender, no organomegaly, quiet bowel sounds Vascular: Normal peripheral pulses, normal capillary refill. Musculoskeletal: Right below-knee amputation Neurologic: Alert and oriented ?3, GRIZZLYMAN is normal as tested, no gross motor deficit
--- NOTE | 2023-02-22 12:13 | ECG_ITS ---
Measurements Intervals [place] Rate: 75 P: 24 [place]: 165 QRS: -18 QRSD: 108 T: 145 QT: 378 QTc: 425 Interpretive Statements SINUS RHYTHM LEFT VENTRICULAR HYPERTROPHY AND ST-T CHANGE BORDERLINE ST-T WAVE ABNORMALITY- LATERAL LEADS BORDERLINE ECG COMPARED TO ECG 02/13/2023 05:06:23 LEFT VENTRICULAR HYPERTROPHY WITH ST-T CHANGE NOW PRESENT Electronically Signed On 02-22-2023 15:11:02 CDT by Reji Dasilva D.O.
[2023-02-22 13:11] LABS: Influenza A QL RT-PCR Negative (Negative); Influenza B QL RT-PCR Negative (Negative); RSV RNA, RT-PCR Negative (Negative); SARS-CoV-2 RNA PCR Negative (Negative)
[2023-02-22 13:17] LABS: Strep Group A RT-PCR NOT DETECTED (Negative)
[2023-02-22 13:54] LABS: Basophils Percent Auto 0.5 % (0.2-1.2); Eosinophils Absolute Auto 0.4 K/mm3 (0-0.3); Eosinophils Percent Auto 4.8 % (0-4.4); Hematocrit 30.6 % (42.0-52.0); Hemoglobin 9.6 g/dL (14.0-18.0); Immature Granulocyte Absolute 0.07 K/mm3 (0.00-0.031); Immature Granulocyte Percent A 0.9 % (0-0.5); Lymphocytes Absolute Auto 1.31 K/mm3 (0.9-3.2); Lymphocytes Percent Auto 16.6 % (18.3-44.2); Mean Corpuscular HGB Conc 31.4 g/dl (32-36); Mean Corpuscular Hemoglobin 29.8 pg (26-34); Mean Platelet Volume 11.4 fl (7.4-10.4); Monocytes Absolute Auto 0.7 K/mm3 (0.1-0.6); Monocytes Percent Auto 9.2 % (2.6-8.5); Neutrophils Absolute Auto 5.4 K/mm3 (1.3-6.7); Nucleated Red Blood Cells Absolute Auto 0.1 K/mm3 (0.0-0.012); Nucleated Red Blood Cells Perc 0.6 % (0.0-0.2); Platelet Count Result 205 k/mm3 (150-375); Red Blood Count 3.22 M/mm3 (4.6-6.20); Red Cell Distribution Width 13.1 % (11.5-14.5); White Blood Count 7.9 K/mm3 (4.5-10.0)
[2023-02-22 13:58] LABS: Alanine Aminotransferase 24 U/L (6-50); Albumin Level 4.5 g/dL (3.5-5.1); Alkaline Phosphatase 127 U/L (38-126); Anion Gap 13 mmol/L (8-16); Aspartate Amino Transferase 23 U/L (17-59); Bilirubin,Total 0.9 mg/dL (0.2-1.3); Blood Urea Nitrogen 51 mg/dL (9-20); Calcium 7.8 mg/dL (8.4-10.2); Carbon Dioxide 27 mmol/L (22-30); Chloride 97 mmol/L (98-107); Estimated Glomerular Filt Rate 7; Glucose 225 mg/dL (65-110); Potassium 4.1 mmol/L (3.4-5.0); Sodium 137 mmol/L (137-145)
[2023-02-22 14:04] LABS: NT Pro B Type Natriuretic Pept 1240 pg/mL (19.9-100)
--- NOTE | 2023-02-22 15:23 | PC.NURSE ---
notified Keyla at [facility] of patient return. no questions at this time.
== END 2023-02-22 19:00 ==
PROVIDERS: Emergency Provider Emergency Medicine; PCP Internal Medicine
DX: J06.9 Acute upper respiratory infection, unspecified (principal); Z20.822 Contact with and (suspected) exposure to COVID-19; E11.22 Type 2 diabetes mellitus with diabetic chronic kidney disease; N18.6 End stage renal disease; I13.2 Hypertensive heart and chronic kidney disease with heart failure and with stage 5 chronic kidney disease, or end stage renal disease; I50.40 Unspecified combined systolic (congestive) and diastolic (congestive) heart failure; D63.1 Anemia in chronic kidney disease; N25.0 Renal osteodystrophy; E11.21 Type 2 diabetes mellitus with diabetic nephropathy; I25.5 Ischemic cardiomyopathy; E11.51 Type 2 diabetes mellitus with diabetic peripheral angiopathy without gangrene; I73.9 Peripheral vascular disease, unspecified; I34.0 Nonrheumatic mitral (valve) insufficiency; Z99.2 Dependence on renal dialysis; Z89.511 Acquired absence of right leg below knee; Z79.4 Long term (current) use of insulin; Z79.84 Long term (current) use of oral hypoglycemic drugs; R94.31 Abnormal electrocardiogram [ECG] [EKG]; I51.7 Cardiomegaly; R91.8 Other nonspecific abnormal finding of lung field
CPT/HCPCS: 36415; 70491; 71045; 80053; 83880; 85025; 87637; 87651; 93005; 99284; Q9967

== ENCOUNTER 2023-05-17 17:35 | Emergency (ER) | payer MEDICAID, SELFPAY ==
--- NOTE | ~2023-05-17 | XR_ITS ---
EXAMINATION: XR chest 1V portable Exam Date/Time: 05/17/2023 23:47 CDT HISTORY: cough Comparison: 02/22/2023. RESULT: Lines, tubes, and devices: Dialysis catheter, terminating in the right atrium. Lungs and pleura: Low volumes with crowding. Mild diffuse reticular opacities. Fluid in the minor fi ssure. Moderate volume right pleural fluid collection. Streaky bibasilar scar/atelectasis. Cardiomediastinal silhouette: Stable. Other: No acute osseous or upper abdominal finding. IMPRESSION: Mild interstitial edema. Moderate right pleural effusion, increased since the prior study. Reviewed, dictated and finalized at location K. IMPRESSION: Mild interstitial edema. Moderate right pleural effusion, increased since the p rior study.
[2023-05-17 17:49] VITALS: BP 148/82; PULSE 97; RESP 18; TEMP 36.8; O2SAT 97
[2023-05-18 00:33] LABS: Strep Group A RT-PCR NOT DETECTED (Negative)
[2023-05-18 00:45] LABS: Basophils Absolute Auto 0.1 K/mm3 (0.0-0.1); Basophils Percent Auto 0.7 % (0.2-1.2); Hematocrit 33.3 % (42.0-52.0); Hemoglobin 10.6 g/dL (14.0-18.0); Immature Granulocyte Absolute 0.08 K/mm3 (0.00-0.031); Immature Granulocyte Percent A 0.9 % (0-0.5); Lymphocytes Absolute Auto 1.36 K/mm3 (0.9-3.2); Lymphocytes Percent Auto 14.8 % (18.3-44.2); Mean Corpuscular HGB Conc 31.8 g/dl (32-36); Mean Corpuscular Hemoglobin 29.9 pg (26-34); Mean Corpuscular Volume 93.8 fl (80-100); Mean Platelet Volume 11.1 fl (7.4-10.4); Monocytes Absolute Auto 0.8 K/mm3 (0.1-0.6); Monocytes Percent Auto 8.6 % (2.6-8.5); Neutrophils Absolute Auto 5.9 K/mm3 (1.3-6.7); Platelet Count Result 261 k/mm3 (150-375); Red Blood Count 3.55 M/mm3 (4.6-6.20); Red Cell Distribution Width 13.6 % (11.5-14.5); White Blood Count 9.2 K/mm3 (4.5-10.0)
[2023-05-18 00:46] LABS: Influenza A QL RT-PCR Negative (Negative); Influenza B QL RT-PCR Negative (Negative); SARS-CoV-2 RNA PCR Negative (Negative)
[2023-05-18 00:58] LABS: Alanine Aminotransferase 24 U/L (6-50); Albumin Level 4.1 g/dL (3.5-5.1); Alkaline Phosphatase 148 U/L (38-126); Anion Gap 10 mmol/L (8-16); Aspartate Amino Transferase 24 U/L (17-59); Bilirubin,Total 0.4 mg/dL (0.2-1.3); Blood Urea Nitrogen 23 mg/dL (9-20); Calcium 8.7 mg/dL (8.4-10.2); Carbon Dioxide 28 mmol/L (22-30); Chloride 99 mmol/L (98-107); Estimated Glomerular Filt Rate 14; Glucose 211 mg/dL (65-110); Potassium 3.1 mmol/L (3.4-5.0); Sodium 137 mmol/L (137-145)
[2023-05-18 01:17] LABS: INR 1.3; Prothrombin Time 16.3 Seconds (11.1-14.7)
[2023-05-18 01:19] LABS: Partial Thromboplastin Time 39.5 SECONDS (22.3-36.8)
--- NOTE | 2023-05-18 01:40 | ED.GENADULT ---
HPI - General Adult General Chief complaint: Recheck/Abnormal Lab/Rx Stated complaint: abnormal CXR Time Seen by Provider: 05/17/23 23:22 History of Present Illness HPI narrative: Patient 47-year-old gentleman presents emergency department chief complaint of abnormal lab patient had an outpatient chest x-ray performed at the facility where he was that showed a pleural effusion the patient is a dialysis patient goes to dialysis Tuesday the patient completed his normal run of dialysis today patient states he has a little bit of a cough over the sore throat. Related Data Home Medications Medication Instructions Recorded Confirmed amlodipine 10 mg tablet 10 mg PO DAILY 05/21/21 01/12/22 glipizide 10 mg tablet 10 mg PO DAILY 05/21/21 01/12/22 isosorbide mononitrate 60 mg 60 mg PO PRN PRN Hypertension 08/02/21 01/12/22 tablet,extended release 24 hr insulin glargine 100 unit/mL (3 5 unit subcut HS 01/12/22 01/12/22 mL) subcutaneous pen (Lantus Solostar U-100 Insulin) metoprolol ta-hydrochlorothiaz See Rx Instructions .Route .COMPLEX 01/12/22 01/12/22 multivitamin with minerals-folic 1 tablet PO DAILY 01/12/22 01/12/22 acid 0.4 mg tablet Allergies Allergy/AdvReac Type Severity Reaction Status Date / Time gadobenic acid AdvReac Unconscious Verified 05/17/23 17:37 [From contrast - MRI] Review of Systems Review of Systems: A 10 system review of systems was completed on the patient and is negative except for what is stated in the HPI. Nursing and ancillary documentation was reviewed. [facility] Past Medical History Medical History Anemia in chronic illness EPO-persistent anemia. Combined congestive systolic and diastolic heart failure Mildly reduced LV systolic function with an EF of 40 to 45% and grade 2 diastolic dysfunction noted on echocardiogram dated 01/22/2021. Diverticulosis End-stage renal disease on hemodialysis Hypertension IgA nephropathy Insulin dependent diabetes mellitus Hemoglobin A1c was 10.9% on 01/23/2021. Complicated by gastric dysmotility, neuropathy, and nephropathy. Ischemic cardiomyopathy Lexiscan stress on 01/26/2021 showed a large area of severe infarct involving the apical lateral and mid to basal anterolateral and inferolateral segments of left ventricle on myocardial perfusion imaging with a left ventricular ejection fracture measuring 45%. 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 History of right below knee amputation Family History Family History Other Unknown family medical history Social History Social History Social History: The patient is now [facility]. Prior to that he was living in [place] with his sister, [id number], nieces, and nephews. Nonsmoker. No alcohol or illicit substance abuse. He designates his sister, Birdie Stroud, as his surrogate decision maker and he wishes to be a full code. Spiritual care concerns: No Exam Narrative: GENERAL: Well-appearing, well-nourished, and in no acute distress. HEAD: Normocephalic, atraumatic. EYES: PERRLA and EOMI. ENT: Nares clear, no rhinorrhea or epistaxis. Mucous membranes moist. NECK: Supple. CHEST: Clear to auscultation. No respiratory distress. There is a tunneled dialysis access in the right chest HEART: Regular rate and rhythm. No murmur heard. Normal peripheral pulses. ABDOMEN: Soft, nontender, nondistended, normal active bowel sounds. EXTREMITIES: Normal range of motion. No edema. SKIN: Warm, dry, no rash. N
[2023-05-18 01:49] LABS: Procalcitonin 1.5 ng/mL
[2023-05-18 02:48] VITALS: BP 140/66; PULSE 90; RESP 15; O2SAT 98
== END 2023-05-18 04:23 ==
PROVIDERS: Emergency Provider Emergency Medicine; PCP Internal Medicine
DX: J90 Pleural effusion, not elsewhere classified (principal); E11.22 Type 2 diabetes mellitus with diabetic chronic kidney disease; I13.2 Hypertensive heart and chronic kidney disease with heart failure and with stage 5 chronic kidney disease, or end stage renal disease; I50.40 Unspecified combined systolic (congestive) and diastolic (congestive) heart failure; N18.6 End stage renal disease; D63.1 Anemia in chronic kidney disease; Z20.822 Contact with and (suspected) exposure to COVID-19; E11.51 Type 2 diabetes mellitus with diabetic peripheral angiopathy without gangrene; I73.9 Peripheral vascular disease, unspecified; I25.5 Ischemic cardiomyopathy; N25.0 Renal osteodystrophy; I34.0 Nonrheumatic mitral (valve) insufficiency; Z99.2 Dependence on renal dialysis; Z89.511 Acquired absence of right leg below knee; Z79.4 Long term (current) use of insulin; Z79.84 Long term (current) use of oral hypoglycemic drugs
CPT/HCPCS: 36415; 71045; 80053; 84145; 85025; 85610; 85730; 87636; 87651; 99283

== ENCOUNTER 2024-05-13 13:44 | Emergency (ER) | payer OTHER, SELFPAY ==
[2024-05-13 13:52] VITALS: BP 159/62; PULSE 66; RESP 20; TEMP 36.6; O2SAT 99
--- NOTE | 2024-05-13 14:13 | ED.RECABL ---
HPI - Recheck/Abnormal Lab/Rx General Chief Complaint: Recheck/Abnormal Lab/Rx Stated Complaint: high blood sugar Time Seen by Provider: 05/13/24 13:59 Source: patient Mode of arrival: EMS Limitations: no limitations History of Present Illness HPI narrative: Patient is a 48-year-old male who presents to the ER via EMS. He reports his blood sugar was 400 this morning. Patient reports his blood sugar usually runs between 120 and 200. He manages his blood sugar in the long-term insulin and metformin. Patient has no complaints of chest pain, shortness of breath, or other signs of illness. He reports he has a history of high blood pressure, diabetes, and R BKA. Related Data Home Medications Medication Instructions Recorded Confirmed amlodipine 10 mg tablet 10 mg PO DAILY 05/21/21 01/12/22 glipizide 10 mg tablet 10 mg PO DAILY 05/21/21 01/12/22 isosorbide mononitrate 60 mg 60 mg PO PRN PRN Hypertension 08/02/21 01/12/22 tablet,extended release 24 hr insulin glargine 100 unit/mL (3 5 unit subcut HS 01/12/22 01/12/22 mL) subcutaneous pen (Lantus Solostar U-100 Insulin) metoprolol ta-hydrochlorothiaz See Rx Instructions .Route .COMPLEX 01/12/22 01/12/22 multivitamin with minerals-folic 1 tablet PO DAILY 01/12/22 01/12/22 acid 0.4 mg tablet Allergies Allergy/AdvReac Type Severity Reaction Status Date / Time gadobenic acid AdvReac Unconscious Verified 05/13/24 13:57 [From contrast - MRI] Review of Systems Review of Systems: All systems reviewed & are unremarkable except as noted in HPI and below [facility] Past Medical History Medical History Anemia in chronic illness EPO-persistent anemia. Combined congestive systolic and diastolic heart failure Mildly reduced LV systolic function with an EF of 40 to 45% and grade 2 diastolic dysfunction noted on echocardiogram dated 01/22/2021. Diverticulosis End-stage renal disease on hemodialysis Hypertension IgA nephropathy Insulin dependent diabetes mellitus Hemoglobin A1c was 10.9% on 01/23/2021. Complicated by gastric dysmotility, neuropathy, and nephropathy. Ischemic cardiomyopathy Lexiscan stress on 01/26/2021 showed a large area of severe infarct involving the apical lateral and mid to basal anterolateral and inferolateral segments of left ventricle on myocardial perfusion imaging with a left ventricular ejection fracture measuring 45%. 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 History of right below knee amputation Family History Family History Other Unknown family medical history Social History Social History Social History: The patient is now [facility]. Prior to that he was living in [place] with his sister, [id number], nieces, and nephews. Nonsmoker. No alcohol or illicit substance abuse. He designates his sister, Birdie Stroud, as his surrogate decision maker and he wishes to be a full code. Spiritual care concerns: No Exam Narrative: GENERAL: Well appearing, well-nourished, non-toxic, in no acute distress. 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 NECK: Supple. No adenopathy, no masses. RESPIRATORY: Airway patent, respirations nonlabored. Clear to auscultation bilaterally, no rales, rhonchi, wheezing. CARDIOVASCULAR: Regular rate and rhythm without murmurs, rubs, or gallops. Peripheral pulses 2+ and equal bilaterally. ABDOMINAL: Soft, nontender, nondistended, no hepatosplenomegaly. Normoactive BS. MUSCULOSKELETAL: Moves all extremities. Strength/ROM intact
[2024-05-13] MEDS: SODIUM CHLORIDE 0.9% IV 1,000 ML 999 ML IV CONT (14:17)
[2024-05-13 14:24] LABS: Basophils Absolute Auto 0.1 K/mm3 (0.0-0.1); Basophils Percent Auto 0.9 % (0.2-1.2); Eosinophils Percent Auto 12.3 % (0-4.4); Hemoglobin 11.4 g/dL (14.0-18.0); Immature Granulocyte Absolute 0.09 K/mm3 (0.00-0.031); Immature Granulocyte Percent A 1.1 % (0-0.5); Lymphocytes Absolute Auto 1.15 K/mm3 (0.9-3.2); Mean Corpuscular HGB Conc 32.6 g/dl (32-36); Mean Corpuscular Hemoglobin 30.7 pg (26-34); Mean Corpuscular Volume 94.3 fl (80-100); Mean Platelet Volume 12.1 fl (7.4-10.4); Monocytes Absolute Auto 0.7 K/mm3 (0.1-0.6); Monocytes Percent Auto 8.3 % (2.6-8.5); Neutrophils Absolute Auto 5.2 K/mm3 (1.3-6.7); Neutrophils Percent Auto 63.4 % (45.5-73.1); Platelet Count Result 196 k/mm3 (150-375); Red Blood Count 3.71 M/mm3 (4.6-6.20); Red Cell Distribution Width 12.6 % (11.5-14.5); White Blood Count 8.2 K/mm3 (4.5-10.0)
[2024-05-13 14:37] LABS: Beta-Hydroxybutyrate/Acetoacetate 0.09 mmol/L (0.02-0.27)
[2024-05-13 14:39] LABS: Alanine Aminotransferase 17 U/L (6-50); Albumin Level 4.4 g/dL (3.5-5.1); Alkaline Phosphatase 196 U/L (38-126); Anion Gap 15 mmol/L (4-12); Aspartate Amino Transferase 20 U/L (17-59); Bilirubin,Total 0.4 mg/dL (0.2-1.3); Blood Urea Nitrogen 42 mg/dL (9-20); Calcium 8.8 mg/dL (8.4-10.2); Carbon Dioxide 25 mmol/L (22-30); Chloride 91 mmol/L (98-107); Estimated CRCL calculation 11 ml/min; Estimated Glomerular Filt Rate 7; Glucose 399 mg/dL (65-110); Magnesium 2.3 mg/dL (1.6-2.3); Phosphorus 5.2 mg/dL (2.5-4.5); Sodium 131 mmol/L (137-145)
[2024-05-13 14:58] VITALS: RESP 20; O2SAT 98
[2024-05-13 15:00] VITALS: BP 155/66; PULSE 76; RESP 19; O2SAT 97
[2024-05-13 15:21] LABS: Add Urine Microscopic? YES; Appearance Urine Cloudy (Clear); Bacteria Urine 1+ /hpf; Bilirubin Urine Negative (Negative); Blood Urine 2+ (Negative); Color Urine Yellow (Yellow); Glucose Urine UA 2+ mg/dL (Negative); Ketones Urine Negative (Negative); Leukocyte Esterase Ur 2+ LEU/UL (Negative); Nitrate Urine Negative (Negative); Protein Urine 4+ mg/dL (Negative); Specific Grav Ur 1.016 (1.001-1.035); Squamous Epithelial Cell Urine None Seen /hpf (Few); Urobilinogen Urine 0.2 mg/dL (<2.0); WBC Urine >100 /hpf (0-3); pH Urine 6.5 (5.0-9.0)
[2024-05-13 16:17] LABS: Lactic Acid Reflex 1.9 mmol/L (0.7-2.0)
[2024-05-13 16:29] LABS: Troponin I 0.015 ng/mL (0.000-0.034)
[2024-05-13 16:57] VITALS: BP 131/79; PULSE 61; RESP 20; O2SAT 98
[2024-05-13 17:03] LABS: Glucose Point of Care 389 mg/dl (65-105)
[2024-05-13 17:03] LABS: Glucose Point of Care 338 mg/dl (65-105)
[2024-05-13 19:21] VITALS: BP 156/92; PULSE 68; RESP 18; O2SAT 98
[2024-05-13 20:19] VITALS: BP 151/102; PULSE 62; RESP 18; O2SAT 97
== END 2024-05-13 21:13 ==
PROVIDERS: Emergency Provider Registered Nurse; PCP Internal Medicine
DX: N39.0 Urinary tract infection, site not specified (principal); E11.22 Type 2 diabetes mellitus with diabetic chronic kidney disease; I13.2 Hypertensive heart and chronic kidney disease with heart failure and with stage 5 chronic kidney disease, or end stage renal disease; N18.6 End stage renal disease; I50.40 Unspecified combined systolic (congestive) and diastolic (congestive) heart failure; Z99.2 Dependence on renal dialysis; D63.1 Anemia in chronic kidney disease; N25.0 Renal osteodystrophy; N02.B1 Recurrent and persistent immunoglobulin A nephropathy with glomerular lesion; I25.5 Ischemic cardiomyopathy; I34.0 Nonrheumatic mitral (valve) insufficiency; E11.51 Type 2 diabetes mellitus with diabetic peripheral angiopathy without gangrene; Z89.511 Acquired absence of right leg below knee; Z79.84 Long term (current) use of oral hypoglycemic drugs; Z79.4 Long term (current) use of insulin; Z79.82 Long term (current) use of aspirin; Z79.899 Other long term (current) drug therapy
CPT/HCPCS: 36415; 80053; 81001; 82010; 82948; 83605; 83735; 84100; 84484; 85025; 87040; 87077; 87086; 87088; 87186; 96361; 96365; 99284; J0696; J7030

== ENCOUNTER 2025-02-16 11:53 | Inpatient (IN) | payer OTHER, SELFPAY ==
[2025-02-16] VITALS (23 sets, daily range): BP systolic 89–141; BP diastolic 63–86; PULSE 100–117; RESP 16–35; TEMP 36.8–38.4; O2SAT 94–98; BMI 28.7
--- NOTE | ~2025-02-16 | XR_ITS ---
MODIFIED ESOPHAGRAM HISTORY: Potential aspiration pneumonia TECHNIQUE: Modified barium esophagram was performed by speech pathologist under radiologist fluorosco pic guidance. This was recorded on tape. The exam was reviewed on 02/18/2025 14:05 CDT. The DAP for this procedure was 2.292 Gycm2. Fluoroscopy time is 1.8 minutes. FINDINGS: Lateral projection of the cervical spine demonstrates no significant degenerative disease . Penetration is identified with spontaneous independent clearing. No aspiration. IMPRESSION: As above. Reviewed, dictated and finalized at location A. IMPRESSION: As above.
--- NOTE | ~2025-02-16 | XR_ITS ---
EXAMINATION: XR chest 2V Exam Date/Time: 02/16/2025 14:35 CDT HISTORY: Sepsis Comparison: 05/17/2023. RESULT: Lines, tubes, and devices: Dialysis catheter terminating in the right atrium. Lungs and pleura: Low volumes with crowding. Subsegmental peripheral right lower lung airspace disea se. Mild right costophrenic angle blunting Cardiomediastinal silhouette: Stable. Other: No acute osseous or upper abdominal finding. IMPRESSION: Subsegmental right basilar atelectasis/consolidation. Small right pleural effusion Reviewed, dictated and finalized at location K. IMPRESSION: Subsegmental right basilar atelectasis/consolidation. Small right pleural effus ion
--- NOTE | ~2025-02-16 | XR_ITS ---
CHEST RADIOGRAPH CLINICAL HISTORY: hypoxia . COMPARISON: 02/16/2025 TECHNIQUE: Single portable view of the chest. FINDINGS A right internal jugular tunneled central venous hemodialysis catheter is identified with its tip pro jecting over the right atrium. The remainder of the cardiomediastinal silhouette is enlarged, unchanged. Increased interstitial markings are identified bilaterally, findings suggesting mild pulmonary vascul ar congestion. Small right-sided pleural effusion. The remainder of the lungs are clear. IMPRESSION: Mild pulmonary vascular congestion with a small right-sided pleural effusion. No focal infiltrate. Reviewed, dictated and finalized at location A.
--- NOTE | ~2025-02-16 | CT_ITS ---
EXAMINATION: CT chest abdomen pelvis wo con DATE: 02/16/2025 15:45 INDICATION: Sepsis, unknown source, CONTRAST ALLERGY . TECHNIQUE: Computed tomography (CT) of the chest, abdomen, and pelvis was performed with 100 mL Omnip aque-350 intravenous contrast. Automated exposure control and iterative reconstruction technique were employed. The dose-length product was 1736.00 mGy-cm. COMPARISON: X-ray chest, same date; CT abdomen pelvis 08/01/2021 FINDINGS: CHEST: Thoracic aorta: No significant dilation. No dissection. Lung parenchyma and airways: Subsegmental consolidation and rounded atelectasis in the right middle l obe. Bilateral lower lobe tree-in-bud opacities. Low volumes. Thoracic inlet, axillae and chest wall: No thyroid or soft tissue mass. No axillary lymphadenopathy. Right IJ dialysis catheter terminating in the right atrium. Subcutaneous cysts in the left upper ches t. Mediastinum: Enlarged mediastinal lymph nodes. Heart and pericardium: Cardiomegaly. No pericardial effusion. Coronary artery calcifications: Mild. Pleura: No effusion or mass. Thoracic bones: No acute osseous finding in the chest. ABDOMEN/PELVIS: Liver: Normal. Biliary/Gallbladder: Gallbladder is normal. No bile duct dilation. Pancreas: No mass or duct dilation. Spleen: Normal. Adrenals:No mass. Kidneys: No suspicious mass, obstructing stone, or hydronephrosis. GI tract: No small or large bowel dilation. Normal appendix. Mesentery/Peritoneum: No ascites, mass, or free air. Retroperitoneum: No mass Atherosclerotic calcifications of intra-abdominal arterial vessels. Pelvis: Partially distended urinary bladder with moderate wall thickening. Soft Tissues: Small uncomplicated fat-containing umbilical and bilateral inguinal hernias. Abdominopelvic bones: No acute osseous finding in the abdomen/pelvis. Sclerosis of several coccygeal elements with adjacent subcutaneous fat induration likely representing scarring from prior sacral de cubitus ulcer. IMPRESSION: Subsegmental right middle lobe consolidation with bilateral lower lobe tree-in-bud opacities, may rep resent infection, including atypical infection. Aspiration could also be considered in the differenti al. Mediastinal lymphadenopathy. Bladder wall thickening, may be secondary to incomplete distention or chronic outlet compromise. Lucille elate with urinalysis. Chronic appearing coccygeal findings, chronic or recurrent osteomyelitis not excluded. Correlate for clinical evidence of recurrent decubitus ulcer. Reviewed, dictated and finalized at location K. IMPRESSION: Subsegmental right middle lobe consolidation with bilateral lower lobe tree-in- bud opacities, may represent infection, including atypical infection. Aspiratio n could also be considered in the differential. Mediastinal lymphadenopathy. Bladder wall thickening, may be secondary to incomplete distention or chronic o utlet compromise. Correlate with urinalysis. Chronic appearing coccygeal findings, chronic or recurrent osteomyelitis not ex cluded. Correlate for clinical evidence of recurrent decubitus ulcer.
--- NOTE | 2025-02-16 11:58 | ECG_ITS ---
Test Date: 2025-02-16 12:02:12 Measurements Intervals [place] Rate: 106 P: 33 [place]: 162 QRS: -22 QRSD: 103 T: 131 QT: 331 QTc: 439 Interpretive Statements SINUS TACHYCARDIA POSSIBLE LEFT ATRIAL ENLARGEMENT DELAYED PRECORDIAL R/S TRANSITION LEFT VENTRICULAR HYPERTROPHY AND ST-T CHANGE BASELINE ARTIFACT- I, II, III, AVR, AVL, AVF, V1 ABNORMAL ECG No previous ECG available for comparison Electronically Signed On 02-16-2025 12:27:12 CDT by Reji Dasilva D.O.
[2025-02-16 14:06] LABS: Hematocrit 33.4 % (42.0-52.0); Hemoglobin 10.1 g/dL (14.0-18.0); Immature Granulocyte Percent A 1.2 % (0-0.5); Lymphocytes Absolute Auto 0.88 K/mm3 (0.9-3.2); Mean Corpuscular HGB Conc 30.2 g/dl (32-36); Mean Corpuscular Hemoglobin 28.8 pg (26-34); Mean Corpuscular Volume 95.2 fl (80-100); Nucleated Red Blood Cells Absolute Auto 0.020 K/mm3 (0.0-0.012); Nucleated Red Blood Cells Perc 0.1 % (0.0-0.2); Platelet Count Result 233 k/mm3 (150-375); Red Blood Count 3.51 M/mm3 (4.6-6.20); White Blood Count 14.4 K/mm3 (4.5-10.0)
[2025-02-16 14:17] LABS: INR 1.4; Partial Thromboplastin Time 37.0 Seconds (22.3-36.8); Prothrombin Time 16.8 Seconds (11.1-14.7)
[2025-02-16 14:19] LABS: Alanine Aminotransferase 63 U/L (6-50); Albumin Level 4.3 g/dL (3.5-5.1); Alkaline Phosphatase 173 U/L (38-126); Anion Gap 17 mmol/L (4-12); Aspartate Amino Transferase 56 U/L (17-59); Bilirubin,Total 1.0 mg/dL (0.2-1.3); Blood Urea Nitrogen 17 mg/dL (9-20); Calcium 8.8 mg/dL (8.4-10.2); Carbon Dioxide 27 mmol/L (22-30); Chloride 94 mmol/L (98-107); Estimated CRCL calculation 15 ml/min; Estimated Glomerular Filt Rate 10; Glucose 147 mg/dL (65-110); Lipase 60 U/L (23-300); Potassium 3.8 mmol/L (3.4-5.0); Sodium 138 mmol/L (137-145); Total Protein 9.6 g/dL (6.3-8.2)
[2025-02-16] MEDS: ACETAMINOPHEN 500 MG TABLET 1000 MG PO (14:20)
[2025-02-16] MEDS: CEFEPIME 1 GM/NS 50 ML 1 GM/50 ML BAG IVPB (14:21)
[2025-02-16 14:23] LABS: Negative Monotest Control Negative (Negative); Positive Monotest Control Positive (Positive)
[2025-02-16 14:36] LABS: Strep Group A RT-PCR NOT DETECTED (Negative); Troponin I 0.070 ng/mL (0.000-0.034)
[2025-02-16 14:43] LABS: Influenza A QL RT-PCR Negative (Negative); Influenza B QL RT-PCR Negative (Negative); RSV RNA, RT-PCR Negative (Negative); SARS-CoV-2 RNA PCR Negative (Negative)
[2025-02-16 14:47] LABS: CRP > 45.0 mg/dL (<1.0)
--- NOTE | 2025-02-16 16:07 | ED.GENADULT ---
HPI - General Adult General Chief complaint: Fever <Mitch Bui MD - Last Filed: 02/16/25 19:00> Stated complaint: Septic Work-Up from [facility] <Mitch Bui MD - Last Filed: 02/16/25 19:00> Time Seen by Provider: 02/16/25 12:05 <Mitch Bui MD - Last Filed: 02/16/25 19:00> History of Present Illness HPI narrative: This is a 49-year-old male with end-stage renal disease sent in from dialysis with concerns for sepsis. Patient says that he has had a cough with sore throat for the last 1 week. He has felt winded at times but does not have chest pain abdominal pain or urinary symptoms. Patient completed a full course of dialysis this morning. <Mitch Bui MD - Last Filed: 02/16/25 19:00> Related Data Home medications: Home Medications ?Medication ?Instructions ?Recorded ?Confirmed ?Last Taken ?Type amlodipine 10 mg tablet 10 mg PO DAILY 05/21/21 01/12/22 Unknown History glipizide 10 mg tablet 10 mg PO DAILY 05/21/21 01/12/22 Unknown History isosorbide mononitrate 60 mg 60 mg PO PRN PRN Hypertension 08/02/21 01/12/22 Unknown History tablet,extended release 24 hr insulin glargine 100 unit/mL (3 5 unit subcut HS 01/12/22 01/12/22 Unknown History mL) subcutaneous pen (Lantus Solostar U-100 Insulin) metoprolol ta-hydrochlorothiaz See Rx Instructions .Route .COMPLEX 01/12/22 01/12/22 Unknown History multivitamin with minerals-folic 1 tablet PO DAILY 01/12/22 01/12/22 Unknown History acid 0.4 mg tablet <Mitch Bui MD - Last Filed: 02/16/25 19:00> Allergies/adverse reactions: Allergies Allergy/AdvReac Type Severity Reaction Status Date / Time iohexol (From contrast - CT, Allergy Unresponsiv Verified 02/16/25 15:38 X-RAY) e gadobenic acid (From AdvReac Unconscious Verified 02/16/25 15:38 contrast - MRI) <Mitch Bui MD - Last Filed: 02/16/25 19:00> [facility] Past Medical History Medical History: Medical History Anemia in chronic illness EPO-persistent anemia. Combined congestive systolic and diastolic heart failure Mildly reduced LV systolic function with an EF of 40 to 45% and grade 2 diastolic dysfunction noted on echocardiogram dated 01/22/2021. Diverticulosis End-stage renal disease on hemodialysis Hypertension IgA nephropathy Insulin dependent diabetes mellitus Hemoglobin A1c was 10.9% on 01/23/2021. Complicated by gastric dysmotility, neuropathy, and nephropathy. Ischemic cardiomyopathy Lexiscan stress on 01/26/2021 showed a large area of severe infarct involving the apical lateral and mid to basal anterolateral and inferolateral segments of left ventricle on myocardial perfusion imaging with a left ventricular ejection fracture measuring 45%. 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 History of right below knee amputation <Mitch Bui MD - Last Filed: 02/16/25 19:00> Family History Family History: Family History Other Unknown family medical history <Mitch Bui MD - Last Filed: 02/16/25 19:00> Social History Social History: Social History Social History: The patient is now [facility]. Prior to that he was living in [place] with his sister, [id number], nieces, and nephews. Nonsmoker. No alcohol or illicit substance abuse. He designates his sister, Birdie Stroud, as his surrogate decision maker and he wishes to be a full code. Spiritual care concerns: No <Mitch Bui MD - Last Filed: 02/16/25 19:00> Exam Narrative: APPEARANCE: No apparent distress. Head: atraumatic. Posterior oropharynx without erythema or exudates EYES: EOMI, NOSE: Atraumatic NECK: Trachea midline RESPIRATORY: Bibasilar crackles, otherwise clear lungs CARDIOVASCULAR: Tachycardic ABDOMINAL: Soft nontender MUSCULOSKELETAl: Right BKA NEURO: Alert. Moving 4/4 extremities SKIN:: Warm, dry. Normal color PSYCHIATRIC: Normal affect <Mitch Bui MD - Last Filed: 02/16/25 19:00> Course Course Emergency Course: Patient signed out to me pending repeat troponin. Patient completed dialysis today for end-stage renal disease. Has a pneumonia. Antibiotics started. Received 1 L fluids only given the end-stage renal disease. No chest pain but elevated troponin, likely demand versus trop leak. Repeat troponin slightly increasing but essentially flat. IV fluids started judiciously, 100/hr as maintenance. Admitted after discussing with hospitalist WANDA Martins. <Adriana Corrales MD - Last Filed: 02/16/25 19:48> Vital Signs Vital signs: Vital Signs Temperature 101.1 F H 02/16/25 12:21 Pulse Rate 110 H 02/16/25 12:21 Respiratory Rate 35 H 02/16/25 12:21 Blood Pressure 100/64 02/16/25 12:21 Pulse Oximetry 94 02/16/25 12:21 Oxygen Delivery Room Air 02/16/25 12:21 Temperature 99.0 F 02/16/25 16:47 Pulse Rate 106 H 02/16/25 18:09 Respiratory Rate 21 H 02/16/25 18:09 Blood Pressure 108/75 02/16/25 18:09 Pulse Oximetry 98 02/16/25 18:56 Oxygen Delivery Room Air 02/16/25 18:56 Oxygen Flow Rate 3 02/16/25 16:48 <Mitch Bui MD - Last Filed: 02/16/25 19:00> Vital Signs Temperature 101.1 F H 02/16/25 12:21 Pulse Rate 110 H 02/16/25 12:21 Respiratory Rate 35 H 02/16/25 12:21 Blood Pressure 100/64 02/16/25 12:21 Pulse Oximetry 94 02/16/25 12:21 Oxygen Delivery Room Air 02/16/25 12:21 Temperature 99.0 F 02/16/25 16:47 Pulse Rate 106 H 02/16/25 18:09 Respiratory Rate 21 H 02/16/25 18:09 Blood Pressure 108/75 02/16/25 18:09 Pulse Oximetry 98 02/16/25 18:56 Oxygen Delivery Room Air 02/16/25 18:56 Oxygen Flow Rate 3 02/16/25 16:48 <Adriana Corrales MD - Last Filed: 02/16/25 19:48> Medical Decision Making MDM Narrative Medical decision making narrative: -Course: 49-year-old male sent from dialysis due to concerns for sepsis. On arrival he is tachycardic and febrile. Sepsis workup obtained. Patient started on broad-spectrum antibiotics. Only given 1 L of fluids due to his end-stage renal disease/stage II diastolic heart failure and possibility of fluid overload. Will continue to cautiously hydrate. Sepsis workup showed a white count of 14.4. Initial lactic 2.2 which cleared 1.[address] chest abdomen pelvis showed pneumonia in the right lung. Urine with 11-20 white blood cells and +1 leuk esterase. Cultures are pending. Viral swabs negative. Patient was signed out to the oncoming physician pending repeat troponin. -DDX includes but is not limited to: sepsis UTI dehydration pneumonia -Co-morbidities complicating care: End-stage renal disease requiring hemodialysis, grade 2 diastolic heart failure, HTN, DM Independent EKG interpretation: Rhythm [sinus], Rate [106], [place] -[normal], [place] -[normal], QRS [narrow], QTC [normal], T waves -[negative for concerning inversions], ST Segments -ST depressions in V5 V6 1 in aVL. Final interpretations: Normal sinus rhythm with ST depressions V5 V6, 1 in aVL. Likely strain pattern from sepsis. <Mitch Bui MD - Last Filed: 02/16/25 19:00> Vital Signs Vital Signs: Vital Signs Temperature 101.1 F H 02/16/25 12:21 Pulse Rate 110 H 02/16/25 12:21 Respiratory Rate 35 H 02/16/25 12:21 Blood Pressure 100/64 02/16/25 12:21 Pulse Oximetry 94 02/16/25 12:21 Oxygen Delivery Room Air 02/16/25 12:21 Temperature 99.0 F 02/16/25 16:47 Pulse Rate 106 H 02/16/25 18:09 Respiratory Rate 21 H 02/16/25 18:09 Blood Pressure 108/75 02/16/25 18:09 Pulse Oximetry 98 02/16/25 18:56 Oxygen Delivery Room Air 02/16/25 18:56 Oxygen Flow Rate 3 02/16/25 16:48 <Mitch Bui MD - Last Filed: 02/16/25 19:00> Vital Signs Temperature 101.1 F H 02/16/25 12:21 Pulse Rate 110 H 02/16/25 12:21 Respiratory Rate 35 H 02/16/25 12:21 Blood Pressure 100/64 02/16/25 12:21 Pulse Oximetry 94 02/16/25 12:21 Oxygen Delivery Room Air 02/16/25 12:21 Temperature 99.0 F 02/16/25 16:47 Pulse Rate 106 H 02/16/25 18:09 Respiratory Rate 21 H 02/16/25 18:09 Blood Pressure 108/75 02/16/25 18:09 Pulse Oximetry 98 02/16/25 18:56 Oxygen Delivery Room Air 02/16/25 18:56 Oxygen Flow Rate 3 02/16/25 16:48 <Adriana Corrales MD - Last Filed: 02/16/25 19:48> Lab Data Result diagrams: 02/16/25 13:55 02/16/25 13:55 <Mitch Bui MD - Last Filed: 02/16/25 19:00> Labs: Lab Results 02/16/25 02/16/25 02/16/25 Range/Units 13:55 16:41 17:49 WBC 14.4 H (4.5-10.0) K/mm3 RBC 3.51 L (4.6-6.20) M/mm3 Hgb 10.1 L (14.0-18.0) g/dL Hct 33.4 L (42.0-52.0) % MCV 95.2 (80-100) fl MCH 28.8 (26-34) pg MCHC 30.2 L (32-36) g/dl RDW 13.5 (11.5-14.5) % Plt Count 233 (150-375) k/mm3 MPV 11.2 H (7.4-10.4) fl Immature Gran % (Auto) 1.2 H (0-0.5) % Neut % (Auto) 80.2 H (45.5-73.1) % Lymph % (Auto) 6.1 L (18.3-44.2) % [place] % (Auto) 11.0 H (2.6-8.5) % Eos % (Auto) 1.0 (0-4.4) % Baso % (Auto) 0.5 (0.2-1.2) % Lymph # (Auto) 0.88 L (0.9-3.2) K/mm3 [place] # (Auto) 1.6 H (0.1-0.6) K/mm3 Eos # (Auto) 0.2 (0-0.3) K/mm3 Baso # (Auto) 0.1 (0.0-0.1) K/mm3 Abs Immat Gran (auto) 0.17 H (0.00-0.031) K/mm3 Absolute Neuts (auto) 11.6 H (1.3-6.7) K/mm3 Absolute Nucleated RBC 0.020 H (0.0-0.012) K/mm3 Nucleated RBC % 0.1 (0.0-0.2) % PT 16.8 H (11.1-14.7) Seconds INR 1.4 APTT 37.0 H (22.3-36.8) Seconds Sodium 138 (137-145) mmol/L Potassium 3.8 (3.4-5.0) mmol/L Chloride 94 L (98-107) mmol/L Carbon Dioxide 27 (22-30) mmol/L Anion Gap 17 H (4-12) mmol/L BUN 17 D (9-20) mg/dL Creatinine 5.78 H (0.7-1.3) mg/dL Estim Creat Clear Calc 15 ml/min Estimated GFR 10 L (59 - ) Glucose 147 H (65-110) mg/dL Lactic Acid 2.2 H 1.8 (0.7-2.0) mmol/L Calcium 8.8 (8.4-10.2) mg/dL Total Bilirubin 1.0 (0.2-1.3) mg/dL AST 56 (17-59) U/L ALT 63 H (6-50) U/L Alkaline Phosphatase 173 H (38-126) U/L Troponin I 0.070 H* (0.000-0.034) ng/mL C-Reactive Protein > 45.0 H (<1.0) mg/dL Total Protein 9.6 H (6.3-8.2) g/dL Albumin 4.3 (3.5-5.1) g/dL Lipase 60 (23-300) U/L Urine Color Yellow (Yellow) Urine Appearance Clear (Clear) Urine pH 7.0 (5.0-9.0) Ur Specific [place] 1.019 (1.001-1.035) Urine Protein 4+ H (Negative) mg/dL Urine Glucose (UA) 2+ H (Negative) mg/dL Urine Ketones Trace H (Negative) mg/dL Ur Blood (Man) 1+ H (Negative) Urine Nitrate Negative (Negative) Urine Bilirubin Negative (Negative) Urine Urobilinogen 1.0 (<2.0) mg/dL Add Ur Microanalysis Reviewed Leukocyte Esterase Rfl 1+ H (Negative) MAMIE/UL Urine RBC 0-2 (0-2) /hpf Urine WBC 11-20 H (0-3) /hpf Ur Squamous Epith Cells None seen (Few) /hpf Urine Bacteria None seen /hpf Urine Casts 3-5 Nasal MRSA (PCR) Monoscreen Negative (Negative) Influenza A (RT-PCR) Negative (Negative) Influenza B (RT-PCR) Negative (Negative) RSV (RT-PCR) Negative (Negative) SARS-CoV-2 RNA (RT-PCR) Negative (Negative) Group A Strep (PCR) Not detected (Negative) 02/16/25 02/16/25 Range/Units 18:32 18:47 WBC (4.5-10.0) K/mm3 RBC (4.6-6.20) M/mm3 Hgb (14.0-18.0) g/dL Hct (42.0-52.0) % MCV (80-100) fl MCH (26-34) pg MCHC (32-36) g/dl RDW (11.5-14.5) % Plt Count (150-375) k/mm3 MPV (7.4-10.4) fl Immature Gran % (Auto) (0-0.5) % Neut % (Auto) (45.5-73.1) % Lymph % (Auto) (18.3-44.2) % [place] % (Auto) (2.6-8.5) % Eos % (Auto) (0-4.4) % Baso % (Auto) (0.2-1.2) % Lymph # (Auto) (0.9-3.2) K/mm3 [place] # (Auto) (0.1-0.6) K/mm3 Eos # (Auto) (0-0.3) K/mm3 Baso # (Auto) (0.0-0.1) K/mm3 Abs Immat Gran (auto) (0.00-0.031) K/mm3 Absolute Neuts (auto) (1.3-6.7) K/mm3 Absolute Nucleated RBC (0.0-0.012) K/mm3 Nucleated RBC % (0.0-0.2) % PT (11.1-14.7) Seconds INR APTT (22.3-36.8) Seconds Sodium (137-145) mmol/L Potassium (3.4-5.0) mmol/L Chloride (98-107) mmol/L Carbon Dioxide (22-30) mmol/L Anion Gap (4-12) mmol/L BUN (9-20) mg/dL Creatinine (0.7-1.3) mg/dL Estim Creat Clear Calc ml/min Estimated GFR (59 - ) Glucose (65-110) mg/dL Lactic Acid (0.7-2.0) mmol/L Calcium (8.4-10.2) mg/dL Total Bilirubin (0.2-1.3) mg/dL AST (17-59) U/L ALT (6-50) U/L Alkaline Phosphatase (38-126) U/L Troponin I 0.076 H* (0.000-0.034) ng/mL C-Reactive Protein (<1.0) mg/dL Total Protein (6.3-8.2) g/dL Albumin (3.5-5.1) g/dL Lipase (23-300) U/L Urine Color (Yellow) Urine Appearance (Clear) Urine pH (5.0-9.0) Ur Specific [place] (1.001-1.035) Urine Protein (Negative) mg/dL Urine Glucose (UA) (Negative) mg/dL Urine Ketones (Negative) mg/dL Ur Blood (Man) (Negative) Urine Nitrate (Negative) Urine Bilirubin (Negative) Urine Urobilinogen (<2.0) mg/dL Add Ur Microanalysis Leukocyte Esterase Rfl (Negative) MAMIE/UL Urine RBC (0-2) /hpf Urine WBC (0-3) /hpf Ur Squamous Epith Cells (Few) /hpf Urine Bacteria /hpf Urine Casts Nasal MRSA (PCR) Pending Monoscreen (Negative) Influenza A (RT-PCR) (Negative) Influenza B (RT-PCR) (Negative) RSV (RT-PCR) (Negative) SARS-CoV-2 RNA (RT-PCR) (Negative) Group A Strep (PCR) (Negative) <Mitch Bui MD - Last Filed: 02/16/25 19:00> Lab Results 02/16/25 02/16/25 02/16/25 Range/Units 13:55 16:41 17:49 WBC 14.4 H (4.5-10.0) K/mm3 RBC 3.51 L (4.6-6.20) M/mm3 Hgb 10.1 L (14.0-18.0) g/dL Hct 33.4 L (42.0-52.0) % MCV 95.2 (80-100) fl MCH 28.8 (26-34) pg MCHC 30.2 L (32-36) g/dl RDW 13.5 (11.5-14.5) % Plt Count 233 (150-375) k/mm3 MPV 11.2 H (7.4-10.4) fl Immature Gran % (Auto) 1.2 H (0-0.5) % Neut % (Auto) 80.2 H (45.5-73.1) % Lymph % (Auto) 6.1 L (18.3-44.2) % [place] % (Auto) 11.0 H (2.6-8.5) % Eos % (Auto) 1.0 (0-4.4) % Baso % (Auto) 0.5 (0.2-1.2) % Lymph # (Auto) 0.88 L (0.9-3.2) K/mm3 [place] # (Auto) 1.6 H (0.1-0.6) K/mm3 Eos # (Auto) 0.2 (0-0.3) K/mm3 Baso # (Auto) 0.1 (0.0-0.1) K/mm3 Abs Immat Gran (auto) 0.17 H (0.00-0.031) K/mm3 Absolute Neuts (auto) 11.6 H (1.3-6.7) K/mm3 Absolute Nucleated RBC 0.020 H (0.0-0.012) K/mm3 Nucleated RBC % 0.1 (0.0-0.2) % PT 16.8 H (11.1-14.7) Seconds INR 1.4 APTT 37.0 H (22.3-36.8) Seconds Sodium 138 (137-145) mmol/L Potassium 3.8 (3.4-5.0) mmol/L Chloride 94 L (98-107) mmol/L Carbon Dioxide 27 (22-30) mmol/L Anion Gap 17 H (4-12) mmol/L BUN 17 D (9-20) mg/dL Creatinine 5.78 H (0.7-1.3) mg/dL Estim Creat Clear Calc 15 ml/min Estimated GFR 10 L (59 - ) Glucose 147 H (65-110) mg/dL Lactic Acid 2.2 H 1.8 (0.7-2.0) mmol/L Calcium 8.8 (8.4-10.2) mg/dL Total Bilirubin 1.0 (0.2-1.3) mg/dL AST 56 (17-59) U/L ALT 63 H (6-50) U/L Alkaline Phosphatase 173 H (38-126) U/L Troponin I 0.070 H* (0.000-0.034) ng/mL C-Reactive Protein > 45.0 H (<1.0) mg/dL Total Protein 9.6 H (6.3-8.2) g/dL Albumin 4.3 (3.5-5.1) g/dL Lipase 60 (23-300) U/L Urine Color Yellow (Yellow) Urine Appearance Clear (Clear) Urine pH 7.0 (5.0-9.0) Ur Specific [place] 1.019 (1.001-1.035) Urine Protein 4+ H (Negative) mg/dL Urine Glucose (UA) 2+ H (Negative) mg/dL Urine Ketones Trace H (Negative) mg/dL Ur Blood (Man) 1+ H (Negative) Urine Nitrate Negative (Negative) Urine Bilirubin Negative (Negative) Urine Urobilinogen 1.0 (<2.0) mg/dL Add Ur Microanalysis Reviewed Leukocyte Esterase Rfl 1+ H (Negative) MAMIE/UL Urine RBC 0-2 (0-2) /hpf Urine WBC 11-20 H (0-3) /hpf Ur Squamous Epith Cells None seen (Few) /hpf Urine Bacteria None seen /hpf Urine Casts 3-5 Nasal MRSA (PCR) Monoscreen Negative (Negative) Influenza A (RT-PCR) Negative (Negative) Influenza B (RT-PCR) Negative (Negative) RSV (RT-PCR) Negative (Negative) SARS-CoV-2 RNA (RT-PCR) Negative (Negative) Group A Strep (PCR) Not detected (Negative) 02/16/25 02/16/25 Range/Units 18:32 18:47 WBC (4.5-10.0) K/mm3 RBC (4.6-6.20) M/mm3 Hgb (14.0-18.0) g/dL Hct (42.0-52.0) % MCV (80-100) fl MCH (26-34) pg MCHC (32-36) g/dl RDW (11.5-14.5) % Plt Count (150-375) k/mm3 MPV (7.4-10.4) fl Immature Gran % (Auto) (0-0.5) % Neut % (Auto) (45.5-73.1) % Lymph % (Auto) (18.3-44.2) % [place] % (Auto) (2.6-8.5) % Eos % (Auto) (0-4.4) % Baso % (Auto) (0.2-1.2) % Lymph # (Auto) (0.9-3.2) K/mm3 [place] # (Auto) (0.1-0.6) K/mm3 Eos # (Auto) (0-0.3) K/mm3 Baso # (Auto) (0.0-0.1) K/mm3 Abs Immat Gran (auto) (0.00-0.031) K/mm3 Absolute Neuts (auto) (1.3-6.7) K/mm3 Absolute Nucleated RBC (0.0-0.012) K/mm3 Nucleated RBC % (0.0-0.2) % PT (11.1-14.7) Seconds INR APTT (22.3-36.8) Seconds Sodium (137-145) mmol/L Potassium (3.4-5.0) mmol/L Chloride (98-107) mmol/L Carbon Dioxide (22-30) mmol/L Anion Gap (4-12) mmol/L BUN (9-20) mg/dL Creatinine (0.7-1.3) mg/dL Estim Creat Clear Calc ml/min Estimated GFR (59 - ) Glucose (65-110) mg/dL Lactic Acid (0.7-2.0) mmol/L Calcium (8.4-10.2) mg/dL Total Bilirubin (0.2-1.3) mg/dL AST (17-59) U/L ALT (6-50) U/L Alkaline Phosphatase (38-126) U/L Troponin I 0.076 H* (0.000-0.034) ng/mL C-Reactive Protein (<1.0) mg/dL Total Protein (6.3-8.2) g/dL Albumin (3.5-5.1) g/dL Lipase (23-300) U/L Urine Color (Yellow) Urine Appearance (Clear) Urine pH (5.0-9.0) Ur Specific [place] (1.001-1.035) Urine Protein (Negative) mg/dL Urine Glucose (UA) (Negative) mg/dL Urine Ketones (Negative) mg/dL Ur Blood (Man) (Negative) Urine Nitrate (Negative) Urine Bilirubin (Negative) Urine Urobilinogen (<2.0) mg/dL Add Ur Microanalysis Leukocyte Esterase Rfl (Negative) MAMIE/UL Urine RBC (0-2) /hpf Urine WBC (0-3) /hpf Ur Squamous Epith Cells (Few) /hpf Urine Bacteria /hpf Urine Casts Nasal MRSA (PCR) Pending Monoscreen (Negative) Influenza A (RT-PCR) (Negative) Influenza B (RT-PCR) (Negative) RSV (RT-PCR) (Negative) SARS-CoV-2 RNA (RT-PCR) (Negative) Group A Strep (PCR) (Negative) <Adriana Corrales MD - Last Filed: 02/16/25 19:48> Discharge Plan Discharge Clinical Impression: PNA (pneumonia), End-stage renal disease (ESRD), Sepsis, Elevated troponin, CRP elevated, Pleural effusion on right, Leukocytosis, Normocytic anemia <Mitch Bui MD - Last Filed: 02/16/25 19:00> Patient Disposition: Still a Patient <Mitch Bui MD - Last Filed: 02/16/25 19:00> Condition: Stable <Mitch Bui MD - Last Filed: 02/16/25 19:00> Instructions: Antibiotic Form <Mitch Bui MD - Last Filed: 02/16/25 19:00> Patient Language: Albanian <Mitch Bui MD - Last Filed: 02/16/25 19:00> Prescriptions: No Action glipizide 10 mg tablet 10 mg PO DAILY amlodipine 10 mg tablet 10 mg PO DAILY furosemide 40 mg Tablet 40 mg PO MOWEFR Qty: 30 0RF atorvastatin 40 mg Tablet 40 mg PO DAILY Qty: 30 0RF lisinopril 20 mg Tablet 20 mg PO QAM Qty: 30 0RF aspirin [Children's Aspirin] 81 mg Tablet,Chewable 81 mg PO DAILY@0800 Qty: 30 0RF calcium carbonate 500 mg calcium (1,250 mg) Tablet,Chewable 200 mg PO Q6H PRN (Reason: Indigestion, nausea) Qty: 30 0RF multivit with min-folic acid 0.4 mg Tablet 1 tablet PO DAILY metoprolol ta-hydrochlorothiaz See Rx Instructions .ROUTE .COMPLEX Rx Instructions: takes 50-25 mg 1 tab PO BID Lantus Solostar U-100 Insulin 100 unit/mL (3 mL) Insulin Pen 5 unit SUBCUT HS cyclobenzaprine 5 mg tablet 5 mg PO TID PRN (Reason: muscle spasm) Qty: 14 0RF dexamethasone 0.5 mg/5 mL elixir 0.5 mg PO TID Qty: 237 0RF Rx Instructions: Please swish and spit 3-4 times daily. Leave the medication in the mouth for 5 minutes prior to spitting out. Do not rinse afterwards and avoid eating or drinking for 30 minutes. ipratropium bromide 42 mcg (0.06 %) spray,non-aerosol 2 spray intranasal QID 7 Days Qty: 15 0RF Rx Instructions: administer into each nostril bumetanide 1 mg Tablet 1 mg PO BID Qty: 60 0RF isosorbide mononitrate 60 mg tablet extended release 24 hr 60 mg PO PRN PRN (Reason: Hypertension) amoxicillin-pot clavulanate 875-125 mg tablet 1 tablet PO Q12H Qty: 10 0RF azithromycin 250 mg tablet See Rx Instructions .ROUTE .COMPLEX Qty: 6 0RF Rx Instructions: For 250 mg dose pack: take 500 mg today (day 1), then 250 mg for 4 days (days 2-5) ciprofloxacin HCl [Cipro] 250 mg tablet 250 mg PO Q12H Qty: 14 0RF ciprofloxacin HCl [Cipro] 250 mg tablet 250 mg PO Q12H Qty: 14 0RF <Mitch Bui MD - Last Filed: 02/16/25 19:00> Follow-up/Referrals: Kenneth,Trang Colbert MD [Primary Care Provider] - <Mitch Bui MD - Last Filed: 02/16/25 19:00> Time of Disposition: 19:43 <Mitch Bui MD - Last Filed: 02/16/25 19:00> 19:43 <Adraina Corrales MD - Last Filed: 02/16/25 19:48>
--- NOTE | 2025-02-16 17:04 | PC.NURSE ---
Pt attempted to provide urine sample and was unsuccessful
[2025-02-16] MEDS: DOXYCYCLINE 100 MG/NS 100 ML 100 MG/100 ML BAG IVPB (17:14)
[2025-02-16] MEDS: LACTATED RINGERS 1,000 ML 999 ML IV CONT (17:15)
[2025-02-16 18:06] LABS: Add Urine Microscopic? YES; Appearance Urine Clear (Clear); Glucose Urine UA 2+ mg/dL (Negative); Leukocyte Esterase Ur 1+ LEU/UL (Negative); Need Manual Microscopic Reviewed; Nitrate Urine Negative (Negative); Specific Grav Ur 1.019 (1.001-1.035)
--- NOTE | 2025-02-16 18:08 | ECG_ITS ---
Test Date: 2025-02-16 18:37:06 Measurements Intervals [place] Rate: 104 P: 0 [place]: 0 QRS: -23 QRSD: 97 T: 120 QT: 339 QTc: 447 Interpretive Statements SINUS TACHYCARDIA LEFT VENTRICULAR HYPERTROPHY AND ST-T CHANGE BORDERLINE ST-T WAVE ABNORMALITY- LATERAL LEADS BORDERLINE ECG Compared to ECG 02/16/2025 12:02:12 NO SIGNIFICANT CHANGE Electronically Signed On 02-16-2025 20:06:38 CDT by Reji Dasilva D.O.
[2025-02-16] MEDS: VANCOMYCIN 1,750 MG/NS 500 ML 1,750 MG/500 ML BAG 250 MG IVPB (18:56)
[2025-02-16 19:37] LABS: Troponin I 0.076 ng/mL (0.000-0.034)
--- NOTE | 2025-02-16 19:40 | PM.IMHP ---
H&P: HPI History of Present Illness Date/Time: 02/16/25 20:45 Chief Complaint: Fever and cough. Narrative: This is a 49-year-old male with end-stage renal disease on hemodialysis, type 2 diabetes mellitus, anemia of chronic disease, peripheral vascular disease, combined systolic and diastolic congestive heart failure, pulmonary hypertension, and hypertension who presented to the emergency department via EMS from dialysis for evaluation of fever and cough. He has not been feeling well for a week with a sore throat and cough and today during dialysis he started to feel worse. His was able to complete his treatment and he was referred to the emergency department after he was found to have a fever. He resides at a local nursing facility and tells me that her ?at least 20 people have been going around coughing.? His cough is productive but he is blind in is unable to describe what is coming up. His appetite is diminished. He denies headache, chest pain, pleuritic pain, abdominal pain, vomiting, and diarrhea. In the ED: Vital signs on arrival include a temperature of 101.1?, blood pressure 100/64, pulse 110, respiratory rate 35, SpO2 94%. Labs were significant for WBC count of 14.4, hemoglobin 10.1, anion gap 17, BUN 17, creatinine 5.78, lactic acid 2.2 8, troponin 0.070, CRP greater than 45, ALT 63. He tested negative for influenza, RSV, COVID, strep, and mono. CT of the chest, abdomen, and pelvis showed a right middle lobe consolidation, mediastinal lymphadenopathy, bladder wall thickening, and chronic appearing coccygeal findings. He was given a 1 L bolus of lactated Ringer's and was started on cefepime, doxycycline, and vancomycin for pneumonia he is being admitted in this setting for further treatment. Review of Systems Review of Systems: 12 systems were reviewed and are negative except for as per HPI. 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 Ischemic cardiomyopathy Lexiscan stress on 01/26/2021 showed a large area of severe infarct involving the apical lateral and mid to basal anterolateral and inferolateral segments of left ventricle on myocardial perfusion imaging with a left ventricular ejection fracture measuring 45%. Anemia in chronic illness EPO-persistent anemia. Insulin dependent diabetes mellitus Hemoglobin A1c was 10.9% on 01/23/2021. Complicated by gastric dysmotility, neuropathy, and nephropathy. Hypertension Peripheral vascular disease Surgical History Surgical History History of colonoscopy with polypectomy (01/27/21) 2 benign polyps removed. History of right below knee amputation Family History Family History Other Unknown family medical history Social History Social History Social History: The patient is now [facility]. Prior to that he was living in [place] with his sister, [id number], nieces, and nephews. Nonsmoker. No alcohol or illicit substance abuse. He designates his sister, Birdie Stroud, as his surrogate decision maker and he wishes to be a full code. Smoking status: Never smoker Alcohol intake: never Substance use: never Substance use type: does not use Spiritual care concerns: No Meds Home Medications and Allergies Home Medications ?Medication ?Instructions ?Recorded ?Confirmed ?Type bumetanide 1 mg tablet 1 mg PO BID #60 tabs 02/25/21 01/12/22 Rx amlodipine 10 mg tablet 10 mg PO DAILY 05/21/21 01/12/22 History glipizide 10 mg tablet 10 mg PO DAILY 05/21/21 01/12/22 History aspirin 81 mg chewable tablet 81 mg PO DAILY@0800 #30 tabs 06/30/21 01/12/22 Rx (Children's Aspirin) atorvastatin 40 mg tablet 40 mg PO DAILY #30 tabs 06/30/21 01/12/22 Rx calcium carbonate 200 mg (0.4 x 500 mg calcium 06/30/21 01/12/22 Rx (1,250 mg)) PO Q6H PRN Indigestion, nausea #30 tabs furosemide 40 mg tablet 40 mg PO MOWEFR #30 tabs 06/30/21 01/12/22 Rx lisinopril 20 mg tablet 20 mg PO QAM #30 tabs 06/30/21 01/12/22 Rx isosorbide mononitrate 60 mg 60 mg PO PRN PRN Hypertension 08/02/21 01/12/22 History tablet,extended release 24 hr insulin glargine 100 unit/mL (3 5 unit subcut HS 01/12/22 01/12/22 History mL) subcutaneous pen (Lantus Solostar U-100 Insulin) metoprolol ta-hydrochlorothiaz See Rx Instructions .Route .COMPLEX 01/12/22 01/12/22 History multivitamin with minerals-folic 1 tablet PO DAILY 01/12/22 01/12/22 History acid 0.4 mg tablet amoxicillin 875 mg-potassium 1 tablet PO Q12H #10 tabs 02/13/23 Rx clavulanate 125 mg tablet azithromycin 250 mg tablet See Rx Instructions PO .COMPLEX #6 02/13/23 Rx tabs cyclobenzaprine 5 mg tablet 5 mg PO TID PRN muscle spasm #14 02/17/23 Rx tabs dexamethasone 0.5 mg/5 mL oral 0.5 mg (5 mL) PO TID #237 mL 02/17/23 Rx elixir ipratropium bromide 42 mcg (0.06 2 spray intranasal QID 7 days #15 02/22/23 Rx %) nasal spray mL ciprofloxacin HCl 250 mg tablet 250 mg PO Q12H #14 tabs 05/13/24 Rx (Cipro) ciprofloxacin HCl 250 mg tablet 250 mg PO Q12H #14 tabs 05/13/24 Rx (Cipro) Allergies Allergy/AdvReac Type Severity Reaction Status Date / Time iohexol (From contrast - CT, Allergy Unresponsiv Verified 02/16/25 15:38 X-RAY) e gadobenic acid (From AdvReac Unconscious Verified 02/16/25 15:38 contrast - MRI) Vital Signs Vital Signs - 24 hr 02/16/25 12:21 02/16/25 12:23 02/16/25 12:47 Temperature 101.1 F H Pulse Rate 110 H 109 H 111 H Respiratory Rate 35 H 24 H 27 H Blood Pressure 100/64 100/64 89/63 L Pulse Oximetry 94 96 98 Oxygen Delivery Room Air Oxygen Flow Rate 02/16/25 13:01 02/16/25 13:16 02/16/25 13:32 Temperature Pulse Rate 107 H 112 H 114 H Respiratory Rate 20 23 H 19 Blood Pressure 109/86 134/70 122/78 Pulse Oximetry 96 Oxygen Delivery Oxygen Flow Rate 02/16/25 13:46 02/16/25 14:01 02/16/25 14:50 Temperature 99.0 F Pulse Rate 117 H 114 H Respiratory Rate 27 H 30 H Blood Pressure 110/84 122/71 Pulse Oximetry 98 98 Oxygen Delivery Oxygen Flow Rate 02/16/25 16:30 02/16/25 16:33 02/16/25 16:47 Temperature 99.0 F Pulse Rate 107 H 106 H Respiratory Rate 24 H 25 H 16 Blood Pressure 98/71 L 105/65 Pulse Oximetry 94 95 97 Oxygen Delivery Oxygen Flow Rate 3 02/16/25 16:48 02/16/25 18:09 02/16/25 18:56 Temperature Pulse Rate 106 H Respiratory Rate 21 H Blood Pressure 108/75 Pulse Oximetry 97 98 98 Oxygen Delivery Nasal Cannula Room Air Oxygen Flow Rate 3 Exam Narrative: General: Moderately ill-appearing male sitting up in bed in no acute distress. Weight: 93.5 kg. BMI: 28.7. HEENT: He keeps his eyes closed as he is blind in both eyes. Sclerae anicteric. Tacky mucous membranes. Neck: Supple. No JVD. Respiratory: Respirations are nonlabored and he is in no respiratory distress. Crackles/rales heard at the right base. Cardiovascular: Regular rate and rhythm with S1-S2. Systolic murmur at the lower sternal border. Chest: Dialysis catheter in the right anterior chest. Gastrointestinal: Abdomen is soft, nontender, and nondistended with positive bowel sounds. Skin: Warm and slightly diaphoretic. Extremities: No cyanosis or clubbing. Trace chelsey ankle edema on the left. Hyperpigmentation of the left lower leg from chronic stasis. Status post right aniaw-zgu-bulk amputation. There is a small area of breakdown on the right stump. Neurological: Alert. No facial asymmetry. Speech is clear. Noted to move upper and lower extremities without obvious limitation. Psychiatric: Pleasant and cooperative with appropriate mood and affect appear H&P: Results Labs Labs: Short CBC 02/16/25 Range/Units 13:55 WBC 14.4 H (4.5-10.0) K/mm3 Hgb 10.1 L (14.0-18.0) g/dL Hct 33.4 L (42.0-52.0) % Plt Count 233 (150-375) k/mm3 BMP 02/16/25 13:55 Sodium 138 Potassium 3.8 Chloride 94 L Carbon Dioxide 27 BUN 17 D Creatinine 5.78 H Glucose 147 H Calcium 8.8 Cardiac Enzymes 02/16/25 02/16/25 Range/Units 13:55 18:47 Troponin I 0.070 H* 0.076 H* (0.000-0.034) ng/mL Liver Function 02/16/25 Range/Units 13:55 Total Bilirubin 1.0 (0.2-1.3) mg/dL AST 56 (17-59) U/L ALT 63 H (6-50) U/L Alkaline Phosphatase 173 H (38-126) U/L Albumin 4.3 (3.5-5.1) g/dL Urine 02/16/25 Range/Units 17:49 Urine Color Yellow (Yellow) Urine Appearance Clear (Clear) Urine pH 7.0 (5.0-9.0) Ur Specific [place] 1.019 (1.001-1.035) Urine Protein 4+ H (Negative) mg/dL Urine Glucose (UA) 2+ H (Negative) mg/dL Imaging Chest X-Ray 02/16/25 14:51 IMPRESSION: Subsegmental right basilar atelectasis/consolidation. Small right pleural effusion Chest/Abdomen/Pelvis CT 02/16/25 16:03 IMPRESSION: Subsegmental right middle lobe consolidation with bilateral lower lobe tree-in-bud opacities, may represent infection, including atypical infection. Aspiration could also be considered in the differential. Mediastinal lymphadenopathy. Bladder wall thickening, may be secondary to incomplete distention or chronic outlet compromise. Correlate with urinalysis. Chronic appearing coccygeal findings, chronic or recurrent osteomyelitis not excluded. Correlate for clinical evidence of recurrent decubitus ulcer. Assessment and Plan Assessment and plan (1) Sepsis: Code(s): A41.9 - Sepsis, unspecified organism Status: Acute (2) Pneumonia: Code(s): J18.9 - Pneumonia, unspecified organism Status: Acute (3) End-stage renal disease on hemodialysis: Code(s): N18.6 - End stage renal disease; Z99.2 - Dependence on renal dialysis Status: Acute (4) Combined systolic and diastolic congestive heart failure: Code(s): I50.40 - Unspecified combined systolic (congestive) and diastolic (congestive) heart failure Status: Chronic (5) Anemia in chronic illness: Code(s): D63.8 - Anemia in other chronic diseases classified elsewhere Status: Acute (6) Insulin dependent diabetes mellitus: Status: Chronic Plan The patient presented to the emergency department from following his dialysis treatment for evaluation of cough and fever after feeling poorly for nearly a week as detailed in HPI. Labs, imaging, EKG, and all reports were personally reviewed. He meets criteria for sepsis with relative hypotension, fever, tachycardia, tachypnea, leukocytosis, and elevated lactic acid level in the setting of infection. Lactic acid and blood pressures have normalized with IV fluid. Blood cultures have been obtained and are pending. Source of infection appears to be right-sided pneumonia. He was started on cefepime, doxycycline, and vancomycin in the emergency department and we will continue with those now pending MRSA nasal screening and sputum culture. Check Legionella and pneumococcal antigens as well as mycoplasma IgM. Start Mucinex and and Cornet help mobilize secretions. Avoid over-hydration given history of end-stage renal disease and congestive heart failure. Nephrology will need to be consulted if he is anticipating on being in the hospital on Tuesday. His hemoglobin is stable on review of previous labs. Random glucose was 147 and due to poor appetite and not much intake this evening, we will hold his long-acting insulin for now and initiate sliding scale insulin, Accu-Cheks, and hypoglycemic protocol. The rest of his home medications will be reviewed and resumed as appropriate. Findings and treatment plan were discussed with the patient. Questions were solicited and answered to satisfaction. The patient's medical management will be taken over by the hospitalist team in a.m. Quality VTE Prophylaxis VTE prophylaxis: mechanical ordered and pharmacologic ordered The patient has been admitted under observation status. Hospitalist MIPS Advance Care Plan I have confirmed that the patient's Advanced Care Plan is present, code status is documented, or surrogate decision maker is listed in patient medical record.: Yes Medication Reconciliation I have utilized all available resources to obtain, update and review the patients current medications (includes all prescriptions, OTC, herbals, cannabis, and nutritional supplements).: Yes
[2025-02-16 19:49] LABS: MRSA (PCR) NOT DETECTED (NOT DETECTE)
--- NOTE | 2025-02-16 20:19 | PC.NURSE ---
This RN walked in to pt room and noticed the Vancomycin was not started. This RN started Vancomycin at 2014.
--- NOTE | 2025-02-16 20:28 | PC.NURSE ---
This RN attempted to call pt niece per pt request. This RN was unable to get a hold of niece. Voicemail was left.
[2025-02-16] MEDS: ACETAMINOPHEN 325 MG TABLET 650 MG PO ×2 (20:31→23:55)
--- NOTE | 2025-02-16 20:42 | ECG_ITS ---
Test Date: 2025-02-16 20:49:01 Measurements Intervals Kinder Rate: 105 P: 48 FL: 164 QRS: -15 QRSD: 101 T: 128 QT: 334 QTc: 442 Interpretive Statements SINUS TACHYCARDIA POSSIBLE LEFT ATRIAL ENLARGEMENT LEFT VENTRICULAR HYPERTROPHY AND ST-T CHANGE BORDERLINE ECG Compared to ECG 02/16/2025 18:37:06 No significant changes Electronically Signed On 02-17-2025 07:55:14 CDT by Reji Dasilva D.O.
--- NOTE | 2025-02-16 22:32 | ADMGEN ---
This patient, Gustavo Chacko, was admitted to IMU Room 231-01. Patient/family oriented to hospital policies and general routines including ID bracelet, bed and alarms, visiting hours, pain management, procedures, bathroom and other care routines, personal items, smoking policy, room service/diet, and visiting hours. Information on how to activate the Rapid Response Team has been discussed. Patient/Family are encouraged to report perceived risks to care and to ask questions if they do not understand what they are told or what they should do.
[2025-02-17] VITALS (21 sets, daily range): BP systolic 106–141; BP diastolic 55–81; PULSE 77–107; RESP 16–32; TEMP 36.3–38.4; O2SAT 84–100
[2025-02-17 01:16] LABS: MRSA (PCR) NOT DETECTED (NOT DETECTE)
[2025-02-17 05:17] LABS: Hematocrit 31.6 % (42.0-52.0); Hemoglobin 9.7 g/dL (14.0-18.0); Mean Corpuscular HGB Conc 30.7 g/dl (32-36); Mean Corpuscular Hemoglobin 29.5 pg (26-34); Mean Corpuscular Volume 96.0 fl (80-100); Platelet Count Result 215 k/mm3 (150-375); Red Blood Count 3.29 M/mm3 (4.6-6.20); White Blood Count 13.0 K/mm3 (4.5-10.0)
[2025-02-17] MEDS: DOXYCYCLINE 100 MG/NS 100 ML 100 MG/100 ML BAG IVPB ×2 (05:21→17:17)
[2025-02-17 05:33] LABS: Anion Gap 14 mmol/L (4-12); Blood Urea Nitrogen 29 mg/dL (9-20); Calcium 8.6 mg/dL (8.4-10.2); Carbon Dioxide 27 mmol/L (22-30); Chloride 94 mmol/L (98-107); Estimated CRCL calculation 11 ml/min; Estimated Glomerular Filt Rate 7; Glucose 156 mg/dL (65-110); Magnesium 2.0 mg/dL (1.6-2.3); Potassium 3.9 mmol/L (3.4-5.0); Sodium 135 mmol/L (137-145)
[2025-02-17 05:34] LABS: Hemoglobin A1C 8.0 % (<5.7)
[2025-02-17] MEDS: guaiFENesin 12 HR 600 MG TABCR 1200 MG PO ×2 (09:20→20:04)
--- NOTE | 2025-02-17 11:31 | PM.IMPN ---
Progress Note: A&P Assessment and Plan (1) Sepsis: Code(s): A41.9 - Sepsis, unspecified organism Status: Acute Assessment and Plan: Clinically improving. Will continue current treatment monitor culture. (2) Pneumonia: Code(s): J18.9 - Pneumonia, unspecified organism Status: Acute Assessment and Plan: Clinically improving. Will continue current treatment monitor closely. (3) End-stage renal disease on hemodialysis: Code(s): N18.6 - End stage renal disease; Z99.2 - Dependence on renal dialysis Status: Acute Assessment and Plan: Continue dialysis. (4) Combined systolic and diastolic congestive heart failure: Code(s): I50.40 - Unspecified combined systolic (congestive) and diastolic (congestive) heart failure Status: Chronic Assessment and Plan: Stable on current medication, will continue current treatment. (5) Anemia in chronic illness: Code(s): D63.8 - Anemia in other chronic diseases classified elsewhere Status: Acute Assessment and Plan: Stable on current medication, will continue current treatment. (6) Insulin dependent diabetes mellitus: Status: Chronic Assessment and Plan: Stable on current medication, will continue current treatment. Plan The patient presented to the emergency department from following his dialysis treatment for evaluation of cough and fever after feeling poorly for nearly a week as detailed in HPI. Labs, imaging, EKG, and all reports were personally reviewed. He meets criteria for sepsis with relative hypotension, fever, tachycardia, tachypnea, leukocytosis, and elevated lactic acid level in the setting of infection. Lactic acid and blood pressures have normalized with IV fluid. Blood cultures have been obtained and are pending. Source of infection appears to be right-sided pneumonia. He was started on cefepime, doxycycline, and vancomycin in the emergency department and we will continue with those now pending MRSA nasal screening and sputum culture. Check Legionella and pneumococcal antigens as well as mycoplasma IgM. Start Mucinex and and Cornet help mobilize secretions. Avoid over-hydration given history of end-stage renal disease and congestive heart failure. Nephrology will need to be consulted if he is anticipating on being in the hospital on Tuesday. His hemoglobin is stable on review of previous labs. Random glucose was 147 and due to poor appetite and not much intake this evening, we will hold his long-acting insulin for now and initiate sliding scale insulin, Accu-Cheks, and hypoglycemic protocol. The rest of his home medications will be reviewed and resumed as appropriate. Findings and treatment plan were discussed with the patient. Questions were solicited and answered to satisfaction. The patient's medical management will be taken over by the hospitalist team in a.m. Subjective Date/time seen: 02/17/25 11:31 Interval history: Sepsis, hypertension, renal failure, dyslipidemia, diabetes Patient was seen during the morning rounds today. Patient is feeling slightly better. Decreased shortness of breath. No chest pain. No abdominal pain. No nausea or vomiting. Review of Systems Review of Systems: 12 systems were reviewed and are negative except for as per HPI. Exam Narrative: General: Moderately ill-appearing male sitting up in bed in no acute distress. Weight: 93.5 kg. BMI: 28.7. HEENT: He keeps his eyes closed as he is blind in both eyes. Sclerae anicteric. Tacky mucous membranes. Neck: Supple. No JVD. Respiratory: Respirations are nonlabored and he is in no respiratory distress. Crackles/rales heard at the right base. Cardiovascular: Regular rate and rhythm with S1-S2. Systolic murmur at the lower sternal border. Chest: Dialysis catheter in the right anterior chest. Gastrointestinal: Abdomen is soft, nontender, and nondistended with positive bowel sounds. Skin: Warm and slightly diaphoretic. Extremities: No cyanosis or clubbing. Trace chelsey ankle edema on the left. Hyperpigmentation of the left lower leg from chronic stasis. Status post right [id number] amputation. There is a small area of breakdown on the right stump. Neurological: Alert. No facial asymmetry. Speech is clear. Noted to move upper and lower extremities without obvious limitation. Psychiatric: Pleasant and cooperative with appropriate mood and affect appear Objective Data Vital Signs Vital Signs: Vital Signs - 24 hr 02/16/25 12:21 02/16/25 12:23 02/16/25 12:47 Temperature 38.4 C H Pulse Rate 110 H 109 H 111 H Respiratory Rate 35 H 24 H 27 H Blood Pressure 100/64 100/64 89/63 L Pulse Oximetry 94 96 98 Oxygen Delivery Room Air Oxygen Flow Rate Fraction of Inspired Oxygen 02/16/25 13:01 02/16/25 13:16 02/16/25 13:32 Temperature Pulse Rate 107 H 112 H 114 H Respiratory Rate 20 23 H 19 Blood Pressure 109/86 134/70 122/78 Pulse Oximetry 96 Oxygen Delivery Oxygen Flow Rate Fraction of Inspired Oxygen 02/16/25 13:46 02/16/25 14:01 02/16/25 14:50 Temperature 37.2 C Pulse Rate 117 H 114 H Respiratory Rate 27 H 30 H Blood Pressure 110/84 122/71 Pulse Oximetry 98 98 Oxygen Delivery Oxygen Flow Rate Fraction of Inspired Oxygen 02/16/25 16:30 02/16/25 16:33 02/16/25 16:47 Temperature 37.2 C Pulse Rate 107 H 106 H Respiratory Rate 24 H 25 H 16 Blood Pressure 98/71 L 105/65 Pulse Oximetry 94 95 97 Oxygen Delivery Oxygen Flow Rate 3 Fraction of Inspired Oxygen 02/16/25 16:48 02/16/25 18:09 02/16/25 18:56 Temperature Pulse Rate 106 H Respiratory Rate 21 H Blood Pressure 108/75 Pulse Oximetry 97 98 98 Oxygen Delivery Nasal Cannula Room Air Oxygen Flow Rate 3 Fraction of Inspired Oxygen 02/16/25 19:45 02/16/25 20:26 02/16/25 21:15 Temperature 37.9 C H 37.1 C Pulse Rate 100 Respiratory Rate 16 Blood Pressure 137/76 Pulse Oximetry Oxygen Delivery Oxygen Flow Rate Fraction of Inspired Oxygen 02/16/25 21:34 02/16/25 21:51 02/16/25 22:30 Temperature 37.1 C 36.8 C Pulse Rate 109 H 106 H Respiratory Rate 18 Blood Pressure 141/72 H Pulse Oximetry 94 Oxygen Delivery Oxygen Flow Rate Fraction of Inspired Oxygen 02/16/25 22:30 02/16/25 23:26 02/16/25 23:55 Temperature 38.4 C H Pulse Rate 106 H 101 H Respiratory Rate 18 18 Blood Pressure Pulse Oximetry 94 94 Oxygen Delivery Room Air Room Air Oxygen Flow Rate Fraction of Inspired Oxygen 02/17/25 00:00 02/17/25 00:50 02/17/25 02:00 Temperature 38.4 C H 37.7 C H Pulse Rate 104 H 102 H Respiratory Rate 22 H Blood Pressure 106/55 L Pulse Oximetry 90 Oxygen Delivery Oxygen Flow Rate Fraction of Inspired Oxygen 02/17/25 04:00 02/17/25 04:00 02/17/25 04:00 Temperature 37.4 C Pulse Rate 97 97 101 H Respiratory Rate 22 H 20 Blood Pressure 132/81 Pulse Oximetry 90 97 Oxygen Delivery Room Air Oxygen Flow Rate Fraction of Inspired Oxygen 02/17/25 05:47 02/17/25 07:56 02/17/25 07:57 Temperature Pulse Rate 90 Respiratory Rate Blood Pressure Pulse Oximetry 84 L 96 Oxygen Delivery Room Air Nasal Cannula Oxygen Flow Rate 2 Fraction of Inspired Oxygen 02/17/25 08:00 02/17/25 08:00 02/17/25 08:00 Temperature 36.3 C L Pulse Rate 87 93 Respiratory Rate 16 Blood Pressure 125/71 Pulse Oximetry 93 95 Oxygen Delivery Nasal Cannula Oxygen Flow Rate 2 Fraction of Inspired Oxygen 02/17/25 10:00 Temperature Pulse Rate 89 Respiratory Rate Blood Pressure Pulse Oximetry Oxygen Delivery Oxygen Flow Rate Fraction of Inspired Oxygen Intake/Output Intake/Output: Intake & Output 02/14/25 02/15/25 02/16/25 02/17/25 23:59 23:59 23:59 23:59 Intake Total 1650 460 Balance 1650 460 Meds/Results Medications: Active Medications Generic Name Dose Route Start Last Admin Trade Name Freq PRN Reason Stop Dose Admin Acetaminophen 650 mg 02/16/25 19:43 02/16/25 23:55 Acetaminophen 325 Mg Tablet PO 650 mg Q4H PRN Administration Mild Pain (1-3) or Fever Dextrose 12.5 gm 02/17/25 02:48 Dextrose 50% 25 Gm/50 Ml Syringe IV PUSH PRN PRN Hypoglycemia Protocol Glucagon 1 mg 02/17/25 02:48 Glucagon For Inj 1 Mg Vial IM PRN PRN Hypoglycemia Protocol Glucose 15 gm 02/17/25 02:48 Glucose Oral Gel 15 Gm Of Glucse In 37.5 Gm Tube PO PRN PRN Hypoglycemia Protocol Guaifenesin 1,200 mg 02/17/25 09:00 02/17/25 09:20 Guaifenesin 12 Hr 600 Mg Tabcr PO 1,200 mg Q12HR GEE Administration Heparin Sodium (Porcine) 5,000 units 02/17/25 09:00 02/17/25 09:20 Heparin Sodium 5,000 Units/Ml Vial SUB-Q 5,000 units Q12HR GEE Administration Cefepime HCl 1 gm in 50 mls @ 100 mls/hr 02/17/25 17:00 Maxipime 1 Gm/Ns 50 Ml IVPB Q24H GEE Doxycycline Hyclate 100 mg in 100 mls @ 100 mls/hr 02/17/25 06:00 02/17/25 06:25 Vibramycin 100 Mg/Ns 100 Ml IVPB Infused Q12H GEE Infusion Dextrose 1,000 mls @ 100 mls/hr 02/17/25 02:48 Dextrose 5% 1,000 Ml IVPB PRN PRN Hypoglycemia Protocol Insulin Aspart 3 - 6 units 02/17/25 08:00 02/17/25 08:34 Insulin Aspart (*Bkc) 100 Units/Ml SUB-Q Not Given TIDWM [facility] Protocol Insulin Aspart 1 - 3 units 02/17/25 21:00 Insulin Aspart (*Bkc) 100 Units/Ml SUB-Q HS [facility] Protocol Ondansetron HCl 4 mg 02/16/25 19:43 Ondansetron Inj 4 Mg/2 Ml Vial IV PUSH Q4H PRN Nausea Vancomycin HCl 1 each 02/16/25 17:33 Vancomycin For Hemodialysis IVPB PRN PRN Vancomycin Protocol Radiology Results: ITS Impressions Chest X-Ray 02/16/25 14:51 IMPRESSION: Subsegmental right basilar atelectasis/consolidation. Small right pleural effusion Chest/Abdomen/Pelvis CT 02/16/25 16:03 IMPRESSION: Subsegmental right middle lobe consolidation with bilateral lower lobe tree-in-bud opacities, may represent infection, including atypical infection. Aspiration could also be considered in the differential. Mediastinal lymphadenopathy. Bladder wall thickening, may be secondary to incomplete distention or chronic outlet compromise. Correlate with urinalysis. Chronic appearing coccygeal findings, chronic or recurrent osteomyelitis not excluded. Correlate for clinical evidence of recurrent decubitus ulcer. Labs Labs: Laboratory Results - last 24 hr 02/16/25 02/16/25 02/16/25 13:55 16:41 17:49 WBC 14.4 H RBC 3.51 L Hgb 10.1 L Hct 33.4 L MCV 95.2 MCH 28.8 MCHC 30.2 L RDW 13.5 Plt Count 233 MPV 11.2 H Immature Gran % (Auto) 1.2 H Neut % (Auto) 80.2 H Lymph % (Auto) 6.1 L [place] % (Auto) 11.0 H Eos % (Auto) 1.0 Baso % (Auto) 0.5 Lymph # (Auto) 0.88 L [place] # (Auto) 1.6 H Eos # (Auto) 0.2 Baso # (Auto) 0.1 Abs Immat Gran (auto) 0.17 H Absolute Neuts (auto) 11.6 H Absolute Nucleated RBC 0.020 H Nucleated RBC % 0.1 PT 16.8 H INR 1.4 APTT 37.0 H Sodium 138 Potassium 3.8 Chloride 94 L Carbon Dioxide 27 Anion Gap 17 H BUN 17 D Creatinine 5.78 H Estim Creat Clear Calc 15 Estimated GFR 10 L Glucose 147 H POC Capillary Glucose Hemoglobin A1c Lactic Acid 2.2 H 1.8 Calcium 8.8 Phosphorus Magnesium Total Bilirubin 1.0 AST 56 ALT 63 H Alkaline Phosphatase 173 H Troponin I 0.070 H* C-Reactive Protein > 45.0 H Total Protein 9.6 H Albumin 4.3 Lipase 60 Urine Color Yellow Urine Appearance Clear Urine pH 7.0 Ur Specific [place] 1.019 Urine Protein 4+ H Urine Glucose (UA) 2+ H Urine Ketones Trace H Ur Blood (Man) 1+ H Urine Nitrate Negative Urine Bilirubin Negative Urine Urobilinogen 1.0 Add Ur Microanalysis Reviewed Leukocyte Esterase Rfl 1+ H Urine RBC 0-2 Urine WBC 11-20 H Ur Squamous Epith Cells None seen Urine Bacteria None seen Urine Casts 3-5 Nasal MRSA (PCR) Random Vancomycin Monoscreen Negative Influenza A (RT-PCR) Negative Influenza B (RT-PCR) Negative RSV (RT-PCR) Negative SARS-CoV-2 RNA (RT-PCR) Negative Group A Strep (PCR) Not detected 02/16/25 02/16/25 02/16/25 18:32 18:47 21:39 WBC RBC Hgb Hct MCV MCH MCHC RDW Plt Count MPV Immature Gran % (Auto) Neut % (Auto) Lymph % (Auto) [place] % (Auto) Eos % (Auto) Baso % (Auto) Lymph # (Auto) [place] # (Auto) Eos # (Auto) Baso # (Auto) Abs Immat Gran (auto) Absolute Neuts (auto) Absolute Nucleated RBC Nucleated RBC % PT INR APTT Sodium Potassium Chloride Carbon Dioxide Anion Gap BUN Creatinine Estim Creat Clear Calc Estimated GFR Glucose POC Capillary Glucose 173 H Hemoglobin A1c Lactic Acid Calcium Phosphorus Magnesium Total Bilirubin AST ALT Alkaline Phosphatase Troponin I 0.076 H* C-Reactive Protein Total Protein Albumin Lipase Urine Color Urine Appearance Urine pH Ur Specific [place] Urine Protein Urine Glucose (UA) Urine Ketones Ur Blood (Man) Urine Nitrate Urine Bilirubin Urine Urobilinogen Add Ur Microanalysis Leukocyte Esterase Rfl Urine RBC Urine WBC Ur Squamous Epith Cells Urine Bacteria Urine Casts Nasal MRSA (PCR) Not detected Random Vancomycin Monoscreen Influenza A (RT-PCR) Influenza B (RT-PCR) RSV (RT-PCR) SARS-CoV-2 RNA (RT-PCR) Group A Strep (PCR) 02/16/25 02/17/25 02/17/25 23:57 04:51 07:03 WBC 13.0 H RBC 3.29 L Hgb 9.7 L Hct 31.6 L MCV 96.0 MCH 29.5 MCHC 30.7 L RDW 13.5 Plt Count 215 MPV 11.1 H Immature Gran % (Auto) Neut % (Auto) Lymph % (Auto) [place] % (Auto) Eos % (Auto) Baso % (Auto) Lymph # (Auto) [place] # (Auto) Eos # (Auto) Baso # (Auto) Abs Immat Gran (auto) Absolute Neuts (auto) Absolute Nucleated RBC Nucleated RBC % PT INR APTT Sodium 135 L Potassium 3.9 Chloride 94 L Carbon Dioxide 27 Anion Gap 14 H BUN 29 H D Creatinine 7.72 H Estim Creat Clear Calc 11 Estimated GFR 7 L Glucose 156 H POC Capillary Glucose Hemoglobin A1c 8.0 H Lactic Acid Calcium 8.6 Phosphorus 4.9 H Magnesium 2.0 Total Bilirubin AST ALT Alkaline Phosphatase Troponin I C-Reactive Protein Total Protein Albumin Lipase Urine Color Urine Appearance Urine pH Ur Specific [place] Urine Protein Urine Glucose (UA) Urine Ketones Ur Blood (Man) Urine Nitrate Urine Bilirubin Urine Urobilinogen Add Ur Microanalysis Leukocyte Esterase Rfl Urine RBC Urine WBC Ur Squamous Epith Cells Urine Bacteria Urine Casts Nasal MRSA (PCR) Not detected Random Vancomycin 22.4 H Monoscreen Influenza A (RT-PCR) Influenza B (RT-PCR) RSV (RT-PCR) SARS-CoV-2 RNA (RT-PCR) Group A Strep (PCR) 02/17/25 07:33 WBC RBC Hgb Hct MCV MCH MCHC RDW Plt Count MPV Immature Gran % (Auto) Neut % (Auto) Lymph % (Auto) [place] % (Auto) Eos % (Auto) Baso % (Auto) Lymph # (Auto) [place] # (Auto) Eos # (Auto) Baso # (Auto) Abs Immat Gran (auto) Absolute Neuts (auto) Absolute Nucleated RBC Nucleated RBC % PT INR APTT Sodium Potassium Chloride Carbon Dioxide Anion Gap BUN Creatinine Estim Creat Clear Calc Estimated GFR Glucose POC Capillary Glucose 134 H Hemoglobin A1c Lactic Acid Calcium Phosphorus Magnesium Total Bilirubin AST ALT Alkaline Phosphatase Troponin I C-Reactive Protein Total Protein Albumin Lipase Urine Color Urine Appearance Urine pH Ur Specific [place] Urine Protein Urine Glucose (UA) Urine Ketones Ur Blood (Man) Urine Nitrate Urine Bilirubin Urine Urobilinogen Add Ur Microanalysis Leukocyte Esterase Rfl Urine RBC Urine WBC Ur Squamous Epith Cells Urine Bacteria Urine Casts Nasal MRSA (PCR) Random Vancomycin Monoscreen Influenza A (RT-PCR) Influenza B (RT-PCR) RSV (RT-PCR) SARS-CoV-2 RNA (RT-PCR) Group A Strep (PCR) Quality VTE Prophylaxis VTE prophylaxis: mechanical ordered and pharmacologic ordered
--- NOTE | 2025-02-17 12:41 | PCSTNOTE ---
Please refer to the Bedside Swallow Evaluation in the EMR. Please note, silent aspiration cannot be ruled out at bedside.
[2025-02-17] MEDS: CEFEPIME 1 GM/NS 50 ML 1 GM/50 ML BAG IVPB (16:03)
[2025-02-17] MEDS: ACETAMINOPHEN 325 MG TABLET 650 MG PO ×2 (16:08→20:04)
[2025-02-17] MEDS: IPRATROPIUM 0.5 MG/ALBUTEROL SULFATE 2.5 MG AMPUL.NEB 3 ML INHALATION (20:26)
--- NOTE | 2025-02-17 23:11 | PM.EVENT ---
Event Note Event Note Event Note: Call received from the patient's nurse at about 23:10. ApneaLink was ordered by the rounding physician to be done on room air. The patient has been consistently requiring 3 L nasal cannula and when he is asleep his SpO2 has been consistently below 80% and frequently in the upper 40s. Discontinue ApneaLink tonight; patient needs to be referred for a sleep study as an outpatient.
[2025-02-17 23:30] LABS: Troponin I 0.056 ng/mL (0.000-0.034)
[2025-02-18] VITALS (19 sets, daily range): BP systolic 104–158; BP diastolic 57–80; PULSE 77–101; RESP 16–24; TEMP 36.4–37.2; O2SAT 92–99
[2025-02-18] MEDS: IPRATROPIUM 0.5 MG/ALBUTEROL SULFATE 2.5 MG AMPUL.NEB 3 ML INHALATION ×4 (02:19→20:49)
--- NOTE | 2025-02-18 02:24 | PCRCNOTE ---
Apnea link test terminated per RN/Doctor order. Patient placed on 3lpm at [id number].
[2025-02-18 04:13] LABS: Hematocrit 29.9 % (42.0-52.0); Hemoglobin 9.2 g/dL (14.0-18.0); Immature Granulocyte Percent A 0.9 % (0-0.5); Lymphocytes Absolute Auto 0.81 K/mm3 (0.9-3.2); Mean Corpuscular HGB Conc 30.8 g/dl (32-36); Mean Corpuscular Hemoglobin 29.3 pg (26-34); Mean Corpuscular Volume 95.2 fl (80-100); Nucleated Red Blood Cells Absolute Auto 0.000 K/mm3 (0.0-0.012); Nucleated Red Blood Cells Perc 0.0 % (0.0-0.2); Platelet Count Result 206 k/mm3 (150-375); Red Blood Count 3.14 M/mm3 (4.6-6.20); White Blood Count 13.6 K/mm3 (4.5-10.0)
[2025-02-18] MEDS: DOXYCYCLINE 100 MG/NS 100 ML 100 MG/100 ML BAG IVPB (05:04)
[2025-02-18] MEDS: guaiFENesin 12 HR 600 MG TABCR 1200 MG PO ×2 (09:05→21:05)
--- NOTE | 2025-02-18 09:31 | PM.IMPN ---
Progress Note: A&P Assessment and Plan (1) Sepsis: Code(s): A41.9 - Sepsis, unspecified organism Status: Acute Assessment and Plan: Clinically improving. Will continue current treatment monitor culture. (2) Pneumonia: Code(s): J18.9 - Pneumonia, unspecified organism Status: Acute Assessment and Plan: Clinically improving. Will continue current treatment monitor closely. (3) End-stage renal disease on hemodialysis: Code(s): N18.6 - End stage renal disease; Z99.2 - Dependence on renal dialysis Status: Acute Assessment and Plan: Continue dialysis. (4) Combined systolic and diastolic congestive heart failure: Code(s): I50.40 - Unspecified combined systolic (congestive) and diastolic (congestive) heart failure Status: Chronic Assessment and Plan: Stable on current medication, will continue current treatment. (5) Anemia in chronic illness: Code(s): D63.8 - Anemia in other chronic diseases classified elsewhere Status: Acute Assessment and Plan: Stable on current medication, will continue current treatment. (6) Insulin dependent diabetes mellitus: Status: Chronic Assessment and Plan: Stable on current medication, will continue current treatment. Plan Sepsis Pneumonia The patient presented to the emergency department from following his dialysis treatment for evaluation of cough and fever after feeling poorly for nearly Meeting criteria for sepsis with relative hypotension, fever, tachycardia, tachypnea, leukocytosis, and elevated lactic acid level in the setting of infection. Lactic acid and blood pressures have normalized with IV fluid. Blood culture and urine culture-no growth so far Source of infection appears to be right-sided pneumonia. on cefepime, doxycycline, and vancomycin pending Legionella and pneumococcal antigens as well as mycoplasma IgM. end-stage renal disease congestive heart failure. Chronic trending up, 7.72 consult nephrology for dialysis Chronic anemia Hemoglobin is stable on review of previous labs. Type 2 diabetes We will hold his long-acting insulin for now and initiate sliding scale insulin, Accu-Cheks, and hypoglycemic protocol. Subjective Date/time seen: 02/18/25 09:31 Interval history: Dyspnea is improving, still has general weakness. denies headache, new focal weakness patient is afebrile, blood pressure stable, Patient is on room air Blood culture urine culture negative Exam Narrative: GENERAL: Pleasant, in no acute distress. Well-nourished. - EYES: EOMI. Anicteric. - HENT: Moist mucous membranes. - LUNGS: Clear to auscultation bilaterally, no wheezing, rhonchi, or rales. - CARDIOVASCULAR: Regular rate and rhythm. No murmur. No JVD. - ABDOMEN: Soft, non-tender and non-distended. No palpable masses. - EXTREMITIES: No edema. Peripheral pulses 2+. Non-tender. right below-knee amputation - NEUROLOGIC: No focal neurological deficits. CN II-XII grossly intact. - PSYCHIATRIC: Awake, Alert and oriented x 3. Appropriate mood and affect. - SKIN: No rashes or lesions. Warm. - LYMPH: No cervical lymphadenopathy. Objective Data Vital Signs Vital Signs: Vital Signs - 24 hr 02/17/25 10:00 02/17/25 12:00 02/17/25 12:00 Temperature 97.3 F L Pulse Rate 89 86 Respiratory Rate 32 H Blood Pressure 141/67 H Pulse Oximetry 96 96 Oxygen Delivery Nasal Cannula Oxygen Flow Rate 2 Fraction of Inspired Oxygen 02/17/25 12:00 02/17/25 14:00 02/17/25 16:00 Temperature Pulse Rate 77 93 Respiratory Rate Blood Pressure Pulse Oximetry 90 Oxygen Delivery Nasal Cannula Oxygen Flow Rate 2 Fraction of Inspired Oxygen 02/17/25 16:00 02/17/25 16:00 02/17/25 18:00 Temperature 97.7 F Pulse Rate 85 90 84 Respiratory Rate 16 Blood Pressure 129/71 Pulse Oximetry 91 Oxygen Delivery Oxygen Flow Rate Fraction of Inspired Oxygen 02/17/25 20:00 02/17/25 20:00 02/17/25 20:00 Temperature 98.1 F Pulse Rate 107 H 103 H Respiratory Rate 20 Blood Pressure 127/81 Pulse Oximetry 100 98 Oxygen Delivery Nasal Cannula Oxygen Flow Rate 3 Fraction of Inspired Oxygen 02/17/25 20:29 02/17/25 20:40 02/17/25 20:58 Temperature Pulse Rate 77 77 Respiratory Rate 22 H 22 H Blood Pressure Pulse Oximetry 97 Oxygen Delivery Nasal Cannula Oxygen Flow Rate 3 Fraction of Inspired Oxygen 28 02/17/25 22:00 02/17/25 22:49 02/17/25 23:15 Temperature Pulse Rate 91 Respiratory Rate Blood Pressure Pulse Oximetry 91 91 Oxygen Delivery Room Air Nasal Cannula Oxygen Flow Rate 3 Fraction of Inspired Oxygen 21 02/17/25 23:55 02/18/25 00:00 02/18/25 02:00 Temperature 98.3 F Pulse Rate 91 90 88 Respiratory Rate 16 Blood Pressure 138/78 Pulse Oximetry 97 Oxygen Delivery Oxygen Flow Rate Fraction of Inspired Oxygen 02/18/25 02:20 02/18/25 02:32 02/18/25 04:00 Temperature Pulse Rate 77 77 Respiratory Rate 16 16 Blood Pressure Pulse Oximetry 97 Oxygen Delivery Nasal Cannula Oxygen Flow Rate 3 Fraction of Inspired Oxygen 02/18/25 04:00 02/18/25 04:00 02/18/25 05:58 Temperature 98.9 F Pulse Rate 100 97 85 Respiratory Rate 18 Blood Pressure 104/65 Pulse Oximetry 99 Oxygen Delivery Oxygen Flow Rate Fraction of Inspired Oxygen 02/18/25 08:00 02/18/25 09:14 02/18/25 09:14 Temperature 97.6 F Pulse Rate 92 91 Respiratory Rate 18 18 Blood Pressure 141/73 H Pulse Oximetry 96 92 Oxygen Delivery Room Air Oxygen Flow Rate Fraction of Inspired Oxygen 02/18/25 09:23 Temperature Pulse Rate 93 Respiratory Rate 16 Blood Pressure Pulse Oximetry Oxygen Delivery Oxygen Flow Rate Fraction of Inspired Oxygen Intake/Output Intake/Output: Intake & Output 02/15/25 02/16/25 02/17/25 02/18/25 23:59 23:59 23:59 23:59 Intake Total 1650 810 240 Balance 1650 810 240 Meds/Results Medications: Active Medications Generic Name Dose Route Start Last Admin Trade Name Freq PRN Reason Stop Dose Admin Acetaminophen 650 mg 02/16/25 19:43 02/17/25 20:04 Acetaminophen 325 Mg Tablet PO 650 mg Q4H PRN Administration Mild Pain (1-3) or Fever Albuterol/Ipratropium 3 ml 02/17/25 20:00 02/18/25 09:14 Ipratropium 0.5 Mg/Albuterol Sulfate 2.5 Mg Ampul.Neb 3 Ml INHALATION 3 ml Q6HRT GEE Administration Dextrose 12.5 gm 02/17/25 02:48 Dextrose 50% 25 Gm/50 Ml Syringe IV PUSH PRN PRN Hypoglycemia Protocol Glucagon 1 mg 02/17/25 02:48 Glucagon For Inj 1 Mg Vial IM PRN PRN Hypoglycemia Protocol Glucose 15 gm 02/17/25 02:48 Glucose Oral Gel 15 Gm Of Glucse In 37.5 Gm Tube PO PRN PRN Hypoglycemia Protocol Guaifenesin 1,200 mg 02/17/25 09:00 02/18/25 09:05 Guaifenesin 12 Hr 600 Mg Tabcr PO 1,200 mg Q12HR GEE Administration Heparin Sodium (Porcine) 5,000 units 02/17/25 09:00 02/18/25 09:05 Heparin Sodium 5,000 Units/Ml Vial SUB-Q 5,000 units Q12HR GEE Administration Cefepime HCl 1 gm in 50 mls @ 100 mls/hr 02/17/25 17:00 02/17/25 16:03 Maxipime 1 Gm/Ns 50 Ml IVPB 100 mls/hr Q24H GEE Administration Doxycycline Hyclate 100 mg in 100 mls @ 100 mls/hr 02/17/25 06:00 02/18/25 05:04 Vibramycin 100 Mg/Ns 100 Ml IVPB 100 mls/hr Q12H GEE Administration Dextrose 1,000 mls @ 100 mls/hr 02/17/25 02:48 Dextrose 5% 1,000 Ml IVPB PRN PRN Hypoglycemia Protocol Insulin Aspart 3 - 6 units 02/17/25 08:00 02/18/25 08:55 Insulin Aspart (*Bkc) 100 Units/Ml SUB-Q Not Given TIDWM [facility] Protocol Insulin Aspart 1 - 3 units 02/17/25 21:00 02/17/25 21:16 Insulin Aspart (*Bkc) 100 Units/Ml SUB-Q Not Given HS [facility] Protocol Ondansetron HCl 4 mg 02/16/25 19:43 Ondansetron Inj 4 Mg/2 Ml Vial IV PUSH Q4H PRN Nausea Vancomycin HCl 1 each 02/16/25 17:33 Vancomycin For Hemodialysis IVPB PRN PRN Vancomycin Protocol Radiology Results: ITS Impressions Chest X-Ray 02/16/25 14:51 IMPRESSION: Subsegmental right basilar atelectasis/consolidation. Small right pleural effusion Chest/Abdomen/Pelvis CT 02/16/25 16:03 IMPRESSION: Subsegmental right middle lobe consolidation with bilateral lower lobe tree-in-bud opacities, may represent infection, including atypical infection. Aspiration could also be considered in the differential. Mediastinal lymphadenopathy. Bladder wall thickening, may be secondary to incomplete distention or chronic outlet compromise. Correlate with urinalysis. Chronic appearing coccygeal findings, chronic or recurrent osteomyelitis not excluded. Correlate for clinical evidence of recurrent decubitus ulcer. Labs Labs: Laboratory Results - last 24 hr 02/17/25 02/17/25 02/17/25 11:48 16:28 20:20 WBC RBC Hgb Hct MCV MCH MCHC RDW Plt Count MPV Immature Gran % (Auto) Neut % (Auto) Lymph % (Auto) [place] % (Auto) Eos % (Auto) Baso % (Auto) Lymph # (Auto) [place] # (Auto) Eos # (Auto) Baso # (Auto) Abs Immat Gran (auto) Absolute Neuts (auto) Absolute Nucleated RBC Nucleated RBC % POC Capillary Glucose 160 H 165 H 163 H Troponin I 02/17/25 02/18/25 22:27 04:04 WBC 13.6 H RBC 3.14 L Hgb 9.2 L Hct 29.9 L MCV 95.2 MCH 29.3 MCHC 30.8 L RDW 13.4 Plt Count 206 MPV 11.1 H Immature Gran % (Auto) 0.9 H Neut % (Auto) 81.1 H Lymph % (Auto) 6.0 L [place] % (Auto) 8.4 Eos % (Auto) 3.2 Baso % (Auto) 0.4 Lymph # (Auto) 0.81 L [place] # (Auto) 1.1 H Eos # (Auto) 0.4 H Baso # (Auto) 0.1 Abs Immat Gran (auto) 0.12 H Absolute Neuts (auto) 11.0 H Absolute Nucleated RBC 0.000 Nucleated RBC % 0.0 POC Capillary Glucose Troponin I 0.056 H*
[2025-02-18] MEDS: ATORVASTATIN 40 MG TABLET PO (10:08)
[2025-02-18] MEDS: CLOPIDOGREL BISULFATE 75 MG TABLET PO (10:08)
[2025-02-18] MEDS: SERTRALINE HCL 25 MG TABLET PO (10:08)
[2025-02-18] MEDS: ASPIRIN 81 MG CHEWABLE TABLET PO (10:09)
[2025-02-18] MEDS: INSULIN ASPART (*BKC) 100 UNITS/ML SUB-Q ×3 (12:19→21:11)
--- NOTE | 2025-02-18 14:05 | PCSTNOTE ---
Please refer to the Modified Barium Swallow Evaluation in the EMR. Gustavo Chacko was seen this date for a modified barium swallow study due to RN reports of coughing frequently with all consistencies. Gustavo was presented with thin liquids via tsp, cup edge and straw, puree, and hard solids. His oral stage of his swallow was remarkable for reduced lingual to palatal seal resulting in premature spillage to the vallecula with thin liquid trials. His pharyngeal swallow was notable for penetration with large consecutive straw drink trial. Penetration was cleared with the force of the swallow. Across consistencies, no notable residue was visualized and no aspiration occurred across consistencies. Impressions: Functional swallowing as no aspiration occurred Recommendations: Level 7 - Regular; Level 0 - Thin; No further ST services warranted
--- NOTE | 2025-02-18 17:04 | PC.NURSE ---
9 beat run of Vtach via telemetry. Asymptomatic. Reviewed with Dr. Ponce. Labs ordered. Started metoprolol tart.
[2025-02-18] MEDS: CEFEPIME 1 GM/NS 50 ML 1 GM/50 ML BAG IVPB (17:22)
[2025-02-18] MEDS: ARTIFICIAL TEARS OPHTH SOLN 15 ML BOTTLE 1 DROP EACH EYE (17:29)
[2025-02-18 18:22] LABS: Anion Gap 17 mmol/L (4-12); Blood Urea Nitrogen 55 mg/dL (9-20); Calcium 8.8 mg/dL (8.4-10.2); Carbon Dioxide 22 mmol/L (22-30); Chloride 96 mmol/L (98-107); Estimated CRCL calculation 8 ml/min; Estimated Glomerular Filt Rate 5; Glucose 216 mg/dL (65-110); Magnesium 2.4 mg/dL (1.6-2.3); Potassium 3.9 mmol/L (3.4-5.0); Sodium 135 mmol/L (137-145)
[2025-02-18] MEDS: DOXYCYCLINE HYCLATE 100 MG TABLET PO (19:47)
[2025-02-18] MEDS: ACETAMINOPHEN 325 MG TABLET 650 MG PO (21:05)
[2025-02-18] MEDS: GABAPENTIN 100 MG CAPSULE PO (21:05)
[2025-02-18] MEDS: METOPROLOL TARTRATE 25 MG TABLET PO (21:06)
[2025-02-19] VITALS (33 sets, daily range): BP systolic 85–163; BP diastolic 63–88; PULSE 52–109; RESP 14–20; TEMP 36.4–37.1; O2SAT 83–100
[2025-02-19] MEDS: IPRATROPIUM 0.5 MG/ALBUTEROL SULFATE 2.5 MG AMPUL.NEB 3 ML INHALATION ×3 (01:30→20:42)
[2025-02-19] MEDS: ASPIRIN 81 MG CHEWABLE TABLET PO (09:18)
[2025-02-19] MEDS: DOXYCYCLINE HYCLATE 100 MG TABLET PO ×2 (09:18→21:06)
[2025-02-19] MEDS: CLOPIDOGREL BISULFATE 75 MG TABLET PO (09:18)
[2025-02-19] MEDS: ATORVASTATIN 40 MG TABLET PO (09:18)
[2025-02-19] MEDS: guaiFENesin 12 HR 600 MG TABCR 1200 MG PO ×2 (09:18→21:06)
[2025-02-19] MEDS: METOPROLOL TARTRATE 25 MG TABLET PO ×2 (09:18→21:06)
[2025-02-19] MEDS: SERTRALINE HCL 25 MG TABLET PO (09:18)
[2025-02-19] MEDS: ARTIFICIAL TEARS OPHTH SOLN 15 ML BOTTLE 1 DROP EACH EYE (09:19)
[2025-02-19] MEDS: ACETAMINOPHEN 325 MG TABLET 650 MG PO ×2 (09:36→21:10)
[2025-02-19 10:59] LABS: Hepatitis B Surface Antigen Negative (Negative)
[2025-02-19 11:24] LABS: Hepatitis B Surface Anti Res Positive
--- NOTE | 2025-02-19 13:04 | P.PNIM_ITS ---
Progress Note: A&P Assessment and Plan (1) Sepsis: Code(s): A41.9 - Sepsis, unspecified organism Status: Acute (2) Pneumonia: Code(s): J18.9 - Pneumonia, unspecified organism Status: Acute (3) End-stage renal disease on hemodialysis: Code(s): N18.6 - End stage renal disease; Z99.2 - Dependence on renal dialysis Status: Acute (4) Combined systolic and diastolic congestive heart failure: Code(s): I50.40 - Unspecified combined systolic (congestive) and diastolic (congestive) heart failure Status: Chronic (5) Anemia in chronic illness: Code(s): D63.8 - Anemia in other chronic diseases classified elsewhere Status: Acute (6) Insulin dependent diabetes mellitus: Status: Chronic Plan This is a 49-year-old male with end-stage renal disease on hemodialysis, type 2 diabetes mellitus, anemia of chronic disease, peripheral vascular disease, comb ined systolic and diastolic congestive heart failure, pulmonary hypertension, and hypertension who presented to the emergency department via EMS from dialysis for evaluation of fever and cough. He has not been feeling well for a week with a sore throat and cough and today during dialysis he started to feel worse. His was able to complete his treatment and he was referred to the emergency department after he was found to have a fever. He resides at a local nursing facility and tells me that her ?at least 20 people have been going around coughing.? His cough is productive but he is blind in is unable to describe what is coming up. His appetite is diminished. He denies headache, chest pain, pleuritic pain, abdominal pain, vomiting, and diarrhea. In the ED: Vital signs on arrival include a temperature of 101.1?, blood pressure 100/64, pulse 110, respiratory rate 35, SpO2 94%. Labs were significant for WBC count of 14.4, hemoglobin 10.1, anion gap 17, BUN 17, creatinine 5.78, lactic acid 2.2 8, troponin 0.070, CRP greater than 45, ALT 63. He tested negative for influenza, RSV, COVID, strep, and mono. CT of the chest, abdomen, and pelvis showed a right middle lobe consolidation, mediastinal lymphadenopathy, bladder wall thickening, and chronic appearing coccygeal findings. He was given a 1 L bolus of lactated Ringer's and was started on cefepime, doxycycline, and vancomycin for pneumonia he is being admitted in this setting for further treatment. Sepsis Met criteria with related hypotension fever tachycardia tachypnea leukocytosis and elevated lactic Acid level. Blood culture no growth to date Pneumonia treated with cefepime doxycycline vancomycin. Antibiotics switched to Augmentin and doxycycline. MBS performed with no aspiration Elevated lactate Elevated troponinFlat trend 0.070-0.07 6-0.056 UTI UA with 11-20 WBC currently on oral Augmentin end-stage renal disease on hemodialysis Tuesday peripheral vascular disease congestive heart failure Chronic anemia Hemoglobin is stable on review of previous labs. Type 2 diabetes We will hold his long-acting insulin for now and initiate sliding scale insulin, Accu-Cheks, and hypoglycemic protocol. DVT prophylaxis on heparin subQ Subjective Date/time seen: 02/19/25 13:04 Interval history: patient is due for dialysis today. No overnight events. patient remains confused. Review of Systems Review of Systems: All systems reviewed & are unremarkable except as noted in HPI and below Exam Narrative: GENERAL: Pleasant, in no acute distress. Well-nourished.Somewhat confused - EYES: EOMI. Anicteric. - HENT: Moist mucous membranes. - LUNGS: coarse breath sounds bilateral , no wheezing, rhonchi, or rales. - CARDIOVASCULAR: Regular rate and rhyth m. No murmur. No JVD. - ABDOMEN: Soft, non-tender and non-dist ended. No palpable masses. - EXTREMITIES: No edema. Peripheral puls es 2+. Non-tender. right below-knee amputation - NEUROLOGIC: No focal neurological defi cits. CN II-XII grossly intact. - PSYCHIATRIC: Awake, Alert and oriented x 3. somewhat confused. Appropriate mood and affect. - SKIN: No rashes or lesions. Warm. - LYMPH: No cervical lymphadenopathy. Objective Data Vital Signs Vital Signs: Vital Signs - 24 hr 02/18/25 14:42 02/18/25 14:52 02/18/25 16:00 Temperature 98.2 F Pulse Rate 85 85 86 Respiratory Rate 16 16 22 H Blood Pressure 143/80 H Pulse Oximetry 96 Oxygen Delivery Oxygen Flow Rate 02/18/25 20:00 02/18/25 20:00 02/18/25 20:00 Temperature 97.8 F Pulse Rate 91 93 Respiratory Rate 20 Blood Pressure 158/80 H Pulse Oximetry 98 99 Oxygen Delivery Nasal Cannula Oxygen Flow Rate 2 02/18/25 20:50 02/18/25 20:54 02/18/25 20:58 Temperature Pulse Rate 90 90 87 Respiratory Rate 18 18 Blood Pressure Pulse Oximetry 99 Oxygen Delivery Nasal Cannula Oxygen Flow Rate 2 02/18/25 21:06 02/19/25 00:00 02/19/25 00:00 Temperature 97.6 F Pulse Rate 95 84 80 Respiratory Rate 18 Blood Pressure 163/77 H Pulse Oximetry 90 Oxygen Delivery Oxygen Flow Rate 02/19/25 01:30 02/19/25 01:38 02/19/25 04:00 Temperature Pulse Rate 85 82 86 Respiratory Rate 18 18 Blood Pressure Pulse Oximetry Oxygen Delivery Oxygen Flow Rate 02/19/25 04:00 02/19/25 07:44 02/19/25 07:45 Temperature Pulse Rate 81 52 L 52 L Respiratory Rate 14 Blood Pressure Pulse Oximetry 99 Oxygen Delivery Nasal Cannula Oxygen Flow Rate 2 02/19/25 07:53 02/19/25 08:00 02/19/25 08:00 Temperature 97.7 F Pulse Rate 88 98 Respiratory Rate 14 16 Blood Pressure 142/80 H Pulse Oximetry 100 94 Oxygen Delivery Nasal Cannula Oxygen Flow Rate 2 02/19/25 08:00 02/19/25 09:18 02/19/25 12:00 Temperature Pulse Rate 95 109 H 82 Respiratory Rate Blood Pressure Pulse Oximetry Oxygen Delivery Oxygen Flow Rate 02/19/25 12:10 02/19/25 12:10 02/19/25 12:16 Temperature 98.8 F Pulse Rate 86 81 Respiratory Rate 16 Blood Pressure 121/78 143/81 H Pulse Oximetry 96 Oxygen Delivery Oxygen Flow Rate 2 02/19/25 12:30 02/19/25 12:45 02/19/25 13:00 Temperature Pulse Rate 80 96 87 Respiratory Rate Blood Pressure 109/74 94/65 L 85/63 L Pulse Oximetry Oxygen Delivery Oxygen Flow Rate Intake/Output Intake/Output: Intake & Output 02/16/25 02/17/25 02/18/25 02/19/25 23:59 23:59 23:59 23:59 Intake Total 4719 468 1427 470 Output Total 0 Balance 9865 032 1681 470 Meds/Results Medications: Active Medications Generic Name Dose Route Start Last Admin Trade Name Freq PRN Reason Stop Dose Admin Acetaminophen 650 mg 02/16/25 19:43 02/19/25 09:36 Acetaminophen 325 Mg Tablet PO 650 mg Q4H PRN Administration Mild Pain (1-3) or Fever Albuterol/Ipratropium 3 ml 02/17/25 20:00 02/19/25 07:40 Ipratropium 0.5 Mg/Albuterol Sulfate 2.5 Mg Ampul.Neb 3 Ml INHALATION 3 ml Q6HRT GEE Administration Amoxicillin/Clavulanate Potassium 1 tablet 02/20/25 19:00 Amoxicillin/Clavulanate K 500-125 Mg Tab PO 02/23/25 09:01 Q12HR GEE Artificial Tears 1 drop 02/18/25 11:05 02/19/25 09:19 Artificial Tears Ophth Soln 15 Ml Bottle EACH EYE 1 drop QID PRN Administration Dry Eye(s) Aspirin 81 mg 02/18/25 08:00 02/19/25 09:18 Aspirin 81 Mg Chewable Tablet PO 81 mg DAILY@0800 GEE Administration Atorvastatin Calcium 40 mg 02/18/25 09:00 02/19/25 09:18 Atorvastatin 40 Mg Tablet PO 40 mg DAILY GEE Administration Clopidogrel Bisulfate 75 mg 02/18/25 09:00 02/19/25 09:18 Clopidogrel Bisulfate 75 Mg Tablet PO 75 mg DAILY GEE Administration Dextrose 12.5 gm 02/17/25 02:48 Dextrose 50% 25 Gm/50 Ml Syringe IV PUSH PRN PRN Hypoglycemia Protocol Doxycycline Hyclate 100 mg 02/18/25 19:00 02/19/25 09:18 Doxycycline Hyclate 100 Mg Tablet PO 02/21/25 09:01 100 mg Q12HR GEE Administration Epoetin Brayan-epbx 10,000 units 02/19/25 18:23 Epoetin Brayan-Epbx 10,000 Units/Ml Vial IV PUSH 02/19/25 18:24 ONCE ONE Gabapentin 100 mg 02/18/25 21:00 02/18/25 21:05 Gabapentin 100 Mg Capsule PO 100 mg QHS GEE Administration Glucagon 1 mg 02/17/25 02:48 Glucagon For Inj 1 Mg Vial IM PRN PRN Hypoglycemia Protocol Glucose 15 gm 02/17/25 02:48 Glucose Oral Gel 15 Gm Of Glucse In 37.5 Gm Tube PO PRN PRN Hypoglycemia Protocol Guaifenesin 1,200 mg 02/17/25 09:00 02/19/25 09:18 Guaifenesin 12 Hr 600 Mg Tabcr PO 1,200 mg Q12HR GEE Administration Heparin Sodium (Porcine) 5,000 units 02/17/25 09:00 02/19/25 09:37 Heparin Sodium 5,000 Units/Ml Vial SUB-Q 5,000 units Q12HR GEE Administration Cefepime HCl 1 gm in 50 mls @ 100 mls/hr 02/17/25 17:00 02/18/25 17:22 Maxipime 1 Gm/Ns 50 Ml IVPB 02/19/25 17:29 100 mls/hr Q24H GEE Administration Dextrose 1,000 mls @ 100 mls/hr 02/17/25 02:48 Dextrose 5% 1,000 Ml IVPB PRN PRN Hypoglycemia Protocol Albumin Human 50 mls @ 999 mls/hr 02/19/25 10:17 Albutein IVPB 03/21/25 10:16 Q10M PRN HYPOTENSION Insulin Aspart 3 - 6 units 02/17/25 08:00 02/19/25 09:17 Insulin Aspart (*Bkc) 100 Units/Ml SUB-Q Not Given TIDWM GEE Protocol Insulin Aspart 1 - 3 units 02/17/25 21:00 02/18/25 21:11 Insulin Aspart (*Bkc) 100 Units/Ml SUB-Q 1 units HS GEE Administration Protocol Metoprolol Tartrate 25 mg 02/18/25 21:00 02/19/25 09:18 Metoprolol Tartrate 25 Mg Tablet PO 25 mg Q12HR GEE Administration Ondansetron HCl 4 mg 02/16/25 19:43 Ondansetron Inj 4 Mg/2 Ml Vial IV PUSH Q4H PRN Nausea Sertraline HCl 25 mg 02/18/25 09:00 02/19/25 09:18 Sertraline Hcl 25 Mg Tablet PO 25 mg DAILY GEE Administration Radiology Results: ITS Impressions Chest X-Ray 02/16/25 14:51 IMPRESSION: Subsegmental right basilar atelectasis/consolidation. Small right pleural effusion Chest/Abdomen/Pelvis CT 02/16/25 16:03 IMPRESSION: Subsegmental right middle lobe consolidation with bilateral lower lobe tree-in-bud opacities, may represent infection, including atypical infection. Aspiration could also be considered in the differential. Mediastinal lymphadenopathy. Bladder wall thickening, may be secondary to incomplete distention or chronic outlet compromise. Correlate with urinalysis. Chronic appearing coccygeal findings, chronic or recurrent osteomyelitis not excluded. Correlate for clinical evidence of recurrent decubitus ulcer. Modified Barium Swallow 02/18/25 14:05 IMPRESSION: As above. Labs Labs: Laboratory Results - last 24 hr 02/18/25 02/18/25 02/18/25 16:35 17:42 17:47 Sodium 135 L Potassium 3.9 Chloride 96 L Carbon Dioxide 22 Anion Gap 17 H BUN 55 H D Creatinine 10.91 H Estim Creat Clear Calc 8 Estimated GFR 5 L Glucose 216 H POC Capillary Glucose 216 H Calcium 8.8 Phosphorus 7.4 H Magnesium 2.4 H Hep Bs Antigen Negative Hep Bs Antibody Positive 02/18/25 02/19/25 02/19/25 20:07 08:10 11:50 Sodium Potassium Chloride Carbon Dioxide Anion Gap BUN Creatinine Estim Creat Clear Calc Estimated GFR Glucose POC Capillary Glucose 241 H 185 H 232 H Calcium Phosphorus Magnesium Hep Bs Antigen Hep Bs Antibody
--- NOTE | 2025-02-19 13:09 | P.CONNP_ITS ---
Assessment and Plan Assessment and plan (1) End stage renal disease: Code(s): N18.6 - End stage renal disease Status: Chronic Assessment and Plan: * HD today * continue //Tue dialysis schedule while hospitalized * follow electrolytes, volume status, and clearance (2) Acute hypoxic respiratory failure: Code(s): J96.01 - Acute respiratory failure with hypoxia Status: Acute Assessment and Plan: * felt to be secondary to pneumonia and possibly fluid/pulmonary vascular congestion * was on 3L on admission -- weaned to 2L at this time * continue current therapy (antibiotics + ultrafiltration) * continue to wean O2 as tolerated (3) Pneumonia: Code(s): J18.9 - Pneumonia, unspecified organism Status: Acute Assessment and Plan: * as noted by admission imaging * cultures negative to date * MBS with no evidence of aspiration * on antibiotics * elevated WBC and hypoxia persist * consider repeat imaging... (4) Confusion: Onset Date: Unknown Code(s): R41.0 - Disorientation, unspecified Status: Acute Assessment and Plan: * noted in the last few days (and continues to fluctuate at times) * likely secondary to infection/acute illness and possibly hypoxia * continue to monitor (5) Chronic combined systolic and diastolic CHF (congestive heart failure): Code(s): I50.42 - Chronic combined systolic (congestive) and diastolic (congestive) heart failure Status: Chronic Assessment and Plan: * as noted by last Echo * continue fluid removal/ultrafiltration to maintain euvolemia as tolerated by hemodynamics * elevated troponins noted on admission...felt to be related to early sepsis/fevers in conjunction with pneumonia * continue supportive therapy (6) Anemia: Qualifiers: Anemia type: due to chronic kidney disease Chronic kidney disease stage: stage 5, not on chronic dialysis Qualified Code(s): N18.5 - Chronic kidney disease, stage 5; D63.1 - Anemia in chronic kidney disease Code(s): D64.9 - Anemia, unspecified Status: Chronic Assessment and Plan: * related to ESRD and acute illness * Epogen/MAYA with dialysis * follow trend of H/H (7) Hypertension: Qualifiers: Hypertension type: unspecified Qualified Code(s): I10 - Essential (primary) hypertension Code(s): I10 - Essential (primary) hypertension Status: Chronic Assessment and Plan: * BP on hold on admission * BP running low at this time as well * follow trend of hemodynamics * reintroduce BP medication as needed (8) Diabetes: Code(s): E11.9 - Type 2 diabetes mellitus without complications Status: Chronic Assessment and Plan: * follow accu-cheks * glycemic control per hospitalist I will continue to follow the patient with you while he remains hospitalized and make further recommendations as deemed necessary. Thank you for allowing me to participate in the care of this patient. L History of Present Illness Reason for Consult Consult date: 02/19/25 Reason for consult: end stage renal disease Chief Complaint Chief complaint: ESRD on dialysis; PNA; elev trop History of Present Illness Narrative: The patient is a 49-year-old male with a past medical history as outlined below who presented to [facility] Emergency Room via EMS from his outpatient dialysis clinic due to fever and cough. The patient had some issues with fluctuating mentation at the time of my visit so some of the history that he provided has been supplemented by review of the electronic medical record. His mentation seemed to improve by the time I was done conversing with him. He states that he has not been feeling very well for last week if not longer with complaints of a sore throat and productive cough. He is unable to tell me what his sputum looked like due to his visual impairment. He forced himself to go to his last outpatient dialysis clinic on Tuesday despite the symptoms but continued to feel quite poorly. he does report that he resides in a nursing facility and that numerous residence there have a cough as well. Other associated symptoms include diminished oral intake but he denies any headaches, chest pain, abdominal pain, nausea, vomiting, or diarrhea. He completed his dialysis treatment on Tuesday but he reportedly had a fever during his dialysis treatment and was recommended that he go to the emergency room for further assessment -- EMS was called and he was subsequently transported to the ER for further assessment. On arrival to the emergency room, the patient was noted to be tachycardic, tachypneic, and febrile in association with relative hypotension ( temperature 101.1?, blood pressure 100/64, pulse 110, and respiratory rate 35) along with oxygenation of 94% on room air. Subsequent testing demonstrated a white blood cell count of 14.4, hemoglobin 10.1, chemistry labs consistent with his known history of end-stage renal disease, lactic acid of 2.2, CRP greater than 45, and testing for COVID/RSV/influenza/Strep throat/mononucleosis was negative. Subsequent imaging included a CT scan of the chest / abdomen / pelvis which showed a right middle lobe consolidation, mediastinal lymphadenopathy, bladder wall thickening, and chronic appearing coccygeal findings. Given the concerns for early sepsis, he received IV fluid boluses and after appropriate cultures were obtained, started on broad-spectrum antibiotics for his pneumonia. He was subsequently admitted to the hospital for further evaluation and therapy. Since his admission, as mentioned above, he has had some fluctuations in his mentation but is still alert & oriented x 3. He has required supplemental oxygen to maintain his given his fluctuating O2 saturations but tolerating antibiotic therapy. He reports some mild shortness of breath when seen. Renal consultation was requested due to his end-stage renal disease. The patient normally dialyzes on a Tuesday, , Tuesday dialysis schedule at [facility] dialysis under the care of Dr. Michael Johnson. From a dialysis perspective, he usually does reasonably well in general and has been compliant with his dialysis treatments. His only significant issue with regard to his end-stage renal disease is the fact that dialysis access has been somewhat of a problem/issue and he is currently dialysis catheter dependent as he has been deemed exhausted with regard to AV access placement. As already mentioned, his last dialysis treatment was on 02/16/25, and is due for dialysis today. Currently, at the time my evaluation, he is tolerating dialysis reasonably well (seen on HD at 1:00PM). Review of Systems 2 Review of Systems: As per HPI. 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 Ischemic cardiomyopathy Lexiscan stress on 01/26/2021 showed a large area of severe infarct involving the apical lateral and mid to basal anterolateral and inferolateral segments of left ventricle on myocardial perfusion imaging with a left ventricular ejection fracture measuring 45%. Anemia in chronic illness EPO-persistent anemia. Insulin dependent diabetes mellitus Hemoglobin A1c was 10.9% on 01/23/2021. Complicated by gastric dysmotility, neuropathy, and nephropathy. Hypertension Peripheral vascular disease Surgical History Surgical History History of colonoscopy with polypectomy (01/27/21) 2 benign polyps removed. History of right below knee amputation Family History Family History Other Unknown family medical history Social History Social History Social History: The patient is now [facility]. Prior to that he was living in [place] with his sister, [id number], nieces, and nephews. Nonsmoker. No alcohol or illicit substance abuse. He designates his sister, Birdie Stroud, as his surrogate decision maker and he wishes to be a full code. Smoking status: Never smoker Alcohol intake: never Substance use: never Substance use type: does not use Spiritual care concerns: No Meds Home Medications and Allergies Home Medications ?Medication ?Instructions ?Recorded ?Confirmed ?Type bumetanide 1 mg tablet 1 mg PO BID #60 tabs 02/25/21 02/17/25 Rx amlodipine 10 mg tablet 10 mg PO DAILY 05/21/21 02/17/25 History aspirin 81 mg chewable tablet 81 mg PO DAILY@0800 #30 tabs 06/30/21 02/17/25 Rx (Children's Aspirin) atorvastatin 40 mg tablet 40 mg PO DAILY #30 tabs 06/30/21 02/17/25 Rx furosemide 40 mg tablet 40 mg PO MOWEFR #30 tabs 06/30/21 02/17/25 Rx lisinopril 20 mg tablet 20 mg PO QAM #30 tabs 06/30/21 02/17/25 Rx isosorbide mononitrate 60 mg 60 mg PO PRN PRN Hypertension 08/02/21 02/17/25 History tablet,extended release 24 hr insulin glargine 100 unit/mL (3 28 unit subcut HS 01/12/22 02/17/25 History mL) subcutaneous pen (Lantus Solostar U-100 Insulin) metoprolol ta-hydrochlorothiaz See Rx Instructions .Route .COMPLEX 01/12/22 02/17/25 History acetaminophen 325 mg tablet 650 mg PO Q6H PRN fever or pain 02/17/25 02/17/25 History clopidogrel 75 mg tablet 75 mg PO DAILY 02/17/25 02/17/25 History gabapentin 100 mg capsule 100 mg PO QHS 02/17/25 02/17/25 History insulin lispro 100 unit/mL 12 unit subcut TIDWMEAL 02/17/25 02/17/25 History subcutaneous solution melatonin 5 mg tablet 5 mg PO HS 02/17/25 02/17/25 History prednisolone acetate 1 % eye 1 drp LEFT EYE QID 02/17/25 02/17/25 History drops,suspension sertraline 25 mg tablet 25 mg PO DAILY 02/17/25 02/17/25 History simethicone 125 mg chewable tablet 125 mg PO QID PRN abdominal 02/17/25 02/17/25 History (Gas Relief Extra Strength) distention Allergies Allergy/AdvReac Type Severity Reaction Status Date / Time iohexol (From contrast - CT, Allergy Unresponsiv Verified 02/16/25 15:38 X-RAY) e gadobenic acid (From AdvReac Unconscious Verified 02/16/25 15:38 contrast - MRI) Vital Signs Vital Signs Temp Pulse Resp BP Pulse Ox O2 Del Method O2 Flow Rate 02/19/25 13:00 87 85/63 L 02/19/25 12:45 96 94/65 L 02/19/25 12:30 80 109/74 02/19/25 12:16 81 143/81 H 02/19/25 12:10 2 02/19/25 12:10 98.8 F 86 16 121/78 96 02/19/25 12:00 82 02/19/25 09:18 109 H 02/19/25 08:00 95 02/19/25 08:00 94 Nasal Cannula 2 02/19/25 08:00 97.7 F 98 16 142/80 H 100 02/19/25 07:53 88 14 02/19/25 07:45 52 L 14 99 Nasal Cannula 2 02/19/25 07:44 52 L 02/19/25 04:00 81 02/19/25 04:00 86 02/19/25 01:38 82 18 02/19/25 01:30 85 18 02/19/25 00:00 80 02/19/25 00:00 97.6 F 84 18 163/77 H 90 02/18/25 21:06 95 02/18/25 20:58 87 18 02/18/25 20:54 90 99 Nasal Cannula 2 02/18/25 20:50 90 18 02/18/25 20:00 93 02/18/25 20:00 99 Nasal Cannula 2 02/18/25 20:00 97.8 F 91 20 158/80 H 98 02/18/25 16:00 98.2 F 86 22 H 143/80 H 96 02/18/25 14:52 85 16 02/18/25 14:42 85 16 Exam 2 Narrative: GENERAL APPEARANCE: well developed well nourished male in no acute distress HEENT: normocephalic, atraumatic, normal conjunctiva and sclera, nares patient NECK: no lymphadenopathy, thyromegaly, or JVD MOUTH: normal lips, teeth, and gums CARDIOVASCULAR: RRR, normal S1 and S2, no rub detected RESPIRATORY: coarse breath sounds with bibasilar crackles ABDOMEN: soft, nontender, nondistended, positive bowel sounds present EXTREMITIES: no evidence of cyanosis, clubbing, or edema; s/p right BKA NEUROLOGICAL: alert and oriented x 3 (mild confusion); CN II - XII intact bilaterally; no focal deficits noted Results Lab Results 02/21/25 05:31 02/21/25 05:31 Lab results: Most recent lab results Calcium 8.8 mg/dL (8.4-10.2) 02/18/25 17:47 Phosphorus 7.4 mg/dL (2.5-4.5) H 02/18/25 17:47 Magnesium 2.4 mg/dL (1.6-2.3) H 02/18/25 17:47
[2025-02-19] MEDS: EPOETIN ALFA-EPBX 10,000 UNITS/ML VIAL 10000 UNITS IV PUSH (13:19)
[2025-02-19] MEDS: SODIUM CHLORIDE 0.9% IV 1,000 ML 999 ML IV CONT (13:20)
[2025-02-19] MEDS: CEFEPIME 1 GM/NS 50 ML 1 GM/50 ML BAG IVPB (17:17)
[2025-02-19 20:08] LABS: Hematocrit 28.2 % (42.0-52.0); Hemoglobin 8.9 g/dL (14.0-18.0); Immature Granulocyte Percent A 2.3 % (0-0.5); Lymphocytes Absolute Auto 0.49 K/mm3 (0.9-3.2); Mean Corpuscular HGB Conc 31.6 g/dl (32-36); Mean Corpuscular Hemoglobin 29.5 pg (26-34); Mean Corpuscular Volume 93.4 fl (80-100); Nucleated Red Blood Cells Absolute Auto 0.000 K/mm3 (0.0-0.012); Nucleated Red Blood Cells Perc 0.0 % (0.0-0.2); Platelet Count Result 238 k/mm3 (150-375); Red Blood Count 3.02 M/mm3 (4.6-6.20); White Blood Count 10.7 K/mm3 (4.5-10.0)
[2025-02-19 20:49] LABS: Alanine Aminotransferase 48 U/L (6-50); Albumin Level 3.6 g/dL (3.5-5.1); Alkaline Phosphatase 128 U/L (38-126); Anion Gap 11 mmol/L (4-12); Aspartate Amino Transferase 49 U/L (17-59); Bilirubin,Total 0.8 mg/dL (0.2-1.3); Blood Urea Nitrogen 23 mg/dL (9-20); Calcium 9.1 mg/dL (8.4-10.2); Carbon Dioxide 24 mmol/L (22-30); Chloride 102 mmol/L (98-107); Estimated CRCL calculation 15 ml/min; Estimated Glomerular Filt Rate 11; Glucose 261 mg/dL (65-110); Magnesium 2.1 mg/dL (1.6-2.3); Potassium 3.9 mmol/L (3.4-5.0); Sodium 137 mmol/L (137-145); Total Protein 8.0 g/dL (6.3-8.2)
[2025-02-19] MEDS: GABAPENTIN 100 MG CAPSULE PO (21:06)
[2025-02-19] MEDS: INSULIN ASPART (*BKC) 100 UNITS/ML SUB-Q (21:07)
[2025-02-20] VITALS (15 sets, daily range): BP systolic 139–179; BP diastolic 67–92; PULSE 80–106; RESP 16–28; TEMP 36.2–36.8; O2SAT 92–100
[2025-02-20] MEDS: IPRATROPIUM 0.5 MG/ALBUTEROL SULFATE 2.5 MG AMPUL.NEB 3 ML INHALATION ×4 (01:29→19:23)
[2025-02-20 04:44] LABS: Hematocrit 29.6 % (42.0-52.0); Hemoglobin 9.1 g/dL (14.0-18.0); Immature Granulocyte Percent A 2.7 % (0-0.5); Lymphocytes Absolute Auto 0.75 K/mm3 (0.9-3.2); Mean Corpuscular HGB Conc 30.7 g/dl (32-36); Mean Corpuscular Hemoglobin 29.3 pg (26-34); Mean Corpuscular Volume 95.2 fl (80-100); Nucleated Red Blood Cells Absolute Auto 0.000 K/mm3 (0.0-0.012); Nucleated Red Blood Cells Perc 0.0 % (0.0-0.2); Platelet Count Result 251 k/mm3 (150-375); Red Blood Count 3.11 M/mm3 (4.6-6.20); White Blood Count 12.3 K/mm3 (4.5-10.0)
[2025-02-20 05:01] LABS: Alanine Aminotransferase 47 U/L (6-50); Albumin Level 3.7 g/dL (3.5-5.1); Alkaline Phosphatase 136 U/L (38-126); Anion Gap 13 mmol/L (4-12); Aspartate Amino Transferase 47 U/L (17-59); Bilirubin,Total 1.0 mg/dL (0.2-1.3); Blood Urea Nitrogen 28 mg/dL (9-20); Calcium 9.1 mg/dL (8.4-10.2); Carbon Dioxide 23 mmol/L (22-30); Chloride 102 mmol/L (98-107); Estimated CRCL calculation 13 ml/min; Estimated Glomerular Filt Rate 9; Glucose 209 mg/dL (65-110); Magnesium 2.2 mg/dL (1.6-2.3); Potassium 3.8 mmol/L (3.4-5.0); Sodium 138 mmol/L (137-145); Total Protein 8.2 g/dL (6.3-8.2)
[2025-02-20] MEDS: METOPROLOL TARTRATE 25 MG TABLET PO ×2 (11:15→20:42)
[2025-02-20] MEDS: guaiFENesin 12 HR 600 MG TABCR 1200 MG PO ×2 (11:15→20:42)
[2025-02-20] MEDS: CLOPIDOGREL BISULFATE 75 MG TABLET PO (11:16)
[2025-02-20] MEDS: ASPIRIN 81 MG CHEWABLE TABLET PO (11:16)
[2025-02-20] MEDS: SERTRALINE HCL 25 MG TABLET PO (11:16)
[2025-02-20] MEDS: ATORVASTATIN 40 MG TABLET PO (11:16)
[2025-02-20] MEDS: DOXYCYCLINE HYCLATE 100 MG TABLET PO ×2 (11:16→20:42)
--- NOTE | 2025-02-20 12:08 | PM.IMPN ---
Progress Note: A&P Assessment and Plan (1) Sepsis: Code(s): A41.9 - Sepsis, unspecified organism Status: Acute (2) Pneumonia: Code(s): J18.9 - Pneumonia, unspecified organism Status: Acute (3) End-stage renal disease on hemodialysis: Code(s): N18.6 - End stage renal disease; Z99.2 - Dependence on renal dialysis Status: Acute (4) Combined systolic and diastolic congestive heart failure: Code(s): I50.40 - Unspecified combined systolic (congestive) and diastolic (congestive) heart failure Status: Chronic (5) Anemia in chronic illness: Code(s): D63.8 - Anemia in other chronic diseases classified elsewhere Status: Acute (6) Insulin dependent diabetes mellitus: Status: Chronic Plan Sepsis - Met criteria with related hypotension fever tachycardia tachypnea leukocytosis and elevated lactic acid level. Blood culture no growth to date. MRSA nasal swab negative. [place] relate to PNA. Hypoxic resp failure Was on 3L on admission but only weaned to 2L now. Wean O2 as tolerated Pneumonia - treated with cefepime, doxycycline and vancomycin. Antibiotics switched to Augmentin and doxycycline. MBS performed with no aspiration WBC was improving but now higher today. Still with hypoxia. Repeat CXR. Follow WBC Elevated lactate - as above Elevated troponin - Flat trend 0.070-0.07 6-0.056 [place] demand ischemia related to the fever. Possible UTI - UA with 11-20 WBC but UCx negative. UTI uled out. ESRD - on hemodialysis Tuesday Tolerated HD yesterday. Nephrology following PAD - s/p Rt BKA Continue Lipitor and ASA CHF - Patient with chronic diastolic CHF. Contineu HD to control fluid status. Chronic anemia Hemoglobin is stable on review of previous labs. Type 2 diabetes The patient's blood glucose was reviewed on 02/20 Glucose poorly controlled Continue AccuCheks covering with sliding scale. Hypoglycemia protocol available as needed. Add back half dose of his Lantus HTN Multiple home anti-HTN meds have been held. Continue metoprolol. Add back Bumex and lisinopril. Also on Lasix but will not resume this at discharge since this is redundent. . DVT prophylaxis on heparin subQ Code status - Full Subjective Date/time seen: 02/20/25 12:08 Interval history: 49yo male with ESRD, CHF, and DM here for fever and cough. Assuming care. Chart reviewed. Patient denies nausea and vomiting. He denies cough. Denies chest pain or shortness of breath. He is alert and mostly oriented but history is suspect. Exam Narrative: AF 98.1 164/87 94 20 96% 2L Gen - NARD Chest - bibasilar crackles, nml RR. Right upper chest HD catheter in situ CV - RRR S1/S2. Tele showing PVCs Abd - Soft, NT/ND, Positive BS Ext - No left pedal edema. Rt BKA. Neuro - Alert and oriented x3. Psych - odd affect Skin - < dime sized shallow ulcer near the BKA stump. Objective Data Vital Signs Vital Signs: Vital Signs - 24 hr 02/19/25 12:10 02/19/25 12:10 02/19/25 12:16 Temperature 98.8 F Pulse Rate 86 81 Respiratory Rate 16 Blood Pressure 121/78 143/81 H Pulse Oximetry 96 Oxygen Delivery Oxygen Flow Rate 2 02/19/25 12:30 02/19/25 12:45 02/19/25 13:00 Temperature Pulse Rate 80 96 87 Respiratory Rate Blood Pressure 109/74 94/65 L 85/63 L Pulse Oximetry Oxygen Delivery Oxygen Flow Rate 02/19/25 13:15 02/19/25 13:30 02/19/25 13:45 Temperature Pulse Rate 88 86 83 Respiratory Rate Blood Pressure 90/64 L 108/85 150/88 H Pulse Oximetry Oxygen Delivery Oxygen Flow Rate 02/19/25 14:00 02/19/25 14:15 02/19/25 14:30 Temperature Pulse Rate 89 82 97 Respiratory Rate Blood Pressure 134/86 151/82 H 157/85 H Pulse Oximetry Oxygen Delivery Oxygen Flow Rate 02/19/25 14:45 02/19/25 15:00 02/19/25 15:15 Temperature Pulse Rate 92 88 89 Respiratory Rate Blood Pressure 150/85 H 150/85 H 155/83 H Pulse Oximetry Oxygen Delivery Oxygen Flow Rate 02/19/25 15:30 02/19/25 15:47 02/19/25 15:55 Temperature 98.4 F Pulse Rate 90 95 94 Respiratory Rate 18 Blood Pressure 158/85 H 135/82 160/85 H Pulse Oximetry 97 Oxygen Delivery Oxygen Flow Rate 02/19/25 16:00 02/19/25 16:00 02/19/25 20:00 Temperature 97.7 F Pulse Rate 91 91 Respiratory Rate 20 Blood Pressure 128/69 Pulse Oximetry 97 95 Oxygen Delivery Nasal Cannula Oxygen Flow Rate 2 02/19/25 20:00 02/19/25 20:43 02/19/25 20:44 Temperature Pulse Rate 95 92 Respiratory Rate 18 Blood Pressure Pulse Oximetry 95 Oxygen Delivery Nasal Cannula Oxygen Flow Rate 2 02/19/25 20:54 02/20/25 00:00 02/20/25 00:00 Temperature 97.9 F Pulse Rate 94 103 H 106 H Respiratory Rate 18 17 Blood Pressure 176/67 H Pulse Oximetry 100 Oxygen Delivery Oxygen Flow Rate 02/20/25 01:31 02/20/25 04:00 02/20/25 08:00 Temperature 98.1 F Pulse Rate 96 94 91 Respiratory Rate 18 28 H Blood Pressure 164/87 H Pulse Oximetry 100 Oxygen Delivery Oxygen Flow Rate 02/20/25 08:00 02/20/25 09:06 02/20/25 09:06 Temperature Pulse Rate 91 91 Respiratory Rate 20 20 Blood Pressure Pulse Oximetry 95 96 Oxygen Delivery Nasal Cannula Nasal Cannula Oxygen Flow Rate 2 2 02/20/25 09:15 Temperature Pulse Rate 94 Respiratory Rate 20 Blood Pressure Pulse Oximetry Oxygen Delivery Oxygen Flow Rate Intake/Output Intake/Output: Intake & Output 02/17/25 02/18/25 02/19/25 02/20/25 23:59 23:59 23:59 23:59 Intake Total 860 1200 910 Output Total 0 1000 0 Balance 860 1200 -90 0 Meds/Results Medications: Active Medications Generic Name Dose Route Start Last Admin Trade Name Angi PRN Reason Stop Dose Admin Acetaminophen 650 mg 02/16/25 19:43 02/19/25 21:10 Acetaminophen 325 Mg Tablet PO 650 mg Q4H PRN Administration Mild Pain (1-3) or Fever Albuterol/Ipratropium 3 ml 02/17/25 20:00 02/20/25 09:05 Ipratropium 0.5 Mg/Albuterol Sulfate 2.5 Mg Ampul.Neb 3 Ml INHALATION 3 ml Q6HRT GEE Administration Amoxicillin/Clavulanate Potassium 1 tablet 02/20/25 19:00 Amoxicillin/Clavulanate K 500-125 Mg Tab PO 02/23/25 09:01 Q12HR GEE Artificial Tears 1 drop 02/18/25 11:05 02/19/25 09:19 Artificial Tears Ophth Soln 15 Ml Bottle EACH EYE 1 drop QID PRN Administration Dry Eye(s) Aspirin 81 mg 02/18/25 08:00 02/20/25 11:16 Aspirin 81 Mg Chewable Tablet PO 81 mg DAILY@0800 GEE Administration Atorvastatin Calcium 40 mg 02/18/25 09:00 02/20/25 11:16 Atorvastatin 40 Mg Tablet PO 40 mg DAILY GEE Administration Clopidogrel Bisulfate 75 mg 02/18/25 09:00 02/20/25 11:16 Clopidogrel Bisulfate 75 Mg Tablet PO 75 mg DAILY GEE Administration Dextrose 12.5 gm 02/17/25 02:48 Dextrose 50% 25 Gm/50 Ml Syringe IV PUSH PRN PRN Hypoglycemia Protocol Doxycycline Hyclate 100 mg 02/18/25 19:00 02/20/25 11:16 Doxycycline Hyclate 100 Mg Tablet PO 02/21/25 09:01 100 mg Q12HR GEE Administration Gabapentin 100 mg 02/18/25 21:00 02/19/25 21:06 Gabapentin 100 Mg Capsule PO 100 mg QHS GEE Administration Glucagon 1 mg 02/17/25 02:48 Glucagon For Inj 1 Mg Vial IM PRN PRN Hypoglycemia Protocol Glucose 15 gm 02/17/25 02:48 Glucose Oral Gel 15 Gm Of Glucse In 37.5 Gm Tube PO PRN PRN Hypoglycemia Protocol Guaifenesin 1,200 mg 02/17/25 09:00 02/20/25 11:15 Guaifenesin 12 Hr 600 Mg Tabcr PO 1,200 mg Q12HR GEE Administration Heparin Sodium (Porcine) 5,000 units 02/17/25 09:00 02/20/25 11:16 Heparin Sodium 5,000 Units/Ml Vial SUB-Q 5,000 units Q12HR GEE Administration Dextrose 1,000 mls @ 100 mls/hr 02/17/25 02:48 Dextrose 5% 1,000 Ml IVPB PRN PRN Hypoglycemia Protocol Albumin Human 50 mls @ 999 mls/hr 02/19/25 10:17 Albutein IVPB 03/21/25 10:16 Q10M PRN HYPOTENSION Insulin Aspart 3 - 6 units 02/17/25 08:00 02/20/25 11:16 Insulin Aspart (*Bkc) 100 Units/Ml SUB-Q Not Given TIDWM [facility] Protocol Insulin Aspart 1 - 3 units 02/17/25 21:00 02/19/25 21:07 Insulin Aspart (*Bkc) 100 Units/Ml SUB-Q 1 units HS GEE Administration Protocol Metoprolol Tartrate 25 mg 02/18/25 21:00 02/20/25 11:15 Metoprolol Tartrate 25 Mg Tablet PO 25 mg Q12HR GEE Administration Ondansetron HCl 4 mg 02/16/25 19:43 Ondansetron Inj 4 Mg/2 Ml Vial IV PUSH Q4H PRN Nausea Sertraline HCl 25 mg 02/18/25 09:00 02/20/25 11:16 Sertraline Hcl 25 Mg Tablet PO 25 mg DAILY GEE Administration Radiology Results: ITS Impressions Chest X-Ray 02/16/25 14:51 IMPRESSION: Subsegmental right basilar atelectasis/consolidation. Small right pleural effusion Chest/Abdomen/Pelvis CT 02/16/25 16:03 IMPRESSION: Subsegmental right middle lobe consolidation with bilateral lower lobe tree-in-bud opacities, may represent infection, including atypical infection. Aspiration could also be considered in the differential. Mediastinal lymphadenopathy. Bladder wall thickening, may be secondary to incomplete distention or chronic outlet compromise. Correlate with urinalysis. Chronic appearing coccygeal findings, chronic or recurrent osteomyelitis not excluded. Correlate for clinical evidence of recurrent decubitus ulcer. Modified Barium Swallow 02/18/25 14:05 IMPRESSION: As above. Labs Labs: Laboratory Results - last 24 hr 02/19/25 02/19/25 02/19/25 16:07 20:04 20:30 WBC 10.7 H RBC 3.02 L Hgb 8.9 L Hct 28.2 L MCV 93.4 MCH 29.5 MCHC 31.6 L RDW 13.6 Plt Count 238 MPV 11.0 H Immature Gran % (Auto) 2.3 H Neut % (Auto) 79.5 H Lymph % (Auto) 4.6 L [place] % (Auto) 7.0 Eos % (Auto) 6.1 H Baso % (Auto) 0.5 Lymph # (Auto) 0.49 L [place] # (Auto) 0.8 H Eos # (Auto) 0.7 H Baso # (Auto) 0.1 Abs Immat Gran (auto) 0.25 H Absolute Neuts (auto) 8.5 H Absolute Nucleated RBC 0.000 Nucleated RBC % 0.0 Sodium 137 Potassium 3.9 Chloride 102 Carbon Dioxide 24 Anion Gap 11 BUN 23 H D Creatinine 5.64 H Estim Creat Clear Calc 15 Estimated GFR 11 L Glucose 261 H POC Capillary Glucose 185 H Calcium 9.1 Phosphorus Magnesium 2.1 Total Bilirubin 0.8 AST 49 ALT 48 Alkaline Phosphatase 128 H Total Protein 8.0 Albumin 3.6 02/19/25 02/20/25 02/20/25 20:43 04:34 09:22 WBC 12.3 H RBC 3.11 L Hgb 9.1 L Hct 29.6 L MCV 95.2 MCH 29.3 MCHC 30.7 L RDW 13.6 Plt Count 251 MPV 10.7 H Immature Gran % (Auto) 2.7 H Neut % (Auto) 78.6 H Lymph % (Auto) 6.1 L [place] % (Auto) 6.4 Eos % (Auto) 5.6 H Baso % (Auto) 0.6 Lymph # (Auto) 0.75 L [place] # (Auto) 0.8 H Eos # (Auto) 0.7 H Baso # (Auto) 0.1 Abs Immat Gran (auto) 0.33 H Absolute Neuts (auto) 9.7 H Absolute Nucleated RBC 0.000 Nucleated RBC % 0.0 Sodium 138 Potassium 3.8 Chloride 102 Carbon Dioxide 23 Anion Gap 13 H BUN 28 H Creatinine 6.51 H Estim Creat Clear Calc 13 Estimated GFR 9 L Glucose 209 H POC Capillary Glucose 223 H 200 H Calcium 9.1 Phosphorus 4.9 H Magnesium 2.2 Total Bilirubin 1.0 AST 47 ALT 47 Alkaline Phosphatase 136 H Total Protein 8.2 Albumin 3.7
--- NOTE | 2025-02-20 12:47 | P.PNNP_ITS ---
Progress Note: A&P Assessment and Plan (1) End stage renal disease: Code(s): N18.6 - End stage renal disease Status: Chronic Assessment and Plan: * HD tomorrow * continue //Tue dialysis schedule while hospitalized * follow electrolytes, volume status, and clearance (2) Acute hypoxic respiratory failure: Code(s): J96.01 - Acute respiratory failure with hypoxia Status: Acute Assessment and Plan: * felt to be secondary to pneumonia and possibly fluid/pulmonary vascular congestion * was on 3L on admission -- weaned to 2L at this time * continue current therapy (antibiotics + ultrafiltration) * continue to wean O2 as tolerated (3) Pneumonia: Code(s): J18.9 - Pneumonia, unspecified organism Status: Acute Assessment and Plan: * as noted by admission imaging * cultures negative to date * MBS with no evidence of aspiration * on antibiotics * elevated WBC and hypoxia persist * repeat CXR pending (4) Confusion: Onset Date: Unknown Code(s): R41.0 - Disorientation, unspecified Status: Acute Assessment and Plan: * noted in the last few days (and continues to fluctuate) * likely secondary to infection/acute illness and possibly hypoxia * continue to monitor (5) Chronic combined systolic and diastolic CHF (congestive heart failure): Code(s): I50.42 - Chronic combined systolic (congestive) and diastolic (congestive) heart failure Status: Chronic Assessment and Plan: * as noted by last Echo * continue fluid removal/ultrafiltration to maintain euvolemia as tolerated by hemodynamics * elevated troponins noted on admission...felt to be related to early sepsis/fevers in conjunction with pneumonia * continue supportive therapy (6) Anemia: Qualifiers: Anemia type: due to chronic kidney disease Chronic kidney disease stage: stage 5, not on chronic dialysis Qualified Code(s): N18.5 - Chronic kidney disease, stage 5; D63.1 - Anemia in chronic kidney disease Code(s): D64.9 - Anemia, unspecified Status: Chronic Assessment and Plan: * related to ESRD and acute illness * Epogen/MAYA with dialysis * follow trend of H/H (7) Hypertension: Qualifiers: Hypertension type: unspecified Qualified Code(s): I10 - Essential (primary) hypertension Code(s): I10 - Essential (primary) hypertension Status: Chronic Assessment and Plan: * BP initially on hold on admission * slow re-introduce home BP medications given rising blood pressure * follow trend of hemodynamics (8) Diabetes: Code(s): E11.9 - Type 2 diabetes mellitus without complications Status: Chronic Assessment and Plan: * follow accu-cheks * glycemic control per hospitalist Will continue to follow. L Subjective Date/time seen: 02/20/25 12:47 Interval history: Follow-up for end stage renal disease on hemodialysis. Tolerated dialysis treatment yesterday although fluid removal was limited due to suboptimal hemodynamics/hypotension; no apparent distress noted at the time of my visit; still seems slightly confused much like when I saw him during his dialysis treatment yesterday. Exam 2 Narrative: General: WD/WN male in NAD Heart: normal S1 and S2; no rub Lungs: coarse with bibasilar crackles noted Abdomen: soft, nontender, nondistended, positive bowel sounds Extremities: no cyanosis or clubbing; no edema; s/p right BKA Skin: warm and dry Objective Data Vital Signs Vital Signs: Vital Signs Temp Pulse Resp BP Pulse Ox O2 Del Method O2 Flow Rate 02/20/25 12:00 94 02/20/25 12:00 97.6 F 89 22 H 179/87 H 98 02/20/25 09:15 94 20 02/20/25 09:06 91 20 02/20/25 09:06 91 20 96 Nasal Cannula 2 02/20/25 08:00 88 02/20/25 08:00 95 Nasal Cannula 2 02/20/25 08:00 98.1 F 91 28 H 164/87 H 100 02/20/25 04:00 94 02/20/25 01:31 96 18 02/20/25 00:00 106 H 02/20/25 00:00 97.9 F 103 H 17 176/67 H 100 02/19/25 20:54 94 18 02/19/25 20:44 92 18 02/19/25 20:43 95 Nasal Cannula 2 02/19/25 20:00 95 02/19/25 20:00 95 Nasal Cannula 2 Intake/Output Intake/Output: Intake & Output 02/17/25 02/18/25 02/19/25 02/20/25 23:59 23:59 23:59 23:59 Intake Total 860 1200 910 Output Total 0 1000 0 Balance 860 1200 -90 0 Meds/Results Medications: Active Medications Generic Name Dose Route Start Last Admin Trade Name Rashaadq PRN Reason Stop Dose Admin Acetaminophen 650 mg 02/16/25 19:43 02/19/25 21:10 Acetaminophen 325 Mg Tablet PO 650 mg Q4H PRN Administration Mild Pain (1-3) or Fever Albuterol/Ipratropium 3 ml 02/17/25 20:00 02/20/25 13:41 Ipratropium 0.5 Mg/Albuterol Sulfate 2.5 Mg Ampul.Neb 3 Ml INHALATION 3 ml Q6HRT GEE Administration Amoxicillin/Clavulanate Potassium 1 tablet 02/20/25 19:00 Amoxicillin/Clavulanate K 500-125 Mg Tab PO 02/23/25 09:01 Q12HR GEE Artificial Tears 1 drop 02/18/25 11:05 02/19/25 09:19 Artificial Tears Ophth Soln 15 Ml Bottle EACH EYE 1 drop QID PRN Administration Dry Eye(s) Aspirin 81 mg 02/18/25 08:00 02/20/25 11:16 Aspirin 81 Mg Chewable Tablet PO 81 mg DAILY@0800 GEE Administration Atorvastatin Calcium 40 mg 02/18/25 09:00 02/20/25 11:16 Atorvastatin 40 Mg Tablet PO 40 mg DAILY GEE Administration Bumetanide 1 mg 02/20/25 17:00 Bumetanide 1 Mg Tablet PO BID GEE Clopidogrel Bisulfate 75 mg 02/18/25 09:00 02/20/25 11:16 Clopidogrel Bisulfate 75 Mg Tablet PO 75 mg DAILY GEE Administration Dextrose 12.5 gm 02/17/25 02:48 Dextrose 50% 25 Gm/50 Ml Syringe IV PUSH PRN PRN Hypoglycemia Protocol Doxycycline Hyclate 100 mg 02/18/25 19:00 02/20/25 11:16 Doxycycline Hyclate 100 Mg Tablet PO 02/21/25 09:01 100 mg Q12HR GEE Administration Gabapentin 100 mg 02/18/25 21:00 02/19/25 21:06 Gabapentin 100 Mg Capsule PO 100 mg QHS GEE Administration Glucagon 1 mg 02/17/25 02:48 Glucagon For Inj 1 Mg Vial IM PRN PRN Hypoglycemia Protocol Glucose 15 gm 02/17/25 02:48 Glucose Oral Gel 15 Gm Of Glucse In 37.5 Gm Tube PO PRN PRN Hypoglycemia Protocol Guaifenesin 1,200 mg 02/17/25 09:00 02/20/25 11:15 Guaifenesin 12 Hr 600 Mg Tabcr PO 1,200 mg Q12HR GEE Administration Heparin Sodium (Porcine) 5,000 units 02/17/25 09:00 02/20/25 11:16 Heparin Sodium 5,000 Units/Ml Vial SUB-Q 5,000 units Q12HR GEE Administration Dextrose 1,000 mls @ 100 mls/hr 02/17/25 02:48 Dextrose 5% 1,000 Ml IVPB PRN PRN Hypoglycemia Protocol Albumin Human 50 mls @ 999 mls/hr 02/19/25 10:17 Albutein IVPB 03/21/25 10:16 Q10M PRN HYPOTENSION Insulin Aspart 3 - 6 units 02/17/25 08:00 02/20/25 11:16 Insulin Aspart (*Bkc) 100 Units/Ml SUB-Q Not Given TIDWM GEE Protocol Insulin Aspart 1 - 3 units 02/17/25 21:00 02/19/25 21:07 Insulin Aspart (*Bkc) 100 Units/Ml SUB-Q 1 units HS GEE Administration Protocol Insulin Glargine 10 units 02/20/25 21:00 Insulin Glargine (*Bkc) 100 Units/Ml SUB-Q HS GEE Lisinopril 20 mg 02/20/25 12:35 Lisinopril 20 Mg Tablet PO QAM GEE Melatonin 5 mg 02/20/25 21:00 Melatonin 5 Mg Tablet PO HS GEE Metoprolol Tartrate 25 mg 02/18/25 21:00 02/20/25 11:15 Metoprolol Tartrate 25 Mg Tablet PO 25 mg Q12HR GEE Administration Ondansetron HCl 4 mg 02/16/25 19:43 Ondansetron Inj 4 Mg/2 Ml Vial IV PUSH Q4H PRN Nausea Prednisolone Acetate 1 drop 02/20/25 13:00 Prednisolone Acetate 1% Ophth 5 Ml LEFT EYE QID GEE Sertraline HCl 25 mg 02/18/25 09:00 02/20/25 11:16 Sertraline Hcl 25 Mg Tablet PO 25 mg DAILY GEE Administration Simethicone 125 mg 02/20/25 12:32 Simethicone 125 Mg Chew Tab PO QID PRN abdominal distention Radiology Results: ITS Impressions Chest/Abdomen/Pelvis CT 02/16/25 16:03 IMPRESSION: Subsegmental right middle lobe consolidation with bilateral lower lobe tree-in-bud opacities, may represent infection, including atypical infection. Aspiration could also be considered in the differential. Mediastinal lymphadenopathy. Bladder wall thickening, may be secondary to incomplete distention or chronic outlet compromise. Correlate with urinalysis. Chronic appearing coccygeal findings, chronic or recurrent osteomyelitis not excluded. Correlate for clinical evidence of recurrent decubitus ulcer. Modified Barium Swallow 02/18/25 14:05 IMPRESSION: As above. Labs Labs: Laboratory Tests 02/20/25 04:34 02/20/25 04:34 Calcium 9.1 Phosphorus 4.9 H Magnesium 2.2 Total Bilirubin 1.0 AST 47 ALT 47 Alkaline Phosphatase 136 H Total Protein 8.2 Albumin 3.7
[2025-02-20] MEDS: BUMETANIDE 1 MG TABLET PO (17:30)
[2025-02-20] MEDS: prednisoLONE ACETATE 1% OPHTH 5 ML 1 DROP LEFT EYE ×2 (17:30→22:15)
--- NOTE | 2025-02-20 18:46 | PC.NURSE ---
Patient arrived to room 341 from IMU @ 1800. Patient helped with dinner and placed on room air, O2 94%. Gauze placed atop of call button and had patient demonstrate that he was able to call for help if needed. Checked on frequently.
[2025-02-20] MEDS: GABAPENTIN 100 MG CAPSULE PO (20:42)
[2025-02-20] MEDS: MELATONIN 5 MG TABLET PO (20:42)
[2025-02-20] MEDS: INSULIN GLARGINE (*BKC) 100 UNITS/ML 10 UNITS SUB-Q (20:49)
[2025-02-21] VITALS (28 sets, daily range): BP systolic 84–176; BP diastolic 64–87; PULSE 66–99; RESP 16–20; TEMP 35.6–37; O2SAT 92–97
[2025-02-21] MEDS: IPRATROPIUM 0.5 MG/ALBUTEROL SULFATE 2.5 MG AMPUL.NEB 3 ML INHALATION ×3 (01:11→19:26)
[2025-02-21 06:08] LABS: Hematocrit 30.8 % (42.0-52.0); Hemoglobin 9.4 g/dL (14.0-18.0); Immature Granulocyte Percent A 4.3 % (0-0.5); Lymphocytes Absolute Auto 0.97 K/mm3 (0.9-3.2); Mean Corpuscular HGB Conc 30.5 g/dl (32-36); Mean Corpuscular Hemoglobin 29.2 pg (26-34); Mean Corpuscular Volume 95.7 fl (80-100); Nucleated Red Blood Cells Absolute Auto 0.000 K/mm3 (0.0-0.012); Nucleated Red Blood Cells Perc 0.0 % (0.0-0.2); Platelet Count Result 268 k/mm3 (150-375); Red Blood Count 3.22 M/mm3 (4.6-6.20); White Blood Count 12.5 K/mm3 (4.5-10.0)
[2025-02-21 06:19] LABS: Albumin Level 3.7 g/dL (3.5-5.1); Anion Gap 15 mmol/L (4-12); Blood Urea Nitrogen 47 mg/dL (9-20); Calcium 9.0 mg/dL (8.4-10.2); Carbon Dioxide 21 mmol/L (22-30); Chloride 101 mmol/L (98-107); Estimated CRCL calculation 10 ml/min; Estimated Glomerular Filt Rate 7; Glucose 134 mg/dL (65-110); Potassium 4.1 mmol/L (3.4-5.0); Sodium 137 mmol/L (137-145)
[2025-02-21] MEDS: BUMETANIDE 1 MG TABLET PO (09:37)
[2025-02-21] MEDS: DOXYCYCLINE HYCLATE 100 MG TABLET PO (09:37)
[2025-02-21] MEDS: guaiFENesin 12 HR 600 MG TABCR 1200 MG PO (09:37)
[2025-02-21] MEDS: SERTRALINE HCL 25 MG TABLET PO (09:37)
[2025-02-21] MEDS: ATORVASTATIN 40 MG TABLET PO (09:37)
[2025-02-21] MEDS: METOPROLOL TARTRATE 25 MG TABLET PO (09:37)
[2025-02-21] MEDS: CLOPIDOGREL BISULFATE 75 MG TABLET PO (09:37)
[2025-02-21] MEDS: ASPIRIN 81 MG CHEWABLE TABLET PO (09:37)
[2025-02-21] MEDS: prednisoLONE ACETATE 1% OPHTH 5 ML 1 DROP LEFT EYE ×2 (09:40→13:11)
--- NOTE | 2025-02-21 13:32 | PC.NURSE ---
Patient off of unit to dialysis
--- NOTE | 2025-02-21 15:16 | P.PNNP_ITS ---
Progress Note: A&P Assessment and Plan (1) End stage renal disease: Code(s): N18.6 - End stage renal disease Status: Chronic Assessment and Plan: * HD today * continue //Tue dialysis schedule while hospitalized * follow electrolytes, volume status, and clearance (2) Acute hypoxic respiratory failure: Code(s): J96.01 - Acute respiratory failure with hypoxia Status: Acute Assessment and Plan: * resolving/resolved * felt to be secondary to pneumonia and possibly fluid/pulmonary vascular congestion * was on 3L on admission -- weaned to 2L at this time * continue current therapy (antibiotics + ultrafiltration) * continue to wean O2 as tolerated (3) Pneumonia: Code(s): J18.9 - Pneumonia, unspecified organism Status: Acute Assessment and Plan: * as noted by admission imaging * cultures negative to date * MBS with no evidence of aspiration * on antibiotics * more aggressive fluid removal today given last CXR findings (4) Confusion: Onset Date: Unknown Code(s): R41.0 - Disorientation, unspecified Status: Acute Assessment and Plan: * resolved * noted in the last few days (and continues to fluctuate) * likely secondary to infection/acute illness and possibly hypoxia * continue to monitor (5) Chronic combined systolic and diastolic CHF (congestive heart failure): Code(s): I50.42 - Chronic combined systolic (congestive) and diastolic (congestive) heart failure Status: Chronic Assessment and Plan: * as noted by last Echo * continue fluid removal/ultrafiltration to maintain euvolemia as tolerated by hemodynamics * elevated troponins noted on admission...felt to be related to early sepsis/fevers in conjunction with pneumonia * continue supportive therapy (6) Anemia: Qualifiers: Anemia type: due to chronic kidney disease Chronic kidney disease stage: stage 5, not on chronic dialysis Qualified Code(s): N18.5 - Chronic kidney disease, stage 5; D63.1 - Anemia in chronic kidney disease Code(s): D64.9 - Anemia, unspecified Status: Chronic Assessment and Plan: * related to ESRD and acute illness * Epogen/MAYA with dialysis * follow trend of H/H (7) Hypertension: Qualifiers: Hypertension type: unspecified Qualified Code(s): I10 - Essential (primary) hypertension Code(s): I10 - Essential (primary) hypertension Status: Chronic Assessment and Plan: * BP initially on hold on admission * slow re-introduce home BP medications given rising blood pressure * follow trend of hemodynamics (8) Diabetes: Code(s): E11.9 - Type 2 diabetes mellitus without complications Status: Chronic Assessment and Plan: * follow accu-cheks * glycemic control per hospitalist Not opposed to discharge from renal perspective if otherwise medically stable -- Dr. Johnson will continue to follow him at his outpatient dialysis center. Will continue to follow. L Subjective Date/time seen: 02/21/25 15:16 Interval history: Follow-up for end stage renal disease on hemodialysis. Tolerating dialysis treatment at the time of my visit (seen on HD at 3:05PM); weaned off supplemental oxygen with stable O2 saturations; no apparent distress voiced when seen, no other issues/events overnight or earlier this morning. Exam 2 Narrative: General: WD/WN male in NAD Heart: normal S1 and S2; no rub Lungs: coarse with bibasilar crackles noted Abdomen: soft, nontender, nondistended, positive bowel sounds Extremities: no cyanosis or clubbing; no edema; s/p right BKA Skin: warm and intact Objective Data Vital Signs Vital Signs: Vital Signs Temp Pulse Resp BP Pulse Ox O2 Del Method FiO2 02/21/25 15:15 85 123/82 02/21/25 15:00 84 130/83 02/21/25 14:45 85 116/77 02/21/25 14:30 76 122/76 02/21/25 14:15 71 130/79 02/21/25 14:00 66 169/80 H 02/21/25 13:52 69 176/87 H 02/21/25 13:40 97.7 F 72 16 171/86 H 97 02/21/25 09:40 Room Air 02/21/25 09:37 90 02/21/25 07:58 86 18 02/21/25 07:48 81 18 02/21/25 07:48 97 Room Air 02/21/25 06:00 96.0 F L 80 18 156/85 H 93 02/21/25 01:12 80 20 02/21/25 01:11 80 20 93 Room Air 21 02/20/25 23:42 98.2 F 92 16 139/73 95 02/20/25 20:00 Room Air 02/20/25 19:34 80 20 02/20/25 19:26 80 20 93 Room Air 21 02/20/25 19:24 83 20 02/20/25 18:45 94 Room Air Intake/Output Intake/Output: Intake & Output 02/18/25 02/19/25 02/20/25 02/21/25 23:59 23:59 23:59 23:59 Intake Total 1200 910 220 480 Output Total 0 1000 0 2500 Balance 1200 -90 Meds/Results Medications: Active Medications Generic Name Dose Route Start Last Admin Trade Name Freq PRN Reason Stop Dose Admin Acetaminophen 650 mg 02/16/25 19:43 02/19/25 21:10 Acetaminophen 325 Mg Tablet PO 650 mg Q4H PRN Administration Mild Pain (1-3) or Fever Albuterol/Ipratropium 3 ml 02/17/25 20:00 02/21/25 14:21 Ipratropium 0.5 Mg/Albuterol Sulfate 2.5 Mg Ampul.Neb 3 Ml INHALATION Not Given Q6HRT GEE Amoxicillin/Clavulanate Potassium 1 tablet 02/20/25 19:00 02/21/25 09:37 Amoxicillin/Clavulanate K 500-125 Mg Tab PO 02/23/25 09:01 1 tablet Q12HR GEE Administration Artificial Tears 1 drop 02/18/25 11:05 02/19/25 09:19 Artificial Tears Ophth Soln 15 Ml Bottle EACH EYE 1 drop QID PRN Administration Dry Eye(s) Aspirin 81 mg 02/18/25 08:00 02/21/25 09:37 Aspirin 81 Mg Chewable Tablet PO 81 mg DAILY@0800 GEE Administration Atorvastatin Calcium 40 mg 02/18/25 09:00 02/21/25 09:37 Atorvastatin 40 Mg Tablet PO 40 mg DAILY GEE Administration Bumetanide 1 mg 02/20/25 17:00 02/21/25 17:12 Bumetanide 1 Mg Tablet PO Not Given BID EGE Clopidogrel Bisulfate 75 mg 02/18/25 09:00 02/21/25 09:37 Clopidogrel Bisulfate 75 Mg Tablet PO 75 mg DAILY GEE Administration Dextrose 12.5 gm 02/17/25 02:48 Dextrose 50% 25 Gm/50 Ml Syringe IV PUSH PRN PRN Hypoglycemia Protocol Gabapentin 100 mg 02/18/25 21:00 02/20/25 20:42 Gabapentin 100 Mg Capsule PO 100 mg QHS GEE Administration Glucagon 1 mg 02/17/25 02:48 Glucagon For Inj 1 Mg Vial IM PRN PRN Hypoglycemia Protocol Glucose 15 gm 02/17/25 02:48 Glucose Oral Gel 15 Gm Of Glucse In 37.5 Gm Tube PO PRN PRN Hypoglycemia Protocol Guaifenesin 1,200 mg 02/17/25 09:00 02/21/25 09:37 Guaifenesin 12 Hr 600 Mg Tabcr PO 1,200 mg Q12HR GEE Administration Heparin Sodium (Porcine) 5,000 units 02/17/25 09:00 02/21/25 09:37 Heparin Sodium 5,000 Units/Ml Vial SUB-Q 5,000 units Q12HR GEE Administration Dextrose 1,000 mls @ 100 mls/hr 02/17/25 02:48 Dextrose 5% 1,000 Ml IVPB PRN PRN Hypoglycemia Protocol Albumin Human 50 mls @ 999 mls/hr 02/19/25 10:17 Albutein IVPB 03/21/25 10:16 Q10M PRN HYPOTENSION Insulin Aspart 3 - 6 units 02/17/25 08:00 02/21/25 17:12 Insulin Aspart (*Bkc) 100 Units/Ml SUB-Q Not Given TIDWM [facility] Protocol Insulin Aspart 1 - 3 units 02/17/25 21:00 02/20/25 20:53 Insulin Aspart (*Bkc) 100 Units/Ml SUB-Q Not Given HS [facility] Protocol Insulin Glargine 10 units 02/20/25 21:00 02/20/25 20:49 Insulin Glargine (*Bkc) 100 Units/Ml SUB-Q 10 units HS GEE Administration Lisinopril 20 mg 02/20/25 12:35 02/21/25 09:37 Lisinopril 20 Mg Tablet PO 20 mg QAM GEE Administration Melatonin 5 mg 02/20/25 21:00 02/20/25 20:42 Melatonin 5 Mg Tablet PO 5 mg HS GEE Administration Metoprolol Tartrate 25 mg 02/18/25 21:00 02/21/25 09:37 Metoprolol Tartrate 25 Mg Tablet PO 25 mg Q12HR GEE Administration Ondansetron HCl 4 mg 02/16/25 19:43 Ondansetron Inj 4 Mg/2 Ml Vial IV PUSH Q4H PRN Nausea Prednisolone Acetate 1 drop 02/20/25 13:00 02/21/25 17:12 Prednisolone Acetate 1% Ophth 5 Ml LEFT EYE Not Given QID GEE Sertraline HCl 25 mg 02/18/25 09:00 02/21/25 09:37 Sertraline Hcl 25 Mg Tablet PO 25 mg DAILY GEE Administration Simethicone 125 mg 02/20/25 12:32 Simethicone 125 Mg Chew Tab PO QID PRN abdominal distention Radiology Results: ITS Impressions Chest/Abdomen/Pelvis CT 02/16/25 16:03 IMPRESSION: Subsegmental right middle lobe consolidation with bilateral lower lobe tree-in-bud opacities, may represent infection, including atypical infection. Aspiration could also be considered in the differential. Mediastinal lymphadenopathy. Bladder wall thickening, may be secondary to incomplete distention or chronic outlet compromise. Correlate with urinalysis. Chronic appearing coccygeal findings, chronic or recurrent osteomyelitis not excluded. Correlate for clinical evidence of recurrent decubitus ulcer. Modified Barium Swallow 02/18/25 14:05 IMPRESSION: As above. Chest X-Ray 02/20/25 13:51 IMPRESSION: Mild pulmonary vascular congestion with a small right-sided pleural effusion. No focal infiltrate. Labs Labs: Laboratory Tests 02/21/25 05:31 02/21/25 05:31 Calcium 9.0 Phosphorus 6.6 H Albumin 3.7
--- NOTE | 2025-02-21 15:59 | P.DS_ITS ---
DS: Admitting Diagnosis Discharge Date 02/21/25 Admitting Diagnosis Fever DS: Discharge Diagnosis Discharge Diagnosis (1) Sepsis: Code(s): A41.9 - Sepsis, unspecified organism Status: Acute (2) Pneumonia: Code(s): J18.9 - Pneumonia, unspecified organism Status: Acute (3) End-stage renal disease on hemodialysis: Code(s): N18.6 - End stage renal disease; Z99.2 - Dependence on renal dialysis Status: Acute (4) Combined systolic and diastolic congestive heart failure: Code(s): I50.40 - Unspecified combined systolic (congestive) and diastolic (congestive) heart failure Status: Chronic (5) Anemia in chronic illness: Code(s): D63.8 - Anemia in other chronic diseases classified elsewhere Status: Acute (6) Insulin dependent diabetes mellitus: Status: Chronic DS: Summary Hospital Course Reason for hospitalization: 49yo male with ESRD, CHF, and DM here for fever and cough. Please see H&P for details. Hospital Course: Sepsis - Met criteria with related hypotension, fever, tachycardia, tachypnea, leukocytosis and elevated lactic acid level. Blood culture no growth to date. MRSA nasal swab negative. [place] relate to PNA. Hypoxic resp failure Was on 3L on admission but able to be weaned to room air. Pneumonia - CT Ch/A/P - Subsegmental right middle lobe consolidation with bilateral lower lobe tree-in-bud opacities, may represent infection, including atypical infection. Aspiration could also be considered in the differential. Treated with cefepime, doxycycline and vancomycin. Antibiotics switched to Augmentin and doxycycline. MBS performed showing no aspiration Weaned to room air. Fevers resolved. Repeat CXR showing mild pulmonary congestion and small right pleural effusion (due for HD today) Elevated lactate - as above Elevated troponin - Flat trend 0.070-0.07 6-0.056 [place] demand ischemia related to the fever. Possible UTI - UA with 11-20 WBC but UCx negative. UTI ruled out. ESRD - on hemodialysis Tuesday Tolerated HD here Nephrology following PAD - s/p Rt BKA Continue Lipitor and ASA CHF - Patient with chronic diastolic CHF. Contineu HD to control fluid status. Chronic anemia Hemoglobin is stable on review of previous labs. Type 2 diabetes The patient's blood glucose was monitored with AccuCheks covering with sliding scale. Hypoglycemia protocol available as needed. Added back half dose of his Lantus HTN Multiple home anti-HTN meds have been held. Continue metoprolol. Added back Bumex and lisinopril. Also on Lasix but will not resume this at discharge since this is redundent. He overall did well and was able to be discharged on 02/21/25. Status at Discharge Cognitive/behavioral status at discharge: stable Time Spent with Patient Time attestation: Total time spent providing and/or coordinating discharge services: 35 minutes Time spent: Greater than 30 minutes Exam Narrative: AF 97.7 125/85 80 16 97% RA Gen - NARD Chest - R>L bibasilar crackles, nml RR. Right upper chest HD catheter in situ CV - RRR S1/S2 Abd - Soft, NT/ND, Positive BS Ext - No left pedal edema. Rt BKA. Neuro - Alert and appropriate Psych - normal mood and affect Skin - < dime sized shallow ulcer near the BKA stump. DS: Data Data Completed and Pending Labs on day of discharge: Labs from last 24 hours 02/21/25 02/21/25 02/21/25 11:53 08:08 05:31 WBC 12.5 H RBC 3.22 L Hgb 9.4 L Hct 30.8 L MCV 95.7 MCH 29.2 MCHC 30.5 L RDW 13.7 Plt Count 268 MPV 11.0 H Immature Gran % (Auto) 4.3 H Neut % (Auto) 75.3 H Lymph % (Auto) 7.8 L [place] % (Auto) 6.5 Eos % (Auto) 5.5 H Baso % (Auto) 0.6 Lymph # (Auto) 0.97 [place] # (Auto) 0.8 H Eos # (Auto) 0.7 H Baso # (Auto) 0.1 Abs Immat Gran (auto) 0.53 H Absolute Neuts (auto) 9.4 H Absolute Nucleated RBC 0.000 Nucleated RBC % 0.0 Sodium 137 Potassium 4.1 Chloride 101 Carbon Dioxide 21 L Anion Gap 15 H BUN 47 H D Creatinine 8.45 H Estim Creat Clear Calc 10 Estimated GFR 7 L Glucose 134 H POC Capillary Glucose 197 H 125 H Calcium 9.0 Phosphorus 6.6 H Albumin 3.7 02/20/25 02/20/25 20:25 16:45 WBC RBC Hgb Hct MCV MCH MCHC RDW Plt Count MPV Immature Gran % (Auto) Neut % (Auto) Lymph % (Auto) [place] % (Auto) Eos % (Auto) Baso % (Auto) Lymph # (Auto) [place] # (Auto) Eos # (Auto) Baso # (Auto) Abs Immat Gran (auto) Absolute Neuts (auto) Absolute Nucleated RBC Nucleated RBC % Sodium Potassium Chloride Carbon Dioxide Anion Gap BUN Creatinine Estim Creat Clear Calc Estimated GFR Glucose POC Capillary Glucose 159 H 160 H Calcium Phosphorus Albumin Preliminary micro results at discharge 02/16/25 16:41 Blood Culture - Preliminary Blood 02/16/25 13:55 Blood Culture - Preliminary Blood Discharge Plan Discharge Attending physician on discharge: Pablo Aguilar Consulting providers: Mathieu Conti Discharging Clinician: Pablo Aguilar Anticipated Discharge Date/Time: 02/21/25 16:11 Patient Disposition: [facility] Activity: as tolerated Diet: diabetic, renal and other - see discharge instructions Discharge Instructions: Renal, diabetic level 6 soft and bite sized diet. Please check glucose before meals and before bed. Record for the doctor's review. Check blood pressure 1 to 2 times a day. Record for the doctor's review. Take precautions to avoid falls. Rise slowly from a lying or sitting position. Contact the doctor if the patient has any lightheadedness or other worrisome symptoms. Avoid NSAIDs (ibuprofen, naproxen, Aleve). Tylenol is safe to take. Continue Dialysis schedule Follow-up with the provider at the facility. Follow-up with Nephrology as previously scheduled. Thank you for using [facility] for your health care needs. Patient Instructions: Antibiotic Form Patient Language: Slovak Stand Alone Forms: General Discharge Information Follow-up/Referrals: Debbie Mancini [Other] - Call for Appointment Mathieu Conti MD [Physician] - Call for Appointment Discharge Medications: New amoxicillin-pot clavulanate [Augmentin] 500-125 mg Tablet 1 tablet PO Q12HR Qty: 4 0RF metoprolol tartrate 25 mg Tablet 25 mg PO Q12HR Qty: 60 0RF Continued atorvastatin 40 mg Tablet 40 mg PO DAILY Qty: 30 0RF lisinopril 20 mg Tablet 20 mg PO QAM Qty: 30 0RF aspirin [Children's Aspirin] 81 mg Tablet,Chewable 81 mg PO DAILY@0800 Qty: 30 0RF bumetanide 1 mg Tablet 1 mg PO BID Qty: 60 0RF clopidogrel 75 mg tablet 75 mg PO DAILY gabapentin 100 mg capsule 100 mg PO QHS prednisolone acetate 1 % drops,suspension 1 drp LEFT EYE QID simethicone [Gas Relief Extra Strength] 125 mg tablet,chewable 125 mg PO QID PRN (Reason: abdominal distention) sertraline 25 mg tablet 25 mg PO DAILY acetaminophen 325 mg tablet 650 mg PO Q6H PRN (Reason: fever or pain) melatonin 5 mg tablet 5 mg PO HS Changed insulin glargine [Lantus Solostar U-100 Insulin] 100 unit/mL (3 mL) Insulin Pen 10 unit SUBCUT HS Qty: 1 0RF Held amlodipine 10 mg tablet 10 mg PO DAILY Hold Instructions: Hold and resume when okay with provider. isosorbide mononitrate 60 mg tablet extended release 24 hr 60 mg PO PRN PRN (Reason: Hypertension) Hold Instructions: Hold and resume when okay with provider. insulin lispro 100 unit/mL solution 12 unit subcut TIDWMEAL Hold Instructions: Hold and resume when okay with provider. Discontinued furosemide 40 mg Tablet 40 mg PO MOWEFR Qty: 30 0RF metoprolol ta-hydrochlorothiaz See Rx Instructions .ROUTE .COMPLEX Rx Instructions: takes 50-25 mg 1 tab PO BID Date of admission: 02/18/25 14:46 Primary Care Provider: Debbie Mancini Admitting Provider: Lakhwinder Naylor Attending physician on admission: Lakhwinder Naylor Condition: Stable Hospitalist MIPS Heart Failure (Exclusion) Patient has history of Heart Transplant or Left Ventricular Assistive Device?: No IF YES, STOP HERE Heart Failure (Qualifier) Patient has current or prior documentation of LVEF less than or equal to 40%, or mod/servere depressed LVSF?: No IF NO, STOP HERE
[2025-02-21] MEDS: EPOETIN ALFA-EPBX 10,000 UNITS/ML VIAL 10000 UNITS IV PUSH (16:50)
[2025-02-21 21:02] LABS: Mycoplasma IgM Antibody Titer. 138 U/mL
== END 2025-02-21 20:00 | DRG 720 ==
LOC: ANHED 19:43 → ANHIMU 20:52 → ANH3MED 02-21 16:06 → ANHIMU 02-25 13:38
PROVIDERS: Emergency Medicine; Hospitalist; Internal Medicine; Internal Medicine Nephrology; Physician Assistant; Admitting Provider Internal Medicine; Emergency Provider Student in an Organized Health Care Education/Training Program; Visit Provider Internal Medicine
DX: A41.9 Sepsis, unspecified organism (principal); J18.9 Pneumonia, unspecified organism; J96.01 Acute respiratory failure with hypoxia; I13.2 Hypertensive heart and chronic kidney disease with heart failure and with stage 5 chronic kidney disease, or end stage renal disease; N18.6 End stage renal disease; I50.42 Chronic combined systolic (congestive) and diastolic (congestive) heart failure; I34.0 Nonrheumatic mitral (valve) insufficiency; I25.5 Ischemic cardiomyopathy; E11.22 Type 2 diabetes mellitus with diabetic chronic kidney disease; E11.51 Type 2 diabetes mellitus with diabetic peripheral angiopathy without gangrene; D63.8 Anemia in other chronic diseases classified elsewhere; N02.B1 Recurrent and persistent immunoglobulin A nephropathy with glomerular lesion; N25.0 Renal osteodystrophy; K57.30 Diverticulosis of large intestine without perforation or abscess without bleeding; Z20.822 Contact with and (suspected) exposure to COVID-19; Z99.2 Dependence on renal dialysis; Z79.4 Long term (current) use of insulin; Z79.82 Long term (current) use of aspirin; Z89.511 Acquired absence of right leg below knee
CPT/HCPCS: 36415; 71045; 71046; 71250; 74176; 74230; 80048; 80053; 80069; 80202; 81001; 82948; 83036; 83605; 83690; 83735; 84100; 84484; 85025; 85027; 85610; 85730; 86140; 86308; 86706; 86738; 87040; 87086; 87340; 87637; 87641; 87651; 92610; 92611; 93005; 94640; 94667; 94668; 94762; 96365; 96366; 96367; 99212; 99285; A9270; G0257; G0378; G0379; G0463; J0692; J1644; J1815; J3370; J7030; J7120; Q5105